=== PATIENT | female | born 1950 | race Caucasian/White ===

== ENCOUNTER 2016-04-22 09:48 | Emergency (ER) | payer BC ==
[~2016-04-22] VITALS: Ht 162.6 cm; Wt 137.8 kg
[~2016-04-22 09:48] MED LIST: ACET650T82 PO; ALBU0.08 INH; ALBU1AER9 INH; ARTIOIN2; ATOR-24 PO; CERTKIT SC; CHOL1TAB42 PO; CYAN100028 PO; DICL1GEL28 EXT; FENO145T26 PO; FERR325T51 PO; FLUT0.15 NAE; GABA1CAP5 PO; HYDR200T5 PO; INSDGI SC; LATA0.009 OPB; METHOTREXATE SC; POTA1TAB97 PO; TIMO0.5S2 OPB; TRAM-10 PO
[2016-04-22 09:55] VITALS: Ht 162.6 cm; Wt 137.8 kg
[2016-04-22] MEDS ORDERED: ONDANSETRON INJ 2 MG/ML 2 ML VIAL IV STA (10:02)
[2016-04-22] MEDS ORDERED: ALBUT/IPRATROP 3MG/0.5MG NEB 3 ML VIAL INH STA (10:02)
[2016-04-22 10:15] LABS: BASO % 0.5 %; BASO ABS # 0.03 K/uL (0-0.2); COMPLETE YES; EOS % 0.9 %; HEMATOCRIT 38.8 % (37-47); IG% 0.8 %; LYMPH % 7.4 %; LYMPH ABS # 0.47 K/uL (1.2-3.4); MEAN CELL VOLUME 92.2 fL (80-100); MEAN CORPUSCULAR HEMOGLOBIN 30.9 pg (25-34); MEAN CORPUSCULAR HGB CONC 33.5 g/dl (32-36); MEAN PLATELET VOLUME 10.1 fL (7.4-10.4); MONO % 15.3 %; NEUT % 75.1 %; PLATELET COUNT 148 K/uL (130-400); RED BLOOD COUNT 4.21 M/uL (4.2-5.4); WHITE BLOOD COUNT 6.35 K/uL (4.8-10.8)
[2016-04-22 10:30] LABS: PARTIAL THROMBOPLASTIN RATIO 1.2; PROTHROMBIN TIME (PATIENT) 10.8 SECONDS (9.0-12.0)
[2016-04-22 10:33] LABS: BLOOD UREA NITROGEN 14 mg/dl (7-18); GLUCOSE 176 mg/dl (70-99)
[2016-04-22 10:34] LABS: ALT/SGPT 28 U/L (12-78); AST/SGOT 18 U/L (15-37); BUN/CREATININE RATIO 14.6 (10-20); CALCIUM 9.1 mg/dl (8.5-10.1); CARBON DIOXIDE 26 mmol/L (21-32); CHLORIDE 101 mmol/L (98-107); CREATININE 0.97 mg/dl (0.60-1.20); POTASSIUM 3.7 mmol/L (3.5-5.1); SODIUM 137 mmol/L (136-145)
[2016-04-22 10:38] LABS: ALKALINE PHOSPHATASE 50 U/L (45-117)
--- NOTE | 2016-04-22 11:27 | DIAGNOSTIC IMAGING REPORT ---
CHEST AND ABDOMEN 2 VIEWS HISTORY: Vomiting. Short of breath. COMPARISON: Chest 03/20/2013. FINDINGS: The heart is mildly enlarged. There is progressive interstitial and vascular thickening consistent with mild congestive change. No pleural effusions. No pneumothorax. No new focal lung consolidations. No pneumoperitoneum. No pneumatosis. Surgical clips within the right upper quadrant. Multiple mildly dilated air-filled loops of large small bowel seen throughout the abdomen. There is a small amount of gas within the rectum. Therefore, these findings favor an ileus. No renal or ureteral calculi. Gas-filled mildly distended stomach. IMPRESSION: 1. Mild cardiomegaly with mild central pulmonary vascular congestion. 2. Multiple mildly dilated air-filled loops of large and small bowel seen throughout the abdomen. The stomach is also mildly distended and gas-filled. Findings favor an ileus. Electronically signed by: Nathan Bonilla M.D. 04/22/2016 11:25 AM Dictated Date/Time: 04/22/2016 11:23 AM
[2016-04-22 11:40] VITALS: O2SAT 95
[2016-04-22] MEDS ORDERED: OSELTAMIVIR PHOSPHATE 75 MG CAP PO STA (12:43)
[2016-04-22] MEDS ORDERED: OSEL75CA12 PO (12:47)
[2016-04-22] MEDS ORDERED: VNTHFA/IN INH (12:47)
[2016-04-22] MEDS ORDERED: ONDA4TAB10 SL (12:47)
[2016-04-22 12:48] VITALS: TEMP 37
[2016-04-22 13:24] VITALS: BP 144/68; PULSE 71; O2SAT 95
--- NOTE | 2016-04-22 13:27 | EMERGENCY ROOM VISIT NOTE ---
History Report prepared by Jeremy: Fannie Smalls Under the Supervision of: Dr. Srini Pedraza D.O. First contact with patient: 09:56 Chief Complaint: SHORTNESS OF BREATH Stated Complaint: SHORTNESS OF BREATH History of Present Illness The patient is a 66 year old female who presents to the Emergency Room with complaints of increased cough and shortness of breath since yesterday. Currently , while sitting up right, the patient is in mild discomfort, however, her symptoms become worse with exertion and when attempting to lay flat. Since the time of onset, the patient has also felt nauseous and vomited several times yesterday. She has not been able to eat anything secondary to her discomfort, however, she has continued to dry heave today. Patient also notes perceived fevers and states that she has had increased frequency of urination, but she denies dysuria or hematuria. She states that she was experiencing mild, nonradiating chest pain last evening, but it has since resolved. Patient notes that her has recently been ill with similar symptoms, but not as severe. She denies headache, sore throat, back pain, abdominal pain, diarrhea, melena, hematochezia, numbness or swelling to her extremities. Source of History: patient Onset: yesterday Position: chest Symptom Intensity: mild Quality: other (cough) Timing: other (increased) Modifying Factors (Worsening): exertion, other (laying flat) Associated Symptoms: + SOB, + chest pain (now resolved), + cough, + fevers, + nausea, + urinary symptoms, + vomiting, No abdominal pain, No back pain, No diarrhea, No headache, No hematochezia, No melena, No sorethroat Review of Systems See HPI for pertinent positives & negatives. A total of 10 systems reviewed and were otherwise negative. Past Medical & Surgical Medical Problems: (1) ACUTE PANCREATITIS (2) BODY MASS INDEX 39.0-39.9, ADULT (3) Chronic kidney disease stage 3 (4) DIAB RADHA WO COMPL, TYPE II OR UNSPEC TYPE, NOT UNCNTRLD (5) Diabetic neuropathy (6) Diabetic retinopathy (7) Goiter (8) HYPERLIPIDEMIA NEC/NOS (9) HYPERTENSION NOS (10) Iron deficiency anemia (11) LUMBAR DISC DISPLACEMENT (12) Lymphedema (13) Papillary thyroid carcinoma (14) PNEUMONIA, ORGANISM NOS (15) Posterior vitreous detachment (16) Rheumatoid arthritis (17) s/p appendectomy (18) s/p cataract surgery (19) s/p cholecystectomy (20) s/p MARLIN / BSO (21) URIN TRACT INFECTION NOS Social History Smoking Status: Never Smoker Drug Use: none Marital Status: Housing Status: lives with family Occupation Status: disabled Current/Historical Medications Scheduled Albuterol Hfa (Ventolin Hfa), 1 PUFF INH Q4 Amitriptyline Hcl (Elavil), 75 MG PO HS Artificial Tear Ointment (Refresh Lacri-Lube), UD Aspirin (Aspirin Ec), 81 MG PO HS Aspirin-Dipyridamole 25MG/200MG (Aggrenox 200MG/25MG), 1 CAPSULE PO BID Atorvastatin (Lipitor), 40 MG PO HS Brimonidine Tartrate (Alphagan P Oph), 1 DROPS OPB BID Certolizumab Pegol (Cimzia), 2 ML SC EVERY 30 DAYS Cholecalciferol (Vitamin D), 1 TAB PO WK Cyanocobalamin (Vitamin B12 Tr), 1,500 MCG PO QPM Estrogens, Conjugated (Premarin), 0.45 MG PO QAM Fenofibrate (Tricor ), 145 MG PO QAM Ferrous Sulfate (Iron Supplement), 1 TAB PO QAM Gabapentin (Neurontin), 400 MG PO TID Hydroxychloroquine Sulfate (Plaquenil), 2 TAB PO HS Insulin Glargine (Lantus), 80 UNITS SC BID Insulin Lispro (Human) (Humalog), 1 DOSE SC TID Latanoprost 0.005% Oph (Xalatan 0.005% Oph), 1 DROP OPB HS Levothyroxine Sodium (Levothyroxine Sodium), 1 TAB PO QAM Multivitamin (Multivitamin), 1 TAB PO DAILY AT LUNCH Nitroglycerin (Nitrostat), 0.4 MG UT PRN Omeprazole (Prilosec), 20 MG PO QAM Ondasetron Odt (Zofran Odt), 4 MG SL Q6H Oseltamivir (Tamiflu), 75 MG PO BID Pancrelipase (Lipase-Protease- (Creon), 1 CAP PO ACHS Potassium Chloride (K-Tab), 1 TAB PO BID Timolol Gfs 0.5% Oph (Timoptic-Xe 0.5% Oph), 1 DROP OPB BID Torsemide (Demadex), 2 TAB PO QAM [Methotrexate], 0.6 ML SC WK Scheduled PRN Acetaminophen (Tylenol Arthritis Pain), 650 MG PO UD PRN for PRN Albuterol (Proair Hfa), 2 PUFFS INH QID PRN for Shortness of Breath Albuterol Soln (Proventil 0.083% 2.5MG/3ML), 2.5 MG INH QID PRN for Shortness of Breath Artificial Saliva (Biotene Moisturizing Mout), 1 SPRAY PO QID PRN for PRN Fluticasone Propionate (Nasal) (Flonase Allergy Relief), 2 SPRAY HANSA DAILY PRN for PRN Ipratropium-Albuterol (Duoneb), 1 TREATMENT INH Q4H PRN for Shortness of Breath Lorazepam (Ativan), 0.5 MG PO TID PRN for Anxiety Meclizine Hcl (Meclizine Hcl), 1 TAB PO TID PRN for Dizziness or Vertigo Allergies Coded Allergies: Sulfa Drugs (Verified Allergy, Intermediate, RASH, 04/22/16) RASH Butorphanol (Unverified Allergy, Mild, RAPID HEART, 04/22/16) Sulfamethoxazole (Unverified Allergy, Mild, 04/22/16) Trimethoprim (Unverified Allergy, Mild, 04/22/16) Cephalexin (Unverified Allergy, Unknown, EDEMA, 04/22/16) Cephalosporins (Verified Allergy, Unknown, CECLOR, 04/22/16) Physical Exam Vital Signs Date Time Temp Pulse Resp B/P Pulse Ox O2 Delivery O2 Flow Rate FiO2 04/22/16 13:24 71 18 144/68 95 04/22/16 12:48 37.0 72 16 139/65 97 Room Air 04/22/16 11:40 95 2.0 04/22/16 11:26 77 19 165/72 92 Room Air 04/22/16 10:43 72 04/22/16 10:07 92 Room Air 04/22/16 10:07 92 Room Air 04/22/16 09:55 37.2 79 24 150/89 92 Room Air 04/22/16 09:55 92 Room Air Physical Exam GENERAL: Patient is awake, alert, and mildly anxious appearing. EARS, NOSE, MOUTH AND THROAT: The nose is without any evidence of any deformity. Mucous membranes are moist tongue is midline NECK: The neck is nontender and supple. RESPIRATORY: Lung sounds diminished throughout. Scattered rhonchi but no conversational dyspnea. CARDIOVASCULAR: Regular rate and rhythm noted there no murmurs rubs or gallops normal S1 normal S2 GASTROINTESTINAL: The abdomen is moderately distended but no specific guarding or rigidity. Bowel sounds are present in all quadrants. MUSCULOSKELETAL/EXTREMITIES: There is no evidence of gross deformity full range of motion is noted in the hips and shoulders SKIN: There is no obvious evidence of any rash. There are no petechiae, pallor or cyanosis noted. Trace pedal edema, bilaterally. NEUROLOGIC: Patient is awake alert and oriented x3. Medical Decision & Procedures ER Provider Diagnostic Interpretation: X-ray results as stated below per interpretation by me and the radiologist. CHEST AND ABDOMEN 2 VIEWS HISTORY: Vomiting. Short of breath. COMPARISON: Chest 03/20/2013. FINDINGS: The heart is mildly enlarged. There is progressive interstitial and vascular thickening consistent with mild congestive change. No pleural effusions. No pneumothorax. No new focal lung consolidations. No pneumoperitoneum. No pneumatosis. Surgical clips within the right upper quadrant. Multiple mildly dilated air-filled loops of large small bowel seen throughout the abdomen. There is a small amount of gas within the rectum. Therefore, these findings favor an ileus. No renal or ureteral calculi. Gas-filled mildly distended stomach. IMPRESSION: 1. Mild cardiomegaly with mild central pulmonary vascular congestion. 2. Multiple mildly dilated air-filled loops of large and small bowel seen throughout the abdomen. The stomach is also mildly distended and gas-filled. Findings favor an ileus. Electronically signed by: Nathan Bonilla M.D. 04/22/2016 11:25 AM Dictated Date/Time: 04/22/2016 11:23 AM Laboratory Results 04/22/16 10:00 Red Blood Count 4.21, Mean Corpuscular Volume 92.2, Mean Corpuscular Hemoglobin 30.9, Mean Corpuscular Hemoglobin Concent 33.5, Mean Platelet Volume 10.1, Neutrophils (%) (Auto) 75.1, Lymphocytes (%) (Auto) 7.4, Monocytes (%) (Auto) 15.3, Eosinophils (%) (Auto) 0.9, Basophils (%) (Auto) 0.5, Neutrophils # (Auto ) 4.77, Lymphocytes # (Auto) 0.47, Monocytes # (Auto) 0.97, Eosinophils # (Auto ) 0.06, Basophils # (Auto) 0.03 04/22/16 10:00 Test 04/22/16 10:00 04/22/16 10:05 White Blood Count 6.35 K/uL (4.8-10.8) Red Blood Count 4.21 M/uL (4.2-5.4) Hemoglobin 13.0 g/dL (12.0-16.0) Hematocrit 38.8 % (37-47) Mean Corpuscular Volume 92.2 fL (80-100) Mean Corpuscular Hemoglobin 30.9 pg (25-34) Mean Corpuscular Hemoglobin Concent 33.5 g/dl (32-36) Platelet Count 148 K/uL (130-400) Mean Platelet Volume 10.1 fL (7.4-10.4) Neutrophils (%) (Auto) 75.1 % Lymphocytes (%) (Auto) 7.4 % Monocytes (%) (Auto) 15.3 % Eosinophils (%) (Auto) 0.9 % Basophils (%) (Auto) 0.5 % Neutrophils # (Auto) 4.77 K/uL (1.4-6.5) Lymphocytes # (Auto) 0.47 K/uL (1.2-3.4) Monocytes # (Auto) 0.97 K/uL (0.11-0.59) Eosinophils # (Auto) 0.06 K/uL (0-0.5) Basophils # (Auto) 0.03 K/uL (0-0.2) RDW Standard Deviation 46.2 fL (36.4-46.3) RDW Coefficient of Variation 13.7 % (11.5-14.5) Immature Granulocyte % (Auto) 0.8 % Immature Granulocyte # (Auto) 0.05 K/uL (0.00-0.02) Prothrombin Time 10.8 SECONDS (9.0-12.0) Prothromb Time International Ratio 1.0 (0.9-1.1) Activated Partial Thromboplast Time 30.1 SECONDS (21.0-31.0) Partial Thromboplastin Ratio 1.2 Anion Gap 10.0 mmol/L (3-11) Est Creatinine Clear Calc Drug Dose 79.2 ml/min Estimated GFR () 70.5 Estimated GFR (Non- 60.9 BUN/Creatinine Ratio 14.6 (10-20) Calcium Level 9.1 mg/dl (8.5-10.1) Total Bilirubin 0.4 mg/dl (0.2-1) Aspartate Amino Transf (AST/SGOT) 18 U/L (15-37) Alanine Aminotransferase (ALT/SGPT) 28 U/L (12-78) Alkaline Phosphatase 50 U/L (45-117) Troponin I < 0.015 ng/ml (0-0.045) Pro-B-Type Natriuretic Peptide 619 pg/ml (0-900) Total Protein 6.9 gm/dl (6.4-8.2) Albumin 3.5 gm/dl (3.4-5.0) Globulin 3.4 gm/dl (2.5-4.0) Albumin/Globulin Ratio 1.0 (0.9-2) Influenza Type A Antigen POS for Influ A (NEG) Influenza Type B Antigen Neg for Influ B (NEG) Bedside Lactic Acid Venous 1.08 mmol/L (0.90-1.70) Laboratory results per my review. Medications Administered Medications (Trade) Dose Ordered Sig/Travis Route Start Time Stop Time Status Last Admin Dose Admin Ondansetron HCl (Zofran Inj) 4 mg NOW STAT IV 04/22/16 10:02 04/22/16 10:03 DC 04/22/16 10:18 4 MG Albuterol/ Ipratropium (Duoneb) 3 ml NOW STAT INH 04/22/16 10:02 04/22/16 10:03 DC 04/22/16 10:18 3 ML Oseltamivir Phosphate (Tamiflu Cap) 75 mg ONE STAT PO 04/22/16 12:43 04/22/16 12:44 DC 04/22/16 12:58 75 MG ECG Indication: SOB/dyspnea Rate (beats per minute): 76 Findings: ST depression (Lateral), no ectopy Change: no significant change (when compared to EKG from 03/23/10.) ED Course 0957: The patient was evaluated in room A4. A complete history and physical examination were performed. 1002: DuoNeb 3 ml INH and Zofran 4 mg IV were ordered. 1243: Upon reevaluation, the patient was doing well and appeared to be resting more comfortably. I updated her on the results of her radiology reports and lab tests. Tamiflu cap 75 mg PO was ordered. Discharge instructions were also discussed at this time. She verbalized her understanding and agreement with the treatment plan, and she is now ready for disposition. Medical Decision Differential diagnosis: Etiologies such as infections, reactive airway disease, pneumonia, pneumothorax , COPD, CHF, cardiac ischemia, pulmonary embolism, musculoskeletal, gastrointestinal, as well as others were entertained. Nursing notes reviewed. Additional history is obtained from the patient's significant other. The patient is a 66-year-old female who presented to the emergency department for an evaluation of cough nausea and vomiting. The patient was found have a positive flu swab. The patient was treated with IV fluids and IV antiemetics in emergency department. She was also started on Tamiflu. I discussed the patient' s laboratory and radiographic studies with her. She was encouraged to rest and avoid any strenuous activity. She was also encouraged to follow-up with her family doctor as soon as possible but return to the emergency department immediately if symptoms change worsen or the need arises. Impression Primary Impression: Influenza Additional Impression: N&V (nausea and vomiting) Scribe Attestation The scribe's documentation has been prepared under my direction and personally reviewed by me in its entirety. I confirm that the note above accurately reflects all work, treatment, procedures, and medical decision making performed by me. Departure Information Dispostion Home / Self-Care Prescriptions Ondasetron Odt (ZOFRAN ODT) 4 Mg Tab 4 MG SL Q6H for Nausea, #15 TAB Prov: Srini Pedraza, DO 04/22/16 Albuterol Hfa (VENTOLIN HFA) 200 Puffs/91229 Mcg Aers 1 PUFF INH Q4, #1 INHALER Prov: Srini Pedraza, DO 04/22/16 Oseltamivir (Tamiflu) 75 Mg Cap 75 MG PO BID, #10 CAP Prov: Srini Pedraza, DO 04/22/16 Referrals David Umanzor M.D. (PCP) Forms HOME CARE DOCUMENTATION FORM, IMPORTANT VISIT INFORMATION Patient Instructions A Signature Page, [facility] Additional Instructions Call your family Dr. to schedule a follow-up appointment. Rest and avoid any strenuous activity. Drink plenty clear liquids. Continue all medications as prescribed. Problem Qualifiers
[2016-12-24] MEDS ORDERED: ASPI81TA28 PO (00:12)
[2016-12-24] MEDS ORDERED: TORS10TA14 PO (15:44)
[2016-12-24] MEDS ORDERED: NTRGSL/4 UT (15:44)
[2016-12-24] MEDS ORDERED: LORA-741 PO (15:44)
[2016-12-24] MEDS ORDERED: ARTISPR PO (15:44)
[2016-12-24] MEDS ORDERED: PANC6000 PO (15:44)
[2016-12-24] MEDS ORDERED: BRIM0.1S OPB (15:44)
[2016-12-24] MEDS ORDERED: IPRASOL4 INH (15:44)
[2016-12-24] MEDS ORDERED: OMEP20CA9 PO (15:44)
[2016-12-24] MEDS ORDERED: MULT-506 PO (15:44)
[2016-12-24] MEDS ORDERED: INSU100I SC (15:44)
[2016-12-24] MEDS ORDERED: PRM/45 PO (15:44)
[2016-12-24] MEDS ORDERED: LEVO125T4 PO (15:44)
[2016-12-24] MEDS ORDERED: MECL1TAB42 PO (15:44)
[2016-12-24] MEDS ORDERED: AGG PO (16:37)
== END 2016-04-22 13:24 | disposition home or self-care (01) ==
LOC: EDBD 09:48 → C.EDA 09:49
DX: J09.X2 Influenza due to identified novel influenza A virus with other respiratory manifestations (principal); E11.319 Type 2 diabetes mellitus with unspecified diabetic retinopathy without macular edema; E11.40 Type 2 diabetes mellitus with diabetic neuropathy, unspecified; E11.29 Type 2 diabetes mellitus with other diabetic kidney complication; Z79.4 Long term (current) use of insulin; Z79.82 Long term (current) use of aspirin; M06.9 Rheumatoid arthritis, unspecified; E78.5 Hyperlipidemia, unspecified; I12.9 Hypertensive chronic kidney disease with stage 1 through stage 4 chronic kidney disease, or unspecified chronic kidney disease; N18.3 Chronic kidney disease, stage 3 (moderate)

== ENCOUNTER 2016-12-24 17:17 | Emergency (ER) | payer BC ==
[~2016-12-24] VITALS: Ht 163.8 cm; Wt 132.7 kg
[~2016-12-24 17:17] MED LIST changes: +AGG PO; +ARTISPR PO; +ASPI81TA28 PO; +BRIM0.1S OPB; -DICL1GEL28 EXT; +INSU100I SC; +IPRASOL4 INH; +LEVO125T4 PO; +LORA-741 PO; +MECL1TAB42 PO; +MULT-506 PO; +NTRGSL/4 UT; +OMEP20CA9 PO; +PANC6000 PO; +PRM/45 PO; +TORS10TA14 PO; -TRAM-10 PO
[2016-12-24 17:20] VITALS: TEMP 36.7; Ht 163.8 cm; Wt 132.7 kg
[2016-12-24] MEDS ORDERED: CERT200K SC (18:23)
[2016-12-24] MEDS ORDERED: OXYC-609 PO (18:23)
[2016-12-24] MEDS ORDERED: ATRO1SOL13 OPR (18:23)
[2016-12-24] MEDS ORDERED: PLQ200 PO (18:23)
--- NOTE | 2016-12-24 18:27 | DIAGNOSTIC IMAGING REPORT ---
Supine abdomen 6 views CLINICAL HISTORY: ? retained/broken 31g x5/16 lantus pen tip (RLQ region) FOREIGN BODY COMPARISON STUDY: 04/22/2016 FINDINGS: There is no pathologic bowel dilatation. There are surgical clips within the right upper quadrant. Degenerative changes are present within the lower lumbar spine. There is a 7 mm opaque density within the superficial soft tissues, lateral to the right iliac crest. IMPRESSION: 1. No acute fractures 2. 7 mm opaque foreign body versus calcification within the superficial soft tissues lateral to the right iliac crest. Electronically signed by: Jad Yu M.D. 12/24/2016 6:26 PM Dictated Date/Time: 12/24/2016 6:21 PM
[2016-12-24] MEDS ORDERED: FLV1 PO (18:36)
[2016-12-24] MEDS ORDERED: LPT40 PO (18:36)
[2016-12-24] MEDS ORDERED: INSDGIPEN SC (18:36)
[2016-12-24] MEDS ORDERED: FERR325T PO (18:36)
[2016-12-24] MEDS ORDERED: DXY50 PO (18:36)
[2016-12-24] MEDS ORDERED: TRC145 PO (18:36)
[2016-12-24] MEDS ORDERED: NRN400 PO (18:36)
[2016-12-24] MEDS ORDERED: VANCOMYCIN OPR (18:49)
[2016-12-24] MEDS ORDERED: ASCO100061 PO (18:49)
[2016-12-24] MEDS ORDERED: [UNRECOGNIZED DRUG - CODE] OPR (18:49)
--- NOTE | 2016-12-24 18:50 | EMERGENCY ROOM VISIT NOTE ---
History First contact with patient: 17:31 Chief Complaint: FOREIGNBODY ANY BODY PART Stated Complaint: NEEDLE TIP STUCK R SIDE OF ABDOMEN History of Present Illness The patient is a 66 year old female who presents to the Emergency Room via private vehicle accompanied by male with complaints of "needle tip stuck right side of abdomen". The patient states that she was administering her Lantus injection this morning around 5:45 AM, into the subcutaneous tissues of her right lower quadrant of her abdomen. She states that when she withdrew the pain , the needle was no longer attached. She notes that she had had to go to an appointment, to have surgery performed on her right eyelid in [facility]. She then states that upon return this evening she ran with that she did not see the needle, and was concerned that maybe still attached/ embedded. She denies any pain. Review of Systems A complete 6-point Review of Systems was discussed with the patient, with pertinent positives and negatives listed in the History of Present Illness. All remaining Review of Systems questions can be considered negative unless otherwise specified. Past Medical/Surgical History Medical Problems: (1) ACUTE PANCREATITIS (2) BODY MASS INDEX 39.0-39.9, ADULT (3) Chronic kidney disease stage 3 (4) DIAB RADHA WO COMPL, TYPE II OR UNSPEC TYPE, NOT UNCNTRLD (5) Diabetic neuropathy (6) Diabetic retinopathy (7) Goiter (8) HYPERLIPIDEMIA NEC/NOS (9) HYPERTENSION NOS (10) Iron deficiency anemia (11) LUMBAR DISC DISPLACEMENT (12) Lymphedema (13) Papillary thyroid carcinoma (14) PNEUMONIA, ORGANISM NOS (15) Posterior vitreous detachment (16) Rheumatoid arthritis (17) s/p appendectomy (18) s/p cataract surgery (19) s/p cholecystectomy (20) s/p MARLIN / BSO (21) URIN TRACT INFECTION NOS Family History No pertinent. Social History Smoking Status: Never Smoker Drug Use: none Marital Status: Housing Status: lives with family Occupation Status: disabled Current/Historical Medications Scheduled Amitriptyline Hcl (Elavil), 75 MG PO HS Ascorbic Acid (Ascorbic Acid), 1,000 MG PO TID Aspirin (Aspirin Ec), 81 MG PO HS Aspirin-Dipyridamole 25MG/200MG (Aggrenox 200MG/25MG), 1 CAPSULE PO BID Atorvastatin (Atorvastatin Calcium), 40 MG PO HS Atropine Sulfate (Atropine Sulfate), 1 DROP OPR BID Brimonidine Tartrate (Alphagan P Oph), 1 DROP OPB BID Certolizumab Pegol (Cimzia), 400 MG SC MONTHLY Cyanocobalamin (Vitamin B12), 1,500 MCG PO DAILY Doxycycline Hyclate (Doxycycline Hyclate), 50 MG PO QAM Ergocalciferol (Vitamin D 31037 Unit), 50,000 INTER.UNIT PO WK Estrogens, Conjugated (Premarin), 0.45 MG PO QAM Fenofibrate (Fenofibrate), 145 MG PO QAM Ferrous Sulfate (Ferrous Sulfate), 325 MG PO QAM Fluticasone Propionate (Fluticasone Propionate), 2 SPRAYS HANSA QAM Folic Acid (Folic Acid), 2 MG PO 6XWK Gabapentin (Gabapentin), 400 MG PO TID Hydroxychloroquine Sulfate (Hydroxychloroquine Sulfat), 400 MG PO HS Insulin Glargine (Lantus Solostar), 80 UNITS SC BID Insulin Lispro (Human) (Humalog), 1 DOSE SC TID Latanoprost 0.005% Oph (Xalatan 0.005% Oph), 1 DROP OPB HS Levothyroxine Sodium (Levothyroxine Sodium), 125 MCG PO QAM Multivitamin (Multivitamin), 1 TAB PO DAILY Omeprazole (Prilosec), 20 MG PO QAM Ophthalmic Irrigation Solution (Balanced Salt Solution), 1 DROP OPR QID Pancrelipase (Lipase-Protease- (Creon), 1 CAP PO ACHS Potassium Chloride (Potassium Chloride ER), 20 MEQ PO BID Torsemide (Demadex), 20 MG PO QAM [Methotrexate], 0.6 ML SC WK [Vancomycin Drops], 1 DROP OPR Q2H Scheduled PRN Acetaminophen (Arthritis Pain Relief), 650 MG PO UD PRN for Arthritis Pain Albuterol Hfa (Ventolin Hfa), 2 PUFFS INH QID PRN for Shortness of Breath Artificial Saliva (Biotene Moisturizing Mout), 1 SPRAY PO QID PRN for Dryness Ipratropium-Albuterol (Duoneb), 1 TREATMENT INH Q4H PRN for Shortness of Breath Lorazepam (Ativan), 0.5 MG PO TID PRN for Anxiety Meclizine Hcl (Meclizine Hcl), 1 TAB PO TID PRN for Dizziness or Vertigo Nitroglycerin (Nitrostat), 0.4 MG UT UD PRN for Chest Pain Oxycodone HCl (Oxycodone HCl), 5 MG PO Q4H PRN for Pain Miscellaneous Medications Timolol Maleate (Timolol 0.5% Oph Soln 15 Ml), 1 DROP OPB Physical Exam Vital Signs Date Time Temp Pulse Resp B/P (MAP) Pulse Ox O2 Delivery O2 Flow Rate FiO2 12/24/16 19:07 72 16 140/55 96 12/24/16 17:20 36.7 83 20 170/52 94 Room Air Physical Exam VITAL SIGNS - Vital signs and nursing notes were reviewed. Stable. Hypertensive. GENERAL -66-year-old female appearing her stated age who is in no acute distress. Communicates well with provider and answers questions appropriately. SKIN - Without rashes. No evidence of infection. No evidence of partially retained foreign body within the right lower quadrant. No tenderness. Medical Decision & Procedures ER Provider Diagnostic Interpretation: Supine abdomen 6 views CLINICAL HISTORY: ? retained/broken 31g x5/16 lantus pen tip (RLQ region) FOREIGN BODY COMPARISON STUDY: 04/22/2016 FINDINGS: There is no pathologic bowel dilatation. There are surgical clips within the right upper quadrant. Degenerative changes are present within the lower lumbar spine. There is a 7 mm opaque density within the superficial soft tissues, lateral to the right iliac crest. IMPRESSION: 1. No acute fractures 2. 7 mm opaque foreign body versus calcification within the superficial soft tissues lateral to the right iliac crest. Electronically signed by: Jad Yu M.D. 12/24/2016 6:26 PM Dictated Date/Time: 12/24/2016 6:21 PM Medical Decision Patient was seen and evaluated as above. She was also seen by the attending physician. She process to us today with potential for retained needle that is the size of 31-gauge, by 08/24. She actually furnishes an example. X-ray was obtained with results as above. Although there is a radiopaque object, this does not fit with the questionable retained foreign body. I suspect this is just a calcification. Case was discussed with the attending physician, who also personally evaluated the patient. She appears stable for discharge, and I suspect that either the needle broke off prior to injection, or what she removed it could've been stuck on her pants and flung across the room. Patient also expressed this potential scenario. She is to watch for signs of infection , and return with worsening. She is to follow-up with her family doctor regarding the orbital blood pressure. She is to return if worsening. She was educated upon worrisome symptoms in which to return, had questions prior to discharge, and was discharged home in good condition. In evaluation treatment this patient the following differential diagnoses radiographs: Radiographs foreign body, among others. Medication Reconcilliation Current Medication List: was personally reviewed by me Blood Pressure Screening Patient's blood pressure: Elevated blood pressure Blood pressure disposition: Elevated BP felt to be situational, Referred to PCP Impression Primary Impression: Foreign body entering through skin Departure Information Dispostion Home / Self-Care Condition GOOD Referrals David Umanzor M.D. (PCP) Patient Instructions My [facility] Additional Instructions You were seen in the emergency Department for a potential needle embedded in your abdomen. X-ray does not show any needle. Please watch for signs of infection to include redness, swelling, drainage. If these are to develop please return immediately. Please follow-up with your family doctor regarding your high blood pressure here today Please return with any new/concerning symptoms.
--- NOTE | 2016-12-24 18:51 | EMERGENCY ROOM VISIT NOTE ---
ED Visit Note First contact with patient: 17:31 The patient was seen and examined with Jt Heredia PA-C. I agree with the history, physical and findings. Please see the note for disposition and details.
[2016-12-24 19:07] VITALS: BP 140/55; PULSE 72; O2SAT 96
[2016-12-24] MEDS ORDERED: MCRK/20 PO (19:12)
[2016-12-24] MEDS ORDERED: TMPOPS15 OPB (19:12)
[2016-12-24] MEDS ORDERED: ERGO1CAP41 PO (19:12)
[2016-12-24] MEDS ORDERED: VNTHFA/IN INH (19:12)
[2016-12-24] MEDS ORDERED: ACET650T49 PO (19:12)
[2016-12-24] MEDS ORDERED: FLNIN/ NAE (19:12)
[2016-12-24] MEDS ORDERED: CYAN100020 PO (19:14)
[2016-12-24] MEDS ORDERED: XLTOPS OPB (19:21)
[2016-12-24] MEDS ORDERED: MTHI50 SC (19:25)
[2016-12-24] MEDS ORDERED: AMIT75TA2 PO (22:29)
== END 2016-12-24 19:08 | disposition home or self-care (01) ==
LOC: C.EDB 17:18 → C.EDD 19:08
DX: S30.851A Superficial foreign body of abdominal wall, initial encounter (principal); W45.8XXA Other foreign body or object entering through skin, initial encounter; Y93.89 Activity, other specified; N18.3 Chronic kidney disease, stage 3 (moderate); E11.22 Type 2 diabetes mellitus with diabetic chronic kidney disease; E11.43 Type 2 diabetes mellitus with diabetic autonomic (poly)neuropathy; E11.319 Type 2 diabetes mellitus with unspecified diabetic retinopathy without macular edema; E04.9 Nontoxic goiter, unspecified; I12.9 Hypertensive chronic kidney disease with stage 1 through stage 4 chronic kidney disease, or unspecified chronic kidney disease; Z85.850 Personal history of malignant neoplasm of thyroid; Z87.01 Personal history of pneumonia (recurrent); M06.9 Rheumatoid arthritis, unspecified; Z98.49 Cataract extraction status, unspecified eye; Z90.49 Acquired absence of other specified parts of digestive tract; Z90.710 Acquired absence of both cervix and uterus; Z87.440 Personal history of urinary (tract) infections; Z79.82 Long term (current) use of aspirin; Z79.4 Long term (current) use of insulin

== ENCOUNTER 2017-04-10 11:23 | Inpatient (IN) | payer BC, OTHER ==
[~2017-04-10] VITALS: Ht 167.6 cm; Wt 136.5 kg
[~2017-04-10 11:23] MED LIST changes: +ACET650T49 PO; -ACET650T82 PO; -ALBU0.08 INH; -ALBU1AER9 INH; +AMIT75TA2 PO; -ARTIOIN2; +ASCO100061 PO; -ATOR-24 PO; +ATRO1SOL13 OPR; +CERT200K SC; -CERTKIT SC; -CHOL1TAB42 PO; +CYAN100020 PO; -CYAN100028 PO; +DXY50 PO; +ERGO500011 PO; -FENO145T26 PO; +FERR1TAB62 PO; -FERR325T51 PO; +FLNIN/ NAE; -FLUT0.15 NAE; +FLV1 PO; -GABA1CAP5 PO; -HYDR200T5 PO; -INSDGI SC; +INSDGIPEN SC; -LATA0.009 OPB; -LEVO125T4 PO; +LEVO125T5 PO; +LPT40 PO; +MCRK/20 PO; -METHOTREXATE SC; +MTHI50 SC; +NRN400 PO; +OXYC-609 PO; +PLQ200 PO; -POTA1TAB97 PO; -TIMO0.5S2 OPB; +TMPOPS15 OPB; +TRC145 PO; +VANCOMYCIN OPR; +VNTHFA/IN INH; +XLTOPS OPB; +[UNRECOGNIZED DRUG - CODE] OPR
[2017-04-10 12:09] LABS: BASO % 0.2 %; BASO ABS # 0.02 K/uL (0-0.2); EOS % 1.1 %; EOS ABS # 0.11 K/uL (0-0.5); HEMATOCRIT 37.6 % (37-47); HEMOGLOBIN 11.5 g/dL (12.0-16.0); IG# 0.04 K/uL (0.00-0.02); LYMPH % 8.9 %; LYMPH ABS # 0.93 K/uL (1.2-3.4); MEAN CELL VOLUME 90.6 fL (80-100); MEAN CORPUSCULAR HEMOGLOBIN 27.7 pg (25-34); MEAN CORPUSCULAR HGB CONC 30.6 g/dl (32-36); MEAN PLATELET VOLUME 10.6 fL (7.4-10.4); MONO % 7.7 %; NEUT % 81.7 %; NEUT ABS # 8.51 K/uL (1.4-6.5); PLATELET COUNT 239 K/uL (130-400); RED CELL DISTRIBUTION WIDTH CV 14.6 % (11.5-14.5); RED CELL DISTRIBUTION WIDTH SD 48.6 fL (36.4-46.3); WHITE BLOOD COUNT 10.41 K/uL (4.8-10.8)
[2017-04-10] MEDS ORDERED: INSU100I SC ×2 (12:09)
[2017-04-10] MEDS ORDERED: INSU100I SQ (12:09)
[2017-04-10] MEDS ORDERED: [UNRECOGNIZED DRUG - CODE] PO (12:09)
[2017-04-10] MEDS ORDERED: ARTI1SPR3 PO (12:09)
[2017-04-10] MEDS ORDERED: PRED-301 PO (12:09)
[2017-04-10 12:15] LABS: PTT PATIENT 27.3 SECONDS (21.0-31.0)
[2017-04-10 12:26] LABS: ALBUMIN 3.4 gm/dl (3.4-5.0); ALT/SGPT 31 U/L (12-78); BLOOD UREA NITROGEN 24 mg/dl (7-18); CALCIUM 9.2 mg/dl (8.5-10.1); CARBON DIOXIDE 33 mmol/L (21-32); CREATININE 1.23 mg/dl (0.60-1.20); GLUCOSE 66 mg/dl (70-99); LIPASE 119 U/L (73-393); POTASSIUM 3.3 mmol/L (3.5-5.1); SODIUM 142 mmol/L (136-145)
[2017-04-10 12:35] LABS: ALKALINE PHOSPHATASE 71 U/L (45-117); AST/SGOT 30 U/L (15-37); CKMB 1.5 ng/ml (0.5-3.6); TOTAL PROTEIN 7.5 gm/dl (6.4-8.2)
--- NOTE | 2017-04-10 12:37 | DIAGNOSTIC IMAGING REPORT ---
CHEST ONE VIEW PORTABLE CLINICAL HISTORY: EVALUATE ALTERED MENTAL STATUS/WEAKNESS dyspnea COMPARISON STUDY: 04/22/2016 FINDINGS: Moderate cardiomegaly. Prominent pulmonary vasculature. Diaphragms are smooth. Mild chronic elevation right hemidiaphragm. IMPRESSION: Congestive heart failure The above report was generated using voice recognition software. It may contain grammatical, syntax or spelling errors. Electronically signed by: Wood Barclay M.D. 04/10/2017 12:35 PM Dictated Date/Time: 04/10/2017 12:35 PM
--- NOTE | 2017-04-10 12:48 | DIAGNOSTIC IMAGING REPORT ---
HEAD WITHOUT CONTRAST (CT) CT DOSE: 1274.60 mGy.cm HISTORY: Mental status change EVALUATE ALTERED MENTAL STATUS/WEAKNESS TECHNIQUE: Multiaxial CT images of the head were performed without the use of intravenous contrast. A dose lowering technique was utilized adhering to the principles of ALARA. Comparison: 10/03/2013 Findings: The paranasal sinuses and mastoid air cells are clear. The calvarium and skull base are intact. The ventricles and sulci are within normal limits. There is no mass, hematoma, midline shift, or acute infarct. Mild age-related atrophy and chronic small vessel change. Impression: No acute intracranial abnormality. Age-related change. The above report was generated using voice recognition software. It may contain grammatical, syntax or spelling errors. Electronically signed by: Wood Barclay M.D. 04/10/2017 12:47 PM Dictated Date/Time: 04/10/2017 12:46 PM
[2017-04-10] MEDS ORDERED: CEFTRIAXONE SOD INJ 1 GM ADDVIAL IV STA (13:24)
[2017-04-10] MEDS ORDERED: GLUCOSE 40% GEL 15 GM TUBE PO PRN (14:30)
[2017-04-10] MEDS ORDERED: ONDANSETRON INJ 2 MG/ML 2 ML VIAL IV PRN (14:30)
[2017-04-10] MEDS ORDERED: GLUCAGON FOR INJ 1 MG VIAL SQ PRN (14:30)
[2017-04-10] MEDS ORDERED: GLUCOSE 10 TABS/TUBE PO PRN (14:30)
[2017-04-10] MEDS ORDERED: DEXTROSE 50% 50 ML SYR IV PRN (14:30)
--- NOTE | 2017-04-10 14:40 | EMERGENCY ROOM VISIT NOTE ---
History Report prepared by Jeremy: Domitila Carter Under the Supervision of: Dr. Manuel Serna D.O. 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 Per EMS, the patient stated she was recently prescribed antibiotics and Ativan. The patient recently had an operation on her right eye. 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 Per EMS, the patient took the Ativan thinking it was her antibiotics. The Ativan was filled April 06, 2017 with 40 0.5mg tablets and is now empty. Per , the patient stated, I think I took too many Ativan. Per , the patient usually has her daily medication in a pill separator, though her Ativan was not placed in the separator because it is an as needed prescription. The stated that the patient has a history of depression and anxiety. The reported that he did not see any Ativan pills in the bottle. It is unknown how many pills she consumed. The patient is incoherent. The HPI is limited secondary to patient's condition. Source of History: patient, spouse/significant other, EMS History Limited By: other (The patient is incoherent) Onset: 67 Position: other (global ) Quality: other (Ativan overdose) Timing: other (episodic) Note: The patient has a history of depression and anxiety. Review of Systems The ROS is limited secondary to patient's condition. Past Medical & Surgical Medical Problems: (1) ACUTE PANCREATITIS (2) Altered mental state (3) BODY MASS INDEX 39.0-39.9, ADULT (4) Chronic kidney disease stage 3 (5) DIAB RADHA WO COMPL, TYPE II OR UNSPEC TYPE, NOT UNCNTRLD (6) Diabetic neuropathy (7) Diabetic retinopathy (8) Goiter (9) HYPERLIPIDEMIA NEC/NOS (10) HYPERTENSION NOS (11) Iron deficiency anemia (12) LUMBAR DISC DISPLACEMENT (13) Lymphedema (14) Papillary thyroid carcinoma (15) PNEUMONIA, ORGANISM NOS (16) Posterior vitreous detachment (17) Rheumatoid arthritis (18) s/p appendectomy (19) s/p cataract surgery (20) s/p cholecystectomy (21) s/p MARLIN / BSO (22) URIN TRACT INFECTION NOS Family History No pertinent family history obtained. Social History Smoking Status: Never Smoker Drug Use: none Marital Status: Housing Status: lives with family Occupation Status: disabled Current/Historical Medications Scheduled Amitriptyline Hcl (Elavil), 75 MG PO HS Artificial Saliva (Oral Relief [place] For Dry), 1 SPRAY PO QID Ascorbic Acid (Ascorbic Acid), 1,000 MG PO TID Aspirin (Aspirin Ec), 81 MG PO HS Aspirin-Dipyridamole 25MG/200MG (Aggrenox 200MG/25MG), 1 CAPSULE PO BID Atorvastatin (Atorvastatin Calcium), 40 MG PO HS Brimonidine Tartrate (Alphagan P Oph), 1 DROP OPB BID Certolizumab Pegol (Cimzia), 400 MG SC MONTHLY Cyanocobalamin (Vitamin B12), 1,500 MCG PO DAILY Ergocalciferol (Vitamin D 80197 Unit), 50,000 INTER.UNIT PO WK Estrogens, Conjugated (Premarin), 0.45 MG PO QAM Fenofibrate (Fenofibrate), 145 MG PO QAM Ferrous Sulfate (Ferrous Sulfate), 325 MG PO QAM Fluticasone Propionate (Fluticasone Propionate), 2 SPRAYS HANSA QAM Folic Acid (Folic Acid), 2 MG PO 6XWK Gabapentin (Gabapentin), 400 MG PO TID Hydroxychloroquine Sulfate (Hydroxychloroquine Sulfat), 400 MG PO HS Insulin Glargine (Lantus Solostar), 80 UNITS SC BID Insulin Lispro (Human) (Humalog), 60 UNITS SC DAILYBB Insulin Lispro (Human) (Humalog), 50 UNITS SQ DAILYBL Insulin Lispro (Human) (Humalog), 70 UNITS SC DAILYBD Levothyroxine Sodium (Levothyroxine Sodium), 125 MCG PO QAM Methotrexate (Methotrexate Sodium), 15 MG SC HOLD Multivitamin (Multivitamin), 1 TAB PO DAILY Omeprazole (Prilosec), 20 MG PO QAM Pancrelipase (Lipase-Protease- ([place] [address] Unit), 1 TAB PO ACHS Potassium Chloride (Potassium Chloride ER), 20 MEQ PO BID Prednisone (Prednisone), 5 MG PO DAILY Torsemide (Demadex), 20 MG PO QAM Scheduled PRN Acetaminophen (Arthritis Pain Relief), 650 MG PO UD PRN for Arthritis Pain Albuterol Hfa (Ventolin Hfa), 2 PUFFS INH QID PRN for Shortness of Breath Ipratropium-Albuterol (Duoneb), 1 TREATMENT INH Q4H PRN for Shortness of Breath Lorazepam (Ativan), 0.5 MG PO TID PRN for Anxiety Meclizine Hcl (Meclizine Hcl), 25 MG PO TID PRN for Dizziness or Vertigo Nitroglycerin (Nitrostat), 0.4 MG UT UD PRN for Chest Pain Miscellaneous Medications Insulin Lispro (Human) (Humalog), UNITS SC Allergies Coded Allergies: Sulfa Drugs (Verified Allergy, Intermediate, RASH, 04/10/17) RASH Butorphanol (Verified Allergy, Mild, RAPID HEART, 04/10/17) Sulfamethoxazole (Verified Allergy, Mild, 04/10/17) Trimethoprim (Verified Allergy, Mild, 04/10/17) Cephalexin (Verified Allergy, Unknown, EDEMA, 04/10/17) Cephalosporins (Verified Allergy, Unknown, CECLOR, 04/10/17) Physical Exam Vital Signs Date Time Temp Pulse Resp B/P (MAP) Pulse Ox O2 Delivery O2 Flow Rate FiO2 04/10/17 13:31 139/71 04/10/17 13:28 71 19 98 04/10/17 13:23 65 20 99 04/10/17 13:18 59 18 100 04/10/17 13:16 134/75 04/10/17 13:13 63 19 100 04/10/17 13:08 62 17 100 04/10/17 13:03 68 18 98 04/10/17 13:01 125/87 04/10/17 12:58 66 18 100 04/10/17 12:53 68 16 100 04/10/17 12:48 66 22 100 04/10/17 12:47 145/72 04/10/17 12:28 64 18 100 04/10/17 12:23 62 18 100 04/10/17 12:18 64 18 100 04/10/17 12:16 143/80 04/10/17 12:13 75 23 100 04/10/17 12:08 72 20 100 04/10/17 12:04 68 04/10/17 12:03 66 19 100 04/10/17 12:01 134/62 12/31/17 11:58 67 17 100 04/10/17 11:53 66 18 127/67 100 04/10/17 11:48 66 17 100 04/10/17 11:44 70 24 133/73 100 Nasal Cannula 2.0 04/10/17 11:43 65 20 100 04/10/17 11:38 66 18 100 04/10/17 11:33 67 18 100 04/10/17 11:28 133/73 Physical Exam CONSTITUTIONAL/VITAL SIGNS: Reviewed / noted above. GENERAL: Non-toxic in appearance. INTEGUMENTARY: Warm, dry, and [place]. HEAD: Normocephalic. EYES: without scleral icterus or trauma. ENT/OROPHARYNX: clear and moist. LYMPHADENOPATHY/NECK: Is supple without lymphadenopathy or meningismus. RESPIRATORY: Lungs clear and equal. CARDIOVASCULAR: Regular rate and rhythm. GI/ABDOMEN: Soft and nontender. No organomegaly or pulsatile mass. No rebound or guarding. Normal bowel sounds. EXTREMITIES: Warm and well perfused. BACK: No CVA tenderness. NEUROLOGICAL: Somnolent, but arousal to verbal stimuli. Slurred speech. Generalized weakness. MUSCULOSKELETAL: Normally developed with good muscle tone. Medical Decision & Procedures ER Provider Diagnostic Interpretation: Radiology results as stated below per my review and radiologist interpretation: CHEST ONE VIEW PORTABLE CLINICAL HISTORY: EVALUATE ALTERED MENTAL STATUS/WEAKNESS dyspnea COMPARISON STUDY: 04/22/2016 FINDINGS: Moderate cardiomegaly. Prominent pulmonary vasculature. Diaphragms are smooth. Mild chronic elevation right hemidiaphragm. IMPRESSION: Congestive heart failure The above report was generated using voice recognition software. It may contain grammatical, syntax or spelling errors. Electronically signed by: Wood Barclay M.D. 04/10/2017 12:35 PM Dictated Date/Time: 04/10/2017 12:35 PM HEAD WITHOUT CONTRAST (CT) CT DOSE: 1274.60 mGy.cm HISTORY: Mental status change EVALUATE ALTERED MENTAL STATUS/WEAKNESS TECHNIQUE: Multiaxial CT images of the head were performed without the use of intravenous contrast. A dose lowering technique was utilized adhering to the principles of ALARA. Comparison: 10/03/2013 Findings: The paranasal sinuses and mastoid air cells are clear. The calvarium and skull base are intact. The ventricles and sulci are within normal limits. There is no mass, hematoma, midline shift, or acute infarct. Mild age-related atrophy and chronic small vessel change. Impression: No acute intracranial abnormality. Age-related change. The above report was generated using voice recognition software. It may contain grammatical, syntax or spelling errors. Electronically signed by: Wood Barclay M.D. 04/10/2017 12:47 PM Dictated Date/Time: 04/10/2017 12:46 PM Laboratory Results 04/10/17 11:35 Red Blood Count 4.15, Mean Corpuscular Volume 90.6, Mean Corpuscular Hemoglobin 27.7, Mean Corpuscular Hemoglobin Concent 30.6, Mean Platelet Volume 10.6, Neutrophils (%) (Auto) 81.7, Lymphocytes (%) (Auto) 8.9, Monocytes (%) (Auto) 7.7, Eosinophils (%) (Auto) 1.1, Basophils (%) (Auto) 0.2, Neutrophils # (Auto) 8.51, Lymphocytes # (Auto) 0.93, Monocytes # (Auto) 0.80, Eosinophils # (Auto) 0.11, Basophils # (Auto) 0.02 04/10/17 11:35 Test 04/10/17 11:35 04/10/17 12:15 04/10/17 12:19 White Blood Count 10.41 K/uL (4.8-10.8) Red Blood Count 4.15 M/uL (4.2-5.4) Hemoglobin 11.5 g/dL (12.0-16.0) Hematocrit 37.6 % (37-47) Mean Corpuscular Volume 90.6 fL (80-100) Mean Corpuscular Hemoglobin 27.7 pg (25-34) Mean Corpuscular Hemoglobin Concent 30.6 g/dl (32-36) Platelet Count 239 K/uL (130-400) Mean Platelet Volume 10.6 fL (7.4-10.4) Neutrophils (%) (Auto) 81.7 % Lymphocytes (%) (Auto) 8.9 % Monocytes (%) (Auto) 7.7 % Eosinophils (%) (Auto) 1.1 % Basophils (%) (Auto) 0.2 % Neutrophils # (Auto) 8.51 K/uL (1.4-6.5) Lymphocytes # (Auto) 0.93 K/uL (1.2-3.4) Monocytes # (Auto) 0.80 K/uL (0.11-0.59) Eosinophils # (Auto) 0.11 K/uL (0-0.5) Basophils # (Auto) 0.02 K/uL (0-0.2) RDW Standard Deviation 48.6 fL (36.4-46.3) RDW Coefficient of Variation 14.6 % (11.5-14.5) Immature Granulocyte % (Auto) 0.4 % Immature Granulocyte # (Auto) 0.04 K/uL (0.00-0.02) Prothrombin Time 10.2 SECONDS (9.0-12.0) Prothromb Time International Ratio 1.0 (0.9-1.1) Activated Partial Thromboplast Time 27.3 SECONDS (21.0-31.0) Partial Thromboplastin Ratio 1.1 Anion Gap 6.0 mmol/L (3-11) Est Creatinine Clear Calc Drug Dose 64.7 ml/min Estimated GFR () 52.6 Estimated GFR (Non- 45.4 BUN/Creatinine Ratio 19.4 (10-20) Calcium Level 9.2 mg/dl (8.5-10.1) Magnesium Level 2.0 mg/dl (1.8-2.4) Total Bilirubin 0.4 mg/dl (0.2-1) Direct Bilirubin 0.2 mg/dl (0-0.2) Aspartate Amino Transf (AST/SGOT) 30 U/L (15-37) Alanine Aminotransferase (ALT/SGPT) 31 U/L (12-78) Alkaline Phosphatase 71 U/L (45-117) Total Creatine Kinase 75 U/L (26-192) Creatine Kinase MB 1.5 ng/ml (0.5-3.6) Creatine Kinase MB Ratio 2.0 (0-3.0) Troponin I < 0.015 ng/ml (0-0.045) Total Protein 7.5 gm/dl (6.4-8.2) Albumin 3.4 gm/dl (3.4-5.0) Lipase 119 U/L (73-393) Thyroid Stimulating Hormone (TSH) 0.822 uIu/ml (0.300-4.500) Urine Color YELLOW Urine Appearance CLOUDY (CLEAR) Urine pH 5.0 (4.5-7.5) Urine Specific [place] 1.016 (1.000-1.030) Urine Protein TRACE (NEG) Urine Glucose (UA) NEG (NEG) Urine Ketones NEG (NEG) Urine Occult Blood NEG (NEG) Urine Nitrite NEG (NEG) Urine Bilirubin NEG (NEG) Urine Urobilinogen NEG (NEG) Urine Leukocyte Esterase MODERATE (NEG) Urine WBC (Auto) >30 /hpf (0-5) Urine RBC (Auto) 0-4 /hpf (0-4) Urine Hyaline Casts (Auto) 1-5 /lpf (0-5) Urine Epithelial Cells (Auto) 5-10 /lpf (0-5) Urine Bacteria (Auto) 4+ (NEG) Urine Yeast (Auto) (NONE PRSENT) Urine Opiates Screen NEG (NEG) Urine Methadone, Qualitative NEG (NEG) Urine Barbiturates NEG (NEG) Urine Phencyclidine (PCP) Level NEG (NEG) Ur Amphetamine/Methamphetamine NEG (NEG) MDMA (Ecstasy) Screen NEG (NEG) Urine Benzodiazepines Screen NEG (NEG) Urine Cocaine Metabolite NEG (NEG) Urine Marijuana (THC) NEG (NEG) Arterial Blood pH 7.37 (7.35-7.45) Arterial Blood Partial Pressure CO2 53 mmHg (35-46) Arterial Blood Partial Pressure O2 138 mm/Hg (80-95) Arterial Blood HCO3 30 mmol/L (19-24) Arterial Blood Oxygen Saturation 98.4 % (90-95) Arterial Blood Base Excess 3.3 mEq/L (-9-1.8) Arterial Blood Gas Delivery 3 LITERS Roman Test POS (POS) Laboratory results as stated above per my review. Medications Administered Medications (Trade) Dose Ordered Sig/Travis Route Start Time Stop Time Status Last Admin Dose Admin Ceftriaxone Sodium (Rocephin Inj) 1 gm NOW STAT IV 04/10/17 13:24 04/10/17 13:26 DC 04/10/17 13:37 1 GM ECG Indication: other (Ativan overdose) Rate (beats per minute): 68 Rhythm: sinus rhythm Findings: PVC, no acute ischemic change ED Course 1133: Previous medical records were reviewed. The patient was evaluated in room C3. A complete history and physical examination was performed. 1315: I reassessed the patient at this time. She is resting comfortably. 1323: I spoke with Dr. Peraza, hospitalist. We discussed the patients case. The patient will be evaluated by the [facility] for further management. Medical Decision Differentials include: Acute coronary syndrome, myocardial infarction, CVA, TIA , anemia, infection, pneumonia, UTI, pyelonephritis, poor nutrition, dehydration , electrolyte disturbance, and hypoglycemia. This is a 67-year-old female who presents to the ED with a chief complaint of altered mental status. The patient had reportedly told the that she took too much Ativan. The patient is mostly blind and the good eye on the right has recently had surgery and is sutured together. The patient had 40, 0.5 mg tablets of Ativan prescribed 4 days ago. The bottle is empty. The family did not find any tablets laying around. It is unclear how many were ingested but this could be a constricting factor. The patient's family does report some depression in the patient although they did not sense that she overdosed on purpose. They do feel psychiatric evaluation might be prudent. The patient's exam reveals somnolence. She does arouse to verbal stimuli but easily falls asleep. When she is a scar her speech is slurred. A CT scan of brain did not show acute process. Chest x-ray revealed some cardiomegaly. CBC is unremarkable. Urine suggest infection. Complete metabolic panel was unremarkable. Troponin was negative. ABG reveals a normal acid base status. PCO2 was 53 and PO2 was 138. The patient's family was advised of the results. Urine tox did not show any of the normality. The patient apparently is chronically on benzos. She did not have any hypoxia during her ED stay. She was given IV Rocephin for the UTI. I anticipate increased alertness over the next 12-24 hours. She will be seen by the hospitalist service for further inpatient evaluation and care. Medication Reconcilliation Current Medication List: was personally reviewed by me Blood Pressure Screening Patient's blood pressure: Normal blood pressure Consults Time Called: 1320 Consulting Physician: Dr. Peraza hospitalist Returned Call: 1323 I spoke with hao Galvan. We discussed the patients case. The patient will be evaluated by the [facility] for further management. Impression Primary Impression: UTI (urinary tract infection) Additional Impressions: Altered mental status Overdose Scribe Attestation The scribe's documentation has been prepared under my direction and personally reviewed by me in its entirety. I confirm that the note above accurately reflects all work, treatment, procedures, and medical decision making performed by me. Departure Information Dispostion Being Evaluated By Hospitalist Referrals No Doctor, Assigned (PCP) Problem Qualifiers
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
[2017-04-10 16:20] VITALS: BP 127/75; PULSE 77; TEMP 36.5; O2SAT 90
[2017-04-10] MEDS ORDERED: NSS + 20MEQ KCL 1000ML 1,000 ML IV SCH (16:30)
[2017-04-10] MEDS: INSULIN ASPART 100 UNITS/ML 3 ML PEN SC SCH ×2 (16:30→21:00)
[2017-04-10 19:00] VITALS: BP 127/75; PULSE 77; TEMP 36.5; O2SAT 90; BMI 50.5
[2017-04-10 19:03] VITALS: BP 124/74; PULSE 72; TEMP 36.6; O2SAT 97
[2017-04-10 20:00] VITALS: O2SAT 94
[2017-04-10] MEDS ORDERED: INSULIN GLARGINE SOLOSTAR 100 UNITS/ML 3 ML PEN SC SCH (21:00)
[2017-04-10] MEDS ORDERED: NURSING DECISION MEDICATION ORDER PRN (21:15)
[2017-04-10 22:02] VITALS: PULSE 78; O2SAT 94
[2017-04-10] MEDS: D5NSS + 20MEQ KCL 1,000 ML IV SCH (22:09)
[2017-04-10] MEDS: ALPHAGAN P 0.1% SCH (22:59)
[2017-04-10] MEDS: MICONAZOLE NITRATE POWDER 43 GM EXT PRN (23:12)
[2017-04-10 23:37] VITALS: BP 127/71; PULSE 84; TEMP 36.5; O2SAT 94
[2017-04-11] VITALS (9 sets, daily range): BP systolic 125–153; BP diastolic 63–73; PULSE 78–86; TEMP 36.6–37.1; O2SAT 90–94
[2017-04-11] MEDS ORDERED: ACETAMINOPHEN 325 MG TAB ONE (04:29)
[2017-04-11] MEDS ORDERED: ACETAMINOPHEN 325 MG TAB PO PRN (04:30)
[2017-04-11 06:26] LABS: HEMATOCRIT 34.3 % (37-47); HEMOGLOBIN 10.7 g/dL (12.0-16.0); MEAN CELL VOLUME 90.3 fL (80-100); MEAN CORPUSCULAR HEMOGLOBIN 28.2 pg (25-34); MEAN CORPUSCULAR HGB CONC 31.2 g/dl (32-36); MEAN PLATELET VOLUME 10.6 fL (7.4-10.4); PLATELET COUNT 242 K/uL (130-400); RED CELL DISTRIBUTION WIDTH CV 14.6 % (11.5-14.5); RED CELL DISTRIBUTION WIDTH SD 48.2 fL (36.4-46.3); WHITE BLOOD COUNT 12.26 K/uL (4.8-10.8)
[2017-04-11] MEDS: INSULIN ASPART 100 UNITS/ML 3 ML PEN SC SCH ×3 (06:30→21:20)
[2017-04-11 06:56] LABS: CALCIUM 8.4 mg/dl (8.5-10.1); POTASSIUM 3.6 mmol/L (3.5-5.1)
[2017-04-11] MEDS ORDERED: NURSING VERBAL MED ORDER ONE ×3 (07:15→21:00)
[2017-04-11] MEDS: ALPHAGAN P 0.1% SCH ×3 (07:32→23:15)
[2017-04-11] MEDS: D5NSS + 20MEQ KCL 1,000 ML IV SCH (07:32)
[2017-04-11] MEDS: ENOXAPARIN 40 MG/0.4 ML SYR SC SCH (07:33)
--- NOTE | 2017-04-11 11:43 | Progress Note ---
Medicine Progress Note Date & Time of Visit: Apr 11, 2017 at 11:04. Subjective 67 yo F with AMS possibly 2/2 Ativan overdose. She is frequently falling asleep but awakens to voice and is alert and appropriate. She was able to sit up with minimal assistance and is asking for food. She denies any pain, nausea or other symptoms at this time. She is asking to go home. Objective Last 8 Hrs Date Time Temp Pulse Resp B/P (MAP) Pulse Ox O2 Delivery O2 Flow Rate FiO2 04/11/17 08:00 92 Room Air 04/11/17 07:39 36.7 82 20 141/68 (92) 90 Room Air 04/11/17 04:59 37.1 78 20 128/72 (90) 93 Room Air 04/11/17 04:00 Room Air Physical Exam: GEN: obesity, in no acute distress, alert and appropriate HEENT: NC, sutures in R eyelid normal sclerae CARDIO: reg rate, S1/2 heard without m/g/r LUNGS: CTA bilaterally, no crackles, rales or wheezes, good diaphragmatic excursion ABD: soft, non-tender, non-distended, no rebound or guarding EXTREMITY: RP and DP palpable 2+ bilat, no LE swelling or edema, extremities are warm and well-perfused NEURO: CN 2-12 grossly intact, still very sleepy but does not appear to have gross ffocal deficits. MUSC: 5/5 strength throughout, no gross focal deficits. SKIN: warm and dry Laboratory Results: 04/11/17 05:55 04/11/17 05:55 Test 04/10/17 11:35 04/10/17 12:15 04/10/17 12:19 04/11/17 05:55 Immature Granulocyte % (Auto) 0.4 % White Blood Count 10.41 K/uL (4.8-10.8) Red Blood Count 4.15 M/uL (4.2-5.4) 3.80 M/uL (4.2-5.4) Hemoglobin 11.5 g/dL (12.0-16.0) Hematocrit 37.6 % (37-47) Mean Corpuscular Volume 90.6 fL (80-100) 90.3 fL (80-100) Mean Corpuscular Hemoglobin 27.7 pg (25-34) 28.2 pg (25-34) Mean Corpuscular Hemoglobin Concent 30.6 g/dl (32-36) 31.2 g/dl (32-36) Platelet Count 239 K/uL (130-400) Mean Platelet Volume 10.6 fL (7.4-10.4) 10.6 fL (7.4-10.4) Neutrophils (%) (Auto) 81.7 % Lymphocytes (%) (Auto) 8.9 % Monocytes (%) (Auto) 7.7 % Eosinophils (%) (Auto) 1.1 % Basophils (%) (Auto) 0.2 % Neutrophils # (Auto) 8.51 K/uL (1.4-6.5) Lymphocytes # (Auto) 0.93 K/uL (1.2-3.4) Monocytes # (Auto) 0.80 K/uL (0.11-0.59) Eosinophils # (Auto) 0.11 K/uL (0-0.5) Basophils # (Auto) 0.02 K/uL (0-0.2) Immature Granulocyte # (Auto) 0.04 K/uL (0.00-0.02) Prothrombin Time 10.2 SECONDS (9.0-12.0) Prothromb Time International Ratio 1.0 (0.9-1.1) Activated Partial Thromboplast Time 27.3 SECONDS (21.0-31.0) Partial Thromboplastin Ratio 1.1 Magnesium Level 2.0 mg/dl (1.8-2.4) Total Bilirubin 0.4 mg/dl (0.2-1) Direct Bilirubin 0.2 mg/dl (0-0.2) Aspartate Amino Transf (AST/SGOT) 30 U/L (15-37) Alanine Aminotransferase (ALT/SGPT) 31 U/L (12-78) Alkaline Phosphatase 71 U/L (45-117) Total Creatine Kinase 75 U/L (26-192) Creatine Kinase MB 1.5 ng/ml (0.5-3.6) Creatine Kinase MB Ratio 2.0 (0-3.0) Troponin I < 0.015 ng/ml (0-0.045) Total Protein 7.5 gm/dl (6.4-8.2) Albumin 3.4 gm/dl (3.4-5.0) Lipase 119 U/L (73-393) Thyroid Stimulating Hormone (TSH) 0.822 uIu/ml (0.300-4.500) Urine Color YELLOW Urine Appearance CLOUDY (CLEAR) Urine pH 5.0 (4.5-7.5) Urine Specific [place] 1.016 (1.000-1.030) Urine Protein TRACE (NEG) Urine Glucose (UA) NEG (NEG) Urine Ketones NEG (NEG) Urine Occult Blood NEG (NEG) Urine Nitrite NEG (NEG) Urine Bilirubin NEG (NEG) Urine Urobilinogen NEG (NEG) Urine Leukocyte Esterase MODERATE (NEG) Urine WBC (Auto) >30 /hpf (0-5) Urine RBC (Auto) 0-4 /hpf (0-4) Urine Hyaline Casts (Auto) 1-5 /lpf (0-5) Urine Epithelial Cells (Auto) 5-10 /lpf (0-5) Urine Bacteria (Auto) 4+ (NEG) Urine Yeast (Auto) (NONE PRSENT) Urine Opiates Screen NEG (NEG) Urine Methadone, Qualitative NEG (NEG) Urine Barbiturates NEG (NEG) Urine Phencyclidine (PCP) Level NEG (NEG) Ur Amphetamine/Methamphetamine NEG (NEG) MDMA (Ecstasy) Screen NEG (NEG) Urine Benzodiazepines Screen NEG (NEG) Urine Cocaine Metabolite NEG (NEG) Urine Marijuana (THC) NEG (NEG) Arterial Blood pH 7.37 (7.35-7.45) Arterial Blood Partial Pressure CO2 53 mmHg (35-46) Arterial Blood Partial Pressure O2 138 mm/Hg (80-95) Arterial Blood HCO3 30 mmol/L (19-24) Arterial Blood Oxygen Saturation 98.4 % (90-95) Arterial Blood Base Excess 3.3 mEq/L (-9-1.8) Arterial Blood Gas Delivery 3 LITERS Roman Test POS (POS) RDW Standard Deviation 48.2 fL (36.4-46.3) RDW Coefficient of Variation 14.6 % (11.5-14.5) Anion Gap 5.0 mmol/L (3-11) Est Creatinine Clear Calc Drug Dose 79.3 ml/min Estimated GFR () 67.5 Estimated GFR (Non- 58.3 BUN/Creatinine Ratio 18.3 (10-20) Estimated Average Glucose 154 mg/dl Hemoglobin A1c 7.0 % (4.5-5.6) Calcium Level 8.4 mg/dl (8.5-10.1) Test 04/11/17 11:16 Bedside Glucose 158 mg/dl (70-90) Date/Time Source Procedure Growth Status 04/10/17 12:15 Urine,Catheterized Urine Culture - Preliminary Gram Negative Bacilli Resulted Last 24 Hours Test 04/10/17 11:35 04/10/17 12:15 04/10/17 12:19 04/10/17 17:21 White Blood Count 10.41 K/uL Red Blood Count 4.15 M/uL Hemoglobin 11.5 g/dL Hematocrit 37.6 % Mean Corpuscular Volume 90.6 fL Mean Corpuscular Hemoglobin 27.7 pg Mean Corpuscular Hemoglobin Concent 30.6 g/dl Platelet Count 239 K/uL Mean Platelet Volume 10.6 fL Neutrophils (%) (Auto) 81.7 % Lymphocytes (%) (Auto) 8.9 % Monocytes (%) (Auto) 7.7 % Eosinophils (%) (Auto) 1.1 % Basophils (%) (Auto) 0.2 % Neutrophils # (Auto) 8.51 K/uL Lymphocytes # (Auto) 0.93 K/uL Monocytes # (Auto) 0.80 K/uL Eosinophils # (Auto) 0.11 K/uL Basophils # (Auto) 0.02 K/uL RDW Standard Deviation 48.6 fL RDW Coefficient of Variation 14.6 % Immature Granulocyte % (Auto) 0.4 % Immature Granulocyte # (Auto) 0.04 K/uL Prothrombin Time 10.2 SECONDS Prothromb Time International Ratio 1.0 Activated Partial Thromboplast Time 27.3 SECONDS Partial Thromboplastin Ratio 1.1 Sodium Level 142 mmol/L Potassium Level 3.3 mmol/L Chloride Level 103 mmol/L Carbon Dioxide Level 33 mmol/L Anion Gap 6.0 mmol/L Blood Urea Nitrogen 24 mg/dl Creatinine 1.23 mg/dl Est Creatinine Clear Calc Drug Dose 64.7 ml/min Estimated GFR () 52.6 Estimated GFR (Non- 45.4 BUN/Creatinine Ratio 19.4 Random Glucose 66 mg/dl Calcium Level 9.2 mg/dl Magnesium Level 2.0 mg/dl Total Bilirubin 0.4 mg/dl Direct Bilirubin 0.2 mg/dl Aspartate Amino Transf (AST/SGOT) 30 U/L Alanine Aminotransferase (ALT/SGPT) 31 U/L Alkaline Phosphatase 71 U/L Total Creatine Kinase 75 U/L Creatine Kinase MB 1.5 ng/ml Creatine Kinase MB Ratio 2.0 Troponin I < 0.015 ng/ml Total Protein 7.5 gm/dl Albumin 3.4 gm/dl Lipase 119 U/L Thyroid Stimulating Hormone (TSH) 0.822 uIu/ml Urine Color YELLOW Urine Appearance CLOUDY Urine pH 5.0 Urine Specific [place] 1.016 Urine Protein TRACE Urine Glucose (UA) NEG Urine Ketones NEG Urine Occult Blood NEG Urine Nitrite NEG Urine Bilirubin NEG Urine Urobilinogen NEG Urine Leukocyte Esterase MODERATE Urine WBC (Auto) >30 /hpf Urine RBC (Auto) 0-4 /hpf Urine Hyaline Casts (Auto) 1-5 /lpf Urine Epithelial Cells (Auto) 5-10 /lpf Urine Bacteria (Auto) 4+ Urine Yeast (Auto) Urine Opiates Screen NEG Urine Methadone, Qualitative NEG Urine Barbiturates NEG Urine Phencyclidine (PCP) Level NEG Ur Amphetamine/Methamphetamine NEG MDMA (Ecstasy) Screen NEG Urine Benzodiazepines Screen NEG Urine Cocaine Metabolite NEG Urine Marijuana (THC) NEG Arterial Blood pH 7.37 Arterial Blood Partial Pressure CO2 53 mmHg Arterial Blood Partial Pressure O2 138 mm/Hg Arterial Blood HCO3 30 mmol/L Arterial Blood Oxygen Saturation 98.4 % Arterial Blood Base Excess 3.3 mEq/L Arterial Blood Gas Delivery 3 LITERS Roman Test POS Bedside Glucose 60 mg/dl Test 04/10/17 17:47 04/10/17 20:26 04/10/17 23:01 04/11/17 00:15 Bedside Glucose 110 mg/dl 73 mg/dl 95 mg/dl 112 mg/dl Test 04/11/17 05:52 04/11/17 05:55 Bedside Glucose 126 mg/dl White Blood Count 12.26 K/uL Red Blood Count 3.80 M/uL Hemoglobin 10.7 g/dL Hematocrit 34.3 % Mean Corpuscular Volume 90.3 fL Mean Corpuscular Hemoglobin 28.2 pg Mean Corpuscular Hemoglobin Concent 31.2 g/dl RDW Standard Deviation 48.2 fL RDW Coefficient of Variation 14.6 % Platelet Count 242 K/uL Mean Platelet Volume 10.6 fL Sodium Level 144 mmol/L Potassium Level 3.6 mmol/L Chloride Level 107 mmol/L Carbon Dioxide Level 32 mmol/L Anion Gap 5.0 mmol/L Blood Urea Nitrogen 18 mg/dl Creatinine 1.00 mg/dl Est Creatinine Clear Calc Drug Dose 79.3 ml/min Estimated GFR () 67.5 Estimated GFR (Non- 58.3 BUN/Creatinine Ratio 18.3 Random Glucose 141 mg/dl Estimated Average Glucose 154 mg/dl Hemoglobin A1c 7.0 % Calcium Level 8.4 mg/dl Date/Time Source Procedure Growth Status 04/10/17 12:15 Urine,Catheterized Urine Culture - Preliminary Gram Negative Bacilli Resulted Assessment & Plan 67 yo F with AMS possibly 2/2 Ativan overdose. 1. AMS-poss 2/2 overdose in the setting of a UTI. CT head and CXR show no acute findings. UTox is negative. Cont supportive care on monitored bed as she is protecting her airway and is more clear this morning. CPAP used at home up until recent cornea infection with eye surgery. [employer] feels that this will put too much pressure on the surgical site so this is being held at this time. Still suspected OD, patient's family was in the room so I couldn't question her specifically about this. She did admit to psych liaison nurse that she has been taking extra Elavil 75mg at night, too. Of note, she is A&O x 3 for me and appears to be making sense but she is frequently falling asleep and family reports that she has been saying things like "i'm in the [place] house " and that she thinks she is in the hallway. 2. UTI-cont ceftriaxone pending culture results. 3. CKD III-at baseline. 4. DMII-on insulin at home. Hypoglycemia overnight so D5 was started. Improvement in blood sugar. Pt would like to start eating. Would cont holding Lantus for now and just use carb coverage. Pharmacy has been consulted to adjust insulin. Appreciate recs. 5. Hypokalemia-resolved. 6. LAQUITA- hold CPAP as above. 7. Obesity DVT proph-Lovenox Full code Dispo-she will need to reliably tolerate food and be able to pass PT/OT exam prior to going home. Will reassess her later this afternoon. DO Krupa Burden Hospitalist Consultants: Psych Current Inpatient Medications: Current Inpatient Medications Medications (Trade) Dose Ordered Sig/Travis Route Start Time Stop Time Status Last Admin Dose Admin Enoxaparin Sodium (Lovenox Inj) 40 mg DAILY SC 04/11/17 09:00 05/11/17 08:59 04/11/17 07:33 40 MG Ondansetron HCl (Zofran Inj) 4 mg Q6H PRN IV 04/10/17 14:30 05/10/17 14:29 Insulin Glargine (Lantus Solostar Pen) 25 units Q12 SC 04/10/17 21:00 05/10/17 20:59 Future Hold Glucose (Glucose 40% Gel) 15-30 GRAMS 15 GRAMS... UD PRN PO 04/10/17 14:30 05/10/17 14:29 Glucose (Glucose Chew Tab) 4-8 Tablets 4 Tabl... UD PRN PO 04/10/17 14:30 05/10/17 14:29 Dextrose (Dextrose 50% 50ML Syringe) 25-50ML OF 50% DW IV FOR... UD PRN IV 04/10/17 14:30 05/10/17 14:29 04/10/17 17:28 25 ML Glucagon (Glucagon Inj) 1 mg UD PRN SQ 04/10/17 14:30 05/10/17 14:29 Ceftriaxone Sodium 1 gm/ Dextrose 50 ml @ 100 mls/hr Q24H IV 04/11/17 14:00 04/16/17 13:59 Miscellaneous Information (Order Awaiting Action) 1 ea QS N/A 04/11/17 00:00 05/11/17 00:00 Miconazole Nitrate (Desenex Powder) 1 appln TID PRN EXT 04/10/17 21:30 05/10/17 21:29 04/10/17 23:12 1 APPLN Acetaminophen (Tylenol Tab) 650 mg Q4H PRN PO 04/11/17 04:30 05/11/17 04:29 Insulin Aspart (novoLOG ASPART) SLIDING SCALE If C... Q6 SC 04/11/17 12:00 05/11/17 11:59
[2017-04-11] MEDS ORDERED: INSULIN ASPART 100 UNITS/ML 3 ML PEN SC SCH (12:00)
[2017-04-11] MEDS ORDERED: CEFTRIAXONE SOD INJ 1 GM in DEXTROSE 5% ADD-VANTAGE 50ML 50 ML IV SCH (14:00)
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
[2017-04-11] MEDS ORDERED: CIPR0.3S OPR (18:59)
[2017-04-11] MEDS ORDERED: CIPROFLOXACIN HCL 0.3% OP SOLN 2.5 ML BTL OPR SCH (19:00)
[2017-04-11] MEDS ORDERED: CIPROFLOXACIN HCL 3.5 GM TUBE OPR SCH (21:00)
[2017-04-11] MEDS: MICONAZOLE NITRATE POWDER 43 GM EXT PRN (21:16)
[2017-04-12] VITALS (8 sets, daily range): BP systolic 116–156; BP diastolic 60–82; PULSE 75–80; TEMP 36.7–36.8; O2SAT 91–95; BMI 49.1
[2017-04-12 05:04] LABS: CALCIUM 8.9 mg/dl (8.5-10.1); CREATININE 1.13 mg/dl (0.60-1.20); POTASSIUM 4.2 mmol/L (3.5-5.1)
[2017-04-12] MEDS ORDERED: NITROGLYCERIN 0.4 MG SL PER TAB CHARGE SL STA (06:39)
[2017-04-12] MEDS ORDERED: NITROGLYCERIN 0.4 MG SL PER TAB CHARGE ONE (06:41)
[2017-04-12] MEDS ORDERED: NITROGLYCERIN 0.4 MG SL PER TAB CHARGE SL PRN (06:45)
[2017-04-12] MEDS ORDERED: ASPIRIN 81 MG ECTAB PO STA (07:21)
--- NOTE | 2017-04-12 08:31 | Progress Note ---
Progress Note Date of Service Apr 12, 2017. Progress Note notified by RN that patient was noted to have 2 episodes of flutter 1st episode: 0256 ~12 sec 2nd episode: 0346 ~1 minute patient was asymptomatic, resting on my exam, patient reports chest pain left sided, pressure ~5/10, no other associated symptoms followed with [facility] for atypical chest pain in 2013 EKG: no signs of acute ischemia cardiac markers, echo ordered given Nitro SL 1 dose resumed Aspirin pain resolved will consult Cardiology Angelique Drummond MD
[2017-04-12] MEDS: INSULIN ASPART 100 UNITS/ML 3 ML PEN SC SCH ×4 (08:52→21:06)
[2017-04-12 10:53] LABS: CKMB 1.4 ng/ml (0.5-3.6)
--- NOTE | 2017-04-12 11:59 | Clinical Documentation Query ---
QUERY 1 OF [address] FOFANA, In your clinical opinion is this patient being managed for: ( X ) Multifactorial encephalopathy due to hypoglycemia, Ativan overuse, and/or UTI ( ) Not Agree ( ) Other explanation of clinical findings (Please Explain) ( ) Unable to determine (Please Define) ( ) Need to Discuss The medical record reflects the following clinical findings, treatment, and risk factors. Clinical Indicators: 67 yo female presenting with altered mental status. Reportedly took additional doses of ativan beyond amount prescribed as well as being hypoglycemic with random glucose of 66 in ER. UA cx with klebsiella pneumoniae and alpha strep. Treatment:IV D50, IV rocephin, IV fluids Risk Factors: hypoglycemia, ativan overdose, possible UTI Please clarify and document your clinical opinion in the progress notes and discharge summary. Terms such as "probable", "suspected", "likely", "questionable", "possible", or "still to be ruled out" are acceptable. IF IN AGREEMENT, YOU MUST DOCUMENT ABOVE DIAGNOSTIC STATEMENT IN DAILY PROGRESS NOTES AND DISCHARGE SUMMARY. This document is not part of the patient's record. Thank You, Sheridan Desai RN [phone]
[2017-04-12] MEDS ORDERED: CLXOPO OPL (12:07)
[2017-04-12] MEDS ORDERED: ALPPOPSD OPB (12:33)
[2017-04-12] MEDS: ENOXAPARIN 40 MG/0.4 ML SYR SC SCH (13:08)
--- NOTE | 2017-04-12 13:21 | Progress Note ---
Medicine Progress Note Date & Time of Visit: Apr 12, 2017 at 13:13. Subjective 67 yo F with AMS possibly 2/2 Ativan overdose. She is up and awake today and mentating at baseline. We had a long conversation about her independence and limitations at home and she told me she has some systems set up such as magnetic labels for her medications and various other household items that hep her to ID them more accurately. She is also fine with temporary rehab so she can get home and be independent as opposed to having to depend on family members which makes her more comfortable. She reports one episode of chest pain that was described as a dull ache that was resolved with nitro this morning. She denies any associated symptoms such as palpitations, diaphoresis, lightheadedness or nausea. She reports taking occasional nitro at home but less frequently than monthly. She is not very active at baseline and is even more deconditioned from recent events. Cards to see her today-initial cardiac enzymes are negative and she remains symptom free since the nitro this morning. Objective Last 8 Hrs Date Time Temp Pulse Resp B/P (MAP) Pulse Ox O2 Delivery O2 Flow Rate FiO2 04/12/17 08:00 93 Room Air 04/12/17 07:21 36.7 77 16 116/60 (78) 93 Physical Exam: GEN: obesity, in no acute distress, alert and appropriate HEENT: NC, sutures in R eyelid normal sclerae, MMM CARDIO: reg rate, S1/2 heard without m/g/r LUNGS: CTA bilaterally, no crackles, rales or wheezes, good diaphragmatic excursion ABD: soft, non-tender, non-distended, no rebound or guarding EXTREMITY: RP and DP palpable 2+ bilat, no LE swelling or edema, extremities are warm and well-perfused NEURO: CN 2-12 grossly intact, no gross focal deficits. MUSC: 5/5 strength throughout, no gross focal deficits. SKIN: warm and dry Laboratory Results: 04/11/17 05:55 04/12/17 04:35 Test 04/10/17 11:35 04/10/17 12:15 04/10/17 12:19 04/11/17 05:55 Immature Granulocyte % (Auto) 0.4 % White Blood Count 10.41 K/uL (4.8-10.8) Red Blood Count 4.15 M/uL (4.2-5.4) 3.80 M/uL (4.2-5.4) Hemoglobin 11.5 g/dL (12.0-16.0) Hematocrit 37.6 % (37-47) Mean Corpuscular Volume 90.6 fL (80-100) 90.3 fL (80-100) Mean Corpuscular Hemoglobin 27.7 pg (25-34) 28.2 pg (25-34) Mean Corpuscular Hemoglobin Concent 30.6 g/dl (32-36) 31.2 g/dl (32-36) Platelet Count 239 K/uL (130-400) Mean Platelet Volume 10.6 fL (7.4-10.4) 10.6 fL (7.4-10.4) Neutrophils (%) (Auto) 81.7 % Lymphocytes (%) (Auto) 8.9 % Monocytes (%) (Auto) 7.7 % Eosinophils (%) (Auto) 1.1 % Basophils (%) (Auto) 0.2 % Neutrophils # (Auto) 8.51 K/uL (1.4-6.5) Lymphocytes # (Auto) 0.93 K/uL (1.2-3.4) Monocytes # (Auto) 0.80 K/uL (0.11-0.59) Eosinophils # (Auto) 0.11 K/uL (0-0.5) Basophils # (Auto) 0.02 K/uL (0-0.2) Immature Granulocyte # (Auto) 0.04 K/uL (0.00-0.02) Prothrombin Time 10.2 SECONDS (9.0-12.0) Prothromb Time International Ratio 1.0 (0.9-1.1) Activated Partial Thromboplast Time 27.3 SECONDS (21.0-31.0) Partial Thromboplastin Ratio 1.1 Total Bilirubin 0.4 mg/dl (0.2-1) Direct Bilirubin 0.2 mg/dl (0-0.2) Aspartate Amino Transf (AST/SGOT) 30 U/L (15-37) Alanine Aminotransferase (ALT/SGPT) 31 U/L (12-78) Alkaline Phosphatase 71 U/L (45-117) Total Protein 7.5 gm/dl (6.4-8.2) Albumin 3.4 gm/dl (3.4-5.0) Lipase 119 U/L (73-393) Thyroid Stimulating Hormone (TSH) 0.822 uIu/ml (0.300-4.500) Urine Color YELLOW Urine Appearance CLOUDY (CLEAR) Urine pH 5.0 (4.5-7.5) Urine Specific [place] 1.016 (1.000-1.030) Urine Protein TRACE (NEG) Urine Glucose (UA) NEG (NEG) Urine Ketones NEG (NEG) Urine Occult Blood NEG (NEG) Urine Nitrite NEG (NEG) Urine Bilirubin NEG (NEG) Urine Urobilinogen NEG (NEG) Urine Leukocyte Esterase MODERATE (NEG) Urine WBC (Auto) >30 /hpf (0-5) Urine RBC (Auto) 0-4 /hpf (0-4) Urine Hyaline Casts (Auto) 1-5 /lpf (0-5) Urine Epithelial Cells (Auto) 5-10 /lpf (0-5) Urine Bacteria (Auto) 4+ (NEG) Urine Yeast (Auto) (NONE PRSENT) Urine Opiates Screen NEG (NEG) Urine Methadone, Qualitative NEG (NEG) Urine Barbiturates NEG (NEG) Urine Phencyclidine (PCP) Level NEG (NEG) Ur Amphetamine/Methamphetamine NEG (NEG) MDMA (Ecstasy) Screen NEG (NEG) Urine Benzodiazepines Screen NEG (NEG) Urine Cocaine Metabolite NEG (NEG) Urine Marijuana (THC) NEG (NEG) Arterial Blood pH 7.37 (7.35-7.45) Arterial Blood Partial Pressure CO2 53 mmHg (35-46) Arterial Blood Partial Pressure O2 138 mm/Hg (80-95) Arterial Blood HCO3 30 mmol/L (19-24) Arterial Blood Oxygen Saturation 98.4 % (90-95) Arterial Blood Base Excess 3.3 mEq/L (-9-1.8) Arterial Blood Gas Delivery 3 LITERS Roman Test POS (POS) RDW Standard Deviation 48.2 fL (36.4-46.3) RDW Coefficient of Variation 14.6 % (11.5-14.5) Estimated Average Glucose 154 mg/dl Hemoglobin A1c 7.0 % (4.5-5.6) Test 04/12/17 04:35 04/12/17 10:14 04/12/17 12:02 Anion Gap 4.0 mmol/L (3-11) Est Creatinine Clear Calc Drug Dose 70.2 ml/min Estimated GFR () 58.2 Estimated GFR (Non- 50.3 BUN/Creatinine Ratio 12.4 (10-20) Calcium Level 8.9 mg/dl (8.5-10.1) Magnesium Level 1.9 mg/dl (1.8-2.4) Total Creatine Kinase 77 U/L (26-192) Creatine Kinase MB 1.4 ng/ml (0.5-3.6) Creatine Kinase MB Ratio 1.8 (0-3.0) Troponin I < 0.015 ng/ml (0-0.045) Bedside Glucose 208 mg/dl (70-90) Date/Time Source Procedure Growth Status 04/10/17 12:15 Urine,Catheterized Urine Culture - Final Klebsiella Pneumoniae Alpha Strep. Not Enterococcus Complete Last 24 Hours Test 04/11/17 16:50 04/11/17 20:10 04/12/17 04:35 04/12/17 07:37 Bedside Glucose 146 mg/dl 185 mg/dl 181 mg/dl Sodium Level 139 mmol/L Potassium Level 4.2 mmol/L Chloride Level 105 mmol/L Carbon Dioxide Level 30 mmol/L Anion Gap 4.0 mmol/L Blood Urea Nitrogen 14 mg/dl Creatinine 1.13 mg/dl Est Creatinine Clear Calc Drug Dose 70.2 ml/min Estimated GFR () 58.2 Estimated GFR (Non- 50.3 BUN/Creatinine Ratio 12.4 Random Glucose 167 mg/dl Calcium Level 8.9 mg/dl Magnesium Level 1.9 mg/dl Test 04/12/17 10:14 04/12/17 12:02 Total Creatine Kinase 77 U/L Creatine Kinase MB 1.4 ng/ml Creatine Kinase MB Ratio 1.8 Troponin I < 0.015 ng/ml Bedside Glucose 208 mg/dl Assessment & Plan 67 yo F with AMS possibly 2/2 Ativan overdose. She is up and awake today and mentating at baseline. We had a long conversation about her independence and limitations at home and she told me she has some systems set up such as magnetic labels for her medications and various other household items that hep her to ID them more accurately. She is also fine with temporary rehab so she can get home and be independent as opposed to having to depend on family members which makes her more comfortable. She reports one episode of chest pain that was described as a dull ache that was resolved with nitro this morning. She denies any associated symptoms such as palpitations, diaphoresis, lightheadedness or nausea. She reports taking occasional nitro at home but less frequently than monthly. She is not very active at baseline and is even more deconditioned from recent events. Cards to see her today-initial cardiac enzymes are negative and she remains symptom free since the nitro this morning. 1. AMS-resolved 2. LAQUITA-CPAP used at home up until recent cornea infection with eye surgery. Talent Development Manager feels that this will put too much pressure on the surgical site so this is being held at this time. 3. UTI-Rocephin switched to Macrobid based on culture results. 4. CKD III-at baseline. 5. DMII-on insulin at home. Pharmacy has been consulted to adjust insulin. Controlled overnight. Cont ISS/carb coverage and Lantus 6. Hypokalemia-resolved. 7. Obesity 8. Recent corneal infection and visual loss-eye drops as ordered. Cont working with Case Management for options for low light services at home. DVT proph-Lovenox Full code Dispo-likely to rehab, awaiting cardiology evaluation. Yola Webb DO [facility] Hospitalist Consultants: Kim-Fernando Bland-Zion Current Inpatient Medications: Current Inpatient Medications Medications (Trade) Dose Ordered Sig/Travis Route Start Time Stop Time Status Last Admin Dose Admin Enoxaparin Sodium (Lovenox Inj) 40 mg DAILY SC 04/11/17 09:00 05/11/17 08:59 04/12/17 13:08 40 MG Ondansetron HCl (Zofran Inj) 4 mg Q6H PRN IV 04/10/17 14:30 05/10/17 14:29 04/11/17 22:29 4 MG Insulin Glargine (Lantus Solostar Pen) 25 units Q12 SC 04/10/17 21:00 05/10/17 20:59 Future Hold Glucose (Glucose 40% Gel) 15-30 GRAMS 15 GRAMS... UD PRN PO 04/10/17 14:30 05/10/17 14:29 Glucose (Glucose Chew Tab) 4-8 Tablets 4 Tabl... UD PRN PO 04/10/17 14:30 05/10/17 14:29 Dextrose (Dextrose 50% 50ML Syringe) 25-50ML OF 50% DW IV FOR... UD PRN IV 04/10/17 14:30 05/10/17 14:29 04/10/17 17:28 25 ML Glucagon (Glucagon Inj) 1 mg UD PRN SQ 04/10/17 14:30 05/10/17 14:29 Miconazole Nitrate (Desenex Powder) 1 appln TID PRN EXT 04/10/17 21:30 05/10/17 21:29 04/11/17 21:16 1 APPLN Acetaminophen (Tylenol Tab) 650 mg Q4H PRN PO 04/11/17 04:30 05/11/17 04:29 04/11/17 21:16 650 MG Insulin Aspart (novoLOG ASPART) SLIDING SCALE If C... ACHS SC 04/11/17 17:10 05/11/17 11:59 04/12/17 13:09 12 UNITS Ciprofloxacin HCl (Ciloxan 0.3% Op Oint) 1 appln HS OPR 04/12/17 21:00 04/22/17 20:59 Nitroglycerin (Nitrostat Tab) 0.4 mg PRN PRN SL 04/12/17 06:45 05/12/17 06:44 Aspirin (Ecotrin Tab) 81 mg QAM PO 04/13/17 09:00 05/13/17 08:59 Ciprofloxacin HCl (Ciloxan 0.3% Op Oint) 1 appln HS OPL 04/12/17 21:00 04/22/17 20:59 Brimonidine Tartrate (Alphagan-P 0.15% Oph Soln) 1 drops BID OP 04/12/17 21:00 05/12/17 20:59 Nitrofurantoin Macrocrystals (Macrobid Cap) 100 mg BID PO 04/12/17 21:00 04/17/17 20:59
[2017-04-12] MEDS ORDERED: PERFLUTREN LIPID MICROSPHERE (DEFINITY) IV ONE (15:19)
--- NOTE | 2017-04-12 15:59 | Cardiology Consultation ---
Cardiology Consultation Date of Consultation: Apr 12, 2017 History of Present Illness Orquidea Valencia is a 67 year old female seen in cardiology consultation per the request of Dr. Drummond for the evaluation of chest discomfort and tachycardia. The patient has proceeded followed with Dr. Hoyt of our practice and had been seen on multiple occasions as an outpatient in 20 03/13/2014 for chief complaint of chest discomfort that was felt to be atypical in character for angina. Her discomfort never really progressed. And she was prescribed as needed sublingual nitroglycerin. An echocardiogram performed in 2011 revealed mild left ventricular systolic dysfunction during admission for sepsis and her ejection fraction had improved on subsequent follow-up echocardiogram as an outpatient. The patient presented this hospital stay several days ago for chief complaint of change in mental status. In retrospect it appears that perhaps she had either taken and excessive Ativan or Elavil that prompted transient confusion which has since resolved. In the rental management trainee hours of 04/12/17, she had a brief run of a narrow complex irregular heart RR interval tachycardia lasting from 3:46 AM to 3:47 AM with telemetry findings consistent with paroxysmal atrial fibrillation per my interpretation. This was self terminated. Per interview with the patient and her chart, it appears that she was likely sleeping when this occurred. Shortly thereafter the patient had been seen by the hospitalist provider lean process deployment consultant who interviewed her regarding cardiac complaints. She described the discomfort underneath her left breast that had been transiently present at does not sound as though it was correlated with the fast heart rhythm. She has no past history of atrial fibrillation or atrial flutter per review of her chart were per her recollection. She states that she has been diagnosed with TIAs in the past. She has a history of obstructive sleep apnea and is currently not on her CPAP because she is healing from a surgery regarding a right cornea infection. Cornea infection has been difficult to treat and has required that her right eyelid is sewn shut. In addition, she was already legally blind from diabetic retinopathy. Her progressive visual problems have caused her significant recent depression and stress. During my interview with the patient she was in good humor and she was comfortable. Past Medical/Surgical History Problem List: Medical Problems: (1) ACUTE PANCREATITIS (2) Altered mental state (3) BODY MASS INDEX 39.0-39.9, ADULT (4) Chronic kidney disease stage 3 (5) DIAB RADHA WO COMPL, TYPE II OR UNSPEC TYPE, NOT UNCNTRLD (6) Diabetes (7) Diabetic neuropathy (8) Diabetic retinopathy (9) Goiter (10) HYPERLIPIDEMIA NEC/NOS (11) HYPERTENSION NOS (12) Iron deficiency anemia (13) LUMBAR DISC DISPLACEMENT (14) Lymphedema (15) Papillary thyroid carcinoma (16) PNEUMONIA, ORGANISM NOS (17) Posterior vitreous detachment (18) Rheumatoid arthritis (19) s/p appendectomy (20) s/p cataract surgery (21) s/p cholecystectomy (22) s/p MARLIN / BSO (23) URIN TRACT INFECTION NOS Review Of Systems See above for pertinent positives & negatives. A total of 10 systems reviewed and were otherwise negative. Allergies Coded Allergies: Sulfa Antibiotics (Verified Allergy, Intermediate, RASH, 04/12/17) Butorphanol (Verified Allergy, Mild, RAPID HEART, 04/10/17) Sulfamethoxazole (Verified Allergy, Mild, 04/10/17) Trimethoprim (Verified Allergy, Mild, 04/10/17) Cephalexin (Verified Allergy, Unknown, EDEMA, 04/10/17) Cephalosporins (Verified Allergy, Unknown, CECLOR, 04/10/17) Ciprofloxacin (Verified Adverse Reaction, Mild, nausea, 04/12/17) daughter reports n/v with PO version Medications Reported Home Medications Medications Dose Route/Sig Max Daily Dose Days Date Category Dose Instructions Alphagan P (Brimonidine Tartrate) 0.15 % Lurdes 1 Drop OPB BID 04/12/17 Reported Ciloxan 0.3% Oph (Ciprofloxacin Hcl (Ophth)) 0.3 % Oin 0.25 Inch OPL HS 04/12/17 Reported Prednisone 5 Mg Tab 5 Mg PO DAILY 04/10/17 Reported Humalog (Insulin Lispro (Human)) 100 Unit/Ml Inj Units SC 04/10/17 Reported SLIDING SCALE Humalog (Insulin Lispro (Human)) 100 Unit/Ml Inj 70 Units SC DAILYBD 04/10/17 Reported Humalog (Insulin Lispro (Human)) 100 Unit/Ml Inj 50 Units SQ DAILYBL 04/10/17 Reported Oral Relief Lovejoy For Dry (Artificial Saliva) 1 Spr Spr 1 Lovejoy PO QID 04/10/17 Reported Pertzye 90434-41496 Unit (Pancrelipase (Lipase-Protease-) 1 Cap Cap 1 Tab PO ACHS 04/10/17 Reported Methotrexate Sodium (Methotrexate) 50 Mg/2 Ml Inj 15 Mg SC HOLD 12/24/16 Reported HOLD THIS MEDICATION UNTIL OTHERWISE DIRECTED BY Vitamin B12 (Cyanocobalamin) 1,000 Mcg Tab 1,500 Mcg PO DAILY 12/24/16 Reported Potassium Chloride ER (Potassium Chloride) 20 Meq Tabcr 20 Meq PO BID 12/24/16 Reported Vitamin D 99329 Unit (Ergocalciferol) 50,000 Unit Cap 50,000 Inter.unit PO WK 12/24/16 Reported TAKE THIS MEDICATION EVERY TUESDAY Fluticasone Propionate 120 Sprays/6000 Mcg Inha 2 Sprays HANSA QAM 12/24/16 Reported Ventolin Hfa (Albuterol) 200 Puffs/08716 Mcg Aers 2 Puffs INH QID PRN 12/24/16 Reported Arthritis Pain Relief (Acetaminophen) 650 Mg Tab 650 Mg PO UD PRN 12/24/16 Reported TAKE PER PACKAGE DIRECTIONS Ascorbic Acid 1,000 Mg Tab 1,000 Mg PO TID 12/24/16 Reported Gabapentin 400 Mg Cap 400 Mg PO TID 12/24/16 Reported Ferrous Sulfate 325 Mg Tab 325 Mg PO QAM 12/24/16 Reported Lantus Solostar (Insulin Glargine) 100 Unit/Ml Inj 80 Units SC BID 12/24/16 Reported Folic Acid 1 Mg Tab 2 Mg PO 6XWK 12/24/16 Reported TAKE 2 MG EVERY DAY EXCEPT TUESDAY Atorvastatin Calcium (Atorvastatin) 40 Mg Tab 40 Mg PO HS 12/24/16 Reported Fenofibrate 145 Mg Tab 145 Mg PO QAM 12/24/16 Reported Hydroxychloroquine Sulfat (Hydroxychloroquine Sulfate) 200 Mg Tab 400 Mg PO HS 12/24/16 Reported Cimzia (Certolizumab Pegol) 200 Mg/Ml Kit 400 Mg SC MONTHLY 12/24/16 Reported Duoneb (Ipratropium-Albuterol) 3 Ml Nebu 1 Treatment INH Q4H PRN 08/21/15 Reported Multivitamin (Multivitamins) Tab 1 Tab PO DAILY 08/21/15 Reported Ativan (Lorazepam) 0.5 Mg Tab 0.5 Mg PO TID PRN 08/21/15 Reported Nitrostat (Nitroglycerin) 0.4 Mg Tab 0.4 Mg UT UD PRN 08/21/[address] ONE TABLET UNDER THE TONGUE EVERY 5 MINUTES FOR UP TO 3 DOSES OVER 15 MINUTES IF NEEDED FOR CHEST PAIN Premarin (Estrogens Conjugated) 0.45 Mg Tab 0.45 Mg PO QAM 08/21/15 Reported Prilosec (Omeprazole) 20 Mg Cap 20 Mg PO QAM 08/21/15 Reported Meclizine Hcl 25 Mg Tab 25 Mg PO TID PRN 08/21/15 Reported Humalog (Insulin Lispro (Human)) 100 Unit/Ml Inj 60 Units SC DAILYBB 08/21/15 Reported Levothyroxine Sodium 125 Mcg Tab 125 Mcg PO QAM 08/21/15 Reported Demadex (Torsemide) 10 Mg Tab 20 Mg PO QAM 08/21/15 Reported Aspirin Ec (Aspirin) 81 Mg Tab 81 Mg PO HS 10/04/13 Reported Aggrenox 200MG/25MG (Aspirin-Dipyridamole 25MG/200MG) 1 Cap Cap 1 Capsule PO BID 03/20/13 Reported Elavil (Amitriptyline Hcl) 75 Mg Tab 75 Mg PO HS 11/13/11 Reported Physical Exam Vital Signs (Last 8hrs): Last 8 Hrs Date Time Temp Pulse Resp B/P (MAP) Pulse Ox O2 Delivery O2 Flow Rate FiO2 04/12/17 12:00 93 Room Air 04/12/17 08:00 93 Room Air General Appearance: Alert and Oriented x3. NAD. Head: Normocephalic Atraumatic. Right eye lid sewn closed Eyes: PERRLA, EOMI, conjunctiva and sclera clear Neck: Supple. No carotid bruits noted. No JVD. No HJD. Respiratory: Breath sounds clear to auscultation bilaterally. No w/r/r. Cardiovascular: Reg rate and rhythm. S1 and S2 noted. No murmurs, rubs, gallops. PMI non displace. Abdomen: Normal bowel sounds, soft nontender. no abdominal bruits. Extremities: No edema, no clubbing or cyanosis. distal pulses 2/4 bilaterally. Neuro: No focal deficits. Psychiatric: Normal affect. Data Last Resulted 04/11/17 05:55 Last Resulted 04/12/17 04:35 Past 24 Hours Test 04/12/17 10:14 04/12/17 15:29 Range/Units Creatine Kinase MB 1.4 0.5-3.6 ng/ml Creatine Kinase MB Ratio 1.8 0-3.0 Total Creatine Kinase 77 26-192 U/L Troponin I < 0.015 0-0.045 ng/ml EKG performed earlier today 04/12/17 revealed normal sinus rhythm at [address] changes Telemetry reviewed: As noted above, for the most part sinus rhythm, one brief episode of atrial fibrillation at took place on 04/12/17 at 3:46 AM and had terminated spontaneously by 3:47 AM. Assessment & Plan Impression: 67-year-old female 1. Brief episode of paroxysmal atrial fibrillation, a symptomatically 2. Chest discomfort, atypical for angina, in the setting of long-standing history of atypical chest pains Discussion/recommendations: The patient certainly has multiple risk factors for both coronary heart disease and atrial arrhythmias including long-standing diabetes with retinopathy complications. Her predicted stroke risk is considerable given her female gender, age over 65, past history of TIA and diabetes. I'm very concerned however about the potential risks of anticoagulation. I reviewed her outpatient medication list and I counted 30 medications. She has a baseline visual impairment due to diabetic retinopathy and now has had progressive problems with a right corneal infection and her R eyelid is sewn closed. This is cause significant physical and psychological stress to her. Overall I think it is a poor time to consider anticoagulation for her and I recommend we continue her low-dose aspirin for now. Her outpatient lists also includes Aggrenox. I would typically try to avoid this medication in patients angina is a concern as this medication can provoke angina from the dypyridamole. Regarding her chest discomfort. Her EKG reveals no ischemic changes. Cardiac enzymes are negative thus far. The discomfort occurred at rest and was only fleeting. I debated the benefits and risks of pacing the patient on metoprolol for theoretical benefit suppression of angina and even atrial fibrillation. Or even going forward and adding an antiarrhythmic medication such as sotalol to prevent atrial fibrillation. It would appear however that her arrhythmia was brief. Once again I have significant concerns regarding the risk of polypharmacy in terms of adding additional medications to this patient who is already on 30 medications and appears to of been admitted due to a medication problem causing a change in mental status and I would be more concerned that additional medications could prompt further complication rather than help her in the long run. She has persistent or recurrent atrial fibrillation of course things will likely need to be reassessed.
[2017-04-12 16:25] LABS: CKMB 1.3 ng/ml (0.5-3.6)
--- NOTE | 2017-04-12 17:05 | ECHOCARDIOGRAM REPORT ---
*NOTICE TO RECEIVING CONSTITUTION PARTY AGENCY This information is strictly Confidential and protected under [place] law. [place] law prohibits you from making any further disclosure of this information unless further disclosure is expressly permitted by the written consent of the person to whom it pertains or is authorized by law. A general authorization for the release of medical or other information is not sufficient for this purpose. Hospital accepts no responsibility if the information is made available to any other person, INCLUDING THE PATIENT. Interpretation Summary * Name: LEON MCKEON Study Date: 04/12/2017 02:51 PM BP: 116/60 mmHg * Patient Location: [facility]\S\N285\S\1 HR: 83 * : 1950 (M/d/yyyy) Gender: Female Height: 66 in * Age: 67 yrs Ethnicity: [place] Weight: 311 lb * Ordering Physician: Feroz Drummond * Referring Physician: Self, Referred * Performed By: Jennifer Byrd RCS * * Reason For Study: A-FLUTTER / CHEST PAIN * BSA: 2.4 m2 * The study was technically difficult. * The study was technically limited. * -- Conclusions -- * There is mild global hypokinesis of the left ventricle. * Ejection Fraction = 45-50%. * The right ventricle is normal size. * The right ventricular systolic function is mildly reduced. * Diastolic dysfunction, Grade II (pseudonormalization pattern). Procedure Details * A complete two-dimensional transthoracic echocardiogram was performed (2D, M-mode, Doppler and color flow Doppler). * The study was technically difficult. * There were technical limitations due to patient'sbody habitus * A contrast injection of Definity was performed to improve assessment of LV function. * Contrast was injected into an intravenous site in the right arm. * One vial of Definity ultrasound contrast was diluted in normal saline to a total volume of 10 ml. A total of '2' ml of solution was administered during imaging. * Lot # [id number] of Definity utilized for procedure. * Expiration date 1 MAY 30. * The attending nurse who injected the contrast agent was LYN MORALES, RN. Left Ventricle * The left ventricle is normal in size. * There is normal left ventricular wall thickness. * Left ventricular systolic function is mildly reduced. * Ejection Fraction = 45-50%. * There is mild global hypokinesis of the left ventricle. Right Ventricle * The right ventricle is normal size. * The right ventricular systolic function is mildly reduced. Atria * The left atrial size is normal. * Right atrial size is normal. * There is no evidence of atrial septal defect, but resolution does not allow assessment for a patent foramen ovale. Mitral Valve * Calcified mitral apparatus. * There is no mitral valve stenosis. * Significant mitral regurgitation is absent. Tricuspid Valve * The tricuspid valve is normal. * There is no tricuspid stenosis. * Significant tricuspid regurgitation is absent. Aortic Valve * The aortic valve is not well visualized. * Aortic stenosis is absent. * There is no significant aortic regurgitation. Pulmonic Valve * The pulmonary valve is not well seen, but the Doppler examination is normal without significant regurgitation or stenosis. Great Vessels * The aortic root and proximal ascending aorta are normal sized. Pericardium/Pleural * There is no pericardial effusion. Great Vessels * Normal inferior vena cava diameter and respiratory variation suggests normal central venous pressure. Left Ventricular Diastolic Function * Diastolic dysfunction, Grade II (pseudonormalization pattern). MMode 2D Measurements and Calculations IVSd 0.88 cm IVSs 1.0 cm LVIDd 5.6 cm LVIDs 5.0 cm LVPWd 1.2 cm LVPWs 1.3 cm IVS/LVPW 0.74 FS 9.7 % EDV(Teich) 151.5 ml ESV(Teich) 119.7 ml EF(Teich) 21.0 % EDV(cubed) 172.5 ml ESV(cubed) 127.0 ml EF(cubed) 26.4 % % IVS thick 15.4 % % LVPW thick 7.3 % LV mass(C)d 228.1 grams LV mass(C)dI 94.5 grams/m\S\2 LV mass(C)s 221.7 grams LV mass(C)sI 91.9 grams/m\S\2 SV(Teich) 31.9 ml SI(Teich) 13.2 ml/m\S\2 SV(cubed) 45.5 ml SI(cubed) 18.9 ml/m\S\2 Ao root diam 2.5 cm Ao root area 5.0 cm\S\2 LA dimension 3.4 cm LA/Ao 1.4 LVAd ap4 46.7 cm\S\2 LVLd ap4 9.1 cm EDV(MOD-sp4) 198.4 ml EDV(sp4-el) 202.5 ml LVAs ap4 33.1 cm\S\2 LVLs ap4 7.8 cm ESV(MOD-sp4) 120.9 ml ESV(sp4-el) 120.0 ml EF(MOD-sp4) 39.1 % EF(sp4-el) 40.8 % LVAd ap2 43.3 cm\S\2 LVLd ap2 8.8 cm EDV(MOD-sp2) 182.9 ml EDV(sp2-el) 180.6 ml LVAs ap2 29.5 cm\S\2 LVLs ap2 7.4 cm ESV(MOD-sp2) 107.0 ml ESV(sp2-el) 99.8 ml EF(MOD-sp2) 41.5 % EF(sp2-el) 44.8 % LVLd %diff -3.66 % EDV(MOD-bp) 193.6 ml LVLs %diff -4.99 % ESV(MOD-bp) 116.4 ml EF(MOD-bp) 39.9 % SV(MOD-sp4) 77.5 ml SI(MOD-sp4) 32.1 ml/m\S\2 SV(MOD-sp2) 75.9 ml SI(MOD-sp2) 31.4 ml/m\S\2 SV(MOD-bp) 77.3 ml SI(MOD-bp) 32.0 ml/m\S\2 SV(sp4-el) 82.6 ml SI(sp4-el) 34.2 ml/m\S\2 SV(sp2-el) 80.8 ml SI(sp2-el) 33.5 ml/m\S\2 Doppler Measurements and Calculations MV E max юлия 160.9 cm/sec MV A max юлия 96.6 cm/sec MV E/A 1.7 MV P1/2t max юлия 156.2 cm/sec MV P1/2t 62.0 msec MVA(P1/2t) 3.5 cm\S\2 MV dec slope 737.2 cm/sec\S\2 MV dec time 0.22 sec Ao V2 max 196.6 cm/sec Ao max PG 15.5 mmHg Ao max PG (full) 11.6 mmHg LV V1 max PG 3.9 mmHg LV V1 max 98.3 cm/sec PA V2 max 91.5 cm/sec PA max PG 3.3 mmHg
[2017-04-12] MEDS: CIPROFLOXACIN HCL 3.5 GM TUBE OPL SCH (20:58)
[2017-04-12] MEDS: BRIMONIDINE TARTRATE-P 0.15% 5 ML BTL OP SCH (20:59)
[2017-04-12] MEDS: CIPROFLOXACIN HCL 3.5 GM TUBE OPR SCH (21:00)
[2017-04-12] MEDS: NITROFURANTOIN MONOHYDRATE 100 MG CAP PO SCH (21:00)
[2017-04-12] MEDS: MICONAZOLE NITRATE POWDER 43 GM EXT PRN (21:02)
[2017-04-12 22:31] LABS: CKMB 1.5 ng/ml (0.5-3.6)
[2017-04-13] VITALS (11 sets, daily range): BP systolic 126–154; BP diastolic 72–82; PULSE 60–83; TEMP 36.6–37.2; O2SAT 90–95; Ht 167.6 cm; Wt 136.5 kg
[2017-04-13] MEDS: MICONAZOLE NITRATE POWDER 43 GM EXT PRN (08:44)
[2017-04-13] MEDS: ENOXAPARIN 40 MG/0.4 ML SYR SC SCH (08:45)
[2017-04-13] MEDS: ASPIRIN 81 MG ECTAB PO SCH (08:45)
[2017-04-13] MEDS: NITROFURANTOIN MONOHYDRATE 100 MG CAP PO SCH ×2 (08:46→21:38)
[2017-04-13] MEDS: BRIMONIDINE TARTRATE-P 0.15% 5 ML BTL OP SCH ×2 (08:48→21:37)
[2017-04-13] MEDS: INSULIN ASPART 100 UNITS/ML 3 ML PEN SC SCH ×4 (08:51→21:47)
--- NOTE | 2017-04-13 12:26 | Cardiology Follow-Up ---
Subjective General Date of Service: Apr 13, 2017. Chief Complaint: follow up AF, chest pain Pt evaluation today including: physical exam History of Present Illness The patient is a 67 year old female seen in follow up. Her sister is at the bedside visiting her. Telemetry reveals stable SR, with occasional PVCs, No additional AF. Allergies Coded Allergies: Sulfa Antibiotics (Verified Allergy, Intermediate, RASH, 04/12/17) Butorphanol (Verified Allergy, Mild, RAPID HEART, 04/10/17) Sulfamethoxazole (Verified Allergy, Mild, 04/10/17) Trimethoprim (Verified Allergy, Mild, 04/10/17) Cephalexin (Verified Allergy, Unknown, EDEMA, 04/10/17) Cephalosporins (Verified Allergy, Unknown, CECLOR, 04/10/17) Ciprofloxacin (Verified Adverse Reaction, Mild, nausea, 04/12/17) daughter reports n/v with PO version Social History Smoking Status: Former Smoker (last smoked 45 years ago per pt ) Hx Tobacco Use In Past Year?: No Hx Alcohol Use - Type And Amou: No Hx Substance Use - Type And Am: No Problem List Medical Problems: (1) Altered mental status Status: Acute (2) Foreign body entering through skin Status: Acute (3) Influenza Status: Acute (4) N&V (nausea and vomiting) Status: Acute (5) Overdose Status: Acute (6) UTI (urinary tract infection) Status: Acute Physical Exam Vital Signs Last Vital Signs Documentation Date Time Temp Pulse Resp B/P (MAP) Pulse Ox O2 Delivery O2 Flow Rate FiO2 04/13/17 11:07 36.6 74 18 144/78 (100) 93 Room Air 04/10/17 19:03 1.0 Physical Exam Constitutional: Level of Distress: NAD Eyes: EOM: pertinent finding (eyes closed, R eyelid sewn closed ) Lungs: Auscultation: no wheezing, no rales/crackles, no rhonchi Cardiovascular: Heart Auscultation: RRR, no murmurs Extremities: no edema Assessment and Plan Assessment and Plan Summary of ttecho 04/12/17: * There is mild global hypokinesis of the left ventricle. * Ejection Fraction = 45-50%. * The right ventricle is normal size. * The right ventricular systolic function is mildly reduced. * Diastolic dysfunction, Grade II (pseudonormalization pattern). Impression: 1. One brief episode of AF, asymptomatic ward < 1 minute , during sleep 2. CP , atypical for angina 3. Mild LV, RV systolic dysfunction without clinical symptoms of CHF 4. Multiple medical problems, progressive visual impairment. Plan: Pt has history of diabetes with retinopathy. Based on her history , she is considered to have risk factors maker her high risk for cardioembolic stroke with age over 65, DM, female, past TIA. She however had a very brief run of AF. Her CP was atypical for angina, with negative Eliezer. Echo findings are similar to those noted during sepsis episode in 2011, and had improved on follow up echo. She came in to hospital with confusion , that in retrospect may have been to overdose of lorazepam or Elavil . As discussed in my note yesterday, she is already on 30 medications, and at this time I recommend ongoing observation w/out additional procedures or adding cardiac medications to her program given risk of polypharmacy. Laboratory Results Last 24 Hours Test 04/12/17 15:29 04/12/17 16:50 04/12/17 19:42 04/12/17 21:35 Total Creatine Kinase 78 U/L 80 U/L Creatine Kinase MB 1.3 ng/ml 1.5 ng/ml Creatine Kinase MB Ratio 1.7 1.9 Troponin I < 0.015 ng/ml < 0.015 ng/ml Bedside Glucose 215 mg/dl 251 mg/dl Test 04/13/17 07:32 04/13/17 11:28 Bedside Glucose 233 mg/dl 330 mg/dl
[2017-04-13] MEDS ORDERED: PHARMACY GLYCEMIC MGMT CONSULT PRN (14:33)
[2017-04-13] MEDS ORDERED: INSULIN GLARGINE SOLOSTAR 100 UNITS/ML 3 ML PEN SC ONE (15:00)
--- NOTE | 2017-04-13 15:21 | Pharmacy Progress Note ---
Glycemic Control Intl Consult Date of Service Apr 13, 2017. Scope Glycemic Pharmacist consulted by Dr Casey on 04/13/17 for glycemic control and to write orders per [facility] inpatient glycemic control protocol Objective Weight (Kilograms): 137.400 Accuchecks BSG (last 24hrs): Test 04/12/17 16:50 04/12/17 19:42 04/13/17 07:32 04/13/17 11:28 Bedside Glucose 215 mg/dl (70-90) 251 mg/dl (70-90) 233 mg/dl (70-90) 330 mg/dl (70-90) HbA1c Test 04/11/17 05:55 Hemoglobin A1c 7.0 % (4.5-5.6) H Recent Pertinent Medications Outpatient Anti-diabetic Regimen: * Lantus 80 units BID, Humalog 60/50/70 + sliding scale * A1c = 7 % (04/11/17) The patient is currently receiving: * Basal insulin: Lantus 25 units every 12 hours -> ordered, but ON HOLD. No Lantus received since admission 04/10/17 * Correctional Insulin: Novolog Correction per scale ACHS Goal Range: Low 140 mg/dL - High 180 mg/dL Correction Factor: 15 mg/dL/unit * Prandial insulin: Per carb ratio of 1 unit per 6 grams CHO consumed Risk Factors for Insulin Resistance: * Infection: UTI -> treated with Macrobid 100mg BID x 5 days * Diet: T2DM Assessment & Plan ASSESSMENT: * 67 y/o F admitted on 04/10/17 with AMS secondary to possible Ativan/ Amitriptyline overdose. She also has UTI (Kleb. pneumo, alpha strep not enterococcus) currently treated with Macrobid 100mg BID x 5 days. * Patient on very high doses of insulin as an outpatient. Estimate she receives at least 340 units/day. HbA1c 7% shows good outpatient glycemic control. Per in service educator, patient has good understanding of insulin/ diabetes with rare hypoglycemia. * Hypoglycemia upon admission at 66 mg/dL. Therefore Lantus was reordered at 25 units BID, but basal insulin subsequently placed on hold as BG trended down to 60 mg/dL. She has been without basal insulin since admission, which likely explains sustained and worsening hyperglycemia. She has only received bolus insulin with Novolog; total 35 units given yesterday. * Patient is basal deficient and needs Lantus restarted today. Home Lantus was 80 units BID, but do not feel comfortable restarting at home dose at this time. Will restart at 25-50% lower dose. * Current Novolog scale ordered by Hospitalist using weight-based dosing with stress of 2; current CF 15 with CR 6. Using her total outpatient regimen of 340 units and a stress of 1 gives CF of 5 and CR of 2. Will tighten bolus insulin utilizing CF and CR in-between these extremes and target a more stringent BG goal. Anticipate that she will need much higher insulin doses, but want to approach conservatively for now given recent hypoglycemic event. PLAN FOR INPATIENT GLYCEMIC CONTROL: * Give Lantus 50 units SC x 1 now on 04/13/17 ~1500 * Restart Basal insulin with LANTUS SQ BID * 40 units if BG 120 or lower * 50 units if BG 121-159 * 60 units if BG 160 or higher * Tighten Correctional Insulin with NOVOLOG per scale ACHS or Q6hrs while NPO * Goal Range: Low 120 mg/dL - High 160 mg/dL * Correction Factor: 10 mg/dL/unit * Nutritional / Prandial insulin per carb ratio of 1 unit per 4 grams CHO consumed * Check and give correctional Novolog with above parameters on 04/14/17 @ 0200 if needed * Please note that the plan above was derived based on current level of insulin resistance and hospital stress. These recommendations are appropriate for inpatient admission only. Plan of care upon discharge will need to be reassessed to avoid potential outpatient hypo/hyperglycemia. Thank you.
--- NOTE | 2017-04-13 17:48 | Progress Note ---
Subjective Date of Service: Apr 13, 2017. Subjective Pt evaluation today including: conversation w/ patient, physical exam, lab review, review of studies, review of inpatient medication list Saw/examined the patient in room 284 She is doing okay, states she feels fine, no chest pain/shortness of breath No confusion She states she ambulated well with PT/OT states she does not want to go to rehab, and prefers home with home health Problem List Medical Problems: (1) Altered mental status Status: Acute (2) Foreign body entering through skin Status: Acute (3) Influenza Status: Acute (4) N&V (nausea and vomiting) Status: Acute (5) Overdose Status: Acute (6) UTI (urinary tract infection) Status: Acute Review of Systems Constitutional: No fever, No chills, No weakness (improving) Respiratory: No shortness of breath Cardiac: No chest pain Abdomen: No pain, No nausea, No vomiting, No diarrhea Neurologic: No memory loss, No paralysis, No vertigo Medications Current Inpatient Medications Medications (Trade) Dose Ordered Sig/Travis Route Start Time Stop Time Status Last Admin Dose Admin Enoxaparin Sodium (Lovenox Inj) 40 mg DAILY SC 04/11/17 09:00 05/11/17 08:59 04/13/17 08:45 40 MG Ondansetron HCl (Zofran Inj) 4 mg Q6H PRN IV 04/10/17 14:30 05/10/17 14:29 04/11/17 22:29 4 MG Glucose (Glucose 40% Gel) 15-30 GRAMS 15 GRAMS... UD PRN PO 04/10/17 14:30 05/10/17 14:29 Glucose (Glucose Chew Tab) 4-8 Tablets 4 Tabl... UD PRN PO 04/10/17 14:30 05/10/17 14:29 Dextrose (Dextrose 50% 50ML Syringe) 25-50ML OF 50% DW IV FOR... UD PRN IV 04/10/17 14:30 05/10/17 14:29 04/10/17 17:28 25 ML Glucagon (Glucagon Inj) 1 mg UD PRN SQ 04/10/17 14:30 05/10/17 14:29 Miconazole Nitrate (Desenex Powder) 1 appln TID PRN EXT 04/10/17 21:30 05/10/17 21:29 04/13/17 08:44 1 APPLN Acetaminophen (Tylenol Tab) 650 mg Q4H PRN PO 04/11/17 04:30 05/11/17 04:29 04/11/17 21:16 650 MG Insulin Aspart (novoLOG ASPART) SLIDING SCALE If C... ACHS SC 04/11/17 17:10 05/11/17 11:59 04/13/17 12:24 17 UNITS Ciprofloxacin HCl (Ciloxan 0.3% Op Oint) 1 appln HS OPR 04/12/17 21:00 04/22/17 20:59 04/12/17 21:00 1 APPLN Nitroglycerin (Nitrostat Tab) 0.4 mg PRN PRN SL 04/12/17 06:45 05/12/17 06:44 Aspirin (Ecotrin Tab) 81 mg QAM PO 04/13/17 09:00 05/13/17 08:59 04/13/17 08:45 81 MG Ciprofloxacin HCl (Ciloxan 0.3% Op Oint) 1 appln HS OPL 04/12/17 21:00 04/22/17 20:59 Brimonidine Tartrate (Alphagan-P 0.15% Oph Soln) 1 drops BID OP 04/12/17 21:00 05/12/17 20:59 04/13/17 08:48 1 DROPS Nitrofurantoin Macrocrystals (Macrobid Cap) 100 mg BID PO 04/12/17 21:00 04/17/17 20:59 04/13/17 08:46 100 MG Miscellaneous Information (Consult Glycemic Management Pharmacy) 1 ea UD PRN N/A 04/13/17 14:33 05/13/17 14:32 Insulin Glargine (Lantus Solostar Pen) SEE PROTOCOL BID SC 04/13/17 21:00 05/13/17 20:59 Insulin Aspart (novoLOG ASPART) SLIDING SCALE If C... 0200 ONCE SC 04/14/17 02:00 04/14/17 02:01 Objective Vital Signs Date Time Temp Pulse Resp B/P (MAP) Pulse Ox O2 Delivery O2 Flow Rate FiO2 04/13/17 16:00 93 Room Air 04/13/17 15:36 36.9 60 20 131/77 (95) 94 Room Air 04/13/17 12:48 92 Room Air 04/13/17 11:07 36.6 74 18 144/78 (100) 93 Room Air 04/13/17 08:01 92 Room Air 04/13/17 07:19 36.7 77 18 145/78 (100) 92 Room Air 04/13/17 04:00 36.9 72 20 151/73 (99) 92 Room Air 04/13/17 04:00 Room Air 04/13/17 00:00 Room Air 04/13/17 00:00 36.7 71 18 126/74 (91) 95 Room Air 04/12/17 20:35 36.8 80 18 156/82 (106) 95 Room Air 04/12/17 20:00 93 Room Air Physical Exam General Appearance: no apparent distress, + obese Eyes: + pertinent finding (blind, R eyelid stitches) Respiratory/Chest: no respiratory distress, no accessory muscle use Cardiovascular: regular rate, rhythm, no edema, no murmur Neurologic/Psychiatric: no motor/sensory deficits, alert, normal mood/affect, oriented x 3 Laboratory Results Last 24 Hours Test 04/12/17 19:42 04/12/17 21:35 04/13/17 07:32 04/13/17 11:28 Bedside Glucose 251 mg/dl 233 mg/dl 330 mg/dl Total Creatine Kinase 80 U/L Creatine Kinase MB 1.5 ng/ml Creatine Kinase MB Ratio 1.9 Troponin I < 0.015 ng/ml Test 04/13/17 16:26 Bedside Glucose 254 mg/dl Assessment and Plan 67 yo F with AMS possibly 2/2 Ativan overdose. She is up and awake today and mentating at baseline. We had a long conversation about her independence and limitations at home and she told me she has some systems set up such as magnetic labels for her medications and various other household items that hep her to ID them more accurately. She is also fine with temporary rehab so she can get home and be independent as opposed to having to depend on family members which makes her more comfortable. She reports one episode of chest pain that was described as a dull ache that was resolved with nitro this morning. She denies any associated symptoms such as palpitations, diaphoresis, lightheadedness or nausea. She reports taking occasional nitro at home but less frequently than monthly. She is not very active at baseline and is even more deconditioned from recent events. Cards to see her today-initial cardiac enzymes are negative and she remains symptom free since the nitro this morning. 1. AMS-resolved likely multifactorial encephalopathy secondary to UTI, possible unintentional Ativan vs. Elavil overdose. working well with PT/OT - plan to discharge home with home health on 04/14 2. LAQUITA-CPAP used at home up until recent cornea infection with eye surgery. Candlemaking Laborer feels that this will put too much pressure on the surgical site so this is being held at this time. 3. UTI-Rocephin switched to Macrobid based on culture results. 4. CKD III-at baseline. 5. DMII-on insulin at home. Pharmacy has been consulted to adjust insulin. Controlled overnight. Cont ISS/carb coverage and Lantus 6. Hypokalemia-resolved. 7. Obesity 8. Recent corneal infection and visual loss-eye drops as ordered. Cont working with Case Management for options for low light services at home. DVT proph-Lovenox Full code Dispo-likely to rehab, awaiting cardiology evaluation
[2017-04-13] MEDS: CIPROFLOXACIN HCL 3.5 GM TUBE OPL SCH (21:37)
[2017-04-13] MEDS: CIPROFLOXACIN HCL 3.5 GM TUBE OPR SCH (21:39)
[2017-04-13] MEDS: INSULIN GLARGINE SOLOSTAR 100 UNITS/ML 3 ML PEN SC SCH (21:46)
[2017-04-14] VITALS (10 sets, daily range): BP systolic 129–155; BP diastolic 67–74; PULSE 67–75; TEMP 36.6–36.9; O2SAT 92–96
[2017-04-14] MEDS ORDERED: INSULIN ASPART 100 UNITS/ML 3 ML PEN SC ONE (02:00)
[2017-04-14 06:02] LABS: HEMATOCRIT 37.6 % (37-47); HEMOGLOBIN 11.8 g/dL (12.0-16.0); MEAN CELL VOLUME 89.3 fL (80-100); MEAN CORPUSCULAR HGB CONC 31.4 g/dl (32-36); MEAN PLATELET VOLUME 9.9 fL (7.4-10.4); PLATELET COUNT 283 K/uL (130-400); RED CELL DISTRIBUTION WIDTH CV 14.3 % (11.5-14.5); RED CELL DISTRIBUTION WIDTH SD 46.4 fL (36.4-46.3); WHITE BLOOD COUNT 11.18 K/uL (4.8-10.8)
[2017-04-14 06:39] LABS: CREATININE 1.07 mg/dl (0.60-1.20)
[2017-04-14 06:40] LABS: CALCIUM 9.3 mg/dl (8.5-10.1); POTASSIUM 3.5 mmol/L (3.5-5.1)
[2017-04-14] MEDS: ASPIRIN 81 MG ECTAB PO SCH (08:19)
[2017-04-14] MEDS: ENOXAPARIN 40 MG/0.4 ML SYR SC SCH (08:19)
[2017-04-14] MEDS: BRIMONIDINE TARTRATE-P 0.15% 5 ML BTL OP SCH ×2 (08:20→21:11)
[2017-04-14] MEDS: NITROFURANTOIN MONOHYDRATE 100 MG CAP PO SCH ×2 (08:21→21:12)
[2017-04-14] MEDS: INSULIN GLARGINE SOLOSTAR 100 UNITS/ML 3 ML PEN SC SCH ×2 (08:40→21:18)
[2017-04-14] MEDS: INSULIN ASPART 100 UNITS/ML 3 ML PEN SC SCH ×4 (08:42→21:17)
--- NOTE | 2017-04-14 10:10 | Pharmacy Progress Note ---
Pharmacy Glycemic Short Note 2 Date of Service Apr 14, 2017. OUTPATIENT ANTIDIABETIC REGIMEN: * Lantus 80 units BID * Humalog 60/50/70 + sliding scale * A1c = 7 % (04/11/17) ASSESSMENT: * Ms. Valencia's BSGs have improved significantly with the resumption of her basal insulin * BSGs in the last 24 hours have ranged from 152-254 mg/dL after receiving 185 units of insulin yesterday * Fasting BSG = 168 mg/dL; Since we are still determining basal needs, will continue the scale for her Lantus dose * Current CF/CR seems appropriate but will need to see BSGs today, now that Lantus on board, prior to making any changes PLAN FOR INPATIENT GLYCEMIC CONTROL: * Continue Basal insulin * LANTUS SQ BID * 40 units if BG 120 or lower * 50 units if BG 121-159 * 60 units if BG 160 or higher * Continue Bolus insulin * NovoLog per scale ACHS or Q6hrs while NPO * Goal Range: Low 120 mg/dL - High 160 mg/dL * Correction Factor: 10 mg/dL/unit * Nutritional / Prandial insulin per carb ratio of 1 unit per 4 grams CHO consumed PLAN FOR DISCHARGE: * A1c indicates excellent outpatient control * Resume outpatient regimen on discharge
--- NOTE | 2017-04-14 18:53 | Progress Note ---
Subjective Date of Service: Apr 14, 2017. Subjective Pt evaluation today including: conversation w/ patient, physical exam, lab review, review of studies, review of inpatient medication list Saw/examined the patient in room 284 She's doing well, tolerating her diet, doing well with ambulation states she is agreeable to go home with home PT and home nursing Problem List Medical Problems: (1) Altered mental status Status: Acute (2) Foreign body entering through skin Status: Acute (3) Influenza Status: Acute (4) N&V (nausea and vomiting) Status: Acute (5) Overdose Status: Acute (6) UTI (urinary tract infection) Status: Acute Review of Systems Constitutional: + weakness, No fever, No chills 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 UD PRN PO 04/10/17 14:30 05/10/17 14:29 Glucose (Glucose Chew Tab) 4-8 Tablets 4 Tabl... UD PRN PO 04/10/17 14:30 05/10/17 14:29 Dextrose (Dextrose 50% 50ML Syringe) 25-50ML OF 50% DW IV FOR... UD PRN IV 04/10/17 14:30 05/10/17 14:29 04/10/17 17:28 25 ML Glucagon (Glucagon Inj) 1 mg UD PRN SQ 04/10/17 14:30 05/10/17 14:29 Miconazole Nitrate (Desenex Powder) 1 appln TID PRN EXT 04/10/17 21:30 05/10/17 21:29 04/13/17 08:44 1 APPLN Acetaminophen (Tylenol Tab) 650 mg Q4H PRN PO 04/11/17 04:30 05/11/17 04:29 04/11/17 21:16 650 MG Insulin Aspart (novoLOG ASPART) SLIDING SCALE If C... ACHS SC 04/11/17 17:10 05/11/17 11:59 04/14/17 18:15 28 UNITS Ciprofloxacin HCl (Ciloxan 0.3% Op Oint) 1 appln HS OPR 04/12/17 21:00 04/22/17 20:59 04/12/17 21:00 1 APPLN Nitroglycerin (Nitrostat Tab) 0.4 mg PRN PRN SL 04/12/17 06:45 05/12/17 06:44 Aspirin (Ecotrin Tab) 81 mg QAM PO 04/13/17 09:00 05/13/17 08:59 04/14/17 08:19 81 MG Ciprofloxacin HCl (Ciloxan 0.3% Op Oint) 1 appln HS OPL 04/12/17 21:00 04/22/17 20:59 04/13/17 21:37 1 APPLN Brimonidine Tartrate (Alphagan-P 0.15% Oph Soln) 1 drops BID OP 04/12/17 21:00 05/12/17 20:59 04/14/17 08:20 1 DROPS Nitrofurantoin Macrocrystals (Macrobid Cap) 100 mg BID PO 04/12/17 21:00 04/17/17 20:59 04/14/17 08:21 100 MG Miscellaneous Information (Consult Glycemic Management Pharmacy) 1 ea UD PRN N/A 04/13/17 14:33 05/13/17 14:32 Insulin Glargine (Lantus Solostar Pen) SEE PROTOCOL BID SC 04/13/17 21:00 05/13/17 20:59 04/14/17 08:40 60 UNITS Objective Vital Signs Date Time Temp Pulse Resp B/P (MAP) Pulse Ox O2 Delivery O2 Flow Rate FiO2 04/14/17 16:22 36.7 75 18 148/74 (98) 96 Room Air 04/14/17 16:00 94 Room Air 04/14/17 13:21 92 Room Air 04/14/17 10:59 36.6 68 18 144/70 (94) 94 Room Air 04/14/17 09:13 92 Room Air 04/14/17 07:20 36.6 72 18 133/71 (91) 94 Room Air 04/14/17 05:31 36.7 67 17 155/71 (99) 95 04/14/17 04:00 Room Air 04/14/17 00:00 Room Air 04/13/17 23:52 36.7 80 19 151/82 (105) 90 Room Air 04/13/17 20:22 37.2 83 20 154/72 (99) 94 Room Air 04/13/17 20:00 93 Room Air Physical Exam General Appearance: no apparent distress, + obese Eyes: + pertinent finding (blind, sutures on R eyelid) ENT: hearing grossly normal Respiratory/Chest: no respiratory distress, no accessory muscle use Cardiovascular: regular rate, rhythm, no edema, no murmur Extremities: normal inspection, no pedal edema Neurologic/Psychiatric: no motor/sensory deficits, alert, normal mood/affect Laboratory Results Last 24 Hours Test 04/13/17 20:50 04/14/17 01:46 04/14/17 05:22 04/14/17 07:17 Bedside Glucose 236 mg/dl 166 mg/dl 168 mg/dl White Blood Count 11.18 K/uL Red Blood Count 4.21 M/uL Hemoglobin 11.8 g/dL Hematocrit 37.6 % Mean Corpuscular Volume 89.3 fL Mean Corpuscular Hemoglobin 28.0 pg Mean Corpuscular Hemoglobin Concent 31.4 g/dl RDW Standard Deviation 46.4 fL RDW Coefficient of Variation 14.3 % Platelet Count 283 K/uL Mean Platelet Volume 9.9 fL Sodium Level 136 mmol/L Potassium Level 3.5 mmol/L Chloride Level 102 mmol/L Carbon Dioxide Level 29 mmol/L Anion Gap 5.0 mmol/L Blood Urea Nitrogen 15 mg/dl Creatinine 1.07 mg/dl Est Creatinine Clear Calc Drug Dose 72.7 ml/min Estimated GFR () 62.2 Estimated GFR (Non- 53.7 BUN/Creatinine Ratio 14.0 Random Glucose 152 mg/dl Calcium Level 9.3 mg/dl Test 04/14/17 11:30 04/14/17 15:32 Bedside Glucose 200 mg/dl 174 mg/dl Assessment and Plan 67 yo F with AMS possibly 2/2 Ativan overdose. She is up and awake today and mentating at baseline. We had a long conversation about her independence and limitations at home and she told me she has some systems set up such as magnetic labels for her medications and various other household items that hep her to ID them more accurately. She is also fine with temporary rehab so she can get home and be independent as opposed to having to depend on family members which makes her more comfortable. She reports one episode of chest pain that was described as a dull ache that was resolved with nitro this morning. She denies any associated symptoms such as palpitations, diaphoresis, lightheadedness or nausea. She reports taking occasional nitro at home but less frequently than monthly. She is not very active at baseline and is even more deconditioned from recent events. Cards to see her today-initial cardiac enzymes are negative and she remains symptom free since the nitro this morning. Update on 04/14 her encephalopathy likely from Ativan overdose as per , who states there are about 18 pills missing from her bottle Patient states this was unintentional, and accidental; no SI, no depression Denies any further chest pain, appreciate cardiology - no further medications due to polypharmacy issues will d/c on antibiotics for UTI likely d/c on 04/15 to home with home health services 1. AMS-resolved likely multifactorial encephalopathy secondary to UTI, possible unintentional Ativan vs. Elavil overdose. working well with PT/OT - plan to discharge home with home health on 04/14 2. LAQUITA-CPAP used at home up until recent cornea infection with eye surgery. 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 3. UTI-Rocephin switched to Macrobid based on culture results. 4. CKD III-at baseline. 5. DMII-on insulin at home. Pharmacy has been consulted to adjust insulin. Controlled overnight. Cont ISS/carb coverage and Lantus 6. Hypokalemia-resolved. 7. Obesity 8. Recent corneal infection and visual loss-eye drops as ordered. Cont working with Case Management for options for low light services at home. DVT proph-Lovenox Full code Dispo-likely to rehab, awaiting cardiology evaluation
[2017-04-14] MEDS: CIPROFLOXACIN HCL 3.5 GM TUBE OPR SCH (21:00)
[2017-04-14] MEDS: CIPROFLOXACIN HCL 3.5 GM TUBE OPL SCH (21:11)
[2017-04-15 04:17] VITALS: BP 123/70; PULSE 73; TEMP 36.7; O2SAT 93
[2017-04-15 07:39] VITALS: O2SAT 94
[2017-04-15 07:41] LABS: HEMATOCRIT 40.3 % (37-47); HEMOGLOBIN 12.6 g/dL (12.0-16.0); MEAN CELL VOLUME 89.4 fL (80-100); MEAN CORPUSCULAR HEMOGLOBIN 27.9 pg (25-34); MEAN CORPUSCULAR HGB CONC 31.3 g/dl (32-36); MEAN PLATELET VOLUME 9.9 fL (7.4-10.4); PLATELET COUNT 295 K/uL (130-400); RED CELL DISTRIBUTION WIDTH CV 14.3 % (11.5-14.5); RED CELL DISTRIBUTION WIDTH SD 46.5 fL (36.4-46.3); WHITE BLOOD COUNT 11.19 K/uL (4.8-10.8)
[2017-04-15 07:44] VITALS: BP 126/77; PULSE 60; TEMP 36.6; O2SAT 95
[2017-04-15] MEDS: NITROFURANTOIN MONOHYDRATE 100 MG CAP PO SCH (08:48)
[2017-04-15] MEDS: BRIMONIDINE TARTRATE-P 0.15% 5 ML BTL OP SCH (08:48)
[2017-04-15] MEDS: ENOXAPARIN 40 MG/0.4 ML SYR SC SCH (08:49)
[2017-04-15] MEDS: ASPIRIN 81 MG ECTAB PO SCH (08:49)
[2017-04-15] MEDS: INSULIN GLARGINE SOLOSTAR 100 UNITS/ML 3 ML PEN SC SCH (08:56)
[2017-04-15] MEDS: INSULIN ASPART 100 UNITS/ML 3 ML PEN SC SCH ×2 (08:57→12:57)
[2017-04-15 09:00] LABS: CREATININE 1.08 mg/dl (0.60-1.20)
[2017-04-15 09:01] LABS: CALCIUM 9.4 mg/dl (8.5-10.1); POTASSIUM 3.9 mmol/L (3.5-5.1)
--- NOTE | 2017-04-15 11:57 | Pharmacy Progress Note ---
Pharmacy Glycemic Short Note 2 Date of Service Apr 15, 2017. OUTPATIENT ANTIDIABETIC REGIMEN: * Lantus 80 units BID * Humalog 60/50/70 + sliding scale * A1c = 7 % (04/11/17) ASSESSMENT: 04/15/17 * Ms Valencia received approximately 196 units of insulin yesterday (120 units of basal and 76 units of bolus insulin). Her blood sugars ranged from 152-219 mg/ dL which is greatly improved from the prior day. Her fasting today is 122 mg/dL. * For the fasting blood sugar, there is a significant trend downwards from 233- 168-122 mg/dL indicating that basal insulin is aggressive lowering her blood sugar. It appears that 120 units of basal insulin may be too aggressive - reduce scale to include only Lantus 40 units and 50 units as unsure of patient' s true basal needs. * For post-prandial blood sugars, it appears that the current parameters control blood sugars. Will monitor closely and adjust. Tighten goal range to 110 - 140 mg/dL. 04/14/17 * Ms. Valencia's BSGs have improved significantly with the resumption of her basal insulin * BSGs in the last 24 hours have ranged from 152-254 mg/dL after receiving 185 units of insulin yesterday * Fasting BSG = 168 mg/dL; Since we are still determining basal needs, will continue the scale for her Lantus dose * Current CF/CR seems appropriate but will need to see BSGs today, now that Lantus on board, prior to making any changes PLAN FOR INPATIENT GLYCEMIC CONTROL: * Continue Basal insulin * LANTUS SQ BID * 40 units if BSG less than 120 mg/dL * 50 units if BG 120 or greater * Continue Bolus insulin * NovoLog per scale ACHS or Q6hrs while NPO * Goal Range: Low 110 mg/dL - High 140 mg/dL * Correction Factor: 8 mg/dL/unit * Nutritional / Prandial insulin per carb ratio of 1 unit per 2 grams CHO consumed PLAN FOR DISCHARGE: * A1c indicates excellent outpatient control * Resume outpatient regimen on discharge
[2017-04-15 12:00] VITALS: O2SAT 94
[2017-04-15 12:02] VITALS: BP 124/76; PULSE 70; TEMP 36.7; O2SAT 95
--- NOTE | 2017-04-15 13:02 | Progress Note ---
Subjective Date of Service: Apr 15, 2017. Subjective Pt evaluation today including: conversation w/ patient, physical exam, lab review, review of studies, review of inpatient medication list Saw/examined the patient in room 284 She's doing well Denies chest pain, shortness of breath No other issues at this point Eager to get home Problem List Medical Problems: (1) Altered mental status Status: Acute (2) Foreign body entering through skin Status: Acute (3) Influenza Status: Acute (4) N&V (nausea and vomiting) Status: Acute (5) Overdose Status: Acute (6) UTI (urinary tract infection) Status: Acute Review of Systems Constitutional: No fever, No chills Respiratory: No cough, No sputum, No shortness of breath Cardiac: No chest pain Abdomen: No pain, No nausea, No vomiting, No diarrhea Medications Current Inpatient Medications Medications (Trade) Dose Ordered Sig/Travis Route Start Time Stop Time Status Last Admin Dose Admin Enoxaparin Sodium (Lovenox Inj) 40 mg DAILY SC 04/11/17 09:00 05/11/17 08:59 04/15/17 08:49 40 MG Ondansetron HCl (Zofran Inj) 4 mg Q6H PRN IV 04/10/17 14:30 05/10/17 14:29 04/11/17 22:29 4 MG Glucose (Glucose 40% Gel) 15-30 GRAMS 15 GRAMS... UD PRN PO 04/10/17 14:30 05/10/17 14:29 Glucose (Glucose Chew Tab) 4-8 Tablets 4 Tabl... UD PRN PO 04/10/17 14:30 05/10/17 14:29 Dextrose (Dextrose 50% 50ML Syringe) 25-50ML OF 50% DW IV FOR... UD PRN IV 04/10/17 14:30 05/10/17 14:29 04/10/17 17:28 25 ML Glucagon (Glucagon Inj) 1 mg UD PRN SQ 04/10/17 14:30 05/10/17 14:29 Miconazole Nitrate (Desenex Powder) 1 appln TID PRN EXT 04/10/17 21:30 05/10/17 21:29 04/13/17 08:44 1 APPLN Acetaminophen (Tylenol Tab) 650 mg Q4H PRN PO 04/11/17 04:30 05/11/17 04:29 04/11/17 21:16 650 MG Insulin Aspart (novoLOG ASPART) SLIDING SCALE If C... ACHS SC 04/11/17 17:10 05/11/17 11:59 04/15/17 08:57 16 UNITS Ciprofloxacin HCl (Ciloxan 0.3% Op Oint) 1 appln HS OPR 04/12/17 21:00 04/22/17 20:59 04/12/17 21:00 1 APPLN Nitroglycerin (Nitrostat Tab) 0.4 mg PRN PRN SL 04/12/17 06:45 05/12/17 06:44 Aspirin (Ecotrin Tab) 81 mg QAM PO 04/13/17 09:00 05/13/17 08:59 04/15/17 08:49 81 MG Ciprofloxacin HCl (Ciloxan 0.3% Op Oint) 1 appln HS OPL 04/12/17 21:00 04/22/17 20:59 04/14/17 21:11 1 APPLN Brimonidine Tartrate (Alphagan-P 0.15% Oph Soln) 1 drops BID OP 04/12/17 21:00 05/12/17 20:59 04/15/17 08:48 1 DROPS Nitrofurantoin Macrocrystals (Macrobid Cap) 100 mg BID PO 04/12/17 21:00 04/17/17 20:59 04/15/17 08:48 100 MG Miscellaneous Information (Consult Glycemic Management Pharmacy) 1 ea UD PRN N/A 04/13/17 14:33 05/13/17 14:32 Insulin Glargine (Lantus Solostar Pen) SEE PROTOCOL BID SC 04/13/17 21:00 05/13/17 20:59 04/15/17 08:56 50 UNITS Objective Vital Signs Date Time Temp Pulse Resp B/P (MAP) Pulse Ox O2 Delivery O2 Flow Rate FiO2 04/15/17 12:02 36.7 70 18 124/76 (92) 95 Room Air 04/15/17 10:40 36.6 60 18 95 Room Air 04/15/17 07:44 36.6 60 18 126/77 (93) 95 Room Air 04/15/17 07:39 94 Room Air 04/15/17 04:17 36.7 73 18 123/70 (87) 93 Room Air 04/15/17 04:00 Room Air 04/15/17 00:00 Room Air 04/14/17 23:22 36.9 74 18 129/74 (92) 93 Room Air 04/14/17 20:15 94 Room Air 04/14/17 19:38 36.9 74 18 138/67 (90) 95 Room Air 04/14/17 16:22 36.7 75 18 148/74 (98) 96 Room Air 04/14/17 16:00 94 Room Air 04/14/17 13:21 92 Room Air Physical Exam General Appearance: no apparent distress, + obese Eyes: + pertinent finding (blind) Respiratory/Chest: chest non-tender, lungs clear, normal breath sounds, no respiratory distress, no accessory muscle use Cardiovascular: regular rate, rhythm, no edema, no murmur Neurologic/Psychiatric: no motor/sensory deficits, alert, normal mood/affect Laboratory Results Last 24 Hours Test 04/14/17 15:32 04/14/17 19:24 04/15/17 07:14 04/15/17 07:34 Bedside Glucose 174 mg/dl 219 mg/dl 122 mg/dl White Blood Count 11.19 K/uL Red Blood Count 4.51 M/uL Hemoglobin 12.6 g/dL Hematocrit 40.3 % Mean Corpuscular Volume 89.4 fL Mean Corpuscular Hemoglobin 27.9 pg Mean Corpuscular Hemoglobin Concent 31.3 g/dl RDW Standard Deviation 46.5 fL RDW Coefficient of Variation 14.3 % Platelet Count 295 K/uL Mean Platelet Volume 9.9 fL Sodium Level 137 mmol/L Potassium Level 3.9 mmol/L Chloride Level 102 mmol/L Carbon Dioxide Level 29 mmol/L Anion Gap 6.0 mmol/L Blood Urea Nitrogen 16 mg/dl Creatinine 1.08 mg/dl Est Creatinine Clear Calc Drug Dose 71.9 ml/min Estimated GFR () 61.5 Estimated GFR (Non- 53.1 BUN/Creatinine Ratio 14.4 Random Glucose 133 mg/dl Calcium Level 9.4 mg/dl Test 04/15/17 11:18 Bedside Glucose 163 mg/dl Assessment and Plan 67 yo F with AMS possibly 2/2 Ativan overdose. She is up and awake today and mentating at baseline. We had a long conversation about her independence and limitations at home and she told me she has some systems set up such as magnetic labels for her medications and various other household items that hep her to ID them more accurately. She is also fine with temporary rehab so she can get home and be independent as opposed to having to depend on family members which makes her more comfortable. She reports one episode of chest pain that was described as a dull ache that was resolved with nitro this morning. She denies any associated symptoms such as palpitations, diaphoresis, lightheadedness or nausea. She reports taking occasional nitro at home but less frequently than monthly. She is not very active at baseline and is even more deconditioned from recent events. Cards to see her today-initial cardiac enzymes are negative and she remains symptom free since the nitro this morning. 04/15 Plan to d/c home with home health services today can stop antibiotics for UTI continue outpatient DM meds as outpatient will try to taper some of her medications to prevent polypharmacy Update on 04/14 her encephalopathy likely from Ativan overdose as per , who states there are about 18 pills missing from her bottle Patient states this was unintentional, and accidental; no SI, no depression Denies any further chest pain, appreciate cardiology - no further medications due to polypharmacy issues will d/c on antibiotics for UTI likely d/c on 04/15 to home with home health services 1. AMS-resolved likely multifactorial encephalopathy secondary to UTI, possible unintentional Ativan vs. Elavil overdose. working well with PT/OT - plan to discharge home with home health on 04/14 2. LAQUITA-CPAP used at home up until recent cornea infection with eye surgery. 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 3. UTI-Rocephin switched to Macrobid based on culture results. 4. CKD III-at baseline. 5. DMII-on insulin at home. Pharmacy has been consulted to adjust insulin. Controlled overnight. Cont ISS/carb coverage and Lantus 6. Hypokalemia-resolved. 7. Obesity 8. Recent corneal infection and visual loss-eye drops as ordered. Cont working with Case Management for options for low light services at home. DVT proph-Lovenox Full code Dispo-likely to rehab, awaiting cardiology evaluation
--- NOTE | 2017-04-15 13:20 | Discharge Instructions ---
Discharge Instructions Date of Service Apr 15, 2017. Admission Reason for Admission: Altered Mental Status Discharge Discharge Diagnosis / Problem: Altered Mental Status secondary to Accidental Overdose Discharge Goals Goal(s): Decrease discomfort, Improve function, Diagnostic testing, Therapeutic intervention Activity Recommendations Activity Limitations: resume your previous activity . Instructions / Follow-Up Instructions / Follow-Up Please follow-up with Dr. Lozano (covering for Dr. Umanzor) on April 22 at 3:25PM * You do not need antibiotics, you have finished your course of antibiotics for a urinary tract infection * You will be discharged with home health who will help with your medications at home Current Hospital Diet Patient's current hospital diet: AHA Diet (Heart Healthy), Diabetes Type 2 Diet Discharge Diet Recommended Diet: AHA Diet (Heart Healthy), Diabetes Type 2 Diet Pending Studies Studies pending at discharge: no Laboratory Results Hemoglobin A1c Test 04/11/17 05:55 Range/Units Estimated Average Glucose 154 mg/dl Hemoglobin A1c 7.0 H 4.5-5.6 % Medical Emergencies . Who to Call and When: Medical Emergencies: If at any time you feel your situation is an emergency, please call 911 immediately. . Non-Emergent Contact Non-Emergency issues call your: Primary Care Provider . . "Provider Documentation" section prepared by Hortencia Casey. . VTE Core Measure Inpt VTE Proph given/why not?: Enoxaparin (Lovenox)SQ
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
== END 2017-04-15 15:35 | disposition home health service (06) | DRG 917 ==
LOC: EDBD 11:23 → C.EDC 11:24 → C.MED 14:36 → ENRESERV 15:07 → C.MED 04-13 04:51
PROVIDERS: ADMIT Hospitalist; ATTEND Family Medicine
DX: T42.4X1A Poisoning by benzodiazepines, accidental (unintentional), initial encounter (principal); G92 Toxic encephalopathy; Z68.42 Body mass index [BMI] 45.0-49.9, adult; N39.0 Urinary tract infection, site not specified; N18.3 Chronic kidney disease, stage 3 (moderate); E11.22 Type 2 diabetes mellitus with diabetic chronic kidney disease; E11.40 Type 2 diabetes mellitus with diabetic neuropathy, unspecified; E87.6 Hypokalemia; E78.5 Hyperlipidemia, unspecified; I12.9 Hypertensive chronic kidney disease with stage 1 through stage 4 chronic kidney disease, or unspecified chronic kidney disease; I48.0 Paroxysmal atrial fibrillation; H54.7 Unspecified visual loss; E66.9 Obesity, unspecified; G47.33 Obstructive sleep apnea (adult) (pediatric); Z79.4 Long term (current) use of insulin; Z79.52 Long term (current) use of systemic steroids; Z79.82 Long term (current) use of aspirin; Z79.899 Other long term (current) drug therapy; Z88.1 Allergy status to other antibiotic agents; Z88.2 Allergy status to sulfonamides; Z87.891 Personal history of nicotine dependence

== ENCOUNTER 2019-10-19 21:05 | Inpatient (IN) ==
[2019-10-19] MEDS ORDERED: ACETAMINOPHEN 1,000 MG/100 ML VIAL IV STA (21:50)
[2019-10-19 22:09] LABS: Basophils # (auto) 0.01 K/uL (0-0.2); Basophils % (auto) 0.1 %; Eosinophils # (auto) 0.05 K/uL (0-0.5); Eosinophils % (auto) 0.4 %; Hematocrit (blood only) 43.4 % (37-47); Hemoglobin 13.9 g/dL (12.0-16.0); Immature Granulocytes # (auto) 0.08 K/uL (0.00-0.02); Immature Granulocytes % (auto) 0.6 %; Lymphocytes # (auto) 0.21 K/uL (1.2-3.4); Lymphocytes % (auto) 1.6 %; Mean Corpuscular Hemoglobin 30.8 pg (25-34); Mean Corpuscular Volume 96.2 fL (80-100); Mean Platelet Volume 10.7 fL (7.4-10.4); Monocytes # (auto) 0.13 K/uL (0.11-0.59); Neutrophils # (auto) 13.02 K/uL (1.4-6.5); Neutrophils % (auto) 96.3 %; Platelet Count 150 K/uL (130-400); RDW Coefficient of Variation 13.9 % (11.5-14.5); RDW Standard Deviation 48.4 fL (36.4-46.3); Red Blood Count 4.51 M/uL (4.2-5.4)
[2019-10-19] MEDS: HYDROmorphone INJ 0.5 MG/0.5 ML SYR IV PRN (22:11)
[2019-10-19 22:14] LABS: Appearance Urine Cloudy (Clear); Bacteria Urine Automated 4+ (Negative); Bilirubin Urine Negative (Negative); Blood Urine 1+ (Negative); Color Urine Yellow; Epithelial Cell Urine Auto >30 /lpf (0-5); Glucose Urine UA Negative (Negative); Ketones Urine Negative (Negative); Leukocyte Esterase Urine 3+ (Negative); Nitrite Urine Positive (Negative); Protein Urine 2+ (Negative); Specific Gravity Urine 1.014 (1.000-1.030); Urobilinogen Urine Negative (Negative); WBC Urine Automated >30 /hpf (0-5); pH Urine 6.5 (4.5-7.5)
[2019-10-19 22:21] LABS: Alanine Aminotransferase 18 U/L (12-78); Albumin Level 3.4 gm/dl (3.4-5.0); Aspartate Aminotransferase 16 U/L (15-37); Blood Urea Nitrogen 13 mg/dl (7-18); Calcium 9.6 mg/dl (8.5-10.1); Carbon Dioxide 27 mmol/L (21-32); Chloride 107 mmol/L (98-107); Est GFR (African American) 76.6; Est GFR (Non-African American) 66.1; Glucose 105 mg/dl (70-99); Magnesium 1.2 mg/dl (1.8-2.4); Potassium 3.3 mmol/L (3.5-5.1); Sodium 142 mmol/L (136-145)
[2019-10-19 22:24] LABS: Partial Thromboplastin Ratio 0.7; Prothrombin Time 10.9 Seconds (9.0-12.0)
[2019-10-19 22:26] LABS: Alkaline Phosphatase 109 U/L (45-117); Bilirubin,Total 0.8 mg/dl (0.2-1); Globulin 3.4 gm/dl (2.5-4.0); Total Protein 6.8 gm/dl (6.4-8.2); Troponin I < 0.015 ng/ml (0-0.045)
[2019-10-19] MEDS ORDERED: PIPERACILLIN/TAZOBACTAM 4.5 GM/120 ML BAG IV ONE (23:35)
[2019-10-19] MEDS ORDERED: POTASSIUM CHLORIDE 20 MEQ TABCR PO STA (23:35)
[2019-10-19] MEDS ORDERED: PIPERACILL/TAZOBAC CONSULT ACTIVE PRN (23:35)
[2019-10-19] MEDS ORDERED: IOVERSOL 100ml IV PRN (23:52)
[2019-10-20] MEDS: HYDROmorphone INJ 0.5 MG/0.5 ML SYR IV PRN ×5 (00:15→21:04)
[2019-10-20] MEDS ORDERED: DAPTOMYCIN CONSULT ACTIVE PRN (00:49)
[2019-10-20] MEDS ORDERED: DAPTOmycin 500 MG in SYRINGE 0 ML IV ONE (00:49)
--- NOTE | 2019-10-20 00:55 | Emergency Department Note ---
History of Present Illness General Chief complaint: Illness Stated complaint: abd pain/fever Time Seen by Provider: 10/19/19 21:41 Source: patient, family (), EMS, RN notes reviewed and old records reviewed Mode of arrival: EMS Limitations: no limitations History of Present Illness Provider complaint: severe pain, fever Onset (ago): hour(s) 6 Location: abdomen Radiation: back Severity: severe Pain Consistency: + colicky Maximum Pain Intensity: 10 Current Pain Intensity: 10 Quality: + sharp Relieved By: + immobilization Exacerbated By: + movement Associated symptoms: + fever/chills and + nausea/vomiting Treatments prior to arrival: none This is a 69-year-old female who presents emergency department complaining of diffuse abdominal pain that radiates into her back. The patient reports the pain is been ongoing for the past several hours. She recently went to [place] for a liver biopsy and was diagnosed with hepatocellular carcinoma. She reports the pain started several hours ago. She has been trying to move her bowels. Upon arrival to the emergency department she has a fever here. She reports immobilization makes the pain better however movement makes the pain worse. She describes the pain as a burning. Home Medications Home Medications Medication Instructions Recorded Confirmed Type Biotene Moisturizing Mouth 1 spray MUCOUS MEMBRANE QID 11/02/18 10/20/19 History Creon 1 cap PO AC 11/02/18 10/20/19 History Novolin 70/30 U-100 Insulin 85 unit SUBCUT BID 11/02/18 10/20/19 History Novolin R Regular U-100 Insuln 1 sliding scale dose SUBCUT QID 11/02/18 10/20/19 History acetaminophen [Tylenol Arthritis 1,300 mg PO HS 11/02/18 10/20/19 History Pain] albuterol sulfate 2.5 mg INHALATION Q4 PRN 11/02/18 10/20/19 History albuterol sulfate [ProAir HFA] 2 puff INHALATION QID 11/02/18 10/20/19 History amitriptyline 25 mg PO HS 11/02/18 10/20/19 History ascorbic acid (vitamin C) 1 g PO QAM 11/02/18 10/20/19 History aspirin [Aspirin Childrens] 162 mg PO HS 11/02/18 10/20/19 History atorvastatin 40 mg PO HS 11/02/18 10/20/19 History cyanocobalamin (vitamin B-12) 1,000 mcg PO QPM 11/02/18 10/20/19 History erythromycin 1 applic OPHTHALMIC (EYE) QID 11/02/18 10/20/19 History ferrous sulfate 325 mg PO 1200 11/02/18 10/20/19 History fluticasone propionate [Flonase 2 spray INTRANASAL QAM 11/02/18 10/20/19 History Allergy Relief] folic acid 1 mg PO QAM 11/02/18 10/20/19 History gabapentin 400 mg PO TID 11/02/18 10/20/19 History hydroxychloroquine [Plaquenil] 400 mg PO HS 11/02/18 10/20/19 History latanoprost (PF) 1 drp OPHTHALMIC (EYE) HS 11/02/18 10/20/19 History levothyroxine 125 mcg PO QAM 11/02/18 10/20/19 History lorazepam 0.5 mg PO TID PRN 11/02/18 10/20/19 History meclizine 25 mg PO TID PRN 11/02/18 10/20/19 History methotrexate sodium 15 mg PO WK 11/02/18 10/20/19 History multivitamin with iron 1 tab PO QDL 11/02/18 10/20/19 History nitroglycerin 0.4 mg SUBLINGUAL UD PRN 11/02/18 10/20/19 History omeprazole 20 mg PO QAM 11/02/18 10/20/19 History potassium chloride 20 meq PO BID 11/02/18 10/20/19 History prednisone 5 mg PO QAM 11/02/18 10/20/19 History timolol 1 drp OPL BID 11/02/18 10/20/19 History torsemide 20 mg PO QAM 11/02/18 10/20/19 History bacitracin-polymyxin B 3.5 g OPR QID 10/20/19 10/20/19 History brimonidine 1 drp OPL BID 10/20/19 10/20/19 History cyanocobalamin (vitamin B-12) 1,500 mcg PO DAILY 10/20/19 10/20/19 History [Vitamin B-12] ergocalciferol (vitamin D2) 1,250 mcg PO WK 10/20/19 10/20/19 History tizanidine 2 mg PO Q6 PRN 10/20/19 10/20/19 History Allergies Allergy/AdvReac Type Severity Reaction Status Date / Time cephalexin Allergy Severe Anaphylaxis Verified 10/20/19 01:50 Cephalosporins Allergy Severe Anaphylaxis Verified 10/20/19 01:50 Sulfa (Sulfonamide Allergy Intermediate Hives Verified 10/20/19 01:50 Antibiotics) butorphanol AdvReac Intermediate RAPID HEART Verified 10/20/19 05:38 Cipro AdvReac Mild nausea Verified 04/12/17 12:39 ciprofloxacin AdvReac Mild nausea Verified 10/20/19 01:50 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, sx only History of colon polyps History of gastric ulcer History of sinus problem reason for nebulizer and inhalers prn Hyperlipidemia Hypothyroidism Liver mass scheduled for biopsy @ [facility] [place] 11/08/18 Migraine Myocardial Infarction approx 10yrs ago was told "looked as though I had a heart attack at some point, but didnt know it" Nausea and vomiting after administration of anesthetic agent Pancreatitis per pt has had over 15 times Rheumatoid arthritis reason for steriod Sleep apnea CPAP Transient ischemic attack (TIA) x2 20+yrs ago--per MRIs had them--does not follow with neurologist, no deficits Surgical History History of appendectomy History of bilateral cataract extraction History of biopsy of bladder showed chronic cystitis History of carpal tunnel release of both wrists History of cholecystectomy History of colonoscopy History of detached retina repair x4 on right eye History of dilatation and curettage x3 History of esophagogastroduodenoscopy (EGD) History of liver biopsy BENIGN MASS History of lumbar discectomy History of partial thyroidectomy right side removed d/t papillary cancer History of tarsorrhaphy BILT--right eye closed shut, left eye partly closed History of tooth extraction all top teeth, most of bottom History of total hysterectomy with bilateral salpingo-oophorectomy (BSO) S/P foot surgery, left "stepped on a needle and had to have it removed" Family History Father Family history of reaction to anesthesia difficulty waking Family history of diabetes mellitus Mother Family history of diabetes mellitus Sister Family history of diabetes mellitus Brother Family history of diabetes mellitus Grandmother (Maternal) Family history of diabetes mellitus Grandmother (Paternal) Family history of diabetes mellitus Social History Preferred Language: Georgian Communication Ability: Effective Communication Tools: Other Telecommunications Network Planner Required: Yes Beliefs That Will Affect Care: None marital status: Current Living Situation: Spouse Other Information That Helps Us Care for You: No Feels Safe at Home: Yes Smoking Status: Never smoker Second Hand Exposure: Yes (parents smoked/ smoked) ; Hx Alcohol Use: No Hx Substance Use: No Review of Systems A total of 10 systems reviewed and were otherwise negative Physical Exam Vital Signs Vital Signs - 24 hr 10/19/19 21:22 10/19/19 21:58 10/19/19 22:52 Temperature 37.7 C H Temperature Source Oral Pulse Rate 89 Pulse Rate [Apical] 89 Pulse Rhythm Regular Pulse Strength Normal Respiratory Rate 20 18 Respiratory Effort / Characteristics Non-Labored Spontaneous Respiratory Depth Normal Blood Pressure 149/83 H Blood Pressure [Right Arm] 142/69 H Blood Pressure Mean 105 Blood Pressure Mean [Right Arm] 93 Blood Pressure Position Sitting Pulse Oximetry 99 93 95 Oxygen Delivery Method Nasal Cannula Room Air Nasal Cannula Oxygen Flow Rate 3 3 Sepsis Recent Fever Within 48 Hours Yes Sepsis New/Unexplained Change in Mental Status No Sepsis Action Taken by Nursing No Action Required VITAL SIGNS - Vital signs and nursing notes were reviewed. GENERAL - 69-year-old female appearing stated age who is in moderate distress. Communicates well with provider and answers questions appropriately. SKIN - Without rashes. HEAD - NC/AT. EYES - PERRL with EOMI bilaterally. Sclera anicteric. Palpebral conjunctiva pink and moist with no injection noted. EARS - No deformities of external structures noted on gross examination bila terally. No pain elicited with palpation of the tragus bilaterally. External auditory canals without discharge or otorrhea. Tympanic membranes pearly marcano without retraction or bulging. No fluid or purulent material visualized behind the TM. Handle of malleus, umbo, cone of light, pars tensa/flaccid all easily visualized. NOSE - Midline and without cyanosis. No epistaxis or purulent drainage noted. Septum midline without deviation or septal hematoma noted. MOUTH/OROPHARYNX - Without perioral cyanosis. Buccal mucosa pink and moist and without leukoplakia. Tongue midline with equal elevation of palate bilaterally. No tonsillar hypertrophy, erythema, or exudates noted. dentition noted. NECK - Neck with FROM. Supple to palpation. lymphadenopathy noted. No nuchal rigidity. LUNGS - Chest wall symmetric without accessory muscle use, intercostals retractions, or central cyanosis. Normal vesicular breath sounds CTA B/L. No wheezes, rales, or rhonchi appreciated. CARDIAC - RRR with S1/S2. No murmur, rubs, or gallops appreciated. ABDOMEN - Abdominal contour without pulsations or visible masses. BS normoactive all four quadrants. No tenderness, palpable masses, hepatosplenomegaly, or ascites noted. EXTREMITIES - No clubbing or peripheral cyanosis. No pretibial edema present. +3/5 radial, posterior tibial, and dorsalis pedis pulses palpated throughout. +5/5 strength noted in UE/LE bilaterally. NEUROLOGIC - Cranial nerves II through XII grossly intact. Sensory intact to light touch throughout. Patellar reflexes +2/4. PSYCH - A&Ox3 and cooperates fully with examiner. Pt is very pleasant and interacts well with examiner. Course Administered Medications Acetaminophen (Tylenol) 650 mg PO Q6H [facility] Stop: 11/20/19 17:59 Last Admin: 10/21/19 17:48 Dose: 650 mg Documented by: [id number] Amitriptyline HCl (Elavil) 25 mg PO HS [facility] Stop: 11/19/19 20:59 Last Admin: 10/20/19 21:06 Dose: 25 mg Documented by: [id number] Lipase/Protease/Amylase (Pancreaze (Lipase 10,500u)) 2 cap PO AC [facility] Stop: 11/19/19 07:29 Last Admin: 10/21/19 16:34 Dose: 2 cap Documented by: [id number] Admin: 10/21/19 11:49 Dose: 2 cap Documented by: [id number] Admin: 10/21/19 07:40 Dose: 2 cap Documented by: [id number] Admin: 10/20/19 16:23 Dose: 2 cap Documented by: [id number] Admin: 10/20/19 12:55 Dose: 2 cap Documented by: [id number] Admin: 10/20/19 07:57 Dose: 2 cap Documented by: [id number] Ascorbic Acid (Vitamin C) 1,000 mg PO QAM [facility] Stop: 11/19/19 08:59 Last Admin: 10/21/19 07:40 Dose: 1,000 mg Documented by: [id number] Admin: 10/20/19 07:57 Dose: 1,000 mg Documented by: [id number] Atorvastatin Calcium (Lipitor) 40 mg PO HS [facility] Stop: 11/19/19 20:59 Last Admin: 10/20/19 21:07 Dose: 40 mg Documented by: [id number] Bacitracin/Polymyxin B Sulfate (Polysporin) 1 appln OPR QID [facility] Stop: 11/19/19 08:59 Last Admin: 10/21/19 16:33 Dose: 1 appln Documented by: [id number] Admin: 10/21/19 11:49 Dose: 1 appln Documented by: [id number] Admin: 10/21/19 07:41 Dose: 1 appln Documented by: [id number] Admin: 10/20/19 21:08 Dose: 1 appln Documented by: [id number] Admin: 10/20/19 16:23 Dose: 1 appln Documented by: [id number] Admin: 10/20/19 12:57 Dose: 1 appln Documented by: [id number] Admin: 10/20/19 08:00 Dose: 1 appln Documented by: [id number] Brimonidine Tartrate (Alphagan 0.2%) 1 drops OPL BID [facility] Stop: 11/19/19 08:59 Last Admin: 10/21/19 07:40 Dose: 1 drops Documented by: [id number] Admin: 10/20/19 21:05 Dose: 75 drops Documented by: [id number] Admin: 10/20/19 07:59 Dose: 1 drops Documented by: [id number] Cyanocobalamin (Vitamin B-12) 1,000 mcg PO QPM [facility] Stop: 11/19/19 20:59 Last Admin: 10/20/19 21:11 Dose: 1,000 mcg Documented by: [id number] Erythromycin (Erythromycin) 1 appln OP QID [facility] Stop: 10/30/19 08:59 Last Admin: 10/21/19 16:34 Dose: 1 appln Documented by: [id number] Admin: 10/21/19 11:49 Dose: 1 appln Documented by: [id number] Admin: 10/21/19 07:41 Dose: 1 appln Documented by: [id number] Admin: 10/20/19 21:06 Dose: 1 appln Documented by: [id number] Admin: 10/20/19 16:23 Dose: 1 appln Documented by: [id number] Admin: 10/20/19 12:57 Dose: 1 appln Documented by: [id number] Admin: 10/20/19 08:00 Dose: 1 appln Documented by: [id number] Ferrous Sulfate (Feosol) 325 mg PO 1200 [facility] Stop: 11/19/19 11:59 Last Admin: 10/21/19 11:49 Dose: 325 mg Documented by: [id number] Admin: 10/20/19 11:38 Dose: 325 mg Documented by: [id number] Fluticasone Propionate (Fl[facility]ase) [facility]ays [facility] Stop: 11/19/19 08:59 Last Admin: 10/21/19 07:41 Dose: 2 sprays Documented by: [id number] Admin: 10/20/19 10:42 Dose: 2 sprays Documented by: [id number] Folic Acid (Folvite) [facility] Stop: 11/19/19 08:59 Last Admin: 10/21/19 07:39 Dose: 1 mg Documented by: [id number] Admin: 10/20/19 07:58 Dose: 1 mg Documented by: [id number] Aztreonam 2,000 mg/ Dextrose 120 mls @ 100 mls/hr IV Q8H [facility]; Protocol Stop: 10/30/19 05:12 Last Infusion: 10/21/19 15:19 Dose: 0 mls/hr Documented by: [id number] Admin: 10/21/19 14:17 Dose: 100 mls/hr Documented by: [id number] Infusion: 10/21/19 07:03 Dose: 0 mls/hr Documented by: [id number] Admin: 10/21/19 05:43 Dose: 100 mls/hr Documented by: [id number] Infusion: 10/21/19 01:56 Dose: 100 mls/hr Documented by: [id number] Admin: 10/21/19 00:44 Dose: 100 mls/hr Documented by: [id number] Infusion: 10/20/19 16:31 Dose: 0 mls/hr Documented by: [id number] Admin: 10/20/19 14:53 Dose: 100 mls/hr Documented by: [id number] Infusion: 10/20/19 07:49 Dose: 0 mls/hr Documented by: [id number] Admin: 10/20/19 06:25 Dose: 100 mls/hr Documented by: [id number] Parenteral Electrolytes (Normosol-R) 1,000 mls @ 125 mls/hr IV .Q8H [facility] Stop: 11/19/19 15:44 Last Admin: 10/21/19 16:33 Dose: 125 mls/hr Documented by: [id number] Infusion: 10/21/19 15:44 Dose: 125 mls/hr Documented by: [id number] Admin: 10/21/19 07:44 Dose: 125 mls/hr Documented by: [id number] Infusion: 10/21/19 07:44 Dose: 125 mls/hr Documented by: [id number] Admin: 10/21/19 00:44 Dose: 125 mls/hr Documented by: [id number] Infusion: 10/21/19 00:22 Dose: 125 mls/hr Documented by: [id number] Admin: 10/20/19 16:22 Dose: 125 mls/hr Documented by: [id number] Insulin Aspart (Novolog Flexpen) 0 units SC ACHS [facility] Stop: 11/19/19 07:29 Last Admin: 10/21/19 16:35 Dose: 33 units Documented by: [id number] Cosigned by: [id number] Admin: 10/21/19 11:46 Dose: 42 units Documented by: [id number] Cosigned by: [id number] Admin: 10/21/19 07:43 Dose: 34 units Documented by: [id number] Cosigned by: [id number] Admin: 10/20/19 21:07 Dose: 10 units Documented by: [id number] Cosigned by: [id number] Admin: 10/20/19 16:50 Dose: 38 units Documented by: [id number] Cosigned by: [id number] Admin: 10/20/19 12:56 Dose: 21 units Documented by: [id number] Cosigned by: [id number] Admin: 10/20/19 08:18 Dose: 12 units Documented by: [id number] Cosigned by: [id number] Insulin Human NPH (Novolin N Nph) 0 units SC BIDM [facility]; Protocol Stop: 11/19/19 20:59 Last Admin: 10/21/19 16:35 Dose: 50 units Documented by: [id number] Cosigned by: [id number] Admin: 10/21/19 07:43 Dose: 70 units Documented by: [id number] Cosigned by: [id number] Admin: 10/20/19 21:52 Dose: 60 units Documented by: [id number] Cosigned by: [id number] Latanoprost (Xalatan Oph) 1 drops OP HS [facility] Stop: 11/19/19 20:59 Last Admin: 10/20/19 21:05 Dose: 1 drops Documented by: [id number] Levothyroxine Sodium (Synthroid) 125 mcg PO DAILYBB [facility] Stop: 11/19/19 06:29 Last Admin: 10/21/19 05:43 Dose: 125 mcg Documented by: [id number] Admin: 10/20/19 06:34 Dose: 125 mcg Documented by: [id number] Multivitamins (Multivitamin Tab) 1 tab PO QDL [facility] Stop: 11/19/19 11:29 Last Admin: 10/21/19 11:49 Dose: 1 tab Documented by: [id number] Admin: 10/20/19 11:38 Dose: 1 tab Documented by: [id number] Pantoprazole Sodium (Protonix) 40 mg PO QAM [facility] Stop: 11/19/19 08:59 Last Admin: 10/21/19 07:39 Dose: 40 mg Documented by: [id number] Admin: 10/20/19 07:58 Dose: 40 mg Documented by: [id number] Phenazopyridine HCl (Pyridium) 100 mg PO TID [facility] Stop: 11/19/19 09:39 Last Admin: 10/21/19 14:17 Dose: 100 mg Documented by: [id number] Admin: 10/21/19 07:39 Dose: 100 mg Documented by: [id number] Admin: 10/20/19 21:08 Dose: 100 mg Documented by: [id number] Admin: 10/20/19 12:58 Dose: 100 mg Documented by: [id number] Admin: 10/20/19 10:42 Dose: 100 mg Documented by: [id number] Timolol Maleate (Timoptic 0.5% Oph) 1 drops OP BID [facility] Stop: 11/19/19 08:59 Last Admin: 10/21/19 07:41 Dose: 1 drops Documented by: [id number] Admin: 10/20/19 21:09 Dose: 1 drops Documented by: [id number] Admin: 10/20/19 08:00 Dose: 1 drops Documented by: [id number] Tizanidine HCl (Zanaflex) 2 mg PO Q6 PRN PRN Reason: Muscle Spasm Stop: 11/19/19 05:12 Last Admin: 10/20/19 08:15 Dose: 2 mg Documented by: [id number] Discontinued Medications Acetaminophen (Tylenol) 650 mg PO Q4H PRN PRN Reason: pain/fever Stop: 11/19/19 05:12 Last Admin: 10/20/19 07:55 Dose: 650 mg Documented by: [id number] Acetaminophen (Tylenol) 1,000 mg PO HS [facility] Stop: 11/19/19 20:59 Last Admin: 10/20/19 21:09 Dose: 1,000 mg Documented by: [id number] Albuterol (Ventolin Hfa) 2 puffs INH QIDR [facility] Stop: 11/19/19 06:59 Last Admin: 10/20/19 10:18 Dose: Not Given Documented by: [id number] Gabapentin (Neurontin) 400 mg PO TID [facility] Stop: 11/19/19 08:59 Last Admin: 10/20/19 07:58 Dose: 400 mg Documented by: [id number] Hydromorphone HCl (Dilaudid) 0.5 mg IV Q15M PRN PRN Reason: Pain Stop: 11/02/19 21:49 Last Admin: 10/20/19 01:54 Dose: 0.5 mg Documented by: [id number] Admin: 10/20/19 00:15 Dose: 0.5 mg Documented by: [id number] Admin: 10/19/19 22:11 Dose: 0.5 mg Documented by: [id number] Hydromorphone HCl (Dilaudid) 0.5 mg IV Q4H PRN PRN Reason: Pain Stop: 11/03/19 05:12 Last Admin: 10/21/19 04:20 Dose: 0.5 mg Documented by: [id number] Admin: 10/21/19 00:50 Dose: 0.5 mg Documented by: [id number] Admin: 10/20/19 21:04 Dose: 0.5 mg Documented by: [id number] Admin: 10/20/19 15:34 Dose: 0.5 mg Documented by: [id number] Admin: 10/20/19 10:41 Dose: 0.5 mg Documented by: [id number] Hydromorphone HCl (Dilaudid) Confirm Administered Dose 0.5 mg .ROUTE .STK-MED ONE Stop: 10/20/19 05:36 Last Admin: 10/20/19 05:38 Dose: 0.5 mg Documented by: [id number] Acetaminophen (Ofirmev) 1,000 mg in 100 mls @ 400 mls/hr IV NOW STA Stop: 10/19/19 22:04 Last Infusion: 10/19/19 23:55 Dose: 0 mls/hr Documented by: [id number] Admin: 10/19/19 22:11 Dose: 400 mls/hr Documented by: [id number] Piperacillin Sod/Tazobactam Sod (Zosyn) 4.5 gm in 120 mls @ 240 mls/hr IV NOW ONE Stop: 10/20/19 00:04 Last Infusion: 10/20/19 05:49 Dose: 0 mls/hr Documented by: [id number] Admin: 10/20/19 00:15 Dose: 240 mls/hr Documented by: [id number] Levofloxacin/Dextrose (Levaquin/D5w) 750 mg in 150 mls @ 100 mls/hr IV NOW STA Stop: 10/20/19 02:18 Last Infusion: 10/20/19 05:49 Dose: 0 mls/hr Documented by: [id number] Admin: 10/20/19 01:40 Dose: 100 mls/hr Documented by: [id number] Daptomycin 500 mg/ Syringe 10 mls @ 5 mls/min IV NOW ONE; Protocol Stop: 10/20/19 00:50 Last Admin: 10/20/19 01:38 Dose: 5 mls/min Documented by: [id number] Insulin Human Regular 4 units/ (Syringe) 0.04 mls @ 0 mls/hr IV ONE STA Stop: 10/20/19 03:51 Last Admin: 10/20/19 07:09 Dose: Not Given Documented by: [id number] Sodium Chloride (Nss 1000ml) 1,000 mls @ 125 mls/hr IV .Q8H [facility] Stop: 10/20/19 18:00 Last Infusion: 10/20/19 14:49 Dose: 0 mls/hr Documented by: [id number] Infusion: 10/20/19 14:21 Dose: 0 mls/hr Documented by: [id number] Infusion: 10/20/19 11:32 Dose: 125 mls/hr Documented by: [id number] Admin: 10/20/19 05:50 Dose: 80 mls/hr Documented by: [id number] Sodium Chloride (Nss 1000ml) 250 mls @ 999 mls/hr IV .Q16M ONE Stop: 10/20/19 11:44 Last Infusion: 10/20/19 12:25 Dose: 0 mls/hr Documented by: [id number] Admin: 10/20/19 11:37 Dose: 999 mls/hr Documented by: [id number] Hydrocortisone Sodium (Succinate 100 mg/ Syringe) 2 mls @ 4 mls/min IV Q8H [facility] Stop: 11/19/19 11:59 Last Admin: 10/21/19 11:48 Dose: 4 mls/min Documented by: [id number] Admin: 10/21/19 04:18 Dose: 4 mls/min Documented by: [id number] Admin: 10/20/19 21:04 Dose: 4 mls/min Documented by: [id number] Admin: 10/20/19 11:42 Dose: 4 mls/min Documented by: [id number] Magnesium Sulfate/Dextrose (Magnesium Sulfate / D5w) 1 gm in 100 mls @ 50 mls/hr IV Q2H [facility] Stop: 10/20/19 19:34 Last Infusion: 10/20/19 19:54 Dose: 50 mls/hr Documented by: [id number] Admin: 10/20/19 17:54 Dose: 50 mls/hr Documented by: [id number] Infusion: 10/20/19 17:54 Dose: 50 mls/hr Documented by: [id number] Admin: 10/20/19 16:21 Dose: 50 mls/hr Documented by: [id number] Infusion: 10/20/19 15:46 Dose: 50 mls/hr Documented by: [id number] Admin: 10/20/19 13:46 Dose: 50 mls/hr Documented by: [id number] Parenteral Electrolytes (Normosol-R) 1,000 mls @ 999 mls/hr IV .Q1H1M ONE Stop: 10/20/19 14:50 Last Infusion: 10/20/19 14:50 Dose: 0 mls/hr Documented by: [id number] Admin: 10/20/19 13:49 Dose: 999 mls/hr Documented by: [id number] Insulin Human Regular 10 units (/ Sodium Chloride) 25.1 mls @ 25 mls/hr SC ONE ONE Stop: 10/20/19 17:45 Last Infusion: 10/20/19 18:31 Dose: 0 mls/hr Documented by: [id number] Cosigned by: [id number] Admin: 10/20/19 17:23 Dose: 25 mls/hr Documented by: [id number] Cosigned by: [id number] Insulin Aspart (Novolog Per Unit) 4 units SC NOW STA Stop: 10/20/19 03:45 Last Admin: 10/20/19 07:09 Dose: Not Given Documented by: [id number] Insulin Aspart (Novolog Per Unit) 4 units SC NOW ONE Stop: 10/20/19 04:46 Last Admin: 10/20/19 04:33 Dose: 4 units Documented by: [id number] Cosigned by: [id number] Insulin Aspart (Novolog Flexpen) 0 units SC 0000 [facility] Stop: 10/21/19 00:01 Last Admin: 10/21/19 00:48 Dose: 6 units Documented by: [id number] Cosigned by: [id number] Insulin Human NPH (Novolin N Nph) [facility] [place] Protocol Stop: 11/19/19 07:59 Last Admin: 10/20/19 08:16 Dose: 25 units Documented by: [id number] Cosigned by: [id number] Insulin Human NPH (Novolin N Nph) 25 units SC ONE ONE; Protocol Stop: 10/20/19 13:01 Last Admin: 10/20/19 12:57 Dose: 25 units Documented by: [id number] Cosigned by: [id number] Iohexol (Omnipaque) Confirm Administered Dose 20 ml INSTIL .STK-MED ONE Stop: 10/20/19 02:54 Last Admin: 10/20/19 03:08 Dose: 25 ml Documented by: [id number] Iohexol (Omnipaque) Confirm Administered Dose 20 ml INSTIL .STK-MED ONE Stop: 10/20/19 03:15 Last Admin: 10/20/19 05:49 Dose: Not Given Documented by: [id number] Ioversol (Optiray 320 100ml) 94 ml IV ONCE PRN PRN Reason: Interaction Checking Stop: 10/23/19 23:51 Last Admin: 10/19/19 23:52 Dose: 94 ml Documented by: [id number] Lorazepam (Ativan) Confirm Administered Dose 0.5 mg .ROUTE .STK-MED ONE Stop: 10/20/19 21:03 Last Admin: 10/20/19 21:22 Dose: Not Given Documented by: [id number] Ondansetron HCl (Zofran) 4 mg IV ONCE PRN PRN Reason: PACU Use Only-Nausea/Vomiting Stop: 10/20/19 11:44 Last Admin: 10/20/19 05:44 Dose: 4 mg Documented by: [id number] Potassium Chloride (Klor-Con M20) 40 meq PO NOW STA Stop: 10/19/19 23:36 Last Admin: 10/20/19 00:15 Dose: 40 meq Documented by: [id number] Potassium Chloride (Klor-Con M20) 20 meq PO BID [facility] Stop: 11/19/19 08:59 Last Admin: 10/20/19 07:56 Dose: 20 meq Documented by: [id number] Potassium Chloride (Jocelyn Ciel Elix) 40 meq PO NOW STA Stop: 10/20/19 06:23 Last Admin: 10/20/19 07:25 Dose: Not Given Documented by: [id number] Potassium Chloride (Jocelyn Ciel Elix) 20 meq PO NOW ONE Stop: 10/20/19 07:01 Last Admin: 10/20/19 07:56 Dose: 20 meq Documented by: [id number] Potassium Chloride (Jocelyn Ciel Elix) 20 meq PO NOW ONE Stop: 10/21/19 07:01 Last Admin: 10/21/19 07:39 Dose: 20 meq Documented by: [id number] Prednisone (Prednisone) 5 mg PO QAM [facility] Stop: 11/19/19 08:59 Last Admin: 10/20/19 07:58 Dose: 5 mg Documented by: [id number] Torsemide (Demadex) 20 mg PO QAM [facility] Stop: 11/19/19 08:59 Last Admin: 10/20/19 07:57 Dose: 20 mg Documented by: [id number] Critical Care Time I have personally spent greater than 90 minutes of critical care time in the direct management of this patient. This includes bedside care, interpretation of diagnostic studies, and testing, discussion with consultants, patient, and family members, and other required patient management activities. This 90 minutes is in excess of all separately billable procedures. Medical Decision Making Differential Diagnosis Appendicitis, ovarian cyst, ovarian torsion, ectopic , TOA, PID, infections, diverticulitis, UTI, obstruction, mesenteric ischemia, aortic pathology, inflammatory bowel disease, renal colic, PUD, pancreatitis, biliary pathology, hernia, volvulus, constipation, as well as other pathologies. Medical Records Attestation: I reviewed the patient's medical records. Home Medications Current Medication List: was personally reviewed by me Laboratory Data Attestation: I reviewed the patient's lab results. Result diagrams: 10/21/19 04:09 10/21/19 04:09 Lab Results 10/19/19 10/19/19 10/19/19 Range/Units 21:45 21:45 21:45 WBC 13.50 H (4.8-10.8) K/uL RBC 4.51 (4.2-5.4) M/uL Hgb 13.9 (12.0-16.0) g/dL Hct 43.4 (37-47) % MCV 96.2 (80-100) fL MCH 30.8 (25-34) pg MCHC 32.0 (32-36) g/dL RDW Std Deviation 48.4 H (36.4-46.3) fL RDW Coeff of Ju[place] 13.9 (11.5-14.5) % Plt Count 150 (130-400) K/uL MPV 10.7 H (7.4-10.4) fL Immature Gran % (Auto) 0.6 % Neut % (Auto) 96.3 % Lymph % (Auto) 1.6 % [place] % (Auto) 1.0 % Eos % (Auto) 0.4 % Baso % (Auto) 0.1 % Neut # (Auto) 13.02 H (1.4-6.5) K/uL Lymph # (Auto) 0.21 L (1.2-3.4) K/uL [place] # (Auto) 0.13 (0.11-0.59) K/uL Eos # (Auto) 0.05 (0-0.5) K/uL Baso # (Auto) 0.01 (0-0.2) K/uL Immature Gran # (Auto) 0.08 H (0.00-0.02) K/uL PT 10.9 (9.0-12.0) Seconds INR 1.0 (0.9-1.1) APTT 20.0 L (21.0-31.0) Seconds PTT Ratio 0.7 Sodium 142 (136-145) mmol/L Potassium 3.3 L (3.5-5.1) mmol/L Chloride 107 (98-107) mmol/L Carbon Dioxide 27 (21-32) mmol/L Anion Gap 8.0 (3-11) BUN 13 (7-18) mg/dl Creatinine 0.89 (0.6-1.2) mg/dl Est Cr Clr Drug Dosing Not Reportable Est GFR ( Amer) 76.6 Est GFR (Non-Af Amer) 66.1 BUN/Creatinine Ratio 15.0 (10-20) Glucose 105 H (70-99) mg/dl Lactate (0.4-2.0) mmol/L Calcium 9.6 (8.5-10.1) mg/dl Magnesium 1.2 L (1.8-2.4) mg/dl Total Bilirubin 0.8 (0.2-1) mg/dl AST 16 (15-37) U/L ALT 18 (12-78) U/L Alkaline Phosphatase 109 (45-117) U/L Troponin I < 0.015 (0-0.045) ng/ml Total Protein 6.8 (6.4-8.2) gm/dl Albumin 3.4 (3.4-5.0) gm/dl Globulin 3.4 (2.5-4.0) gm/dl Albumin/Globulin Ratio 1.0 (0.9-2) Procalcitonin (0-0.5) ng/ml Urine Color Urine Appearance (Clear) Urine pH (4.5-7.5) Ur Specific [place] (1.000-1.030) Urine Protein (Negative) Urine Glucose (UA) (Negative) Urine Ketones (Negative) Urine Blood (Negative) Urine Nitrite (Negative) Urine Bilirubin (Negative) Urine Urobilinogen (Negative) Ur Leukocyte Esterase (Negative) Urine WBC (Auto) (0-5) /hpf Urine RBC (Auto) (0-4) /hpf U Hyaline Cast (Auto) (0-5) /lpf U Epithel Cells (Auto) (0-5) /lpf Urine Bacteria (Auto) (Negative) Urine Yeast 10/19/19 10/19/19 10/19/19 Range/Units 21:45 21:52 22:22 WBC (4.8-10.8) K/uL RBC (4.2-5.4) M/uL Hgb (12.0-16.0) g/dL Hct (37-47) % MCV (80-100) fL MCH (25-34) pg MCHC (32-36) g/dL RDW Std Deviation (36.4-46.3) fL RDW Coeff of Juani (11.5-14.5) % Plt Count (130-400) K/uL MPV (7.4-10.4) fL Immature Gran % (Auto) % Neut % (Auto) % Lymph % (Auto) % [place] % (Auto) % Eos % (Auto) % Baso % (Auto) % Neut # (Auto) (1.4-6.5) K/uL Lymph # (Auto) (1.2-3.4) K/uL [place] # (Auto) (0.11-0.59) K/uL Eos # (Auto) (0-0.5) K/uL Baso # (Auto) (0-0.2) K/uL Immature Gran # (Auto) (0.00-0.02) K/uL PT (9.0-12.0) Seconds INR (0.9-1.1) APTT (21.0-31.0) Seconds PTT Ratio Sodium (136-145) mmol/L Potassium (3.5-5.1) mmol/L Chloride (98-107) mmol/L Carbon Dioxide (21-32) mmol/L Anion Gap (3-11) BUN (7-18) mg/dl Creatinine (0.6-1.2) mg/dl Est Cr Clr Drug Dosing Est GFR ( Amer) Est GFR (Non-Af Amer) BUN/Creatinine Ratio (10-20) Glucose (70-99) mg/dl Lactate 2.9 H* (0.4-2.0) mmol/L Calcium (8.5-10.1) mg/dl Magnesium (1.8-2.4) mg/dl Total Bilirubin (0.2-1) mg/dl AST (15-37) U/L ALT (12-78) U/L Alkaline Phosphatase (45-117) U/L Troponin I (0-0.045) ng/ml Total Protein (6.4-8.2) gm/dl Albumin (3.4-5.0) gm/dl Globulin (2.5-4.0) gm/dl Albumin/Globulin Ratio (0.9-2) Procalcitonin 1.49 H (0-0.5) ng/ml Urine Color Yellow Urine Appearance Cloudy A (Clear) Urine pH 6.5 (4.5-7.5) Ur Specific [place] 1.014 (1.000-1.030) Urine Protein 2+ H (Negative) Urine Glucose (UA) Negative (Negative) Urine Ketones Negative (Negative) Urine Blood 1+ H (Negative) Urine Nitrite Positive A (Negative) Urine Bilirubin Negative (Negative) Urine Urobilinogen Negative (Negative) Ur Leukocyte Esterase 3+ H (Negative) Urine WBC (Auto) >30 H (0-5) /hpf Urine RBC (Auto) 5-10 H (0-4) /hpf U Hyaline Cast (Auto) 5-10 H (0-5) /lpf U Epithel Cells (Auto) >30 H (0-5) /lpf Urine Bacteria (Auto) 4+ H (Negative) Urine Yeast Not Reportable 10/20/19 Range/Units 00:10 WBC (4.8-10.8) K/uL RBC (4.2-5.4) M/uL Hgb (12.0-16.0) g/dL Hct (37-47) % MCV (80-100) fL MCH (25-34) pg MCHC (32-36) g/dL RDW Std Deviation (36.4-46.3) fL RDW Coeff of Juani (11.5-14.5) % Plt Count (130-400) K/uL MPV (7.4-10.4) fL Immature Gran % (Auto) % Neut % (Auto) % Lymph % (Auto) % [place] % (Auto) % Eos % (Auto) % Baso % (Auto) % Neut # (Auto) (1.4-6.5) K/uL Lymph # (Auto) (1.2-3.4) K/uL [place] # (Auto) (0.11-0.59) K/uL Eos # (Auto) (0-0.5) K/uL Baso # (Auto) (0-0.2) K/uL Immature Gran # (Auto) (0.00-0.02) K/uL PT (9.0-12.0) Seconds INR (0.9-1.1) APTT (21.0-31.0) Seconds PTT Ratio Sodium (136-145) mmol/L Potassium (3.5-5.1) mmol/L Chloride (98-107) mmol/L Carbon Dioxide (21-32) mmol/L Anion Gap (3-11) BUN (7-18) mg/dl Creatinine (0.6-1.2) mg/dl Est Cr Clr Drug Dosing Est GFR ( Amer) Est GFR (Non-Af Amer) BUN/Creatinine Ratio (10-20) Glucose (70-99) mg/dl Lactate 1.7 (0.4-2.0) mmol/L Calcium (8.5-10.1) mg/dl Magnesium (1.8-2.4) mg/dl Total Bilirubin (0.2-1) mg/dl AST (15-37) U/L ALT (12-78) U/L Alkaline Phosphatase (45-117) U/L Troponin I (0-0.045) ng/ml Total Protein (6.4-8.2) gm/dl Albumin (3.4-5.0) gm/dl Globulin (2.5-4.0) gm/dl Albumin/Globulin Ratio (0.9-2) Procalcitonin (0-0.5) ng/ml Urine Color Urine Appearance (Clear) Urine pH (4.5-7.5) Ur Specific [place] (1.000-1.030) Urine Protein (Negative) Urine Glucose (UA) (Negative) Urine Ketones (Negative) Urine Blood (Negative) Urine Nitrite (Negative) Urine Bilirubin (Negative) Urine Urobilinogen (Negative) Ur Leukocyte Esterase (Negative) Urine WBC (Auto) (0-5) /hpf Urine RBC (Auto) (0-4) /hpf U Hyaline Cast (Auto) (0-5) /lpf U Epithel Cells (Auto) (0-5) /lpf Urine Bacteria (Auto) (Negative) Urine Yeast Imaging Data Attestation: I personally reviewed and interpreted this imaging study as foll ows: My Impression: 1 view of the chest was interpreted by me shows no evidence of pneumonia congestion or pneumothorax Radiologist's Impression: CT abdomen and pelvis with contrast: 9 x 8 mm obstructing stone of the right UPJ causing mild to moderate hydronephrosis. Additional nonobstructing stones in the right kidney measuring up to 6 mm. 4 x 4 centimeter heterogeneous hypodense mass with scattered areas of fat density in the right hepatic dome is indeterminate. Differential diagnosis includes adenoma or HCC. Recommend MRI or CT liver mass protocol. Status post cholecystectomy. Mild intrahepatic biliary dilation. Dilation of the common bile duct measures up to 1.4 cm which gradually tapers to normal caliber at the distal aspect. Although findings could be within normal limits for the postcholecystectomy changes, recommend correlation with liver function test. Nonenhancing cyst in the inferior right kidney is probably benign. Status post hysterectomy. Appendix is not identified. No bowel wall thickening or obstruction. No free air or fluid. Moderate fat-containing umbilical hernia. Severe degenerative changes at L3 S1 status post probable discectomy and laminectomy. Scattered coronary artery calcifications. Mild aortic atherosclerosis. ECG Data Attestation: I personally reviewed and interpreted this ECG as follows: Indication: + abdominal pain Rate (beats per minute): 91 ECG Intervals/blocks: + Normal QT-c (506) ECG [place]: + Normal ECG ST segments: no ST depression and no ST elevation ECG Findings: + Q waves (Anterior) MDM Narrative Patient was seen and evaluated as above in room B4. Review was performed of nursing notes and vital signs. I did review pertinent previous visits and thomas ent history. After obtaining a thorough history and physical examination the above work up was performed. This 69-year-old female complaining of diffuse abdominal pain. The patient was sent for CAT scan of the abdomen pelvis. This is concerning for a stone. Based on the patient's fever along with her white blood cell count and her urinalysis I am concerned that the stone is infected. For this reason the patient was started on broad-spectrum antibiotics. I did discuss the case with the ur ologist on-call who did agree to take the patient to the operating room. In the meanwhile the patient was started on Dilaudid for pain. The case was also discussed with the hospitalist. An order was placed for continuous cardiac monitoring. The monitor shows a rate of 82 with Normal SInus rhythm. I attest that I have personally reviewed the patient medication list. The patient was evaluated during the global COVID-19 pandemic, and that diagnosis was suspected/considered upon their initial presentation. Their evaluation, treatment and testing was consistent with current guidelines for patients who present with complaints or symptoms that may be related to COVID- 19. Impression & Plan Right ureteral stone, Hyperglycemia due to diabetes mellitus, Fever Discharge Plan Visit Data *Final* Discharge Date/Time: 10/20/19 01:56 Chief Complaint: Illness Stated Complaint: abd pain/fever ED Provider: Manuel Tena Discharge Problem: Right ureteral stone, Hyperglycemia due to diabetes mellitus, Fever Patient Disposition: Admitted As Inpatient Discharge Instructions Interventions: ED Discharge Assessment Last Done: 10/20/19 01:56 Discharge Problem: Fever Qualifiers: Fever type: unspecified Qualified Code(s): R50.9 - Fever, unspecified
[2019-10-20] MEDS: LEVOFLOXACIN/D5W 750 MG/150 ML BAG IV STA ×2 (01:38→01:40)
--- NOTE | 2019-10-20 01:46 | Anesthesiology Consultation ---
Date of Service October 20, 2019 Assessment & Plan (1) Encounter for pre-operative examination: Chart Review Chart Review: Acceptable Risk for Surgery and Patient NOT seen in Pre Admission Testing Consults Requested none ASA [id number] Proposed Anesthesia Anesthesia Type: MAC Risk / Benefits Reviewed With: PT / POA / Parent / Guardian, Accepts Plan and Informed Consent Obtained History Surgery Operation Date: 10/20/19 02:00 Proposed Procedures p Cystoscopy(Right) - Ernie Johansen, DO Height/Weight Height: 5 ft 4 in Weight: 124.7 kg Allergies Allergy/AdvReac Type Severity Reaction Status Date / Time cephalexin Allergy Severe Anaphylaxis Verified 10/20/19 01:50 Cephalosporins Allergy Severe Anaphylaxis Verified 10/20/19 01:50 butorphanol Allergy Intermediate RAPID HEART Verified 10/20/19 01:50 Sulfa (Sulfonamide Allergy Intermediate Hives Verified 10/20/19 01:50 Antibiotics) Cipro AdvReac Mild nausea Verified 04/12/17 12:39 ciprofloxacin AdvReac Mild nausea Verified 10/20/19 01:50 Medications Home Medications Medication Instructions Recorded Confirmed Last Taken Biotene Moisturizing Mouth 1 spray MUCOUS MEMBRANE QID 11/02/18 01/11/19 01/10/19 Creon 1 cap PO AC 11/02/18 10/20/19 01/10/19 Novolin 70/30 U-100 Insulin 85 unit SUBCUT BID 11/02/18 10/20/19 01/10/19 Novolin R Regular U-100 Insuln 1 sliding scale dose SUBCUT QID 11/02/18 10/20/19 01/10/19 acetaminophen [Tylenol Arthritis 1,300 mg PO HS 11/02/18 10/20/19 01/10/19 Pain] albuterol sulfate 2.5 mg INHALATION Q4 PRN 11/02/18 10/20/19 Unknown albuterol sulfate [ProAir HFA] 2 puff INHALATION QID 11/02/18 10/20/19 Unknown amitriptyline 25 mg PO HS 11/02/18 10/20/19 01/10/19 ascorbic acid (vitamin C) 1 g PO QAM 11/02/18 01/11/19 01/10/19 aspirin [Aspirin Childrens] 162 mg PO HS 11/02/18 01/11/19 01/10/19 atorvastatin 40 mg PO HS 11/02/18 10/20/19 01/10/19 cyanocobalamin (vitamin B-12) 1,000 mcg PO QPM 11/02/18 10/20/19 01/10/19 erythromycin 1 applic OPHTHALMIC (EYE) QID 11/02/18 10/20/19 01/11/19 08:05 ferrous sulfate 325 mg PO 1200 11/02/18 10/20/19 01/10/19 fluticasone propionate [Flonase 2 spray INTRANASAL QAM 11/02/18 01/11/19 01/11/19 08:05 Allergy Relief] folic acid 1 mg PO QAM 11/02/18 01/11/19 01/10/19 gabapentin 400 mg PO TID 11/02/18 10/20/19 01/10/19 hydroxychloroquine [Plaquenil] 400 mg PO HS 11/02/18 10/20/19 01/10/19 latanoprost (PF) 1 drp OPHTHALMIC (EYE) HS 11/02/18 10/20/19 01/11/19 08:05 levothyroxine 125 mcg PO QAM 11/02/18 10/20/19 01/10/19 lorazepam 0.5 mg PO TID PRN 11/02/18 10/20/19 12/12/18 meclizine 25 mg PO TID PRN 11/02/18 01/11/19 01/04/19 methotrexate sodium 15 mg PO WK 11/02/18 10/20/19 01/09/19 multivitamin with iron 1 tab PO QDL 11/02/18 10/20/19 01/10/19 nitroglycerin 0.4 mg SUBLINGUAL UD PRN 11/02/18 10/20/19 Unknown omeprazole 20 mg PO QAM 11/02/18 10/20/19 01/10/19 potassium chloride 20 meq PO BID 11/02/18 10/20/19 01/10/19 prednisone 5 mg PO QAM 11/02/18 10/20/19 01/10/19 timolol 1 drp OPHTHALMIC (EYE) BID 11/02/18 10/20/19 01/11/19 08:05 torsemide 20 mg PO QAM 11/02/18 10/20/19 01/10/19 bacitracin-polymyxin B 3.5 g OPR QID 10/20/19 10/20/19 Unknown brimonidine 1 drp OPL BID 10/20/19 10/20/19 Unknown cyanocobalamin (vitamin B-12) 1,500 mcg PO DAILY 10/20/19 10/20/19 Unknown [Vitamin B-12] ergocalciferol (vitamin D2) 1,250 mcg PO WK 10/20/19 10/20/19 Unknown tizanidine 2 mg PO Q6 PRN 10/20/19 10/20/19 Unknown Active Medications Generic Name Dose Route Start Last Admin Trade Name Freq PRN Reason Stop Dose Admin Hydromorphone HCl 0.5 mg 10/19/19 21:50 10/20/19 01:54 Dilaudid IV 11/02/19 21:49 0.5 mg Q15M PRN Administration Pain Ioversol 94 ml 10/19/19 23:52 10/19/19 23:52 Optiray 320 100ml IV 10/23/19 23:51 94 ml ONCE PRN Administration Interaction Checking NPO Date Last Intake of Fluids: 10/20/19 Time Last Intake of Fluids: 00:15 Last Intake of Fluids Comment: Sips to take PO potassium in ED. 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, sx only History of colon polyps History of gastric ulcer History of sinus problem reason for nebulizer and inhalers prn Hyperlipidemia Hypothyroidism Liver [place] [facility] [place] Migraine Myocardial Infarction approx 10yrs ago was told "looked as though I had a heart attack at some point, but didnt know it" Nausea and vomiting after administration of anesthetic agent Pancreatitis per pt has had over 15 times Rheumatoid arthritis reason for steriod Sleep apnea CPAP Transient ischemic attack (TIA) x2 20+yrs ago--per MRIs had them--does not follow with neurologist, no deficits Exercise / Class Metabolic Activity IV < 2 Limit ADL/Bedbound Past Family History Family History Father Family history of reaction to anesthesia difficulty waking Family history of diabetes mellitus Mother Family history of diabetes mellitus Sister Family history of diabetes mellitus Brother Family history of diabetes mellitus Grandmother (Maternal) Family history of diabetes mellitus Grandmother (Paternal) Family history of diabetes mellitus Past Surgical History Surgical History History of appendectomy History of bilateral cataract extraction History of biopsy of bladder showed chronic cystitis History of carpal tunnel release of both wrists History of cholecystectomy History of colonoscopy History of detached retina repair x4 on right eye History of dilatation and curettage x3 History of esophagogastroduodenoscopy (EGD) History of liver biopsy BENIGN MASS History of lumbar discectomy History of partial thyroidectomy right side removed d/t papillary cancer History of tarsorrhaphy BILT--right eye closed shut, left eye partly closed History of tooth extraction all top teeth, most of bottom History of total hysterectomy with bilateral salpingo-oophorectomy (BSO) S/P foot surgery, left "stepped on a needle and had to have it removed" Past Anesthesia History No Hx of Anesthesia Complications History of PONV No Hx of PONV Social History Smoking Status: Never smoker Hx Alcohol Use: No Hx Substance Use: No substance use type: does not use Review of Systems Denies CP, SOB recently. Denies nausea or vomiting. Positive for severe abdominal pain. Physical Exam Vital Signs Last Vital Signs Temp 36.8 C 10/20/19 00:53 Pulse 75 10/20/19 01:56 Resp 18 10/20/19 01:56 BP 160/83 H 10/20/19 01:56 Pulse Ox 99 10/20/19 01:56 Constitutional + morbidly obese ENMT Mouth: + edentulous (Upper) and + small oral opening; no TMJ abnormality Thyromental Distance: < 3.5 Finger Breadths Mallampati Class: IV Neck normal visual inspection, + short neck and + thick neck; neck extension not limited Respiratory normal respiratory effort Auscultation: lungs clear to auscultation bilaterally Cardiovascular Rate/Rhythm: regular rate and regular rhythm Heart Sounds: + murmur Neurologic moves all extremities Psychiatric Orientation: alert and oriented x 3 Testing Laboratory Results 10/19/19 21:45 10/19/19 21:45 PT 10.9 Seconds (9.0-12.0) 10/19/19 21:45 INR 1.0 (0.9-1.1) 10/19/19 21:45 APTT 20.0 Seconds (21.0-31.0) L 10/19/19 21:45 Urine Color Yellow 10/19/19 21:52 Urine Appearance Cloudy (Clear) A 10/19/19 21:52 Urine pH 6.5 (4.5-7.5) 10/19/19 21:52 Ur Specific [place] 1.014 (1.000-1.030) 10/19/19 21:52 Urine Protein 2+ (Negative) H 10/19/19 21:52 Urine Glucose (UA) Negative (Negative) 10/19/19 21:52 Urine Ketones Negative (Negative) 10/19/19 21:52 Urine Nitrite Positive (Negative) A 10/19/19 21:52 Ur Leukocyte Esterase 3+ (Negative) H 10/19/19 21:52 Urine WBC (Auto) >30 /hpf (0-5) H 10/19/19 21:52 Urine RBC (Auto) 5-10 /hpf (0-4) H 10/19/19 21:52 U Hyaline Cast (Auto) 5-10 /lpf (0-5) H 10/19/19 21:52 U Epithel Cells (Auto) >30 /lpf (0-5) H 10/19/19 21:52 Urine Bacteria (Auto) 4+ (Negative) H 10/19/19 21:52 Other Testing Echocardiogram Date: 04/10/17 EF: 45-50 LV Function: Mild Global Hypokinesis of LV Other Findings: + diastolic dysfunction (Grade II) Mild Global Hypokinesis of LV EF- 45-50 RV systolic function mildly reduced Diastolic Dysfunction Grade II
[2019-10-20] MEDS ORDERED: PROPOFOL IV EMULSION 10 MG/ML 20 ML VIAL IV ONE (01:51)
--- NOTE | 2019-10-20 01:52 | Urology Consultation ---
Date of Consultation October 20, 2019 Assessment & Plan (1) Sepsis: Patient is being admitted for broad-spectrum antibiotics and supportive care for sepsis with a initial presenting fever per ER with significant ill feelings. Patient has considerable comorbidities with major medical issues inc luding respiratory, cardiac, and advanced age diabetic issues with end organ damage. Patient is blind. Is acutely ill from obstructing stone. Agree with plans for supportive care however due to acute illness and likely sepsis secondary to pyelonephritis due to obstructing stone patient is being prepared for emergent stent placement on the right. Risks and benefits discussed at length for procedure. These include bleeding, infection, injury to surrounding tissues or organs, and risks associated with anesthesia. Patient states understanding and agrees to proceed. Will sign consent and schedule. We will plan to proceed with urgent/emergent cystoscopy with right stent placement Patient will be monitored postoperatively with the medical team. Will likely need to await cultures and plan for at least 7 to 14 days of antibiotics to clear infection prior to considering stone treatment (2) Right ureteral stone: As above History of Present Illness History of Present Illness New consultation for patient with UTI/Pyelo, discomfort, and ill feelings. Patient presented with a temperature of 39 prior ER. Patient has been given broad-spectrum antibiotics and supportive care. Underwent imaging. Found to have an obstructing right-sided stone with a large degree of perinephric stranding and fluid. Patient has significant hydronephrosis. Stone appears to be in the region of the UPJ. Patient has recently been diagnosed with hepatocellular cancer. Patient developed sudden onset of pain into flank going down and radiating into groin and back in waves comes and goes. Can be severe at times. Discussed and reviewed patient's family history for any history of issues, infections, and disease. Also, discussed patient's medical/surgery history especially related to any history of urinary issues or stone disease. Patient was admitted and is undergoing observation with broad spectrum IV antibiotics. Patient is hypertensive with a elevated white count and multiple comorbidities including diabetes and end-stage organ disease with blindness. No major family history of malignancy. Allergies Allergy/AdvReac Type Severity Reaction Status Date / Time cephalexin Allergy Severe Anaphylaxis Verified 10/20/19 01:50 Cephalosporins Allergy Severe Anaphylaxis Verified 10/20/19 01:50 butorphanol Allergy Intermediate RAPID HEART Verified 10/20/19 01:50 Sulfa (Sulfonamide Allergy Intermediate Hives Verified 10/20/19 01:50 Antibiotics) Cipro AdvReac Mild nausea Verified 04/12/17 12:39 ciprofloxacin AdvReac Mild nausea Verified 10/20/19 01:50 Home Medications Home Medications Medication Instructions Recorded Confirmed Type Biotene Moisturizing Mouth 1 spray MUCOUS MEMBRANE QID 11/02/18 10/20/19 History Creon 1 cap PO AC 11/02/18 10/20/19 History Novolin 70/30 U-100 Insulin 85 unit SUBCUT BID 11/02/18 10/20/19 History Novolin R Regular U-100 Insuln 1 sliding scale dose SUBCUT QID 11/02/18 10/20/19 History acetaminophen [Tylenol Arthritis 1,300 mg PO HS 11/02/18 10/20/19 History Pain] albuterol sulfate 2.5 mg INHALATION Q4 PRN 11/02/18 10/20/19 History albuterol sulfate [ProAir HFA] 2 puff INHALATION QID 11/02/18 10/20/19 History amitriptyline 25 mg PO HS 11/02/18 10/20/19 History ascorbic acid (vitamin C) 1 g PO QAM 11/02/18 10/20/19 History aspirin [Aspirin Childrens] 162 mg PO HS 11/02/18 10/20/19 History atorvastatin 40 mg PO HS 11/02/18 10/20/19 History cyanocobalamin (vitamin B-12) 1,000 mcg PO QPM 11/02/18 10/20/19 History erythromycin 1 applic OPHTHALMIC (EYE) QID 11/02/18 10/20/19 History ferrous sulfate 325 mg PO 1200 11/02/18 10/20/19 History fluticasone propionate [Flonase 2 spray INTRANASAL QAM 11/02/18 10/20/19 History Allergy Relief] folic acid 1 mg PO QAM 11/02/18 10/20/19 History gabapentin 400 mg PO TID 11/02/18 10/20/19 History hydroxychloroquine [Plaquenil] 400 mg PO HS 11/02/18 10/20/19 History latanoprost (PF) 1 drp OPHTHALMIC (EYE) HS 11/02/18 10/20/19 History levothyroxine 125 mcg PO QAM 11/02/18 10/20/19 History lorazepam 0.5 mg PO TID PRN 11/02/18 10/20/19 History meclizine 25 mg PO TID PRN 11/02/18 10/20/19 History methotrexate sodium 15 mg PO WK 11/02/18 10/20/19 History multivitamin with iron 1 tab PO QDL 11/02/18 10/20/19 History nitroglycerin 0.4 mg SUBLINGUAL UD PRN 11/02/18 10/20/19 History omeprazole 20 mg PO QAM 11/02/18 10/20/19 History potassium chloride 20 meq PO BID 11/02/18 10/20/19 History prednisone 5 mg PO QAM 11/02/18 10/20/19 History timolol 1 drp OPL BID 11/02/18 10/20/19 History torsemide 20 mg PO QAM 11/02/18 10/20/19 History bacitracin-polymyxin B 3.5 g OPR QID 10/20/19 10/20/19 History brimonidine 1 drp OPL BID 10/20/19 10/20/19 History cyanocobalamin (vitamin B-12) 1,500 mcg PO DAILY 10/20/19 10/20/19 History [Vitamin B-12] ergocalciferol (vitamin D2) 1,250 mcg PO WK 10/20/19 10/20/19 History tizanidine 2 mg PO Q6 PRN 10/20/19 10/20/19 History Patient History Medical History Anemia Blindness of both eyes in left eye since Chronic back pain Chronic kidney disease, stage 3 Chronic steroid use Congestive heart failure hx of Diabetes mellitus, type 2 Diabetic neuropathy Glaucoma Hernia currently has 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, sx only History of colon polyps History of gastric ulcer History of sinus problem reason for nebulizer and inhalers prn Hyperlipidemia Hypothyroidism Liver mass scheduled for biopsy [place] [facility] [place] Migraine Myocardial Infarction approx 10yrs ago was told "looked as though I had a heart attack at some point, but didnt know it" Nausea and vomiting after administration of anesthetic agent Pancreatitis per pt has had over 15 times Rheumatoid arthritis reason for steriod Sleep apnea CPAP Transient ischemic attack (TIA) x2 20+yrs ago--per MRIs had them--does not follow with neurologist, no deficits Surgical History History of appendectomy History of bilateral cataract extraction History of biopsy of bladder showed chronic cystitis History of carpal tunnel release of both wrists History of cholecystectomy History of colonoscopy History of detached retina repair x4 on right eye History of dilatation and curettage x3 History of esophagogastroduodenoscopy (EGD) History of liver biopsy BENIGN MASS History of lumbar discectomy History of partial thyroidectomy right side removed d/t papillary cancer History of tarsorrhaphy BILT--right eye closed shut, left eye partly closed History of tooth extraction all top teeth, most of bottom History of total hysterectomy with bilateral salpingo-oophorectomy (BSO) S/P foot surgery, left "stepped on a needle and had to have it removed" Family History Father Family history of reaction to anesthesia difficulty waking Family history of diabetes mellitus Mother Family history of diabetes mellitus Sister Family history of diabetes mellitus Brother Family history of diabetes mellitus Grandmother (Maternal) Family history of diabetes mellitus Grandmother (Paternal) Family history of diabetes mellitus Social History Preferred Language: Estonian Communication Ability: Unable Physiological Chemist Required: No Beliefs That Will Affect Care: None Current Living Situation: Spouse Feels Safe at Home: Yes Smoking Status: Never smoker Second Hand Exposure: Yes (parents smoked/ smoked) ; Hx Alcohol Use: No Hx Substance Use: No Review of Systems Review of Systems: All systems reviewed & are unremarkable except as noted in HPI & below Physical Exam Physical Exam: General: Alert and acutely ill. Advanced age. Significant chronic Medical issues. HEENT: Normocephalic. Inspection normal. Patient is blind. Cranial Nerves 2- 12 Grossly intact with some hearing issues. Normal inspection of face. Normal inspection of neck. Psychologic: Normal affect. Baseline issues with memory. Patient helped. Respiratory: Baseline lung/respiratory issues with mild increase in effort. No use of accessory muscles. No tachypnea or dyspnea. Cardiovascular: Mild tachycardia Skin: Alpine and Dry. No rashes or visible lesions. Extremities/Lymphatics: Minor Mobility issues. Slow Gait. Abdomen: Obese and distended. Tender on right. No rebound or guarding. Results & Data Vital Signs (Past 12 Hours) Vital Signs Temp Pulse Pulse Pulse Resp BP BP 10/20/19 00:53 36.8 C 77 18 153/87 H 10/19/19 22:52 89 18 142/69 H 10/19/19 21:58 10/19/19 21:22 37.7 C H 89 20 149/83 H Pulse Ox 10/20/19 00:53 98 10/19/19 22:52 95 10/19/19 21:58 93 10/19/19 21:22 99 PG Care Time/CCT Total # of Minutes Spent Total Time Spent with Patient: Total time spent is greater than 50% in coordination of care (as documented) at patient's floor/unit and/or counseling patient: Coding Level of Care Code 78456 Inpt Consult Level 5 Diagnoses Sepsis A41.9 Right ureteral stone N20.1
[2019-10-20] MEDS ORDERED: MIDAZOLAM HCL 1 MG/ML 2ML VIAL ONE (01:58)
[2019-10-20] MEDS ORDERED: fentaNYL citrate 100 MCG/2 ML VIAL ONE (01:58)
[2019-10-20] MEDS ORDERED: ONDANSETRON INJ 2 MG/ML 2 ML VIAL ONE (01:59)
--- NOTE | 2019-10-20 03:26 | Operative Report ---
PG Post Operative Report Pre & Post Diagnosis Operation Date: 10/20/19 02:00 Pre-Op Diagnosis: sepsis, right ureteral stone Post-Op Diagnosis: sepsis, right ureteral stone I identified the patient and participated in the time-out.: Yes Procedure Operation Date: 10/20/19 02:00 Actual Procedures p Cystoscopy with urethral dilation and right aspiration, retrograde pyelogram, and stent insertion(Right) - Ernie Johansen DO Surgeon Ernie Johansen, II, DO Dispatcher Chief Oil None Estimated Blood Loss 1 Findings Consistent with Post-Op Diagnosis Severe urethral stricture at bladder neck with severely impacted stone and hydronephrosis with Stent placed in good position. Specimens None Drains 6 Fr Multilength Anesthesia Type MAC Complications none Disposition Disposition: Recovery Room Indications Patient with obstruction and sepsis for emergent stent placement. Patient is blind and consent was explained to her and was agreeable to sign consent after discussing all concerns and issues. Risks and benefits discussed at length. Description of Procedure Patient was consented for emergent procedure for sepsis with obstructing stone and brought back to the operating room. Patient was placed under anesthesia in the supine position and moved to the dorsal lithotomy position. Patient was prepped and draped in the regular sterile fashion. A time out was completed. A 30degree Cystoscope was placed into the bladder and the entire bladder was examined. The urethra had a severe stricture that was dilated to allow scope placement. A severe amount of debris was within the bladder and was evacuated. The UO's were identified. The UO on the right was cannulized with a catheter and a retrograde pyelogram was completed. A wire was then placed. With the wire in place, a 6 Fr Double J stent was placed. This required significant manipulation in order to pass the stent. The wire had to be moved and replaced in order to allow placement into the renal pelvis. It was confirmed with fluoroscopy. With the stent in place, the bladder was emptied. The scope was removed. The patient was cleaned, a roused from anesthesia, and transferred to the pacu in stable condition having tolerated the procedure well with no complications. I was present and participated in all aspects of the procedure. The patient will be monitored in the PACU until transferred. I attest to the content of the Intraoperative Record and any orders documented therein. Any exceptions are noted below.
[2019-10-20] MEDS ORDERED: ONDANSETRON INJ 2 MG/ML 2 ML VIAL IV PRN (03:43)
[2019-10-20] MEDS ORDERED: ePHEDrine sulfate 50 MG/ML AMP IV PRN (03:43)
[2019-10-20] MEDS ORDERED: fentaNYL citrate 100 MCG/2 ML VIAL IV PRN (03:43)
[2019-10-20] MEDS ORDERED: ATROPINE SULFATE 0.1 MG/ML 10ML SYR IV PRN (03:43)
[2019-10-20] MEDS ORDERED: INSULIN ASPART PER UNIT SC STA (03:44)
[2019-10-20] MEDS ORDERED: INSULIN HUMAN REGULAR PER UNIT 4 UNITS in SYRINGE 0 ML IV STA (03:50)
--- NOTE | 2019-10-20 04:29 | Anesthesiology Progress Note ---
Date of Service October 20, 2019 Anesthesia Post Procedure Vital Signs Vital Signs: Temp Pulse Pulse Pulse Resp BP BP 10/20/19 04:05 37.5 C 86 25 H 146/70 H 10/20/19 03:55 85 25 H 164/68 H 10/20/19 03:45 83 25 H 158/69 H 10/20/19 03:37 37.3 C 85 17 141/65 H 10/20/19 01:56 75 18 160/83 H 10/20/19 00:53 36.8 C 77 18 153/87 H 10/19/19 22:52 89 18 142/69 H 10/19/19 21:58 10/19/19 21:22 37.7 C H 89 20 149/83 H Pulse Ox 10/20/19 04:05 98 10/20/19 03:55 100 10/20/19 03:45 97 10/20/19 03:37 96 10/20/19 01:56 99 10/20/19 00:53 98 10/19/19 22:52 95 10/19/19 21:58 93 10/19/19 21:22 99 Pain Intensity Buttock: Pain Intensity: 6 Transfer of Care Handoff Completed per policy Notes Mental Status: alert / awake / arousable and participated in evaluation Nausea / Vomiting: adequately controlled Pain: adequately controlled Airway Patency, RR, SpO2: stable & adequate BP & HR: stable & adequate Hydration State: stable & adequate Anesthetic Complications: no major complications apparent and Pt Satisfied with anesthetic care
[2019-10-20] MEDS ORDERED: INSULIN ASPART PER UNIT SC ONE (04:45)
--- NOTE | 2019-10-20 04:48 | History and Physical Report ---
DATE OF ADMISSION: 10/20/2019 CHIEF COMPLAINT: Right flank pain. HISTORY OF PRESENT ILLNESS: This is a 69-year-old female with past medical history significant for type 2 diabetes, high triglycerides, postsurgical hypothyroidism, hyperlipidemia, obstructive sleep apnea, chronic kidney disease stage III, hypertension, paroxysmal atrial fibrillation, morbid obesity, generalized osteoarthritis, diabetic polyneuropathy, rheumatoid arthritis on multiple sites, amblyopia, legally blind, history of malignant neoplasm of thyroid, history of corneal ulcer, recent diagnosis of possible hepatic malignancy with a 4.3 cm right hepatic lobe on the recent MRI done in August 2019. She went to [facility] yesterday, saw interventional radiology. There is a plan for IR-guided Y-90 ablation in 4-6 weeks. The patient presents with right flank and back pain. The patient states this pain is going on for few weeks now, but it got worse last night, and also having some low-grade fever; in the ambulance temperature 102 degrees. Here hemodynamically stable, but her white count was 13.5. UA was positive and CAT scan is showing right UPJ junction obstructing stone about 0.9 cm. The patient is currently going to the OR. The patient received IV antibiotics in the ER and pain medications. Currently resting comfortably. Denies any headache. No runny nose, no sore throat, no cough, no shortness of breath, no chest pain, no nausea. Normal bowel and bladder movements. Ambulates at home with help of blind stick. Lives with her . ALLERGIES: CEPHALOSPORINS, BUTORPHANOL, SULFA ANTIBIOTICS, CIPRO. PAST MEDICAL HISTORY: As mentioned above. PAST SURGICAL HISTORY: Appendectomy, carpal tunnel surgery, cataract surgery, closed eyelids by suture, colonoscopy, cystoscopy, IR biopsy, bilateral notz tarsorrhaphy of eyelid, removal of thyroid lobe, appendectomy, cholecystectomy, total hysterectomy for endometriosis. MEDICATIONS: The patient is on omeprazole 20 mg p.o. daily, hydrocodone/acetaminophen, Zanaflex 2 mg p.o. q. 6 hours p.r.n., Novolin 70/30 85 units b.i.d., Demadex 20 mg p.o. daily, atorvastatin 40 mg p.o. daily, gabapentin 400 mg p.o. t.i.d., Creon 1 capsule p.o. with each meal and snack, erythromycin ophthalmic ointment to left eye 4 times a day, Plaquenil 400 mg p.o. at bedtime, prednisone 5 mg p.o. daily, methotrexate 2.5 mg 6 tablets once a week, latanoprost 0.05% instill 1 drop into left eye at bedtime, levothyroxine 125 mcg p.o. daily, Alphagan 0.2% ophthalmic solution 1 drop into left eye b.i.d., timolol 0.5% one drop into left eye 2 times a day, potassium chloride 20 mEq p.o. b.i.d., Elavil 25 mg p.o. at bedtime, insulin sliding scale, ferrous sulfate 325 mg p.o. daily, ascorbic acid 1000 mg p.o. daily, vitamin D 50,000 units once a week, folic acid 1 mg p.o. daily, aspirin 162 mg p.o. daily, Ativan 0.5 mg p.o. t.i.d. p.r.n., meclizine 25 mg p.o. t.i.d. p.r.n. Nitrostat 0.4 mg sublingual p.r.n., Flonase 2 sprays into each nostril daily, albuterol nebulization every 4 hours p.r.n., vitamin B12 1500 mcg p.o. daily, Tylenol Arthritis as needed. FAMILY HISTORY: Significant for brother has diabetes; father has heart disorder, peripheral vascular disease, elevated lipids, diabetes; mother has diabetes; son has arthritis; brother has diabetes. SOCIAL HISTORY: . No smoking. Currently no alcohol use. No drug use. REVIEW OF SYSTEMS: As per HPI. Rest of the review of systems negative. PHYSICAL EXAMINATION: GENERAL: The patient is morbidly obese, legally blind, not in acute distress. VITAL SIGNS: Temperature T-max 37.7, pulse 75, respiratory rate 18, blood pressure 160/83, oxygen 99% on 2 liters. HEENT: Legally blind. No pallor, no icterus. NECK: No JVD, no neck masses. CARDIOVASCULAR: S1, S2 heard. Regular rate and rhythm, no murmur, no gallop. RESPIRATORY SYSTEM: Normal AP diameter. No accessory muscle use. No wheezing, no crackles. ABDOMEN: Soft, bowel sounds present. Right CVA tenderness present. No guarding, no rigidity. CENTRAL NERVOUS SYSTEM: Cranial nerves II-XII grossly intact, nonfocal. EXTREMITIES: Mild pedal edema, no erythema seen. LABORATORY DATA: WBC 13.5, hemoglobin 13.9, hematocrit 43.4, platelets 150. PT 10.9, INR 1, APTT 20. Sodium 142, potassium 3.3, chloride 107, bicarbonate 27, BUN 13, creatinine 0.89, serum glucose 105, lactate 1.7, calcium 9.6, magnesium 1.2, total bilirubin 0.8, AST 16, ALT 18, alkaline phosphatase 109. Troponin I less than 0.015. Procalcitonin 1.4. Urinalysis positive for nitrite and leukocyte esterase and bacteria +4. IMAGING DATA: Chest x-ray, no acute findings seen. CT of abdomen and pelvis, 9 x 8 mm obstructing stone in the right UPJ junction, [id number] hydronephrosis. Additional nonobstructing stones in the right kidney measuring up to 6 mm. EKG: Normal sinus rhythm with rate of 91, poor quality data. ASSESSMENT AND PLAN: This is a 69-year-old female who presents with right flank pain and found to have obstructing right kidney stone. 1. Obstructing right kidney stone, 9 mm right ureteropelvic junction stone with complicated urinary tract infection. Allergic to multiple allergies. Received Levaquin will continue with Azactam. Will follow the cultures. Urology consulted by ER. The patient is going to OR. We will follow the culture and follow in the medical floor, gentle fluids. 2. Obstructive sleep apnea, on CPAP. 3. Diabetes. Continue home NovoLog 70/30. Continue insulin sliding scale. Follow hemoglobin A1c levels. Follow the blood sugars.Pharmacy consult. 4. History of high triglycerides, on Lipitor. 5. Hypothyroidism, on Synthroid. 6. Rheumatoid arthritis, on Plaquenil. Hold the methotrexate for now. 7. Chronic kidney disease stage III, creatinine 0.8. We will follow the labs. 8. Hypomagnesemia and hypokalemia, will replace. Follow the repeat labs. 9. Gastroesophageal reflux disease, on omeprazole. 10. Legally blind. 11. Morbid obesity, needs counseling. 12. Liver mass. She is supposed to get ablation done by IR in 4-6 weeks. Needs followup. 13. Deep venous thrombosis prophylaxis, sequential compression devices for now. 14. Disposition: Closely monitor in the medical floor. Level 1 full code. Expect to discharge home and follow with her family doctor. PT and OT prior to discharge. Social service to help with discharge planning. [place]
[2019-10-20] MEDS ORDERED: NITROGLYCERIN SL 0.4 MG/TAB TAB SL PRN (05:13)
[2019-10-20] MEDS ORDERED: TIZANIDINE HCL 4 MG TABLET PO PRN (05:13)
[2019-10-20] MEDS ORDERED: SODIUM CHLORIDE 0.9% 1000ML 1,000 ML IV SCH (05:13)
[2019-10-20] MEDS ORDERED: ACETAMINOPHEN 325 MG TAB PO PRN (05:13)
[2019-10-20] MEDS ORDERED: ALBUTEROL 0.083% NEBU SOLN 3 ML VIAL INH PRN (05:13)
[2019-10-20] MEDS ORDERED: HYDROmorphone INJ 0.5 MG/0.5 ML SYR ONE (05:35)
[2019-10-20] MEDS ORDERED: MECLIZINE HCL 25 MG TAB PO PRN (05:51)
[2019-10-20] MEDS ORDERED: AZTREONAM CONSULT ACTIVE PRN (05:55)
[2019-10-20] MEDS ORDERED: PHARMACY GLYCEMIC MGMT CONSULT PRN (06:05)
[2019-10-20] MEDS ORDERED: POTASSIUM CHLORIDE 20 MEQ/15 ML UDC PO STA (06:22)
[2019-10-20] MEDS: AZTREONAM 2,000 MG in DEXTROSE 5% 100 ML IV SCH ×2 (06:25→14:53)
[2019-10-20] MEDS: LEVOTHYROXINE SODIUM 125 MCG TABLET PO SCH (06:34)
[2019-10-20] MEDS ORDERED: POTASSIUM CHLORIDE 20 MEQ/15 ML UDC PO ONE (07:00)
[2019-10-20] MEDS ORDERED: ALBUTEROL HFA 8 GM INHALER INH SCH (07:00)
--- NOTE | 2019-10-20 07:38 | Electrocardiogram Report ---
Test Reason : Blood Pressure : / mmHG Vent. Rate : 091 BPM Atrial Rate : 091 BPM P-R Int : 154 ms QRS Dur : 108 ms QT Int : 412 ms P-R-T Axes : 033 -29 096 degrees QTc Int : 506 ms Poor data quality, interpretation may be adversely affected Normal sinus rhythm Possible Anterior infarct , age undetermined Prolonged QT Abnormal ECG When compared with ECG of 12-APR-2017 06:48, QRS axis Shifted left Confirmed by Juaquin Ascencio ([id number]) on 10/20/2019 7:38:31 AM Referred By: REFERRED SELF Confirmed By:Juaquin Ascencio
[2019-10-20] MEDS: PANCREAZE (LIPASE 10,500U) CAP PO SCH ×3 (07:57→16:23)
[2019-10-20] MEDS: ASCORBIC ACID 500 MG TAB PO SCH ×2 (07:57→21:10)
[2019-10-20] MEDS: FOLIC ACID 1 MG TAB PO SCH (07:58)
[2019-10-20] MEDS: PANTOprazole 40 MG TAB PO SCH (07:58)
[2019-10-20] MEDS: BRIMONIDINE TARTRATE 0.2% 5ML OPL SCH ×2 (07:59→21:05)
[2019-10-20] MEDS: TIMOLOL MALEATE 0.5% OP SOLN 5 ML BTL OP SCH ×2 (08:00→21:09)
[2019-10-20] MEDS: BACITRACIN/POLYMYX B OPH OINT 3.5 GM TUBE OPR SCH ×4 (08:00→21:08)
[2019-10-20] MEDS: ERYTHROMYCIN OP OINT 5 MG/GM 3.5 GM TUBE OP SCH ×4 (08:00→21:06)
[2019-10-20] MEDS ORDERED: INSULIN HUMAN NPH SC SCH (08:00)
[2019-10-20] MEDS: INSULIN ASPART 100 UNITS/ML 3 ML PEN SC SCH ×4 (08:18→21:07)
--- NOTE | 2019-10-20 08:20 | CT Scan Report ---
CT SCAN OF THE ABDOMEN AND PELVIS WITH IV CONTRAST CLINICAL HISTORY: Generalized abdominal pain. COMPARISON STUDY: Abdominal CT dated 11/13/2011. TECHNIQUE: Following the IV administration of 94 cc of Optiray 320, CT scan of the abdomen and pelvi s is performed from the lung bases to the proximal femora. Images are reviewed in the axial, sagittal , and coronal planes. IV contrast was administered without complication. A dose lowering technique wa s utilized adhering to the principles of ALARA. The examination is degraded by large body habitus, an d by streak artifact from the body wall abutting the CT gantry. CT DOSE: 1230.77 mGycm FINDINGS: Lung bases: The heart is normal in size and without pericardial effusion. The lung bases are clear no ting dependent atelectasis. Liver: The contrast-enhanced liver is enlarged, measuring 20.4 cm in length. The liver demonstrates d iffusely diminished attenuation consistent with hepatic steatosis. There is [id number] central intrahepatic biliary ductal dilatation. The hepatic veins and portal veins are patent. There is a 4.5 x 3.4 cm indeterminant heterogeneous low-attenuation lesion in the right lobe seen on image #77. Thi s is new from 11/13/2011. Gallbladder: Surgically absent noting clips in the gallbladder fossa. Spleen: Normal in size and attenuation. Pancreas: Moderately atrophic and grossly unremarkable. Adrenal glands: Unremarkable. Kidneys: The contrast enhanced kidneys demonstrate cortical atrophy. There are 8 mm and 9 mm obstruct ing calculi in the proximal right ureter at the level of L3-L4. These are seen on images #242 and #24 9. These cause moderate right-sided hydronephrosis. There is associated right-sided urothelial thicke john and perinephric stranding. There are least 5 additional nonobstructing right renal calculi measu ring up to 9 mm. No left renal calculi are clearly seen on this contrast-enhanced examination and the re is no left-sided hydronephrosis. There is heterogeneous enhancement of the right kidney. A 4.1 cm cyst is noted on the right. Abdominal vasculature: The abdominal aorta is normal in course and caliber noting moderate atheroscle rotic calcification. Bowel: There is no bowel obstruction. A duodenal diverticulum is noted. The appendix is not identifi ed and reported surgically absent. Peritoneum: There is no intraperitoneal free air or abdominal ascites. There is diastases of the rect us musculature, with a large complex fat-containing umbilical/periumbilical hernia. Lymphadenopathy: None. Pelvic viscera: Question a 2 cm focus of asymmetric bladder wall thickening posteriorly on the right. This is best seen on axial image #388. The uterus is surgically absent. No adnexal lesion is seen. Skeletal structures: The skeletal structures are osteopenic. Lumbosacral spondylosis is observed. Pos tlaminectomy change seen in the lower lumbar spine. No lytic or blastic lesions are seen. Soft tissues: Foci of induration within the ventral abdominal pannus may be related to subcutaneous i njections. IMPRESSION: 1. There are 2 obstructing calculi in the proximal right ureter measuring up to 9 mm. This causes mod erate right hydroureteronephrosis. 2. There is urothelial thickening within the right proximal ureter and renal pelvis as well as perine phric stranding and heterogeneous perfusion of the right kidney. This is likely related to obstructio n/hydronephrosis. Correlate clinically and urinalysis for evidence of superimposed urinary tract infe ction. 3. Numerous additional nonobstructing right renal calculi are observed. 4. Question a 2 cm focus of asymmetric bladder wall thickening as above. This is pathologically indet erminant. Follow-up with urology and cystoscopy is recommended for further assessment. 5. There is a 4.5 x 3.4 cm complex/heterogeneous lesion in the right lobe of the liver. This is patho logically indeterminant but new from 11/13/2011. This could represent a complex cyst or fluid collectio n such as abscess, or possibly a neoplastic process. Ultrasound of the liver is recommended for initi al follow-up assessment. 6. Hepatomegaly and hepatic steatosis. 7. Additional findings as above. ACT 112: Negative or not required by law. Electronically signed by: Familia Morales M.D. 10/20/2019 8:19 AM
--- NOTE | 2019-10-20 08:38 | XRay Report ---
XR chest 1V portable CLINICAL HISTORY: SEPSIS COMPARISON STUDY: 04/10/2017 FINDINGS: The heart is borderline enlarged. There is generalized interstitial prominence, likely seco ndary to patient's body habitus. There are equivocal left basilar airspace opacities. If symptoms per sist, a follow-up PA and lateral study would be recommended. There are no significant pleural effusio ns. IMPRESSION: 1. Technically difficult study to interpret due to the patient's large body habitus 2. Left basilar opacities, possibly related to technical factors. If the patient's symptoms persist, a follow-up PA and lateral chest x-ray could be obtained. ACT 112: Negative or not required by law. Electronically signed by: Jad Yu M.D. 10/20/2019 8:36 AM
[2019-10-20] MEDS ORDERED: GABAPENTIN 400 MG CAP PO SCH (09:00)
[2019-10-20] MEDS ORDERED: TORSEMIDE 10 MG TAB PO SCH (09:00)
[2019-10-20] MEDS ORDERED: POTASSIUM CHLORIDE 20 MEQ TABCR PO SCH (09:00)
[2019-10-20] MEDS ORDERED: predniSONE 5 MG TAB PO SCH (09:00)
[2019-10-20] MEDS ORDERED: INSULIN HUMAN 70% NPH/30% REGULAR SQ SCH (09:00)
[2019-10-20] MEDS ORDERED: [UNRECOGNIZED DRUG - REMARK] MUCOUS MEMBRANE SCH (09:00)
--- NOTE | 2019-10-20 09:03 | Fluoroscopy Report ---
INTRAOPERATIVE RADIOGRAPHS CLINICAL HISTORY: Right-sided ureteral stent placement. Fluoroscopy time: 166 seconds. FINDINGS: 4 spot fluoroscopic views of the right abdomen are correlated with abdominal CT performed . A catheter is placed into the right ureter. Hydronephrosis is shown following contrast demo nstration. The final image shows the distal end of a right ureteral stent in place. Cholecystectomy c lips are noted in the right upper quadrant. IMPRESSION: Intraoperative images from a right-sided ureteral stent placement procedure as above. Electronically signed by: Familia Morales M.D. 10/20/2019 9:02 AM
[2019-10-20 09:55] LABS: Hematocrit (blood only) 37.6 % (37-47); Hemoglobin 11.8 g/dL (12.0-16.0); Mean Corpuscular Hemoglobin 30.4 pg (25-34); Mean Corpuscular Hgb Conc 31.4 g/dL (32-36); Mean Corpuscular Volume 96.9 fL (80-100); Mean Platelet Volume 10.7 fL (7.4-10.4); Platelet Count 144 K/uL (130-400); RDW Coefficient of Variation 14.3 % (11.5-14.5); Red Blood Count 3.88 M/uL (4.2-5.4); White Blood Count 41.76 K/uL (4.8-10.8)
[2019-10-20 10:12] LABS: Basophils # (auto) 0.04 K/uL (0-0.2); Basophils % (auto) 0.1 %; Eosinophils # (auto) 0.01 K/uL (0-0.5); Immature Granulocytes # (auto) 0.64 K/uL (0.00-0.02); Immature Granulocytes % (auto) 1.5 %; Lymphocytes # (auto) 0.42 K/uL (1.2-3.4); Monocytes # (auto) 2.06 K/uL (0.11-0.59); Monocytes % (auto) 4.9 %; Neutrophils # (auto) 38.59 K/uL (1.4-6.5); Neutrophils % (auto) 92.5 %; Toxic Vacuolation 1+
[2019-10-20 10:33] LABS: BUN Creatinine Ratio 10.7 (10-20); Calcium 8.7 mg/dl (8.5-10.1); Creatinine Clr Calc Pharmacy 52.5 ml/min; Est GFR (African American) 47.6; Est GFR (Non-African American) 41.1; Magnesium 1.1 mg/dl (1.8-2.4); Potassium 4.3 mmol/L (3.5-5.1)
[2019-10-20] MEDS: PHENAZOPYRIDINE HCL 100 MG TAB PO SCH ×3 (10:42→21:08)
[2019-10-20] MEDS: FLUTICASONE PROPIONATE NA SPR 16 GM BTL SCH (10:42)
[2019-10-20 11:08] LABS: Estimated Average Glucose 183 mg/dl
[2019-10-20] MEDS ORDERED: SODIUM CHLORIDE 0.9% 1000ML 250 ML IV ONE (11:29)
[2019-10-20] MEDS: FERROUS SULFATE 325 MG TAB PO SCH (11:38)
[2019-10-20] MEDS: MULTIVITAMIN TAB PO SCH (11:38)
[2019-10-20] MEDS: HYDROCORTISONE SOD 100 MG in SYRINGE 0 ML IV SCH ×2 (11:42→21:04)
--- NOTE | 2019-10-20 11:51 | Hospitalist Progress Note ---
Date of Service October 20, 2019 Assessment & Plan (1) Severe sepsis: Patient meets criteria for severe sepsis: Leukocytosis white count 41,000, with left shift, elevated lactic acid more than 4, hypotension BP 90/53 Source of infection: Obstructed right-sided ureteric stone, complicated sepsis, gram-negative bacteremia Patient been on IV Azactam(multiple antibiotic allergy: Including Keflex, cephalosporin(anaphylactic reaction), Cipro) [facility] ID consult requested Complicated UTI with right-sided obstructed kidney stone: Appreciate input from urology, status post right ureteric stent placed yesterday Gram-negative bacteremia: Due to above-on Azactam Repeat blood cultures ordered Lactic acidosis: Due to severe sepsis, gram-negative bacteremia, complicated UTI with obstructed ureteric stone Patient given IV fluid bolus, continue NSS at 125 mL/h, repeat lactic acid in 4 hours Hypotension: Due to severe sepsis, Given IV fluid resuscitation Patient was on chronic p.o. prednisone for rheumatoid arthritis, discontinued Stress dose IV hydrocortisone in the setting of severe sepsis Acute renal failure on CKD stage III: Due to hypotension, severe sepsis Continue IV fluids Hold torsemide Follow BMP closely, May need nephrology consult if renal function does not improve after correction of hypotension/volume depletion Recently diagnosed hepatocellular carcinoma: Biopsy-proven hepatocellular carcinoma in [facility] Scheduled for outpatient IR guided radiotherapy CODE STATUS: Full code DVT prophylaxis: SCD and teds, avoid anticoagulation as patient continued to have hematuria Disposition: Critically ill, patient is being transferred to intensive care unit for further care Admission and Anticipated Discharge Date Admission Date: October 20, 2019 Subjective Patient seen at bedside, legally blind, Had severe bladder spasm earlier this morning, catheter irrigation revealed large amount of clot and residual urine, Red draining pemberton colored urine, Patient reports her bladder spasm has improved, still has right-sided flank pains, bilateral hip arthritis which is chronic Patient is very tearful, stating that last she got diagnosed with hepatocellular carcinoma, scheduled for radiation ablation treatment in [place], Does not have any fever or chills, noted to be hypotensive, Patient is updated that she has developed severe sepsis secondary to urine tract infection with obstructed kidney stone Patient is critically ill Being transferred to ICU for higher level of care Review of Systems Review of Systems: All systems reviewed & are unremarkable except as noted in HPI & below Genitourinary: + hematuria Physical Exam Constitutional: WD/WN, vitals as above + morbidly obese; no acute distress Morbidly obese Eyes: no scleral abnormality ENMT: external ear and nose normal, oropharynx normal Neck: normal visual inspection Respiratory: normal respiratory effort, lungs clear to auscultation Cardiovascular: RRR, no murmur, no edema Gastrointestinal (Abdomen): Percussion/Palpation: + abdomen tender (Right flank pain,) and abdomen soft Musculoskeletal: Generalized weakness Neurologic: no focal motor deficits Speech / Cognition: normal speech Motor/Sensory: no tremor Legally blind on bilateral eyes, Psychiatric: Orientation: alert and oriented x 3 Affect: + anxious affect (Very labile mood, tearful while stating her recent dx with HCC, ) Results & Data Results & Data ([facility]) Vital Signs (Past 12 Hours) Vital Signs Temp Pulse Pulse Pulse Resp BP BP 10/20/19 09:11 37.1 C 78 20 90/53 L 10/20/19 08:00 36.7 C 99 H 18 140/72 10/20/19 07:00 36.8 C 90 22 130/74 10/20/19 06:00 36.9 C 91 H 20 10/20/19 05:45 37 C 89 18 122/72 10/20/19 05:30 36.8 C 90 20 122/72 10/20/19 05:15 37.2 C 94 H 20 156/83 H 10/20/19 04:45 37.5 C 89 25 H 150/69 H 10/20/19 04:35 37.5 C 89 25 H 152/85 H 10/20/19 04:25 37.5 C 87 24 152/68 H 10/20/19 04:15 37.5 C 87 25 H 158/67 H 10/20/19 04:05 37.5 C 86 25 H 146/70 H 10/20/19 03:55 85 25 H 164/68 H 10/20/19 03:45 83 25 H 158/69 H 10/20/19 03:37 37.3 C 85 17 141/65 H 10/20/19 01:56 75 18 160/83 H 10/20/19 00:53 36.8 C 77 18 153/87 H Pulse Ox 10/20/19 09:11 97 10/20/19 08:00 97 10/20/19 07:00 97 10/20/19 06:00 94 07/11/20 05:45 94 10/20/19 05:30 94 10/20/19 05:15 94 10/20/19 04:45 99 10/20/19 04:35 99 10/20/19 04:25 100 10/20/19 04:15 98 10/20/19 04:05 98 10/20/19 03:55 100 10/20/19 03:45 97 10/20/19 03:37 96 10/20/19 01:56 99 10/20/19 00:53 98
[2019-10-20] MEDS ORDERED: INSULIN HUMAN NPH SC ONE (13:00)
[2019-10-20] MEDS: MAGNESIUM SULFATE / D5W 1 GM/100 ML BAG IV SCH ×3 (13:46→17:54)
[2019-10-20] MEDS ORDERED: NORMOSOL-R 1,000 ML IV ONE (13:50)
--- NOTE | 2019-10-20 14:06 | Critical Care Consultation ---
Date of Consultation October 20, 2019 Assessment & Plan (1) Severe sepsis: Reason Critically Ill: 69-year-old female with gram-negative bacteremia secondary to pyelonephritis secondary to obstructed right ureteral stone. PLAN: Neuro: Acute encephalopathy -Metabolic in origin should improve with resolution of bacteremia Amitriptyline nightly -Holding Zanaflex for muscle spasm -Holding for altered mental status Meclizine -Holding for altered mental status Ativan 3 times daily as needed -Holding for altered mental status Resp: Supplemental oxygen, goal saturation greater than 94% CV: Hypotension -Likely secondary to sepsis -Consider echocardiogram Prolonged QTC -Unclear etiology Fluids/Renal: Hypomagnesemia -3 g IV ordered Acute kidney injury on chronic renal insufficiency chronic kidney disease stage III -Generous volume resuscitation ID: Gram-negative bacteremia -Aztreonam GI/Nutrition: Statin therapy -Indication by possible cardiac disease and well as known diabetes Morbid obesity -BMI 47 Heme: Anemia -Currently receiving iron supplementation as an outpatient DVT prophylaxis: Heparin 7500 units 3 times daily Endocrine: ICU hyperglycemia protocol Poorly controlled type 2 diabetes -Pharmacy consult Hypothyroidism -125 mcg p.o. daily Rheumatoid arthritis -Chronic steroid therapy: Prednisone 5 mg daily -100 mg hydrocortisone 3 times daily as ordered by primary team for possible adrenal insufficiency -On hydroxychloroquine: Holding with prolonged QTC and hypomagnesemia Vascular access: Peripheral IVs Code Status: Full code Disposition: ICU Present on Admission?: Yes (2) Right ureteral stone: Present on Admission?: Yes (3) ALONA (acute kidney injury): (4) Leukemoid reaction: (5) Lactic acidosis: (6) Hyperglycemia due to diabetes mellitus: (7) Hypomagnesemia: (8) Elevated hemoglobin A1c measurement: (9) Bacteremia due to Gram-negative bacteria: History of Present Illness Reason for Consultation: Severe sepsis Requesting Physician: Janell Jimenez MD Attending Physician: Janell Jimenez MD History of Present Illness Patient is a 69-year-old female who was seen in the emergency department for flank pain and was found to have a 9 x 8 mm obstructing stone at the right UPJ causing hydronephrosis and likely pyelonephritis. It was reported to me that the patient was recently diagnosed with hepatocellular carcinoma. At the time of transfer for continued hypotension the patient was referred ported to be full code. Allergies Allergy/AdvReac Type Severity Reaction Status Date / Time cephalexin Allergy Severe Anaphylaxis Verified 10/20/19 01:50 Cephalosporins Allergy Severe Anaphylaxis Verified 10/20/19 01:50 Sulfa (Sulfonamide Allergy Intermediate Hives Verified 10/20/19 01:50 Antibiotics) butorphanol AdvReac Intermediate RAPID HEART Verified 10/20/19 05:38 Cipro AdvReac Mild nausea Verified 04/12/17 12:39 ciprofloxacin AdvReac Mild nausea Verified 10/20/19 01:50 Home Medications Home Medications Medication Instructions Recorded Confirmed Type Biotene Moisturizing Mouth 1 spray MUCOUS MEMBRANE QID 11/02/18 10/20/19 History Creon 1 cap PO AC 11/02/18 10/20/19 History Novolin 70/30 U-100 Insulin 85 unit SUBCUT BID 11/02/18 10/20/19 History Novolin R Regular U-100 Insuln 1 sliding scale dose SUBCUT QID 11/02/18 10/20/19 History acetaminophen [Tylenol Arthritis 1,300 mg PO HS 11/02/18 10/20/19 History Pain] albuterol sulfate 2.5 mg INHALATION Q4 PRN 11/02/18 10/20/19 History albuterol sulfate [ProAir HFA] 2 puff INHALATION QID 11/02/18 10/20/19 History amitriptyline 25 mg PO HS 11/02/18 10/20/19 History ascorbic acid (vitamin C) 1 g PO QAM 11/02/18 10/20/19 History aspirin [Aspirin Childrens] 162 mg PO HS 11/02/18 10/20/19 History atorvastatin 40 mg PO HS 11/02/18 10/20/19 History cyanocobalamin (vitamin B-12) 1,000 mcg PO QPM 11/02/18 10/20/19 History erythromycin 1 applic OPHTHALMIC (EYE) QID 11/02/18 10/20/19 History ferrous sulfate 325 mg PO 1200 11/02/18 10/20/19 History fluticasone propionate [Flonase 2 spray INTRANASAL QAM 11/02/18 10/20/19 History Allergy Relief] folic acid 1 mg PO QAM 11/02/18 10/20/19 History gabapentin 400 mg PO TID 11/02/18 10/20/19 History hydroxychloroquine [Plaquenil] 400 mg PO HS 11/02/18 10/20/19 History latanoprost (PF) 1 drp OPHTHALMIC (EYE) HS 11/02/18 10/20/19 History levothyroxine 125 mcg PO QAM 11/02/18 10/20/19 History lorazepam 0.5 mg PO TID PRN 11/02/18 10/20/19 History meclizine 25 mg PO TID PRN 11/02/18 10/20/19 History methotrexate sodium 15 mg PO WK 11/02/18 10/20/19 History multivitamin with iron 1 tab PO QDL 11/02/18 10/20/19 History nitroglycerin 0.4 mg SUBLINGUAL UD PRN 11/02/18 10/20/19 History omeprazole 20 mg PO QAM 11/02/18 10/20/19 History potassium chloride 20 meq PO BID 11/02/18 10/20/19 History prednisone 5 mg PO QAM 11/02/18 10/20/19 History timolol 1 drp OPL BID 11/02/18 10/20/19 History torsemide 20 mg PO QAM 11/02/18 10/20/19 History bacitracin-polymyxin B 3.5 g OPR QID 10/20/19 10/20/19 History brimonidine 1 drp OPL BID 10/20/19 10/20/19 History cyanocobalamin (vitamin B-12) 1,500 mcg PO DAILY 10/20/19 10/20/19 History [Vitamin B-12] ergocalciferol (vitamin D2) 1,250 mcg PO WK 10/20/19 10/20/19 History tizanidine 2 mg PO Q6 PRN 10/20/19 10/20/19 History Patient History Medical History Anemia Blindness of both eyes in left eye since Chronic back pain Chronic kidney disease, stage 3 Chronic steroid use Congestive heart failure hx of Diabetes mellitus, type 2 Diabetic neuropathy Glaucoma Hernia currently has 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, sx only History of colon polyps History of gastric ulcer History of sinus problem reason for nebulizer and inhalers prn Hyperlipidemia Hypothyroidism Liver mass scheduled for biopsy @ [facility] [place] 11/08/18 Migraine Myocardial Infarction approx 10yrs ago was told "looked as though I had a heart attack at some point, but didnt know it" Nausea and vomiting after administration of anesthetic agent Pancreatitis per pt has had over 15 times Rheumatoid arthritis reason for steriod Sleep apnea CPAP Transient ischemic attack (TIA) x2 20+yrs ago--per MRIs had them--does not follow with neurologist, no deficits Surgical History History of appendectomy History of bilateral cataract extraction History of biopsy of bladder showed chronic cystitis History of carpal tunnel release of both wrists History of cholecystectomy History of colonoscopy History of detached retina repair x4 on right eye History of dilatation and curettage x3 History of esophagogastroduodenoscopy (EGD) History of liver biopsy BENIGN MASS History of lumbar discectomy History of partial thyroidectomy right side removed d/t papillary cancer History of tarsorrhaphy BILT--right eye closed shut, left eye partly closed History of tooth extraction all top teeth, most of bottom History of total hysterectomy with bilateral salpingo-oophorectomy (BSO) S/P foot surgery, left "stepped on a needle and had to have it removed" Family History Father Family history of reaction to anesthesia difficulty waking Family history of diabetes mellitus Mother Family history of diabetes mellitus Sister Family history of diabetes mellitus Brother Family history of diabetes mellitus Grandmother (Maternal) Family history of diabetes mellitus Grandmother (Paternal) Family history of diabetes mellitus Social History Preferred Language: Guamanian Communication Ability: Effective Communication Tools: Other 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 nontoxic. Skin: Warm, dry, Head: Atraumatic Ears, nose, mouth and throat: airway patent Cardiovascular: Normal peripheral perfusion Respiratory: no respiratory distress Gastrointestinal: Non distended Musculoskeletal: No deformity Results & Data Results & Data ([facility]) Vital Signs (Past 12 Hours) Vital Signs Temp Pulse Pulse Pulse Resp BP BP 10/20/19 13:13 70 18 101/52 L 10/20/19 12:14 36.9 C 68 17 91/53 L 10/20/19 09:11 37.1 C 78 20 90/53 L 10/20/19 08:00 36.7 C 99 H 18 140/72 10/20/19 07:00 36.8 C 90 22 130/74 10/20/19 06:00 36.9 C 91 H 20 10/20/19 05:45 37 C 89 18 122/72 10/20/19 05:30 36.8 C 90 20 122/72 10/20/19 05:15 37.2 C 94 H 20 156/83 H 10/20/19 04:45 37.5 C 89 25 H 150/69 H 10/20/19 04:35 37.5 C 89 25 H 152/85 H 10/20/19 04:25 37.5 C 87 24 152/68 H 10/20/19 04:15 37.5 C 87 25 H 158/67 H 10/20/19 04:05 37.5 C 86 25 H 146/70 H 10/20/19 03:55 85 25 H 164/68 H 10/20/19 03:45 83 25 H 158/69 H 10/20/19 03:37 37.3 C 85 17 141/65 H 10/20/19 01:56 75 18 160/83 H Pulse Ox 10/20/19 13:13 97 10/20/19 12:14 97 10/20/19 09:11 97 10/20/19 08:00 97 10/20/19 07:00 97 10/20/19 06:00 94 10/20/19 05:45 94 10/20/19 05:30 94 10/20/19 05:15 94 10/20/19 04:45 99 10/20/19 04:35 99 10/20/19 04:25 100 10/20/19 04:15 98 10/20/19 04:05 98 10/20/19 03:55 100 10/20/19 03:45 97 10/20/19 03:37 96 10/20/19 01:56 99 Laboratory Results 10/20/19 10/20/19 10/20/19 Range/Units 13:05 12:45 10:38 WBC (4.8-10.8) K/uL RBC (4.2-5.4) M/uL Hgb (12.0-16.0) g/dL Hct (37-47) % MCV (80-100) fL MCH (25-34) pg MCHC (32-36) g/dL RDW Std Deviation (36.4-46.3) fL RDW Coeff of [place] (11.5-14.5) % Plt Count (130-400) K/uL MPV (7.4-10.4) fL Immature Gran % (Auto) % Neut % (Auto) % Lymph % (Auto) % [place] % (Auto) % Eos % (Auto) % Baso % (Auto) % Neut # (Auto) (1.4-6.5) K/uL Lymph # (Auto) (1.2-3.4) K/uL [place] # (Auto) (0.11-0.59) K/uL Eos # (Auto) (0-0.5) K/uL Baso # (Auto) (0-0.2) K/uL Immature Gran # (Auto) (0.00-0.02) K/uL Toxic Vacuolation PT (9.0-12.0) Seconds INR (0.9-1.1) APTT (21.0-31.0) Seconds PTT Ratio Sodium (136-145) mmol/L Potassium (3.5-5.1) mmol/L Chloride (98-107) mmol/L Carbon Dioxide (21-32) mmol/L Anion Gap (3-11) BUN (7-18) mg/dl Creatinine (0.6-1.2) mg/dl Est Cr Clr Drug Dosing Est GFR ( Amer) Est GFR (Non-Af Amer) BUN/Creatinine Ratio (10-20) Glucose (70-99) mg/dl POC Glucose 294 H (70-99) mg/dl Estimat Average Glucose mg/dl Hemoglobin A1c (4.5-5.6) % Lactate 3.2 H* (0.4-2.0) mmol/L Calcium (8.5-10.1) mg/dl Magnesium (1.8-2.4) mg/dl Total Bilirubin (0.2-1) mg/dl AST (15-37) U/L ALT (12-78) U/L Alkaline Phosphatase (45-117) U/L Troponin I (0-0.045) ng/ml Total Protein (6.4-8.2) gm/dl Albumin (3.4-5.0) gm/dl Globulin (2.5-4.0) gm/dl Albumin/Globulin Ratio (0.9-2) Procalcitonin 62.76 H (0-0.5) ng/ml Urine Color Urine Appearance (Clear) Urine pH (4.5-7.5) Ur Specific [place] (1.000-1.030) Urine Protein (Negative) Urine Glucose (UA) (Negative) Urine Ketones (Negative) Urine Blood (Negative) Urine Nitrite (Negative) Urine Bilirubin (Negative) Urine Urobilinogen (Negative) Ur Leukocyte Esterase (Negative) Urine WBC (Auto) (0-5) /hpf Urine RBC (Auto) (0-4) /hpf U Hyaline Cast (Auto) (0-5) /lpf U Epithel Cells (Auto) (0-5) /lpf Urine Bacteria (Auto) (Negative) Urine Yeast Hepatitis C Ab Screen (Neg) 10/20/19 10/20/19 10/20/19 Range/Units 10:38 09:17 09:17 WBC (4.8-10.8) K/uL RBC (4.2-5.4) M/uL Hgb (12.0-16.0) g/dL Hct (37-47) % MCV (80-100) fL MCH (25-34) pg MCHC (32-36) g/dL RDW Std Deviation (36.4-46.3) fL RDW Coeff of Juani (11.5-14.5) % Plt Count (130-400) K/uL MPV (7.4-10.4) fL Immature Gran % (Auto) % Neut % (Auto) % Lymph % (Auto) % [place] % (Auto) % Eos % (Auto) % Baso % (Auto) % Neut # (Auto) (1.4-6.5) K/uL Lymph # (Auto) (1.2-3.4) K/uL [place] # (Auto) (0.11-0.59) K/uL Eos # (Auto) (0-0.5) K/uL Baso # (Auto) (0-0.2) K/uL Immature Gran # (Auto) (0.00-0.02) K/uL Toxic Vacuolation PT (9.0-12.0) Seconds INR (0.9-1.1) APTT (21.0-31.0) Seconds PTT Ratio Sodium (136-145) mmol/L Potassium (3.5-5.1) mmol/L Chloride (98-107) mmol/L Carbon Dioxide (21-32) mmol/L Anion Gap (3-11) BUN (7-18) mg/dl Creatinine (0.6-1.2) mg/dl Est Cr Clr Drug Dosing Est GFR ( Amer) Est GFR (Non-Af Amer) BUN/Creatinine Ratio (10-20) Glucose (70-99) mg/dl POC Glucose (70-99) mg/dl Estimat Average Glucose 183 mg/dl Hemoglobin A1c 8.0 H (4.5-5.6) % Lactate 4.9 H* (0.4-2.0) mmol/L Calcium (8.5-10.1) mg/dl Magnesium (1.8-2.4) mg/dl Total Bilirubin (0.2-1) mg/dl AST (15-37) U/L ALT (12-78) U/L Alkaline Phosphatase (45-117) U/L Troponin I (0-0.045) ng/ml Total Protein (6.4-8.2) gm/dl Albumin (3.4-5.0) gm/dl Globulin (2.5-4.0) gm/dl Albumin/Globulin Ratio (0.9-2) Procalcitonin (0-0.5) ng/ml Urine Color Urine Appearance (Clear) Urine pH (4.5-7.5) Ur Specific [place] (1.000-1.030) Urine Protein (Negative) Urine Glucose (UA) (Negative) Urine Ketones (Negative) Urine Blood (Negative) Urine Nitrite (Negative) Urine Bilirubin (Negative) Urine Urobilinogen (Negative) Ur Leukocyte Esterase (Negative) Urine WBC (Auto) (0-5) /hpf Urine RBC (Auto) (0-4) /hpf U Hyaline Cast (Auto) (0-5) /lpf U Epithel Cells (Auto) (0-5) /lpf Urine Bacteria (Auto) (Negative) Urine Yeast Hepatitis C Ab Screen Neg (Neg) 10/20/19 10/20/19 10/20/19 Range/Units 09:17 09:17 07:54 WBC 41.76 H* D (4.8-10.8) K/uL RBC 3.88 L (4.2-5.4) M/uL Hgb 11.8 L (12.0-16.0) g/dL Hct 37.6 (37-47) % MCV 96.9 (80-100) fL MCH 30.4 (25-34) pg MCHC 31.4 L (32-36) g/dL RDW Std Deviation 50.0 H (36.4-46.3) fL RDW Coeff of Juani 14.3 (11.5-14.5) % Plt Count 144 (130-400) K/uL MPV 10.7 H (7.4-10.4) fL Immature Gran % (Auto) 1.5 % Neut % (Auto) 92.5 % Lymph % (Auto) 1.0 % [place] % (Auto) 4.9 % Eos % (Auto) 0.0 % Baso % (Auto) 0.1 % Neut # (Auto) 38.59 H (1.4-6.5) K/uL Lymph # (Auto) 0.42 L (1.2-3.4) K/uL [place] # (Auto) 2.06 H (0.11-0.59) K/uL Eos # (Auto) 0.01 (0-0.5) K/uL Baso # (Auto) 0.04 (0-0.2) K/uL Immature Gran # (Auto) 0.64 H (0.00-0.02) K/uL Toxic Vacuolation 1+ PT (9.0-12.0) Seconds INR (0.9-1.1) APTT (21.0-31.0) Seconds PTT Ratio Sodium 138 (136-145) mmol/L Potassium 4.3 D (3.5-5.1) mmol/L Chloride 104 (98-107) mmol/L Carbon Dioxide 23 (21-32) mmol/L Anion Gap 10.0 (3-11) BUN 14 (7-18) mg/dl Creatinine 1.32 H D (0.6-1.2) mg/dl Est Cr Clr Drug Dosing 52.5 Est GFR ( Amer) 47.6 Est GFR (Non-Af Amer) 41.1 BUN/Creatinine Ratio 10.7 (10-20) Glucose 299 H (70-99) mg/dl POC Glucose 290 H (70-99) mg/dl Estimat Average Glucose mg/dl Hemoglobin A1c (4.5-5.6) % Lactate (0.4-2.0) mmol/L Calcium 8.7 (8.5-10.1) mg/dl Magnesium 1.1 L (1.8-2.4) mg/dl Total Bilirubin (0.2-1) mg/dl AST (15-37) U/L ALT (12-78) U/L Alkaline Phosphatase (45-117) U/L Troponin I (0-0.045) ng/ml Total Protein (6.4-8.2) gm/dl Albumin (3.4-5.0) gm/dl Globulin (2.5-4.0) gm/dl Albumin/Globulin Ratio (0.9-2) Procalcitonin (0-0.5) ng/ml Urine Color Urine Appearance (Clear) Urine pH (4.5-7.5) Ur Specific [place] (1.000-1.030) Urine Protein (Negative) Urine Glucose (UA) (Negative) Urine Ketones (Negative) Urine Blood (Negative) Urine Nitrite (Negative) Urine Bilirubin (Negative) Urine Urobilinogen (Negative) Ur Leukocyte Esterase (Negative) Urine WBC (Auto) (0-5) /hpf Urine RBC (Auto) (0-4) /hpf U Hyaline Cast (Auto) (0-5) /lpf U Epithel Cells (Auto) (0-5) /lpf Urine Bacteria (Auto) (Negative) Urine Yeast Hepatitis C Ab Screen (Neg) 10/20/19 10/20/19 10/20/19 Range/Units 05:18 03:44 02:35 WBC (4.8-10.8) K/uL RBC (4.2-5.4) M/uL Hgb (12.0-16.0) g/dL Hct (37-47) % MCV (80-100) fL MCH (25-34) pg MCHC (32-36) g/dL RDW Std Deviation (36.4-46.3) fL RDW Coeff of [place]ani (11.5-14.5) % Plt Count (130-400) K/uL MPV (7.4-10.4) fL Immature Gran % (Auto) % Neut % (Auto) % Lymph % (Auto) % [place] % (Auto) % Eos % (Auto) % Baso % (Auto) % Neut # (Auto) (1.4-6.5) K/uL Lymph # (Auto) (1.2-3.4) K/uL [place] # (Auto) (0.11-0.59) K/uL Eos # (Auto) (0-0.5) K/uL Baso # (Auto) (0-0.2) K/uL Immature Gran # (Auto) (0.00-0.02) K/uL Toxic Vacuolation PT (9.0-12.0) Seconds INR (0.9-1.1) APTT (21.0-31.0) Seconds PTT Ratio Sodium (136-145) mmol/L Potassium (3.5-5.1) mmol/L Chloride (98-107) mmol/L Carbon Dioxide (21-32) mmol/L Anion Gap (3-11) BUN (7-18) mg/dl Creatinine (0.6-1.2) mg/dl Est Cr Clr Drug Dosing Est GFR ( Amer) Est GFR (Non-Af Amer) BUN/Creatinine Ratio (10-20) Glucose (70-99) mg/dl POC Glucose 229 H 200 H 154 H (70-99) mg/dl Estimat Average Glucose mg/dl Hemoglobin A1c (4.5-5.6) % Lactate (0.4-2.0) mmol/L Calcium (8.5-10.1) mg/dl Magnesium (1.8-2.4) mg/dl Total Bilirubin (0.2-1) mg/dl AST (15-37) U/L ALT (12-78) U/L Alkaline Phosphatase (45-117) U/L Troponin I (0-0.045) ng/ml Total Protein (6.4-8.2) gm/dl Albumin (3.4-5.0) gm/dl Globulin (2.5-4.0) gm/dl Albumin/Globulin Ratio (0.9-2) Procalcitonin (0-0.5) ng/ml Urine Color Urine Appearance (Clear) Urine pH (4.5-7.5) Ur Specific [place] (1.000-1.030) Urine Protein (Negative) Urine Glucose (UA) (Negative) Urine Ketones (Negative) Urine Blood (Negative) Urine Nitrite (Negative) Urine Bilirubin (Negative) Urine Urobilinogen (Negative) Ur Leukocyte Esterase (Negative) Urine WBC (Auto) (0-5) /hpf Urine RBC (Auto) (0-4) /hpf U Hyaline Cast (Auto) (0-5) /lpf U Epithel Cells (Auto) (0-5) /lpf Urine Bacteria (Auto) (Negative) Urine Yeast Hepatitis C Ab Screen (Neg) 10/20/19 10/19/19 10/19/19 Range/Units 00:10 22:22 21:52 WBC (4.8-10.8) K/uL RBC (4.2-5.4) M/uL Hgb (12.0-16.0) g/dL Hct (37-47) % MCV (80-100) fL MCH (25-34) pg MCHC (32-36) g/dL RDW Std Deviation (36.4-46.3) fL RDW Coeff of [place]ani (11.5-14.5) % Plt Count (130-400) K/uL MPV (7.4-10.4) fL Immature Gran % (Auto) % Neut % (Auto) % Lymph % (Auto) % [place] % (Auto) % Eos % (Auto) % Baso % (Auto) % Neut # (Auto) (1.4-6.5) K/uL Lymph # (Auto) (1.2-3.4) K/uL [place] # (Auto) (0.11-0.59) K/uL Eos # (Auto) (0-0.5) K/uL Baso # (Auto) (0-0.2) K/uL Immature Gran # (Auto) (0.00-0.02) K/uL Toxic Vacuolation PT (9.0-12.0) Seconds INR (0.9-1.1) APTT (21.0-31.0) Seconds PTT Ratio Sodium (136-145) mmol/L Potassium (3.5-5.1) mmol/L Chloride (98-107) mmol/L Carbon Dioxide (21-32) mmol/L Anion Gap (3-11) BUN (7-18) mg/dl Creatinine (0.6-1.2) mg/dl Est Cr Clr Drug Dosing Est GFR ( Amer) Est GFR (Non-Af Amer) BUN/Creatinine Ratio (10-20) Glucose (70-99) mg/dl POC Glucose (70-99) mg/dl Estimat Average Glucose mg/dl Hemoglobin A1c (4.5-5.6) % Lactate 1.7 2.9 H* (0.4-2.0) mmol/L Calcium (8.5-10.1) mg/dl Magnesium (1.8-2.4) mg/dl Total Bilirubin (0.2-1) mg/dl AST (15-37) U/L ALT (12-78) U/L Alkaline Phosphatase (45-117) U/L Troponin I (0-0.045) ng/ml Total Protein (6.4-8.2) gm/dl Albumin (3.4-5.0) gm/dl Globulin (2.5-4.0) gm/dl Albumin/Globulin Ratio (0.9-2) Procalcitonin (0-0.5) ng/ml Urine Color Yellow Urine Appearance Cloudy A (Clear) Urine pH 6.5 (4.5-7.5) Ur Specific [place] 1.014 (1.000-1.030) Urine Protein 2+ H (Negative) Urine Glucose (UA) Negative (Negative) Urine Ketones Negative (Negative) Urine Blood 1+ H (Negative) Urine Nitrite Positive A (Negative) Urine Bilirubin Negative (Negative) Urine Urobilinogen Negative (Negative) Ur Leukocyte Esterase 3+ H (Negative) Urine WBC (Auto) >30 H (0-5) /hpf Urine RBC (Auto) 5-10 H (0-4) /hpf U Hyaline Cast (Auto) 5-10 H (0-5) /lpf U Epithel Cells (Auto) >30 H (0-5) /lpf Urine Bacteria (Auto) 4+ H (Negative) Urine Yeast Not Reportable Hepatitis C Ab Screen (Neg) 10/19/19 10/19/19 10/19/19 Range/Units 21:45 21:45 21:45 WBC (4.8-10.8) K/uL RBC (4.2-5.4) M/uL Hgb (12.0-16.0) g/dL Hct (37-47) % MCV (80-100) fL MCH (25-34) pg MCHC (32-36) g/dL RDW Std Deviation (36.4-46.3) fL RDW Coeff of [place] (11.5-14.5) % Plt Count (130-400) K/uL MPV (7.4-10.4) fL Immature Gran % (Auto) % Neut % (Auto) % Lymph % (Auto) % [place] % (Auto) % Eos % (Auto) % Baso % (Auto) % Neut # (Auto) (1.4-6.5) K/uL Lymph # (Auto) (1.2-3.4) K/uL [place] # (Auto) (0.11-0.59) K/uL Eos # (Auto) (0-0.5) K/uL Baso # (Auto) (0-0.2) K/uL Immature Gran # (Auto) (0.00-0.02) K/uL Toxic Vacuolation PT 10.9 (9.0-12.0) Seconds INR 1.0 (0.9-1.1) APTT 20.0 L (21.0-31.0) Seconds PTT Ratio 0.7 Sodium 142 (136-145) mmol/L Potassium 3.3 L (3.5-5.1) mmol/L Chloride 107 (98-107) mmol/L Carbon Dioxide 27 (21-32) mmol/L Anion Gap 8.0 (3-11) BUN 13 (7-18) mg/dl Creatinine 0.89 (0.6-1.2) mg/dl Est Cr Clr Drug Dosing Not Reportable Est GFR ( Amer) 76.6 Est GFR (Non-Af Amer) 66.1 BUN/Creatinine Ratio 15.0 (10-20) Glucose 105 H (70-99) mg/dl POC Glucose (70-99) mg/dl Estimat Average Glucose mg/dl Hemoglobin A1c (4.5-5.6) % Lactate (0.4-2.0) mmol/L Calcium 9.6 (8.5-10.1) mg/dl Magnesium 1.2 L (1.8-2.4) mg/dl Total Bilirubin 0.8 (0.2-1) mg/dl AST 16 (15-37) U/L ALT 18 (12-78) U/L Alkaline Phosphatase 109 (45-117) U/L Troponin I < 0.015 (0-0.045) ng/ml Total Protein 6.8 (6.4-8.2) gm/dl Albumin 3.4 (3.4-5.0) gm/dl Globulin 3.4 (2.5-4.0) gm/dl Albumin/Globulin Ratio 1.0 (0.9-2) Procalcitonin 1.49 H (0-0.5) ng/ml Urine Color Urine Appearance (Clear) Urine pH (4.5-7.5) Ur Specific [place] (1.000-1.030) Urine Protein (Negative) Urine Glucose (UA) (Negative) Urine Ketones (Negative) Urine Blood (Negative) Urine Nitrite (Negative) Urine Bilirubin (Negative) Urine Urobilinogen (Negative) Ur Leukocyte Esterase (Negative) Urine WBC (Auto) (0-5) /hpf Urine RBC (Auto) (0-4) /hpf U Hyaline Cast (Auto) (0-5) /lpf U Epithel Cells (Auto) (0-5) /lpf Urine Bacteria (Auto) (Negative) Urine Yeast Hepatitis C Ab Screen (Neg) 10/19/19 Range/Units 21:45 WBC 13.50 H (4.8-10.8) K/uL RBC 4.51 (4.2-5.4) M/uL Hgb 13.9 (12.0-16.0) g/dL Hct 43.4 (37-47) % MCV 96.2 (80-100) fL MCH 30.8 (25-34) pg MCHC 32.0 (32-36) g/dL RDW Std Deviation 48.4 H (36.4-46.3) fL RDW Coeff of [place] 13.9 (11.5-14.5) % Plt Count 150 (130-400) K/uL MPV 10.7 H (7.4-10.4) fL Immature Gran % (Auto) 0.6 % Neut % (Auto) 96.3 % Lymph % (Auto) 1.6 % [place] % (Auto) 1.0 % Eos % (Auto) 0.4 % Baso % (Auto) 0.1 % Neut # (Auto) 13.02 H (1.4-6.5) K/uL Lymph # (Auto) 0.21 L (1.2-3.4) K/uL [place] # (Auto) 0.13 (0.11-0.59) K/uL Eos # (Auto) 0.05 (0-0.5) K/uL Baso # (Auto) 0.01 (0-0.2) K/uL Immature Gran # (Auto) 0.08 H (0.00-0.02) K/uL Toxic Vacuolation PT (9.0-12.0) Seconds INR (0.9-1.1) APTT (21.0-31.0) Seconds PTT Ratio Sodium (136-145) mmol/L Potassium (3.5-5.1) mmol/L Chloride (98-107) mmol/L Carbon Dioxide (21-32) mmol/L Anion Gap (3-11) BUN (7-18) mg/dl Creatinine (0.6-1.2) mg/dl Est Cr Clr Drug Dosing Est GFR ( Amer) Est GFR (Non-Af Amer) BUN/Creatinine Ratio (10-20) Glucose (70-99) mg/dl POC Glucose (70-99) mg/dl Estimat Average Glucose mg/dl Hemoglobin A1c (4.5-5.6) % Lactate (0.4-2.0) mmol/L Calcium (8.5-10.1) mg/dl Magnesium (1.8-2.4) mg/dl Total Bilirubin (0.2-1) mg/dl AST (15-37) U/L ALT (12-78) U/L Alkaline Phosphatase (45-117) U/L Troponin I (0-0.045) ng/ml Total Protein (6.4-8.2) gm/dl Albumin (3.4-5.0) gm/dl Globulin (2.5-4.0) gm/dl Albumin/Globulin Ratio (0.9-2) Procalcitonin (0-0.5) ng/ml Urine Color Urine Appearance (Clear) Urine pH (4.5-7.5) Ur Specific [place] (1.000-1.030) Urine Protein (Negative) Urine Glucose (UA) (Negative) Urine Ketones (Negative) Urine Blood (Negative) Urine Nitrite (Negative) Urine Bilirubin (Negative) Urine Urobilinogen (Negative) Ur Leukocyte Esterase (Negative) Urine WBC (Auto) (0-5) /hpf Urine RBC (Auto) (0-4) /hpf U Hyaline Cast (Auto) (0-5) /lpf U Epithel Cells (Auto) (0-5) /lpf Urine Bacteria (Auto) (Negative) Urine Yeast Hepatitis C Ab Screen (Neg) Coding Level of Care Code Critical Care 1st 30-74 mins Diagnoses Severe sepsis A41.9; R65.20 Right ureteral stone N20.1 [place] (acute kidney injury) N17.9 Leukemoid reaction D72.823 Lactic acidosis E87.2 Hyperglycemia due to diabetes mellitus E11.65 Hypomagnesemia E83.42 Elevated hemoglobin A1c measurement R73.09 Bacteremia due to Gram-negative bacteria R78.81 Time Spent (min) 45 Comment I have personally spent 45 minutes of critical care time in the direct management of this patient. This is a life/limb threatening event. This includes time spent evaluating patient, direct bedside care, chart review, placing orders, interpretation of diagnostic studies, discussion with consultants, patient, and/or family members regarding treatment decisions, as well as other required patient management activities. This time is exclusive of all separately billable procedures, and teaching time and separate from and in addition to any other critical care service time.
--- NOTE | 2019-10-20 15:22 | Pharmacy Report ---
Glycemic Control Consultation - Date of Service October 20, 2019 - Scope Scope: Glycemic Pharmacist consulted for glycemic control and to write orders per [facility] inpatient glycemic control protocol. - Objective Weight: 124.7 kg Accuchecks BSG (last 24hrs): 10/19/19 10/20/19 10/20/19 21:45 02:35 03:44 Glucose 105 H POC Glucose 154 H 200 H 10/20/19 10/20/19 10/20/19 05:18 07:54 09:17 Glucose 299 H POC Glucose 229 H 290 H 10/20/19 12:45 Glucose POC Glucose 294 H Laboratory Data (last 24hrs): 10/19/19 10/20/19 21:45 09:17 Potassium 3.3 L 4.3 D Carbon Dioxide 27 23 Anion Gap 8.0 10.0 Creatinine 0.89 1.32 H D Est Cr Clr Drug Dosing Not Reportable 52.5 HbA1c: Hemoglobin A1c 8.0 % (4.5-5.6) H 10/20/19 09:17 - Recent Pertinent Medications Outpatient Anti-diabetic Regimen: * Novolin 70/30 - 85 BID with meals + sliding scale up to 100 units/day * A1c = 8.0 % 10/20/19 Risk Factors for Insulin Resistance: * Steroids: Hydrocortisone 100mg IV Q8H started at 1200 today * Infection: gram negative bacteremia, IV Azactam * IVF: Normosol * Recent Surgery: POD 0 for obstructed right ureteral stone. * Diet: Type 2 DM - Assessment & Plan Assessment & Plan: ASSESSMENT: * 69-year-old female with gram-negative bacteremia secondary to pyelonephritis secondary to obstructed right ureteral stone, POD 0, transferred to ICU and started on high dose IV steroids. * Outpatient regimen is premixed basal/prandial insulin of Novolin 70/30 mix insulin. * Pre-mixed insulin is difficult to titrate since it is already in a fixed distribution of basal:prandial insulin. Continuing pre-mixed insulin for admission typically lead to hypoglycemia d/t changing PO status but rapid acting insulin is unable to be held. * Home regimen will be held for admission per pharmacy consult. Will utilize recommended regimen of SQ basal bolus insulin regimen with NPH (for easy transition back to Novolin) + NovoLog (CF+CR) * Give additional NPH dose now with first dose of IV hydrocortisone and then increase dose and tighten CF and CR for steroid induced hyperglycemia. * ADA & AACE recommend a goal blood sugar range 140-180 mg/dl for the majority of critically ill & non-critically ill patients. However, more stringent targets may be selected in individual cases. Will utilize more stringent goal of 110-140mg/dl based on patient age & comorbidities. Additionally, tighter glycemic control is warranted to facilitate wound/infection healing. PLAN FOR INPATIENT GLYCEMIC CONTROL: * Basal insulin - increase * NPH 25 units BID - AM dose given, then 25 units SQ x 1 dose now then * NPH SQ BID based on blood sugars * BSG <140mg/dl - 25 units * BSG 140-180mg/dl - 50 units * BSG > 180mg/dl - 60 units * Bolus insulin * NovoLog per scale ACHS or Q6hrs while NPO * Goal Range: Low 110 mg/dL - High 140 mg/dL * TIGHTEN: Correction Factor: 10 mg/dL/unit * TIGHTEN: Nutritional / Prandial insulin per carb ratio of 1 unit per 3 grams CHO consumed * Please note that the plan above was derived based on current level of insulin resistance and hospital stress. These recommendations are appropriate for inpatient admission only. Plan of care upon discharge will need to be reassessed to avoid potential outpatient hypo/hyperglycemia. Thank you.
[2019-10-20] MEDS: NORMOSOL-R 1,000 ML IV SCH (16:22)
[2019-10-20] MEDS ORDERED: INSULIN REGULAR SC ONE (16:45)
[2019-10-20] MEDS ORDERED: SODIUM CHLORIDE 0.9% SC ONE (16:45)
[2019-10-20 18:29] LABS: BUN Creatinine Ratio 13.1 (10-20); Calcium 8.2 mg/dl (8.5-10.1); Creatinine Clr Calc Pharmacy 49.2 ml/min; Est GFR (African American) 43.9; Est GFR (Non-African American) 37.9; Magnesium 1.9 mg/dl (1.8-2.4); Potassium 4.2 mmol/L (3.5-5.1)
[2019-10-20] MEDS ORDERED: AMITRIPTYLINE HCL 25 MG TAB PO SCH (21:00)
[2019-10-20] MEDS ORDERED: ACETAMINOPHEN 500 MG TAB PO SCH (21:00)
[2019-10-20] MEDS ORDERED: HYDROXYCHLOROQUINE SULFATE 200 MG TAB PO SCH (21:00)
[2019-10-20] MEDS ORDERED: ASPIRIN 81 MG ECTAB PO SCH (21:00)
[2019-10-20] MEDS ORDERED: LORazepam 0.5 MG TAB ONE (21:02)
[2019-10-20] MEDS: LATANOPROST 0.005% OP SOLN 2.5 ML BTL OP SCH (21:05)
[2019-10-20] MEDS: ATORVASTATIN 40 MG TAB PO SCH (21:07)
[2019-10-20] MEDS: CYANOCOBALAMIN 500 MCG TABLET (VITAMIN B-12) PO SCH (21:11)
[2019-10-20] MEDS: INSULIN HUMAN NPH SC SCH (21:52)
[2019-10-21] MEDS ORDERED: INSULIN ASPART 100 UNITS/ML 3 ML PEN SC SCH
[2019-10-21] MEDS: NORMOSOL-R 1,000 ML IV SCH ×3 (00:44→16:33)
[2019-10-21] MEDS: AZTREONAM 2,000 MG in DEXTROSE 5% 100 ML IV SCH ×4 (00:44→20:51)
[2019-10-21] MEDS: HYDROmorphone INJ 0.5 MG/0.5 ML SYR IV PRN ×2 (00:50→04:20)
[2019-10-21] MEDS: HYDROCORTISONE SOD 100 MG in SYRINGE 0 ML IV SCH ×2 (04:18→11:48)
[2019-10-21 04:24] LABS: Hematocrit (blood only) 30.9 % (37-47); Mean Corpuscular Hemoglobin 30.8 pg (25-34); Mean Corpuscular Hgb Conc 32.4 g/dL (32-36); Mean Corpuscular Volume 95.1 fL (80-100); Mean Platelet Volume 10.6 fL (7.4-10.4); Platelet Count 105 K/uL (130-400); RDW Coefficient of Variation 14.4 % (11.5-14.5); RDW Standard Deviation 49.4 fL (36.4-46.3); Red Blood Count 3.25 M/uL (4.2-5.4); White Blood Count 27.09 K/uL (4.8-10.8)
[2019-10-21 04:49] LABS: Albumin Level 2.3 gm/dl (3.4-5.0); BUN Creatinine Ratio 18.5 (10-20); Calcium 7.9 mg/dl (8.5-10.1); Creatinine Clr Calc Pharmacy 61.3 ml/min; Est GFR (African American) 57.4; Est GFR (Non-African American) 49.6; Potassium 4.2 mmol/L (3.5-5.1)
[2019-10-21 04:56] LABS: Albumin Globulin Ratio 0.7 (0.9-2); Bilirubin,Total 0.4 mg/dl (0.2-1); Globulin 3.2 gm/dl (2.5-4.0); Total Protein 5.5 gm/dl (6.4-8.2)
[2019-10-21] MEDS: LEVOTHYROXINE SODIUM 125 MCG TABLET PO SCH (05:43)
[2019-10-21] MEDS ORDERED: POTASSIUM CHLORIDE 20 MEQ/15 ML UDC PO ONE (07:00)
[2019-10-21] MEDS: PANTOprazole 40 MG TAB PO SCH (07:39)
[2019-10-21] MEDS: FOLIC ACID 1 MG TAB PO SCH (07:39)
[2019-10-21] MEDS: PHENAZOPYRIDINE HCL 100 MG TAB PO SCH ×3 (07:39→20:52)
[2019-10-21] MEDS: BRIMONIDINE TARTRATE 0.2% 5ML OPL SCH ×2 (07:40→20:53)
[2019-10-21] MEDS: PANCREAZE (LIPASE 10,500U) CAP PO SCH ×3 (07:40→16:34)
[2019-10-21] MEDS: ASCORBIC ACID 500 MG TAB PO SCH (07:40)
[2019-10-21] MEDS: ERYTHROMYCIN OP OINT 5 MG/GM 3.5 GM TUBE OP SCH ×4 (07:41→20:54)
[2019-10-21] MEDS: FLUTICASONE PROPIONATE NA SPR 16 GM BTL SCH (07:41)
[2019-10-21] MEDS: BACITRACIN/POLYMYX B OPH OINT 3.5 GM TUBE OPR SCH ×4 (07:41→20:52)
[2019-10-21] MEDS: TIMOLOL MALEATE 0.5% OP SOLN 5 ML BTL OP SCH ×2 (07:41→20:53)
[2019-10-21] MEDS: INSULIN ASPART 100 UNITS/ML 3 ML PEN SC SCH ×4 (07:43→20:52)
[2019-10-21] MEDS: INSULIN HUMAN NPH SC SCH ×2 (07:43→16:35)
--- NOTE | 2019-10-21 10:26 | Pharmacy Report ---
Pharmacy Glycemic Short Note 2 - Date of Service October 21, 2019 - Glycemic Short BSG Results (Last 24 hours): 10/20/19 10/20/19 10/20/19 09:17 12:45 16:25 Glucose 299 H POC Glucose 294 H 323 H* 10/20/19 10/20/19 10/20/19 16:29 18:02 20:55 Glucose 300 H POC Glucose 312 H* 215 H 10/21/19 10/21/19 10/21/19 00:46 04:09 07:24 Glucose 212 H POC Glucose 186 H 251 H OUTPATIENT ANTIDIABETIC REGIMEN: * Novolin 70/30 - 85 BID with meals + sliding scale up to 100 units/day * A1c = 8.0 % 10/20/19 Risk Factors for Insulin Resistance: * Steroids: Hydrocortisone 100mg IV Q8H * Infection: gram negative bacteremia, IV Azactam * IVF: Normosol * Recent Surgery: POD 1 for obstructed right ureteral stone. * Diet: Type 2 DM ASSESSMENT: 10/21/19 * Patient received 199 units of insulin yesterday. * Patient remains on high dose steroids with elevated blood sugar, increase NPH and tighten CF further. 10/20/19 * 69-year-old female with gram-negative bacteremia secondary to pyelonephritis secondary to obstructed right ureteral stone, POD 0, transferred to ICU and started on high dose IV steroids. * Outpatient regimen is premixed basal/prandial insulin of Novolin 70/30 mix insulin. * Pre-mixed insulin is difficult to titrate since it is already in a fixed distribution of basal:prandial insulin. Continuing pre-mixed insulin for admission typically lead to hypoglycemia d/t changing PO status but rapid acting insulin is unable to be held. * Home regimen will be held for admission per pharmacy consult. Will utilize recommended regimen of SQ basal bolus insulin regimen with NPH (for easy transition back to Novolin) + NovoLog (CF+CR) * Give additional NPH dose now with first dose of IV hydrocortisone and then increase dose and tighten CF and CR for steroid induced hyperglycemia. * ADA & AACE recommend a goal blood sugar range 140-180 mg/dl for the majority of critically ill & non-critically ill patients. However, more stringent targets may be selected in individual cases. Will utilize more stringent goal of 110-140mg/dl based on patient age & comorbidities. Additionally, tighter glycemic control is warranted to facilitate wound/infection healing. PLAN FOR INPATIENT GLYCEMIC CONTROL: * Basal insulin - INCREASE * BSG <140mg/dl - 25 units * BSG 140-180mg/dl - 60 units * BSG > 180mg/dl - 70 units * Bolus insulin * NovoLog per scale ACHS or Q6hrs while NPO * Goal Range: Low 110 mg/dL - High 140 mg/dL * TIGHTEN: Correction Factor: 6 mg/dL/unit * TIGHTEN: Nutritional / Prandial insulin per carb ratio of 1 unit per 2 grams CHO consumed PLAN FOR DISCHARGE: * A1c 8.0%, right at goal for patient's age and comorbidities. * Patient on mixed insulin, therefore difficult to make adjustments in insulin regimen. * Encourage better glycemic control through lifestyle modifications including consistent carbohydrate intake and physical activity.
[2019-10-21] MEDS: FERROUS SULFATE 325 MG TAB PO SCH (11:49)
[2019-10-21] MEDS: MULTIVITAMIN TAB PO SCH (11:49)
--- NOTE | 2019-10-21 12:43 | Critical Care Progress Note ---
Date of Service October 21, 2019 Assessment & Plan (1) Admitted to intensive care unit: (1) Severe sepsis: Reason Critically Ill: 69-year-old female with gram-negative bacteremia secondary to pyelonephritis secondary to obstructed right ureteral stone. 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 -Eyes surgically sewn shut Resp: Supplemental oxygen, goal saturation greater than 94% CV: Hypotension: Resolved -Improved with intravenous fluids Prolonged QTC -Likely secondary to medication -Holding hydroxychloroquine and Elavil Fluids/Renal: Hypomagnesemia: Improved/resolved Acute kidney injury on chronic renal insufficiency chronic kidney disease stage III -Improved ID: Gram-negative bacteremia -Aztreonam -October 19 cultures no growth to date awaiting speciation GI/Nutrition: Statin therapy -Indication by possible cardiac disease and well as known diabetes Morbid obesity -BMI 47 Heme: Anemia -Currently receiving iron supplementation as an outpatient DVT prophylaxis: Heparin 7500 units 3 times daily Endocrine: ICU hyperglycemia protocol Poorly controlled type 2 diabetes: Improved -Pharmacy consult Hypothyroidism -125 mcg p.o. daily Rheumatoid arthritis -Chronic steroid therapy: Prednisone 5 mg daily - restart 5 mg prednisone daily therapy discontinue stress dose steroids -On hydroxychloroquine: Holding with prolonged QTC Vascular access: Peripheral IVs Code Status: DO NOT RESUSCITATE in event of cardiac arrest Disposition: Stable for downgrade out of ICU Admission and Anticipated Discharge Date Admission Date: October 20, 2019 Subjective Patient alert mentating at baseline Physical Exam Physical Exam: General: Alert. nontoxic. Skin: Warm, dry, Head: Atraumatic Ears, nose, mouth and throat: airway patent: Right eye surgically closed left eye partially surgically closed Cardiovascular: Normal peripheral perfusion Respiratory: no respiratory distress Gastrointestinal: Non distended Musculoskeletal: No deformity Results & Data Results & Data ([facility]) Vital Signs (Past 12 Hours) Vital Signs Temp Pulse Resp BP Pulse Ox 10/21/19 11:13 80 20 156/70 H 96 10/21/19 10:13 80 19 144/75 H 95 10/21/19 09:13 84 25 H 140/63 94 10/21/19 08:13 36.8 C 85 19 149/73 H 93 10/21/19 07:13 71 12 133/65 94 10/21/19 06:00 71 13 95 10/21/19 05:21 81 16 95 10/21/19 05:13 71 13 124/63 93 07/12/20 05:00 72 13 93 10/21/19 04:13 80 14 150/69 H 96 10/21/19 04:00 79 13 96 10/21/19 03:13 81 16 145/72 H 97 10/21/19 03:00 78 15 96 10/21/19 02:13 77 13 134/59 L 96 10/21/19 02:00 74 15 95 10/21/19 01:53 76 24 98 10/21/19 01:13 73 17 136/68 98 10/21/19 01:00 70 13 93 Laboratory Results 10/21/19 10/21/19 10/21/19 Range/Units 11:12 08:33 08:33 WBC (4.8-10.8) K/uL RBC (4.2-5.4) M/uL Hgb (12.0-16.0) g/dL Hct (37-47) % MCV (80-100) fL MCH (25-34) pg MCHC (32-36) g/dL RDW Std Deviation (36.4-46.3) fL RDW Coeff of Juani (11.5-14.5) % Plt Count (130-400) K/uL MPV (7.4-10.4) fL Sodium (136-145) mmol/L Potassium (3.5-5.1) mmol/L Chloride (98-107) mmol/L Carbon Dioxide (21-32) mmol/L Anion Gap (3-11) BUN (7-18) mg/dl Creatinine (0.6-1.2) mg/dl Est Cr Clr Drug Dosing ml/min Est GFR ( Amer) Est GFR (Non-Af Amer) BUN/Creatinine Ratio (10-20) Glucose (70-99) mg/dl POC Glucose 250 H (70-99) mg/dl Lactate 2.0 (0.4-2.0) mmol/L Calcium (8.5-10.1) mg/dl Magnesium (1.8-2.4) mg/dl Total Bilirubin (0.2-1) mg/dl AST (15-37) U/L ALT (12-78) U/L Alkaline Phosphatase (45-117) U/L Total Protein (6.4-8.2) gm/dl Albumin (3.4-5.0) gm/dl Globulin (2.5-4.0) gm/dl Albumin/Globulin Ratio (0.9-2) Procalcitonin 36.48 H (0-0.5) ng/ml Nasal Screen MRSA (PCR) (Negative) 10/21/19 10/21/19 10/21/19 Range/Units 07:24 04:09 04:09 WBC 27.09 H D (4.8-10.8) K/uL RBC 3.25 L (4.2-5.4) M/uL Hgb 10.0 L (12.0-16.0) g/dL Hct 30.9 L (37-47) % MCV 95.1 (80-100) fL MCH 30.8 (25-34) pg MCHC 32.4 (32-36) g/dL RDW Std Deviation 49.4 H (36.4-46.3) fL RDW Coeff of Juani 14.4 (11.5-14.5) % Plt Count 105 L (130-400) K/uL MPV 10.6 H (7.4-10.4) fL Sodium 141 (136-145) mmol/L Potassium 4.2 (3.5-5.1) mmol/L Chloride 107 (98-107) mmol/L Carbon Dioxide 27 (21-32) mmol/L Anion Gap 7.0 (3-11) BUN 21 H (7-18) mg/dl Creatinine 1.13 (0.6-1.2) mg/dl Est Cr Clr Drug Dosing 61.3 ml/min Est GFR ( Amer) 57.4 Est GFR (Non-Af Amer) 49.6 BUN/Creatinine Ratio 18.5 (10-20) Glucose 212 H (70-99) mg/dl POC Glucose 251 H (70-99) mg/dl Lactate (0.4-2.0) mmol/L Calcium 7.9 L (8.5-10.1) mg/dl Magnesium (1.8-2.4) mg/dl Total Bilirubin 0.4 (0.2-1) mg/dl AST 20 (15-37) U/L ALT 17 (12-78) U/L Alkaline Phosphatase 66 (45-117) U/L Total Protein 5.5 L (6.4-8.2) gm/dl Albumin 2.3 L (3.4-5.0) gm/dl Globulin 3.2 (2.5-4.0) gm/dl Albumin/Globulin Ratio 0.7 L (0.9-2) Procalcitonin (0-0.5) ng/ml Nasal Screen MRSA (PCR) (Negative) 10/21/19 10/20/19 10/20/19 Range/Units 00:46 Unknown 20:55 WBC (4.8-10.8) K/uL RBC (4.2-5.4) M/uL Hgb (12.0-16.0) g/dL Hct (37-47) % MCV (80-100) fL MCH (25-34) pg MCHC (32-36) g/dL RDW Std Deviation (36.4-46.3) fL RDW Coeff of Juani (11.5-14.5) % Plt Count (130-400) K/uL MPV (7.4-10.4) fL Sodium (136-145) mmol/L Potassium (3.5-5.1) mmol/L Chloride (98-107) mmol/L Carbon Dioxide (21-32) mmol/L Anion Gap (3-11) BUN (7-18) mg/dl Creatinine (0.6-1.2) mg/dl Est Cr Clr Drug Dosing ml/min Est GFR ( Amer) Est GFR (Non-Af Amer) BUN/Creatinine Ratio (10-20) Glucose (70-99) mg/dl POC Glucose 186 H 215 H (70-99) mg/dl Lactate (0.4-2.0) mmol/L Calcium (8.5-10.1) mg/dl Magnesium (1.8-2.4) mg/dl Total Bilirubin (0.2-1) mg/dl AST (15-37) U/L ALT (12-78) U/L Alkaline Phosphatase (45-117) U/L Total Protein (6.4-8.2) gm/dl Albumin (3.4-5.0) gm/dl Globulin (2.5-4.0) gm/dl Albumin/Globulin Ratio (0.9-2) Procalcitonin (0-0.5) ng/ml Nasal Screen MRSA (PCR) Negative (Negative) 10/20/19 10/20/19 10/20/19 Range/Units 18:02 16:29 16:25 WBC (4.8-10.8) K/uL RBC (4.2-5.4) M/uL Hgb (12.0-16.0) g/dL Hct (37-47) % MCV (80-100) fL MCH (25-34) pg MCHC (32-36) g/dL RDW Std Deviation (36.4-46.3) fL RDW Coeff of Juani (11.5-14.5) % Plt Count (130-400) K/uL MPV (7.4-10.4) fL Sodium 136 (136-145) mmol/L Potassium 4.2 (3.5-5.1) mmol/L Chloride 104 (98-107) mmol/L Carbon Dioxide 23 (21-32) mmol/L Anion Gap 9.0 (3-11) BUN 19 H (7-18) mg/dl Creatinine 1.41 H (0.6-1.2) mg/dl Est Cr Clr Drug Dosing 49.2 ml/min Est GFR ( Amer) 43.9 Est GFR (Non-Af Amer) 37.9 BUN/Creatinine Ratio 13.1 (10-20) Glucose 300 H (70-99) mg/dl POC Glucose 312 H* 323 H* (70-99) mg/dl Lactate (0.4-2.0) mmol/L Calcium 8.2 L (8.5-10.1) mg/dl Magnesium 1.9 (1.8-2.4) mg/dl Total Bilirubin (0.2-1) mg/dl AST (15-37) U/L ALT (12-78) U/L Alkaline Phosphatase (45-117) U/L Total Protein (6.4-8.2) gm/dl Albumin (3.4-5.0) gm/dl Globulin (2.5-4.0) gm/dl Albumin/Globulin Ratio (0.9-2) Procalcitonin (0-0.5) ng/ml Nasal Screen MRSA (PCR) (Negative) 10/20/19 10/20/19 Range/Units 13:05 12:45 WBC (4.8-10.8) K/uL RBC (4.2-5.4) M/uL Hgb (12.0-16.0) g/dL Hct (37-47) % MCV (80-100) fL MCH (25-34) pg MCHC (32-36) g/dL RDW Std Deviation (36.4-46.3) fL RDW Coeff of Juani (11.5-14.5) % Plt Count (130-400) K/uL MPV (7.4-10.4) fL Sodium (136-145) mmol/L Potassium (3.5-5.1) mmol/L Chloride (98-107) mmol/L Carbon Dioxide (21-32) mmol/L Anion Gap (3-11) BUN (7-18) mg/dl Creatinine (0.6-1.2) mg/dl Est Cr Clr Drug Dosing ml/min Est GFR ( Amer) Est GFR (Non-Af Amer) BUN/Creatinine Ratio (10-20) Glucose (70-99) mg/dl POC Glucose 294 H (70-99) mg/dl Lactate 3.2 H* (0.4-2.0) mmol/L Calcium (8.5-10.1) mg/dl Magnesium (1.8-2.4) mg/dl Total Bilirubin (0.2-1) mg/dl AST (15-37) U/L ALT (12-78) U/L Alkaline Phosphatase (45-117) U/L Total Protein (6.4-8.2) gm/dl Albumin (3.4-5.0) gm/dl Globulin (2.5-4.0) gm/dl Albumin/Globulin Ratio (0.9-2) Procalcitonin (0-0.5) ng/ml Nasal Screen MRSA (PCR) (Negative) Coding Level of Care Code 85284 Subseq Hosp Care Lvl 3 Diagnoses Admitted to intensive care unit Z78.9
--- NOTE | 2019-10-21 17:16 | Hospitalist Progress Note ---
Date of Service October 21, 2019 Assessment & Plan (1) Severe sepsis: Severe sepsis secondary to obstructed right-sided ureteric stone, complicated sepsis, gram-negative bacteremia Still has leukocytosis but improving from yesterday Continue IV Azactam(multiple antibiotic allergy: Including Keflex, cephalosporin(anaphylactic reaction), Cipro) [facility] ID consult requested Complicated UTI with right-sided obstructed kidney stone: Status post cystoscopy, urethral dilation and aspiration, retrograde pyelogram and right ureteric stent placed yesterday 10/20/19 Repeat blood cultures from 10/20/19 still growing GNR Will repeat tomorrow Lactic acidosis: Due to severe sepsis, gram-negative bacteremia, complicated UTI with obstructed ureteric stone Patient given IV fluid bolus, continue NSS at 125 mL/h Resolved Hypotension: Due to severe sepsis, Given IV fluid resuscitation Patient was on chronic p.o. prednisone for rheumatoid arthritis Got stress dose iv hydrocortisone Has been switched back to po prednisone by Code Official Currently normotensive Acute renal failure on CKD stage III: Due to hypotension, severe sepsis Continue IV fluids Continue to hold torsemide ALONA resolving. Cr is 1.13 Continue to monitor Recently diagnosed hepatocellular carcinoma: Biopsy-proven hepatocellular carcinoma in [facility] Scheduled for outpatient IR guided radiotherapy CODE STATUS: Now DNR after Goals of care discussion with Dr Hill DVT prophylaxis: SCD and teds, avoid anticoagulation as patient continued to have hematuria Disposition: Patient currently stable to be moved off ICU Transfer to PCU Admission and Anticipated Discharge Date Admission Date: October 20, 2019 Subjective Patient seen and examined. Reports anorexia, some nausea, lower abd pain and left flank pain Reports she is feeling mildly better compared to yesterday but will like better pain control No fevers, chills, vomiting No diarrhea Physical Exam Constitutional: + well hydrated and + morbidly obese; no acute distress Blind Eyes: Blind ENMT: external ear and nose normal, oropharynx normal Respiratory: normal respiratory effort, lungs clear to auscultation Cardiovascular: Regular rate, regular rhythm, S1-2, no pedal edema Gastrointestinal (Abdomen): normal bowel sounds, soft, nontender, no hepatosplenomegaly Neurologic: AOX3, blind, no focal deficits Genitourinary: + CVA tenderness (Right) Bloody urine in matute Results & Data Results & Data ([facility]) Vital Signs (Past 12 Hours) Vital Signs Temp Pulse Resp BP Pulse Ox 10/21/19 15:14 82 14 105/74 95 10/21/19 14:16 72 25 H 124/82 98 10/21/19 13:14 74 20 127/63 94 10/21/19 12:15 148 H 27 H 99/66 L 98 10/21/19 11:13 80 20 156/70 H 96 10/21/19 10:13 80 19 144/75 H 95 10/21/19 09:13 84 25 H 140/63 94 10/21/19 08:13 36.8 C 85 19 149/73 H 93 10/21/19 07:13 71 12 133/65 94 10/21/19 06:00 71 13 95 10/21/19 05:21 81 16 95 Laboratory Results Laboratory Results - last 24 hr 10/20/19 10/20/19 10/20/19 16:25 18:02 20:55 WBC RBC Hgb Hct MCV MCH MCHC RDW Std Deviation RDW Coeff of Juani Plt Count MPV Sodium 136 Potassium 4.2 Chloride 104 Carbon Dioxide 23 Anion Gap 9.0 BUN 19 H Creatinine 1.41 H Est Cr Clr Drug Dosing 49.2 Est GFR ( Amer) 43.9 Est GFR (Non-Af Amer) 37.9 BUN/Creatinine Ratio 13.1 Glucose 300 H POC Glucose 323 H* 215 H Lactate Calcium 8.2 L Magnesium 1.9 Total Bilirubin AST ALT Alkaline Phosphatase Total Protein Albumin Globulin Albumin/Globulin Ratio Procalcitonin 10/21/19 10/21/19 10/21/19 00:46 04:09 04:09 WBC 27.09 H D RBC 3.25 L Hgb 10.0 L Hct 30.9 L MCV 95.1 MCH 30.8 MCHC 32.4 RDW Std Deviation 49.4 H RDW Coeff of Juani 14.4 Plt Count 105 L MPV 10.6 H Sodium 141 Potassium 4.2 Chloride 107 Carbon Dioxide 27 Anion Gap 7.0 BUN 21 H Creatinine 1.13 Est Cr Clr Drug Dosing 61.3 Est GFR ( Amer) 57.4 Est GFR (Non-Af Amer) 49.6 BUN/Creatinine Ratio 18.5 Glucose 212 H POC Glucose 186 H Lactate Calcium 7.9 L Magnesium Total Bilirubin 0.4 AST 20 ALT 17 Alkaline Phosphatase 66 Total Protein 5.5 L Albumin 2.3 L Globulin 3.2 Albumin/Globulin Ratio 0.7 L Procalcitonin 10/21/19 10/21/19 10/21/19 07:24 08:33 08:33 WBC RBC Hgb Hct MCV MCH MCHC RDW Std Deviation RDW Coeff of Juani Plt Count MPV Sodium Potassium Chloride Carbon Dioxide Anion Gap BUN Creatinine Est Cr Clr Drug Dosing Est GFR ( Amer) Est GFR (Non-Af Amer) BUN/Creatinine Ratio Glucose POC Glucose 251 H Lactate 2.0 Calcium Magnesium Total Bilirubin AST ALT Alkaline Phosphatase Total Protein Albumin Globulin Albumin/Globulin Ratio Procalcitonin 36.48 H 10/21/19 10/21/19 11:12 16:05 WBC RBC Hgb Hct MCV MCH MCHC RDW Std Deviation RDW Coeff of Juani Plt Count MPV Sodium Potassium Chloride Carbon Dioxide Anion Gap BUN Creatinine Est Cr Clr Drug Dosing Est GFR ( Amer) Est GFR (Non-Af Amer) BUN/Creatinine Ratio Glucose POC Glucose 250 H 284 H Lactate Calcium Magnesium Total Bilirubin AST ALT Alkaline Phosphatase Total Protein Albumin Globulin Albumin/Globulin Ratio Procalcitonin
[2019-10-21] MEDS: ACETAMINOPHEN 325 MG TAB PO SCH (17:48)
[2019-10-21] MEDS: HEPARIN SODIUM (PORCINE) 7,500 UNITS in SYRINGE 0 ML SQ SCH (20:51)
[2019-10-21] MEDS: ATORVASTATIN 40 MG TAB PO SCH (20:52)
[2019-10-21] MEDS: LATANOPROST 0.005% OP SOLN 2.5 ML BTL OP SCH (20:53)
[2019-10-21] MEDS: CYANOCOBALAMIN 500 MCG TABLET (VITAMIN B-12) PO SCH (20:54)
[2019-10-21] MEDS: OXYCODONE HCL IR 5 MG TAB (IMMEDIATE RELEASE) PO PRN (21:56)
[2019-10-22] MEDS: NORMOSOL-R 1,000 ML IV SCH ×2 (00:40→08:52)
[2019-10-22] MEDS: ACETAMINOPHEN 325 MG TAB PO SCH ×4 (00:41→17:25)
[2019-10-22] MEDS: INSULIN ASPART 100 UNITS/ML 3 ML PEN SC SCH ×6 (00:48→22:12)
[2019-10-22] MEDS: HYDROmorphone INJ 0.5 MG/0.5 ML SYR IV PRN ×2 (03:22→08:54)
[2019-10-22] MEDS: LEVOTHYROXINE SODIUM 125 MCG TABLET PO SCH (06:07)
[2019-10-22] MEDS: AZTREONAM 2,000 MG in DEXTROSE 5% 100 ML IV SCH ×2 (06:07→14:19)
[2019-10-22] MEDS: HEPARIN SODIUM (PORCINE) 7,500 UNITS in SYRINGE 0 ML SQ SCH ×3 (06:07→22:12)
[2019-10-22] MEDS: INSULIN HUMAN NPH SC SCH ×2 (08:50→17:29)
[2019-10-22] MEDS: FOLIC ACID 1 MG TAB PO SCH (08:51)
[2019-10-22] MEDS: PHENAZOPYRIDINE HCL 100 MG TAB PO SCH ×3 (08:51→21:07)
[2019-10-22] MEDS: predniSONE 5 MG TAB PO SCH (08:51)
[2019-10-22] MEDS: PANCREAZE (LIPASE 10,500U) CAP PO SCH ×3 (08:51→17:22)
[2019-10-22] MEDS: PANTOprazole 40 MG TAB PO SCH (08:51)
[2019-10-22] MEDS: ASCORBIC ACID 500 MG TAB PO SCH (08:52)
[2019-10-22] MEDS: OXYCODONE HCL IR 5 MG TAB (IMMEDIATE RELEASE) PO PRN (08:53)
[2019-10-22] MEDS: LORazepam 0.5 MG TAB PO PRN (08:54)
--- NOTE | 2019-10-22 09:20 | Hospitalist Progress Note ---
Date of Service October 22, 2019 Assessment & Plan (1) Severe sepsis: Severe sepsis secondary to obstructed right-sided ureteric stone, complicated sepsis, gram-negative bacteremia Leukocytosis has improved Fever chills vitals stable patient is transferred to telemetry floor On IV Azactam(multiple antibiotic allergy: Including Keflex, cephalosporin(anaphylactic reaction), Cipro) [facility] ID consult requested, appreciate input Complicated UTI with right-sided obstructed kidney stone: Status post cystoscopy, urethral dilation and aspiration, retrograde pyelogram and right ureteric stent placed yesterday 10/20/19 Repeat blood cultures from 10/20/19 : Negative bacilli Ordered for repeat blood culture Shingles: Developed vesicular painful rash on right lumbar and buttock region since yesterday Noted to have shingles rash, Started on Valtrex Lactic acidosis: Due to severe sepsis, gram-negative bacteremia, complicated UTI with obstructed ureteric stone Resolved, level normalized with IV fluids Hypotension: Resolved blood pressure stable now Due to severe sepsis, Given IV fluid resuscitation Patient was on chronic p.o. prednisone for rheumatoid arthritis Got stress dose iv hydrocortisone Has been switched back to po prednisone by Patient Services Coordinator Currently normotensive Acute renal failure on CKD stage III: Due to hypotension, severe sepsis Given IV fluids Continue to hold torsemide ALONA resolved, renal function back to baseline Continue to monitor Recently diagnosed hepatocellular carcinoma: [facility] Scheduled for outpatient IR guided radiotherapy CODE STATUS: DNR DNI DVT prophylaxis: SCD and teds, avoid anticoagulation as patient continued to have hematuria Disposition: Monitor in telemetry, order for PT OT evaluation Admission and Anticipated Discharge Date Admission Date: October 20, 2019 Subjective Patient sitting up on chair, legally blind Says that she feels better than yesterday however No fever or chills Developed painful rash on her buttock and right flank area, Having burning sensation Vesicular rash noted on patient's lumbar region, suggestive of shingles Ordered Lidoderm patch for pain, started on p.o. Valtrex Ordered for contact isolation Review of Systems Review of Systems: All systems reviewed & are unremarkable except as noted in HPI & below Physical Exam Constitutional: WD/WN, vitals as above + morbidly obese; no acute distress Eyes: no scleral abnormality ENMT: external ear and nose normal, oropharynx normal Neck: normal visual inspection Respiratory: normal respiratory effort, lungs clear to auscultation Cardiovascular: RRR, no murmur, no edema Gastrointestinal (Abdomen): Percussion/Palpation: abdomen soft; abdomen nontender (Right flank pain,) Skin: + rash (Saccular rash on right buttock right lumbar region following dermatome) Neurologic: no focal motor deficits Speech / Cognition: normal speech Motor/Sensory: no tremor Psychiatric: Orientation: alert and oriented x 3 Affect: + anxious affect (Very labile mood, tearful while stating her recent dx with HCC, ) Results & Data Results & Data ([facility]) Vital Signs (Past 12 Hours) Vital Signs Temp Pulse Pulse Resp BP Pulse Ox 10/22/19 07:59 36.8 C 83 20 132/55 L 94 10/22/19 03:31 36.3 C L 81 18 110/72 95 10/21/19 23:21 75 10/21/19 23:20 36.5 C 73 18 90/57 L 96 10/21/19 23:00 78 18 94
[2019-10-22 09:33] LABS: Basophils # (auto) 0.01 K/uL (0-0.2); Eosinophils % (auto) 0.5 %; Hematocrit (blood only) 31.4 % (37-47); Hemoglobin 10.1 g/dL (12.0-16.0); Immature Granulocytes # (auto) 0.14 K/uL (0.00-0.02); Immature Granulocytes % (auto) 0.6 %; Lymphocytes # (auto) 0.93 K/uL (1.2-3.4); Lymphocytes % (auto) 4.3 %; Mean Corpuscular Hgb Conc 32.2 g/dL (32-36); Mean Corpuscular Volume 96.3 fL (80-100); Mean Platelet Volume 10.8 fL (7.4-10.4); Monocytes # (auto) 0.97 K/uL (0.11-0.59); Monocytes % (auto) 4.5 %; Neutrophils # (auto) 19.63 K/uL (1.4-6.5); Neutrophils % (auto) 90.1 %; Platelet Count 112 K/uL (130-400); RDW Coefficient of Variation 14.5 % (11.5-14.5); RDW Standard Deviation 50.5 fL (36.4-46.3); Red Blood Count 3.26 M/uL (4.2-5.4); White Blood Count 21.78 K/uL (4.8-10.8)
[2019-10-22] MEDS: FLUTICASONE PROPIONATE NA SPR 16 GM BTL SCH (09:43)
[2019-10-22] MEDS: TIMOLOL MALEATE 0.5% OP SOLN 5 ML BTL OP SCH ×2 (09:44→21:06)
[2019-10-22] MEDS: BRIMONIDINE TARTRATE 0.2% 5ML OPL SCH ×2 (09:44→21:09)
[2019-10-22] MEDS: BACITRACIN/POLYMYX B OPH OINT 3.5 GM TUBE OPR SCH ×4 (09:45→21:08)
[2019-10-22] MEDS: ERYTHROMYCIN OP OINT 5 MG/GM 3.5 GM TUBE OP SCH ×4 (09:45→21:09)
[2019-10-22 10:01] LABS: BUN Creatinine Ratio 24.9 (10-20); Calcium 7.9 mg/dl (8.5-10.1); Creatinine Clr Calc Pharmacy 89.4 ml/min; Est GFR (African American) 89.9; Est GFR (Non-African American) 77.6; Magnesium 2.2 mg/dl (1.8-2.4); Phosphorus 1.5 mg/dl (2.5-4.9); Potassium 3.2 mmol/L (3.5-5.1)
[2019-10-22] MEDS ORDERED: POTASSIUM PHOS 3 MMOL/1 ML INFUSION IV STA (10:13)
[2019-10-22] MEDS ORDERED: POTASSIUM PHOSPHATE 9 MMOL in SODIUM CHLORIDE 0.9% 250 ML IV ONE (10:45)
[2019-10-22] MEDS ORDERED: POTASSIUM CHLORIDE 20 MEQ TABCR PO ONE (10:45)
[2019-10-22] MEDS: VALACYCLOVIR HCL 500 MG TABLET PO SCH ×2 (10:56→21:04)
[2019-10-22] MEDS: LIDOCAINE 5% 1 PATCH TD SCH (10:57)
[2019-10-22] MEDS: MULTIVITAMIN TAB PO SCH (10:59)
[2019-10-22] MEDS: FERROUS SULFATE 325 MG TAB PO SCH (11:01)
[2019-10-22] MEDS: POT PHOSPHATE MONOBASIC W/ SOD TAB PO SCH ×4 (11:44→21:08)
--- NOTE | 2019-10-22 14:15 | Electrocardiogram Report ---
Test Reason : Blood Pressure : / mmHG Vent. Rate : 075 BPM Atrial Rate : 075 BPM P-R Int : 190 ms QRS Dur : 110 ms QT Int : 398 ms P-R-T Axes : 071 050 076 degrees QTc Int : 444 ms Normal sinus rhythm Low voltage QRS Cannot rule out Anterior infarct (cited on or before 19-OCT-2019) Abnormal ECG When compared with ECG of 19-OCT-2019 21:39, QT has shortened Confirmed by Bhanu Morley ([id number]) on 10/22/2019 2:15:29 PM Referred By: REFERRED SELF Confirmed By:Alfonso Morley
--- NOTE | 2019-10-22 14:54 | Pharmacy Report ---
Pharmacy Glycemic Short Note 2 - Date of Service October 22, 2019 - Glycemic Short BSG Results (Last 24 hours): 10/21/19 10/21/19 10/22/19 16:05 20:09 00:45 Glucose POC Glucose 284 H 250 H 157 H 10/22/19 10/22/19 10/22/19 03:27 07:21 09:20 Glucose 140 H POC Glucose 118 H 107 H 10/22/19 11:31 Glucose POC Glucose 139 H OUTPATIENT ANTIDIABETIC REGIMEN: * Novolin 70/30 - 85 BID with meals + sliding scale up to 100 units/day * A1c = 8.0 % 10/20/19 Risk Factors for Insulin Resistance: * Steroids: Hydrocortisone 100mg IV Q8H * Infection: gram negative bacteremia, IV Azactam * IVF: Normosol * Recent Surgery: POD 1 for obstructed right ureteral stone. * Diet: Type 2 DM ASSESSMENT: 10/22/19 * Patient received total of 242 units of insulin yesterday, of which 120 were basal insulin * Steroids changed to prednisone 5 mg daily this AM - anticipate insulin requirements to reduce significantly * Scaled back on NPH dosing this AM and also loosened CF/CR 10/21/19 * Patient received 199 units of insulin yesterday. * Patient remains on high dose steroids with elevated blood sugar, increase NPH and tighten CF further. 10/20/19 * 69-year-old female with gram-negative bacteremia secondary to pyelonephritis secondary to obstructed right ureteral stone, POD 0, transferred to ICU and started on high dose IV steroids. * Outpatient regimen is premixed basal/prandial insulin of Novolin 70/30 mix insulin. * Pre-mixed insulin is difficult to titrate since it is already in a fixed distribution of basal:prandial insulin. Continuing pre-mixed insulin for admission typically lead to hypoglycemia d/t changing PO status but rapid acting insulin is unable to be held. * Home regimen will be held for admission per pharmacy consult. Will utilize recommended regimen of SQ basal bolus insulin regimen with NPH (for easy transition back to Novolin) + NovoLog (CF+CR) * Give additional NPH dose now with first dose of IV hydrocortisone and then increase dose and tighten CF and CR for steroid induced hyperglycemia. * ADA & AACE recommend a goal blood sugar range 140-180 mg/dl for the majority of critically ill & non-critically ill patients. However, more stringent ta rgets may be selected in individual cases. Will utilize more stringent goal of 110-140mg/dl based on patient age & comorbidities. Additionally, tighter glycemic control is warranted to facilitate wound/infection healing. PLAN FOR INPATIENT GLYCEMIC CONTROL: * Basal insulin - decrease * NPH 25-40 units BIDM see emar for more details * Bolus insulin - loosen * NovoLog per scale ACHS or Q6hrs while NPO * Goal Range: Low 110 mg/dL - High 140 mg/dL * TIGHTEN: Correction Factor: 15 mg/dL/unit * TIGHTEN: Nutritional / Prandial insulin per carb ratio of 1 unit per 4 grams CHO consumed PLAN FOR DISCHARGE: * A1c 8.0%, right at goal for patient's age and comorbidities. * Patient on mixed insulin, therefore difficult to make adjustments in insulin regimen. * Encourage better glycemic control through lifestyle modifications including consistent carbohydrate intake and physical activity.
[2019-10-22] MEDS ORDERED: OXYCODONE/ACETAMINOPHEN 5mg/325mg TAB PO PRN (15:49)
[2019-10-22] MEDS: OXYCODONE/ACETAMINOPHEN 5mg/325mg TAB PO PRN (16:05)
[2019-10-22 16:55] LABS: Phosphorus 2.1 mg/dl (2.5-4.9); Potassium 3.9 mmol/L (3.5-5.1)
[2019-10-22] MEDS: CIPROFLOXACIN / D5W 400 MG/200 ML BAG IV SCH (19:13)
[2019-10-22] MEDS: CYANOCOBALAMIN 500 MCG TABLET (VITAMIN B-12) PO SCH (21:05)
[2019-10-22] MEDS: LATANOPROST 0.005% OP SOLN 2.5 ML BTL OP SCH (21:07)
[2019-10-22] MEDS: ATORVASTATIN 40 MG TAB PO SCH (21:09)
[2019-10-23] MEDS ORDERED: INSULIN ASPART 100 UNITS/ML 3 ML PEN SC SCH
[2019-10-23] MEDS: OXYCODONE/ACETAMINOPHEN 5mg/325mg TAB PO PRN ×2 (00:34→11:49)
[2019-10-23] MEDS: ACETAMINOPHEN 325 MG TAB PO SCH ×5 (00:35→23:48)
[2019-10-23] MEDS: HEPARIN SODIUM (PORCINE) 7,500 UNITS in SYRINGE 0 ML SQ SCH ×3 (05:50→21:46)
[2019-10-23] MEDS: LEVOTHYROXINE SODIUM 125 MCG TABLET PO SCH (05:52)
[2019-10-23] MEDS: CIPROFLOXACIN / D5W 400 MG/200 ML BAG IV SCH ×2 (05:57→17:54)
[2019-10-23 06:58] LABS: Basophils # (auto) 0.03 K/uL (0-0.2); Basophils % (auto) 0.2 %; Eosinophils # (auto) 0.24 K/uL (0-0.5); Eosinophils % (auto) 1.7 %; Hematocrit (blood only) 29.9 % (37-47); Hemoglobin 9.6 g/dL (12.0-16.0); Immature Granulocytes # (auto) 0.18 K/uL (0.00-0.02); Immature Granulocytes % (auto) 1.3 %; Lymphocytes # (auto) 1.53 K/uL (1.2-3.4); Lymphocytes % (auto) 10.6 %; Mean Corpuscular Hemoglobin 30.4 pg (25-34); Mean Corpuscular Hgb Conc 32.1 g/dL (32-36); Mean Corpuscular Volume 94.6 fL (80-100); Mean Platelet Volume 10.3 fL (7.4-10.4); Monocytes # (auto) 1.06 K/uL (0.11-0.59); Monocytes % (auto) 7.4 %; Neutrophils # (auto) 11.34 K/uL (1.4-6.5); Neutrophils % (auto) 78.8 %; Nucleated RBC # (auto) 0.03 K/uL (0-0); Nucleated RBC % (auto) 0.2 %; Platelet Count 110 K/uL (130-400); RDW Coefficient of Variation 14.4 % (11.5-14.5); RDW Standard Deviation 49.6 fL (36.4-46.3); Red Blood Count 3.16 M/uL (4.2-5.4); White Blood Count 14.38 K/uL (4.8-10.8)
[2019-10-23 07:32] LABS: Magnesium 2.1 mg/dl (1.8-2.4); Phosphorus 2.1 mg/dl (2.5-4.9)
[2019-10-23] MEDS: FLUTICASONE PROPIONATE NA SPR 16 GM BTL SCH (08:13)
[2019-10-23] MEDS: LIDOCAINE 5% 1 PATCH TD SCH (08:13)
[2019-10-23] MEDS: INSULIN ASPART 100 UNITS/ML 3 ML PEN SC SCH ×4 (08:13→21:45)
[2019-10-23] MEDS: INSULIN HUMAN NPH SC SCH ×2 (08:14→17:55)
[2019-10-23] MEDS: VALACYCLOVIR HCL 500 MG TABLET PO SCH ×2 (08:16→21:07)
[2019-10-23] MEDS: PANCREAZE (LIPASE 10,500U) CAP PO SCH ×3 (08:16→17:52)
[2019-10-23] MEDS: PHENAZOPYRIDINE HCL 100 MG TAB PO SCH ×3 (08:16→21:07)
[2019-10-23] MEDS: FOLIC ACID 1 MG TAB PO SCH (08:17)
[2019-10-23] MEDS: POT PHOSPHATE MONOBASIC W/ SOD TAB PO SCH ×4 (08:17→21:07)
[2019-10-23] MEDS: predniSONE 5 MG TAB PO SCH (08:17)
[2019-10-23] MEDS: ASCORBIC ACID 500 MG TAB PO SCH (08:17)
[2019-10-23] MEDS: PANTOprazole 40 MG TAB PO SCH (08:17)
[2019-10-23] MEDS: ERYTHROMYCIN OP OINT 5 MG/GM 3.5 GM TUBE OP SCH ×4 (08:18→21:05)
[2019-10-23] MEDS: BACITRACIN/POLYMYX B OPH OINT 3.5 GM TUBE OPR SCH ×4 (08:18→21:10)
[2019-10-23] MEDS: TIMOLOL MALEATE 0.5% OP SOLN 5 ML BTL OP SCH ×2 (08:18→21:09)
[2019-10-23] MEDS: BRIMONIDINE TARTRATE 0.2% 5ML OPL SCH ×2 (08:18→21:05)
[2019-10-23] MEDS: FERROUS SULFATE 325 MG TAB PO SCH (11:49)
[2019-10-23] MEDS: MULTIVITAMIN TAB PO SCH (11:49)
[2019-10-23] MEDS ORDERED: DiphenhydrAMINE 2%/ZINC 0.1% CREAM 28GM TUBE EXT PRN (18:13)
--- NOTE | 2019-10-23 18:21 | Hospitalist Progress Note ---
Date of Service October 23, 2019 Assessment & Plan (1) Severe sepsis: Severe sepsis secondary to obstructed right-sided ureteric stone, complicated sepsis, gram-negative bacteremia/E. coli Leukocytosis has improved 41k-27k-14k today Has not had any fever or chills [facility] ID consult requested, appreciate input Blood culture growing E. coli pansensitive Started on IV Cipro as per recommendation will need total 14 days of treatment started from the day of ureteric stent placement Cipro is listed at allergy causing nausea Added on IV Cipro has been tolerating well change to p.o. ciprofloxacin we will continue to monitor Complicated UTI with right-sided obstructed kidney stone: Urine culture: E. coli treatment as outlined above Status post cystoscopy, urethral dilation and aspiration, retrograde pyelogram and right ureteric stent placed yesterday 10/20/19 Repeat blood cultures from 10/20/19 : E. coli pansensitive Ordered for repeat blood culture Patient has Red catheter, will need outpatient follow-up with urology for right ureteric stone management /ureteric stent removal/catheter management Shingles: Developed vesicular painful rash on right lumbar and buttock region during this admission Noted to have shingles rash, Started on Valtrex will need 7-10 days of treatment She developed allergic distress with Lidoderm patch, discontinued added to allergy list Percocet PRN ordered, patient reports improvement of symptoms Lactic acidosis: Resolved with IV fluids Due to severe sepsis, gram-negative bacteremia, complicated UTI with obstructed ureteric stone Resolved, level normalized with IV fluids Hypotension: Resolved blood pressure stable now Due to severe sepsis, Given IV fluid resuscitation Patient was on chronic p.o. prednisone for rheumatoid arthritis Got stress dose iv hydrocortisone Has been switched back to po prednisone by Manager Private Currently normotensive Acute renal failure on CKD stage III: Due to hypotension, severe sepsis Given IV fluids Continue to hold torsemide [place] resolved, renal function back to baseline Continue to monitor Recently diagnosed hepatocellular carcinoma: Biopsy-proven hepatocellular carcinoma in [facility] Scheduled for outpatient IR guided radiotherapy CODE STATUS: DNR DNI DVT prophylaxis: SCD and teds, avoid anticoagulation as patient continued to have hematuria Disposition: Monitor in telemetry, order for PT OT evaluation Expected to be discharged home when medically stable And will need urology follow-up prior to discharge from hospital Admission and Anticipated Discharge Date Admission Date: October 20, 2019 Subjective Patient legally blind, Sitting up in chair, in good spirits today, states that she is finally starting to feel better No abdominal pain, no flank pain, no fever or chills Red continues to drain orange team(patient is on Pyridium) urine with debris's noted on the tube Continues to have burning pain and discomfort on the buttock and left flank area from the shingles-symptoms improved Had allergic rash/blisters secondary to Lidoderm patch on lumbar area Lidoderm patch discontinued added to the allergy list Physical Exam Constitutional: WD/WN, vitals as above + morbidly obese; no acute distress Eyes: no scleral abnormality ENMT: external ear and nose normal, oropharynx normal Neck: normal visual inspection Respiratory: normal respiratory effort, lungs clear to auscultation Cardiovascular: RRR, no murmur, no edema Gastrointestinal (Abdomen): Percussion/Palpation: abdomen soft; abdomen nontender (Right flank pain,) Skin: + rash (Vesicular rash on right buttock right lumbar region following dermatome) Neurologic: no focal motor deficits Speech / Cognition: normal speech Motor/Sensory: no tremor Psychiatric: Orientation: alert and oriented x 3 Affect: + anxious affect (Very labile mood, tearful while stating her recent dx with HCC, ) Results & Data Results & Data ([facility]) Vital Signs (Past 12 Hours) Vital Signs Temp Pulse Pulse Resp BP Pulse Ox 10/23/19 16:00 63 10/23/19 15:41 36.8 C 89 18 144/63 H 96 10/23/19 12:24 36.8 C 84 16 135/57 L 97 10/23/19 08:05 36.9 C 74 18 130/63 96 10/23/19 07:18 63
[2019-10-23] MEDS: CIPROFLOXACIN 500 MG TAB PO SCH (21:04)
[2019-10-23] MEDS: ATORVASTATIN 40 MG TAB PO SCH (21:05)
[2019-10-23] MEDS: LATANOPROST 0.005% OP SOLN 2.5 ML BTL OP SCH (21:08)
[2019-10-23] MEDS: CYANOCOBALAMIN 500 MCG TABLET (VITAMIN B-12) PO SCH (21:08)
[2019-10-24] MEDS: OXYCODONE/ACETAMINOPHEN 5mg/325mg TAB PO PRN ×2 (01:21→09:34)
[2019-10-24] MEDS: ACETAMINOPHEN 325 MG TAB PO SCH ×4 (05:28→23:33)
[2019-10-24] MEDS: LEVOTHYROXINE SODIUM 125 MCG TABLET PO SCH (05:29)
[2019-10-24] MEDS: HEPARIN SODIUM (PORCINE) 7,500 UNITS in SYRINGE 0 ML SQ SCH ×3 (05:35→21:30)
[2019-10-24 07:20] LABS: Basophils # (auto) 0.03 K/uL (0-0.2); Basophils % (auto) 0.2 %; Eosinophils # (auto) 0.18 K/uL (0-0.5); Eosinophils % (auto) 1.3 %; Hematocrit (blood only) 30.5 % (37-47); Immature Granulocytes # (auto) 0.51 K/uL (0.00-0.02); Immature Granulocytes % (auto) 3.8 %; Lymphocytes # (auto) 1.89 K/uL (1.2-3.4); Lymphocytes % (auto) 14.1 %; Mean Corpuscular Hemoglobin 30.9 pg (25-34); Mean Corpuscular Hgb Conc 32.8 g/dL (32-36); Mean Corpuscular Volume 94.1 fL (80-100); Mean Platelet Volume 10.2 fL (7.4-10.4); Monocytes # (auto) 1.16 K/uL (0.11-0.59); Monocytes % (auto) 8.6 %; Neutrophils # (auto) 9.67 K/uL (1.4-6.5); Nucleated RBC # (auto) 0.08 K/uL (0-0); Nucleated RBC % (auto) 0.6 %; Platelet Count 147 K/uL (130-400); RDW Coefficient of Variation 14.3 % (11.5-14.5); RDW Standard Deviation 48.8 fL (36.4-46.3); Red Blood Count 3.24 M/uL (4.2-5.4); White Blood Count 13.44 K/uL (4.8-10.8)
[2019-10-24] MEDS: MULTIVITAMIN TAB PO SCH (07:56)
[2019-10-24] MEDS: predniSONE 5 MG TAB PO SCH (07:56)
[2019-10-24] MEDS: POT PHOSPHATE MONOBASIC W/ SOD TAB PO SCH ×4 (07:56→19:56)
[2019-10-24] MEDS: FOLIC ACID 1 MG TAB PO SCH (07:56)
[2019-10-24] MEDS: CIPROFLOXACIN 500 MG TAB PO SCH ×2 (07:57→19:55)
[2019-10-24] MEDS: FLUTICASONE PROPIONATE NA SPR 16 GM BTL SCH (07:57)
[2019-10-24] MEDS: VALACYCLOVIR HCL 500 MG TABLET PO SCH ×2 (07:57→19:54)
[2019-10-24] MEDS: PANTOprazole 40 MG TAB PO SCH (07:57)
[2019-10-24] MEDS: ASCORBIC ACID 500 MG TAB PO SCH (07:58)
[2019-10-24] MEDS: PANCREAZE (LIPASE 10,500U) CAP PO SCH ×3 (07:58→17:37)
[2019-10-24] MEDS: ERYTHROMYCIN OP OINT 5 MG/GM 3.5 GM TUBE OP SCH ×4 (07:59→19:59)
[2019-10-24] MEDS: BRIMONIDINE TARTRATE 0.2% 5ML OPL SCH ×2 (07:59→19:59)
[2019-10-24 08:00] LABS: BUN Creatinine Ratio 17.8 (10-20); Est GFR (African American) 92.8; Magnesium 1.9 mg/dl (1.8-2.4); Phosphorus 2.7 mg/dl (2.5-4.9); Potassium 3.3 mmol/L (3.5-5.1)
[2019-10-24] MEDS: TIMOLOL MALEATE 0.5% OP SOLN 5 ML BTL OP SCH ×2 (08:00→19:59)
[2019-10-24] MEDS: PHENAZOPYRIDINE HCL 100 MG TAB PO SCH ×3 (08:00→19:57)
[2019-10-24] MEDS: BACITRACIN/POLYMYX B OPH OINT 3.5 GM TUBE OPR SCH ×4 (08:00→20:00)
[2019-10-24] MEDS: INSULIN ASPART 100 UNITS/ML 3 ML PEN SC SCH ×4 (08:01→21:30)
[2019-10-24] MEDS: INSULIN HUMAN NPH SC SCH ×2 (08:01→17:07)
[2019-10-24] MEDS ORDERED: POTASSIUM CHLORIDE 20 MEQ TABCR PO STA (08:33)
[2019-10-24] MEDS: OXYCODONE HCL IR 5 MG TAB (IMMEDIATE RELEASE) PO PRN ×2 (12:13→20:12)
[2019-10-24] MEDS: FERROUS SULFATE 325 MG TAB PO SCH (12:13)
--- NOTE | 2019-10-24 15:17 | Pharmacy Report ---
Pharmacy Glycemic Short Note 2 - Date of Service October 24, 2019 - Glycemic Short BSG Results (Last 24 hours): 10/23/19 10/23/19 10/24/19 16:10 20:19 07:03 Glucose 108 H POC Glucose 138 H 187 H 10/24/19 07:51 Glucose POC Glucose 139 H OUTPATIENT ANTIDIABETIC REGIMEN: * Novolin 70/30 - 85 BID with meals + sliding scale up to 100 units/day * A1c = 8.0 % 10/20/19 ASSESSMENT: 10/24/19 * Patient received total of 95 units of insulin yesterday, of which 50 were basal insulin. * Since steroids were changed to Prednisone, patient has required significantly less insulin. * Today fasting BSG was slightly elevated and post-prandial BSG was higher than yesterday. * Adjusted the NPH scale so that patient receives more basal insulin BID. PLAN FOR INPATIENT GLYCEMIC CONTROL: * Basal insulin - adjusted scale so patient can get more * NPH 25-40 units BIDM see emar for more details * Bolus insulin - continued * NovoLog per scale ACHS or Q6hrs while NPO * Goal Range: Low 110 mg/dL - High 140 mg/dL * TIGHTEN: Correction Factor: 15 mg/dL/unit * TIGHTEN: Nutritional / Prandial insulin per carb ratio of 1 unit per 4 grams CHO consumed PLAN FOR DISCHARGE: * A1c 8.0%, right at goal for patient's age and comorbidities. * Patient on mixed insulin, therefore difficult to make adjustments in insulin regimen. * Encourage better glycemic control through lifestyle modifications including consistent carbohydrate intake and physical activity.
--- NOTE | 2019-10-24 19:11 | Hospitalist Progress Note ---
Date of Service October 24, 2019 Assessment & Plan (1) Severe sepsis: Gram Negative bacteremia Complicated UTI with right-sided obstructed kidney stone Severe sepsis secondary to obstructed right-sided ureteric stone, gram-negative bacteremia/E. coli Present on admission with Leukocytosis, elevated lactic acid and UA positive for UTI CT abd/pelvis showed 2 obstructing calculi in the proximal right ureter measuring up to 9 mm. Leukocytosis has improved 41k-27k-13k today Status post cystoscopy, urethral dilation and aspiration, retrograde pyelogram and right ureteric stent placed yesterday 10/20/19 [facility] ID consulted Blood culture growing E. coli pansensitive Repeat blood cultures from 10/20/19 : E. coli pansensitive Repeat blood cx on 10/22/19 showed no growth Started on IV Cipro as per recommendation will need total 14 days of treatment started from the day of ureteric stent placement Cipro is listed at allergy causing nausea IV Cipro was changed to PO and patient tolerated well Moderate Hydroureteronephrosis Right obstructing kidney stone CT abd/pelvis showed 2 obstructing calculi in the proximal right ureter measuring up to 9 mm. This causes moderate right hydroureteronephrosis. Status post cystoscopy, urethral dilation and aspiration, retrograde pyelogram and right ureteric stent placed yesterday 10/20/19 urology on board Will discuss with urology about matute cath on discharge Follow-up with [place] urology for right ureteric stone management /ureteric stent re moval Stable Shingles: Developed vesicular painful rash on right lumbar and buttock region during this admission Noted to have shingles rash, Continue Valtrex, will need 7-10 days of treatment Percocet PRN for pain control Lactic acidosis: Due to severe sepsis, gram-negative bacteremia, complicated UTI with obstructed ureteric stone Received IV fluid Resolved Hypotension: Due to severe sepsis, Given IV fluid resuscitation Patient was on chronic p.o. prednisone for rheumatoid arthritis Got stress dose iv hydrocortisone Has been switched back to po prednisone by Plate Washer Currently normotensive Resolved Acute renal failure on CKD stage III: Due to hypotension related to severe sepsis received IV hydration Continue to hold torsemide Creatinine back to normal resolved Recently diagnosed hepatocellular carcinoma: Biopsy-proven hepatocellular carcinoma in [facility] Scheduled for outpatient IR guided radiotherapy CODE STATUS: DNR DNI DVT prophylaxis: SCD and teds, avoid anticoagulation as patient continued to have hematuria Disposition: PT/OT Discharge once medically stable Follow up with urology outpatient Admission and Anticipated Discharge Date Admission Date: October 20, 2019 Subjective Pt was seen and examined Sitting in chair with no distress Pt said that she feels much better She said that her pain is mostly from the shingles Denies any chest pain, palpitation, dizziness and SOB Physical Exam Physical Exam: General- No acute distress Head- atraumatic Eyes- PERRL, EOMI, ENT- oropharynx clear Neck- supple, no JVD Lungs- clear to auscultation Heart- regular rhythm; no murmur Abdomen- normal bowel sounds, soft, nontender Extremities- no calf tenderness, Neuro- alert, oriented x 3; PERRL, EOMI; no facial palsy; no dysarthria Skin- warm & dry, + rash (Vesicular rash on right buttock right lumbar region following dermatome) Results & Data Results & Data ([facility]) Vital Signs (Past 12 Hours) Vital Signs Temp Pulse Resp BP Pulse Ox 10/24/19 16:34 36.7 C 68 18 142/81 H 93 10/24/19 11:42 36.5 C 66 20 123/72 96 10/24/19 08:04 36.5 C 67 19 138/67 96
[2019-10-24] MEDS: ATORVASTATIN 40 MG TAB PO SCH (19:55)
[2019-10-24] MEDS: CYANOCOBALAMIN 500 MCG TABLET (VITAMIN B-12) PO SCH (19:57)
[2019-10-24] MEDS: LATANOPROST 0.005% OP SOLN 2.5 ML BTL OP SCH (20:00)
[2019-10-25] MEDS: LORazepam 0.5 MG TAB PO PRN ×2 (01:00→21:00)
[2019-10-25] MEDS: OXYCODONE/ACETAMINOPHEN 5mg/325mg TAB PO PRN ×2 (01:00→21:01)
[2019-10-25] MEDS: LEVOTHYROXINE SODIUM 125 MCG TABLET PO SCH (06:15)
[2019-10-25] MEDS: ACETAMINOPHEN 325 MG TAB PO SCH ×3 (06:18→18:20)
[2019-10-25] MEDS: HEPARIN SODIUM (PORCINE) 7,500 UNITS in SYRINGE 0 ML SQ SCH ×3 (06:18→21:15)
[2019-10-25 06:58] LABS: Hematocrit (blood only) 34.3 % (37-47); Hemoglobin 10.8 g/dL (12.0-16.0); Mean Corpuscular Hemoglobin 29.8 pg (25-34); Mean Corpuscular Hgb Conc 31.5 g/dL (32-36); Mean Corpuscular Volume 94.8 fL (80-100); Mean Platelet Volume 10.4 fL (7.4-10.4); Platelet Count 179 K/uL (130-400); RDW Coefficient of Variation 14.5 % (11.5-14.5); RDW Standard Deviation 49.3 fL (36.4-46.3); Red Blood Count 3.62 M/uL (4.2-5.4); White Blood Count 16.09 K/uL (4.8-10.8)
[2019-10-25 07:24] LABS: BUN Creatinine Ratio 15.5 (10-20); Calcium 8.6 mg/dl (8.5-10.1); Creatinine Clr Calc Pharmacy 99.8 ml/min; Est GFR (African American) 102.5; Est GFR (Non-African American) 88.4; Potassium 3.4 mmol/L (3.5-5.1)
[2019-10-25] MEDS ORDERED: POTASSIUM CHLORIDE 20 MEQ TABCR PO STA (08:43)
[2019-10-25] MEDS: TIMOLOL MALEATE 0.5% OP SOLN 5 ML BTL OP SCH ×2 (09:45→21:05)
[2019-10-25] MEDS: BRIMONIDINE TARTRATE 0.2% 5ML OPL SCH ×2 (09:45→21:06)
[2019-10-25] MEDS: ASCORBIC ACID 500 MG TAB PO SCH (09:46)
[2019-10-25] MEDS: BACITRACIN/POLYMYX B OPH OINT 3.5 GM TUBE OPR SCH ×4 (09:46→21:14)
[2019-10-25] MEDS: VALACYCLOVIR HCL 500 MG TABLET PO SCH ×2 (09:46→21:02)
[2019-10-25] MEDS: FLUTICASONE PROPIONATE NA SPR 16 GM BTL SCH (09:46)
[2019-10-25] MEDS: ERYTHROMYCIN OP OINT 5 MG/GM 3.5 GM TUBE OP SCH ×4 (09:46→21:10)
[2019-10-25] MEDS: PHENAZOPYRIDINE HCL 100 MG TAB PO SCH ×3 (09:46→21:03)
[2019-10-25] MEDS: PANTOprazole 40 MG TAB PO SCH (09:47)
[2019-10-25] MEDS: FOLIC ACID 1 MG TAB PO SCH (09:47)
[2019-10-25] MEDS: predniSONE 5 MG TAB PO SCH (09:47)
[2019-10-25] MEDS: CIPROFLOXACIN 500 MG TAB PO SCH ×2 (09:47→21:04)
[2019-10-25] MEDS: POT PHOSPHATE MONOBASIC W/ SOD TAB PO SCH ×4 (09:47→21:03)
[2019-10-25] MEDS: OXYCODONE HCL IR 5 MG TAB (IMMEDIATE RELEASE) PO PRN (09:48)
[2019-10-25] MEDS: PANCREAZE (LIPASE 10,500U) CAP PO SCH ×3 (09:48→17:34)
[2019-10-25] MEDS: INSULIN HUMAN NPH SC SCH ×2 (09:50→18:21)
[2019-10-25] MEDS: INSULIN ASPART 100 UNITS/ML 3 ML PEN SC SCH ×4 (09:51→20:51)
[2019-10-25] MEDS: MULTIVITAMIN TAB PO SCH (10:17)
[2019-10-25] MEDS: FERROUS SULFATE 325 MG TAB PO SCH (13:13)
[2019-10-25] MEDS: TORSEMIDE 10 MG TAB PO SCH (14:35)
[2019-10-25] MEDS ORDERED: HYDROmorphone INJ 0.5 MG/0.5 ML SYR IV ONE (16:00)
--- NOTE | 2019-10-25 19:49 | Hospitalist Progress Note ---
Date of Service October 25, 2019 Assessment & Plan (1) Severe sepsis: Gram Negative bacteremia Complicated UTI with right-sided obstructed kidney stone Severe sepsis secondary to obstructed right-sided ureteric stone, gram-negative bacteremia/E. coli Present on admission with Leukocytosis, elevated lactic acid and UA positive for UTI CT abd/pelvis showed 2 obstructing calculi in the proximal right ureter measuring up to 9 mm. Leukocytosis has improved 41k-27k-13k today Status post cystoscopy, urethral dilation and aspiration, retrograde pyelogram and right ureteric stent placed yesterday 10/20/19 [facility] ID consulted Blood culture growing E. coli pansensitive Repeat blood cultures from 10/20/19 : E. coli pansensitive Repeat blood cx on 10/22/19 showed no growth Started on IV Cipro as per recommendation will need total 14 days of treatment started from the day of ureteric stent placement Cipro is listed at allergy causing nausea IV Cipro was changed to PO and patient tolerated well Moderate Hydroureteronephrosis Right obstructing kidney stone CT abd/pelvis showed 2 obstructing calculi in the proximal right ureter measuring up to 9 mm. This causes moderate right hydroureteronephrosis. Status post cystoscopy, urethral dilation and aspiration, retrograde pyelogram and right ureteric stent placed yesterday 10/20/19 urology on board Will discuss with urology about matute cath on discharge Follow-up with [place] urology for right ureteric stone management /ureteric stent re moval Stable Shingles: Developed vesicular painful rash on right lumbar and buttock region during this admission Noted to have shingles rash, Continue Valtrex, will need 7-10 days of treatment Percocet PRN for pain control Lactic acidosis: Due to severe sepsis, gram-negative bacteremia, complicated UTI with obstructed ureteric stone Received IV fluid Resolved Hypotension: Due to severe sepsis, Given IV fluid resuscitation Patient was on chronic p.o. prednisone for rheumatoid arthritis Got stress dose iv hydrocortisone Has been switched back to po prednisone by Procurement Engineer Currently normotensive Resolved Acute renal failure on CKD stage III: Due to hypotension related to severe sepsis received IV hydration Continue to hold torsemide Creatinine back to normal resolved Recently diagnosed hepatocellular carcinoma: Biopsy-proven hepatocellular carcinoma in [facility] Scheduled for outpatient IR guided radiotherapy CODE STATUS: DNR DNI DVT prophylaxis: SCD and teds, avoid anticoagulation as patient continued to have hematuria Disposition: PT/OT Discharge once medically stable Follow up with urology outpatient Admission and Anticipated Discharge Date Admission Date: October 20, 2019 Subjective Pt was seen and examined Sitting in chair with no distress Pt said that her legs are getting swelling She said that she is not feeling back to her baseline yet denies any chest pain, palpitation, dizziness and SOB Physical Exam Physical Exam: General- No acute distress Head- atraumatic Eyes- PERRL, EOMI, ENT- oropharynx clear Neck- supple, no JVD Lungs- clear to auscultation Heart- regular rhythm; no murmur Abdomen- normal bowel sounds, soft, nontender Extremities- no calf tenderness, +edema Neuro- alert, oriented x 3; PERRL, EOMI; no facial palsy; no dysarthria Skin- warm & dry, + rash (Vesicular rash on right buttock right lumbar region following dermatome) Results & Data Results & Data ([facility]) Vital Signs (Past 12 Hours) Vital Signs Temp Pulse Resp BP Pulse Ox 10/25/19 16:11 36.7 C 67 19 128/84 94 10/25/19 15:24 94
[2019-10-25] MEDS: ATORVASTATIN 40 MG TAB PO SCH (21:02)
[2019-10-25] MEDS: CYANOCOBALAMIN 500 MCG TABLET (VITAMIN B-12) PO SCH (21:04)
[2019-10-25] MEDS: LATANOPROST 0.005% OP SOLN 2.5 ML BTL OP SCH (21:06)
[2019-10-26] MEDS: ACETAMINOPHEN 325 MG TAB PO SCH ×3 (00:17→12:13)
[2019-10-26] MEDS: OXYCODONE/ACETAMINOPHEN 5mg/325mg TAB PO PRN (01:29)
[2019-10-26] MEDS: LEVOTHYROXINE SODIUM 125 MCG TABLET PO SCH (06:44)
[2019-10-26] MEDS: HEPARIN SODIUM (PORCINE) 7,500 UNITS in SYRINGE 0 ML SQ SCH ×2 (06:54→13:45)
[2019-10-26] MEDS: ASCORBIC ACID 500 MG TAB PO SCH (08:12)
[2019-10-26] MEDS: VALACYCLOVIR HCL 500 MG TABLET PO SCH (08:12)
[2019-10-26] MEDS: POT PHOSPHATE MONOBASIC W/ SOD TAB PO SCH ×2 (08:13→11:57)
[2019-10-26] MEDS: PANCREAZE (LIPASE 10,500U) CAP PO SCH ×2 (08:13→11:58)
[2019-10-26] MEDS: FOLIC ACID 1 MG TAB PO SCH (08:14)
[2019-10-26] MEDS: TORSEMIDE 10 MG TAB PO SCH (08:14)
[2019-10-26] MEDS: predniSONE 5 MG TAB PO SCH (08:14)
[2019-10-26] MEDS: CIPROFLOXACIN 500 MG TAB PO SCH (08:14)
[2019-10-26] MEDS: PANTOprazole 40 MG TAB PO SCH (08:15)
[2019-10-26] MEDS: PHENAZOPYRIDINE HCL 100 MG TAB PO SCH ×2 (08:15→13:45)
[2019-10-26] MEDS: TIMOLOL MALEATE 0.5% OP SOLN 5 ML BTL OP SCH (08:16)
[2019-10-26] MEDS: FLUTICASONE PROPIONATE NA SPR 16 GM BTL SCH (08:17)
[2019-10-26] MEDS: BRIMONIDINE TARTRATE 0.2% 5ML OPL SCH (08:17)
[2019-10-26] MEDS: ERYTHROMYCIN OP OINT 5 MG/GM 3.5 GM TUBE OP SCH ×2 (08:17→11:59)
[2019-10-26] MEDS: BACITRACIN/POLYMYX B OPH OINT 3.5 GM TUBE OPR SCH ×2 (08:18→12:13)
[2019-10-26] MEDS: INSULIN ASPART 100 UNITS/ML 3 ML PEN SC SCH ×2 (09:23→13:44)
[2019-10-26] MEDS: INSULIN HUMAN NPH SC SCH (09:24)
[2019-10-26 10:26] LABS: Hematocrit (blood only) 34.6 % (37-47); Hemoglobin 11.1 g/dL (12.0-16.0); Mean Corpuscular Hemoglobin 30.2 pg (25-34); Mean Corpuscular Hgb Conc 32.1 g/dL (32-36); Mean Corpuscular Volume 94.3 fL (80-100); Mean Platelet Volume 10.2 fL (7.4-10.4); Nucleated RBC # (auto) 0.02 K/uL (0-0); Nucleated RBC % (auto) 0.1 %; Platelet Count 195 K/uL (130-400); RDW Coefficient of Variation 14.8 % (11.5-14.5); RDW Standard Deviation 49.8 fL (36.4-46.3); Red Blood Count 3.67 M/uL (4.2-5.4); White Blood Count 16.45 K/uL (4.8-10.8)
[2019-10-26 10:52] LABS: BUN Creatinine Ratio 14.8 (10-20); Calcium 8.7 mg/dl (8.5-10.1); Creatinine Clr Calc Pharmacy 94.4 ml/min; Est GFR (African American) 95.8; Est GFR (Non-African American) 82.7; Potassium 3.2 mmol/L (3.5-5.1)
[2019-10-26] MEDS: MULTIVITAMIN TAB PO SCH (11:58)
[2019-10-26] MEDS: FERROUS SULFATE 325 MG TAB PO SCH (11:58)
[2019-10-26 12:24] LABS: VZ DNA Source Whole Blood; Varicella Zoster Virus DNA PCR Not Detected (Not Detected)
[2019-10-26] MEDS ORDERED: POTASSIUM CHLORIDE 20 MEQ TABCR PO STA (12:47)
--- NOTE | 2019-10-26 15:11 | Hospitalist Progress Note ---
Date of Service October 26, 2019 Assessment & Plan (1) Severe sepsis: Gram Negative bacteremia Complicated UTI with right-sided obstructed kidney stone Severe sepsis secondary to obstructed right-sided ureteric stone, gram-negative bacteremia/E. coli Present on admission with Leukocytosis, elevated lactic acid and UA positive for UTI CT abd/pelvis showed 2 obstructing calculi in the proximal right ureter measuring up to 9 mm. Leukocytosis has improved 41k-27k-13k today Status post cystoscopy, urethral dilation and aspiration, retrograde pyelogram and right ureteric stent placed yesterday 10/20/19 [facility] ID consulted Blood culture growing E. coli pansensitive Repeat blood cultures from 10/20/19 : E. coli pansensitive Repeat blood cx on 10/22/19 showed no growth Started on IV Cipro as per recommendation will need total 14 days of treatment started from the day of ureteric stent placement Cipro is listed at allergy causing nausea IV Cipro was changed to PO and patient tolerated well Moderate Hydroureteronephrosis Right obstructing kidney stone CT abd/pelvis showed 2 obstructing calculi in the proximal right ureter measuring up to 9 mm. This causes moderate right hydroureteronephrosis. Status post cystoscopy, urethral dilation and aspiration, retrograde pyelogram and right ureteric stent placed on 10/20/19 urology on board case discussed with urology Dr. Johansen recommended to discharge home with the matute cath Follow-up with [place] urology for right ureteric stone management /ureteric stent removal Stable Shingles: Developed vesicular painful rash on right lumbar and buttock region during this admission Noted to have shingles rash, Continue Valtrex, will need 7-10 days of treatment Percocet PRN for pain control Lactic acidosis: Due to severe sepsis, gram-negative bacteremia, complicated UTI with obstructed ureteric stone Received IV fluid Resolved Hypotension: Due to severe sepsis, Given IV fluid resuscitation Patient was on chronic p.o. prednisone for rheumatoid arthritis Got stress dose iv hydrocortisone Has been switched back to po prednisone by Plugger Man Currently normotensive Resolved Acute renal failure on CKD stage III: Due to hypotension related to severe sepsis received IV hydration Torsemide resumed on 10/24 Creatinine back to normal resolved Recently diagnosed hepatocellular carcinoma: Biopsy-proven hepatocellular carcinoma in [facility] Scheduled for outpatient IR guided radiotherapy CODE STATUS: DNR DNI DVT prophylaxis: SCD and teds, avoid anticoagulation as patient continued to have hematuria Disposition: PT/OT Discharge home with home health services Follow up with PCP in 1 week Follow up with urology outpatient Admission and Anticipated Discharge Date Admission Date: October 20, 2019 Subjective Pt was seen and examined Sitting in chair with no distress Pt said that she feels much better She said that the swelling improves Denies any chest pain, palpitation and SOB Physical Exam Physical Exam: General- No acute distress Head- atraumatic Eyes- PERRL, EOMI, ENT- oropharynx clear Neck- supple, no JVD Lungs- clear to auscultation Heart- regular rhythm; no murmur Abdomen- normal bowel sounds, soft, nontender Extremities- no calf tenderness, +edema Neuro- alert, oriented x 3; PERRL, EOMI; no facial palsy; no dysarthria Skin- warm & dry, + rash (Vesicular rash on right buttock right lumbar region following dermatome) Results & Data Results & Data ([facility]) Vital Signs (Past 12 Hours) Vital Signs Temp Pulse Pulse Resp BP Pulse Ox 10/26/19 15:02 36.9 C 70 18 169/69 H 94 10/26/19 07:20 36.8 C 74 16 145/73 H 92 10/26/19 05:41 72 19 92
--- NOTE | 2019-10-28 09:11 | Discharge Summary ---
Date of Service October 26, 2019 Admission HPI Per Admitting Provider CHIEF COMPLAINT: Right flank pain. HISTORY OF PRESENT ILLNESS: This is a 69-year-old female with past medical history significant for type 2 diabetes, high triglycerides, postsurgical hypothyroidism, hyperlipidemia, obstructive sleep apnea, chronic kidney disease stage III, hypertension, paroxysmal atrial fibrillation, morbid obesity, generalized osteoarthritis, diabetic polyneuropathy, rheumatoid arthritis on multiple sites, amblyopia, legally blind, history of malignant neoplasm of thyroid, history of corneal ulcer, recent diagnosis of possible hepatic malignancy with a 4.3 cm right hepatic lobe on the recent MRI done in August 2019. She went to [place] yesterday, saw interventional radiology. There is a plan for IR-guided Y-90 ablation in 4-6 weeks. The patient presents with right flank and back pain. The patient states this pain is going on for few weeks now, but it got worse last night, and also having some low-grade fever; in the ambulance temperature 102 degrees. Here hemodynamically stable, but her white count was 13.5. UA was positive and CAT scan is showing right UPJ junction obstructing stone about 0.9 cm. The patient is currently going to the OR. The patient received IV antibiotics in the ER and pain medications. Currently resting comfortably. Denies any headache. No runny nose, no sore throat, no cough, no shortness of breath, no chest pain, no nausea. Normal bowel and bladder movements. Ambulates at home with help of blind stick. Lives with her . Admission Exam Per Admitting Provider GENERAL: The patient is morbidly obese, legally blind, not in acute distress. VITAL SIGNS: Temperature T-max 37.7, pulse 75, respiratory rate 18, blood pressure 160/83, oxygen 99% on 2 liters. HEENT: Legally blind. No pallor, no icterus. NECK: No JVD, no neck masses. CARDIOVASCULAR: S1, S2 heard. Regular rate and rhythm, no murmur, no gallop. RESPIRATORY SYSTEM: Normal AP diameter. No accessory muscle use. No wheezing, no crackles. ABDOMEN: Soft, bowel sounds present. Right CVA tenderness present. No guarding, no rigidity. CENTRAL NERVOUS SYSTEM: Cranial nerves II-XII grossly intact, nonfocal. EXTREMITIES: Mild pedal edema, no erythema seen. Principal Diagnosis Severe sepsis: Gram Negative bacteremia Complicated Urinary tract infection with right-sided obstructed kidney stone Moderate Hydroureteronephrosis Right obstructing kidney stone Shingles: Lactic acidosis: Hypotension: Acute renal failure on CKD stage III: Recently diagnosed hepatocellular carcinoma: Discharge Exam General- No acute distress Head- atraumatic Eyes- PERRL, EOMI, ENT- oropharynx clear Neck- supple, no JVD Lungs- clear to auscultation Heart- regular rhythm; no murmur Abdomen- normal bowel sounds, soft, nontender Extremities- no calf tenderness, +edema Neuro- alert, oriented x 3; PERRL, EOMI; no facial palsy; no dysarthria Skin- warm & dry, + rash (Vesicular rash on right buttock right lumbar region following dermatome) Discharge Data Allergies Allergy/AdvReac Type Severity Reaction Status Date / Time cephalexin Allergy Severe Anaphylaxis Verified 10/20/19 01:50 Cephalosporins Allergy Severe Anaphylaxis Verified 10/20/19 01:50 lidocaine [From Lidoderm] Allergy Intermediate Rash Verified 10/23/19 18:16 Sulfa (Sulfonamide Allergy Intermediate Hives Verified 10/20/19 01:50 Antibiotics) butorphanol AdvReac Intermediate RAPID HEART Verified 10/20/19 05:38 Cipro AdvReac Mild nausea Verified 04/12/17 12:39 ciprofloxacin AdvReac Mild nausea Verified 10/20/19 01:50 Consultations 10/20/19 00:55 Consult Urology Stat ED Decision to Admit Stat 10/20/19 05:13 Consult Case Management - Discharge Planning Routine 10/20/19 08:42 Consult Infectious Diseases Routine 10/20/19 12:23 Consult [facility] Routine Procedures Performed Operation Date: 10/20/19 02:00 Actual Procedures p Cystoscopy, right stent insertion(Right) - Ernie Johansen DO Ordered Studies 10/19/19 21:51 CT abd pelvis IV con only Urgent 10/20/19 01:30 FL retrograde includes kub Routine XR chest 1V portable CLINICAL HISTORY: SEPSIS COMPARISON STUDY: 04/10/2017 FINDINGS: The heart is borderline enlarged. There is generalized interstitial prominence, likely secondary to patient's body habitus. There are equivocal left basilar airspace opacities. If symptoms persist, a follow-up PA and lateral study would be recommended. There are no significant pleural effusions. IMPRESSION: 1. Technically difficult study to interpret due to the patient's large body habitus 2. Left basilar opacities, possibly related to technical factors. If the patient's symptoms persist, a follow-up PA and lateral chest x-ray could be obtained. ACT 112: Negative or not required by law. Electronically signed by: Jad Yu M.D. 10/20/2019 8:36 AM Dictated: 10/20/19833 Transcribed: 10/20/19833 CT SCAN OF THE ABDOMEN AND PELVIS WITH IV CONTRAST CLINICAL HISTORY: Generalized abdominal pain. COMPARISON STUDY: Abdominal CT dated 11/13/2011. TECHNIQUE: Following the IV administration of 94 cc of Optiray 320, CT scan of the abdomen and pelvis is performed from the lung bases to the proximal femora. Images are reviewed in the axial, sagittal, and coronal planes. IV contrast was administered without complication. A dose lowering technique was utilized adhering to the principles of ALARA. The examination is degraded by large body habitus, and by streak artifact from the body wall abutting the CT gantry. CT DOSE: 1230.77 mGycm FINDINGS: Lung bases: The heart is normal in size and without pericardial effusion. The lung bases are clear noting dependent atelectasis. Liver: The contrast-enhanced liver is enlarged, measuring 20.4 cm in length. The liver demonstrates diffusely diminished attenuation consistent with hepatic steatosis. There is [id number] central intrahepatic biliary ductal dilatation. The hepatic veins and portal veins are patent. There is a 4.5 x 3.4 cm indeterminant heterogeneous low-attenuation lesion in the right lobe seen on image #77. This is new from 11/13/2011. Gallbladder: Surgically absent noting clips in the gallbladder fossa. Spleen: Normal in size and attenuation. Pancreas: Moderately atrophic and grossly unremarkable. Adrenal glands: Unremarkable. Kidneys: The contrast enhanced kidneys demonstrate cortical atrophy. There are 8 mm and 9 mm obstructing calculi in the proximal right ureter at the level of L3- L4. These are seen on images #242 and #249. These cause moderate right-sided hydronephrosis. There is associated right-sided urothelial thickening and perinephric stranding. There are least 5 additional nonobstructing right renal calculi measuring up to 9 mm. No left renal calculi are clearly seen on this contrast-enhanced examination and there is no left-sided hydronephrosis. There is heterogeneous enhancement of the right kidney. A 4.1 cm cyst is noted on the right. Abdominal vasculature: The abdominal aorta is normal in course and caliber noting moderate atherosclerotic calcification. Bowel: There is no bowel obstruction. A duodenal diverticulum is noted. The appendix is not identified and reported surgically absent. Peritoneum: There is no intraperitoneal free air or abdominal ascites. There is diastases of the rectus musculature, with a large complex fat-containing umbilical/periumbilical hernia. Lymphadenopathy: None. Pelvic viscera: Question a 2 cm focus of asymmetric bladder wall thickening posteriorly on the right. This is best seen on axial image #388. The uterus is surgically absent. No adnexal lesion is seen. Skeletal structures: The skeletal structures are osteopenic. Lumbosacral spondylosis is observed. Postlaminectomy change seen in the lower lumbar spine. No lytic or blastic lesions are seen. Soft tissues: Foci of induration within the ventral abdominal pannus may be related to subcutaneous injections. IMPRESSION: 1. There are 2 obstructing calculi in the proximal right ureter measuring up to 9 mm. This causes moderate right hydroureteronephrosis. 2. There is urothelial thickening within the right proximal ureter and renal pelvis as well as perinephric stranding and heterogeneous perfusion of the right kidney. This is likely related to obstruction/hydronephrosis. Correlate clinically and urinalysis for evidence of superimposed urinary tract infection. 3. Numerous additional nonobstructing right renal calculi are observed. 4. Question a 2 cm focus of asymmetric bladder wall thickening as above. This is pathologically indeterminant. Follow-up with urology and cystoscopy is recommended for further assessment. 5. There is a 4.5 x 3.4 cm complex/heterogeneous lesion in the right lobe of the liver. This is pathologically indeterminant but new from 11/13/2011. This could represent a complex cyst or fluid collection such as abscess, or possibly a neoplastic process. Ultrasound of the liver is recommended for initial follow-up assessment. 6. Hepatomegaly and hepatic steatosis. 7. Additional findings as above. ACT 112: Negative or not required by law. Electronically signed by: Familia Morales M.D. 10/20/2019 8:19 AM Dictated: 10/20/19 08 Transcribed: 10/20/19 08 INTRAOPERATIVE RADIOGRAPHS CLINICAL HISTORY: Right-sided ureteral stent placement. Fluoroscopy time: 166 seconds. FINDINGS: 4 spot fluoroscopic views of the right abdomen are correlated with abdominal CT performed 10/19/2019. A catheter is placed into the right ureter. Hydronephrosis is shown following contrast demonstration. The final image shows the distal end of a right ureteral stent in place. Cholecystectomy clips are noted in the right upper quadrant. IMPRESSION: Intraoperative images from a right-sided ureteral stent placement procedure as above. Electronically signed by: Familia Morales M.D. 10/20/2019 9:02 AM Dictated: 10/20/19 09 Transcribed: 10/20/19 0900 Hospital Course (1) Severe sepsis: Gram Negative bacteremia Complicated UTI with right-sided obstructed kidney stone Severe sepsis secondary to obstructed right-sided ureteric stone, gram-negative bacteremia/E. coli Present on admission with Leukocytosis, elevated lactic acid and UA positive for UTI CT abd/pelvis showed 2 obstructing calculi in the proximal right ureter measuring up to 9 mm. Leukocytosis has improved [id number] today Status post cystoscopy, urethral dilation and aspiration, retrograde pyelogram and right ureteric stent placed yesterday 10/20/19 Krupa VACA consulted Blood culture growing E. coli pansensitive Repeat blood cultures from 10/20/19 : E. coli pansensitive Repeat blood cx on 10/22/19 showed no growth Started on IV Cipro as per recommendation will need total 14 days of treatment started from the day of ureteric stent placement Cipro is listed at allergy causing nausea IV Cipro was changed to PO and patient tolerated well Moderate Hydroureteronephrosis Right obstructing kidney stone CT abd/pelvis showed 2 obstructing calculi in the proximal right ureter measuring up to 9 mm. This causes moderate right hydroureteronephrosis. Status post cystoscopy, urethral dilation and aspiration, retrograde pyelogram and right ureteric stent placed on 10/20/19 urology on board case discussed with urology Dr. Johansen recommended to discharge home with the matute cath Follow-up with [place] [facility] for right ureteric stone management /ureteric stent removal Stable Shingles: Developed vesicular painful rash on right lumbar and buttock region during this admission Noted to have shingles rash, Continue Valtrex, will need 7-10 days of treatment Percocet PRN for pain control Lactic acidosis: Due to severe sepsis, gram-negative bacteremia, complicated UTI with obstructed ureteric stone Received IV fluid Resolved Hypotension: Due to severe sepsis, Given IV fluid resuscitation Patient was on chronic p.o. prednisone for rheumatoid arthritis Got stress dose iv hydrocortisone Has been switched back to po prednisone by [facility] Currently normotensive Resolved Acute renal failure on CKD stage III: Due to hypotension related to severe sepsis received IV hydration Torsemide resumed on 10/24 Creatinine back to normal resolved Recently diagnosed hepatocellular carcinoma: Biopsy-proven hepatocellular carcinoma in [facility] Scheduled for outpatient IR guided radiotherapy CODE STATUS: DNR DNI DVT prophylaxis: SCD and teds, avoid anticoagulation as patient continued to have hematuria Disposition: PT/OT Discharge home with home health services Follow up with PCP in 1 week Follow up with urology outpatient Total Time Total Time Spent Total Time Spent (In Minutes): 35 minutes Total Time Includes: Examination of the Patient, Discharge Planning, Medication Reconciliation, Communication With Other Providers and Other Discharge Plan Discharge Items Patient Disposition: Home - Home Health Services Reason For Visit: ILLNESS Discharge Diagnosis: Severe sepsis: Gram Negative bacteremia Complicated Urinary tract infection with right-sided obstructed kidney stone Moderate Hydroureteronephrosis Right obstructing kidney stone Shingles: Lactic acidosis: Hypotension: Acute renal failure on CKD stage III: Recently diagnosed hepatocellular carcinoma: Activity: Resume your previous activity Non-emergency contact: Primary Care Provider and Urologist Call non-emergency contact if: you have any medication questions and your temperature is above 101 Follow-up/Referrals: Iliana Sharp CRNP [Nurse Practitioner] - 11/02/19 9:00 am David Umanzor MD [Primary Care Provider] - 10/29/19 11:00 am (10/29/2019 11:00 AM Provider Lucila Heller [facility] ) Diet: Carb Consistent or DM2 Addtl Attending Provider Instructions: Follow up with your primary care provider Dr. Umanzor on 10/28 @ 11:00AM Follow up with urology Aron MARAVILLA on 11/02/19 @ 9AM to discuss for stent removal and kidney stone management Complete the course of the antibiotic with cipro Complete the course of the Valacyclovir for the shingle Check CBC in 1 week to monitor white count Check BMP in 1 week to monitor your electrolytes and renal function Keep matute catheter until next appointment with Urology Continue monitor your blood sugar and bring your blood sugar log at your next appointment with your physician Fall precaution Please hold next dose of narcotic if you become drowsy and lethargy Please do not operate any machine after taking the narcotic Pending Studies at Discharge: No Stand-Alone Forms: [facility], Opioid Pain Management, Smoking Cessation Medications and DC Order Prescriptions: New ciprofloxacin HCl 500 mg Tablet 500 mg PO BID 7 Days Qty: 14 RF: 0 phenazopyridine [Pyridium] 100 mg Tablet 100 mg PO TID PRN (Reason: bladder spasm) 5 Days Qty: 15 RF: 0 oxycodone 5 mg tablet 5 mg PO Q12H PRN (Reason: pain) Qty: 10 RF: 0 Continued atorvastatin 40 mg Tablet 40 mg PO HS RF: 0 ascorbic acid (vitamin C) 1,000 mg Tablet 1 g PO QAM RF: 0 albuterol sulfate 2.5 mg /3 mL (0.083 %) Solution For Nebulization 2.5 mg INHALATION Q4 PRN (Reason: Wheezing) RF: 0 gabapentin 400 mg Capsule 400 mg PO TID RF: 0 prednisone 5 mg Tablet 5 mg PO QAM RF: 0 Novolin 70/30 U-100 Insulin 100 unit/mL (70-30) Suspension 85 unit SUBCUT BID RF: 0 cyanocobalamin (vitamin B-12) 1,000 mcg Tablet 1,000 mcg PO QPM RF: 0 torsemide 10 mg Tablet 20 mg PO QAM RF: 0 acetaminophen [Tylenol Arthritis Pain] 650 mg Tablet Extended Release 1,300 mg PO HS RF: 0 amitriptyline 25 mg Tablet 25 mg PO HS RF: 0 lorazepam 0.5 mg Tablet 0.5 mg PO TID PRN (Reason: Anxiety) RF: 0 methotrexate sodium 2.5 mg Tablet 15 mg PO WK RF: 0 meclizine 25 mg Tablet 25 mg PO TID PRN (Reason: Dizziness) RF: 0 timolol 0.5 % Drops 1 drp OPL BID RF: 0 erythromycin 5 mg/gram (0.5 %) Ointment 1 applic OPHTHALMIC (EYE) QID RF: 0 ferrous sulfate 325 mg (65 mg iron) Tablet 325 mg PO 1200 RF: 0 levothyroxine 125 mcg Tablet 125 mcg PO QAM RF: 0 Novolin R Regular U-100 Insuln 100 unit/mL Solution 1 sliding scale dose SUBCUT QID RF: 0 nitroglycerin 0.4 mg Tablet, Sublingual 0.4 mg sublingual UD PRN (Reason: Angina) RF: 0 aspirin [Aspirin Childrens] 81 mg Tablet,Chewable 162 mg PO HS RF: 0 folic acid 1 mg Tablet 1 mg PO QAM RF: 0 hydroxychloroquine [Plaquenil] 200 mg Tablet 400 mg PO HS RF: 0 albuterol sulfate [ProAir HFA] 90 mcg/actuation Hfa Aerosol Inhaler 2 puff INHALATION QID RF: 0 fluticasone propionate [Flonase Allergy Relief] 50 mcg/actuation [place],Suspension 2 spray INTRANASAL QAM RF: 0 multivitamin with iron Tablet 1 tab PO QDL RF: 0 omeprazole 20 mg Tablet,Delayed Release (Dr/Ec) 20 mg PO QAM RF: 0 Biotene Moisturizing Mouth [place],Non-Aerosol 1 spray MUCOUS MEMBRANE QID RF: 0 Creon 24,000-76,000 -120,000 unit Capsule,Delayed Release(Dr/Ec) 1 cap PO AC RF: 0 potassium chloride 20 mEq Tablet Extended Release 20 meq PO BID RF: 0 latanoprost (PF) 0.005 % Drops 1 drp OPHTHALMIC (EYE) HS RF: 0 brimonidine 0.2 % drops 1 drp OPL BID RF: 0 tizanidine 2 mg tablet 2 mg PO Q6 PRN (Reason: Muscle Spasm) RF: 0 ergocalciferol (vitamin D2) 1,250 mcg (50,000 unit) Capsule 1,250 mcg PO WK RF: 0 cyanocobalamin (vitamin B-12) [Vitamin B-12] 1,000 mcg Tablet 1,500 mcg PO DAILY RF: 0 bacitracin-polymyxin B 500-10,000 unit/gram Ointment 3.5 g OPR QID RF: 0 Discharge Orders: Discharge Order (Routine); Ordered 10/26/19 Ordered By: Tia Flores/Other Patient Handouts: Managing Diabetes: The A1C Test, Shingles (Herpes Zoster) Admission Data Admit Date/Time: 10/20/19 02:30 Attending Provider: Tia Franco Admit Provider: Jordi Gannon Primary Care Provider: David Umanzor Other Providers: Janell Jimenez ; Ernie Johansen ; Jordi Gannon ; Trey Slater ; Man Astudillo ; Marcos Sandoval I. ; Wilver Salmon II ; Ana Phillips ; Wood Chacko ; Stevan Hill ; [facility] Other Interventions: Discharge Summary Assessment (RN) Last Done: 10/26/19 17:16 DC Date/Time DO NOT enter until pt leaves facility: 10/26/19 17:57
== END 2019-10-26 17:57 | disposition home health service (06) | DRG 871 ==
LOC: ED 21:05 → 2N 10-20 01:56 → SUATTDRO 10-20 02:30 → 2N 10-20 02:30 → 1E 10-20 11:30 → 2S 10-21 19:26 → 3N 10-25 01:13

== ENCOUNTER 2019-10-30 09:29 | Observation (INO) ==
[2019-10-30] MEDS ORDERED: OPTIRAY 320 125ml IV PRN (09:35)
--- NOTE | 2019-10-30 09:48 | CT Scan Report ---
CT OF THE HEAD WITHOUT CONTRAST CLINICAL HISTORY: Stroke evaluation. COMPARISON STUDY: Head CT April 10, 2017. TECHNIQUE: Helical axial images of the head were obtained without IV contrast. Automated exposure con trol was utilized for the study. A dose lowering technique was utilized adhering to the principles o f ALARA. FINDINGS: No acute intracranial hemorrhage, midline shift or mass effect is present. The ventricular system is unremarkable. The basilar cisterns are patent. Mild white matter hypodensity suggests small vessel disease. No extra-axial collections are present. There are no findings to suggest acute dural sinus thrombosis or acute territorial infarct. No significant calvarial abnormalities are present. V isualized portions of the sinuses and mastoid air cells are clear. 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 IMPRESSION: No acute intracranial findings. ACT 112: Negative or not required by law. Electronically signed by: Aj Reza M.D. 10/30/2019 9:47 AM
--- NOTE | 2019-10-30 09:52 | Emergency Department Note ---
Impression & Plan Hypoglycemia, Acute alteration in mental status, Urinary tract infection ED Provider Note NAME: LEON MCKEON AGE: 69 SEX: F : 1950 ARRIVES VIA: Ambulance INFORMANT: Patient, the patient's as well as the prehospital personnel. ED PROVIDER(S): Srini Pedraza DO CHIEF COMPLAINT: Weakness HPI: The patient is a 69-year-old female who has a history of diabetes and takes insulin who presented to the emergency department with weakness and slurred speech. The patient was last known well last evening approximate 1130. When the prehospital personnel arrived at the house her stated that she awoke this morning and was not herself. She was slurring her speech and appeared to be unable to follow commands. She was weak and initially this was reported as unilateral weakness but according to the it was generalized weakness. They were unable to obtain IV access so glucagon was given. Upon arrival to the emergency department the patient's symptoms have significantly improved. She is awake and alert. She is able to follow commands. She states that she was not able to take her usual meal last evening and felt that her blood sugar was dropping overnight. She tried to tell her significant other that she was having symptoms but she was unable to communicate this with him. She awoke this morn ing and felt that her blood sugar was low but still could not eat. At this time she states that she has no headache or chest pain. She denies having any nausea or vomiting. She does state that she has left hip pain which is chronic sciatica and has been evaluated in the past. She denies having any abdominal pain or diarrhea. She was recently admitted for sepsis and urinary tract infection. At this time she offers no acute complaints. The patient was made a stroke alert prior to arrival via medic command. ROS: See above HPI for pertinent positives & negatives. A total of 10 systems reviewed and were otherwise negative. PAST MEDICAL HISTORY: See Below PAST SURGICAL HISTORY: See Below FAMILY HISTORY: See Below SOCIAL HISTORY: See Below HOME MEDICATIONS: See Below ALLERGIES: See Below VITALS: See Below PHYSICAL EXAMINATION: GENERAL: The patient is awake and alert. She is mildly anxious. EYES: The patient does have underlying blindness at baseline. Her pupils are mid sized and do not react to light. She does have extraocular muscles that appear to be intact as she is looking around the room but has difficulty following commands. EARS, NOSE, MOUTH AND THROAT: The nose is without any evidence of any deformity. Mucous membranes are moist. Tongue is midline. NECK: The neck is nontender and supple. RESPIRATORY: Normal respiratory effort is noted there is no evidence of wheezing rhonchi or rales CARDIOVASCULAR: Regular rate and rhythm noted there no murmurs rubs or gallops normal S1 normal S2. GASTROINTESTINAL: The abdomen is soft. Abdomen is nontender. MUSCULOSKELETAL/EXTREMITIES: There is no evidence of gross deformity full range of motion is noted in the hips and shoulders. SKIN: There is no obvious evidence of any rash. Pedal edema was noted bilaterally. NEUROLOGIC: Patient is awake alert and oriented x3. Strength was symmetric in both lower extremities. She is able to hold her legs off the bed for greater than 5 seconds. 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 No facial droop was noted. Speech is clear. MEDICAL DECISION MAKING: The patient is a 69-year-old female who presented to the emergency department for stroke alert. The patient was recently in our facility for gram-negative bacteremia from a urinary source. Apparently she is not been feeling well over the last 24 hours and noticed that her blood sugar was dropping. She was unable to call for help. She suffers from blindness and has difficulty navigating her settings sometimes. The patient was treated with glucagon prior to arrival and her symptoms appear to be rapidly improving. Her work-up does not appear to be consistent with a neurologic source but she does appear to have more of a metabolic source for her findings today. She was treated with a meal and was reevaluated multiple times. She appears to be significantly improved. I do feel the patient may not be safe at home. She was found to have an elevation in her white blood cell count despite being on outpatient oral antibiotics for her gram-negative bacteremia which was treated with an ICU stay as well as an admission. For this reason I discussed her case with the on-call [facility] hospitalist. They have agreed to evaluate the patient in the emergency department for further management and disposition. I discussed the patient's laboratory and radiographic studies with her and her . Triage Nursing notes reviewed. Prior medical records reviewed Vital Signs: reviewed and remarkable for no significant abnormalities Differential diagnosis: Infection, dehydration, metabolic abnormality, hypo/hyperglycemia, electrolyte disturbance, anemia, hypoxia, cardiac sources, intracerebral event, toxicologic, neurologic, as well as other pathologies. ER treatment provided: See below Diagnostics interpreted by me: ECG: EKG was obtained in the emergency department. My interpretation is sinus bradycardia at 58 bpm. There is no ectopy. Diffuse ST segment depression was noted. This was compared to a tracing from October 202019. The ST segment depression appears more evident than on the previous tracing. Cardiac Monitoring: An order was placed for continuous cardiac monitoring. The monitor shows a rate of 85 with sinus rhythm. Laboratory studies: As stated above and show below. Imaging studies: See below Consultation(s): 1250: I discussed this case with Melany who is on-call for the [facility] hospitalist group. They will evaluate the patient in the emergency department for further management and disposition. ED COURSE: 944: The stroke cart was loaded and in B1 however with the patient's rapidly improving symptoms the stroke alert was called off. 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, sx only History of colon polyps History of gastric ulcer History of sinus problem reason for nebulizer and inhalers prn Hyperlipidemia Hypothyroidism [place] [facility] [place] Migraine Myocardial Infarction approx 10yrs ago was told "looked as though I had a heart attack at some point, but didnt know it" Nausea and vomiting after administration of anesthetic agent Pancreatitis per pt has had over 15 times Rheumatoid arthritis reason for steriod Sleep apnea CPAP Transient ischemic attack (TIA) x2 20+yrs ago--per MRIs had them--does not follow with neurologist, no deficits Surgical History History of appendectomy History of bilateral cataract extraction History of biopsy of bladder showed chronic cystitis History of carpal tunnel release of both wrists History of cholecystectomy History of colonoscopy History of detached retina repair x4 on right eye History of dilatation and curettage x3 History of esophagogastroduodenoscopy (EGD) History of liver biopsy BENIGN MASS History of lumbar discectomy History of partial thyroidectomy right side removed d/t papillary cancer History of tarsorrhaphy BILT--right eye closed shut, left eye partly closed History of tooth extraction all top teeth, most of bottom History of total hysterectomy with bilateral salpingo-oophorectomy (BSO) S/P foot surgery, left "stepped on a needle and had to have it removed" Family History Father Family history of reaction to anesthesia difficulty waking Family history of diabetes mellitus Mother Family history of diabetes mellitus Sister Family history of diabetes mellitus Brother Family history of diabetes mellitus Grandmother (Maternal) Family history of diabetes mellitus Grandmother (Paternal) Family history of diabetes mellitus Social History Smoking Status: Never smoker Second Hand Exposure: Yes (parents smoked/ smoked); Hx Alcohol Use: No Hx Substance Use: No Preferred Language: Greek Communication Ability: Effective Communication Tools: Other [employer] Operator Required: Yes Beliefs That Will Affect Care: None marital status: Current Living Situation: Spouse Feels Safe at Home: Yes Allergies Allergies Allergy/AdvReac Type Severity Reaction Status Date / Time cephalexin Allergy Severe Anaphylaxis Verified 10/30/19 11:58 Cephalosporins Allergy Severe Anaphylaxis Verified 10/30/19 11:58 lidocaine [From Lidoderm] Allergy Intermediate Rash Verified 10/30/19 11:58 Sulfa (Sulfonamide Allergy Intermediate Hives Verified 10/30/19 11:58 Antibiotics) butorphanol AdvReac Intermediate RAPID HEART Verified 10/30/19 11:58 Cipro AdvReac Mild nausea Verified 04/12/17 12:39 ciprofloxacin AdvReac Mild nausea Verified 10/30/19 11:58 Home Meds Home Medications Medication Instructions Recorded Confirmed Biotene Moisturizing Mouth 1 spray MUCOUS MEMBRANE QID 11/02/18 10/30/19 Creon 1 cap PO AC 11/02/18 10/30/19 Novolin 70/30 U-100 Insulin 85 unit SUBCUT BID 11/02/18 10/30/19 Novolin R Regular U-100 Insuln 1 sliding scale dose SUBCUT QID 11/02/18 10/30/19 acetaminophen [Tylenol Arthritis 1,300 mg PO HS 11/02/18 10/30/19 Pain] albuterol sulfate 2.5 mg INHALATION Q4 PRN 11/02/18 10/30/19 albuterol sulfate [ProAir HFA] 2 puff INHALATION QID 11/02/18 10/30/19 amitriptyline 25 mg PO HS 11/02/18 10/30/19 ascorbic acid (vitamin C) 1 g PO QAM 11/02/18 10/30/19 aspirin [Aspirin Childrens] 162 mg PO HS 11/02/18 10/30/19 atorvastatin 40 mg PO HS 11/02/18 10/30/19 cyanocobalamin (vitamin B-12) 1,000 mcg PO QPM 11/02/18 10/30/19 erythromycin 1 applic OPHTHALMIC (EYE) QID 11/02/18 10/30/19 ferrous sulfate 325 mg PO 1200 11/02/18 10/30/19 fluticasone propionate [Flonase 2 spray INTRANASAL QAM 11/02/18 10/30/19 Allergy Relief] folic acid 1 mg PO QAM 11/02/18 10/30/19 gabapentin 400 mg PO TID 11/02/18 10/30/19 hydroxychloroquine [Plaquenil] 400 mg PO HS 11/02/18 10/30/19 latanoprost (PF) 1 drp OPHTHALMIC (EYE) HS 11/02/18 10/30/19 levothyroxine 125 mcg PO QAM 11/02/18 10/30/19 lorazepam 0.5 mg PO TID PRN 11/02/18 10/30/19 meclizine 25 mg PO TID PRN 11/02/18 10/30/19 methotrexate sodium 15 mg PO WK 11/02/18 10/30/19 multivitamin with iron 1 tab PO QDL 11/02/18 10/30/19 nitroglycerin 0.4 mg SUBLINGUAL UD PRN 11/02/18 10/30/19 omeprazole 20 mg PO QAM 11/02/18 10/30/19 potassium chloride 20 meq PO BID 11/02/18 10/30/19 prednisone 5 mg PO QAM 11/02/18 10/30/19 timolol 1 drp OPL BID 11/02/18 10/30/19 torsemide 20 mg PO QAM 11/02/18 10/30/19 bacitracin-polymyxin B 3.5 g OPR QID 10/20/19 10/30/19 brimonidine 1 drp OPL BID 10/20/19 10/30/19 cyanocobalamin (vitamin B-12) 1,500 mcg PO DAILY 10/20/19 10/30/19 [Vitamin B-12] ergocalciferol (vitamin D2) 1,250 mcg PO WK 10/20/19 10/30/19 tizanidine 2 mg PO Q6 PRN 10/20/19 10/30/19 hydrocodone-acetaminophen 1 tab PO Q6 PRN 10/30/19 10/30/19 Previous Rx's Medication Instructions Recorded phenazopyridine [Pyridium] 100 mg PO TID PRN 5 Days #15 tab 10/26/19 Results & Data (ED) Vital Signs Vital Signs - 24 hr 10/30/19 09:55 10/30/19 09:58 10/30/19 10:01 Temperature 36.4 C L Temperature Source Oral Pulse Rate 57 L 66 Pulse Rate [Left Finger] Pulse Rate from SpO2 Sensor 55 L 57 L Respiratory Rate 18 20 14 Blood Pressure 157/67 H 157/67 H Blood Pressure [Left Arm] Blood Pressure Mean 115 97 Blood Pressure Mean [Left Arm] Pulse Oximetry 100 98 Oxygen Delivery Method Room Air Sepsis Recent Fever Within 48 Hours No Sepsis New/Unexplained Change in Mental Status No Sepsis Action Taken by Nursing No Action Required 10/30/19 10:09 10/30/19 10:13 10/30/19 10:28 Temperature Temperature Source Pulse Rate 55 L 55 L Pulse Rate [Left Finger] 120 H Pulse Rate from SpO2 Sensor 55 L 55 L Respiratory Rate 20 21 18 Blood Pressure 164/56 H 123/68 Blood Pressure [Left Arm] 164/56 H Blood Pressure Mean 80 83 Blood Pressure Mean [Left Arm] 92 Pulse Oximetry 100 Oxygen Delivery Method Room Air Sepsis Recent Fever Within 48 Hours Sepsis New/Unexplained Change in Mental Status Sepsis Action Taken by Nursing 10/30/19 10:30 10/30/19 10:31 10/30/19 11:00 Temperature Temperature Source Pulse Rate 56 L 56 L 55 L Pulse Rate [Left Finger] Pulse Rate from SpO2 Sensor 56 L 56 L 56 L Respiratory Rate 17 20 12 Blood Pressure 115/88 Blood Pressure [Left Arm] Blood Pressure Mean 102 Blood Pressure Mean [Left Arm] Pulse Oximetry 99 Oxygen Delivery Method Sepsis Recent Fever Within 48 Hours Sepsis New/Unexplained Change in Mental Status Sepsis Action Taken by Nursing 10/30/19 11:01 10/30/19 11:30 10/30/19 12:00 Temperature Temperature Source Pulse Rate 68 61 61 Pulse Rate [Left Finger] Pulse Rate from SpO2 Sensor 58 L 61 60 Respiratory Rate 20 23 Blood Pressure 136/59 L Blood Pressure [Left Arm] Blood Pressure Mean 117 Blood Pressure Mean [Left Arm] Pulse Oximetry 97 100 100 Oxygen Delivery Method Sepsis Recent Fever Within 48 Hours Sepsis New/Unexplained Change in Mental Status Sepsis Action Taken by Nursing 10/30/19 12:30 Temperature Temperature Source Pulse Rate 60 Pulse Rate [Left Finger] Pulse Rate from SpO2 Sensor 59 L Respiratory Rate 17 Blood Pressure Blood Pressure [Left Arm] Blood Pressure Mean Blood Pressure Mean [Left Arm] Pulse Oximetry Oxygen Delivery Method Sepsis Recent Fever Within 48 Hours Sepsis New/Unexplained Change in Mental Status Sepsis Action Taken by Usp Medications Current Medication List: was personally reviewed by me Laboratory Data Attestation: I reviewed the patient's lab results. Result diagrams: 10/30/19 11:35 10/30/19 11:35 Lab Results 10/30/19 10/30/19 10/30/19 Range/Units 09:50 09:50 09:50 WBC Cancelled RBC Cancelled Hgb Cancelled Hct Cancelled MCV Cancelled MCH Cancelled MCHC Cancelled RDW Std Deviation Cancelled RDW Coeff of Juani Cancelled Plt Count Cancelled MPV Cancelled Immature Gran % (Auto) Cancelled Neut % (Auto) Cancelled Lymph % (Auto) Cancelled [place] % (Auto) Cancelled Eos % (Auto) Cancelled Baso % (Auto) Cancelled Neut # (Auto) Cancelled Lymph # (Auto) Cancelled [place] # (Auto) Cancelled Eos # (Auto) Cancelled Baso # (Auto) Cancelled Immature Gran # (Auto) Cancelled Absolute Nucleated RBC Cancelled Nucleated RBC % (auto) Cancelled Neutrophils % (Manual) Cancelled Band Neutrophils % Cancelled Lymphocytes % (Manual) Cancelled Prolymphocyte % Cancelled Reactive Lymphs % (Man) Cancelled Monocytes % (Manual) Cancelled Eosinophils % (Manual) Cancelled Basophils % (Manual) Cancelled Metamyelocytes % (Man) Cancelled Myelocytes % (Man) Cancelled Promyelocytes % (Man) Cancelled Blast Cells % (Manual) Cancelled Plasma Cell % (Manual) Cancelled Other Cells % Cancelled Nucleated RBC % Cancelled Neutrophils # (Manual) Cancelled Band Neutrophils # Cancelled Total Absolute Neuts Cancelled Lymphocytes # (Manual) Cancelled Prolymphocyte # Cancelled Reactive Lymphs # Cancelled Total Abs Lymphocytes Cancelled Monocytes # (Manual) Cancelled Eosinophils # (Manual) Cancelled Basophils # (Manual) Cancelled Metamyelocytes # (Man) Cancelled Myelocytes # (Manual) Cancelled Promyelocytes # (Man) Cancelled Blast Cells # (Man) Cancelled Plasma Cell # (Manual) Cancelled Other Cells # Cancelled Nucleated RBCs # (Man) Cancelled Hypersegmented Neuts Cancelled Hyposegmented Neuts Cancelled Hypogranular Neuts Cancelled Large Granular Lymphs Cancelled # Lrg Granular Lymphs Cancelled Hairy Cells Cancelled Smudge Cells Cancelled Toxic Granulation Cancelled Toxic Vacuolation Cancelled Dohle Bodies Cancelled Shanta Rods Cancelled Platelet Estimate Cancelled Hypogranular Platelets Cancelled Clumped Platelets Cancelled Giant Platelets Cancelled Platelet Satelliting Cancelled RBC Morphology Cancelled Polychromasia Cancelled Hypochromasia Cancelled Poikilocytosis Cancelled Basophilic Stippling Cancelled Anisocytosis Cancelled Microcytosis Cancelled Macrocytosis Cancelled Spherocytes Cancelled Pappenheimer Bodies Cancelled Sickle Cells Cancelled Target Cells Cancelled Tear Drop Cells Cancelled Ovalocytes Cancelled Stomatocytes Cancelled Peterson-Orin Bodies Cancelled Echinocytes Cancelled Acanthocytes (Spur) Cancelled Rouleaux Cancelled RBC Agglutinates Cancelled Schistocytes Cancelled RBC Morph Comment Cancelled Sezary Cell Cancelled PT Cancelled INR Cancelled APTT Cancelled PTT Ratio Cancelled Sodium 141 (136-145) mmol/L Potassium (3.5-5.1) mmol/L Chloride 107 (98-107) mmol/L Carbon Dioxide 31 (21-32) mmol/L Anion Gap 3.0 (3-11) BUN 19 H (7-18) mg/dl Creatinine 0.80 (0.6-1.2) mg/dl Est Cr Clr Drug Dosing 88.7 ml/min Est GFR ( Amer) 87.2 Est GFR (Non-Af Amer) 75.2 BUN/Creatinine Ratio 23.3 H (10-20) Glucose 122 H (70-99) mg/dl Calcium 8.9 (8.5-10.1) mg/dl Magnesium (1.8-2.4) mg/dl Total Bilirubin 0.7 (0.2-1) mg/dl AST (15-37) U/L ALT 23 (12-78) U/L Alkaline Phosphatase 74 (45-117) U/L Troponin I 0.015 (0-0.045) ng/ml Total Protein 6.6 (6.4-8.2) gm/dl Albumin 2.8 L (3.4-5.0) gm/dl Globulin 3.8 (2.5-4.0) gm/dl Albumin/Globulin Ratio 0.7 L (0.9-2) Urine Color Urine Appearance (Clear) Urine pH (4.5-7.5) Ur Specific [place] (1.000-1.030) Urine Protein (Negative) Urine Glucose (UA) (Negative) Urine Ketones (Negative) Urine Blood (Negative) Urine Nitrite (Negative) Urine Bilirubin (Negative) Urine Urobilinogen (Negative) Ur Leukocyte Esterase (Negative) Urine WBC (Auto) (0-5) /hpf Urine RBC (Auto) (0-4) /hpf U Hyaline Cast (Auto) (0-5) /lpf U Epithel Cells (Auto) (0-5) /lpf Urine Bacteria (Auto) (Negative) 10/30/19 10/30/19 10/30/19 Range/Units 11:35 11:35 11:35 WBC 23.21 H RBC 4.15 L Hgb 12.8 Hct 40.4 MCV 97.3 MCH 30.8 MCHC 31.7 L RDW Std Deviation 52.7 H RDW Coeff of Juani 14.9 H Plt Count 287 MPV 10.1 Immature Gran % (Auto) 0.8 Neut % (Auto) 87.3 Lymph % (Auto) 6.8 [place] % (Auto) 4.5 Eos % (Auto) 0.5 Baso % (Auto) 0.1 Neut # (Auto) 20.28 H Lymph # (Auto) 1.57 [place] # (Auto) 1.04 H Eos # (Auto) 0.11 Baso # (Auto) 0.03 Immature Gran # (Auto) 0.18 H Absolute Nucleated RBC Nucleated RBC % (auto) Neutrophils % (Manual) Band Neutrophils % Lymphocytes % (Manual) Prolymphocyte % Reactive Lymphs % (Man) Monocytes % (Manual) Eosinophils % (Manual) Basophils % (Manual) Metamyelocytes % (Man) Myelocytes % (Man) Promyelocytes % (Man) Blast Cells % (Manual) Plasma Cell % (Manual) Other Cells % Nucleated RBC % Neutrophils # (Manual) Band Neutrophils # Total Absolute Neuts Lymphocytes # (Manual) Prolymphocyte # Reactive Lymphs # Total Abs Lymphocytes Monocytes # (Manual) Eosinophils # (Manual) Basophils # (Manual) Metamyelocytes # (Man) Myelocytes # (Manual) Promyelocytes # (Man) Blast Cells # (Man) Plasma Cell # (Manual) Other Cells # Nucleated RBCs # (Man) Hypersegmented Neuts Hyposegmented Neuts Hypogranular Neuts Large Granular Lymphs # Lrg Granular Lymphs Hairy Cells Smudge Cells Toxic Granulation Toxic Vacuolation Dohle Bodies Shanta Rods Platelet Estimate Hypogranular Platelets Clumped Platelets Giant Platelets Platelet Satelliting RBC Morphology Polychromasia Hypochromasia Poikilocytosis Basophilic Stippling Anisocytosis Microcytosis Macrocytosis Spherocytes Pappenheimer Bodies Sickle Cells Target Cells Tear Drop Cells Ovalocytes Stomatocytes Peterson-Orin Bodies Echinocytes Acanthocytes (Spur) Rouleaux RBC Agglutinates Schistocytes RBC Morph Comment Sezary Cell PT 10.3 INR 1.0 APTT 22.8 PTT Ratio 0.8 Sodium (136-145) mmol/L Potassium 4.1 (3.5-5.1) mmol/L Chloride (98-107) mmol/L Carbon Dioxide (21-32) mmol/L Anion Gap (3-11) BUN (7-18) mg/dl Creatinine (0.6-1.2) mg/dl Est Cr Clr Drug Dosing ml/min Est GFR ( Amer) Est GFR (Non-Af Amer) BUN/Creatinine Ratio (10-20) Glucose (70-99) mg/dl Calcium (8.5-10.1) mg/dl Magnesium 1.7 L (1.8-2.4) mg/dl Total Bilirubin (0.2-1) mg/dl AST 21 (15-37) U/L ALT (12-78) U/L Alkaline Phosphatase (45-117) U/L Troponin I (0-0.045) ng/ml Total Protein (6.4-8.2) gm/dl Albumin (3.4-5.0) gm/dl Globulin (2.5-4.0) gm/dl Albumin/Globulin Ratio (0.9-2) Urine Color Urine Appearance (Clear) Urine pH (4.5-7.5) Ur Specific [place] (1.000-1.030) Urine Protein (Negative) Urine Glucose (UA) (Negative) Urine Ketones (Negative) Urine Blood (Negative) Urine Nitrite (Negative) Urine Bilirubin (Negative) Urine Urobilinogen (Negative) Ur Leukocyte Esterase (Negative) Urine WBC (Auto) (0-5) /hpf Urine RBC (Auto) (0-4) /hpf U Hyaline Cast (Auto) (0-5) /lpf U Epithel Cells (Auto) (0-5) /lpf Urine Bacteria (Auto) (Negative) 10/30/19 Range/Units 12:41 WBC RBC Hgb Hct MCV MCH MCHC RDW Std Deviation RDW Coeff of Juani Plt Count MPV Immature Gran % (Auto) Neut % (Auto) Lymph % (Auto) [place] % (Auto) Eos % (Auto) Baso % (Auto) Neut # (Auto) Lymph # (Auto) [place] # (Auto) Eos # (Auto) Baso # (Auto) Immature Gran # (Auto) Absolute Nucleated RBC Nucleated RBC % (auto) Neutrophils % (Manual) Band Neutrophils % Lymphocytes % (Manual) Prolymphocyte % Reactive Lymphs % (Man) Monocytes % (Manual) Eosinophils % (Manual) Basophils % (Manual) Metamyelocytes % (Man) Myelocytes % (Man) Promyelocytes % (Man) Blast Cells % (Manual) Plasma Cell % (Manual) Other Cells % Nucleated RBC % Neutrophils # (Manual) Band Neutrophils # Total Absolute Neuts Lymphocytes # (Manual) Prolymphocyte # Reactive Lymphs # Total Abs Lymphocytes Monocytes # (Manual) Eosinophils # (Manual) Basophils # (Manual) Metamyelocytes # (Man) Myelocytes # (Manual) Promyelocytes # (Man) Blast Cells # (Man) Plasma Cell # (Manual) Other Cells # Nucleated RBCs # (Man) Hypersegmented Neuts Hyposegmented Neuts Hypogranular Neuts Large Granular Lymphs # Lrg Granular Lymphs Hairy Cells Smudge Cells Toxic Granulation Toxic Vacuolation Dohle Bodies Shanta Rods Platelet Estimate Hypogranular Platelets Clumped Platelets Giant Platelets Platelet Satelliting RBC Morphology Polychromasia Hypochromasia Poikilocytosis Basophilic Stippling Anisocytosis Microcytosis Macrocytosis Spherocytes Pappenheimer Bodies Sickle Cells Target Cells Tear Drop Cells Ovalocytes Stomatocytes Peterson-Orin Bodies Echinocytes Acanthocytes (Spur) Rouleaux RBC Agglutinates Schistocytes RBC Morph Comment Sezary Cell PT INR APTT PTT Ratio Sodium (136-145) mmol/L Potassium (3.5-5.1) mmol/L Chloride (98-107) mmol/L Carbon Dioxide (21-32) mmol/L Anion Gap (3-11) BUN (7-18) mg/dl Creatinine (0.6-1.2) mg/dl Est Cr Clr Drug Dosing ml/min Est GFR ( Amer) Est GFR (Non-Af Amer) BUN/Creatinine Ratio (10-20) Glucose (70-99) mg/dl Calcium (8.5-10.1) mg/dl Magnesium (1.8-2.4) mg/dl Total Bilirubin (0.2-1) mg/dl AST (15-37) U/L ALT (12-78) U/L Alkaline Phosphatase (45-117) U/L Troponin I (0-0.045) ng/ml Total Protein (6.4-8.2) gm/dl Albumin (3.4-5.0) gm/dl Globulin (2.5-4.0) gm/dl Albumin/Globulin Ratio (0.9-2) Urine Color Yellow Urine Appearance Clear (Clear) Urine pH 6.0 (4.5-7.5) Ur Specific [place] 1.036 H (1.000-1.030) Urine Protein Negative (Negative) Urine Glucose (UA) 2+ H (Negative) Urine Ketones Negative (Negative) Urine Blood Trace H (Negative) Urine Nitrite Negative (Negative) Urine Bilirubin Negative (Negative) Urine Urobilinogen Negative (Negative) Ur Leukocyte Esterase Negative (Negative) Urine WBC (Auto) 1-5 (0-5) /hpf Urine RBC (Auto) 5-10 H (0-4) /hpf U Hyaline Cast (Auto) 1-5 (0-5) /lpf U Epithel Cells (Auto) >30 H (0-5) /lpf Urine Bacteria (Auto) Negative (Negative) Administered Medications Levofloxacin/Dextrose (Levaquin/D5w) 750 mg in 150 mls @ 100 mls/hr IV NOW STA Stop: 10/30/19 14:19 Last Admin: 10/30/19 13:02 Dose: 100 mls/hr Documented by: [id number] Ioversol (Optiray 320 125ml) 119 ml IV ONCE PRN PRN Reason: Interaction Checking Stop: 11/03/19 09:34 Last Admin: 10/30/19 09:35 Dose: 119 ml Documented by: [id number] Imaging Data Radiologist's Impression: XR chest 1V portable CLINICAL HISTORY: weak COMPARISON STUDY: Chest radiograph October 19, 2019. FINDINGS: Lung volumes are normal. Lungs are clear. There is no pneumothorax or pleural effusion. Cardiac size is normal. Mediastinal contours are normal. There is no evidence for pulmonary edema. Patient is mildly rotated. IMPRESSION: No acute cardiopulmonary findings. ACT 112: Negative or not required by law. Electronically signed by: jA Reza M.D. 10/30/2019 9:56 AM Dictated: 10/30/19954 Transcribed: 10/30/19954 CT angio head w con, CT angio neck with con CLINICAL HISTORY: 69 years-old Female with Stroke evaluation . Acute strokelike symptoms COMPARISON STUDY: Head CT of same day TECHNIQUE: Unenhanced axial CT scan of the brain is performed. Subsequently, following the IV administration of 119 cc of Optiray 320, CT angiogram of the head and neck was performed from the aortic arch to the skull apex. Images are reviewed in the axial, sagittal, and coronal planes. 3-D MIPS images are created and assessed. IV contrast was administered without complication. All measurements were obtained according to NASCET criteria. A dose lowering techni que was utilized adhering to the principles of ALARA. CT DOSE: 1259.42 mGy.cm FINDINGS: Mild calcified plaque of the thoracic aortic arch. Patency of the imaged bilateral subclavian arteries. The innominate and common carotid arteries are patent. Extensive calcified plaque of the right carotid bulb and proximal right ICA results in 50% luminal narrowing of the proximal right ICA. Mild mixed gallo que of the left carotid bulb without stenosis. Mild calcified plaque of the cavernous and supraclinoid segments. The middle and anterior cerebral arteries are widely patent. Normal anterior communicating artery. Codominant and patent vertebral arteries. There is mild calcified plaque of the V4 segment. The basilar and posterior cerebral arteries are patent. Mild multifocal luminal narrowing of the left posterior cerebral artery. No aneurysm, dissection, high- grade stenosis or proximal branch occlusion. Cerebral venous sinuses are also patent. No abnormal intracranial enhancement. Lung apices appear clear. No pneumothorax. Diminutive versus surgically absent right thyroid lobe. Soft tissues are unremarkable. Degenerative changes of the spine. Right globe prosthesis. Elongation of the left globe with left lens replacement. IMPRESSION: 1. Severe calcified plaque of the right carotid bulb and proximal right ICA results in approximately 50% luminal narrowing of the proximal carotid segment. 2. Mild mixed plaque of the left carotid bulb without significant stenosis. 3. Unremarkable CTA of the head. ACT 112: Negative or not required by law. The above report was generated using voice recognition software. It may contain grammatical, syntax or spelling errors. Electronically signed by: Ambrose Yarbrough M.D. 10/30/2019 10:01 AM Dictated: 10/30/19945 Transcribed: 10/30/19945 CT OF THE HEAD WITHOUT CONTRAST CLINICAL HISTORY: Stroke evaluation. COMPARISON STUDY: Head CT April 10, 2017. TECHNIQUE: Helical axial images of the head were obtained without IV contrast. Automated exposure control was utilized for the study. A dose lowering technique was utilized adhering to the principles of ALARA. FINDINGS: No acute intracranial hemorrhage, midline shift or mass effect is present. The ventricular system is unremarkable. The basilar cisterns are patent. Mild white matter hypodensity suggests small vessel disease. No extra- axial collections are present. There are no findings to suggest acute dural sinus thrombosis or acute territorial infarct. No significant calvarial abnormalities are present. Visualized portions of the sinuses and mastoid air cells are clear. 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 IMPRESSION: No acute intracranial findings. ACT 112: Negative or not required by law. Electronically signed by: Aj Reza M.D. 10/30/2019 9:47 AM Dictated: 10/30/19943 Transcribed: 10/30/19943 Blood Pressure Blood Pressure Findings: Normal blood pressure Discharge Plan Visit Data Chief Complaint: Hypoglycemia ED Provider: Srini Pedraza Discharge Problem: Hypoglycemia, Acute alteration in mental status, Urinary tract infection Patient Disposition: Being Evaluated by Hospitalist Condition: Good Forms Stand Alone Forms: My [employer] Prescriptions Prescriptions: No Action atorvastatin 40 mg Tablet 40 mg PO HS RF: 0 ascorbic acid (vitamin C) 1,000 mg Tablet 1 g PO QAM RF: 0 albuterol sulfate 2.5 mg /3 mL (0.083 %) Solution For Nebulization 2.5 mg INHALATION Q4 PRN (Reason: Wheezing) RF: 0 gabapentin 400 mg Capsule 400 mg PO TID RF: 0 prednisone 5 mg Tablet 5 mg PO QAM RF: 0 Novolin 70/30 U-100 Insulin 100 unit/mL (70-30) Suspension 85 unit SUBCUT BID RF: 0 cyanocobalamin (vitamin B-12) 1,000 mcg Tablet 1,000 mcg PO QPM RF: 0 torsemide 10 mg Tablet 20 mg PO QAM RF: 0 acetaminophen [Tylenol Arthritis Pain] 650 mg Tablet Extended Release 1,300 mg PO HS RF: 0 amitriptyline 25 mg Tablet 25 mg PO HS RF: 0 lorazepam 0.5 mg Tablet 0.5 mg PO TID PRN (Reason: Anxiety) RF: 0 methotrexate sodium 2.5 mg Tablet 15 mg PO WK RF: 0 meclizine 25 mg Tablet 25 mg PO TID PRN (Reason: Dizziness) RF: 0 timolol 0.5 % Drops 1 drp OPL BID RF: 0 erythromycin 5 mg/gram (0.5 %) Ointment 1 applic OPHTHALMIC (EYE) QID RF: 0 ferrous sulfate 325 mg (65 mg iron) Tablet 325 mg PO 1200 RF: 0 levothyroxine 125 mcg Tablet 125 mcg PO QAM RF: 0 Novolin R Regular U-100 Insuln 100 unit/mL Solution 1 sliding scale dose SUBCUT QID RF: 0 nitroglycerin 0.4 mg Tablet, Sublingual 0.4 mg sublingual UD PRN (Reason: Angina) RF: 0 aspirin [Aspirin Childrens] 81 mg Tablet,Chewable 162 mg PO HS RF: 0 folic acid 1 mg Tablet 1 mg PO QAM RF: 0 hydroxychloroquine [Plaquenil] 200 mg Tablet 400 mg PO HS RF: 0 albuterol sulfate [ProAir HFA] 90 mcg/actuation Hfa Aerosol Inhaler 2 puff INHALATION QID RF: 0 fluticasone propionate [Flonase Allergy Relief] 50 mcg/actuation [place],Suspension 2 spray INTRANASAL QAM RF: 0 multivitamin with iron Tablet 1 tab PO QDL RF: 0 omeprazole 20 mg Tablet,Delayed Release (Dr/Ec) 20 mg PO QAM RF: 0 Biotene Moisturizing Mouth [place],Non-Aerosol 1 spray MUCOUS MEMBRANE QID RF: 0 Creon 24,000-76,000 -120,000 unit Capsule,Delayed Release(Dr/Ec) 1 cap PO AC RF: 0 potassium chloride 20 mEq Tablet Extended Release 20 meq PO BID RF: 0 latanoprost (PF) 0.005 % Drops 1 drp OPHTHALMIC (EYE) HS RF: 0 brimonidine 0.2 % drops 1 drp OPL BID RF: 0 tizanidine 2 mg tablet 2 mg PO Q6 PRN (Reason: Muscle Spasm) RF: 0 ergocalciferol (vitamin D2) 1,250 mcg (50,000 unit) Capsule 1,250 mcg PO WK RF: 0 cyanocobalamin (vitamin B-12) [Vitamin B-12] 1,000 mcg Tablet 1,500 mcg PO DAILY RF: 0 bacitracin-polymyxin B 500-10,000 unit/gram Ointment 3.5 g OPR QID RF: 0 phenazopyridine [Pyridium] 100 mg Tablet 100 mg PO TID PRN (Reason: bladder spasm) 5 Days Qty: 15 RF: 0 hydrocodone-acetaminophen 10-325 mg Tablet 1 tab PO Q6 PRN (Reason: Pain) RF: 0 Referrals Referrals: David Umanzor MD [Primary Care Provider] - Discharge Problem: Urinary tract infection Qualifiers: Urinary tract infection type: site unspecified Hematuria presence: without hematuria Qualified Code(s): N39.0 - Urinary tract infection, site not specified
--- NOTE | 2019-10-30 09:57 | XRay Report ---
XR chest 1V portable CLINICAL HISTORY: weak COMPARISON STUDY: Chest radiograph October 19, 2019. FINDINGS: Lung volumes are normal. Lungs are clear. There is no pneumothorax or pleural effusion. Car diac size is normal. Mediastinal contours are normal. There is no evidence for pulmonary edema. Patie nt is mildly rotated. IMPRESSION: No acute cardiopulmonary findings. ACT 112: Negative or not required by law. Electronically signed by: Aj Reza M.D. 10/30/2019 9:56 AM
--- NOTE | 2019-10-30 10:03 | CT Scan Report ---
CT angio head w con, CT angio neck with con CLINICAL HISTORY: 69 years-old Female with Stroke evaluation . Acute strokelike symptoms COMPARISON STUDY: Head CT of same day TECHNIQUE: Unenhanced axial CT scan of the brain is performed. Subsequently, following the IV adminis tration of 119 cc of Optiray 320, CT angiogram of the head and neck was performed from the aortic arc h to the skull apex. Images are reviewed in the axial, sagittal, and coronal planes. 3-D MIPS images are created and assessed. IV contrast was administered without complication. All measurements were ob tained according to NASCET criteria. A dose lowering technique was utilized adhering to the principle s of ALARA. CT DOSE: 1259.42 mGy.cm FINDINGS: Mild calcified plaque of the thoracic aortic arch. Patency of the imaged bilateral subclavian arterie s. The innominate and common carotid arteries are patent. Extensive calcified plaque of the right car otid bulb and proximal right ICA results in 50% luminal narrowing of the proximal right ICA. Mild mix ed plaque of the left carotid bulb without stenosis. Mild calcified plaque of the cavernous and supra clinoid segments. The middle and anterior cerebral arteries are widely patent. Normal anterior commun icating artery. Codominant and patent vertebral arteries. There is mild calcified plaque of the V4 se gment. The basilar and posterior cerebral arteries are patent. Mild multifocal luminal narrowing of t he left posterior cerebral artery. No aneurysm, dissection, high-grade stenosis or proximal branch oc clusion. Cerebral venous sinuses are also patent. No abnormal intracranial enhancement. Lung apices appear clear. No pneumothorax. Diminutive versus schroeder rgically absent right thyroid lobe. Soft tissues are unremarkable. Degenerative changes of the spine. Right globe prosthesis. Elongation of the left globe with left lens replacement. IMPRESSION: 1. Severe calcified plaque of the right carotid bulb and proximal right ICA results in approximately 50% luminal narrowing of the proximal carotid segment. 2. Mild mixed plaque of the left carotid bulb without significant stenosis. 3. Unremarkable CTA of the head. ACT 112: Negative or not required by law. The above report was generated using voice recognition software. It may contain grammatical, syntax o r spelling errors. Electronically signed by: Ambrose Yarbrough M.D. 10/30/2019 10:01 AM
[2019-10-30 10:44] LABS: Albumin Globulin Ratio 0.7 (0.9-2); Albumin Level 2.8 gm/dl (3.4-5.0); BUN Creatinine Ratio 23.3 (10-20); Bilirubin,Total 0.7 mg/dl (0.2-1); Calcium 8.9 mg/dl (8.5-10.1); Creatinine Clr Calc Pharmacy 88.7 ml/min; Est GFR (African American) 87.2; Est GFR (Non-African American) 75.2; Globulin 3.8 gm/dl (2.5-4.0); Total Protein 6.6 gm/dl (6.4-8.2); Troponin I 0.015 ng/ml (0-0.045)
[2019-10-30 12:03] LABS: Hematocrit (blood only) 40.4 % (37-47); Hemoglobin 12.8 g/dL (12.0-16.0); Mean Corpuscular Hemoglobin 30.8 pg (25-34); Mean Corpuscular Hgb Conc 31.7 g/dL (32-36); Mean Corpuscular Volume 97.3 fL (80-100); Mean Platelet Volume 10.1 fL (7.4-10.4); Platelet Count 287 K/uL (130-400); RDW Coefficient of Variation 14.9 % (11.5-14.5); RDW Standard Deviation 52.7 fL (36.4-46.3); Red Blood Count 4.15 M/uL (4.2-5.4); White Blood Count 23.21 K/uL (4.8-10.8)
[2019-10-30 12:15] LABS: Potassium 4.1 mmol/L (3.5-5.1)
[2019-10-30 12:16] LABS: Partial Thromboplastin Ratio 0.8; Partial Thromboplastin Time 22.8 Seconds (21.0-31.0); Prothrombin Time 10.3 Seconds (9.0-12.0)
[2019-10-30 12:21] LABS: Magnesium 1.7 mg/dl (1.8-2.4)
[2019-10-30 12:29] LABS: Basophils # (auto) 0.03 K/uL (0-0.2); Basophils % (auto) 0.1 %; Eosinophils # (auto) 0.11 K/uL (0-0.5); Eosinophils % (auto) 0.5 %; Immature Granulocytes # (auto) 0.18 K/uL (0.00-0.02); Immature Granulocytes % (auto) 0.8 %; Lymphocytes # (auto) 1.57 K/uL (1.2-3.4); Lymphocytes % (auto) 6.8 %; Monocytes # (auto) 1.04 K/uL (0.11-0.59); Monocytes % (auto) 4.5 %; Neutrophils # (auto) 20.28 K/uL (1.4-6.5); Neutrophils % (auto) 87.3 %
[2019-10-30] MEDS ORDERED: LEVOFLOXACIN/D5W 750 MG/150 ML BAG IV STA (12:50)
[2019-10-30 12:51] LABS: Appearance Urine Clear (Clear); Bacteria Urine Automated Negative (Negative); Bilirubin Urine Negative (Negative); Blood Urine Trace (Negative); Color Urine Yellow; Epithelial Cell Urine Auto >30 /lpf (0-5); Glucose Urine UA 2+ (Negative); Ketones Urine Negative (Negative); Leukocyte Esterase Urine Negative (Negative); Nitrite Urine Negative (Negative); Protein Urine Negative (Negative); Specific Gravity Urine 1.036 (1.000-1.030); Urobilinogen Urine Negative (Negative)
--- NOTE | 2019-10-30 13:41 | Electrocardiogram Report ---
Test Reason : Blood Pressure : / mmHG Vent. Rate : 058 BPM Atrial Rate : 058 BPM P-R Int : 196 ms QRS Dur : 088 ms QT Int : 460 ms P-R-T Axes : 078 021 089 degrees QTc Int : 451 ms Poor data quality, interpretation may be adversely affected Sinus bradycardia Nonspecific ST and T wave abnormality Abnormal ECG When compared with ECG of 21-OCT-2019 17:42, ST now depressed in Inferior leads ST now depressed in Anterolateral leads Nonspecific T wave abnormality now evident in Inferior leads Confirmed by Srini Solorio ([id number]) on 10/30/2019 1:41:11 PM Referred By: REFERRED SELF Confirmed By:Srini Solorio
[2019-10-30] MEDS ORDERED: HYDROCODONE/ACETAMOPHEN 5/325MG TAB PO STA (14:37)
--- NOTE | 2019-10-30 15:01 | History & Physical Report ---
Date of Service October 30, 2019 Assessment & Plan (1) Hypoglycemia: (2) Bacteremia due to Gram-negative bacteria: (3) Right ureteral stone: (4) Urinary tract infection: This is a 69-year-old female who has significant past medical history of insulin-dependent T2DM, HTN, HLD, CKD stage III, PAF, LAQUITA on CPAP, rheumatoid arthritis, diabetic neuropathy, history of recurrent pancreatitis, history of thyroid CA status post thyroidectomy, amblyopia, history of corneal ulcer with right eye blindness, legally blind and newly dx of hepatocellualar ca who presents to ED secondary to hypoglycemia. Patient hospitalized 10/19 to 10/25 secondary to severe sepsis, gram-negative bacteremia secondary to Klebsiella, hydroureteronephrosis secondary to right obstructive kidney stone status post cystoscopy, urethral dilation and aspiration, retrograde pyelogram and right aortic stent placement on 10/[address] Johansen. Treated with IV Cipro and transition to oral Cipro for 14 days to be completed on 11/02. Hospitalization complicated by herpes zoster treated with full course of Valtrex and has since resolved. Was discharged home on 10/25 and has been having hypoglycemic episodes since discharge. She continues to take her normal insulin regimen despite decreased oral intake. Took 150 units of Novolin R prior to going to bed last evening and woke up this morning with altered mental status and slurred speech found to be hypoglycemic. Upon arrival to ED she was stroke alert secondary to slurred speech and concern for stroke but underlying diagnosis was hypoglycemia. She is now back to baseline but will be admitted under observation for further monitoring of hypoglycemia and titration of insulin. Admit to telemetry Consult glycemic pharmacy for assistance in insulin management due to hypoglycemic episodes, she states her carb ratio at home is 1-2 Place her on every 2 hour BSG's Continue oral ciprofloxacin 500 mg twice daily and complete until 11/02 White blood cell count has increased to 23k, likely reactive in setting of hypoglycemia Blood culture and urine culture resent, she is afebrile She is to follow-up with urology on 11/01 for Red removal and discussion of stent removal -this will need to be rescheduled as she has IR appointment in [place] due to newly diagnosed hepatocellular CA Repeat labs in a.m. (5) Hypomagnesemia: Replace with 1 g magnesium sulfate Repeat in a.m. (6) Congestive heart failure: Chronic diastolic CHF- last echocardiogram 07/2016 revealed EF 50 to 54%, mild concentric LVH, grade 2 diastolic dysfunction Daily weights, strict I's and O's, heart healthy, low-sodium diet Weight 129.6 kg today Continue torsemide, potassium She is not on beta-gio or MARIXA inhibitor (7) Diabetes mellitus, type 2: A1c on 10/20/2019 8.0 On high dose Novolin with strict carb ratio Insulin-dependent Consult ICM and pharmacy as above secondary to multiple episodes of hypoglycemia and admission diagnosis of hypoglycemia (8) Rheumatoid arthritis: Continue methotrexate every Tuesday, Plaquenil, prednisone, folic acid Follows with [facility] rheumatology (9) Glaucoma: Continue eyedrops Legally blind History of corneal ulcer with complete right eye blindness (10) Hypothyroidism: Continue levothyroxine (11) Pancreatitis: History of recurrent pancreatitis Continue Creon (12) Sleep apnea: Compliant with CPAP at home Refusing to use CPAP while in house (13) Hepatocellular carcinoma: Newly diagnosed, following hepatology at [place] To undergo mapping and IR ablation Appointment at [place] Wednesday 11/01 (14) DVT prophylaxis: lovenox, no further hematuria, microscopic noted on UA monitor Disposition: Admit to telemetry under observation Follow-up: PCP Dr. Tanner at discharge Pt was seen and examined in collaboration with Dr. Franco, please see addendum History of Present Illness Chief Complaint: Hypogylcemia Primary Care Provider: David Umanzor MD This is a 69-year-old female who has significant past medical history of insulin-dependent T2DM, HTN, HLD, CKD stage III, PAF, LAQUITA on CPAP, rheumatoid arthritis, diabetic neuropathy, history of recurrent pancreatitis, history of thyroid CA status post thyroidectomy, amblyopia, history of corneal ulcer with right eye blindness, legally blind and newly dx of hepatocellualar ca who pr esents to ED secondary to hypoglycemia. Of significance patient was recently hospitalized 10/19 to 10/25 secondary to severe sepsis, gram-negative bacteremia, complicated UTI secondary to right obstructive stone with hydroureteronephrosis status post cystoscopy with stent placement, Red catheter placement, diagnosis of shingles and ALONA on CKD. She was initially placed on IV Cipro which was transitioned to oral Cipro that she has been tolerating as outpatient twice a day. She was started on Valtrex for shingles which has since resolved and she completed course. She is overall been feeling well although appetite has been decreased. She has not been eating and drinking as much but still taking her normal amount of insulin. Patient actually was a stroke alert secondary to altered mental status and slurred speech. She states last night around 10 AM prior to going to bed her blood sugar was 400. She took her usual 85 units of Novolin at dinner although did not eat very much. She then ate a bowl of ice cream around 8 or 9 PM. At 10 PM prior to bed due to hyperglycemia she took 150 unit of Novolin R. She woke up this morning and what she thinks was approximately 3 AM when she felt very diaphoretic, ill and lightheaded. She was trying to get her 's attention but was unable to do so. He eventually this morning found her altered with slurred speech and called 911. When EMS arrived she heard her blood sugar was in the 60s. She did receive glucagon which improved symptoms. Currently during my evaluation she feels well. Denies any fever since discharge and of the decreased appetite has been doing well. She denies any lightheadedness, dizziness, syncope, chest pain, shortness breath, cough, nausea, vomiting, abdominal pain, diarrhea. Last BM was this morning. Continues to have Red catheter in place. She is to follow-up with urology outpatient on Tuesday. She is very conflicted as she also has IR at [place] follow-up on Tuesday and does not know what to do. In regards to her diabetes she has been taking Novolin 85 units twice daily, and Novolin R sliding scale with meals with a 1-2 carb ratio. She has been dealing with low blood sugars on 4 different occasions since discharge and feels maybe her carb ratio is too tight. She is concerned with going home given her recent episode of hypoglycemia. In ED she remained hemodynamically stable and glucose upon admission is 122. Lab work notable for leukocytosis 23,210, H&H 12.8 and 40.4, platelet 287, BUN 19, creatinine 0.80, glucose 122, mag 1.7, urinalysis trace blood and numerous epithelial cells, negative bacteria. Given worsening leukocytosis since discharge she did receive IV Levaquin while in ED. Allergies Allergy/AdvReac Type Severity Reaction Status Date / Time cephalexin Allergy Severe Anaphylaxis Verified 10/30/19 11:58 Cephalosporins Allergy Severe Anaphylaxis Verified 10/30/19 11:58 lidocaine [From Lidoderm] Allergy Intermediate Rash Verified 10/30/19 11:58 Sulfa (Sulfonamide Allergy Intermediate Hives Verified 10/30/19 11:58 Antibiotics) butorphanol AdvReac Intermediate RAPID HEART Verified 10/30/19 11:58 Cipro AdvReac Mild nausea Verified 04/12/17 12:39 ciprofloxacin AdvReac Mild nausea Verified 10/30/19 11:58 Home Medications Home Medications Medication Instructions Recorded Confirmed Type Biotene Moisturizing Mouth 1 spray MUCOUS MEMBRANE QID 11/02/18 10/30/19 History Creon 1 cap PO AC 11/02/18 10/30/19 History Novolin 70/30 U-100 Insulin 85 unit SUBCUT BID 11/02/18 10/30/19 History Novolin R Regular U-100 Insuln 1 sliding scale dose SUBCUT QID 11/02/18 10/30/19 History acetaminophen [Tylenol Arthritis 1,300 mg PO HS 11/02/18 10/30/19 History Pain] albuterol sulfate 2.5 mg INHALATION Q4 PRN 11/02/18 10/30/19 History albuterol sulfate [ProAir HFA] 2 puff INHALATION QID 11/02/18 10/30/19 History amitriptyline 25 mg PO HS 11/02/18 10/30/19 History ascorbic acid (vitamin C) 1 g PO QAM 11/02/18 10/30/19 History aspirin [Aspirin Childrens] 162 mg PO HS 11/02/18 10/30/19 History atorvastatin 40 mg PO HS 11/02/18 10/30/19 History cyanocobalamin (vitamin B-12) 1,000 mcg PO QPM 11/02/18 10/30/19 History erythromycin 1 applic OPHTHALMIC (EYE) QID 11/02/18 10/30/19 History ferrous sulfate 325 mg PO 1200 11/02/18 10/30/19 History fluticasone propionate [Flonase 2 spray INTRANASAL QAM 11/02/18 10/30/19 History Allergy Relief] folic acid 1 mg PO QAM 11/02/18 10/30/19 History gabapentin 400 mg PO TID 11/02/18 10/30/19 History hydroxychloroquine [Plaquenil] 400 mg PO HS 11/02/18 10/30/19 History latanoprost (PF) 1 drp OPHTHALMIC (EYE) HS 11/02/18 10/30/19 History levothyroxine 125 mcg PO QAM 11/02/18 10/30/19 History lorazepam 0.5 mg PO TID PRN 11/02/18 10/30/19 History meclizine 25 mg PO TID PRN 11/02/18 10/30/19 History methotrexate sodium 15 mg PO WK 11/02/18 10/30/19 History multivitamin with iron 1 tab PO QDL 11/02/18 10/30/19 History nitroglycerin 0.4 mg SUBLINGUAL UD PRN 11/02/18 10/30/19 History omeprazole 20 mg PO QAM 11/02/18 10/30/19 History potassium chloride 20 meq PO BID 11/02/18 10/30/19 History prednisone 5 mg PO QAM 11/02/18 10/30/19 History timolol 1 drp OPL BID 11/02/18 10/30/19 History torsemide 20 mg PO QAM 11/02/18 10/30/19 History bacitracin-polymyxin B 3.5 g OPR QID 10/20/19 10/30/19 History brimonidine 1 drp OPL BID 10/20/19 10/30/19 History cyanocobalamin (vitamin B-12) 1,500 mcg PO DAILY 10/20/19 10/30/19 History [Vitamin B-12] ergocalciferol (vitamin D2) 1,250 mcg PO WK 10/20/19 10/30/19 History tizanidine 2 mg PO Q6 PRN 10/20/19 10/30/19 History phenazopyridine [Pyridium] 100 mg PO TID PRN 5 Days #15 tab 10/26/19 10/30/19 Rx ciprofloxacin HCl [Cipro] 500 mg PO Q12H 10/30/19 10/30/19 History hydrocodone-acetaminophen 1 tab PO Q6 PRN 10/30/19 10/30/19 History 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, sx only History of colon polyps History of gastric ulcer History of sinus problem reason for nebulizer and inhalers prn Hyperlipidemia Hypothyroidism Liver mass scheduled for biopsy @ [facility] [place] 11/08/18 Migraine Myocardial Infarction approx 10yrs ago was told "looked as though I had a heart attack at some point, but didnt know it" Nausea and vomiting after administration of anesthetic agent Pancreatitis per pt has had over 15 times Rheumatoid arthritis reason for steriod Sleep apnea CPAP Transient ischemic attack (TIA) x2 20+yrs ago--per MRIs had them--does not follow with neurologist, no deficits Surgical History History of appendectomy History of bilateral cataract extraction History of biopsy of bladder showed chronic cystitis History of carpal tunnel release of both wrists History of cholecystectomy History of colonoscopy History of detached retina repair x4 on right eye History of dilatation and curettage x3 History of esophagogastroduodenoscopy (EGD) History of liver biopsy BENIGN MASS History of lumbar discectomy History of partial thyroidectomy right side removed d/t papillary cancer History of tarsorrhaphy BILT--right eye closed shut, left eye partly closed History of tooth extraction all top teeth, most of bottom History of total hysterectomy with bilateral salpingo-oophorectomy (BSO) S/P foot surgery, left "stepped on a needle and had to have it removed" Family History Father Family history of reaction to anesthesia difficulty waking Family history of diabetes mellitus Mother Family history of diabetes mellitus Sister Family history of diabetes mellitus Brother Family history of diabetes mellitus Grandmother (Maternal) Family history of diabetes mellitus Grandmother (Paternal) Family history of diabetes mellitus Social History Smoking Status: Never smoker Second Hand Exposure: No; Hx Alcohol Use: No Hx Substance Use: No Preferred Language: Qatari Communication Ability: Effective Communication Tools: Other Executive Vp Required: No Beliefs That Will Affect Care: None marital status: Current Living Situation: Spouse Feels Safe at Home: Yes Review of Systems Review of Systems: All systems reviewed & are unremarkable except as noted in HPI & below Physical Exam Physical Exam: Constitutional: WD/WN, obese, female, tearful vitals as above, NAD, sitting up in bed, pleasant, conversing easily Head: Normocephalic, Atraumatic Eyes: Exophthalmos, PERRL, conjunctivae normal, anicteric sclerae ENMT: external ear and nose normal, oropharynx normal Neck: trachea midline, no thyromegaly normal visual inspection Respiratory: normal respiratory effort, lungs clear to auscultation, no wheeze, rales, rhonchi. Normal insp/exp effort, no accessory muscle use Cardiovascular: RRR, 1/6 MILES at RUSB, bilateral trace lower extremity edema, obese lower extremities, Vessels: no JVD or carotid bruit Chest: normal inspection of chest Abdomen: Obese abdomen, normal bowel sounds, soft, nontender, no hepatosplenomegaly Musculoskeletal: no cyanosis or clubbing, extremities motor strength 5/5 Skin: Right buttock with healed zoster lesions, no rashes, warm and dry normal turgor Neurologic: PERRL, EOMI, accommodation nl, no face palsy, no dysarthria CN's II-XI intact bilaterally and moves all extremities Psychiatric: A+Ox3, euthymic affect Lymphatic: no cervical or axillary lymphadenopathy : deferred Results & Data Results & Data ([facility]) Vital Signs (Past 12 Hours) Vital Signs Temp Pulse Pulse Resp BP BP Pulse Ox 10/30/19 14:01 62 21 143/34 H 98 10/30/19 14:00 59 L 17 100 10/30/19 13:31 62 21 99 10/30/19 13:30 63 25 H 149/90 H 97 10/30/19 13:01 62 25 H 10/30/19 13:00 63 21 138/76 10/30/19 12:30 60 17 10/30/19 12:00 61 23 100 10/30/19 11:30 61 20 100 10/30/19 11:01 68 136/59 L 97 10/30/19 11:00 55 L 12 99 10/30/19 10:31 56 L 20 115/88 10/30/19 10:30 56 L 17 10/30/19 10:28 55 L 18 123/68 10/30/19 10:13 55 L 21 164/56 H 10/30/19 10:09 120 H 20 164/56 H 100 10/30/19 10:01 66 14 98 10/30/19 09:58 36.4 C L 57 L 20 157/67 H 100 10/30/19 09:55 18 157/67 H Laboratory Results Short CBC 10/30/19 10/30/19 Range/Units 09:50 11:35 WBC Cancelled 23.21 H Hgb Cancelled 12.8 Hct Cancelled 40.4 Plt Count Cancelled 287 BMP 10/30/19 10/30/19 09:50 11:35 Sodium 141 Potassium 4.1 Chloride 107 Carbon Dioxide 31 BUN 19 H Creatinine 0.80 Glucose 122 H Calcium 8.9 Cardiac Enzymes 10/30/19 Range/Units 09:50 Troponin I 0.015 (0-0.045) ng/ml Liver Function 10/30/19 10/30/19 Range/Units 09:50 11:35 Total Bilirubin 0.7 (0.2-1) mg/dl AST 21 (15-37) U/L ALT 23 (12-78) U/L Alkaline Phosphatase 74 (45-117) U/L Albumin 2.8 L (3.4-5.0) gm/dl Urine 10/30/19 Range/Units 12:41 Urine Color Yellow Urine Appearance Clear (Clear) Urine pH 6.0 (4.5-7.5) Ur Specific [place] 1.036 H (1.000-1.030) Urine Protein Negative (Negative) Urine Glucose (UA) 2+ H (Negative) Diagnostic Findings Head CT: IMPRESSION: No acute intracranial findings. Head CTA: IMPRESSION: 1. Severe calcified plaque of the right carotid bulb and proximal right ICA results in approximately 50% luminal narrowing of the proximal carotid segment. 2. Mild mixed plaque of the left carotid bulb without significant stenosis. 3. Unremarkable CTA of the head. Neck CTA: IMPRESSION: 1. Severe calcified plaque of the right carotid bulb and proximal right ICA results in approximately 50% luminal narrowing of the proximal carotid segment. 2. Mild mixed plaque of the left carotid bulb without significant stenosis. 3. Unremarkable CTA of the head. CXR: IMPRESSION: No acute cardiopulmonary findings. Medications Administered Discontinued Medications Hydrocodone Bitart/Acetaminophen (Hope 5/325) 1 tab PO NOW STA Stop: 07/21/20 14:38 Last Admin: 10/30/19 14:44 Dose: 1 tab Documented by: [id number] Levofloxacin/Dextrose (Levaquin/D5w) 750 mg in 150 mls @ 100 mls/hr IV NOW STA Stop: 10/30/19 14:19 Last Infusion: 10/30/19 14:33 Dose: 0 mls/hr Documented by: [id number] Admin: 10/30/19 13:02 Dose: 100 mls/hr Documented by: [id number] Ioversol (Optiray 320 125ml) 119 ml IV ONCE PRN PRN Reason: Interaction Checking Stop: 11/03/19 09:34 Last Admin: 10/30/19 09:35 Dose: 119 ml Documented by: [id number] ECG Rate (beats per minute): 58 Rhythm: sinus bradycardia Code Status & VTE Plan Code Status DNR/DNI VTE Prophylaxis Plan VTE Prophylaxis will be ordered: Yes Supervising Physician Co-Signing Physician Notes Pt was seen and examined. Agreed with Melany GONZALES exam, assessment and plan. 69-year-old female who has significant past medical history of insulin-dependent T2DM, HTN, HLD, CKD stage III, PAF, LAQUITA on CPAP, rheumatoid arthritis, diabetic neuropathy, history of recurrent pancreatitis, history of thyroid CA status post thyroidectomy, amblyopia, history of corneal ulcer with right eye blindness, legally blind and newly dx of hepatocellular ca, recent hospitalization for urosepsis and renal calculi with stent placement presents to ED secondary to hypoglycemia. Pt said that she had 4 episodes of hypoglycemia since discharged. She said that she checked her sugar round 8pm and the sugar was 86. She said that she ate one scoop of ice cream, her BS increased in the 400's. She took 150 of Novolin before going to bed. She said that in the middle of the night she felt sweating and attempted to wake up her . She said that in the morning her found her with altered mental status and slurred speech. EMS was called and checked her BS found to be in the 60's. She was brought to the ER and stroke alert was called. CT head was negative for any acute intracranial abnormality. WBC was elevated to 23K. Currently pt back to her baseline. She said that she felt better. Very tearful because she was scared when her BS dropped in the 60 and she wants to be discharged before Tuesday to go to her appointment in [place] for the hepatocellular carcinoma to undergo mapping and IR ablation. Will consult pharmacy for hypoglycemic management and certified breastfeeding educator. Elevated WBC might be related to reactive or underlying dx of hepatocellular carcinoma. Will repeat WBC in am. Will complete the course of the Cipro. Will continue monitor closely. MD Salvador (1) Urinary tract infection Hematuria presence: without hematuria Urinary tract infection type: site unspecified Qualified Code(s): N39.0 - Urinary tract infection, site not specified
[2019-10-30] MEDS ORDERED: ALUMINUM/MAGNESIUM SUSP 30 ML UDC PO PRN (15:26)
[2019-10-30] MEDS ORDERED: DEXTROSE 50% 50 ML SYRINGE IV PRN ×2 (15:26→16:15)
[2019-10-30] MEDS ORDERED: ONDANSETRON INJ 2 MG/ML 2 ML VIAL IV PRN (15:26)
[2019-10-30] MEDS ORDERED: PHENAZOPYRIDINE HCL 100 MG TAB PO PRN (15:26)
[2019-10-30] MEDS ORDERED: ACETAMINOPHEN 325 MG TAB PO PRN (15:26)
[2019-10-30] MEDS ORDERED: LORazepam 0.5 MG TAB PO PRN (15:26)
[2019-10-30] MEDS ORDERED: GLUCOSE 40% GEL 15 GM TUBE PO PRN ×2 (15:26→16:15)
[2019-10-30] MEDS ORDERED: CARBOHYDRATES FOR HYPOGLYCEMIA PO PRN ×2 (15:26→16:15)
[2019-10-30] MEDS ORDERED: GLUCAGON FOR INJ 1 MG VIAL SQ PRN (15:26)
[2019-10-30] MEDS ORDERED: MAGNESIUM HYDROXIDE SUSP 30 ML UDC PO PRN (15:26)
[2019-10-30] MEDS ORDERED: POLYETHYLENE (MIRALAX) 17 GM PACK PO PRN (15:26)
[2019-10-30] MEDS ORDERED: GLUCOSE 10 TABS/TUBE PO PRN ×2 (15:26→16:15)
[2019-10-30] MEDS ORDERED: ALBUTEROL HFA 8 GM INHALER INH PRN (15:36)
[2019-10-30] MEDS ORDERED: PHARMACY GLYCEMIC MGMT CONSULT PRN (15:53)
[2019-10-30] MEDS ORDERED: MAGNESIUM SULFATE / D5W 1 GM/100 ML BAG IV ONE (16:00)
[2019-10-30] MEDS ORDERED: GLUCAGON FOR INJ 1 MG VIAL IM PRN (16:15)
[2019-10-30] MEDS: PANCREAZE (LIPASE 10,500U) CAP PO SCH (16:45)
[2019-10-30] MEDS: BACITRACIN/POLYMYX B OPH OINT 3.5 GM TUBE OPR SCH ×2 (16:46→20:24)
[2019-10-30] MEDS: GABAPENTIN 400 MG CAP PO SCH ×2 (16:46→21:46)
[2019-10-30] MEDS: ERYTHROMYCIN OP OINT 5 MG/GM 3.5 GM TUBE OP SCH ×2 (16:46→20:24)
[2019-10-30] MEDS: INSULIN ASPART 100 UNITS/ML 3 ML PEN SC SCH ×2 (17:43→20:26)
[2019-10-30] MEDS: INSULIN HUMAN NPH SC SCH (17:45)
[2019-10-30] MEDS: CYANOCOBALAMIN 500 MCG TABLET (VITAMIN B-12) PO SCH (20:22)
[2019-10-30] MEDS: ASPIRIN 81 MG ECTAB PO SCH (20:22)
[2019-10-30] MEDS: AMITRIPTYLINE HCL 25 MG TAB PO SCH (20:23)
[2019-10-30] MEDS: ATORVASTATIN 40 MG TAB PO SCH (20:23)
[2019-10-30] MEDS: POTASSIUM CHLORIDE 20 MEQ TABCR PO SCH (20:23)
[2019-10-30] MEDS: BRIMONIDINE TARTRATE 0.2% 5ML OPL SCH (20:24)
[2019-10-30] MEDS: TIMOLOL MALEATE 0.5% OP SOLN 5 ML BTL OP SCH (20:25)
[2019-10-30] MEDS: LATANOPROST 0.005% OP SOLN 2.5 ML BTL OP SCH (20:27)
[2019-10-30] MEDS: HYDROXYCHLOROQUINE SULFATE 200 MG TAB PO SCH (20:27)
[2019-10-30] MEDS: HYDROCODONE/ACETAMINOPHEN 10/325 TAB PO PRN (20:44)
[2019-10-30] MEDS: ENOXAPARIN INJ 40 MG/0.4 ML SYR SQ SCH (21:46)
[2019-10-31] MEDS: INSULIN ASPART 100 UNITS/ML 3 ML PEN SC SCH ×6 (00:38→20:28)
[2019-10-31] MEDS: TIZANIDINE HCL 4 MG TABLET PO PRN (03:32)
[2019-10-31 06:35] LABS: Basophils # (auto) 0.04 K/uL (0-0.2); Basophils % (auto) 0.2 %; Eosinophils # (auto) 0.23 K/uL (0-0.5); Eosinophils % (auto) 1.4 %; Hematocrit (blood only) 37.4 % (37-47); Hemoglobin 11.6 g/dL (12.0-16.0); Immature Granulocytes # (auto) 0.11 K/uL (0.00-0.02); Immature Granulocytes % (auto) 0.7 %; Lymphocytes # (auto) 2.28 K/uL (1.2-3.4); Lymphocytes % (auto) 14.2 %; Mean Corpuscular Hemoglobin 30.1 pg (25-34); Mean Corpuscular Volume 97.1 fL (80-100); Mean Platelet Volume 10.1 fL (7.4-10.4); Monocytes # (auto) 0.99 K/uL (0.11-0.59); Monocytes % (auto) 6.2 %; Neutrophils # (auto) 12.41 K/uL (1.4-6.5); Neutrophils % (auto) 77.3 %; Platelet Count 312 K/uL (130-400); RDW Coefficient of Variation 15.2 % (11.5-14.5); RDW Standard Deviation 53.5 fL (36.4-46.3); Red Blood Count 3.85 M/uL (4.2-5.4); White Blood Count 16.06 K/uL (4.8-10.8)
[2019-10-31] MEDS: LEVOTHYROXINE SODIUM 125 MCG TABLET PO SCH (06:37)
[2019-10-31 07:10] LABS: BUN Creatinine Ratio 20.6 (10-20); Calcium 9.7 mg/dl (8.5-10.1); Creatinine Clr Calc Pharmacy 74.7 ml/min; Est GFR (African American) 70.8; Est GFR (Non-African American) 61.1; Potassium 3.8 mmol/L (3.5-5.1)
[2019-10-31] MEDS: INSULIN HUMAN NPH SC SCH ×2 (08:07→17:19)
[2019-10-31] MEDS: GABAPENTIN 400 MG CAP PO SCH ×3 (08:09→20:10)
[2019-10-31] MEDS: PANTOprazole 40 MG TAB PO SCH (08:09)
[2019-10-31] MEDS: CIPROFLOXACIN 500 MG TAB PO SCH ×2 (08:09→20:11)
[2019-10-31] MEDS: FOLIC ACID 1 MG TAB PO SCH (08:10)
[2019-10-31] MEDS: FLUTICASONE PROPIONATE NA SPR 16 GM BTL NAE SCH (08:10)
[2019-10-31] MEDS: TORSEMIDE 10 MG TAB PO SCH (08:10)
[2019-10-31] MEDS: PANCREAZE (LIPASE 10,500U) CAP PO SCH ×3 (08:10→16:38)
[2019-10-31] MEDS: BRIMONIDINE TARTRATE 0.2% 5ML OPL SCH ×2 (08:11→20:13)
[2019-10-31] MEDS: POTASSIUM CHLORIDE 20 MEQ TABCR PO SCH ×2 (08:11→20:14)
[2019-10-31] MEDS: TIMOLOL MALEATE 0.5% OP SOLN 5 ML BTL OP SCH ×2 (08:11→20:12)
[2019-10-31] MEDS: predniSONE 5 MG TAB PO SCH (08:11)
[2019-10-31] MEDS: BACITRACIN/POLYMYX B OPH OINT 3.5 GM TUBE OPR SCH ×4 (08:12→20:14)
[2019-10-31] MEDS: ERYTHROMYCIN OP OINT 5 MG/GM 3.5 GM TUBE OP SCH ×4 (08:12→20:14)
[2019-10-31] MEDS ORDERED: ASCORBIC ACID 500 MG TAB PO SCH (09:00)
--- NOTE | 2019-10-31 09:42 | Pharmacy Report ---
Glycemic Control Consultation - Date of Service October 31, 2019 - Scope Scope: Glycemic Pharmacist consulted for glycemic control and to write orders per [facility] inpatient glycemic control protocol. - Objective Weight: 129.6 kg Accuchecks BSG (last 24hrs): 10/30/19 10/30/19 10/30/19 09:50 16:30 20:10 Glucose 122 H POC Glucose 179 H 193 H 10/30/19 10/31/19 10/31/19 22:04 00:05 02:13 Glucose POC Glucose 124 H 107 H 104 H 10/31/19 10/31/19 10/31/19 05:08 06:13 06:36 Glucose 117 H POC Glucose 112 H 121 H 10/31/19 07:29 Glucose POC Glucose 111 H Laboratory Data (last 24hrs): 10/30/19 10/30/19 10/31/19 09:50 11:35 06:13 Potassium 4.1 3.8 Carbon Dioxide 31 27 Anion Gap 3.0 7.0 Creatinine 0.80 0.95 Est Cr Clr Drug Dosing 88.7 74.7 - Recent Pertinent Medications Outpatient Anti-diabetic Regimen: * Novolin 70/30 - 85 units QDB/QDD, Novolin R - SS TIDM for BSG >140 - CF: 4 QDB, CF: 2 QDL/QDD. * A1c = 8.0 % 10/20/19 Risk Factors for Insulin Resistance: * Steroids: pred 5 (home dose) * Infection: cipro * Diet: yes - Assessment & Plan Assessment & Plan: ASSESSMENT: * 69 year old with PMHx significant for T2DM, htn, hld, CKD III, PAF, RA, pancreatitis, thyroid CA, legally blind, and newly dx of hepatocelllar CA. Presents to the ED with hypoglycemia. Recent hospitalization 10/19-10/25 for gm neg bacteremia/UTI * Per provider notes, patient has not been eating/drinking as much but still taking normal amount of insulin. Prior to admission BSGs in the 60s and did receive glucagon. Multiple occasions of hypoglycemia per notes prior to admission. Home regimen will need adjusted on discharge * Patient known to glycemic service from other admissions. Will switch to NPH and novolog and use similar parameters from previous admissions which resulted in good BSG control PLAN FOR INPATIENT GLYCEMIC CONTROL: * Basal insulin * NPH 25-35 units BIDM based upon BSG scale / see emar for more details * Bolus insulin * NovoLog per scale ACHS or Q6hrs while NPO * Goal Range: Low 110 mg/dL - High 140 mg/dL * Correction Factor: 15 mg/dL/unit * Nutritional / Prandial insulin per carb ratio of 1 unit per 4 grams CHO consumed PLAN FOR DISCHARGE: * A1C 8% on admission - patient with multiple episodes of hypoglycemia prior to admission - Would recommend decreased insulin on discharge * Previous admission 10/19 patient averaging about 80 units total of insulin per day. Could consider decreasing home insulin 70/30 regimen by at least ~50% on discharge and provider looser CF of 20. Patient may benefit changing to NPH and novolog, especially in setting of low BSGs with 70/30 mix insulin. * DM educator met with patient and she follows MTM clinic - patient to follow clinic post discharge for further DM monitoring/adjustment * Please note that the plan above was derived based on current level of insulin resistance and hospital stress. These recommendations are appropriate for inpatient admission only. Plan of care upon discharge will need to be reassessed to avoid potential outpatient hypo/hyperglycemia. Thank you.
[2019-10-31] MEDS: ASCORBIC ACID 500 MG TAB PO SCH (10:45)
[2019-10-31] MEDS: CEROVITE ADV FORMULA TAB PO SCH (10:45)
[2019-10-31] MEDS: FERROUS SULFATE 325 MG TAB PO SCH (12:15)
[2019-10-31] MEDS: HYDROCODONE/ACETAMINOPHEN 10/325 TAB PO PRN ×2 (15:29→23:24)
--- NOTE | 2019-10-31 17:17 | Hospitalist Progress Note ---
Date of Service October 31, 2019 Assessment & Plan (1) Hypoglycemia: -This is a 69-year-old female who has significant past medical history of insulin-dependent T2DM, HTN, HLD, CKD stage III, PAF, LAQUITA on CPAP, rheumatoid arthritis, diabetic neuropathy, history of recurrent pancreatitis, history of thyroid CA status post thyroidectomy, amblyopia, history of corneal ulcer with right eye blindness, legally blind and newly dx of hepatocellualar ca who presents to ED secondary to hypoglycemia on 10/30/2019 secondary to excess insulin use. 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 with hypoglycemia on admission -A1c on 10/20/2019 8.0 -On high dose Novolin with strict carb ratio -pharmacy glycemic consult management of blood sugars so far without repeat hypoglycemia Blisters of the feet -blisters of the feet are on the dorsal aspects of the feet bilaterally -has dressing on top of the blisters -these blisters do not appear to impede her ambulation (3) Hepatocellular carcinoma: -Newly diagnosed, following hepatology at [place] To undergo mapping and IR ablation Appointment at [place] Wednesday 11/01 (4) Bacteremia due to Gram-negative bacteria: -Patient hospitalized 10/20/19 to 10/26/19 secondary to severe sepsis, gram- negative bacteremia secondary to Klebsiella, hydroureteronephrosis secondary to right obstructive kidney stone status post cystoscopy, urethral dilation and aspiration, retrograde pyelogram and right aortic stent placement on 10/[address] Johansen. Treated with IV Cipro and transition to oral Cipro for 14 days to be completed on 11/02. Hospitalization complicated by herpes zoster treated with full course of Valtrex and has since resolved. Was discharged home on 10/26/19 (5) Right ureteral stone: Matute use -patient reports recent matute use because of kidney stones. she reports she was to follow up with [facility]rology clinic for matute re-assessment and discussion of urethral stent removal but because of [place] appointment for cancer workup, she could not make that appointment -have requested inpatient urology service to see her while at [facility] hospitalization (6) Urinary tract infection: Continue oral ciprofloxacin 500 mg twice daily and complete until 11/03/19 (7) Hypomagnesemia: -admission serum magnesium 1.7. -after supplementation, serum magnesium is 2 on 10/31/2019 (8) Congestive heart failure: -Chronic diastolic CHF- last echocardiogram 07/2016 revealed EF 50 to 54%, mild concentric LVH, grade 2 diastolic dysfunction -Continue torsemide, potassium -She is not on beta-gio as she has baseline bradycardia (9) Rheumatoid arthritis: -Continue methotrexate every Tuesday, Plaquenil, prednisone, folic acid Follows with [facility] rheumatology (10) Glaucoma: -Continue eyedrops -Legally blind; History of corneal ulcer with complete right eye blindness (11) Hypothyroidism: -Continue levothyroxine (12) Pancreatitis: History of recurrent pancreatitis -Continue Creon -currently no abdominal symptoms (13) Sleep apnea: -Compliant with CPAP at home -Refusing to use CPAP while inpatient (14) DVT prophylaxis: -Lovenox Admission and Anticipated Discharge Date Admission Date: October 30, 2019 Subjective ambulates with supervision with the walker. continues to have matute. no dizziness. no lightheadedness. no abdomen pain. no vomiting. eats the meals. no further hypoglycemia episodes so far. no chest pain. no shortness of breath. on room air. baseline poor vision Review of Systems Review of Systems: All systems reviewed & are unremarkable except as noted in Subjective Physical Exam Constitutional: + obese and comfortable Eyes: PERRL, conjunctivae normal, anicteric sclerae EOM intact bilaterally ENMT: external ear and nose normal, oropharynx normal Neck: trachea midline, no thyromegaly normal visual inspection Respiratory: normal respiratory effort, lungs clear to auscultation Cardiovascular: Rate/Rhythm: + bradycardic Gastrointestinal (Abdomen): Inspection/Auscultation: normal bowel sounds and + significant pannus Percussion/Palpation: abdomen soft Musculoskeletal: Head/Neck/Chest: normocephalic and head atraumatic Skin: blisters on dorsal area of feet are in dressing Neurologic: PERRL, EOMI, accommodation nl, no face palsy, no dysarthria Psychiatric: A+Ox3, euthymic affect Results & Data Results & Data ([facility]) Vital Signs (Past 12 Hours) Vital Signs Temp Pulse Pulse Resp BP Pulse Ox 10/31/19 15:52 37.2 C 65 19 104/55 L 93 10/31/19 15:15 69 10/31/19 11:25 36.8 C 61 20 123/79 96 10/31/19 08:50 65 10/31/19 07:40 36.9 C 65 20 123/73 96 10/31/19 05:50 68 (1) Urinary tract infection Hematuria presence: without hematuria Urinary tract infection type: site unspecified Qualified Code(s): N39.0 - Urinary tract infection, site not specified
[2019-10-31] MEDS: CYANOCOBALAMIN 500 MCG TABLET (VITAMIN B-12) PO SCH (20:10)
[2019-10-31] MEDS: ATORVASTATIN 40 MG TAB PO SCH (20:10)
[2019-10-31] MEDS: ASPIRIN 81 MG ECTAB PO SCH (20:11)
[2019-10-31] MEDS: LATANOPROST 0.005% OP SOLN 2.5 ML BTL OP SCH (20:13)
[2019-10-31] MEDS: AMITRIPTYLINE HCL 25 MG TAB PO SCH (20:14)
[2019-10-31] MEDS: HYDROXYCHLOROQUINE SULFATE 200 MG TAB PO SCH (20:14)
[2019-10-31] MEDS: ENOXAPARIN INJ 40 MG/0.4 ML SYR SQ SCH (23:25)
--- NOTE | 2019-11-01 00:40 | Consultation Report ---
DATE OF CONSULTATION: 10/31/2019 REASON FOR THE CONSULT: History of right stent placement and Red catheter placement secondary to urosepsis on 10/20/2019 and recent possible recurrence of sepsis. HISTORY OF PRESENTATION: The patient is a 69-year-old female who has a history of insulin-dependent type 2 diabetes mellitus, hypertension, HLD, chronic kidney disease stage III, PAF, LAQUITA on CPAP, rheumatoid arthritis, diabetic neuropathy, history of recurrent pancreatitis, history of thyroid cancer status post thyroidectomy, amblyopia, history of corneal ulcer with right eye blindness, legally blind, and new diagnosis of hepatocellular cancer who presents to the Emergency Room secondary to severe hypoglycemia. The patient was hospitalized from to 10/26/2019 secondary to severe sepsis, had Gram-negative bacteremia secondary to Klebsiella and obstructing right ureteral calculus that was treated with a right stent placement by Dr. Johansen. She was treated initially on Cipro and was discharged on this, her hospitalization was complicated by herpes zoster, treated with Valtrex and since resolved. She was discharged home on 10/26/2019 and had been having hypoglycemic episodes ever since. Initially it was felt that she might have a stroke, but after evaluation, she came back to baseline and apparently the CAT scan did not show anything abnormal. She was later admitted to telemetry initially for followup and has been transferred to the floor. Because of her newly diagnosed hepatocellular cancer, she is going to be treated, and cannot be followed up in the short term with Dr. Johansen as she anticipated, will discuss with Dr. Johansen in the morning whether she needs to have an indwelling Red catheter and will have to delay her treatment with probable ureteroscopy after her initial treatment with hepatocellular cancer. Her white count has increased to 23,000, which may have been a reaction to the hypoglycemia. She does have a history of CHF, glaucoma, was legally blind from this sleep apnea and DVT. Assessment, possible recurrent urosepsis versus hypoglycemia. The patient appears to be recovered in almost back to her baseline when I saw her. ALLERGIES: SHE HAS ALLERGIES TO CEPHALEXIN, CEPHALOSPORINS, LIDOCAINE, SULFA, BUTORPHANOL , CIPRO. MEDICATIONS: Please refer to the H and P for a list of her medications. PREVIOUS MEDICAL HISTORY AND SURGICAL HISTORY: Please refer to the H and P for a list of her medications. REVIEW OF SYSTEMS: All systems were reviewed and were unremarkable except for the ones noted in the history and physical. PHYSICAL EXAMINATION: GENERAL: The patient is a well-developed, obese female. HEAD: Unremarkable. EYES: Show anicteric sclerae. She appears to be legally blind. EARS, NOSE AND THROAT: Within normal limits. NECK: Shows a midline trachea. LUNGS: Normal respiratory effort. CARDIOVASCULAR: Shows bilateral trace edema. ABDOMEN: Shows obese abdomen with normal bowel sounds and nontender. MUSCULOSKELETAL: Shows minimal edema as previously stated and motor strength appears to be normal with normal range of motion. SKIN: Dry, without obvious rashes. NEUROLOGIC: She is alert and oriented without any obvious focal or sensory deficits except for blindness and is able to move all extremities. PSYCHIATRIC: She is euthymic and alert and oriented. LYMPH: No obvious cervical lymphadenopathy noted. Urine does appear to show significant glucose. Head CT was within normal limits. ASSESSMENT: Will order renal sonogram to make sure there was no fluid around her kidney. Other than this would leave the stent intact and have her follow up as soon as she can given that she has to cancel this Tuesday's visit. At that time, she will be scheduled for ureteroscopy. In the interim, we will ask Dr. Johansen that the catheter can be removed. The patient was continent prior to the procedure. Would discharge her on antibiotics pending culture results.
[2019-11-01] MEDS: TIZANIDINE HCL 4 MG TABLET PO PRN (04:21)
[2019-11-01] MEDS: LEVOTHYROXINE SODIUM 125 MCG TABLET PO SCH (05:52)
[2019-11-01] MEDS: TORSEMIDE 10 MG TAB PO SCH (07:31)
[2019-11-01] MEDS: ASCORBIC ACID 500 MG TAB PO SCH (07:31)
[2019-11-01] MEDS: FOLIC ACID 1 MG TAB PO SCH (07:31)
[2019-11-01] MEDS: predniSONE 5 MG TAB PO SCH (07:31)
[2019-11-01] MEDS: PANCREAZE (LIPASE 10,500U) CAP PO SCH ×2 (07:32→11:45)
[2019-11-01] MEDS: PANTOprazole 40 MG TAB PO SCH (07:32)
[2019-11-01] MEDS: POTASSIUM CHLORIDE 20 MEQ TABCR PO SCH (07:32)
[2019-11-01] MEDS: CIPROFLOXACIN 500 MG TAB PO SCH (07:32)
[2019-11-01] MEDS: FLUTICASONE PROPIONATE NA SPR 16 GM BTL NAE SCH (07:33)
[2019-11-01] MEDS: BRIMONIDINE TARTRATE 0.2% 5ML OPL SCH (07:33)
[2019-11-01] MEDS: GABAPENTIN 400 MG CAP PO SCH ×2 (07:33→14:04)
[2019-11-01] MEDS: TIMOLOL MALEATE 0.5% OP SOLN 5 ML BTL OP SCH (07:33)
[2019-11-01] MEDS: BACITRACIN/POLYMYX B OPH OINT 3.5 GM TUBE OPR SCH ×2 (07:34→14:04)
[2019-11-01] MEDS: ERYTHROMYCIN OP OINT 5 MG/GM 3.5 GM TUBE OP SCH ×2 (07:34→14:03)
--- NOTE | 2019-11-01 08:07 | Ultrasound Report ---
RENAL ULTRASOUND CLINICAL HISTORY: Evaluate for renal abscess. COMPARISON STUDY: CT of the abdomen and pelvis October 19, 2019. TECHNIQUE: Sonography of the kidneys and the urinary bladder was performed. FINDINGS: This exam is compromised by suboptimal penetration. The right kidney measures 11.9 x 6.3 x 7.4 cm and the left kidney measures 12.8 x 6.5 x 7.6 cm. Note is made of a 3.5 cm right renal cyst. T here is no hydronephrosis. Note is made of an apparent right perinephric fluid collection. This is re latively simple appearing. Moderate right renal cortical thinning is noted. The bladder is collapsed, containing a Red balloon. IMPRESSION: 1. Right perinephric fluid versus perinephric fluid collection. This could simply represent perinephr ic fluid. However, other etiologies such as a urinoma could appear similar. An abscess is considered less likely given the sonographic appearance however a CT of the abdomen with contrast could be obtai khoa for further evaluation. 2. No hydronephrosis. 3. Moderate right renal cortical thinning. ACT 112: Negative or not required by law. Electronically signed by: Aj Reza M.D. 11/01/2019 8:05 AM
[2019-11-01] MEDS: INSULIN ASPART 100 UNITS/ML 3 ML PEN SC SCH ×2 (08:19→12:08)
[2019-11-01] MEDS: INSULIN HUMAN NPH SC SCH (08:19)
[2019-11-01 11:18] VITALS: PULSE 63; TEMP 98.1; O2SAT 94
--- NOTE | 2019-11-01 11:38 | Hospitalist Progress Note ---
Date of Service November 01, 2019 Assessment & Plan (1) Hypoglycemia: -This is a 69-year-old female who has significant past medical history of insulin-dependent T2DM, HTN, HLD, CKD stage III, PAF, LAQUITA on CPAP, rheumatoid arthritis, diabetic neuropathy, history of recurrent pancreatitis, history of thyroid CA status post thyroidectomy, amblyopia, history of corneal ulcer with right eye blindness, legally blind and newly dx of hepatocellualar ca who presents to ED secondary to hypoglycemia on 10/30/2019 secondary to excess insulin use. Upon arrival to ED she was stroke alert secondary to slurred speech and concern for stroke but underlying diagnosis was hypoglycemia 10/30/2019 -diabetes control was managed in the hospital without further hypoglycemic episodes. -patient was evaluated by site project manager in the hospital and understands management of diabetes for the future (2) Bacteremia due to Gram-negative bacteria: -Patient hospitalized 10/20/19 to 10/26/19 secondary to severe sepsis, gram- negative bacteremia secondary to Klebsiella, hydroureteronephrosis secondary to right obstructive kidney stone status post cystoscopy, urethral dilation and aspiration, retrograde pyelogram and right aortic stent placement on 10/[address] Johansen. Treated with IV Cipro and transition to oral Cipro for 14 days to be completed on 11/02. Hospitalization complicated by herpes zoster treated with full course of Valtrex and has since resolved. Was discharged home on 10/26/19 (3) Right ureteral stone: Matute use -patient reports recent matute use because of kidney stones. she reports she was to follow up with [facility] Urology clinic for matute re-assessment and discussion of urethral stent removal but because of [place] appointment for cancer workup there was schedule conflict -have requested inpatient urology service to see her while at [facility] hospitalization and they ordered renal ultrasound 11/01/2019" "Right perinephric fluid versus perinephric fluid collection. This could simply represent perinephric fluid. However, other etiologies such as a urinoma could appear similar. An abscess is considered less likely given the sonographic appearance however a CT of the abdomen with contrast could be obtained for further evaluation. No hydronephrosis. Moderate right renal cortical thinning." -because patient has been afebrile with usual kidney function, there is no acute need for further hospital imaging as patient needs to be evaluated by [facility] in [place] in regards for workup of possible liver cancer. nurse notified [facility] urology Dr. Betancourt of hospitalist plans for discharge and he agrees for outpatient follow up without additional imaging at this time -Tuesday11/06/19 AT 3PM clinic appointment for [facility] [address], [place] [address] -patient wishes to be discharged with matute (4) Urinary tract infection: Continue oral ciprofloxacin 500 mg twice daily and complete until 11/03/19 (5) Hypomagnesemia: -admission serum magnesium 1.7. -after supplementation, serum magnesium is 2 on 10/31/2019 (6) Congestive heart failure: -Chronic diastolic CHF- last echocardiogram 07/2016 revealed EF 50 to 54%, mild concentric LVH, grade 2 diastolic dysfunction -Continue torsemide, potassium -She is not on beta-gio as she has baseline bradycardia (7) Diabetes mellitus, type 2: Type 2 diabetes mellitus with correction current use of insulin with hypoglycemia on admission -A1c on 10/20/2019 8.0, On high dose Novolin with strict carb ratio at home -pharmacy glycemic consult management of blood sugars so far without repeat hypoglycemia, patient was evaluated by site project manager in the hospital and understands management of diabetes for the future Blisters of the feet -blisters of the feet are on the dorsal aspects of the feet bilaterally -has dressing on top of the blisters -these blisters do not appear to impede her ambulation -wound care nurse evaluated the blisters on the dorsal aspects of the feet bilaterally on 11/01/2019 and reports suboptimal ankle brachial index of left ankle as 0.65 and right ankle as 0.81 but that patient has appointment on 11/05/19 AT 1PM [facility] [address], [place] [address] and can follow up for these issues (8) Rheumatoid arthritis: -Continue methotrexate every Tuesday, Plaquenil, prednisone, folic acid Follows with [facility] rheumatology (9) Glaucoma: -Continue eyedrops -Legally blind; History of corneal ulcer with complete right eye blindness (10) Hypothyroidism: -Continue levothyroxine (11) Pancreatitis: History of recurrent pancreatitis -Continue Creon -currently no abdominal symptoms (12) Sleep apnea: -Compliant with CPAP at home -Refusing to use CPAP while inpatient (13) Hepatocellular carcinoma: -Newly diagnosed, following hepatology at [place] To undergo mapping and IR ablation Appointment at [place] Wednesday 11/01 (14) DVT prophylaxis: -Lovenox Admission and Anticipated Discharge Date Admission Date: October 30, 2019 Subjective no acute distress. no hypoglycemia. no chest pain. no shortness of breath. no dizziness. no vomiting. no abdominal pain. no headache. discharge plans discussed at length. patient wishes to be discharged with matute Review of Systems Review of Systems: All systems reviewed & are unremarkable except as noted in Subjective Physical Exam Constitutional: + obese and comfortable Eyes: PERRL, conjunctivae normal, anicteric sclerae EOM intact bilaterally ENMT: external ear and nose normal, oropharynx normal Neck: trachea midline, no thyromegaly normal visual inspection Respiratory: normal respiratory effort, lungs clear to auscultation Cardiovascular: Rate/Rhythm: + bradycardic Gastrointestinal (Abdomen): Inspection/Auscultation: normal bowel sounds and + significant pannus Percussion/Palpation: abdomen soft Musculoskeletal: Head/Neck/Chest: normocephalic and head atraumatic Neurologic: PERRL, EOMI, accommodation nl, no face palsy, no dysarthria Psychiatric: A+Ox3, euthymic affect Results & Data Results & Data ([facility]) Vital Signs (Past 12 Hours) Vital Signs Temp Pulse Pulse Resp BP BP Pulse Ox 11/01/19 11:17 36.7 C 63 18 137/69 94 11/01/19 08:15 49 L 11/01/19 03:45 36.6 C 74 20 127/67 99 11/01/19 02:09 75 (1) Urinary tract infection Hematuria presence: without hematuria Urinary tract infection type: site unspecified Qualified Code(s): N39.0 - Urinary tract infection, site not speci fied
[2019-11-01] MEDS: FERROUS SULFATE 325 MG TAB PO SCH (11:45)
[2019-11-01] MEDS: CEROVITE ADV FORMULA TAB PO SCH (11:45)
--- NOTE | 2019-11-01 12:13 | Discharge Summary ---
Date of Service November 01, 2019 Admission HPI Per Admitting Provider This is a 69-year-old female who has significant past medical history of insulin-dependent T2DM, HTN, HLD, CKD stage III, PAF, LAQUITA on CPAP, rheumatoid arthritis, diabetic neuropathy, history of recurrent pancreatitis, history of thyroid CA status post thyroidectomy, amblyopia, history of corneal ulcer with right eye blindness, legally blind and newly dx of hepatocellualar ca who presents to ED secondary to hypoglycemia. Of significance patient was recently hospitalized 10/19 to 10/25 secondary to severe sepsis, gram-negative bacteremia, complicated UTI secondary to right obstructive stone with hydroureteronephrosis status post cystoscopy with stent placement, Matute catheter placement, diagnosis of shingles and ALONA on CKD. She was initially placed on IV Cipro which was transitioned to oral Cipro that she has been tolerating as outpatient twice a day. She was started on Valtrex for shingles which has since resolved and she completed course. She is overall been feeling well although appetite has been decreased. She has not been eating and drinking as much but still taking her normal amount of insulin. Patient actually was a stroke alert secondary to altered mental status and slurred speech. She states last night around 10 AM prior to going to bed her blood sugar was 400. She took her usual 85 units of Novolin at dinner although did not eat very much. She then ate a bowl of ice cream around 8 or 9 PM. At 10 PM prior to bed due to hyperglycemia she took 150 unit of Novolin R. She woke up this morning and what she thinks was approximately 3 AM when she felt very diaphoretic, ill and lightheaded. She was trying to get her 's attention but was unable to do so. He eventually this morning found her altered with slurred speech and called 911. When EMS arrived she heard her blood sugar was in the 60s. She did receive glucagon which improved symptoms. Currently during my evaluation she feels well. Denies any fever since discharge and of the decreased appetite has been doing well. She denies any lightheadedness, dizziness, syncope, chest pain, shortness breath, cough, nausea, vomiting, abdominal pain, diarrhea. Last BM was this morning. Continues to have Matute catheter in place. She is to follow-up with urology outpatient on Tuesday. She is very conflicted as she also has IR at [place] follow-up on Tuesday and does not know what to do. In regards to her diabetes she has been taking Novolin 85 units twice daily, and Novolin R sliding scale with meals with a 1-2 carb ratio. She has been dealing with low blood sugars on 4 different occasions since discharge and feels maybe her carb ratio is too tight. She is concerned with going home given her recent episode of hypoglycemia. In ED she remained hemodynamically stable and glucose upon admission is 122. Lab work notable for leukocytosis 23,210, H&H 12.8 and 40.4, platelet 287, BUN 19, creatinine 0.80, glucose 122, mag 1.7, urinalysis trace blood and numerous epithelial cells, negative bacteria. Given worsening leukocytosis since discharge she did receive IV Levaquin while in ED. Principal Diagnosis -Type 2 diabetes mellitus with emt intermediate current use of insulin with hypoglycemia on admission -Blisters of the feet -prior hospitalization and treatment for sepsis, gram-negative bacteremia secondary to Klebsiella, hydroureteronephrosis secondary to right obstructive kidney stone status post cystoscopy, urethral dilation and aspiration, retrograde pyelogram and right aortic stent placement on 10/20/19; currently still on antibiotics for urinary tract infection of Klebsiella Discharge Exam Constitutional + obese and comfortable Eyes PERRL, conjunctivae normal, anicteric sclerae EOM intact bilaterally ENMT external ear and nose normal, oropharynx normal Neck trachea midline, no thyromegaly normal visual inspection Respiratory normal respiratory effort, lungs clear to auscultation Cardiovascular Rate/Rhythm: + bradycardic Gastrointestinal (Abdomen) Inspection/Auscultation: normal bowel sounds and + significant pannus Percussion/Palpation: abdomen soft Musculoskeletal Head/Neck/Chest: normocephalic and head atraumatic Neurologic PERRL, EOMI, accommodation nl, no face palsy, no dysarthria Psychiatric A+Ox3, euthymic affect Discharge Data Allergies Allergy/AdvReac Type Severity Reaction Status Date / Time cephalexin Allergy Severe Anaphylaxis Verified 10/30/19 11:58 Cephalosporins Allergy Severe Anaphylaxis Verified 10/30/19 11:58 lidocaine [From Lidoderm] Allergy Intermediate Rash Verified 10/30/19 11:58 Sulfa (Sulfonamide Allergy Intermediate Hives Verified 10/30/19 11:58 Antibiotics) butorphanol AdvReac Intermediate RAPID HEART Verified 10/30/19 11:58 Cipro AdvReac Mild nausea Verified 04/12/17 12:39 ciprofloxacin AdvReac Mild nausea Verified 10/30/19 11:58 Consultations 10/30/19 12:50 ED Decision to Admit Stat 10/31/19 07:34 Consult Case Management - Discharge Planning Routine 10/31/19 09:44 Consult Urology Routine Ordered Studies 10/30/19 09:28 CT angio head w con Stat CT angio neck with con Stat CT head/brain wo con Stat 10/31/19 22:03 US renal/blad retro comp Routine Hospital Course (1) Hypoglycemia: -This is a 69-year-old female who has significant past medical history of insulin-dependent T2DM, HTN, HLD, CKD stage III, PAF, LAQUITA on CPAP, rheumatoid arthritis, diabetic neuropathy, history of recurrent pancreatitis, history of thyroid CA status post thyroidectomy, amblyopia, history of corneal ulcer with right eye blindness, legally blind and newly dx of hepatocellualar ca who presents to ED secondary to hypoglycemia on 10/30/2019 secondary to excess insulin use. Upon arrival to ED she was stroke alert secondary to slurred speech and concern for stroke but underlying diagnosis was hypoglycemia 10/30/2019 -diabetes control was managed in the hospital without further hypoglycemic episodes. -patient was evaluated by public health educator in the hospital and understands management of diabetes for the future (2) Bacteremia due to Gram-negative bacteria: -Patient hospitalized 10/20/19 to 10/26/19 secondary to severe sepsis, gram- negative bacteremia secondary to Klebsiella, hydroureteronephrosis secondary to right obstructive kidney stone status post cystoscopy, urethral dilation and aspiration, retrograde pyelogram and right aortic stent placement on 10/[address] Johansen. Treated with IV Cipro and transition to oral Cipro for 14 days to be completed on 11/02. Hospitalization complicated by herpes zoster treated with full course of Valtrex and has since resolved. Was discharged home on 10/26/19 (3) Right ureteral stone: Matute use -patient reports recent matute use because of kidney stones. she reports she was to follow up with [facility] clinic for matute re-assessment and discussion of urethral stent removal but because of [place] appointment for cancer workup there was schedule conflict -have requested inpatient urology service to see her while at [facility] hospitalization and they ordered renal ultrasound 11/01/2019" "Right perinephric fluid versus perinephric fluid collection. This could simply represent perinephric fluid. However, other etiologies such as a urinoma could appear similar. An abscess is considered less likely given the sonographic appearance however a CT of the abdomen with contrast could be obtained for further evaluation. No hydronephrosis. Moderate right renal cortical thinning." -because patient has been afebrile with usual kidney function, there is no acute need for further hospital imaging as patient needs to be evaluated by [facility] in [place] in regards for workup of possible liver cancer. nurse notified [facility] urology Dr. Betancourt of hospitalist plans for discharge and he agrees for outpatient follow up without additional imaging at this time -Tuesday11/06/19 AT 3PM clinic appointment for [facility] [address] [place] [address], [place] [address] -patient wishes to be discharged with matute (4) Urinary tract infection: Continue oral ciprofloxacin 500 mg twice daily and complete until 11/03/19 (5) Hypomagnesemia: -admission serum magnesium 1.7. -after supplementation, serum magnesium is 2 on 10/31/2019 (6) Congestive heart failure: -Chronic diastolic CHF- last echocardiogram 07/2016 revealed EF 50 to 54%, mild concentric LVH, grade 2 diastolic dysfunction -Continue torsemide, potassium -She is not on beta-gio as she has baseline bradycardia (7) Diabetes mellitus, type 2: Type 2 diabetes mellitus with emt intermediate current use of insulin with hypoglycemia on admission -A1c on 10/20/2019 8.0, On high dose Novolin with strict carb ratio at home -pharmacy glycemic consult management of blood sugars so far without repeat hypoglycemia, patient was evaluated by public health educator in the hospital and understands management of diabetes for the future Blisters of the feet -blisters of the feet are on the dorsal aspects of the feet bilaterally -has dressing on top of the blisters -these blisters do not appear to impede her ambulation -wound care nurse evaluated the blisters on the dorsal aspects of the feet bilaterally on 11/01/2019 and reports suboptimal ankle brachial index of left ankle as 0.65 and right ankle as 0.81 but that patient has appointment on Tuesday11/05/19 AT 1PM [facility] [address], [place] [address] and can follow up for these issues (8) Rheumatoid arthritis: -Continue methotrexate every Tuesday, Plaquenil, prednisone, folic acid Follows with [facility] rheumatology (9) Glaucoma: -Continue eyedrops -Legally blind; History of corneal ulcer with complete right eye blindness (10) Hypothyroidism: -Continue levothyroxine (11) Pancreatitis: History of recurrent pancreatitis -Continue Creon -currently no abdominal symptoms (12) Sleep apnea: -Compliant with CPAP at home -Refusing to use CPAP while inpatient (13) Hepatocellular carcinoma: -Newly diagnosed, following hepatology at [place] To undergo mapping and IR ablation Appointment at [place] Wednesday 11/01 (14) DVT prophylaxis: -Lovenox Total Time Total Time Spent Total Time Spent (In Minutes): 40 minutes Total Time Includes: Examination of the Patient, Discharge Planning, Medication Reconciliation and Communication With Other Providers Discharge Plan Discharge Items Patient Disposition: Home - Home Health Services Reason For Visit: HYPOGLYCEMIA 2\\2 TO INSULIN EXCESS Discharge Diagnosis: -Type 2 diabetes mellitus with jail current use of insulin with hypoglycemia on admission -Blisters of the feet -prior hospitalization and treatment for sepsis, gram-negative bacteremia secondary to Klebsiella, hydroureteronephrosis secondary to right obstructive kidney stone status post cystoscopy, urethral dilation and aspiration, retrograde pyelogram and right aortic stent placement on 10/20/19; currently still on antibiotics for urinary tract infection of Klebsiella Condition on Discharge: Good Activity: Per Instructions section Non-emergency contact: Primary Care Provider, Specialist and Urologist Call non-emergency contact if: you have any medication questions Follow-up/Referrals: David Umanzor MD [Primary Care Provider] - Diet: Carb Consistent or DM2 Addtl Attending Provider Instructions: discharge to home with home health services re-established by hospital case management -patient was evaluated by public health educator in the hospital and understands management of diabetes for the future -Continue oral ciprofloxacin 500 mg twice daily and complete until 11/03/19 SCHEDULED APPOINTMENTS Interventional Radiology Exam [facility] Tuesday11/02/2019 -wound care nurse evaluated the blisters on the dorsal aspects of the feet bilaterally on 11/01/2019 and reports suboptimal ankle brachial index of left ankle as 0.65 and right ankle as 0.81 but that patient has appointment on Tuesday11/05/19 AT 1PM [facility] [address], [place], [place] [id number] and can follow up for these issues -Tuesday11/06/19 AT 3PM clinic appointment for [facility] [address] , [place] [address] 11/08/2019 11:20 AM Provider David Umanzor MD Department [facility] 11/22/2019 8:30 AM Provider [facility] [place] Interventional Radiology [facility] 1[facility] 11/23/2019 1:00 PM Provider [facility] Pharm[facility], [facility] Cleaning Attendant Provider Instructions: -have requested inpatient urology service to see her while at [facility] hospitalization and they ordered renal ultrasound 11/01/2019" "Right perinephric fluid versus perinephric fluid collection. This could simply represent perinephric fluid. However, other etiologies such as a urinoma could appear similar. An abscess is considered less likely given the sonographic appearance however a CT of the abdomen with contrast could be obtained for further evaluation. No hydronephrosis. Moderate right renal cortical thinning." -because patient has been afebrile with usual kidney function, there is no acute need for further hospital imaging as patient needs to be evaluated by [facility] in [place] in regards for workup of possible liver cancer. nurse notified [facility] urology Dr. Beatncourt of hospitalist plans for discharge and he agrees for outpatient follow up without additional imaging at this time Pending Studies at Discharge: No Stand-Alone Forms: [facility], Smoking Cessation Medications and DC Order Prescriptions: Continued atorvastatin 40 mg Tablet 40 mg PO HS RF: 0 ascorbic acid (vitamin C) 1,000 mg Tablet 1 g PO QAM RF: 0 albuterol sulfate 2.5 mg /3 mL (0.083 %) Solution For Nebulization 2.5 mg INHALATION Q4 PRN (Reason: Wheezing) RF: 0 gabapentin 400 mg Capsule 400 mg PO TID RF: 0 prednisone 5 mg Tablet 5 mg PO QAM RF: 0 Novolin 70/30 U-100 Insulin 100 unit/mL (70-30) Suspension 85 unit SUBCUT BID RF: 0 cyanocobalamin (vitamin B-12) 1,000 mcg Tablet 1,000 mcg PO QPM RF: 0 torsemide 10 mg Tablet 20 mg PO QAM RF: 0 amitriptyline 25 mg Tablet 25 mg PO HS RF: 0 lorazepam 0.5 mg Tablet 0.5 mg PO TID PRN (Reason: Anxiety) RF: 0 methotrexate sodium 2.5 mg Tablet 15 mg PO WK RF: 0 meclizine 25 mg Tablet 25 mg PO TID PRN (Reason: Dizziness) RF: 0 timolol 0.5 % Drops 1 drp OPL BID RF: 0 erythromycin 5 mg/gram (0.5 %) Ointment 1 applic OPHTHALMIC (EYE) QID RF: 0 ferrous sulfate 325 mg (65 mg iron) Tablet 325 mg PO 1200 RF: 0 levothyroxine 125 mcg Tablet 125 mcg PO QAM RF: 0 Novolin R Regular U-100 Insuln 100 unit/mL Solution 1 sliding scale dose SUBCUT QID RF: 0 nitroglycerin 0.4 mg Tablet, Sublingual 0.4 mg sublingual UD PRN (Reason: Angina) RF: 0 aspirin [Aspirin Childrens] 81 mg Tablet,Chewable 162 mg PO HS RF: 0 folic acid 1 mg Tablet 1 mg PO QAM RF: 0 hydroxychloroquine [Plaquenil] 200 mg Tablet 400 mg PO HS RF: 0 albuterol sulfate [ProAir HFA] 90 mcg/actuation Hfa Aerosol Inhaler 2 puff INHALATION QID RF: 0 fluticasone propionate [Flonase Allergy Relief] 50 mcg/actuation Electra,Suspension 2 spray INTRANASAL QAM RF: 0 multivitamin with iron Tablet 1 tab PO QDL RF: 0 omeprazole 20 mg Tablet,Delayed Release (Dr/Ec) 20 mg PO QAM RF: 0 Biotene Moisturizing Mouth Electra,Non-Aerosol 1 spray MUCOUS MEMBRANE QID RF: 0 Creon 24,000-76,000 -120,000 unit Capsule,Delayed Release(Dr/Ec) 1 cap PO AC RF: 0 potassium chloride 20 mEq Tablet Extended Release 20 meq PO BID RF: 0 latanoprost (PF) 0.005 % Drops 1 drp OPHTHALMIC (EYE) HS RF: 0 brimonidine 0.2 % drops 1 drp OPL BID RF: 0 tizanidine 2 mg tablet 2 mg PO Q6 PRN (Reason: Muscle Spasm) RF: 0 ergocalciferol (vitamin D2) 1,250 mcg (50,000 unit) Capsule 1,250 mcg PO WK RF: 0 cyanocobalamin (vitamin B-12) [Vitamin B-12] 1,000 mcg Tablet 1,500 mcg PO DAILY RF: 0 bacitracin-polymyxin B 500-10,000 unit/gram Ointment 3.5 g OPR QID RF: 0 phenazopyridine [Pyridium] 100 mg Tablet 100 mg PO TID PRN (Reason: bladder spasm) 5 Days Qty: 15 RF: 0 hydrocodone-acetaminophen 10-325 mg Tablet 1 tab PO Q6 PRN (Reason: Pain) RF: 0 ciprofloxacin HCl [Cipro] 500 mg Tablet 500 mg PO Q12H RF: 0 Discontinued acetaminophen [Tylenol Arthritis Pain] 650 mg Tablet Extended Release 1,300 mg PO HS RF: 0 Discharge Orders: Discharge Order (Routine); Ordered 11/01/19 Ordered By: Satnam Roa Admission Data Admit Date/Time: 10/30/19 13:49 Attending Provider: Satnam Roa Admit Provider: Tia Franco Primary Care Provider: David Umanzor Other Providers: Gideon Steiner ; Sarath Retana ; [facility],[employer]
[2019-11-01 13:47] VITALS: BP 127/67
[2019-11-06] MEDS ORDERED: metHOTREXate sodium 2.5 MG TAB PO SCH (09:00)
== END 2019-11-01 14:14 | disposition home health service (06) ==
LOC: ED 09:29 → 2W 09:29 → SUATTDRO 13:49 → 2W 14:59

== ENCOUNTER 2021-08-30 15:06 | Inpatient (IN) ==
[2021-08-30] MEDS ORDERED: ONDANSETRON INJ 2 MG/ML 2 ML VIAL IV STA (15:38)
[2021-08-30] MEDS ORDERED: SODIUM CHLORIDE 0.9% 500 ML IV STA (15:38)
[2021-08-30 16:16] LABS: Basophils # (auto) 0.01 K/uL (0-0.2); Basophils % (auto) 0.1 %; Eosinophils # (auto) 0.03 K/uL (0-0.5); Eosinophils % (auto) 0.2 %; Hematocrit (blood only) 33.2 % (37-47); Hemoglobin 11.3 g/dL (12.0-16.0); Immature Granulocytes # (auto) 0.09 K/uL (0.00-0.02); Immature Granulocytes % (auto) 0.5 %; Lymphocytes # (auto) 0.69 K/uL (1.2-3.4); Lymphocytes % (auto) 3.6 %; Mean Corpuscular Hemoglobin 31.3 pg (25-34); Mean Platelet Volume 10.6 fL (7.4-10.4); Monocytes # (auto) 1.93 K/uL (0.11-0.59); Neutrophils # (auto) 16.46 K/uL (1.4-6.5); Neutrophils % (auto) 85.6 %; Platelet Count 188 K/uL (130-400); RDW Coefficient of Variation 14.6 % (11.5-14.5); RDW Standard Deviation 49.1 fL (36.4-46.3); Red Blood Count 3.61 M/uL (4.2-5.4); White Blood Count 19.21 K/uL (4.8-10.8)
--- NOTE | 2021-08-30 16:19 | Emergency Department Note ---
Impression & Plan ALONA (acute kidney injury), Kidney stone on right side, Acute hyponatremia, Acute pyelonephritis, Vomiting ED Provider Note NAME: LEON MCKEON AGE: 71 SEX: F : 1950 ARRIVES VIA: Walk-In INFORMANT: Patient, ED PROVIDER(S): Srini Pedraza DO CHIEF COMPLAINT: Nausea and vomiting HPI: The patient is a 71-year-old female who presented to the emergency department for an evaluation of nausea vomiting. The patient states that she had a contrasted CT done on Tuesday at [facility]. She has a history of liver cancer which is followed with serial CAT scans. She had a most recent one this week. She does not know the report as of yet. The patient denies having any fever but she started noticing nausea and vomiting symptoms directly after the CAT scan. She is called her on-call doctor. She does not appear to have any signs of allergic reaction but she states her skin is very tight and she has had decreased p.o. intake as well as decreased urine output. She notices lower extremity swelling. She denies having any chest pain but has had some difficulty breathing. ROS: See above HPI for pertinent positives & negatives. A total of 10 systems reviewed and were otherwise negative. PAST MEDICAL HISTORY: See Below PAST SURGICAL HISTORY: See Below FAMILY HISTORY: See Below SOCIAL HISTORY: See Below HOME MEDICATIONS: See Below ALLERGIES: See Below VITALS: See Below PHYSICAL EXAMINATION: GENERAL: Patient is awake alert in no acute distress patient is resting comfortably and showing no signs of anxiety EYES: Patient has history of blindness. She does have her eyes shot bi laterally. There is no swelling or erythema noted over the eyelids. EARS, NOSE, MOUTH AND THROAT: The nose is without any evidence of any deformity. Mucous membranes are moist. Tongue is midline. NECK: The neck is nontender and supple. RESPIRATORY: Normal respiratory effort is noted there is no evidence of wheezing rhonchi or rales CARDIOVASCULAR: Regular rate and rhythm noted there no murmurs rubs or gallops normal S1 normal S2. GASTROINTESTINAL: The abdomen was soft and mildly distended. There is diffuse tenderness to palpation but no guarding rigidity. MUSCULOSKELETAL/EXTREMITIES: There is no evidence of gross deformity full range of motion is noted in the hips and shoulders. SKIN: The skin is warm and dry. Pedal edema was noted bilaterally. NEUROLOGIC: Patient is awake alert and oriented x3. Strength is symmetric. MEDICAL DECISION MAKING: The patient is a 71-year-old female who presented to emergency department for an evaluation of nausea and vomiting. The patient had a CAT scan of the abdomen and pelvis using IV contrast recently. She thought this was causing some of her symptoms. She has had nausea and vomiting. She did not have a surgical abdomen on physical exam. I discussed the patient's laboratory and radiographic studies with her. She was treated with IV fluids and IV antibiotics for presumed urinary tract infection. She was found to have an acute elevation in her creatinine compared to baseline. She was also hyponatremic. I do feel this could explain the patient's symptoms. The [facility] Hospitalist group was notified about the patient. Triage Nursing notes reviewed. Prior medical records reviewed Vital Signs: reviewed and remarkable for no significant abnormalities Differential diagnosis: Gastroenteritis, food borne illness, infections, appendicitis, diverticulitis, inflammatory bowel disease, obstruction, GI bleed, biliary pathology, volvulus, as well as other pathologies. ER treatment provided: See below Diagnostics interpreted by me: ECG: EKG was obtained in the emergency department. My interpretation is sinus rhythm at 65 bpm. PVCs were noted. Nonspecific ST segment abnormalities were noted. Poor R wave progression was noted. This was compared to a tracing from November 22, 2019. No changes were noted. Cardiac Monitoring: An order was placed for continuous cardiac monitoring. The monitor shows a rate of 60 bpm with sinus rhythm. Laboratory studies: As stated above and show below. Imaging studies: See below Consultation(s): The [facility] hospitalist was notified about the patient they will evaluate the patient in the emergency department. Past Med/Surg History Medical History Anemia Blindness Left eye (since ) Chronic back pain Chronic kidney disease, stage 3 Chronic steroid use Congestive heart failure Hx Diabetes mellitus, type 2 IDDM Diabetic neuropathy Diabetic retinopathy Glaucoma Hernia Current History of atrial fibrillation Single, brief episode (2018) Per 04/13/17 cardio note- ECHO reviewed, due to polypharmacy and confusion- recommended observation without additional procedures or cardiac medications at this time History of cancer 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), s/p surgical intervention History of gastric ulcer History of sinus problem Reason for nebulizer and inhalers prn Hyperlipidemia Hypertension Hypothyroidism Indwelling Red catheter present Ischemic cardiomyopathy Kidney stones Liver cancer Stage 1, under surveillance Migraine Myocardial Infarction Remote silent MS (10+ years ago) Pancreatic lesion Under surveillance, "no current cancer characteristics" Pancreatitis Mutliple, 15+ episodes (no current issues) Rheumatoid arthritis on Plaquenil, MTX, prednisone 5mg daily Sleep apnea CPAP SOB (shortness of breath) on exertion Transient ischemic attack (TIA) ? TIA vs CVA x2 (20+ years ago), no deficits Surgical History History of appendectomy History of bilateral cataract extraction History of biopsy of bladder showed chronic cystitis History of carpal tunnel release of both wrists History of cholecystectomy History of colonoscopy History of cystoscopy WITH STENT INSERTION X MULTIPLE History of cystoscopy Cystoscopy, right stent, right laser lithotripsy (08/11/2020): LMA 4.0 unique, atraumatic, LMA attempt x1 at [facility]. No issues per postop anesthesia progress note. History of detached retina repair x4 on right eye History of dilatation and curettage x3 History of ERCP History of esophagogastroduodenoscopy (EGD) History of liver biopsy X 2 History of lumbar discectomy History of partial thyroidectomy right side and ismis removed d/t papillary cancer History of tarsorrhaphy BILT--right eye closed shut, left eye partly closed History of tooth extraction all top teeth, most of bottom History of total hysterectomy with bilateral salpingo-oophorectomy (BSO) Nausea and vomiting after administration of anesthetic agent S/P appendectomy S/P foot surgery, left "stepped on a needle and had to have it removed" Status post laser lithotripsy of ureteral calculus x3 -> November 2019, December 2019, August 2020 Family History Father Family history of diabetes mellitus Family history of reaction to anesthesia difficulty waking Mother Family history of diabetes mellitus Sister Family history of diabetes mellitus Brother Family history of diabetes mellitus Grandmother (Maternal) Family history of diabetes mellitus Grandmother (Paternal) Family history of diabetes mellitus Son Family history of diabetes mellitus Social History Smoking Status: Never smoker Second Hand Exposure: Yes; Hx Alcohol Use: No Hx Substance Use: No Preferred Language: Sami Communication Ability: Effective Communication Tools: Other Visual Impairment: Blindness Pastry Mixer Required: No Beliefs That Will Affect Care: None marital status: Current Living Situation: Spouse Feels Safe at Home: Yes Assistive Devices: Cane, Denture - Upper, Denture - Lower and Walker Allergies Allergies Allergy/AdvReac Type Severity Reaction Status Date / Time cephalexin Allergy Severe Anaphylaxis Verified 08/30/21 18:06 Cephalosporins Allergy Severe Anaphylaxis Verified 08/30/21 18:06 lidocaine [From Lidoderm] Allergy Intermediate Rash Verified 08/30/21 18:06 Sulfa (Sulfonamide Allergy Intermediate Hives Verified 08/30/21 18:06 Antibiotics) butorphanol AdvReac Intermediate Rapid heart Verified 08/30/21 18:06 ciprofloxacin AdvReac Mild Nausea Verified 08/30/21 18:06 Home Meds Home Medications Medication Instructions Recorded Confirmed albuterol sulfate 2.5 mg INHALATION Q4 PRN 11/02/18 08/30/21 albuterol sulfate 90 mcg/actuation 2 puff INHALATION QID 11/02/18 08/30/21 aerosol inhaler (ProAir HFA) ascorbic acid (vitamin C) 1,000 mg 1,000 g PO QAM 11/02/18 08/30/21 tablet aspirin 81 mg chewable tablet 162 mg PO 11/02/18 08/30/21 (Aspirin Childrens) atorvastatin 40 mg tablet 40 mg PO QAM 11/02/18 08/30/21 erythromycin 5 mg/gram (0.5 %) eye 1 applic OPL QID 11/02/18 08/30/21 ointment fluticasone propionate 50 2 spray INTRANASAL QA 11/02/18 08/30/21 mcg/actuation nasal spray,suspension (Flonase Allergy Relief) folic acid 1 mg tablet 1 mg PO QAM 11/02/18 08/30/21 gabapentin 400 mg capsule 400 mg PO TID 11/02/18 08/30/21 hydroxychloroquine 200 mg tablet 400 mg PO 11/02/18 08/30/21 (Plaquenil) insulin human U-100 NPH-regulr 68 unit SUBCUT BID 11/02/18 08/30/21 70-30 mix 100 unit/mL subcutaneous susp (Novolin 70/30 U-100 Insulin) insulin regular human 100 unit/mL 1 sliding scale dose SUBCUT UD 11/02/18 08/30/21 injection solution (Novolin R Regular U-100 Insulin) latanoprost (PF) 0.005 % eye drops 1 drp OPB HS 11/02/18 08/30/21 levothyroxine 125 mcg tablet 125 mcg PO DAILYBB 11/02/18 08/30/21 cketre-hzziswae-dsqpubt 1 cap PO .WITH MEALS & SNACKS 11/02/18 08/30/21 24,000-76,000-120,000 unit capsule,delayed rel (Creon) lorazepam 0.5 mg tablet 0.5 mg PO TID PRN 11/02/18 08/30/21 meclizine 25 mg tablet 25 mg PO TID PRN 11/02/18 08/30/21 methotrexate sodium 2.5 mg tablet 15 mg PO WK 11/02/18 08/30/21 multivitamin with iron 1 tab PO QAM 11/02/18 08/30/21 nitroglycerin 0.4 mg sublingual 0.4 mg SUBLINGUAL UD PRN 11/02/18 08/30/21 tablet omeprazole 20 mg tablet,delayed 20 mg PO QAM 11/02/18 08/30/21 release prednisone 5 mg tablet 5 mg PO QAM 11/02/18 08/30/21 saliva stimulant comb. no.3 1 spray MUCOUS MEMBRANE QID 11/02/18 08/30/21 (Biotene Moisturizing Mouth) torsemide 10 mg tablet 10 mg PO QAM 11/02/18 08/30/21 bacitracin-polymyxin B 500 3.5 g OPR TID 10/20/19 08/30/21 unit-10,000 unit/gram eye ointment (Polycin) brimonidine 0.2 % eye drops 1 drp OPL BID 10/20/19 08/30/21 cyanocobalamin (vitamin B-12) 1,500 mcg PO QPM 10/20/19 08/30/21 1,000 mcg tablet (Vitamin B-12) tizanidine 2 mg tablet 2 mg PO Q6 PRN 10/20/19 08/30/21 insulin syringe-needle U-100 1 mL #10 ea 11/09/19 08/30/21 31 gauge x 5/16" cholecalciferol (vitamin D3) 125 50,000 unit PO WK 01/07/20 08/30/21 mcg (5,000 unit) tablet (Vitamin D3) lisinopril 5 mg tablet 5 mg PO QAM 07/22/20 08/30/21 hydrocodone 5 mg-acetaminophen 325 1 tab PO Q6 PRN 03/26/21 08/30/21 mg tablet melatonin 5 mg tablet 5 mg PO HS 03/30/21 08/30/21 Probiotic Daily 1 cap PO DAILY 08/30/21 08/30/21 betaxolol 0.5 % eye drops 1 drp OPL BID 08/30/21 08/30/21 magnesium oxide 400 mg (241.3 mg 400 mg PO 3XWK 08/30/21 08/30/21 magnesium) tablet netarsudil 0.02 % eye drops 1 drp OPL HS 08/30/21 08/30/21 (Rhopressa) potassium chloride 20 mEq 20 meq PO QAM 08/30/21 08/30/21 tablet,extended release(part/cryst) Results & Data (ED) Vital Signs Vital Signs - 24 hr 08/30/21 15:09 08/30/21 15:39 08/30/21 15:58 Temperature 36.6 C Temperature Source Temporal Artery Scan Pulse Rate 64 72 60 Pulse Rate [Finger] Pulse Rate from SpO2 Sensor 60 Pulse Rhythm Regular Respiratory Rate 18 20 19 Respiratory Effort / Characteristics Respiratory Depth Blood Pressure 130/58 L Blood Pressure [Right Arm] Blood Pressure Mean 82 Blood Pressure Mean [Right Arm] Blood Pressure Position [Right Arm] Pulse Oximetry 96 97 99 Oxygen Delivery Method Room Air Room Air Sepsis Recent Fever Within 48 Hours No Sepsis New/Unexplained Change in Mental Status No Sepsis Action Taken by Nursing No Action Required 08/30/21 16:00 08/30/21 16:44 08/30/21 16:50 Temperature Temperature Source Pulse Rate 61 65 66 Pulse Rate [Finger] Pulse Rate from SpO2 Sensor 59 L 66 Pulse Rhythm Respiratory Rate 20 18 24 Respiratory Effort / Characteristics Respiratory Depth Blood Pressure 109/73 117/56 L Blood Pressure [Right Arm] Blood Pressure Mean 85 76 Blood Pressure Mean [Right Arm] Blood Pressure Position [Right Arm] Pulse Oximetry 98 100 Oxygen Delivery Method Sepsis Recent Fever Within 48 Hours Sepsis New/Unexplained Change in Mental Status Sepsis Action Taken by Nursing 08/30/21 17:00 08/30/21 17:15 08/30/21 17:17 Temperature Temperature Source Pulse Rate 64 88 78 Pulse Rate [Finger] Pulse Rate from SpO2 Sensor 64 Pulse Rhythm Respiratory Rate 23 32 H 32 H Respiratory Effort / Characteristics Respiratory Depth Blood Pressure 127/69 162/104 H Blood Pressure [Right Arm] Blood Pressure Mean 88 123 Blood Pressure Mean [Right Arm] Blood Pressure Position [Right Arm] Pulse Oximetry 96 Oxygen Delivery Method Sepsis Recent Fever Within 48 Hours Sepsis New/Unexplained Change in Mental Status Sepsis Action Taken by Nursing 08/30/21 17:20 08/30/21 17:30 08/30/21 17:31 Temperature Temperature Source Pulse Rate 71 63 67 Pulse Rate [Finger] Pulse Rate from SpO2 Sensor 63 65 Pulse Rhythm Respiratory Rate 22 26 H 23 Respiratory Effort / Characteristics Respiratory Depth Blood Pressure 131/52 L Blood Pressure [Right Arm] Blood Pressure Mean 78 Blood Pressure Mean [Right Arm] Blood Pressure Position [Right Arm] Pulse Oximetry 99 98 Oxygen Delivery Method Sepsis Recent Fever Within 48 Hours Sepsis New/Unexplained Change in Mental Status Sepsis Action Taken by Nursing 08/30/21 17:40 08/30/21 17:50 08/30/21 18:00 Temperature Temperature Source Pulse Rate 66 67 66 Pulse Rate [Finger] Pulse Rate from SpO2 Sensor 67 67 66 Pulse Rhythm Respiratory Rate 22 23 20 Respiratory Effort / Characteristics Respiratory Depth Blood Pressure 145/68 H Blood Pressure [Right Arm] Blood Pressure Mean 93 Blood Pressure Mean [Right Arm] Blood Pressure Position [Right Arm] Pulse Oximetry 93 97 96 Oxygen Delivery Method Sepsis Recent Fever Within 48 Hours Sepsis New/Unexplained Change in Mental Status Sepsis Action Taken by Nursing 08/30/21 18:10 08/30/21 18:20 08/30/21 18:30 Temperature Temperature Source Pulse Rate 64 65 74 Pulse Rate [Finger] Pulse Rate from SpO2 Sensor 65 65 72 Pulse Rhythm Respiratory Rate 20 22 19 Respiratory Effort / Characteristics Respiratory Depth Blood Pressure Blood Pressure [Right Arm] Blood Pressure Mean Blood Pressure Mean [Right Arm] Blood Pressure Position [Right Arm] Pulse Oximetry 87 L 98 99 Oxygen Delivery Method Sepsis Recent Fever Within 48 Hours Sepsis New/Unexplained Change in Mental Status Sepsis Action Taken by Nursing 08/30/21 18:42 08/30/21 18:46 08/30/21 18:50 Temperature Temperature Source Pulse Rate 92 H 76 69 Pulse Rate [Finger] Pulse Rate from SpO2 Sensor 77 76 Pulse Rhythm Respiratory Rate 45 H 27 H 22 Respiratory Effort / Characteristics Respiratory Depth Blood Pressure 157/74 H Blood Pressure [Right Arm] Blood Pressure Mean 101 Blood Pressure Mean [Right Arm] Blood Pressure Position [Right Arm] Pulse Oximetry 89 L 61 L Oxygen Delivery Method Sepsis Recent Fever Within 48 Hours Sepsis New/Unexplained Change in Mental Status Sepsis Action Taken by Nursing 08/30/21 19:00 08/30/21 19:01 08/30/21 19:14 Temperature Temperature Source Pulse Rate 67 72 Pulse Rate [Finger] 68 Pulse Rate from SpO2 Sensor 75 76 Pulse Rhythm Respiratory Rate 18 19 18 Respiratory Effort / Characteristics Non-Labored Respiratory Depth Normal Blood Pressure 121/59 L Blood Pressure [Right Arm] 121/59 L Blood Pressure Mean 79 Blood Pressure Mean [Right Arm] 79 Blood Pressure Position [Right Arm] Sitting Pulse Oximetry 65 L 74 L 98 Oxygen Delivery Method Room Air Sepsis Recent Fever Within 48 Hours Sepsis New/Unexplained Change in Mental Status Sepsis Action Taken by [facility] Medications Current Medication List: was personally reviewed by me Laboratory Data Attestation: I reviewed the patient's lab results. Result diagrams: 08/30/21 15:27 08/30/21 15:27 Lab Results 08/30/21 08/30/21 08/30/21 Range/Units 15:27 15:27 15:27 WBC 19.21 H (4.8-10.8) K/uL RBC 3.61 L (4.2-5.4) M/uL Hgb 11.3 L (12.0-16.0) g/dL Hct 33.2 L (37-47) % MCV 92.0 (80-100) fL MCH 31.3 (25-34) pg MCHC 34.0 (32-36) g/dL RDW Std Deviation 49.1 H (36.4-46.3) fL RDW Coeff of Juani 14.6 H (11.5-14.5) % Plt Count 188 (130-400) K/uL MPV 10.6 H (7.4-10.4) fL Immature Gran % (Auto) 0.5 % Neut % (Auto) 85.6 % Lymph % (Auto) 3.6 % Jewell % (Auto) 10.0 % Eos % (Auto) 0.2 % Baso % (Auto) 0.1 % Neut # (Auto) 16.46 H (1.4-6.5) K/uL Lymph # (Auto) 0.69 L (1.2-3.4) K/uL Jewell # (Auto) 1.93 H (0.11-0.59) K/uL Eos # (Auto) 0.03 (0-0.5) K/uL Baso # (Auto) 0.01 (0-0.2) K/uL Immature Gran # (Auto) 0.09 H (0.00-0.02) K/uL PT 10.8 (9.0-12.0) Seconds INR 1.0 (0.9-1.1) APTT 31.4 H (21.0-31.0) Seconds PTT Ratio 1.1 Sodium 122 L (136-145) mmol/L Potassium 4.0 (3.5-5.1) mmol/L Chloride 90 L (98-107) mmol/L Carbon Dioxide 22 (21-32) mmol/L Anion Gap 10 (3-11) BUN 50 H (6-23) mg/dl Creatinine 1.95 H (0.6-1.2) mg/dl Est Cr Clr Drug Dosing Not Reportable Est GFR ( Amer) 29.3 ml/min Est GFR (Non-Af Amer) 25.3 ml/min BUN/Creatinine Ratio 25.6 H (10-20) Glucose 134 H (70-99(Fasting)) mg/dl Calcium 8.8 (8.5-10.1) mg/dl Total Bilirubin 0.8 (0.2-1.0) mg/dl AST 12 L (13-39) U/L ALT 14 (7-52) U/L Alkaline Phosphatase 58 (34-104) U/L Troponin I High Sens 21.8 H (0-14) pg/ml Total Protein 6.3 (6.0-8.3) gm/dl Albumin 3.5 (3.4-5.0) gm/dl Globulin 2.8 (2.5-4.0) gm/dl Albumin/Globulin Ratio 1.3 (0.9-2) Lipase 28 (11-82) U/L Urine Color Urine Appearance (Clear) Urine pH (4.5-7.5) Ur Specific [place] (1.000-1.030) Urine Protein (Negative) Urine Glucose (UA) (Negative) Urine Ketones (Negative) Urine Blood (Negative) Urine Nitrite (Negative) Urine Bilirubin (Negative) Urine Urobilinogen (Negative) Ur Leukocyte Esterase (Negative) Urine WBC (Auto) (0-5) /hpf Urine RBC (Auto) (0-4) /hpf U Hyaline Cast (Auto) (0-5) /lpf U Epithel Cells (Auto) (0-5) /lpf Urine Bacteria (Auto) (Negative) 08/30/21 Range/Units 18:43 WBC (4.8-10.8) K/uL RBC (4.2-5.4) M/uL Hgb (12.0-16.0) g/dL Hct (37-47) % MCV (80-100) fL MCH (25-34) pg MCHC (32-36) g/dL RDW Std Deviation (36.4-46.3) fL RDW Coeff of Juani (11.5-14.5) % Plt Count (130-400) K/uL MPV (7.4-10.4) fL Immature Gran % (Auto) % Neut % (Auto) % Lymph % (Auto) % Jewell % (Auto) % Eos % (Auto) % Baso % (Auto) % Neut # (Auto) (1.4-6.5) K/uL Lymph # (Auto) (1.2-3.4) K/uL Jewell # (Auto) (0.11-0.59) K/uL Eos # (Auto) (0-0.5) K/uL Baso # (Auto) (0-0.2) K/uL Immature Gran # (Auto) (0.00-0.02) K/uL PT (9.0-12.0) Seconds INR (0.9-1.1) APTT (21.0-31.0) Seconds PTT Ratio Sodium (136-145) mmol/L Potassium (3.5-5.1) mmol/L Chloride (98-107) mmol/L Carbon Dioxide (21-32) mmol/L Anion Gap (3-11) BUN (6-23) mg/dl Creatinine (0.6-1.2) mg/dl Est Cr Clr Drug Dosing Est GFR ( Amer) ml/min Est GFR (Non-Af Amer) ml/min BUN/Creatinine Ratio (10-20) Glucose (70-99(Fasting)) mg/dl Calcium (8.5-10.1) mg/dl Total Bilirubin (0.2-1.0) mg/dl AST (13-39) U/L ALT (7-52) U/L Alkaline Phosphatase (34-104) U/L Troponin I High Sens (0-14) pg/ml Total Protein (6.0-8.3) gm/dl Albumin (3.4-5.0) gm/dl Globulin (2.5-4.0) gm/dl Albumin/Globulin Ratio (0.9-2) Lipase (11-82) U/L Urine Color Yellow Urine Appearance Clear (Clear) Urine pH 5.5 (4.5-7.5) Ur Specific [place] 1.005 (1.000-1.030) Urine Protein Negative (Negative) Urine Glucose (UA) Negative (Negative) Urine Ketones Negative (Negative) Urine Blood 2+ H (Negative) Urine Nitrite Negative (Negative) Urine Bilirubin Negative (Negative) Urine Urobilinogen Negative (Negative) Ur Leukocyte Esterase 2+ H (Negative) Urine WBC (Auto) 10-30 H (0-5) /hpf Urine RBC (Auto) 5-10 H (0-4) /hpf U Hyaline Cast (Auto) 1-5 (0-5) /lpf U Epithel Cells (Auto) >30 H (0-5) /lpf Urine Bacteria (Auto) Negative (Negative) Administered Medications Discontinued Medications Sodium Chloride (Nss) 500 mls @ 999 mls/hr IV .Q31M STA Stop: 08/30/21 16:08 Last Infusion: 08/30/21 19:09 Dose: 0 mls/hr Documented by: [id number] Admin: 08/30/21 15:59 Dose: 999 mls/hr Documented by: [id number] Piperacillin Sod/Tazobactam Sod (Zosyn) 4.5 gm in 120 mls @ 240 mls/hr IV NOW ONE Stop: 08/30/21 17:06 Last Infusion: 08/30/21 19:09 Dose: 0 mls/hr Documented by: [id number] Admin: 08/30/21 16:49 Dose: 240 mls/hr Documented by: [id number] Sodium Chloride (Nss 1000ml) 500 mls @ 999 mls/hr IV .Q31M ONE Stop: 08/30/21 17:07 Last Infusion: 08/30/21 19:09 Dose: 0 mls/hr Documented by: [id number] Admin: 08/30/21 16:48 Dose: 999 mls/hr Documented by: [id number] Ondansetron HCl (Ondansetron Inj 2 Mg/Ml 2 Ml Vial) 4 mg IV NOW STA Stop: 08/30/21 15:39 Last Admin: 08/30/21 15:59 Dose: 4 mg Documented by: [id number] Imaging Data Radiologist's Impression: Abdomen/Pelvis CT 08/30/21 15:38 CT abd pelvis wo con CLINICAL HISTORY: vomiting COMPARISON STUDY: 12/13/2019 CT DOSE: 1931.01 mGy.cm TECHNIQUE: Standard CT of the Abdomen and Pelvis was performed without IV contrast. The patient did not receive oral contrast. A dose lowering technique was utilized adhering to the principles of ALARA. FINDINGS: Lung base: The lung bases are clear. Abdominal cavity: There is no evidence for abdominal mass, adenopathy or asci j carlos. There is a large ventral abdominal wall hernia of the lower abdominal/pelvic wall. Mesenteric fat extends into it. No bowel loop herniation. Liver: The liver is homogeneous in attenuation on these limited noncontrast images..There is calcification within the right lobe of the liver with resolution of previously identified hepatic cyst. Spleen: The spleen is homogeneous in attenuation on these limited noncontrast images. Pancreas: The pancreas is homogeneous in attenuation on these limited noncontrast images. Gall Bladder: Surgical clips are present. Adrenal glands: The adrenal glands are normal in size and attenuation on these limited noncontrast images. Kidneys: There is a large staghorn calculus present involving the mid to upper pole of the right kidney. There is again a cyst involving the lower pole of the right kidney. There has been resolution of previously identified right subcapsular hematoma. The left kidney is within normal limits. There is no left renal calculus or evidence for hydronephrosis bilaterally. Bowel: The bowel loops are normally placed within the abdomen and pelvis without evidence for dilatation or obstruction. There is no evidence for mass lesion. There are no inflammatory changes present. There is no evidence for free air. Bladder: There is no evidence for focal bladder wall thickening, calculus or diverticulum. : There is no evidence for pelvic mass or adenopathy. Vasculature: There is no evidence for focal aneurysmal dilatation of the abdominal aorta. Atherosclerotic calcification is present. Osseous structures: There is no acute osseous pathology. Extensive degenerative changes are seen within the spine. IMPRESSION: 1. Large staghorn calculus of the mid to upper pole of the right kidney. 2. Otherwise, no acute intra-abdominal or pelvic abnormality on these limited noncontrast images. 3. Additional nonacute findings are delineated above. ACT 112: Negative or not required by law. Electronically signed by: Kiel Maher M.D. 08/30/2021 5:05 PM Chest X-Ray 08/30/21 15:39 XR chest 1V portable CLINICAL HISTORY: vomiting. 10/30/2019 COMPARISON STUDY: No previous studies for comparison. TECHNIQUE: 1 view of the chest FINDINGS: Single frontal view of the chest demonstrates the cardiomediastinal silhouette to be within normal limits. The lungs are clear of alveolar opacities. There is no evidence for pleural effusion. There is no evidence for vascular congestion. There is no acute osseous pathology. IMPRESSION: 1. No acute cardiopulmonary disease. ACT 112: Negative or not required by law. Electronically signed by: Kiel Maher M.D. 08/30/2021 5:20 PM Discharge Plan Visit Data Chief Complaint: Abdominal Pain Stated Complaint: ABD PAIN, TIGHTNESS IN LE ED Provider: Srini Pedraza Discharge Problem: ALONA (acute kidney injury), Kidney stone on right side, Acute hyponatremia, Acute pyelonephritis, Vomiting Patient Disposition: Being Evaluated by Hospitalist Forms Stand Alone Forms: [facility] Prescriptions Prescriptions: No Action (DME) insulin syringe-needle U-100 1 mL 31 gauge x 5/16 syringe See Rx Instructions ml .ROUTE .MEDSUPPLY Qty: 10 RF: 0 lisinopril 5 mg tablet 5 mg PO QAM RF: 0 atorvastatin 40 mg Tablet 40 mg PO QAM RF: 0 ascorbic acid (vitamin C) 1,000 mg Tablet 1,000 g PO QAM RF: 0 albuterol sulfate 2.5 mg /3 mL (0.083 %) Solution For Nebulization 2.5 mg INHALATION Q4 PRN (Reason: Wheezing) RF: 0 gabapentin 400 mg Capsule 400 mg PO TID RF: 0 prednisone 5 mg Tablet 5 mg PO QAM RF: 0 Novolin 70/30 U-100 Insulin 100 unit/mL (70-30) Suspension 68 unit SUBCUT BID RF: 0 torsemide 10 mg Tablet 10 mg PO QAM RF: 0 lorazepam 0.5 mg Tablet 0.5 mg PO TID PRN (Reason: Anxiety) RF: 0 methotrexate sodium 2.5 mg Tablet 15 mg PO WK RF: 0 meclizine 25 mg Tablet 25 mg PO TID PRN (Reason: Dizziness) RF: 0 erythromycin 5 mg/gram (0.5 %) Ointment 1 applic OPL QID RF: 0 levothyroxine 125 mcg Tablet 125 mcg PO DAILYBB RF: 0 Novolin R Regular U-100 Insuln 100 unit/mL Solution 1 sliding scale dose SUBCUT UD RF: 0 nitroglycerin 0.4 mg Tablet, Sublingual 0.4 mg sublingual UD PRN (Reason: Chest Pain) RF: 0 aspirin [Aspirin Childrens] 81 mg Tablet,Chewable 162 mg PO HS RF: 0 folic acid 1 mg Tablet 1 mg PO QAM RF: 0 hydroxychloroquine [Plaquenil] 200 mg Tablet 400 mg PO HS RF: 0 albuterol sulfate [ProAir HFA] 90 mcg/actuation Hfa Aerosol Inhaler 2 puff INHALATION QID RF: 0 fluticasone propionate [Flonase Allergy Relief] 50 mcg/actuation [place],Suspension 2 spray INTRANASAL QAM RF: 0 multivitamin with iron Tablet 1 tab PO QAM RF: 0 omeprazole 20 mg Tablet,Delayed Release (Dr/Ec) 20 mg PO QAM RF: 0 Biotene Moisturizing Mouth [place],Non-Aerosol 1 spray MUCOUS MEMBRANE QID RF: 0 Creon 24,000-76,000 -120,000 unit Capsule,Delayed Release(Dr/Ec) 1 cap PO .WITH MEALS & SNACKS RF: 0 latanoprost (PF) 0.005 % Drops 1 drp OPB HS RF: 0 brimonidine 0.2 % drops 1 drp OPL BID RF: 0 tizanidine 2 mg tablet 2 mg PO Q6 PRN (Reason: Muscle Spasm) RF: 0 cyanocobalamin (vitamin B-12) [Vitamin B-12] 1,000 mcg Tablet 1,500 mcg PO QPM RF: 0 bacitracin-polymyxin B [Polycin] 500-10,000 unit/gram Ointment 3.5 g OPR TID RF: 0 cholecalciferol (vitamin D3) [Vitamin D3] 125 mcg (5,000 unit) Tablet 50,000 unit PO WK RF: 0 hydrocodone-acetaminophen 5-325 mg Tablet 1 tab PO Q6 PRN (Reason: Pain,mild) RF: 0 melatonin 5 mg Tablet 5 mg PO HS RF: 0 Rhopressa 0.02 % drops 1 drp OPL HS RF: 0 betaxolol 0.5 % drops 1 drp OPL BID RF: 0 potassium chloride 20 mEq tablet,ER particles/crystals 20 meq PO QAM RF: 0 magnesium oxide 400 mg (241.3 mg magnesium) tablet 400 mg PO 3XWK RF: 0 Probiotic Daily 1 cap PO DAILY RF: 0 Referrals Referrals: David Umanzor MD [Primary Care Provider] -
[2021-08-30 16:25] LABS: Partial Thromboplastin Ratio 1.1; Partial Thromboplastin Time 31.4 Seconds (21.0-31.0); Prothrombin Time 10.8 Seconds (9.0-12.0)
[2021-08-30 16:28] LABS: Alanine Aminotransferase 14 U/L (7-52); Albumin Globulin Ratio 1.3 (0.9-2); Albumin Level 3.5 gm/dl (3.4-5.0); Alkaline Phosphatase 58 U/L (34-104); Anion Gap 10 (3-11); Aspartate Aminotransferase 12 U/L (13-39); BUN Creatinine Ratio 25.6 (10-20); Bilirubin,Total 0.8 mg/dl (0.2-1.0); Blood Urea Nitrogen 50 mg/dl (6-23); Calcium 8.8 mg/dl (8.5-10.1); Carbon Dioxide 22 mmol/L (21-32); Chloride 90 mmol/L (98-107); Est GFR (African American) 29.3 ml/min; Est GFR (Non-African American) 25.3 ml/min; Globulin 2.8 gm/dl (2.5-4.0); Glucose 134 mg/dl (70-99(Fasting)); Lipase 28 U/L (11-82); Sodium 122 mmol/L (136-145); Total Protein 6.3 gm/dl (6.0-8.3)
[2021-08-30 16:31] LABS: Troponin I High Sensitivity 21.8 pg/ml (0-14)
[2021-08-30] MEDS ORDERED: PIPERACILLIN/TAZOBACTAM 4.5 GM/120 ML BAG IV ONE (16:37)
[2021-08-30] MEDS ORDERED: SODIUM CHLORIDE 0.9% 1000ML 500 ML IV ONE ×2 (16:37→19:22)
[2021-08-30] MEDS ORDERED: PIPERACILL/TAZOBAC CONSULT ACTIVE PRN (16:37)
--- NOTE | 2021-08-30 17:07 | CT Scan Report ---
CT abd pelvis wo con CLINICAL HISTORY: vomiting COMPARISON STUDY: 12/13/2019 CT DOSE: 1931.01 mGy.cm TECHNIQUE: Standard CT of the Abdomen and Pelvis was performed without IV contrast. The patient did not receive oral contrast. A dose lowering technique was utilized adhering to the principles of NAOMI Alves. FINDINGS: Lung base: The lung bases are clear. Abdominal cavity: There is no evidence for abdominal mass, adenopathy or ascites. There is a large ve ntral abdominal wall hernia of the lower abdominal/pelvic wall. Mesenteric fat extends into it. No claribel wel loop herniation. Liver: The liver is homogeneous in attenuation on these limited noncontrast images..There is calcific ation within the right lobe of the liver with resolution of previously identified hepatic cyst. Spleen: The spleen is homogeneous in attenuation on these limited noncontrast images. Pancreas: The pancreas is homogeneous in attenuation on these limited noncontrast images. Gall Bladder: Surgical clips are present. Adrenal glands: The adrenal glands are normal in size and attenuation on these limited noncontrast im ages. Kidneys: There is a large staghorn calculus present involving the mid to upper pole of the right kidn ey. There is again a cyst involving the lower pole of the right kidney. There has been resolution of previously identified right subcapsular hematoma. The left kidney is within normal limits. There is n o left renal calculus or evidence for hydronephrosis bilaterally. Bowel: The bowel loops are normally placed within the abdomen and pelvis without evidence for dilatat ion or obstruction. There is no evidence for mass lesion. There are no inflammatory changes present. There is no evidence for free air. Bladder: There is no evidence for focal bladder wall thickening, calculus or diverticulum. : There is no evidence for pelvic mass or adenopathy. Vasculature: There is no evidence for focal aneurysmal dilatation of the abdominal aorta. Atheroscler otic calcification is present. Osseous structures: There is no acute osseous pathology. Extensive degenerative changes are seen with in the spine. IMPRESSION: 1. Large staghorn calculus of the mid to upper pole of the right kidney. 2. Otherwise, no acute intra-abdominal or pelvic abnormality on these limited noncontrast images. 3. Additional nonacute findings are delineated above. ACT 112: Negative or not required by law. Electronically signed by: Kiel Maher M.D. 08/30/2021 5:05 PM
--- NOTE | 2021-08-30 17:21 | XRay Report ---
XR chest 1V portable CLINICAL HISTORY: vomiting. 10/30/2019 COMPARISON STUDY: No previous studies for comparison. TECHNIQUE: 1 view of the chest FINDINGS: Single frontal view of the chest demonstrates the cardiomediastinal silhouette to be within normal li mits. The lungs are clear of alveolar opacities. There is no evidence for pleural effusion. There is no evidence for vascular congestion. There is no acute osseous pathology. IMPRESSION: 1. No acute cardiopulmonary disease. ACT 112: Negative or not required by law. Electronically signed by: Kiel Maher M.D. 08/30/2021 5:20 PM
[2021-08-30 19:06] LABS: Appearance Urine Clear (Clear); Bacteria Urine Automated Negative (Negative); Bilirubin Urine Negative (Negative); Blood Urine 2+ (Negative); Color Urine Yellow; Epithelial Cell Urine Auto >30 /lpf (0-5); Glucose Urine UA Negative (Negative); Ketones Urine Negative (Negative); Leukocyte Esterase Urine 2+ (Negative); Nitrite Urine Negative (Negative); Protein Urine Negative (Negative); Specific Gravity Urine 1.005 (1.000-1.030); Urobilinogen Urine Negative (Negative); pH Urine 5.5 (4.5-7.5)
[2021-08-30] MEDS ORDERED: HYDROmorphone INJ 0.5 MG/0.5 ML SYR IV PRN (20:45)
[2021-08-30] MEDS ORDERED: oxyCODONE HCL IR 5 MG TAB (IMMEDIATE RELEASE) PO PRN (20:45)
--- NOTE | 2021-08-30 21:14 | History & Physical Report ---
Date of Service August 30, 2021 Assessment & Plan (1) Acute hyponatremia: Plan: Hyponatremia, ARF secondary to complicated UTI (staghorn calculi on CT read, history recurrent urolithiasis) Home medications and contrast nephropathy possibly contributory to kidney dysfunction Possible sepsis Immunocompromised patient, hx RA on chronic immunosuppressive regimen Anemia possibly secondary to hematuria Troponin elevation in the setting of abnormal kidney function and mild BP elevation, patient without chest pain, SOB history of cardiomyopathy, patient on the dry side presumptive CAD/PVD as per records PAF, patient NSR moderate (TTE 2020) hypertension, slight elevated hyperlipidemia on statin Rx hepatocellular carcinoma status post embolization, shrinking tumor as of last outpatient report May 2021 DM2 insulin requiring, well-controlled as of recent hemoglobin A1c of 6.2 June 02 Hypothyroidism, euthyroid as of today's TSH legal blindness Medical telemetry Careful correction of sodium Hyponatremia work-up Monitor creatinine response gentle IV hydration Appropriate to hold home lisinopril, diuretic for now until creatinine back to baseline Nephrology consult if without improvement Urine CS, Analilian Urology consult in a.m. Re: Staghorn calculi Appropriate to hold home aspirin for now given hematuria resulting in anemia Trend H&H, transfuse PRBC if hemoglobin less than 8 and or for symptomatic anemia Amlodipine for BP control while lisinopril and home diuretics on hold Follow troponin, TTE if with progression Basal bolus insulin, ISS BG goal 1 10-1 40 DVT prophylaxis. SCDs Re: Hematuria Full code Text document was generated using [employer] voice recognition software. It may contain grammatical or spelling errors. Kindly contact undersigned for clarification of any documentation item in question. History of Present Illness Chief Complaint: Nausea, vomiting, right back pain Primary Care Provider: David Umanzor MD History obtained from patient and records. Medical history significant for history of cardiomyopathy (EF 50 to 54%, TTE 2020), presumptive CAD/PVD as per records, PAF, moderate (TTE 2020), hypertension, hyperlipidemia, hepatocellular carcinoma status post embolization, DM2 insulin requiring, hypothyroidism, RA on chronic steroid/methotrexate Rx, history urolithiasis/hydronephrosis/recurrent UTIs as per records, LAQUITA on CPAP, legal blindness. Last confinement October 2019 for hypoglycemia. Patient started not feeling well about 2 weeks ago. Nausea symptoms, poor appetite. Patient felt sicker after outpatient serial contrast CT done for her liver cancer 2 days ago. Achy right flank pain with worsening nausea, vomiting. Some chills. No fever. Patient denies chest pain, SOB. Patient dry cough symptoms. Has completed COVID-19 vaccination. Patient unsure about gross hematuria given legal blindness. Urine noted to have strong odor. At the ER, patient given Zosyn for sepsis. Medical History as above Surgical History : Appendectomy, carpal tunnel surgery, eyelid surgery, cataract surgery liver biopsy, partial thyroidectomy, cholecystectomy, MARLIN for endometriosis Family History : DM, heart disease Personal/Social history : Non-smoker, no EtOH intake, disabled Allergies Allergy/AdvReac Type Severity Reaction Status Date / Time cephalexin Allergy Severe Anaphylaxis Verified 08/30/21 18:06 Cephalosporins Allergy Severe Anaphylaxis Verified 08/30/21 18:06 lidocaine [From Lidoderm] Allergy Intermediate Rash Verified 08/30/21 18:06 Sulfa (Sulfonamide Allergy Intermediate Hives Verified 08/30/21 18:06 Antibiotics) butorphanol AdvReac Intermediate Rapid heart Verified 08/30/21 18:06 ciprofloxacin AdvReac Mild Nausea Verified 08/30/21 18:06 Home Medications Medication Instructions Recorded Confirmed Type albuterol sulfate 2.5 mg INHALATION Q4 PRN 11/02/18 08/30/21 History albuterol sulfate 90 mcg/actuation 2 puff INHALATION QID 11/02/18 08/30/21 History aerosol inhaler (ProAir HFA) ascorbic acid (vitamin C) 1,000 mg 1,000 g PO QAM 11/02/18 08/30/21 History tablet aspirin 81 mg chewable tablet 162 mg PO HS 11/02/18 08/30/21 History (Aspirin Childrens) atorvastatin 40 mg tablet 40 mg PO QAM 11/02/18 08/30/21 History erythromycin 5 mg/gram (0.5 %) eye 1 applic OPL QID 11/02/18 08/30/21 History ointment fluticasone propionate 50 2 spray INTRANASAL QAM 11/02/18 08/30/21 History mcg/actuation nasal spray,suspension (Flonase Allergy Relief) folic acid 1 mg tablet 1 mg PO QAM 11/02/18 08/30/21 History gabapentin 400 mg capsule 400 mg PO TID 11/02/18 08/30/21 History hydroxychloroquine 200 mg tablet 400 mg PO HS 11/02/18 08/30/21 History (Plaquenil) insulin human U-100 NPH-regulr 68 unit SUBCUT BID 11/02/18 08/30/21 History 70-30 mix 100 unit/mL subcutaneous susp (Novolin 70/30 U-100 Insulin) insulin regular human 100 unit/mL 1 sliding scale dose SUBCUT UD 11/02/18 08/30/21 History injection solution (Novolin R Regular U-100 Insulin) latanoprost (PF) 0.005 % eye drops 1 drp OPB HS 11/02/18 08/30/21 History levothyroxine 125 mcg tablet 125 mcg PO DAILYBB 11/02/18 08/30/21 History boxjaw-rkypwiaj-oehfmwn 1 cap PO .WITH MEALS & SNACKS 11/02/18 08/30/21 History 24,000-76,000-120,000 unit capsule,delayed rel (Creon) lorazepam 0.5 mg tablet 0.5 mg PO TID PRN 11/02/18 08/30/21 History meclizine 25 mg tablet 25 mg PO TID PRN 11/02/18 08/30/21 History methotrexate sodium 2.5 mg tablet 15 mg PO WK 11/02/18 08/30/21 History multivitamin with iron 1 tab PO QAM 11/02/18 08/30/21 History nitroglycerin 0.4 mg sublingual 0.4 mg SUBLINGUAL UD PRN 11/02/18 08/30/21 History tablet omeprazole 20 mg tablet,delayed 20 mg PO QAM 11/02/18 08/30/21 History release prednisone 5 mg tablet 5 mg PO QAM 11/02/18 08/30/21 History saliva stimulant comb. no.3 1 spray MUCOUS MEMBRANE QID 11/02/18 08/30/21 History (Biotene Moisturizing Mouth) torsemide 10 mg tablet 10 mg PO QAM 11/02/18 08/30/21 History bacitracin-polymyxin B 500 3.5 g OPR TID 10/20/19 08/30/21 History unit-10,000 unit/gram eye ointment (Polycin) brimonidine 0.2 % eye drops 1 drp OPL BID 10/20/19 08/30/21 History cyanocobalamin (vitamin B-12) 1,500 mcg PO QPM 10/20/19 08/30/21 History 1,000 mcg tablet (Vitamin B-12) tizanidine 2 mg tablet 2 mg PO Q6 PRN 10/20/19 08/30/21 History insulin syringe-needle U-100 1 mL #10 ea 11/09/19 08/30/21 History 31 gauge x 16" cholecalciferol (vitamin D3) 125 50,000 unit PO WK 01/07/20 08/30/21 History mcg (5,000 unit) tablet (Vitamin D3) lisinopril 5 mg tablet 5 mg PO QAM 07/22/20 08/30/21 History hydrocodone 5 mg-acetaminophen 325 1 tab PO Q6 PRN 03/26/21 08/30/21 History mg tablet melatonin 5 mg tablet 5 mg PO HS 03/30/21 08/30/21 History Probiotic Daily 1 cap PO DAILY 08/30/21 08/30/21 History betaxolol 0.5 % eye drops 1 drp OPL BID 08/30/21 08/30/21 History magnesium oxide 400 mg (241.3 mg 400 mg PO 3XWK 08/30/21 08/30/21 History magnesium) tablet netarsudil 0.02 % eye drops 1 drp OPL HS 08/30/21 08/30/21 History (Rhopressa) potassium chloride 20 mEq 20 meq PO QAM 08/30/21 08/30/21 History tablet,extended release(part/cryst) Past Med/Surg History Medical History Anemia Blindness Left eye (since ) Chronic back pain Chronic kidney disease, stage 3 Chronic steroid use Congestive heart failure Hx Diabetes mellitus, type 2 IDDM Diabetic neuropathy Diabetic retinopathy Glaucoma Hernia Current History of atrial fibrillation Single, brief episode (2018) Per 04/13/17 cardio note- ECHO reviewed, due to polypharmacy and confusion- recommended observation without additional procedures or cardiac medications at this time History of cancer 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), s/p surgical intervention History of gastric ulcer History of sinus problem Reason for nebulizer and inhalers prn Hyperlipidemia Hypertension Hypothyroidism Indwelling Red catheter present Ischemic cardiomyopathy Kidney stones Liver cancer Stage 1, under surveillance Migraine Myocardial Infarction Remote silent [place] (10+ years ago) Pancreatic lesion Under surveillance, "no current cancer characteristics" Pancreatitis Mutliple, 15+ episodes (no current issues) Rheumatoid arthritis on Plaquenil, MTX, prednisone 5mg daily Sleep apnea CPAP SOB (shortness of breath) on exertion Transient ischemic attack (TIA) ? TIA vs CVA x2 (20+ years ago), no deficits Surgical History History of appendectomy History of bilateral cataract extraction History of biopsy of bladder showed chronic cystitis History of carpal tunnel release of both wrists History of cholecystectomy History of colonoscopy History of cystoscopy WITH STENT INSERTION X MULTIPLE History of cystoscopy Cystoscopy, right stent, right laser lithotripsy (08/11/2020): LMA 4.0 unique, atraumatic, LMA attempt x1 at [facility]. No issues per postop anesthesia progress note. History of detached retina repair x4 on right eye History of dilatation and curettage x3 History of ERCP History of esophagogastroduodenoscopy (EGD) History of liver biopsy X 2 History of lumbar discectomy History of partial thyroidectomy right side and ismis removed d/t papillary cancer History of tarsorrhaphy BILT--right eye closed shut, left eye partly closed History of tooth extraction all top teeth, most of bottom History of total hysterectomy with bilateral salpingo-oophorectomy (BSO) Nausea and vomiting after administration of anesthetic agent S/P appendectomy S/P foot surgery, left "stepped on a needle and had to have it removed" Status post laser lithotripsy of ureteral calculus x3 -> November 2019, December 2019, August 2020 Family History Father Family history of diabetes mellitus Family history of reaction to anesthesia difficulty waking Mother Family history of diabetes mellitus Sister Family history of diabetes mellitus Brother Family history of diabetes mellitus Grandmother (Maternal) Family history of diabetes mellitus Grandmother (Paternal) Family history of diabetes mellitus Son Family history of diabetes mellitus Social History Smoking Status: Never smoker Second Hand Exposure: Yes; Hx Alcohol Use: No Hx Substance Use: No Preferred Language: Syrian Communication Ability: Impaired Communication Ability Comment: pt is blind Communication Tools: Other Visual Impairment: Blindness [employer] Required: No Beliefs That Will Affect Care: None marital status: Current Living Situation: Family Feels Safe at Home: Yes Safety Concerns: Feels Safe At This Time Assistive Devices: Cane, CPAP, Denture - Upper, Denture - Lower and Walker Review of Systems Review of Systems: As per HPI, all other systems reviewed and negative Physical Exam Physical Exam: GENERAL: Slightly uncomfortable, slightly anxious, morbidly obese, no respiratory distress SKIN: Pallor, warm HEENT: Sunglasses over patient's eyes, pale palpebral conjunctivae, no ptosis, dry buccal mucosa NECK : Supple, short neck, no tenderness CHEST : CTA, no tenderness HEART : RRR, systolic murmur ABDOMEN: distention, nontender EXTREMITIES : Minimal LE swelling, no LE tenderness, no other conspicuous deformities noted NEUROLOGIC : Coherent, no facial asymmetry, no other gross focality Results & Data Results & Data ([facility]) Vital Signs (Past 12 Hours) Vital Signs Temp Pulse Pulse Resp BP BP Pulse Ox 08/30/21 19:14 68 18 121/59 L 98 08/30/21 19:01 72 19 121/59 L 74 L 08/30/21 19:00 67 18 65 L 08/30/21 18:50 69 22 61 L 08/30/21 18:46 76 27 H 157/74 H 89 L 08/30/21 18:42 92 H 45 H 08/30/21 18:30 74 19 99 08/30/21 18:20 65 22 98 08/30/21 18:10 64 20 87 L 08/30/21 18:00 66 20 145/68 H 96 08/30/21 17:50 67 23 97 08/30/21 17:40 66 22 93 08/30/21 17:31 67 23 131/52 L 98 08/30/21 17:30 63 26 H 99 08/30/21 17:20 71 22 08/30/21 17:17 78 32 H 162/104 H 08/30/21 17:15 88 32 H 08/30/21 17:00 64 23 127/69 96 08/30/21 16:50 66 24 117/56 L 100 08/30/21 16:44 65 18 08/30/21 16:00 61 20 109/73 98 08/30/21 15:58 60 19 99 08/30/21 15:39 72 20 97 08/30/21 15:09 36.6 C 64 18 130/58 L 96 Laboratory Results Laboratory Results WBC 19.21 K/uL (4.8-10.8) H 08/30/21 15: RBC 3.61 M/uL (4.2-5.4) L 08/30/21 15:27 Hgb 11.3 g/dL (12.0-16.0) L 08/30/21 15: Hct 33.2 % (37-47) L 08/30/21 15: MCV 92.0 fL (80-100) 08/30/21 15: MCH 31.3 pg (25-34) 08/30/21 15: MCHC 34.0 g/dL (32-36) 08/30/21 15: RDW Std Deviation 49.1 fL (36.4-46.3) H 08/30/21 15: RDW Coeff of Juani 14.6 % (11.5-14.5) H 08/30/21 15: Plt Count 188 K/uL (130-400) 08/30/21 15: MPV 10.6 fL (7.4-10.4) H 08/30/21 15: Immature Gran % (Auto) 0.5 % 08/30/21: Neut % (Auto) 85.6 % 08/30/21 15: Lymph % (Auto) 3.6 % 08/30/21 15: [place] % (Auto) 10.0 % 08/30/21 15: Eos % (Auto) 0.2 % 08/30/21 15:27 Baso % (Auto) 0.1 % 08/30/21 15:27 Neut # (Auto) 16.46 K/uL (1.4-6.5) H 08/30/21 15: Lymph # (Auto) 0.69 K/uL (1.2-3.4) L 08/30/21 15:27 [place] # (Auto) 1.93 K/uL (0.11-0.59) H 08/30/21 15: Eos # (Auto) 0.03 K/uL (0-0.5) 08/30/21 15: Baso # (Auto) 0.01 K/uL (0-0.2) 08/30/21 15: Immature Gran # (Auto) 0.09 K/uL (0.00-0.02) H 08/30/21 15: PT 10.8 Seconds (9.0-12.0) 08/30/21 15: INR 1.0 (0.9-1.1) 08/30/21: APTT 31.4 Seconds (21.0-31.0) H 08/30/21 15: PTT Ratio 1.1 08/30/21 15: Sodium 122 mmol/L (136-145) L 08/30/21: Potassium 4.0 mmol/L (3.5-5.1) 08/30/21: Chloride 90 mmol/L (98-107) L 08/30/21: Carbon Dioxide 22 mmol/L (21-32) 08/30/21: Anion Gap 10 (3-11) 08/30/21: BUN 50 mg/dl (6-23) H 08/30/21 15: Creatinine 1.95 mg/dl (0.6-1.2) H 08/30/21: Est Cr Clr Drug Dosing Not Reportable 08/30/21: Est GFR ( Amer) 29.3 ml/min 08/30/21: Est GFR (Non-Af Amer) 25.3 ml/min 08/30/21: BUN/Creatinine Ratio 25.6 (10-20) H 08/30/21 15: Glucose 134 mg/dl (70-99(Fasting)) H 08/30/21 15: Osmolality 271 mOsm/kg (280-300) L 08/30/21: Calcium 8.8 mg/dl (8.5-10.1) 08/30/21: Magnesium 1.4 mg/dl (1.7-2.4) L 08/30/21 15: Total Bilirubin 0.8 mg/dl (0.2-1.0) 08/30/21 15: AST 12 U/L (13-39) L 08/30/21: ALT 14 U/L (7-52) 08/30/21 15: Alkaline Phosphatase 58 U/L (34-104) 08/30/21 15: Troponin I High Sens 21.8 pg/ml (0-14) H 08/30/21 15: Total Protein 6.3 gm/dl (6.0-8.3) 08/30/21 15: Albumin 3.5 gm/dl (3.4-5.0) 08/30/21 15: Globulin 2.8 gm/dl (2.5-4.0) 08/30/21 15: Albumin/Globulin Ratio 1.3 (0.9-2) 08/30/21 15: Lipase 28 U/L (11-82) 08/30/21 15: TSH 0.852 uIu/ml (0.300-4.500) 08/30/21 15: Urine Color Yellow 08/30/21 18:43 Urine Appearance Clear (Clear) 08/30/21 18:43 Urine pH 5.5 (4.5-7.5) 08/30/21 18:43 Ur Specific [place] 1.005 (1.000-1.030) 08/30/21 18:43 Urine Protein Negative (Negative) 08/30/21 18:43 Urine Glucose (UA) Negative (Negative) 08/30/21 18:43 Urine Ketones Negative (Negative) 08/30/21 18:43 Urine Blood 2+ (Negative) H 08/30/21 18:43 Urine Nitrite Negative (Negative) 08/30/21 18:43 Urine Bilirubin Negative (Negative) 08/30/21 18:43 Urine Urobilinogen Negative (Negative) 08/30/21 18:43 Ur Leukocyte Esterase 2+ (Negative) H 08/30/21 18:43 Urine WBC (Auto) 10-30 /hpf (0-5) H 08/30/21 18:43 Urine RBC (Auto) 5-10 /hpf (0-4) H 08/30/21 18:43 U Hyaline Cast (Auto) 1-5 /lpf (0-5) 08/30/21 18:43 U Epithel Cells (Auto) >30 /lpf (0-5) H 08/30/21 18:43 Urine Bacteria (Auto) Negative (Negative) 08/30/21 18:43 Urine Osmolality 130 mOsm/kg (500-800) L 08/30/21 18:43 Ur Random Sodium 12 mmol/L 08/30/21 18:43 SARS-CoV-2, RNA, NAAT NEGATIVE (NEGATIVE) 08/30/21 19:35 Impressions Abdomen/Pelvis CT 08/30/21 15:38 CT abd pelvis wo con CLINICAL HISTORY: vomiting COMPARISON STUDY: 12/13/2019 CT DOSE: 1931.01 mGy.cm TECHNIQUE: Standard CT of the Abdomen and Pelvis was performed without IV contrast. The patient did not receive oral contrast. A dose lowering technique was utilized adhering to the principles of ALARA. FINDINGS: Lung base: The lung bases are clear. Abdominal cavity: There is no evidence for abdominal mass, adenopathy or ascites. There is a large ventral abdominal wall hernia of the lower abdominal/pelvic wall. Mesenteric fat extends into it. No bowel loop herniation. Liver: The liver is homogeneous in attenuation on these limited noncontrast images..There is calcification within the right lobe of the liver with resolution of previously identified hepatic cyst. Spleen: The spleen is homogeneous in attenuation on these limited noncontrast images. Pancreas: The pancreas is homogeneous in attenuation on these limited noncontrast images. Gall Bladder: Surgical clips are present. Adrenal glands: The adrenal glands are normal in size and attenuation on these limited noncontrast images. Kidneys: There is a large staghorn calculus present involving the mid to upper pole of the right kidney. There is again a cyst involving the lower pole of the right kidney. There has been resolution of previously identified right subcapsular hematoma. The left kidney is within normal limits. There is no left renal calculus or evidence for hydronephrosis bilaterally. Bowel: The bowel loops are normally placed within the abdomen and pelvis without evidence for dilatation or obstruction. There is no evidence for mass lesion. There are no inflammatory changes present. There is no evidence for free air. Bladder: There is no evidence for focal bladder wall thickening, calculus or diverticulum. : There is no evidence for pelvic mass or adenopathy. Vasculature: There is no evidence for focal aneurysmal dilatation of the abdominal aorta. Atherosclerotic calcification is present. Osseous structures: There is no acute osseous pathology. Extensive degenerative changes are seen within the spine. IMPRESSION: 1. Large staghorn calculus of the mid to upper pole of the right kidney. 2. Otherwise, no acute intra-abdominal or pelvic abnormality on these limited noncontrast images. 3. Additional nonacute findings are delineated above. ACT 112: Negative or not required by law. Electronically signed by: Kiel Maher M.D. 08/30/2021 5:05 PM Chest X-Ray 08/30/21 15:39 XR chest 1V portable CLINICAL HISTORY: vomiting. 10/30/2019 COMPARISON STUDY: No previous studies for comparison. TECHNIQUE: 1 view of the chest FINDINGS: Single frontal view of the chest demonstrates the cardiomediastinal silhouette to be within normal limits. The lungs are clear of alveolar opacities. There is no evidence for pleural effusion. There is no evidence for vascular congestion. There is no acute osseous pathology. IMPRESSION: 1. No acute cardiopulmonary disease. ACT 112: Negative or not required by law. Electronically signed by: Kiel Maher M.D. 08/30/2021 5:20 PM Diagnostic Findings EKG, as per my interpretation rate 65, NSR, LAD, LAFB, no ischemia, multiple artifacts Code Status & VTE Plan VTE Prophylaxis Plan VTE Prophylaxis will be ordered: Yes
[2021-08-30] MEDS ORDERED: DEXTROSE 50% 50 ML SYRINGE IV PRN (22:22)
[2021-08-30] MEDS ORDERED: PROMETHAZINE HCL 12.5 MG in SODIUM CHLORIDE 0.9% 50 ML IV PRN (22:22)
[2021-08-30] MEDS ORDERED: MELATONIN 3 MG TAB PO SCH (22:22)
[2021-08-30] MEDS ORDERED: LORazepam 2 MG/1 ML VIAL IV PRN (22:22)
[2021-08-30] MEDS ORDERED: GLUCOSE 40% GEL 15 GM TUBE PO PRN (22:22)
[2021-08-30] MEDS ORDERED: GLUCOSE 10 TABS/TUBE PO PRN (22:22)
[2021-08-30] MEDS ORDERED: LORazepam 0.5 MG TAB PO PRN (22:22)
[2021-08-30] MEDS ORDERED: GLUCAGON FOR INJ 1 MG VIAL SQ PRN (22:22)
[2021-08-30] MEDS ORDERED: CARBOHYDRATES FOR HYPOGLYCEMIA PO PRN (22:22)
[2021-08-30] MEDS: MAGNESIUM SULFATE / D5W 1 GM/100 ML BAG IV SCH (22:29)
[2021-08-30] MEDS ORDERED: amLODIPine BESYLATE 5 MG TAB PO SCH (22:55)
[2021-08-30 23:14] LABS: Hematocrit (blood only) 34.6 % (37-47); Hemoglobin 11.8 g/dL (12.0-16.0)
[2021-08-30 23:16] LABS: BUN Creatinine Ratio 26.1 (10-20); Creatinine Clr Calc Pharmacy 37.7 ml/min; Est GFR (African American) 33.1 ml/min; Est GFR (Non-African American) 28.6 ml/min; Potassium 3.9 mmol/L (3.5-5.1)
[2021-08-30] MEDS ORDERED: PANCREAZE (LIPASE 10,500U) CAP PO PRN (23:20)
[2021-08-30 23:21] LABS: Troponin I High Sensitivity 26.7 pg/ml (0-14)
[2021-08-30] MEDS: BRIMONIDINE TARTRATE 0.2% 5ML OPL SCH (23:59)
[2021-08-31] MEDS: BETAXOLOL HCL 0.5% OPL SCH ×3 (00:01→23:29)
[2021-08-31] MEDS: CYANOCOBALAMIN (B-12) 500 MCG TABLET PO SCH ×2 (00:01→20:47)
[2021-08-31] MEDS: GABAPENTIN 100 MG CAP PO SCH ×4 (00:02→20:41)
[2021-08-31] MEDS: HYDROXYCHLOROQUINE SULFATE 200 MG TAB PO SCH ×2 (00:03→20:40)
[2021-08-31] MEDS: ERYTHROMYCIN OP OINT 5 MG/GM 3.5 GM TUBE OPL SCH ×5 (00:07→20:42)
[2021-08-31] MEDS: BACITRACIN/POLYMYX B OPH OINT 3.5 GM TUBE OPR SCH ×4 (00:08→20:42)
[2021-08-31] MEDS: INSULIN ASPART PER UNIT SC SCH ×5 (00:34→20:58)
[2021-08-31] MEDS: PIPERACILLIN/TAZOBACTAM 4.5 GM in DEXTROSE 5% 100 ML IV SCH ×4 (00:43→23:17)
[2021-08-31] MEDS: MAGNESIUM SULFATE / D5W 1 GM/100 ML BAG IV SCH (00:45)
[2021-08-31] MEDS: LATANOPROST 0.005% OP SOLN 2.5 ML BTL OP SCH ×2 (01:00→20:43)
[2021-08-31] MEDS: ACETAMINOPHEN 325 MG TAB PO PRN ×2 (04:07→20:37)
[2021-08-31] MEDS: tiZANidine HCL 4 MG TABLET PO PRN (04:14)
[2021-08-31 04:18] LABS: Hematocrit (blood only) 32.2 % (37-47); Mean Corpuscular Hemoglobin 31.1 pg (25-34); Mean Corpuscular Hgb Conc 34.2 g/dL (32-36); Platelet Count 178 K/uL (130-400); RDW Coefficient of Variation 14.6 % (11.5-14.5); RDW Standard Deviation 48.1 fL (36.4-46.3); Red Blood Count 3.54 M/uL (4.2-5.4)
[2021-08-31 04:41] LABS: Basophils # (auto) 0.01 K/uL (0-0.2); Basophils % (auto) 0.1 %; Eosinophils # (auto) 0.04 K/uL (0-0.5); Eosinophils % (auto) 0.3 %; Immature Granulocytes # (auto) 0.07 K/uL (0.00-0.02); Immature Granulocytes % (auto) 0.4 %; Lymphocytes # (auto) 0.67 K/uL (1.2-3.4); Lymphocytes % (auto) 4.2 %; Monocytes # (auto) 1.46 K/uL (0.11-0.59); Monocytes % (auto) 9.2 %; Neutrophils # (auto) 13.55 K/uL (1.4-6.5); Neutrophils % (auto) 85.8 %; RBC Morphology Unremarkable
[2021-08-31 04:47] LABS: Troponin I High Sensitivity 34.6 pg/ml (0-14)
[2021-08-31 04:55] LABS: BUN Creatinine Ratio 26.8 (10-20); Calcium 8.6 mg/dl (8.5-10.1); Creatinine Clr Calc Pharmacy 39.5 ml/min; Est GFR (African American) 35.1 ml/min; Est GFR (Non-African American) 30.2 ml/min; Magnesium 2.1 mg/dl (1.7-2.4); Potassium 3.7 mmol/L (3.5-5.1)
--- NOTE | 2021-08-31 05:05 | Communication Note ---
Date of Service: August 31, 2021 Made aware by RN of fever spike despite ongoing Rx. Keep n.p.o. until patient seen by Urology in anticipation of procedural intervention.
[2021-08-31] MEDS: SODIUM CHLORIDE 0.9% 1000ML 1,000 ML IV SCH (05:21)
[2021-08-31] MEDS: LEVOTHYROXINE SODIUM 125 MCG TABLET PO SCH (05:35)
[2021-08-31] MEDS: ADVANCED PROBIOTIC 1250 MG CAPSULE PO SCH (08:15)
[2021-08-31] MEDS: ATORVASTATIN 40 MG TAB PO SCH (08:15)
[2021-08-31] MEDS: PANTOprazole 40 MG TAB PO SCH (08:15)
[2021-08-31] MEDS: FOLIC ACID 1 MG TAB PO SCH (08:15)
[2021-08-31] MEDS: PANCREAZE (LIPASE 10,500U) CAP PO SCH ×3 (08:15→17:09)
[2021-08-31] MEDS: predniSONE 5 MG TAB PO SCH (08:15)
[2021-08-31] MEDS: BRIMONIDINE TARTRATE 0.2% 5ML OPL SCH ×2 (08:16→20:42)
[2021-08-31] MEDS: FLUTICASONE PROPIONATE NA SPR 16 GM BTL SCH (08:16)
--- NOTE | 2021-08-31 08:33 | Urology Consultation ---
Date of Consultation August 31, 2021 Assessment & Plan (1) Kidney stone on right side: (2) ALONA (acute kidney injury): (3) Urinary tract infection: 71yo F with admitted with hyponatremia, ARF, suspected UTI in the setting of a large staghorn calculus in the mid to upper pole of the right kidney. - Subjectively feeling better today than yesterday, still with intermittent right back/flank pain. - Febrile this morning- TMAX 38.3 at 0407. - Labs reviewed - Wbc down from 19.21-15.80 today, Creatinine 1.68 (1.95 on admit). Continue to trend. - Urine culture pending, on IV Zosyn. - Voiding spontaneously. Continue to monitor, bladder scan prn. Plan- - Plan of care and imaging reviewed with Dr. Johansen, on-call urologist. - Given her fever, ALONA, suspected UTI and right flank pain in the context of a large right-sided staghorn calculus, will proceed with OR for cystoscopy, right retrograde pyelogram, right ureteral stent placement. - Risks and benefits discussed at length. Patient states understanding and agrees to sign and proceed. - Risks and benefits also to be reviewed with patient by Dr. Johansen. - OR notified. Covid test negative. Covered with scheduled IV Zosyn. - Keep NPO. - Continue supportive care and antibiotic therapy. - Will continue to follow. - Of note, pt had a 4.2-second pause on tele overnight. Cardiology consulted for clearance prior to procedure. ATTENDING NOTE: Independently evaluated, examined, and interviewed. Agree with above. Septic w ith fever, bradycardia, and ill feeling swith obstruction of upper pole duplicated right system. Risks and benefits discussed at length for procedure. These include bleeding, infection, injury to surrounding tissues or organs, and risks associated with anesthesia. Patient states understanding and agrees to proceed. Will sign consent and proceed. Plan for emergent procedure due to sepsis and cardiac concerns. Plan for cystoscopy with right stent placement. History of Present Illness Reason for Consultation: Staghorn calculi, UTI Attending Physician: Cm Chaudhary MD History of Present Illness 71yo F with multiple comorbidities who presented with nausea, vomiting, and ill- feelings. Pt reported nausea and poor appetite for approx 2 weeks and began feeling worse after her outpatient serial contrasted CT done for her liver cancer 3 days ago. Also noted decreased urine output. On arrival she was afebrile and hemodynamically stable. Labs revealed a white count of 19.2 and elevated creatinine at 1.95. She was also hyponatremic. A CT abdomen pelvis was obtained and notable for a large staghorn calculus in the mid to upper pole of the right kidney. Urinalysis with 2+blood, 2+LE, 10-30WBC, 5-10RBC, negative bacteria, negative nitrite. She was treated with IVF and IV antibiotics for presumed UTI. She was admitted by medicine service for hyponatremia, acute renal failure, and presumed UTI in the setting of a large staghorn calculus. Past medical history significant for history of cardiomyopathy (EF 50 to 54%, TTE 2020), presumptive CAD/PVD as per records, PAF, moderate (TTE 2020), hypertension, hyperlipidemia, hepatocellular carcinoma status post embolization, DM2 insulin requiring, hypothyroidism, RA on chronic steroid/methotrexate Rx, history urolithiasis/hydronephrosis/recurrent UTIs as per records, LAQUITA on CPAP, legal blindness. CT abdomen pelvis - 1. Large staghorn calculus of the mid to upper pole of the right kidney. 2. Otherwise, no acute intra-abdominal or pelvic abnormality on these limited noncontrast images. 3. Additional nonacute findings are delineated above. Urology consulted for staghorn calculus, UTI. Pt is well known to the urology service, follows with Dr. Johansen. 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 Underwent Cystoscopy Bilateral Retrograde Pyelogram, Ureteral Stent Bilateral, Ureteroscopy, Left Ureteral dilation, Right Stone basket extraction in 03/[address] Johansen. Pt examined at bedside this AM. Awake, sitting in bedside chair on arrival. No acute distress. States she is feeling much better today than yesterday. Reports intermittent right back/flank pain. Denies fever or chills at present. Had low grade temp this AM. Denies nausea/vomiting. Reports decreased urine output prior to her arrival. Feels she is voiding without issue now. Some urinary frequency. No dysuria. Feels she is emptying her bladder well. Unsure about gross hematuria given legal blindness. Noted urine to have a strong odor. Has been NPO other than sips of water. Offered no additional complaints at time of exam. Allergies Allergy/AdvReac Type Severity Reaction Status Date / Time cephalexin Allergy Severe Anaphylaxis Verified 08/30/21 18:06 Cephalosporins Allergy Severe Anaphylaxis Verified 08/30/21 18:06 lidocaine [From Lidoderm] Allergy Intermediate Rash Verified 08/30/21 18:06 Sulfa (Sulfonamide Allergy Intermediate Hives Verified 08/30/21 18:06 Antibiotics) butorphanol AdvReac Intermediate Rapid heart Verified 08/30/21 18:06 ciprofloxacin AdvReac Mild Nausea Verified 08/30/21 18:06 Home Medications Medication Instructions Recorded Confirmed Type albuterol sulfate 2.5 mg INHALATION Q4 PRN 11/02/18 08/30/21 History albuterol sulfate 90 mcg/actuation 2 puff INHALATION QID 11/02/18 08/30/21 History aerosol inhaler (ProAir HFA) ascorbic acid (vitamin C) 1,000 mg 1,000 g PO QAM 11/02/18 08/30/21 History tablet aspirin 81 mg chewable tablet 162 mg PO 11/02/18 08/30/21 History (Aspirin Childrens) atorvastatin 40 mg tablet 40 mg PO QA 11/02/18 08/30/21 History erythromycin 5 mg/gram (0.5 %) eye 1 applic OPL QID 11/02/18 08/30/21 History ointment fluticasone propionate 50 2 spray INTRANASAL QA 11/02/18 08/30/21 History mcg/actuation nasal spray,suspension (Flonase Allergy Relief) folic acid 1 mg tablet 1 mg PO QAM 11/02/18 08/30/21 History gabapentin 400 mg capsule 400 mg PO TID 11/02/18 08/30/21 History hydroxychloroquine 200 mg tablet 400 mg PO 11/02/18 08/30/21 History (Plaquenil) insulin human U-100 NPH-regulr 68 unit SUBCUT BID 11/02/18 08/30/21 History 70-30 mix 100 unit/mL subcutaneous susp (Novolin 70/30 U-100 Insulin) insulin regular human 100 unit/mL 1 sliding scale dose SUBCUT UD 11/02/18 08/30/21 History injection solution (Novolin R Regular U-100 Insulin) latanoprost (PF) 0.005 % eye drops 1 drp OPB 11/02/18 08/30/21 History levothyroxine 125 mcg tablet 125 mcg PO DAILYBB 11/02/18 08/30/21 History vfxdcs-thwcuanq-swdcrds 1 cap PO .WITH MEALS & SNACKS 11/02/18 08/30/21 History 24,000-76,000-120,000 unit capsule,delayed rel (Creon) lorazepam 0.5 mg tablet 0.5 mg PO TID PRN 11/02/18 08/30/21 History meclizine 25 mg tablet 25 mg PO TID PRN 11/02/18 08/30/21 History methotrexate sodium 2.5 mg tablet 15 mg PO WK 11/02/18 08/30/21 History multivitamin with iron 1 tab PO QAM 11/02/18 08/30/21 History nitroglycerin 0.4 mg sublingual 0.4 mg SUBLINGUAL UD PRN 11/02/18 08/30/21 History tablet omeprazole 20 mg tablet,delayed 20 mg PO QAM 11/02/18 08/30/21 History release prednisone 5 mg tablet 5 mg PO QAM 11/02/18 08/30/21 History saliva stimulant comb. no.3 1 spray MUCOUS MEMBRANE QID 11/02/18 08/30/21 History (Biotene Moisturizing Mouth) torsemide 10 mg tablet 10 mg PO QAM 11/02/18 08/30/21 History bacitracin-polymyxin B 500 3.5 g OPR TID 10/20/19 08/30/21 History unit-10,000 unit/gram eye ointment (Polycin) brimonidine 0.2 % eye drops 1 drp OPL BID 10/20/19 08/30/21 History cyanocobalamin (vitamin B-12) 1,500 mcg PO QPM 10/20/19 08/30/21 History 1,000 mcg tablet (Vitamin B-12) tizanidine 2 mg tablet 2 mg PO Q6 PRN 10/20/19 08/30/21 History insulin syringe-needle U-100 1 mL #10 ea 11/09/19 08/30/21 History 31 gauge x /16" cholecalciferol (vitamin D3) 125 50,000 unit PO WK 01/07/20 08/30/21 History mcg (5,000 unit) tablet (Vitamin D3) lisinopril 5 mg tablet 5 mg PO QAM 07/22/20 08/30/21 History hydrocodone 5 mg-acetaminophen 325 1 tab PO Q6 PRN 03/26/21 08/30/21 History mg tablet melatonin 5 mg tablet 5 mg PO HS 03/30/21 08/30/21 History Probiotic Daily 1 cap PO DAILY 08/30/21 08/30/21 History betaxolol 0.5 % eye drops 1 drp OPL BID 08/30/21 08/30/21 History magnesium oxide 400 mg (241.3 mg 400 mg PO 3XWK 08/30/21 08/30/21 History magnesium) tablet netarsudil 0.02 % eye drops 1 drp OPL HS 08/30/21 08/30/21 History (Rhopressa) potassium chloride 20 mEq 20 meq PO QAM 08/30/21 08/30/21 History tablet,extended release(part/cryst) Patient History Medical History Acute hyponatremia ALONA (acute kidney injury) Anemia Aortic stenosis Blindness Left eye (since ) Chronic back pain Chronic kidney disease, stage 3 Chronic steroid use Congestive heart failure Hx Diabetes mellitus, type 2 IDDM Diabetic neuropathy Diabetic retinopathy Glaucoma Hernia Current History of atrial fibrillation Single, brief episode (2017) Per 04/13/17 cardio note- ECHO reviewed, due to polypharmacy and confusion- recommended observation without additional procedures or cardiac medications at this time History of cancer 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), s/p surgical intervention History of gastric ulcer History of sinus problem Reason for nebulizer and inhalers prn Hyperlipidemia Hypertension Hypothyroidism Indwelling Red catheter present Ischemic cardiomyopathy Kidney stones Liver cancer Stage 1, under surveillance Migraine Myocardial Infarction Remote silent MN (10+ years ago) Pancreatic lesion Under surveillance, "no current cancer characteristics" Pancreatitis Mutliple, 15+ episodes (no current issues) Rheumatoid arthritis on Plaquenil, MTX, prednisone 5mg daily Sleep apnea CPAP SOB (shortness of breath) on exertion Transient ischemic attack (TIA) ? TIA vs CVA x2 (20+ years ago), no deficits Surgical History History of appendectomy History of bilateral cataract extraction History of biopsy of bladder showed chronic cystitis History of carpal tunnel release of both wrists History of cholecystectomy History of colonoscopy History of cystoscopy WITH STENT INSERTION X MULTIPLE History of cystoscopy Cystoscopy, right stent, right laser lithotripsy (08/11/2020): LMA 4.0 unique, atraumatic, LMA attempt x1 at [facility]. No issues per postop anesthesia progress note. History of detached retina repair x4 on right eye History of dilatation and curettage x3 History of ERCP History of esophagogastroduodenoscopy (EGD) History of liver biopsy X 2 History of lumbar discectomy History of partial thyroidectomy right side and ismis removed d/t papillary cancer History of tarsorrhaphy BILT--right eye closed shut, left eye partly closed History of tooth extraction all top teeth, most of bottom History of total hysterectomy with bilateral salpingo-oophorectomy (BSO) Nausea and vomiting after administration of anesthetic agent S/P appendectomy S/P foot surgery, left "stepped on a needle and had to have it removed" Status post laser lithotripsy of ureteral calculus x3 -> November 2019, December 2019, August 2020 Family History Father Family history of diabetes mellitus Family history of reaction to anesthesia difficulty waking Mother Family history of diabetes mellitus Sister Family history of diabetes mellitus Brother Family history of diabetes mellitus Grandmother (Maternal) Family history of diabetes mellitus Grandmother (Paternal) Family history of diabetes mellitus Son Family history of diabetes mellitus Social History Smoking Status: Never smoker Second Hand Exposure: Yes; Hx Alcohol Use: No Hx Substance Use: No Preferred Language: [place]serrat[place] Communication Ability: Impaired Communication Ability Comment: pt is blind Communication Tools: Other Visual Impairment: Blindness Mechatronics Technician Required: No Beliefs That Will Affect Care: None marital status: Current Living Situation: Family Feels Safe at Home: Yes Safety Concerns: Feels Safe At This Time Assistive Devices: Cane, CPAP, Denture - Upper, Denture - Lower and Walker Review of Systems Review of Systems: All systems reviewed & are unremarkable except as noted in HPI & below Physical Exam Constitutional: well developed, well nourished and + obese; no acute distress Eyes: Legally blind. Eyelids sewn shut bilaterally Neck: normal visual inspection Respiratory: normal respiratory effort; no respiratory distress and no labored breathing Cardiovascular: Extremities: no calf tenderness Gastrointestinal (Abdomen): Inspection/Auscultation: abdomen normal to inspection Percussion/Palpation: abdomen soft; abdomen nontender and no g uarding Musculoskeletal: Head/Neck/Chest: normocephalic Skin: Warm and dry Neurologic: awake Psychiatric: Orientation: alert, oriented x 3 and cooperative Genitourinary: Mild right flank tenderness with palpation Results & Data ([facility]) Vital Signs (Past 12 Hours) Vital Signs Temp Pulse Pulse Resp BP Pulse Ox 08/31/21 07:59 37.5 C 60 16 124/69 96 08/31/21 07:44 57 L 08/31/21 05:27 37.6 C H 08/31/21 04:07 38.3 C H 08/31/21 02:55 37.3 C 74 18 114/48 L 94 08/30/21 22:17 79 08/30/21 22:14 81 08/30/21 22:11 37.2 C 72 18 155/72 H 96 08/30/21 21:14 73 18 137/36 L 96 PG Care Time/CCT Total # of Minutes Spent Total Time Spent with Patient: Total time spent is greater than 50% in coordination of care (as documented) at patient's floor/unit and/or counseling patient: Coding Level of Care Code 83987 Initial Inpt Care Lvl 2 Diagnoses Kidney stone on right side N20.0 ALONA (acute kidney injury) N17.9 Urinary tract infection N39.0 Hematuria presence: without hematuria Urinary tract infection type: site unspecified (1) Urinary tract infection Hematuria presence: without hematuria Urinary tract infection type: site unspecified Qualified Code(s): N39.0 - Urinary tract infection, site not specified
--- NOTE | 2021-08-31 09:43 | Anesthesiology Consultation ---
Date of Service August 31, 2021 Assessment & Plan (1) Encounter for pre-operative examination: History Surgery Operation Date: 08/31/21 10:50 Proposed Procedures p Cystoscopy Right Retrograde Pyelogram with Stent Placement - Ernie Johansen, Height/Weight Height: 5 ft 4 in Weight: 124.6 kg Allergies Allergy/AdvReac Type Severity Reaction Status Date / Time cephalexin Allergy Severe Anaphylaxis Verified 08/30/21 18:06 Cephalosporins Allergy Severe Anaphylaxis Verified 08/30/21 18:06 lidocaine [From Lidoderm] Allergy Intermediate Rash Verified 08/30/21 18:06 Sulfa (Sulfonamide Allergy Intermediate Hives Verified 08/30/21 18:06 Antibiotics) butorphanol AdvReac Intermediate Rapid heart Verified 08/30/21 18:06 ciprofloxacin AdvReac Mild Nausea Verified 08/30/21 18:06 Medications Home Medications Medication Instructions Recorded Confirmed Last Taken albuterol sulfate 2.5 mg INHALATION Q4 PRN 11/02/18 08/30/21 08/28/19 albuterol sulfate 90 mcg/actuation 2 puff INHALATION QID 11/02/18 08/30/21 08/30/21 aerosol inhaler (ProAir HFA) ascorbic acid (vitamin C) 1,000 mg 1,000 g PO QAM 11/02/18 08/30/21 08/30/21 tablet aspirin 81 mg chewable tablet 162 mg PO 11/02/18 08/30/21 08/29/21 (Aspirin Childrens) atorvastatin 40 mg tablet 40 mg PO QAM 11/02/18 08/30/21 08/30/21 erythromycin 5 mg/gram (0.5 %) eye 1 applic OPL QID 11/02/18 08/30/21 08/30/21 ointment fluticasone propionate 50 2 spray INTRANASAL QAM 11/02/18 08/30/21 08/30/21 mcg/actuation nasal spray,suspension (Flonase Allergy Relief) folic acid 1 mg tablet 1 mg PO QAM 11/02/18 08/30/21 08/30/21 gabapentin 400 mg capsule 400 mg PO TID 11/02/18 08/30/21 08/30/21 hydroxychloroquine 200 mg tablet 400 mg PO 11/02/18 08/30/21 08/29/21 (Plaquenil) insulin human U-100 NPH-regulr 68 unit SUBCUT BID 11/02/18 08/30/21 08/30/21 70-30 mix 100 unit/mL subcutaneous susp (Novolin 70/30 U-100 Insulin) insulin regular human 100 unit/mL 1 sliding scale dose SUBCUT UD 11/02/18 08/30/21 08/30/21 injection solution (Novolin R Regular U-100 Insulin) latanoprost (PF) 0.005 % eye drops 1 drp OPB HS 11/02/18 08/30/21 08/29/21 levothyroxine 125 mcg tablet 125 mcg PO DAILYBB 11/02/18 08/30/21 08/30/21 xsfull-tufihfmo-rpdgmpw 1 cap PO .WITH MEALS & SNACKS 11/02/18 08/30/21 08/30/21 24,000-76,000-120,000 unit capsule,delayed rel (Creon) lorazepam 0.5 mg tablet 0.5 mg PO TID PRN 11/02/18 08/30/21 08/30/21 meclizine 25 mg tablet 25 mg PO TID PRN 11/02/18 08/30/21 01/04/19 methotrexate sodium 2.5 mg tablet 15 mg PO WK 11/02/18 08/30/21 08/25/21 multivitamin with iron 1 tab PO QAM 11/02/18 08/30/21 08/30/21 nitroglycerin 0.4 mg sublingual 0.4 mg SUBLINGUAL UD PRN 11/02/18 08/30/21 Unknown tablet omeprazole 20 mg tablet,delayed 20 mg PO QAM 11/02/18 08/30/21 08/30/21 release prednisone 5 mg tablet 5 mg PO QAM 11/02/18 08/30/21 08/30/21 saliva stimulant comb. no.3 1 spray MUCOUS MEMBRANE QID 11/02/18 08/30/21 08/30/21 (Biotene Moisturizing Mouth) torsemide 10 mg tablet 10 mg PO QAM 11/02/18 08/30/21 08/30/21 bacitracin-polymyxin B 500 3.5 g OPR TID 10/20/19 08/30/21 08/30/21 unit-10,000 unit/gram eye ointment (Polycin) brimonidine 0.2 % eye drops 1 drp OPL BID 10/20/19 08/30/21 08/30/21 cyanocobalamin (vitamin B-12) 1,500 mcg PO QPM 10/20/19 08/30/21 08/29/21 1,000 mcg tablet (Vitamin B-12) tizanidine 2 mg tablet 2 mg PO Q6 PRN 10/20/19 08/30/21 08/30/21 insulin syringe-needle U-100 1 mL #10 ea 11/09/19 08/30/21 Unknown 31 gauge x 08/24" cholecalciferol (vitamin D3) 125 50,000 unit PO WK 01/07/20 08/30/21 08/30/21 mcg (5,000 unit) tablet (Vitamin D3) lisinopril 5 mg tablet 5 mg PO QAM 07/22/20 08/30/21 08/30/21 hydrocodone 5 mg-acetaminophen 325 1 tab PO Q6 PRN 03/26/21 08/30/21 03/30/21 05:45 mg tablet melatonin 5 mg tablet 5 mg PO HS 03/30/21 08/30/21 08/29/21 Probiotic Daily 1 cap PO DAILY 08/30/21 08/30/21 08/30/21 betaxolol 0.5 % eye drops 1 drp OPL BID 08/30/21 08/30/21 08/30/21 magnesium oxide 400 mg (241.3 mg 400 mg PO 3XWK 08/30/21 08/30/21 08/28/21 magnesium) tablet netarsudil 0.02 % eye drops 1 drp OPL 08/30/21 08/30/21 08/29/21 (Rhopressa) potassium chloride 20 mEq 20 meq PO QAM 08/30/21 08/30/21 08/30/21 tablet,extended release(part/cryst) Active Medications Generic Name Dose Route Start Last Admin Trade Name Freq PRN Reason Stop Dose Admin Acetaminophen 650 mg 08/30/21 20:45 08/31/21 04:07 Acetaminophen 325 Mg Tab PO 09/29/21 20:44 650 mg Q4H PRN Administration Pain or Fever Amlodipine Besylate 2.5 mg 08/30/21 22:55 08/31/21 00:14 Amlodipine Besylate 5 Mg Tab PO 09/29/21 22:54 2.5 mg HS LIBBY Administration Lipase/Protease/Amylase 2 cap 08/31/21 08:00 08/31/21 08:15 Pancreaze (Lipase 10,500u) Cap PO 09/30/21 07:59 2 cap TIDM LIBBY Administration Atorvastatin Calcium 40 mg 08/31/21 09:00 08/31/21 08:15 Atorvastatin 40 Mg Tab PO 09/30/21 08:59 40 mg QAM LIBBY Administration Bacitracin/Polymyxin B Sulfate 1 appln 08/30/21 22:22 08/31/21 08:17 Bacitracin/Polymyx B Oph Oint 3.5 Gm Tube OPR 09/06/21 22:21 1 appln TID LIBBY Administration Betaxolol HCl 1 drops 08/30/21 22:22 08/31/21 00:01 Betaxolol Hcl 0.5% Op 5 Ml Btl OPL 09/29/21 22:21 Not Given BID LIBBY Brimonidine Tartrate 1 drops 08/30/21 22:22 08/31/21 08:16 Brimonidine Tartrate 0.2% 5ml OPL 09/29/21 22:21 1 drops BID LIBBY Administration Cyanocobalamin 1,500 mcg 08/30/21 22:22 08/31/21 00:01 Cyanocobalamin (B-12) 500 Mcg Tablet PO 09/29/21 22:21 1,500 mcg QPM LIBBY Administration Erythromycin 1 appln 08/30/21 22:22 08/31/21 08:16 Erythromycin Op Oint 5 Mg/Gm 3.5 Gm Tube OPL 09/07/21 22:21 1 appln QID LIBBY Administration Fluticasone Propionate 2 sprays 08/31/21 09:00 08/31/21 08:16 Fluticasone Propionate Na Spr 16 Gm Btl NA 09/30/21 08:59 2 sprays QAM LIBBY Administration Folic Acid 1 mg 08/31/21 09:00 08/31/21 08:15 Folic Acid 1 Mg Tab PO 09/30/21 08:59 1 mg QAM LIBBY Administration Gabapentin 200 mg 08/30/21 22:22 08/31/21 08:15 Gabapentin 100 Mg Cap PO 09/29/21 22:21 200 mg TID LIBBY Administration Hydroxychloroquine Sulfate 400 mg 08/30/21 22:22 08/31/21 00:03 Hydroxychloroquine Sulfate 200 Mg Tab PO 09/29/21 22:21 400 mg HS LIBBY Administration Piperacillin Sod/Tazobactam 120 mls @ 30 mls/hr 08/31/21 00:00 08/31/21 08:17 Sod 4.5 gm/ Dextrose IV 09/02/21 00:00 30 mls/hr Q8H LIBBY Administration Protocol Sodium Chloride 1,000 mls @ 40 mls/hr 08/31/21 05:15 08/31/21 05:21 Nss 1000ml IV 09/30/21 05:14 40 mls/hr .Q24H LIBBY Administration Insulin Aspart 0 units 08/30/21 22:22 08/31/21 07:38 Insulin Aspart Per Unit SC 09/29/21 22:21 Not Given ACHS LIBBY Lactobacillus Acidophilus 2 cap 08/31/21 09:00 08/31/21 08:15 Advanced Probiotic 1250 Mg Capsule PO 09/30/21 08:59 2 cap DAILY LIBBY Administration Latanoprost 1 drops 08/31/21 00:45 08/31/21 01:00 Latanoprost 0.005% Op Soln 2.5 Ml Btl OP 09/30/21 00:44 1 drops HS LIBBY Administration Levothyroxine Sodium 125 mcg 08/31/21 06:30 08/31/21 05:35 Levothyroxine Sodium 125 Mcg Tablet PO 09/30/21 06:29 125 mcg DAILYBB LIBBY Administration Lorazepam 0.5 mg 08/30/21 22:22 08/31/21 01:01 Lorazepam 0.5 Mg Tab PO 09/29/21 22:21 0.5 mg TID PRN Administration Anxiety Melatonin 4.5 mg 08/30/21 22:22 08/31/21 00:03 Melatonin 3 Mg Tab PO 09/29/21 22:21 4.5 mg HS LIBBY Administration Miscellaneous 1 ea 08/31/21 00:00 08/31/21 00:43 Order Awaiting Action: Netarsudil [Rhopressa] 0.02 % Drops N/A 09/30/21 00:00 Not Given QS LIBBY Pantoprazole Sodium 40 mg 08/31/21 09:00 08/31/21 08:15 Pantoprazole 40 Mg Tab PO 09/30/21 08:59 40 mg QAM LIBBY Administration Prednisone 5 mg 08/31/21 09:00 08/31/21 08:15 Prednisone 5 Mg Tab PO 09/30/21 08:59 5 mg QAM LIBBY Administration Tizanidine HCl 2 mg 08/30/21 22:22 08/31/21 04:14 Tizanidine Hcl 4 Mg Tablet PO 09/29/21 22:21 2 mg Q6 PRN Administration Muscle Spasm Past Medical History Medical History Acute hyponatremia [place] (acute kidney injury) Anemia Aortic stenosis Blindness Left eye (since ) Chronic back pain Chronic kidney disease, stage 3 Chronic steroid use Congestive heart failure Hx Diabetes mellitus, type 2 IDDM Diabetic neuropathy Diabetic retinopathy Glaucoma Hernia Current History of atrial fibrillation Single, brief episode (2017) Per 04/13/17 cardio note- ECHO reviewed, due to polypharmacy and confusion- recommended observation without additional procedures or cardiac medications at this time History of cancer 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), s/p surgical intervention History of gastric ulcer History of sinus problem Reason for nebulizer and inhalers prn Hyperlipidemia Hypertension Hypothyroidism Indwelling Red catheter present Ischemic cardiomyopathy Kidney stones Liver cancer Stage 1, under surveillance Migraine Myocardial Infarction Remote silent ND (10+ years ago) Pancreatic lesion Under surveillance, "no current cancer characteristics" Pancreatitis Mutliple, 15+ episodes (no current issues) Rheumatoid arthritis on Plaquenil, MTX, prednisone 5mg daily Sleep apnea CPAP SOB (shortness of breath) on exertion Transient ischemic attack (TIA) ? TIA vs CVA x2 (20+ years ago), no deficits Past Family History Family History Father Family history of diabetes mellitus Family history of reaction to anesthesia difficulty waking Mother Family history of diabetes mellitus Sister Family history of diabetes mellitus Brother Family history of diabetes mellitus Grandmother (Maternal) Family history of diabetes mellitus Grandmother (Paternal) Family history of diabetes mellitus Son Family history of diabetes mellitus Past Surgical History Surgical History History of appendectomy History of bilateral cataract extraction History of biopsy of bladder showed chronic cystitis History of carpal tunnel release of both wrists History of cholecystectomy History of colonoscopy History of cystoscopy WITH STENT INSERTION X MULTIPLE History of cystoscopy Cystoscopy, right stent, right laser lithotripsy (08/11/2020): LMA 4.0 unique, atraumatic, LMA attempt x1 at [facility]. No issues per postop anesthesia progress note. History of detached retina repair x4 on right eye History of dilatation and curettage x3 History of ERCP History of esophagogastroduodenoscopy (EGD) History of liver biopsy X 2 History of lumbar discectomy History of partial thyroidectomy right side and ismis removed d/t papillary cancer History of tarsorrhaphy BILT--right eye closed shut, left eye partly closed History of tooth extraction all top teeth, most of bottom History of total hysterectomy with bilateral salpingo-oophorectomy (BSO) Nausea and vomiting after administration of anesthetic agent S/P appendectomy S/P foot surgery, left "stepped on a needle and had to have it removed" Status post laser lithotripsy of ureteral calculus x3 -> November 2019, December 2019, August 2020 Social History Smoking Status: Never smoker Hx Alcohol Use: No Hx Substance Use: No substance use type: does not use Physical Exam Vital Signs Last Vital Signs Temp 37.5 C 08/31/21 07:59 Pulse 60 08/31/21 07:59 Resp 16 08/31/21 07:59 BP 124/69 08/31/21 07:59 Pulse Ox 96 08/31/21 07:59 Testing Laboratory Results 08/31/21 04:05 PT 10.8 Seconds (9.0-12.0) 08/30/21 15:27 INR 1.0 (0.9-1.1) 08/30/21 15:27 APTT 31.4 Seconds (21.0-31.0) H 08/30/21 15:27 Urine Color Yellow 08/30/21 18:43 Urine Appearance Clear (Clear) 08/30/21 18:43 Urine pH 5.5 (4.5-7.5) 08/30/21 18:43 Ur Specific [place] 1.005 (1.000-1.030) 08/30/21 18:43 Urine Protein Negative (Negative) 08/30/21 18:43 Urine Glucose (UA) Negative (Negative) 08/30/21 18:43 Urine Ketones Negative (Negative) 08/30/21 18:43 Urine Nitrite Negative (Negative) 08/30/21 18:43 Ur Leukocyte Esterase 2+ (Negative) H 08/30/21 18:43 Urine WBC (Auto) 10-30 /hpf (0-5) H 08/30/21 18:43 Urine RBC (Auto) 5-10 /hpf (0-4) H 08/30/21 18:43 U Hyaline Cast (Auto) 1-5 /lpf (0-5) 08/30/21 18:43 U Epithel Cells (Auto) >30 /lpf (0-5) H 08/30/21 18:43 Urine Bacteria (Auto) Negative (Negative) 08/30/21 18:43 Blood Type O Positive 08/30/21 22:40 Antibody Screen NEGATIVE 08/30/21 22:40 08/31/21 08/31/21 07:25 00:20 POC Glucose 94 127 H Electrocardiogram Date: 08/30/21 Findings: + AFIB @ (85)
--- NOTE | 2021-08-31 10:19 | Cardiology Consultation ---
Date of Consultation August 31, 2021 Assessment & Plan (1) Kidney stone on right side: (2) Acute pyelonephritis: (3) Diabetes: (4) Aortic stenosis: Utilizing the geriatric risk assessment tool, for this surgery its estimated to be 1.6%. She has had known asymptomatic bradycardia for a long time and and actually went through a urologic procedure earlier this year without sequela. A permanent pacemaker is currently contraindicated due to the sepsis and potential for infection of the device. A temporary wire I believe is just going to add to the overall risk of the surgery. She does not really have a choice and requires this surgery due to potential of complicated urinary tract infection and progressive renal failure. Therefore I believe she should proceed to surgery. No additional cardiac testing will change this risk assessment. Should the patient have significant bradycardia during the procedure then I would consider utilizing atropine on a as needed basis or a dopamine as an infusion. History of Present Illness Attending Physician: Cm Chaudhary MD History of Present Illness This is a 71-year-old female with a previous cardiac history as outlined below. She has a history of carcinoma of the liver. She is also had multiple recurrences of renal calculi as well as complicated urinary tract infections. She was admitted with acute renal failure secondary to renal calculi. Urology has evaluated her and would like to take her to the OR to have stent placement. She has a history of bradycardia as outlined below. On the telemetry overnight she had a 4.2-second pause. She has a known history of bradycardia with heart rates typically in the 40s and 50s where she is asymptomatic. She has been followed at our clinic and was seen in March prior to a urologic procedure for renal calculi at which time she was noted to be bradycardic but because of her recurrent episodes of sepsis was felt she required the surgery and she was allowed to proceed. She had no cardiac sequela during or following that surgery. Consideration has been given for an elective pacemaker however, given her multiple medical problems including carcinoma of the liver and recurrent septic episodes with possible infection of any devices that were implanted, continued observation and conservative management was felt indicated. She has no ongoing cardiac complaints today and would like to have the surgery completed today if possible. Past medical history: 1.Moderate aortic valve stenosis. Repeat resting echocardiography in March 2022. 2.History of cardiomyopathy. Ejection fraction normal, 50 to 54%, via March 2021 resting echocardiogram. Volume status: Compensated. Continue the current diuretic regimen. Bradycardia notably precludes use of evidence based beta- gio 3.Presumed underlying coronary artery disease. Options discussed. Continue medical management. Continue aspirin. Target LDL goal of less than 70 mg/dL. LDL cholesterol 52 mg/dL on April 28, 2020. Continue atorvastatin 40 mg/day. 4.Bilateral carotid bruits. Mild disease observed in 2013. Refer for a bilateral carotid duplex. 5.Bradycardia. Chart history of paroxysmal atrial fibrillation. Reconsider referral for Zio monitor at next evaluation. 6.Hypomagnesemia. Allergies Allergy/AdvReac Type Severity Reaction Status Date / Time cephalexin Allergy Severe Anaphylaxis Verified 08/30/21 18:06 Cephalosporins Allergy Severe Anaphylaxis Verified 08/30/21 18:06 lidocaine [From Lidoderm] Allergy Intermediate Rash Verified 08/30/21 18:06 Sulfa (Sulfonamide Allergy Intermediate Hives Verified 08/30/21 18:06 Antibiotics) butorphanol AdvReac Intermediate Rapid heart Verified 08/30/21 18:06 ciprofloxacin AdvReac Mild Nausea Verified 08/30/21 18:06 Home Medications Medication Instructions Recorded Confirmed Type albuterol sulfate 2.5 mg INHALATION Q4 PRN 11/02/18 08/30/21 History albuterol sulfate 90 mcg/actuation 2 puff INHALATION QID 11/02/18 08/30/21 History aerosol inhaler (ProAir HFA) ascorbic acid (vitamin C) 1,000 mg 1,000 g PO QAM 11/02/18 08/30/21 History tablet aspirin 81 mg chewable tablet 162 mg PO HS 11/02/18 08/30/21 History (Aspirin Childrens) atorvastatin 40 mg tablet 40 mg PO QAM 11/02/18 08/30/21 History erythromycin 5 mg/gram (0.5 %) eye 1 applic OPL QID 11/02/18 08/30/21 History ointment fluticasone propionate 50 2 spray INTRANASAL QAM 11/02/18 08/30/21 History mcg/actuation nasal spray,suspension (Flonase Allergy Relief) folic acid 1 mg tablet 1 mg PO QAM 11/02/18 08/30/21 History gabapentin 400 mg capsule 400 mg PO TID 11/02/18 08/30/21 History hydroxychloroquine 200 mg tablet 400 mg PO 11/02/18 08/30/21 History (Plaquenil) insulin human U-100 NPH-regulr 68 unit SUBCUT BID 11/02/18 08/30/21 History 70-30 mix 100 unit/mL subcutaneous susp (Novolin 70/30 U-100 Insulin) insulin regular human 100 unit/mL 1 sliding scale dose SUBCUT UD 11/02/18 08/30/21 History injection solution (Novolin R Regular U-100 Insulin) latanoprost (PF) 0.005 % eye drops 1 drp OPB HS 11/02/18 08/30/21 History levothyroxine 125 mcg tablet 125 mcg PO DAILYBB 11/02/18 08/30/21 History dcibdx-zpsbzstz-vyedenb 1 cap PO .WITH MEALS & SNACKS 11/02/18 08/30/21 History 24,000-76,000-120,000 unit capsule,delayed rel (Creon) lorazepam 0.5 mg tablet 0.5 mg PO TID PRN 11/02/18 08/30/21 History meclizine 25 mg tablet 25 mg PO TID PRN 11/02/18 08/30/21 History methotrexate sodium 2.5 mg tablet 15 mg PO WK 11/02/18 08/30/21 History multivitamin with iron 1 tab PO QAM 11/02/18 08/30/21 History nitroglycerin 0.4 mg sublingual 0.4 mg SUBLINGUAL UD PRN 11/02/18 08/30/21 History tablet omeprazole 20 mg tablet,delayed 20 mg PO QAM 11/02/18 08/30/21 History release prednisone 5 mg tablet 5 mg PO QAM 11/02/18 08/30/21 History saliva stimulant comb. no.3 1 spray MUCOUS MEMBRANE QID 11/02/18 08/30/21 History (Biotene Moisturizing Mouth) torsemide 10 mg tablet 10 mg PO QAM 11/02/18 08/30/21 History bacitracin-polymyxin B 500 3.5 g OPR TID 10/20/19 08/30/21 History unit-10,000 unit/gram eye ointment (Polycin) brimonidine 0.2 % eye drops 1 drp OPL BID 10/20/19 08/30/21 History cyanocobalamin (vitamin B-12) 1,500 mcg PO QPM 10/20/19 08/30/21 History 1,000 mcg tablet (Vitamin B-12) tizanidine 2 mg tablet 2 mg PO Q6 PRN 10/20/19 08/30/21 History insulin syringe-needle U-100 1 mL #10 ea 11/09/19 08/30/21 History 31 gauge x /" cholecalciferol (vitamin D3) 125 50,000 unit PO WK 01/07/20 08/30/21 History mcg (5,000 unit) tablet (Vitamin D3) lisinopril 5 mg tablet 5 mg PO QAM 07/22/20 08/30/21 History hydrocodone 5 mg-acetaminophen 325 1 tab PO Q6 PRN 03/26/21 08/30/21 History mg tablet melatonin 5 mg tablet 5 mg PO HS 03/30/21 08/30/21 History Probiotic Daily 1 cap PO DAILY 08/30/21 08/30/21 History betaxolol 0.5 % eye drops 1 drp OPL BID 08/30/21 08/30/21 History magnesium oxide 400 mg (241.3 mg 400 mg PO 3XWK 08/30/21 08/30/21 History magnesium) tablet netarsudil 0.02 % eye drops 1 drp OPL HS 08/30/21 08/30/21 History (Rhopressa) potassium chloride 20 mEq 20 meq PO QAM 08/30/21 08/30/21 History tablet,extended release(part/cryst) Patient History Medical History Acute hyponatremia ALONA (acute kidney injury) Anemia Aortic stenosis Blindness Left eye (since ) Chronic back pain Chronic kidney disease, stage 3 Chronic steroid use Congestive heart failure Hx Diabetes mellitus, type 2 IDDM Diabetic neuropathy Diabetic retinopathy Glaucoma Hernia Current History of atrial fibrillation Single, brief episode (2018) Per 04/13/17 cardio note- ECHO reviewed, due to polypharmacy and confusion- recommended observation without additional procedures or cardiac medications at this time History of cancer 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), s/p surgical intervention History of gastric ulcer History of sinus problem Reason for nebulizer and inhalers prn Hyperlipidemia Hypertension Hypothyroidism Indwelling Red catheter present Ischemic cardiomyopathy Kidney stones Liver cancer Stage 1, under surveillance Migraine Myocardial Infarction Remote silent MN (10+ years ago) Pancreatic lesion Under surveillance, "no current cancer characteristics" Pancreatitis Mutliple, 15+ episodes (no current issues) Rheumatoid arthritis on Plaquenil, MTX, prednisone 5mg daily Sleep apnea CPAP SOB (shortness of breath) on exertion Transient ischemic attack (TIA) ? TIA vs CVA x2 (20+ years ago), no deficits Surgical History History of appendectomy History of bilateral cataract extraction History of biopsy of bladder showed chronic cystitis History of carpal tunnel release of both wrists History of cholecystectomy History of colonoscopy History of cystoscopy WITH STENT INSERTION X MULTIPLE History of cystoscopy Cystoscopy, right stent, right laser lithotripsy (08/11/2020): LMA 4.0 unique, atraumatic, LMA attempt x1 at [facility]. No issues per postop anesthesia progress note. History of detached retina repair x4 on right eye History of dilatation and curettage x3 History of ERCP History of esophagogastroduodenoscopy (EGD) History of liver biopsy X 2 History of lumbar discectomy History of partial thyroidectomy right side and ismis removed d/t papillary cancer History of tarsorrhaphy BILT--right eye closed shut, left eye partly closed History of tooth extraction all top teeth, most of bottom History of total hysterectomy with bilateral salpingo-oophorectomy (BSO) Nausea and vomiting after administration of anesthetic agent S/P appendectomy S/P foot surgery, left "stepped on a needle and had to have it removed" Status post laser lithotripsy of ureteral calculus x3 -> November 2019, December 2019, August 2020 Family History Father Family history of diabetes mellitus Family history of reaction to anesthesia difficulty waking Mother Family history of diabetes mellitus Sister Family history of diabetes mellitus Brother Family history of diabetes mellitus Grandmother (Maternal) Family history of diabetes mellitus Grandmother (Paternal) Family history of diabetes mellitus Son Family history of diabetes mellitus Social History Smoking Status: Never smoker Second Hand Exposure: Yes; Hx Alcohol Use: No Hx Substance Use: No Preferred Language: Salvadorean Communication Ability: Impaired Communication Ability Comment: pt is blind Communication Tools: Other Visual Impairment: Blindness Plant Associate 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 All other 10 point review of systems are negative. Physical Exam Physical Exam: General: no acute distress and stated age Head: normocephalic, no masses, lesions, tenderness or abnormalities Eyes: conjunctiva are pink and non-injected, sclera clear Neck: supple, no adenopathy, no bruits, normal jugular venous pulse, no hepatojugular reflux Chest: normal shape and normal respiratory effort Lungs: clear to auscultation and percussion Cardiac Exam: - regular rate & rhythm, systolic murmur- normal S1, normal S2 Pulses: 2(+) throughout Abdomen: abdomen soft, non-tender, no abnormal masses and no hepatosplenomegaly Musculoskeletal: no gait disturbance, no joint inflammation, no deforming arthritis Extremities: no edema and no cyanosis Neuro: grossly normal exam Results & Data ([facility]) Vital Signs (Past 12 Hours) Vital Signs Temp Pulse Pulse Resp BP Pulse Ox 08/31/21 07:59 37.5 C 60 16 124/69 96 08/31/21 07:44 57 L 08/31/21 05:27 37.6 C H 08/31/21 04:07 38.3 C H 08/31/21 02:55 37.3 C 74 18 114/48 L 94 Laboratory Results Laboratory Results - last 24 hr 08/30/21 08/30/21 08/30/21 15:27 15:27 15:27 WBC 19.21 H RBC 3.61 L Hgb 11.3 L Hct 33.2 L MCV 92.0 MCH 31.3 MCHC 34.0 RDW Std Deviation 49.1 H RDW Coeff of Juani 14.6 H Plt Count 188 MPV 10.6 H Immature Gran % (Auto) 0.5 Neut % (Auto) 85.6 Lymph % (Auto) 3.6 Parmer % (Auto) 10.0 Eos % (Auto) 0.2 Baso % (Auto) 0.1 Neut # (Auto) 16.46 H Lymph # (Auto) 0.69 L Parmer # (Auto) 1.93 H Eos # (Auto) 0.03 Baso # (Auto) 0.01 Immature Gran # (Auto) 0.09 H RBC Morphology PT 10.8 INR 1.0 APTT 31.4 H PTT Ratio 1.1 Sodium 122 L Potassium 4.0 Chloride 90 L Carbon Dioxide 22 Anion Gap 10 BUN 50 H Creatinine 1.95 H Est Cr Clr Drug Dosing Not Reportable Est GFR ( Amer) 29.3 Est GFR (Non-Af Amer) 25.3 BUN/Creatinine Ratio 25.6 H Glucose 134 H POC Glucose Osmolality Calcium 8.8 Magnesium Total Bilirubin 0.8 AST 12 L ALT 14 Alkaline Phosphatase 58 Troponin I High Sens 21.8 H Total Protein 6.3 Albumin 3.5 Globulin 2.8 Albumin/Globulin Ratio 1.3 Lipase 28 TSH Urine Color Urine Appearance Urine pH Ur Specific Wil[place] Urine Protein Urine Glucose (UA) Urine Ketones Urine Blood Urine Nitrite Urine Bilirubin Urine Urobilinogen Ur Leukocyte Esterase Urine WBC (Auto) Urine RBC (Auto) U Hyaline Cast (Auto) U Epithel Cells (Auto) Urine Bacteria (Auto) Urine Osmolality Ur Random Sodium SARS-CoV-2, RNA, NAAT Blood Type Antibody Screen 08/30/21 08/30/21 08/30/21 15:27 15:27 15:27 WBC RBC Hgb Hct MCV MCH MCHC RDW Std Deviation RDW Coeff of Juani Plt Count MPV Immature Gran % (Auto) Neut % (Auto) Lymph % (Auto) Parmer % (Auto) Eos % (Auto) Baso % (Auto) Neut # (Auto) Lymph # (Auto) Parmer # (Auto) Eos # (Auto) Baso # (Auto) Immature Gran # (Auto) RBC Morphology PT INR APTT PTT Ratio Sodium Potassium Chloride Carbon Dioxide Anion Gap BUN Creatinine Est Cr Clr Drug Dosing Est GFR ( Amer) Est GFR (Non-Af Amer) BUN/Creatinine Ratio Glucose POC Glucose Osmolality 271 L Calcium Magnesium 1.4 L Total Bilirubin AST ALT Alkaline Phosphatase Troponin I High Sens Total Protein Albumin Globulin Albumin/Globulin Ratio Lipase TSH 0.852 Urine Color Urine Appearance Urine pH Ur Specific Wil[place] Urine Protein Urine Glucose (UA) Urine Ketones Urine Blood Urine Nitrite Urine Bilirubin Urine Urobilinogen Ur Leukocyte Esterase Urine WBC (Auto) Urine RBC (Auto) U Hyaline Cast (Auto) U Epithel Cells (Auto) Urine Bacteria (Auto) Urine Osmolality Ur Random Sodium SARS-CoV-2, RNA, NAAT Blood Type Antibody Screen 08/30/21 08/30/21 08/30/21 18:43 18:43 18:43 WBC RBC Hgb Hct MCV MCH MCHC RDW Std Deviation RDW Coeff of Juani Plt Count MPV Immature Gran % (Auto) Neut % (Auto) Lymph % (Auto) Parmer % (Auto) Eos % (Auto) Baso % (Auto) Neut # (Auto) Lymph # (Auto) Parmer # (Auto) Eos # (Auto) Baso # (Auto) Immature Gran # (Auto) RBC Morphology PT INR APTT PTT Ratio Sodium Potassium Chloride Carbon Dioxide Anion Gap BUN Creatinine Est Cr Clr Drug Dosing Est GFR ( Amer) Est GFR (Non-Af Amer) BUN/Creatinine Ratio Glucose POC Glucose Osmolality Calcium Magnesium Total Bilirubin AST ALT Alkaline Phosphatase Troponin I High Sens Total Protein Albumin Globulin Albumin/Globulin Ratio Lipase TSH Urine Color Yellow Urine Appearance Clear Urine pH 5.5 Ur Specific Wilton 1.005 Urine Protein Negative Urine Glucose (UA) Negative Urine Ketones Negative Urine Blood 2+ H Urine Nitrite Negative Urine Bilirubin Negative Urine Urobilinogen Negative Ur Leukocyte Esterase 2+ H Urine WBC (Auto) 10-30 H Urine RBC (Auto) 5-10 H U Hyaline Cast (Auto) 1-5 U Epithel Cells (Auto) >30 H Urine Bacteria (Auto) Negative Urine Osmolality 130 L Ur Random Sodium 12 SARS-CoV-2, RNA, NAAT Blood Type Antibody Screen 08/30/21 08/30/21 08/30/21 19:35 22:06 22:40 WBC RBC Hgb Hct MCV MCH MCHC RDW Std Deviation RDW Coeff of Juani Plt Count MPV Immature Gran % (Auto) Neut % (Auto) Lymph % (Auto) Parmer % (Auto) Eos % (Auto) Baso % (Auto) Neut # (Auto) Lymph # (Auto) Parmer # (Auto) Eos # (Auto) Baso # (Auto) Immature Gran # (Auto) RBC Morphology PT INR APTT PTT Ratio Sodium 128 L Potassium 3.9 Chloride 94 L Carbon Dioxide 23 Anion Gap 11 BUN 46 H Creatinine 1.76 H Est Cr Clr Drug Dosing 37.7 Est GFR ( Amer) 33.1 Est GFR (Non-Af Amer) 28.6 BUN/Creatinine Ratio 26.1 H Glucose 135 H POC Glucose 124 H Osmolality Calcium 9.0 Magnesium Total Bilirubin AST ALT Alkaline Phosphatase Troponin I High Sens 26.7 H Total Protein Albumin Globulin Albumin/Globulin Ratio Lipase TSH Urine Color Urine Appearance Urine pH Ur Specific Wil[place] Urine Protein Urine Glucose (UA) Urine Ketones Urine Blood Urine Nitrite Urine Bilirubin Urine Urobilinogen Ur Leukocyte Esterase Urine WBC (Auto) Urine RBC (Auto) U Hyaline Cast (Auto) U Epithel Cells (Auto) Urine Bacteria (Auto) Urine Osmolality Ur Random Sodium SARS-CoV-2, RNA, NAAT NEGATIVE Blood Type Antibody Screen 08/30/21 08/30/21 08/31/21 22:40 22:40 00:20 WBC RBC Hgb 11.8 L Hct 34.6 L MCV MCH MCHC RDW Std Deviation RDW Coeff of Juani Plt Count MPV Immature Gran % (Auto) Neut % (Auto) Lymph % (Auto) Parmer % (Auto) Eos % (Auto) Baso % (Auto) Neut # (Auto) Lymph # (Auto) Parmer # (Auto) Eos # (Auto) Baso # (Auto) Immature Gran # (Auto) RBC Morphology PT INR APTT PTT Ratio Sodium Potassium Chloride Carbon Dioxide Anion Gap BUN Creatinine Est Cr Clr Drug Dosing Est GFR ( Amer) Est GFR (Non-Af Amer) BUN/Creatinine Ratio Glucose POC Glucose 127 H Osmolality Calcium Magnesium Total Bilirubin AST ALT Alkaline Phosphatase Troponin I High Sens Total Protein Albumin Globulin Albumin/Globulin Ratio Lipase TSH Urine Color Urine Appearance Urine pH Ur Specific [place] Urine Protein Urine Glucose (UA) Urine Ketones Urine Blood Urine Nitrite Urine Bilirubin Urine Urobilinogen Ur Leukocyte Esterase Urine WBC (Auto) Urine RBC (Auto) U Hyaline Cast (Auto) U Epithel Cells (Auto) Urine Bacteria (Auto) Urine Osmolality Ur Random Sodium SARS-CoV-2, RNA, NAAT Blood Type O Positive Antibody Screen NEGATIVE 08/31/21 08/31/21 08/31/21 04:05 04:05 07:25 WBC 15.80 H RBC 3.54 L Hgb 11.0 L Hct 32.2 L MCV 91.0 MCH 31.1 MCHC 34.2 RDW Std Deviation 48.1 H RDW Coeff of Juani 14.6 H Plt Count 178 MPV 10.0 Immature Gran % (Auto) 0.4 Neut % (Auto) 85.8 Lymph % (Auto) 4.2 Parmer % (Auto) 9.2 Eos % (Auto) 0.3 Baso % (Auto) 0.1 Neut # (Auto) 13.55 H Lymph # (Auto) 0.67 L Parmer # (Auto) 1.46 H Eos # (Auto) 0.04 Baso # (Auto) 0.01 Immature Gran # (Auto) 0.07 H RBC Morphology Unremarkable PT INR APTT PTT Ratio Sodium 128 L Potassium 3.7 Chloride 96 L Carbon Dioxide 22 Anion Gap 10 BUN 45 H Creatinine 1.68 H Est Cr Clr Drug Dosing 39.5 Est GFR ( Amer) 35.1 Est GFR (Non-Af Amer) 30.2 BUN/Creatinine Ratio 26.8 H Glucose 154 H POC Glucose 94 Osmolality Calcium 8.6 Magnesium 2.1 Total Bilirubin AST ALT Alkaline Phosphatase Troponin I High Sens 34.6 H Total Protein Albumin Globulin Albumin/Globulin Ratio Lipase TSH Urine Color Urine Appearance Urine pH Ur Specific [place] Urine Protein Urine Glucose (UA) Urine Ketones Urine Blood Urine Nitrite Urine Bilirubin Urine Urobilinogen Ur Leukocyte Esterase Urine WBC (Auto) Urine RBC (Auto) U Hyaline Cast (Auto) U Epithel Cells (Auto) Urine Bacteria (Auto) Urine Osmolality Ur Random Sodium SARS-CoV-2, RNA, NAAT Blood Type Antibody Screen 08/31/21 10:33 WBC RBC Hgb Hct MCV MCH MCHC RDW Std Deviation RDW Coeff of Juani Plt Count MPV Immature Gran % (Auto) Neut % (Auto) Lymph % (Auto) Parmer % (Auto) Eos % (Auto) Baso % (Auto) Neut # (Auto) Lymph # (Auto) Parmer # (Auto) Eos # (Auto) Baso # (Auto) Immature Gran # (Auto) RBC Morphology PT INR APTT PTT Ratio Sodium Pending Potassium Chloride Carbon Dioxide Anion Gap BUN Creatinine Est Cr Clr Drug Dosing Est GFR ( Amer) Est GFR (Non-Af Amer) BUN/Creatinine Ratio Glucose POC Glucose Osmolality Calcium Magnesium Total Bilirubin AST ALT Alkaline Phosphatase Troponin I High Sens Total Protein Albumin Globulin Albumin/Globulin Ratio Lipase TSH Urine Color Urine Appearance Urine pH Ur Specific [place] Urine Protein Urine Glucose (UA) Urine Ketones Urine Blood Urine Nitrite Urine Bilirubin Urine Urobilinogen Ur Leukocyte Esterase Urine WBC (Auto) Urine RBC (Auto) U Hyaline Cast (Auto) U Epithel Cells (Auto) Urine Bacteria (Auto) Urine Osmolality Ur Random Sodium SARS-CoV-2, RNA, NAAT Blood Type Antibody Screen Medications Administered Current Inpatient Medications Acetaminophen (Acetaminophen 325 Mg Tab) 650 mg PO Q4H PRN PRN Reason: Pain or Fever Stop: 09/29/21 20:44 Last Admin: 08/31/21 04:07 Dose: 650 mg Documented by: Amlodipine Besylate (Amlodipine Besylate 5 Mg Tab) 2.5 mg PO HS [facility] Stop: 09/29/21 22:54 Last Admin: 08/31/21 00:14 Dose: 2.5 mg Documented by: Lipase/Protease/Amylase (Pancreaze (Lipase 10,500u) Cap) 2 cap PO TIDM LIBBY Stop: 09/30/21 07:59 Last Admin: 08/31/21 08:15 Dose: 2 cap Documented by: Lipase/Protease/Amylase (Pancreaze (Lipase 10,500u) Cap) 2 cap PO .WITH SNACKS PRN PRN Reason: with each snack Stop: 09/29/21 23:19 Atorvastatin Calcium (Atorvastatin 40 Mg Tab) 40 mg PO QAM LIBBY Stop: 09/30/21 08:59 Last Admin: 08/31/21 08:15 Dose: 40 mg Documented by: Bacitracin/Polymyxin B Sulfate (Bacitracin/Polymyx B Oph Oint 3.5 Gm Tube) 1 appln OPR TID LIBBY Stop: 09/06/21 22:21 Last Admin: 08/31/21 08:17 Dose: 1 appln Documented by: Betaxolol HCl (Betaxolol Hcl 0.5% Op 5 Ml Btl) 1 drops OPL BID LIBBY Stop: 09/29/21 22:21 Last Admin: 08/31/21 00:01 Dose: Not Given Documented by: Brimonidine Tartrate (Brimonidine Tartrate 0.2% 5ml) 1 drops OPL BID LIBBY Stop: 09/29/21 22:21 Last Admin: 08/31/21 08:16 Dose: 1 drops Documented by: Cyanocobalamin (Cyanocobalamin (B-12) 500 Mcg Tablet) 1,500 mcg PO QPM LIBBY Stop: 09/29/21 22:21 Last Admin: 08/31/21 00:01 Dose: 1,500 mcg Documented by: Dextrose (Dextrose 50% 50 Ml Syringe) 25 - 50 ml IV UD PRN; Protocol PRN Reason: Hypoglycemia Protocol Stop: 09/29/21 22:21 Erythromycin (Erythromycin Op Oint 5 Mg/Gm 3.5 Gm Tube) 1 appln OPL QID [facility] Stop: 09/07/21 22:21 Last Admin: 08/31/21 08:16 Dose: 1 appln Documented by: Fluticasone Propionate (Fluticasone Propionate Na Spr 16 Gm Btl) 2 sprays NA QAM [facility] Stop: 09/30/21 08:59 Last Admin: 08/31/21 08:16 Dose: 2 sprays Documented by: Folic Acid (Folic Acid 1 Mg Tab) 1 mg PO QAM [facility] Stop: 09/30/21 08:59 Last Admin: 08/31/21 08:15 Dose: 1 mg Documented by: Gabapentin (Gabapentin 100 Mg Cap) 200 mg PO TID [facility] Stop: 09/29/21 22:21 Last Admin: 08/31/21 08:15 Dose: 200 mg Documented by: Glucagon (Glucagon For Inj 1 Mg Vial) 1 mg SQ UD PRN; Protocol PRN Reason: Hypoglycemia Protocol Stop: 09/29/21 22:21 Glucose (Glucose 10 Tabs/Tube) 4 - 8 tabs PO UD PRN; Protocol PRN Reason: Hypoglycemia Protocol Stop: 09/29/21 22:21 Glucose (Glucose 40% Gel 15 Gm Tube) 15 - 30 gm PO UD PRN; Protocol PRN Reason: Hypoglycemia Protocol Stop: 09/29/21 22:21 Hydromorphone HCl (Hydromorphone Inj 0.5 Mg/0.5 Ml Syr) 0.5 mg IV Q3H PRN PRN Reason: Pain Stop: 09/13/21 20:44 Hydroxychloroquine Sulfate (Hydroxychloroquine Sulfate 200 Mg Tab) 400 mg PO HS [facility] Stop: 09/29/21 22:21 Last Admin: 08/31/21 00:03 Dose: 400 mg Documented by: Promethazine HCl 12.5 mg/ (Sodium Chloride) 50.5 mls @ 202 mls/hr IV Q6H PRN PRN Reason: Nausea And Vomiting Stop: 09/29/21 22:21 Piperacillin Sod/Tazobactam (Sod 4.5 gm/ Dextrose) 120 mls @ 30 mls/hr IV Q8H LIBBY; Protocol Stop: 09/02/21 00:00 Last Admin: 08/31/21 08:17 Dose: 30 mls/hr Documented by: Sodium Chloride (Nss 1000ml) 1,000 mls @ 40 mls/hr IV .Q24H [facility] Stop: 09/30/21 05:14 Last Admin: 08/31/21 05:21 Dose: 40 mls/hr Documented by: Insulin Aspart (Insulin Aspart Per Unit) 0 units SC ACHS LIBBY Stop: 09/29/21 22:21 Last Admin: 08/31/21 07:38 Dose: Not Given Documented by: Lactobacillus Acidophilus (Advanced Probiotic 1250 Mg Capsule) 2 cap PO DAILY [facility] Stop: 09/30/21 08:59 Last Admin: 08/31/21 08:15 Dose: 2 cap Documented by: Latanoprost (Latanoprost 0.005% Op Soln 2.5 Ml Btl) 1 drops OP [facility] Stop: 09/30/21 00:44 Last Admin: 08/31/21 01:00 Dose: 1 drops Documented by: Levothyroxine Sodium (Levothyroxine Sodium 125 Mcg Tablet) 125 mcg PO DAILYBB [facility] Stop: 09/30/21 06:29 Last Admin: 08/31/21 05:35 Dose: 125 mcg Documented by: Lorazepam (Lorazepam 0.5 Mg Tab) 0.5 mg PO TID PRN PRN Reason: Anxiety Stop: 09/29/21 22:21 Last Admin: 08/31/21 01:01 Dose: 0.5 mg Documented by: Lorazepam (Lorazepam 2 Mg/1 Ml Vial) 0.5 mg IV Q4H PRN PRN Reason: Anxiety Stop: 09/29/21 22:21 Melatonin (Melatonin 3 Mg Tab) 4.5 mg PO HS [facility] Stop: 09/29/21 22:21 Last Admin: 08/31/21 00:03 Dose: 4.5 mg Documented by: Miscellaneous (Order Awaiting Action: Netarsudil [Rhopressa] 0.02 % Drops) 1 ea N/A QS [facility] Stop: 09/30/21 00:00 Last Admin: 08/31/21 00:43 Dose: Not Given Documented by: Miscellaneous (Carbohydrates For Hypoglycemia ) 15 - 30 gm PO UD PRN PRN Reason: Hypoglycemia Protocol Stop: 09/29/21 22:21 Miscellaneous Information (Piperacill/Tazobac Consult Active) 1 ea N/A UD PRN PRN Reason: Consult Stop: 09/29/21 16:36 Oxycodone HCl (Oxycodone Hcl Ir 5 Mg Tab (Immediate Release)) 5 - 10 mg PO QID PRN PRN Reason: Pain Stop: 09/13/21 20:44 Pantoprazole Sodium (Pantoprazole 40 Mg Tab) 40 mg PO [facility] Stop: 09/30/21 08:59 Last Admin: 08/31/21 08:15 Dose: 40 mg Documented by: Prednisone (Prednisone 5 Mg Tab) 5 mg PO [facility] Stop: 09/30/21 08:59 Last Admin: 08/31/21 08:15 Dose: 5 mg Documented by: Tizanidine HCl (Tizanidine Hcl 4 Mg Tablet) 2 mg PO Q6 PRN PRN Reason: Muscle Spasm Stop: 09/29/21 22:21 Last Admin: 08/31/21 04:14 Dose: 2 mg Documented by:
[2021-08-31] MEDS ORDERED: ATROPINE SULFATE 0.1 MG/ML 10ML SYR IV PRN (11:18)
[2021-08-31] MEDS ORDERED: fentaNYL citrate 100 MCG/2 ML VIAL IV PRN (11:18)
[2021-08-31] MEDS ORDERED: ePHEDrine sulfate 50 MG/ML AMP IV PRN (11:18)
[2021-08-31] MEDS ORDERED: ONDANSETRON INJ 2 MG/ML 2 ML VIAL IV PRN (11:18)
[2021-08-31] MEDS ORDERED: GLYCOPYRROLATE 0.2 MG/ML VIAL ONE (11:19)
[2021-08-31] MEDS ORDERED: ONDANSETRON INJ 2 MG/ML 2 ML VIAL ONE (11:19)
[2021-08-31] MEDS ORDERED: MIDAZOLAM HCL 1 MG/ML 2ML VIAL ONE ×2 (11:19→13:10)
[2021-08-31] MEDS ORDERED: PROPOFOL IV EMULSION 10 MG/ML 20 ML VIAL IV ONE ×3 (11:19→13:12)
[2021-08-31] MEDS ORDERED: KETAMINE 50 MG/5 ML SYRINGE ONE (11:19)
[2021-08-31] MEDS ORDERED: DIATRIZOATE MEGLUMINE 30% 100ML VIAL INSTIL ONE (13:28)
--- NOTE | 2021-08-31 13:33 | Operative Report ---
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 Specimens Urine Right Renal Pelvis Drains 4.8 Fr x 25 on right x 2 Anesthesia Type General Complications none Disposition Disposition: Recovery Room Indications Patient with sepsis and bradycardia. Known partial duplicated system. Risks and benefits discussed at length. Description of Procedure Patient was consented and brought back to the operating room. Patient was placed under anesthesia in the supine position and moved to the dorsal lithotomy position. Patient was prepped and draped in the regular sterile fashion. A time out was completed. A 30degree Cystoscope was placed into the bladder and the entire bladder was examined. The UO's were identified. The right UO was cannulized with a catheter and a retrograde pyelogram was completed. Contrast did not appear to fill the renal pelvis well. A wire was placed. Followed by second wire. Both appeared to go into the lower pole segment. With manipulation, neither wire would enter the renal pelvis. The retrograde pyelogram could not confirm placement in either segment. The flexible scope was then taken over the second wire and advanced to the proximal ureter and renal pelvis. The upper pole segment was able to be entered and a wire was confirmed in this position. The lower pole segment was able to be accessed with manipulation and dilation of the narrowed area just distal to the split of the ureter. Urine was aspirated and sent for culture. A wire was placed in the lower pole segment. The scope was slowly removed with the wires left in place. Contrast was placed through the scope for a pyelogram to assist in stent placement. The entire ureter was examined as the scope was slowly removed. No obstructions or other areas of concern were noted. With the wires in place, a 4.8 Fr Double J stent was placed in the upper and lower pole segments. It was confirmed with fluoroscopy. With the stents in place, the bladder was emptied. The scope was removed. A 20 Fr matute was placed. The patient was cleaned, aroused from anesthesia, and transferred to the pacu in stable condition having tolerated the procedure well with no complications. I was present and participated in all aspects of the procedure. The patient will be monitored in the PACU until transferred. Plan to repeat imaging with likely CT in approx 2-3 weeks to reassess and decide on intervention. Will plan to discuss with patient and reassess and order imaging at that time. Will continue to monitor and plan for supportive care while recovering from septic episode. I attest to the content of the Intraoperative Record and any orders documented therein. Any exceptions are noted below.
--- NOTE | 2021-08-31 13:37 | Fluoroscopy Report ---
FL retrograde includes kub CLINICAL HISTORY: Right ureteral stent placement. COMPARISON STUDY: None. FLUOROSCOPY TIME: 2 minutes and 20 seconds.. FINDINGS: 5 fluoroscopic spot images demonstrate retrograde opacification of the right renal collecti ng system followed by placement of a right ureteral stent. IMPRESSION: Fluoroscopic assistance provided for right ureteral stent placement which appears in good position. ACT 112: Negative or not required by law. Electronically signed by: Nathan Bonilla M.D. 08/31/2021 1:35 PM
--- NOTE | 2021-08-31 14:05 | Electrocardiogram Report ---
Test Reason : Blood Pressure : / mmHG Vent. Rate : 065 BPM Atrial Rate : 066 BPM P-R Int : 000 ms QRS Dur : 110 ms QT Int : 408 ms P-R-T Axes : 000 -40 083 degrees QTc Int : 424 ms Poor data quality, interpretation may be adversely affected Sinus rhythm with occasional Premature ventricular complexes Left axis deviation Low voltage QRS Cannot rule out Anterior infarct , age undetermined Abnormal ECG When compared with ECG of 22-NOV-2019 12:00, No significant change Confirmed by Srini Solorio ([id number]) on 08/31/2021 2:04:29 PM Referred By: REFERRED SELF Confirmed By:Srini Solorio
--- NOTE | 2021-08-31 14:14 | Anesthesiology Progress Note ---
Date of Service August 31, 2021 Anesthesia Post Procedure Vital Signs Vital Signs: Temp Pulse Pulse Pulse Resp BP BP 08/31/21 14:00 36.2 C L 99 H 21 120/84 08/31/21 13:50 96 H 23 107/60 08/31/21 13:40 83 23 120/59 L 08/31/21 13:31 36.2 C L 98 H 14 95/61 L 08/31/21 11:34 36.7 C 87 20 109/49 L 08/31/21 07:59 37.5 C 60 16 124/69 08/31/21 07:44 57 L 08/31/21 05:27 37.6 C H 08/31/21 04:07 38.3 C H 08/31/21 02:55 37.3 C 74 18 114/48 L 08/30/21 22:17 79 08/30/21 22:14 81 08/30/21 22:11 37.2 C 72 18 155/72 H 08/30/21 21:14 73 18 137/36 L 08/30/21 19:14 68 18 121/59 L 08/30/21 19:01 72 19 121/59 L 08/30/21 19:00 67 18 08/30/21 18:50 69 22 08/30/21 18:46 76 27 H 157/74 H 08/30/21 18:42 92 H 45 H 08/30/21 18:30 74 19 08/30/21 18:20 65 22 08/30/21 18:10 64 20 08/30/21 18:00 66 20 145/68 H 08/30/21 17:50 67 23 08/30/21 17:40 66 22 08/30/21 17:31 67 23 131/52 L 08/30/21 17:30 63 26 H 08/30/21 17:20 71 22 08/30/21 17:17 78 32 H 162/104 H 08/30/21 17:15 88 32 H 08/30/21 17:00 64 23 127/69 08/30/21 16:50 66 24 117/56 L 08/30/21 16:44 65 18 08/30/21 16:00 61 20 109/73 08/30/21 15:58 60 19 08/30/21 15:39 72 20 08/30/21 15:09 36.6 C 64 18 130/58 L Pulse Ox 08/31/21 14:00 94 08/31/21 13:50 99 08/31/21 13:40 99 08/31/21 13:31 99 08/31/21 11:34 97 08/31/21 07:59 96 08/31/21 07:44 08/31/21 05:27 08/31/21 04:07 08/31/21 02:55 94 08/30/21 22:17 08/30/21 22:14 08/30/21 22:11 96 08/30/21 21:14 96 08/30/21 19:14 98 08/30/21 19:01 74 L 08/30/21 19:00 65 L 08/30/21 18:50 61 L 08/30/21 18:46 89 L 08/30/21 18:42 08/30/21 18:30 99 08/30/21 18:20 98 08/30/21 18:10 87 L 08/30/21 18:00 96 08/30/21 17:50 97 08/30/21 17:40 93 08/30/21 17:31 98 08/30/21 17:30 99 08/30/21 17:20 08/30/21 17:17 08/30/21 17:15 08/30/21 17:00 96 08/30/21 16:50 100 08/30/21 16:44 08/30/21 16:00 98 08/30/21 15:58 99 08/30/21 15:39 97 08/30/21 15:09 96 Pain Intensity Right Upper Abdomen: Pain Intensity: 2 Right Flank: Pain Intensity: 5 Transfer of Care Handoff Completed per policy Notes Mental Status: alert / awake / arousable and participated in evaluation Patient Amnestic to Procedure: Yes Nausea / Vomiting: adequately controlled Pain: adequately controlled Airway Patency, RR, SpO2: stable & adequate BP & HR: stable & adequate Hydration State: stable & adequate Anesthetic Complications: no major complications apparent and Pt Satisfied with anesthetic care
--- NOTE | 2021-08-31 18:25 | Hospitalist Progress Note ---
Date of Service August 31, 2021 Assessment & Plan (1) Sepsis secondary to UTI: (2) Staghorn calculus: (3) ALONA (acute kidney injury): (4) Hyponatremia: Plan: Sepsis with complicated UTI in setting of staghorn calculi- Met sepsis criteria with fever, leucocytosis and tachycardia. Improving. Continue empiric zosyn pending urine clx results. Blood and stone clx pending. Right staghorn calculi, right duplicated ureter - s/p Cystoscopy with Right Retrograde Pyelogram, ureteroscopy, dilation, and Right Ureteral Stent Placement x [address] Johansen 08/31- further management per uro ALONA- baseline of 1, improving with IVF, from 1.9->1.7. Recheck in am. Avoid nephrotoxics Hyponatremia- currently 129 from 122 on admission, prior was normal. Correcting as expected, at goal correction. Recheck in am. Avoid overcorrection. Sinus pause- 4.2 s pause on tele this morning. Asymptomatic, Not on AV sam blockers. Seen by cardio- no intervention currently, underwent urological procedure without issues. Monitor on tele. HTN- continue norvasc, hold lisinopril and home diuretic with ALONA DM2- well-controlled, a1c 6.2 June 02 Elevated trop- mild, flat trend. No chest pain, no EKG changes of ischemia. Demand ischemia and in setting of ALONA. Hypothyroid- on synthroid H/o RA on plaquenil, prednisone, folic acid H/o PAF- currently NSR. Not on anticoagulation per records Legal blindness Moderate (TTE 2020) Hepatocellular carcinoma status post embolization, shrinking tumor as of last outpatient report May 2021 DVT ppx- sc heparin Dispo- Pending culture results, improvement in ALONA and hyponatremia Admission and Anticipated Discharge Date Admission Date: August 30, 2021 Subjective Seen this morning. She had some right flank pain. Had fever this morning. [place] fine during my encounter and was waiting for uro procedure. Denies any nausea, vomiting, chest pain, palpitations. Physical Exam Physical Exam: General: Sitting comfortably in chair, not in distress, on room air HEENT: Legally blind. MMM Chest: Clear breath sounds bilaterally, no wheezes or crackles CVS: Regular, normal heart sounds, no murmur Abdomen: Soft, non tender, not distended, normal bowel sounds Mild right flank tenderness Neuro: Awake, alert, oriented, conversing well, non focal Extremities: No cyanosis, clubbing or edema Results & Data Results & Data ([facility]) Vital Signs (Past 12 Hours) Vital Signs Temp Pulse Pulse Pulse Resp BP Pulse Ox 08/31/21 16:00 68 08/31/21 15:53 36.7 C 70 20 155/60 H 99 08/31/21 14:59 64 16 100/60 98 08/31/21 14:48 62 18 120/68 99 08/31/21 14:32 80 20 147/72 H 96 08/31/21 14:22 36.7 C 71 22 113/60 94 08/31/21 14:00 36.2 C L 99 H 21 120/84 94 08/31/21 13:50 96 H 23 107/60 99 08/31/21 13:40 83 23 120/59 L 99 08/31/21 13:31 36.2 C L 98 H 14 95/61 L 99 08/31/21 11:34 36.7 C 87 20 109/49 L 97 08/31/21 07:59 37.5 C 60 16 124/69 96 08/31/21 07:44 57 L Laboratory Results Short CBC 08/30/21 08/31/21 Range/Units 22:40 04:05 WBC 15.80 H (4.8-10.8) K/uL Hgb 11.8 L 11.0 L (12.0-16.0) g/dL Hct 34.6 L 32.2 L (37-47) % Plt Count 178 (130-400) K/uL BMP 08/30/21 08/31/21 08/31/21 22:40 04:05 10:33 Sodium 128 L 128 L 127 L Potassium 3.9 3.7 Chloride 94 L 96 L Carbon Dioxide 23 22 BUN 46 H 45 H Creatinine 1.76 H 1.68 H Glucose 135 H 154 H Calcium 9.0 8.6 08/31/21 15:53 Sodium 129 L Potassium Chloride Carbon Dioxide BUN Creatinine Glucose Calcium Urine 08/30/21 Range/Units 18:43 Urine Color Yellow Urine Appearance Clear (Clear) Urine pH 5.5 (4.5-7.5) Ur Specific [place] 1.005 (1.000-1.030) Urine Protein Negative (Negative) Urine Glucose (UA) Negative (Negative) Diagnostic Findings Retrograde Pyelogram 08/31/21 00:00 FL retrograde includes kub CLINICAL HISTORY: Right ureteral stent placement. COMPARISON STUDY: None. FLUOROSCOPY TIME: 2 minutes and 20 seconds.. FINDINGS: 5 fluoroscopic spot images demonstrate retrograde opacification of the right renal collecting system followed by placement of a right ureteral stent. IMPRESSION: Fluoroscopic assistance provided for right ureteral stent placement which appears in good position. ACT 112: Negative or not required by law. Electronically signed by: Nathan Bonilla M.D. 08/31/2021 1:35 PM Medications Administered Current Inpatient Medications Acetaminophen (Acetaminophen 325 Mg Tab) 650 mg PO Q4H PRN PRN Reason: Pain or Fever Stop: 09/29/21 20:44 Last Admin: 08/31/21 04:07 Dose: 650 mg Documented by: Amlodipine Besylate (Amlodipine Besylate 5 Mg Tab) 2.5 mg PO HS [facility] Stop: 09/29/21 22:54 Last Admin: 08/31/21 00:14 Dose: 2.5 mg Documented by: Lipase/Protease/Amylase (Pancreaze (Lipase 10,500u) Cap) 2 cap PO TIDM [facility] Stop: 09/30/21 07:59 Last Admin: 08/31/21 17:09 Dose: 2 cap Documented by: Lipase/Protease/Amylase (Pancreaze (Lipase 10,500u) Cap) 2 cap PO .WITH SNACKS PRN PRN Reason: with each snack Stop: 09/29/21 23:19 Atorvastatin Calcium (Atorvastatin 40 Mg Tab) 40 mg PO QAM [facility] Stop: 09/30/21 08:59 Last Admin: 08/31/21 08:15 Dose: 40 mg Documented by: Bacitracin/Polymyxin B Sulfate (Bacitracin/Polymyx B Oph Oint 3.5 Gm Tube) 1 appln OPR TID [facility] Stop: 09/06/21 22:21 Last Admin: 08/31/21 14:47 Dose: 1 appln Documented by: Betaxolol HCl (Betaxolol Hcl 0.5% Op 5 Ml Btl) 1 drops OPL BID [facility] Stop: 09/29/21 22:21 Last Admin: 08/31/21 11:49 Dose: Not Given Documented by: Brimonidine Tartrate (Brimonidine Tartrate 0.2% 5ml) 1 drops OPL BID [facility] Stop: 09/29/21 22:21 Last Admin: 08/31/21 08:16 Dose: 1 drops Documented by: Cyanocobalamin (Cyanocobalamin (B-12) 500 Mcg Tablet) 1,500 mcg PO QPM [facility] Stop: 09/29/21 22:21 Last Admin: 08/31/21 00:01 Dose: 1,500 mcg Documented by: Dextrose (Dextrose 50% 50 Ml Syringe) 25 - 50 ml IV UD PRN; Protocol PRN Reason: Hypoglycemia Protocol Stop: 09/29/21 22:21 Erythromycin (Erythromycin Op Oint 5 Mg/Gm 3.5 Gm Tube) 1 appln OPL QID [facility] Stop: 09/07/21 22:21 Last Admin: 08/31/21 17:09 Dose: 1 appln Documented by: Fluticasone Propionate (Fluticasone Propionate Na Spr 16 Gm Btl) 2 sprays NA QAM [facility] Stop: 09/30/21 08:59 Last Admin: 08/31/21 08:16 Dose: 2 sprays Documented by: Folic Acid (Folic Acid 1 Mg Tab) 1 mg PO QAM [facility] Stop: 09/30/21 08:59 Last Admin: 08/31/21 08:15 Dose: 1 mg Documented by: Gabapentin (Gabapentin 100 Mg Cap) 200 mg PO TID [facility] Stop: 09/29/21 22:21 Last Admin: 08/31/21 17:08 Dose: 200 mg Documented by: Glucagon (Glucagon For Inj 1 Mg Vial) 1 mg SQ UD PRN; Protocol PRN Reason: Hypoglycemia Protocol Stop: 09/29/21 22:21 Glucose (Glucose 10 Tabs/Tube) 4 - 8 tabs PO UD PRN; Protocol PRN Reason: Hypoglycemia Protocol Stop: 09/29/21 22:21 Glucose (Glucose 40% Gel 15 Gm Tube) 15 - 30 gm PO UD PRN; Protocol PRN Reason: Hypoglycemia Protocol Stop: 09/29/21 22:21 Hydromorphone HCl (Hydromorphone Inj 0.5 Mg/0.5 Ml Syr) 0.5 mg IV Q3H PRN PRN Reason: Pain Stop: 09/13/21 20:44 Hydroxychloroquine Sulfate (Hydroxychloroquine Sulfate 200 Mg Tab) 400 mg PO HS [facility] Stop: 09/29/21 22:21 Last Admin: 08/31/21 00:03 Dose: 400 mg Documented by: Promethazine HCl 12.5 mg/ (Sodium Chloride) 50.5 mls @ 202 mls/hr IV Q6H PRN PRN Reason: Nausea And Vomiting Stop: 09/29/21 22:21 Last Infusion: 08/31/21 15:12 Dose: Infused Documented by: Piperacillin Sod/Tazobactam (Sod 4.5 gm/ Dextrose) 120 mls @ 30 mls/hr IV Q8H [facility]; Protocol Stop: 09/02/21 00:00 Last Admin: 08/31/21 17:08 Dose: 30 mls/hr Documented by: Sodium Chloride (Nss 1000ml) 1,000 mls @ 40 mls/hr IV .Q24H [facility] Stop: 09/30/21 05:14 Last Admin: 08/31/21 05:21 Dose: 40 mls/hr Documented by: Insulin Aspart (Insulin Aspart Per Unit) 0 units SC ACHS [facility] Stop: 09/29/21 22:21 Last Admin: 08/31/21 17:17 Dose: 7 units Documented by: Lactobacillus Acidophilus (Advanced Probiotic 1250 Mg Capsule) 2 cap PO DAILY [facility] Stop: 09/30/21 08:59 Last Admin: 08/31/21 08:15 Dose: 2 cap Documented by: Latanoprost (Latanoprost 0.005% Op Soln 2.5 Ml Btl) 1 drops OP [facility] Stop: 09/30/21 00:44 Last Admin: 08/31/21 01:00 Dose: 1 drops Documented by: Levothyroxine Sodium (Levothyroxine Sodium 125 Mcg Tablet) 125 mcg PO DAILYBB [facility] Stop: 09/30/21 06:29 Last Admin: 08/31/21 05:35 Dose: 125 mcg Documented by: Lorazepam (Lorazepam 0.5 Mg Tab) 0.5 mg PO TID PRN PRN Reason: Anxiety Stop: 09/29/21 22:21 Last Admin: 08/31/21 01:01 Dose: 0.5 mg Documented by: Lorazepam (Lorazepam 2 Mg/1 Ml Vial) 0.5 mg IV Q4H PRN PRN Reason: Anxiety Stop: 09/29/21 22:21 Melatonin (Melatonin 3 Mg Tab) 4.5 mg PO [facility] Stop: 09/29/21 22:21 Last Admin: 08/31/21 00:03 Dose: 4.5 mg Documented by: Miscellaneous (Carbohydrates For Hypoglycemia ) 15 - 30 gm PO UD PRN PRN Reason: Hypoglycemia Protocol Stop: 09/29/21 22:21 Miscellaneous Information (Piperacill/Tazobac Consult Active) 1 ea N/A UD PRN PRN Reason: Consult Stop: 09/29/21 16:36 Rhopressa-Non- Formulary Patient's Own Med 1 ea OPL Q24H [facility] Stop: 09/30/21 20:59 Oxycodone HCl (Oxycodone Hcl Ir 5 Mg Tab (Immediate Release)) 5 - 10 mg PO QID PRN PRN Reason: Pain Stop: 09/13/21 20:44 Pantoprazole Sodium (Pantoprazole 40 Mg Tab) 40 mg PO QAM [facility] Stop: 09/30/21 08:59 Last Admin: 08/31/21 08:15 Dose: 40 mg Documented by: Prednisone (Prednisone 5 Mg Tab) 5 mg PO QAM [facility] Stop: 09/30/21 08:59 Last Admin: 08/31/21 08:15 Dose: 5 mg Documented by: Tizanidine HCl (Tizanidine Hcl 4 Mg Tablet) 2 mg PO Q6 PRN PRN Reason: Muscle Spasm Stop: 09/29/21 22:21 Last Admin: 08/31/21 04:14 Dose: 2 mg Documented by:
[2021-08-31] MEDS: MELATONIN 3 MG TAB PO SCH (20:39)
[2021-08-31] MEDS: RHOPRESSA OPL SCH (20:43)
[2021-08-31] MEDS: amLODIPine BESYLATE 5 MG TAB PO SCH (20:47)
[2021-08-31] MEDS ORDERED: INSULIN GLARGINE SOLOSTAR 100 UNITS/ML 3 ML PEN SC SCH (21:00)
[2021-08-31] MEDS: HEPARIN SOD 5,000 UNIT/0.5 ML VIAL SQ SCH (22:27)
[2021-08-31] MEDS ORDERED: COUGH DROP (SUGAR FREE) LOZ 24 LOZ/1 BOX BUCCAL ONE (22:29)
[2021-09-01] MEDS: SODIUM CHLORIDE 0.9% 1000ML 1,000 ML IV SCH ×2 (00:44→11:13)
[2021-09-01] MEDS: LEVOTHYROXINE SODIUM 125 MCG TABLET PO SCH (05:03)
[2021-09-01] MEDS: ACETAMINOPHEN 325 MG TAB PO PRN (05:03)
[2021-09-01 06:07] LABS: Basophils # (auto) 0.02 K/uL (0-0.2); Basophils % (auto) 0.1 %; Eosinophils # (auto) 0.06 K/uL (0-0.5); Eosinophils % (auto) 0.3 %; Hemoglobin 11.2 g/dL (12.0-16.0); Immature Granulocytes # (auto) 0.09 K/uL (0.00-0.02); Immature Granulocytes % (auto) 0.5 %; Lymphocytes # (auto) 0.75 K/uL (1.2-3.4); Mean Corpuscular Hemoglobin 30.4 pg (25-34); Mean Corpuscular Hgb Conc 32.9 g/dL (32-36); Mean Corpuscular Volume 92.4 fL (80-100); Mean Platelet Volume 10.2 fL (7.4-10.4); Monocytes # (auto) 1.64 K/uL (0.11-0.59); Monocytes % (auto) 8.6 %; Neutrophils % (auto) 86.5 %; Platelet Count 217 K/uL (130-400); RDW Standard Deviation 50.4 fL (36.4-46.3); Red Blood Count 3.68 M/uL (4.2-5.4); White Blood Count 18.96 K/uL (4.8-10.8)
[2021-09-01 06:38] LABS: Calcium 8.5 mg/dl (8.5-10.1); Creatinine Clr Calc Pharmacy 37.1 ml/min; Est GFR (African American) 31.8 ml/min; Est GFR (Non-African American) 27.5 ml/min; Potassium 3.6 mmol/L (3.5-5.1)
[2021-09-01] MEDS: PANTOprazole 40 MG TAB PO SCH (07:53)
[2021-09-01] MEDS: ATORVASTATIN 40 MG TAB PO SCH (07:53)
[2021-09-01] MEDS: PANCREAZE (LIPASE 10,500U) CAP PO SCH ×3 (07:54→17:17)
[2021-09-01] MEDS: FOLIC ACID 1 MG TAB PO SCH (07:54)
[2021-09-01] MEDS: predniSONE 5 MG TAB PO SCH (07:54)
[2021-09-01] MEDS: ADVANCED PROBIOTIC 1250 MG CAPSULE PO SCH (07:54)
[2021-09-01] MEDS: GABAPENTIN 100 MG CAP PO SCH ×3 (07:54→20:55)
[2021-09-01] MEDS: FLUTICASONE PROPIONATE NA SPR 16 GM BTL SCH (07:55)
[2021-09-01] MEDS: PIPERACILLIN/TAZOBACTAM 4.5 GM in DEXTROSE 5% 100 ML IV SCH ×3 (07:56→23:31)
[2021-09-01] MEDS: BACITRACIN/POLYMYX B OPH OINT 3.5 GM TUBE OPR SCH ×3 (07:57→20:43)
[2021-09-01] MEDS: BRIMONIDINE TARTRATE 0.2% 5ML OPL SCH ×2 (07:57→20:45)
[2021-09-01] MEDS: ERYTHROMYCIN OP OINT 5 MG/GM 3.5 GM TUBE OPL SCH ×4 (07:57→20:43)
[2021-09-01] MEDS: HEPARIN SOD 5,000 UNIT/0.5 ML VIAL SQ SCH ×2 (09:00→20:52)
[2021-09-01] MEDS: INSULIN ASPART PER UNIT SC SCH ×4 (09:00→20:37)
[2021-09-01] MEDS: tiZANidine HCL 4 MG TABLET PO PRN ×2 (09:00→21:09)
--- NOTE | 2021-09-01 11:15 | Urology Progress Note ---
Date of Service September 01, 2021 Assessment & Plan (1) Staghorn calculus: (2) ALONA (acute kidney injury): (3) Urinary tract infection: Plan: 71yo F with admitted with hyponatremia, ARF, suspected UTI in the setting of a large staghorn calculus in the mid to upper pole of the right kidney. - POD #1 s/p Cystoscopy with Right Retrograde Pyelogram, ureteroscopy, dilation, and Right Ureteral Stent Placement x 2. - Tolerating the ureteral stents with minimal bother. - Afebrile this morning - TMAX 39.4 yesterday evening - Labs reviewed - Wbc 18.96, Creatinine 1.82 - Continue to trend. - Urine culture final with low counts probable skin stacy; Intraop urine culture from right renal pelvis pending. - Blood cultures pending. - Continues on IV Zosyn, follow cultures. - Red catheter intact, draining clear yellow urine with sediment in tubing. - Maintain Red catheter for now, can offer voiding trial prior to discharge. - Continue supportive care and antibiotic therapy. - Will arrange outpatient follow-up with our service for stone and stent management. - Thank you for allowing us to participate in the acute care of Mrs. Valencia. Please reconsult us with additional questions, concerns or changes in patient status. Admission and Anticipated Discharge Date Admission Date: August 30, 2021 Subjective Pt examined at bedside this AM. Awake, sitting in bedside chair on arrival. No acute distress. Febrile yesterday evening, no fever this morning. Reports an improvement in her right back/flank pain. Red catheter intact, draining clear yellow urine with sediment in tubing. Denies nausea or vomiting. Tolerating the ureteral stents with minimal bother. Review of Systems Constitutional: as per Subjective / HPI Gastrointestinal: as per Subjective / HPI Genitourinary: as per Subjective / HPI Physical Exam Constitutional: + obese; no acute distress Eyes: Legally blind. Respiratory: normal respiratory effort; no respiratory distress and no labored breathing Gastrointestinal (Abdomen): Inspection/Auscultation: abdomen normal to inspection Musculoskeletal: Head/Neck/Chest: normocephalic Skin: Warm and dry Neurologic: awake Psychiatric: Orientation: alert, oriented x 3 and cooperative Genitourinary: Red catheter intact Results & Data ([facility]) Vital Signs (Past 12 Hours) Vital Signs Temp Pulse Pulse Resp BP Pulse Ox 09/01/21 08:09 36.5 C 95 H 20 111/56 L 97 09/01/21 07:21 57 L 09/01/21 03:30 37.1 C 60 18 115/60 98 09/01/21 00:13 71 08/31/21 23:57 37.7 C H 63 18 97/44 L 94 PG Care Time/CCT Total # of Minutes Spent Total Time Spent with Patient: Total time spent is greater than 50% in coordination of care (as documented) at patient's floor/unit and/or counseling patient: Coding Level of Care Code 47001 Subseq Hosp Care Lvl 2 Diagnoses Staghorn calculus N20.0 ALONA (acute kidney injury) N17.9 Urinary tract infection N39.0 Hematuria presence: without hematuria Urinary tract infection type: site unspecified (1) Urinary tract infection Hematuria presence: without hematuria Urinary tract infection type: site unspecified Qualified Code(s): N39.0 - Urinary tract infection, site not specified
[2021-09-01] MEDS: BETAXOLOL HCL 0.5% OPL SCH ×2 (11:50→20:45)
--- NOTE | 2021-09-01 11:51 | Cardiology Progress Note ---
Date of Service September 01, 2021 Assessment & Plan (1) Kidney stone on right side: (2) Acute pyelonephritis: (3) Diabetes: (4) Aortic stenosis: Plan: The patient remains bradycardic on telemetry but is clinically stable. Fluid balance is getting positive and with all the antibiotics along with her maintenance IV she is probably getting a little bit too much fluids. Would recommend cutting back on the maintenance IV. Continue the patient on telemetry. Admission and Anticipated Discharge Date Admission Date: August 30, 2021 Subjective The patient received 2 ureteral stents yesterday without sequela. She is sitting in a chair without complaints. Review of Systems Review of Systems: Review of Systems: See HPI for pertinent positives. All other 10 point review of systems are negative. Physical Exam Physical Exam: General: no acute distress and stated age Head: normocephalic, no masses, lesions, tenderness or abnormalities Eyes: conjunctiva are pink and non-injected, sclera clear Neck: supple, no adenopathy, no bruits, normal jugular venous pulse, no hepatojugular reflux Chest: normal shape and normal respiratory effort Lungs: clear to auscultation and percussion Cardiac Exam: - regular rate & rhythm, systolic murmur- normal S1, normal S2 Pulses: 2(+) throughout Abdomen: abdomen soft, non-tender, no abnormal masses and no hepatosplenomegaly Musculoskeletal: no gait disturbance, no joint inflammation, no deforming arthritis Extremities: no edema and no cyanosis Neuro: grossly normal exam Results & Data ([facility]) Vital Signs (Past 12 Hours) Vital Signs Temp Pulse Pulse Resp BP Pulse Ox 09/01/21 08:09 36.5 C 95 H 20 111/56 L 97 09/01/21 07:21 57 L 09/01/21 03:30 37.1 C 60 18 115/60 98 09/01/21 00:13 71 08/31/21 23:57 37.7 C H 63 18 97/44 L 94 Laboratory Results Laboratory Results - last 24 hr 08/31/21 08/31/21 08/31/21 15:53 16:38 20:35 WBC RBC Hgb Hct MCV MCH MCHC RDW Std Deviation RDW Coeff of Juani Plt Count MPV Immature Gran % (Auto) Neut % (Auto) Lymph % (Auto) [place] % (Auto) Eos % (Auto) Baso % (Auto) Neut # (Auto) Lymph # (Auto) [place] # (Auto) Eos # (Auto) Baso # (Auto) Immature Gran # (Auto) Sodium 129 L Potassium Chloride Carbon Dioxide Anion Gap BUN Creatinine Est Cr Clr Drug Dosing Est GFR ( Amer) Est GFR (Non-Af Amer) BUN/Creatinine Ratio Glucose POC Glucose 254 H 252 H Calcium Magnesium 09/01/21 09/01/21 09/01/21 05:32 05:32 07:34 WBC 18.96 H RBC 3.68 L Hgb 11.2 L Hct 34.0 L MCV 92.4 MCH 30.4 MCHC 32.9 RDW Std Deviation 50.4 H RDW Coeff of Juani 15.0 H Plt Count 217 MPV 10.2 Immature Gran % (Auto) 0.5 Neut % (Auto) 86.5 Lymph % (Auto) 4.0 [place] % (Auto) 8.6 Eos % (Auto) 0.3 Baso % (Auto) 0.1 Neut # (Auto) 16.40 H Lymph # (Auto) 0.75 L [place] # (Auto) 1.64 H Eos # (Auto) 0.06 Baso # (Auto) 0.02 Immature Gran # (Auto) 0.09 H Sodium 130 L Potassium 3.6 Chloride 97 L Carbon Dioxide 23 Anion Gap 10 BUN 40 H Creatinine 1.82 H Est Cr Clr Drug Dosing 37.1 Est GFR ( Amer) 31.8 Est GFR (Non-Af Amer) 27.5 BUN/Creatinine Ratio 22.0 H Glucose 204 H POC Glucose 223 H Calcium 8.5 Magnesium 2.0 Medications Administered Current Inpatient Medications Acetaminophen (Acetaminophen 325 Mg Tab) 650 mg PO Q4H PRN PRN Reason: Pain or Fever Stop: 09/29/21 20:44 Last Admin: 09/01/21 05:03 Dose: 650 mg Documented by: Amlodipine Besylate (Amlodipine Besylate 5 Mg Tab) 5 mg PO HS [facility] Stop: 09/30/21 20:59 Last Admin: 08/31/21 20:47 Dose: 5 mg Documented by: Lipase/Protease/Amylase (Pancreaze (Lipase 10,500u) Cap) 2 cap PO TIDM [facility] Stop: 09/30/21 07:59 Last Admin: 09/01/21 07:54 Dose: 2 cap Documented by: Lipase/Protease/Amylase (Pancreaze (Lipase 10,500u) Cap) 2 cap PO .WITH SNACKS PRN PRN Reason: with each snack Stop: 09/29/21 23:19 Atorvastatin Calcium (Atorvastatin 40 Mg Tab) 40 mg PO QAM [facility] Stop: 09/30/21 08:59 Last Admin: 09/01/21 07:53 Dose: 40 mg Documented by: Bacitracin/Polymyxin B Sulfate (Bacitracin/Polymyx B Oph Oint 3.5 Gm Tube) 1 appln OPR TID [facility] Stop: 09/06/21 22:21 Last Admin: 09/01/21 07:57 Dose: 1 appln Documented by: Betaxolol HCl (Betaxolol Hcl 0.5% Op 5 Ml Btl) 1 drops OPL BID [facility] Stop: 09/29/21 22:21 Last Admin: 08/31/21 23:29 Dose: Not Given Documented by: Brimonidine Tartrate (Brimonidine Tartrate 0.2% 5ml) 1 drops OPL BID [facility] Stop: 09/29/21 22:21 Last Admin: 09/01/21 07:57 Dose: 1 drops Documented by: Cyanocobalamin (Cyanocobalamin (B-12) 500 Mcg Tablet) 1,500 mcg PO QPM [facility] Stop: 09/29/21 22:21 Last Admin: 08/31/21 20:47 Dose: 1,500 mcg Documented by: Dextrose (Dextrose 50% 50 Ml Syringe) 25 - 50 ml IV UD PRN; Protocol PRN Reason: Hypoglycemia Protocol Stop: 09/29/21 22:21 Erythromycin (Erythromycin Op Oint 5 Mg/Gm 3.5 Gm Tube) 1 appln OPL QID [facility] Stop: 09/07/21 22:21 Last Admin: 09/01/21 07:57 Dose: 1 appln Documented by: Fluticasone Propionate (Fluticasone Propionate Na Spr 16 Gm Btl) 2 sprays NA QAM [facility] Stop: 09/30/21 08:59 Last Admin: 09/01/21 07:55 Dose: 2 sprays Documented by: Folic Acid (Folic Acid 1 Mg Tab) 1 mg PO QAM [facility] Stop: 09/30/21 08:59 Last Admin: 09/01/21 07:54 Dose: 1 mg Documented by: Gabapentin (Gabapentin 100 Mg Cap) 200 mg PO TID [facility] Stop: 09/29/21 22:21 Last Admin: 09/01/21 07:54 Dose: 200 mg Documented by: Glucagon (Glucagon For Inj 1 Mg Vial) 1 mg SQ UD PRN; Protocol PRN Reason: Hypoglycemia Protocol Stop: 09/29/21 22:21 Glucose (Glucose 10 Tabs/Tube) 4 - 8 tabs PO UD PRN; Protocol PRN Reason: Hypoglycemia Protocol Stop: 09/29/21 22:21 Glucose (Glucose 40% Gel 15 Gm Tube) 15 - 30 gm PO UD PRN; Protocol PRN Reason: Hypoglycemia Protocol Stop: 09/29/21 22:21 Heparin Sodium (Porcine) (Heparin Sod 5,000 Unit/0.5 Ml Vial) 5,000 units SQ Q12 [facility] Stop: 09/30/21 20:59 Last Admin: 09/01/21 09:00 Dose: 5,000 units Documented by: Hydromorphone HCl (Hydromorphone Inj 0.5 Mg/0.5 Ml Syr) 0.5 mg IV Q3H PRN PRN Reason: Pain Stop: 09/13/21 20:44 Hydroxychloroquine Sulfate (Hydroxychloroquine Sulfate 200 Mg Tab) 400 mg PO HS [facility] Stop: 09/29/21 22:21 Last Admin: 08/31/21 20:40 Dose: 400 mg Documented by: Promethazine HCl 12.5 mg/ (Sodium Chloride) 50.5 mls @ 202 mls/hr IV Q6H PRN PRN Reason: Nausea And Vomiting Stop: 09/29/21 22:21 Last Infusion: 08/31/21 15:12 Dose: Infused Documented by: Piperacillin Sod/Tazobactam (Sod 4.5 gm/ Dextrose) 120 mls @ 30 mls/hr IV Q8H [facility]; Protocol Stop: 09/02/21 00:00 Last Admin: 09/01/21 07:56 Dose: 30 mls/hr Documented by: Sodium Chloride (Nss 1000ml) 1,000 mls @ 125 mls/hr IV .Q8H [facility] Stop: 09/30/21 05:14 Last Admin: 09/01/21 11:13 Dose: 125 mls/hr Documented by: Insulin Aspart (Insulin Aspart Per Unit) 0 units SC ACHS [facility] Stop: 09/29/21 22:21 Last Admin: 09/01/21 09:00 Dose: 8 units Documented by: Insulin Glargine (Insulin Glargine Solostar 100 Units/Ml 3 Ml Pen) 5 units [address] [facility] Stop: 09/30/21 20:59 Last Admin: 08/31/21 20:58 Dose: 5 units Documented by: Lactobacillus Acidophilus (Advanced Probiotic 1250 Mg Capsule) 2 cap PO DAILY [facility] Stop: 09/30/21 08:59 Last Admin: 09/01/21 07:54 Dose: 2 cap Documented by: Latanoprost (Latanoprost 0.005% Op Soln 2.5 Ml Btl) 1 drops OP [facility] Stop: 09/30/21 00:44 Last Admin: 08/31/21 20:43 Dose: 1 drops Documented by: Levothyroxine Sodium (Levothyroxine Sodium 125 Mcg Tablet) [facility] Stop: 09/30/21 06:29 Last Admin: 09/01/21 05:03 Dose: 125 mcg Documented by: Lorazepam (Lorazepam 0.5 Mg Tab) 0.5 mg PO TID PRN PRN Reason: Anxiety Stop: 09/29/21 22:21 Last Admin: 08/31/21 01:01 Dose: 0.5 mg Documented by: Lorazepam (Lorazepam 2 Mg/1 Ml Vial) 0.5 mg IV Q4H PRN PRN Reason: Anxiety Stop: 09/29/21 22:21 Melatonin (Melatonin 3 Mg Tab) 6 mg PO [facility] Stop: 09/29/21 20:59 Last Admin: 08/31/21 20:39 Dose: 6 mg Documented by: Miscellaneous (Carbohydrates For Hypoglycemia ) 15 - 30 gm PO UD PRN PRN Reason: Hypoglycemia Protocol Stop: 09/29/21 22:21 Miscellaneous Information (Piperacill/Tazobac Consult Active) 1 ea N/A UD PRN PRN Reason: Consult Stop: 09/29/21 16:36 Rhopressa-Non- Formulary Patient's Own Med 1 ea OPL Q24H [facility] Stop: 09/30/21 20:59 Last Admin: 08/31/21 20:43 Dose: 1 drops Documented by: Oxycodone HCl (Oxycodone Hcl Ir 5 Mg Tab (Immediate Release)) 5 - 10 mg PO QID PRN PRN Reason: Pain Stop: 09/13/21 20:44 Pantoprazole Sodium (Pantoprazole 40 Mg Tab) 40 mg PO [facility] Stop: 09/30/21 08:59 Last Admin: 09/01/21 07:53 Dose: 40 mg Documented by: Prednisone (Prednisone 5 Mg Tab) 5 mg PO [facility] Stop: 09/30/21 08:59 Last Admin: 09/01/21 07:54 Dose: 5 mg Documented by: Tizanidine HCl (Tizanidine Hcl 4 Mg Tablet) 2 mg PO Q6 PRN PRN Reason: Muscle Spasm Stop: 09/29/21 22:21 Last Admin: 09/01/21 09:00 Dose: 2 mg Documented by:
[2021-09-01] MEDS ORDERED: INSULIN GLARGINE SOLOSTAR 100 UNITS/ML 3 ML PEN SC SCH (12:00)
--- NOTE | 2021-09-01 13:05 | Hospitalist Progress Note ---
Date of Service September 01, 2021 Assessment & Plan (1) Sepsis secondary to UTI: (2) Staghorn calculus: (3) ALONA (acute kidney injury): (4) Hyponatremia: Plan: Sepsis with complicated UTI in setting of staghorn calculi- Met sepsis criteria with fever, leucocytosis and tachycardia. Improving. Continue empiric zosyn pending urine clx results. Blood and stone clx pending. Right staghorn calculi, right duplicated ureter - s/p Cystoscopy with Right Retrograde Pyelogram, ureteroscopy, dilation, and Right Ureteral Stent Placement x [address] Johansen 08/31- further management per uro ALONA- baseline of 1. On presentation 1.95->1.76->1.68->1.82. Not improving despite ivf. possibly from sepsis. Voiding. Will consult nephro. Hyponatremia- on admission 128->129->130. Correcting appropriately. Getting some ivf. Sinus bradycadia- asymptomatic, chronic issues, cardio following. Not on AV sam blockers. Had sinus pause- 4.2 s on 08/31- management per cardio. HTN- BP low. Will hold norvasc, hold lisinopril and home diuretic. Resume as indicated DM2- well-controlled, a1c 6.2 June 02. BG elevated- will uptitrate insulin Elevated trop- mild, flat trend. No chest pain, no EKG changes of ischemia. Demand ischemia and in setting of ALONA. Hypothyroid- on synthroid H/o RA on plaquenil, prednisone, folic acid H/o PAF- currently NSR. Not on anticoagulation per records Legal blindness Moderate (TTE 2020) Hepatocellular carcinoma status post embolization, shrinking tumor as of last outpatient report May 2021 DVT ppx- sc heparin Dispo- Pending culture results, improvement in ALONA and hyponatremia Admission and Anticipated Discharge Date Admission Date: August 30, 2021 Subjective She feels somewhat better. She still has some flank discomfort. No fever, nausea, vomiting. Tolerating po well. Had BM. States she did not get much sleep last night and hence dozing off. Physical Exam Physical Exam: General: Sitting comfortably in chair, not in distress, on room air HEENT: Legally blind. MMM Chest: Clear breath sounds bilaterally, no wheezes or crackles CVS: Regular, normal heart sounds, no murmur Abdomen: Soft, non tender, not distended, normal bowel sounds Mild right flank tenderness Neuro: Awake, alert, oriented, conversing well, non focal Extremities: No cyanosis, clubbing or edema Results & Data Results & Data ([facility]) Vital Signs (Past 12 Hours) Vital Signs Temp Pulse Pulse Resp BP Pulse Ox 09/01/21 12:29 36.4 C L 55 L 19 85/52 L 99 09/01/21 08:09 36.5 C 95 H 20 111/56 L 97 09/01/21 07:21 57 L 09/01/21 03:30 37.1 C 60 18 115/60 98 Laboratory Results Short CBC 09/01/21 Range/Units 05:32 WBC 18.96 H (4.8-10.8) K/uL Hgb 11.2 L (12.0-16.0) g/dL Hct 34.0 L (37-47) % Plt Count 217 (130-400) K/uL BMP 08/31/21 09/01/21 15:53 05:32 Sodium 129 L 130 L Potassium 3.6 Chloride 97 L Carbon Dioxide 23 BUN 40 H Creatinine 1.82 H Glucose 204 H Calcium 8.5 Medications Administered Current Inpatient Medications Acetaminophen (Acetaminophen 325 Mg Tab) 650 mg PO Q4H PRN PRN Reason: Pain or Fever Stop: 09/29/21 20:44 Last Admin: 09/01/21 05:03 Dose: 650 mg Documented by: Amlodipine Besylate (Amlodipine Besylate 5 Mg Tab) 5 mg PO HS [facility] Stop: 09/30/21 20:59 Last Admin: 08/31/21 20:47 Dose: 5 mg Documented by: Lipase/Protease/Amylase (Pancreaze (Lipase 10,500u) Cap) 2 cap PO TIDM [facility] Stop: 09/30/21 07:59 Last Admin: 09/01/21 07:54 Dose: 2 cap Documented by: Lipase/Protease/Amylase (Pancreaze (Lipase 10,500u) Cap) 2 cap PO .WITH SNACKS PRN PRN Reason: with each snack Stop: 09/29/21 23:19 Atorvastatin Calcium (Atorvastatin 40 Mg Tab) 40 mg PO QAM [facility] Stop: 09/30/21 08:59 Last Admin: 09/01/21 07:53 Dose: 40 mg Documented by: Bacitracin/Polymyxin B Sulfate (Bacitracin/Polymyx B Oph Oint 3.5 Gm Tube) 1 appln OPR TID [facility] Stop: 09/06/21 22:21 Last Admin: 09/01/21 07:57 Dose: 1 appln Documented by: Betaxolol HCl (Betaxolol Hcl 0.5% Op 5 Ml Btl) 1 drops OPL BID [facility] Stop: 09/29/21 22:21 Last Admin: 09/01/21 11:50 Dose: 1 drops Documented by: Brimonidine Tartrate (Brimonidine Tartrate 0.2% 5ml) 1 drops OPL BID [facility] Stop: 09/29/21 22:21 Last Admin: 09/01/21 07:57 Dose: 1 drops Documented by: Cyanocobalamin (Cyanocobalamin (B-12) 500 Mcg Tablet) 1,500 mcg PO QPM [facility] Stop: 09/29/21 22:21 Last Admin: 08/31/21 20:47 Dose: 1,500 mcg Documented by: Dextrose (Dextrose 50% 50 Ml Syringe) 25 - 50 ml IV UD PRN; Protocol PRN Reason: Hypoglycemia Protocol Stop: 09/29/21 22:21 Erythromycin (Erythromycin Op Oint 5 Mg/Gm 3.5 Gm Tube) 1 appln OPL QID [facility] Stop: 09/07/21 22:21 Last Admin: 09/01/21 07:57 Dose: 1 appln Documented by: Fluticasone Propionate (Fluticasone Propionate Na Spr 16 Gm Btl) 2 sprays NA QAM [facility] Stop: 09/30/21 08:59 Last Admin: 09/01/21 07:55 Dose: 2 sprays Documented by: Folic Acid (Folic Acid 1 Mg Tab) 1 mg PO QAM [facility] Stop: 09/30/21 08:59 Last Admin: 09/01/21 07:54 Dose: 1 mg Documented by: Gabapentin (Gabapentin 100 Mg Cap) 200 mg PO TID [facility] Stop: 09/29/21 22:21 Last Admin: 09/01/21 07:54 Dose: 200 mg Documented by: Glucagon (Glucagon For Inj 1 Mg Vial) 1 mg SQ UD PRN; Protocol PRN Reason: Hypoglycemia Protocol Stop: 09/29/21 22:21 Glucose (Glucose 10 Tabs/Tube) 4 - 8 tabs PO UD PRN; Protocol PRN Reason: Hypoglycemia Protocol Stop: 09/29/21 22:21 Glucose (Glucose 40% Gel 15 Gm Tube) 15 - 30 gm PO UD PRN; Protocol PRN Reason: Hypoglycemia Protocol Stop: 09/29/21 22:21 Heparin Sodium (Porcine) (Heparin Sod 5,000 Unit/0.5 Ml Vial) 5,000 units SQ Q12 [facility] Stop: 09/30/21 20:59 Last Admin: 09/01/21 09:00 Dose: 5,000 units Documented by: Hydromorphone HCl (Hydromorphone Inj 0.5 Mg/0.5 Ml Syr) 0.5 mg IV Q3H PRN PRN Reason: Pain Stop: 09/13/21 20:44 Hydroxychloroquine Sulfate (Hydroxychloroquine Sulfate 200 Mg Tab) 400 mg PO HS [facility] Stop: 09/29/21 22:21 Last Admin: 08/31/21 20:40 Dose: 400 mg Documented by: Promethazine HCl 12.5 mg/ (Sodium Chloride) 50.5 mls @ 202 mls/hr IV Q6H PRN PRN Reason: Nausea And Vomiting Stop: 09/29/21 22:21 Last Infusion: 08/31/21 15:12 Dose: Infused Documented by: Piperacillin Sod/Tazobactam (Sod 4.5 gm/ Dextrose) 120 mls @ 30 mls/hr IV Q8H [facility]; Protocol Stop: 09/02/21 00:00 Last Infusion: 09/01/21 11:58 Dose: Infused Documented by: Sodium Chloride (Nss 1000ml) 1,000 mls @ 50 mls/hr IV .Q20H [facility] Stop: 09/30/21 05:14 Last Infusion: 09/01/21 11:54 Dose: 50 mls/hr Documented by: Insulin Aspart (Insulin Aspart Per Unit) 0 units SC ACHS [facility] Stop: 09/29/21 22:21 Last Admin: 09/01/21 09:00 Dose: 8 units Documented by: Insulin Glargine (Insulin Glargine Solostar 100 Units/Ml 3 Ml Pen) 5 units SC BID [facility] Stop: 10/01/21 11:59 Lactobacillus Acidophilus (Advanced Probiotic 1250 Mg Capsule) 2 cap PO DAILY [facility] Stop: 09/30/21 08:59 Last Admin: 09/01/21 07:54 Dose: 2 cap Documented by: Latanoprost (Latanoprost 0.005% Op Soln 2.5 Ml Btl) 1 drops OP HS [facility] Stop: 09/30/21 00:44 Last Admin: 08/31/21 20:43 Dose: 1 drops Documented by: Levothyroxine Sodium (Levothyroxine Sodium 125 Mcg Tablet) 125 mcg PO DAILYBB [facility] Stop: 09/30/21 06:29 Last Admin: 09/01/21 05:03 Dose: 125 mcg Documented by: Lorazepam (Lorazepam 0.5 Mg Tab) 0.5 mg PO TID PRN PRN Reason: Anxiety Stop: 09/29/21 22:21 Last Admin: 08/31/21 01:01 Dose: 0.5 mg Documented by: Lorazepam (Lorazepam 2 Mg/1 Ml Vial) 0.5 mg IV Q4H PRN PRN Reason: Anxiety Stop: 09/29/21 22:21 Melatonin (Melatonin 3 Mg Tab) 6 mg PO [facility] Stop: 09/29/21 20:59 Last Admin: 08/31/21 20:39 Dose: 6 mg Documented by: Miscellaneous (Carbohydrates For Hypoglycemia ) 15 - 30 gm PO UD PRN PRN Reason: Hypoglycemia Protocol Stop: 09/29/21 22:21 Miscellaneous Information (Piperacill/Tazobac Consult Active) 1 ea N/A UD PRN PRN Reason: Consult Stop: 09/29/21 16:36 Rhopressa-Non- Formulary Patient's Own Med 1 ea OPL Q24H [facility] Stop: 09/30/21 20:59 Last Admin: 08/31/21 20:43 Dose: 1 drops Documented by: Oxycodone HCl (Oxycodone Hcl Ir 5 Mg Tab (Immediate Release)) 5 - 10 mg PO QID PRN PRN Reason: Pain Stop: 09/13/21 20:44 Pantoprazole Sodium (Pantoprazole 40 Mg Tab) [facility] Stop: 09/30/21 08:59 Last Admin: 09/01/21 07:53 Dose: 40 mg Documented by: Prednisone (Prednisone 5 Mg Tab) 5 mg PO QAM [facility] Stop: 09/30/21 08:59 Last Admin: 09/01/21 07:54 Dose: 5 mg Documented by: Tizanidine HCl (Tizanidine Hcl 4 Mg Tablet) 2 mg PO Q6 PRN PRN Reason: Muscle Spasm Stop: 09/29/21 22:21 Last Admin: 09/01/21 09:00 Dose: 2 mg Documented by:
[2021-09-01] MEDS: INSULIN GLARGINE SOLOSTAR 100 UNITS/ML 3 ML PEN SC SCH (20:37)
[2021-09-01] MEDS: LATANOPROST 0.005% OP SOLN 2.5 ML BTL OP SCH (20:39)
[2021-09-01] MEDS: RHOPRESSA OPL SCH (20:49)
[2021-09-01] MEDS: MELATONIN 3 MG TAB PO SCH (20:50)
[2021-09-01] MEDS: amLODIPine BESYLATE 5 MG TAB PO SCH (20:52)
[2021-09-01] MEDS: CYANOCOBALAMIN (B-12) 500 MCG TABLET PO SCH (20:54)
[2021-09-01] MEDS: HYDROXYCHLOROQUINE SULFATE 200 MG TAB PO SCH (20:55)
[2021-09-02] MEDS: SODIUM CHLORIDE 0.9% 1000ML 1,000 ML IV SCH (03:06)
[2021-09-02] MEDS: LEVOTHYROXINE SODIUM 125 MCG TABLET PO SCH (05:33)
[2021-09-02 06:24] LABS: Basophils # (auto) 0.02 K/uL (0-0.2); Basophils % (auto) 0.2 %; Eosinophils # (auto) 0.19 K/uL (0-0.5); Eosinophils % (auto) 1.7 %; Hematocrit (blood only) 31.1 % (37-47); Hemoglobin 10.1 g/dL (12.0-16.0); Immature Granulocytes # (auto) 0.07 K/uL (0.00-0.02); Immature Granulocytes % (auto) 0.6 %; Lymphocytes # (auto) 1.21 K/uL (1.2-3.4); Lymphocytes % (auto) 10.5 %; Mean Corpuscular Hgb Conc 32.5 g/dL (32-36); Mean Corpuscular Volume 92.3 fL (80-100); Mean Platelet Volume 10.4 fL (7.4-10.4); Monocytes # (auto) 1.29 K/uL (0.11-0.59); Monocytes % (auto) 11.2 %; Neutrophils # (auto) 8.73 K/uL (1.4-6.5); Neutrophils % (auto) 75.8 %; Platelet Count 209 K/uL (130-400); RDW Coefficient of Variation 14.7 % (11.5-14.5); RDW Standard Deviation 49.8 fL (36.4-46.3); Red Blood Count 3.37 M/uL (4.2-5.4); White Blood Count 11.51 K/uL (4.8-10.8)
[2021-09-02 06:37] LABS: BUN Creatinine Ratio 23.4 (10-20); Calcium 8.4 mg/dl (8.5-10.1); Creatinine Clr Calc Pharmacy 54.1 ml/min; Est GFR (African American) 50.6 ml/min; Est GFR (Non-African American) 43.7 ml/min; Potassium 3.5 mmol/L (3.5-5.1)
--- NOTE | 2021-09-02 07:41 | Nephrology Consultation ---
Date of Consultation September 02, 2021 Assessment & Plan (1) ALONA (acute kidney injury): improving Stage 2 ALONA on CKD3 nonoliguric likely multifactorial from contrast induced nephropathy/sepsis of urinary origin -daily bmp -will stop NS at this point -diuretics at this point PRN only -no indication for discussion of dialysis -continue to hold torsemide and ACEI -cont to hold K supplements -agree w/ lowered gabapentin dosing -methotrexate dosed weekly > would hold off on dose unless d/w nephro (2) Staghorn calculus: per urology; had been undergoing metabolic w/u as OP in CKD clinic (3) Sepsis secondary to UTI: on unasyn now; f/u pending cxs (4) Hyponatremia: corrected appropriately; hypovolemic History of Present Illness Reason for Consultation: ALONA Requesting Physician: Dr Chaudhary Attending Physician: Cm Chaudhary MD History of Present Illness 71 y/o F whom I'm asked to see for ALONA was admitted for ALONA, hyponatremia, and recurrent complicated UTI from recurrent urolithiasis including large R mid- upper pole staghorn calculus on 08/30 after presenting w/ 2 wks of malaise, N, poor po intake; then more recently w/ N/V, R flank pain. PMH includes RA on chronic immunosuppression with prednisone/MTX, hx of cardiomyopathy (2020 EF 50%) and moderate aortic stenosis, presumptive CAD/PVD, paroxysmal a fib, hepatocellular carcinoma s/p embolization, SIM, DM2 on insulin, LAQUITA on CPAP, HL, blind, hypoithyroid, class 3 obesity, chronic hyomagnesemia. Also w/ CKD 3A w/ baseline creatinine 1.1 and followed in my clinic. She has fairly aggressive stones which emerged in summer 2019, about the same time her HCC did. She was admitted October 2019 for urosepsis in setting of stone to ICU. Stone pathology is unknown. She follows closely wtih Dr Betancourt. Despite zosyn therapy started at admission, she was febrile to 38.3 and On 08/31 she underwent cystoscopy and R ureteral stent placement. Prior to procedure she had cardiology evaluation for 4.2 second pause on telemetry; cardiology continues to follow. Her urine culture grew P mirabilis; her blood cultures remain NGTD. She received IV contrast on 08/28 for f/u of her hepatocellular carcinoma > imaging showed stable hepatic lesion and new R sided kidney stone. Her presenting creatinine was 2; dropped to 1.7 then peaked at 1.8 on 09/01; today she has improved to 1.2 creatinine. Her presenting sodium was 122 on 08/30 at 1530, improved at acceptable rate to 135 today. Currently feels better than admission; no dyspnea at rest but some w/ mild exertion such as up to bathroom. no edema; resolving/improved R flank pain. Allergies Allergy/AdvReac Type Severity Reaction Status Date / Time cephalexin Allergy Severe Anaphylaxis Verified 08/30/21 18:06 Cephalosporins Allergy Severe Anaphylaxis Verified 08/30/21 18:06 lidocaine [From Lidoderm] Allergy Intermediate Rash Verified 08/30/21 18:06 Sulfa (Sulfonamide Allergy Intermediate Hives Verified 08/30/21 18:06 Antibiotics) butorphanol AdvReac Intermediate Rapid heart Verified 08/30/21 18:06 ciprofloxacin AdvReac Mild Nausea Verified 08/30/21 18:06 Home Medications Medication Instructions Recorded Confirmed Type albuterol sulfate 2.5 mg INHALATION Q4 PRN 11/02/18 08/30/21 History albuterol sulfate 90 mcg/actuation 2 puff INHALATION QID 11/02/18 08/30/21 History aerosol inhaler (ProAir HFA) ascorbic acid (vitamin C) 1,000 mg 1,000 g PO QAM 11/02/18 08/30/21 History tablet aspirin 81 mg chewable tablet 162 mg PO 11/02/18 08/30/21 History (Aspirin Childrens) atorvastatin 40 mg tablet 40 mg PO QA 11/02/18 08/30/21 History erythromycin 5 mg/gram (0.5 %) eye 1 applic OPL QID 11/02/18 08/30/21 History ointment fluticasone propionate 50 2 spray INTRANASAL QAM 11/02/18 08/30/21 History mcg/actuation nasal spray,suspension (Flonase Allergy Relief) folic acid 1 mg tablet 1 mg PO QAM 11/02/18 08/30/21 History gabapentin 400 mg capsule 400 mg PO TID 11/02/18 08/30/21 History hydroxychloroquine 200 mg tablet 400 mg PO 11/02/18 08/30/21 History (Plaquenil) insulin human U-100 NPH-regulr 68 unit SUBCUT BID 11/02/18 08/30/21 History 70-30 mix 100 unit/mL subcutaneous susp (Novolin 70/30 U-100 Insulin) insulin regular human 100 unit/mL 1 sliding scale dose SUBCUT UD 11/02/18 08/30/21 History injection solution (Novolin R Regular U-100 Insulin) latanoprost (PF) 0.005 % eye drops 1 drp OPB HS 11/02/18 08/30/21 History levothyroxine 125 mcg tablet 125 mcg PO DAILYBB 11/02/18 08/30/21 History hbmaad-xloiafrh-jpquvfx 1 cap PO .WITH MEALS & SNACKS 11/02/18 08/30/21 History 24,000-76,000-120,000 unit capsule,delayed rel (Creon) lorazepam 0.5 mg tablet 0.5 mg PO TID PRN 11/02/18 08/30/21 History meclizine 25 mg tablet 25 mg PO TID PRN 11/02/18 08/30/21 History methotrexate sodium 2.5 mg tablet 15 mg PO WK 11/02/18 08/30/21 History multivitamin with iron 1 tab PO QAM 11/02/18 08/30/21 History nitroglycerin 0.4 mg sublingual 0.4 mg SUBLINGUAL UD PRN 11/02/18 08/30/21 History tablet omeprazole 20 mg tablet,delayed 20 mg PO QAM 11/02/18 08/30/21 History release prednisone 5 mg tablet 5 mg PO QAM 11/02/18 08/30/21 History saliva stimulant comb. no.3 1 spray MUCOUS MEMBRANE QID 11/02/18 08/30/21 History (Biotene Moisturizing Mouth) torsemide 10 mg tablet 10 mg PO QAM 11/02/18 08/30/21 History bacitracin-polymyxin B 500 3.5 g OPR TID 10/20/19 08/30/21 History unit-10,000 unit/gram eye ointment (Polycin) brimonidine 0.2 % eye drops 1 drp OPL BID 10/20/19 08/30/21 History cyanocobalamin (vitamin B-12) 1,500 mcg PO QPM 10/20/19 08/30/21 History 1,000 mcg tablet (Vitamin B-12) tizanidine 2 mg tablet 2 mg PO Q6 PRN 10/20/19 08/30/21 History insulin syringe-needle U-100 1 mL #10 ea 11/09/19 08/30/21 History 31 gauge x 08/24" cholecalciferol (vitamin D3) 125 50,000 unit PO WK 01/07/20 08/30/21 History mcg (5,000 unit) tablet (Vitamin D3) lisinopril 5 mg tablet 5 mg PO QAM 07/22/20 08/30/21 History hydrocodone 5 mg-acetaminophen 325 1 tab PO Q6 PRN 03/26/21 08/30/21 History mg tablet melatonin 5 mg tablet 5 mg PO HS 03/30/21 08/30/21 History Probiotic Daily 1 cap PO DAILY 08/30/21 08/30/21 History betaxolol 0.5 % eye drops 1 drp OPL BID 08/30/21 08/30/21 History magnesium oxide 400 mg (241.3 mg 400 mg PO 3XWK 08/30/21 08/30/21 History magnesium) tablet netarsudil 0.02 % eye drops 1 drp OPL HS 08/30/21 08/30/21 History (Rhopressa) potassium chloride 20 mEq 20 meq PO QAM 08/30/21 08/30/21 History tablet,extended release(part/cryst) Patient History Medical History (Updated 09/02/21 @ 12:33 by Luz Tobias MD, PhD) ALONA (acute kidney injury) Anemia Aortic stenosis Blindness Left eye (since ) Chronic back pain Chronic kidney disease, stage 3 Chronic steroid use Congestive heart failure Hx Diabetes mellitus, type 2 IDDM Diabetic neuropathy Diabetic retinopathy Glaucoma Hernia Current History of atrial fibrillation Single, brief episode (2018) Per 04/13/17 cardio note- ECHO reviewed, due to polypharmacy and confusion- recommended observation without additional procedures or cardiac medications at this time History of cancer 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), s/p surgical intervention History of gastric ulcer History of sinus problem Reason for nebulizer and inhalers prn Hyperlipidemia Hypertension Hypothyroidism Indwelling Matute catheter present Ischemic cardiomyopathy Kidney stones Liver cancer Stage 1, under surveillance Migraine Myocardial Infarction Remote silent UT (10+ years ago) Pancreatic lesion Under surveillance, "no current cancer characteristics" Pancreatitis Mutliple, 15+ episodes (no current issues) Rheumatoid arthritis on Plaquenil, MTX, prednisone 5mg daily Sleep apnea CPAP SOB (shortness of breath) on exertion Transient ischemic attack (TIA) ? TIA vs CVA x2 (20+ years ago), no deficits Surgical History History of appendectomy History of bilateral cataract extraction History of biopsy of bladder showed chronic cystitis History of carpal tunnel release of both wrists History of cholecystectomy History of colonoscopy History of cystoscopy WITH STENT INSERTION X MULTIPLE History of cystoscopy Cystoscopy, right stent, right laser lithotripsy (08/11/2020): LMA 4.0 unique, atraumatic, LMA attempt x1 at [facility]. No issues per postop anesthesia progress note. History of detached retina repair x4 on right eye History of dilatation and curettage x3 History of ERCP History of esophagogastroduodenoscopy (EGD) History of liver biopsy X 2 History of lumbar discectomy History of partial thyroidectomy right side and ismis removed d/t papillary cancer History of tarsorrhaphy BILT--right eye closed shut, left eye partly closed History of tooth extraction all top teeth, most of bottom History of total hysterectomy with bilateral salpingo-oophorectomy (BSO) Nausea and vomiting after administration of anesthetic agent S/P appendectomy S/P foot surgery, left "stepped on a needle and had to have it removed" Status post laser lithotripsy of ureteral calculus x3 -> November 2019, December 2019, August 2020 Family History Father Family history of diabetes mellitus Family history of reaction to anesthesia difficulty waking Mother Family history of diabetes mellitus Sister Family history of diabetes mellitus Brother Family history of diabetes mellitus Grandmother (Maternal) Family history of diabetes mellitus Grandmother (Paternal) Family history of diabetes mellitus Son Family history of diabetes mellitus Social History Smoking Status: Never smoker Second Hand Exposure: Yes; Hx Alcohol Use: No Hx Substance Use: No Preferred Language: Lao Communication Ability: Effective Communication Ability Comment: pt is blind Communication Tools: Other Visual Impairment: Blindness Loan Manager Required: No Beliefs That Will Affect Care: None marital status: Current Living Situation: Family Feels Safe at Home: Yes Safety Concerns: Feels Safe At This Time Assistive Devices: Cane and Wheelchair Assistive Devices Comment: blind stick Review of Systems Review of Systems: All systems reviewed & are unremarkable except as noted in HPI & below Physical Exam Constitutional: well developed, well nourished, + obese and cooperative; no acute distress sitting up in chair Eyes: visually impaired/eyes closed ENMT: Ears: no external ear abnormality Nose: no external nose abnormality Mouth: + dry oral mucous membranes Neck: no nuchal rigidity Respiratory: normal respiratory effort Auscultation: + diminished lung sounds Cardiovascular: Rate/Rhythm: regular rate and regular rhythm Heart Sounds: + murmur Extremities: no edema Gastrointestinal (Abdomen): Inspection/Auscultation: normal bowel sounds Percussion/Palpation: abdomen soft; abdomen nontender Musculoskeletal: Extremities: strength 5/5 throughout Skin: no rashes, warm and dry Neurologic: lopez, fluent speech, no tremor Psychiatric: Orientation: oriented x 3 Genitourinary: matute w/ ample light yellow urine Results & Data ([facility]) Vital Signs (Past 12 Hours) Vital Signs Temp Pulse Pulse Resp BP Pulse Ox 09/02/21 07:05 54 L 09/02/21 02:54 36.6 C 57 L 20 129/79 97 09/02/21 00:05 52 L 09/01/21 23:33 36.4 C L 52 L 15 108/69 99 09/01/21 20:06 36.8 C 57 L 20 118/67 99 Laboratory Results 09/02/21 05:41 09/02/21 05:41 urine studies reviewed Diagnostic Findings non con abd/pelvis CT 08/30 Lung base: The lung bases are clear. Abdominal cavity: There is no evidence for abdominal mass, adenopathy or ascites. There is a large ventral abdominal wall hernia of the lower abdominal/pelvic wall. Mesenteric fat extends into it. No bowel loop herniation. Liver: The liver is homogeneous in attenuation on these limited noncontrast images..There is calcification within the right lobe of the liver with resolution of previously identified hepatic cyst. Spleen: The spleen is homogeneous in attenuation on these limited noncontrast images. Pancreas: The pancreas is homogeneous in attenuation on these limited nonco ntrast images. Gall Bladder: Surgical clips are present. Adrenal glands: The adrenal glands are normal in size and attenuation on these limited noncontrast images. Kidneys: There is a large staghorn calculus present involving the mid to upper pole of the right kidney. There is again a cyst involving the lower pole of the right kidney. There has been resolution of previously identified right subcap sular hematoma. The left kidney is within normal limits. There is no left renal calculus or evidence for hydronephrosis bilaterally. Bowel: The bowel loops are normally placed within the abdomen and pelvis without evidence for dilatation or obstruction. There is no evidence for mass lesion. There are no inflammatory changes present. There is no evidence for free air. Bladder: There is no evidence for focal bladder wall thickening, calculus or diverticulum. : There is no evidence for pelvic mass or adenopathy. Vasculaure: There is no evidence for focal aneurysmal dilatation of the abdominal aorta. Atherosclerotic calcification is present. Osseous structures: There is no acute osseous pathology. Extensive degenerative changes are seen within the spine. IMPRESSION: 1. Large staghorn calculus of the mid to upper pole of the right kidney. 2. Otherwise, no acute intra-abdominal or pelvic abnormality on these limited noncontrast images. 3. Additional nonacute findings are delineated above. cxr no acute cp dz
[2021-09-02] MEDS: INSULIN ASPART PER UNIT SC SCH ×4 (08:28→21:12)
[2021-09-02] MEDS: PANCREAZE (LIPASE 10,500U) CAP PO SCH ×3 (08:29→17:27)
[2021-09-02] MEDS: INSULIN GLARGINE SOLOSTAR 100 UNITS/ML 3 ML PEN SC SCH ×2 (08:29→21:13)
[2021-09-02] MEDS: ATORVASTATIN 40 MG TAB PO SCH (08:30)
[2021-09-02] MEDS: ADVANCED PROBIOTIC 1250 MG CAPSULE PO SCH (08:30)
[2021-09-02] MEDS: PANTOprazole 40 MG TAB PO SCH (08:30)
[2021-09-02] MEDS: GABAPENTIN 100 MG CAP PO SCH ×3 (08:30→21:09)
[2021-09-02] MEDS: FOLIC ACID 1 MG TAB PO SCH (08:30)
[2021-09-02] MEDS: FLUTICASONE PROPIONATE NA SPR 16 GM BTL SCH (08:31)
[2021-09-02] MEDS: predniSONE 5 MG TAB PO SCH (08:31)
[2021-09-02] MEDS: BRIMONIDINE TARTRATE 0.2% 5ML OPL SCH ×2 (08:31→19:45)
[2021-09-02] MEDS: BETAXOLOL HCL 0.5% OPL SCH ×2 (08:31→19:47)
[2021-09-02] MEDS: HEPARIN SOD 5,000 UNIT/0.5 ML VIAL SQ SCH ×2 (08:32→21:11)
[2021-09-02] MEDS: ERYTHROMYCIN OP OINT 5 MG/GM 3.5 GM TUBE OPL SCH ×4 (08:32→19:46)
[2021-09-02] MEDS: BACITRACIN/POLYMYX B OPH OINT 3.5 GM TUBE OPR SCH ×4 (08:32→19:46)
[2021-09-02] MEDS: AMPICILLIN/SULBACTAM SOD 3,000 MG in 0.9 % SODIUM CHLORIDE 100 ML IV SCH ×3 (09:05→19:44)
--- NOTE | 2021-09-02 11:06 | Cardiology Progress Note ---
Date of Service September 02, 2021 Assessment & Plan (1) Kidney stone on right side: (2) Acute pyelonephritis: (3) Diabetes: (4) Aortic stenosis: Plan: The patient's bradycardia has improved and she has been in a sinus mechanism. No further recommendations from cardiology at this time. Admission and Anticipated Discharge Date Admission Date: August 30, 2021 Subjective The patient is sitting in a chair. No complaints today. Review of Systems Review of Systems: Review of Systems: See HPI for pertinent positives. All other 10 point review of systems are negative. Physical Exam Physical Exam: General: no acute distress and stated age Head: normocephalic, no masses, lesions, tenderness or abnormalities Eyes: conjunctiva are pink and non-injected, sclera clear Neck: supple, no adenopathy, no bruits, normal jugular venous pulse, no hepatojugular reflux Chest: normal shape and normal respiratory effort Lungs: clear to auscultation and percussion Cardiac Exam: - regular rate & rhythm, systolic murmur- normal S1, normal S2 Pulses: 2(+) throughout Abdomen: abdomen soft, non-tender, no abnormal masses and no hepatosplenomegaly Musculoskeletal: no gait disturbance, no joint inflammation, no deforming arthritis Extremities: no edema and no cyanosis Neuro: grossly normal exam Results & Data ([facility]) Vital Signs (Past 12 Hours) Vital Signs Temp Pulse Pulse Resp BP Pulse Ox 09/02/21 10:55 36.7 C 57 L 17 130/62 91 09/02/21 08:17 36.8 C 63 19 127/55 L 96 09/02/21 07:05 54 L 09/02/21 02:54 36.6 C 57 L 20 129/79 97 09/02/21 00:05 52 L 09/01/21 23:33 36.4 C L 52 L 15 108/69 99 Laboratory Results Laboratory Results - last 24 hr 09/01/21 09/01/21 09/01/21 11:50 16:33 16:34 WBC RBC Hgb Hct MCV MCH MCHC RDW Std Deviation RDW Coeff of Juani Plt Count MPV Immature Gran % (Auto) Neut % (Auto) Lymph % (Auto) [place] % (Auto) Eos % (Auto) Baso % (Auto) Neut # (Auto) Lymph # (Auto) [place] # (Auto) Eos # (Auto) Baso # (Auto) Immature Gran # (Auto) Sodium Potassium Chloride Carbon Dioxide Anion Gap BUN Creatinine Est Cr Clr Drug Dosing Est GFR ( Amer) Est GFR (Non-Af Amer) BUN/Creatinine Ratio Glucose POC Glucose 298 H 347 H* 362 H* Calcium 09/01/21 09/02/21 09/02/21 20:17 05:41 05:41 WBC 11.51 H RBC 3.37 L Hgb 10.1 L Hct 31.1 L MCV 92.3 MCH 30.0 MCHC 32.5 RDW Std Deviation 49.8 H RDW Coeff of Juani 14.7 H Plt Count 209 MPV 10.4 Immature Gran % (Auto) 0.6 Neut % (Auto) 75.8 Lymph % (Auto) 10.5 [place] % (Auto) 11.2 Eos % (Auto) 1.7 Baso % (Auto) 0.2 Neut # (Auto) 8.73 H Lymph # (Auto) 1.21 [place] # (Auto) 1.29 H Eos # (Auto) 0.19 Baso # (Auto) 0.02 Immature Gran # (Auto) 0.07 H Sodium 135 L Potassium 3.5 Chloride 103 Carbon Dioxide 25 Anion Gap 7 BUN 29 H Creatinine 1.24 H D Est Cr Clr Drug Dosing 54.1 Est GFR ( Amer) 50.6 Est GFR (Non-Af Amer) 43.7 BUN/Creatinine Ratio 23.4 H Glucose 131 H POC Glucose 279 H Calcium 8.4 L 09/02/21 07:10 WBC RBC Hgb Hct MCV MCH MCHC RDW Std Deviation RDW Coeff of Juani Plt Count MPV Immature Gran % (Auto) Neut % (Auto) Lymph % (Auto) [place] % (Auto) Eos % (Auto) Baso % (Auto) Neut # (Auto) Lymph # (Auto) [place] # (Auto) Eos # (Auto) Baso # (Auto) Immature Gran # (Auto) Sodium Potassium Chloride Carbon Dioxide Anion Gap BUN Creatinine Est Cr Clr Drug Dosing Est GFR ( Amer) Est GFR (Non-Af Amer) BUN/Creatinine Ratio Glucose POC Glucose 141 H Calcium Medications Administered Current Inpatient Medications Acetaminophen (Acetaminophen 325 Mg Tab) 650 mg PO Q4H PRN PRN Reason: Pain or Fever Stop: 09/29/21 20:44 Last Admin: 09/01/21 05:03 Dose: 650 mg Documented by: Amlodipine Besylate (Amlodipine Besylate 5 Mg Tab) 5 mg PO HS [facility] Stop: 09/30/21 20:59 Last Admin: 09/01/21 20:52 Dose: 5 mg Documented by: Lipase/Protease/Amylase (Pancreaze (Lipase 10,500u) Cap) 2 cap PO TIDM LIBBY Stop: 09/30/21 07:59 Last Admin: 09/02/21 08:29 Dose: 2 cap Documented by: Lipase/Protease/Amylase (Pancreaze (Lipase 10,500u) Cap) 2 cap PO .WITH SNACKS PRN PRN Reason: with each snack Stop: 09/29/21 23:19 Atorvastatin Calcium (Atorvastatin 40 Mg Tab) 40 mg PO QAM LIBBY Stop: 09/30/21 08:59 Last Admin: 09/02/21 08:30 Dose: 40 mg Documented by: Bacitracin/Polymyxin B Sulfate (Bacitracin/Polymyx B Oph Oint 3.5 Gm Tube) 1 appln OPR TID LIBBY Stop: 09/06/21 22:21 Last Admin: 09/02/21 08:32 Dose: 1 appln Documented by: Betaxolol HCl (Betaxolol Hcl 0.5% Op 5 Ml Btl) 1 drops OPL BID [facility] Stop: 09/29/21 22:21 Last Admin: 09/02/21 08:31 Dose: 1 drops Documented by: Brimonidine Tartrate (Brimonidine Tartrate 0.2% 5ml) 1 drops OPL BID [facility] Stop: 09/29/21 22:21 Last Admin: 09/02/21 08:31 Dose: 1 drops Documented by: Cyanocobalamin (Cyanocobalamin (B-12) 500 Mcg Tablet) 1,500 mcg PO QPM LIBBY Stop: 09/29/21 22:21 Last Admin: 09/01/21 20:54 Dose: 1,500 mcg Documented by: Dextrose (Dextrose 50% 50 Ml Syringe) 25 - 50 ml IV UD PRN; Protocol PRN Reason: Hypoglycemia Protocol Stop: 09/29/21 22:21 Erythromycin (Erythromycin Op Oint 5 Mg/Gm 3.5 Gm Tube) 1 appln OPL QID LIBBY Stop: 09/07/21 22:21 Last Admin: 09/02/21 08:32 Dose: 1 appln Documented by: Fluticasone Propionate (Fluticasone Propionate Na Spr 16 Gm Btl) 2 sprays NA QAM LIBBY Stop: 09/30/21 08:59 Last Admin: 09/02/21 08:31 Dose: 2 sprays Documented by: Folic Acid (Folic Acid 1 Mg Tab) 1 mg PO QAM LIBBY Stop: 09/30/21 08:59 Last Admin: 09/02/21 08:30 Dose: 1 mg Documented by: Gabapentin (Gabapentin 100 Mg Cap) 200 mg PO TID LIBBY Stop: 09/29/21 22:21 Last Admin: 09/02/21 08:30 Dose: 200 mg Documented by: Glucagon (Glucagon For Inj 1 Mg Vial) 1 mg SQ UD PRN; Protocol PRN Reason: Hypoglycemia Protocol Stop: 09/29/21 22:21 Glucose (Glucose 10 Tabs/Tube) 4 - 8 tabs PO UD PRN; Protocol PRN Reason: Hypoglycemia Protocol Stop: 09/29/21 22:21 Glucose (Glucose 40% Gel 15 Gm Tube) 15 - 30 gm PO UD PRN; Protocol PRN Reason: Hypoglycemia Protocol Stop: 09/29/21 22:21 Heparin Sodium (Porcine) (Heparin Sod 5,000 Unit/0.5 Ml Vial) 5,000 units SQ Q12 LIBBY Stop: 09/30/21 20:59 Last Admin: 09/02/21 08:32 Dose: 5,000 units Documented by: Hydromorphone HCl (Hydromorphone Inj 0.5 Mg/0.5 Ml Syr) 0.5 mg IV Q3H PRN PRN Reason: Pain Stop: 09/13/21 20:44 Hydroxychloroquine Sulfate (Hydroxychloroquine Sulfate 200 Mg Tab) 400 mg PO HS [facility] Stop: 09/29/21 22:21 Last Admin: 09/01/21 20:55 Dose: 400 mg Documented by: Promethazine HCl 12.5 mg/ (Sodium Chloride) 50.5 mls @ 202 mls/hr IV Q6H PRN PRN Reason: Nausea And Vomiting Stop: 09/29/21 22:21 Last Infusion: 08/31/21 15:12 Dose: Infused Documented by: Sodium Chloride (Nss 1000ml) 1,000 mls @ 50 mls/hr IV .Q20H LIBBY Stop: 09/30/21 05:14 Last Admin: 09/02/21 03:06 Dose: 50 mls/hr Documented by: Ampicillin Sodium/Sulbactam Sodium 3,000 mg/ Sodium Chloride 108 mls @ 200 mls/hr IV Q6H [facility]; Protocol Stop: 09/12/21 08:14 Last Infusion: 09/02/21 09:39 Dose: Infused Documented by: Insulin Aspart (Insulin Aspart Per Unit) 0 units SC ACHS [facility] Stop: 09/29/21 22:21 Last Admin: 09/02/21 08:28 Dose: 6 units Documented by: Insulin Glargine (Insulin Glargine Solostar 100 Units/Ml 3 Ml Pen) 10 units SC BID [facility] Stop: 10/01/21 20:59 Last Admin: 09/02/21 08:29 Dose: 10 units Documented by: Lactobacillus Acidophilus (Advanced Probiotic 1250 Mg Capsule) 2 cap PO DAILY [facility] Stop: 09/30/21 08:59 Last Admin: 09/02/21 08:30 Dose: 2 cap Documented by: Latanoprost (Latanoprost 0.005% Op Soln 2.5 Ml Btl) 1 drops OP [facility] Stop: 09/30/21 00:44 Last Admin: 09/01/21 20:39 Dose: 1 drops Documented by: Levothyroxine Sodium (Levothyroxine Sodium 125 Mcg Tablet) 125 mcg PO DAILYBB [facility] Stop: 09/30/21 06:29 Last Admin: 09/02/21 05:33 Dose: 125 mcg Documented by: Lorazepam (Lorazepam 0.5 Mg Tab) 0.5 mg PO TID PRN PRN Reason: Anxiety Stop: 09/29/21 22:21 Last Admin: 08/31/21 01:01 Dose: 0.5 mg Documented by: Lorazepam (Lorazepam 2 Mg/1 Ml Vial) 0.5 mg IV Q4H PRN PRN Reason: Anxiety Stop: 09/29/21 22:21 Melatonin (Melatonin 3 Mg Tab) 6 mg PO [facility] Stop: 09/29/21 20:59 Last Admin: 09/01/21 20:50 Dose: 6 mg Documented by: Miscellaneous (Carbohydrates For Hypoglycemia ) 15 - 30 gm PO UD PRN PRN Reason: Hypoglycemia Protocol Stop: 09/29/21 22:21 Rhopressa-Non- Formulary Patient's Own Med 1 ea OPL Q24H [facility] Stop: 09/30/21 20:59 Last Admin: 09/01/21 20:49 Dose: 1 drops Documented by: Oxycodone HCl (Oxycodone Hcl Ir 5 Mg Tab (Immediate Release)) 5 - 10 mg PO QID PRN PRN Reason: Pain Stop: 09/13/21 20:44 Pantoprazole Sodium (Pantoprazole 40 Mg Tab) 40 mg PO [facility] Stop: 09/30/21 08:59 Last Admin: 09/02/21 08:30 Dose: 40 mg Documented by: Prednisone (Prednisone 5 Mg Tab) 5 mg PO [facility] Stop: 09/30/21 08:59 Last Admin: 09/02/21 08:31 Dose: 5 mg Documented by: Tizanidine HCl (Tizanidine Hcl 4 Mg Tablet) 2 mg PO Q6 PRN PRN Reason: Muscle Spasm Stop: 09/29/21 22:21 Last Admin: 09/01/21 21:09 Dose: 2 mg Documented by:
--- NOTE | 2021-09-02 15:02 | Hospitalist Progress Note ---
Date of Service September 02, 2021 Assessment & Plan (1) Sepsis secondary to UTI: (2) Staghorn calculus: (3) ALONA (acute kidney injury): (4) Hyponatremia: Plan: Sepsis with complicated UTI due to Proteus mirabilis in setting of infected staghorn calculi- - Met sepsis criteria with fever, leucocytosis and tachycardia. - Sepsis resolving - Right renal pelvis urine 08/31 growing proteus mirabilis- pansensitive but patient has multiple ABx allergies- tolerating Pcn so far - S/p zosyn -> iv unasyn per urine clx results. Her stone is likely infected as urine from kidney from OR is growing proteus, so might need prolonged ABx until the stone is taken out. Will consult ID for recommendations - Blood clx negative. leucytosis improving, no more febrile Right staghorn calculi, right duplicated ureter - s/p Cystoscopy with Right Retrograde Pyelogram, ureteroscopy, dilation, and Right Ureteral Stent Placement x [address] Johansen 08/31- further management per uro - Uro will follow up as OP for definitive management of stone ALONA- baseline of 1. On presentation 1.95->1.76->1.68->1.82->1.24. likely from sepsis. Nephro following. Recheck in am Hyponatremia- on admission 128->129->130->135. Corrected appropriately. IVF discontinued Sinus bradycadia- asymptomatic, chronic issues, cardio following. Not on AV sam blockers. Had sinus pause- 4.2 s on 08/31- management per cardio. HTN- BP improved today. On norvasc. holding lisinopril and home diuretic- resume as indicated DM2 with hyperglycemia- well-controlled, a1c 6.2 June 02. BG elevated due to inadequate insulin dose- will adjust insulin for optimal control Elevated trop- mild, flat trend. No chest pain, no EKG changes of ischemia. Demand ischemia and in setting of ALONA. Hypothyroid- on synthroid H/o RA on plaquenil, prednisone, folic acid. MTX on hold per Nephro H/o PAF- currently NSR. Not on anticoagulation per records Legal blindness Moderate (TTE 2020) Hepatocellular carcinoma status post embolization, shrinking tumor as of last outpatient report May 2021 DVT ppx- sc heparin Dispo- ID eval pending. Admission and Anticipated Discharge Date Admission Date: August 30, 2021 Subjective She feels significantly better. Still has some right flank pain but no fever, chills, nausea, vomiting. Asking when she would be discharged home. Had good night sleep yesterday. Physical Exam Physical Exam: General: Sitting comfortably in chair, not in distress, on room air HEENT: Legally blind. MMM Chest: Clear breath sounds bilaterally, no wheezes or crackles CVS: Regular, normal heart sounds, no murmur Abdomen: Soft, non tender, not distended, normal bowel sounds Mild right flank tenderness Neuro: Awake, alert, oriented, conversing well, non focal Extremities: No cyanosis, clubbing or edema Results & Data Results & Data ([facility]) Vital Signs (Past 12 Hours) Vital Signs Temp Pulse Pulse Resp BP Pulse Ox 09/02/21 10:55 36.7 C 57 L 17 130/62 91 09/02/21 08:17 36.8 C 63 19 127/55 L 96 09/02/21 07:05 54 L 09/02/21 02:54 36.6 C 57 L 20 129/79 97 Laboratory Results Short CBC 09/02/21 Range/Units 05:41 WBC 11.51 H (4.8-10.8) K/uL Hgb 10.1 L (12.0-16.0) g/dL Hct 31.1 L (37-47) % Plt Count 209 (130-400) K/uL BMP 09/02/21 05:41 Sodium 135 L Potassium 3.5 Chloride 103 Carbon Dioxide 25 BUN 29 H Creatinine 1.24 H D Glucose 131 H Calcium 8.4 L Medications Administered Current Inpatient Medications Acetaminophen (Acetaminophen 325 Mg Tab) 650 mg PO Q4H PRN PRN Reason: Pain or Fever Stop: 09/29/21 20:44 Last Admin: 09/01/21 05:03 Dose: 650 mg Documented by: Amlodipine Besylate (Amlodipine Besylate 5 Mg Tab) 5 mg PO HS [facility] Stop: 09/30/21 20:59 Last Admin: 09/01/21 20:52 Dose: 5 mg Documented by: Lipase/Protease/Amylase (Pancreaze (Lipase 10,500u) Cap) 2 cap PO TIDM [facility] Stop: 09/30/21 07:59 Last Admin: 09/02/21 12:49 Dose: 2 cap Documented by: Lipase/Protease/Amylase (Pancreaze (Lipase 10,500u) Cap) 2 cap PO .WITH SNACKS PRN PRN Reason: with each snack Stop: 09/29/21 23:19 Atorvastatin Calcium (Atorvastatin 40 Mg Tab) 40 mg PO QAM [facility] Stop: 09/30/21 08:59 Last Admin: 09/02/21 08:30 Dose: 40 mg Documented by: Bacitracin/Polymyxin B Sulfate (Bacitracin/Polymyx B Oph Oint 3.5 Gm Tube) 1 appln OPR QID [facility] Stop: 10/02/21 12:59 Last Admin: 09/02/21 12:49 Dose: 1 appln Documented by: Betaxolol HCl (Betaxolol Hcl 0.5% Op 5 Ml Btl) 1 drops OPL BID [facility] Stop: 09/29/21 22:21 Last Admin: 09/02/21 08:31 Dose: 1 drops Documented by: Brimonidine Tartrate (Brimonidine Tartrate 0.2% 5ml) 1 drops OPL BID [facility] Stop: 09/29/21 22:21 Last Admin: 09/02/21 08:31 Dose: 1 drops Documented by: Cyanocobalamin (Cyanocobalamin (B-12) 500 Mcg Tablet) 1,500 mcg PO QPM [facility] Stop: 09/29/21 22:21 Last Admin: 09/01/21 20:54 Dose: 1,500 mcg Documented by: Dextrose (Dextrose 50% 50 Ml Syringe) 25 - 50 ml IV UD PRN; Protocol PRN Reason: Hypoglycemia Protocol Stop: 09/29/21 22:21 Erythromycin (Erythromycin Op Oint 5 Mg/Gm 3.5 Gm Tube) 1 appln OPL QID [facility] Stop: 09/07/21 22:21 Last Admin: 09/02/21 12:49 Dose: 1 appln Documented by: Fluticasone Propionate (Fluticasone Propionate Na Spr 16 Gm Btl) 2 sprays NA QAM [facility] Stop: 09/30/21 08:59 Last Admin: 09/02/21 08:31 Dose: 2 sprays Documented by: Folic Acid (Folic Acid 1 Mg Tab) 1 mg PO QAM [facility] Stop: 09/30/21 08:59 Last Admin: 09/02/21 08:30 Dose: 1 mg Documented by: Gabapentin (Gabapentin 100 Mg Cap) 200 mg PO TID [facility] Stop: 09/29/21 22:21 Last Admin: 09/02/21 12:50 Dose: 200 mg Documented by: Glucagon (Glucagon For Inj 1 Mg Vial) 1 mg SQ UD PRN; Protocol PRN Reason: Hypoglycemia Protocol Stop: 09/29/21 22:21 Glucose (Glucose 10 Tabs/Tube) 4 - 8 tabs PO UD PRN; Protocol PRN Reason: Hypoglycemia Protocol Stop: 09/29/21 22:21 Glucose (Glucose 40% Gel 15 Gm Tube) 15 - 30 gm PO UD PRN; Protocol PRN Reason: Hypoglycemia Protocol Stop: 09/29/21 22:21 Heparin Sodium (Porcine) (Heparin Sod 5,000 Unit/0.5 Ml Vial) 5,000 units SQ Q12 [facility] Stop: 09/30/21 20:59 Last Admin: 09/02/21 08:32 Dose: 5,000 units Documented by: Hydromorphone HCl (Hydromorphone Inj 0.5 Mg/0.5 Ml Syr) 0.5 mg IV Q3H PRN PRN Reason: Pain Stop: 09/13/21 20:44 Hydroxychloroquine Sulfate (Hydroxychloroquine Sulfate 200 Mg Tab) 400 mg PO HS [facility] Stop: 09/29/21 22:21 Last Admin: 09/01/21 20:55 Dose: 400 mg Documented by: Promethazine HCl 12.5 mg/ (Sodium Chloride) 50.5 mls @ 202 mls/hr IV Q6H PRN PRN Reason: Nausea And Vomiting Stop: 09/29/21 22:21 Last Infusion: 08/31/21 15:12 Dose: Infused Documented by: Ampicillin Sodium/Sulbactam Sodium 3,000 mg/ Sodium Chloride 108 mls @ 200 mls/hr IV Q6H [facility]; Protocol Stop: 09/12/21 08:14 Last Admin: 09/02/21 14:02 Dose: 200 mls/hr Documented by: Insulin Aspart (Insulin Aspart Per Unit) 0 units SC ACHS [facility] Stop: 09/29/21 22:21 Last Admin: 09/02/21 12:48 Dose: 14 units Documented by: Insulin Glargine (Insulin Glargine Solostar 100 Units/Ml 3 Ml Pen) 10 units SC BID [facility] Stop: 10/01/21 20:59 Last Admin: 09/02/21 08:29 Dose: 10 units Documented by: Lactobacillus Acidophilus (Advanced Probiotic 1250 Mg Capsule) 2 cap PO DAILY [facility] Stop: 09/30/21 08:59 Last Admin: 09/02/21 08:30 Dose: 2 cap Documented by: Latanoprost (Latanoprost 0.005% Op Soln 2.5 Ml Btl) 1 drops OP HS [facility] Stop: 09/30/21 00:44 Last Admin: 09/01/21 20:39 Dose: 1 drops Documented by: Levothyroxine Sodium (Levothyroxine Sodium 125 Mcg Tablet) 125 mcg PO DAILYBB [facility] Stop: 09/30/21 06:29 Last Admin: 09/02/21 05:33 Dose: 125 mcg Documented by: Lorazepam (Lorazepam 0.5 Mg Tab) 0.5 mg PO TID PRN PRN Reason: Anxiety Stop: 09/29/21 22:21 Last Admin: 08/31/21 01:01 Dose: 0.5 mg Documented by: Lorazepam (Lorazepam 2 Mg/1 Ml Vial) 0.5 mg IV Q4H PRN PRN Reason: Anxiety Stop: 09/29/21 22:21 Melatonin (Melatonin 3 Mg Tab) 6 mg PO HS [facility] Stop: 09/29/21 20:59 Last Admin: 09/01/21 20:50 Dose: 6 mg Documented by: Miscellaneous (Carbohydrates For Hypoglycemia ) 15 - 30 gm PO UD PRN PRN Reason: Hypoglycemia Protocol Stop: 09/29/21 22:21 Rhopressa-Non- Formulary Patient's Own Med 1 ea OPL Q24H [facility] Stop: 09/30/21 20:59 Last Admin: 09/01/21 20:49 Dose: 1 drops Documented by: Oxycodone HCl (Oxycodone Hcl Ir 5 Mg Tab (Immediate Release)) 5 - 10 mg PO QID PRN PRN Reason: Pain Stop: 09/13/21 20:44 Pantoprazole Sodium (Pantoprazole 40 Mg Tab) 40 mg PO QAM [facility] Stop: 09/30/21 08:59 Last Admin: 09/02/21 08:30 Dose: 40 mg Documented by: Prednisone (Prednisone 5 Mg Tab) 5 mg PO QAM [facility] Stop: 09/30/21 08:59 Last Admin: 09/02/21 08:31 Dose: 5 mg Documented by: Tizanidine HCl (Tizanidine Hcl 4 Mg Tablet) 2 mg PO Q6 PRN PRN Reason: Muscle Spasm Stop: 09/29/21 22:21 Last Admin: 09/01/21 21:09 Dose: 2 mg Documented by:
[2021-09-02] MEDS: LATANOPROST 0.005% OP SOLN 2.5 ML BTL OP SCH (21:08)
[2021-09-02] MEDS: RHOPRESSA OPL SCH (21:08)
[2021-09-02] MEDS: HYDROXYCHLOROQUINE SULFATE 200 MG TAB PO SCH (21:10)
[2021-09-02] MEDS: amLODIPine BESYLATE 5 MG TAB PO SCH (21:11)
[2021-09-02] MEDS: MELATONIN 3 MG TAB PO SCH (21:11)
[2021-09-02] MEDS: tiZANidine HCL 4 MG TABLET PO PRN (21:11)
[2021-09-02] MEDS: CYANOCOBALAMIN (B-12) 500 MCG TABLET PO SCH (21:42)
[2021-09-03] MEDS: AMPICILLIN/SULBACTAM SOD 3,000 MG in 0.9 % SODIUM CHLORIDE 100 ML IV SCH ×3 (02:00→14:20)
[2021-09-03] MEDS: LEVOTHYROXINE SODIUM 125 MCG TABLET PO SCH (06:16)
[2021-09-03 07:44] LABS: Hematocrit (blood only) 32.7 % (37-47); Hemoglobin 10.6 g/dL (12.0-16.0); Mean Corpuscular Hemoglobin 30.5 pg (25-34); Mean Corpuscular Hgb Conc 32.4 g/dL (32-36); Mean Corpuscular Volume 94.2 fL (80-100); Mean Platelet Volume 10.3 fL (7.4-10.4); Platelet Count 242 K/uL (130-400); RDW Coefficient of Variation 14.6 % (11.5-14.5); RDW Standard Deviation 49.9 fL (36.4-46.3); Red Blood Count 3.47 M/uL (4.2-5.4); White Blood Count 10.54 K/uL (4.8-10.8)
[2021-09-03 07:54] LABS: BUN Creatinine Ratio 23.1 (10-20); Calcium 8.8 mg/dl (8.5-10.1); Creatinine Clr Calc Pharmacy 73.2 ml/min; Est GFR (African American) 73.6 ml/min; Est GFR (Non-African American) 63.5 ml/min; Potassium 3.5 mmol/L (3.5-5.1)
[2021-09-03] MEDS: INSULIN ASPART PER UNIT SC SCH ×4 (09:22→20:38)
[2021-09-03] MEDS: HEPARIN SOD 5,000 UNIT/0.5 ML VIAL SQ SCH ×2 (09:23→20:46)
[2021-09-03] MEDS: predniSONE 5 MG TAB PO SCH (09:25)
[2021-09-03] MEDS: GABAPENTIN 100 MG CAP PO SCH ×3 (09:26→20:44)
[2021-09-03] MEDS: PANCREAZE (LIPASE 10,500U) CAP PO SCH ×3 (09:26→18:05)
[2021-09-03] MEDS: PANTOprazole 40 MG TAB PO SCH (09:26)
[2021-09-03] MEDS: ADVANCED PROBIOTIC 1250 MG CAPSULE PO SCH (09:26)
[2021-09-03] MEDS: ATORVASTATIN 40 MG TAB PO SCH (09:27)
[2021-09-03] MEDS: FOLIC ACID 1 MG TAB PO SCH (09:27)
[2021-09-03] MEDS: BETAXOLOL HCL 0.5% OPL SCH ×2 (09:53→20:49)
[2021-09-03] MEDS: ERYTHROMYCIN OP OINT 5 MG/GM 3.5 GM TUBE OPL SCH ×4 (09:53→20:49)
[2021-09-03] MEDS: BACITRACIN/POLYMYX B OPH OINT 3.5 GM TUBE OPR SCH ×4 (09:54→20:49)
[2021-09-03] MEDS: BRIMONIDINE TARTRATE 0.2% 5ML OPL SCH ×2 (09:54→20:50)
[2021-09-03] MEDS: FLUTICASONE PROPIONATE NA SPR 16 GM BTL SCH (09:55)
[2021-09-03] MEDS: INSULIN GLARGINE SOLOSTAR 100 UNITS/ML 3 ML PEN SC SCH ×2 (09:56→20:39)
--- NOTE | 2021-09-03 14:00 | Nephrology Progress Note ---
Date of Service September 03, 2021 Assessment & Plan (1) ALONA (acute kidney injury): Plan: further improving Stage 2 ALONA on CKD3 nonoliguric likely multifactorial from contrast induced nephropathy/sepsis of urinary origin > having post obstructive diuresis. -daily bmp -diuretics at this point PRN only -hx of chronic hypomagnesemia > will check mag level in am and resume mag -resume lower dose of torsemide > 5 mg daily torsemide -continue to hold ACEI -will resume K supplements 20 mE daily w/ extra 20 mEq dose today -currently on lowered gabapentin dosing > defer to primary service if/when to increase -methotrexate dosed weekly > would hold off on dose unless d/w nephro -from neph standpoint could remove matute (2) Staghorn calculus: Plan: per urology; had been undergoing metabolic w/u as OP in CKD clinic (3) Sepsis secondary to UTI: Plan: on unasyn now; f/u pending cxs (4) Hyponatremia: Plan: corrected appropriately; hypovolemic Admission and Anticipated Discharge Date Admission Date: August 30, 2021 Subjective ing better yet; exertional dyspnea improved; tolerating catheter; no edema, no further flank pain Physical Exam Constitutional: well developed, well nourished, + obese and cooperative; no acute distress ENMT: Ears: no external ear abnormality Nose: no external nose abnormality Mouth: + dry oral mucous membranes Neck: no nuchal rigidity Respiratory: normal respiratory effort Auscultation: + diminished lung sounds Cardiovascular: Rate/Rhythm: regular rhythm and + bradycardic (w/ occasional skipped beat) Heart Sounds: + murmur Extremities: no edema Gastrointestinal (Abdomen): Inspection/Auscultation: normal bowel sounds Percussion/Palpation: abdomen soft; abdomen nontender Musculoskeletal: Extremities: strength 5/5 throughout Skin: no rashes, warm and dry Psychiatric: Orientation: oriented x 3 Results & Data ([facility]) Vital Signs (Past 12 Hours) Vital Signs Temp Pulse Pulse Pulse Resp BP Pulse Ox 09/03/21 13:00 36.6 C 61 18 156/74 H 95 09/03/21 08:46 36.6 C 62 18 136/62 96 09/03/21 07:41 52 L 09/03/21 03:28 36.4 C L 55 L 18 118/70 100
[2021-09-03] MEDS ORDERED: POTASSIUM CHLORIDE CRTAB 20 MEQ TABCR PO ONE (14:30)
[2021-09-03] MEDS: MAGNESIUM OXIDE 400 MG TAB PO SCH (14:39)
[2021-09-03] MEDS: TORSEMIDE 10 MG TAB PO SCH (14:39)
--- NOTE | 2021-09-03 16:50 | Hospitalist Progress Note ---
Date of Service September 03, 2021 Assessment & Plan (1) Sepsis secondary to UTI: (2) Staghorn calculus: (3) ALONA (acute kidney injury): (4) Hyponatremia: Plan: Sepsis with complicated UTI due to Proteus mirabilis in setting of infected staghorn calculi- - Met sepsis criteria with fever, leucocytosis and tachycardia. - Sepsis resolved. Blood clx negative. WBC normal now. Afebrile now. - Right renal pelvis urine 08/31 growing proteus mirabilis- pansensitive but thomas ent has multiple ABx allergies- tolerating Pcn so far - S/p zosyn -> iv unasyn- >iv ampicillin per urine clx results. - Seen by ID- recommended ampicillin 2g q6hr inhouse and change to amoxcillin 500 mg q8hr at discharge to complete 14-28 day course (usually 14 day given the stones but this can be extended to as long as a month if lithotripsy is planned in that time per ID). Right staghorn calculi, right duplicated ureter - s/p Cystoscopy with Right Retrograde Pyelogram, ureteroscopy, dilation, and Right Ureteral Stent Placement x [address] Johansen 08/31- further management per uro - Uro will follow up as OP for definitive management of stone - Remove matute and voiding trial ALONA- baseline of 1. On presentation 1.95->1.76->1.68->1.82->1.24->0.9. likely from sepsis. Nephro following. started back on torsemide. Recheck in am Hyponatremia- on admission 128->129->130->135. Corrected appropriately. IVF discontinued Sinus bradycardia- intermittent, asymptomatic, chronic issues, cardio following. Not on AV sam blockers. Had sinus pause- 4.2 s on 08/31- management per cardio. HTN- BP currently labile, Continue norvasc, diuretic. consider resuming lisinopril if BP remains high DM2 with hyperglycemia- well-controlled, a1c 6.2 June 02. continue insulin- adjust as indicated Elevated trop- mild, flat trend. No chest pain, no EKG changes of ischemia. Demand ischemia and in setting of ALONA. Hypothyroid- on synthroid H/o RA on plaquenil, prednisone, folic acid. MTX on hold per Nephro H/o PAF- currently NSR. Not on anticoagulation per records Legal blindness Moderate (TTE 2020) Hepatocellular carcinoma status post embolization, shrinking tumor as of last outpatient report May 2021 DVT ppx- sc heparin Dispo- PT/OT eval pending. Anticipate discharge tomorrow to home. Admission and Anticipated Discharge Date Admission Date: August 30, 2021 Subjective She feels good. No new issues. Pain is well controlled. No N/V. Hoping to go home tomorrow. Physical Exam Physical Exam: General: Sitting comfortably in chair, not in distress, on room air HEENT: Legally blind. MMM Chest: Clear breath sounds bilaterally, no wheezes or crackles CVS: Regular, normal heart sounds, no murmur Abdomen: Soft, non tender, not distended, normal bowel sounds Mild right flank tenderness Neuro: Awake, alert, oriented, conversing well, non focal Extremities: No cyanosis, clubbing or edema Results & Data Results & Data ([facility]) Vital Signs (Past 12 Hours) Vital Signs Temp Pulse Pulse Resp BP Pulse Ox 09/03/21 15:21 66 09/03/21 13:00 36.6 C 61 18 156/74 H 95 09/03/21 08:46 36.6 C 62 18 136/62 96 09/03/21 07:41 52 L Laboratory Results Short CBC 09/03/21 Range/Units 07:05 WBC 10.54 (4.8-10.8) K/uL Hgb 10.6 L (12.0-16.0) g/dL Hct 32.7 L (37-47) % Plt Count 242 (130-400) K/uL BMP 09/03/21 07:05 Sodium 139 Potassium 3.5 Chloride 106 Carbon Dioxide 26 BUN 21 Creatinine 0.91 D Glucose 129 H Calcium 8.8 Medications Administered Current Inpatient Medications Acetaminophen (Acetaminophen 325 Mg Tab) 650 mg PO Q4H PRN PRN Reason: Pain or Fever Stop: 09/29/21 20:44 Last Admin: 09/01/21 05:03 Dose: 650 mg Documented by: Amlodipine Besylate (Amlodipine Besylate 5 Mg Tab) 5 mg PO HS [facility] Stop: 09/30/21 20:59 Last Admin: 09/02/21 21:11 Dose: 5 mg Documented by: Lipase/Protease/Amylase (Pancreaze (Lipase 10,500u) Cap) 2 cap PO TIDM [facility] Stop: 09/30/21 07:59 Last Admin: 09/03/21 13:18 Dose: 2 cap Documented by: Lipase/Protease/Amylase (Pancreaze (Lipase 10,500u) Cap) 2 cap PO .WITH SNACKS PRN PRN Reason: with each snack Stop: 09/29/21 23:19 Atorvastatin Calcium (Atorvastatin 40 Mg Tab) 40 mg PO QAM [facility] Stop: 09/30/21 08:59 Last Admin: 09/03/21 09:27 Dose: 40 mg Documented by: Bacitracin/Polymyxin B Sulfate (Bacitracin/Polymyx B Oph Oint 3.5 Gm Tube) 1 appln OPR QID [facility] Stop: 10/02/21 12:59 Last Admin: 09/03/21 13:19 Dose: 1 appln Documented by: Betaxolol HCl (Betaxolol Hcl 0.5% Op 5 Ml Btl) 1 drops OPL BID [facility] Stop: 09/29/21 22:21 Last Admin: 09/03/21 09:53 Dose: 1 drops Documented by: Brimonidine Tartrate (Brimonidine Tartrate 0.2% 5ml) 1 drops OPL BID [facility] Stop: 09/29/21 22:21 Last Admin: 09/03/21 09:54 Dose: 1 drops Documented by: Cyanocobalamin (Cyanocobalamin (B-12) 500 Mcg Tablet) 1,500 mcg PO QPM [facility] Stop: 09/29/21 22:21 Last Admin: 09/02/21 21:42 Dose: 1,500 mcg Documented by: Dextrose (Dextrose 50% 50 Ml Syringe) 25 - 50 ml IV UD PRN; Protocol PRN Reason: Hypoglycemia Protocol Stop: 09/29/21 22:21 Erythromycin (Erythromycin Op Oint 5 Mg/Gm 3.5 Gm Tube) 1 appln OPL QID [facility] Stop: 09/07/21 22:21 Last Admin: 09/03/21 13:18 Dose: 1 appln Documented by: Fluticasone Propionate (Fluticasone Propionate Na Spr 16 Gm Btl) 2 sprays NA QAM [facility] Stop: 09/30/21 08:59 Last Admin: 09/03/21 09:55 Dose: 2 sprays Documented by: Folic Acid (Folic Acid 1 Mg Tab) 1 mg PO QAM [facility] Stop: 09/30/21 08:59 Last Admin: 09/03/21 09:27 Dose: 1 mg Documented by: Gabapentin (Gabapentin 100 Mg Cap) 200 mg PO TID [facility] Stop: 09/29/21 22:21 Last Admin: 09/03/21 13:25 Dose: 200 mg Documented by: Glucagon (Glucagon For Inj 1 Mg Vial) 1 mg SQ UD PRN; Protocol PRN Reason: Hypoglycemia Protocol Stop: 09/29/21 22:21 Glucose (Glucose 10 Tabs/Tube) 4 - 8 tabs PO UD PRN; Protocol PRN Reason: Hypoglycemia Protocol Stop: 09/29/21 22:21 Glucose (Glucose 40% Gel 15 Gm Tube) 15 - 30 gm PO UD PRN; Protocol PRN Reason: Hypoglycemia Protocol Stop: 09/29/21 22:21 Heparin Sodium (Porcine) (Heparin Sod 5,000 Unit/0.5 Ml Vial) 5,000 units SQ Q12 [facility] Stop: 09/30/21 20:59 Last Admin: 09/03/21 09:23 Dose: 5,000 units Documented by: Hydromorphone HCl (Hydromorphone Inj 0.5 Mg/0.5 Ml Syr) 0.5 mg IV Q3H PRN PRN Reason: Pain Stop: 09/13/21 20:44 Hydroxychloroquine Sulfate (Hydroxychloroquine Sulfate 200 Mg Tab) 400 mg PO HS [facility] Stop: 09/29/21 22:21 Last Admin: 09/02/21 21:10 Dose: 400 mg Documented by: Promethazine HCl 12.5 mg/ (Sodium Chloride) 50.5 mls @ 202 mls/hr IV Q6H PRN PRN Reason: Nausea And Vomiting Stop: 09/29/21 22:21 Last Infusion: 08/31/21 15:12 Dose: Infused Documented by: Ampicillin Sodium 2,000 mg/ (Sodium Chloride) 100 mls @ 200 mls/hr IV Q6H [facility] Stop: 09/13/21 16:59 Insulin Aspart (Insulin Aspart Per Unit) 0 units SC ACHS [facility] Stop: 09/29/21 22:21 Last Admin: 09/03/21 13:16 Dose: 13 units Documented by: Insulin Glargine (Insulin Glargine Solostar 100 Units/Ml 3 Ml Pen) 15 units SC BID [facility] Stop: 10/02/21 20:59 Last Admin: 09/03/21 09:56 Dose: 15 units Documented by: Lactobacillus Acidophilus (Advanced Probiotic 1250 Mg Capsule) 2 cap PO DAILY [facility] Stop: 09/30/21 08:59 Last Admin: 09/03/21 09:26 Dose: 2 cap Documented by: Latanoprost (Latanoprost 0.005% Op Soln 2.5 Ml Btl) 1 drops OP HS [facility] Stop: 09/30/21 00:44 Last Admin: 09/02/21 21:08 Dose: 1 drops Documented by: Levothyroxine Sodium (Levothyroxine Sodium 125 Mcg Tablet) 125 mcg PO DAILYBB [facility] Stop: 09/30/21 06:29 Last Admin: 09/03/21 06:16 Dose: 125 mcg Documented by: Lorazepam (Lorazepam 0.5 Mg Tab) 0.5 mg PO TID PRN PRN Reason: Anxiety Stop: 09/29/21 22:21 Last Admin: 08/31/21 01:01 Dose: 0.5 mg Documented by: Lorazepam (Lorazepam 2 Mg/1 Ml Vial) 0.5 mg IV Q4H PRN PRN Reason: Anxiety Stop: 09/29/21 22:21 Magnesium Oxide (Magnesium Oxide 400 Mg Tab) 400 mg PO QAM [facility] Stop: 10/03/21 14:44 Last Admin: 09/03/21 14:39 Dose: 400 mg Documented by: Melatonin (Melatonin 3 Mg Tab) 6 mg PO HS [facility] Stop: 09/29/21 20:59 Last Admin: 09/02/21 21:11 Dose: 6 mg Documented by: Miscellaneous (Carbohydrates For Hypoglycemia ) 15 - 30 gm PO UD PRN PRN Reason: Hypoglycemia Protocol Stop: 09/29/21 22:21 Rhopressa-Non- Formulary Patient's Own Med 1 ea OPL Q24H [facility] Stop: 09/30/21 20:59 Last Admin: 09/02/21 21:08 Dose: 1 drops Documented by: Oxycodone HCl (Oxycodone Hcl Ir 5 Mg Tab (Immediate Release)) 5 - 10 mg PO QID PRN PRN Reason: Pain Stop: 09/13/21 20:44 Pantoprazole Sodium (Pantoprazole 40 Mg Tab) 40 mg PO QAM [facility] Stop: 09/30/21 08:59 Last Admin: 09/03/21 09:26 Dose: 40 mg Documented by: Potassium Chloride (Potassium Chloride 10 Meq Tabcr) 10 meq PO DAILY [facility] Stop: 10/04/21 08:59 Prednisone (Pred[facility] 5 Mg Tab) [facility] [place] Stop: 09/30/21 08:59 Last Admin: 09/03/21 09:25 Dose: 5 mg Documented by: Tizanidine HCl (Tizanidine Hcl 4 Mg Tablet) 2 mg PO Q6 PRN PRN Reason: Muscle Spasm Stop: 09/29/21 22:21 Last Admin: 09/02/21 21:11 Dose: 2 mg Documented by: Torsemide (Torsemide 10 Mg Tab) [facility] [place] Stop: 10/03/21 14:44 Last Admin: 09/03/21 14:39 Dose: 5 mg Documented by:
[2021-09-03] MEDS: AMPICILLIN 2,000 MG in SODIUM CHLOR 0.9% AD-VAN 100 ML IV SCH ×2 (18:02→22:58)
[2021-09-03] MEDS: CYANOCOBALAMIN (B-12) 500 MCG TABLET PO SCH (20:43)
[2021-09-03] MEDS: HYDROXYCHLOROQUINE SULFATE 200 MG TAB PO SCH (20:45)
[2021-09-03] MEDS: MELATONIN 3 MG TAB PO SCH (20:45)
[2021-09-03] MEDS: amLODIPine BESYLATE 5 MG TAB PO SCH (20:45)
[2021-09-03] MEDS: RHOPRESSA OPL SCH (22:56)
[2021-09-03] MEDS: LATANOPROST 0.005% OP SOLN 2.5 ML BTL OP SCH (22:57)
[2021-09-04] MEDS: AMPICILLIN 2,000 MG in SODIUM CHLOR 0.9% AD-VAN 100 ML IV SCH ×2 (05:46→11:33)
[2021-09-04] MEDS: LEVOTHYROXINE SODIUM 125 MCG TABLET PO SCH (06:17)
[2021-09-04] MEDS: TORSEMIDE 10 MG TAB PO SCH (08:27)
[2021-09-04] MEDS: predniSONE 5 MG TAB PO SCH (08:27)
[2021-09-04] MEDS: PANCREAZE (LIPASE 10,500U) CAP PO SCH ×2 (08:27→12:16)
[2021-09-04] MEDS: PANTOprazole 40 MG TAB PO SCH (08:27)
[2021-09-04] MEDS: ADVANCED PROBIOTIC 1250 MG CAPSULE PO SCH (08:27)
[2021-09-04] MEDS: BACITRACIN/POLYMYX B OPH OINT 3.5 GM TUBE OPR SCH ×2 (08:28→12:17)
[2021-09-04] MEDS: ERYTHROMYCIN OP OINT 5 MG/GM 3.5 GM TUBE OPL SCH ×2 (08:28→12:17)
[2021-09-04] MEDS: HEPARIN SOD 5,000 UNIT/0.5 ML VIAL SQ SCH (08:28)
[2021-09-04] MEDS: BRIMONIDINE TARTRATE 0.2% 5ML OPL SCH (08:28)
[2021-09-04] MEDS: BETAXOLOL HCL 0.5% OPL SCH (08:29)
[2021-09-04] MEDS: ATORVASTATIN 40 MG TAB PO SCH (08:29)
[2021-09-04] MEDS: FOLIC ACID 1 MG TAB PO SCH (08:29)
[2021-09-04] MEDS: FLUTICASONE PROPIONATE NA SPR 16 GM BTL SCH (08:30)
[2021-09-04] MEDS: GABAPENTIN 100 MG CAP PO SCH ×2 (08:30→14:06)
[2021-09-04 08:31] LABS: BUN Creatinine Ratio 18.9 (10-20); Calcium 8.6 mg/dl (8.5-10.1); Creatinine Clr Calc Pharmacy 69.6 ml/min; Est GFR (African American) 69.8 ml/min; Est GFR (Non-African American) 60.3 ml/min; Magnesium 1.6 mg/dl (1.7-2.4); Potassium 3.3 mmol/L (3.5-5.1)
[2021-09-04] MEDS: INSULIN GLARGINE SOLOSTAR 100 UNITS/ML 3 ML PEN SC SCH (08:43)
[2021-09-04] MEDS: INSULIN ASPART PER UNIT SC SCH ×2 (08:43→12:25)
[2021-09-04] MEDS ORDERED: POTASSIUM CHLORIDE 10 MEQ TABCR PO SCH (09:00)
[2021-09-04] MEDS: MAGNESIUM OXIDE 400 MG TAB PO SCH (11:32)
[2021-09-04] MEDS ORDERED: POTASSIUM CHLORIDE CRTAB 20 MEQ TABCR PO STA (11:52)
--- NOTE | 2021-09-04 12:56 | Discharge Summary ---
Date of Service September 04, 2021 Admission HPI Per Admitting Provider History obtained from patient and records. Medical history significant for history of cardiomyopathy (EF 50 to 54%, TTE 2020), presumptive CAD/PVD as per records, PAF, moderate (TTE 2020), hypertension, hyperlipidemia, hepatocellular carcinoma status post embolization, DM2 insulin requiring, hypothyroidism, RA on chronic steroid/methotrexate Rx, history urolithiasis/hydronephrosis/recurrent UTIs as per records, LAQUITA on CPAP, legal blindness. Last confinement October 2019 for hypoglycemia. Patient started not feeling well about 2 weeks ago. Nausea symptoms, poor appetite. Patient felt sicker after outpatient serial contrast CT done for her liver cancer 2 days ago. Achy right flank pain with worsening nausea, vomiting. Some chills. No fever. Patient denies chest pain, SOB. Patient dry cough symptoms. Has completed COVID-19 vaccination. Patient unsure about gross hematuria given legal blindness. Urine noted to have strong odor. At the ER, patient given Zosyn for sepsis. Medical History as above Surgical History : Appendectomy, carpal tunnel surgery, eyelid surgery, cataract surgery liver biopsy, partial thyroidectomy, cholecystectomy, MARLIN for endometriosis Family History : DM, heart disease Personal/Social history : Non-smoker, no EtOH intake, disabled Admission Exam Per Admitting Provider GENERAL: Slightly uncomfortable, slightly anxious, morbidly obese, no respiratory distress SKIN: Pallor, warm HEENT: Sunglasses over patient's eyes, pale palpebral conjunctivae, no ptosis, dry buccal mucosa NECK : Supple, short neck, no tenderness CHEST : CTA, no tenderness HEART : RRR, systolic murmur ABDOMEN: distention, nontender EXTREMITIES : Minimal LE swelling, no LE tenderness, no other conspicuous deformities noted NEUROLOGIC : Coherent, no facial asymmetry, no other gross focality Principal Diagnosis Sepsis due to complicated UTI in setting of staghorn calculi, ALONA, Hyponatremia Discharge Exam General: Sitting comfortably in chair, not in distress, on room air HEENT: Legally blind. MMM Chest: Clear breath sounds bilaterally, no wheezes or crackles CVS: Regular, normal heart sounds, no murmur Abdomen: Soft, non tender, not distended, normal bowel sounds Mild right flank tenderness Neuro: Awake, alert, oriented, conversing well, non focal Extremities: No cyanosis, clubbing or edema Discharge Data Allergies Allergy/AdvReac Type Severity Reaction Status Date / Time cephalexin Allergy Severe Anaphylaxis Verified 08/30/21 18:06 Cephalosporins Allergy Severe Anaphylaxis Verified 08/30/21 18:06 lidocaine [From Lidoderm] Allergy Intermediate Rash Verified 08/30/21 18:06 Sulfa (Sulfonamide Allergy Intermediate Hives Verified 08/30/21 18:06 Antibiotics) butorphanol AdvReac Intermediate Rapid heart Verified 08/30/21 18:06 ciprofloxacin AdvReac Mild Nausea Verified 08/30/21 18:06 Consultations 08/30/21 19:27 ED Decision to Admit Stat 08/30/21 22:22 Consult Urology Routine 08/31/21 09:49 Consult Cardiology Routine 09/01/21 11:51 Consult Nephrology Routine 09/02/21 07:59 Consult Infectious Diseases Routine Procedures Performed Operation Date: 08/31/21 10:50 Actual Procedures p Cystoscopy Right Retrograde Pyelogram with Right Ureteral Stent Placement x 2 - Ernie Johansen, Ordered Studies 08/30/21 15:38 CT abd pelvis wo con Stat 08/31/21 FL retrograde includes kub Routine Laboratory Results WBC 10.54 K/uL (4.8-10.8) 09/03/21 07:05 RBC 3.47 M/uL (4.2-5.4) L 09/03/21 07:05 Hgb 10.6 g/dL (12.0-16.0) L 09/03/21 07:05 Hct 32.7 % (37-47) L 09/03/21 07:05 MCV 94.2 fL (80-100) 09/03/21 07:05 MCH 30.5 pg (25-34) 09/03/21 07:05 MCHC 32.4 g/dL (32-36) 09/03/21 07:05 RDW Std Deviation 49.9 fL (36.4-46.3) H 09/03/21 07:05 RDW Coeff of Juani 14.6 % (11.5-14.5) H 09/03/21 07:05 Plt Count 242 K/uL (130-400) 09/03/21 07:05 MPV 10.3 fL (7.4-10.4) 09/03/21 07:05 Immature Gran % (Auto) 0.6 % 09/02/21 05:41 Neut % (Auto) 75.8 % 09/02/21 05:41 Lymph % (Auto) 10.5 % 09/02/21 05:41 Parmer % (Auto) 11.2 % 09/02/21 05:41 Eos % (Auto) 1.7 % 09/02/21 05:41 Baso % (Auto) 0.2 % 09/02/21 05:41 Neut # (Auto) 8.73 K/uL (1.4-6.5) H 09/02/21 05:41 Lymph # (Auto) 1.21 K/uL (1.2-3.4) 09/02/21 05:41 Parmer # (Auto) 1.29 K/uL (0.11-0.59) H 09/02/21 05:41 Eos # (Auto) 0.19 K/uL (0-0.5) 09/02/21 05:41 Baso # (Auto) 0.02 K/uL (0-0.2) 09/02/21 05:41 Immature Gran # (Auto) 0.07 K/uL (0.00-0.02) H 09/02/21 05:41 RBC Morphology Unremarkable 08/31/21 04:05 PT 10.8 Seconds (9.0-12.0) 08/30/21 15:27 INR 1.0 (0.9-1.1) 08/30/21 15:27 APTT 31.4 Seconds (21.0-31.0) H 08/30/21 15:27 PTT Ratio 1.1 08/30/21 15:27 Sodium 141 mmol/L (136-145) 09/04/21 07:09 Potassium 3.3 mmol/L (3.5-5.1) L 09/04/21 07:09 Chloride 107 mmol/L (98-107) 09/04/21 07:09 Carbon Dioxide 27 mmol/L (21-32) 09/04/21 07:09 Anion Gap 7 (3-11) 09/04/21 07:09 BUN 18 mg/dl (6-23) 09/04/21 07:09 Creatinine 0.95 mg/dl (0.6-1.2) 09/04/21 07:09 Est Cr Clr Drug Dosing 69.6 ml/min 09/04/21 07:09 Est GFR ( Amer) 69.8 ml/min 09/04/21 07:09 Est GFR (Non-Af Amer) 60.3 ml/min 09/04/21 07:09 BUN/Creatinine Ratio 18.9 (10-20) 09/04/21 07:09 Glucose 145 mg/dl (70-99(Fasting)) H 09/04/21 07:09 POC Glucose 187 mg/dl (70-99) H 09/04/21 11:42 Osmolality 271 mOsm/kg (280-300) L 08/30/21 15:27 Calcium 8.6 mg/dl (8.5-10.1) 09/04/21 07:09 Magnesium 1.6 mg/dl (1.7-2.4) L 09/04/21 07:09 Total Bilirubin 0.8 mg/dl (0.2-1.0) 08/30/21 15:27 AST 12 U/L (13-39) L 08/30/21 15: ALT 14 U/L (7-52) 08/30/21 15:27 Alkaline Phosphatase 58 U/L (34-104) 08/30/21 15:27 Troponin I High Sens 34.6 pg/ml (0-14) H 08/31/21 04:05 Total Protein 6.3 gm/dl (6.0-8.3) 08/30/21 15:27 Albumin 3.5 gm/dl (3.4-5.0) 08/30/21 15: Globulin 2.8 gm/dl (2.5-4.0) 08/30/21 15: Albumin/Globulin Ratio 1.3 (0.9-2) 08/30/21 15: Lipase 28 U/L (11-82) 08/30/21 15: TSH 0.852 uIu/ml (0.300-4.500) 08/30/21 15:27 Urine Color Yellow 08/30/21 18:43 Urine Appearance Clear (Clear) 08/30/21 18:43 Urine pH 5.5 (4.5-7.5) 08/30/21 18:43 Ur Specific Rose[place] 1.005 (1.000-1.030) 08/30/21 18:43 Urine Protein Negative (Negative) 08/30/21 18:43 Urine Glucose (UA) Negative (Negative) 08/30/21 18:43 Urine Ketones Negative (Negative) 08/30/21 18:43 Urine Blood 2+ (Negative) H 08/30/21 18:43 Urine Nitrite Negative (Negative) 08/30/21 18:43 Urine Bilirubin Negative (Negative) 08/30/21 18:43 Urine Urobilinogen Negative (Negative) 08/30/21 18:43 Ur Leukocyte Esterase 2+ (Negative) H 08/30/21 18:43 Urine WBC (Auto) 10-30 /hpf (0-5) H 08/30/21 18:43 Urine RBC (Auto) 5-10 /hpf (0-4) H 08/30/21 18:43 U Hyaline Cast (Auto) 1-5 /lpf (0-5) 08/30/21 18:43 U Epithel Cells (Auto) >30 /lpf (0-5) H 08/30/21 18:43 Urine Bacteria (Auto) Negative (Negative) 08/30/21 18:43 Urine Osmolality 130 mOsm/kg (500-800) L 08/30/21 18:43 Ur Random Sodium 12 mmol/L 08/30/21 18:43 SARS-CoV-2, RNA, NAAT NEGATIVE (NEGATIVE) 08/30/21 19:35 Blood Type O Positive 08/30/21 22:40 Antibody Screen NEGATIVE 08/30/21 22:40 Impressions Abdomen/Pelvis CT 08/30/21 15:38 CT abd pelvis wo con CLINICAL HISTORY: vomiting COMPARISON STUDY: 12/13/2019 CT DOSE: 1931.01 mGy.cm TECHNIQUE: Standard CT of the Abdomen and Pelvis was performed without IV contrast. The patient did not receive oral contrast. A dose lowering technique was utilized adhering to the principles of ALARA. FINDINGS: Lung base: The lung bases are clear. Abdominal cavity: There is no evidence for abdominal mass, adenopathy or ascites. There is a large ventral abdominal wall hernia of the lower abdominal/pelvic wall. Mesenteric fat extends into it. No bowel loop herniation. Liver: The liver is homogeneous in attenuation on these limited noncontrast images..There is calcification within the right lobe of the liver with resolution of previously identified hepatic cyst. Spleen: The spleen is homogeneous in attenuation on these limited noncontrast images. Pancreas: The pancreas is homogeneous in attenuation on these limited noncontrast images. Gall Bladder: Surgical clips are present. Adrenal glands: The adrenal glands are normal in size and attenuation on these limited noncontrast images. Kidneys: There is a large staghorn calculus present involving the mid to upper pole of the right kidney. There is again a cyst involving the lower pole of the right kidney. There has been resolution of previously identified right subcapsular hematoma. The left kidney is within normal limits. There is no left renal calculus or evidence for hydronephrosis bilaterally. Bowel: The bowel loops are normally placed within the abdomen and pelvis without evidence for dilatation or obstruction. There is no evidence for mass lesion. There are no inflammatory changes present. There is no evidence for free air. Bladder: There is no evidence for focal bladder wall thickening, calculus or diverticulum. : There is no evidence for pelvic mass or adenopathy. Vasculature: There is no evidence for focal aneurysmal dilatation of the abdominal aorta. Atherosclerotic calcification is present. Osseous structures: There is no acute osseous pathology. Extensive degenerative changes are seen within the spine. IMPRESSION: 1. Large staghorn calculus of the mid to upper pole of the right kidney. 2. Otherwise, no acute intra-abdominal or pelvic abnormality on these limited noncontrast images. 3. Additional nonacute findings are delineated above. ACT 112: Negative or not required by law. Electronically signed by: Kiel Maher M.D. 08/30/2021 5:05 PM Chest X-Ray 08/30/21 15:39 XR chest 1V portable CLINICAL HISTORY: vomiting. 10/30/2019 COMPARISON STUDY: No previous studies for comparison. TECHNIQUE: 1 view of the chest FINDINGS: Single frontal view of the chest demonstrates the cardiomediastinal silhouette to be within normal limits. The lungs are clear of alveolar opacities. There is no evidence for pleural effusion. There is no evidence for vascular congestion. There is no acute osseous pathology. IMPRESSION: 1. No acute cardiopulmonary disease. ACT 112: Negative or not required by law. Electronically signed by: Kiel Maher M.D. 08/30/2021 5:20 PM Retrograde Pyelogram 08/31/21 00:00 FL retrograde includes kub CLINICAL HISTORY: Right ureteral stent placement. COMPARISON STUDY: None. FLUOROSCOPY TIME: 2 minutes and 20 seconds.. FINDINGS: 5 fluoroscopic spot images demonstrate retrograde opacification of the right renal collecting system followed by placement of a right ureteral stent. IMPRESSION: Fluoroscopic assistance provided for right ureteral stent placement which appears in good position. ACT 112: Negative or not required by law. Electronically signed by: Nathan Bonilla M.D. 08/31/2021 1:35 PM Hospital Course (1) Sepsis secondary to UTI: (2) Staghorn calculus: (3) ALONA (acute kidney injury): (4) Hyponatremia: Sepsis with complicated UTI due to Proteus mirabilis in setting of staghorn calculi- - Met sepsis criteria with fever, leucocytosis and tachycardia. - Sepsis resolved. Blood clx negative. WBC normal now. Afebrile now. - Right renal pelvis urine 08/31 growing proteus mirabilis- pansensitive but patient has multiple ABx allergies- tolerating Pcn so far - S/p zosyn -> iv unasyn- >iv ampicillin per urine clx results. - Seen by ID- recommended amoxicillin 500 mg q8hr at discharge to complete 14-28 day course (usually 14 day given the stones but this can be extended to as long as a month if lithotripsy is planned in that time per ID). This was explained to the patient in detail at bedside as well as in discharge instruction- given the uncertainty of the stone intervention. 4 week supply of amoxicillin was given - Given the interaction between amoxicillin and MTX with potentiality of toxic MTX level, recommended holding MTX while on amoxicillin unless cleared by his PCP or rheumatology. Right staghorn calculi, right duplicated ureter - s/p Cystoscopy with Right Retrograde Pyelogram, ureteroscopy, dilation, and Right Ureteral Stent Placement x [address] Johanesn 08/31- further management per uro - Uro will follow up as OP for definitive management of stone - Red removed 09/03- No voiding issues ALONA- Resolved. baseline of 1. On presentation 1.95->1.76->1.68->1.82->1.24->0.9->0.9. likely from sepsis. Seen by nephro. F/u with Dr Tobias in 1 week with repeat BMP and and urorisk to be ordered by nephro RN Hyponatremia- Resolved. on admission 128->129->130->135->139->141. Corrected appropriately and stable. Hypokalemia- repleted prior to discharge. On po supplementation. Hypomagnesemia- on oral supplementation Sinus bradycardia- intermittent, asymptomatic, chronic issue and stable. cardio following. Not on AV sam blockers. Had sinus pause x1 of 4.2 s on 08/31 and seen by cardio- no intervention required- no recurrence. HTN- BP now stable. Continue norvasc, lisinopril, torsemide at discharge DM2 with hyperglycemia- well-controlled, a1c 6.2 June 02. continue home insulin- she is thorough with her insulin and states has hypoglycemia rarely. Elevated trop- mild, flat trend. No chest pain, no EKG changes of ischemia. Demand ischemia and in setting of ALONA. Hypothyroid- on synthroid H/o RA on plaquenil, prednisone, folic acid. Recommended holding MTX while on antibiotic given interaction with amoxicillin- F/u with rheum/PCP H/o PAF- currently NSR. Not on anticoagulation per records Legal blindness Moderate (TTE 2020) Hepatocellular carcinoma status post embolization, shrinking tumor as of last outpatient report May 2021 She is comfortable and stable for discharge. Seen by PT and CM. No discharge needs identified. She did not want me to call her to give an update. Total Time Total Time Spent Total Time Spent (In Minutes): 45 Discharge Plan Discharge Items Patient Disposition: Home - Self-Care Reason For Visit: HYPONATREMIA,COMP UTI Discharge Diagnosis: Sepsis due to complicated UTI in setting of staghorn calculus, Hyponatremia, ALONA, sinus bradycardia Activity: Resume your previous activity Non-emergency contact: Primary Care Provider Call non-emergency contact if: you have any medication questions, your symptoms worsen, your pain is not controlled and you have a fever Follow-up/Referrals: [facility] [Other] ([facility] will call you with an appointment. Please call [phone] if you have any questions.) David Umanzor MD [Primary Care Provider] - (Date & Time 09/10/2021 3:00 PM Provider David Umanzor MD [facility] ) Diet: Carb Consistent or DM2 Addtl Attending Provider Instructions: Continue the antibiotic amoxicillin 1 tab every 8 hours at least for next 2 weeks ( upto 4 weeks if there is plan for definitive stone treatment per urology in that time frame) Recommend holding your methotrexate while on the antibiotic as the antibiotic can increase methotrexate levels in blood leading to toxicity. Talk to your family doctor or rheumatology regarding when to resume methotrexate. Follow up with urology for definitive stone management Follow up with kidney doctor with repeat blood work (BMP) in 1weeks and urorisk Pending Studies at Discharge: No Stand-Alone Forms: My [facility] [employer], Smoking Cessation Medications and DC Order Prescriptions: New amoxicillin 500 mg tablet 500 mg PO Q8H Qty: 84 RF: 0 Continued (DME) insulin syringe-needle U-100 1 mL 31 gauge x 5/16 syringe See Rx Instructions ml .ROUTE .MEDSUPPLY Qty: 10 RF: 0 lisinopril 5 mg tablet 5 mg PO QAM RF: 0 atorvastatin 40 mg Tablet 40 mg PO QAM RF: 0 ascorbic acid (vitamin C) 1,000 mg Tablet 1,000 g PO QAM RF: 0 albuterol sulfate 2.5 mg /3 mL (0.083 %) Solution For Nebulization 2.5 mg INHALATION Q4 PRN (Reason: Wheezing) RF: 0 gabapentin 400 mg Capsule 400 mg PO TID RF: 0 prednisone 5 mg Tablet 5 mg PO QAM RF: 0 Novolin 70/30 U-100 Insulin 100 unit/mL (70-30) Suspension 68 unit SUBCUT BID RF: 0 torsemide 10 mg Tablet 10 mg PO QAM RF: 0 lorazepam 0.5 mg Tablet 0.5 mg PO TID PRN (Reason: Anxiety) RF: 0 meclizine 25 mg Tablet 25 mg PO TID PRN (Reason: Dizziness) RF: 0 erythromycin 5 mg/gram (0.5 %) Ointment 1 applic OPL QID RF: 0 levothyroxine 125 mcg Tablet 125 mcg PO DAILYBB RF: 0 Novolin R Regular U-100 Insuln 100 unit/mL Solution 1 sliding scale dose SUBCUT UD RF: 0 nitroglycerin 0.4 mg Tablet, Sublingual 0.4 mg sublingual UD PRN (Reason: Chest Pain) RF: 0 aspirin [Aspirin Childrens] 81 mg Tablet,Chewable 162 mg PO HS RF: 0 folic acid 1 mg Tablet 1 mg PO QAM RF: 0 hydroxychloroquine [Plaquenil] 200 mg Tablet 400 mg PO HS RF: 0 albuterol sulfate [ProAir HFA] 90 mcg/actuation Hfa Aerosol Inhaler 2 puff INHALATION QID RF: 0 fluticasone propionate [Flonase Allergy Relief] 50 mcg/actuation [place],Suspension 2 spray INTRANASAL QAM RF: 0 multivitamin with iron Tablet 1 tab PO QAM RF: 0 omeprazole 20 mg Tablet,Delayed Release (Dr/Ec) 20 mg PO QAM RF: 0 Biotene Moisturizing Mouth [place],Non-Aerosol 1 spray MUCOUS MEMBRANE QID RF: 0 Creon 24,000-76,000 -120,000 unit Capsule,Delayed Release(Dr/Ec) 1 cap PO .WITH MEALS & SNACKS RF: 0 latanoprost (PF) 0.005 % Drops 1 drp OPB HS RF: 0 brimonidine 0.2 % drops 1 drp OPL BID RF: 0 tizanidine 2 mg tablet 2 mg PO Q6 PRN (Reason: Muscle Spasm) RF: 0 cyanocobalamin (vitamin B-12) [Vitamin B-12] 1,000 mcg Tablet 1,500 mcg PO QPM RF: 0 bacitracin-polymyxin B [Polycin] 500-10,000 unit/gram Ointment 3.5 g OPR TID RF: 0 cholecalciferol (vitamin D3) [Vitamin D3] 125 mcg (5,000 unit) Tablet 50,000 unit PO WK RF: 0 hydrocodone-acetaminophen 5-325 mg Tablet 1 tab PO Q6 PRN (Reason: Pain,mild) RF: 0 melatonin 5 mg Tablet 5 mg PO HS RF: 0 Rhopressa 0.02 % drops 1 drp OPL HS RF: 0 betaxolol 0.5 % drops 1 drp OPL BID RF: 0 potassium chloride 20 mEq tablet,ER particles/crystals 20 meq PO QAM RF: 0 magnesium oxide 400 mg (241.3 mg magnesium) tablet 400 mg PO 3XWK RF: 0 Probiotic Daily 1 cap PO DAILY RF: 0 methotrexate sodium 2.5 mg Tablet 15 mg PO WK Qty: 0 RF: 0 Discharge Orders: Discharge Order (Routine); Ordered 09/04/21 Ordered By: Cm Chaudhary Admission Data Admit Date/Time: 08/30/21 20:41 Attending Provider: Cm Chaudhary Admit Provider: Tomer Lorenz Primary Care Provider: David Umanzor Other Providers: Tomer Lorenz ; Sarath Retana ; Manny Bennett ; Bhanu Tyler ; Fozia Rider ; Ernie Johansen ; Iliana Sharp ; Melinda Mantilla ; Marija Segal ; Alcon Riggs ; Eduardo Marquez ; Bernadine Padilla ; Adele Segal ; Dago Nelson ; Thony Hoyt ; Luz Tobias ; Irvin Hadley ; Karla Ho ; Tim Klein ; Betty Marin ; Trey Slater ; Man Astudillo ; Marcos Sandoval I. ; Wilver Salmon II ; Ana Phillips ; Wood Chacko ; Piyush Salgado
== END 2021-09-04 14:50 | disposition home or self-care (01) | DRG 854 ==
LOC: ED 15:06 → 2S 20:41 → 2N 09-03 21:09

== ENCOUNTER 2022-11-05 13:23 | Inpatient (IN) ==
--- NOTE | 2022-11-05 13:32 | Emergency Department Note ---
Impression & Plan Hypervolemia, Congestive heart failure, CKD (chronic kidney disease) ED Provider Note NAME: LEON MCKEON AGE: 72 SEX: F ARRIVES VIA: Ambulance INFORMANT: Patient ED PROVIDER(S): Andrew Maciel MD CHIEF COMPLAINT: Shortness of breath, referred. PLAN: Disposition: Admit MEDICAL DECISION MAKING: The patient is a 72-year-old woman with a past medical history of CKD, hypertension, type 2 diabetes, hypothyroidism, CHF/CM, CAD, morbid obesity polyneuropathy, hepatocellular carcinoma, open-angle glaucoma/blind who presents to the emergency department via EMS for evaluation of worsening shortness of breath and fluid retention over the past several weeks where home health evaluate the patient today and were concerned for patient's edema and weeping bilateral lower extremities. Patient was noted to be in mild respiratory distress and was placed on CPAP by EMS with O2 saturation 93% improving to 98%. The patient also received 2 doses of sublingual nitro prior to arrival. Patient denies any cough, fevers, GI or symptoms. The patient reports she does follow with the wound clinic for her bilateral lower extremity swelling and chronic lower extremity wounds. She reports she contacted her cardiology office and was referred to the emergency department. On arrival the patient is mildly dyspneic but no acute distress, afebrile respiratory rate in the mid 20s and vital signs otherwise stable. O2 saturation 95% on room air. The patient has diminished breath sounds with underlying rales of bilateral lower lung tineo. Mildly dyspneic without significant increased work of breathing at this time. Anasarca is present. She has 2+ bilateral lowe r extremity pitting edema with serous weeping and venous stasis dermatitis/erythema bilaterally. EKG demonstrates atrial fibrillation with frequent ventricular paced complexes without overt acute ischemia. Chest x-ray with venous congestion consistent with the patient's hypervolemia. WBC within normal limits. Lymphopenia of 0.3, decreased from prior. Platelets 125K newly decreased and nonspecific. Creatinine 1.4 Increased from recent though within prior range of values.4 electrolytes without significant abnormality. LFTs with total bili 1.6 however AST and ALT are normal. High-sensitivity troponin 17.5, nonspecific. BNP 900 without prior values for comparison. Lipase not elevated. TSH within normal limits. For completeness given the patient's thrombocytopenia and lymphopenia tickborne illness testing was performed and the patient denies any known tick bites. She does report she has a dog but has not found ticks on the dog. Anaplasma Babesia smear were negative with DNA testing pending. Lyme screen was negative. Treatment initiated with IV Lasix. Patient agrees with plan for admission for further management. Case was discussed with Krupa Germain, with [facility] Webb who will evaluate the patient for admission. Triage Nursing notes reviewed and agree them. Prior/outside medical records reviewed Vital Signs: reviewed Differential diagnosis: Reactive airway disease, pneumonia, pneumothorax, COPD, CHF, infections, cardiac ischemia, pulmonary embolism, musculoskeletal, gastrointestinal, as well as other pathologies. ER treatment provided: See below. Diagnostics interpreted by me: ECG: Atrial fibrillation with frequent ventricular paced complexes, 78 bpm, left anterior fascicular block, right bundle branch block, no overt ST elevation or depression Cardiac Monitoring: An order for continuous cardiac monitoring was placed and demonstrated Atrial fibrillation with frequent ventricular paced complexes, 78 bpm Laboratory studies: See below Imaging studies: See below Consultation(s): Krupa Germain, with Krupa Webb HPI: The patient is a 72-year-old woman with a past medical history of CKD, hypertension, type 2 diabetes, hypothyroidism, CHF/CM, CAD, morbid obesity polyneuropathy, hepatocellular carcinoma, open-angle glaucoma/blind who presents to the emergency department via EMS for evaluation of worsening shortness of breath and fluid retention over the past several weeks where home health evaluate the patient today and were concerned for patient's edema and weeping bilateral lower extremities. Patient was noted to be in mild respiratory distress and was placed on CPAP by EMS with O2 saturation 93% improving to 98%. The patient also received 2 doses of sublingual nitro prior to arrival. Patient denies any cough, fevers, GI or symptoms. The patient reports she does follow with the wound clinic for her bilateral lower extremity swelling and chronic lower extremity wounds. She reports she contacted her cardiology office and was referred to the emergency department. ROS: See above HPI for pertinent positives & negatives. A total of 10 systems reviewed and were otherwise negative. VITALS:See Below PHYSICAL EXAMINATION: GENERAL: Awake, alert, chronically ill-appearing, in no distress, BMI 50.4. HENT: Normocephalic, atraumatic. Oropharynx unremarkable. NECK: Supple. No nuchal rigidity. FROM. No JVD. RESPIRATORY: Diminished breath sounds with underlying rales of bilateral lower lung tineo. Mildly dyspneic without significant increased work of breathing at this time. CARDIAC: Regular rate, irregular rhythm. Extremities warm and well perfused. Pulses equal. ABDOMEN: Soft, non-distended. No tenderness to palpation. No rebound or guarding. No masses. RECTAL: Deferred. MUSCULOSKELETAL: Chest examination reveals no tenderness. The back is symmetrical on inspection without obvious abnormality. There is no CVA tenderness to palpation. No joint edema. LOWER EXTREMITIES: Anasarca is present. 2+ bilateral lower extremity pitting edema with serous weeping and venous stasis dermatitis/erythema bilaterally. No significant warmth. No crepitus. NEURO: Normal sensorium. No sensory or motor deficits noted. SKIN: No rash or jaundice noted. Andrew Maciel MD Past Med/Surg History Medical History Anemia Aortic stenosis now suspected to be severe per 08/2022 echo report: CHAPO (I,D) 0.78 cm2 (V,D) 0.84 cm2, mean PG 16 mmHg Blindness Left eye (since ), right eye sown shut "from the inside"; legally blind Carotid stenosis 03/03/22 carotid duplex- REGINE 50-69% stenosis. LICA less than 50% stenosis. Chronic back pain Chronic kidney disease, stage 3 follows with [facility] nephrology Chronic steroid use Congestive heart failure EF 25-29% on 08/2022 echo Diabetes mellitus, type 2 IDDM Diabetic neuropathy Diabetic retinopathy Edema of both legs current issue--has perez wraps around both legs Glaucoma open angle per [facility] records Hernia Current History of atrial fibrillation Single, brief episode (2018) History of blood transfusion 1980s History of cancer 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), s/p surgical intervention History of COVID-19 diagnosed end of 05/2022 via home test--cough, body aches, sore throat, nausea, runny nose--no symptoms now History of gastric ulcer History of sinus problem Reason for nebulizer and inhalers prn Hyperlipidemia Hypertension Hypothyroidism Ischemic cardiomyopathy EF 25-29% 08/2022 echo Kidney stones hx Liver cancer Stage 1, s/p embolization (injection black poppyseed oil twice) under surveillance by [facility] heme/onc Migraine Hx years ago Morbid obesity with BMI of 40.0-44.9, adult Myocardial Infarction Remote silent MN (10+ years ago) On anticoagulant therapy plavix daily Pacemaker Implanted 12/29/21 (ventricular tachycardia) [employer] Pancreatic lesion "10 mm nodule consistent with intraductal papillary mucinous neoplasm" Pancreatitis Mutliple, 15+ episodes (no current issues) Rheumatoid arthritis on Plaquenil, MTX, prednisone 5mg daily Sleep apnea CPAP Transient ischemic attack (TIA) ? TIA vs CVA x2 (20+ years ago), no deficits Surgical History History of appendectomy History of bilateral cataract extraction History of biopsy of bladder showed chronic cystitis History of cardiac cath 03/22/22 > 1 stent drug eluting> [place] > see report in records History of carpal tunnel release of both wrists History of cholecystectomy History of colonoscopy History of cystoscopy --multiple--last 04/15/[address] [facility] Cystoscopy, right stent, right laser lithotripsy (08/11/2020): LMA 4.0 unique, atraumatic, LMA attempt x1 at [facility]. No issues per postop anesthesia progress note. History of detached retina repair x4 on right eye; sx to sew right eye shut in 2017 History of dilatation and curettage x3 History of ERCP History of esophagogastroduodenoscopy (EGD) History of liver biopsy X 2 History of lumbar discectomy History of partial thyroidectomy right side and ismis removed d/t papillary cancer History of tarsorrhaphy BILT--right eye closed shut, left eye partly closed History of tooth extraction all top teeth, most of bottom History of total hysterectomy with bilateral salpingo-oophorectomy (BSO) Nausea and vomiting after administration of anesthetic agent S/P cardiac cath [facility] 03/2022 S/P foot surgery, left "stepped on a needle and had to have it removed" Status post laser lithotripsy of ureteral calculus x3 -> November 2019, December 2019, August 2020 Family History Father Family history of diabetes mellitus Family history of reaction to anesthesia difficulty waking Mother Family history of diabetes mellitus Sister Family history of diabetes mellitus Brother Family history of diabetes mellitus Grandmother (Maternal) Family history of diabetes mellitus Grandmother (Paternal) Family history of diabetes mellitus Son Family history of diabetes mellitus Social History Smoking Status: Never smoker Second Hand Exposure: No; Do You Dip or Chew Tobacco: No; Hx Alcohol Use: No Hx Substance Use: No Preferred Language: Ukrainian Communication Ability: Effective Communication Ability Comment: pt is legally blind Communication Tools: Other Visual Impairment: Severely Limited Hearing Ability: Normal [employer]ention Sergeant Required: No Beliefs That Will Affect Care: None marital status: Current Living Situation: Spouse current occupational status: disabled Feels Safe at Home: Yes Diet: diabetic, low carbohydrate and low salt Diet Comment: low fat caffeine: Yes during the past year weight has: remained stable Do you think of yourself as: straight/heterosexual Gender Identity: Female Assistive Devices: CPAP, Walker and Wheelchair Allergies Allergies Allergy/AdvReac Type Severity Reaction Status Date / Time cephalexin Allergy Severe Anaphylaxis Verified 11/05/22 16:43 Cephalosporins Allergy Severe Anaphylaxis Verified 11/05/22 16:43 Sulfa (Sulfonamide Allergy Intermediate Hives Verified 11/05/22 16:43 Antibiotics) sulfamethoxazole Allergy Intermediate Hives Verified 11/05/22 16:43 [From Bactrim] trimethoprim [From Bactrim] Allergy Intermediate Hives Verified 11/05/22 16:43 butorphanol AdvReac Intermediate Rapid heart Verified 11/05/22 16:43 ciprofloxacin AdvReac Mild Nausea Verified 11/05/22 16:43 Home Meds Home Medications Medication Instructions Recorded Confirmed aspirin 81 mg chewable tablet 81 mg PO [facility] 11/02/18 11/05/22 (Aspirin Childrens) atorvastatin 40 mg tablet 40 mg PO 11/02/18 11/05/22 erythromycin 5 mg/gram (0.5 %) eye 1 applic OPB QID 11/02/18 11/05/22 ointment fluticasone propionate 50 2 spray intranasal [facility] 11/02/18 11/05/22 mcg/actuation nasal spray,suspension (Flonase Allergy Relief) folic acid 1 mg tablet 1 mg PO QAM 11/02/18 11/05/22 gabapentin 400 mg capsule 400 mg PO TID 11/02/18 11/05/22 hydroxychloroquine 200 mg tablet 400 mg PO 11/02/18 11/05/22 (Plaquenil) latanoprost (PF) 0.005 % eye drops 1 drp OPB HS 11/02/18 11/05/22 levothyroxine 125 mcg tablet 125 mcg PO QAM 11/02/18 11/05/22 lorazepam 0.5 mg tablet 0.5 mg PO TID PRN Anxiety 11/02/18 11/05/22 meclizine 25 mg tablet 25 mg PO TID PRN Dizziness 11/02/18 11/05/22 multivitamin with iron 1 tab PO QAM 11/02/18 11/05/22 nitroglycerin 0.4 mg sublingual 0.4 mg sublingual UD PRN Chest Pain 11/02/18 11/05/22 tablet omeprazole 20 mg tablet,delayed 20 mg PO QAM 11/02/18 11/05/22 release prednisone 5 mg tablet 5 mg PO QAM 11/02/18 11/05/22 saliva stimulant comb. no.3 1 spray mucous membrane QID 11/02/18 11/05/22 (Biotene Moisturizing Mouth mucosal spray) torsemide 10 mg tablet 20 mg PO QAM 11/02/18 11/05/22 brimonidine 0.2 % eye drops 1 drp OPL BID 10/20/19 11/05/22 cyanocobalamin (vitamin B-12) 1,500 mcg PO QPM 10/20/19 11/05/22 1,000 mcg tablet (Vitamin B-12) hydrocodone 5 mg-acetaminophen 325 1 tab PO Q6H PRN Pain,mild 03/26/21 11/05/22 mg tablet melatonin 5 mg tablet 5 mg PO HS 03/30/21 11/05/22 Probiotic Daily 1 cap PO QAM 08/30/21 11/05/22 betaxolol 0.5 % eye drops 1 drp OPL AMHS 08/30/21 11/05/22 magnesium oxide 400 mg (241.3 mg 400 mg PO MOWEFR 08/30/21 11/05/22 magnesium) tablet netarsudil 0.02 % eye drops 1 drp OPL HS 08/30/21 11/05/22 (Rhopressa) methotrexate sodium 2.5 mg tablet 10 mg PO .HOLD 02/11/22 11/05/22 clopidogrel 75 mg tablet (Plavix) 75 mg PO QAM 04/08/22 11/05/22 insulin aspart U-100 100 unit/mL See Rx Instructions .Route .COMPLEX 08/19/22 11/05/22 (3 mL) subcutaneous pen (Novolog FlexPen U-100 Insulin aspart) insulin glargine 100 unit/mL 40 unit subcut DAILY 08/19/22 11/05/22 subcutaneous solution (Lantus U-100 Insulin) przhbo-[id number] 1 cap PO QID 09/02/22 11/05/22 24,000-76,000-120,000 unit capsule,delayed rel (Creon) acetaminophen 500 mg tablet 500 mg PO HS 11/05/22 11/05/22 (Tylenol Extra Strength) ammonium lactate 12 % topical cream 1 applic topical HS PRN Afected 11/05/22 11/05/22 area ascorbic acid (vitamin C) 500 mg 500 mg PO QAM 11/05/22 11/05/22 tablet (Vitamin C) iron,carbonyl 65 mg-vitamin C 125 1 tab PO DAILY 11/05/22 11/05/22 mg tablet,delayed release (Vitron-C) metoprolol succinate 50 mg 25 mg PO BID 11/05/22 11/05/22 tablet,extended release 24 hr nystatin 100,000 unit/gram topical 1 applic topical TID PRN 11/05/22 11/05/22 powder .irritation potassium chloride 10 mEq 10 meq PO DAILY 11/05/22 11/05/22 tablet,extended release potassium citrate 10 mEq (1,080 15 meq PO BID 11/05/22 11/05/22 mg) tablet,extended release spironolactone 25 mg tablet 12.5 mg PO QAM 11/05/22 11/05/22 tizanidine 2 mg tablet 2 mg PO Q6 PRN Muscle Spasm 11/05/22 11/05/22 torsemide 10 mg tablet 10 mg PO .Q AFTERNOON 11/05/22 11/05/22 Previous Rx's Medication Instructions Recorded tamsulosin 0.4 mg capsule 0.4 mg PO HS #30 caps 08/02/22 Results & Data (ED) Vital Signs Vital Signs - 24 hr 11/05/22 13:32 11/05/22 13:32 11/05/22 13:32 Temperature 36.8 C Temperature Source Oral Pulse Rate 80 Pulse Rate from SpO2 Sensor Pulse Rhythm Irregular Pulse Strength Normal Respiratory Rate 24 Respiratory Effort / Characteristics Spontaneous Labored Spontaneous Labored Respiratory Depth Normal Respiratory Pattern Regular Tachypnea Blood Pressure 107/75 Blood Pressure Mean 85 Blood Pressure Position Lying Pulse Oximetry 95 96 Oxygen Delivery Method Room Air Room Air Room Air Sepsis Recent Fever Within 48 Hours No Sepsis New/Unexplained Change in Mental Status N/A Sepsis Action Taken by Nursing No Action Required 11/05/22 13:37 11/05/22 14:35 11/05/22 14:00 Temperature Temperature Source Pulse Rate 83 88 76 Pulse Rate from SpO2 Sensor 78 Pulse Rhythm Irregular Pulse Strength Respiratory Rate 16 20 Respiratory Effort / Characteristics Respiratory Depth Respiratory Pattern Blood Pressure Blood Pressure Mean Blood Pressure Position Pulse Oximetry 99 93 Oxygen Delivery Method Room Air Room Air Sepsis Recent Fever Within 48 Hours Sepsis New/Unexplained Change in Mental Status Sepsis Action Taken by Nursing 11/05/22 15:00 11/05/22 15:31 11/05/22 16:10 Temperature Temperature Source Pulse Rate 78 78 77 Pulse Rate from SpO2 Sensor 86 77 73 Pulse Rhythm Pulse Strength Respiratory Rate 19 21 19 Respiratory Effort / Characteristics Respiratory Depth Respiratory Pattern Blood Pressure 138/73 111/65 104/54 L Blood Pressure Mean 94 80 70 Blood Pressure Position Pulse Oximetry 93 94 99 Oxygen Delivery Method Room Air Room Air Room Air Sepsis Recent Fever Within 48 Hours Sepsis New/Unexplained Change in Mental Status Sepsis Action Taken by Nursing 11/05/22 16:30 11/05/22 17:00 Temperature Temperature Source Pulse Rate 71 74 Pulse Rate from SpO2 Sensor 71 75 Pulse Rhythm Pulse Strength Respiratory Rate 14 17 Respiratory Effort / Characteristics Respiratory Depth Respiratory Pattern Blood Pressure 101/60 110/64 Blood Pressure Mean 73 79 Blood Pressure Position Pulse Oximetry 92 97 Oxygen Delivery Method Room Air Room Air Sepsis Recent Fever Within 48 Hours Sepsis New/Unexplained Change in Mental Status Sepsis Action Taken by Nursing Laboratory Data Attestation: I reviewed the patient's lab results. 11/05/22 13:45 11/05/22 13:45 Lab Results 11/05/22 11/05/22 11/05/22 Range/Units 13:45 13:45 13:45 WBC 8.71 (4.8-10.8) K/ul RBC 4.13 L (4.20-5.40) M/uL Hgb 11.6 L (12.0-16.0) g/dl Hct 36.3 L (37.0-47.0) % MCV 87.9 (80.0-100.0) fL MCH 28.1 (25.0-34.0) pg MCHC 32.0 (32.0-36.0) g/dL RDW Std Deviation 54.1 H (36.4-46.3) fL RDW Coeff of Juani 17.2 H (11.5-14.5) % Plt Count 125 L (130-400) K/uL MPV 11.0 (9.4-12.4) fL Immature Gran % (Auto) 0.3 % Neut % (Auto) 87.0 % Lymph % (Auto) 3.4 % Dewitt % (Auto) 8.5 % Eos % (Auto) 0.5 % Baso % (Auto) 0.3 % Neut # (Auto) 7.57 H (1.40-6.50) K/uL Lymph # (Auto) 0.30 L (1.2-3.4) K/uL Dewitt # (Auto) 0.74 H (0.11-0.59) K/uL Eos # (Auto) 0.04 (0-0.50) K/uL Baso # (Auto) 0.03 (0-0.2) K/uL Immature Gran # (Auto) 0.03 (0.01-0.20) K/uL PT (9.0-12.0) Seconds INR (0.9-1.1) Sodium 136 (136-145) mmol/L Potassium 4.3 (3.5-5.1) mmol/L Chloride 99 (98-107) mmol/L Carbon Dioxide 30 (21-32) mmol/L Anion Gap 7 (3-11) BUN 32 H (6-23) mg/dl Creatinine 1.43 H (0.6-1.2) mg/dl Est Cr Clr Drug Dosing 47.5 ml/min Est GFR ( Amer) 42.3 ml/min Est GFR (Non-Af Amer) 36.5 ml/min BUN/Creatinine Ratio 22.4 H (10-20) Glucose 139 H (70-99(Fasting)) mg/dl Calcium 8.9 (8.6-10.3) mg/dl Phosphorus 3.7 (2.5-4.9) mg/dl Magnesium 1.9 (1.7-2.4) mg/dl Total Bilirubin 1.6 H (0.2-1.0) mg/dl AST 24 (13-39) U/L ALT 16 (7-52) U/L Alkaline Phosphatase 140 H (34-104) U/L Troponin I High Sens 17.5 H (0-14) pg/ml B-Natriuretic Peptide 918 H (0-100) pg/ml Total Protein 5.6 L (6.0-8.3) gm/dl Albumin 3.3 L (3.4-5.0) gm/dl Globulin 2.3 L (2.5-4.0) gm/dl Albumin/Globulin Ratio 1.4 (0.9-2) Lipase 13 (11-82) U/L TSH (0.300-4.500) uIu/ml Anaplasma Smear Babesia Smear Lyme Disease IgG Ab (Negative) Lyme Disease IgM Ab (Negative) 11/05/22 11/05/22 11/05/22 Range/Units 13:45 13:45 16:01 WBC (4.8-10.8) K/ul RBC (4.20-5.40) M/uL Hgb (12.0-16.0) g/dl Hct (37.0-47.0) % MCV (80.0-100.0) fL MCH (25.0-34.0) pg MCHC (32.0-36.0) g/dL RDW Std Deviation (36.4-46.3) fL RDW Coeff of Juani (11.5-14.5) % Plt Count (130-400) K/uL MPV (9.4-12.4) fL Immature Gran % (Auto) % Neut % (Auto) % Lymph % (Auto) % Dewitt % (Auto) % Eos % (Auto) % Baso % (Auto) % Neut # (Auto) (1.40-6.50) K/uL Lymph # (Auto) (1.2-3.4) K/uL Dewitt # (Auto) (0.11-0.59) K/uL Eos # (Auto) (0-0.50) K/uL Baso # (Auto) (0-0.2) K/uL Immature Gran # (Auto) (0.01-0.20) K/uL PT 13.2 H (9.0-12.0) Seconds INR 1.2 H (0.9-1.1) Sodium (136-145) mmol/L Potassium (3.5-5.1) mmol/L Chloride (98-107) mmol/L Carbon Dioxide (21-32) mmol/L Anion Gap (3-11) BUN (6-23) mg/dl Creatinine (0.6-1.2) mg/dl Est Cr Clr Drug Dosing ml/min Est GFR ( Amer) ml/min Est GFR (Non-Af Amer) ml/min BUN/Creatinine Ratio (10-20) Glucose (70-99(Fasting)) mg/dl Calcium (8.6-10.3) mg/dl Phosphorus (2.5-4.9) mg/dl Magnesium (1.7-2.4) mg/dl Total Bilirubin (0.2-1.0) mg/dl AST (13-39) U/L ALT (7-52) U/L Alkaline Phosphatase (34-104) U/L Troponin I High Sens (0-14) pg/ml B-Natriuretic Peptide (0-100) pg/ml Total Protein (6.0-8.3) gm/dl Albumin (3.4-5.0) gm/dl Globulin (2.5-4.0) gm/dl Albumin/Globulin Ratio (0.9-2) Lipase (11-82) U/L TSH 3.156 (0.300-4.500) uIu/ml Anaplasma Smear See Comment Babesia Smear See Comment Lyme Disease IgG Ab (Negative) Lyme Disease IgM Ab (Negative) 11/05/22 Range/Units 16:01 WBC (4.8-10.8) K/ul RBC (4.20-5.40) M/uL Hgb (12.0-16.0) g/dl Hct (37.0-47.0) % MCV (80.0-100.0) fL MCH (25.0-34.0) pg MCHC (32.0-36.0) g/dL RDW Std Deviation (36.4-46.3) fL RDW Coeff of Juani (11.5-14.5) % Plt Count (130-400) K/uL MPV (9.4-12.4) fL Immature Gran % (Auto) % Neut % (Auto) % Lymph % (Auto) % Dewitt % (Auto) % Eos % (Auto) % Baso % (Auto) % Neut # (Auto) (1.40-6.50) K/uL Lymph # (Auto) (1.2-3.4) K/uL Dewitt # (Auto) (0.11-0.59) K/uL Eos # (Auto) (0-0.50) K/uL Baso # (Auto) (0-0.2) K/uL Immature Gran # (Auto) (0.01-0.20) K/uL PT (9.0-12.0) Seconds INR (0.9-1.1) Sodium (136-145) mmol/L Potassium (3.5-5.1) mmol/L Chloride (98-107) mmol/L Carbon Dioxide (21-32) mmol/L Anion Gap (3-11) BUN (6-23) mg/dl Creatinine (0.6-1.2) mg/dl Est Cr Clr Drug Dosing ml/min Est GFR ( Amer) ml/min Est GFR (Non-Af Amer) ml/min BUN/Creatinine Ratio (10-20) Glucose (70-99(Fasting)) mg/dl Calcium (8.6-10.3) mg/dl Phosphorus (2.5-4.9) mg/dl Magnesium (1.7-2.4) mg/dl Total Bilirubin (0.2-1.0) mg/dl AST (13-39) U/L ALT (7-52) U/L Alkaline Phosphatase (34-104) U/L Troponin I High Sens (0-14) pg/ml B-Natriuretic Peptide (0-100) pg/ml Total Protein (6.0-8.3) gm/dl Albumin (3.4-5.0) gm/dl Globulin (2.5-4.0) gm/dl Albumin/Globulin Ratio (0.9-2) Lipase (11-82) U/L TSH (0.300-4.500) uIu/ml Anaplasma Smear Babesia Smear Lyme Disease IgG Ab Negative (Negative) Lyme Disease IgM Ab Negative (Negative) Administered Medications Discontinued Medications Furosemide (Furosemide 40 Mg/4 Ml Vial) 40 mg IV NOW STA Stop: 11/05/22 15:31 Last Admin: 11/05/22 15:42 Dose: 40 mg Documented By: KMO Imaging Data Radiologist's Impression: Chest X-Ray 11/05/22 13:49 XR chest 1V portable HISTORY: 72 years-old Female Chest pain, nonspecific COMPARISON: 08/28/2021 TECHNIQUE: AP view of the chest FINDINGS: Cardiac silhouette is enlarged. Left subclavian pacer. Pulmonary vascular congestion. No pneumothorax, large pleural effusion or lumbar space consolidation. Bones appear grossly intact. Unchanged blunting of the costophrenic angles. IMPRESSION: Cardiomegaly with pulmonary vascular congestion. ACT 112: Negative or not required by law. The above report was generated using voice recognition software. It may contain grammatical, syntax or spelling errors. Electronically signed by: Luis Enrique Yarbrough M.D. 11/05/2022 2:18 PM Discharge Plan Visit Data Chief Complaint: Shortness of Breath/Dyspnea ED Provider: Andrew Maciel Discharge Problem: Hypervolemia, Congestive heart failure, CKD (chronic kidney disease) Patient Disposition: Admitted As Inpatient Discharge Instructions Interventions: ED Discharge Assessment Last Done: 11/05/22 18:27
[2022-11-05 14:14] LABS: Basophils # (auto) 0.03 K/uL (0-0.2); Basophils % (auto) 0.3 %; Eosinophils # (auto) 0.04 K/uL (0-0.50); Eosinophils % (auto) 0.5 %; Hematocrit (blood only) 36.3 % (37.0-47.0); Hemoglobin 11.6 g/dl (12.0-16.0); Immature Granulocytes # (auto) 0.03 K/uL (0.01-0.20); Immature Granulocytes % (auto) 0.3 %; Lymphocytes % (auto) 3.4 %; Mean Corpuscular Hemoglobin 28.1 pg (25.0-34.0); Mean Corpuscular Volume 87.9 fL (80.0-100.0); Monocytes # (auto) 0.74 K/uL (0.11-0.59); Monocytes % (auto) 8.5 %; Neutrophils # (auto) 7.57 K/uL (1.40-6.50); Platelet Count 125 K/uL (130-400); RDW Coefficient of Variation 17.2 % (11.5-14.5); RDW Standard Deviation 54.1 fL (36.4-46.3); Red Blood Count 4.13 M/uL (4.20-5.40); White Blood Count 8.71 K/ul (4.8-10.8)
--- NOTE | 2022-11-05 14:19 | XRay Report ---
XR chest 1V portable HISTORY: 72 years-old Female Chest pain, nonspecific COMPARISON: 08/28/2021 TECHNIQUE: AP view of the chest FINDINGS: Cardiac silhouette is enlarged. Left subclavian pacer. Pulmonary vascular congestion. No pneumothorax , large pleural effusion or lumbar space consolidation. Bones appear grossly intact. Unchanged blunti ng of the costophrenic angles. IMPRESSION: Cardiomegaly with pulmonary vascular congestion. ACT 112: Negative or not required by law. The above report was generated using voice recognition software. It may contain grammatical, syntax o r spelling errors. Electronically signed by: Luis Enrique Yarbrough M.D. 11/05/2022 2:18 PM
[2022-11-05 14:28] LABS: Albumin Globulin Ratio 1.4 (0.9-2); Albumin Level 3.3 gm/dl (3.4-5.0); BUN Creatinine Ratio 22.4 (10-20); Bilirubin,Total 1.6 mg/dl (0.2-1.0); Calcium 8.9 mg/dl (8.6-10.3); Creatinine Clr Calc Pharmacy 47.5 ml/min; Est GFR (African American) 42.3 ml/min; Est GFR (Non-African American) 36.5 ml/min; Globulin 2.3 gm/dl (2.5-4.0); Magnesium 1.9 mg/dl (1.7-2.4); Phosphorus 3.7 mg/dl (2.5-4.9); Potassium 4.3 mmol/L (3.5-5.1); Total Protein 5.6 gm/dl (6.0-8.3)
[2022-11-05 14:33] LABS: Troponin I High Sensitivity 17.5 pg/ml (0-14)
[2022-11-05 14:45] LABS: INR 1.2 (0.9-1.1); Prothrombin Time 13.2 Seconds (9.0-12.0)
[2022-11-05] MEDS ORDERED: FUROSEMIDE 40 MG/4 ML VIAL IV STA (15:30)
--- NOTE | 2022-11-05 15:56 | Electrocardiogram Report ---
Test Reason : Blood Pressure : / mmHG Vent. Rate : 078 BPM Atrial Rate : 000 BPM P-R Int : 000 ms QRS Dur : 142 ms QT Int : 416 ms P-R-T Axes : 000 -53 127 degrees QTc Int : 474 ms Atrial fibrillation with frequent ventricular-paced complexes Left anterior fascicular block Right bundle branch block Possible Old Anteroseptal infarct Diffuse Minor Nonspecific T wave abnormality Abnormal ECG When compared with ECG of 30-AUG-2021 15:32, Electronic ventricular pacemaker has replaced Sinus rhythm Confirmed by Rao Peña ([id number]) on 11/05/2022 3:56:37 PM Referred By: Confirmed By:Rao Peña
[2022-11-05 17:14] LABS: Lyme Ab IgG w/WB Rflx Negative (Negative); Lyme Ab IgM w/WB Rflx Negative (Negative)
[2022-11-05] MEDS ORDERED: CARBOHYDRATES FOR HYPOGLYCEMIA PO PRN (17:39)
[2022-11-05] MEDS ORDERED: GLUCOSE 40% GEL 15 GM TUBE PO PRN (17:39)
[2022-11-05] MEDS ORDERED: GLUCOSE 10 TAB/TUBE PO PRN (17:39)
[2022-11-05] MEDS ORDERED: DEXTROSE 50% 50 ML SYRINGE IV PRN (17:39)
[2022-11-05] MEDS ORDERED: GLUCAGON FOR INJ 1 MG VIAL SQ PRN (17:39)
--- NOTE | 2022-11-05 17:49 | History & Physical Report ---
Date of Service November 05, 2022 Assessment & Plan (1) Acute on chronic combined systolic (congestive) and diastolic (congestive) heart failure: Plan: This is a 72 y/o with a complicated medical history including combined systolic and diastolic heart failure, CAD s/p PCI with WALTER, aortic stenosis (suspected severe), tachy-wilfrido syndrome s/p PPM in 2021, persistent afib since 07/01, bilateral carotid bruits, insulin-requiring DM, blindness, rheumatoid arthritis, chronic prednisone use, LAQUITA on CPAP, CKD3a, hypothyroidism, HTN, open-angle glaucoma, and recurrent liver cancer s/p recent placement of radiation beads. She presents to the ED today with progressive fluid overload even with increased outpatient diuresis. She has chronic LE wounds for which she is following with wound care but she has been told that until the fluid overload is improved, her wounds will be unlikely to heal. - Admit to PCU for IV diuresis - Start with furosemide 40 mg IV daily - responded well to 40 mg received in the ED so will continue this dose for now - Is and Os, daily weights - Follow electrolytes with diuresis - will continue same potassium and mag doses for now - Repeat troponin - mildly elevated at baseline, no evidence of ischemic changes on initial EKG - Consult cardiology for assistance with diuresis - Red catheter - Currently not requiring O2 - continue to monitor (2) Tinea corporis: Plan: Rash on left knee seems most consistent with tinea corporis - Start clotrimazole 1% cream BID for a 14 days course (3) Chronic kidney disease, stage 3: (4) Diabetes mellitus, type 2: Plan: Basal and sliding scale insulin Diabetic diet (5) Hypothyroidism: (6) Sleep apnea: Plan: CPAP ordered - settings from pt's outpatient records (7) Glaucoma: (8) Rheumatoid arthritis: Plan: Methotrexate currently on hold due to leg wounds - will continue prednisone and plaquenil (9) Iron deficiency anemia: (10) Venous stasis ulcers: Plan: Wound care consult (11) Hepatocellular carcinoma: Plan Continue other home medications as appropriate Pt seen and reviewed with collaborating physician, Dr. Webb. Plan of care discussed and as outlined above. Code status: Full code but no prolonged heroic measures. Son is her POA DVT Prophylaxis: Sandy Fong PA-C History of Present Illness Chief Complaint: fluid overload Primary Care Provider: David Umanzor MD This is a 72 y/o with a complicated medical history including combined systolic and diastolic heart failure, CAD s/p PCI with WALTER, aortic stenosis (suspected severe), tachy-wilfrido syndrome s/p PPM in 2021, persistent afib since 07/01, bilateral carotid bruits, insulin-requiring DM, blindness, rheumatoid arthritis, chronic prednisone use, LAQUITA on CPAP, CKD3a, hypothyroidism, HTN, open-angle glaucoma, recurrent liver cancer s/p recent placement of radiation beads, and other history as listed below who presents to the ED today with respiratory failure from fluid overload. Pt has a history of combined HFrEF but reports fluid status has been difficult to manage because of her blood pressure dropping with diuresis. She reports being up 40 lbs from baseline weight over the last several months. Specifically, she has noted worsening off the LE edema and subsequent wounds over the last two months. She notes that the wounds on her legs are continually seeping, and when she was seen at wound care they told her that the wounds will not heal until the edema improves. She has also noted progressive PATRICK and SOB at rest at times. She is sleeping in the recliner, but this is not new for her. Her diuretics were last adjust on 10/15/22 when cardiology added spironolactone 12.5 mg daily to the torsemide 20 mg in AM, 10 mg in PM that she was already taking. She has not noticed any significant improvement with this addition. She has occasional palpitations but denies chest pain. She checks her BP regularly at home and has been 90s/50s since the spironolactone was added. Today, when evaluated by EMS, she was noted to have respiratory failure with rales on exam - she was given nitro spray and placed on CPAP with improvement in her respiratory status. Since being in the ED, she has been stable on room air. Allergies Allergy/AdvReac Type Severity Reaction Status Date / Time cephalexin Allergy Severe Anaphylaxis Verified 11/05/22 16:43 Cephalosporins Allergy Severe Anaphylaxis Verified 11/05/22 16:43 Sulfa (Sulfonamide Allergy Intermediate Hives Verified 11/05/22 16:43 Antibiotics) sulfamethoxazole Allergy Intermediate Hives Verified 11/05/22 16:43 [From Bactrim] trimethoprim [From Bactrim] Allergy Intermediate Hives Verified 11/05/22 16:43 butorphanol AdvReac Intermediate Rapid heart Verified 11/05/22 16:43 ciprofloxacin AdvReac Mild Nausea Verified 11/05/22 16:43 Home Medications Medication Instructions Recorded Confirmed Type aspirin 81 mg chewable tablet 81 mg PO QAM 11/02/18 11/05/22 History (Aspirin Childrens) atorvastatin 40 mg tablet 40 mg PO HS 11/02/18 11/05/22 History erythromycin 5 mg/gram (0.5 %) eye 1 applic OPB QID 11/02/18 11/05/22 History ointment fluticasone propionate 50 2 spray intranasal QA 11/02/18 11/05/22 History mcg/actuation nasal spray,suspension (Flonase Allergy Relief) folic acid 1 mg tablet 1 mg PO QAM 11/02/18 11/05/22 History gabapentin 400 mg capsule 400 mg PO TID 11/02/18 11/05/22 History hydroxychloroquine 200 mg tablet 400 mg PO HS 11/02/18 11/05/22 History (Plaquenil) latanoprost (PF) 0.005 % eye drops 1 drp OPB 11/02/18 11/05/22 History levothyroxine 125 mcg tablet 125 mcg PO QAM 11/02/18 11/05/22 History lorazepam 0.5 mg tablet 0.5 mg PO TID PRN Anxiety 11/02/18 11/05/22 History meclizine 25 mg tablet 25 mg PO TID PRN Dizziness 11/02/18 11/05/22 History multivitamin with iron 1 tab PO QAM 11/02/18 11/05/22 History nitroglycerin 0.4 mg sublingual 0.4 mg sublingual UD PRN Chest Pain 11/02/18 11/05/22 History tablet omeprazole 20 mg tablet,delayed 20 mg PO QAM 11/02/18 11/05/22 History release prednisone 5 mg tablet 5 mg PO QAM 11/02/18 11/05/22 History saliva stimulant comb. no.3 1 spray mucous membrane QID 11/02/18 11/05/22 History (Biotene Moisturizing Mouth mucosal spray) torsemide 10 mg tablet 20 mg PO QAM 11/02/18 11/05/22 History brimonidine 0.2 % eye drops 1 drp OPL BID 10/20/19 11/05/22 History cyanocobalamin (vitamin B-12) 1,500 mcg PO QPM 10/20/19 11/05/22 History 1,000 mcg tablet (Vitamin B-12) hydrocodone 5 mg-acetaminophen 325 1 tab PO Q6H PRN Pain,mild 03/26/21 11/05/22 History mg tablet melatonin 5 mg tablet 5 mg PO HS 03/30/21 11/05/22 History Probiotic Daily 1 cap PO QAM 08/30/21 11/05/22 History betaxolol 0.5 % eye drops 1 drp OPL AMHS 08/30/21 11/05/22 History magnesium oxide 400 mg (241.3 mg 400 mg PO MOWEFR 08/30/21 11/05/22 History magnesium) tablet netarsudil 0.02 % eye drops 1 drp OPL HS 08/30/21 11/05/22 History (Rhopressa) methotrexate sodium 2.5 mg tablet 10 mg PO .HOLD 02/11/22 11/05/22 History clopidogrel 75 mg tablet (Plavix) 75 mg PO QAM 04/08/22 11/05/22 History tamsulosin 0.4 mg capsule 0.4 mg PO HS #30 caps 08/02/22 11/05/22 Rx insulin aspart U-100 100 unit/mL See Rx Instructions .Route .COMPLEX 08/19/22 11/05/22 History (3 mL) subcutaneous pen (Novolog FlexPen U-100 Insulin aspart) insulin glargine 100 unit/mL 40 unit subcut DAILY 08/19/22 11/05/22 History subcutaneous solution (Lantus U-100 Insulin) [id number] 1 cap PO QID 09/02/22 11/05/22 History 24,000-76,000-120,000 unit capsule,delayed rel (Creon) acetaminophen 500 mg tablet 500 mg PO HS 11/05/22 11/05/22 History (Tylenol Extra Strength) ammonium lactate 12 % topical cream 1 applic topical HS PRN Afected 11/05/22 11/05/22 History area ascorbic acid (vitamin C) 500 mg 500 mg PO QAM 11/05/22 11/05/22 History tablet (Vitamin C) iron,carbonyl 65 mg-vitamin C 125 1 tab PO DAILY 11/05/22 11/05/22 History mg tablet,delayed release (Vitron-C) metoprolol succinate 50 mg 25 mg PO BID 11/05/22 11/05/22 History tablet,extended release 24 hr nystatin 100,000 unit/gram topical 1 applic topical TID PRN 11/05/22 11/05/22 History powder .irritation potassium chloride 10 mEq 10 meq PO DAILY 11/05/22 11/05/22 History tablet,extended release potassium citrate 10 mEq (1,080 15 meq PO BID 11/05/22 11/05/22 History mg) tablet,extended release spironolactone 25 mg tablet 12.5 mg PO QAM 11/05/22 11/05/22 History tizanidine 2 mg tablet 2 mg PO Q6 PRN Muscle Spasm 11/05/22 11/05/22 History torsemide 10 mg tablet 10 mg PO .Q AFTERNOON 11/05/22 11/05/22 History Past Med/Surg History Medical History Anemia Aortic stenosis now suspected to be severe per 08/2022 echo report: CHAPO (I,D) 0.78 cm2 (V,D) 0.84 cm2, mean PG 16 mmHg Blindness Left eye (since ), right eye sown shut "from the inside"; legally blind Carotid stenosis 03/03/22 carotid duplex- REGINE 50-69% stenosis. LICA less than 50% stenosis. Chronic back pain Chronic kidney disease, stage 3 follows with [facility] nephrology Chronic steroid use Congestive heart failure EF 25-29% on 08/2022 echo Diabetes mellitus, type 2 IDDM Diabetic neuropathy Diabetic retinopathy Edema of both legs current issue--has perez wraps around both legs Glaucoma open angle per [facility] records Hernia Current History of atrial fibrillation Single, brief episode (2018) History of blood transfusion 1980s History of cancer 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), s/p surgical intervention History of COVID-19 diagnosed end of 05/2022 via home test--cough, body aches, sore throat, nausea, runny nose--no symptoms now History of gastric ulcer History of sinus problem Reason for nebulizer and inhalers prn Hyperlipidemia Hypertension Hypothyroidism Ischemic cardiomyopathy EF 25-29% 08/2022 echo Kidney stones hx Liver cancer Stage 1, s/p embolization (injection black poppyseed oil twice) under surveillance by [facility] heme/onc Migraine Hx years ago Morbid obesity with BMI of 40.0-44.9, adult Myocardial Infarction Remote silent CO (10+ years ago) On anticoagulant therapy plavix daily Pacemaker Implanted 12/29/21 (ventricular tachycardia) Med[employer] Pancreatic lesion "10 mm nodule consistent with intraductal papillary mucinous neoplasm" Pancreatitis Mutliple, 15+ episodes (no current issues) Rheumatoid arthritis on Plaquenil, MTX, prednisone 5mg daily Sleep apnea CPAP Transient ischemic attack (TIA) ? TIA vs CVA x2 (20+ years ago), no deficits Surgical History History of appendectomy History of bilateral cataract extraction History of biopsy of bladder showed chronic cystitis History of cardiac cath 03/22/22 > 1 stent drug eluting> Luning > see report in records History of carpal tunnel release of both wrists History of cholecystectomy History of colonoscopy History of cystoscopy --multiple--last 04/15/22 @ [facility], [place] Cystoscopy, right stent, right laser lithotripsy (08/11/2020): LMA 4.0 unique, atraumatic, LMA attempt x1 at [facility], [place]. No issues per postop anesthesia progress note. History of detached retina repair x4 on right eye; sx to sew right eye shut in 2017 History of dilatation and curettage x3 History of ERCP History of esophagogastroduodenoscopy (EGD) History of liver biopsy X 2 History of lumbar discectomy History of partial thyroidectomy right side and ismis removed d/t papillary cancer History of tarsorrhaphy BILT--right eye closed shut, left eye partly closed History of tooth extraction all top teeth, most of bottom History of total hysterectomy with bilateral salpingo-oophorectomy (BSO) Nausea and vomiting after administration of anesthetic agent S/P cardiac cath [facility] 03/2022 S/P foot surgery, left "stepped on a needle and had to have it removed" Status post laser lithotripsy of ureteral calculus x3 -> November 2019, December 2019, August 2020 Family History Father Family history of diabetes mellitus Family history of reaction to anesthesia difficulty waking Mother Family history of diabetes mellitus Sister Family history of diabetes mellitus Brother Family history of diabetes mellitus Grandmother (Maternal) Family history of diabetes mellitus Grandmother (Paternal) Family history of diabetes mellitus Son Family history of diabetes mellitus Social History Smoking Status: Never smoker Second Hand Exposure: No; Do You Dip or Chew Tobacco: No; Hx Alcohol Use: No Hx Substance Use: No Preferred Language: Burundian Communication Ability: Effective Communication Ability Comment: pt is legally blind Communication Tools: Other Visual Impairment: Severely Limited Hearing Ability: Normal Sap Data Architect Required: No Beliefs That Will Affect Care: None marital status: Current Living Situation: Spouse current occupational status: disabled Feels Safe at Home: Yes Diet: diabetic, low carbohydrate and low salt Diet Comment: low fat caffeine: Yes during the past year weight has: remained stable Do you think of yourself as: straight/heterosexual Gender Identity: Female Assistive Devices: CPAP, Denture - Upper, Denture - Lower, Walker and Wheelchair Review of Systems Review of Systems: All systems reviewed & are unremarkable except as noted in HPI & below Constitutional: + fatigue and + weight gain; no fever and no chills Ear, Nose, Mouth, Throat: no nasal congestion and no sore throat Respiratory: + cough (since procedure 10/18 for liver) and + dyspnea on ex ertion Cardiovascular: + dyspnea at rest, + dyspnea on exertion, + orthopnea, + palpitations, + lightheadedness and + edema; no chest pain Gastrointestinal: + bloating and + nausea; no vomiting and no change in bowel habits Genitourinary: + difficulty urinating (some hesitancy since Red in August); no dysuria and no hematuria Musculoskeletal: + back pain Integumentary: + rash and + wounds Neurologic: + generalized weakness; no syncope and no headache(s) Psychiatric: + anxiety (at times) Physical Exam Constitutional: + obese; no acute distress Eyes: no scleral icterus, bilateral eyes with scant discharge secondary to e-mycin ointment Neck: trachea midline Respiratory: no respiratory distress and no labored breathing Auscultation: + diminished lung sounds and + rales (at bases) Cardiovascular: Rate/Rhythm: + irregularly irregular Heart Sounds: + murmur Vessels: radial pulses present 3-4+ bilateral LE edema to upper thighs, +pitting edema in flanks and lower abdomen Gastrointestinal (Abdomen): Inspection/Auscultation: + abdomen distended and normal bowel sounds Percussion/Palpation: + abdomen tender (RUQ) Musculoskeletal: Head/Neck/Chest: normocephalic, head atraumatic and neck supple Skin: stasis dermatitis bilateral LE with several open areas, serous weeping from open areas, left knee with annular erythematous rash with areas of confluence Neurologic: moves all extremities; no focal motor deficits and not confused Psychiatric: A+Ox3, euthymic affect Results & Data Results & Data Vital Signs (Past 12 Hours) Vital Signs Temp Pulse Resp BP Pulse Ox O2 Del Method 11/05/22 17:30 78 17 98/61 L 96 Room Air 11/05/22 17:00 74 17 110/64 97 Room Air 11/05/22 16:30 71 14 101/60 92 Room Air 11/05/22 16:10 77 19 104/54 L 99 Room Air 11/05/22 15:31 78 21 111/65 94 Room Air 11/05/22 15:00 78 19 138/73 93 Room Air 11/05/22 14:00 76 20 93 Room Air 11/05/22 14:35 88 16 99 Room Air 11/05/22 13:37 83 11/05/22 13:32 96 Room Air 11/05/22 13:32 36.8 C 80 24 107/75 95 Room Air 11/05/22 13:32 Room Air Laboratory Results Laboratory Results - last 24 hr 11/05/22 11/05/22 11/05/22 13:45 13:45 13:45 WBC 8.71 RBC 4.13 L Hgb 11.6 L Hct 36.3 L MCV 87.9 MCH 28.1 MCHC 32.0 RDW Std Deviation 54.1 H RDW Coeff of Juani 17.2 H Plt Count 125 L MPV 11.0 Immature Gran % (Auto) 0.3 Neut % (Auto) 87.0 Lymph % (Auto) 3.4 Mesa % (Auto) 8.5 Eos % (Auto) 0.5 Baso % (Auto) 0.3 Neut # (Auto) 7.57 H Lymph # (Auto) 0.30 L Mesa # (Auto) 0.74 H Eos # (Auto) 0.04 Baso # (Auto) 0.03 Immature Gran # (Auto) 0.03 PT INR Sodium 136 Potassium 4.3 Chloride 99 Carbon Dioxide 30 Anion Gap 7 BUN 32 H Creatinine 1.43 H Est Cr Clr Drug Dosing 47.5 Est GFR ( Amer) 42.3 Est GFR (Non-Af Amer) 36.5 BUN/Creatinine Ratio 22.4 H Glucose 139 H POC Glucose Calcium 8.9 Phosphorus 3.7 Magnesium 1.9 Total Bilirubin 1.6 H AST 24 ALT 16 Alkaline Phosphatase 140 H Troponin I High Sens 17.5 H B-Natriuretic Peptide 918 H Total Protein 5.6 L Albumin 3.3 L Globulin 2.3 L Albumin/Globulin Ratio 1.4 Lipase 13 TSH Anaplasma Smear A. phagocytophilum DNA Babesia Smear Babesia microti DNA PCR Lyme Disease IgG Ab Lyme Disease IgM Ab E.chaffeensis DNA (PCR) 11/05/22 11/05/22 11/05/22 13:45 13:45 16:01 WBC RBC Hgb Hct MCV MCH MCHC RDW Std Deviation RDW Coeff of Juani Plt Count MPV Immature Gran % (Auto) Neut % (Auto) Lymph % (Auto) Mesa % (Auto) Eos % (Auto) Baso % (Auto) Neut # (Auto) Lymph # (Auto) Mesa # (Auto) Eos # (Auto) Baso # (Auto) Immature Gran # (Auto) PT 13.2 H INR 1.2 H Sodium Potassium Chloride Carbon Dioxide Anion Gap BUN Creatinine Est Cr Clr Drug Dosing Est GFR ( Amer) Est GFR (Non-Af Amer) BUN/Creatinine Ratio Glucose POC Glucose Calcium Phosphorus Magnesium Total Bilirubin AST ALT Alkaline Phosphatase Troponin I High Sens B-Natriuretic Peptide Total Protein Albumin Globulin Albumin/Globulin Ratio Lipase TSH 3.156 Anaplasma Smear See Comment A. phagocytophilum DNA Babesia Smear See Comment Babesia microti DNA PCR Lyme Disease IgG Ab Lyme Disease IgM Ab E.chaffeensis DNA (PCR) 11/05/22 11/05/22 11/05/22 16:01 16:01 16:01 WBC RBC Hgb Hct MCV MCH MCHC RDW Std Deviation RDW Coeff of Juani Plt Count MPV Immature Gran % (Auto) Neut % (Auto) Lymph % (Auto) Mesa % (Auto) Eos % (Auto) Baso % (Auto) Neut # (Auto) Lymph # (Auto) Mesa # (Auto) Eos # (Auto) Baso # (Auto) Immature Gran # (Auto) PT INR Sodium Potassium Chloride Carbon Dioxide Anion Gap BUN Creatinine Est Cr Clr Drug Dosing Est GFR ( Amer) Est GFR (Non-Af Amer) BUN/Creatinine Ratio Glucose POC Glucose Calcium Phosphorus Magnesium Total Bilirubin AST ALT Alkaline Phosphatase Troponin I High Sens B-Natriuretic Peptide Total Protein Albumin Globulin Albumin/Globulin Ratio Lipase TSH Anaplasma Smear A. phagocytophilum DNA Pending Babesia Smear Babesia microti DNA PCR Lyme Disease IgG Ab Negative Lyme Disease IgM Ab Negative E.chaffeensis DNA (PCR) Pending 11/05/22 11/05/22 16:01 18:41 WBC RBC Hgb Hct MCV MCH MCHC RDW Std Deviation RDW Coeff of Juani Plt Count MPV Immature Gran % (Auto) Neut % (Auto) Lymph % (Auto) Mesa % (Auto) Eos % (Auto) Baso % (Auto) Neut # (Auto) Lymph # (Auto) Mesa # (Auto) Eos # (Auto) Baso # (Auto) Immature Gran # (Auto) PT INR Sodium Potassium Chloride Carbon Dioxide Anion Gap BUN Creatinine Est Cr Clr Drug Dosing Est GFR ( Amer) Est GFR (Non-Af Amer) BUN/Creatinine Ratio Glucose POC Glucose 108 H Calcium Phosphorus Magnesium Total Bilirubin AST ALT Alkaline Phosphatase Troponin I High Sens B-Natriuretic Peptide Total Protein Albumin Globulin Albumin/Globulin Ratio Lipase TSH Anaplasma Smear A. phagocytophilum DNA Babesia Smear Babesia microti DNA PCR Pending Lyme Disease IgG Ab Lyme Disease IgM Ab E.chaffeensis DNA (PCR) Diagnostic Findings Chest X-Ray 11/05/22 13:49 XR chest 1V portable HISTORY: 72 years-old Female Chest pain, nonspecific COMPARISON: 08/28/2021 TECHNIQUE: AP view of the chest FINDINGS: Cardiac silhouette is enlarged. Left subclavian pacer. Pulmonary vascular congestion. No pneumothorax, large pleural effusion or lumbar space consolidation. Bones appear grossly intact. Unchanged blunting of the costophrenic angles. IMPRESSION: Cardiomegaly with pulmonary vascular congestion. Medications Administered Discontinued Medications Furosemide (Furosemide 40 Mg/4 Ml Vial) 40 mg IV NOW STA Stop: 11/05/22 15:31 Last Admin: 11/05/22 15:42 Dose: 40 mg Documented By: SAUL Code Status & VTE Plan VTE Prophylaxis Plan VTE Prophylaxis will be ordered: Yes Supervising Physician Co-Signing Physician Notes I have seen and examined the patient and have discussed the case with the provider above. I agree with the assessment and plan as stated with the following exception. 72 yo F with h/o heart failure and new liver cancer presents with worsening difficulty breathing. She reports SOB since . Ongoing issues with increasing diuretics and lightheadedness/di zziness. Chronic leg wounds are present and she is asking if these will be wrapped tonight. She is now oxygenating well on room air rafter requiring BIPAP earlier today. Lasix 40mg IV was given with at least 1L off. She is preload dependent given her and creatinine is also up. She is morbidly obese and with low vision. She keeps her eyes closed. She is mentating clearly. Diminished breath sounds throughout with some wheezing at the bases bilaterally. Small elliptical skin rash with a central clearing on her left knee. Cardiac exam. With distant heart sounds 3/6 MILES heard. Protuberant soft abdomen without pain to palpation. Lower erythema. Labs/imaging/meds reviewed. Agree with plan to diurese and cautiously and consult cardiology.DO Jon
[2022-11-05] MEDS ORDERED: NITROGLYCERIN SL 0.4 MG/TAB TAB SL PRN (18:40)
[2022-11-05] MEDS ORDERED: ACETAMINOPHEN 325 MG TAB PO PRN (18:40)
[2022-11-05] MEDS: INSULIN ASPART PER UNIT CHARGE SC SCH (20:37)
[2022-11-05] MEDS ORDERED: MELATONIN 3 MG TAB PO SCH (21:00)
[2022-11-05] MEDS ORDERED: [UNRECOGNIZED DRUG - REMARK] MUCOUS MEMBRANE SCH (21:00)
[2022-11-05] MEDS ORDERED: POTASSIUM CITRATE 10 MEQ TAB PO SCH (21:00)
[2022-11-05] MEDS: MELATONIN 3 MG TAB PO SCH (21:35)
[2022-11-05] MEDS: TAMSULOSIN HCL 0.4 MG CAP PO SCH (21:36)
[2022-11-05] MEDS: METOPROLOL SUCC 25MG EXT REL TAB PO SCH (21:36)
[2022-11-05] MEDS: PANCREAZE (LIPASE 4,200U) CAP PO SCH (21:37)
[2022-11-05] MEDS: PANCREAZE (LIPASE 10,500U) CAP PO SCH (21:37)
[2022-11-05] MEDS: ACETAMINOPHEN 500 MG TAB PO SCH (21:38)
[2022-11-05] MEDS: ATORVASTATIN 40 MG TAB PO SCH (21:38)
[2022-11-05] MEDS: HYDROXYCHLOROQUINE SULFATE 200 MG TAB PO SCH (21:38)
[2022-11-05] MEDS: MAGNESIUM OXIDE 400 MG TAB PO SCH ×2 (21:38→22:11)
[2022-11-05] MEDS: CYANOCOBALAMIN (B-12) 500 MCG TABLET PO SCH (21:39)
--- NOTE | 2022-11-05 21:49 | Ultrasound Report ---
ULTRASOUND ASCITES CHECK CLINICAL HISTORY: Fluid overload. Liver cancer. COMPARISON STUDY: Abdominal CT dated 08/27/2022. FINDINGS: Real-time grayscale sonography of all 4 quadrants of the abdomen is performed to assess for abdominal ascites. There is trace pelvic ascites. The liver is cirrhotic in morphology. IMPRESSION: There is trace pelvic ascites. This is insufficient for paracentesis. Electronically signed by: Familia Morales M.D. 11/05/2022 9:47 PM
[2022-11-05] MEDS: GABAPENTIN 400 MG CAP PO SCH (21:55)
[2022-11-05] MEDS: CLOTRIMAZOLE 1% CR 15 GM TUBE EXT SCH (21:56)
[2022-11-05] MEDS: ERYTHROMYCIN OP OINT 5 MG/GM 3.5 GM TUBE OPB SCH (21:56)
[2022-11-05] MEDS: BETAXOLOL HCL 0.5% OPL SCH (21:59)
[2022-11-05] MEDS: BRIMONIDINE TARTRATE 0.2% 5ML OPL SCH (22:00)
[2022-11-05] MEDS: LATANOPROST 0.005% OP SOLN 2.5 ML BTL OPB SCH (22:00)
[2022-11-05] MEDS: LANTUS PER UNIT CHARGE SQ SCH (22:04)
[2022-11-06] MEDS ORDERED: ZOLPIDEM TARTRATE 5 MG TAB PO STA (00:53)
[2022-11-06 06:24] LABS: Basophils # (auto) 0.03 K/uL (0-0.2); Basophils % (auto) 0.4 %; Eosinophils # (auto) 0.06 K/uL (0-0.50); Eosinophils % (auto) 0.8 %; Hematocrit (blood only) 36.1 % (37.0-47.0); Hemoglobin 11.3 g/dl (12.0-16.0); Immature Granulocytes # (auto) 0.02 K/uL (0.01-0.20); Immature Granulocytes % (auto) 0.3 %; Lymphocytes # (auto) 0.54 K/uL (1.2-3.4); Lymphocytes % (auto) 6.9 %; Mean Corpuscular Hemoglobin 27.4 pg (25.0-34.0); Mean Corpuscular Hgb Conc 31.3 g/dL (32.0-36.0); Mean Corpuscular Volume 87.4 fL (80.0-100.0); Mean Platelet Volume 11.2 fL (9.4-12.4); Monocytes # (auto) 0.72 K/uL (0.11-0.59); Monocytes % (auto) 9.2 %; Neutrophils # (auto) 6.46 K/uL (1.40-6.50); Neutrophils % (auto) 82.4 %; Platelet Count 119 K/uL (130-400); RDW Coefficient of Variation 17.1 % (11.5-14.5); RDW Standard Deviation 53.9 fL (36.4-46.3); Red Blood Count 4.13 M/uL (4.20-5.40); White Blood Count 7.83 K/ul (4.8-10.8)
[2022-11-06] MEDS: LEVOTHYROXINE SODIUM 125 MCG TABLET PO SCH (06:29)
[2022-11-06 06:33] LABS: BUN Creatinine Ratio 21.6 (10-20); Calcium 8.9 mg/dl (8.6-10.3); Creatinine Clr Calc Pharmacy 46.5 ml/min; Est GFR (African American) 43.8 ml/min; Est GFR (Non-African American) 37.8 ml/min; Magnesium 1.9 mg/dl (1.7-2.4)
--- NOTE | 2022-11-06 07:01 | Cardiology Consultation ---
Date of Consultation November 06, 2022 Assessment & Plan (1) Acute on chronic combined systolic (congestive) and diastolic (congestive) heart failure: (2) Aortic stenosis: (3) CKD (chronic kidney disease): Plan 72-year-old female presents with acute on chronic heart failure with primarily right-sided signs/symptoms. Spironolactone recently added in the outpatient setting without clinical benefit. Recommend titration of furosemide to 40 mg twice daily. Hold spironolactone at this time. Consider restarting prior to discharge pending ongoing evaluation of renal function and electrolytes. Supplement potassium as indicated. Follow daily weight, fluid balance, GFR, and electrolytes. Patient is not chronically anticoagulated due to bleeding risk. Continue dual antiplatelet therapy with history of drug-eluting stent implantation to the mid LAD March 2022. Further evaluation of severe versus pseudo-aortic stenosis as scheduled with transesophageal echocardiogram and dobutamine stress echocardiography in the outpatient setting once discharged. History of Present Illness Reason for Consultation: Acute on chronic heart failure Requesting Physician: Dr. Webb Attending Physician: Yola Webb, History of Present Illness 72-year-old female presented to the emergency department due to progressive shortness of breath, lower extremity edema, and weight gain. Complex cardiovascular history noted below. Evaluated the cardiology clinic 10/15/2022. During that visit spironolactone 12.5 mg daily added due to ongoing issues with volume overload. Patient's symptoms did not improve despite addition of Aldactone. Treated with 40 mg of IV furosemide in the ER with 1700 cc urine output. Chest x-ray reveals pulmonary edema. Patient reports progressive lower extremity edema, abdominal bloating, and weeping of her lower extremities as well as her abdomen over the past week. States she came to the ER "because things were getting worse". Currently resting comfortably. No dyspnea at rest. Telemetry reveals atrial fibrillation with demand ventricular pacing. Cardiac history: 1. Severely reduced left ventricular systolic function, EF 25-29%. 2. Acute decompensated right greater than left systolic and diastolic congestive heart failure signs and symptoms 3. Abnormal nuclear stress testing leading to March 22, 2022 cardiac catheterization revealing a 70% mid LAD stenosis status post PCI with a 3 x 20 mm Synergy drug eluting stent with excellent angiographic results, mild luminal irregularities elsewhere. 4. Suspected severe aortic stenosis 5. Severe mitral annular calcification, mild mitral regurgitation 6. Tachy-Brown Syndrome status post December 29, 2021 dual chamber Medtronic pacemaker implantation 7. Persistent atrial fibrillation since June 2022 8. [id number] Score is 8 points. 9. Bilateral carotid bruits. Stable moderate (50 to 69%) right internal carotid artery stenosis and mild (less than 50%) left internal carotid artery stenosis via February 2022 carotid duplex. Allergies Allergy/AdvReac Type Severity Reaction Status Date / Time cephalexin Allergy Severe Anaphylaxis Verified 11/05/22 16:43 Cephalosporins Allergy Severe Anaphylaxis Verified 11/05/22 16:43 Sulfa (Sulfonamide Allergy Intermediate Hives Verified 11/05/22 16:43 Antibiotics) sulfamethoxazole Allergy Intermediate Hives Verified 11/05/22 16:43 [From Bactrim] trimethoprim [From Bactrim] Allergy Intermediate Hives Verified 11/05/22 16:43 butorphanol AdvReac Intermediate Rapid heart Verified 11/05/22 16:43 ciprofloxacin AdvReac Mild Nausea Verified 11/05/22 16:43 Home Medications Medication Instructions Recorded Confirmed Type aspirin 81 mg chewable tablet 81 mg PO [facility] 11/02/18 11/05/22 History (Aspirin Childrens) atorvastatin 40 mg tablet 40 mg PO 11/02/18 11/05/22 History erythromycin 5 mg/gram (0.5 %) eye 1 applic OPB QID 11/02/18 11/05/22 History ointment fluticasone propionate 50 2 spray intranasal QA 11/02/18 11/05/22 History mcg/actuation nasal spray,suspension (Flonase Allergy Relief) folic acid 1 mg tablet 1 mg PO QAM 11/02/18 11/05/22 History gabapentin 400 mg capsule 400 mg PO TID 11/02/18 11/05/22 History hydroxychloroquine 200 mg tablet 400 mg PO 11/02/18 11/05/22 History (Plaquenil) latanoprost (PF) 0.005 % eye drops 1 drp OPB 11/02/18 11/05/22 History levothyroxine 125 mcg tablet 125 mcg PO QAM 11/02/18 11/05/22 History lorazepam 0.5 mg tablet 0.5 mg PO TID PRN Anxiety 11/02/18 11/05/22 History meclizine 25 mg tablet 25 mg PO TID PRN Dizziness 11/02/18 11/05/22 History multivitamin with iron 1 tab PO QAM 11/02/18 11/05/22 History nitroglycerin 0.4 mg sublingual 0.4 mg sublingual UD PRN Chest Pain 11/02/18 11/05/22 History tablet omeprazole 20 mg tablet,delayed 20 mg PO QAM 11/02/18 11/05/22 History release prednisone 5 mg tablet 5 mg PO QAM 11/02/18 11/05/22 History saliva stimulant comb. no.3 1 spray mucous membrane QID 11/02/18 11/05/22 History (Biotene Moisturizing Mouth mucosal spray) torsemide 10 mg tablet 20 mg PO QAM 11/02/18 11/05/22 History brimonidine 0.2 % eye drops 1 drp OPL BID 10/20/19 11/05/22 History cyanocobalamin (vitamin B-12) 1,500 mcg PO QPM 10/20/19 11/05/22 History 1,000 mcg tablet (Vitamin B-12) hydrocodone 5 mg-acetaminophen 325 1 tab PO Q6H PRN Pain,mild 03/26/21 11/05/22 History mg tablet melatonin 5 mg tablet 5 mg PO HS 03/30/21 11/05/22 History Probiotic Daily 1 cap PO QAM 08/30/21 11/05/22 History betaxolol 0.5 % eye drops 1 drp OPL [facility] 08/30/21 11/05/22 History magnesium oxide 400 mg (241.3 mg 400 mg PO MOWEFR 08/30/21 11/05/22 History magnesium) tablet netarsudil 0.02 % eye drops 1 drp OPL HS 08/30/21 11/05/22 History (Rhopressa) methotrexate sodium 2.5 mg tablet 10 mg PO .HOLD 02/11/22 11/05/22 History clopidogrel 75 mg tablet (Plavix) 75 mg PO QAM 04/08/22 11/05/22 History tamsulosin 0.4 mg capsule 0.4 mg PO HS #30 caps 08/02/22 11/05/22 Rx insulin aspart U-100 100 unit/mL See Rx Instructions .Route .COMPLEX 08/19/22 11/05/22 History (3 mL) subcutaneous pen (Novolog FlexPen U-100 Insulin aspart) insulin glargine 100 unit/mL 40 unit subcut DAILY 08/19/22 11/05/22 History subcutaneous solution (Lantus U-100 Insulin) [id number] 1 cap PO QID 09/02/22 11/05/22 History 24,000-76,000-120,000 unit capsule,delayed rel (Creon) acetaminophen 500 mg tablet 500 mg PO HS 11/05/22 11/05/22 History (Tylenol Extra Strength) ammonium lactate 12 % topical cream 1 applic topical HS PRN Afected 11/05/22 11/05/22 History area ascorbic acid (vitamin C) 500 mg 500 mg PO QAM 11/05/22 11/05/22 History tablet (Vitamin C) iron,carbonyl 65 mg-vitamin C 125 1 tab PO DAILY 11/05/22 11/05/22 History mg tablet,delayed release (Vitron-C) metoprolol succinate 50 mg 25 mg PO BID 11/05/22 11/05/22 History tablet,extended release 24 hr nystatin 100,000 unit/gram topical 1 applic topical TID PRN 11/05/22 11/05/22 History powder .irritation potassium chloride 10 mEq 10 meq PO DAILY 11/05/22 11/05/22 History tablet,extended release potassium citrate 10 mEq (1,080 15 meq PO BID 11/05/22 11/05/22 History mg) tablet,extended release spironolactone 25 mg tablet 12.5 mg PO QAM 11/05/22 11/05/22 History tizanidine 2 mg tablet 2 mg PO Q6 PRN Muscle Spasm 11/05/22 11/05/22 History torsemide 10 mg tablet 10 mg PO .Q AFTERNOON 11/05/22 11/05/22 History Patient History Medical History Anemia Aortic stenosis now suspected to be severe per 08/2022 echo report: CHAPO (I,D) 0.78 cm2 (V,D) 0.84 cm2, mean PG 16 mmHg Blindness Left eye (since ), right eye sown shut "from the inside"; legally blind Carotid stenosis 03/03/22 carotid duplex- REGINE 50-69% stenosis. LICA less than 50% stenosis. Chronic back pain Chronic kidney disease, stage [address] [facility] nephrology Chronic steroid use Congestive heart failure EF 25-29% on 08/2022 echo Diabetes mellitus, type 2 IDDM Diabetic neuropathy Diabetic retinopathy Edema of both legs current issue--has perez wraps around both legs Glaucoma open angle per [facility] records Hernia Current History of atrial fibrillation Single, brief episode (2018) History of blood transfusion 1980s History of cancer 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), s/p surgical intervention History of COVID-19 diagnosed end of 05/2022 via home test--cough, body aches, sore throat, nausea, runny nose--no symptoms now History of gastric ulcer History of sinus problem Reason for nebulizer and inhalers prn Hyperlipidemia Hypertension Hypothyroidism Ischemic cardiomyopathy EF 25-29% 08/2022 echo Kidney stones hx Liver cancer Stage 1, s/p embolization (injection black poppyseed oil twice) under surveillance by [facility] heme/onc Migraine Hx years ago Morbid obesity with BMI of 40.0-44.9, adult Myocardial Infarction Remote silent MO (10+ years ago) On anticoagulant therapy plavix daily Pacemaker Implanted 12/29/21 (ventricular tachycardia) Medtronic Pancreatic lesion "10 mm nodule consistent with intraductal papillary mucinous neoplasm" Pancreatitis Mutliple, 15+ episodes (no current issues) Rheumatoid arthritis on Plaquenil, MTX, prednisone 5mg daily Sleep apnea CPAP Transient ischemic attack (TIA) ? TIA vs CVA x2 (20+ years ago), no deficits Surgical History History of appendectomy History of bilateral cataract extraction History of biopsy of bladder showed chronic cystitis History of cardiac cath 03/22/22 > 1 stent drug eluting> [place] > see report in records History of carpal tunnel release of both wrists History of cholecystectomy History of colonoscopy History of cystoscopy --multiple--last 04/15/22 @ [facility] Cystoscopy, right stent, right laser lithotripsy (08/11/2020): LMA 4.0 unique, atraumatic, LMA attempt x1 at [facility]. No issues per postop anesthesia progress note. History of detached retina repair x4 on right eye; sx to sew right eye shut in 2017 History of dilatation and curettage x3 History of ERCP History of esophagogastroduodenoscopy (EGD) History of liver biopsy X 2 History of lumbar discectomy History of partial thyroidectomy right side and ismis removed d/t papillary cancer History of tarsorrhaphy BILT--right eye closed shut, left eye partly closed History of tooth extraction all top teeth, most of bottom History of total hysterectomy with bilateral salpingo-oophorectomy (BSO) Nausea and vomiting after administration of anesthetic agent S/P cardiac cath [facility] 03/2022 S/P foot surgery, left "stepped on a needle and had to have it removed" Status post laser lithotripsy of ureteral calculus x3 -> November 2019, December 2019, August 2020 Family History Father Family history of diabetes mellitus Family history of reaction to anesthesia difficulty waking Mother Family history of diabetes mellitus Sister Family history of diabetes mellitus Brother Family history of diabetes mellitus Grandmother (Maternal) Family history of diabetes mellitus Grandmother (Paternal) Family history of diabetes mellitus Son Family history of diabetes mellitus Social History Smoking Status: Never smoker Second Hand Exposure: No; Do You Dip or Chew Tobacco: No; Hx Alcohol Use: No Hx Substance Use: No Preferred Language: [place] Communication Ability: Effective Communication Ability Comment: pt is legally blind Communication Tools: Other Visual Impairment: Severely Limited Hearing Ability: Normal Rehabilitation Program Manager Required: No Beliefs That Will Affect Care: None marital status: Current Living Situation: Spouse current occupational status: disabled Feels Safe at Home: Yes Diet: diabetic, low carbohydrate and low salt Diet Comment: low fat caffeine: Yes during the past year weight has: remained stable Do you think of yourself as: straight/heterosexual Gender Identity: Female Assistive Devices: CPAP, Walker and Wheelchair Review of Systems Review of Systems: All systems reviewed & are unremarkable except as noted in Subjective Physical Exam Constitutional: well nourished; no acute distress Respiratory: no respiratory distress, no labored breathing and no retractions Auscultation: + diminished lung sounds (Bases bilateral) and + rales; no rhonchi and no wheezes Cardiovascular: Rate/Rhythm: + irregularly irregular Heart Sounds: normal S1, normal S2 and + murmur (Distant heart sounds, 1/6 MILES) Vessels: + JVD Extremities: + edema (2+ pitting edema in the lower extremities and abdomen) Gastrointestinal (Abdomen): Inspection/Auscultation: + abdominal edema; abdomen not distended Percussion/Palpation: abdomen soft; abdomen nontender, no guarding and abdomen not rigid Neurologic: CN's II-XI intact bilaterally and moves all extremities Psychiatric: A+Ox3, euthymic affect Results & Data Vital Signs (Past 12 Hours) Vital Signs Temp Pulse Pulse Resp BP Pulse Ox O2 Del Method 11/05/22 23:00 72 11/06/22 04:00 36.5 C 69 16 97 Room Air 11/06/22 03:06 64 21 98 11/05/22 22:53 36.7 C 78 18 104/70 95 Room Air 11/05/22 22:34 68 15 100 FiO2 11/05/22 23:00 11/06/22 04:00 11/06/22 03:06 21 11/05/22 22:53 11/05/22 22:34 21 Laboratory Results Cardiac Enzymes 11/05/22 11/05/22 11/05/22 Range/Units 13:45 13:45 21:30 AST 24 (13-39) U/L Troponin I High Sens 17.5 H 17.4 H (0-14) pg/ml B-Natriuretic Peptide 918 H (0-100) pg/ml Coagulation 11/05/22 11/05/22 Range/Units 13:45 13:45 PT 13.2 H (9.0-12.0) Seconds B-Natriuretic Peptide 918 H (0-100) pg/ml CBC 11/05/22 11/06/22 Range/Units 13:45 05:55 WBC 8.71 7.83 (4.8-10.8) K/ul RBC 4.13 L 4.13 L (4.20-5.40) M/uL Hgb 11.6 L 11.3 L (12.0-16.0) g/dl Hct 36.3 L 36.1 L (37.0-47.0) % Plt Count 125 L 119 L (130-400) K/uL Neut # (Auto) 7.57 H 6.46 (1.40-6.50) K/uL Lymph # (Auto) 0.30 L 0.54 L (1.2-3.4) K/uL [place] # (Auto) 0.74 H 0.72 H (0.11-0.59) K/uL Eos # (Auto) 0.04 0.06 (0-0.50) K/uL Baso # (Auto) 0.03 0.03 (0-0.2) K/uL Comprehensive Metabolic Panel 11/05/22 11/06/22 Range/Units 13:45 05:55 Sodium 136 139 (136-145) mmol/L Potassium 4.3 4.0 (3.5-5.1) mmol/L Chloride 99 99 (98-107) mmol/L Carbon Dioxide 30 34 H (21-32) mmol/L BUN 32 H 30 H (6-23) mg/dl Creatinine 1.43 H 1.39 H (0.6-1.2) mg/dl Glucose 139 H 125 H (70-99(Fasting)) mg/dl Calcium 8.9 8.9 (8.6-10.3) mg/dl AST 24 (13-39) U/L ALT 16 (7-52) U/L Alkaline Phosphatase 140 H (34-104) U/L Total Protein 5.6 L (6.0-8.3) gm/dl Albumin 3.3 L (3.4-5.0) gm/dl Intake and Output 11/05/22 11/05/22 11/06/22 14:59 22:59 06:59 Intake Total 420 / 420 Output Total 1700 / 2150 450 / 2150 Balance -1280 / -1730 -450 / -1730 Intake: Oral 420 / 420 Output: Urine 1300 / 1300 Urine Amount (Catheter) 400 / 850 450 / 850 Red/Indwelling 400 / 850 450 / 850 Other: Weight 131.2 kg 120.882 kg Weight Measurement Method Built in [facility] Built in [facility] Patient Weight 11/06/22 06:59 Weight 120.882 kg
[2022-11-06] MEDS: PANTOprazole 40 MG TAB PO SCH (08:31)
[2022-11-06] MEDS: predniSONE 5 MG TAB PO SCH (08:31)
[2022-11-06] MEDS: CEROVITE ADV FORMULA TAB PO SCH (08:31)
[2022-11-06] MEDS: PANCREAZE (LIPASE 4,200U) CAP PO SCH ×4 (08:31→21:32)
[2022-11-06] MEDS: GABAPENTIN 400 MG CAP PO SCH ×3 (08:31→21:33)
[2022-11-06] MEDS: PANCREAZE (LIPASE 10,500U) CAP PO SCH ×4 (08:31→21:32)
[2022-11-06] MEDS: ADVANCED PROBIOTIC 1250 MG CAPSULE PO SCH (08:32)
[2022-11-06] MEDS: FOLIC ACID 1 MG TAB PO SCH (08:32)
[2022-11-06] MEDS: METOPROLOL SUCC 25MG EXT REL TAB PO SCH ×2 (08:32→21:34)
[2022-11-06] MEDS: ASCORBIC ACID 500 MG TAB PO SCH (08:32)
[2022-11-06] MEDS: CLOPIDOGREL BISULFATE 75 MG TAB PO SCH (08:32)
[2022-11-06] MEDS: ENOXAPARIN INJ 40 MG/0.4 ML SYR SQ SCH (08:33)
[2022-11-06] MEDS: ASPIRIN 81 MG ECTAB PO SCH (08:33)
[2022-11-06] MEDS: FERROUS SULFATE 325 MG TAB PO SCH (08:33)
[2022-11-06] MEDS: FLUTICASONE PROPIONATE NA SPR 16 GM BTL SCH (08:33)
[2022-11-06] MEDS: CLOTRIMAZOLE 1% CR 15 GM TUBE EXT SCH ×2 (08:34→21:36)
[2022-11-06] MEDS: BETAXOLOL HCL 0.5% OPL SCH ×2 (08:34→21:39)
[2022-11-06] MEDS: ERYTHROMYCIN OP OINT 5 MG/GM 3.5 GM TUBE OPB SCH ×4 (08:34→21:38)
[2022-11-06] MEDS: BRIMONIDINE TARTRATE 0.2% 5ML OPL SCH ×2 (08:35→21:38)
[2022-11-06] MEDS: INSULIN ASPART PER UNIT CHARGE SC SCH ×4 (08:38→21:29)
[2022-11-06] MEDS: LANTUS PER UNIT CHARGE SQ SCH ×2 (08:39→21:31)
[2022-11-06] MEDS ORDERED: POTASSIUM CITRATE 10 MEQ TAB PO SCH (09:00)
[2022-11-06] MEDS ORDERED: FERROUS SULFATE 325 MG TAB PO SCH (09:00)
[2022-11-06] MEDS ORDERED: FUROSEMIDE 40 MG/4 ML VIAL IV SCH ×2 (09:00)
[2022-11-06] MEDS ORDERED: POTASSIUM CHLORIDE 10 MEQ TABCR PO SCH (09:00)
--- NOTE | 2022-11-06 12:39 | Hospitalist Progress Note ---
Date of Service November 06, 2022 Assessment & Plan (1) Acute on chronic combined systolic (congestive) and diastolic (congestive) heart failure: Plan: This is a 72 y/o with a complicated medical history including combined systolic and diastolic heart failure, CAD s/p PCI with WALTER, aortic stenosis (suspected severe), tachy-wilfrido syndrome s/p PPM in 2021, persistent afib since 07/01, bilateral carotid bruits, insulin-requiring DM, blindness, rheumatoid arthritis, chronic prednisone use, LAQUITA on CPAP, CKD3a, hypothyroidism, HTN, open-angle glaucoma, and recurrent liver cancer s/p recent placement of radiation beads. She presents to the ED today with progressive fluid overload even with increased outpatient diuresis. She has chronic LE wounds for which she is following with wound care but she has been told that until the fluid overload is improved, her wounds will be unlikely to heal. Lasix 40mg IV BID 40lb over ideal weight Anticipate improved blood pressures with diuresis (2) Tinea corporis: Plan: Rash on left knee seems most consistent with tinea corporis - Start clotrimazole 1% cream BID for a 14 days course (3) Chronic kidney disease, stage 3: Plan: monitor Cr with diuresis (4) Diabetes mellitus, type 2: Plan: Basal and sliding scale insulin Diabetic diet (5) Hypothyroidism: (6) Sleep apnea: Plan: CPAP ordered - settings from pt's outpatient records (7) Glaucoma: (8) Rheumatoid arthritis: Plan: Methotrexate currently on hold due to leg wounds - will continue prednisone and plaquenil (9) Iron deficiency anemia: (10) Venous stasis ulcers: Plan: Wound care consult Right leg in particular appears to have cellulitis (bright red, skin tears with drainage) looks to be strep Extensive antibiotic allergy noted. Will place on linezolid 600mg BID, anticipate 7 day course (11) Hepatocellular carcinoma: Plan: OP follow up Plan Code status: Full code but no prolonged heroic measures. Son is her POA DVT Prophylaxis: Lovenox Admission and Anticipated Discharge Date Admission Date: November 05, 2022 Subjective Still very volume overloaded (40lb weight gain in past 1 month), drainage/oozy from skin breaks No fever/chills Review of Systems Review of Systems: as above Physical Exam Physical Exam: obese, pleasant, comfortable ENMT: neck thick, eyes closed, mucous membrane moist Respiratory: breathing comfortably, diminished at bases, no wheezing Cardiovascular: regular rate and rhythm, no murmurs/rubs Gastrointestinal (Abdomen): soft Musculoskeletal: extensive swelling bilateral legs, abdominal wall, flank Skin: bilateral lower extremity erythema--right worse than left, some area of skin breaks/tears with drainage Neurologic: awake, alert, spontaneously moving extremities Results & Data Results & Data Vital Signs (Past 12 Hours) Vital Signs Temp Pulse Pulse Resp BP BP Pulse Ox 11/06/22 11:45 36.5 C 67 19 103/70 95 11/06/22 08:00 11/06/22 08:32 71 102/72 11/06/22 07:15 63 11/06/22 07:09 36.4 C L 70 18 90/55 L 98 11/06/22 04:00 36.5 C 69 16 97 11/06/22 03:06 64 21 98 O2 Del Method FiO2 11/06/22 11:45 Room Air 11/06/22 08:00 Room Air 11/06/22 08:32 11/06/22 07:15 11/06/22 07:09 Room Air 11/06/22 04:00 Room Air 11/06/22 03:06 21
[2022-11-06] MEDS ORDERED: SIMETHICONE 80 MG CHEW PO STA (20:06)
[2022-11-06] MEDS ORDERED: ALBUT/IPRATROP 3MG/0.5MG NEB 3 ML VIAL NEB STA (20:06)
[2022-11-06] MEDS ORDERED: CALCIUM CARBONATE 500 MG CHEWABLE TAB PO STA (20:07)
[2022-11-06 21:21] LABS: Partial Thromboplastin Time 28.2 Seconds (21.0-31.0)
[2022-11-06] MEDS: FUROSEMIDE 40 MG/4 ML VIAL IV SCH (21:32)
[2022-11-06] MEDS: LINEZOLID 600 MG TAB PO SCH (21:33)
[2022-11-06] MEDS: POTASSIUM CHLORIDE CRTAB 20 MEQ TABCR PO SCH (21:33)
[2022-11-06] MEDS: TAMSULOSIN HCL 0.4 MG CAP PO SCH (21:34)
[2022-11-06] MEDS: CYANOCOBALAMIN (B-12) 500 MCG TABLET PO SCH (21:34)
[2022-11-06] MEDS: HYDROXYCHLOROQUINE SULFATE 200 MG TAB PO SCH (21:35)
[2022-11-06] MEDS: MELATONIN 3 MG TAB PO SCH (21:35)
[2022-11-06] MEDS: ACETAMINOPHEN 500 MG TAB PO SCH (21:35)
[2022-11-06] MEDS: MAGNESIUM OXIDE 400 MG TAB PO SCH (21:36)
[2022-11-06] MEDS: ATORVASTATIN 40 MG TAB PO SCH (21:37)
[2022-11-06] MEDS: NYSTATIN POWDER 15GM BTL EXT PRN (21:38)
[2022-11-06] MEDS: LATANOPROST 0.005% OP SOLN 2.5 ML BTL OPB SCH (21:38)
[2022-11-06] MEDS: NETARSUDIL MESYLATE 37 DROPS/2.5 ML BTL OPL SCH (21:44)
[2022-11-07] MEDS: LEVOTHYROXINE SODIUM 125 MCG TABLET PO SCH (05:46)
[2022-11-07] MEDS: LORazepam 0.5 MG TAB PO PRN ×2 (06:07→21:48)
[2022-11-07 06:32] LABS: Basophils # (auto) 0.03 K/uL (0-0.2); Basophils % (auto) 0.3 %; Eosinophils # (auto) 0.05 K/uL (0-0.50); Eosinophils % (auto) 0.6 %; Hematocrit (blood only) 35.7 % (37.0-47.0); Hemoglobin 11.5 g/dl (12.0-16.0); Immature Granulocytes # (auto) 0.04 K/uL (0.01-0.20); Immature Granulocytes % (auto) 0.4 %; Lymphocytes # (auto) 0.49 K/uL (1.2-3.4); Lymphocytes % (auto) 5.4 %; Mean Corpuscular Hemoglobin 27.5 pg (25.0-34.0); Mean Corpuscular Hgb Conc 32.2 g/dL (32.0-36.0); Mean Corpuscular Volume 85.4 fL (80.0-100.0); Mean Platelet Volume 11.2 fL (9.4-12.4); Monocytes # (auto) 0.75 K/uL (0.11-0.59); Monocytes % (auto) 8.3 %; Neutrophils # (auto) 7.68 K/uL (1.40-6.50); Platelet Count 122 K/uL (130-400); RDW Coefficient of Variation 17.2 % (11.5-14.5); RDW Standard Deviation 53.1 fL (36.4-46.3); Red Blood Count 4.18 M/uL (4.20-5.40); White Blood Count 9.04 K/ul (4.8-10.8)
[2022-11-07 07:02] LABS: BUN Creatinine Ratio 25.6 (10-20); Calcium 9.1 mg/dl (8.6-10.3); Creatinine Clr Calc Pharmacy 48.6 ml/min; Est GFR (African American) 46.2 ml/min; Est GFR (Non-African American) 39.8 ml/min; Potassium 4.2 mmol/L (3.5-5.1)
[2022-11-07] MEDS: PANTOprazole 40 MG TAB PO SCH (08:14)
[2022-11-07] MEDS: CLOPIDOGREL BISULFATE 75 MG TAB PO SCH (08:14)
[2022-11-07] MEDS: ASPIRIN 81 MG ECTAB PO SCH (08:14)
[2022-11-07] MEDS: ASCORBIC ACID 500 MG TAB PO SCH (08:14)
[2022-11-07] MEDS: predniSONE 5 MG TAB PO SCH (08:15)
[2022-11-07] MEDS: PANCREAZE (LIPASE 10,500U) CAP PO SCH ×4 (08:15→21:48)
[2022-11-07] MEDS: FOLIC ACID 1 MG TAB PO SCH (08:15)
[2022-11-07] MEDS: MAGNESIUM OXIDE 400 MG TAB PO SCH ×2 (08:15→21:49)
[2022-11-07] MEDS: ADVANCED PROBIOTIC 1250 MG CAPSULE PO SCH (08:15)
[2022-11-07] MEDS: METOPROLOL SUCC 25MG EXT REL TAB PO SCH ×2 (08:15→21:49)
[2022-11-07] MEDS: POTASSIUM CHLORIDE CRTAB 20 MEQ TABCR PO SCH ×2 (08:15→21:49)
[2022-11-07] MEDS: PANCREAZE (LIPASE 4,200U) CAP PO SCH ×4 (08:15→21:48)
[2022-11-07] MEDS: GABAPENTIN 400 MG CAP PO SCH ×3 (08:15→21:49)
[2022-11-07] MEDS: FUROSEMIDE 40 MG/4 ML VIAL IV SCH ×2 (08:16→21:53)
[2022-11-07] MEDS: BETAXOLOL HCL 0.5% OPL SCH ×2 (08:16→21:52)
[2022-11-07] MEDS: LINEZOLID 600 MG TAB PO SCH ×2 (08:16→21:48)
[2022-11-07] MEDS: ENOXAPARIN INJ 40 MG/0.4 ML SYR SQ SCH (08:16)
[2022-11-07] MEDS: BRIMONIDINE TARTRATE 0.2% 5ML OPL SCH ×2 (08:17→21:50)
[2022-11-07] MEDS: FERROUS SULFATE 325 MG TAB PO SCH (08:18)
[2022-11-07] MEDS: CEROVITE ADV FORMULA TAB PO SCH (08:18)
[2022-11-07] MEDS: FLUTICASONE PROPIONATE NA SPR 16 GM BTL SCH (08:18)
[2022-11-07] MEDS: CLOTRIMAZOLE 1% CR 15 GM TUBE EXT SCH ×2 (08:20→21:52)
[2022-11-07] MEDS: ERYTHROMYCIN OP OINT 5 MG/GM 3.5 GM TUBE OPB SCH ×4 (08:20→21:51)
[2022-11-07] MEDS: LANTUS PER UNIT CHARGE SQ SCH ×2 (08:26→21:48)
[2022-11-07] MEDS: INSULIN ASPART PER UNIT CHARGE SC SCH ×4 (08:26→21:14)
--- NOTE | 2022-11-07 09:45 | Cardiology Progress Note ---
Date of Service November 07, 2022 Assessment & Plan (1) Acute on chronic combined systolic (congestive) and diastolic (congestive) heart failure: (2) Aortic stenosis: (3) CKD (chronic kidney disease): Plan 72-year-old female presents with acute on chronic heart failure with primarily right-sided signs/symptoms. Spironolactone recently added in the outpatient setting without clinical benefit. Continue furosemide 40 mg IV twice daily. Hold spironolactone at this time. Consider restarting prior to discharge pending ongoing evaluation of renal function and electrolytes. Supplement potassium as indicated. Follow daily weight, fluid balance, GFR, and electrolytes. Patient is not chronically anticoagulated due to bleeding risk. Continue dual antiplatelet therapy with history of drug-eluting stent implantation to the mid LAD March 2022. Further evaluation of severe versus pseudo-aortic stenosis as scheduled with transesophageal echocardiogram and dobutamine stress echocardiography in the outpatient setting once discharged. Admission and Anticipated Discharge Date Admission Date: November 05, 2022 Subjective Patient seen examined the bedside. Moderate diuresis noted. Admits to feeling somewhat depressed this morning due to her overall health status. No chest pain or shortness of breath. Telemetry reveals atrial fibrillation with heart rate ranging 60-70s. Review of Systems Review of Systems: All systems reviewed & are unremarkable except as noted in Subjective Physical Exam Constitutional: well nourished; no acute distress Respiratory: no respiratory distress, no labored breathing and no retractions Auscultation: + diminished lung sounds (Bases bilateral) and + rales; no rhonchi and no wheezes Cardiovascular: Rate/Rhythm: + irregularly irregular Heart Sounds: normal S1, normal S2 and + murmur (Distant heart sounds, 1/6 MILES) Vessels: + JVD Extremities: + edema (2+ pitting edema in the lower extremities and abdomen) Gastrointestinal (Abdomen): Inspection/Auscultation: + abdominal edema; abdomen not distended Percussion/Palpation: abdomen soft; abdomen nontender, no guarding and abdomen not rigid Neurologic: CN's II-XI intact bilaterally and moves all extremities Psychiatric: A+Ox3, euthymic affect Results & Data Vital Signs (Past 12 Hours) Vital Signs Temp Pulse Pulse Resp BP BP Pulse Ox 11/07/22 07:35 36.4 C L 71 20 114/72 98 11/07/22 07:10 67 11/07/22 03:13 36.9 C 75 16 142/93 H 100 11/06/22 23:00 83 11/07/22 00:20 76 21 96 11/06/22 23:30 36.6 C 79 18 110/74 98 O2 Del Method O2 Flow Rate 11/07/22 07:35 Nasal Cannula 3 11/07/22 07:10 11/07/22 03:13 Nasal Cannula 2 11/06/22 23:00 11/07/22 00:20 2 11/06/22 23:30 Nasal Cannula 2 Laboratory Results Cardiac Enzymes 11/06/22 Range/Units 20:23 Troponin I High Sens 19.9 H (0-14) pg/ml Coagulation 11/06/22 Range/Units 20:23 APTT 28.2 (21.0-31.0) Seconds CBC 11/07/22 Range/Units 05:52 WBC 9.04 (4.8-10.8) K/ul RBC 4.18 L (4.20-5.40) M/uL Hgb 11.5 L (12.0-16.0) g/dl Hct 35.7 L (37.0-47.0) % Plt Count 122 L (130-400) K/uL Neut # (Auto) 7.68 H (1.40-6.50) K/uL Lymph # (Auto) 0.49 L (1.2-3.4) K/uL [place] # (Auto) 0.75 H (0.11-0.59) K/uL Eos # (Auto) 0.05 (0-0.50) K/uL Baso # (Auto) 0.03 (0-0.2) K/uL Comprehensive Metabolic Panel 11/07/22 Range/Units 05:52 Sodium 138 (136-145) mmol/L Potassium 4.2 (3.5-5.1) mmol/L Chloride 100 (98-107) mmol/L Carbon Dioxide 32 (21-32) mmol/L BUN 34 H (6-23) mg/dl Creatinine 1.33 H (0.6-1.2) mg/dl Glucose 167 H (70-99(Fasting)) mg/dl Calcium 9.1 (8.6-10.3) mg/dl Intake and Output 11/06/22 11/07/22 11/07/22 22:59 06:59 14:59 Intake Total 540 / 540 Output Total 950 / 1225 275 / 1225 Balance -950 / -685 265 / -685 Intake: Oral 540 / 540 Output: Urine Amount (Catheter) 950 / 1225 275 / 1225 Red/Indwelling 950 / 1225 275 / 1225 Other: Other Intake Source sips
--- NOTE | 2022-11-07 13:11 | Hospitalist Progress Note ---
Date of Service November 07, 2022 Assessment & Plan (1) Acute on chronic combined systolic (congestive) and diastolic (congestive) heart failure: Plan: This is a 72 y/o with a complicated medical history including combined systolic and diastolic heart failure, CAD s/p PCI with WALTER, aortic stenosis (suspected severe), tachy-wilfrido syndrome s/p PPM in 2021, persistent afib since 07/01, bilateral carotid bruits, insulin-requiring DM, blindness, rheumatoid arthritis, chronic prednisone use, LAQUITA on CPAP, CKD3a, hypothyroidism, HTN, open-angle glaucoma, and recurrent liver cancer s/p recent placement of radiation beads. She presents to the ED today with progressive fluid overload even with increased outpatient diuresis. She has chronic LE wounds for which she is following with wound care but she has been told that until the fluid overload is improved, her wounds will be unlikely to heal. Continue Lasix 40mg IV BID 40lb over ideal weight Anticipate improved blood pressures with diuresis (2) Tinea corporis: Plan: Rash on left knee seems most consistent with tinea corporis - Started clotrimazole 1% cream BID for a 14 days course (3) Chronic kidney disease, stage 3: Plan: monitor Cr with diuresis (4) Diabetes mellitus, type 2: Plan: Basal and sliding scale insulin Diabetic diet (5) Hypothyroidism: (6) Sleep apnea: Plan: CPAP ordered - settings from pt's outpatient records (7) Glaucoma: (8) Rheumatoid arthritis: Plan: Methotrexate currently on hold due to leg wounds - will continue prednisone and plaquenil (9) Iron deficiency anemia: (10) Venous stasis ulcers: Plan: Wound care consult Right leg cellulitis Extensive antibiotic allergy noted. started linezolid 600mg BID, anticipate 7 day course. (11) Hepatocellular carcinoma: Plan: OP follow up Plan Code status: Full code but no prolonged heroic measures. Son is her POA DVT Prophylaxis: Lovenox Admission and Anticipated Discharge Date Admission Date: November 05, 2022 Subjective This morning felt very discouraged but now is feeling more upbeat Diuresing well BP is improved Review of Systems Review of Systems: as above Physical Exam Physical Exam: sitting in chair, no acute distress, pleasant Respiratory: breathing comfortably on room air, no wheezing/rhonchi Cardiovascular: regular rate and rhythm, no murmurs/rubs Gastrointestinal (Abdomen): soft, non tender, non distended Musculoskeletal: 3+ edema bilaterally Skin: skin of legs are less tight and shiny, more wrinkled today. Seepage from skin breaks. Erythema improved Neurologic: awake, alert, spontaneously moving extremities, blind Results & Data Results & Data Vital Signs (Past 12 Hours) Vital Signs Temp Pulse Pulse Resp BP Pulse Ox O2 Del Method 11/07/22 11:27 36.5 C 72 19 111/70 94 Room Air 11/07/22 07:35 36.4 C L 71 20 114/72 98 Nasal Cannula 11/07/22 07:10 67 11/07/22 03:13 36.9 C 75 16 142/93 H 100 Nasal Cannula O2 Flow Rate 11/07/22 11:27 11/07/22 07:35 3 11/07/22 07:10 11/07/22 03:13 2
[2022-11-07] MEDS: MELATONIN 3 MG TAB PO SCH (21:48)
[2022-11-07] MEDS: ACETAMINOPHEN 500 MG TAB PO SCH (21:48)
[2022-11-07] MEDS: CYANOCOBALAMIN (B-12) 500 MCG TABLET PO SCH (21:49)
[2022-11-07] MEDS: HYDROXYCHLOROQUINE SULFATE 200 MG TAB PO SCH (21:49)
[2022-11-07] MEDS: TAMSULOSIN HCL 0.4 MG CAP PO SCH (21:49)
[2022-11-07] MEDS: LATANOPROST 0.005% OP SOLN 2.5 ML BTL OPB SCH (21:50)
[2022-11-07] MEDS: NETARSUDIL MESYLATE 37 DROPS/2.5 ML BTL OPL SCH (21:50)
[2022-11-07] MEDS: ATORVASTATIN 40 MG TAB PO SCH (21:50)
[2022-11-07] MEDS: NYSTATIN POWDER 15GM BTL EXT PRN (21:52)
[2022-11-08] MEDS: LORazepam 0.5 MG TAB PO PRN ×2 (05:42→23:54)
[2022-11-08] MEDS: LEVOTHYROXINE SODIUM 125 MCG TABLET PO SCH (05:42)
[2022-11-08 07:18] LABS: Basophils # (auto) 0.04 K/uL (0-0.2); Basophils % (auto) 0.4 %; Eosinophils # (auto) 0.13 K/uL (0-0.50); Eosinophils % (auto) 1.4 %; Hematocrit (blood only) 36.9 % (37.0-47.0); Hemoglobin 11.6 g/dl (12.0-16.0); Immature Granulocytes # (auto) 0.04 K/uL (0.01-0.20); Immature Granulocytes % (auto) 0.4 %; Lymphocytes # (auto) 0.57 K/uL (1.2-3.4); Lymphocytes % (auto) 6.3 %; Mean Corpuscular Hemoglobin 27.6 pg (25.0-34.0); Mean Corpuscular Hgb Conc 31.4 g/dL (32.0-36.0); Mean Corpuscular Volume 87.9 fL (80.0-100.0); Mean Platelet Volume 11.7 fL (9.4-12.4); Monocytes # (auto) 0.72 K/uL (0.11-0.59); Neutrophils % (auto) 83.5 %; Platelet Count 113 K/uL (130-400); RDW Coefficient of Variation 17.2 % (11.5-14.5); RDW Standard Deviation 54.1 fL (36.4-46.3)
[2022-11-08 07:30] LABS: BUN Creatinine Ratio 26.8 (10-20); Calcium 9.1 mg/dl (8.6-10.3); Creatinine Clr Calc Pharmacy 51.2 ml/min; Est GFR (African American) 48.8 ml/min; Est GFR (Non-African American) 42.1 ml/min; Magnesium 1.9 mg/dl (1.7-2.4)
[2022-11-08] MEDS: LANTUS PER UNIT CHARGE SQ SCH ×2 (08:25→21:22)
[2022-11-08] MEDS: INSULIN ASPART PER UNIT CHARGE SC SCH ×4 (08:25→21:07)
[2022-11-08] MEDS: ERYTHROMYCIN OP OINT 5 MG/GM 3.5 GM TUBE OPB SCH ×4 (08:26→21:21)
[2022-11-08] MEDS: BETAXOLOL HCL 0.5% OPL SCH ×2 (08:26→21:21)
[2022-11-08] MEDS: FERROUS SULFATE 325 MG TAB PO SCH (08:27)
[2022-11-08] MEDS: LINEZOLID 600 MG TAB PO SCH ×2 (08:27→21:19)
[2022-11-08] MEDS: FUROSEMIDE 40 MG/4 ML VIAL IV SCH ×2 (08:27→21:20)
[2022-11-08] MEDS: ADVANCED PROBIOTIC 1250 MG CAPSULE PO SCH (08:27)
[2022-11-08] MEDS: PANCREAZE (LIPASE 10,500U) CAP PO SCH ×4 (08:27→21:18)
[2022-11-08] MEDS: GABAPENTIN 400 MG CAP PO SCH ×3 (08:28→21:19)
[2022-11-08] MEDS: POTASSIUM CHLORIDE CRTAB 20 MEQ TABCR PO SCH ×2 (08:28→21:19)
[2022-11-08] MEDS: FOLIC ACID 1 MG TAB PO SCH (08:29)
[2022-11-08] MEDS: predniSONE 5 MG TAB PO SCH (08:29)
[2022-11-08] MEDS: CLOPIDOGREL BISULFATE 75 MG TAB PO SCH (08:29)
[2022-11-08] MEDS: METOPROLOL SUCC 25MG EXT REL TAB PO SCH ×2 (08:29→21:19)
[2022-11-08] MEDS: PANTOprazole 40 MG TAB PO SCH (08:29)
[2022-11-08] MEDS: ASCORBIC ACID 500 MG TAB PO SCH (08:29)
[2022-11-08] MEDS: CEROVITE ADV FORMULA TAB PO SCH (08:29)
[2022-11-08] MEDS: MAGNESIUM OXIDE 400 MG TAB PO SCH ×2 (08:29→21:20)
[2022-11-08] MEDS: ASPIRIN 81 MG ECTAB PO SCH (08:29)
[2022-11-08] MEDS: FLUTICASONE PROPIONATE NA SPR 16 GM BTL SCH (08:30)
[2022-11-08] MEDS: CLOTRIMAZOLE 1% CR 15 GM TUBE EXT SCH ×2 (08:30→21:21)
[2022-11-08] MEDS: BRIMONIDINE TARTRATE 0.2% 5ML OPL SCH ×2 (08:30→21:21)
[2022-11-08] MEDS: PANCREAZE (LIPASE 4,200U) CAP PO SCH ×4 (08:31→21:20)
[2022-11-08] MEDS: ENOXAPARIN INJ 40 MG/0.4 ML SYR SQ SCH (08:33)
--- NOTE | 2022-11-08 11:09 | Cardiology Progress Note ---
Date of Service November 08, 2022 Assessment & Plan (1) Acute on chronic combined systolic (congestive) and diastolic (congestive) heart failure: (2) Aortic stenosis: (3) CKD (chronic kidney disease): Plan 72-year-old female admitted with acute on chronic heart failure with primarily right-sided signs/symptoms. Spironolactone recently added in the outpatient setting (held this admission) RECOMMENDATIONS: Increase furosemide to 60 mg IV twice daily. Continue to hold spironolactone for now. Supplement potassium as indicated. Follow daily weights, fluid balance, GFR, and electrolytes. Patient is not chronically anticoagulated due to bleeding risk. Continue dual antiplatelet therapy with history of drug-eluting stent implantation to the mid LAD March 2022. Further evaluation of severe versus pseudo-aortic stenosis as scheduled with transesophageal echocardiogram and dobutamine stress echocardiography in the outpatient setting once discharged. Admission and Anticipated Discharge Date Admission Date: November 05, 2022 Supervising Physician Co-Signing Physician Notes Patient seen and examined at the bedside. Edema improving, however, edematous abdominal pannus continues to weep. Negative fluid balance. Renal function mildly improved. Patient in better spirits today. Offers no new concerns/complaints. PE: Gen: NAD, awake, alert, oriented x3. Heart: Irregular rhythm, normal S1-S2. 2/6 systolic ejection murmur heard at the base. Lungs: Diminished breath sounds at the bases bilateral. No rales, rhonchi, wheeze. Extremities: 2+ bilateral pretibial edema with 2+ edema of her abdomen. A/P: Agree with above PA-C history, physical exam, assessment and plan. Titrate furosemide to 60 mg twice daily to improve urine output/diuresis. Follow daily weight, fluid balance, and electrolytes. Further evaluation of aortic stenosis in the outpatient setting as noted above. Subjective Patient seen and examined. Chart, medications, and telemetry reviewed. Participated in physical therapy at the bedside this morning. [place] a little dizzy and spongy in the legs with ambulation and afterwards. + Orthopnea without PND. Continues to ooze fluid. No chest pain. No palpitations. I/O's -2825 mL overall. Red catheter in place. Telemetry: Paced in the 60s and 70s Review of Systems Review of Systems: Complete review of systems is otherwise as stated above, negative, noncontributory Physical Exam Physical Exam: Examined in the bedside chair General: Alert, no distress, well nourished, well developed, comfortable and cooperative HENT: Normocephalic. Atraumatic. Neck: Bilateral carotid bruits. No overt JVD. Heart: Distant heart sounds. Regular at 60 bpm. Grade I-II/ systolic murmur. Apical systolic murmur. No diastolic murmur. No rub. Lungs: Faint bibasilar rales. No wheeze. Abdomen: +BS. Distended. Nontender. No masses. Extremities: 2+ pitting edema. No clubbing. No cyanosis Skin: + Rash on the lower extremities. Pulses: radial=2/4, posterior tibial=0/4. Limited neurological examination: No focal deficit. Results & Data Vital Signs (Past 12 Hours) Vital Signs Temp Pulse Pulse Resp BP Pulse Ox O2 Del Method 11/08/22 08:00 66 11/08/22 08:00 Room Air 11/08/22 10:47 36.1 C L 79 22 117/78 95 Nasal Cannula 11/08/22 10:46 99 11/08/22 08:03 36.5 C 68 20 104/65 100 Room Air 11/08/22 04:31 36.5 C 68 16 108/70 100 Nasal Cannula 11/08/22 00:10 36.5 C 66 24 101/66 94 Nasal Cannula O2 Flow Rate 11/08/22 08:00 11/08/22 08:00 11/08/22 10:47 1.5 11/08/22 10:46 11/08/22 08:03 11/08/22 04:31 1.5 11/08/22 00:10 1.5 Laboratory Results CBC 11/08/22 Range/Units 05:54 WBC 9.00 (4.8-10.8) K/ul RBC 4.20 (4.20-5.40) M/uL Hgb 11.6 L (12.0-16.0) g/dl Hct 36.9 L (37.0-47.0) % Plt Count 113 L (130-400) K/uL Neut # (Auto) 7.50 H (1.40-6.50) K/uL Lymph # (Auto) 0.57 L (1.2-3.4) K/uL [place] # (Auto) 0.72 H (0.11-0.59) K/uL Eos # (Auto) 0.13 (0-0.50) K/uL Baso # (Auto) 0.04 (0-0.2) K/uL Comprehensive Metabolic Panel 11/08/22 Range/Units 05:54 Sodium 139 (136-145) mmol/L Potassium 4.0 (3.5-5.1) mmol/L Chloride 101 (98-107) mmol/L Carbon Dioxide 33 H (21-32) mmol/L BUN 34 H (6-23) mg/dl Creatinine 1.27 H (0.6-1.2) mg/dl Glucose 92 (70-99(Fasting)) mg/dl Calcium 9.1 (8.6-10.3) mg/dl Intake and Output 11/07/22 11/08/22 11/08/22 22:59 06:59 14:59 Intake Total 500 / 1540 360 / 1540 Output Total 1949 Balance 250 / -410 -540 / -410 Intake: Oral 500 / 1540 360 / 1540 Output: Urine Amount (Catheter) 1949 Red/Indwelling 1949 Other: Weight 122.2 kg Weight Measurement Method Built in [facility]
[2022-11-08] MEDS ORDERED: POTASSIUM CHLORIDE 10 MEQ TABCR PO ONE (11:17)
--- NOTE | 2022-11-08 13:52 | Hospitalist Progress Note ---
Date of Service November 08, 2022 Assessment & Plan (1) Acute on chronic combined systolic (congestive) and diastolic (congestive) heart failure: Plan: This is a 72 y/o with a complicated medical history including combined systolic and diastolic heart failure, CAD s/p PCI with WALTER, aortic stenosis (suspected severe), tachy-wilfrido syndrome s/p PPM in 2021, persistent afib since 07/01, bilateral carotid bruits, insulin-requiring DM, blindness, rheumatoid arthritis, chronic prednisone use, LAQUITA on CPAP, CKD3a, hypothyroidism, HTN, open-angle glaucoma, and recurrent liver cancer s/p recent placement of radiation beads. She presents to the ED today with progressive fluid overload even with increased outpatient diuresis. She has chronic LE wounds for which she is following with wound care but she has been told that until the fluid overload is improved, her wounds will be unlikely to heal. Lasix 40mg IV BID--> increased to lasix 60mg BID 40lb over ideal weight (2) Tinea corporis: Plan: Rash on left knee seems most consistent with tinea corporis - Started clotrimazole 1% cream BID for a 14 days course (3) Chronic kidney disease, stage 3: Plan: monitor Cr with diuresis (4) Diabetes mellitus, type 2: Plan: Basal and sliding scale insulin Diabetic diet (5) Hypothyroidism: (6) Sleep apnea: Plan: CPAP ordered - settings from pt's outpatient records (7) Glaucoma: (8) Rheumatoid arthritis: Plan: Methotrexate currently on hold due to leg wounds - will continue prednisone and plaquenil (9) Iron deficiency anemia: (10) Venous stasis ulcers: Plan: Wound care consult Right leg cellulitis Extensive antibiotic allergy noted. started linezolid 600mg BID, anticipate 7 day course. (11) Hepatocellular carcinoma: Plan: OP follow up Plan Code status: Full code but no prolonged heroic measures. Son is her POA DVT Prophylaxis: Lovenox Admission and Anticipated Discharge Date Admission Date: November 05, 2022 Subjective Still with seepage through skin breaks Worked with PT today Review of Systems Review of Systems: as above Physical Exam Physical Exam: Sitting in bed, pleasant and comfortable Respiratory: diminished at bases, no wheezing/rhonchi Cardiovascular: regular rate and rhythm, no murmurs/rubs Gastrointestinal (Abdomen): soft, non tender Musculoskeletal: 2-3+ edema bilaterally Skin: skin tears with serous discharge Neurologic: blind, awake, alert, spontaneously moving extremities, able to feed herself Results & Data Results & Data Vital Signs (Past 12 Hours) Vital Signs Temp Pulse Pulse Resp BP Pulse Ox O2 Del Method 11/08/22 08:00 66 11/08/22 08:00 Room Air 11/08/22 10:47 36.1 C L 79 22 117/78 95 Nasal Cannula 11/08/22 10:46 99 11/08/22 08:03 36.5 C 68 20 104/65 100 Room Air 11/08/22 04:31 36.5 C 68 16 108/70 100 Nasal Cannula O2 Flow Rate 11/08/22 08:00 11/08/22 08:00 11/08/22 10:47 1.5 11/08/22 10:46 11/08/22 08:03 11/08/22 04:31 1.5
[2022-11-08] MEDS: ATORVASTATIN 40 MG TAB PO SCH (21:18)
[2022-11-08] MEDS: HYDROXYCHLOROQUINE SULFATE 200 MG TAB PO SCH (21:18)
[2022-11-08] MEDS: CYANOCOBALAMIN (B-12) 500 MCG TABLET PO SCH (21:19)
[2022-11-08] MEDS: ACETAMINOPHEN 500 MG TAB PO SCH (21:19)
[2022-11-08] MEDS: TAMSULOSIN HCL 0.4 MG CAP PO SCH (21:21)
[2022-11-08] MEDS: NETARSUDIL MESYLATE 37 DROPS/2.5 ML BTL OPL SCH (21:22)
[2022-11-08] MEDS: MELATONIN 3 MG TAB PO SCH ×2 (21:22→23:54)
[2022-11-08] MEDS: LATANOPROST 0.005% OP SOLN 2.5 ML BTL OPB SCH (21:22)
[2022-11-09] MEDS: LEVOTHYROXINE SODIUM 125 MCG TABLET PO SCH (05:51)
[2022-11-09 07:25] LABS: BUN Creatinine Ratio 28.3 (10-20); Calcium 8.9 mg/dl (8.6-10.3); Creatinine Clr Calc Pharmacy 58.1 ml/min; Est GFR (African American) 56.2 ml/min; Est GFR (Non-African American) 48.5 ml/min; Magnesium 1.9 mg/dl (1.7-2.4); Potassium 4.1 mmol/L (3.5-5.1)
[2022-11-09] MEDS: LANTUS PER UNIT CHARGE SQ SCH ×2 (08:53→21:27)
[2022-11-09] MEDS: INSULIN ASPART PER UNIT CHARGE SC SCH ×4 (08:53→21:27)
[2022-11-09] MEDS: ASCORBIC ACID 500 MG TAB PO SCH (08:56)
[2022-11-09] MEDS: FUROSEMIDE 40 MG/4 ML VIAL IV SCH ×2 (08:56→20:46)
[2022-11-09] MEDS: PANCREAZE (LIPASE 4,200U) CAP PO SCH ×4 (08:56→20:43)
[2022-11-09] MEDS: ASPIRIN 81 MG ECTAB PO SCH (08:56)
[2022-11-09] MEDS: POTASSIUM CHLORIDE CRTAB 20 MEQ TABCR PO SCH ×2 (08:56→20:41)
[2022-11-09] MEDS: LINEZOLID 600 MG TAB PO SCH ×2 (08:57→20:41)
[2022-11-09] MEDS: ENOXAPARIN INJ 40 MG/0.4 ML SYR SQ SCH (08:57)
[2022-11-09] MEDS: MAGNESIUM OXIDE 400 MG TAB PO SCH ×2 (08:57→20:43)
[2022-11-09] MEDS: GABAPENTIN 400 MG CAP PO SCH ×3 (08:57→20:42)
[2022-11-09] MEDS: METOPROLOL SUCC 25MG EXT REL TAB PO SCH ×2 (08:57→20:42)
[2022-11-09] MEDS: FERROUS SULFATE 325 MG TAB PO SCH (08:58)
[2022-11-09] MEDS: FOLIC ACID 1 MG TAB PO SCH (08:58)
[2022-11-09] MEDS: CEROVITE ADV FORMULA TAB PO SCH (08:58)
[2022-11-09] MEDS: ADVANCED PROBIOTIC 1250 MG CAPSULE PO SCH (08:58)
[2022-11-09] MEDS: PANTOprazole 40 MG TAB PO SCH (08:58)
[2022-11-09] MEDS: CLOPIDOGREL BISULFATE 75 MG TAB PO SCH (08:58)
[2022-11-09] MEDS: PANCREAZE (LIPASE 10,500U) CAP PO SCH ×4 (08:58→20:44)
[2022-11-09] MEDS: predniSONE 5 MG TAB PO SCH (08:58)
[2022-11-09] MEDS: BETAXOLOL HCL 0.5% OPL SCH ×2 (08:59→20:45)
[2022-11-09] MEDS: ERYTHROMYCIN OP OINT 5 MG/GM 3.5 GM TUBE OPB SCH ×4 (08:59→20:47)
[2022-11-09] MEDS: BRIMONIDINE TARTRATE 0.2% 5ML OPL SCH ×2 (08:59→20:45)
[2022-11-09] MEDS: FLUTICASONE PROPIONATE NA SPR 16 GM BTL SCH (09:00)
[2022-11-09] MEDS: CLOTRIMAZOLE 1% CR 15 GM TUBE EXT SCH ×2 (09:00→20:46)
--- NOTE | 2022-11-09 09:44 | Cardiology Progress Note ---
Date of Service November 09, 2022 Assessment & Plan (1) Acute on chronic combined systolic (congestive) and diastolic (congestive) heart failure: (2) Aortic stenosis: (3) CKD (chronic kidney disease): Plan 72-year-old female admitted with acute on chronic heart failure with primarily right-sided signs/symptoms. Patient receiving IV furosemide with gradual improvement in symptoms, gradual diuresis, improvement in renal dysfunction. RECOMMENDATIONS: Furosemide 60 mg IV twice daily. Continue to hold spironolactone for now. Supplement potassium as indicated. Follow daily weights, fluid balance, GFR, and electrolytes. Patient is not chronically anticoagulated due to bleeding risk. Continue dual antiplatelet therapy with history of drug-eluting stent implantation to the mid LAD March 2022. Further evaluation of severe versus pseudo-aortic stenosis as scheduled with transesophageal echocardiogram and dobutamine stress echocardiography in the outpatient setting once discharged. Admission and Anticipated Discharge Date Admission Date: November 05, 2022 Supervising Physician Co-Signing Physician Notes Supervising Physician Attestation: I have personally performed a history and physical examination on the patient. I agree with the physician bindery assistant's findings and plan as documented with the following additions. Subjective: Patient feeling subjectively improved Exam: Cardiovascular: Regular rhythm, 1/6 systolic murmur, 1-2+ lower extreme edema Data: EKG 11/05/2022: Atrial fibrillation at 70 bpm with occasional ventricular paced beats Assessment and Plan: Acute on chronic heart failure with reduced ejection fraction Continue furosemide 60 mg IV twice daily DVT prophylaxis: Subcutaneous Lovenox Luigi Donovan, Subjective Patient seen and examined. Chart, medications, and telemetry reviewed. Feeling better. Less dyspnea. Less "oozing fluid." "My legs feel better and they say they look better." + Orthopnea without PND. No chest pain. No palpitations. I/O's: -1,730 mL's, -685 mL's, -410 mL's, and -530 mL's (Overall - 3,355 mL's) Telemetry: Paced predominately in the 70s Review of Systems Review of Systems: Complete review of systems is otherwise as stated above, negative, noncontributory Physical Exam Physical Exam: Examined while laying in bed at 40 degrees General: Alert, no distress, well nourished, well developed, comfortable and cooperative HENT: Normocephalic. Atraumatic. Neck: Bilateral carotid bruits. No overt JVD. Heart: Distant heart sounds. Regular at 70 bpm. Grade I-II/ systolic murmur. Apical systolic murmur. No diastolic murmur. No rub. Lungs: Clear to auscultation. No wheeze. Abdomen: +BS. Distended. Nontender. No masses. Extremities: 1-2+ pitting edema. No clubbing. No cyanosis Skin: Improving rash on the lower extremities. Pulses: radial=2/4, posterior tibial=0/4. Limited neurological examination: No focal deficit. Results & Data Vital Signs (Past 12 Hours) Vital Signs Temp Pulse Pulse Resp BP BP Pulse Ox 11/09/22 07:44 36.3 C L 68 18 116/74 100 11/09/22 02:54 36.6 C 74 20 110/77 100 11/09/22 00:00 11/08/22 23:00 80 11/08/22 22:45 36.4 C L 75 18 111/69 98 O2 Del Method O2 Flow Rate 11/09/22 07:44 Nasal Cannula 1.5 11/09/22 02:54 Nasal Cannula 1.5 11/09/22 00:00 Nasal Cannula 2 11/08/22 23:00 11/08/22 22:45 Nasal Cannula 1.5 Laboratory Results Comprehensive Metabolic Panel 11/09/22 Range/Units 06:13 Sodium 139 (136-145) mmol/L Potassium 4.1 (3.5-5.1) mmol/L Chloride 102 (98-107) mmol/L Carbon Dioxide 32 (21-32) mmol/L BUN 32 H (6-23) mg/dl Creatinine 1.13 (0.6-1.2) mg/dl Glucose 85 (70-99(Fasting)) mg/dl Calcium 8.9 (8.6-10.3) mg/dl Intake and Output 11/08/22 11/09/22 11/09/22 22:59 06:59 14:59 Intake Total 680 / 1270 300 / 1270 Output Total 550 / 1800 500 / 1800 Balance 130 / -530 -200 / -530 Intake: Oral 200 / 790 300 / 790 Other 480 / 480 Output: Urine Amount (Catheter) 550 / 1800 500 / 1800 Red/Indwelling 550 / 1800 500 / 1800 Other: Weight 124.2 kg Weight Measurement Method Built in [facility]
--- NOTE | 2022-11-09 17:44 | Hospitalist Progress Note ---
Date of Service November 09, 2022 Assessment & Plan (1) Acute on chronic combined systolic (congestive) and diastolic (congestive) heart failure: Plan: This is a 72 y/o with a complicated medical history including combined systolic and diastolic heart failure, CAD s/p PCI with WALTER, aortic stenosis (suspected severe), tachy-wilfrido syndrome s/p PPM in 2021, persistent afib since 07/01, bilateral carotid bruits, insulin-requiring DM, blindness, rheumatoid arthritis, chronic prednisone use, LAQUITA on CPAP, CKD3a, hypothyroidism, HTN, open-angle glaucoma, and recurrent liver cancer s/p recent placement of radiation beads. She presents to the ED today with progressive fluid overload even with increased outpatient diuresis. She has chronic LE wounds for which she is following with wound care but she has been told that until the fluid overload is improved, her wounds will be unlikely to heal. Lasix 40mg IV BID--> increased to lasix 60mg BID 11/08 40lb over ideal weight Defer diuresis to Cardiology (2) Tinea corporis: Plan: Rash on left knee seems most consistent with tinea corporis - Started clotrimazole 1% cream BID for a 14 days course (3) Chronic kidney disease, stage 3: Plan: monitor Cr with diuresis (4) Diabetes mellitus, type 2: Plan: Basal and sliding scale insulin Diabetic diet (5) Hypothyroidism: (6) Sleep apnea: Plan: CPAP ordered - settings from pt's outpatient records (7) Glaucoma: (8) Rheumatoid arthritis: Plan: Methotrexate currently on hold due to leg wounds - will continue prednisone and plaquenil (9) Iron deficiency anemia: (10) Venous stasis ulcers: Plan: Wound care consult Right leg cellulitis Extensive antibiotic allergy noted. started linezolid 600mg BID, anticipate 7 day course. (11) Hepatocellular carcinoma: Plan: OP follow up Plan Code status: Full code but no prolonged heroic measures. Son is her POA DVT Prophylaxis: Lovenox Disposition-- Evaluated by PT/OT, rehab recommended Admission and Anticipated Discharge Date Admission Date: November 05, 2022 Subjective Still very volume overloaded Feels unsteady on his feet Review of Systems Review of Systems: as above Physical Exam Physical Exam: obese, no acute distress Respiratory: breathing comfortably, no wheezing/rhonchi Cardiovascular: regular rate and rhythm, no murmurs/rubs/gallopos Gastrointestinal (Abdomen): soft, non tender Musculoskeletal: 2+ edema Skin: bilateral lower extremity with skin tears, drainage, redness improved Neurologic: awake, alert, spontaneously moving extremities Results & Data Results & Data Vital Signs (Past 12 Hours) Vital Signs Temp Pulse Resp BP Pulse Ox O2 Del Method O2 Flow Rate 11/09/22 14:58 36.4 C L 78 18 111/72 98 Nasal Cannula 1.5 11/09/22 08:00 Nasal Cannula 2 11/09/22 11:10 36.5 C 87 20 115/73 97 Nasal Cannula 1.5 11/09/22 07:44 36.3 C L 68 18 116/74 100 Nasal Cannula 1.5
[2022-11-09] MEDS ORDERED: CALCIUM CARBONATE 500 MG CHEWABLE TAB PO PRN (18:42)
[2022-11-09] MEDS: ACETAMINOPHEN 500 MG TAB PO SCH (20:38)
[2022-11-09] MEDS: CYANOCOBALAMIN (B-12) 500 MCG TABLET PO SCH (20:40)
[2022-11-09] MEDS: ATORVASTATIN 40 MG TAB PO SCH (20:41)
[2022-11-09] MEDS: HYDROXYCHLOROQUINE SULFATE 200 MG TAB PO SCH (20:42)
[2022-11-09] MEDS: TAMSULOSIN HCL 0.4 MG CAP PO SCH (20:43)
[2022-11-09] MEDS: LATANOPROST 0.005% OP SOLN 2.5 ML BTL OPB SCH (20:48)
[2022-11-09] MEDS: NETARSUDIL MESYLATE 37 DROPS/2.5 ML BTL OPL SCH (20:48)
[2022-11-09] MEDS: LORazepam 0.5 MG TAB PO PRN (23:33)
[2022-11-09] MEDS: MELATONIN 3 MG TAB PO SCH (23:33)
[2022-11-10 00:02] LABS: Babesia microti DNA Not Detected (Not Detected)
[2022-11-10] MEDS: LEVOTHYROXINE SODIUM 125 MCG TABLET PO SCH (06:04)
[2022-11-10] MEDS: LORazepam 0.5 MG TAB PO PRN ×2 (06:04→23:17)
[2022-11-10 06:28] LABS: BUN Creatinine Ratio 28.2 (10-20); Creatinine Clr Calc Pharmacy 56.3 ml/min; Est GFR (African American) 53.9 ml/min; Est GFR (Non-African American) 46.5 ml/min; Potassium 3.9 mmol/L (3.5-5.1)
[2022-11-10] MEDS: predniSONE 5 MG TAB PO SCH (09:08)
[2022-11-10] MEDS: PANCREAZE (LIPASE 4,200U) CAP PO SCH ×4 (09:09→21:00)
[2022-11-10] MEDS: ADVANCED PROBIOTIC 1250 MG CAPSULE PO SCH (09:09)
[2022-11-10] MEDS: METOPROLOL SUCC 25MG EXT REL TAB PO SCH ×2 (09:09→21:02)
[2022-11-10] MEDS: PANCREAZE (LIPASE 10,500U) CAP PO SCH ×4 (09:09→21:05)
[2022-11-10] MEDS: BRIMONIDINE TARTRATE 0.2% 5ML OPL SCH ×2 (09:09→20:59)
[2022-11-10] MEDS: MAGNESIUM OXIDE 400 MG TAB PO SCH ×2 (09:09→21:04)
[2022-11-10] MEDS: CLOPIDOGREL BISULFATE 75 MG TAB PO SCH (09:09)
[2022-11-10] MEDS: CEROVITE ADV FORMULA TAB PO SCH (09:09)
--- NOTE | 2022-11-10 09:09 | Cardiology Progress Note ---
Date of Service November 10, 2022 Assessment & Plan (1) Acute on chronic combined systolic (congestive) and diastolic (congestive) heart failure: (2) Aortic stenosis: (3) CKD (chronic kidney disease): Plan 72-year-old female admitted with acute on chronic heart failure with primarily right-sided signs/symptoms. Patient receiving IV furosemide, remains volume overloaded. RECOMMENDATIONS: Increase furosemide to 80 mg IV twice daily. Resume spironolactone 12.5 mg/day. Supplement potassium as indicated. Follow daily weights, fluid balance, GFR, and electrolytes. Patient is not chronically anticoagulated due to bleeding risk. Continue dual antiplatelet therapy with history of drug-eluting stent implantation to the mid LAD March 2022. Further evaluation of severe versus pseudo-aortic stenosis as scheduled with transesophageal echocardiogram and dobutamine stress echocardiography in the outpatient setting once discharged. Admission and Anticipated Discharge Date Admission Date: November 05, 2022 Supervising Physician Co-Signing Physician Notes Supervising Physician Attestation: I have personally performed a history and physical examination on the patient. I agree with the physician bilingual sales assistant's findings and plan as documented with the following additions. Subjective: Patient feeling subjectively improved Exam: Cardiovascular: Regular rhythm, 1/6 systolic murmur, 1-2+ lower extreme edema Data: EKG 11/05/2022: Atrial fibrillation at 70 bpm with occasional ventricular paced beats Assessment and Plan: Acute on chronic heart failure with reduced ejection fraction Agree with increasing furosemide to 80 mg IV twice a day. DVT prophylaxis: Subcutaneous Lovenox Luigi Donovan, Subjective Patient seen and examined. Chart, medications, and telemetry reviewed. Breathing is a little tight this morning. 6 bouts of diarrhea yesterday. No chest pain. No palpitations. No orthopnea or PND. No dizziness. No subjective fevers or chills. I/O's: -3,245 mL's overall. Telemetry: Paced, rates 60's to 90's over the last 24 hours Review of Systems Review of Systems: Complete review of systems is otherwise as stated above, negative, noncontributory Physical Exam Physical Exam: Examined while laying in bed at 20 degrees General: Alert, no distress, well nourished, well developed, comfortable and cooperative HENT: Normocephalic. Atraumatic. Neck: Bilateral carotid bruits. No overt JVD. Heart: Distant heart sounds. Regular at 70 bpm. Grade II/ systolic murmur. Apical systolic murmur. No diastolic murmur. No rub. Lungs: Clear to auscultation. No wheeze. Abdomen: +BS. Distended. Nontender. No masses. Extremities: Dressing not removed. 1-2+ pitting edema above dressings. No clubbing. No cyanosis Pulses: radial=2/4, posterior tibial=0/4. Limited neurological examination: No focal deficit. Results & Data Vital Signs (Past 12 Hours) Vital Signs Temp Pulse Pulse Resp BP Pulse Ox O2 Del Method 11/10/22 08:10 36.3 C L 75 19 103/64 98 Nasal Cannula 11/10/22 02:49 36.6 C 69 20 105/69 99 Nasal Cannula 11/09/22 23:06 36.5 C 70 18 117/83 99 Nasal Cannula 11/09/22 23:00 73 O2 Flow Rate 11/10/22 08:10 2.0 11/10/22 02:49 1.5 11/09/22 23:06 1.5 11/09/22 23:00 Laboratory Results Comprehensive Metabolic Panel 11/10/22 Range/Units 05:38 Sodium 139 (136-145) mmol/L Potassium 3.9 (3.5-5.1) mmol/L Chloride 101 (98-107) mmol/L Carbon Dioxide 32 (21-32) mmol/L BUN 33 H (6-23) mg/dl Creatinine 1.17 (0.6-1.2) mg/dl Glucose 95 (70-99(Fasting)) mg/dl Calcium 9.0 (8.6-10.3) mg/dl Intake and Output 11/09/22 11/10/22 11/10/22 22:59 06:59 14:59 Intake Total 1560 / 1660 100 / 1660 Output Total 1050 / 1550 500 / 1550 Balance 510 / 110 -400 / 110 Intake: Oral 1560 / 1660 100 / 1660 Output: Urine Amount (Catheter) 1050 / 1550 500 / 1550 Red/Indwelling 1050 / 1550 500 / 1550 Other: Weight 124.8 kg Weight Measurement Method Built in [facility]
[2022-11-10] MEDS: GABAPENTIN 400 MG CAP PO SCH ×3 (09:10→21:01)
[2022-11-10] MEDS: ASPIRIN 81 MG ECTAB PO SCH (09:10)
[2022-11-10] MEDS: POTASSIUM CHLORIDE CRTAB 20 MEQ TABCR PO SCH ×2 (09:10→21:03)
[2022-11-10] MEDS: FOLIC ACID 1 MG TAB PO SCH (09:10)
[2022-11-10] MEDS: ASCORBIC ACID 500 MG TAB PO SCH (09:11)
[2022-11-10] MEDS: FLUTICASONE PROPIONATE NA SPR 16 GM BTL SCH (09:11)
[2022-11-10] MEDS: PANTOprazole 40 MG TAB PO SCH (09:11)
[2022-11-10] MEDS: FERROUS SULFATE 325 MG TAB PO SCH (09:11)
[2022-11-10] MEDS: LINEZOLID 600 MG TAB PO SCH ×2 (09:11→21:05)
[2022-11-10] MEDS: BETAXOLOL HCL 0.5% OPL SCH ×2 (09:12→20:59)
[2022-11-10] MEDS: CLOTRIMAZOLE 1% CR 15 GM TUBE EXT SCH ×2 (09:13→20:59)
[2022-11-10] MEDS: ENOXAPARIN INJ 40 MG/0.4 ML SYR SQ SCH (09:13)
[2022-11-10] MEDS: ERYTHROMYCIN OP OINT 5 MG/GM 3.5 GM TUBE OPB SCH ×4 (09:14→21:04)
[2022-11-10] MEDS: INSULIN ASPART PER UNIT CHARGE SC SCH ×4 (09:20→21:00)
[2022-11-10] MEDS: LANTUS PER UNIT CHARGE SQ SCH ×2 (09:23→20:59)
[2022-11-10] MEDS: FUROSEMIDE 40 MG/4 ML VIAL IV SCH ×3 (09:23→21:02)
[2022-11-10] MEDS: SPIRONOLACTONE 12.5 MG TAB PO SCH (10:08)
--- NOTE | 2022-11-10 14:38 | Hospitalist Progress Note ---
Date of Service November 10, 2022 Assessment & Plan (1) Acute on chronic combined systolic (congestive) and diastolic (congestive) heart failure: Plan: This is a 72 y/o with a complicated medical history including combined systolic and diastolic heart failure, CAD s/p PCI with WALTER, aortic stenosis (suspected severe), tachy-wilfrido syndrome s/p PPM in 2021, persistent afib since 07/01, bilateral carotid bruits, insulin-requiring DM, blindness, rheumatoid arthritis, chronic prednisone use, LAQUITA on CPAP, CKD3a, hypothyroidism, HTN, open-angle glaucoma, and recurrent liver cancer s/p recent placement of radiation beads. Presented with progressive shortness of breath over 5 weeks which did not improve even with increasing diuretics Her leg edema has been seeping liquid constantly Started with Lasix 40mg IV BID--> increased to lasix 60mg BID 11/08 40lb over ideal weight Appreciate cardiology input and recommendation Lasix has been increased to 80 mg IV twice daily and added spironolactone 12.5 mg daily with supplemental potassium as needed Negative balance of more than 3 L so far and will continue monitor intake and output Clinically a little better today 12-01 (2) Tinea corporis: Plan: Rash on left knee seems most consistent with tinea corporis - Started clotrimazole 1% cream BID for a 14 days course (3) Chronic kidney disease, stage 3: Plan: monitor Cr with diuresis Creatinine remains stable with normal electrolytes (4) Diabetes mellitus, type 2: Plan: Basal and sliding scale insulin Diabetic diet (5) Hypothyroidism: Plan: Continue replacement (6) Sleep apnea: Plan: CPAP ordered - settings from pt's outpatient records (7) Glaucoma: (8) Rheumatoid arthritis: Plan: Methotrexate currently on hold due to leg wounds - will continue prednisone and plaquenil (9) Iron deficiency anemia: (10) Venous stasis ulcers: Plan: Wound care consult She has chronic LE wounds for which she is following with wound care but she has been told that until the fluid overload is improved, her wounds will be unlikely to heal. Right leg cellulitis Extensive antibiotic allergy noted. Started linezolid 600mg BID, anticipate 7 day course. (11) Hepatocellular carcinoma: Plan: OP follow up Plan Code status: Full code but no prolonged heroic measures. Son is her POA DVT Prophylaxis: Lovenox Disposition-- Evaluated by PT/OT, rehab recommended Admission and Anticipated Discharge Date Admission Date: November 05, 2022 Subjective 11/10/2022 The patient was seen and examined in telemetry unit She has been feeling much better and denies any shortness of breath at rest She still gets shortness of breath with minimal exertion Denies any chest pain and/or palpitation and the leg swelling has been improving Review of Systems Review of Systems: All systems reviewed and are unremarkable except as noted below Physical Exam Physical Exam: Lying in bed comfortably Constitutional: well developed, well nourished, + ill appearing and + morbidly obese Eyes: PERRL, conjunctivae normal, anicteric sclerae ENMT: external ear and nose normal, oropharynx normal Neck: trachea midline, no thyromegaly Respiratory: no respiratory distress Auscultation: + diminished lung sounds and + crackles (Bibasal crackles) Cardiovascular: Rate/Rhythm: regular rate and regular rhythm; not tachycardic Heart Sounds: normal S1 and normal S2; no murmur Extremities: + edema (2+ edema bilaterally with seeping of fluid) Gastrointestinal (Abdomen): Inspection/Auscultation: + abdomen distended and normal bowel sounds Percussion/Palpation: abdomen soft; abdomen nontender Musculoskeletal: No acute arthritis involving any joint Neurologic: normal touch/pain/proprioception and moves all extremities; no focal motor deficits Psychiatric: A+Ox3, euthymic affect Lymphatic: no cervical or axillary lymphadenopathy Results & Data Results & Data Vital Signs (Past 12 Hours) Vital Signs Temp Pulse Resp BP Pulse Ox O2 Del Method O2 Flow Rate 11/10/22 11:59 36.9 C 77 18 118/67 97 Nasal Cannula 2.0 11/10/22 10:22 74 11/10/22 08:00 Nasal Cannula 2 11/10/22 08:10 36.3 C L 75 19 103/64 98 Nasal Cannula 2.0 11/10/22 02:49 36.6 C 69 20 105/69 99 Nasal Cannula 1.5 Laboratory Results [facility] 11/10/22 05:38 Sodium 139 Potassium 3.9 Chloride 101 Carbon Dioxide 32 BUN 33 H Creatinine 1.17 Glucose 95 Calcium 9.0 Medications Administered Current Inpatient Medications Acetaminophen (Acetaminophen 325 Mg Tab) 650 mg PO Q4H PRN PRN Reason: Pain or Fever Stop: 12/05/22 18:39 Last Admin: 11/06/22 08:40 Dose: 650 mg Acetaminophen (Acetaminophen 500 Mg Tab) 1,000 mg PO HS [facility] Stop: 12/05/22 20:59 Last Admin: 11/09/22 20:38 Dose: 1,000 mg Lipase/Protease/Amylase (Pancreaze (Lipase 10,500u) Cap) 2 cap PO QIDM [facility] Stop: 12/05/22 20:59 Last Admin: 11/10/22 12:49 Dose: 2 cap Lipase/Protease/Amylase (Pancreaze (Lipase 4,200u) Cap) 1 cap PO QIDM [facility] Stop: 12/05/22 20:59 Last Admin: 11/10/22 12:49 Dose: 1 cap Ascorbic Acid ([facility]orbic [facility] 500 Mg Tab) [facility] Stop: 12/06/22 08:59 Last Admin: 11/10/22 09:11 Dose: 500 mg Aspirin (Aspirin 81 Mg Ectab) 81 mg PO [facility] Stop: 12/06/22 08:59 Last Admin: 11/10/22 09:10 Dose: 81 mg Atorvastatin Calcium (Atorvastatin 40 Mg Tab) 40 mg PO [facility] Stop: 12/05/22 20:59 Last Admin: 11/09/22 20:41 Dose: 40 mg Betaxolol HCl (Betaxolol Hcl 0.5% Op 5 Ml Btl) 1 drops OPL [facility] Stop: 12/05/22 20:59 Last Admin: 11/10/22 09:12 Dose: 1 drops Brimonidine Tartrate (Brimonidine Tartrate 0.2% 5ml) 1 drops OPL BID [facility] Stop: 12/05/22 20:59 Last Admin: 11/10/22 09:09 Dose: 1 drops Calcium Carbonate (Calcium Carbonate 500 Mg Chewable Tab) 500 mg PO QID PRN PRN Reason: Indigestion Stop: 12/09/22 18:41 Clopidogrel Bisulfate (Clopidogrel Bisulfate 75 Mg Tab) [facility] Stop: 12/06/22 08:59 Last Admin: 11/10/22 09:09 Dose: 75 mg Clotrimazole (Clotrimazole 1% Cr 15 Gm Tube) 1 appln EXT BID [facility] Stop: 11/19/22 20:59 Last Admin: 11/10/22 09:13 Dose: 1 appln Cyanocobalamin (Cyanocobalamin (B-12) 500 Mcg Tablet) 1,500 mcg PO QPM [facility] Stop: 12/05/22 20:59 Last Admin: 11/09/22 20:40 Dose: 1,500 mcg Dextrose (Dextrose 50% 50 Ml Syringe) 25 - 50 ml IV UD PRN; Protocol PRN Reason: Hypoglycemia Protocol Stop: 12/05/22 17:38 Enoxaparin Sodium (Enoxaparin Inj 40 Mg/0.4 Ml Syr) 40 mg SQ QAM [facility] Stop: 12/06/22 08:59 Last Admin: 11/10/22 09:13 Dose: 40 mg Erythromycin (Erythromycin Op Oint 5 Mg/Gm 3.5 Gm Tube) 1 appln OPB QID [facility] Stop: 11/15/22 20:59 Last Admin: 11/10/22 12:50 Dose: 1 appln Ferrous Sulfate (Ferrous Sulfate 325 Mg Tab) 325 mg PO DAILY [facility] Stop: 12/06/22 08:59 Last Admin: 11/10/22 09:11 Dose: 325 mg Fluticasone Propionate (Fluticasone Propionate Na Spr 16 Gm Btl) 2 sprays NA QAM [facility] Stop: 12/06/22 08:59 Last Admin: 11/10/22 09:11 Dose: 2 sprays Folic Acid (Folic Acid 1 Mg Tab) 1 mg PO QAM [facility] Stop: 12/06/22 08:59 Last Admin: 11/10/22 09:10 Dose: 1 mg Furosemide (Furosemide 40 Mg/4 Ml Vial) 80 mg IV BID [facility] Stop: 12/10/22 09:29 Last Admin: 11/10/22 09:23 Dose: 80 mg Gabapentin (Gabapentin 400 Mg Cap) 400 mg PO TID [facility] Stop: 12/05/22 20:59 Last Admin: 11/10/22 12:50 Dose: 400 mg Glucagon (Glucagon For Inj 1 Mg Vial) 1 mg SQ UD PRN; Protocol PRN Reason: Hypoglycemia Protocol Stop: 12/05/22 17:38 Glucose (Glucose 10 Tab/Tube) 4 - 8 tab PO UD PRN; Protocol PRN Reason: Hypoglycemia Treatment Stop: 12/05/22 17:38 Glucose (Glucose 40% Gel 15 Gm Tube) 15 - 30 gm PO UD PRN; Protocol PRN Reason: Hypoglycemia Protocol Stop: 12/05/22 17:38 Hydroxychloroquine Sulfate (Hydroxychloroquine Sulfate 200 Mg Tab) 400 mg PO HS [facility] Stop: 12/05/22 20:59 Last Admin: 11/09/22 20:42 Dose: 400 mg Insulin Aspart (Insulin Aspart Per Unit Charge) 0 units SC ACHS [facility] Stop: 12/05/22 20:59 Last Admin: 11/10/22 12:48 Dose: 11 units Insulin Glargine (Lantus Per Unit Charge) 15 units SQ BID [facility] Stop: 12/05/22 20:59 Last Admin: 11/10/22 09:23 Dose: 15 units Lactobacillus Acidophilus (Advanced Probiotic 1250 Mg Capsule) 1 cap PO QAM [facility] Stop: 12/06/22 08:59 Last Admin: 11/10/22 09:09 Dose: 1 cap Latanoprost (Latanoprost 0.005% Op Soln 2.5 Ml Btl) 1 drops OPB HS [facility] Stop: 12/05/22 20:59 Last Admin: 11/09/22 20:48 Dose: 1 drops Levothyroxine Sodium (Levothyroxine Sodium 125 Mcg Tablet) 125 mcg PO DAILYBB [facility] Stop: 12/06/22 06:29 Last Admin: 11/10/22 06:04 Dose: 125 mcg Linezolid (Linezolid 600 Mg Tab) 600 mg PO BID [facility] Stop: 11/13/22 20:59 Last Admin: 11/10/22 09:11 Dose: 600 mg Lorazepam (Lorazepam 0.5 Mg Tab) 0.5 mg PO TID PRN PRN Reason: Anxiety Stop: 12/05/22 19:50 Last Admin: 11/10/22 06:04 Dose: 0.5 mg Magnesium Oxide (Magnesium Oxide 400 Mg Tab) 400 mg PO BID [facility] Stop: 12/06/22 20:59 Last Admin: 11/10/22 09:09 Dose: 400 mg Melatonin (Melatonin 3 Mg Tab) 6 mg PO HS [facility] Stop: 12/05/22 20:59 Last Admin: 11/09/22 23:33 Dose: 6 mg Metoprolol Succinate (Metoprolol Succ 25mg Ext Rel Tab) 25 mg PO BID [facility] Stop: 12/05/22 20:59 Last Admin: 11/10/22 09:09 Dose: 25 mg Miscellaneous (Carbohydrates For Hypoglycemia ) 15 - 30 gm PO UD PRN PRN Reason: Hypoglycemia Protocol Stop: 12/05/22 17:38 Multivitamins/Minerals (Cerovite Adv Formula Tab) 1 tab PO QAM [facility] Stop: 12/06/22 08:59 Last Admin: 11/10/22 09:09 Dose: 1 tab Netarsudil (Netarsudil Mesylate 37 Drops/2.5 Ml Btl) 1 drops OPL HS [facility] Stop: 12/06/22 20:59 Last Admin: 11/09/22 20:48 Dose: 1 drops Nitroglycerin (Nitroglycerin Sl 0.4 Mg/Tab Tab) 0.4 mg SL Q5M PRN PRN Reason: Chest Pain Stop: 12/05/22 18:39 Nystatin (Nystatin Powder 15gm Btl) 1 appln EXT TID PRN PRN Reason: irritation Stop: 12/05/22 19:50 Last Admin: 11/07/22 21:52 Dose: 1 appln Pantoprazole Sodium (Pantoprazole 40 Mg Tab) 40 mg PO QAM [facility] Stop: 12/06/22 08:59 Last Admin: 11/10/22 09:11 Dose: 40 mg Potassium Chloride (Potassium Chloride Crtab 20 Meq Tabcr) 20 meq PO BID [facility] Stop: 12/06/22 20:59 Last Admin: 11/10/22 09:10 Dose: 20 meq Prednisone (Prednisone 5 Mg Tab) 5 mg PO QAM [facility] Stop: 12/06/22 08:59 Last Admin: 11/10/22 09:08 Dose: 5 mg Spironolactone (Spironolactone 12.5 Mg Tab) 12.5 mg PO DAILY [facility] Stop: 12/10/22 09:29 Last Admin: 11/10/22 10:08 Dose: 12.5 mg Tamsulosin HCl (Tamsulosin Hcl 0.4 Mg Cap) 0.4 mg PO HS [facility] Stop: 12/05/22 20:59 Last Admin: 11/09/22 20:43 Dose: 0.4 mg
[2022-11-10] MEDS: NETARSUDIL MESYLATE 37 DROPS/2.5 ML BTL OPL SCH (20:58)
[2022-11-10] MEDS: LATANOPROST 0.005% OP SOLN 2.5 ML BTL OPB SCH (20:58)
[2022-11-10] MEDS: ACETAMINOPHEN 500 MG TAB PO SCH (21:00)
[2022-11-10] MEDS: CYANOCOBALAMIN (B-12) 500 MCG TABLET PO SCH (21:01)
[2022-11-10] MEDS: ATORVASTATIN 40 MG TAB PO SCH (21:02)
[2022-11-10] MEDS: TAMSULOSIN HCL 0.4 MG CAP PO SCH (21:03)
[2022-11-10] MEDS: HYDROXYCHLOROQUINE SULFATE 200 MG TAB PO SCH (21:03)
[2022-11-10 22:07] LABS: Ehrlichia chaff DNA Bld Negative (Negative)
[2022-11-10] MEDS: MELATONIN 3 MG TAB PO SCH (23:17)
[2022-11-11] MEDS: LEVOTHYROXINE SODIUM 125 MCG TABLET PO SCH (05:57)
[2022-11-11 06:50] LABS: Basophils # (auto) 0.03 K/uL (0-0.2); Basophils % (auto) 0.4 %; Eosinophils # (auto) 0.08 K/uL (0-0.50); Eosinophils % (auto) 1.1 %; Hematocrit (blood only) 39.6 % (37.0-47.0); Hemoglobin 12.3 g/dl (12.0-16.0); Immature Granulocytes # (auto) 0.02 K/uL (0.01-0.20); Immature Granulocytes % (auto) 0.3 %; Lymphocytes # (auto) 0.57 K/uL (1.2-3.4); Lymphocytes % (auto) 7.5 %; Mean Corpuscular Hemoglobin 27.8 pg (25.0-34.0); Mean Corpuscular Hgb Conc 31.1 g/dL (32.0-36.0); Mean Corpuscular Volume 89.6 fL (80.0-100.0); Mean Platelet Volume 11.2 fL (9.4-12.4); Monocytes # (auto) 0.64 K/uL (0.11-0.59); Monocytes % (auto) 8.4 %; Neutrophils # (auto) 6.24 K/uL (1.40-6.50); Neutrophils % (auto) 82.3 %; Platelet Count 105 K/uL (130-400); RDW Coefficient of Variation 17.2 % (11.5-14.5); Red Blood Count 4.42 M/uL (4.20-5.40); White Blood Count 7.58 K/ul (4.8-10.8)
[2022-11-11 07:07] LABS: BUN Creatinine Ratio 30.5 (10-20); Calcium 9.3 mg/dl (8.6-10.3); Creatinine Clr Calc Pharmacy 56.1 ml/min; Est GFR (African American) 53.4 ml/min
[2022-11-11] MEDS: LINEZOLID 600 MG TAB PO SCH ×2 (07:47→21:18)
[2022-11-11] MEDS: POTASSIUM CHLORIDE CRTAB 20 MEQ TABCR PO SCH ×2 (07:48→21:17)
[2022-11-11] MEDS: ASPIRIN 81 MG ECTAB PO SCH (07:48)
[2022-11-11] MEDS: FERROUS SULFATE 325 MG TAB PO SCH (07:48)
[2022-11-11] MEDS: CLOPIDOGREL BISULFATE 75 MG TAB PO SCH (07:48)
[2022-11-11] MEDS: METOPROLOL SUCC 25MG EXT REL TAB PO SCH ×2 (07:48→21:13)
[2022-11-11] MEDS: CEROVITE ADV FORMULA TAB PO SCH (07:48)
[2022-11-11] MEDS: MAGNESIUM OXIDE 400 MG TAB PO SCH ×2 (07:48→21:15)
[2022-11-11] MEDS: ADVANCED PROBIOTIC 1250 MG CAPSULE PO SCH (07:48)
[2022-11-11] MEDS: predniSONE 5 MG TAB PO SCH (07:48)
[2022-11-11] MEDS: ASCORBIC ACID 500 MG TAB PO SCH (07:48)
[2022-11-11] MEDS: SPIRONOLACTONE 12.5 MG TAB PO SCH (07:49)
[2022-11-11] MEDS: FOLIC ACID 1 MG TAB PO SCH (07:49)
[2022-11-11] MEDS: GABAPENTIN 400 MG CAP PO SCH ×3 (07:49→21:11)
[2022-11-11] MEDS: PANCREAZE (LIPASE 10,500U) CAP PO SCH ×4 (07:49→21:10)
[2022-11-11] MEDS: PANCREAZE (LIPASE 4,200U) CAP PO SCH ×4 (07:49→21:10)
[2022-11-11] MEDS: CLOTRIMAZOLE 1% CR 15 GM TUBE EXT SCH ×2 (07:50→21:24)
[2022-11-11] MEDS: FLUTICASONE PROPIONATE NA SPR 16 GM BTL SCH (07:50)
[2022-11-11] MEDS: ENOXAPARIN INJ 40 MG/0.4 ML SYR SQ SCH (07:50)
[2022-11-11] MEDS: BETAXOLOL HCL 0.5% OPL SCH ×2 (07:51→21:24)
[2022-11-11] MEDS: ERYTHROMYCIN OP OINT 5 MG/GM 3.5 GM TUBE OPB SCH ×4 (07:51→21:24)
[2022-11-11] MEDS: BRIMONIDINE TARTRATE 0.2% 5ML OPL SCH ×2 (07:51→21:23)
[2022-11-11] MEDS: FUROSEMIDE 40 MG/4 ML VIAL IV SCH ×2 (07:52→21:18)
[2022-11-11] MEDS: INSULIN ASPART PER UNIT CHARGE SC SCH ×4 (08:12→21:06)
[2022-11-11] MEDS: PANTOprazole 40 MG TAB PO SCH (08:13)
[2022-11-11] MEDS: LANTUS PER UNIT CHARGE SQ SCH ×2 (08:13→21:28)
--- NOTE | 2022-11-11 11:34 | Cardiology Progress Note ---
Date of Service November 11, 2022 Assessment & Plan (1) Acute on chronic combined systolic (congestive) and diastolic (congestive) heart failure: (2) Aortic stenosis: (3) CKD (chronic kidney disease): Plan 72-year-old female admitted with acute on chronic heart failure with primarily right-sided signs/symptoms. Patient receiving IV furosemide, with gradually improving volume overload. RECOMMENDATIONS: Continue furosemide 80 mg IV twice daily and spironolactone at 12.5 mg/day. Supplement potassium as indicated. Follow daily weights, fluid balance, GFR, and electrolytes. Patient is not chronically anticoagulated due to bleeding risk. Continue dual antiplatelet therapy with history of drug-eluting stent implantation to the mid LAD March 2022. Evaluation of severe versus pseudo-aortic stenosis as scheduled with transesophageal echocardiogram and dobutamine stress echocardiography as an outpatient. Admission and Anticipated Discharge Date Admission Date: November 05, 2022 Supervising Physician Co-Signing Physician Notes Patient seen and examined at the bedside. Edema improving. Negative fluid balance. Renal function stable.Offers no new concerns/complaints. PE: Gen: NAD, awake, alert, oriented x3. Heart: Irregular rhythm, normal S1-S2. 2/6 systolic ejection murmur heard at the base. Lungs: Diminished breath sounds at the bases bilateral. No rales, rhonchi, wheeze. Extremities: 1+ bilateral pretibial edema with 2+ edema of her abdomen. A/P: Agree with above PA-C history, physical exam, assessment and plan. Continue furosemide 80 mg twice daily and Aldactone. Follow daily weight, fluid balance, and electrolytes. Further evaluation of aortic stenosis in the outpatient setting as noted above. Subjective Patient seen and examined. Chart, medications, and telemetry reviewed. Feeling better today. Improved dyspnea. Less oozing of fluid. Only one loose BM this AM. No chest pain. No palpitations. No orthopnea or PND. No dizziness. No subjective fevers or chills. I/O's: -910 mL's the last 24 hours, -4,155 mL's overall. Telemetry: Paced, rates 60's-70's predominately. Review of Systems Review of Systems: Complete review of systems is otherwise as stated above, negative, noncontributory Physical Exam Physical Exam: Examined in the bedside chair. General: Alert, no distress, well nourished, well developed, comfortable and cooperative HENT: Normocephalic. Atraumatic. Neck: Bilateral carotid bruits. No overt JVD. Heart: Distant heart sounds. Regular at 70 bpm. Grade II/ systolic murmur. Apical systolic murmur. No diastolic murmur. No rub. Lungs: Clear to auscultation. No wheeze. Abdomen: +BS. Distended. Nontender. No masses. Extremities: Dressings not removed. 1+ pitting edema. No clubbing. No cyanosis Pulses: radial=2/4, posterior tibial=0/4. Skin: + Fungal appearing rrash on lower extremities. Limited neurological examination: No focal deficit. Results & Data Vital Signs (Past 12 Hours) Vital Signs Temp Pulse Resp BP Pulse Ox O2 Del Method O2 Flow Rate 11/11/22 09:18 36.3 C L 70 20 127/81 100 Room Air 11/11/22 08:00 Nasal Cannula 11/11/22 08:00 78 11/11/22 03:25 36.6 C 82 16 102/68 99 Nasal Cannula 2 11/10/22 23:43 36.4 C L 65 20 119/74 99 Nasal Cannula 2 Laboratory Results CBC 11/11/22 Range/Units 06:06 WBC 7.58 (4.8-10.8) K/ul RBC 4.42 (4.20-5.40) M/uL Hgb 12.3 (12.0-16.0) g/dl Hct 39.6 (37.0-47.0) % Plt Count 105 L (130-400) K/uL Neut # (Auto) 6.24 (1.40-6.50) K/uL Lymph # (Auto) 0.57 L (1.2-3.4) K/uL Blount # (Auto) 0.64 H (0.11-0.59) K/uL Eos # (Auto) 0.08 (0-0.50) K/uL Baso # (Auto) 0.03 (0-0.2) K/uL Comprehensive Metabolic Panel 11/11/22 Range/Units 06:06 Sodium 140 (136-145) mmol/L Potassium 4.0 (3.5-5.1) mmol/L Chloride 101 (98-107) mmol/L Carbon Dioxide 34 H (21-32) mmol/L BUN 36 H (6-23) mg/dl Creatinine 1.18 (0.6-1.2) mg/dl Glucose 66 L (70-99(Fasting)) mg/dl Calcium 9.3 (8.6-10.3) mg/dl Intake and Output 11/10/22 11/11/22 11/11/22 22:59 06:59 14:59 Intake Total 0 / 590 50 / 590 Output Total 500 / 1500 350 / 1500 Balance -500 / -910 -300 / -910 Intake: Oral 50 / 590 Other 0 / 0 Output: Urine Amount (Catheter) 500 / 1500 350 / 1500 Red/Indwelling 500 / 1500 350 / 1500 Other: Other Intake Source Sips Weight 125.8 kg 125.8 kg [facility] Weight 11/12/22 06:59 Weight 125.8 kg
--- NOTE | 2022-11-11 15:27 | Hospitalist Progress Note ---
Date of Service November 11, 2022 Assessment & Plan (1) Acute on chronic combined systolic (congestive) and diastolic (congestive) heart failure: Plan: This is a 72 y/o with a complicated medical history including combined systolic and diastolic heart failure, CAD s/p PCI with WALTER, aortic stenosis (suspected severe), tachy-wilfrido syndrome s/p PPM in 2021, persistent afib since 07/01, bilateral carotid bruits, insulin-requiring DM, blindness, rheumatoid arthritis, chronic prednisone use, LAQUITA on CPAP, CKD3a, hypothyroidism, HTN, open-angle glaucoma, and recurrent liver cancer s/p recent placement of radiation beads. Presented with progressive shortness of breath over 5 weeks which did not improve even with increasing diuretics Her leg edema has been seeping liquid constantly Started with Lasix 40mg IV BID--> increased to lasix 60mg BID 11/08 40lb over ideal weight Appreciate cardiology input and recommendation Lasix has been increased to 80 mg IV twice daily and added spironolactone 12.5 mg daily with supplemental potassium as needed Negative balance of more than 3 L so far and will continue monitor intake and output We will continue current doses of diuretics as per the all round logger and the case discussed with the all round logger Has been feeling better and is out of bed on a chair Denies any significant symptoms except weakness We will continue with PT and OT evaluation (2) Tinea corporis: Plan: Rash on left knee seems most consistent with tinea corporis - Started clotrimazole 1% cream BID for a 14 days course (3) Chronic kidney disease, stage 3: Plan: monitor Cr with diuresis Creatinine remains stable with normal electrolytes Creatinine remains stable and electrolytes are normal (4) Diabetes mellitus, type 2: Plan: Basal and sliding scale insulin Diabetic diet Has been having low blood sugar around upper 60s We will decrease Lantus from 15 units twice daily to 10 units twice daily (5) Hypothyroidism: Plan: Continue replacement (6) Sleep apnea: Plan: CPAP ordered - settings from pt's outpatient records (7) Glaucoma: (8) Rheumatoid arthritis: Plan: Methotrexate currently on hold due to leg wounds - will continue prednisone and plaquenil (9) Iron deficiency anemia: (10) Venous stasis ulcers: Plan: Wound care consult She has chronic LE wounds for which she is following with wound care but she has been told that until the fluid overload is improved, her wounds will be unlikely to heal. Right leg cellulitis Extensive antibiotic allergy noted. Started linezolid 600mg BID, anticipate 7 day course. Dressing as per wound care (11) Hepatocellular carcinoma: Plan: OP follow up Plan Code status: Full code but no prolonged heroic measures. Son is her POA DVT Prophylaxis: Lovenox Disposition-- Evaluated by PT/OT, rehab recommended Admission and Anticipated Discharge Date Admission Date: November 05, 2022 Subjective 11/10/2022 The patient was seen and examined in telemetry unit She has been feeling much better and denies any shortness of breath at rest She still gets shortness of breath with minimal exertion Denies any chest pain and/or palpitation and the leg swelling has been improving 11/11/2022 The patient was seen and examined in telemetry unit She has been feeling a lot better but not yet ready to be discharged Denies any significant symptoms She will get PT and OT evaluation Review of Systems Review of Systems: All systems reviewed and are unremarkable except as noted below Physical Exam Physical Exam: Sitting on a chair without any acute distress Constitutional: well developed, well nourished, + ill appearing and + morbidly obese Eyes: PERRL, conjunctivae normal, anicteric sclerae ENMT: external ear and nose normal, oropharynx normal Neck: trachea midline, no thyromegaly Respiratory: no respiratory distress Auscultation: + diminished lung sounds and + crackles (Bibasal crackles) Cardiovascular: Rate/Rhythm: regular rate and regular rhythm; not tachycardic Heart Sounds: normal S1 and normal S2; no murmur Extremities: + edema (2+ edema bilaterally with seeping of fluid) Gastrointestinal (Abdomen): Inspection/Auscultation: + abdomen distended and normal bowel sounds Percussion/Palpation: abdomen soft; abdomen nontender Musculoskeletal: No acute arthritis involving any joint Neurologic: normal touch/pain/proprioception and moves all extremities; no focal motor deficits Psychiatric: A+Ox3, euthymic affect Lymphatic: no cervical or axillary lymphadenopathy Results & Data Results & Data Vital Signs (Past 12 Hours) Vital Signs Temp Pulse Resp BP Pulse Ox O2 Del Method O2 Flow Rate 11/11/22 12:25 36.5 C 93 H 21 103/74 100 Nasal Cannula 2.0 11/11/22 09:18 36.3 C L 70 20 127/81 100 Room Air 11/11/22 08:00 Nasal Cannula 11/11/22 08:00 78 11/11/22 03:25 36.6 C 82 16 102/68 99 Nasal Cannula 2 Laboratory Results Short CBC 11/11/22 Range/Units 06:06 WBC 7.58 (4.8-10.8) K/ul Hgb 12.3 (12.0-16.0) g/dl Hct 39.6 (37.0-47.0) % Plt Count 105 L (130-400) K/uL BMP 11/11/22 06:06 Sodium 140 Potassium 4.0 Chloride 101 Carbon Dioxide 34 H BUN 36 H Creatinine 1.18 Glucose 66 L Calcium 9.3 Medications Administered Current Inpatient Medications Acetaminophen (Acetaminophen 325 Mg Tab) 650 mg PO Q4H PRN PRN Reason: Pain or Fever Stop: 12/05/22 18:39 Last Admin: 11/06/22 08:40 Dose: 650 mg Acetaminophen (Acetaminophen 500 Mg Tab) 1,000 mg PO HS [facility] Stop: 12/05/22 20:59 Last Admin: 11/10/22 21:00 Dose: 1,000 mg Lipase/Protease/Amylase (Pancreaze (Lipase 10,500u) Cap) 2 cap PO QIDM [facility] Stop: 12/05/22 20:59 Last Admin: 11/11/22 11:59 Dose: 2 cap Lipase/Protease/Amylase (Pancreaze (Lipase 4,200u) Cap) 1 cap PO QIDM [facility] Stop: 12/05/22 20:59 Last Admin: 11/11/22 12:00 Dose: 1 cap Ascorbic Acid (Ascorbic Acid 500 Mg Tab) 500 mg PO QAM [facility] Stop: 12/06/22 08:59 Last Admin: 11/11/22 07:48 Dose: 500 mg Aspirin (Aspirin 81 Mg Ectab) 81 mg PO QAM [facility] Stop: 12/06/22 08:59 Last Admin: 11/11/22 07:48 Dose: 81 mg Atorvastatin Calcium (Atorvastatin 40 Mg Tab) 40 mg PO HS [facility] Stop: 12/05/22 20:59 Last Admin: 11/10/22 21:02 Dose: 40 mg Betaxolol HCl (Betaxolol Hcl 0.5% Op 5 Ml Btl) 1 drops OPL [facility] Stop: 12/05/22 20:59 Last Admin: 11/11/22 07:51 Dose: 1 drops Brimonidine Tartrate (Brimonidine Tartrate 0.2% 5ml) 1 drops OPL BID [facility] Stop: 12/05/22 20:59 Last Admin: 11/11/22 07:51 Dose: 1 drops Calcium Carbonate (Calcium Carbonate 500 Mg Chewable Tab) 500 mg PO QID PRN PRN Reason: Indigestion Stop: 12/09/22 18:41 Clopidogrel Bisulfate (Clopidogrel Bisulfate 75 Mg Tab) 75 mg PO QAM [facility] Stop: 12/06/22 08:59 Last Admin: 11/11/22 07:48 Dose: 75 mg Clotrimazole (Clotrimazole 1% Cr 15 Gm Tube) 1 appln EXT BID [facility] Stop: 11/19/22 20:59 Last Admin: 11/11/22 07:50 Dose: 1 appln Cyanocobalamin (Cyanocobalamin (B-12) 500 Mcg Tablet) 1,500 mcg PO QPM [facility] Stop: 12/05/22 20:59 Last Admin: 11/10/22 21:01 Dose: 1,500 mcg Dextrose (Dextrose 50% 50 Ml Syringe) 25 - 50 ml IV UD PRN; Protocol PRN Reason: Hypoglycemia Protocol Stop: 12/05/22 17:38 Enoxaparin Sodium (Enoxaparin Inj 40 Mg/0.4 Ml Syr) 40 mg SQ QAM [facility] Stop: 12/06/22 08:59 Last Admin: 11/11/22 07:50 Dose: 40 mg Erythromycin (Erythromycin Op Oint 5 Mg/Gm 3.5 Gm Tube) 1 appln OPB QID [facility] Stop: 11/15/22 20:59 Last Admin: 11/11/22 12:01 Dose: 1 appln Ferrous Sulfate (Ferrous Sulfate 325 Mg Tab) 325 mg PO DAILY [facility] Stop: 12/06/22 08:59 Last Admin: 11/11/22 07:48 Dose: 325 mg Fluticasone Propionate (Fluticasone Propionate Na Spr 16 Gm Btl) 2 sprays NA QAM [facility] Stop: 12/06/22 08:59 Last Admin: 11/11/22 07:50 Dose: 2 sprays Folic Acid (Folic Acid 1 Mg Tab) 1 mg PO QAM [facility] Stop: 12/06/22 08:59 Last Admin: 11/11/22 07:49 Dose: 1 mg Furosemide (Furosemide 40 Mg/4 Ml Vial) 80 mg IV BID [facility] Stop: 12/10/22 09:29 Last Admin: 11/11/22 07:52 Dose: 80 mg Gabapentin (Gabapentin 400 Mg Cap) 400 mg PO TID [facility] Stop: 12/05/22 20:59 Last Admin: 11/11/22 14:07 Dose: 400 mg Glucagon (Glucagon For Inj 1 Mg Vial) 1 mg SQ UD PRN; Protocol PRN Reason: Hypoglycemia Protocol Stop: 12/05/22 17:38 Glucose (Glucose 10 Tab/Tube) 4 - 8 tab PO UD PRN; Protocol PRN Reason: Hypoglycemia Treatment Stop: 12/05/22 17:38 Glucose (Glucose 40% Gel 15 Gm Tube) 15 - 30 gm PO UD PRN; Protocol PRN Reason: Hypoglycemia Protocol Stop: 12/05/22 17:38 Hydroxychloroquine Sulfate (Hydroxychloroquine Sulfate 200 Mg Tab) 400 mg PO HS [facility] Stop: 12/05/22 20:59 Last Admin: 11/10/22 21:03 Dose: 400 mg Insulin Aspart (Insulin Aspart Per Unit Charge) 0 units SC ACHS [facility] Stop: 12/05/22 20:59 Last Admin: 11/11/22 11:59 Dose: 11 units Insulin Glargine (Lantus Per Unit Charge) 10 units SQ BID [facility] Stop: 12/11/22 20:59 Lactobacillus Acidophilus (Advanced Probiotic 1250 Mg Capsule) 1 cap PO QAM [facility] Stop: 12/06/22 08:59 Last Admin: 11/11/22 07:48 Dose: 1 cap Latanoprost (Latanoprost 0.005% Op Soln 2.5 Ml Btl) 1 drops OPB HS [facility] Stop: 12/05/22 20:59 Last Admin: 11/10/22 20:58 Dose: 1 drops Levothyroxine Sodium (Levothyroxine Sodium 125 Mcg Tablet) 125 mcg PO DAILYBB [facility] Stop: 12/06/22 06:29 Last Admin: 11/11/22 05:57 Dose: 125 mcg Linezolid (Linezolid 600 Mg Tab) 600 mg PO BID [facility] Stop: 11/13/22 20:59 Last Admin: 11/11/22 07:47 Dose: 600 mg Lorazepam (Lorazepam 0.5 Mg Tab) 0.5 mg PO TID PRN PRN Reason: Anxiety Stop: 12/05/22 19:50 Last Admin: 11/10/22 23:17 Dose: 0.5 mg Magnesium Oxide (Magnesium Oxide 400 Mg Tab) 400 mg PO BID [facility] Stop: 12/06/22 20:59 Last Admin: 11/11/22 07:48 Dose: 400 mg Melatonin (Melatonin 3 Mg Tab) 6 mg PO HS [facility] Stop: 12/05/22 20:59 Last Admin: 11/10/22 23:17 Dose: 6 mg Metoprolol Succinate (Metoprolol Succ 25mg Ext Rel Tab) 25 mg PO BID [facility] Stop: 12/05/22 20:59 Last Admin: 11/11/22 07:48 Dose: 25 mg Miscellaneous (Carbohydrates For Hypoglycemia ) 15 - 30 gm PO UD PRN PRN Reason: Hypoglycemia Protocol Stop: 12/05/22 17:38 Multivitamins/Minerals (Cerovite Adv Formula Tab) 1 tab PO QAM [facility] Stop: 12/06/22 08:59 Last Admin: 11/11/22 07:48 Dose: 1 tab Netarsudil (Netarsudil Mesylate 37 Drops/2.5 Ml Btl) 1 drops OPL [facility] Stop: 12/06/22 20:59 Last Admin: 11/10/22 20:58 Dose: 1 drops Nitroglycerin (Nitroglycerin Sl 0.4 Mg/Tab Tab) 0.4 mg SL Q5M PRN PRN Reason: Chest Pain Stop: 12/05/22 18:39 Nystatin (Nystatin Powder 15gm Btl) 1 appln EXT TID PRN PRN Reason: irritation Stop: 12/05/22 19:50 Last Admin: 11/07/22 21:52 Dose: 1 appln Pantoprazole Sodium (Pantoprazole 40 Mg Tab) 40 mg PO QAM [facility] Stop: 12/06/22 08:59 Last Admin: 11/11/22 08:13 Dose: 40 mg Potassium Chloride (Potassium Chloride Crtab 20 Meq Tabcr) 20 meq PO BID [facility] Stop: 12/06/22 20:59 Last Admin: 11/11/22 07:48 Dose: 20 meq Prednisone (Prednisone 5 Mg Tab) 5 mg PO QAM [facility] Stop: 12/06/22 08:59 Last Admin: 11/11/22 07:48 Dose: 5 mg Spironolactone (Spironolactone 12.5 Mg Tab) 12.5 mg PO DAILY [facility] Stop: 12/10/22 09:29 Last Admin: 11/11/22 07:49 Dose: 12.5 mg Tamsulosin HCl (Tamsulosin Hcl 0.4 Mg Cap) 0.4 mg PO HS [facility] Stop: 12/05/22 20:59 Last Admin: 11/10/22 21:03 Dose: 0.4 mg
[2022-11-11] MEDS: ACETAMINOPHEN 500 MG TAB PO SCH (21:10)
[2022-11-11] MEDS: CYANOCOBALAMIN (B-12) 500 MCG TABLET PO SCH (21:12)
[2022-11-11] MEDS: ATORVASTATIN 40 MG TAB PO SCH (21:12)
[2022-11-11] MEDS: LATANOPROST 0.005% OP SOLN 2.5 ML BTL OPB SCH (21:13)
[2022-11-11] MEDS: MELATONIN 3 MG TAB PO SCH (21:14)
[2022-11-11] MEDS: TAMSULOSIN HCL 0.4 MG CAP PO SCH (21:15)
[2022-11-11] MEDS: HYDROXYCHLOROQUINE SULFATE 200 MG TAB PO SCH (21:17)
[2022-11-11] MEDS: NETARSUDIL MESYLATE 37 DROPS/2.5 ML BTL OPL SCH (21:23)
[2022-11-11] MEDS ORDERED: COUGH DROP (SUGAR FREE) LOZ 24 LOZ/1 BOX BUCCAL PRN (22:50)
[2022-11-11] MEDS: LORazepam 0.5 MG TAB PO PRN (23:25)
[2022-11-12] MEDS: LEVOTHYROXINE SODIUM 125 MCG TABLET PO SCH (05:23)
[2022-11-12 06:08] LABS: Basophils # (auto) 0.02 K/uL (0-0.2); Basophils % (auto) 0.3 %; Hematocrit (blood only) 36.8 % (37.0-47.0); Hemoglobin 11.5 g/dl (12.0-16.0); Immature Granulocytes # (auto) 0.01 K/uL (0.01-0.20); Immature Granulocytes % (auto) 0.1 %; Lymphocytes # (auto) 0.53 K/uL (1.2-3.4); Lymphocytes % (auto) 7.7 %; Mean Corpuscular Hemoglobin 27.9 pg (25.0-34.0); Mean Corpuscular Hgb Conc 31.3 g/dL (32.0-36.0); Mean Corpuscular Volume 89.3 fL (80.0-100.0); Mean Platelet Volume 11.1 fL (9.4-12.4); Monocytes # (auto) 0.56 K/uL (0.11-0.59); Monocytes % (auto) 8.2 %; Neutrophils # (auto) 5.73 K/uL (1.40-6.50); Neutrophils % (auto) 83.7 %; Platelet Count 102 K/uL (130-400); RDW Coefficient of Variation 17.1 % (11.5-14.5); RDW Standard Deviation 54.9 fL (36.4-46.3); Red Blood Count 4.12 M/uL (4.20-5.40); White Blood Count 6.85 K/ul (4.8-10.8)
[2022-11-12 06:21] LABS: BUN Creatinine Ratio 29.8 (10-20); Calcium 9.2 mg/dl (8.6-10.3); Creatinine Clr Calc Pharmacy 53.4 ml/min; Est GFR (African American) 50.3 ml/min; Est GFR (Non-African American) 43.4 ml/min; Potassium 3.9 mmol/L (3.5-5.1)
[2022-11-12] MEDS: LANTUS PER UNIT CHARGE SQ SCH ×2 (08:27→20:13)
[2022-11-12] MEDS: PANCREAZE (LIPASE 10,500U) CAP PO SCH ×4 (08:27→20:18)
[2022-11-12] MEDS: INSULIN ASPART PER UNIT CHARGE SC SCH ×4 (08:27→20:21)
[2022-11-12] MEDS: PANCREAZE (LIPASE 4,200U) CAP PO SCH ×4 (08:28→20:19)
[2022-11-12] MEDS: FERROUS SULFATE 325 MG TAB PO SCH (08:31)
[2022-11-12] MEDS: SPIRONOLACTONE 12.5 MG TAB PO SCH (08:31)
[2022-11-12] MEDS: MAGNESIUM OXIDE 400 MG TAB PO SCH ×2 (08:31→20:16)
[2022-11-12] MEDS: ASCORBIC ACID 500 MG TAB PO SCH (08:32)
[2022-11-12] MEDS: ASPIRIN 81 MG ECTAB PO SCH (08:32)
[2022-11-12] MEDS: PANTOprazole 40 MG TAB PO SCH (08:32)
[2022-11-12] MEDS: LINEZOLID 600 MG TAB PO SCH ×2 (08:32→20:15)
[2022-11-12] MEDS: CLOPIDOGREL BISULFATE 75 MG TAB PO SCH (08:32)
[2022-11-12] MEDS: CEROVITE ADV FORMULA TAB PO SCH (08:32)
[2022-11-12] MEDS: FOLIC ACID 1 MG TAB PO SCH (08:32)
[2022-11-12] MEDS: FLUTICASONE PROPIONATE NA SPR 16 GM BTL SCH (08:33)
[2022-11-12] MEDS: FUROSEMIDE 40 MG/4 ML VIAL IV SCH ×2 (08:33→20:19)
[2022-11-12] MEDS: POTASSIUM CHLORIDE CRTAB 20 MEQ TABCR PO SCH ×2 (08:33→20:16)
[2022-11-12] MEDS: GABAPENTIN 400 MG CAP PO SCH ×3 (08:33→20:17)
[2022-11-12] MEDS: ADVANCED PROBIOTIC 1250 MG CAPSULE PO SCH (08:34)
[2022-11-12] MEDS: METOPROLOL SUCC 25MG EXT REL TAB PO SCH ×2 (08:34→20:18)
[2022-11-12] MEDS: predniSONE 5 MG TAB PO SCH (08:34)
[2022-11-12] MEDS: ERYTHROMYCIN OP OINT 5 MG/GM 3.5 GM TUBE OPB SCH ×4 (08:35→20:19)
[2022-11-12] MEDS: BRIMONIDINE TARTRATE 0.2% 5ML OPL SCH ×2 (08:35→20:20)
[2022-11-12] MEDS: CLOTRIMAZOLE 1% CR 15 GM TUBE EXT SCH ×2 (08:35→20:20)
[2022-11-12] MEDS: ENOXAPARIN INJ 40 MG/0.4 ML SYR SQ SCH (08:36)
[2022-11-12] MEDS: BETAXOLOL HCL 0.5% OPL SCH ×2 (08:36→20:21)
[2022-11-12] MEDS ORDERED: POTASSIUM CHLORIDE 10 MEQ TABCR PO ONE (10:07)
--- NOTE | 2022-11-12 10:07 | Cardiology Progress Note ---
Date of Service November 12, 2022 Assessment & Plan (1) Acute on chronic combined systolic (congestive) and diastolic (congestive) heart failure: (2) Aortic stenosis: (3) CKD (chronic kidney disease): Plan 72-year-old female admitted with acute on chronic heart failure with primarily right-sided signs/symptoms. Patient receiving IV furosemide and oral spironolactone, with gradually improving anasarca. RECOMMENDATIONS: Continue furosemide 80 mg IV twice daily and spironolactone at 12.5 mg/day. Supplement potassium orally, additional 10 mEq/day. Follow daily weights, fluid balance, GFR, and electrolytes. Patient is not chronically anticoagulated due to bleeding risk. Continue dual antiplatelet therapy with history of drug-eluting stent implantation to the mid LAD March 2022. Evaluation of severe versus pseudo-aortic stenosis as scheduled with transesophageal echocardiogram and dobutamine stress echocardiography as an outpatient. Admission and Anticipated Discharge Date Admission Date: November 05, 2022 Supervising Physician Co-Signing Physician Notes Patient seen and examined at the bedside. Edema improving. Negative fluid balance. Renal function stable.Offers no new concerns/complaints. PE: Gen: NAD, awake, alert, oriented x3. Heart: Irregular rhythm, normal S1-S2. 2/6 systolic ejection murmur heard at the base. Lungs: Diminished breath sounds at the bases bilateral. No rales, rhonchi, wheeze. Extremities: 1+ bilateral pretibial edema with 2+ edema of her abdomen/ pannus. A/P: Agree with above PA-C history, physical exam, assessment and plan. Continue furosemide 80 mg twice daily and Aldactone. Follow daily weight, fluid balance, and electrolytes. Further evaluation of aortic stenosis in the outpatient setting as noted above. Subjective Patient seen and examined. Chart, medications, and telemetry reviewed. Ongoing cough, shortness of breath, anasarca. No chest pain. No palpitations. No PND. No dizziness. No subjective fevers or chills. I/O's: -918 mL's the last 24 hours, -5,073 mL's overall. Telemetry: Paced, rates 60's-80's, occasional PVC overnight. Review of Systems Review of Systems: Complete review of systems is otherwise as stated above, negative, noncontributory Physical Exam Physical Exam: Examined while in bed, 40 degrees incline General: Alert, no distress, well nourished, well developed, comfortable and cooperative HENT: Normocephalic. Atraumatic. Neck: Bilateral carotid bruits. JVD. Heart: Distant heart sounds. Regular at 70 bpm. Grade II/ systolic murmur. Apical systolic murmur. No diastolic murmur. No rub. Lungs: Clear to auscultation. Abdomen: +BS. Distended. Nontender. No masses. Extremities: Dressings not removed. 1-2+ pitting edema. No clubbing. No cyanosis Pulses: radial=2/4, posterior tibial=0/4. Skin: + Fungal appearing rash on lower extremities. Limited neurological examination: No focal deficit. Results & Data Vital Signs (Past 12 Hours) Vital Signs Temp Pulse Pulse Resp BP Pulse Ox O2 Del Method 11/12/22 08:17 36.5 C 67 18 106/65 100 Nasal Cannula 11/12/22 06:48 69 11/12/22 02:47 36.7 C 79 18 116/80 99 Nasal Cannula 11/11/22 22:41 36.6 C 63 18 112/70 100 Nasal Cannula O2 Flow Rate 11/12/22 08:17 2.0 11/12/22 06:48 11/12/22 02:47 11/11/22 22:41 Laboratory Results CBC 11/12/22 Range/Units 05:38 WBC 6.85 (4.8-10.8) K/ul RBC 4.12 L (4.20-5.40) M/uL Hgb 11.5 L (12.0-16.0) g/dl Hct 36.8 L (37.0-47.0) % Plt Count 102 L (130-400) K/uL Neut # (Auto) 5.73 (1.40-6.50) K/uL Lymph # (Auto) 0.53 L (1.2-3.4) K/uL [place] # (Auto) 0.56 (0.11-0.59) K/uL Eos # (Auto) 0.00 (0-0.50) K/uL Baso # (Auto) 0.02 (0-0.2) K/uL Comprehensive Metabolic Panel 11/12/22 Range/Units 05:38 Sodium 141 (136-145) mmol/L Potassium 3.9 (3.5-5.1) mmol/L Chloride 102 (98-107) mmol/L Carbon Dioxide 32 (21-32) mmol/L BUN 37 H (6-23) mg/dl Creatinine 1.24 H (0.6-1.2) mg/dl Glucose 77 (70-99(Fasting)) mg/dl Calcium 9.2 (8.6-10.3) mg/dl Intake and Output 11/11/22 11/12/22 11/12/22 22:59 06:59 14:59 Intake Total 510 / 660 150 / 660 Output Total 928 / 1578 650 / 1578 Balance -418 / -918 -500 / -918 Intake: Oral 510 / 660 150 / 660 Output: Urine Amount (Catheter) 925 / 1575 650 / 1575 Red/Indwelling 925 / 1575 650 / 1575 # Bowel Movements Other: Weight 125.8 kg
--- NOTE | 2022-11-12 14:39 | Hospitalist Progress Note ---
Date of Service November 12, 2022 Assessment & Plan (1) Acute on chronic combined systolic (congestive) and diastolic (congestive) heart failure: Plan: This is a 72 y/o with a complicated medical history including combined systolic and diastolic heart failure, CAD s/p PCI with WALTER, aortic stenosis (suspected severe), tachy-wilfrido syndrome s/p PPM in 2021, persistent afib since 07/01, bilateral carotid bruits, insulin-requiring DM, blindness, rheumatoid arthritis, chronic prednisone use, LAQUITA on CPAP, CKD3a, hypothyroidism, HTN, open-angle glaucoma, and recurrent liver cancer s/p recent placement of radiation beads. Presented with progressive shortness of breath over 5 weeks which did not improve even with increasing diuretics Her leg edema has been seeping liquid constantly Started with Lasix 40mg IV BID--> increased to lasix 60mg BID 11/08 40lb over ideal weight Appreciate cardiology input and recommendation Lasix has been increased to 80 mg IV twice daily and added spironolactone 12.5 mg daily with supplemental potassium as needed Negative balance of more than 3 L so far and will continue monitor intake and output We will continue current doses of diuretics as per the bundle packer and the case discussed with the bundle packer Has been feeling better and is out of bed on a chair Denies any significant symptoms except weakness We will continue with PT and OT evaluation Remains stable and has been diuresing enough Continue current dose of furosemide and monitor kidney function (2) Tinea corporis: Plan: Rash on left knee seems most consistent with tinea corporis - Started clotrimazole 1% cream BID for a 14 days course (3) Chronic kidney disease, stage 3: Plan: monitor Cr with diuresis Creatinine remains stable with normal electrolytes Creatinine remains stable and electrolytes are normal Kidney function has gotten a little worse but that will be monitored (4) Diabetes mellitus, type 2: Plan: Basal and sliding scale insulin Diabetic diet Has been having low blood sugar around upper 60s We will decrease Lantus from 15 units twice daily to 10 units twice daily Sugar remains stable following adjustment of insulin (5) Hypothyroidism: Plan: Continue replacement (6) Sleep apnea: Plan: CPAP ordered - settings from pt's outpatient records (7) Glaucoma: (8) Rheumatoid arthritis: Plan: Methotrexate currently on hold due to leg wounds - will continue prednisone and plaquenil (9) Iron deficiency anemia: (10) Venous stasis ulcers: Plan: Wound care consult She has chronic LE wounds for which she is following with wound care but she has been told that until the fluid overload is improved, her wounds will be unlikely to heal. Right leg cellulitis Extensive antibiotic allergy noted. Started linezolid 600mg BID, anticipate 7 day course. Dressing as per wound care (11) Hepatocellular carcinoma: Plan: OP follow up Plan Code status: Full code but no prolonged heroic measures. Son is her POA DVT Prophylaxis: Lovenox Disposition-- Evaluated by PT/OT, rehab recommended Admission and Anticipated Discharge Date Admission Date: November 05, 2022 Subjective 11/10/2022 The patient was seen and examined in telemetry unit She has been feeling much better and denies any shortness of breath at rest She still gets shortness of breath with minimal exertion Denies any chest pain and/or palpitation and the leg swelling has been improving 11/11/2022 The patient was seen and examined in telemetry unit She has been feeling a lot better but not yet ready to be discharged Denies any significant symptoms She will get PT and OT evaluation 11/12/2022 The patient was seen and examined in telemetry unit She has been feeling much better She continues to diurese and IV Lasix will be continued Denies any chest pain and/or palpitation or any shortness of breath at rest Review of Systems Review of Systems: All systems reviewed and are unremarkable except as noted below Physical Exam Physical Exam: Sitting on a chair without any acute distress Constitutional: well developed, well nourished, + ill appearing and + morbidly obese Eyes: PERRL, conjunctivae normal, anicteric sclerae ENMT: external ear and nose normal, oropharynx normal Neck: trachea midline, no thyromegaly Respiratory: no respiratory distress Auscultation: + diminished lung sounds and + crackles (Bibasal crackles) Cardiovascular: Rate/Rhythm: regular rate and regular rhythm; not tachycardic Heart Sounds: normal S1 and normal S2; no murmur Extremities: + edema (2+ edema bilaterally with seeping of fluid) Gastrointestinal (Abdomen): Inspection/Auscultation: + abdomen distended and normal bowel sounds Percussion/Palpation: abdomen soft; abdomen nontender Neurologic: normal touch/pain/proprioception and moves all extremities; no focal motor deficits Psychiatric: A+Ox3, euthymic affect Lymphatic: no cervical or axillary lymphadenopathy Results & Data Results & Data Vital Signs (Past 12 Hours) Vital Signs Temp Pulse Pulse Resp BP Pulse Ox Pulse Ox 11/12/22 12:14 97 11/12/22 12:10 36.5 C 74 18 109/56 L 99 11/12/22 08:00 100 11/12/22 08:00 11/12/22 08:17 36.5 C 67 18 106/65 100 11/12/22 06:48 69 11/12/22 02:47 36.7 C 79 18 116/80 99 O2 Del Method O2 Del Method O2 Flow Rate O2 Flow Rate 11/12/22 12:14 3 11/12/22 12:10 Nasal Cannula 2.0 11/12/22 08:00 Nasal Cannula 2 11/12/22 08:00 Nasal Cannula 2 11/12/22 08:17 Nasal Cannula 2.0 11/12/22 06:48 11/12/22 02:47 Nasal Cannula Laboratory Results Short CBC 11/12/22 Range/Units 05:38 WBC 6.85 (4.8-10.8) K/ul Hgb 11.5 L (12.0-16.0) g/dl Hct 36.8 L (37.0-47.0) % Plt Count 102 L (130-400) K/uL BMP 11/12/22 05:38 Sodium 141 Potassium 3.9 Chloride 102 Carbon Dioxide 32 BUN 37 H Creatinine 1.24 H Glucose 77 Calcium 9.2 Medications Administered Current Inpatient Medications Acetaminophen (Acetaminophen 325 Mg Tab) 650 mg PO Q4H PRN PRN Reason: Pain or Fever Stop: 12/05/22 18:39 Last Admin: 11/06/22 08:40 Dose: 650 mg Acetaminophen (Acetaminophen 500 Mg Tab) 1,000 mg PO HS LIBBY Stop: 12/05/22 20:59 Last Admin: 11/11/22 21:10 Dose: 1,000 mg Lipase/Protease/Amylase (Pancreaze (Lipase 10,500u) Cap) 2 cap PO QIDM LIBBY Stop: 12/05/22 20:59 Last Admin: 11/12/22 12:06 Dose: 2 cap Lipase/Protease/Amylase (Pancreaze (Lipase 4,200u) Cap) 1 cap PO QIDM LIBBY Stop: 12/05/22 20:59 Last Admin: 11/12/22 12:06 Dose: 1 cap Ascorbic Acid (Ascorbic Acid 500 Mg Tab) 500 mg PO QAM [facility] Stop: 12/06/22 08:59 Last Admin: 11/12/22 08:32 Dose: 500 mg Aspirin (Aspirin 81 Mg Ectab) 81 mg PO QAM [facility] Stop: 12/06/22 08:59 Last Admin: 11/12/22 08:32 Dose: 81 mg Atorvastatin Calcium (Atorvastatin 40 Mg Tab) 40 mg PO HS [facility] Stop: 12/05/22 20:59 Last Admin: 11/11/22 21:12 Dose: 40 mg Betaxolol HCl (Betaxolol Hcl 0.5% Op 5 Ml Btl) 1 drops OPL [facility] Stop: 12/05/22 20:59 Last Admin: 11/12/22 08:36 Dose: 1 drops Brimonidine Tartrate (Brimonidine Tartrate 0.2% 5ml) 1 drops OPL BID [facility] Stop: 12/05/22 20:59 Last Admin: 11/12/22 08:35 Dose: 1 drops Calcium Carbonate (Calcium Carbonate 500 Mg Chewable Tab) 500 mg PO QID PRN PRN Reason: Indigestion Stop: 12/09/22 18:41 Clopidogrel Bisulfate (Clopidogrel Bisulfate 75 Mg Tab) [facility] [place]: 12/06/22 08:59 Last Admin: 11/12/22 08:32 Dose: 75 mg Clotrimazole (Clotrimazole 1% Cr 15 Gm Tube) 1 appln EXT BID [facility] Stop: 11/19/22 20:59 Last Admin: 11/12/22 08:35 Dose: 1 appln Cyanocobalamin (Cyanocobalamin (B-12) 500 Mcg Tablet) 1,500 mcg PO QPM [facility] Stop: 12/05/22 20:59 Last Admin: 11/11/22 21:12 Dose: 1,500 mcg Dextrose (Dextrose 50% 50 Ml Syringe) 25 - 50 ml IV UD PRN; Protocol PRN Reason: Hypoglycemia Protocol Stop: 12/05/22 17:38 Enoxaparin Sodium (Enoxaparin Inj 40 Mg/0.4 Ml Syr) 40 mg SQ QAM [facility] Stop: 12/06/22 08:59 Last Admin: 11/12/22 08:36 Dose: 40 mg Erythromycin (Erythromycin Op Oint 5 Mg/Gm 3.5 Gm Tube) 1 appln OPB QID [facility]BY Stop: 11/15/22 20:59 Last Admin: 11/12/22 13:37 Dose: 1 appln Ferrous Sulfate (Ferrous Sulfate 325 Mg Tab) 325 mg PO DAILY LIBBY Stop: 12/06/22 08:59 Last Admin: 11/12/22 08:31 Dose: 325 mg Fluticasone Propionate (Fluticasone Propionate Na Spr 16 Gm Btl) 2 sprays NA QAM [facility] Stop: 12/06/22 08:59 Last Admin: 11/12/22 08:33 Dose: 2 sprays Folic Acid (Folic Acid 1 Mg Tab) 1 mg PO QAM [facility] Stop: 12/06/22 08:59 Last Admin: 11/12/22 08:32 Dose: 1 mg Furosemide (Furosemide 40 Mg/4 Ml Vial) 80 mg IV BID [facility] Stop: 12/10/22 09:29 Last Admin: 11/12/22 08:33 Dose: 80 mg Gabapentin (Gabapentin 400 Mg Cap) 400 mg PO TID LIBBY Stop: 12/05/22 20:59 Last Admin: 11/12/22 13:37 Dose: 400 mg Glucagon (Glucagon For Inj 1 Mg Vial) 1 mg SQ UD PRN; Protocol PRN Reason: Hypoglycemia Protocol Stop: 12/05/22 17:38 Glucose (Glucose 10 Tab/Tube) 4 - 8 tab PO UD PRN; Protocol PRN Reason: Hypoglycemia Treatment Stop: 12/05/22 17:38 Glucose (Glucose 40% Gel 15 Gm Tube) 15 - 30 gm PO UD PRN; Protocol PRN Reason: Hypoglycemia Protocol Stop: 12/05/22 17:38 Hydroxychloroquine Sulfate (Hydroxychloroquine Sulfate 200 Mg Tab) 400 mg PO HS LIBBY Stop: 12/05/22 20:59 Last Admin: 11/11/22 21:17 Dose: 400 mg Insulin Aspart (Insulin Aspart Per Unit Charge) 0 units SC ACHS LIBBY Stop: 12/05/22 20:59 Last Admin: 11/12/22 12:07 Dose: 6 units Insulin Glargine (Lantus Per Unit Charge) 10 units SQ BID [facility]BY Stop: 12/11/22 20:59 Last Admin: 11/12/22 08:27 Dose: 10 units Lactobacillus Acidophilus (Advanced Probiotic 1250 Mg Capsule) 1 cap PO QAM [facility] Stop: 12/06/22 08:59 Last Admin: 11/12/22 08:34 Dose: 1 cap Latanoprost (Latanoprost 0.005% Op Soln 2.5 Ml Btl) 1 drops OPB HS [facility] Stop: 12/05/22 20:59 Last Admin: 11/11/22 21:13 Dose: 1 drops Levothyroxine Sodium (Levothyroxine Sodium 125 Mcg Tablet) 125 mcg PO DAILYBB [facility]BY Stop: 12/06/22 06:29 Last Admin: 11/12/22 05:23 Dose: 125 mcg Linezolid (Linezolid 600 Mg Tab) 600 mg PO BID [facility]BY Stop: 11/13/22 20:59 Last Admin: 11/12/22 08:32 Dose: 600 mg Lorazepam (Lorazepam 0.5 Mg Tab) 0.5 mg PO TID PRN PRN Reason: Anxiety Stop: 12/05/22 19:50 Last Admin: 11/11/22 23:25 Dose: 0.5 mg Magnesium Oxide (Magnesium Oxide 400 Mg Tab) 400 mg PO BID LIBBY Stop: 12/06/22 20:59 Last Admin: 11/12/22 08:31 Dose: 400 mg Melatonin (Melatonin 3 Mg Tab) 6 mg PO HS [facility] Stop: 12/05/22 20:59 Last Admin: 11/11/22 21:14 Dose: 6 mg Menthol (Cough Drop (Sugar Free) Rob 24 Rob/1 Box) 1 rob BUCCAL TID PRN PRN Reason: Sore Throat Stop: 12/11/22 22:49 Last Admin: 11/11/22 23:23 Dose: 1 rob Metoprolol Succinate (Metoprolol Succ 25mg Ext Rel Tab) 25 mg PO BID LIBBY Stop: 12/05/22 20:59 Last Admin: 11/12/22 08:34 Dose: 25 mg Miscellaneous (Carbohydrates For Hypoglycemia ) 15 - 30 gm PO UD PRN PRN Reason: Hypoglycemia Protocol Stop: 12/05/22 17:38 Multivitamins/Minerals (Cerovite Adv Formula Tab) 1 tab PO QAM LIBBY Stop: 12/06/22 08:59 Last Admin: 11/12/22 08:32 Dose: 1 tab Netarsudil (Netarsudil Mesylate 37 Drops/2.5 Ml Btl) 1 drops OPL HS [facility] Stop: 12/06/22 20:59 Last Admin: 11/11/22 21:23 Dose: 1 drops Nitroglycerin (Nitroglycerin Sl 0.4 Mg/Tab Tab) 0.4 mg SL Q5M PRN PRN Reason: Chest Pain Stop: 12/05/22 18:39 Nystatin (Nystatin Powder 15gm Btl) 1 appln EXT TID PRN PRN Reason: irritation Stop: 12/05/22 19:50 Last Admin: 11/07/22 21:52 Dose: 1 appln Pantoprazole Sodium (Pantoprazole 40 Mg Tab) 40 mg PO QAM LIBBY Stop: 12/06/22 08:59 Last Admin: 11/12/22 08:32 Dose: 40 mg Potassium Chloride (Potassium Chloride Crtab 20 Meq Tabcr) 20 meq PO BID LIBBY Stop: 12/06/22 20:59 Last Admin: 11/12/22 08:33 Dose: 20 meq Prednisone (Prednisone 5 Mg Tab) 5 mg PO QAM LIBBY Stop: 12/06/22 08:59 Last Admin: 11/12/22 08:34 Dose: 5 mg Spironolactone (Spironolactone 12.5 Mg Tab) 12.5 mg PO DAILY LIBBY Stop: 12/10/22 09:29 Last Admin: 11/12/22 08:31 Dose: 12.5 mg Tamsulosin HCl (Tamsulosin Hcl 0.4 Mg Cap) 0.4 mg PO HS LIBBY Stop: 12/05/22 20:59 Last Admin: 11/11/22 21:15 Dose: 0.4 mg
[2022-11-12] MEDS: MELATONIN 3 MG TAB PO SCH (20:14)
[2022-11-12] MEDS: HYDROXYCHLOROQUINE SULFATE 200 MG TAB PO SCH (20:14)
[2022-11-12] MEDS: ACETAMINOPHEN 500 MG TAB PO SCH (20:14)
[2022-11-12] MEDS: ATORVASTATIN 40 MG TAB PO SCH (20:15)
[2022-11-12] MEDS: CYANOCOBALAMIN (B-12) 500 MCG TABLET PO SCH (20:16)
[2022-11-12] MEDS: TAMSULOSIN HCL 0.4 MG CAP PO SCH (20:16)
[2022-11-12] MEDS: NETARSUDIL MESYLATE 37 DROPS/2.5 ML BTL OPL SCH (20:20)
[2022-11-12] MEDS: LATANOPROST 0.005% OP SOLN 2.5 ML BTL OPB SCH (20:20)
[2022-11-12] MEDS: LORazepam 0.5 MG TAB PO PRN (23:54)
[2022-11-13] MEDS: LEVOTHYROXINE SODIUM 125 MCG TABLET PO SCH (05:31)
[2022-11-13 07:20] LABS: BUN Creatinine Ratio 30.6 (10-20); Calcium 9.2 mg/dl (8.6-10.3); Creatinine Clr Calc Pharmacy 54.7 ml/min; Est GFR (African American) 51.8 ml/min; Est GFR (Non-African American) 44.7 ml/min; Potassium 3.8 mmol/L (3.5-5.1)
[2022-11-13] MEDS ORDERED: POTASSIUM CHLORIDE 10 MEQ TABCR PO ONE (07:41)
[2022-11-13] MEDS: INSULIN ASPART PER UNIT CHARGE SC SCH ×4 (08:05→20:45)
[2022-11-13] MEDS: LANTUS PER UNIT CHARGE SQ SCH ×2 (08:06→20:39)
[2022-11-13] MEDS: PANCREAZE (LIPASE 10,500U) CAP PO SCH ×4 (08:10→20:40)
[2022-11-13] MEDS: SPIRONOLACTONE 25 MG TAB PO SCH (08:11)
[2022-11-13] MEDS: PANCREAZE (LIPASE 4,200U) CAP PO SCH ×4 (08:11→20:40)
[2022-11-13] MEDS: ASCORBIC ACID 500 MG TAB PO SCH (08:12)
[2022-11-13] MEDS: CEROVITE ADV FORMULA TAB PO SCH (08:13)
[2022-11-13] MEDS: ASPIRIN 81 MG ECTAB PO SCH (08:13)
[2022-11-13] MEDS: CLOPIDOGREL BISULFATE 75 MG TAB PO SCH (08:14)
[2022-11-13] MEDS: FOLIC ACID 1 MG TAB PO SCH (08:14)
[2022-11-13] MEDS: BETAXOLOL HCL 0.5% OPL SCH ×2 (08:15→20:45)
[2022-11-13] MEDS: FUROSEMIDE 40 MG/4 ML VIAL IV SCH (08:17)
[2022-11-13] MEDS: ENOXAPARIN INJ 40 MG/0.4 ML SYR SQ SCH (08:20)
[2022-11-13] MEDS: CLOTRIMAZOLE 1% CR 15 GM TUBE EXT SCH ×2 (08:20→20:45)
[2022-11-13] MEDS: BRIMONIDINE TARTRATE 0.2% 5ML OPL SCH ×2 (08:20→20:44)
[2022-11-13] MEDS: ERYTHROMYCIN OP OINT 5 MG/GM 3.5 GM TUBE OPB SCH ×4 (08:21→20:39)
[2022-11-13] MEDS: FERROUS SULFATE 325 MG TAB PO SCH (08:21)
[2022-11-13] MEDS: FLUTICASONE PROPIONATE NA SPR 16 GM BTL SCH (08:23)
[2022-11-13] MEDS: GABAPENTIN 400 MG CAP PO SCH ×3 (08:23→20:41)
[2022-11-13] MEDS: POTASSIUM CHLORIDE CRTAB 20 MEQ TABCR PO SCH ×2 (08:23→20:43)
[2022-11-13] MEDS: METOPROLOL SUCC 25MG EXT REL TAB PO SCH ×2 (08:24→20:42)
[2022-11-13] MEDS: MAGNESIUM OXIDE 400 MG TAB PO SCH ×2 (08:24→20:44)
[2022-11-13] MEDS: PANTOprazole 40 MG TAB PO SCH (08:24)
[2022-11-13] MEDS: ADVANCED PROBIOTIC 1250 MG CAPSULE PO SCH (08:25)
[2022-11-13] MEDS: LINEZOLID 600 MG TAB PO SCH (08:26)
[2022-11-13] MEDS: predniSONE 5 MG TAB PO SCH (08:26)
--- NOTE | 2022-11-13 08:26 | Cardiology Progress Note ---
Date of Service November 13, 2022 Assessment & Plan (1) Acute on chronic combined systolic (congestive) and diastolic (congestive) heart failure: (2) Aortic stenosis: (3) CKD (chronic kidney disease): Plan Ongoing acute decompensated right greater than left biventricular congestive heart failure signs/symptoms, HFrEF, ansarca. RECOMMENDATIONS: Change pulse dose IV furosemide to a furosemide drip. Continue spironolactone, increased to 25 mg/day. Supplement potassium orally Follow daily weights, fluid balance, GFR, and electrolytes. Patient is not chronically anticoagulated due to bleeding risk. Continue dual antiplatelet therapy with history of drug-eluting stent implan tation to the mid LAD March 2022. Evaluation of severe versus pseudo-aortic stenosis with transesophageal echocardiogram and dobutamine stress echocardiography planned as an outpatient. Admission and Anticipated Discharge Date Admission Date: November 05, 2022 Supervising Physician Co-Signing Physician Notes Attending Staff: Pt was seen and evaluated with [facility] staff. 50 min spent addressing challenges, educating and advancing daily plan of care 72 yo woman presenting with worsening LE edema Dx: Acute on chronic combined heart failure Cardiomyopathy LVEF 25% Combination of ischemic heart disease + Severe Case reviewed Markedly volume overloaded + JVP to under jaw S1 - murmur - Muted S2 Decreased BS at Right base + Abdominal Wall Edema +3 Bilateral LE edema extending to the inguinal folds Plan: Aggressive diuresis Lasix 80 IV x1 Start Lasix infusion @ 10 mg IV/hr Consider Purewik for urine collection MARIXA - OFF Reduce beta gio dosing Decrease Lopressor to 12.5 mg po BID K+ goal 4.5-5 Continue Aldactone 25 mg po per day Mag goal >2 + Stent Continue ASA 81 mg po per day Continue Plavix 75 mg po per day Continue Statin Plans for TAVR evaluation Dylan Saravia Subjective Patient seen and examined. Chart, medications, and telemetry reviewed. Feeling better - less shortness of breath. Ongoing fluid, oozing. + Ongoing diarrhea. No chest pain. No palpitations. I/O's - 607 mL's the last 24 hours, - 5,680 mL's overall. Telemetry: Sinus/paced in the 70's. Review of Systems Review of Systems: Complete review of systems is otherwise as stated above, negative, noncontributory Physical Exam Physical Exam: Examined in the bedside chair General: Alert, no distress, well nourished, well developed, comfortable and cooperative HENT: Normocephalic. Atraumatic. Neck: + JVD. Heart: Somewhat distant heart sounds. Regular at 70 bpm. Grade II/ systolic murmur. Lungs: Decreased at the bases. Faint bibasilar rales. No wheeze. Abdomen: +BS. Distended. Nontender. No masses. Extremities: + Wheeping fluid. Dressings not removed. 1-2+ pitting edema, diffuse. No clubbing. No cyanosis Pulses: radial=2/4, posterior tibial=0/4. Skin: + Fungal appearing rash on lower extremities. Limited neurological examination: No focal deficit. Results & Data Vital Signs (Past 12 Hours) Vital Signs Temp Pulse Pulse Resp BP Pulse Ox O2 Del Method 11/13/22 07:24 36.6 C 71 18 109/71 100 Nasal Cannula 11/13/22 02:41 37 C 74 18 102/66 100 Nasal Cannula 11/12/22 22:55 36.6 C 82 18 107/64 100 Nasal Cannula 11/12/22 22:50 117 H O2 Flow Rate 11/13/22 07:24 2.0 11/13/22 02:41 11/12/22 22:55 11/12/22 22:50 Laboratory Results Comprehensive Metabolic Panel 11/13/22 Range/Units 06:20 Sodium 139 (136-145) mmol/L Potassium 3.8 (3.5-5.1) mmol/L Chloride 100 (98-107) mmol/L Carbon Dioxide 33 H (21-32) mmol/L BUN 37 H (6-23) mg/dl Creatinine 1.21 H (0.6-1.2) mg/dl Glucose 132 H (70-99(Fasting)) mg/dl Calcium 9.2 (8.6-10.3) mg/dl Intake and Output 11/12/22 11/13/22 11/13/22 22:59 06:59 14:59 Intake Total 340 / 1070 100 / 1070 150 / 150 Output Total 427 / 1677 500 / 1677 Balance -87 / -607 -400 / -607 149 / 149 Intake: Oral 340 / 1070 100 / 1070 150 / 150 Output: Urine Amount (Catheter) 425 / 1675 500 / 1675 Red/Indwelling 425 / 1675 500 / 1675 # Bowel Movements 2 / 2 Other: Weight 125.8 kg
[2022-11-13] MEDS: LOPERAMIDE HCL 2 MG CAP PO PRN ×2 (10:53→20:39)
[2022-11-13] MEDS: FUROSEMIDE 100 MG in DEXTROSE 5% 90 ML IV SCH ×2 (11:23→20:57)
--- NOTE | 2022-11-13 14:07 | Hospitalist Progress Note ---
Date of Service November 13, 2022 Assessment & Plan (1) Acute on chronic combined systolic (congestive) and diastolic (congestive) heart failure: Plan: is is a 72 y/o with a complicated medical history including combined systolic and diastolic heart failure, CAD s/p PCI with WALTER, aortic stenosis (suspected severe), tachy-wilfrido syndrome s/p PPM in 2021, persistent afib since 07/01, bilateral carotid bruits, insulin-requiring DM, blindness, rheumatoid arthritis, chronic prednisone use, LAQUITA on CPAP, CKD3a, hypothyroidism, HTN, open-angle glaucoma, and recurrent liver cancer s/p recent placement of radiation beads. Presented with progressive shortness of breath over 5 weeks which did not improve even with increasing diuretics Her leg edema has been seeping liquid constantly Started with Lasix 40mg IV BID--> increased to lasix 60mg BID 11/08 40lb over ideal weight Appreciate cardiology input and recommendation Lasix has been increased to 80 mg IV twice daily and added spironolactone 12.5 mg daily with supplemental potassium as needed Negative balance of more than 3 L so far and will continue monitor intake and output We will continue current doses of diuretics as per the braiding operator and the case discussed with the braiding operator Has been feeling better and is out of bed on a chair Denies any significant symptoms except weakness We will continue with PT and OT evaluation Remains stable and has been diuresing enough Continue current dose of furosemide and monitor kidney function Creatinine remains stable and the Lasix doses have been changed to intravenous drip We will monitor JANINA and renal function (2) Tinea corporis: Plan: Rash on left knee seems most consistent with tinea corporis - Started clotrimazole 1% cream BID for a 14 days course (3) Chronic kidney disease, stage 3: Plan: monitor Cr with diuresis Creatinine remains stable with normal electrolytes Creatinine remains stable and electrolytes are normal Kidney function has gotten a little worse but that will be monitored We will get PRP checked (4) Diabetes mellitus, type 2: Plan: Basal and sliding scale insulin Diabetic diet Has been having low blood sugar around upper 60s We will decrease Lantus from 15 units twice daily to 10 units twice daily Sugar remains stable following adjustment of insulin (5) Hypothyroidism: Plan: Continue replacement (6) Sleep apnea: Plan: CPAP ordered - settings from pt's outpatient records (7) Glaucoma: (8) Rheumatoid arthritis: Plan: Methotrexate currently on hold due to leg wounds - will continue prednisone and plaquenil Remains free from any significant arthritic pain We will hold methotrexate for now (9) Iron deficiency anemia: (10) Venous stasis ulcers: Plan: Wound care consult She has chronic LE wounds for which she is following with wound care but she has been told that until the fluid overload is improved, her wounds will be unlikely to heal. Right leg cellulitis Extensive antibiotic allergy noted. Started linezolid 600mg BID, anticipate 7 day course. Dressing as per wound care Advised to keep the legs elevated while in bed (11) Hepatocellular carcinoma: Plan: OP follow up Plan Code status: Full code but no prolonged heroic measures. Son is her POA DVT Prophylaxis: Lovenox Disposition-- Evaluated by PT/OT, rehab recommended Admission and Anticipated Discharge Date Admission Date: November 05, 2022 Subjective 11/10/2022 The patient was seen and examined in telemetry unit She has been feeling much better and denies any shortness of breath at rest She still gets shortness of breath with minimal exertion Denies any chest pain and/or palpitation and the leg swelling has been improving 11/11/2022 The patient was seen and examined in telemetry unit She has been feeling a lot better but not yet ready to be discharged Denies any significant symptoms She will get PT and OT evaluation 11/12/2022 The patient was seen and examined in telemetry unit She has been feeling much better She continues to diurese and IV Lasix will be continued Denies any chest pain and/or palpitation or any shortness of breath at rest 11/13/2022 The patient was seen and examined in telemetry unit She has been feeling much better and denies any symptoms at rest Her Lasix will be changed to IV pulse therapy She is out of bed on a chair and remains asymptomatic Review of Systems Review of Systems: All systems reviewed and are unremarkable except as noted below Physical Exam Physical Exam: Sitting on a chair without any acute distress Constitutional: well developed, well nourished, + ill appearing and + morbidly obese Eyes: PERRL, conjunctivae normal, anicteric sclerae ENMT: external ear and nose normal, oropharynx normal Neck: trachea midline, no thyromegaly Respiratory: no respiratory distress Auscultation: + diminished lung sounds and + crackles (Bibasal crackles) Cardiovascular: Rate/Rhythm: regular rate and regular rhythm; not tachycardic Heart Sounds: normal S1 and normal S2; no murmur Extremities: + edema (2+ edema bilaterally with seeping of fluid) Gastrointestinal (Abdomen): Inspection/Auscultation: + abdomen distended and normal bowel sounds Percussion/Palpation: abdomen soft; abdomen nontender Musculoskeletal: No acute arthritis involving any joint Neurologic: normal touch/pain/proprioception and moves all extremities; no focal motor deficits Psychiatric: A+Ox3, euthymic affect Lymphatic: no cervical or axillary lymphadenopathy Results & Data Results & Data Vital Signs (Past 12 Hours) Vital Signs Temp Pulse Resp BP Pulse Ox Pulse Ox O2 Del Method 11/13/22 11:05 36.8 C 83 18 108/73 100 Nasal Cannula 11/13/22 08:00 Nasal Cannula 11/13/22 08:00 100 11/13/22 07:24 36.6 C 71 18 109/71 100 Nasal Cannula 11/13/22 02:41 37 C 74 18 102/66 100 Nasal Cannula O2 Del Method O2 Flow Rate O2 Flow Rate 11/13/22 11:05 2.0 11/13/22 08:00 2 11/13/22 08:00 Nasal Cannula 2 11/13/22 07:24 2.0 11/13/22 02:41 Laboratory Results [facility] 11/13/22 06:20 Sodium 139 Potassium 3.8 Chloride 100 Carbon Dioxide 33 H BUN 37 H Creatinine 1.21 H Glucose 132 H Calcium 9.2 Medications Administered Current Inpatient Medications Acetaminophen (Acetaminophen 325 Mg Tab) 650 mg PO Q4H PRN PRN Reason: Pain or Fever Stop: 12/05/22 18:39 Last Admin: 11/06/22 08:40 Dose: 650 mg Acetaminophen (Acetaminophen 500 Mg Tab) 1,000 mg PO HS LIBBY Stop: 12/05/22 20:59 Last Admin: 11/12/22 20:14 Dose: 1,000 mg Lipase/Protease/Amylase (Pancreaze (Lipase 10,500u) Cap) 2 cap PO QIDM LIBBY Stop: 12/05/22 20:59 Last Admin: 11/13/22 12:17 Dose: 2 cap Lipase/Protease/Amylase (Pancreaze (Lipase 4,200u) Cap) 1 cap PO QIDM LIBBY Stop: 12/05/22 20:59 Last Admin: 11/13/22 12:18 Dose: 1 cap Ascorbic Acid (Ascorbic Acid 500 Mg Tab) 500 mg PO QAM [facility] Stop: 12/06/22 08:59 Last Admin: 11/13/22 08:12 Dose: 500 mg Aspirin (Aspirin 81 Mg Ectab) 81 mg PO QAM [facility] Stop: 12/06/22 08:59 Last Admin: 11/13/22 08:13 Dose: 81 mg Atorvastatin Calcium (Atorvastatin 40 Mg Tab) 40 mg PO HS [facility] Stop: 12/05/22 20:59 Last Admin: 11/12/22 20:15 Dose: 40 mg Betaxolol HCl (Betaxolol Hcl 0.5% Op 5 Ml Btl) 1 drops OPL AMHS [facility] Stop: 12/05/22 20:59 Last Admin: 11/13/22 08:15 Dose: 1 drops Brimonidine Tartrate (Brimonidine Tartrate 0.2% 5ml) 1 drops OPL BID [facility] Stop: 12/05/22 20:59 Last Admin: 11/13/22 08:20 Dose: 1 drops Calcium Carbonate (Calcium Carbonate 500 Mg Chewable Tab) 500 mg PO QID PRN PRN Reason: Indigestion Stop: 12/09/22 18:41 Clopidogrel Bisulfate (Clopidogrel Bisulfate 75 Mg Tab) [facility] Stop: 12/06/22 08:59 Last Admin: 11/13/22 08:14 Dose: 75 mg Clotrimazole (Clotrimazole 1% Cr 15 Gm Tube) 1 appln EXT BID [facility] Stop: 11/19/22 20:59 Last Admin: 11/13/22 08:20 Dose: 1 appln Cyanocobalamin (Cyanocobalamin (B-12) 500 Mcg Tablet) 1,500 mcg PO QPM [facility] Stop: 12/05/22 20:59 Last Admin: 11/12/22 20:16 Dose: 1,500 mcg Dextrose (Dextrose 50% 50 Ml Syringe) 25 - 50 ml IV UD PRN; Protocol PRN Reason: Hypoglycemia Protocol Stop: 12/05/22 17:38 Enoxaparin Sodium (Enoxaparin Inj 40 Mg/0.4 Ml Syr) 40 mg SQ QAM [facility] Stop: 12/06/22 08:59 Last Admin: 11/13/22 08:20 Dose: 40 mg Erythromycin (Erythromycin Op Oint 5 Mg/Gm 3.5 Gm Tube) 1 appln OPB QID LIBBY Stop: 11/15/22 20:59 Last Admin: 11/13/22 12:38 Dose: 1 appln Ferrous Sulfate (Ferrous Sulfate 325 Mg Tab) 325 mg PO DAILY LIBBY Stop: 12/06/22 08:59 Last Admin: 11/13/22 08:21 Dose: 325 mg Fluticasone Propionate (Fluticasone Propionate Na Spr 16 Gm Btl) 2 sprays NA QAM [facility] Stop: 12/06/22 08:59 Last Admin: 11/13/22 08:23 Dose: 2 sprays Folic Acid (Folic Acid 1 Mg Tab) 1 mg PO QAM [facility]BY Stop: 12/06/22 08:59 Last Admin: 11/13/22 08:14 Dose: 1 mg Gabapentin (Gabapentin 400 Mg Cap) 400 mg PO TID LIBBY Stop: 12/05/22 20:59 Last Admin: 11/13/22 13:59 Dose: 400 mg Glucagon (Glucagon For Inj 1 Mg Vial) 1 mg SQ UD PRN; Protocol PRN Reason: Hypoglycemia Protocol Stop: 12/05/22 17:38 Glucose (Glucose 10 Tab/Tube) 4 - 8 tab PO UD PRN; Protocol PRN Reason: Hypoglycemia Treatment Stop: 12/05/22 17:38 Glucose (Glucose 40% Gel 15 Gm Tube) 15 - 30 gm PO UD PRN; Protocol PRN Reason: Hypoglycemia Protocol Stop: 12/05/22 17:38 Hydroxychloroquine Sulfate (Hydroxychloroquine Sulfate 200 Mg Tab) 400 mg PO HS LIBBY Stop: 12/05/22 20:59 Last Admin: 11/12/22 20:14 Dose: 400 mg Furosemide 100 mg/ Dextrose 100 mls @ 10 mls/hr IV .Q10H LIBBY Stop: 12/13/22 10:29 Last Admin: 11/13/22 11:23 Dose: 10 mg/hr, 10 mls/hr Insulin Aspart (Insulin Aspart Per Unit Charge) 0 units SC ACHS LIBBY Stop: 12/05/22 20:59 Last Admin: 11/13/22 12:14 Dose: 6 units Insulin Glargine (Lantus Per Unit Charge) 10 units SQ BID LIBBY Stop: 12/11/22 20:59 Last Admin: 11/13/22 08:06 Dose: 10 units Lactobacillus Acidophilus (Advanced Probiotic 1250 Mg Capsule) 1 cap PO QAM [facility] Stop: 12/06/22 08:59 Last Admin: 11/13/22 08:25 Dose: 1 cap Latanoprost (Latanoprost 0.005% Op Soln 2.5 Ml Btl) 1 drops OPB HS [facility] Stop: 12/05/22 20:59 Last Admin: 11/12/22 20:20 Dose: 1 drops Levothyroxine Sodium (Levothyroxine Sodium 125 Mcg Tablet) 125 mcg PO DAILYBB LIBBY Stop: 12/06/22 06:29 Last Admin: 11/13/22 05:31 Dose: 125 mcg Linezolid (Linezolid 600 Mg Tab) 600 mg PO BID [facility] Stop: 11/13/22 20:59 Last Admin: 11/13/22 08:26 Dose: 600 mg Loperamide HCl (Loperamide Hcl 2 Mg Cap) 2 mg PO Q3H PRN PRN Reason: Diarrhea Stop: 12/13/22 09:45 Last Admin: 11/13/22 10:53 Dose: 2 mg Lorazepam (Lorazepam 0.5 Mg Tab) 0.5 mg PO TID PRN PRN Reason: Anxiety Stop: 12/05/22 19:50 Last Admin: 11/12/22 23:54 Dose: 0.5 mg Magnesium Oxide (Magnesium Oxide 400 Mg Tab) 400 mg PO BID [facility] Stop: 12/06/22 20:59 Last Admin: 11/13/22 08:24 Dose: 400 mg Melatonin (Melatonin 3 Mg Tab) 6 mg PO HS [facility] Stop: 12/05/22 20:59 Last Admin: 11/12/22 20:14 Dose: 6 mg Menthol (Cough Drop (Sugar Free) Rob 24 Rob/1 Box) 1 rob BUCCAL TID PRN PRN Reason: Sore Throat Stop: 12/11/22 22:49 Last Admin: 11/11/22 23:23 Dose: 1 rob Metoprolol Succinate (Metoprolol Succ 25mg Ext Rel Tab) 25 mg PO BID [facility] Stop: 12/05/22 20:59 Last Admin: 11/13/22 08:24 Dose: 25 mg Miscellaneous (Carbohydrates For Hypoglycemia ) 15 - 30 gm PO UD PRN PRN Reason: Hypoglycemia Protocol Stop: 12/05/22 17:38 Multivitamins/Minerals (Cerovite Adv Formula Tab) 1 tab PO QAM [facility] Stop: 12/06/22 08:59 Last Admin: 11/13/22 08:13 Dose: 1 tab Netarsudil (Netarsudil Mesylate 37 Drops/2.5 Ml Btl) 1 drops OPL HS [facility] Stop: 12/06/22 20:59 Last Admin: 11/12/22 20:20 Dose: 1 drops Nitroglycerin (Nitroglycerin Sl 0.4 Mg/Tab Tab) 0.4 mg SL Q5M PRN PRN Reason: Chest Pain Stop: 12/05/22 18:39 Nystatin (Nystatin Powder 15gm Btl) 1 appln EXT TID PRN PRN Reason: irritation Stop: 12/05/22 19:50 Last Admin: 11/07/22 21:52 Dose: 1 appln Pantoprazole Sodium (Pantoprazole 40 Mg Tab) 40 mg PO QAM [facility] Stop: 12/06/22 08:59 Last Admin: 11/13/22 08:24 Dose: 40 mg Potassium Chloride (Potassium Chloride Crtab 20 Meq Tabcr) 20 meq PO BID LIBBY Stop: 12/06/22 20:59 Last Admin: 11/13/22 08:23 Dose: 20 meq Prednisone (Pred[facility]one 5 Mg Tab) [facility] Stop: 12/06/22 08:59 Last Admin: 11/13/22 08:26 Dose: 5 mg Spironolactone (Spironolactone 25 Mg Tab) 25 mg PO DAILY LIBBY Stop: 12/13/22 07:59 Last Admin: 11/13/22 08:11 Dose: 25 mg Tamsulosin HCl (Tamsulosin Hcl 0.4 Mg Cap) 0.4 mg PO HS [facility] Stop: 12/05/22 20:59 Last Admin: 11/12/22 20:16 Dose: 0.4 mg
[2022-11-13] MEDS: ALUMINUM/MAGNESIUM/SIMETH (MAALOX MAX) 30 ML UDC PO PRN (20:39)
[2022-11-13] MEDS: ATORVASTATIN 40 MG TAB PO SCH (20:40)
[2022-11-13] MEDS: ACETAMINOPHEN 500 MG TAB PO SCH (20:41)
[2022-11-13] MEDS: NETARSUDIL MESYLATE 37 DROPS/2.5 ML BTL OPL SCH (20:41)
[2022-11-13] MEDS: TAMSULOSIN HCL 0.4 MG CAP PO SCH (20:41)
[2022-11-13] MEDS: LATANOPROST 0.005% OP SOLN 2.5 ML BTL OPB SCH (20:41)
[2022-11-13] MEDS: MELATONIN 3 MG TAB PO SCH (20:42)
[2022-11-13] MEDS: CYANOCOBALAMIN (B-12) 500 MCG TABLET PO SCH (20:43)
[2022-11-13] MEDS: HYDROXYCHLOROQUINE SULFATE 200 MG TAB PO SCH (20:43)
[2022-11-13] MEDS: LORazepam 0.5 MG TAB PO PRN (23:37)
[2022-11-14] MEDS: FUROSEMIDE 100 MG in DEXTROSE 5% 90 ML IV SCH ×4 (06:06→22:30)
[2022-11-14] MEDS: LEVOTHYROXINE SODIUM 125 MCG TABLET PO SCH (06:06)
[2022-11-14 07:13] LABS: BUN Creatinine Ratio 32.1 (10-20); Calcium 9.1 mg/dl (8.6-10.3); Creatinine Clr Calc Pharmacy 60.6 ml/min; Est GFR (African American) 58.7 ml/min; Est GFR (Non-African American) 50.7 ml/min; Magnesium 1.9 mg/dl (1.7-2.4); Potassium 3.7 mmol/L (3.5-5.1)
[2022-11-14] MEDS: GABAPENTIN 400 MG CAP PO SCH ×3 (07:36→20:53)
[2022-11-14] MEDS ORDERED: POTASSIUM CHLORIDE CRTAB 20 MEQ TABCR PO STA (07:36)
[2022-11-14] MEDS: CEROVITE ADV FORMULA TAB PO SCH (07:36)
[2022-11-14] MEDS: FERROUS SULFATE 325 MG TAB PO SCH (07:36)
[2022-11-14] MEDS: PANTOprazole 40 MG TAB PO SCH (07:37)
[2022-11-14] MEDS: SPIRONOLACTONE 25 MG TAB PO SCH (07:37)
[2022-11-14] MEDS: POTASSIUM CHLORIDE CRTAB 20 MEQ TABCR PO SCH ×2 (07:37→20:51)
[2022-11-14] MEDS: INSULIN ASPART PER UNIT CHARGE SC SCH ×4 (07:38→21:05)
[2022-11-14] MEDS: CLOPIDOGREL BISULFATE 75 MG TAB PO SCH (07:38)
[2022-11-14] MEDS: PANCREAZE (LIPASE 10,500U) CAP PO SCH ×4 (07:38→20:54)
[2022-11-14] MEDS: PANCREAZE (LIPASE 4,200U) CAP PO SCH ×4 (07:39→20:51)
[2022-11-14] MEDS: ADVANCED PROBIOTIC 1250 MG CAPSULE PO SCH (07:39)
[2022-11-14] MEDS: predniSONE 5 MG TAB PO SCH (07:39)
[2022-11-14] MEDS: ASPIRIN 81 MG ECTAB PO SCH (07:39)
[2022-11-14] MEDS: MAGNESIUM OXIDE 400 MG TAB PO SCH ×2 (07:40→20:54)
[2022-11-14] MEDS: ASCORBIC ACID 500 MG TAB PO SCH (07:40)
[2022-11-14] MEDS: FOLIC ACID 1 MG TAB PO SCH (07:40)
[2022-11-14] MEDS: CLOTRIMAZOLE 1% CR 15 GM TUBE EXT SCH ×2 (07:41→20:50)
[2022-11-14] MEDS: BETAXOLOL HCL 0.5% OPL SCH ×2 (07:42→20:48)
[2022-11-14] MEDS: LATANOPROST 0.005% OP SOLN 2.5 ML BTL OPB SCH ×2 (07:42→20:49)
[2022-11-14] MEDS: ENOXAPARIN INJ 40 MG/0.4 ML SYR SQ SCH (07:43)
[2022-11-14] MEDS: FLUTICASONE PROPIONATE NA SPR 16 GM BTL SCH (07:43)
[2022-11-14] MEDS: ERYTHROMYCIN OP OINT 5 MG/GM 3.5 GM TUBE OPB SCH ×4 (07:43→20:50)
[2022-11-14] MEDS: BRIMONIDINE TARTRATE 0.2% 5ML OPL SCH ×2 (07:44→20:49)
[2022-11-14 07:50] LABS: Acanthocytes 1+; Basophils # (auto) 0.04 K/uL (0-0.2); Basophils % (auto) 0.6 %; Hematocrit (blood only) 35.5 % (37.0-47.0); Hemoglobin 11.2 g/dl (12.0-16.0); Immature Granulocytes # (auto) 0.02 K/uL (0.01-0.20); Immature Granulocytes % (auto) 0.3 %; Lymphocytes # (auto) 0.65 K/uL (1.2-3.4); Lymphocytes % (auto) 10.2 %; Mean Corpuscular Hemoglobin 27.9 pg (25.0-34.0); Mean Corpuscular Hgb Conc 31.5 g/dL (32.0-36.0); Mean Corpuscular Volume 88.3 fL (80.0-100.0); Mean Platelet Volume 11.2 fL (9.4-12.4); Monocytes # (auto) 0.48 K/uL (0.11-0.59); Monocytes % (auto) 7.5 %; Neutrophils # (auto) 5.21 K/uL (1.40-6.50); Neutrophils % (auto) 81.4 %; Platelet Count 80 K/uL (130-400); Platelet Estimate Decreased (Normal); Polychromasia 1+; RDW Coefficient of Variation 17.1 % (11.5-14.5); RDW Standard Deviation 54.5 fL (36.4-46.3); Red Blood Count 4.02 M/uL (4.20-5.40)
--- NOTE | 2022-11-14 08:29 | Cardiology Progress Note ---
Date of Service November 14, 2022 Assessment & Plan (1) Acute on chronic combined systolic (congestive) and diastolic (congestive) heart failure: (2) Aortic stenosis: (3) CKD (chronic kidney disease): Plan 72 year old female with ischemic heart disease and severe aortic stenosis adm itted with acute decompensated right greater than left biventricular congestive heart failure signs/symptoms, HFrEF, anasarca. Patient remains volume overload. RECOMMENDATIONS: Continue IV furosemide infusion at 10 mg/hr, reduced dose of beta-gio therapy. Continue spironolactone 25 mg/day. Supplement potassium orally, additional 40 mEq this AM Note: Off ACEI/ARB secondary to hypotension Follow daily weights, fluid balance, GFR, and electrolytes. Patient is not chronically anticoagulated due to bleeding risk. Continue dual antiplatelet therapy with history of drug-eluting stent implan tation to the mid LAD March 2022. Evaluation of severe versus pseudo-aortic stenosis with transesophageal echocardiogram and dobutamine stress echocardiography planned as an outpatient. Admission and Anticipated Discharge Date Admission Date: November 05, 2022 Supervising Physician Co-Signing Physician Notes Attending Staff: Pt was seen and evaluated with [facility] staff. 50 min spent addressing challenges, educating and advancing daily plan of care 72 yo woman presenting with worsening LE edema Dx: Acute on chronic combined heart failure Cardiomyopathy LVEF 25% Combination of ischemic heart disease + Severe Case reviewed Markedly volume overloaded + JVP to under jaw S1 - murmur - Muted S2 Decreased BS at Right base + Abdominal Wall Edema +3 Bilateral LE edema extending to the inguinal folds Plan: Aggressive diuresis Lasix 80 IV x1 Increase Lasix infusion to 20 mg IV/hr Consider Purewik for urine collection MARIXA - OFF Continue Lopressor to 12.5 mg po BID K+ goal 4.5-5 Increase standing KCL to 40 meq po BID Supplemental K+ as needed to achieve goal Continue Aldactone 25 mg po per day Mag goal >2 + Stent Continue ASA 81 mg po per day Continue Plavix 75 mg po per day Continue Statin Plans for TAVR evaluation @ [facility] Dylan Saravia Subjective Patient seen and examined. Chart, medications, and telemetry reviewed. Feels better. Less dyspneic. Abdomen is less hard. Less weeping of fluid. Ongoing diarrhea. No chest pain. palpitations. No dizziness or near syncope. No subjective fevers or chills I/O's - 1,374 mL's the last 24 hours, - 7,054 mL's overall. Telemetry: Paced in the 70's-80's Events Overnight: * Aggressive IV Diuretics started Review of Systems Review of Systems: Complete review of systems is otherwise as stated above, negative, noncontributory Physical Exam Physical Exam: General: Alert, no distress, well nourished, well developed, comfortable and cooperative HENT: Normocephalic. Atraumatic. Neck: + JVD. to Jaw Heart: Distant heart sounds. Regular at 76 bpm. Grade II/ systolic murmur. Lungs: Decreased at the bases. Bibasilar rales. No wheeze. Abdomen: +BS. Distended. Nontender. No masses. Extremities: 2+ pitting edema, diffuse. No clubbing. No cyanosis Pulses: radial=2/4, posterior tibial=0/4. Skin: + Fungal appearing rash on lower extremities. Limited neurological examination: No focal deficit. Results & Data Vital Signs (Past 12 Hours) Vital Signs Temp Pulse Pulse Resp BP Pulse Ox O2 Del Method 11/14/22 03:00 36.3 C L 72 18 99/71 L 100 Nasal Cannula 11/14/22 00:09 71 11/13/22 23:00 36.5 C 68 18 104/74 100 Nasal Cannula 11/13/22 22:33 Nasal Cannula O2 Flow Rate 11/14/22 03:00 11/14/22 00:09 11/13/22 23:00 11/13/22 22:33 2 Laboratory Results CBC 11/14/22 Range/Units 06:39 WBC 6.40 (4.8-10.8) K/ul RBC 4.02 L (4.20-5.40) M/uL Hgb 11.2 L (12.0-16.0) g/dl Hct 35.5 L (37.0-47.0) % Plt Count 80 L (130-400) K/uL Neut # (Auto) 5.21 (1.40-6.50) K/uL Lymph # (Auto) 0.65 L (1.2-3.4) K/uL Elbert # (Auto) 0.48 (0.11-0.59) K/uL Eos # (Auto) 0.00 (0-0.50) K/uL Baso # (Auto) 0.04 (0-0.2) K/uL Comprehensive Metabolic Panel 11/14/22 Range/Units 06:39 Sodium 141 (136-145) mmol/L Potassium 3.7 (3.5-5.1) mmol/L Chloride 101 (98-107) mmol/L Carbon Dioxide 35 H (21-32) mmol/L BUN 35 H (6-23) mg/dl Creatinine 1.09 (0.6-1.2) mg/dl Glucose 79 (70-99(Fasting)) mg/dl Calcium 9.1 (8.6-10.3) mg/dl Intake and Output 11/13/22 11/14/22 11/14/22 22:59 06:59 14:59 Intake Total 95.667 / 677.167 91.5 / 677.167 Output Total 2051 Balance -655.333 / -1374.833 -658.5 / -1374.833 Intake: IV 95.667 / 187.167 91.5 / 187.167 Furosemide 100 mg In Dextrose 5 95.667 / 187.167 91.5 / 187.167 % 90 ml @ 10 MG/HR 10 mls/hr IV .Q10H LIBBY Rx#:[id number] Output: Urine Amount (Catheter) 2049 Red/Indwelling 2049 # Bowel Movements 1 / 2 Other: Weight 125.3 kg Weight Measurement Method Built in [facility]
[2022-11-14] MEDS: LANTUS PER UNIT CHARGE SQ SCH ×2 (08:56→21:04)
[2022-11-14] MEDS: METOPROLOL SUCC 25MG EXT REL TAB PO SCH ×2 (08:57→20:53)
[2022-11-14] MEDS ORDERED: FUROSEMIDE 40 MG/4 ML VIAL IV ONE ×2 (09:25→09:35)
[2022-11-14] MEDS: LOPERAMIDE HCL 2 MG CAP PO PRN ×2 (09:36→21:04)
[2022-11-14] MEDS: ALUMINUM/MAGNESIUM/SIMETH (MAALOX MAX) 30 ML UDC PO PRN ×2 (09:36→21:04)
--- NOTE | 2022-11-14 12:17 | Hospitalist Progress Note ---
Date of Service November 14, 2022 Assessment & Plan (1) Acute on chronic combined systolic (congestive) and diastolic (congestive) heart failure: Plan: is is a 72 y/o with a complicated medical history including combined systolic and diastolic heart failure, CAD s/p PCI with WALTER, aortic stenosis (suspected severe), tachy-wilfrido syndrome s/p PPM in 2021, persistent afib since 07/01, bilateral carotid bruits, insulin-requiring DM, blindness, rheumatoid arthritis, chronic prednisone use, LAQUITA on CPAP, CKD3a, hypothyroidism, HTN, open-angle glaucoma, and recurrent liver cancer s/p recent placement of radiation beads. Presented with progressive shortness of breath over 5 weeks which did not improve even with increasing diuretics Her leg edema has been seeping liquid constantly Started with Lasix 40mg IV BID--> increased to lasix 60mg BID 11/08 40lb over ideal weight Appreciate cardiology input and recommendation Lasix has been increased to 80 mg IV twice daily and added spironolactone 12.5 mg daily with supplemental potassium as needed Negative balance of more than 3 L so far and will continue monitor intake and output We will continue current doses of diuretics as per the superintendent oil field drilling and the case discussed with the superintendent oil field drilling Has been feeling better and is out of bed on a chair Denies any significant symptoms except weakness We will continue with PT and OT evaluation Remains stable and has been diuresing enough Continue current dose of furosemide and monitor kidney function Creatinine remains stable and the Lasix doses have been changed to intravenous drip We will monitor I&O and renal function Has been having enough diuresis and so for about 7 L negative fluid balance Continue with aggressive diuresis with intravenous Lasix drip today and monitor BMP (2) Tinea corporis: Plan: Rash on left knee seems most consistent with tinea corporis - Started clotrimazole 1% cream BID for a 14 days course (3) Chronic kidney disease, stage 3: Plan: monitor Cr with diuresis Creatinine remains stable with normal electrolytes Creatinine remains stable and electrolytes are normal Kidney function has gotten a little worse but that will be monitored We will get PRP checked-creatinine remains stable We will check BNP and electrolytes tomorrow (4) Diabetes mellitus, type 2: Plan: Basal and sliding scale insulin Diabetic diet Has been having low blood sugar around upper 60s We will decrease Lantus from 15 units twice daily to 10 units twice daily Sugar remains stable following adjustment of insulin (5) Hypothyroidism: Plan: Continue replacement (6) Sleep apnea: Plan: CPAP ordered - settings from pt's outpatient records (7) Glaucoma: (8) Rheumatoid arthritis: Plan: Methotrexate currently on hold due to leg wounds - will continue prednisone and plaquenil Remains free from any significant arthritic pain We will hold methotrexate for now No acute arthritis involving any of the joint (9) Iron deficiency anemia: (10) Venous stasis ulcers: Plan: Wound care consult She has chronic LE wounds for which she is following with wound care but she has been told that until the fluid overload is improved, her wounds will be unlikely to heal. Right leg cellulitis Extensive antibiotic allergy noted. Started linezolid 600mg BID, anticipate 7 day course. Dressing as per wound care Advised to keep the legs elevated while in bed We will continue with the dressing as per wound care (11) Hepatocellular carcinoma: Plan: OP follow up Plan Code status: Full code but no prolonged heroic measures. Son is her POA DVT Prophylaxis: Lovenox Disposition-- Evaluated by PT/OT, rehab recommended Likely to be discharged tomorrow to [facility] Admission and Anticipated Discharge Date Admission Date: November 05, 2022 Subjective 11/10/2022 The patient was seen and examined in telemetry unit She has been feeling much better and denies any shortness of breath at rest She still gets shortness of breath with minimal exertion Denies any chest pain and/or palpitation and the leg swelling has been improving 11/11/2022 The patient was seen and examined in telemetry unit She has been feeling a lot better but not yet ready to be discharged Denies any significant symptoms She will get PT and OT evaluation 11/12/2022 The patient was seen and examined in telemetry unit She has been feeling much better She continues to diurese and IV Lasix will be continued Denies any chest pain and/or palpitation or any shortness of breath at rest 11/13/2022 The patient was seen and examined in telemetry unit She has been feeling much better and denies any symptoms at rest Her Lasix will be changed to IV pulse therapy She is out of bed on a chair and remains asymptomatic 11/14/2022 The patient was seen and examined in telemetry unit She has been feeling much better and has been having enough diuresis Denies any symptoms Feels that her abdomen is getting smaller and breathing is getting better Review of Systems Review of Systems: All systems reviewed and are unremarkable except as noted below Physical Exam Physical Exam: Sitting on a chair without any acute distress Constitutional: well developed, well nourished, + ill appearing and + morbidly obese Eyes: PERRL, conjunctivae normal, anicteric sclerae ENMT: external ear and nose normal, oropharynx normal Neck: trachea midline, no thyromegaly Respiratory: no respiratory distress Auscultation: + diminished lung sounds and + crackles (Bibasal crackles) Cardiovascular: Rate/Rhythm: regular rate and regular rhythm; not tachycardic Heart Sounds: normal S1 and normal S2; no murmur Extremities: + edema (1+ edema bilaterally with seeping of fluid) Gastrointestinal (Abdomen): Inspection/Auscultation: + abdomen distended and normal bowel sounds Percussion/Palpation: abdomen soft; abdomen nontender Neurologic: normal touch/pain/proprioception and moves all extremities; no focal motor deficits Psychiatric: A+Ox3, euthymic affect Lymphatic: no cervical or axillary lymphadenopathy Results & Data Results & Data Vital Signs (Past 12 Hours) Vital Signs Temp Pulse Pulse Resp BP Pulse Ox O2 Del Method 11/14/22 11:14 36.9 C 103 H 19 115/74 100 Nasal Cannula 11/14/22 08:00 Nasal Cannula 11/14/22 07:00 74 11/14/22 08:30 36.7 C 72 19 98/57 L 99 Nasal Cannula 11/14/22 03:00 36.3 C L 72 18 99/71 L 100 Nasal Cannula O2 Flow Rate 11/14/22 11:14 2.0 11/14/22 08:00 2 11/14/22 07:00 11/14/22 08:30 2.0 11/14/22 03:00 Laboratory Results Short CBC 11/14/22 Range/Units 06:39 WBC 6.40 (4.8-10.8) K/ul Hgb 11.2 L (12.0-16.0) g/dl Hct 35.5 L (37.0-47.0) % Plt Count 80 L (130-400) K/uL BMP 11/14/22 06:39 Sodium 141 Potassium 3.7 Chloride 101 Carbon Dioxide 35 H BUN 35 H Creatinine 1.09 Glucose 79 Calcium 9.1 Medications Administered Current Inpatient Medications Acetaminophen (Acetaminophen 325 Mg Tab) 650 mg PO Q4H PRN PRN Reason: Pain or Fever Stop: 12/05/22 18:39 Last Admin: 11/06/22 08:40 Dose: 650 mg Acetaminophen (Acetaminophen 500 Mg Tab) 1,000 mg PO HS [facility] Stop: 12/05/22 20:59 Last Admin: 11/13/22 20:41 Dose: 1,000 mg Al Hydrox/Mg Hydrox/Simethicone (Aluminum/Magnesium/Simeth (Maalox Max) 30 Ml Udc) 30 ml PO Q6H PRN PRN Reason: Heartburn Stop: 12/13/22 19:30 Last Admin: 11/14/22 09:36 Dose: 30 ml Lipase/Protease/Amylase (Pancreaze (Lipase 10,500u) Cap) 2 cap PO QIDM [facility]BY Stop: 12/05/22 20:59 Last Admin: 11/14/22 11:41 Dose: 2 cap Lipase/Protease/Amylase (Pancreaze (Lipase 4,200u) Cap) 1 cap PO QIDM [facility] Stop: 12/05/22 20:59 Last Admin: 11/14/22 11:41 Dose: 1 cap Ascorbic Acid (Ascorbic Acid 500 Mg Tab) 500 mg PO QAM [facility] Stop: 12/06/22 08:59 Last Admin: 11/14/22 07:40 Dose: 500 mg Aspirin (Aspirin 81 Mg Ectab) 81 mg PO QAM [facility] Stop: 12/06/22 08:59 Last Admin: 11/14/22 07:39 Dose: 81 mg Atorvastatin Calcium (Atorvastatin 40 Mg Tab) 40 mg PO HS [facility] Stop: 12/05/22 20:59 Last Admin: 11/13/22 20:40 Dose: 40 mg Betaxolol HCl (Betaxolol Hcl 0.5% Op 5 Ml Btl) 1 drops OPL AMHS [facility] Stop: 12/05/22 20:59 Last Admin: 11/14/22 07:42 Dose: 1 drops Brimonidine Tartrate (Brimonidine Tartrate 0.2% 5ml) 1 drops OPL BID [facility] Stop: 12/05/22 20:59 Last Admin: 11/14/22 07:44 Dose: 1 drops Calcium Carbonate (Calcium Carbonate 500 Mg Chewable Tab) 500 mg PO QID PRN PRN Reason: Indigestion Stop: 12/09/22 18:41 Clopidogrel Bisulfate (Clopidogrel Bisulfate 75 Mg Tab) 75 mg PO QAM [facility] Stop: 12/06/22 08:59 Last Admin: 11/14/22 07:38 Dose: 75 mg Clotrimazole (Clotrimazole 1% Cr 15 Gm Tube) 1 appln EXT BID [facility] Stop: 11/19/22 20:59 Last Admin: 11/14/22 07:41 Dose: 1 appln Cyanocobalamin (Cyanocobalamin (B-12) 500 Mcg Tablet) 1,500 mcg PO QPM LIBBY Stop: 12/05/22 20:59 Last Admin: 11/13/22 20:43 Dose: 1,500 mcg Dextrose (Dextrose 50% 50 Ml Syringe) 25 - 50 ml IV UD PRN; Protocol PRN Reason: Hypoglycemia Protocol Stop: 12/05/22 17:38 Enoxaparin Sodium (Enoxaparin Inj 40 Mg/0.4 Ml Syr) 40 mg SQ QAM [facility] Stop: 12/06/22 08:59 Last Admin: 11/14/22 07:43 Dose: 40 mg Erythromycin (Erythromycin Op Oint 5 Mg/Gm 3.5 Gm Tube) 1 appln OPB QID [facility] Stop: 11/15/22 20:59 Last Admin: 11/14/22 07:43 Dose: 1 appln Ferrous Sulfate (Ferrous Sulfate 325 Mg Tab) 325 mg PO DAILY [facility] Stop: 12/06/22 08:59 Last Admin: 11/14/22 07:36 Dose: 325 mg Fluticasone Propionate (Fluticasone Propionate Na Spr 16 Gm Btl) 2 sprays NA QAM [facility] Stop: 12/06/22 08:59 Last Admin: 11/14/22 07:43 Dose: 2 sprays Folic Acid (Folic Acid 1 Mg Tab) 1 mg PO QAM [facility] Stop: 12/06/22 08:59 Last Admin: 11/14/22 07:40 Dose: 1 mg Gabapentin (Gabapentin 400 Mg Cap) 400 mg PO TID [facility] Stop: 12/05/22 20:59 Last Admin: 11/14/22 07:36 Dose: 400 mg Glucagon (Glucagon For Inj 1 Mg Vial) 1 mg SQ UD PRN; Protocol PRN Reason: Hypoglycemia Protocol Stop: 12/05/22 17:38 Glucose (Glucose 10 Tab/Tube) 4 - 8 tab PO UD PRN; Protocol PRN Reason: Hypoglycemia Treatment Stop: 12/05/22 17:38 Glucose (Glucose 40% Gel 15 Gm Tube) 15 - 30 gm PO UD PRN; Protocol PRN Reason: Hypoglycemia Protocol Stop: 12/05/22 17:38 Hydroxychloroquine Sulfate (Hydroxychloroquine Sulfate 200 Mg Tab) 400 mg PO HS [facility] Stop: 12/05/22 20:59 Last Admin: 11/13/22 20:43 Dose: 400 mg Furosemide 100 mg/ Dextrose 100 mls @ 20 mls/hr IV .Q5H [facility] Stop: 12/13/22 10:29 Last Admin: 11/14/22 06:06 Dose: 10 mg/hr, 10 mls/hr Insulin Aspart (Insulin Aspart Per Unit Charge) 0 units SC ACHS [facility] Stop: 12/05/22 20:59 Last Admin: 11/14/22 11:53 Dose: 3 units Insulin Glargine (Lantus Per Unit Charge) 10 units SQ BID [facility] Stop: 12/11/22 20:59 Last Admin: 11/14/22 08:56 Dose: 10 units Lactobacillus Acidophilus (Advanced Probiotic 1250 Mg Capsule) 1 cap PO QAM [facility] Stop: 12/06/22 08:59 Last Admin: 11/14/22 07:39 Dose: 1 cap Latanoprost (Latanoprost 0.005% Op Soln 2.5 Ml Btl) 1 drops OPB HS [facility] Stop: 12/05/22 20:59 Last Admin: 11/14/22 07:42 Dose: 1 drops Levothyroxine Sodium (Levothyroxine Sodium 125 Mcg Tablet) 125 mcg PO DAILYBB [facility] Stop: 12/06/22 06:29 Last Admin: 11/14/22 06:06 Dose: 125 mcg Loperamide HCl (Loperamide Hcl 2 Mg Cap) 2 mg PO Q3H PRN PRN Reason: Diarrhea Stop: 12/13/22 09:45 Last Admin: 11/14/22 09:36 Dose: 2 mg Lorazepam (Lorazepam 0.5 Mg Tab) 0.5 mg PO TID PRN PRN Reason: Anxiety Stop: 12/05/22 19:50 Last Admin: 11/13/22 23:37 Dose: 0.5 mg Magnesium Oxide (Magnesium Oxide 400 Mg Tab) 400 mg PO BID [facility] Stop: 12/06/22 20:59 Last Admin: 11/14/22 07:40 Dose: 400 mg Melatonin (Melatonin 3 Mg Tab) 6 mg PO HS [facility] Stop: 12/05/22 20:59 Last Admin: 11/13/22 20:42 Dose: 6 mg Menthol (Cough Drop (Sugar Free) Rob 24 Rob/1 Box) 1 rob BUCCAL TID PRN PRN Reason: Sore Throat Stop: 12/11/22 22:49 Last Admin: 11/11/22 23:23 Dose: 1 rob Metoprolol Succinate (Metoprolol Succ 25mg Ext Rel Tab) 12.5 mg PO BID [facility]BY Stop: 12/13/22 20:59 Last Admin: 11/14/22 08:57 Dose: 12.5 mg Miscellaneous (Carbohydrates For Hypoglycemia ) 15 - 30 gm PO UD PRN PRN Reason: Hypoglycemia Protocol Stop: 12/05/22 17:38 Multivitamins/Minerals (Cerovite Adv Formula Tab) 1 tab PO QAM [facility] Stop: 12/06/22 08:59 Last Admin: 11/14/22 07:36 Dose: 1 tab Netarsudil (Netarsudil Mesylate 37 Drops/2.5 Ml Btl) 1 drops OPL HS [facility] Stop: 12/06/22 20:59 Last Admin: 11/13/22 20:41 Dose: 1 drops Nitroglycerin (Nitroglycerin Sl 0.4 Mg/Tab Tab) 0.4 mg SL Q5M PRN PRN Reason: Chest Pain Stop: 12/05/22 18:39 Nystatin (Nystatin Powder 15gm Btl) 1 appln EXT TID PRN PRN Reason: irritation Stop: 12/05/22 19:50 Last Admin: 11/07/22 21:52 Dose: 1 appln Pantoprazole Sodium (Pantoprazole 40 Mg Tab) 40 mg PO QAM [facility] Stop: 12/06/22 08:59 Last Admin: 11/14/22 07:37 Dose: 40 mg Potassium Chloride (Potassium Chloride Crtab 20 Meq Tabcr) 20 meq PO BID [facility] Stop: 12/06/22 20:59 Last Admin: 11/14/22 07:37 Dose: 20 meq Prednisone (Prednisone 5 Mg Tab) 5 mg PO QAM [facility] Stop: 12/06/22 08:59 Last Admin: 11/14/22 07:39 Dose: 5 mg Spironolactone (Spironolactone 25 Mg Tab) 25 mg PO DAILY [facility] Stop: 12/13/22 07:59 Last Admin: 11/14/22 07:37 Dose: 25 mg Tamsulosin HCl (Tamsulosin Hcl 0.4 Mg Cap) 0.4 mg PO HS [facility] Stop: 12/05/22 20:59 Last Admin: 11/13/22 20:41 Dose: 0.4 mg
[2022-11-14] MEDS: NETARSUDIL MESYLATE 37 DROPS/2.5 ML BTL OPL SCH (20:50)
[2022-11-14] MEDS: ACETAMINOPHEN 500 MG TAB PO SCH (20:52)
[2022-11-14] MEDS: HYDROXYCHLOROQUINE SULFATE 200 MG TAB PO SCH (20:52)
[2022-11-14] MEDS: MELATONIN 3 MG TAB PO SCH (20:52)
[2022-11-14] MEDS: CYANOCOBALAMIN (B-12) 500 MCG TABLET PO SCH (20:53)
[2022-11-14] MEDS: TAMSULOSIN HCL 0.4 MG CAP PO SCH (20:54)
[2022-11-14] MEDS: ATORVASTATIN 40 MG TAB PO SCH (20:55)
[2022-11-14] MEDS: LORazepam 0.5 MG TAB PO PRN (23:29)
[2022-11-15] MEDS ORDERED: PROMETHAZINE HCL 12.5 MG in SODIUM CHLORIDE 0.9% 50 ML IV PRN (00:07)
[2022-11-15] MEDS: FUROSEMIDE 100 MG in DEXTROSE 5% 90 ML IV SCH ×4 (03:30→19:45)
[2022-11-15] MEDS: LEVOTHYROXINE SODIUM 125 MCG TABLET PO SCH (05:18)
[2022-11-15 06:50] LABS: Basophils # (auto) 0.02 K/uL (0-0.2); Basophils % (auto) 0.3 %; Hematocrit (blood only) 35.1 % (37.0-47.0); Immature Granulocytes # (auto) 0.01 K/uL (0.01-0.20); Immature Granulocytes % (auto) 0.2 %; Lymphocytes # (auto) 0.49 K/uL (1.2-3.4); Lymphocytes % (auto) 7.6 %; Mean Corpuscular Hemoglobin 27.7 pg (25.0-34.0); Mean Corpuscular Hgb Conc 31.3 g/dL (32.0-36.0); Mean Corpuscular Volume 88.4 fL (80.0-100.0); Mean Platelet Volume 11.7 fL (9.4-12.4); Monocytes # (auto) 0.55 K/uL (0.11-0.59); Monocytes % (auto) 8.5 %; Neutrophils % (auto) 83.4 %; Platelet Count 71 K/uL (130-400); RDW Coefficient of Variation 17.2 % (11.5-14.5); RDW Standard Deviation 54.1 fL (36.4-46.3); Red Blood Count 3.97 M/uL (4.20-5.40); White Blood Count 6.47 K/ul (4.8-10.8)
--- NOTE | 2022-11-15 07:08 | Cardiology Progress Note ---
Date of Service November 15, 2022 Assessment & Plan (1) Acute on chronic combined systolic (congestive) and diastolic (congestive) heart failure: (2) Aortic stenosis: (3) CKD (chronic kidney disease): Plan 72 year old female with ischemic heart disease and severe aortic stenosis adm itted with acute decompensated right greater than left biventricular congestive heart failure signs/symptoms, HFrEF, anasarca. Patient remains volume overload. RECOMMENDATIONS: Continue IV furosemide infusion at 10 mg/hr, reduced dose of beta-gio therapy. Continue spironolactone 25 mg/day. Supplement potassium orally, additional 40 mEq this AM Note: Off ACEI/ARB secondary to hypotension Follow daily weights, fluid balance, GFR, and electrolytes. Patient is not chronically anticoagulated due to bleeding risk. Continue dual antiplatelet therapy with history of drug-eluting stent implan tation to the mid LAD March 2022. Evaluation of severe versus pseudo-aortic stenosis with transesophageal echocardiogram and dobutamine stress echocardiography planned as an outpatient. Admission and Anticipated Discharge Date Admission Date: November 05, 2022 Supervising Physician Co-Signing Physician Notes Attending Staff: Pt was seen and evaluated with [facility] staff. 50 min spent addressing challenges, educating and advancing daily plan of care 72 yo woman presenting with worsening LE edema Dx: Acute on chronic combined heart failure Cardiomyopathy LVEF 25% Combination of ischemic heart disease + Severe Case reviewed Markedly volume overloaded + JVP to under jaw S1 - murmur - Muted S2 Decreased BS at Right base + Abdominal Wall Edema +3 Bilateral LE edema extending to the inguinal folds Plan: Aggressive diuresis Lasix 100 IV x1 Continue Lasix infusion to 20 mg IV/hr Consider Purewik for urine collection MARIXA - OFF Continue Lopressor to 12.5 mg po BID; may need to be held BID electrolyte check K+ goal 4.5-5 Continue KCL 40 meq po BID Supplemental K+ as needed to achieve goal Continue Aldactone 25 mg po per day Mag goal >2 STANDING WEIGHT DAILY + Stent Continue ASA 81 mg po per day Continue Plavix 75 mg po per day Continue Lipitor 40 mg po per day Check LDL Plans for TAVR evaluation @ [facility] Dylan Saravia Subjective 11/10/2022 The patient was seen and examined in telemetry unit She has been feeling much better and denies any shortness of breath at rest She still gets shortness of breath with minimal exertion Denies any chest pain and/or palpitation and the leg swelling has been improving 11/11/2022 The patient was seen and examined in telemetry unit She has been feeling a lot better but not yet ready to be discharged Denies any significant symptoms She will get PT and OT evaluation 11/12/2022 The patient was seen and examined in telemetry unit She has been feeling much better She continues to diurese and IV Lasix will be continued Denies any chest pain and/or palpitation or any shortness of breath at rest 11/13/2022 The patient was seen and examined in telemetry unit She has been feeling much better and denies any symptoms at rest Her Lasix will be changed to IV pulse therapy She is out of bed on a chair and remains asymptomatic 11/14/2022 The patient was seen and examined in telemetry unit She has been feeling much better and has been having enough diuresis Denies any symptoms Feels that her abdomen is getting smaller and breathing is getting better 11/15/2022 Pt diuresing Marginal SBP - Lopressor held Review of Systems Review of Systems: All systems reviewed & are unremarkable except as noted in HPI & below Complete review of systems is otherwise as stated above, negative, noncontributory Physical Exam Physical Exam: General: Alert, no distress, well nourished, well developed, comfortable and cooperative HENT: Normocephalic. Atraumatic. Neck: + JVD. to Jaw Heart: Distant heart sounds. Regular at 76 bpm. Grade II/ systolic murmur. Lungs: Decreased at the bases. Bibasilar rales. No wheeze. Abdomen: +BS. Distended. Nontender. No masses. Abdominal wall edema Extremities: 2+ pitting edema, diffuse. No clubbing. No cyanosis Pulses: radial=2/4, posterior tibial=0/4. Skin: + Fungal appearing rash on lower extremities. Limited neurological examination: No focal deficit. Results & Data Vital Signs (Past 12 Hours) Vital Signs Temp Pulse Pulse Resp BP Pulse Ox O2 Del Method 11/15/22 00:00 80 11/15/22 04:24 36.3 C L 85 19 105/64 99 Room Air 11/14/22 23:25 36.6 C 74 20 103/63 97 Nasal Cannula 11/14/22 22:00 Nasal Cannula 11/14/22 19:21 36.9 C 93 H 18 126/75 99 Nasal Cannula O2 Flow Rate 11/15/22 00:00 11/15/22 04:24 11/14/22 23:25 2 11/14/22 22:00 2 11/14/22 19:21 2 Laboratory Results CBC 11/14/22 11/15/22 Range/Units 06:39 06:07 WBC 6.40 6.47 (4.8-10.8) K/ul RBC 4.02 L 3.97 L (4.20-5.40) M/uL Hgb 11.2 L 11.0 L (12.0-16.0) g/dl Hct 35.5 L 35.1 L (37.0-47.0) % Plt Count 80 L 71 L (130-400) K/uL Neut # (Auto) 5.21 5.40 (1.40-6.50) K/uL Lymph # (Auto) 0.65 L 0.49 L (1.2-3.4) K/uL [place] # (Auto) 0.48 0.55 (0.11-0.59) K/uL Eos # (Auto) 0.00 0.00 (0-0.50) K/uL Baso # (Auto) 0.04 0.02 (0-0.2) K/uL Comprehensive Metabolic Panel 11/15/22 Range/Units 06:07 Sodium 139 (136-145) mmol/L Potassium 4.0 (3.5-5.1) mmol/L Chloride 101 (98-107) mmol/L Carbon Dioxide 32 (21-32) mmol/L BUN 37 H (6-23) mg/dl Creatinine 1.06 (0.6-1.2) mg/dl Glucose 106 H (70-99(Fasting)) mg/dl Calcium 9.1 (8.6-10.3) mg/dl Intake and Output 11/14/22 11/15/22 11/15/22 22:59 06:59 14:59 Intake Total 626.666 / 1337.166 150.5 / 1337.166 Output Total 650 / 2202 602 / 2202 Balance -23.334 / -864.834 -451.5 / -864.834 Intake: IV 186.666 / 437.166 150.5 / 437.166 Furosemide 100 mg In Dextrose 5 186.666 / 386.666 100 / 386.666 % 90 ml @ 20 MG/HR 20 mls/hr IV .Q5H LIBBY Rx#:[id number] Promethazine HCl 12.5 mg In 50.5 / 50.5 Sodium Chloride 0.9% 50 ml @ 202 mls/hr IV Q6H PRN Rx#: [id number] Oral 440 / 900 Output: Urine Amount (Catheter) 650 / 2200 600 / 2200 Red/Indwelling 650 / 2200 600 / 2200 # Bowel Movements 2 / 2 Other: Other Intake Source Sips Weight 124.7 kg Weight Measurement Method Built in [facility]
[2022-11-15 07:10] LABS: BUN Creatinine Ratio 34.9 (10-20); Calcium 9.1 mg/dl (8.6-10.3); Creatinine Clr Calc Pharmacy 62.1 ml/min; Est GFR (African American) 60.8 ml/min; Est GFR (Non-African American) 52.4 ml/min; Phosphorus 3.2 mg/dl (2.5-4.9)
[2022-11-15] MEDS: LANTUS PER UNIT CHARGE SQ SCH ×2 (08:07→21:27)
[2022-11-15] MEDS: INSULIN ASPART PER UNIT CHARGE SC SCH ×4 (08:07→20:59)
[2022-11-15] MEDS: PANCREAZE (LIPASE 10,500U) CAP PO SCH ×4 (08:10→20:54)
[2022-11-15] MEDS: PANCREAZE (LIPASE 4,200U) CAP PO SCH ×4 (08:10→20:53)
[2022-11-15] MEDS: ASPIRIN 81 MG ECTAB PO SCH (08:24)
[2022-11-15] MEDS: CLOPIDOGREL BISULFATE 75 MG TAB PO SCH (08:25)
[2022-11-15] MEDS: CLOTRIMAZOLE 1% CR 15 GM TUBE EXT SCH ×2 (08:25→20:59)
[2022-11-15] MEDS: SPIRONOLACTONE 25 MG TAB PO SCH (08:25)
[2022-11-15] MEDS: ENOXAPARIN INJ 40 MG/0.4 ML SYR SQ SCH (08:26)
[2022-11-15] MEDS: POTASSIUM CHLORIDE CRTAB 20 MEQ TABCR PO SCH ×2 (08:26→20:54)
[2022-11-15] MEDS: ERYTHROMYCIN OP OINT 5 MG/GM 3.5 GM TUBE OPB SCH ×3 (08:26→17:19)
[2022-11-15] MEDS: BRIMONIDINE TARTRATE 0.2% 5ML OPL SCH ×2 (08:27→20:58)
[2022-11-15] MEDS: PANTOprazole 40 MG TAB PO SCH (08:27)
[2022-11-15] MEDS: FOLIC ACID 1 MG TAB PO SCH (08:27)
[2022-11-15] MEDS: BETAXOLOL HCL 0.5% OPL SCH ×2 (08:27→20:58)
[2022-11-15] MEDS: ASCORBIC ACID 500 MG TAB PO SCH (08:27)
[2022-11-15] MEDS: MAGNESIUM OXIDE 400 MG TAB PO SCH ×2 (08:27→20:55)
[2022-11-15] MEDS: predniSONE 5 MG TAB PO SCH (08:28)
[2022-11-15] MEDS: FERROUS SULFATE 325 MG TAB PO SCH (08:28)
[2022-11-15] MEDS: GABAPENTIN 400 MG CAP PO SCH ×3 (08:28→20:53)
[2022-11-15] MEDS: FLUTICASONE PROPIONATE NA SPR 16 GM BTL SCH (08:28)
[2022-11-15] MEDS: ADVANCED PROBIOTIC 1250 MG CAPSULE PO SCH (08:28)
[2022-11-15] MEDS: CEROVITE ADV FORMULA TAB PO SCH (08:28)
[2022-11-15] MEDS: METOPROLOL SUCC 25MG EXT REL TAB PO SCH ×2 (08:42→20:55)
[2022-11-15] MEDS ORDERED: FUROSEMIDE 10 MG/ML 10 ML VIAL IV ONE (10:00)
--- NOTE | 2022-11-15 11:40 | Hospitalist Progress Note ---
Date of Service November 15, 2022 Assessment & Plan (1) Acute on chronic combined systolic (congestive) and diastolic (congestive) heart failure: Plan: Wyatt is a 72 y/o with a complicated medical history including combined systolic and diastolic heart failure, CAD s/p PCI with WALTER, aortic stenosis (suspected severe), tachy-wilfrido syndrome s/p PPM in 2021, persistent afib since 07/01, bilateral carotid bruits, insulin-requiring DM, blindness, rheumatoid arthritis, chronic prednisone use, LAQUITA on CPAP, CKD3a, hypothyroidism, HTN, open-angle glaucoma, and recurrent liver cancer s/p recent placement of radiation beads. Presented with progressive shortness of breath over 5 weeks which did not improve even with increasing diuretics Her leg edema has been seeping liquid constantly Started with Lasix 40mg IV BID--> increased to lasix 60mg BID 11/08 40lb over ideal weight Appreciate cardiology input and recommendation Lasix has been increased to 80 mg IV twice daily and added spironolactone 12.5 mg daily with supplemental potassium as needed Negative balance of more than 3 L so far and will continue monitor intake and output We will continue current doses of diuretics as per the resident assistant and the case discussed with the resident assistant Has been feeling better and is out of bed on a chair Denies any significant symptoms except weakness We will continue with PT and OT evaluation Remains stable and has been diuresing enough Continue current dose of furosemide and monitor kidney function Creatinine remains stable and the Lasix doses have been changed to intravenous drip We will monitor I&O and renal function Has been having enough diuresis and so for about 7 L negative fluid balance Continue with aggressive diuresis with intravenous Lasix drip today and monitor BMp Has been diuresing enough and will continue Lasix infusion for a day or 2 more as advised by the resident assistant Blood pressure is on the lower side and Lopressor is on hold We will check electrolytes and kidney function (2) Tinea corporis: Plan: Rash on left knee seems most consistent with tinea corporis - Started clotrimazole 1% cream BID for a 14 days course (3) Chronic kidney disease, stage 3: Plan: monitor Cr with diuresis Creatinine remains stable with normal electrolytes Creatinine remains stable and electrolytes are normal Kidney function has gotten a little worse but that will be monitored We will get PRP checked-creatinine remains stable We will check BNP and electrolytes tomorrow-remains stable as of 11/15/2022 (4) Diabetes mellitus, type 2: Plan: Basal and sliding scale insulin Diabetic diet Has been having low blood sugar around upper 60s We will decrease Lantus from 15 units twice daily to 10 units twice daily Sugar remains stable following adjustment of insulin (5) Hypothyroidism: Plan: Continue replacement (6) Sleep apnea: Plan: CPAP ordered - settings from pt's outpatient records (7) Glaucoma: (8) Rheumatoid arthritis: Plan: Methotrexate currently on hold due to leg wounds - will continue prednisone and plaquenil Remains free from any significant arthritic pain We will hold methotrexate for now No acute arthritis involving any of the joint (9) Iron deficiency anemia: (10) Venous stasis ulcers: Plan: Wound care consult She has chronic LE wounds for which she is following with wound care but she has been told that until the fluid overload is improved, her wounds will be unlikely to heal. Right leg cellulitis Extensive antibiotic allergy noted. Started linezolid 600mg BID, anticipate 7 day course. Dressing as per wound care Advised to keep the legs elevated while in bed We will continue with the dressing as per wound care Advised to keep the legs elevated while in bed (11) Hepatocellular carcinoma: Plan: OP follow up Plan Code status: Full code but no prolonged heroic measures. Son is her POA DVT Prophylaxis: Lovenox Disposition-- Evaluated by PT/OT, rehab recommended Likely to be discharged tomorrow to [facility] Admission and Anticipated Discharge Date Admission Date: November 05, 2022 Subjective 11/10/2022 The patient was seen and examined in telemetry unit She has been feeling much better and denies any shortness of breath at rest She still gets shortness of breath with minimal exertion Denies any chest pain and/or palpitation and the leg swelling has been improving 11/11/2022 The patient was seen and examined in telemetry unit She has been feeling a lot better but not yet ready to be discharged Denies any significant symptoms She will get PT and OT evaluation 11/12/2022 The patient was seen and examined in telemetry unit She has been feeling much better She continues to diurese and IV Lasix will be continued Denies any chest pain and/or palpitation or any shortness of breath at rest 11/13/2022 The patient was seen and examined in telemetry unit She has been feeling much better and denies any symptoms at rest Her Lasix will be changed to IV pulse therapy She is out of bed on a chair and remains asymptomatic 11/14/2022 The patient was seen and examined in telemetry unit She has been feeling much better and has been having enough diuresis Denies any symptoms Feels that her abdomen is getting smaller and breathing is getting better 11/15/2022 The patient was seen and examined in telemetry unit She has been feeling better Her blood pressure is on the lower side and is still getting intravenous Lasix infusion Denies any significant symptoms Review of Systems Review of Systems: All systems reviewed and are unremarkable except as noted below Physical Exam Physical Exam: Sitting on a chair without any acute distress Constitutional: well developed, well nourished, + ill appearing and + morbidly obese Eyes: PERRL, conjunctivae normal, anicteric sclerae ENMT: external ear and nose normal, oropharynx normal Neck: trachea midline, no thyromegaly Respiratory: no respiratory distress Auscultation: + diminished lung sounds and + crackles (Bibasal crackles) Cardiovascular: Rate/Rhythm: regular rate and regular rhythm; not tachycardic Heart Sounds: normal S1 and normal S2; no murmur Extremities: + edema (1+ edema bilaterally with seeping of fluid) Gastrointestinal (Abdomen): Inspection/Auscultation: + abdomen distended and normal bowel sounds Percussion/Palpation: abdomen soft; abdomen nontender Musculoskeletal: No acute arthritis involving any of the joint Neurologic: normal touch/pain/proprioception and moves all extremities; no focal motor deficits Psychiatric: A+Ox3, euthymic affect Lymphatic: no cervical or axillary lymphadenopathy Results & Data Results & Data Vital Signs (Past 12 Hours) Vital Signs Temp Pulse Pulse Resp BP Pulse Ox O2 Del Method 11/15/22 08:00 Nasal Cannula 11/15/22 08:37 36.4 C L 87 18 94/56 L 100 Nasal Cannula 11/15/22 00:00 80 11/15/22 04:24 36.3 C L 85 19 105/64 99 Room Air O2 Flow Rate 11/15/22 08:00 2 11/15/22 08:37 2 11/15/22 00:00 11/15/22 04:24 Laboratory Results Short CBC 11/15/22 Range/Units 06:07 WBC 6.47 (4.8-10.8) K/ul Hgb 11.0 L (12.0-16.0) g/dl Hct 35.1 L (37.0-47.0) % Plt Count 71 L (130-400) K/uL BMP 11/15/22 06:07 Sodium 139 Potassium 4.0 Chloride 101 Carbon Dioxide 32 BUN 37 H Creatinine 1.06 Glucose 106 H Calcium 9.1 Medications Administered Current Inpatient Medications Acetaminophen (Acetaminophen 325 Mg Tab) 650 mg PO Q4H PRN PRN Reason: Pain or Fever Stop: 12/05/22 18:39 Last Admin: 11/06/22 08:40 Dose: 650 mg Acetaminophen (Acetaminophen 500 Mg Tab) 1,000 mg PO HS LIBBY Stop: 12/05/22 20:59 Last Admin: 11/14/22 20:52 Dose: 1,000 mg Al Hydrox/Mg Hydrox/Simethicone (Aluminum/Magnesium/Simeth (Maalox Max) 30 Ml Udc) 30 ml PO Q6H PRN PRN Reason: Heartburn Stop: 12/13/22 19:30 Last Admin: 11/14/22 21:04 Dose: 30 ml Lipase/Protease/Amylase (Pancreaze (Lipase 10,500u) Cap) 2 cap PO QIDM LIBBY Stop: 12/05/22 20:59 Last Admin: 11/15/22 08:10 Dose: 2 cap Lipase/Protease/Amylase (Pancreaze (Lipase 4,200u) Cap) 1 cap PO QIDM LIBBY Stop: 12/05/22 20:59 Last Admin: 11/15/22 08:10 Dose: 1 cap Ascorbic Acid (Ascorbic Acid 500 Mg Tab) 500 mg PO QAM LIBBY Stop: 12/06/22 08:59 Last Admin: 11/15/22 08:27 Dose: 500 mg Aspirin (Aspirin 81 Mg Ectab) 81 mg PO QAM [facility] Stop: 12/06/22 08:59 Last Admin: 11/15/22 08:24 Dose: 81 mg Atorvastatin Calcium (Atorvastatin 40 Mg Tab) 40 mg PO HS LIBBY Stop: 12/05/22 20:59 Last Admin: 11/14/22 20:55 Dose: 40 mg Betaxolol HCl (Betaxolol Hcl 0.5% Op 5 Ml Btl) 1 drops OPL [facility] Stop: 12/05/22 20:59 Last Admin: 11/15/22 08:27 Dose: 1 drops Brimonidine Tartrate (Brimonidine Tartrate 0.2% 5ml) 1 drops OPL BID [facility] Stop: 12/05/22 20:59 Last Admin: 11/15/22 08:27 Dose: 1 drops Calcium Carbonate (Calcium Carbonate 500 Mg Chewable Tab) 500 mg PO QID PRN PRN Reason: Indigestion Stop: 12/09/22 18:41 Clopidogrel Bisulfate (Clopidogrel Bisulfate 75 Mg Tab) 75 mg PO QAM [facility] Stop: 12/06/22 08:59 Last Admin: 11/15/22 08:25 Dose: 75 mg Clotrimazole (Clotrimazole 1% Cr 15 Gm Tube) 1 appln EXT BID [facility] Stop: 11/19/22 20:59 Last Admin: 11/15/22 08:25 Dose: 1 appln Cyanocobalamin (Cyanocobalamin (B-12) 500 Mcg Tablet) 1,500 mcg PO QPM [facility] Stop: 12/05/22 20:59 Last Admin: 11/14/22 20:53 Dose: 1,500 mcg Dextrose (Dextrose 50% 50 Ml Syringe) 25 - 50 ml IV UD PRN; Protocol PRN Reason: Hypoglycemia Protocol Stop: 12/05/22 17:38 Enoxaparin Sodium (Enoxaparin Inj 40 Mg/0.4 Ml Syr) 40 mg SQ QAM [facility] Stop: 12/06/22 08:59 Last Admin: 11/15/22 08:26 Dose: 40 mg Erythromycin (Erythromycin Op Oint 5 Mg/Gm 3.5 Gm Tube) 1 appln OPB QID [facility] Stop: 11/15/22 20:59 Last Admin: 11/15/22 08:26 Dose: 1 appln Ferrous Sulfate (Ferrous Sulfate 325 Mg Tab) 325 mg PO DAILY [facility] Stop: 12/06/22 08:59 Last Admin: 11/15/22 08:28 Dose: 325 mg Fluticasone Propionate (Fluticasone Propionate Na Spr 16 Gm Btl) 2 sprays NA QAM [facility] [place] Stop: 12/06/22 08:59 Last Admin: 11/15/22 08:28 Dose: 2 sprays Folic Acid (Folic Acid 1 Mg Tab) 1 mg PO QAM [facility] [place] Stop: 12/06/22 08:59 Last Admin: 11/15/22 08:27 Dose: 1 mg Gabapentin (Gabapentin 400 Mg Cap) 400 mg PO TID [facility]BY Stop: 12/05/22 20:59 Last Admin: 11/15/22 08:28 Dose: 400 mg Glucagon (Glucagon For Inj 1 Mg Vial) 1 mg SQ UD PRN; Protocol PRN Reason: Hypoglycemia Protocol Stop: 12/05/22 17:38 Glucose (Glucose 10 Tab/Tube) 4 - 8 tab PO UD PRN; Protocol PRN Reason: Hypoglycemia Treatment Stop: 12/05/22 17:38 Glucose (Glucose 40% Gel 15 Gm Tube) 15 - 30 gm PO UD PRN; Protocol PRN Reason: Hypoglycemia Protocol Stop: 12/05/22 17:38 Hydroxychloroquine Sulfate (Hydroxychloroquine Sulfate 200 Mg Tab) 400 mg PO HS [facility] [place] Stop: 12/05/22 20:59 Last Admin: 11/14/22 20:52 Dose: 400 mg Furosemide 100 mg/ Dextrose 100 mls @ 20 mls/hr IV .Q5H LIBBY Stop: 12/13/22 10:29 Last Admin: 11/15/22 09:22 Dose: 20 mg/hr, 20 mls/hr Promethazine HCl 12.5 mg/ (Sodium Chloride) 50.5 mls @ 202 mls/hr IV Q6H PRN PRN Reason: Nausea And Vomiting Stop: 12/15/22 00:06 Last Infusion: 11/15/22 02:00 Dose: Infused Insulin Aspart (Insulin Aspart Per Unit Charge) 0 units SC ACHS [facility] Stop: 12/05/22 20:59 Last Admin: 11/15/22 08:07 Dose: 4 units Insulin Glargine (Lantus Per Unit Charge) 10 units SQ BID [facility] Stop: 12/11/22 20:59 Last Admin: 11/15/22 08:07 Dose: 10 units Lactobacillus Acidophilus (Advanced Probiotic 1250 Mg Capsule) 1 cap PO QAM [facility] Stop: 12/06/22 08:59 Last Admin: 11/15/22 08:28 Dose: 1 cap Latanoprost (Latanoprost 0.005% Op Soln 2.5 Ml Btl) 1 drops OPB HS [facility] Stop: 12/05/22 20:59 Last Admin: 11/14/22 20:49 Dose: 1 drops Levothyroxine Sodium (Levothyroxine Sodium 125 Mcg Tablet) 125 mcg PO DAILYBB [facility] Stop: 12/06/22 06:29 Last Admin: 11/15/22 05:18 Dose: 125 mcg Loperamide HCl (Loperamide Hcl 2 Mg Cap) 2 mg PO Q3H PRN PRN Reason: Diarrhea Stop: 12/13/22 09:45 Last Admin: 11/14/22 21:04 Dose: 2 mg Lorazepam (Lorazepam 0.5 Mg Tab) 0.5 mg PO TID PRN PRN Reason: Anxiety Stop: 12/05/22 19:50 Last Admin: 11/14/22 23:29 Dose: 0.5 mg Magnesium Oxide (Magnesium Oxide 400 Mg Tab) 400 mg PO BID [facility] Stop: 12/06/22 20:59 Last Admin: 11/15/22 08:27 Dose: 400 mg Melatonin (Melatonin 3 Mg Tab) 6 mg PO HS [facility] Stop: 12/05/22 20:59 Last Admin: 11/14/22 20:52 Dose: 6 mg Menthol (Cough Drop (Sugar Free) Rob 24 Rob/1 Box) 1 rob BUCCAL TID PRN PRN Reason: Sore Throat Stop: 12/11/22 22:49 Last Admin: 11/11/22 23:23 Dose: 1 rob Metoprolol Succinate (Metoprolol Succ 25mg Ext Rel Tab) 12.5 mg PO BID [facility] Stop: 12/13/22 20:59 Last Admin: 11/15/22 08:42 Dose: Not Given Miscellaneous (Carbohydrates For Hypoglycemia ) 15 - 30 gm PO UD PRN PRN Reason: Hypoglycemia Protocol Stop: 12/05/22 17:38 Multivitamins/Minerals (Cerovite Adv Formula Tab) 1 tab PO QAM [facility] Stop: 12/06/22 08:59 Last Admin: 11/15/22 08:28 Dose: 1 tab Netarsudil (Netarsudil Mesylate 37 Drops/2.5 Ml Btl) 1 drops OPL HS [facility] Stop: 12/06/22 20:59 Last Admin: 11/14/22 20:50 Dose: 1 drops Nitroglycerin (Nitroglycerin Sl 0.4 Mg/Tab Tab) 0.4 mg SL Q5M PRN PRN Reason: Chest Pain Stop: 12/05/22 18:39 Nystatin (Nystatin Powder 15gm Btl) 1 appln EXT TID PRN PRN Reason: irritation Stop: 12/05/22 19:50 Last Admin: 11/07/22 21:52 Dose: 1 appln Pantoprazole Sodium (Pantoprazole 40 Mg Tab) 40 mg PO QAM [facility] Stop: 12/06/22 08:59 Last Admin: 11/15/22 08:27 Dose: 40 mg Potassium Chloride (Potassium Chloride Crtab 20 Meq Tabcr) 20 meq PO BID [facility] Stop: 12/06/22 20:59 Last Admin: 11/15/22 08:26 Dose: 20 meq Prednisone (Prednisone 5 Mg Tab) [facility] [place] [facility] [place]: 12/06/22 08:59 Last Admin: 11/15/22 08:28 Dose: 5 mg Spironolactone (Spironolactone 25 Mg Tab) 25 mg PO DAILY [facility] [place] Stop: 12/13/22 07:59 Last Admin: 11/15/22 08:25 Dose: 25 mg Tamsulosin HCl (Tamsulosin Hcl 0.4 Mg Cap) 0.4 mg PO [facility] Stop: 12/05/22 20:59 Last Admin: 11/14/22 20:54 Dose: 0.4 mg
[2022-11-15 12:40] LABS: Appearance Urine Turbid (Clear); Bacteria Urine Automated 4+ (Negative); Bilirubin Urine Negative (Negative); Blood Urine 1+ (Negative); Color Urine Yellow; Epithelial Cell Urine Auto >30 /lpf (0-5); Glucose Urine UA Negative (Negative); Ketones Urine Negative (Negative); Leukocyte Esterase Urine 3+ (Negative); Nitrite Urine Positive (Negative); Protein Urine Negative (Negative); RBC Urine Automated 0-4 /hpf (0-4); Urobilinogen Urine Negative (Negative); WBC Urine Automated >30 /hpf (0-5); pH Urine 5.5 (4.5-7.5)
[2022-11-15 12:59] LABS: Cast Urine Automated >30 /lpf (0-5)
[2022-11-15 15:08] LABS: Calcium 9.1 mg/dl (8.6-10.3); Potassium 4.3 mmol/L (3.5-5.1)
[2022-11-15 15:14] LABS: BUN Creatinine Ratio 30.6 (10-20); Creatinine Clr Calc Pharmacy 53.1 ml/min; Est GFR (African American) 50.3 ml/min; Est GFR (Non-African American) 43.4 ml/min
[2022-11-15] MEDS: LOPERAMIDE HCL 2 MG CAP PO PRN (17:19)
[2022-11-15] MEDS: ACETAMINOPHEN 500 MG TAB PO SCH (20:52)
[2022-11-15] MEDS: MELATONIN 3 MG TAB PO SCH (20:54)
[2022-11-15] MEDS: ATORVASTATIN 40 MG TAB PO SCH (20:56)
[2022-11-15] MEDS: TAMSULOSIN HCL 0.4 MG CAP PO SCH (20:57)
[2022-11-15] MEDS: CYANOCOBALAMIN (B-12) 500 MCG TABLET PO SCH (20:57)
[2022-11-15] MEDS: NETARSUDIL MESYLATE 37 DROPS/2.5 ML BTL OPL SCH (21:00)
[2022-11-15] MEDS: HYDROXYCHLOROQUINE SULFATE 200 MG TAB PO SCH (21:27)
[2022-11-15] MEDS: LORazepam 0.5 MG TAB PO PRN (23:04)
[2022-11-15] MEDS: ERYTHROMYCIN OP OINT 5 MG/GM 3.5 GM TUBE OP SCH (23:19)
[2022-11-16] MEDS: FUROSEMIDE 100 MG in DEXTROSE 5% 90 ML IV SCH ×5 (00:09→20:10)
[2022-11-16] MEDS: LEVOTHYROXINE SODIUM 125 MCG TABLET PO SCH (05:25)
--- NOTE | 2022-11-16 06:38 | Cardiology Progress Note ---
Date of Service November 16, 2022 Assessment & Plan (1) Acute on chronic combined systolic (congestive) and diastolic (congestive) heart failure: (2) Aortic stenosis: (3) CKD (chronic kidney disease): Plan 72 year old female with ischemic heart disease and severe aortic stenosis adm itted with acute decompensated right greater than left biventricular congestive heart failure signs/symptoms, HFrEF, anasarca. Patient remains volume overload. RECOMMENDATIONS: Continue IV furosemide infusion at 10 mg/hr, reduced dose of beta-gio therapy. Continue spironolactone 25 mg/day. Supplement potassium orally, additional 40 mEq this AM Note: Off ACEI/ARB secondary to hypotension Follow daily weights, fluid balance, GFR, and electrolytes. Patient is not chronically anticoagulated due to bleeding risk. Continue dual antiplatelet therapy with history of drug-eluting stent implan tation to the mid LAD March 2022. Evaluation of severe versus pseudo-aortic stenosis with transesophageal echocardiogram and dobutamine stress echocardiography planned as an outpatient. Admission and Anticipated Discharge Date Admission Date: November 05, 2022 Supervising Physician Co-Signing Physician Notes Attending Staff: Pt was seen and evaluated with [facility] staff. 50 min spent addressing challenges, educating and advancing daily plan of care 72 yo woman presenting with worsening LE edema Dx: Acute on chronic combined heart failure Cardiomyopathy LVEF 25% Combination of ischemic heart disease + Severe Case reviewed Markedly volume overloaded + JVP 18 cmH20 S1 - murmur - Muted S2 Decreased BS at Right base + Abdominal Wall Edema +3 Bilateral LE edema extending to the inguinal folds Plan: Aggressive diuresis Lasix 200 IV x1 Continue Lasix infusion to 20 mg IV/hr Consider Purewik for urine collection MARIXA - OFF Continue Lopressor to 12.5 mg po BID; may need to be held BID electrolyte check K+ goal 4.5-5 Increase KCL 40 meq po TID Supplemental K+ as needed to achieve goal Continue Aldactone 25 mg po per day Mag goal >2 STANDING WEIGHT DAILY + Stent Continue ASA 81 mg po per day Continue Plavix 75 mg po per day Continue Lipitor 40 mg po per day Check LDL Plans for TAVR evaluation @ [facility] Mobilize patient Dylan Saravia Subjective 11/10/2022 The patient was seen and examined in telemetry unit She has been feeling much better and denies any shortness of breath at rest She still gets shortness of breath with minimal exertion Denies any chest pain and/or palpitation and the leg swelling has been improving 11/11/2022 The patient was seen and examined in telemetry unit She has been feeling a lot better but not yet ready to be discharged Denies any significant symptoms She will get PT and OT evaluation 11/12/2022 The patient was seen and examined in telemetry unit She has been feeling much better She continues to diurese and IV Lasix will be continued Denies any chest pain and/or palpitation or any shortness of breath at rest 11/13/2022 The patient was seen and examined in telemetry unit She has been feeling much better and denies any symptoms at rest Her Lasix will be changed to IV pulse therapy She is out of bed on a chair and remains asymptomatic 11/14/2022 The patient was seen and examined in telemetry unit She has been feeling much better and has been having enough diuresis Denies any symptoms Feels that her abdomen is getting smaller and breathing is getting better 11/15/2022 The patient was seen and examined in telemetry unit She has been feeling better Her blood pressure is on the lower side and is still getting intravenous Lasix infusion Denies any significant symptoms 11/16/2022 Review of Systems Review of Systems: All systems reviewed & are unremarkable except as noted in HPI & below Physical Exam Physical Exam: General: Alert, no distress, well nourished, well developed, comfortable and cooperative HENT: Normocephalic. Atraumatic. Neck: + JVD. - 18 cmH20 Heart: Distant heart sounds. Regular at 76 bpm. Grade II/ systolic murmur. Lungs: Decreased at the bases. Bibasilar rales. No wheeze. Abdomen: +BS. Distended. Nontender. No masses. Abdominal wall edema Extremities: 2+ pitting edema, diffuse. No clubbing. No cyanosis Pulses: radial=2/4, posterior tibial=0/4. Skin: + Fungal appearing rash on lower extremities. Limited neurological examination: No focal deficit. Results & Data Vital Signs (Past 12 Hours) Vital Signs Temp Pulse Pulse Resp BP Pulse Ox O2 Del Method 11/16/22 02:55 36.6 C 76 18 106/73 100 Nasal Cannula 11/15/22 21:48 Nasal Cannula 11/15/22 21:41 81 11/15/22 23:03 36.8 C 82 18 109/74 99 Nasal Cannula 11/15/22 19:23 36.9 C 82 20 126/73 94 Nasal Cannula O2 Flow Rate 11/16/22 02:55 11/15/22 21:48 2 11/15/22 21:41 11/15/22 23:03 2 11/15/22 19:23 2 Laboratory Results Comprehensive Metabolic Panel 11/15/22 11/16/22 Range/Units 14:29 06:11 Sodium 139 142 (136-145) mmol/L Potassium 4.3 3.7 (3.5-5.1) mmol/L Chloride 101 101 (98-107) mmol/L Carbon Dioxide 30 35 H (21-32) mmol/L BUN 38 H 37 H (6-23) mg/dl Creatinine 1.24 H 1.10 (0.6-1.2) mg/dl Glucose 164 H 81 (70-99(Fasting)) mg/dl Calcium 9.1 9.0 (8.6-10.3) mg/dl Intake and Output 11/15/22 11/16/22 11/16/22 22:59 06:59 14:59 Intake Total 350 / 1282.667 288 / 1282.667 Output Total 761 / 2312 650 / 2312 Balance -411 / -1029.333 -362 / -1029.333 Intake: IV 100 / 482.667 188 / 482.667 Furosemide 100 mg In Dextrose 5 100 / 482.667 188 / 482.667 % 90 ml @ 20 MG/HR 20 mls/hr IV .Q5H [facility] Rx#:[id number] Oral 250 / 800 100 / 800 Output: Urine Amount (Catheter) 760 / 2310 650 / 2310 Red/Indwelling 760 / 2310 650 / 2310 # Bowel Movements 1 / 2 Other: Weight 124.7 kg Medications Administered Current Inpatient Medications Acetaminophen (Acetaminophen 325 Mg Tab) 650 mg PO Q4H PRN PRN Reason: Pain or Fever Stop: 12/05/22 18:39 Last Admin: 11/06/22 08:40 Dose: 650 mg Acetaminophen (Acetaminophen 500 Mg Tab) 1,[address] [facility] Stop: 12/05/22 20:59 Last Admin: 11/15/22 20:52 Dose: 1,000 mg Al Hydrox/Mg Hydrox/Simethicone (Aluminum/Magnesium/Simeth (Maalox Max) 30 Ml Udc) 30 ml PO Q6H PRN PRN Reason: Heartburn Stop: 12/13/22 19:30 Last Admin: 11/14/22 21:04 Dose: 30 ml Lipase/Protease/Amylase (Pancreaze (Lipase 10,500u) Cap) 2 cap PO QIDM [facility] Stop: 12/05/22 20:59 Last Admin: 11/16/22 08:24 Dose: 2 cap Lipase/Protease/Amylase (Pancreaze (Lipase 4,200u) Cap) 1 cap PO QIDM [facility] Stop: 12/05/22 20:59 Last Admin: 11/16/22 08:25 Dose: 1 cap Ascorbic Acid (Ascorbic Acid 500 Mg Tab) 500 mg PO QAM [facility] Stop: 12/06/22 08:59 Last Admin: 11/16/22 08:23 Dose: 500 mg Aspirin (Aspirin 81 Mg Ectab) [facility] [place] Stop: 12/06/22 08:59 Last Admin: 11/16/22 08:23 Dose: 81 mg Atorvastatin Calcium (Atorvastatin 40 Mg Tab) 40 mg PO HS [facility] Stop: 12/05/22 20:59 Last Admin: 11/15/22 20:56 Dose: 40 mg Betaxolol HCl (Betaxolol Hcl 0.5% Op 5 Ml Btl) 1 drops OPL [facility] Stop: 12/05/22 20:59 Last Admin: 11/16/22 08:26 Dose: 1 drops Brimonidine Tartrate (Brimonidine Tartrate 0.2% 5ml) 1 drops OPL BID [facility] Stop: 12/05/22 20:59 Last Admin: 11/16/22 08:26 Dose: 1 drops Calcium Carbonate (Calcium Carbonate 500 Mg Chewable Tab) 500 mg PO QID PRN PRN Reason: Indigestion Stop: 12/09/22 18:41 Clopidogrel Bisulfate (Clopidogrel Bisulfate 75 Mg Tab) 75 mg PO QAM [facility] Stop: 12/06/22 08:59 Last Admin: 11/16/22 08:26 Dose: 75 mg Clotrimazole (Clotrimazole 1% Cr 15 Gm Tube) 1 appln EXT BID [facility] Stop: 11/19/22 20:59 Last Admin: 11/16/22 08:26 Dose: 1 appln Cyanocobalamin (Cyanocobalamin (B-12) 500 Mcg Tablet) 1,500 mcg PO QPM [facility] Stop: 12/05/22 20:59 Last Admin: 11/15/22 20:57 Dose: 1,500 mcg Dextrose (Dextrose 50% 50 Ml Syringe) 25 - 50 ml IV UD PRN; Protocol PRN Reason: Hypoglycemia Protocol Stop: 12/05/22 17:38 Enoxaparin Sodium (Enoxaparin Inj 40 Mg/0.4 Ml Syr) 40 mg SQ QAM [facility] Stop: 12/06/22 08:59 Last Admin: 11/16/22 08:25 Dose: 40 mg Erythromycin (Erythromycin Op Oint 5 Mg/Gm 3.5 Gm Tube) 1 appln OP QID [facility] Stop: 11/25/22 21:44 Last Admin: 11/16/22 08:22 Dose: 1 appln Ferrous Sulfate (Ferrous Sulfate 325 Mg Tab) 325 mg PO DAILY [facility] Stop: 12/06/22 08:59 Last Admin: 11/16/22 08:24 Dose: 325 mg Fluticasone Propionate (Fluticasone Propionate Na Spr 16 Gm Btl) 2 sprays NA QAM [facility] Stop: 12/06/22 08:59 Last Admin: 11/16/22 08:27 Dose: 2 sprays Folic Acid (Folic Acid 1 Mg Tab) 1 mg PO QAM [facility] Stop: 12/06/22 08:59 Last Admin: 11/16/22 08:24 Dose: 1 mg Gabapentin (Gabapentin 400 Mg Cap) 400 mg PO TID [facility] Stop: 12/05/22 20:59 Last Admin: 11/16/22 08:25 Dose: 400 mg Glucagon (Glucagon For Inj 1 Mg Vial) 1 mg SQ UD PRN; Protocol PRN Reason: Hypoglycemia Protocol Stop: 12/05/22 17:38 Glucose (Glucose 10 Tab/Tube) 4 - 8 tab PO UD PRN; Protocol PRN Reason: Hypoglycemia Treatment Stop: 12/05/22 17:38 Glucose (Glucose 40% Gel 15 Gm Tube) 15 - 30 gm PO UD PRN; Protocol PRN Reason: Hypoglycemia Protocol Stop: 12/05/22 17:38 Hydroxychloroquine Sulfate (Hydroxychloroquine Sulfate 200 Mg Tab) 400 mg PO HS [facility] Stop: 12/05/22 20:59 Last Admin: 11/15/22 21:27 Dose: 400 mg Furosemide 100 mg/ Dextrose 100 mls @ 20 mls/hr IV .Q5H [facility] Stop: 12/13/22 10:29 Last Admin: 11/16/22 05:25 Dose: 20 mg/hr, 20 mls/hr Promethazine HCl 12.5 mg/ (Sodium Chloride) 50.5 mls @ 202 mls/hr IV Q6H PRN PRN Reason: Nausea And Vomiting Stop: 12/15/22 00:06 Last Infusion: 11/15/22 02:00 Dose: Infused Insulin Aspart (Insulin Aspart Per Unit Charge) 0 units SC ACHS [facility] Stop: 12/05/22 20:59 Last Admin: 11/16/22 08:21 Dose: 2 units Insulin Glargine (Lantus Per Unit Charge) 10 units SQ BID [facility] Stop: 12/11/22 20:59 Last Admin: 11/16/22 08:21 Dose: 10 units Lactobacillus Acidophilus (Advanced Probiotic 1250 Mg Capsule) 1 cap PO QAM [facility] Stop: 12/06/22 08:59 Last Admin: 11/16/22 08:23 Dose: 1 cap Latanoprost (Latanoprost 0.005% Op Soln 2.5 Ml Btl) 1 drops OPB HS [facility] Stop: 12/05/22 20:59 Last Admin: 11/14/22 20:49 Dose: 1 drops Levothyroxine Sodium (Levothyroxine Sodium 125 Mcg Tablet) 125 mcg PO DAILYBB [facility] Stop: 12/06/22 06:29 Last Admin: 11/16/22 05:25 Dose: 125 mcg Loperamide HCl (Loperamide Hcl 2 Mg Cap) 2 mg PO Q3H PRN PRN Reason: Diarrhea Stop: 12/13/22 09:45 Last Admin: 11/15/22 17:19 Dose: 2 mg Lorazepam (Lorazepam 0.5 Mg Tab) 0.5 mg PO TID PRN PRN Reason: Anxiety Stop: 12/05/22 19:50 Last Admin: 11/15/22 23:04 Dose: 0.5 mg Magnesium Oxide (Magnesium Oxide 400 Mg Tab) 400 mg PO BID [facility] Stop: 12/06/22 20:59 Last Admin: 11/16/22 08:24 Dose: 400 mg Melatonin (Melatonin 3 Mg Tab) 6 mg PO HS [facility] Stop: 12/05/22 20:59 Last Admin: 11/15/22 20:54 Dose: 6 mg Menthol (Cough Drop (Sugar Free) Rob 24 Rob/1 Box) 1 rob BUCCAL TID PRN PRN Reason: Sore Throat Stop: 12/11/22 22:49 Last Admin: 11/11/22 23:23 Dose: 1 rob Metoprolol Succinate (Metoprolol Succ 25mg Ext Rel Tab) 12.5 mg PO BID [facility] Stop: 12/13/22 20:59 Last Admin: 11/16/22 08:23 Dose: 12.5 mg Miscellaneous (Carbohydrates For Hypoglycemia ) 15 - 30 gm PO UD PRN PRN Reason: Hypoglycemia Protocol Stop: 12/05/22 17:38 Multivitamins/Minerals (Cerovite Adv Formula Tab) 1 tab PO QAM [facility] Stop: 12/06/22 08:59 Last Admin: 11/16/22 08:24 Dose: 1 tab Netarsudil (Netarsudil Mesylate 37 Drops/2.5 Ml Btl) [address] [facility] Stop: 12/06/22 20:59 Last Admin: 11/15/22 21:00 Dose: 1 drops Nitroglycerin (Nitroglycerin Sl 0.4 Mg/Tab Tab) 0.4 mg SL Q5M PRN PRN Reason: Chest Pain Stop: 12/05/22 18:39 Nystatin (Nystatin Powder 15gm Btl) 1 appln EXT TID PRN PRN Reason: irritation Stop: 12/05/22 19:50 Last Admin: 11/07/22 21:52 Dose: 1 appln Pantoprazole Sodium (Pantoprazole 40 Mg Tab) 40 mg PO QAM [facility] Stop: 12/06/22 08:59 Last Admin: 11/16/22 08:23 Dose: 40 mg Potassium Chloride (Potassium Chloride Crtab 20 Meq Tabcr) 40 meq PO BID [facility] Stop: 12/16/22 08:59 Last Admin: 11/16/22 08:36 Dose: 40 meq Prednisone (Prednisone 5 Mg Tab) 5 mg PO QAM [facility] Stop: 12/06/22 08:59 Last Admin: 11/16/22 08:23 Dose: 5 mg Spironolactone (Spironolactone 25 Mg Tab) 25 mg PO DAILY [facility] Stop: 12/13/22 07:59 Last Admin: 11/16/22 08:24 Dose: 25 mg Tamsulosin HCl (Tamsulosin Hcl 0.4 Mg Cap) 0.[address] [facility] Stop: 12/05/22 20:59 Last Admin: 11/15/22 20:57 Dose: 0.4 mg
[2022-11-16 06:59] LABS: BUN Creatinine Ratio 33.6 (10-20); Creatinine Clr Calc Pharmacy 59.9 ml/min; Est GFR (African American) 58.1 ml/min; Est GFR (Non-African American) 50.1 ml/min; Magnesium 2.1 mg/dl (1.7-2.4); Potassium 3.7 mmol/L (3.5-5.1)
[2022-11-16] MEDS: INSULIN ASPART PER UNIT CHARGE SC SCH ×4 (08:21→20:36)
[2022-11-16] MEDS: LANTUS PER UNIT CHARGE SQ SCH ×2 (08:21→20:36)
[2022-11-16] MEDS: ERYTHROMYCIN OP OINT 5 MG/GM 3.5 GM TUBE OP SCH ×4 (08:22→20:20)
[2022-11-16] MEDS: ASCORBIC ACID 500 MG TAB PO SCH (08:23)
[2022-11-16] MEDS: ASPIRIN 81 MG ECTAB PO SCH (08:23)
[2022-11-16] MEDS: METOPROLOL SUCC 25MG EXT REL TAB PO SCH ×2 (08:23→20:22)
[2022-11-16] MEDS: PANTOprazole 40 MG TAB PO SCH (08:23)
[2022-11-16] MEDS: predniSONE 5 MG TAB PO SCH (08:23)
[2022-11-16] MEDS: ADVANCED PROBIOTIC 1250 MG CAPSULE PO SCH (08:23)
[2022-11-16] MEDS: FERROUS SULFATE 325 MG TAB PO SCH (08:24)
[2022-11-16] MEDS: SPIRONOLACTONE 25 MG TAB PO SCH (08:24)
[2022-11-16] MEDS: PANCREAZE (LIPASE 10,500U) CAP PO SCH ×4 (08:24→20:22)
[2022-11-16] MEDS: MAGNESIUM OXIDE 400 MG TAB PO SCH ×2 (08:24→20:23)
[2022-11-16] MEDS: CEROVITE ADV FORMULA TAB PO SCH (08:24)
[2022-11-16] MEDS: FOLIC ACID 1 MG TAB PO SCH (08:24)
[2022-11-16] MEDS: GABAPENTIN 400 MG CAP PO SCH ×3 (08:25→20:24)
[2022-11-16] MEDS: ENOXAPARIN INJ 40 MG/0.4 ML SYR SQ SCH (08:25)
[2022-11-16] MEDS: PANCREAZE (LIPASE 4,200U) CAP PO SCH ×4 (08:25→20:22)
[2022-11-16] MEDS: BETAXOLOL HCL 0.5% OPL SCH ×2 (08:26→20:25)
[2022-11-16] MEDS: BRIMONIDINE TARTRATE 0.2% 5ML OPL SCH ×2 (08:26→20:25)
[2022-11-16] MEDS: CLOPIDOGREL BISULFATE 75 MG TAB PO SCH (08:26)
[2022-11-16] MEDS: CLOTRIMAZOLE 1% CR 15 GM TUBE EXT SCH ×2 (08:26→20:26)
[2022-11-16] MEDS: FLUTICASONE PROPIONATE NA SPR 16 GM BTL SCH (08:27)
[2022-11-16] MEDS ORDERED: POTASSIUM CHLORIDE CRTAB 20 MEQ TABCR PO SCH (09:00)
[2022-11-16] MEDS ORDERED: FUROSEMIDE 10 MG/ML 10 ML VIAL IV ONE (09:30)
[2022-11-16 13:12] LABS: BUN Creatinine Ratio 33.6 (10-20); Creatinine Clr Calc Pharmacy 60.9 ml/min; Est GFR (African American) 58.1 ml/min; Est GFR (Non-African American) 50.1 ml/min; Potassium 4.1 mmol/L (3.5-5.1)
[2022-11-16] MEDS: POTASSIUM CHLORIDE CRTAB 20 MEQ TABCR PO SCH ×2 (13:39→17:14)
--- NOTE | 2022-11-16 14:44 | Hospitalist Progress Note ---
Date of Service November 16, 2022 Assessment & Plan (1) Acute on chronic combined systolic (congestive) and diastolic (congestive) heart failure: Plan: Wyatt is a 72 y/o with a complicated medical history including combined systolic and diastolic heart failure, CAD s/p PCI with WALTER, aortic stenosis (suspected severe), tachy-wilfrido syndrome s/p PPM in 2021, persistent afib since 07/01, bilateral carotid bruits, insulin-requiring DM, blindness, rheumatoid arthritis, chronic prednisone use, LAQUITA on CPAP, CKD3a, hypothyroidism, HTN, open-angle glaucoma, and recurrent liver cancer s/p recent placement of radiation beads. Presented with progressive shortness of breath over 5 weeks which did not improve even with increasing diuretics Her leg edema has been seeping liquid constantly Started with Lasix 40mg IV BID--> increased to lasix 60mg BID 11/08 40lb over ideal weight Appreciate cardiology input and recommendation Lasix has been increased to 80 mg IV twice daily and added spironolactone 12.5 mg daily with supplemental potassium as needed Negative balance of more than 3 L so far and will continue monitor intake and output We will continue current doses of diuretics as per the billing clinician and the case discussed with the billing clinician Has been feeling better and is out of bed on a chair Denies any significant symptoms except weakness We will continue with PT and OT evaluation Remains stable and has been diuresing enough Continue current dose of furosemide and monitor kidney function Creatinine remains stable and the Lasix doses have been changed to intravenous drip We will monitor I&O and renal function Has been having enough diuresis and so for about 7 L negative fluid balance Continue with aggressive diuresis with intravenous Lasix drip today and monitor BMp Has been diuresing enough and will continue Lasix infusion for a day or 2 more as advised by the billing clinician Blood pressure is on the lower side and Lopressor is on hold We will check electrolytes and kidney function Lasix infusion will be decreased to 10 mg/h-she has been tolerating the infusion and so far she has about 9 L negative fluid balance We will check electrolytes tomorrow (2) Tinea corporis: Plan: Rash on left knee seems most consistent with tinea corporis - Started clotrimazole 1% cream BID for a 14 days course (3) Chronic kidney disease, stage 3: Plan: monitor Cr with diuresis Creatinine remains stable with normal electrolytes Creatinine remains stable and electrolytes are normal Kidney function has gotten a little worse but that will be monitored We will get PRP checked-creatinine remains stable We will check BNP and electrolytes tomorrow-remains stable as of 11/15/2022 (4) Diabetes mellitus, type 2: Plan: Basal and sliding scale insulin Diabetic diet Has been having low blood sugar around upper 60s We will decrease Lantus from 15 units twice daily to 10 units twice daily Sugar remains stable following adjustment of insulin (5) Hypothyroidism: Plan: Continue replacement (6) Sleep apnea: Plan: CPAP ordered - settings from pt's outpatient records (7) Glaucoma: (8) Rheumatoid arthritis: Plan: Methotrexate currently on hold due to leg wounds - will continue prednisone and plaquenil Remains free from any significant arthritic pain We will hold methotrexate for now No acute arthritis involving any of the joint (9) Iron deficiency anemia: (10) Venous stasis ulcers: Plan: Wound care consult She has chronic LE wounds for which she is following with wound care but she has been told that until the fluid overload is improved, her wounds will be unlikely to heal. Right leg cellulitis Extensive antibiotic allergy noted. Started linezolid 600mg BID, anticipate 7 day course. Dressing as per wound care Advised to keep the legs elevated while in bed We will continue with the dressing as per wound care Advised to keep the legs elevated while in bed Continue to continue to leg dressings as advised (11) Hepatocellular carcinoma: Plan: OP follow up Plan Code status: Full code but no prolonged heroic measures. Son is her POA DVT Prophylaxis: Lovenox Disposition-- Evaluated by PT/OT, rehab recommended We will be ready to go to [facility] when cleared by the cardiology Admission and Anticipated Discharge Date Admission Date: November 05, 2022 Subjective 11/10/2022 The patient was seen and examined in telemetry unit She has been feeling much better and denies any shortness of breath at rest She still gets shortness of breath with minimal exertion Denies any chest pain and/or palpitation and the leg swelling has been improving 11/11/2022 The patient was seen and examined in telemetry unit She has been feeling a lot better but not yet ready to be discharged Denies any significant symptoms She will get PT and OT evaluation 11/12/2022 The patient was seen and examined in telemetry unit She has been feeling much better She continues to diurese and IV Lasix will be continued Denies any chest pain and/or palpitation or any shortness of breath at rest 11/13/2022 The patient was seen and examined in telemetry unit She has been feeling much better and denies any symptoms at rest Her Lasix will be changed to IV pulse therapy She is out of bed on a chair and remains asymptomatic 11/14/2022 The patient was seen and examined in telemetry unit She has been feeling much better and has been having enough diuresis Denies any symptoms Feels that her abdomen is getting smaller and breathing is getting better 11/15/2022 The patient was seen and examined in telemetry unit She has been feeling better Her blood pressure is on the lower side and is still getting intravenous Lasix infusion Denies any significant symptoms 11/16/2022 The patient was seen and telemetry unit She has been stable feeling a lot better Her legs are getting less swelling and denies any shortness of breath at rest Has had so for about 9 L negative balance Review of Systems Review of Systems: All systems reviewed and are unremarkable except as noted below Physical Exam Physical Exam: Lying in bed without any acute distress Constitutional: well developed, well nourished, + ill appearing and + morbidly obese Eyes: PERRL, conjunctivae normal, anicteric sclerae ENMT: external ear and nose normal, oropharynx normal Neck: trachea midline, no thyromegaly Respiratory: no respiratory distress Auscultation: + diminished lung sounds and + crackles (Bibasal crackles) Cardiovascular: Rate/Rhythm: regular rate and regular rhythm; not tachycardic Heart Sounds: normal S1 and normal S2; no murmur Extremities: + edema (1+ edema bilaterally with seeping of fluid) Gastrointestinal (Abdomen): Inspection/Auscultation: + abdomen distended and normal bowel sounds Percussion/Palpation: abdomen soft; abdomen nontender Musculoskeletal: No acute arthritis involving any of the joint Neurologic: normal touch/pain/proprioception and moves all extremities; no focal motor deficits Psychiatric: A+Ox3, euthymic affect Lymphatic: no cervical or axillary lymphadenopathy Results & Data Results & Data Vital Signs (Past 12 Hours) Vital Signs Temp Pulse Pulse Resp BP BP Pulse Ox 11/16/22 11:21 36.4 C L 88 19 95/55 L 93 11/16/22 07:30 36.3 C L 72 19 116/72 96 11/16/22 07:00 77 11/16/22 02:55 36.6 C 76 18 106/73 100 O2 Del Method O2 Flow Rate 11/16/22 11:21 Room Air 11/16/22 07:30 Nasal Cannula 2 11/16/22 07:00 11/16/22 02:55 Nasal Cannula Laboratory Results BMP 11/15/22 11/16/22 11/16/22 14:29 06:11 12:29 Sodium 139 142 139 Potassium 4.3 3.7 4.1 Chloride 101 101 99 Carbon Dioxide 30 35 H 33 H BUN 38 H 37 H 37 H Creatinine 1.24 H 1.10 1.10 Glucose 164 H 81 198 H Calcium 9.1 9.0 9.0 Medications Administered Current Inpatient Medications Acetaminophen (Acetaminophen 325 Mg Tab) 650 mg PO Q4H PRN PRN Reason: Pain or Fever Stop: 12/05/22 18:39 Last Admin: 11/06/22 08:40 Dose: 650 mg Acetaminophen (Acetaminophen 500 Mg Tab) 1,000 mg PO HS [facility] Stop: 12/05/22 20:59 Last Admin: 11/15/22 20:52 Dose: 1,000 mg Al Hydrox/Mg Hydrox/Simethicone (Aluminum/Magnesium/Simeth (Maalox Max) 30 Ml Udc) 30 ml PO Q6H PRN PRN Reason: Heartburn Stop: 12/13/22 19:30 Last Admin: 11/14/22 21:04 Dose: 30 ml Lipase/Protease/Amylase (Pancreaze (Lipase 10,500u) Cap) 2 cap PO QIDM [facility] Stop: 12/05/22 20:59 Last Admin: 11/16/22 12:57 Dose: Not Given Lipase/Protease/Amylase (Pancreaze (Lipase 4,200u) Cap) 1 cap PO QIDM [facility] Stop: 12/05/22 20:59 Last Admin: 11/16/22 12:57 Dose: Not Given Ascorbic Acid (Ascorbic Acid 500 Mg Tab) 500 mg PO QAM [facility] Stop: 12/06/22 08:59 Last Admin: 11/16/22 08:23 Dose: 500 mg Aspirin (Aspirin 81 Mg Ectab) 81 mg PO QAM [facility] Stop: 12/06/22 08:59 Last Admin: 11/16/22 08:23 Dose: 81 mg Atorvastatin Calcium (Atorvastatin 40 Mg Tab) 40 mg PO HS [facility] Stop: 12/05/22 20:59 Last Admin: 11/15/22 20:56 Dose: 40 mg Betaxolol HCl (Betaxolol Hcl 0.5% Op 5 Ml Btl) 1 drops OPL [facility] Stop: 12/05/22 20:59 Last Admin: 11/16/22 08:26 Dose: 1 drops Brimonidine Tartrate (Brimonidine Tartrate 0.2% 5ml) 1 drops OPL BID [facility] Stop: 12/05/22 20:59 Last Admin: 11/16/22 08:26 Dose: 1 drops Calcium Carbonate (Calcium Carbonate 500 Mg Chewable Tab) 500 mg PO QID PRN PRN Reason: Indigestion Stop: 12/09/22 18:41 Clopidogrel Bisulfate (Clopidogrel Bisulfate 75 Mg Tab) 75 mg PO QAM [facility] Stop: 12/06/22 08:59 Last Admin: 11/16/22 08:26 Dose: 75 mg Clotrimazole (Clotrimazole 1% Cr 15 Gm Tube) 1 appln EXT BID [facility] Stop: 11/19/22 20:59 Last Admin: 11/16/22 08:26 Dose: 1 appln Cyanocobalamin (Cyanocobalamin (B-12) 500 Mcg Tablet) 1,500 mcg PO QPM [facility] Stop: 12/05/22 20:59 Last Admin: 11/15/22 20:57 Dose: 1,500 mcg Dextrose (Dextrose 50% 50 Ml Syringe) 25 - 50 ml IV UD PRN; Protocol PRN Reason: Hypoglycemia Protocol Stop: 12/05/22 17:38 Enoxaparin Sodium (Enoxaparin Inj 40 Mg/0.4 Ml Syr) 40 mg SQ QAM [facility] Stop: 12/06/22 08:59 Last Admin: 11/16/22 08:25 Dose: 40 mg Erythromycin (Erythromycin Op Oint 5 Mg/Gm 3.5 Gm Tube) 1 appln OP QID [facility] Stop: 11/25/22 21:44 Last Admin: 11/16/22 13:39 Dose: 1 appln Ferrous Sulfate (Ferrous Sulfate 325 Mg Tab) 325 mg PO DAILY [facility] Stop: 12/06/22 08:59 Last Admin: 11/16/22 08:24 Dose: 325 mg Fluticasone Propionate (Fluticasone Propionate Na Spr 16 Gm Btl) 2 sprays NA QAM [facility] Stop: 12/06/22 08:59 Last Admin: 11/16/22 08:27 Dose: 2 sprays Folic Acid (Folic Acid 1 Mg Tab) 1 mg PO QAM [facility] Stop: 12/06/22 08:59 Last Admin: 11/16/22 08:24 Dose: 1 mg Gabapentin (Gabapentin 400 Mg Cap) 400 mg PO TID [facility] Stop: 12/05/22 20:59 Last Admin: 11/16/22 08:25 Dose: 400 mg Glucagon (Glucagon For Inj 1 Mg Vial) 1 mg SQ UD PRN; Protocol PRN Reason: Hypoglycemia Protocol Stop: 12/05/22 17:38 Glucose (Glucose 10 Tab/Tube) 4 - 8 tab PO UD PRN; Protocol PRN Reason: Hypoglycemia Treatment Stop: 12/05/22 17:38 Glucose (Glucose 40% Gel 15 Gm Tube) 15 - 30 gm PO UD PRN; Protocol PRN Reason: Hypoglycemia Protocol Stop: 12/05/22 17:38 Hydroxychloroquine Sulfate (Hydroxychloroquine Sulfate 200 Mg Tab) 400 mg PO HS [facility] Stop: 12/05/22 20:59 Last Admin: 11/15/22 21:27 Dose: 400 mg Furosemide 100 mg/ Dextrose 100 mls @ 20 mls/hr IV .Q5H [facility] Stop: 12/13/22 10:29 Last Admin: 11/16/22 10:25 Dose: 20 mg/hr, 20 mls/hr Promethazine HCl 12.5 mg/ (Sodium Chloride) 50.5 mls @ 202 mls/hr IV Q6H PRN PRN Reason: Nausea And Vomiting Stop: 12/15/22 00:06 Last Infusion: 11/15/22 02:00 Dose: Infused Insulin Aspart (Insulin Aspart Per Unit Charge) 0 units SC ACHS [facility] Stop: 12/05/22 20:59 Last Admin: 11/16/22 12:56 Dose: Not Given Insulin Glargine (Lantus Per Unit Charge) 10 units SQ BID [facility] Stop: 12/11/22 20:59 Last Admin: 11/16/22 08:21 Dose: 10 units Lactobacillus Acidophilus (Advanced Probiotic 1250 Mg Capsule) 1 cap PO QAM [facility] Stop: 12/06/22 08:59 Last Admin: 11/16/22 08:23 Dose: 1 cap Latanoprost (Latanoprost 0.005% Op Soln 2.5 Ml Btl) 1 drops OPB HS [facility] Stop: 12/05/22 20:59 Last Admin: 11/14/22 20:49 Dose: 1 drops Levothyroxine Sodium (Levothyroxine Sodium 125 Mcg Tablet) 125 mcg PO DAILYBB [facility] Stop: 12/06/22 06:29 Last Admin: 11/16/22 05:25 Dose: 125 mcg Loperamide HCl (Loperamide Hcl 2 Mg Cap) 2 mg PO Q3H PRN PRN Reason: Diarrhea Stop: 12/13/22 09:45 Last Admin: 11/15/22 17:19 Dose: 2 mg Lorazepam (Lorazepam 0.5 Mg Tab) 0.5 mg PO TID PRN PRN Reason: Anxiety Stop: 12/05/22 19:50 Last Admin: 11/15/22 23:04 Dose: 0.5 mg Magnesium Oxide (Magnesium Oxide 400 Mg Tab) 400 mg PO BID [facility] Stop: 12/06/22 20:59 Last Admin: 11/16/22 08:24 Dose: 400 mg Melatonin (Melatonin 3 Mg Tab) 6 mg PO HS [facility] Stop: 12/05/22 20:59 Last Admin: 11/15/22 20:54 Dose: 6 mg Menthol (Cough Drop (Sugar Free) Rob 24 Rob/1 Box) 1 rob BUCCAL TID PRN PRN Reason: Sore Throat Stop: 12/11/22 22:49 Last Admin: 11/11/22 23:23 Dose: 1 rob Metoprolol Succinate (Metoprolol Succ 25mg Ext Rel Tab) 12.5 mg PO BID [facility] Stop: 12/13/22 20:59 Last Admin: 11/16/22 08:23 Dose: 12.5 mg Miscellaneous (Carbohydrates For Hypoglycemia ) 15 - 30 gm PO UD PRN PRN Reason: Hypoglycemia Protocol Stop: 12/05/22 17:38 Multivitamins/Minerals (Cerovite Adv Formula Tab) 1 tab PO QAM [facility] Stop: 12/06/22 08:59 Last Admin: 11/16/22 08:24 Dose: 1 tab Netarsudil (Netarsudil Mesylate 37 Drops/2.5 Ml Btl) 1 drops OPL HS [facility] Stop: 12/06/22 20:59 Last Admin: 11/15/22 21:00 Dose: 1 drops Nitroglycerin (Nitroglycerin Sl 0.4 Mg/Tab Tab) 0.4 mg SL Q5M PRN PRN Reason: Chest Pain Stop: 12/05/22 18:39 Nystatin (Nystatin Powder 15gm Btl) 1 appln EXT TID PRN PRN Reason: irritation Stop: 12/05/22 19:50 Last Admin: 11/07/22 21:52 Dose: 1 appln Pantoprazole Sodium (Pantoprazole 40 Mg Tab) 40 mg PO QAM [facility] Stop: 12/06/22 08:59 Last Admin: 11/16/22 08:23 Dose: 40 mg Potassium Chloride (Potassium Chloride Crtab 20 Meq Tabcr) 40 meq PO TIDM [facility] Stop: 12/16/22 11:59 Last Admin: 11/16/22 13:39 Dose: 40 meq Prednisone (Prednisone 5 Mg Tab) 5 mg PO QAM [facility] Stop: 12/06/22 08:59 Last Admin: 11/16/22 08:23 Dose: 5 mg Spironolactone (Spironolactone 25 Mg Tab) 25 mg PO DAILY [facility] Stop: 12/13/22 07:59 Last Admin: 11/16/22 08:24 Dose: 25 mg Tamsulosin HCl (Tamsulosin Hcl 0.4 Mg Cap) 0.4 mg PO HS [facility] Stop: 12/05/22 20:59 Last Admin: 11/15/22 20:57 Dose: 0.4 mg
[2022-11-16 17:05] LABS: BUN Creatinine Ratio 34.9 (10-20); Calcium 8.9 mg/dl (8.6-10.3); Creatinine Clr Calc Pharmacy 61.4 ml/min; Est GFR (African American) 58.7 ml/min; Est GFR (Non-African American) 50.7 ml/min; Potassium 4.3 mmol/L (3.5-5.1)
[2022-11-16] MEDS: ACETAMINOPHEN 500 MG TAB PO SCH (20:20)
[2022-11-16] MEDS: HYDROXYCHLOROQUINE SULFATE 200 MG TAB PO SCH (20:22)
[2022-11-16] MEDS: MELATONIN 3 MG TAB PO SCH (20:23)
[2022-11-16] MEDS: ATORVASTATIN 40 MG TAB PO SCH (20:23)
[2022-11-16] MEDS: TAMSULOSIN HCL 0.4 MG CAP PO SCH (20:24)
[2022-11-16] MEDS: CYANOCOBALAMIN (B-12) 500 MCG TABLET PO SCH (20:24)
[2022-11-16] MEDS: LATANOPROST 0.005% OP SOLN 2.5 ML BTL OPB SCH (20:25)
[2022-11-16] MEDS: NETARSUDIL MESYLATE 37 DROPS/2.5 ML BTL OPL SCH (20:26)
[2022-11-16] MEDS: ALUMINUM/MAGNESIUM/SIMETH (MAALOX MAX) 30 ML UDC PO PRN (21:22)
[2022-11-16] MEDS: LORazepam 0.5 MG TAB PO PRN (23:25)
[2022-11-17] MEDS: FUROSEMIDE 100 MG in DEXTROSE 5% 90 ML IV SCH ×8 (00:29→21:31)
[2022-11-17] MEDS: LEVOTHYROXINE SODIUM 125 MCG TABLET PO SCH (05:52)
[2022-11-17 07:23] LABS: Creatinine Clr Calc Pharmacy 66.1 ml/min; Est GFR (African American) 64.4 ml/min; Est GFR (Non-African American) 55.6 ml/min
--- NOTE | 2022-11-17 07:53 | Cardiology Progress Note ---
Date of Service November 17, 2022 Assessment & Plan (1) Acute on chronic combined systolic (congestive) and diastolic (congestive) heart failure: (2) Aortic stenosis: (3) CKD (chronic kidney disease): Admission and Anticipated Discharge Date Admission Date: November 05, 2022 Supervising Physician Co-Signing Physician Notes Attending Staff: Pt was seen and evaluated with [facility] staff. 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 Case reviewed Markedly volume overloaded + JVP 18 cmH20 S1 - murmur - Muted S2 Decreased BS at Right base + Abdominal Wall Edema +3 Bilateral LE edema extending to the inguinal folds Pt is making progress with volume Degree of volume overload is severe Plan: Aggressive diuresis Lasix 200 IV x1 Increase Lasix infusion to 30 mg IV/hr Consider Purewik for urine collection MARIXA - OFF Stop Lopressor 12.5 mg po BID Start Toprol XL 12.5 mg po per day BID electrolyte check K+ goal 4.5-5 Increase KCL 60 meq po TID Supplemental K+ as needed to achieve goal Continue Aldactone 25 mg po per day Mag goal >2 STANDING WEIGHT DAILY + Stent Continue ASA 81 mg po per day Continue Plavix 75 mg po per day Continue Lipitor 40 mg po per day LDL (PENDING) [place] [facility] [place] [facility] [place] and managment of acute on chronic combined heart failure Mobilize patient Dylan Saravia Subjective 11/10/2022 The patient was seen and examined in telemetry unit She has been feeling much better and denies any shortness of breath at rest She still gets shortness of breath with minimal exertion Denies any chest pain and/or palpitation and the leg swelling has been improving 11/11/2022 The patient was seen and examined in telemetry unit She has been feeling a lot better but not yet ready to be discharged Denies any significant symptoms She will get PT and OT evaluation 11/12/2022 The patient was seen and examined in telemetry unit She has been feeling much better She continues to diurese and IV Lasix will be continued Denies any chest pain and/or palpitation or any shortness of breath at rest 11/13/2022 The patient was seen and examined in telemetry unit She has been feeling much better and denies any symptoms at rest Her Lasix will be changed to IV pulse therapy She is out of bed on a chair and remains asymptomatic 11/14/2022 The patient was seen and examined in telemetry unit She has been feeling much better and has been having enough diuresis Denies any symptoms Feels that her abdomen is getting smaller and breathing is getting better 11/15/2022 The patient was seen and examined in telemetry unit She has been feeling better Her blood pressure is on the lower side and is still getting intravenous Lasix infusion Denies any significant symptoms 11/16/2022 The patient was seen and telemetry unit She has been stable feeling a lot better Her legs are getting less swelling and denies any shortness of breath at rest Has had so for about 9 L negative balance 11/17/2022 Events overnight - none Ongoing diuresis Review of Systems Review of Systems: All systems reviewed & are unremarkable except as noted in HPI & below Complete review of systems is otherwise as stated above, negative, noncontributory Physical Exam Physical Exam: General: Alert, no distress, well nourished, well developed, comfortable and cooperative HENT: Normocephalic. Atraumatic. Neck: + JVD. - 14 cmH20 Heart: Distant heart sounds. Regular at 76 bpm. Grade II/ systolic murmur. Lungs: Decreased at the bases. Bibasilar rales. No wheeze. Abdomen: +BS. Distended. Nontender. No masses. Abdominal wall edema Extremities: 2+ pitting edema, diffuse. No clubbing. No cyanosis Pulses: radial=2/4, posterior tibial=0/4. Skin: + Fungal appearing rash on lower extremities. Limited neurological examination: No focal deficit. Results & Data Vital Signs (Past 12 Hours) Vital Signs Temp Pulse Pulse Resp BP Pulse Ox O2 Del Method 11/17/22 03:51 Nasal Cannula 11/17/22 03:35 36.4 C L 76 20 102/68 99 Nasal Cannula 11/17/22 03:20 80 11/16/22 23:09 36.6 C 89 20 99/70 L 95 Nasal Cannula O2 Flow Rate 11/17/22 03:51 2 11/17/22 03:35 2 11/17/22 03:20 11/16/22 23:09 2 Laboratory Results Comprehensive Metabolic Panel 11/16/22 11/16/22 11/17/22 Range/Units 12:29 15:55 06:02 Sodium 139 137 142 (136-145) mmol/L Potassium 4.1 4.3 3.7 (3.5-5.1) mmol/L Chloride 99 99 100 (98-107) mmol/L Carbon Dioxide 33 H 31 32 (21-32) mmol/L BUN 37 H 38 H 38 H (6-23) mg/dl Creatinine 1.10 1.09 1.01 (0.6-1.2) mg/dl Glucose 198 H 194 H 86 (70-99(Fasting)) mg/dl Calcium 9.0 8.9 9.1 (8.6-10.3) mg/dl Intake and Output 11/16/22 11/17/22 11/17/22 22:59 06:59 14:59 Intake Total 1075.000 / 1506.000 331.000 / 1506.000 94 / 94 Output Total 2000 800 / 2801 Balance -926.000 / -1295.000 -469.000 / -1295.000 93 / 93 Intake: IV 195.000 / 476.000 181.000 / 476.000 94 / 94 Furosemide 100 mg In Dextrose 5 195.000 / 476.000 181.000 / 476.000 94 / 94 % 90 ml @ 20 MG/HR 20 mls/hr IV .Q5H [facility] Rx#:[id number] Oral 880 / 1030 150 / 1030 Output: Urine Amount (Catheter) 1999 800 / 2800 Red/Indwelling 1999 280 800 / 2800 # Bowel Movements Other: Other Intake Source 100% breakfast 100% lunch Weight 127.7 kg Weight Measurement Method Standing Scale Diagnostic Findings ECHOcardiogram: 08/2022 LVEF 25-30% Severe Mild MR Medications Administered Current Inpatient Medications Acetaminophen (Acetaminophen 325 Mg Tab) 650 mg PO Q4H PRN PRN Reason: Pain or Fever Stop: 12/05/22 18:39 Last Admin: 11/06/22 08:40 Dose: 650 mg Acetaminophen (Acetaminophen 500 Mg Tab) 1,000 mg PO LIBBY Stop: 12/05/22 20:59 Last Admin: 11/16/22 20:20 Dose: 1,000 mg Al Hydrox/Mg Hydrox/Simethicone (Aluminum/Magnesium/Simeth (Maalox Max) 30 Ml Udc) 30 ml PO Q6H PRN PRN Reason: Heartburn Stop: 12/13/22 19:30 Last Admin: 11/16/22 21:22 Dose: 30 ml Lipase/Protease/Amylase (Pancreaze (Lipase 10,500u) Cap) 2 cap PO QIDM [facility]BY Stop: 12/05/22 20:59 Last Admin: 11/16/22 20:22 Dose: 2 cap Lipase/Protease/Amylase (Pancreaze (Lipase 4,200u) Cap) 1 cap PO QIDM [facility] Stop: 12/05/22 20:59 Last Admin: 11/16/22 20:22 Dose: 1 cap Ascorbic Acid (Ascorbic Acid 500 Mg Tab) 500 mg PO QAM [facility] Stop: 12/06/22 08:59 Last Admin: 11/16/22 08:23 Dose: 500 mg Aspirin (Aspirin 81 Mg Ectab) 81 mg PO QAM [facility] Stop: 12/06/22 08:59 Last Admin: 11/16/22 08:23 Dose: 81 mg Atorvastatin Calcium (Atorvastatin 40 Mg Tab) 40 mg PO HS [facility] Stop: 12/05/22 20:59 Last Admin: 11/16/22 20:23 Dose: 40 mg Betaxolol HCl (Betaxolol Hcl 0.5% Op 5 Ml Btl) 1 drops OPL [facility]HS [facility] Stop: 12/05/22 20:59 Last Admin: 11/16/22 20:25 Dose: 1 drops Brimonidine Tartrate (Brimonidine Tartrate 0.2% 5ml) 1 drops OPL BID [facility] Stop: 12/05/22 20:59 Last Admin: 11/16/22 20:25 Dose: 1 drops Calcium Carbonate (Calcium Carbonate 500 Mg Chewable Tab) 500 mg PO QID PRN PRN Reason: Indigestion Stop: 12/09/22 18:41 Clopidogrel Bisulfate (Clopidogrel Bisulfate 75 Mg Tab) 75 mg PO QAM [facility] Stop: 12/06/22 08:59 Last Admin: 11/16/22 08:26 Dose: 75 mg Clotrimazole (Clotrimazole 1% Cr 15 Gm Tube) 1 appln EXT BID [facility] Stop: 11/19/22 20:59 Last Admin: 11/16/22 20:26 Dose: 1 appln Cyanocobalamin (Cyanocobalamin (B-12) 500 Mcg Tablet) 1,500 mcg PO QPM [facility] Stop: 12/05/22 20:59 Last Admin: 11/16/22 20:24 Dose: 1,500 mcg Dextrose (Dextrose 50% 50 Ml Syringe) 25 - 50 ml IV UD PRN; Protocol PRN Reason: Hypoglycemia Protocol Stop: 12/05/22 17:38 Enoxaparin Sodium (Enoxaparin Inj 40 Mg/0.4 Ml Syr) 40 mg SQ QAM [facility] Stop: 12/06/22 08:59 Last Admin: 11/16/22 08:25 Dose: 40 mg Erythromycin (Erythromycin Op Oint 5 Mg/Gm 3.5 Gm Tube) 1 appln OP QID [facility] Stop: 11/25/22 21:44 Last Admin: 11/16/22 20:20 Dose: 1 appln Ferrous Sulfate (Ferrous Sulfate 325 Mg Tab) 325 mg PO DAILY [facility] Stop: 12/06/22 08:59 Last Admin: 11/16/22 08:24 Dose: 325 mg Fluticasone Propionate (Fluticasone Propionate Na Spr 16 Gm Btl) 2 sprays NA QAM [facility] Stop: 12/06/22 08:59 Last Admin: 11/16/22 08:27 Dose: 2 sprays Folic Acid (Folic Acid 1 Mg Tab) 1 mg PO QAM [facility] Stop: 12/06/22 08:59 Last Admin: 11/16/22 08:24 Dose: 1 mg Gabapentin (Gabapentin 400 Mg Cap) 400 mg PO TID [facility] Stop: 12/05/22 20:59 Last Admin: 11/16/22 20:24 Dose: 400 mg Glucagon (Glucagon For Inj 1 Mg Vial) 1 mg SQ UD PRN; Protocol PRN Reason: Hypoglycemia Protocol Stop: 12/05/22 17:38 Glucose (Glucose 10 Tab/Tube) 4 - 8 tab PO UD PRN; Protocol PRN Reason: Hypoglycemia Treatment Stop: 12/05/22 17:38 Glucose (Glucose 40% Gel 15 Gm Tube) 15 - 30 gm PO UD PRN; Protocol PRN Reason: Hypoglycemia Protocol Stop: 12/05/22 17:38 Hydroxychloroquine Sulfate (Hydroxychloroquine Sulfate 200 Mg Tab) 400 mg PO HS [facility] Stop: 12/05/22 20:59 Last Admin: 11/16/22 20:22 Dose: 400 mg Furosemide 100 mg/ Dextrose 100 mls @ 20 mls/hr IV .Q5H [facility] Stop: 12/13/22 10:29 Last Admin: 11/17/22 05:13 Dose: 20 mg/hr, 20 mls/hr Promethazine HCl 12.5 mg/ (Sodium Chloride) 50.5 mls @ 202 mls/hr IV Q6H PRN PRN Reason: Nausea And Vomiting Stop: 12/15/22 00:06 Last Infusion: 11/15/22 02:00 Dose: Infused Insulin Aspart (Insulin Aspart Per Unit Charge) 0 units SC ACHS [facility] Stop: 12/05/22 20:59 Last Admin: 11/16/22 20:36 Dose: 2 units Insulin Glargine (Lantus Per Unit Charge) 10 units SQ BID [facility] Stop: 12/11/22 20:59 Last Admin: 11/16/22 20:36 Dose: 10 units Lactobacillus Acidophilus (Advanced Probiotic 1250 Mg Capsule) 1 cap PO QAM [facility] Stop: 12/06/22 08:59 Last Admin: 11/16/22 08:23 Dose: 1 cap Latanoprost (Latanoprost 0.005% Op Soln 2.5 Ml Btl) 1 drops OPB [facility] Stop: 12/05/22 20:59 Last Admin: 11/16/22 20:25 Dose: 1 drops Levothyroxine Sodium (Levothyroxine Sodium 125 Mcg Tablet) 125 mcg PO DAILYBB [facility] Stop: 12/06/22 06:29 Last Admin: 11/17/22 05:52 Dose: 125 mcg Loperamide HCl (Loperamide Hcl 2 Mg Cap) 2 mg PO Q3H PRN PRN Reason: Diarrhea Stop: 12/13/22 09:45 Last Admin: 11/15/22 17:19 Dose: 2 mg Lorazepam (Lorazepam 0.5 Mg Tab) 0.5 mg PO TID PRN PRN Reason: Anxiety Stop: 12/05/22 19:50 Last Admin: 11/16/22 23:25 Dose: 0.5 mg Magnesium Oxide (Magnesium Oxide 400 Mg Tab) 400 mg PO BID [facility] Stop: 12/06/22 20:59 Last Admin: 11/16/22 20:23 Dose: 400 mg Melatonin (Melatonin 3 Mg Tab) 6 mg PO HS [facility] Stop: 12/05/22 20:59 Last Admin: 11/16/22 20:23 Dose: 6 mg Menthol (Cough Drop (Sugar Free) Rob 24 Rob/1 Box) 1 rob BUCCAL TID PRN PRN Reason: Sore Throat Stop: 12/11/22 22:49 Last Admin: 11/11/22 23:23 Dose: 1 rob Metoprolol Succinate (Metoprolol Succ 25mg Ext Rel Tab) 12.5 mg PO BID [facility] Stop: 12/13/22 20:59 Last Admin: 11/16/22 20:22 Dose: 12.5 mg Miscellaneous (Carbohydrates For Hypoglycemia ) 15 - 30 gm PO UD PRN PRN Reason: Hypoglycemia Protocol Stop: 12/05/22 17:38 Multivitamins/Minerals (Cerovite Adv Formula Tab) 1 tab PO QAM [facility] Stop: 12/06/22 08:59 Last Admin: 11/16/22 08:24 Dose: 1 tab Netarsudil (Netarsudil Mesylate 37 Drops/2.5 Ml Btl) 1 drops OPL HS [facility] Stop: 12/06/22 20:59 Last Admin: 11/16/22 20:26 Dose: 1 drops Nitroglycerin (Nitroglycerin Sl 0.4 Mg/Tab Tab) 0.4 mg SL Q5M PRN PRN Reason: Chest Pain Stop: 12/05/22 18:39 Nystatin (Nystatin Powder 15gm Btl) 1 appln EXT TID PRN PRN Reason: irritation Stop: 12/05/22 19:50 Last Admin: 11/07/22 21:52 Dose: 1 appln Pantoprazole Sodium (Pantoprazole 40 Mg Tab) 40 mg PO QAM [facility] Stop: 12/06/22 08:59 Last Admin: 11/16/22 08:23 Dose: 40 mg Potassium Chloride (Potassium Chloride Crtab 20 Meq Tabcr) 40 meq PO TIDM [facility] Stop: 12/16/22 11:59 Last Admin: 11/16/22 17:14 Dose: 40 meq Prednisone (Prednisone 5 Mg Tab) 5 mg PO QAM [facility] Stop: 12/06/22 08:59 Last Admin: 11/16/22 08:23 Dose: 5 mg Spironolactone (Spironolactone 25 Mg Tab) 25 mg PO DAILY [facility] Stop: 12/13/22 07:59 Last Admin: 11/16/22 08:24 Dose: 25 mg Tamsulosin HCl (Tamsulosin Hcl 0.4 Mg Cap) 0.4 mg PO [facility] [place] Stop: 12/05/22 20:59 Last Admin: 11/16/22 20:24 Dose: 0.4 mg
[2022-11-17] MEDS: INSULIN ASPART PER UNIT CHARGE SC SCH ×4 (08:46→21:32)
[2022-11-17] MEDS: LANTUS PER UNIT CHARGE SQ SCH ×2 (08:46→21:32)
[2022-11-17] MEDS: CLOTRIMAZOLE 1% CR 15 GM TUBE EXT SCH ×2 (08:46→21:26)
[2022-11-17] MEDS: ERYTHROMYCIN OP OINT 5 MG/GM 3.5 GM TUBE OP SCH ×4 (08:47→21:26)
[2022-11-17] MEDS: BRIMONIDINE TARTRATE 0.2% 5ML OPL SCH ×2 (08:47→21:20)
[2022-11-17] MEDS: BETAXOLOL HCL 0.5% OPL SCH ×2 (08:48→21:18)
[2022-11-17] MEDS: FLUTICASONE PROPIONATE NA SPR 16 GM BTL SCH (08:48)
[2022-11-17] MEDS: ENOXAPARIN INJ 40 MG/0.4 ML SYR SQ SCH (08:48)
[2022-11-17] MEDS: PANCREAZE (LIPASE 10,500U) CAP PO SCH ×4 (08:49→21:19)
[2022-11-17] MEDS: CEROVITE ADV FORMULA TAB PO SCH (08:49)
[2022-11-17] MEDS: SPIRONOLACTONE 25 MG TAB PO SCH (08:49)
[2022-11-17] MEDS: predniSONE 5 MG TAB PO SCH (08:50)
[2022-11-17] MEDS: METOPROLOL SUCC 25MG EXT REL TAB PO SCH (08:51)
[2022-11-17] MEDS: GABAPENTIN 400 MG CAP PO SCH ×3 (08:51→21:20)
[2022-11-17] MEDS: POTASSIUM CHLORIDE CRTAB 20 MEQ TABCR PO SCH ×3 (08:52→17:42)
[2022-11-17] MEDS: ASCORBIC ACID 500 MG TAB PO SCH (08:52)
[2022-11-17] MEDS: FERROUS SULFATE 325 MG TAB PO SCH (08:52)
[2022-11-17] MEDS: PANTOprazole 40 MG TAB PO SCH (08:53)
[2022-11-17] MEDS: ASPIRIN 81 MG ECTAB PO SCH (08:53)
[2022-11-17] MEDS: MAGNESIUM OXIDE 400 MG TAB PO SCH ×2 (08:53→21:21)
[2022-11-17] MEDS: ADVANCED PROBIOTIC 1250 MG CAPSULE PO SCH (08:53)
[2022-11-17] MEDS: CLOPIDOGREL BISULFATE 75 MG TAB PO SCH (08:53)
[2022-11-17] MEDS: FOLIC ACID 1 MG TAB PO SCH (08:53)
[2022-11-17] MEDS: PANCREAZE (LIPASE 4,200U) CAP PO SCH ×4 (08:54→21:25)
[2022-11-17] MEDS: ALUMINUM/MAGNESIUM/SIMETH (MAALOX MAX) 30 ML UDC PO PRN (09:14)
[2022-11-17 09:17] LABS: BUN Creatinine Ratio 37.6 (10-20); Calcium 9.1 mg/dl (8.6-10.3); Magnesium 2.1 mg/dl (1.7-2.4); Potassium 3.7 mmol/L (3.5-5.1)
[2022-11-17] MEDS ORDERED: FUROSEMIDE 10 MG/ML 10 ML VIAL IV ONE (10:24)
[2022-11-17] MEDS ORDERED: FUROSEMIDE IV SCH (11:15)
--- NOTE | 2022-11-17 14:51 | Hospitalist Progress Note ---
Date of Service November 17, 2022 Assessment & Plan (1) Acute on chronic combined systolic (congestive) and diastolic (congestive) heart failure: Plan: Wyatt is a 72 y/o with a complicated medical history including combined systolic and diastolic heart failure, CAD s/p PCI with WALTER, aortic stenosis (suspected severe), tachy-wilfrido syndrome s/p PPM in 2021, persistent afib since 07/01, bilateral carotid bruits, insulin-requiring DM, blindness, rheumatoid arthritis, chronic prednisone use, LAQUITA on CPAP, CKD3a, hypothyroidism, HTN, open-angle glaucoma, and recurrent liver cancer s/p recent placement of radiation beads. Presented with progressive shortness of breath over 5 weeks which did not improve even with increasing diuretics Her leg edema has been seeping liquid constantly Started with Lasix 40mg IV BID--> increased to lasix 60mg BID 11/08 40lb over ideal weight Appreciate cardiology input and recommendation Lasix has been increased to 80 mg IV twice daily and added spironolactone 12.5 mg daily with supplemental potassium as needed Negative balance of more than 3 L so far and will continue monitor intake and output We will continue current doses of diuretics as per the typewriter assembly and parts inspector and the case discussed with the typewriter assembly and parts inspector Has been feeling better and is out of bed on a chair Denies any significant symptoms except weakness We will continue with PT and OT evaluation Remains stable and has been diuresing enough Continue current dose of furosemide and monitor kidney function Creatinine remains stable and the Lasix doses have been changed to intravenous drip We will monitor I&O and renal function Has been having enough diuresis and so for about 7 L negative fluid balance Continue with aggressive diuresis with intravenous Lasix drip today and monitor BMp Has been diuresing enough and will continue Lasix infusion for a day or 2 more as advised by the typewriter assembly and parts inspector Blood pressure is on the lower side and Lopressor is on hold We will check electrolytes and kidney function Has been diuresis enough but needs to be taken out more-will increase Lasix drip to 30 mg/h More than 10 L negative balance so far and the electrolytes are maintained (2) Tinea corporis: Plan: Rash on left knee seems most consistent with tinea corporis - Started clotrimazole 1% cream BID for a 14 days course (3) Chronic kidney disease, stage 3: Plan: monitor Cr with diuresis Creatinine remains stable with normal electrolytes Creatinine remains stable and electrolytes are normal Kidney function has gotten a little worse but that will be monitored We will get PRP checked-creatinine remains stable Urea level is slightly up at 38 but creatinine has been normal (4) Diabetes mellitus, type 2: Plan: Basal and sliding scale insulin Diabetic diet Has been having low blood sugar around upper 60s We will decrease Lantus from 15 units twice daily to 10 units twice daily Sugar remains stable following adjustment of insulin (5) Hypothyroidism: Plan: Continue replacement (6) Sleep apnea: Plan: CPAP ordered - settings from pt's outpatient records (7) Glaucoma: (8) Rheumatoid arthritis: Plan: Methotrexate currently on hold due to leg wounds - will continue prednisone and plaquenil Remains free from any significant arthritic pain We will hold methotrexate for now No acute arthritis involving any of the joint (9) Iron deficiency anemia: (10) Venous stasis ulcers: Plan: Wound care consult She has chronic LE wounds for which she is following with wound care but she has been told that until the fluid overload is improved, her wounds will be unlikely to heal. Right leg cellulitis Extensive antibiotic allergy noted. Started linezolid 600mg BID, anticipate 7 day course. Dressing as per wound care Advised to keep the legs elevated while in bed We will continue with the dressing as per wound care Advised to keep the legs elevated while in bed Continue to continue to leg dressings as advised Leg wounds are getting better with decreasing leg edema (11) Hepatocellular carcinoma: Plan: OP follow up Plan Code status: Full code but no prolonged heroic measures. Son is her POA DVT Prophylaxis: Lovenox Disposition-- Evaluated by PT/OT, rehab recommended We will be ready to go to [facility] when cleared by the cardiology Admission and Anticipated Discharge Date Admission Date: November 05, 2022 Subjective 11/10/2022 The patient was seen and examined in telemetry unit She has been feeling much better and denies any shortness of breath at rest She still gets shortness of breath with minimal exertion Denies any chest pain and/or palpitation and the leg swelling has been improving 11/11/2022 The patient was seen and examined in telemetry unit She has been feeling a lot better but not yet ready to be discharged Denies any significant symptoms She will get PT and OT evaluation 11/12/2022 The patient was seen and examined in telemetry unit She has been feeling much better She continues to diurese and IV Lasix will be continued Denies any chest pain and/or palpitation or any shortness of breath at rest 11/13/2022 The patient was seen and examined in telemetry unit She has been feeling much better and denies any symptoms at rest Her Lasix will be changed to IV pulse therapy She is out of bed on a chair and remains asymptomatic 11/14/2022 The patient was seen and examined in telemetry unit She has been feeling much better and has been having enough diuresis Denies any symptoms Feels that her abdomen is getting smaller and breathing is getting better 11/15/2022 The patient was seen and examined in telemetry unit She has been feeling better Her blood pressure is on the lower side and is still getting intravenous Lasix infusion Denies any significant symptoms 11/16/2022 The patient was seen and telemetry unit She has been stable feeling a lot better Her legs are getting less swelling and denies any shortness of breath at rest Has had so for about 9 L negative balance 11/17/2022 The patient was seen and examined in telemetry unit She has been feeling a lot better but he still needs to be diuresed Denies any symptoms at rest Review of Systems Review of Systems: All systems reviewed and unremarkable except as noted below Physical Exam Physical Exam: Sitting on a chair without any acute distress Constitutional: well developed, well nourished, + ill appearing and + morbidly obese Eyes: PERRL, conjunctivae normal, anicteric sclerae ENMT: external ear and nose normal, oropharynx normal Neck: trachea midline, no thyromegaly Respiratory: no respiratory distress Auscultation: + diminished lung sounds and + crackles (Bibasal crackles) Cardiovascular: Rate/Rhythm: regular rate and regular rhythm; not tachycardic Heart Sounds: normal S1 and normal S2; no murmur Extremities: + edema (1+ edema bilaterally with seeping of fluid) Gastrointestinal (Abdomen): Inspection/Auscultation: + abdomen distended and normal bowel sounds Percussion/Palpation: abdomen soft; abdomen nontender Skin: Leg wounds are looking much better Neurologic: normal touch/pain/proprioception and moves all extremities; no focal motor deficits Psychiatric: A+Ox3, euthymic affect Lymphatic: no cervical or axillary lymphadenopathy Results & Data Results & Data Vital Signs (Past 12 Hours) Vital Signs Temp Pulse Pulse Pulse Resp BP Pulse Ox 11/17/22 12:15 36.6 C 78 18 106/71 100 11/17/22 08:00 11/17/22 08:27 36.4 C L 72 20 107/80 95 11/17/22 03:51 11/17/22 03:35 36.4 C L 76 20 102/68 99 11/17/22 03:20 80 O2 Del Method O2 Flow Rate 11/17/22 12:15 Nasal Cannula 2 11/17/22 08:00 Nasal Cannula 2 11/17/22 08:27 Nasal Cannula 2 11/17/22 03:51 Nasal Cannula 2 11/17/22 03:35 Nasal Cannula 2 11/17/22 03:20 Laboratory Results BMP 11/16/22 11/17/22 15:55 06:02 Sodium 137 142 Potassium 4.3 3.7 Chloride 99 100 Carbon Dioxide 31 32 BUN 38 H 38 H Creatinine 1.09 1.01 Glucose 194 H 86 Calcium 8.9 9.1 Medications Administered Current Inpatient Medications Acetaminophen (Acetaminophen 325 Mg Tab) 650 mg PO Q4H PRN PRN Reason: Pain or Fever Stop: 12/05/22 18:39 Last Admin: 11/06/22 08:40 Dose: 650 mg Acetaminophen (Acetaminophen 500 Mg Tab) 1,000 mg PO HS [facility] Stop: 12/05/22 20:59 Last Admin: 11/16/22 20:20 Dose: 1,000 mg Al Hydrox/Mg Hydrox/Simethicone (Aluminum/Magnesium/Simeth (Maalox Max) 30 Ml Udc) 30 ml PO Q6H PRN PRN Reason: Heartburn Stop: 12/13/22 19:30 Last Admin: 11/17/22 09:14 Dose: 30 ml Lipase/Protease/Amylase (Pancreaze (Lipase 10,500u) Cap) 2 cap PO QIDM [facility] Stop: 12/05/22 20:59 Last Admin: 11/17/22 11:51 Dose: 2 cap Lipase/Protease/Amylase (Pancreaze (Lipase 4,200u) Cap) 1 cap PO QIDM [facility] Stop: 12/05/22 20:59 Last Admin: 11/17/22 11:51 Dose: 1 cap Ascorbic Acid (Ascorbic Acid 500 Mg Tab) 500 mg PO QAM [facility] Stop: 12/06/22 08:59 Last Admin: 11/17/22 08:52 Dose: 500 mg Aspirin (Aspirin 81 Mg Ectab) 81 mg PO QAM [facility] Stop: 12/06/22 08:59 Last Admin: 11/17/22 08:53 Dose: 81 mg Atorvastatin Calcium (Atorvastatin 40 Mg Tab) 40 mg PO HS [facility] Stop: 12/05/22 20:59 Last Admin: 11/16/22 20:23 Dose: 40 mg Betaxolol HCl (Betaxolol Hcl 0.5% Op 5 Ml Btl) 1 drops OPL AMHS [facility] Stop: 12/05/22 20:59 Last Admin: 11/17/22 08:48 Dose: 1 drops Brimonidine Tartrate (Brimonidine Tartrate 0.2% 5ml) 1 drops OPL BID [facility] Stop: 12/05/22 20:59 Last Admin: 11/17/22 08:47 Dose: 1 drops Calcium Carbonate (Calcium Carbonate 500 Mg Chewable Tab) 500 mg PO QID PRN PRN Reason: Indigestion Stop: 12/09/22 18:41 Clopidogrel Bisulfate (Clopidogrel Bisulfate 75 Mg Tab) 75 mg PO QAM [facility] Stop: 12/06/22 08:59 Last Admin: 11/17/22 08:53 Dose: 75 mg Clotrimazole (Clotrimazole 1% Cr 15 Gm Tube) 1 appln EXT BID [facility] Stop: 11/19/22 20:59 Last Admin: 11/17/22 08:46 Dose: 1 appln Cyanocobalamin (Cyanocobalamin (B-12) 500 Mcg Tablet) 1,500 mcg PO QPM [facility] Stop: 12/05/22 20:59 Last Admin: 11/16/22 20:24 Dose: 1,500 mcg Dextrose (Dextrose 50% 50 Ml Syringe) 25 - 50 ml IV UD PRN; Protocol PRN Reason: Hypoglycemia Protocol Stop: 12/05/22 17:38 Enoxaparin Sodium (Enoxaparin Inj 40 Mg/0.4 Ml Syr) 40 mg SQ QAM [facility] Stop: 12/06/22 08:59 Last Admin: 11/17/22 08:48 Dose: 40 mg Erythromycin (Erythromycin Op Oint 5 Mg/Gm 3.5 Gm Tube) 1 appln OP QID [facility] Stop: 11/25/22 21:44 Last Admin: 11/17/22 13:20 Dose: 1 appln Ferrous Sulfate (Ferrous Sulfate 325 Mg Tab) 325 mg PO DAILY [facility] Stop: 12/06/22 08:59 Last Admin: 11/17/22 08:52 Dose: 325 mg Fluticasone Propionate (Fluticasone Propionate Na Spr 16 Gm Btl) 2 sprays NA QAM [facility] Stop: 12/06/22 08:59 Last Admin: 11/17/22 08:48 Dose: 2 sprays Folic Acid (Folic Acid 1 Mg Tab) 1 mg PO QAM [facility] Stop: 12/06/22 08:59 Last Admin: 11/17/22 08:53 Dose: 1 mg Gabapentin (Gabapentin 400 Mg Cap) 400 mg PO TID [facility] Stop: 12/05/22 20:59 Last Admin: 11/17/22 14:31 Dose: 400 mg Glucagon (Glucagon For Inj 1 Mg Vial) 1 mg SQ UD PRN; Protocol PRN Reason: Hypoglycemia Protocol Stop: 12/05/22 17:38 Glucose (Glucose 10 Tab/Tube) 4 - 8 tab PO UD PRN; Protocol PRN Reason: Hypoglycemia Treatment Stop: 12/05/22 17:38 Glucose (Glucose 40% Gel 15 Gm Tube) 15 - 30 gm PO UD PRN; Protocol PRN Reason: Hypoglycemia Protocol Stop: 12/05/22 17:38 Hydroxychloroquine Sulfate (Hydroxychloroquine Sulfate 200 Mg Tab) 400 mg PO HS [facility] Stop: 12/05/22 20:59 Last Admin: 11/16/22 20:22 Dose: 400 mg Furosemide 100 mg/ Dextrose 100 mls @ 30 mls/hr IV .Q3H20M [facility] Stop: 12/13/22 10:29 Last Admin: 11/17/22 13:19 Dose: 30 mg/hr, 30 mls/hr Promethazine HCl 12.5 mg/ (Sodium Chloride) 50.5 mls @ 202 mls/hr IV Q6H PRN PRN Reason: Nausea And Vomiting Stop: 12/15/22 00:06 Last Infusion: 11/15/22 02:00 Dose: Infused Insulin Aspart (Insulin Aspart Per Unit Charge) 0 units SC ACHS [facility] Stop: 12/05/22 20:59 Last Admin: 11/17/22 11:56 Dose: 10 units Insulin Glargine (Lantus Per Unit Charge) 10 units SQ BID [facility] Stop: 12/11/22 20:59 Last Admin: 11/17/22 08:46 Dose: 10 units Lactobacillus Acidophilus (Advanced Probiotic 1250 Mg Capsule) 1 cap PO QAM [facility] Stop: 12/06/22 08:59 Last Admin: 11/17/22 08:53 Dose: 1 cap Latanoprost (Latanoprost 0.005% Op Soln 2.5 Ml Btl) 1 drops OPB [facility] Stop: 12/05/22 20:59 Last Admin: 11/16/22 20:25 Dose: 1 drops Levothyroxine Sodium (Levothyroxine Sodium 125 Mcg Tablet) 125 mcg PO DAILYBB [facility] Stop: 12/06/22 06:29 Last Admin: 11/17/22 05:52 Dose: 125 mcg Loperamide HCl (Loperamide Hcl 2 Mg Cap) 2 mg PO Q3H PRN PRN Reason: Diarrhea Stop: 12/13/22 09:45 Last Admin: 11/15/22 17:19 Dose: 2 mg Lorazepam (Lorazepam 0.5 Mg Tab) 0.5 mg PO TID PRN PRN Reason: Anxiety Stop: 12/05/22 19:50 Last Admin: 11/16/22 23:25 Dose: 0.5 mg Magnesium Oxide (Magnesium Oxide 400 Mg Tab) 400 mg PO BID [facility] Stop: 12/06/22 20:59 Last Admin: 11/17/22 08:53 Dose: 400 mg Melatonin (Melatonin 3 Mg Tab) 6 mg PO [facility] Stop: 12/05/22 20:59 Last Admin: 11/16/22 20:23 Dose: 6 mg Menthol (Cough Drop (Sugar Free) Rob 24 Rob/1 Box) 1 rob BUCCAL TID PRN PRN Reason: Sore Throat Stop: 12/11/22 22:49 Last Admin: 11/11/22 23:23 Dose: 1 rob Metoprolol Succinate (Metoprolol Succ 25mg Ext Rel Tab) 12.5 mg PO QAM [facility] Stop: 12/18/22 08:59 Miscellaneous (Carbohydrates For Hypoglycemia ) 15 - 30 gm PO UD PRN PRN Reason: Hypoglycemia Protocol Stop: 12/05/22 17:38 Multivitamins/Minerals (Cerovite Adv Formula Tab) 1 tab PO QAM [facility] Stop: 12/06/22 08:59 Last Admin: 11/17/22 08:49 Dose: 1 tab Netarsudil (Netarsudil Mesylate 37 Drops/2.5 Ml Btl) 1 drops OPL HS [facility] Stop: 12/06/22 20:59 Last Admin: 11/16/22 20:26 Dose: 1 drops Nitroglycerin (Nitroglycerin Sl 0.4 Mg/Tab Tab) 0.4 mg SL Q5M PRN PRN Reason: Chest Pain Stop: 12/05/22 18:39 Nystatin (Nystatin Powder 15gm Btl) 1 appln EXT TID PRN PRN Reason: irritation Stop: 12/05/22 19:50 Last Admin: 11/07/22 21:52 Dose: 1 appln Pantoprazole Sodium (Pantoprazole 40 Mg Tab) 40 mg PO QAM [facility] Stop: 12/06/22 08:59 Last Admin: 11/17/22 08:53 Dose: 40 mg Potassium Chloride (Potassium Chloride Crtab 20 Meq Tabcr) 60 meq PO TIDM [facility] Stop: 12/17/22 11:59 Last Admin: 11/17/22 11:52 Dose: 60 meq Prednisone (Prednisone 5 Mg Tab) 5 mg PO QAM [facility] Stop: 12/06/22 08:59 Last Admin: 11/17/22 08:50 Dose: 5 mg Spironolactone (Spironolactone 25 Mg Tab) 25 mg PO DAILY [facility] Stop: 12/13/22 07:59 Last Admin: 11/17/22 08:49 Dose: 25 mg Tamsulosin HCl (Tamsulosin Hcl 0.4 Mg Cap) 0.4 mg PO HS [facility] Stop: 12/05/22 20:59 Last Admin: 11/16/22 20:24 Dose: 0.4 mg
[2022-11-17 16:28] LABS: Basophils # (auto) 0.03 K/uL (0-0.2); Basophils % (auto) 0.4 %; Eosinophils # (auto) 0.06 K/uL (0-0.50); Eosinophils % (auto) 0.9 %; Hematocrit (blood only) 35.4 % (37.0-47.0); Hemoglobin 11.1 g/dl (12.0-16.0); Immature Granulocytes # (auto) 0.03 K/uL (0.01-0.20); Immature Granulocytes % (auto) 0.4 %; Lymphocytes # (auto) 0.24 K/uL (1.2-3.4); Lymphocytes % (auto) 3.4 %; Mean Corpuscular Hemoglobin 27.8 pg (25.0-34.0); Mean Corpuscular Hgb Conc 31.4 g/dL (32.0-36.0); Mean Corpuscular Volume 88.7 fL (80.0-100.0); Mean Platelet Volume 12.5 fL (9.4-12.4); Monocytes # (auto) 0.59 K/uL (0.11-0.59); Monocytes % (auto) 8.4 %; Neutrophils # (auto) 6.06 K/uL (1.40-6.50); Neutrophils % (auto) 86.5 %; Platelet Count 51 K/uL (130-400); RDW Coefficient of Variation 17.3 % (11.5-14.5); RDW Standard Deviation 54.9 fL (36.4-46.3); Red Blood Count 3.99 M/uL (4.20-5.40); White Blood Count 7.01 K/ul (4.8-10.8)
[2022-11-17 16:39] LABS: Potassium 4.3 mmol/L (3.5-5.1)
[2022-11-17 16:45] LABS: BUN Creatinine Ratio 39.2 (10-20); Creatinine Clr Calc Pharmacy 68.9 ml/min; Est GFR (African American) 67.6 ml/min; Est GFR (Non-African American) 58.3 ml/min
[2022-11-17] MEDS: CYANOCOBALAMIN (B-12) 500 MCG TABLET PO SCH (21:19)
[2022-11-17] MEDS: TAMSULOSIN HCL 0.4 MG CAP PO SCH (21:20)
[2022-11-17] MEDS: MELATONIN 3 MG TAB PO SCH (21:21)
[2022-11-17] MEDS: HYDROXYCHLOROQUINE SULFATE 200 MG TAB PO SCH (21:21)
[2022-11-17] MEDS: ATORVASTATIN 40 MG TAB PO SCH (21:21)
[2022-11-17] MEDS: LATANOPROST 0.005% OP SOLN 2.5 ML BTL OPB SCH (21:22)
[2022-11-17] MEDS: ACETAMINOPHEN 500 MG TAB PO SCH (21:23)
[2022-11-17] MEDS: NETARSUDIL MESYLATE 37 DROPS/2.5 ML BTL OPL SCH (21:24)
[2022-11-18] MEDS: FUROSEMIDE 100 MG in DEXTROSE 5% 90 ML IV SCH ×10 (00:55→22:39)
[2022-11-18] MEDS: LEVOTHYROXINE SODIUM 125 MCG TABLET PO SCH (05:38)
--- NOTE | 2022-11-18 07:33 | Cardiology Progress Note ---
Date of Service November 18, 2022 Assessment & Plan (1) Acute on chronic combined systolic (congestive) and diastolic (congestive) heart failure: (2) Aortic stenosis: Admission and Anticipated Discharge Date Admission Date: November 05, 2022 Supervising Physician Co-Signing Physician Notes Attending Staff: Pt was seen and evaluated with [facility] staff. 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 Case reviewed Markedly volume overloaded + JVP 18 cmH20 S1 - murmur - Muted S2 Decreased BS at Right base + Abdominal Wall Edema +3 Bilateral LE edema extending to the inguinal folds Pt is making progress with volume Degree of volume overload is severe Plan: Aggressive diuresis Lasix 200 IV x1 Increase Lasix infusion to 40 mg IV/hr (max) Consider Purewik for urine collection MARIXA - OFF Stop Lopressor 12.5 mg po BID Start Toprol XL 12.5 mg po per day; HR 78 BID electrolyte check K+ goal 4.5-5 Continue KCL 60 meq po TID Supplemental K+ as needed to achieve goal Continue Aldactone 25 mg po per day Mag goal >2 STANDING WEIGHT DAILY + Stent Continue ASA 81 mg po per day Continue Plavix 75 mg po per day Continue Lipitor 40 mg po per day LDL (PENDING) Plans [place] [facility] [place] need [place] be Transferred [place] [facility] [place] evaluation and managment of acute on chronic combined heart failure Pt is agreeable to transfer if needed Mobilize patient Dylan Saravia Subjective 11/10/2022 The patient was seen and examined in telemetry unit She has been feeling much better and denies any shortness of breath at rest She still gets shortness of breath with minimal exertion Denies any chest pain and/or palpitation and the leg swelling has been improving 11/11/2022 The patient was seen and examined in telemetry unit She has been feeling a lot better but not yet ready to be discharged Denies any significant symptoms She will get PT and OT evaluation 11/12/2022 The patient was seen and examined in telemetry unit She has been feeling much better She continues to diurese and IV Lasix will be continued Denies any chest pain and/or palpitation or any shortness of breath at rest 11/13/2022 The patient was seen and examined in telemetry unit She has been feeling much better and denies any symptoms at rest Her Lasix will be changed to IV pulse therapy She is out of bed on a chair and remains asymptomatic 11/14/2022 The patient was seen and examined in telemetry unit She has been feeling much better and has been having enough diuresis Denies any symptoms Feels that her abdomen is getting smaller and breathing is getting better 11/15/2022 The patient was seen and examined in telemetry unit She has been feeling better Her blood pressure is on the lower side and is still getting intravenous Lasix infusion Denies any significant symptoms 11/16/2022 The patient was seen and telemetry unit She has been stable feeling a lot better Her legs are getting less swelling and denies any shortness of breath at rest Has had so for about 9 L negative balance 11/17/2022 The patient was seen and examined in telemetry unit She has been feeling a lot better but he still needs to be diuresed Denies any symptoms at rest 11/18/2022 The patient was seen and examined in telemetry unit She has been feeling a lot better but he still needs to be diuresed- down about 12 L and remains markedly volume overloaded. Sitting up in chair. Denies any symptoms at rest. Renal function stable. 3.5 Liters out; weights are suspect Review of Systems Review of Systems: All systems reviewed & are unremarkable except as noted in HPI & below Physical Exam Physical Exam: General: Alert, no distress, well nourished, well developed, comfortable and cooperative HENT: Normocephalic. Atraumatic. Neck: + JVD. - 14 cmH20 Heart: Distant heart sounds. Regular at 76 bpm. Grade II/ systolic murmur. Lungs: Decreased at the bases. Bibasilar rales. No wheeze. Abdomen: +BS. Distended. Nontender. No masses. Abdominal wall edema Extremities: 2+ pitting edema, diffuse. No clubbing. No cyanosis Skin: chronic venous changes Limited neurological examination: No focal deficit. Results & Data Vital Signs (Past 12 Hours) Vital Signs Temp Pulse Pulse Resp BP BP Pulse Ox 11/18/22 07:13 36.4 C L 78 16 119/75 100 11/18/22 00:00 65 11/18/22 03:18 36.4 C L 77 18 104/61 100 11/17/22 21:30 11/18/22 00:14 36.5 C 81 18 105/67 100 O2 Del Method O2 Flow Rate 11/18/22 07:13 Nasal Cannula 2.0 11/18/22 00:00 11/18/22 03:18 Nasal Cannula 2.0 11/17/22 21:30 Nasal Cannula 2 11/18/22 00:14 Nasal Cannula 2.0 Laboratory Results CBC 11/17/22 Range/Units 15:38 WBC 7.01 (4.8-10.8) K/ul RBC 3.99 L (4.20-5.40) M/uL Hgb 11.1 L (12.0-16.0) g/dl Hct 35.4 L (37.0-47.0) % Plt Count 51 L (130-400) K/uL Neut # (Auto) 6.06 (1.40-6.50) K/uL Lymph # (Auto) 0.24 L (1.2-3.4) K/uL [place] # (Auto) 0.59 (0.11-0.59) K/uL Eos # (Auto) 0.06 (0-0.50) K/uL Baso # (Auto) 0.03 (0-0.2) K/uL Comprehensive Metabolic Panel 11/17/22 11/17/22 Range/Units 06:02 15:38 Sodium 142 138 (136-145) mmol/L Potassium 3.7 4.3 (3.5-5.1) mmol/L Chloride 100 99 (98-107) mmol/L Carbon Dioxide 32 32 (21-32) mmol/L BUN 38 H 38 H (6-23) mg/dl Creatinine 1.01 0.97 (0.6-1.2) mg/dl Glucose 86 203 H (70-99(Fasting)) mg/dl Calcium 9.1 9.0 (8.6-10.3) mg/dl Intake and Output 11/17/22 11/18/22 11/18/22 22:59 06:59 14:59 Intake Total 230 / 884 200 / 884 Output Total 1326 / 3477 1050 / 3477 Balance -1096 / -2593 -850 / -2593 Intake: IV 230 / 644 200 / 644 Furosemide 100 mg In Dextrose 5 230 / 624 200 / 624 % 90 ml @ 30 MG/HR 30 mls/hr IV .Q3H20M [facility] Rx#:[id number] Output: Urine Amount (Catheter) 1325 / 3475 1050 / 3475 Red/Indwelling 1325 / 3475 1050 / 3475 # Bowel Movements 1 / 2 Other: Other Intake Source SIPS Weight 127.7 kg 127.3 kg Weight Measurement Method Standing Scale Medications Administered Current Inpatient Medications Acetaminophen (Acetaminophen 325 Mg Tab) 650 mg PO Q4H PRN PRN Reason: Pain or Fever Stop: 12/05/22 18:39 Last Admin: 11/06/22 08:40 Dose: 650 mg Acetaminophen (Acetaminophen 500 Mg Tab) 1,000 mg PO HS [facility] Stop: 12/05/22 20:59 Last Admin: 11/17/22 21:23 Dose: 1,000 mg Al Hydrox/Mg Hydrox/Simethicone (Aluminum/Magnesium/Simeth (Maalox Max) 30 Ml Udc) 30 ml PO Q6H PRN PRN Reason: Heartburn Stop: 12/13/22 19:30 Last Admin: 11/17/22 09:14 Dose: 30 ml Lipase/Protease/Amylase (Pancreaze (Lipase 10,500u) Cap) 2 cap PO QIDM [facility] Stop: 12/05/22 20:59 Last Admin: 11/17/22 21:19 Dose: 2 cap Lipase/Protease/Amylase (Pancreaze (Lipase 4,200u) Cap) 1 cap PO QIDM [facility] Stop: 12/05/22 20:59 Last Admin: 11/17/22 21:25 Dose: 1 cap Ascorbic Acid (Ascorbic Acid 500 Mg Tab) 500 mg PO QAM [facility] Stop: 12/06/22 08:59 Last Admin: 11/17/22 08:52 Dose: 500 mg Aspirin (Aspirin 81 Mg Ectab) 81 mg PO QAM [facility] Stop: 12/06/22 08:59 Last Admin: 11/17/22 08:53 Dose: 81 mg Atorvastatin Calcium (Atorvastatin 40 Mg Tab) 40 mg PO HS [facility] Stop: 12/05/22 20:59 Last Admin: 11/17/22 21:21 Dose: 40 mg Betaxolol HCl (Betaxolol Hcl 0.5% Op 5 Ml Btl) 1 drops OPL AMHS [facility] Stop: 12/05/22 20:59 Last Admin: 11/17/22 21:18 Dose: 1 drops Brimonidine Tartrate (Brimonidine Tartrate 0.2% 5ml) 1 drops OPL BID [facility] Stop: 12/05/22 20:59 Last Admin: 11/17/22 21:20 Dose: 1 drops Calcium Carbonate (Calcium Carbonate 500 Mg Chewable Tab) 500 mg PO QID PRN PRN Reason: Indigestion Stop: 12/09/22 18:41 Clopidogrel Bisulfate (Clopidogrel Bisulfate 75 Mg Tab) 75 mg PO QAM [facility] Stop: 12/06/22 08:59 Last Admin: 11/17/22 08:53 Dose: 75 mg Clotrimazole (Clotrimazole 1% Cr 15 Gm Tube) 1 appln EXT BID [facility] Stop: 11/19/22 20:59 Last Admin: 11/17/22 21:26 Dose: 1 appln Cyanocobalamin (Cyanocobalamin (B-12) 500 Mcg Tablet) 1,500 mcg PO QPM [facility] Stop: 12/05/22 20:59 Last Admin: 11/17/22 21:19 Dose: 1,500 mcg Dextrose (Dextrose 50% 50 Ml Syringe) 25 - 50 ml IV UD PRN; Protocol PRN Reason: Hypoglycemia Protocol Stop: 12/05/22 17:38 Enoxaparin Sodium (Enoxaparin Inj 40 Mg/0.4 Ml Syr) 40 mg SQ QAM [facility] Stop: 12/06/22 08:59 Last Admin: 11/17/22 08:48 Dose: 40 mg Erythromycin (Erythromycin Op Oint 5 Mg/Gm 3.5 Gm Tube) 1 appln OP QID [facility] Stop: 11/25/22 21:44 Last Admin: 11/17/22 21:26 Dose: 1 appln Ferrous Sulfate (Ferrous Sulfate 325 Mg Tab) 325 mg PO DAILY [facility] Stop: 12/06/22 08:59 Last Admin: 11/17/22 08:52 Dose: 325 mg Fluticasone Propionate (Fluticasone Propionate Na Spr 16 Gm Btl) 2 sprays NA QAM [facility] Stop: 12/06/22 08:59 Last Admin: 11/17/22 08:48 Dose: 2 sprays Folic Acid (Folic Acid 1 Mg Tab) 1 mg PO QAM [facility] Stop: 12/06/22 08:59 Last Admin: 11/17/22 08:53 Dose: 1 mg Gabapentin (Gabapentin 400 Mg Cap) 400 mg PO TID [facility] Stop: 12/05/22 20:59 Last Admin: 11/17/22 21:20 Dose: 400 mg Glucagon (Glucagon For Inj 1 Mg Vial) 1 mg SQ UD PRN; Protocol PRN Reason: Hypoglycemia Protocol Stop: 12/05/22 17:38 Glucose (Glucose 10 Tab/Tube) 4 - 8 tab PO UD PRN; Protocol PRN Reason: Hypoglycemia Treatment Stop: 12/05/22 17:38 Glucose (Glucose 40% Gel 15 Gm Tube) 15 - 30 gm PO UD PRN; Protocol PRN Reason: Hypoglycemia Protocol Stop: 12/05/22 17:38 Hydroxychloroquine Sulfate (Hydroxychloroquine Sulfate 200 Mg Tab) 400 mg PO HS [facility] Stop: 12/05/22 20:59 Last Admin: 11/17/22 21:21 Dose: 400 mg Furosemide 100 mg/ Dextrose 100 mls @ 30 mls/hr IV .Q3H20M [facility] Stop: 12/13/22 10:29 Last Admin: 11/18/22 04:23 Dose: 30 mg/hr, 30 mls/hr Promethazine HCl 12.5 mg/ (Sodium Chloride) 50.5 mls @ 202 mls/hr IV Q6H PRN PRN Reason: Nausea And Vomiting Stop: 12/15/22 00:06 Last Infusion: 11/15/22 02:00 Dose: Infused Insulin Aspart (Insulin Aspart Per Unit Charge) 0 units SC ACHS [facility] Stop: 12/05/22 20:59 Last Admin: 11/17/22 21:32 Dose: 3 units Insulin Glargine (Lantus Per Unit Charge) 10 units SQ BID [facility] Stop: 12/11/22 20:59 Last Admin: 11/17/22 21:32 Dose: 10 units Lactobacillus Acidophilus (Advanced Probiotic 1250 Mg Capsule) 1 cap PO QAM [facility] Stop: 12/06/22 08:59 Last Admin: 11/17/22 08:53 Dose: 1 cap Latanoprost (Latanoprost 0.005% Op Soln 2.5 Ml Btl) 1 drops OPB HS [facility] Stop: 12/05/22 20:59 Last Admin: 11/17/22 21:22 Dose: 1 drops Levothyroxine Sodium (Levothyroxine Sodium 125 Mcg Tablet) 125 mcg PO DAILYBB [facility] Stop: 12/06/22 06:29 Last Admin: 11/18/22 05:38 Dose: 125 mcg Loperamide HCl (Loperamide Hcl 2 Mg Cap) 2 mg PO Q3H PRN PRN Reason: Diarrhea Stop: 12/13/22 09:45 Last Admin: 11/15/22 17:19 Dose: 2 mg Lorazepam (Lorazepam 0.5 Mg Tab) 0.5 mg PO TID PRN PRN Reason: Anxiety Stop: 12/05/22 19:50 Last Admin: 11/16/22 23:25 Dose: 0.5 mg Magnesium Oxide (Magnesium Oxide 400 Mg Tab) 400 mg PO BID [facility] Stop: 12/06/22 20:59 Last Admin: 11/17/22 21:21 Dose: 400 mg Melatonin (Melatonin 3 Mg Tab) 6 mg PO HS [facility] Stop: 12/05/22 20:59 Last Admin: 11/17/22 21:21 Dose: 6 mg Menthol (Cough Drop (Sugar Free) Rob 24 Rob/1 Box) 1 rob BUCCAL TID PRN PRN Reason: Sore Throat Stop: 12/11/22 22:49 Last Admin: 11/11/22 23:23 Dose: 1 rob Metoprolol Succinate (Metoprolol Succ 25mg Ext Rel Tab) 12.5 mg PO QAM [facility] Stop: 12/18/22 08:59 Miscellaneous (Carbohydrates For Hypoglycemia ) 15 - 30 gm PO UD PRN PRN Reason: Hypoglycemia Protocol Stop: 12/05/22 17:38 Multivitamins/Minerals (Cerovite Adv Formula Tab) 1 tab PO QAM [facility] Stop: 12/06/22 08:59 Last Admin: 11/17/22 08:49 Dose: 1 tab Netarsudil (Netarsudil Mesylate 37 Drops/2.5 Ml Btl) 1 drops OPL HS [facility] Stop: 12/06/22 20:59 Last Admin: 11/17/22 21:24 Dose: 1 drops Nitroglycerin (Nitroglycerin Sl 0.4 Mg/Tab Tab) 0.4 mg SL Q5M PRN PRN Reason: Chest Pain Stop: 12/05/22 18:39 Nystatin (Nystatin Powder 15gm Btl) 1 appln EXT TID PRN PRN Reason: irritation Stop: 12/05/22 19:50 Last Admin: 11/07/22 21:52 Dose: 1 appln Pantoprazole Sodium (Pantoprazole 40 Mg Tab) 40 mg PO QAM [facility] Stop: 12/06/22 08:59 Last Admin: 11/17/22 08:53 Dose: 40 mg Potassium Chloride (Potassium Chloride Crtab 20 Meq Tabcr) 60 meq PO TIDM [facility] Stop: 12/17/22 11:59 Last Admin: 11/17/22 17:42 Dose: 60 meq Prednisone (Pred[facility]one 5 Mg Tab) [facility] [place]: 12/06/22 08:59 Last Admin: 11/17/22 08:50 Dose: 5 mg Spironolactone (Spironolactone 25 Mg Tab) 25 mg PO DAILY [facility] Stop: 12/13/22 07:59 Last Admin: 11/17/22 08:49 Dose: 25 mg Tamsulosin HCl (Tamsulosin Hcl 0.4 Mg Cap) 0.4 mg PO [facility] Stop: 12/05/22 20:59 Last Admin: 11/17/22 21:20 Dose: 0.4 mg
[2022-11-18] MEDS: LANTUS PER UNIT CHARGE SQ SCH ×2 (07:53→21:35)
[2022-11-18] MEDS: INSULIN ASPART PER UNIT CHARGE SC SCH ×4 (07:53→21:36)
[2022-11-18 08:53] LABS: BUN Creatinine Ratio 35.4 (10-20); Calcium 9.3 mg/dl (8.6-10.3); Creatinine Clr Calc Pharmacy 69.4 ml/min; Est GFR (African American) 68.5 ml/min; Est GFR (Non-African American) 59.1 ml/min; Potassium 4.2 mmol/L (3.5-5.1)
[2022-11-18] MEDS: CEROVITE ADV FORMULA TAB PO SCH (09:04)
[2022-11-18] MEDS: ASPIRIN 81 MG ECTAB PO SCH (09:04)
[2022-11-18] MEDS: ADVANCED PROBIOTIC 1250 MG CAPSULE PO SCH (09:04)
[2022-11-18] MEDS: POTASSIUM CHLORIDE CRTAB 20 MEQ TABCR PO SCH ×3 (09:04→17:32)
[2022-11-18] MEDS: SPIRONOLACTONE 25 MG TAB PO SCH (09:04)
[2022-11-18] MEDS: FOLIC ACID 1 MG TAB PO SCH (09:04)
[2022-11-18] MEDS: CLOPIDOGREL BISULFATE 75 MG TAB PO SCH (09:04)
[2022-11-18] MEDS: PANCREAZE (LIPASE 4,200U) CAP PO SCH ×4 (09:05→21:19)
[2022-11-18] MEDS: GABAPENTIN 400 MG CAP PO SCH ×3 (09:05→21:18)
[2022-11-18] MEDS: MAGNESIUM OXIDE 400 MG TAB PO SCH ×2 (09:05→21:19)
[2022-11-18] MEDS: PANTOprazole 40 MG TAB PO SCH (09:05)
[2022-11-18] MEDS: predniSONE 5 MG TAB PO SCH (09:05)
[2022-11-18] MEDS: PANCREAZE (LIPASE 10,500U) CAP PO SCH ×4 (09:05→21:17)
[2022-11-18] MEDS: ASCORBIC ACID 500 MG TAB PO SCH (09:05)
[2022-11-18] MEDS: ERYTHROMYCIN OP OINT 5 MG/GM 3.5 GM TUBE OP SCH ×4 (09:06→21:16)
[2022-11-18] MEDS: FLUTICASONE PROPIONATE NA SPR 16 GM BTL SCH (09:06)
[2022-11-18] MEDS: ENOXAPARIN INJ 40 MG/0.4 ML SYR SQ SCH (09:06)
[2022-11-18] MEDS: CLOTRIMAZOLE 1% CR 15 GM TUBE EXT SCH ×2 (09:07→21:22)
[2022-11-18] MEDS: BRIMONIDINE TARTRATE 0.2% 5ML OPL SCH ×2 (09:07→21:21)
[2022-11-18] MEDS: METOPROLOL SUCC 25MG EXT REL TAB PO SCH (09:08)
[2022-11-18] MEDS: BETAXOLOL HCL 0.5% OPL SCH ×2 (09:08→21:21)
[2022-11-18] MEDS: FERROUS SULFATE 325 MG TAB PO SCH (09:09)
--- NOTE | 2022-11-18 09:26 | Hospitalist Progress Note ---
Date of Service November 18, 2022 Assessment & Plan (1) Acute on chronic combined systolic (congestive) and diastolic (congestive) heart failure: Plan: 72 y/o with a complicated medical history including combined systolic and diastolic heart failure, CAD s/p PCI with WALTER, aortic stenosis (suspected severe), tachy-wilfrido syndrome s/p PPM in 2021, persistent afib since 07/01, bilateral carotid bruits, insulin-requiring DM, blindness, rheumatoid arthritis, chronic prednisone use, LAQUITA on CPAP, CKD3a, hypothyroidism, HTN, open-angle glaucoma, and recurrent liver cancer s/p recent placement of radiation beads. Presented with progressive shortness of breath over 5 weeks which did not improve even with increasing diuretics Her leg edema has been seeping liquid constantly Started with Lasix 40mg IV BID--> increased to lasix 60mg BID 11/08 40lb over ideal weight Lasix was then increased to 80 mg IV twice daily and added spironolactone 12.5 mg daily with supplemental potassium as needed Intravenous Lasix pushes were changed to a Lasix drip and this is ongoing with increase to drip and additional Lasix IV boluses intermittently cont to monitor strict I/Os, monitordaily standing weight, low salt diet, daily BMP. (2) Aortic stenosis: Plan: TAVR indicated, cardiology considering inpatient transfer to [facility] [place]. (3) Acquired thrombocytopenia: Plan: Worsening platelets to 51 K today. No evidence of bleeding. Lovenox and checking for any platelet antibodies. (4) Cellulitis of right leg: Plan: Completed linezolid course as above. (5) Venous stasis ulcers: Plan: She has chronic LE wounds for which she is following with wound care but she has been told that until the fluid overload is improved, her wounds will be unlikely to heal. some superficial Right leg cellulitis with extensive antibiotic allergy noted. Treated with a 7 day course of linezolid Dressing as per wound care which are currently in place. Advised to keep the legs elevated while in bed (6) Tinea corporis: Plan: Rash on left knee seems most consistent with tinea corporis - Started clotrimazole 1% cream BID for a 14 days course -this is almost resolved. (7) Chronic kidney disease, stage 3: Plan: Chronic, stable despite aggressive diuresis. Trend BMP daily. (8) Diabetes mellitus, type 2: Plan: Chronic, stable. Continue basal bolus insulin. Currently euglycemic. Will update A1c. (9) Hypothyroidism: Plan: Chronic, stable. Continue thyroid replacement as ordered (10) Sleep apnea: Plan: Reports insomnia is somewhat associated with not having her home mask. Attempting to get home CPAP mask as she was frustrated with the poor fit of the hospital mask. Son should be bringing this after work today. (11) Rheumatoid arthritis: Plan: chronic, stable. Methotrexate currently on hold due to leg wounds - will continue prednisone and plaquenil Remains free from any significant arthritic pain (12) Iron deficiency anemia: Plan: chronic, stable. Cont current therapy. (13) Hepatocellular carcinoma: Plan: chronic, OP follow up (14) Morbid obesity: Plan: Lifestyle changes recommended, BMI 48. (15) Blindness: Plan: Assist with ADLs and IADLs as needed. Code status: Full code but no prolonged heroic measures. Son is her POA DVT Prophylaxis: held in setting of worsening thrombocytopenia. Disposition-- Evaluated by PT/OT, rehab recommended with plans for [facility], however, Cardiology considering inpatient transfer for TAVR. Yola Webb DO [facility] Hospitalist Admission and Anticipated Discharge Date Admission Date: November 05, 2022 Subjective 72-year-old female admitted for acute on chronic combined systolic diastolic heart failure secondary to severe aortic stenosis. She continues to be hypervolemic with abdominal wall edema and bilateral lower extremity pitting edema to the thighs. Per cardiology she is making progress with diuresis efforts. She overall feels fatigued and reports a lack of sleep in recent days given she does not have her correct CPAP mask. We discussed the logistics on getting that mask from home which she would be more comfortable with. Outside of that we discussed the possible transfer to [facility] for TAVR. I reassured her that we will support the transfer depending on the decision from she and cardiology. Denies chest pain or additional shortness of breath today. Review of Systems Review of Systems: All systems reviewed negative except as indicated above. Physical Exam Physical Exam: CONSTITUTIONAL: morbidly obese, vitals as above, generally well-appearing, NAD EYES: eyes closed, low vision patient. ENT: external ear and nose normal, MMM NECK: trachea midline RESPIRATORY: clear to auscultation bilaterally, no crackles, rales or wheezes, normal respiratory effort CARDIOVASCULAR: regular rate and rhythm, 3/6 MILES throughout precordium, no gallops or rubs, no JVD, 3+ pitting edema to thighs bilaterally. CHEST: inspection of chest was normal GASTROINTESTINAL: soft, nontender, ND, protuberant, no guarding MUSCULOSKELETAL: moves extremities equally, generalized weakness, head is normocephalic and atraumatic SKIN: warm and dry NEUROLOGIC: CN 2-12 grossly intact, no sensory deficit, normal cognition, normal speech, no tremor PSYCHIATRIC: alert cooperative and oriented to person, place and time. Euthymic mood, makes good eye contact, language grossly intact, recent and remote memory grossly intact. Results & Data Results & Data Vital Signs (Past 12 Hours) Vital Signs Temp Pulse Pulse Resp BP BP Pulse Ox 11/18/22 07:13 36.4 C L 78 16 119/75 100 11/18/22 00:00 65 11/18/22 03:18 36.4 C L 77 18 104/61 100 11/17/22 21:30 11/18/22 00:14 36.5 C 81 18 105/67 100 O2 Del Method O2 Flow Rate 11/18/22 07:13 Nasal Cannula 2.0 11/18/22 00:00 11/18/22 03:18 Nasal Cannula 2.0 11/17/22 21:30 Nasal Cannula 2 11/18/22 00:14 Nasal Cannula 2.0 Laboratory Results Short CBC 11/17/22 Range/Units 15:38 WBC 7.01 (4.8-10.8) K/ul Hgb 11.1 L (12.0-16.0) g/dl Hct 35.4 L (37.0-47.0) % Plt Count 51 L (130-400) K/uL BMP 11/17/22 11/18/22 15:38 08:12 Sodium 138 141 Potassium 4.3 4.2 Chloride 99 100 Carbon Dioxide 32 37 H BUN 38 H 34 H Creatinine 0.97 0.96 Glucose 203 H 148 H Calcium 9.0 9.3 Medications Administered Current Inpatient Medications Acetaminophen (Acetaminophen 325 Mg Tab) 650 mg PO Q4H PRN PRN Reason: Pain or Fever Stop: 12/05/22 18:39 Last Admin: 11/06/22 08:40 Dose: 650 mg Acetaminophen (Acetaminophen 500 Mg Tab) 1,000 mg PO HS [facility] Stop: 12/05/22 20:59 Last Admin: 11/17/22 21:23 Dose: 1,000 mg Al Hydrox/Mg Hydrox/Simethicone (Aluminum/Magnesium/Simeth (Maalox Max) 30 Ml Udc) 30 ml PO Q6H PRN PRN Reason: Heartburn Stop: 12/13/22 19:30 Last Admin: 11/17/22 09:14 Dose: 30 ml Lipase/Protease/Amylase (Pancreaze (Lipase 10,500u) Cap) 2 cap PO QIDM [facility] Stop: 12/05/22 20:59 Last Admin: 11/18/22 09:05 Dose: 2 cap Lipase/Protease/Amylase (Pancreaze (Lipase 4,200u) Cap) 1 cap PO QIDM [facility] Stop: 12/05/22 20:59 Last Admin: 11/18/22 09:05 Dose: 1 cap Ascorbic Acid (Ascorbic Acid 500 Mg Tab) 500 mg PO QAM [facility] Stop: 12/06/22 08:59 Last Admin: 11/18/22 09:05 Dose: 500 mg Aspirin (Aspirin 81 Mg Ectab) [facility] [place]: 12/06/22 08:59 Last Admin: 11/18/22 09:04 Dose: 81 mg Atorvastatin Calcium (Atorvastatin 40 Mg Tab) 40 mg PO HS [facility] Stop: 12/05/22 20:59 Last Admin: 11/17/22 21:21 Dose: 40 mg Betaxolol HCl (Betaxolol Hcl 0.5% Op 5 Ml Btl) 1 drops OPL AMHS [facility] Stop: 12/05/22 20:59 Last Admin: 11/18/22 09:08 Dose: 1 drops Brimonidine Tartrate (Brimonidine Tartrate 0.2% 5ml) 1 drops OPL BID [facility] Stop: 12/05/22 20:59 Last Admin: 11/18/22 09:07 Dose: 1 drops Calcium Carbonate (Calcium Carbonate 500 Mg Chewable Tab) 500 mg PO QID PRN PRN Reason: Indigestion Stop: 12/09/22 18:41 Clopidogrel Bisulfate (Clopidogrel Bisulfate 75 Mg Tab) 75 mg PO QAM [facility] Stop: 12/06/22 08:59 Last Admin: 11/18/22 09:04 Dose: 75 mg Clotrimazole (Clotrimazole 1% Cr 15 Gm Tube) 1 appln EXT BID [facility] Stop: 11/19/22 20:59 Last Admin: 11/18/22 09:07 Dose: 1 appln Cyanocobalamin (Cyanocobalamin (B-12) 500 Mcg Tablet) 1,500 mcg PO QPM [facility] Stop: 12/05/22 20:59 Last Admin: 11/17/22 21:19 Dose: 1,500 mcg Dextrose (Dextrose 50% 50 Ml Syringe) 25 - 50 ml IV UD PRN; Protocol PRN Reason: Hypoglycemia Protocol Stop: 12/05/22 17:38 Enoxaparin Sodium (Enoxaparin Inj 40 Mg/0.4 Ml Syr) 40 mg SQ QAM [facility] Stop: 12/06/22 08:59 Last Admin: 11/18/22 09:06 Dose: 40 mg Erythromycin (Erythromycin Op Oint 5 Mg/Gm 3.5 Gm Tube) 1 appln OP QID [facility] Stop: 11/25/22 21:44 Last Admin: 11/18/22 09:06 Dose: 1 appln Ferrous Sulfate (Ferrous Sulfate 325 Mg Tab) 325 mg PO DAILY [facility] Stop: 12/06/22 08:59 Last Admin: 11/18/22 09:09 Dose: 325 mg Fluticasone Propionate (Fluticasone Propionate Na Spr 16 Gm Btl) 2 sprays NA QAM [facility] Stop: 12/06/22 08:59 Last Admin: 11/18/22 09:06 Dose: 2 sprays Folic Acid (Folic Acid 1 Mg Tab) 1 mg PO QAM [facility] Stop: 12/06/22 08:59 Last Admin: 11/18/22 09:04 Dose: 1 mg Gabapentin (Gabapentin 400 Mg Cap) 400 mg PO TID [facility] Stop: 12/05/22 20:59 Last Admin: 11/18/22 09:05 Dose: 400 mg Glucagon (Glucagon For Inj 1 Mg Vial) 1 mg SQ UD PRN; Protocol PRN Reason: Hypoglycemia Protocol Stop: 12/05/22 17:38 Glucose (Glucose 10 Tab/Tube) 4 - 8 tab PO UD PRN; Protocol PRN Reason: Hypoglycemia Treatment Stop: 12/05/22 17:38 Glucose (Glucose 40% Gel 15 Gm Tube) 15 - 30 gm PO UD PRN; Protocol PRN Reason: Hypoglycemia Protocol Stop: 12/05/22 17:38 Hydroxychloroquine Sulfate (Hydroxychloroquine Sulfate 200 Mg Tab) 400 mg PO HS [facility] Stop: 12/05/22 20:59 Last Admin: 11/17/22 21:21 Dose: 400 mg Furosemide 100 mg/ Dextrose 100 mls @ 30 mls/hr IV .Q3H20M [facility] Stop: 12/13/22 10:29 Last Admin: 11/18/22 07:53 Dose: 30 mg/hr, 30 mls/hr Promethazine HCl 12.5 mg/ (Sodium Chloride) 50.5 mls @ 202 mls/hr IV Q6H PRN PRN Reason: Nausea And Vomiting Stop: 12/15/22 00:06 Last Infusion: 11/15/22 02:00 Dose: Infused Insulin Aspart (Insulin Aspart Per Unit Charge) 0 units SC ACHS [facility] Stop: 12/05/22 20:59 Last Admin: 11/18/22 07:53 Dose: 9 units Insulin Glargine (Lantus Per Unit Charge) 10 units SQ BID [facility] Stop: 12/11/22 20:59 Last Admin: 11/18/22 07:53 Dose: 10 units Lactobacillus Acidophilus (Advanced Probiotic 1250 Mg Capsule) 1 cap PO QAM [facility] Stop: 12/06/22 08:59 Last Admin: 11/18/22 09:04 Dose: 1 cap Latanoprost (Latanoprost 0.005% Op Soln 2.5 Ml Btl) 1 drops OPB [facility] Stop: 12/05/22 20:59 Last Admin: 11/17/22 21:22 Dose: 1 drops Levothyroxine Sodium (Levothyroxine Sodium 125 Mcg Tablet) 125 mcg PO DAILYBB [facility] Stop: 12/06/22 06:29 Last Admin: 11/18/22 05:38 Dose: 125 mcg Loperamide HCl (Loperamide Hcl 2 Mg Cap) 2 mg PO Q3H PRN PRN Reason: Diarrhea Stop: 12/13/22 09:45 Last Admin: 11/15/22 17:19 Dose: 2 mg Lorazepam (Lorazepam 0.5 Mg Tab) 0.5 mg PO TID PRN PRN Reason: Anxiety Stop: 12/05/22 19:50 Last Admin: 11/16/22 23:25 Dose: 0.5 mg Magnesium Oxide (Magnesium Oxide 400 Mg Tab) 400 mg PO BID [facility] Stop: 12/06/22 20:59 Last Admin: 11/18/22 09:05 Dose: 400 mg Melatonin (Melatonin 3 Mg Tab) 6 mg PO HS [facility] Stop: 12/05/22 20:59 Last Admin: 11/17/22 21:21 Dose: 6 mg Menthol (Cough Drop (Sugar Free) Rob 24 Rob/1 Box) 1 rob BUCCAL TID PRN PRN Reason: Sore Throat Stop: 12/11/22 22:49 Last Admin: 11/11/22 23:23 Dose: 1 rob Metoprolol Succinate (Metoprolol Succ 25mg Ext Rel Tab) 12.5 mg PO QAM [facility] Stop: 12/18/22 08:59 Last Admin: 11/18/22 09:08 Dose: 12.5 mg Miscellaneous (Carbohydrates For Hypoglycemia ) 15 - 30 gm PO UD PRN PRN Reason: Hypoglycemia Protocol Stop: 12/05/22 17:38 Multivitamins/Minerals (Cerovite Adv Formula Tab) 1 tab PO QAM [facility] Stop: 12/06/22 08:59 Last Admin: 11/18/22 09:04 Dose: 1 tab Netarsudil (Netarsudil Mesylate 37 Drops/2.5 Ml Btl) 1 drops OPL [facility] Stop: 12/06/22 20:59 Last Admin: 11/17/22 21:24 Dose: 1 drops Nitroglycerin (Nitroglycerin Sl 0.4 Mg/Tab Tab) 0.4 mg SL Q5M PRN PRN Reason: Chest Pain Stop: 12/05/22 18:39 Nystatin (Nystatin Powder 15gm Btl) 1 appln EXT TID PRN PRN Reason: irritation Stop: 12/05/22 19:50 Last Admin: 11/07/22 21:52 Dose: 1 appln Pantoprazole Sodium (Pantoprazole 40 Mg Tab) 40 mg PO QAM [facility] Stop: 12/06/22 08:59 Last Admin: 11/18/22 09:05 Dose: 40 mg Potassium Chloride (Potassium Chloride Crtab 20 Meq Tabcr) 60 meq PO TIDM [facility] Stop: 12/17/22 11:59 Last Admin: 11/18/22 09:04 Dose: 60 meq Prednisone (Prednisone 5 Mg Tab) 5 mg PO QAM [facility] Stop: 12/06/22 08:59 Last Admin: 11/18/22 09:05 Dose: 5 mg Spironolactone (Spironolactone 25 Mg Tab) 25 mg PO DAILY [facility] Stop: 12/13/22 07:59 Last Admin: 11/18/22 09:04 Dose: 25 mg Tamsulosin HCl (Tamsulosin Hcl 0.4 Mg Cap) 0.4 mg PO HS [facility] Stop: 12/05/22 20:59 Last Admin: 11/17/22 21:20 Dose: 0.4 mg
[2022-11-18] MEDS ORDERED: FUROSEMIDE 10 MG/ML 10 ML VIAL IV ONE (11:45)
[2022-11-18] MEDS ORDERED: FUROSEMIDE IV SCH (11:45)
[2022-11-18 17:11] LABS: BUN Creatinine Ratio 35.7 (10-20); Calcium 9.3 mg/dl (8.6-10.3); Est GFR (African American) 66.8 ml/min; Est GFR (Non-African American) 57.6 ml/min; Potassium 4.8 mmol/L (3.5-5.1)
[2022-11-18] MEDS: ACETAMINOPHEN 500 MG TAB PO SCH (21:15)
[2022-11-18] MEDS: TAMSULOSIN HCL 0.4 MG CAP PO SCH (21:19)
[2022-11-18] MEDS: ATORVASTATIN 40 MG TAB PO SCH (21:19)
[2022-11-18] MEDS: CYANOCOBALAMIN (B-12) 500 MCG TABLET PO SCH (21:19)
[2022-11-18] MEDS: LATANOPROST 0.005% OP SOLN 2.5 ML BTL OPB SCH (21:20)
[2022-11-18] MEDS: HYDROXYCHLOROQUINE SULFATE 200 MG TAB PO SCH (21:20)
[2022-11-18] MEDS: NETARSUDIL MESYLATE 37 DROPS/2.5 ML BTL OPL SCH (21:20)
[2022-11-18] MEDS: ALUMINUM/MAGNESIUM/SIMETH (MAALOX MAX) 30 ML UDC PO PRN (21:47)
[2022-11-18] MEDS: LORazepam 0.5 MG TAB PO PRN (23:24)
[2022-11-18] MEDS: MELATONIN 3 MG TAB PO SCH (23:24)
[2022-11-19] MEDS: FUROSEMIDE 100 MG in DEXTROSE 5% 90 ML IV SCH ×8 (02:09→21:27)
[2022-11-19] MEDS: LEVOTHYROXINE SODIUM 125 MCG TABLET PO SCH (06:22)
[2022-11-19 06:28] LABS: BUN Creatinine Ratio 32.4 (10-20); Calcium 9.2 mg/dl (8.6-10.3); Creatinine Clr Calc Pharmacy 65.4 ml/min; Est GFR (African American) 63.6 ml/min; Est GFR (Non-African American) 54.9 ml/min; Magnesium 2.1 mg/dl (1.7-2.4)
[2022-11-19 07:18] LABS: Estimated Average Glucose 169 mg/dl; Hemoglobin A1C 7.5 % (4.5-5.6)
--- NOTE | 2022-11-19 07:43 | Cardiology Progress Note ---
Date of Service November 19, 2022 Assessment & Plan (1) Acute on chronic combined systolic (congestive) and diastolic (congestive) heart failure: (2) Aortic stenosis: Admission and Anticipated Discharge Date Admission Date: November 05, 2022 Supervising Physician Co-Signing Physician Notes Attending Staff: Pt was seen and evaluated with [facility] staff. 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 Case reviewed Markedly volume overloaded + JVP 18 cmH20 S1 - murmur - Muted S2 Decreased BS at Right base + Abdominal Wall Edema +3 Bilateral LE edema extending to the inguinal folds Pt is making progress with volume Degree of volume overload is severe Plan: Aggressive diuresis Zaroxolyn 5 mg po X 1 Lasix 200 IV x1 Continue Lasix infusion to 40 mg IV/hr (max) Consider Purewik for urine collection MARIXA - OFF Continue Toprol XL 12.5 mg po per day; HR 78 BID electrolyte check K+ goal 4.5-5 KCL 60 meq po TID Check PM electrolytes Supplemental K+ as needed to achieve goal Continue Aldactone 25 mg po per day Mag goal >2 STANDING WEIGHT DAILY + Stent Continue ASA 81 mg po per day Continue Plavix 75 mg po per day Continue Lipitor 40 mg po per day LDL (PENDING) Plans for [place]R evaluation [place] [facility] [place] Pt may need to be Transferred [place] [facility] [place] further evaluation and management of acute on chronic combined heart failure Pt is agreeable to transfer if needed Mobilize patient Dylan Saravia Subjective Events overnight: Review of Systems Review of Systems: All systems reviewed & are unremarkable except as noted in HPI & below Physical Exam Physical Exam: General: Alert, no distress, well nourished, well developed, comfortable and cooperative HENT: Normocephalic. Atraumatic. Neck: + JVD. - 16 cmH20 Heart: Distant heart sounds. Regular at 76 bpm. Grade II/ systolic murmur. Lungs: Decreased at the bases. Bibasilar rales. No wheeze. Abdomen: +BS. Distended. Nontender. No masses. Abdominal wall edema Extremities: 2+ pitting edema, diffuse. No clubbing. No cyanosis Skin: chronic venous changes Limited neurological examination: No focal deficit. Results & Data Vital Signs (Past 12 Hours) Vital Signs Temp Pulse Pulse Resp BP Pulse Ox O2 Del Method 11/19/22 07:13 36.8 C 85 16 109/60 100 Nasal Cannula 11/19/22 03:08 36.3 C L 72 20 115/71 97 Room Air 11/18/22 23:36 36.7 C 81 20 111/80 98 Nasal Cannula 11/18/22 23:13 88 11/18/22 19:57 36.7 C 96 H 18 118/64 96 Room Air O2 Flow Rate 11/19/22 07:13 2.0 11/19/22 03:08 11/18/22 23:36 2 11/18/22 23:13 11/18/22 19:57 Laboratory Results Comprehensive Metabolic Panel 11/18/22 11/19/22 Range/Units 16:07 05:36 Sodium 140 140 (136-145) mmol/L Potassium 4.8 4.0 (3.5-5.1) mmol/L Chloride 100 99 (98-107) mmol/L Carbon Dioxide 34 H 37 H (21-32) mmol/L BUN 35 H 33 H (6-23) mg/dl Creatinine 0.98 1.02 (0.6-1.2) mg/dl Glucose 152 H 116 H (70-99(Fasting)) mg/dl Calcium 9.3 9.2 (8.6-10.3) mg/dl Intake and Output 11/18/22 11/19/22 11/19/22 22:59 06:59 14:59 Intake Total 391 / 1061 350 / 1061 100 / 100 Output Total 1500 / 3900 1050 / 3900 Balance -1109 / -2839 -700 / -2839 100 / 100 Intake: IV 191 / 711 200 / 711 100 / 100 Furosemide 100 mg In Dextrose 5 191 / 691 200 / 691 100 / 100 % 90 ml @ 40 MG/HR 40 mls/hr IV .Q2H30M [facility] Rx#:[id number] Oral 200 / 350 150 / 350 Output: Urine Amount (Catheter) 1500 / 3900 1050 / 3900 Red/Indwelling 1500 / 3900 1050 / 3900 Other: Weight 127.3 kg Weight Measurement Method Built in [facility] Medications Administered Current Inpatient Medications Acetaminophen (Acetaminophen 325 Mg Tab) 650 mg PO Q4H PRN PRN Reason: Pain or Fever Stop: 12/05/22 18:39 Last Admin: 11/06/22 08:40 Dose: 650 mg Acetaminophen (Acetaminophen 500 Mg Tab) 1,000 mg PO HS [facility] Stop: 12/05/22 20:59 Last Admin: 11/18/22 21:15 Dose: 1,000 mg Al Hydrox/Mg Hydrox/Simethicone (Aluminum/Magnesium/Simeth (Maalox Max) 30 Ml Udc) 30 ml PO Q6H PRN PRN Reason: Heartburn Stop: 12/13/22 19:30 Last Admin: 11/18/22 21:47 Dose: 30 ml Lipase/Protease/Amylase (Pancreaze (Lipase 10,500u) Cap) 2 cap PO QIDM [facility] Stop: 12/05/22 20:59 Last Admin: 11/19/22 08:29 Dose: 2 cap Lipase/Protease/Amylase (Pancreaze (Lipase 4,200u) Cap) 1 cap PO QIDM [facility] Stop: 12/05/22 20:59 Last Admin: 11/19/22 08:30 Dose: 1 cap Ascorbic Acid (Ascorbic Acid 500 Mg Tab) [facility] [place] Stop: 12/06/22 08:59 Last Admin: 11/19/22 08:30 Dose: 500 mg Aspirin (Aspirin 81 Mg Ectab) [facility] [place] Stop: 12/06/22 08:59 Last Admin: 11/19/22 08:37 Dose: 81 mg Atorvastatin Calcium (Atorvastatin 40 Mg Tab) 40 mg PO [facility] Stop: 12/05/22 20:59 Last Admin: 11/18/22 21:19 Dose: 40 mg Betaxolol HCl (Betaxolol Hcl 0.5% Op 5 Ml Btl) 1 drops OPL AMHS [facility] Stop: 12/05/22 20:59 Last Admin: 11/19/22 08:31 Dose: 1 drops Brimonidine Tartrate (Brimonidine Tartrate 0.2% 5ml) 1 drops OPL BID [facility] Stop: 12/05/22 20:59 Last Admin: 11/19/22 08:31 Dose: 1 drops Calcium Carbonate (Calcium Carbonate 500 Mg Chewable Tab) 500 mg PO QID PRN PRN Reason: Indigestion Stop: 12/09/22 18:41 Clopidogrel Bisulfate (Clopidogrel Bisulfate 75 Mg Tab) 75 mg PO QAM [facility] Stop: 12/06/22 08:59 Last Admin: 11/19/22 08:30 Dose: 75 mg Clotrimazole (Clotrimazole 1% Cr 15 Gm Tube) 1 appln EXT BID [facility] Stop: 11/19/22 20:59 Last Admin: 11/19/22 08:32 Dose: 1 appln Cyanocobalamin (Cyanocobalamin (B-12) 500 Mcg Tablet) 1,500 mcg PO QPM [facility] Stop: 12/05/22 20:59 Last Admin: 11/18/22 21:19 Dose: 1,500 mcg Dextrose (Dextrose 50% 50 Ml Syringe) 25 - 50 ml IV UD PRN; Protocol PRN Reason: Hypoglycemia Protocol Stop: 12/05/22 17:38 Enoxaparin Sodium (Enoxaparin Inj 40 Mg/0.4 Ml Syr) 40 mg SQ QAM [facility] Stop: 12/06/22 08:59 Last Admin: 11/18/22 09:06 Dose: 40 mg Erythromycin (Erythromycin Op Oint 5 Mg/Gm 3.5 Gm Tube) 1 appln OP QID [facility] Stop: 11/25/22 21:44 Last Admin: 11/19/22 08:31 Dose: 1 appln Ferrous Sulfate (Ferrous Sulfate 325 Mg Tab) 325 mg PO DAILY [facility] Stop: 12/06/22 08:59 Last Admin: 11/19/22 08:30 Dose: 325 mg Fluticasone Propionate (Fluticasone Propionate Na Spr 16 Gm Btl) 2 sprays NA QAM [facility] Stop: 12/06/22 08:59 Last Admin: 11/19/22 08:32 Dose: 2 sprays Folic Acid (Folic Acid 1 Mg Tab) 1 mg PO QAM [facility] Stop: 12/06/22 08:59 Last Admin: 11/19/22 08:30 Dose: 1 mg Gabapentin (Gabapentin 400 Mg Cap) 400 mg PO TID [facility] Stop: 12/05/22 20:59 Last Admin: 11/19/22 08:29 Dose: 400 mg Glucagon (Glucagon For Inj 1 Mg Vial) 1 mg SQ UD PRN; Protocol PRN Reason: Hypoglycemia Protocol Stop: 12/05/22 17:38 Glucose (Glucose 10 Tab/Tube) 4 - 8 tab PO UD PRN; Protocol PRN Reason: Hypoglycemia Treatment Stop: 12/05/22 17:38 Glucose (Glucose 40% Gel 15 Gm Tube) 15 - 30 gm PO UD PRN; Protocol PRN Reason: Hypoglycemia Protocol Stop: 12/05/22 17:38 Hydroxychloroquine Sulfate (Hydroxychloroquine Sulfate 200 Mg Tab) 400 mg PO HS [facility] Stop: 12/05/22 20:59 Last Admin: 11/18/22 21:20 Dose: 400 mg Furosemide 100 mg/ Dextrose 100 mls @ 40 mls/hr IV .Q2H30M [facility] Stop: 12/13/22 10:29 Last Admin: 11/19/22 09:34 Dose: 30 mg/hr, 30 mls/hr Promethazine HCl 12.5 mg/ (Sodium Chloride) 50.5 mls @ 202 mls/hr IV Q6H PRN PRN Reason: Nausea And Vomiting Stop: 12/15/22 00:06 Last Infusion: 11/15/22 02:00 Dose: Infused Insulin Aspart (Insulin Aspart Per Unit Charge) 0 units SC ACHS [facility] Stop: 12/05/22 20:59 Last Admin: 11/19/22 08:36 Dose: 10 units Insulin Glargine (Lantus Per Unit Charge) 10 units SQ BID [facility] Stop: 12/11/22 20:59 Last Admin: 11/19/22 08:40 Dose: 10 units Lactobacillus Acidophilus (Advanced Probiotic 1250 Mg Capsule) 1 cap PO QAM [facility] Stop: 12/06/22 08:59 Last Admin: 11/19/22 08:31 Dose: 1 cap Latanoprost (Latanoprost 0.005% Op Soln 2.5 Ml Btl) 1 drops OPB HS [facility] Stop: 12/05/22 20:59 Last Admin: 11/18/22 21:20 Dose: 1 drops Levothyroxine Sodium (Levothyroxine Sodium 125 Mcg Tablet) 125 mcg PO DAILYBB [facility] Stop: 12/06/22 06:29 Last Admin: 11/19/22 06:22 Dose: 125 mcg Loperamide HCl (Loperamide Hcl 2 Mg Cap) 2 mg PO Q3H PRN PRN Reason: Diarrhea Stop: 12/13/22 09:45 Last Admin: 11/15/22 17:19 Dose: 2 mg Lorazepam (Lorazepam 0.5 Mg Tab) 0.5 mg PO TID PRN PRN Reason: Anxiety Stop: 12/05/22 19:50 Last Admin: 11/18/22 23:24 Dose: 0.5 mg Magnesium Oxide (Magnesium Oxide 400 Mg Tab) 400 mg PO BID [facility] Stop: 12/06/22 20:59 Last Admin: 11/19/22 08:30 Dose: 400 mg Melatonin (Melatonin 3 Mg Tab) 6 mg PO HS [facility] Stop: 12/05/22 20:59 Last Admin: 11/18/22 23:24 Dose: 6 mg Menthol (Cough Drop (Sugar Free) Rob 24 Rob/1 Box) 1 rob BUCCAL TID PRN PRN Reason: Sore Throat Stop: 12/11/22 22:49 Last Admin: 11/11/22 23:23 Dose: 1 rob Metoprolol Succinate (Metoprolol Succ 25mg Ext Rel Tab) 12.5 mg PO QAM [facility] Stop: 12/18/22 08:59 Last Admin: 11/19/22 08:30 Dose: 12.5 mg Miscellaneous (Carbohydrates For Hypoglycemia ) 15 - 30 gm PO UD PRN PRN Reason: Hypoglycemia Protocol Stop: 12/05/22 17:38 Multivitamins/Minerals (Cerovite Adv Formula Tab) 1 tab PO QAM [facility] Stop: 12/06/22 08:59 Last Admin: 11/19/22 08:30 Dose: 1 tab Netarsudil (Netarsudil Mesylate 37 Drops/2.5 Ml Btl) 1 drops OPL HS [facility] Stop: 12/06/22 20:59 Last Admin: 11/18/22 21:20 Dose: 1 drops Nitroglycerin (Nitroglycerin Sl 0.4 Mg/Tab Tab) 0.4 mg SL Q5M PRN PRN Reason: Chest Pain Stop: 12/05/22 18:39 Nystatin (Nystatin Powder 15gm Btl) 1 appln EXT TID PRN PRN Reason: irritation Stop: 12/05/22 19:50 Last Admin: 11/07/22 21:52 Dose: 1 appln Pantoprazole Sodium (Pantoprazole 40 Mg Tab) 40 mg PO QAM [facility] Stop: 12/06/22 08:59 Last Admin: 11/19/22 08:30 Dose: 40 mg Potassium Chloride (Potassium Chloride Crtab 20 Meq Tabcr) 60 meq PO TIDM [facility] Stop: 12/17/22 11:59 Last Admin: 11/19/22 08:37 Dose: 60 meq Prednisone (Prednisone 5 Mg Tab) 5 mg PO QAM [facility] Stop: 12/06/22 08:59 Last Admin: 11/19/22 08:30 Dose: 5 mg Spironolactone (Spironolactone 25 Mg Tab) 25 mg PO DAILY [facility] Stop: 12/13/22 07:59 Last Admin: 11/19/22 08:30 Dose: 25 mg Tamsulosin HCl (Tamsulosin Hcl 0.4 Mg Cap) 0.4 mg PO [facility] Stop: 12/05/22 20:59 Last Admin: 11/18/22 21:19 Dose: 0.4 mg
[2022-11-19] MEDS: GABAPENTIN 400 MG CAP PO SCH ×3 (08:29→21:14)
[2022-11-19] MEDS: PANCREAZE (LIPASE 10,500U) CAP PO SCH ×4 (08:29→21:11)
[2022-11-19] MEDS: FERROUS SULFATE 325 MG TAB PO SCH (08:30)
[2022-11-19] MEDS: FOLIC ACID 1 MG TAB PO SCH (08:30)
[2022-11-19] MEDS: SPIRONOLACTONE 25 MG TAB PO SCH (08:30)
[2022-11-19] MEDS: predniSONE 5 MG TAB PO SCH (08:30)
[2022-11-19] MEDS: MAGNESIUM OXIDE 400 MG TAB PO SCH ×2 (08:30→21:13)
[2022-11-19] MEDS: ASCORBIC ACID 500 MG TAB PO SCH (08:30)
[2022-11-19] MEDS: PANCREAZE (LIPASE 4,200U) CAP PO SCH ×4 (08:30→21:15)
[2022-11-19] MEDS: METOPROLOL SUCC 25MG EXT REL TAB PO SCH (08:30)
[2022-11-19] MEDS: CLOPIDOGREL BISULFATE 75 MG TAB PO SCH (08:30)
[2022-11-19] MEDS: CEROVITE ADV FORMULA TAB PO SCH (08:30)
[2022-11-19] MEDS: PANTOprazole 40 MG TAB PO SCH (08:30)
[2022-11-19] MEDS: BETAXOLOL HCL 0.5% OPL SCH ×2 (08:31→21:16)
[2022-11-19] MEDS: BRIMONIDINE TARTRATE 0.2% 5ML OPL SCH ×2 (08:31→21:16)
[2022-11-19] MEDS: ADVANCED PROBIOTIC 1250 MG CAPSULE PO SCH (08:31)
[2022-11-19] MEDS: ERYTHROMYCIN OP OINT 5 MG/GM 3.5 GM TUBE OP SCH ×4 (08:31→21:17)
[2022-11-19] MEDS: CLOTRIMAZOLE 1% CR 15 GM TUBE EXT SCH (08:32)
[2022-11-19] MEDS: FLUTICASONE PROPIONATE NA SPR 16 GM BTL SCH (08:32)
[2022-11-19] MEDS: INSULIN ASPART PER UNIT CHARGE SC SCH ×4 (08:36→21:26)
[2022-11-19] MEDS: ASPIRIN 81 MG ECTAB PO SCH (08:37)
[2022-11-19] MEDS: POTASSIUM CHLORIDE CRTAB 20 MEQ TABCR PO SCH ×3 (08:37→17:21)
[2022-11-19] MEDS: LANTUS PER UNIT CHARGE SQ SCH ×2 (08:40→21:27)
[2022-11-19] MEDS ORDERED: metOLazone 5 MG TABLET PO ONE (10:04)
[2022-11-19] MEDS ORDERED: FUROSEMIDE 10 MG/ML 10 ML VIAL IV ONE (10:05)
--- NOTE | 2022-11-19 10:38 | Hospitalist Progress Note ---
Date of Service November 19, 2022 Assessment & Plan (1) Acute on chronic combined systolic (congestive) and diastolic (congestive) heart failure: Plan: 72 y/o with a complicated medical history including combined systolic and diastolic heart failure, CAD s/p PCI with WALTER, aortic stenosis (suspected severe), tachy-wilfrido syndrome s/p PPM in 2021, persistent afib since 07/01, bilateral carotid bruits, insulin-requiring DM, blindness, rheumatoid arthritis, chronic prednisone use, LAQUITA on CPAP, CKD3a, hypothyroidism, HTN, open-angle glaucoma, and recurrent liver cancer s/p recent placement of radiation beads. Presented with progressive shortness of breath over 5 weeks which did not improve even with increasing diuretics Her leg edema has been seeping liquid constantly Started with Lasix 40mg IV BID--> increased to lasix 60mg BID 11/08 40lb over ideal weight Lasix was then increased to 80 mg IV twice daily and added spironolactone 12.5 mg daily with supplemental potassium as needed Intravenous Lasix pushes were changed to a Lasix drip and this is ongoing with increase to drip and additional Lasix IV boluses intermittently cont to monitor strict I/Os, monitordaily standing weight, low salt diet, daily BMP. (2) Aortic stenosis: Plan: TAVR indicated, cardiology [place] [facility] [place] (3) Acquired thrombocytopenia: Plan: Worsening platelets to 51 K today. No evidence of bleeding. Lovenox and checking for any platelet antibodies. (4) Cellulitis of right leg: Plan: Completed linezolid course as above. (5) Venous stasis ulcers: Plan: She has chronic LE wounds for which she is following with wound care but she has been told that until the fluid overload is improved, her wounds will be unlikely to heal. some superficial Right leg cellulitis with extensive antibiotic allergy noted. Treated with a 7 day course of linezolid Dressing as per wound care which are currently in place. Advised to keep the legs elevated while in bed (6) Tinea corporis: Plan: Rash on left knee seems most consistent with tinea corporis - Started clotrimazole 1% cream BID for a 14 days course -resolving (7) Chronic kidney disease, stage 3: Plan: Chronic, stable despite aggressive diuresis. (8) Diabetes mellitus, type 2: Plan: Chronic, stable. Continue basal bolus insulin. Currently euglycemic. Will update A1c. (9) Hypothyroidism: Plan: Chronic, stable. Continue thyroid replacement as ordered (10) Sleep apnea: Plan: Reports insomnia is somewhat associated with not having her home mask. CPAP home device now in room (11) Rheumatoid arthritis: Plan: chronic, stable. Methotrexate currently on hold due to leg wounds - will continue prednisone and plaquenil Remains free from any significant arthritic pain (12) Iron deficiency anemia: Plan: chronic, stable. Cont current therapy. (13) Hepatocellular carcinoma: Plan: chronic, OP follow up (14) Morbid obesity: Plan: Lifestyle changes recommended, BMI 48. (15) Blindness: Plan: Assist with ADLs and IADLs as needed. Code status: Full code but no prolonged heroic measures. Son is her POA DVT Prophylaxis: held in setting of worsening thrombocytopenia. Disposition-- Evaluated by PT/OT, rehab recommended with plans for [facility], however, Cardiology considering inpatient transfer for TAVR. Yola Webb DO [facility] Hospitalist Admission and Anticipated Discharge Date Admission Date: November 05, 2022 Subjective 72-year-old female admitted for acute on chronic combined systolic diastolic heart failure secondary to severe aortic stenosis. Feels imprved today Family brought in her home CPAP mask Didn't get much sleep overnight Denies pain or excessive SOB Planning for [place] [facility] for [place]AVR Review of Systems Review of Systems: All systems reviewed negative except as indicated above. Physical Exam Physical Exam: CONSTITUTIONAL: morbidly obese, vitals as above, generally well-appearing, NAD EYES: eyes closed, low vision patient. ENT: external ear and nose normal, MMM NECK: trachea midline RESPIRATORY: clear to auscultation bilaterally, no crackles, rales or wheezes, normal respiratory effort CARDIOVASCULAR: regular rate and rhythm, 3/6 MILES throughout precordium, no gal lops or rubs, no JVD, 3+ pitting edema to thighs bilaterally. CHEST: inspection of chest was normal GASTROINTESTINAL: soft, nontender, ND, protuberant, no guarding MUSCULOSKELETAL: moves extremities equally, generalized weakness, head is normocephalic and atraumatic SKIN: warm and dry NEUROLOGIC: CN 2-12 grossly intact, no sensory deficit, normal cognition, normal speech, no tremor PSYCHIATRIC: alert cooperative and oriented to person, place and time. Euthymic mood, makes good eye contact, language grossly intact, recent and remote memory grossly intact. Results & Data Results & Data Vital Signs (Past 12 Hours) Vital Signs Temp Pulse Pulse Resp BP Pulse Ox O2 Del Method 11/19/22 07:54 79 11/19/22 07:13 36.8 C 85 16 109/60 100 Nasal Cannula 11/19/22 03:08 36.3 C L 72 20 115/71 97 Room Air 11/18/22 23:36 36.7 C 81 20 111/80 98 Nasal Cannula 11/18/22 23:13 88 O2 Flow Rate 11/19/22 07:54 11/19/22 07:13 2.0 11/19/22 03:08 11/18/22 23:36 2 11/18/22 23:13 Laboratory Results BMP 11/18/22 11/19/22 16:07 05:36 Sodium 140 140 Potassium 4.8 4.0 Chloride 100 99 Carbon Dioxide 34 H 37 H BUN 35 H 33 H Creatinine 0.98 1.02 Glucose 152 H 116 H Calcium 9.3 9.2 Medications Administered Current Inpatient Medications Acetaminophen (Acetaminophen 325 Mg Tab) 650 mg PO Q4H PRN PRN Reason: Pain or Fever Stop: 12/05/22 18:39 Last Admin: 11/06/22 08:40 Dose: 650 mg Acetaminophen (Acetaminophen 500 Mg Tab) 1,000 mg PO HS [facility] Stop: 12/05/22 20:59 Last Admin: 11/18/22 21:15 Dose: 1,000 mg Al Hydrox/Mg Hydrox/Simethicone (Aluminum/Magnesium/Simeth (Maalox Max) 30 Ml Udc) 30 ml PO Q6H PRN PRN Reason: Heartburn Stop: 12/13/22 19:30 Last Admin: 11/18/22 21:47 Dose: 30 ml Lipase/Protease/Amylase (Pancreaze (Lipase 10,500u) Cap) 2 cap PO QIDM [facility] Stop: 12/05/22 20:59 Last Admin: 11/19/22 08:29 Dose: 2 cap Lipase/Protease/Amylase (Pancreaze (Lipase 4,200u) Cap) 1 cap PO QIDM [facility] Stop: 12/05/22 20:59 Last Admin: 11/19/22 08:30 Dose: 1 cap Ascorbic Acid (Ascorbic Acid 500 Mg Tab) 500 mg PO QAM [facility] Stop: 12/06/22 08:59 Last Admin: 11/19/22 08:30 Dose: 500 mg Aspirin (Aspirin 81 Mg Ectab) 81 mg PO QAM [facility] Stop: 12/06/22 08:59 Last Admin: 11/19/22 08:37 Dose: 81 mg Atorvastatin Calcium (Atorvastatin 40 Mg Tab) 40 mg PO HS [facility] Stop: 12/05/22 20:59 Last Admin: 11/18/22 21:19 Dose: 40 mg Betaxolol HCl (Betaxolol Hcl 0.5% Op 5 Ml Btl) 1 drops OPL AMHS [facility] Stop: 12/05/22 20:59 Last Admin: 11/19/22 08:31 Dose: 1 drops Brimonidine Tartrate (Brimonidine Tartrate 0.2% 5ml) 1 drops OPL BID [facility] Stop: 12/05/22 20:59 Last Admin: 11/19/22 08:31 Dose: 1 drops Calcium Carbonate (Calcium Carbonate 500 Mg Chewable Tab) 500 mg PO QID PRN PRN Reason: Indigestion Stop: 12/09/22 18:41 Clopidogrel Bisulfate (Clopidogrel Bisulfate 75 Mg Tab) 75 mg PO QAM [facility] Stop: 12/06/22 08:59 Last Admin: 11/19/22 08:30 Dose: 75 mg Clotrimazole (Clotrimazole 1% Cr 15 Gm Tube) 1 appln EXT BID [facility] Stop: 11/19/22 20:59 Last Admin: 11/19/22 08:32 Dose: 1 appln Cyanocobalamin (Cyanocobalamin (B-12) 500 Mcg Tablet) 1,500 mcg PO QPM [facility] Stop: 12/05/22 20:59 Last Admin: 11/18/22 21:19 Dose: 1,500 mcg Dextrose (Dextrose 50% 50 Ml Syringe) 25 - 50 ml IV UD PRN; Protocol PRN Reason: Hypoglycemia Protocol Stop: 12/05/22 17:38 Enoxaparin Sodium (Enoxaparin Inj 40 Mg/0.4 Ml Syr) 40 mg SQ QAM [facility] Stop: 12/06/22 08:59 Last Admin: 11/18/22 09:06 Dose: 40 mg Erythromycin (Erythromycin Op Oint 5 Mg/Gm 3.5 Gm Tube) 1 appln OP QID [facility] Stop: 11/25/22 21:44 Last Admin: 11/19/22 08:31 Dose: 1 appln Ferrous Sulfate (Ferrous Sulfate 325 Mg Tab) 325 mg PO DAILY [facility] Stop: 12/06/22 08:59 Last Admin: 11/19/22 08:30 Dose: 325 mg Fluticasone Propionate (Fluticasone Propionate Na Spr 16 Gm Btl) 2 sprays NA QAM [facility] Stop: 12/06/22 08:59 Last Admin: 11/19/22 08:32 Dose: 2 sprays Folic Acid (Folic Acid 1 Mg Tab) 1 mg PO QAM [facility] Stop: 12/06/22 08:59 Last Admin: 11/19/22 08:30 Dose: 1 mg Gabapentin (Gabapentin 400 Mg Cap) 400 mg PO TID [facility] Stop: 12/05/22 20:59 Last Admin: 11/19/22 08:29 Dose: 400 mg Glucagon (Glucagon For Inj 1 Mg Vial) 1 mg SQ UD PRN; Protocol PRN Reason: Hypoglycemia Protocol Stop: 12/05/22 17:38 Glucose (Glucose 10 Tab/Tube) 4 - 8 tab PO UD PRN; Protocol PRN Reason: Hypoglycemia Treatment Stop: 12/05/22 17:38 Glucose (Glucose 40% Gel 15 Gm Tube) 15 - 30 gm PO UD PRN; Protocol PRN Reason: Hypoglycemia Protocol Stop: 12/05/22 17:38 Hydroxychloroquine Sulfate (Hydroxychloroquine Sulfate 200 Mg Tab) 400 mg PO HS [facility] Stop: 12/05/22 20:59 Last Admin: 11/18/22 21:20 Dose: 400 mg Furosemide 100 mg/ Dextrose 100 mls @ 40 mls/hr IV .Q2H30M [facility] Stop: 12/13/22 10:29 Last Admin: 11/19/22 09:34 Dose: 30 mg/hr, 30 mls/hr Promethazine HCl 12.5 mg/ (Sodium Chloride) 50.5 mls @ 202 mls/hr IV Q6H PRN PRN Reason: Nausea And Vomiting Stop: 12/15/22 00:06 Last Infusion: 11/15/22 02:00 Dose: Infused Insulin Aspart (Insulin Aspart Per Unit Charge) 0 units SC ACHS [facility] Stop: 12/05/22 20:59 Last Admin: 11/19/22 08:36 Dose: 10 units Insulin Glargine (Lantus Per Unit Charge) 10 units SQ BID [facility] Stop: 12/11/22 20:59 Last Admin: 11/19/22 08:40 Dose: 10 units Lactobacillus Acidophilus (Advanced Probiotic 1250 Mg Capsule) 1 cap PO QAM [facility] Stop: 12/06/22 08:59 Last Admin: 11/19/22 08:31 Dose: 1 cap Latanoprost (Latanoprost 0.005% Op Soln 2.5 Ml Btl) 1 drops OPB [facility] Stop: 12/05/22 20:59 Last Admin: 11/18/22 21:20 Dose: 1 drops Levothyroxine Sodium (Levothyroxine Sodium 125 Mcg Tablet) 125 mcg PO DAILYBB [facility] Stop: 12/06/22 06:29 Last Admin: 11/19/22 06:22 Dose: 125 mcg Loperamide HCl (Loperamide Hcl 2 Mg Cap) 2 mg PO Q3H PRN PRN Reason: Diarrhea Stop: 12/13/22 09:45 Last Admin: 11/15/22 17:19 Dose: 2 mg Lorazepam (Lorazepam 0.5 Mg Tab) 0.5 mg PO TID PRN PRN Reason: Anxiety Stop: 12/05/22 19:50 Last Admin: 11/18/22 23:24 Dose: 0.5 mg Magnesium Oxide (Magnesium Oxide 400 Mg Tab) 400 mg PO BID [facility] Stop: 12/06/22 20:59 Last Admin: 11/19/22 08:30 Dose: 400 mg Melatonin (Melatonin 3 Mg Tab) 6 mg PO [facility] Stop: 12/05/22 20:59 Last Admin: 11/18/22 23:24 Dose: 6 mg Menthol (Cough Drop (Sugar Free) Rob 24 Rob/1 Box) 1 rob BUCCAL TID PRN PRN Reason: Sore Throat Stop: 12/11/22 22:49 Last Admin: 11/11/22 23:23 Dose: 1 rob Metoprolol Succinate (Metoprolol Succ 25mg Ext Rel Tab) 12.5 mg PO QAM [facility] Stop: 12/18/22 08:59 Last Admin: 11/19/22 08:30 Dose: 12.5 mg Miscellaneous (Carbohydrates For Hypoglycemia ) 15 - 30 gm PO UD PRN PRN Reason: Hypoglycemia Protocol Stop: 12/05/22 17:38 Multivitamins/Minerals (Cerovite Adv Formula Tab) 1 tab PO QAM [facility] Stop: 12/06/22 08:59 Last Admin: 11/19/22 08:30 Dose: 1 tab Netarsudil (Netarsudil Mesylate 37 Drops/2.5 Ml Btl) 1 drops OPL HS [facility] Stop: 12/06/22 20:59 Last Admin: 11/18/22 21:20 Dose: 1 drops Nitroglycerin (Nitroglycerin Sl 0.4 Mg/Tab Tab) 0.4 mg SL Q5M PRN PRN Reason: Chest Pain Stop: 12/05/22 18:39 Nystatin (Nystatin Powder 15gm Btl) 1 appln EXT TID PRN PRN Reason: irritation Stop: 12/05/22 19:50 Last Admin: 11/07/22 21:52 Dose: 1 appln Pantoprazole Sodium (Pantoprazole 40 Mg Tab) 40 mg PO QAM [facility] Stop: 12/06/22 08:59 Last Admin: 11/19/22 08:30 Dose: 40 mg Potassium Chloride (Potassium Chloride Crtab 20 Meq Tabcr) 60 meq PO TIDM [facility] Stop: 12/17/22 11:59 Last Admin: 11/19/22 08:37 Dose: 60 meq Prednisone (Prednisone 5 Mg Tab) 5 mg PO QAM [facility] Stop: 12/06/22 08:59 Last Admin: 11/19/22 08:30 Dose: 5 mg Spironolactone (Spironolactone 25 Mg Tab) 25 mg PO DAILY [facility] Stop: 12/13/22 07:59 Last Admin: 11/19/22 08:30 Dose: 25 mg Tamsulosin HCl (Tamsulosin Hcl 0.4 Mg Cap) 0.4 mg PO HS [facility] Stop: 12/05/22 20:59 Last Admin: 11/18/22 21:19 Dose: 0.4 mg
[2022-11-19 11:06] LABS: Basophils # (auto) 0.04 K/uL (0-0.2); Basophils % (auto) 0.5 %; Eosinophils # (auto) 0.07 K/uL (0-0.50); Eosinophils % (auto) 0.8 %; Hematocrit (blood only) 32.6 % (37.0-47.0); Hemoglobin 10.3 g/dl (12.0-16.0); Immature Granulocytes # (auto) 0.02 K/uL (0.01-0.20); Immature Granulocytes % (auto) 0.2 %; Lymphocytes # (auto) 0.34 K/uL (1.2-3.4); Lymphocytes % (auto) 3.9 %; Mean Corpuscular Hemoglobin 27.5 pg (25.0-34.0); Mean Corpuscular Hgb Conc 31.6 g/dL (32.0-36.0); Mean Corpuscular Volume 86.9 fL (80.0-100.0); Mean Platelet Volume 12.4 fL (9.4-12.4); Monocytes # (auto) 0.97 K/uL (0.11-0.59); Neutrophils # (auto) 7.36 K/uL (1.40-6.50); Neutrophils % (auto) 83.6 %; Platelet Count 59 K/uL (130-400); RDW Coefficient of Variation 17.2 % (11.5-14.5); RDW Standard Deviation 53.3 fL (36.4-46.3); Red Blood Count 3.75 M/uL (4.20-5.40)
[2022-11-19 11:37] LABS: Fibrinogen 311 mg/dl (184-400); INR 1.1 (0.9-1.1); Prothrombin Time 12.1 Seconds (9.0-12.0)
[2022-11-19 16:30] LABS: Calcium 9.5 mg/dl (8.6-10.3); Creatinine Clr Calc Pharmacy 60.6 ml/min; Est GFR (African American) 58.1 ml/min; Est GFR (Non-African American) 50.1 ml/min; Potassium 4.7 mmol/L (3.5-5.1)
[2022-11-19] MEDS: ACETAMINOPHEN 500 MG TAB PO SCH (21:12)
[2022-11-19] MEDS: CYANOCOBALAMIN (B-12) 500 MCG TABLET PO SCH (21:15)
[2022-11-19] MEDS: TAMSULOSIN HCL 0.4 MG CAP PO SCH (21:15)
[2022-11-19] MEDS: HYDROXYCHLOROQUINE SULFATE 200 MG TAB PO SCH (21:15)
[2022-11-19] MEDS: ATORVASTATIN 40 MG TAB PO SCH (21:16)
[2022-11-19] MEDS: LATANOPROST 0.005% OP SOLN 2.5 ML BTL OPB SCH (21:17)
[2022-11-19] MEDS: NETARSUDIL MESYLATE 37 DROPS/2.5 ML BTL OPL SCH (21:17)
[2022-11-19] MEDS: ALUMINUM/MAGNESIUM/SIMETH (MAALOX MAX) 30 ML UDC PO PRN (21:29)
[2022-11-19] MEDS: MELATONIN 3 MG TAB PO SCH (23:27)
[2022-11-19] MEDS: LORazepam 0.5 MG TAB PO PRN (23:28)
[2022-11-20] MEDS: FUROSEMIDE 100 MG in DEXTROSE 5% 90 ML IV SCH ×8 (01:08→21:28)
[2022-11-20] MEDS: LEVOTHYROXINE SODIUM 125 MCG TABLET PO SCH (06:23)
[2022-11-20 07:04] LABS: Creatinine Clr Calc Pharmacy 56.8 ml/min; Est GFR (African American) 55.6 ml/min
--- NOTE | 2022-11-20 07:38 | Cardiology Progress Note ---
Date of Service November 20, 2022 Assessment & Plan Admission and Anticipated Discharge Date Admission Date: November 05, 2022 Supervising Physician Co-Signing Physician Notes Attending Staff: Pt was seen and evaluated with [facility] staff. 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 Case reviewed Markedly volume overloaded + JVP 18 cmH20 S1 - murmur - Muted S2 Decreased BS at Right base + Abdominal Wall Edema +3 Bilateral LE edema extending to the inguinal folds Pt is making progress with volume Degree of volume overload is severe Plan: Aggressive diuresis Lasix 200 IV x1 Continue Lasix infusion to 40 mg IV/hr (max) Potential Zaroxolyn on 11/21/2022 Weight 121 KG (Standing) Consider Purewik for urine collection MARIXA - OFF Continue Toprol XL 12.5 mg po per day; HR 78 BID electrolyte check K+ goal 4.5-5 KCL 60 meq po TID + Additional K repletion Supplemental K+ as needed to achieve goal Continue Aldactone 25 mg po per day Mag goal >2 STANDING WEIGHT DAILY + Stent Continue ASA 81 mg po per day Continue Plavix 75 mg po per day Continue Lipitor 40 mg po per day LDL (PENDING) [place] [facility] [place] need to be [place] [facility] [place] evaluation and management of acute on chronic combined heart failure Need to investigate issues re: Liver prior to transfer. May need a prognosis re: Liver pathology Pt is agreeable to transfer if needed Mobilize patient Dylan Saravia Subjective Events Overnight: * Ongoing diuresis * Diuresis improved with Zaroxolyn Subjective: * No complaints Review of Systems Review of Systems: All systems reviewed & are unremarkable except as noted in HPI & below Physical Exam Physical Exam: General: Alert, no distress, well nourished, well developed, comfortable and cooperative HENT: Normocephalic. Atraumatic. Neck: + JVD. - 16 cmH20 Heart: Distant heart sounds. Regular at 76 bpm. Grade II/ systolic murmur. Lungs: Decreased at the bases. Bibasilar rales. No wheeze. Abdomen: +BS. Distended. Nontender. No masses. Abdominal wall edema Extremities: 2+ pitting edema, diffuse. No clubbing. No cyanosis Skin: chronic venous changes Limited neurological examination: No focal deficit. Results & Data Vital Signs (Past 12 Hours) Vital Signs Temp Pulse Pulse Resp BP Pulse Ox O2 Del Method 11/20/22 03:53 36.4 C L 80 18 97/49 L 94 Room Air 11/19/22 22:58 36.8 C 81 18 100/64 94 Room Air 11/19/22 22:49 86 Laboratory Results Coagulation 11/19/22 Range/Units 10:47 PT 12.1 H (9.0-12.0) Seconds CBC 11/19/22 Range/Units 10:47 WBC 8.80 (4.8-10.8) K/ul RBC 3.75 L (4.20-5.40) M/uL Hgb 10.3 L (12.0-16.0) g/dl Hct 32.6 L (37.0-47.0) % Plt Count 59 L (130-400) K/uL Neut # (Auto) 7.36 H (1.40-6.50) K/uL Lymph # (Auto) 0.34 L (1.2-3.4) K/uL [place] # (Auto) 0.97 H (0.11-0.59) K/uL Eos # (Auto) 0.07 (0-0.50) K/uL Baso # (Auto) 0.04 (0-0.2) K/uL Comprehensive Metabolic Panel 11/19/22 11/20/22 Range/Units 15:47 06:09 Sodium 139 143 (136-145) mmol/L Potassium 4.7 3.6 D (3.5-5.1) mmol/L Chloride 97 L 95 L (98-107) mmol/L Carbon Dioxide 37 H 40 H (21-32) mmol/L BUN 33 H 34 H (6-23) mg/dl Creatinine 1.10 1.14 (0.6-1.2) mg/dl Glucose 175 H 106 H (70-99(Fasting)) mg/dl Calcium 9.5 9.8 (8.6-10.3) mg/dl Intake and Output 11/19/22 11/20/22 11/20/22 22:59 06:59 14:59 Intake Total 1300 / 2670 1170 / 2670 Output Total 2150 / 5750 2250 / 5750 Balance -850 / -3080 -1080 / -3080 Intake: IV 200 / 600 200 / 600 Furosemide 100 mg In Dextrose 5 200 / 600 200 / 600 % 90 ml @ 40 MG/HR 40 mls/hr IV .Q2H30M [facility] Rx#:[id number] Oral 1100 / 0 97 / 2069 Output: Urine 2150 / 2150 Urine Amount (Catheter) 2250 / 3600 Red/Indwelling 2250 / 3600 Other: Weight 121.2 kg Weight Measurement Method Standing Scale Medications Administered Current Inpatient Medications Acetaminophen (Acetaminophen 325 Mg Tab) 650 mg PO Q4H PRN PRN Reason: Pain or Fever Stop: 12/05/22 18:39 Last Admin: 11/06/22 08:40 Dose: 650 mg Acetaminophen (Acetaminophen 500 Mg Tab) 1,000 mg PO [facility] Stop: 12/05/22 20:59 Last Admin: 11/19/22 21:12 Dose: 1,000 mg Al Hydrox/Mg Hydrox/Simethicone (Aluminum/Magnesium/Simeth (Maalox Max) 30 Ml Udc) 30 ml PO Q6H PRN PRN Reason: Heartburn Stop: 12/13/22 19:30 Last Admin: 11/19/22 21:29 Dose: 30 ml Lipase/Protease/Amylase (Pancreaze (Lipase 10,500u) Cap) 2 cap PO QIDM [facility] Stop: 12/05/22 20:59 Last Admin: 11/19/22 21:11 Dose: 2 cap Lipase/Protease/Amylase (Pancreaze (Lipase 4,200u) Cap) 1 cap PO QIDM [facility] Stop: 12/05/22 20:59 Last Admin: 11/19/22 21:15 Dose: 1 cap Ascorbic Acid (Ascorbic Acid 500 Mg Tab) [facility] [place] Stop: 12/06/22 08:59 Last Admin: 11/19/22 08:30 Dose: 500 mg Aspirin (Aspirin 81 Mg Ectab) [facility] [place] Stop: 12/06/22 08:59 Last Admin: 11/19/22 08:37 Dose: 81 mg Atorvastatin Calcium (Atorvastatin 40 Mg Tab) 40 mg PO [facility] Stop: 12/05/22 20:59 Last Admin: 11/19/22 21:16 Dose: 40 mg Betaxolol HCl (Betaxolol Hcl 0.5% Op 5 Ml Btl) 1 drops OPL [facility] Stop: 12/05/22 20:59 Last Admin: 11/19/22 21:16 Dose: 1 drops Brimonidine Tartrate (Brimonidine Tartrate 0.2% 5ml) 1 drops OPL BID [facility] Stop: 12/05/22 20:59 Last Admin: 11/19/22 21:16 Dose: 1 drops Calcium Carbonate (Calcium Carbonate 500 Mg Chewable Tab) 500 mg PO QID PRN PRN Reason: Indigestion Stop: 12/09/22 18:41 Clopidogrel Bisulfate (Clopidogrel Bisulfate 75 Mg Tab) 75 mg PO QAM [facility] Stop: 12/06/22 08:59 Last Admin: 11/19/22 08:30 Dose: 75 mg Cyanocobalamin (Cyanocobalamin (B-12) 500 Mcg Tablet) 1,500 mcg PO QPM [facility] Stop: 12/05/22 20:59 Last Admin: 11/19/22 21:15 Dose: 1,500 mcg Dextrose (Dextrose 50% 50 Ml Syringe) 25 - 50 ml IV UD PRN; Protocol PRN Reason: Hypoglycemia Protocol Stop: 12/05/22 17:38 Enoxaparin Sodium (Enoxaparin Inj 40 Mg/0.4 Ml Syr) 40 mg SQ QAM [facility] Stop: 12/06/22 08:59 Last Admin: 11/18/22 09:06 Dose: 40 mg Erythromycin (Erythromycin Op Oint 5 Mg/Gm 3.5 Gm Tube) 1 appln OP QID [facility] Stop: 11/25/22 21:44 Last Admin: 11/19/22 21:17 Dose: 1 appln Ferrous Sulfate (Ferrous Sulfate 325 Mg Tab) 325 mg PO DAILY [facility] Stop: 12/06/22 08:59 Last Admin: 11/19/22 08:30 Dose: 325 mg Fluticasone Propionate (Fluticasone Propionate Na Spr 16 Gm Btl) 2 sprays NA QAM [facility] Stop: 12/06/22 08:59 Last Admin: 11/19/22 08:32 Dose: 2 sprays Folic Acid (Folic Acid 1 Mg Tab) 1 mg PO QAM [facility] Stop: 12/06/22 08:59 Last Admin: 11/19/22 08:30 Dose: 1 mg Gabapentin (Gabapentin 400 Mg Cap) 400 mg PO TID [facility] Stop: 12/05/22 20:59 Last Admin: 11/19/22 21:14 Dose: 400 mg Glucagon (Glucagon For Inj 1 Mg Vial) 1 mg SQ UD PRN; Protocol PRN Reason: Hypoglycemia Protocol Stop: 12/05/22 17:38 Glucose (Glucose 10 Tab/Tube) 4 - 8 tab PO UD PRN; Protocol PRN Reason: Hypoglycemia Treatment Stop: 12/05/22 17:38 Glucose (Glucose 40% Gel 15 Gm Tube) 15 - 30 gm PO UD PRN; Protocol PRN Reason: Hypoglycemia Protocol Stop: 12/05/22 17:38 Hydroxychloroquine Sulfate (Hydroxychloroquine Sulfate 200 Mg Tab) 400 mg PO HS [facility] Stop: 12/05/22 20:59 Last Admin: 11/19/22 21:15 Dose: 400 mg Furosemide 100 mg/ Dextrose 100 mls @ 40 mls/hr IV .Q2H30M [facility] Stop: 12/13/22 10:29 Last Admin: 11/20/22 04:43 Dose: 30 mg/hr, 30 mls/hr Promethazine HCl 12.5 mg/ (Sodium Chloride) 50.5 mls @ 202 mls/hr IV Q6H PRN PRN Reason: Nausea And Vomiting Stop: 12/15/22 00:06 Last Infusion: 11/15/22 02:00 Dose: Infused Insulin Aspart (Insulin Aspart Per Unit Charge) 0 units SC ACHS [facility] Stop: 12/05/22 20:59 Last Admin: 11/19/22 21:26 Dose: 2 units Insulin Glargine (Lantus Per Unit Charge) 10 units SQ BID [facility] Stop: 12/11/22 20:59 Last Admin: 11/19/22 21:27 Dose: 10 units Lactobacillus Acidophilus (Advanced Probiotic 1250 Mg Capsule) 1 cap PO QAM [facility] Stop: 12/06/22 08:59 Last Admin: 11/19/22 08:31 Dose: 1 cap Latanoprost (Latanoprost 0.005% Op Soln 2.5 Ml Btl) 1 drops OPB HS [facility] Stop: 12/05/22 20:59 Last Admin: 11/19/22 21:17 Dose: 1 drops Levothyroxine Sodium (Levothyroxine Sodium 125 Mcg Tablet) 125 mcg PO DAILYBB [facility] Stop: 12/06/22 06:29 Last Admin: 11/20/22 06:23 Dose: 125 mcg Loperamide HCl (Loperamide Hcl 2 Mg Cap) 2 mg PO Q3H PRN PRN Reason: Diarrhea Stop: 12/13/22 09:45 Last Admin: 11/15/22 17:19 Dose: 2 mg Lorazepam (Lorazepam 0.5 Mg Tab) 0.5 mg PO TID PRN PRN Reason: Anxiety Stop: 12/05/22 19:50 Last Admin: 11/19/22 23:28 Dose: 0.5 mg Magnesium Oxide (Magnesium Oxide 400 Mg Tab) 400 mg PO BID [facility] Stop: 12/06/22 20:59 Last Admin: 11/19/22 21:13 Dose: 400 mg Melatonin (Melatonin 3 Mg Tab) 6 mg PO HS [facility] Stop: 12/05/22 20:59 Last Admin: 11/19/22 23:27 Dose: 6 mg Menthol (Cough Drop (Sugar Free) Rob 24 Rob/1 Box) 1 rob BUCCAL TID PRN PRN Reason: Sore Throat Stop: 12/11/22 22:49 Last Admin: 11/11/22 23:23 Dose: 1 rob Metoprolol Succinate (Metoprolol Succ 25mg Ext Rel Tab) 12.5 mg PO QAM [facility] Stop: 12/18/22 08:59 Last Admin: 11/19/22 08:30 Dose: 12.5 mg Miscellaneous (Carbohydrates For Hypoglycemia ) 15 - 30 gm PO UD PRN PRN Reason: Hypoglycemia Protocol Stop: 12/05/22 17:38 Multivitamins/Minerals (Cerovite Adv Formula Tab) 1 tab PO QAM [facility] Stop: 12/06/22 08:59 Last Admin: 11/19/22 08:30 Dose: 1 tab Netarsudil (Netarsudil Mesylate 37 Drops/2.5 Ml Btl) 1 drops OPL HS [facility] Stop: 12/06/22 20:59 Last Admin: 11/19/22 21:17 Dose: 1 drops Nitroglycerin (Nitroglycerin Sl 0.4 Mg/Tab Tab) 0.4 mg SL Q5M PRN PRN Reason: Chest Pain Stop: 12/05/22 18:39 Nystatin (Nystatin Powder 15gm Btl) 1 appln EXT TID PRN PRN Reason: irritation Stop: 12/05/22 19:50 Last Admin: 11/07/22 21:52 Dose: 1 appln Pantoprazole Sodium (Pantoprazole 40 Mg Tab) 40 mg PO QAM [facility] Stop: 12/06/22 08:59 Last Admin: 11/19/22 08:30 Dose: 40 mg Potassium Chloride (Potassium Chloride Crtab 20 Meq Tabcr) 60 meq PO TIDM [facility] Stop: 12/17/22 11:59 Last Admin: 11/19/22 17:21 Dose: 60 meq Prednisone (Prednisone 5 Mg Tab) 5 mg PO QAM LIBBY Stop: 12/06/22 08:59 Last Admin: 11/19/22 08:30 Dose: 5 mg Spironolactone (Spironolactone 25 Mg Tab) 25 mg PO DAILY LIBBY Stop: 12/13/22 07:59 Last Admin: 11/19/22 08:30 Dose: 25 mg Tamsulosin HCl (Tamsulosin Hcl 0.4 Mg Cap) 0.4 mg PO HS LIBBY Stop: 12/05/22 20:59 Last Admin: 11/19/22 21:15 Dose: 0.4 mg
[2022-11-20 07:51] LABS: BUN Creatinine Ratio 29.8 (10-20); Calcium 9.8 mg/dl (8.6-10.3); Magnesium 2.1 mg/dl (1.7-2.4); Potassium 3.6 mmol/L (3.5-5.1)
[2022-11-20 08:15] LABS: Hematocrit (blood only) 32.8 % (37.0-47.0); Hemoglobin 10.3 g/dl (12.0-16.0); Mean Corpuscular Hemoglobin 27.6 pg (25.0-34.0); Mean Corpuscular Hgb Conc 31.4 g/dL (32.0-36.0); Mean Corpuscular Volume 87.9 fL (80.0-100.0); Mean Platelet Volume 12.6 fL (9.4-12.4); Platelet Count 63 K/uL (130-400); RDW Coefficient of Variation 17.2 % (11.5-14.5); RDW Standard Deviation 53.6 fL (36.4-46.3); Red Blood Count 3.73 M/uL (4.20-5.40); White Blood Count 7.77 K/ul (4.8-10.8)
[2022-11-20] MEDS ORDERED: POTASSIUM CHLORIDE CRTAB 20 MEQ TABCR PO ONE ×2 (08:17→12:00)
[2022-11-20] MEDS: PANTOprazole 40 MG TAB PO SCH (08:26)
[2022-11-20] MEDS: METOPROLOL SUCC 25MG EXT REL TAB PO SCH (08:26)
[2022-11-20] MEDS: ADVANCED PROBIOTIC 1250 MG CAPSULE PO SCH (08:26)
[2022-11-20] MEDS: FOLIC ACID 1 MG TAB PO SCH (08:26)
[2022-11-20] MEDS: predniSONE 5 MG TAB PO SCH (08:26)
[2022-11-20] MEDS: GABAPENTIN 400 MG CAP PO SCH ×3 (08:27→20:30)
[2022-11-20] MEDS: MAGNESIUM OXIDE 400 MG TAB PO SCH ×2 (08:27→20:31)
[2022-11-20] MEDS: SPIRONOLACTONE 25 MG TAB PO SCH (08:27)
[2022-11-20] MEDS: PANCREAZE (LIPASE 4,200U) CAP PO SCH ×4 (08:27→20:29)
[2022-11-20] MEDS: CEROVITE ADV FORMULA TAB PO SCH (08:27)
[2022-11-20] MEDS: ERYTHROMYCIN OP OINT 5 MG/GM 3.5 GM TUBE OP SCH ×4 (08:28→20:31)
[2022-11-20] MEDS: FLUTICASONE PROPIONATE NA SPR 16 GM BTL SCH (08:28)
[2022-11-20] MEDS: FERROUS SULFATE 325 MG TAB PO SCH (08:28)
[2022-11-20] MEDS: ASCORBIC ACID 500 MG TAB PO SCH (08:29)
[2022-11-20] MEDS: CLOPIDOGREL BISULFATE 75 MG TAB PO SCH (08:29)
[2022-11-20] MEDS: PANCREAZE (LIPASE 10,500U) CAP PO SCH ×4 (08:30→20:29)
[2022-11-20] MEDS: POTASSIUM CHLORIDE CRTAB 20 MEQ TABCR PO SCH ×6 (08:30→18:06)
[2022-11-20] MEDS: BRIMONIDINE TARTRATE 0.2% 5ML OPL SCH ×2 (08:31→20:32)
[2022-11-20] MEDS: BETAXOLOL HCL 0.5% OPL SCH ×2 (08:32→20:32)
[2022-11-20] MEDS: LANTUS PER UNIT CHARGE SQ SCH ×2 (08:48→20:25)
[2022-11-20] MEDS: ASPIRIN 81 MG ECTAB PO SCH (08:49)
[2022-11-20] MEDS: INSULIN ASPART PER UNIT CHARGE SC SCH ×4 (08:49→20:26)
[2022-11-20] MEDS ORDERED: FUROSEMIDE IV SCH (09:00)
[2022-11-20] MEDS ORDERED: FUROSEMIDE INJ 20 MG/2 ML VIAL IV ONE (10:00)
--- NOTE | 2022-11-20 18:01 | Hospitalist Progress Note ---
Date of Service November 20, 2022 Assessment & Plan (1) Acute on chronic combined systolic (congestive) and diastolic (congestive) heart failure: Plan: 72 y/o with a complicated medical history including combined systolic and diastolic heart failure, CAD s/p PCI with WALTER, aortic stenosis (suspected severe), tachy-wilfrido syndrome s/p PPM in 2021, persistent afib since 07/01, bilateral carotid bruits, insulin-requiring DM, blindness, rheumatoid arthritis, chronic prednisone use, LAQUITA on CPAP, CKD3a, hypothyroidism, HTN, open-angle glaucoma, and recurrent liver cancer s/p recent placement of radiation beads. Presented with progressive shortness of breath over 5 weeks which did not improve even with increasing diuretics Her leg edema has been seeping liquid constantly Started with Lasix 40mg IV BID--> increased to lasix 60mg BID 11/08 40lb over ideal weight Lasix was then increased to 80 mg IV twice daily and added spironolactone 12.5 mg daily with supplemental potassium as needed Intravenous Lasix pushes were changed to a Lasix drip and this is ongoing with increase to drip and additional Lasix IV boluses intermittently cont to monitor strict I/Os, monitordaily standing weight, low salt diet, daily BMP. (2) Aortic stenosis: Plan: TAVR indicated, cardiology considering inpatient transfer to [facility]. (3) Acquired thrombocytopenia: Plan: Worsening platelets to 51 K today. No evidence of bleeding. Lovenox and checking for any platelet antibodies. (4) Cellulitis of right leg: Plan: Completed linezolid course as above. (5) Venous stasis ulcers: Plan: She has chronic LE wounds for which she is following with wound care but she has been told that until the fluid overload is improved, her wounds will be unlikely to heal. some superficial Right leg cellulitis with extensive antibiotic allergy noted. Treated with a 7 day course of linezolid Dressing as per wound care which are currently in place. Advised to keep the legs elevated while in bed (6) Tinea corporis: Plan: Rash on left knee seems most consistent with tinea corporis - Started clotrimazole 1% cream BID for a 14 days course -completed 14 day course with clotrimazole cream -still some evidence of rash present -will check LFTs while considering additional cream. (7) Chronic kidney disease, stage 3: Plan: Chronic, stable despite aggressive diuresis. (8) Diabetes mellitus, type 2: Plan: Chronic, stable. Continue basal bolus insulin. Currently euglycemic. Will update A1c. (9) Hypothyroidism: Plan: Chronic, stable. Continue thyroid replacement as ordered (10) Sleep apnea: Plan: Reports insomnia is somewhat associated with not having her home mask. CPAP home device now in room (11) Rheumatoid arthritis: Plan: chronic, stable. Methotrexate currently on hold due to leg wounds - will continue prednisone and plaquenil Remains free from any significant arthritic pain (12) Iron deficiency anemia: Plan: chronic, stable. Cont current therapy. (13) Hepatocellular carcinoma: Plan: chronic. Dx with HCC in 2019 after MRI which noted a liver lesion 3.7cm x 3.5 cm. A biopsy in 2018 was negative for malignancy. A followup MRI in August 2019 showed the mass had increased in size. FNA liver performed and consistent with HCC. Underwent bland embolization on 11/02/2019 Followup MRI September 2020 showed progression Repeat bland embolization on 11/14/20 Per oncology she continues to be at risk for recurrent/metastatic disease There was a recent CT scan showing two new lesions and she underwent another embolization on 10/28/22 Current plan is to do a followup CT scan in 4 months. (14) Morbid obesity: Plan: Lifestyle changes recommended, BMI 48. (15) Blindness: Plan: Assist with ADLs and IADLs as needed. Code status: Full code but no prolonged heroic measures. Son is her POA DVT Prophylaxis: held in setting of worsening thrombocytopenia. Disposition-- Evaluated by PT/OT, rehab recommended with plans for [facility], however, Cardiology considering inpatient transfer for TAVR. I spent a total [id number] coordinating, documenting, and providing care for this patient excluding time spent in the performance of separately billed services Yola Webb DO [facility] and [facility]ticipated Discharge Date Admission Date: November 05, 2022 Subjective 72-year-old female admitted for acute on chronic combined systolic diastolic heart failure secondary to severe aortic stenosis. Feels imprved today she was able to get more sleep last night spent today visiting with friends cheerful Review of Systems Review of Systems: All systems were reviewed and negative except as indicated on subjective above. Physical Exam Physical Exam: CONSTITUTIONAL: morbidly obese, vitals as above, generally well-appearing, NAD EYES: eyes closed, low vision patient. ENT: external ear and nose normal, MMM NECK: trachea midline RESPIRATORY: clear to auscultation bilaterally, no crackles, rales or wheezes, normal respiratory effort CARDIOVASCULAR: regular rate and rhythm, 3/6 MILES throughout precordium, no gallops or rubs, no JVD, 3+ pitting edema to thighs bilaterally. : matute in place. CHEST: inspection of chest was normal GASTROINTESTINAL: soft, nontender, ND, protuberant, no guarding MUSCULOSKELETAL: moves extremities equally, generalized weakness, head is normocephalic and atraumatic SKIN: warm and dry NEUROLOGIC: CN 2-12 grossly intact, no sensory deficit, normal cognition, normal speech, no tremor PSYCHIATRIC: alert cooperative and oriented to person, place and time. Euthymic mood, makes good eye contact, language grossly intact, recent and remote memory grossly intact. Results & Data Results & Data Vital Signs (Past 12 Hours) Vital Signs Temp Pulse Pulse Resp BP Pulse Ox O2 Del Method 11/20/22 15:53 36.4 C L 84 18 108/72 98 Room Air 11/20/22 08:00 78 11/20/22 11:26 36.8 C 73 18 94/65 L 92 Room Air 11/20/22 07:32 36.4 C 78 18 102/67 95 Room Air Laboratory Results Short CBC 11/20/22 Range/Units 06:14 WBC 7.77 (4.8-10.8) K/ul Hgb 10.3 L (12.0-16.0) g/dl Hct 32.8 L (37.0-47.0) % Plt Count 63 L (130-400) K/uL BMP 11/20/22 06:09 Sodium 143 Potassium 3.6 D Chloride 95 L Carbon Dioxide 40 H BUN 34 H Creatinine 1.14 Glucose 106 H Calcium 9.8 Medications Administered Current Inpatient Medications Acetaminophen (Acetaminophen 325 Mg Tab) 650 mg PO Q4H PRN PRN Reason: Pain or Fever Stop: 12/05/22 18:39 Last Admin: 11/06/22 08:40 Dose: 650 mg Acetaminophen (Acetaminophen 500 Mg Tab) 1,000 mg PO HS [facility]BY Stop: 12/05/22 20:59 Last Admin: 11/19/22 21:12 Dose: 1,000 mg Al Hydrox/Mg Hydrox/Simethicone (Aluminum/Magnesium/Simeth (Maalox Max) 30 Ml Udc) 30 ml PO Q6H PRN PRN Reason: Heartburn Stop: 12/13/22 19:30 Last Admin: 11/19/22 21:29 Dose: 30 ml Lipase/Protease/Amylase (Pancreaze (Lipase 10,500u) Cap) 2 cap PO QIDM [facility] Stop: 12/05/22 20:59 Last Admin: 11/20/22 12:59 Dose: 2 cap Lipase/Protease/Amylase (Pancreaze (Lipase 4,200u) Cap) 1 cap PO QIDM [facility] Stop: 12/05/22 20:59 Last Admin: 11/20/22 12:59 Dose: 1 cap Ascorbic Acid (Ascorbic Acid 500 Mg Tab) 500 mg PO QAM [facility] Stop: 12/06/22 08:59 Last Admin: 11/20/22 08:29 Dose: 500 mg Aspirin (Aspirin 81 Mg Ectab) [facility] Stop: 12/06/22 08:59 Last Admin: 11/20/22 08:49 Dose: 81 mg Atorvastatin Calcium (Atorvastatin 40 Mg Tab) 40 mg PO HS [facility] Stop: 12/05/22 20:59 Last Admin: 11/19/22 21:16 Dose: 40 mg Betaxolol HCl (Betaxolol Hcl 0.5% Op 5 Ml Btl) 1 drops OPL AMHS [facility] Stop: 12/05/22 20:59 Last Admin: 11/20/22 08:32 Dose: 1 drops Brimonidine Tartrate (Brimonidine Tartrate 0.2% 5ml) 1 drops OPL BID [facility] Stop: 12/05/22 20:59 Last Admin: 11/20/22 08:31 Dose: 1 drops Calcium Carbonate (Calcium Carbonate 500 Mg Chewable Tab) 500 mg PO QID PRN PRN Reason: Indigestion Stop: 12/09/22 18:41 Clopidogrel Bisulfate (Clopidogrel Bisulfate 75 Mg Tab) 75 mg [facility] [place] Stop: 12/06/22 08:59 Last Admin: 11/20/22 08:29 Dose: 75 mg Cyanocobalamin (Cyanocobalamin (B-12) 500 Mcg Tablet) 1,500 mcg PO QPM [facility] Stop: 12/05/22 20:59 Last Admin: 11/19/22 21:15 Dose: 1,500 mcg Dextrose (Dextrose 50% 50 Ml Syringe) 25 - 50 ml IV UD PRN; Protocol PRN Reason: Hypoglycemia Protocol Stop: 12/05/22 17:38 Enoxaparin Sodium (Enoxaparin Inj 40 Mg/0.4 Ml Syr) 40 mg SQ QAM [facility] Stop: 12/06/22 08:59 Last Admin: 11/18/22 09:06 Dose: 40 mg Erythromycin (Erythromycin Op Oint 5 Mg/Gm 3.5 Gm Tube) 1 appln OP QID [facility] Stop: 11/25/22 21:44 Last Admin: 11/20/22 13:00 Dose: 1 appln Ferrous Sulfate (Ferrous Sulfate 325 Mg Tab) 325 mg PO DAILY [facility] Stop: 12/06/22 08:59 Last Admin: 11/20/22 08:28 Dose: 325 mg Fluticasone Propionate (Fluticasone Propionate Na Spr 16 Gm Btl) 2 sprays NA QAM [facility] Stop: 12/06/22 08:59 Last Admin: 11/20/22 08:28 Dose: 2 sprays Folic Acid (Folic Acid 1 Mg Tab) 1 mg PO QAM [facility] Stop: 12/06/22 08:59 Last Admin: 11/20/22 08:26 Dose: 1 mg Gabapentin (Gabapentin 400 Mg Cap) 400 mg PO TID [facility] Stop: 12/05/22 20:59 Last Admin: 11/20/22 14:46 Dose: 400 mg Glucagon (Glucagon For Inj 1 Mg Vial) 1 mg SQ UD PRN; Protocol PRN Reason: Hypoglycemia Protocol Stop: 12/05/22 17:38 Glucose (Glucose 10 Tab/Tube) 4 - 8 tab PO UD PRN; Protocol PRN Reason: Hypoglycemia Treatment Stop: 12/05/22 17:38 Glucose (Glucose 40% Gel 15 Gm Tube) 15 - 30 gm PO UD PRN; Protocol PRN Reason: Hypoglycemia Protocol Stop: 12/05/22 17:38 Hydroxychloroquine Sulfate (Hydroxychloroquine Sulfate 200 Mg Tab) 400 mg PO HS [facility] Stop: 12/05/22 20:59 Last Admin: 11/19/22 21:15 Dose: 400 mg Furosemide 100 mg/ Dextrose 100 mls @ 40 mls/hr IV .Q2H30M [facility] Stop: 12/13/22 10:29 Last Admin: 11/20/22 14:27 Dose: 30 mg/hr, 30 mls/hr Promethazine HCl 12.5 mg/ (Sodium Chloride) 50.5 mls @ 202 mls/hr IV Q6H PRN PRN Reason: Nausea And Vomiting Stop: 12/15/22 00:06 Last Infusion: 11/15/22 02:00 Dose: Infused Insulin Aspart (Insulin Aspart Per Unit Charge) 0 units SC ACHS [facility] Stop: 12/05/22 20:59 Last Admin: 11/20/22 12:35 Dose: 14 units Insulin Glargine (Lantus Per Unit Charge) 10 units SQ BID [facility] Stop: 12/11/22 20:59 Last Admin: 11/20/22 08:48 Dose: 10 units Lactobacillus Acidophilus (Advanced Probiotic 1250 Mg Capsule) 1 cap PO QAM [facility] Stop: 12/06/22 08:59 Last Admin: 11/20/22 08:26 Dose: 1 cap Latanoprost (Latanoprost 0.005% Op Soln 2.5 Ml Btl) 1 drops OPB [facility] Stop: 12/05/22 20:59 Last Admin: 11/19/22 21:17 Dose: 1 drops Levothyroxine Sodium (Levothyroxine Sodium 125 Mcg Tablet) 125 mcg PO DAILYBB [facility] Stop: 12/06/22 06:29 Last Admin: 11/20/22 06:23 Dose: 125 mcg Loperamide HCl (Loperamide Hcl 2 Mg Cap) 2 mg PO Q3H PRN PRN Reason: Diarrhea Stop: 12/13/22 09:45 Last Admin: 11/15/22 17:19 Dose: 2 mg Lorazepam (Lorazepam 0.5 Mg Tab) 0.5 mg PO TID PRN PRN Reason: Anxiety Stop: 12/05/22 19:50 Last Admin: 11/19/22 23:28 Dose: 0.5 mg Magnesium Oxide (Magnesium Oxide 400 Mg Tab) 400 mg PO BID [facility] Stop: 12/06/22 20:59 Last Admin: 11/20/22 08:27 Dose: 400 mg Melatonin (Melatonin 3 Mg Tab) 6 mg PO HS [facility] Stop: 12/05/22 20:59 Last Admin: 11/19/22 23:27 Dose: 6 mg Menthol (Cough Drop (Sugar Free) Rob 24 Rob/1 Box) 1 rob BUCCAL TID PRN PRN Reason: Sore Throat Stop: 12/11/22 22:49 Last Admin: 11/11/22 23:23 Dose: 1 rob Metoprolol Succinate (Metoprolol Succ 25mg Ext Rel Tab) 12.5 mg [facility] Stop: 12/18/22 08:59 Last Admin: 11/20/22 08:26 Dose: 12.5 mg Miscellaneous (Carbohydrates For Hypoglycemia ) 15 - 30 gm PO UD PRN PRN Reason: Hypoglycemia Protocol Stop: 12/05/22 17:38 Multivitamins/Minerals (Cerovite Adv Formula Tab) 1 tab PO [facility]AGREAT [facility] Stop: 12/06/22 08:59 Last Admin: 11/20/22 08:27 Dose: 1 tab Netarsudil (Netarsudil Mesylate 37 Drops/2.5 Ml Btl) 1 drops OPL [facility] Stop: 12/06/22 20:59 Last Admin: 11/19/22 21:17 Dose: 1 drops Nitroglycerin (Nitroglycerin Sl 0.4 Mg/Tab Tab) 0.4 mg SL Q5M PRN PRN Reason: Chest Pain Stop: 12/05/22 18:39 Nystatin (Nystatin Powder 15gm Btl) 1 appln EXT TID PRN PRN Reason: irritation Stop: 12/05/22 19:50 Last Admin: 11/07/22 21:52 Dose: 1 appln Pantoprazole Sodium (Pantoprazole 40 Mg Tab) 40 mg [facility] [place] Stop: 12/06/22 08:59 Last Admin: 11/20/22 08:26 Dose: 40 mg Potassium Chloride (Potassium Chloride Crtab 20 Meq Tabcr) 60 meq PO TIDM [facility] Stop: 12/17/22 11:59 Last Admin: 11/20/22 12:58 Dose: 60 meq Prednisone (Prednisone 5 Mg Tab) 5 mg [facility] [place] Stop: 12/06/22 08:59 Last Admin: 11/20/22 08:26 Dose: 5 mg Spironolactone (Spironolactone 25 Mg Tab) 25 mg PO DAILY [facility] Stop: 12/13/22 07:59 Last Admin: 11/20/22 08:27 Dose: 25 mg Tamsulosin HCl (Tamsulosin Hcl 0.4 Mg Cap) 0.4 mg PO [facility] Stop: 12/05/22 20:59 Last Admin: 11/19/22 21:15 Dose: 0.4 mg
[2022-11-20] MEDS: HYDROXYCHLOROQUINE SULFATE 200 MG TAB PO SCH (20:30)
[2022-11-20] MEDS: ATORVASTATIN 40 MG TAB PO SCH (20:30)
[2022-11-20] MEDS: CYANOCOBALAMIN (B-12) 500 MCG TABLET PO SCH (20:31)
[2022-11-20] MEDS: ACETAMINOPHEN 500 MG TAB PO SCH (20:31)
[2022-11-20] MEDS: TAMSULOSIN HCL 0.4 MG CAP PO SCH (20:31)
[2022-11-20] MEDS: LATANOPROST 0.005% OP SOLN 2.5 ML BTL OPB SCH (20:32)
[2022-11-20] MEDS: NETARSUDIL MESYLATE 37 DROPS/2.5 ML BTL OPL SCH (20:32)
[2022-11-20] MEDS: ALUMINUM/MAGNESIUM/SIMETH (MAALOX MAX) 30 ML UDC PO PRN (20:34)
[2022-11-20] MEDS: LORazepam 0.5 MG TAB PO PRN (23:36)
[2022-11-20] MEDS: MELATONIN 3 MG TAB PO SCH (23:36)
[2022-11-21] MEDS: FUROSEMIDE 100 MG in DEXTROSE 5% 90 ML IV SCH ×9 (00:57→22:47)
[2022-11-21] MEDS: LEVOTHYROXINE SODIUM 125 MCG TABLET PO SCH (05:45)
[2022-11-21 08:22] LABS: Hematocrit (blood only) 34.8 % (37.0-47.0); Mean Corpuscular Hemoglobin 27.5 pg (25.0-34.0); Mean Corpuscular Hgb Conc 31.6 g/dL (32.0-36.0); Platelet Count 82 K/uL (130-400); RDW Coefficient of Variation 17.5 % (11.5-14.5); RDW Standard Deviation 53.8 fL (36.4-46.3); White Blood Count 9.35 K/ul (4.8-10.8)
[2022-11-21] MEDS: ASPIRIN 81 MG ECTAB PO SCH (08:31)
[2022-11-21] MEDS: METOPROLOL SUCC 25MG EXT REL TAB PO SCH (08:32)
[2022-11-21] MEDS: SPIRONOLACTONE 25 MG TAB PO SCH (08:32)
[2022-11-21] MEDS: POTASSIUM CHLORIDE CRTAB 20 MEQ TABCR PO SCH ×3 (08:32→18:00)
[2022-11-21] MEDS: MAGNESIUM OXIDE 400 MG TAB PO SCH ×2 (08:32→20:58)
[2022-11-21] MEDS: CLOPIDOGREL BISULFATE 75 MG TAB PO SCH (08:33)
[2022-11-21] MEDS: FOLIC ACID 1 MG TAB PO SCH (08:33)
[2022-11-21] MEDS: CEROVITE ADV FORMULA TAB PO SCH (08:33)
[2022-11-21] MEDS: GABAPENTIN 400 MG CAP PO SCH ×3 (08:33→21:00)
[2022-11-21] MEDS: FERROUS SULFATE 325 MG TAB PO SCH (08:33)
[2022-11-21] MEDS: predniSONE 5 MG TAB PO SCH (08:34)
[2022-11-21] MEDS: PANTOprazole 40 MG TAB PO SCH (08:34)
[2022-11-21] MEDS: PANCREAZE (LIPASE 4,200U) CAP PO SCH ×4 (08:34→20:59)
[2022-11-21] MEDS: ADVANCED PROBIOTIC 1250 MG CAPSULE PO SCH (08:34)
[2022-11-21] MEDS: ASCORBIC ACID 500 MG TAB PO SCH (08:34)
[2022-11-21] MEDS: ERYTHROMYCIN OP OINT 5 MG/GM 3.5 GM TUBE OP SCH ×4 (08:35→20:57)
[2022-11-21] MEDS: BRIMONIDINE TARTRATE 0.2% 5ML OPL SCH ×2 (08:35→21:01)
[2022-11-21] MEDS: BETAXOLOL HCL 0.5% OPL SCH ×2 (08:35→21:01)
[2022-11-21] MEDS: FLUTICASONE PROPIONATE NA SPR 16 GM BTL SCH (08:35)
[2022-11-21] MEDS: PANCREAZE (LIPASE 10,500U) CAP PO SCH ×4 (08:35→21:00)
[2022-11-21] MEDS: LANTUS PER UNIT CHARGE SQ SCH ×2 (08:49→20:56)
[2022-11-21] MEDS: INSULIN ASPART PER UNIT CHARGE SC SCH ×4 (08:49→20:55)
--- NOTE | 2022-11-21 08:53 | Cardiology Progress Note ---
Date of Service November 21, 2022 Assessment & Plan (1) Acute on chronic combined systolic (congestive) and diastolic (congestive) heart failure: (2) Aortic stenosis: Plan 72 year old female with ischemic heart disease and severe aortic stenosis admitted with acute decompensated right greater than left biventricular congestive heart failure signs/symptoms, HFrEF, anasarca. Patient remains volume overload. RECOMMENDATIONS: Continue IV furosemide infusion at 10 mg/hr, reduced dose of beta-gio therapy. Continue spironolactone 25 mg/day. Supplement potassium orally, additional 40 mEq this AM Note: Off ACEI/ARB secondary to hypotension Follow daily weights, fluid balance, GFR, and electrolytes. Patient is not chronically anticoagulated due to bleeding risk. Continue dual antiplatelet therapy with history of drug-eluting stent implantation to the mid LAD March 2022. Evaluation of severe versus pseudo-aortic stenosis with transesophageal echocardiogram and dobutamine stress echocardiography planned as an outpatient. Admission and Anticipated Discharge Date Admission Date: November 05, 2022 Supervising Physician Co-Signing Physician Notes Attending Staff: Pt was seen and evaluated with [facility] staff. 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 Case reviewed Markedly volume overloaded + JVP 18 cmH20 S1 - murmur - Muted S2 Decreased BS at Right base + Abdominal Wall Edema +3 Bilateral LE edema extending to the inguinal folds Pt is making progress with volume Degree of volume overload is severe but improving Plan: Aggressive diuresis Continue Lasix infusion to 40 mg IV/hr (max) Potential Zaroxolyn on 11/22/2022 - Creatinine trending up Weight 118 kg - was 121 KG (Standing) MARIXA - OFF Continue Toprol XL 12.5 mg po per day; HR 78 BID electrolyte check K+ goal 4.5-5 KCL 60 meq po TID Supplemental K+ as needed to achieve goal Continue Aldactone 25 mg po per day Mag goal >2 STANDING WEIGHT DAILY + Stent Continue ASA 81 mg po per day Continue Plavix 75 mg po per day Continue Lipitor 40 mg po per day LDL (PENDING) Plans for TAVR evaluation @ [facility] [place] Pt may need to be Transferred to [facility] for further evaluation and management of acute on chronic combined heart failure Need to investigate issues re: Liver prior to transfer. May need a prognosis re: Liver pathology Pt is agreeable to transfer if needed Mobilize patient Dylan Saravia Subjective Events Overnight: * Diuresis continued Subjective: * No complaints * Feels that breathing has improved Review of Systems Review of Systems: All systems reviewed & are unremarkable except as noted in HPI & below Complete review of systems is otherwise as stated above, negative, noncontributory Physical Exam Physical Exam: General: Alert, no distress, well nourished, well developed, comfortable and cooperative HENT: Normocephalic. Atraumatic. Neck: + JVD. - 14 cmH20 Heart: Distant heart sounds. Regular at 76 bpm. Grade II/ systolic murmur. Lungs: Decreased at the bases. Bibasilar rales. No wheeze. Abdomen: +BS. Distended. Nontender. No masses. Abdominal wall edema - improving but still present Extremities: 1+ pitting edema, diffuse. No clubbing. No cyanosis Skin: chronic venous changes Limited neurological examination: No focal deficit. Results & Data Vital Signs (Past 12 Hours) Vital Signs Temp Pulse Pulse Resp BP Pulse Ox O2 Del Method 11/21/22 07:33 36.4 C L 79 18 114/72 94 Room Air 11/21/22 03:17 36.6 C 84 20 107/68 93 CPAP 11/20/22 23:26 36.6 C 18 89/51 L 94 Room Air 11/20/22 22:59 84 11/20/22 22:51 Room Air Laboratory Results Cardiac Enzymes 11/21/22 Range/Units 07:53 AST 31 (13-39) U/L CBC 11/21/22 Range/Units 07:53 WBC 9.35 (4.8-10.8) K/ul RBC 4.00 L (4.20-5.40) M/uL Hgb 11.0 L (12.0-16.0) g/dl Hct 34.8 L (37.0-47.0) % Plt Count 82 L (130-400) K/uL Comprehensive Metabolic Panel 11/21/22 Range/Units 07:53 Sodium 140 (136-145) mmol/L Potassium 4.5 D (3.5-5.1) mmol/L Chloride 90 L (98-107) mmol/L BUN 36 H (6-23) mg/dl Creatinine 1.21 H (0.6-1.2) mg/dl Glucose 175 H (70-99(Fasting)) mg/dl Calcium 10.1 (8.6-10.3) mg/dl AST 31 (13-39) U/L ALT 34 (7-52) U/L Alkaline Phosphatase 182 H (34-104) U/L Total Protein 6.1 (6.0-8.3) gm/dl Albumin 3.5 (3.4-5.0) gm/dl Intake and Output 11/20/22 11/21/22 11/21/22 22:59 06:59 14:59 Intake Total 908.5 / 1997.5 800 / 1997.5 100 / 100 Output Total 3150 / 6800 2250 / 6800 Balance -2241.5 / -4802.5 -1450 / -4802.5 100 / 100 Intake: IV 198.5 / 687.5 200 / 687.5 100 / 100 Furosemide 100 mg In Dextrose 5 198.5 / 667.5 200 / 667.5 100 / 100 % 90 ml @ 40 MG/HR 40 mls/hr IV .Q2H30M [facility] Rx#:[id number] Oral 710 / 1310 600 / 1310 Output: Urine Amount (Catheter) 3150 / 6800 2250 / 6800 Red/Indwelling 3150 / 6800 2250 / 6800 Other: Weight 118.8 kg Weight Measurement Method Standing Scale Medications Administered Current Inpatient Medications Acetaminophen (Acetaminophen 325 Mg Tab) 650 mg PO Q4H PRN PRN Reason: Pain or Fever Stop: 12/05/22 18:39 Last Admin: 11/06/22 08:40 Dose: 650 mg Acetaminophen (Acetaminophen 500 Mg Tab) 1,000 mg PO HS [facility]BY Stop: 12/05/22 20:59 Last Admin: 11/20/22 20:31 Dose: 1,000 mg Al Hydrox/Mg Hydrox/Simethicone (Aluminum/Magnesium/Simeth (Maalox Max) 30 Ml Udc) 30 ml PO Q6H PRN PRN Reason: Heartburn Stop: 12/13/22 19:30 Last Admin: 11/20/22 20:34 Dose: 30 ml Lipase/Protease/Amylase (Pancreaze (Lipase 10,500u) Cap) 2 cap PO QIDM [facility]BY Stop: 12/05/22 20:59 Last Admin: 11/21/22 08:35 Dose: 2 cap Lipase/Protease/Amylase (Pancreaze (Lipase 4,200u) Cap) 1 cap PO QIDM [facility] Stop: 12/05/22 20:59 Last Admin: 11/21/22 08:34 Dose: 1 cap Ascorbic Acid (Ascorbic Acid 500 Mg Tab) 500 mg PO QAM [facility] Stop: 12/06/22 08:59 Last Admin: 11/21/22 08:34 Dose: 500 mg Aspirin (Aspirin 81 Mg Ectab) 81 mg PO QAM [facility] Stop: 12/06/22 08:59 Last Admin: 11/21/22 08:31 Dose: 81 mg Atorvastatin Calcium (Atorvastatin 40 Mg Tab) 40 mg PO HS [facility] Stop: 12/05/22 20:59 Last Admin: 11/20/22 20:30 Dose: 40 mg Betaxolol HCl (Betaxolol Hcl 0.5% Op 5 Ml Btl) 1 drops OPL [facility] Stop: 12/05/22 20:59 Last Admin: 11/21/22 08:35 Dose: 1 drops Brimonidine Tartrate (Brimonidine Tartrate 0.2% 5ml) 1 drops OPL BID [facility] Stop: 12/05/22 20:59 Last Admin: 11/21/22 08:35 Dose: 1 drops Calcium Carbonate (Calcium Carbonate 500 Mg Chewable Tab) 500 mg PO QID PRN PRN Reason: Indigestion Stop: 12/09/22 18:41 Clopidogrel Bisulfate (Clopidogrel [facility]ulfate 75 Mg Tab) [facility] Stop: 12/06/22 08:59 Last Admin: 11/21/22 08:33 Dose: 75 mg Cyanocobalamin (Cyanocobalamin (B-12) 500 Mcg Tablet) 1,500 mcg PO QPM [facility] Stop: 12/05/22 20:59 Last Admin: 11/20/22 20:31 Dose: 1,500 mcg Dextrose (Dextrose 50% 50 Ml Syringe) 25 - 50 ml IV UD PRN; Protocol PRN Reason: Hypoglycemia Protocol Stop: 12/05/22 17:38 Enoxaparin Sodium (Enoxaparin Inj 40 Mg/0.4 Ml Syr) 40 mg SQ QAM [facility] Stop: 12/06/22 08:59 Last Admin: 11/18/22 09:06 Dose: 40 mg Erythromycin (Erythromycin Op Oint 5 Mg/Gm 3.5 Gm Tube) 1 appln OP QID [facility] Stop: 11/25/22 21:44 Last Admin: 11/21/22 08:35 Dose: 1 appln Ferrous Sulfate (Ferrous Sulfate 325 Mg Tab) 325 mg PO DAILY [facility] Stop: 12/06/22 08:59 Last Admin: 11/21/22 08:33 Dose: 325 mg Fluticasone Propionate (Fluticasone Propionate Na Spr 16 Gm Btl) 2 sprays NA QAM [facility] Stop: 12/06/22 08:59 Last Admin: 11/21/22 08:35 Dose: 2 sprays Folic Acid (Folic Acid 1 Mg Tab) 1 mg PO QAM [facility] Stop: 12/06/22 08:59 Last Admin: 11/21/22 08:33 Dose: 1 mg Gabapentin (Gabapentin 400 Mg Cap) 400 mg PO TID [facility] Stop: 12/05/22 20:59 Last Admin: 11/21/22 08:33 Dose: 400 mg Glucagon (Glucagon For Inj 1 Mg Vial) 1 mg SQ UD PRN; Protocol PRN Reason: Hypoglycemia Protocol Stop: 12/05/22 17:38 Glucose (Glucose 10 Tab/Tube) 4 - 8 tab PO UD PRN; Protocol PRN Reason: Hypoglycemia Treatment Stop: 12/05/22 17:38 Glucose (Glucose 40% Gel 15 Gm Tube) 15 - 30 gm PO UD PRN; Protocol PRN Reason: Hypoglycemia Protocol Stop: 12/05/22 17:38 Hydroxychloroquine Sulfate (Hydroxychloroquine Sulfate 200 Mg Tab) 400 mg PO HS [facility] Stop: 12/05/22 20:59 Last Admin: 11/20/22 20:30 Dose: 400 mg Furosemide 100 mg/ Dextrose 100 mls @ 40 mls/hr IV .Q2H30M [facility] Stop: 12/13/22 10:29 Last Admin: 11/21/22 08:49 Dose: 30 mg/hr, 30 mls/hr Promethazine HCl 12.5 mg/ (Sodium Chloride) 50.5 mls @ 202 mls/hr IV Q6H PRN PRN Reason: Nausea And Vomiting Stop: 12/15/22 00:06 Last Infusion: 11/15/22 02:00 Dose: Infused Insulin Aspart (Insulin Aspart Per Unit Charge) 0 units SC ACHS [facility] Stop: 12/05/22 20:59 Last Admin: 11/21/22 08:49 Dose: 11 units Insulin Glargine (Lantus Per Unit Charge) 10 units SQ BID [facility] Stop: 12/11/22 20:59 Last Admin: 11/21/22 08:49 Dose: 10 units Lactobacillus Acidophilus (Advanced Probiotic 1250 Mg Capsule) 1 cap PO QAM [facility] Stop: 12/06/22 08:59 Last Admin: 11/21/22 08:34 Dose: 1 cap Latanoprost (Latanoprost 0.005% Op Soln 2.5 Ml Btl) 1 drops OPB HS [facility] Stop: 12/05/22 20:59 Last Admin: 11/20/22 20:32 Dose: 1 drops Levothyroxine Sodium (Levothyroxine Sodium 125 Mcg Tablet) 125 mcg PO DAILYBB [facility] Stop: 12/06/22 06:29 Last Admin: 11/21/22 05:45 Dose: 125 mcg Loperamide HCl (Loperamide Hcl 2 Mg Cap) 2 mg PO Q3H PRN PRN Reason: Diarrhea Stop: 12/13/22 09:45 Last Admin: 11/15/22 17:19 Dose: 2 mg Lorazepam (Lorazepam 0.5 Mg Tab) 0.5 mg PO TID PRN PRN Reason: Anxiety Stop: 12/05/22 19:50 Last Admin: 11/20/22 23:36 Dose: 0.5 mg Magnesium Oxide (Magnesium Oxide 400 Mg Tab) 400 mg PO BID [facility] Stop: 12/06/22 20:59 Last Admin: 11/21/22 08:32 Dose: 400 mg Melatonin (Melatonin 3 Mg Tab) 6 mg PO [facility] Stop: 12/05/22 20:59 Last Admin: 11/20/22 23:36 Dose: 6 mg Menthol (Cough Drop (Sugar Free) Rob 24 Rob/1 Box) 1 rob BUCCAL TID PRN PRN Reason: Sore Throat Stop: 12/11/22 22:49 Last Admin: 11/11/22 23:23 Dose: 1 rob Metoprolol Succinate (Metoprolol Succ 25mg Ext Rel Tab) 12.5 mg PO QAM [facility] Stop: 12/18/22 08:59 Last Admin: 11/21/22 08:32 Dose: 12.5 mg Miscellaneous (Carbohydrates For Hypoglycemia ) 15 - 30 gm PO UD PRN PRN Reason: Hypoglycemia Protocol Stop: 12/05/22 17:38 Multivitamins/Minerals (Cerovite Adv Formula Tab) 1 tab PO QAM [facility] Stop: 12/06/22 08:59 Last Admin: 11/21/22 08:33 Dose: 1 tab Netarsudil (Netarsudil Mesylate 37 Drops/2.5 Ml Btl) 1 drops OPL HS [facility] Stop: 12/06/22 20:59 Last Admin: 11/20/22 20:32 Dose: 1 drops Nitroglycerin (Nitroglycerin Sl 0.4 Mg/Tab Tab) 0.4 mg SL Q5M PRN PRN Reason: Chest Pain Stop: 12/05/22 18:39 Nystatin (Nystatin Powder 15gm Btl) 1 appln EXT TID PRN PRN Reason: irritation Stop: 12/05/22 19:50 Last Admin: 11/07/22 21:52 Dose: 1 appln Pantoprazole Sodium (Pantoprazole 40 Mg Tab) 40 mg PO QAM [facility] Stop: 12/06/22 08:59 Last Admin: 11/21/22 08:34 Dose: 40 mg Potassium Chloride (Potassium Chloride Crtab 20 Meq Tabcr) 60 meq PO TIDM [facility] Stop: 12/17/22 11:59 Last Admin: 11/21/22 08:32 Dose: 60 meq Prednisone (Prednisone 5 Mg Tab) 5 mg PO QAM [facility] Stop: 12/06/22 08:59 Last Admin: 11/21/22 08:34 Dose: 5 mg Spironolactone (Spironolactone 25 Mg Tab) 25 mg PO DAILY [facility] Stop: 12/13/22 07:59 Last Admin: 11/21/22 08:32 Dose: 25 mg Tamsulosin HCl (Tamsulosin Hcl 0.4 Mg Cap) 0.4 mg PO HS [facility] Stop: 12/05/22 20:59 Last Admin: 11/20/22 20:31 Dose: 0.4 mg
[2022-11-21 09:31] LABS: Albumin Globulin Ratio 1.3 (0.9-2); Albumin Level 3.5 gm/dl (3.4-5.0); BUN Creatinine Ratio 29.8 (10-20); Bilirubin,Total 1.3 mg/dl (0.2-1.0); Calcium 10.1 mg/dl (8.6-10.3); Creatinine Clr Calc Pharmacy 52.8 ml/min; Est GFR (African American) 51.8 ml/min; Est GFR (Non-African American) 44.7 ml/min; Globulin 2.6 gm/dl (2.5-4.0); Magnesium 2.1 mg/dl (1.7-2.4); Potassium 4.5 mmol/L (3.5-5.1); Total Protein 6.1 gm/dl (6.0-8.3)
[2022-11-21] MEDS ORDERED: CLOTRIMAZOLE 1% CR 15 GM TUBE EXT ONE (10:31)
--- NOTE | 2022-11-21 10:31 | Hospitalist Progress Note ---
Date of Service November 21, 2022 Assessment & Plan (1) Acute on chronic combined systolic (congestive) and diastolic (congestive) heart failure: Plan: 72 y/o with a complicated medical history including combined systolic and diastolic heart failure, CAD s/p PCI with WALTER, aortic stenosis (suspected severe), tachy-wilfrido syndrome s/p PPM in 2021, persistent afib since 07/01, bilateral carotid bruits, insulin-requiring DM, blindness, rheumatoid arthritis, chronic prednisone use, LAQUITA on CPAP, CKD3a, hypothyroidism, HTN, open-angle glaucoma, and recurrent liver cancer s/p recent placement of radiation beads. Presented with progressive shortness of breath over 5 weeks which did not improve even with increasing diuretics Her leg edema has been seeping liquid constantly Started with Lasix 40mg IV BID--> increased to lasix 60mg BID 11/08 40lb over ideal weight Lasix was then increased to 80 mg IV twice daily and added spironolactone 12.5 mg daily with supplemental potassium as needed Intravenous Lasix pushes were changed to a Lasix drip and this is ongoing with increase to drip and additional Lasix IV boluses intermittently cont to monitor strict I/Os, monitordaily standing weight, low salt diet, daily BMP. (2) Aortic stenosis: Plan: TAVR indicated, cardiology [place] [facility] [place] (3) Acquired thrombocytopenia: Plan: No PF4 antibodies found and PLT count is improving. This may have been a secondary thrombocytopenia from recent linezolid use. Consider DVT chemoprophylaxis once this resolves. (4) Cellulitis of right leg: Plan: Completed linezolid course as above. (5) Metabolic alkalosis: Plan: 2/2 diuresis. Cardiology considering zaroxyln. Cont CPAP at night. (6) Venous stasis ulcers: Plan: She has chronic LE wounds for which she is following with wound care but she has been told that until the fluid overload is improved, her wounds will be unlikely to heal. some superficial Right leg cellulitis with extensive antibiotic allergy noted. Treated with a 7 day course of linezolid Dressing as per wound care which are currently in place. Advised to keep the legs elevated while in bed (7) Tinea corporis: Plan: Rash on left knee seems most consistent with tinea corporis - Started clotrimazole 1% cream BID for a 14 days course -completed 14 day course with clotrimazole cream -still some evidence of rash present -LFTs are WNL, bililrubin is improved -clotrimazole cream was restarted and will cont for another two weeks (need to cont 1 week past resolution) (8) Chronic kidney disease, stage 3: Plan: Chronic, stable despite aggressive diuresis. (9) Diabetes mellitus, type 2: Plan: Chronic, stable. Continue basal bolus insulin. Currently euglycemic. Will update A1c. (10) Hypothyroidism: Plan: Chronic, stable. Continue thyroid replacement as ordered (11) Sleep apnea: Plan: Reports insomnia is somewhat associated with not having her home mask. CPAP home device now in room (12) Rheumatoid arthritis: Plan: chronic, stable. Methotrexate currently on hold due to leg wounds - will continue prednisone and plaquenil Remains free from any significant arthritic pain (13) Iron deficiency anemia: Plan: chronic, stable. Cont current therapy. (14) Hepatocellular carcinoma: Plan: chronic. Dx with HCC in 2019 after MRI which noted a liver lesion 3.7cm x 3.5 cm. A biopsy in 2018 was negative for malignancy. A followup MRI in August 2019 showed the mass had increased in size. FNA liver performed and consistent with HCC. Underwent bland embolization on 11/02/2019 Followup MRI September 2020 showed progression Repeat bland embolization on 11/14/20 Per oncology she continues to be at risk for recurrent/metastatic disease There was a recent CT scan showing two new lesions and she underwent another embolization on 10/28/22 Current plan is to do a followup CT scan in 4 months. (15) Morbid obesity: Plan: Lifestyle changes recommended, BMI 48. (16) Blindness: Plan: Assist with ADLs and IADLs as needed. Code status: Full code but no prolonged heroic measures. Son is her POA DVT Prophylaxis: held in setting of worsening thrombocytopenia. Disposition-- Evaluated by PT/OT, rehab recommended with plans for [facility], however, Cardiology considering inpatient transfer for TAVR. I spent a total [id number] coordinating, documenting, and providing care for this patient excluding time spent in the performance of separately billed services Yola Webb DO [facility] Hospitalist Admission and Anticipated Discharge Date Admission Date: November 05, 2022 Subjective 72-year-old female admitted for acute on chronic combined systolic diastolic heart failure secondary to severe aortic stenosis. Feels improved today we chatted about her liver prognosis she shared that after some radiation beads were placed in October she will do another CT scan in a few months. She states she was told she is not a candidate for chemotherapy but may qualify for an alternative unidentified treatment if her cancer metastasizes. spent today visiting with friends cheerful Review of Systems Review of Systems: All systems were reviewed and negative except as indicated on subjective above. Physical Exam Physical Exam: CONSTITUTIONAL: morbidly obese, vitals as above, generally well-appearing, NAD, sitting up in bedside chair. EYES: eyes closed, low vision patient. ENT: external ear and nose normal, MMM NECK: trachea midline RESPIRATORY: normal respiratory effort. CARDIOVASCULAR: 3+ pitting edema to thighs bilaterally. : matute in place. CHEST: inspection of chest was normal GASTROINTESTINAL: soft, nontender, ND, protuberant, no guarding MUSCULOSKELETAL: moves extremities equally, generalized weakness, head is normocephalic and atraumatic SKIN: warm and dry NEUROLOGIC: CN 2-12 grossly intact, no sensory deficit, normal cognition, normal speech, no tremor PSYCHIATRIC: alert cooperative and oriented to person, place and time. Euthymic mood, makes good eye contact, language grossly intact, recent and remote memory grossly intact. Results & Data Results & Data Vital Signs (Past 12 Hours) Vital Signs Temp Pulse Pulse Resp BP Pulse Ox O2 Del Method 11/21/22 07:33 36.4 C L 79 18 114/72 94 Room Air 11/21/22 03:17 36.6 C 84 20 107/68 93 CPAP 11/20/22 23:26 36.6 C 18 89/51 L 94 Room Air 11/20/22 22:59 84 11/20/22 22:51 Room Air Laboratory Results Short CBC 11/21/22 Range/Units 07:53 WBC 9.35 (4.8-10.8) K/ul Hgb 11.0 L (12.0-16.0) g/dl Hct 34.8 L (37.0-47.0) % Plt Count 82 L (130-400) K/uL BMP 11/21/22 07:53 Sodium 140 Potassium 4.5 D Chloride 90 L Carbon Dioxide 45 H* BUN 36 H Creatinine 1.21 H Glucose 175 H Calcium 10.1 Liver Function 11/21/22 Range/Units 07:53 Total Bilirubin 1.3 H (0.2-1.0) mg/dl AST 31 (13-39) U/L ALT 34 (7-52) U/L Alkaline Phosphatase 182 H (34-104) U/L Albumin 3.5 (3.4-5.0) gm/dl Medications Administered Current Inpatient Medications Acetaminophen (Acetaminophen 325 Mg Tab) 650 mg PO Q4H PRN PRN Reason: Pain or Fever Stop: 12/05/22 18:39 Last Admin: 11/06/22 08:40 Dose: 650 mg Acetaminophen (Acetaminophen 500 Mg Tab) 1,000 mg PO HS [facility] Stop: 12/05/22 20:59 Last Admin: 11/20/22 20:31 Dose: 1,000 mg Al Hydrox/Mg Hydrox/Simethicone (Aluminum/Magnesium/Simeth (Maalox Max) 30 Ml Udc) 30 ml PO Q6H PRN PRN Reason: Heartburn Stop: 12/13/22 19:30 Last Admin: 11/20/22 20:34 Dose: 30 ml Lipase/Protease/Amylase (Pancreaze (Lipase 10,500u) Cap) 2 cap PO QIDM [facility] Stop: 12/05/22 20:59 Last Admin: 11/21/22 08:35 Dose: 2 cap Lipase/Protease/Amylase (Pancreaze (Lipase 4,200u) Cap) 1 cap PO QIDM [facility] Stop: 12/05/22 20:59 Last Admin: 11/21/22 08:34 Dose: 1 cap Ascorbic Acid (Ascorbic Acid 500 Mg Tab) 500 mg PO QAM [facility] Stop: 12/06/22 08:59 Last Admin: 11/21/22 08:34 Dose: 500 mg Aspirin (Aspirin 81 Mg Ectab) 81 mg PO QAM [facility] Stop: 12/06/22 08:59 Last Admin: 11/21/22 08:31 Dose: 81 mg Atorvastatin Calcium (Atorvastatin 40 Mg Tab) 40 mg PO HS [facility] Stop: 12/05/22 20:59 Last Admin: 11/20/22 20:30 Dose: 40 mg Betaxolol HCl (Betaxolol Hcl 0.5% Op 5 Ml Btl) 1 drops OPL [facility] Stop: 12/05/22 20:59 Last Admin: 11/21/22 08:35 Dose: 1 drops Brimonidine Tartrate (Brimonidine Tartrate 0.2% 5ml) 1 drops OPL BID [facility] Stop: 12/05/22 20:59 Last Admin: 11/21/22 08:35 Dose: 1 drops Calcium Carbonate (Calcium Carbonate 500 Mg Chewable Tab) 500 mg PO QID PRN PRN Reason: Indigestion Stop: 12/09/22 18:41 Clopidogrel Bisulfate (Clopidogrel Bisulfate 75 Mg Tab) 75 mg PO QAM [facility] Stop: 12/06/22 08:59 Last Admin: 11/21/22 08:33 Dose: 75 mg Cyanocobalamin (Cyanocobalamin (B-12) 500 Mcg Tablet) 1,500 mcg PO QPM [facility] Stop: 12/05/22 20:59 Last Admin: 11/20/22 20:31 Dose: 1,500 mcg Dextrose (Dextrose 50% 50 Ml Syringe) 25 - 50 ml IV UD PRN; Protocol PRN Reason: Hypoglycemia Protocol Stop: 12/05/22 17:38 Enoxaparin Sodium (Enoxaparin Inj 40 Mg/0.4 Ml Syr) 40 mg SQ QAM [facility] Stop: 12/06/22 08:59 Last Admin: 11/18/22 09:06 Dose: 40 mg Erythromycin (Erythromycin Op Oint 5 Mg/Gm 3.5 Gm Tube) 1 appln OP QID [facility] Stop: 11/25/22 21:44 Last Admin: 11/21/22 08:35 Dose: 1 appln Ferrous Sulfate (Ferrous Sulfate 325 Mg Tab) 325 mg PO DAILY [facility] Stop: 12/06/22 08:59 Last Admin: 11/21/22 08:33 Dose: 325 mg Fluticasone Propionate (Fluticasone Propionate Na Spr 16 Gm Btl) 2 sprays NA QAM [facility] Stop: 12/06/22 08:59 Last Admin: 11/21/22 08:35 Dose: 2 sprays Folic Acid (Folic Acid 1 Mg Tab) 1 mg PO QAM [facility] Stop: 12/06/22 08:59 Last Admin: 11/21/22 08:33 Dose: 1 mg Gabapentin (Gabapentin 400 Mg Cap) 400 mg PO TID [facility] Stop: 12/05/22 20:59 Last Admin: 11/21/22 08:33 Dose: 400 mg Glucagon (Glucagon For Inj 1 Mg Vial) 1 mg SQ UD PRN; Protocol PRN Reason: Hypoglycemia Protocol Stop: 12/05/22 17:38 Glucose (Glucose 10 Tab/Tube) 4 - 8 tab PO UD PRN; Protocol PRN Reason: Hypoglycemia Treatment Stop: 12/05/22 17:38 Glucose (Glucose 40% Gel 15 Gm Tube) 15 - 30 gm PO UD PRN; Protocol PRN Reason: Hypoglycemia Protocol Stop: 12/05/22 17:38 Hydroxychloroquine Sulfate (Hydroxychloroquine Sulfate 200 Mg Tab) 400 mg PO HS [facility] Stop: 12/05/22 20:59 Last Admin: 11/20/22 20:30 Dose: 400 mg Furosemide 100 mg/ Dextrose 100 mls @ 40 mls/hr IV .Q2H30M [facility] Stop: 12/13/22 10:29 Last Admin: 11/21/22 08:49 Dose: 30 mg/hr, 30 mls/hr Promethazine HCl 12.5 mg/ (Sodium Chloride) 50.5 mls @ 202 mls/hr IV Q6H PRN PRN Reason: Nausea And Vomiting Stop: 12/15/22 00:06 Last Infusion: 11/15/22 02:00 Dose: Infused Insulin Aspart (Insulin Aspart Per Unit Charge) 0 units SC ACHS [facility] Stop: 12/05/22 20:59 Last Admin: 11/21/22 08:49 Dose: 11 units Insulin Glargine (Lantus Per Unit Charge) 10 units SQ BID [facility] Stop: 12/11/22 20:59 Last Admin: 11/21/22 08:49 Dose: 10 units Lactobacillus Acidophilus (Advanced Probiotic 1250 Mg Capsule) 1 cap PO QAM [facility] Stop: 12/06/22 08:59 Last Admin: 11/21/22 08:34 Dose: 1 cap Latanoprost (Latanoprost 0.005% Op Soln 2.5 Ml Btl) 1 drops OPB HS [facility] Stop: 12/05/22 20:59 Last Admin: 11/20/22 20:32 Dose: 1 drops Levothyroxine Sodium (Levothyroxine Sodium 125 Mcg Tablet) 125 mcg PO DAILYBB [facility] Stop: 12/06/22 06:29 Last Admin: 11/21/22 05:45 Dose: 125 mcg Loperamide HCl (Loperamide Hcl 2 Mg Cap) 2 mg PO Q3H PRN PRN Reason: Diarrhea Stop: 12/13/22 09:45 Last Admin: 11/15/22 17:19 Dose: 2 mg Lorazepam (Lorazepam 0.5 Mg Tab) 0.5 mg PO TID PRN PRN Reason: Anxiety Stop: 12/05/22 19:50 Last Admin: 11/20/22 23:36 Dose: 0.5 mg Magnesium Oxide (Magnesium Oxide 400 Mg Tab) 400 mg PO BID [facility] Stop: 12/06/22 20:59 Last Admin: 11/21/22 08:32 Dose: 400 mg Melatonin (Melatonin 3 Mg Tab) 6 mg PO HS [facility] Stop: 12/05/22 20:59 Last Admin: 11/20/22 23:36 Dose: 6 mg Menthol (Cough Drop (Sugar Free) Rob 24 Rob/1 Box) 1 rob BUCCAL TID PRN PRN Reason: Sore Throat Stop: 12/11/22 22:49 Last Admin: 11/11/22 23:23 Dose: 1 rob Metoprolol Succinate (Metoprolol Succ 25mg Ext Rel Tab) [facility] Stop: 12/18/22 08:59 Last Admin: 11/21/22 08:32 Dose: 12.5 mg Miscellaneous (Carbohydrates For Hypoglycemia ) 15 - 30 gm PO UD PRN PRN Reason: Hypoglycemia Protocol Stop: 12/05/22 17:38 Multivitamins/Minerals (Cerovite Adv Formula Tab) [facility] [place] Stop: 12/06/22 08:59 Last Admin: 11/21/22 08:33 Dose: 1 tab Netarsudil (Netarsudil Mesylate 37 Drops/2.5 Ml Btl) 1 drops OPL [facility] Stop: 12/06/22 20:59 Last Admin: 11/20/22 20:32 Dose: 1 drops Nitroglycerin (Nitroglycerin Sl 0.4 Mg/Tab Tab) 0.4 mg SL Q5M PRN PRN Reason: Chest Pain Stop: 12/05/22 18:39 Nystatin (Nystatin Powder 15gm Btl) 1 appln EXT TID PRN PRN Reason: irritation Stop: 12/05/22 19:50 Last Admin: 11/07/22 21:52 Dose: 1 appln Pantoprazole Sodium (Pantoprazole 40 Mg Tab) [facility] [place] Stop: 12/06/22 08:59 Last Admin: 11/21/22 08:34 Dose: 40 mg Potassium Chloride (Potassium Chloride Crtab 20 Meq Tabcr) 60 meq PO TIDM [facility] Stop: 12/17/22 11:59 Last Admin: 11/21/22 08:32 Dose: 60 meq Prednisone (Prednisone 5 Mg Tab) 5 mg PO QAM [facility] Stop: 12/06/22 08:59 Last Admin: 11/21/22 08:34 Dose: 5 mg Spironolactone (Spironolactone 25 Mg Tab) 25 mg PO DAILY [facility] Stop: 12/13/22 07:59 Last Admin: 11/21/22 08:32 Dose: 25 mg Tamsulosin HCl (Tamsulosin Hcl 0.4 Mg Cap) 0.4 mg PO HS [facility] Stop: 12/05/22 20:59 Last Admin: 11/20/22 20:31 Dose: 0.4 mg
[2022-11-21] MEDS: LOPERAMIDE HCL 2 MG CAP PO PRN ×2 (11:04→23:14)
[2022-11-21] MEDS: CLOTRIMAZOLE 1% CR 15 GM TUBE EXT SCH ×2 (11:57→21:01)
[2022-11-21] MEDS: ALUMINUM/MAGNESIUM/SIMETH (MAALOX MAX) 30 ML UDC PO PRN (20:56)
[2022-11-21] MEDS: MELATONIN 3 MG TAB PO SCH (20:57)
[2022-11-21] MEDS: HYDROXYCHLOROQUINE SULFATE 200 MG TAB PO SCH (20:57)
[2022-11-21] MEDS: ATORVASTATIN 40 MG TAB PO SCH (20:58)
[2022-11-21] MEDS: TAMSULOSIN HCL 0.4 MG CAP PO SCH (20:59)
[2022-11-21] MEDS: ACETAMINOPHEN 500 MG TAB PO SCH (21:00)
[2022-11-21] MEDS: NETARSUDIL MESYLATE 37 DROPS/2.5 ML BTL OPL SCH (21:01)
[2022-11-21] MEDS: LATANOPROST 0.005% OP SOLN 2.5 ML BTL OPB SCH (21:01)
[2022-11-21] MEDS: CYANOCOBALAMIN (B-12) 500 MCG TABLET PO SCH (21:03)
[2022-11-21] MEDS: LORazepam 0.5 MG TAB PO PRN (23:14)
[2022-11-22] MEDS: FUROSEMIDE 100 MG in DEXTROSE 5% 90 ML IV SCH ×9 (01:20→22:52)
[2022-11-22] MEDS: LEVOTHYROXINE SODIUM 125 MCG TABLET PO SCH (06:05)
[2022-11-22 07:26] LABS: BUN Creatinine Ratio 31.2 (10-20); Calcium 9.9 mg/dl (8.6-10.3); Creatinine Clr Calc Pharmacy 50.5 ml/min; Est GFR (African American) 49.8 ml/min; Est GFR (Non-African American) 42.9 ml/min
--- NOTE | 2022-11-22 07:35 | Cardiology Progress Note ---
Date of Service November 22, 2022 Assessment & Plan Admission and Anticipated Discharge Date Admission Date: November 05, 2022 Supervising Physician Co-Signing Physician Notes Attending Staff: Pt was seen and evaluated with [facility] staff. 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 Case reviewed Markedly volume overloaded + JVP 18 cmH20 S1 - murmur - Muted S2 Decreased BS at Right base + Abdominal Wall Edema +3 Bilateral LE edema extending to the inguinal folds Pt is making progress with volume Degree of volume overload is severe but improving Plan: Aggressive diuresis Continue Lasix infusion to 40 mg IV/hr (max) Weight - 116 kg was 118 kg (Standing) MARIXA - OFF Continue Toprol XL 12.5 mg po per day; HR 78 BPM BID electrolyte check K+ goal 4.5-5 KCL 60 meq po TID Additional KDUR 40 meq po x 1 on 11/22/2022 Supplemental K+ as needed to achieve goal Continue Aldactone 25 mg po per day Mag goal >2 STANDING WEIGHT DAILY + Stent Continue ASA 81 mg po per day Continue Plavix 75 mg po per day Continue Lipitor 40 mg po per day LDL (PENDING) Pt may need to be Transferred to [place] for further evaluation and management of acute on chronic combined heart failure Need to investigate issues re: Liver prior to transfer. May need a prognosis re: Liver pathology - appreciate primary care team's work to elucidate prognosis for Liver CA Pt is agreeable to transfer if needed Mobilize patient Frank [facility] Subjective Events Overnight: * None reported * No events on telemetry Subjective: * No complaints * No chest pain * No lightheadedness * No palpitations * Feels that edema is improving Review of Systems Review of Systems: All systems reviewed & are unremarkable except as noted in HPI & below Complete review of systems is otherwise as stated above, negative, noncontributory Physical Exam Physical Exam: General: Alert, no distress, well nourished, well developed, comfortable and c ooperative HENT: Normocephalic. Atraumatic. Neck: + JVD. - 12 cmH20 Heart: Distant heart sounds. Regular at 76 bpm. Grade II/ systolic murmur. Lungs: Decreased at the bases. Bibasilar rales. No wheeze. Abdomen: +BS. Distended. Nontender. No masses. Abdominal wall edema - improving but still present Extremities: 1+ pitting edema, diffuse. No clubbing. No cyanosis Skin: chronic venous changes Limited neurological examination: No focal deficit. Results & Data Vital Signs (Past 12 Hours) Vital Signs Temp Pulse Pulse Resp BP Pulse Ox O2 Del Method 11/22/22 03:39 36.3 C L 75 18 117/70 96 Room Air 11/21/22 23:38 79 11/21/22 22:36 36.9 C 86 18 104/60 95 Room Air Laboratory Results Cardiac Enzymes 11/21/22 Range/Units 07:53 AST 31 (13-39) U/L CBC 11/21/22 Range/Units 07:53 WBC 9.35 (4.8-10.8) K/ul RBC 4.00 L (4.20-5.40) M/uL Hgb 11.0 L (12.0-16.0) g/dl Hct 34.8 L (37.0-47.0) % Plt Count 82 L (130-400) K/uL Comprehensive Metabolic Panel 11/21/22 11/22/22 Range/Units 07:53 06:22 Sodium 140 142 (136-145) mmol/L Potassium 4.5 D 4.0 (3.5-5.1) mmol/L Chloride 90 L 93 L (98-107) mmol/L Carbon Dioxide 45 H* 43 H* (21-32) mmol/L BUN 36 H 39 H (6-23) mg/dl Creatinine 1.21 H 1.25 H (0.6-1.2) mg/dl Glucose 175 H 79 (70-99(Fasting)) mg/dl Calcium 10.1 9.9 (8.6-10.3) mg/dl AST 31 (13-39) U/L ALT 34 (7-52) U/L Alkaline Phosphatase 182 H (34-104) U/L Total Protein 6.1 (6.0-8.3) gm/dl Albumin 3.5 (3.4-5.0) gm/dl Intake and Output 11/21/22 11/22/22 11/22/22 22:59 06:59 14:59 Intake Total 619.5 / 1038.5 219.0 / 1038.5 Output Total 2950 / 4750 1800 / 4750 Balance -2330.5 / -3711.5 -1581.0 / -3711.5 Intake: IV 279.5 / 698.5 219.0 / 698.5 Furosemide 100 mg In Dextrose 5 279.5 / 698.5 219.0 / 698.5 % 90 ml @ 40 MG/HR 40 mls/hr IV .Q2H30M [facility] Rx#:[id number] Oral 340 / 340 Output: Urine Amount (Catheter) 2950 / 4750 1800 / 4750 Red/Indwelling 2950 / 4750 1800 / 4750 Other: Weight 118.8 kg 116.1 kg Weight Measurement Method Standing Scale Medications Administered Current Inpatient Medications Acetaminophen (Acetaminophen 325 Mg Tab) 650 mg PO Q4H PRN PRN Reason: Pain or Fever Stop: 12/05/22 18:39 Last Admin: 11/06/22 08:40 Dose: 650 mg Acetaminophen (Acetaminophen 500 Mg Tab) 1,[address] [facility] Stop: 12/05/22 20:59 Last Admin: 11/21/22 21:00 Dose: 1,000 mg Al Hydrox/Mg Hydrox/Simethicone (Aluminum/Magnesium/Simeth (Maalox Max) 30 Ml Udc) 30 ml PO Q6H PRN PRN Reason: Heartburn Stop: 12/13/22 19:30 Last Admin: 11/21/22 20:56 Dose: 30 ml Lipase/Protease/Amylase (Pancreaze (Lipase 10,500u) Cap) 2 cap PO QIDM [facility] Stop: 12/05/22 20:59 Last Admin: 11/21/22 21:00 Dose: 2 cap Lipase/Protease/Amylase (Pancreaze (Lipase 4,200u) Cap) 1 cap PO QIDM [facility] Stop: 12/05/22 20:59 Last Admin: 11/21/22 20:59 Dose: 1 cap Ascorbic Acid (Ascorbic Acid 500 Mg Tab) [facility] Stop: 12/06/22 08:59 Last Admin: 11/21/22 08:34 Dose: 500 mg Aspirin (Aspirin 81 Mg Ectab) [facility] Stop: 12/06/22 08:59 Last Admin: 11/21/22 08:31 Dose: 81 mg Atorvastatin Calcium (Atorvastatin 40 Mg Tab) [address] [facility] Stop: 12/05/22 20:59 Last Admin: 11/21/22 20:58 Dose: 40 mg Betaxolol HCl (Betaxolol Hcl 0.5% Op 5 Ml Btl) 1 drops OPL [facility] Stop: 12/05/22 20:59 Last Admin: 11/21/22 21:01 Dose: 1 drops Brimonidine Tartrate (Brimonidine Tartrate 0.2% 5ml) 1 drops OPL BID [facility] Stop: 12/05/22 20:59 Last Admin: 11/21/22 21:01 Dose: 1 drops Calcium Carbonate (Calcium Carbonate 500 Mg Chewable Tab) 500 mg PO QID PRN PRN Reason: Indigestion Stop: 12/09/22 18:41 Clopidogrel Bisulfate (Clopidogrel Bisulfate 75 Mg Tab) 75 mg PO QAM [facility] Stop: 12/06/22 08:59 Last Admin: 11/21/22 08:33 Dose: 75 mg Clotrimazole (Clotrimazole 1% Cr 15 Gm Tube) 1 appln EXT BID [facility] Stop: 12/21/22 10:44 Last Admin: 11/21/22 21:01 Dose: 1 appln Cyanocobalamin (Cyanocobalamin (B-12) 500 Mcg Tablet) 1,500 mcg PO QPM [facility] Stop: 12/05/22 20:59 Last Admin: 11/21/22 21:03 Dose: 1,500 mcg Dextrose (Dextrose 50% 50 Ml Syringe) 25 - 50 ml IV UD PRN; Protocol PRN Reason: Hypoglycemia Protocol Stop: 12/05/22 17:38 Enoxaparin Sodium (Enoxaparin Inj 40 Mg/0.4 Ml Syr) 40 mg SQ QAM [facility] Stop: 12/06/22 08:59 Last Admin: 11/18/22 09:06 Dose: 40 mg Erythromycin (Erythromycin Op Oint 5 Mg/Gm 3.5 Gm Tube) 1 appln OP QID [facility] Stop: 11/25/22 21:44 Last Admin: 11/21/22 20:57 Dose: 1 appln Ferrous Sulfate (Ferrous Sulfate 325 Mg Tab) 325 mg PO DAILY [facility] Stop: 12/06/22 08:59 Last Admin: 11/21/22 08:33 Dose: 325 mg Fluticasone Propionate (Fluticasone Propionate Na Spr 16 Gm Btl) 2 sprays NA QAM [facility] Stop: 12/06/22 08:59 Last Admin: 11/21/22 08:35 Dose: 2 sprays Folic Acid (Folic Acid 1 Mg Tab) 1 mg PO QAM [facility] Stop: 12/06/22 08:59 Last Admin: 11/21/22 08:33 Dose: 1 mg Gabapentin (Gabapentin 400 Mg Cap) 400 mg PO TID [facility] Stop: 12/05/22 20:59 Last Admin: 11/21/22 21:00 Dose: 400 mg Glucagon (Glucagon For Inj 1 Mg Vial) 1 mg SQ UD PRN; Protocol PRN Reason: Hypoglycemia Protocol Stop: 12/05/22 17:38 Glucose (Glucose 10 Tab/Tube) 4 - 8 tab PO UD PRN; Protocol PRN Reason: Hypoglycemia Treatment Stop: 12/05/22 17:38 Glucose (Glucose 40% Gel 15 Gm Tube) 15 - 30 gm PO UD PRN; Protocol PRN Reason: Hypoglycemia Protocol Stop: 12/05/22 17:38 Hydroxychloroquine Sulfate (Hydroxychloroquine Sulfate 200 Mg Tab) 400 mg PO HS [facility] Stop: 12/05/22 20:59 Last Admin: 11/21/22 20:57 Dose: 400 mg Furosemide 100 mg/ Dextrose 100 mls @ 40 mls/hr IV .Q2H30M [facility] Stop: 12/13/22 10:29 Last Admin: 11/22/22 06:05 Dose: 30 mg/hr, 30 mls/hr Promethazine HCl 12.5 mg/ (Sodium Chloride) 50.5 mls @ 202 mls/hr IV Q6H PRN PRN Reason: Nausea And Vomiting Stop: 12/15/22 00:06 Last Infusion: 11/15/22 02:00 Dose: Infused Insulin Aspart (Insulin Aspart Per Unit Charge) 0 units SC ACHS [facility] Stop: 12/05/22 20:59 Last Admin: 11/21/22 20:55 Dose: 3 units Insulin Glargine (Lantus Per Unit Charge) 10 units SQ BID [facility] Stop: 12/11/22 20:59 Last Admin: 11/21/22 20:56 Dose: 10 units Lactobacillus Acidophilus (Advanced Probiotic 1250 Mg Capsule) 1 cap PO QAM [facility] Stop: 12/06/22 08:59 Last Admin: 11/21/22 08:34 Dose: 1 cap Latanoprost (Latanoprost 0.005% Op Soln 2.5 Ml Btl) 1 drops OPB HS [facility] Stop: 12/05/22 20:59 Last Admin: 11/21/22 21:01 Dose: 1 drops Levothyroxine Sodium (Levothyroxine Sodium 125 Mcg Tablet) 125 mcg PO DAILYBB [facility] Stop: 12/06/22 06:29 Last Admin: 11/22/22 06:05 Dose: 125 mcg Loperamide HCl (Loperamide Hcl 2 Mg Cap) 2 mg PO Q3H PRN PRN Reason: Diarrhea Stop: 12/13/22 09:45 Last Admin: 11/21/22 23:14 Dose: 2 mg Lorazepam (Lorazepam 0.5 Mg Tab) 0.5 mg PO TID PRN PRN Reason: Anxiety Stop: 12/05/22 19:50 Last Admin: 11/21/22 23:14 Dose: 0.5 mg Magnesium Oxide (Magnesium Oxide 400 Mg Tab) 400 mg PO BID [facility] Stop: 12/06/22 20:59 Last Admin: 11/21/22 20:58 Dose: 400 mg Melatonin (Melatonin 3 Mg Tab) 6 mg PO HS [facility] Stop: 12/05/22 20:59 Last Admin: 11/21/22 20:57 Dose: 6 mg Menthol (Cough Drop (Sugar Free) Rob 24 Rob/1 Box) 1 rob BUCCAL TID PRN PRN Reason: Sore Throat Stop: 12/11/22 22:49 Last Admin: 11/11/22 23:23 Dose: 1 rob Metoprolol Succinate (Metoprolol Succ 25mg Ext Rel Tab) 12.5 mg PO QAM [facility] Stop: 12/18/22 08:59 Last Admin: 11/21/22 08:32 Dose: 12.5 mg Miscellaneous (Carbohydrates For Hypoglycemia ) 15 - 30 gm PO UD PRN PRN Reason: Hypoglycemia Protocol Stop: 12/05/22 17:38 Multivitamins/Minerals (Cerovite Adv Formula Tab) 1 tab PO QAM [facility] Stop: 12/06/22 08:59 Last Admin: 11/21/22 08:33 Dose: 1 tab Netarsudil (Netarsudil Mesylate 37 Drops/2.5 Ml Btl) 1 drops OPL HS [facility] Stop: 12/06/22 20:59 Last Admin: 11/21/22 21:01 Dose: 1 drops Nitroglycerin (Nitroglycerin Sl 0.4 Mg/Tab Tab) 0.4 mg SL Q5M PRN PRN Reason: Chest Pain Stop: 12/05/22 18:39 Nystatin (Nystatin Powder 15gm Btl) 1 appln EXT TID PRN PRN Reason: irritation Stop: 12/05/22 19:50 Last Admin: 11/07/22 21:52 Dose: 1 appln Pantoprazole Sodium (Pantoprazole 40 Mg Tab) 40 mg PO QAM [facility] Stop: 12/06/22 08:59 Last Admin: 11/21/22 08:34 Dose: 40 mg Potassium Chloride (Potassium Chloride Crtab 20 Meq Tabcr) 60 meq PO TIDM [facility] Stop: 12/17/22 11:59 Last Admin: 11/21/22 18:00 Dose: 60 meq Prednisone (Prednisone 5 Mg Tab) 5 mg PO QAM [facility] Stop: 12/06/22 08:59 Last Admin: 11/21/22 08:34 Dose: 5 mg Spironolactone (Spironolactone 25 Mg Tab) 25 mg PO DAILY [facility] Stop: 12/13/22 07:59 Last Admin: 11/21/22 08:32 Dose: 25 mg Tamsulosin HCl (Tamsulosin Hcl 0.4 Mg Cap) 0.4 mg PO HS [facility] Stop: 12/05/22 20:59 Last Admin: 11/21/22 20:59 Dose: 0.4 mg
[2022-11-22 08:16] LABS: Hematocrit (blood only) 34.1 % (37.0-47.0); Hemoglobin 11.2 g/dl (12.0-16.0); Mean Corpuscular Hemoglobin 28.1 pg (25.0-34.0); Mean Corpuscular Hgb Conc 32.8 g/dL (32.0-36.0); Mean Corpuscular Volume 85.5 fL (80.0-100.0); Mean Platelet Volume 12.1 fL (9.4-12.4); Nucleated RBC # (auto) 0.02 K/uL (0-0.12); Nucleated RBC % (auto) 0.2 %; Platelet Count 103 K/uL (130-400); RDW Coefficient of Variation 17.8 % (11.5-14.5); RDW Standard Deviation 53.9 fL (36.4-46.3); Red Blood Count 3.99 M/uL (4.20-5.40); White Blood Count 8.93 K/ul (4.8-10.8)
[2022-11-22] MEDS: LANTUS PER UNIT CHARGE SQ SCH ×2 (08:50→21:33)
[2022-11-22] MEDS: INSULIN ASPART PER UNIT CHARGE SC SCH ×4 (08:51→21:33)
[2022-11-22] MEDS: GABAPENTIN 400 MG CAP PO SCH ×3 (08:53→20:32)
[2022-11-22] MEDS: METOPROLOL SUCC 25MG EXT REL TAB PO SCH (08:53)
[2022-11-22] MEDS: CLOPIDOGREL BISULFATE 75 MG TAB PO SCH (08:54)
[2022-11-22] MEDS: CEROVITE ADV FORMULA TAB PO SCH (08:54)
[2022-11-22] MEDS: PANCREAZE (LIPASE 10,500U) CAP PO SCH ×4 (08:54→20:31)
[2022-11-22] MEDS: SPIRONOLACTONE 25 MG TAB PO SCH (08:54)
[2022-11-22] MEDS: PANCREAZE (LIPASE 4,200U) CAP PO SCH ×4 (08:54→20:29)
[2022-11-22] MEDS: POTASSIUM CHLORIDE CRTAB 20 MEQ TABCR PO SCH ×3 (08:55→16:58)
[2022-11-22] MEDS: FOLIC ACID 1 MG TAB PO SCH (08:55)
[2022-11-22] MEDS: ASCORBIC ACID 500 MG TAB PO SCH (08:55)
[2022-11-22] MEDS: PANTOprazole 40 MG TAB PO SCH (08:55)
[2022-11-22] MEDS: ADVANCED PROBIOTIC 1250 MG CAPSULE PO SCH (08:55)
[2022-11-22] MEDS: ASPIRIN 81 MG ECTAB PO SCH (08:55)
[2022-11-22] MEDS: predniSONE 5 MG TAB PO SCH (08:55)
[2022-11-22] MEDS: MAGNESIUM OXIDE 400 MG TAB PO SCH ×2 (08:56→20:29)
[2022-11-22] MEDS: CLOTRIMAZOLE 1% CR 15 GM TUBE EXT SCH ×2 (08:56→20:33)
[2022-11-22] MEDS: FERROUS SULFATE 325 MG TAB PO SCH (08:56)
[2022-11-22] MEDS: FLUTICASONE PROPIONATE NA SPR 16 GM BTL SCH (08:56)
[2022-11-22] MEDS: ERYTHROMYCIN OP OINT 5 MG/GM 3.5 GM TUBE OP SCH ×4 (08:57→20:33)
[2022-11-22] MEDS: BRIMONIDINE TARTRATE 0.2% 5ML OPL SCH ×2 (08:58→20:20)
[2022-11-22] MEDS: BETAXOLOL HCL 0.5% OPL SCH ×2 (08:58→20:21)
--- NOTE | 2022-11-22 08:59 | Hospitalist Progress Note ---
Date of Service November 22, 2022 Assessment & Plan (1) Acute on chronic combined systolic (congestive) and diastolic (congestive) heart failure: Plan: 72 y/o with a complicated medical history including combined systolic and diastolic heart failure, CAD s/p PCI with WALTER, aortic stenosis (suspected severe), tachy-wilfrido syndrome s/p PPM in 2021, persistent afib since 07/01, bilateral carotid bruits, insulin-requiring DM, blindness, rheumatoid arthritis, chronic prednisone use, LAQUITA on CPAP, CKD3a, hypothyroidism, HTN, open-angle glaucoma, and recurrent liver cancer s/p recent placement of radiation beads. Presented with progressive shortness of breath over 5 weeks which did not improve even with increasing diuretics Her leg edema has been seeping liquid constantly Started with Lasix 40mg IV BID--> increased to lasix 60mg BID 11/08 40lb over ideal weight Lasix was then increased to 80 mg IV twice daily and added spironolactone 12.5 mg daily with supplemental potassium as needed Intravenous Lasix pushes were changed to a Lasix drip and this is ongoing with increase to drip and additional Lasix IV boluses intermittently cont to monitor strict I/Os, monitordaily standing weight, low salt diet, daily BMP. Plans to consider inpatient transfer for TAVR later this week possibly. (2) Aortic stenosis: Plan: TAVR indicated, cardiology considering inpatient transfer to [facility]. (3) Acquired thrombocytopenia: Plan: No PF4 antibodies found and PLT count is improving. This may have been a secondary thrombocytopenia from recent linezolid use. Consider DVT chemoprophylaxis once this resolves. (4) Cellulitis of right leg: Plan: Completed linezolid course as above. (5) Metabolic alkalosis: Plan: 2/2 diuresis. Cardiology considering zaroxyln. Cont CPAP at night. (6) Catheter-associated urinary tract infection: Plan: asymptomatic bacteriuria present after matute catheter placement during this hospital stay. Starting ertapenem given multiple allergies and cont for 7 days. (7) Venous stasis ulcers: Plan: She has chronic LE wounds for which she is following with wound care but she has been told that until the fluid overload is improved, her wounds will be unlikely to heal. some superficial Right leg cellulitis with extensive antibiotic allergy noted. Treated with a 7 day course of linezolid Dressing as per wound care which are currently in place. Advised to keep the legs elevated while in bed (8) Tinea corporis: Plan: Rash on left knee seems most consistent with tinea corporis - Started clotrimazole 1% cream BID for a 14 days course -completed 14 day course with clotrimazole cream -still some evidence of rash present -LFTs are WNL, bililrubin is improved -clotrimazole cream was restarted and will cont for another two weeks (need to cont 1 week past resolution) (9) Chronic kidney disease, stage 3: Plan: Chronic, stable despite aggressive diuresis. (10) Diabetes mellitus, type 2: Plan: Chronic, stable. Continue basal bolus insulin. Currently euglycemic. Will update A1c. (11) Hypothyroidism: Plan: Chronic, stable. Continue thyroid replacement as ordered (12) Sleep apnea: Plan: Reports insomnia is somewhat associated with not having her home mask. CPAP home device now in room (13) Rheumatoid arthritis: Plan: chronic, stable. Methotrexate currently on hold due to leg wounds - will continue prednisone and plaquenil Remains free from any significant arthritic pain (14) Iron deficiency anemia: Plan: chronic, stable. Cont current therapy. (15) Hepatocellular carcinoma: Plan: chronic. Dx with HCC in 2019 after MRI which noted a liver lesion 3.7cm x 3.5 cm. A biopsy in 2018 was negative for malignancy. A followup MRI in August 2019 showed the mass had increased in size. FNA liver performed and consistent with HCC. Underwent bland embolization on 11/02/2019 Followup MRI September 2020 showed progression Repeat bland embolization on 11/14/20 Per oncology she continues to be at risk for recurrent/metastatic disease There was a recent CT scan showing two new lesions and she underwent another embolization on 10/28/22 Current plan is to do a followup CT scan in 4 months. (16) Morbid obesity: Plan: Lifestyle changes recommended, BMI 48. (17) Blindness: Plan: Assist with ADLs and IADLs as needed. Code status: Full code but no prolonged heroic measures. Son is her POA DVT Prophylaxis: held in setting of worsening thrombocytopenia. Disposition-- Evaluated by PT/OT, rehab recommended with plans for [facility], however, Cardiology considering inpatient transfer for TAVR. I spent a total [id number] coordinating, documenting, and providing care for this patient excluding time spent in the performance of separately billed services DO [facility] Hospitalist Admission and Anticipated Discharge Date Admission Date: November 05, 2022 Subjective 72-year-old female admitted for acute on chronic combined systolic diastolic heart failure secondary to severe aortic stenosis. feels well today denies SOB or pain denies any dysuria or issues with her matute outside of the physical presence of the matute afebrile Review of Systems Review of Systems: All systems were reviewed and negative except as indicated on subjective above. Physical Exam Physical Exam: CONSTITUTIONAL: morbidly obese, vitals as above, generally well-appearing, NAD, sitting up in bedside chair. EYES: eyes closed, low vision patient. ENT: external ear and nose normal, MMM NECK: trachea midline RESPIRATORY: normal respiratory effort. CARDIOVASCULAR: 3/6 MILES across precordium, 3+ pitting edema to thighs bilaterally. TEDs in place. : matute in place. CHEST: inspection of chest was normal GASTROINTESTINAL: soft, nontender, ND, protuberant, no guarding MUSCULOSKELETAL: moves extremities equally, generalized weakness, head is normocephalic and atraumatic SKIN: warm and dry, knee fungal infection continues to resolve and is almost gone on the left knee. NEUROLOGIC: CN 2-12 grossly intact, no sensory deficit, normal cognition, normal speech, no tremor PSYCHIATRIC: alert cooperative and oriented to person, place and time. Euthymic mood, makes good eye contact, language grossly intact, recent and remote memory grossly intact. Results & Data Results & Data Vital Signs (Past 12 Hours) Vital Signs Temp Pulse Pulse Resp BP Pulse Ox O2 Del Method 11/22/22 03:39 36.3 C L 75 18 117/70 96 Room Air 11/21/22 23:38 79 11/21/22 22:36 36.9 C 86 18 104/60 95 Room Air Laboratory Results Short CBC 11/22/22 Range/Units 06:22 WBC 8.93 (4.8-10.8) K/ul Hgb 11.2 L (12.0-16.0) g/dl Hct 34.1 L (37.0-47.0) % Plt Count 103 L (130-400) K/uL BMP 11/21/22 11/22/22 07:53 06:22 Sodium 140 142 Potassium 4.5 D 4.0 Chloride 90 L 93 L Carbon Dioxide 45 H* 43 H* BUN 36 H 39 H Creatinine 1.21 H 1.25 H Glucose 175 H 79 Calcium 10.1 9.9 Liver Function 11/21/22 Range/Units 07:53 Total Bilirubin 1.3 H (0.2-1.0) mg/dl AST 31 (13-39) U/L ALT 34 (7-52) U/L Alkaline Phosphatase 182 H (34-104) U/L Albumin 3.5 (3.4-5.0) gm/dl Medications Administered Current Inpatient Medications Acetaminophen (Acetaminophen 325 Mg Tab) 650 mg PO Q4H PRN PRN Reason: Pain or Fever Stop: 12/05/22 18:39 Last Admin: 11/06/22 08:40 Dose: 650 mg Acetaminophen (Acetaminophen 500 Mg Tab) 1,000 mg PO HS [facility] Stop: 12/05/22 20:59 Last Admin: 11/21/22 21:00 Dose: 1,000 mg Al Hydrox/Mg Hydrox/Simethicone (Aluminum/Magnesium/Simeth (Maalox Max) 30 Ml Udc) 30 ml PO Q6H PRN PRN Reason: Heartburn Stop: 12/13/22 19:30 Last Admin: 11/21/22 20:56 Dose: 30 ml Lipase/Protease/Amylase (Pancreaze (Lipase 10,500u) Cap) 2 cap PO QIDM [facility] Stop: 12/05/22 20:59 Last Admin: 11/21/22 21:00 Dose: 2 cap Lipase/Protease/Amylase (Pancreaze (Lipase 4,200u) Cap) 1 cap PO QIDM [facility] Stop: 12/05/22 20:59 Last Admin: 11/21/22 20:59 Dose: 1 cap Ascorbic Acid (Ascorbic Acid 500 Mg Tab) [facility] Stop: 12/06/22 08:59 Last Admin: 11/21/22 08:34 Dose: 500 mg Aspirin (Aspirin 81 Mg Ectab) [facility] Stop: 12/06/22 08:59 Last Admin: 11/21/22 08:31 Dose: 81 mg Atorvastatin Calcium (Atorvastatin 40 Mg Tab) 40 mg PO [facility] Stop: 12/05/22 20:59 Last Admin: 11/21/22 20:58 Dose: 40 mg Betaxolol HCl (Betaxolol Hcl 0.5% Op 5 Ml Btl) 1 drops OPL AMHS [facility] Stop: 12/05/22 20:59 Last Admin: 11/21/22 21:01 Dose: 1 drops Brimonidine Tartrate (Brimonidine Tartrate 0.2% 5ml) 1 drops OPL BID [facility] Stop: 12/05/22 20:59 Last Admin: 11/21/22 21:01 Dose: 1 drops Calcium Carbonate (Calcium Carbonate 500 Mg Chewable Tab) 500 mg PO QID PRN PRN Reason: Indigestion Stop: 12/09/22 18:41 Clopidogrel Bisulfate (Clopidogrel Bisulfate 75 Mg Tab) 75 mg PO QAM [facility] Stop: 12/06/22 08:59 Last Admin: 11/21/22 08:33 Dose: 75 mg Clotrimazole (Clotrimazole 1% Cr 15 Gm Tube) 1 appln EXT BID [facility] Stop: 12/21/22 10:44 Last Admin: 11/21/22 21:01 Dose: 1 appln Cyanocobalamin (Cyanocobalamin (B-12) 500 Mcg Tablet) 1,500 mcg PO QPM [facility] Stop: 12/05/22 20:59 Last Admin: 11/21/22 21:03 Dose: 1,500 mcg Dextrose (Dextrose 50% 50 Ml Syringe) 25 - 50 ml IV UD PRN; Protocol PRN Reason: Hypoglycemia Protocol Stop: 12/05/22 17:38 Enoxaparin Sodium (Enoxaparin Inj 40 Mg/0.4 Ml Syr) 40 mg SQ QAM [facility] Stop: 12/06/22 08:59 Last Admin: 11/18/22 09:06 Dose: 40 mg Erythromycin (Erythromycin Op Oint 5 Mg/Gm 3.5 Gm Tube) 1 appln OP QID [facility] Stop: 11/25/22 21:44 Last Admin: 11/21/22 20:57 Dose: 1 appln Ferrous Sulfate (Ferrous Sulfate 325 Mg Tab) 325 mg PO DAILY [facility] Stop: 12/06/22 08:59 Last Admin: 11/21/22 08:33 Dose: 325 mg Fluticasone Propionate (Fluticasone Propionate Na Spr 16 Gm Btl) 2 sprays NA QAM [facility] Stop: 12/06/22 08:59 Last Admin: 11/21/22 08:35 Dose: 2 sprays Folic Acid (Folic Acid 1 Mg Tab) 1 mg PO QAM [facility] Stop: 12/06/22 08:59 Last Admin: 11/21/22 08:33 Dose: 1 mg Gabapentin (Gabapentin 400 Mg Cap) 400 mg PO TID [facility] Stop: 12/05/22 20:59 Last Admin: 11/21/22 21:00 Dose: 400 mg Glucagon (Glucagon For Inj 1 Mg Vial) 1 mg SQ UD PRN; Protocol PRN Reason: Hypoglycemia Protocol Stop: 12/05/22 17:38 Glucose (Glucose 10 Tab/Tube) 4 - 8 tab PO UD PRN; Protocol PRN Reason: Hypoglycemia Treatment Stop: 12/05/22 17:38 Glucose (Glucose 40% Gel 15 Gm Tube) 15 - 30 gm PO UD PRN; Protocol PRN Reason: Hypoglycemia Protocol Stop: 12/05/22 17:38 Hydroxychloroquine Sulfate (Hydroxychloroquine Sulfate 200 Mg Tab) 400 mg PO HS [facility] Stop: 12/05/22 20:59 Last Admin: 11/21/22 20:57 Dose: 400 mg Furosemide 100 mg/ Dextrose 100 mls @ 40 mls/hr IV .Q2H30M [facility] Stop: 12/13/22 10:29 Last Admin: 11/22/22 06:05 Dose: 30 mg/hr, 30 mls/hr Promethazine HCl 12.5 mg/ (Sodium Chloride) 50.5 mls @ 202 mls/hr IV Q6H PRN PRN Reason: Nausea And Vomiting Stop: 12/15/22 00:06 Last Infusion: 11/15/22 02:00 Dose: Infused Insulin Aspart (Insulin Aspart Per Unit Charge) 0 units SC ACHS [facility] Stop: 12/05/22 20:59 Last Admin: 11/21/22 20:55 Dose: 3 units Insulin Glargine (Lantus Per Unit Charge) 10 units SQ BID [facility] Stop: 12/11/22 20:59 Last Admin: 11/21/22 20:56 Dose: 10 units Lactobacillus Acidophilus (Advanced Probiotic 1250 Mg Capsule) 1 cap PO QAM [facility] Stop: 12/06/22 08:59 Last Admin: 11/21/22 08:34 Dose: 1 cap Latanoprost (Latanoprost 0.005% Op Soln 2.5 Ml Btl) 1 drops OPB [facility] Stop: 12/05/22 20:59 Last Admin: 11/21/22 21:01 Dose: 1 drops Levothyroxine Sodium (Levothyroxine Sodium 125 Mcg Tablet) 125 mcg PO DAILYBB [facility] Stop: 12/06/22 06:29 Last Admin: 11/22/22 06:05 Dose: 125 mcg Loperamide HCl (Loperamide Hcl 2 Mg Cap) 2 mg PO Q3H PRN PRN Reason: Diarrhea Stop: 12/13/22 09:45 Last Admin: 11/21/22 23:14 Dose: 2 mg Lorazepam (Lorazepam 0.5 Mg Tab) 0.5 mg PO TID PRN PRN Reason: Anxiety Stop: 12/05/22 19:50 Last Admin: 11/21/22 23:14 Dose: 0.5 mg Magnesium Oxide (Magnesium Oxide 400 Mg Tab) 400 mg PO BID [facility] Stop: 12/06/22 20:59 Last Admin: 11/21/22 20:58 Dose: 400 mg Melatonin (Melatonin 3 Mg Tab) 6 mg PO HS [facility] Stop: 12/05/22 20:59 Last Admin: 11/21/22 20:57 Dose: 6 mg Menthol (Cough Drop (Sugar Free) Rob 24 Rob/1 Box) 1 rob BUCCAL TID PRN PRN Reason: Sore Throat Stop: 12/11/22 22:49 Last Admin: 11/11/22 23:23 Dose: 1 rob Metoprolol Succinate (Metoprolol Succ 25mg Ext Rel Tab) 12.5 mg PO QAM [facility] Stop: 12/18/22 08:59 Last Admin: 11/21/22 08:32 Dose: 12.5 mg Miscellaneous (Carbohydrates For Hypoglycemia ) 15 - 30 gm PO UD PRN PRN Reason: Hypoglycemia Protocol Stop: 12/05/22 17:38 Multivitamins/Minerals (Cerovite Adv Formula Tab) [facility] Stop: 12/06/22 08:59 Last Admin: 11/21/22 08:33 Dose: 1 tab Netarsudil (Netarsudil Mesylate 37 Drops/2.5 Ml Btl) 1 drops OPL HS [facility] Stop: 12/06/22 20:59 Last Admin: 11/21/22 21:01 Dose: 1 drops Nitroglycerin (Nitroglycerin Sl 0.4 Mg/Tab Tab) 0.4 mg SL Q5M PRN PRN Reason: Chest Pain Stop: 12/05/22 18:39 Nystatin (Nystatin Powder 15gm Btl) 1 appln EXT TID PRN PRN Reason: irritation Stop: 12/05/22 19:50 Last Admin: 11/07/22 21:52 Dose: 1 appln Pantoprazole Sodium (Pantoprazole 40 Mg Tab) 40 mg PO QAM [facility] Stop: 12/06/22 08:59 Last Admin: 11/21/22 08:34 Dose: 40 mg Potassium Chloride (Potassium Chloride Crtab 20 Meq Tabcr) 60 meq PO TIDM [facility] Stop: 12/17/22 11:59 Last Admin: 11/21/22 18:00 Dose: 60 meq Prednisone (Prednisone 5 Mg Tab) 5 mg PO QAM [facility] Stop: 12/06/22 08:59 Last Admin: 11/21/22 08:34 Dose: 5 mg Spironolactone (Spironolactone 25 Mg Tab) 25 mg PO DAILY [facility] Stop: 12/13/22 07:59 Last Admin: 11/21/22 08:32 Dose: 25 mg Tamsulosin HCl (Tamsulosin Hcl 0.4 Mg Cap) 0.4 mg PO HS [facility] Stop: 12/05/22 20:59 Last Admin: 11/21/22 20:59 Dose: 0.4 mg
[2022-11-22] MEDS: LOPERAMIDE HCL 2 MG CAP PO PRN ×2 (13:37→22:51)
[2022-11-22 18:36] LABS: BUN Creatinine Ratio 31.6 (10-20); Calcium 9.7 mg/dl (8.6-10.3); Creatinine Clr Calc Pharmacy 47.4 ml/min; Est GFR (African American) 46.2 ml/min; Est GFR (Non-African American) 39.8 ml/min; Magnesium 2.2 mg/dl (1.7-2.4); Potassium 5.1 mmol/L (3.5-5.1)
[2022-11-22] MEDS: LATANOPROST 0.005% OP SOLN 2.5 ML BTL OPB SCH (20:20)
[2022-11-22] MEDS: NETARSUDIL MESYLATE 37 DROPS/2.5 ML BTL OPL SCH (20:21)
[2022-11-22] MEDS: ATORVASTATIN 40 MG TAB PO SCH (20:29)
[2022-11-22] MEDS: CYANOCOBALAMIN (B-12) 500 MCG TABLET PO SCH (20:30)
[2022-11-22] MEDS: TAMSULOSIN HCL 0.4 MG CAP PO SCH (20:31)
[2022-11-22] MEDS: HYDROXYCHLOROQUINE SULFATE 200 MG TAB PO SCH (20:32)
[2022-11-22] MEDS: ACETAMINOPHEN 500 MG TAB PO SCH (20:32)
[2022-11-22] MEDS: LORazepam 0.5 MG TAB PO PRN (22:49)
[2022-11-22] MEDS: MELATONIN 3 MG TAB PO SCH (22:49)
[2022-11-23] MEDS: FUROSEMIDE 100 MG in DEXTROSE 5% 90 ML IV SCH ×10 (01:26→22:40)
[2022-11-23] MEDS: LEVOTHYROXINE SODIUM 125 MCG TABLET PO SCH (06:10)
[2022-11-23 06:45] LABS: BUN Creatinine Ratio 31.8 (10-20); Calcium 9.6 mg/dl (8.6-10.3); Creatinine Clr Calc Pharmacy 48.9 ml/min; Est GFR (African American) 47.9 ml/min; Est GFR (Non-African American) 41.3 ml/min; Magnesium 2.3 mg/dl (1.7-2.4)
--- NOTE | 2022-11-23 07:53 | Cardiology Progress Note ---
Date of Service November 23, 2022 Assessment & Plan Admission and Anticipated Discharge Date Admission Date: November 05, 2022 Supervising Physician Co-Signing Physician Notes Attending Staff: Pt was seen and evaluated with [facility] staff. 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 Case reviewed Markedly volume overloaded + JVP 18 cmH20 S1 - murmur - Muted S2 Decreased BS at Right base + Abdominal Wall Edema +3 Bilateral LE edema extending to the inguinal folds Pt is making progress with volume Degree of volume overload is severe but improving Plan: Aggressive diuresis Lasix 200 mg IV x 1 Continue Lasix infusion to 40 mg IV/hr (max) STANDING WEIGHT DAILY Weight - 115 kg - was 116 kg (Standing) MARIXA - OFF Continue Toprol XL 12.5 mg po per day; HR 78 BPM BID electrolyte check K+ goal 4.5-5 KCL 60 meq po TID Supplemental K+ as needed to achieve goal Continue Aldactone 25 mg po per day Mag goal >2 + Stent Continue ASA 81 mg po per day Continue Plavix 75 mg po per day Continue Lipitor 40 mg po per day LDL (PENDING) Pt may need to be Transferred to [facility] for further evaluation and management of acute on chronic combined heart failure Investigated issues re: Liver prior to transfer. Primary oncologist felt that her malignancy would not preclude consideration for aortic valve replacement I will call transfer center @ [facility] re: possible transfer Pt is agreeable to transfer if needed Mobilize patient Frank Richardson Saravia Subjective Events Overnight: * None reported * No telemetry events Subjective: * No complaints * Edema is improving Review of Systems Review of Systems: All systems reviewed & are unremarkable except as noted in HPI & below Complete review of systems is otherwise as stated above, negative, noncontributory Physical Exam Physical Exam: General: Alert, no distress, well nourished, well developed, comfortable and cooperative HENT: Normocephalic. Atraumatic. Neck: + JVD. - 12 cmH20 Heart: Distant heart sounds. Regular at 76 bpm. Grade II/ systolic murmur. Lungs: Decreased at the bases. Bibasilar rales. No wheeze. Abdomen: +BS. Distended. Nontender. No masses. Abdominal wall edema - improving but still present Extremities: 1-2+ pitting edema, diffuse. No clubbing. No cyanosis Skin: chronic venous changes Limited neurological examination: No focal deficit. Results & Data Vital Signs (Past 12 Hours) Vital Signs Temp Pulse Pulse Resp BP Pulse Ox O2 Del Method 11/23/22 07:36 36.8 C 78 18 107/68 98 Room Air 11/23/22 07:33 72 11/23/22 04:17 79 11/23/22 03:28 36.6 C 89 20 120/83 97 BiPAP 11/22/22 22:30 36.6 C 85 20 93/63 L 96 Room Air Laboratory Results CBC 11/22/22 Range/Units 06:22 WBC 8.93 (4.8-10.8) K/ul RBC 3.99 L (4.20-5.40) M/uL Hgb 11.2 L (12.0-16.0) g/dl Hct 34.1 L (37.0-47.0) % Plt Count 103 L (130-400) K/uL Comprehensive Metabolic Panel 11/22/22 11/23/22 Range/Units 18:05 05:47 Sodium 137 140 (136-145) mmol/L Potassium 5.1 D 4.0 D (3.5-5.1) mmol/L Chloride 92 L 93 L (98-107) mmol/L Carbon Dioxide 39 H 40 H (21-32) mmol/L BUN 42 H 41 H (6-23) mg/dl Creatinine 1.33 H 1.29 H (0.6-1.2) mg/dl Glucose 300 H 125 H (70-99(Fasting)) mg/dl Calcium 9.7 9.6 (8.6-10.3) mg/dl Intake and Output 11/22/22 11/23/22 11/23/22 22:59 06:59 14:59 Intake Total 500 / 1301.5 278 / 1301.5 Output Total 1200 / 4050 1400 / 4050 Balance -700 / -2748.5 -1122 / -2748.5 Intake: IV 300 / 861.5 278 / 861.5 Furosemide 100 mg In Dextrose 5 300 / 861.5 278 / 861.5 % 90 ml @ 40 MG/HR 40 mls/hr IV .Q2H30M [facility] Rx#:[id number] Oral 200 / 200 Output: Urine Amount (Catheter) 1200 / 4050 1400 / 4050 Red/Indwelling 1200 / 4050 1400 / 4050 Other: Other Intake Source Sips Weight 115.1 kg Weight Measurement Method Built in [facility] Medications Administered Current Inpatient Medications Acetaminophen (Acetaminophen 325 Mg Tab) 650 mg PO Q4H PRN PRN Reason: Pain or Fever Stop: 12/05/22 18:39 Last Admin: 11/06/22 08:40 Dose: 650 mg Acetaminophen (Acetaminophen 500 Mg Tab) 1,000 mg PO HS [facility] Stop: 12/05/22 20:59 Last Admin: 11/22/22 20:32 Dose: 1,000 mg Al Hydrox/Mg Hydrox/Simethicone (Aluminum/Magnesium/Simeth (Maalox Max) 30 Ml Udc) 30 ml PO Q6H PRN PRN Reason: Heartburn Stop: 12/13/22 19:30 Last Admin: 11/21/22 20:56 Dose: 30 ml Lipase/Protease/Amylase (Pancreaze (Lipase 10,500u) Cap) 2 cap PO QIDM [facility] Stop: 12/05/22 20:59 Last Admin: 11/22/22 20:31 Dose: 2 cap Lipase/Protease/Amylase (Pancreaze (Lipase 4,200u) Cap) 1 cap PO QIDM [facility] Stop: 12/05/22 20:59 Last Admin: 11/22/22 20:29 Dose: 1 cap Ascorbic Acid (Ascorbic Acid 500 Mg Tab) [facility] [place]: 12/06/22 08:59 Last Admin: 11/22/22 08:55 Dose: 500 mg Aspirin (Aspirin 81 Mg Ectab) [facility] Stop: 12/06/22 08:59 Last Admin: 11/22/22 08:55 Dose: 81 mg Atorvastatin Calcium (Atorvastatin 40 Mg Tab) 40 mg PO [facility] Stop: 12/05/22 20:59 Last Admin: 11/22/22 20:29 Dose: 40 mg Betaxolol HCl (Betaxolol Hcl 0.5% Op 5 Ml Btl) 1 drops OPL AMHS [facility] Stop: 12/05/22 20:59 Last Admin: 11/22/22 20:21 Dose: 1 drops Brimonidine Tartrate (Brimonidine Tartrate 0.2% 5ml) 1 drops OPL BID [facility] Stop: 12/05/22 20:59 Last Admin: 11/22/22 20:20 Dose: 1 drops Calcium Carbonate (Calcium Carbonate 500 Mg Chewable Tab) 500 mg PO QID PRN PRN Reason: Indigestion Stop: 12/09/22 18:41 Last Admin: 11/22/22 21:33 Dose: 500 mg Clopidogrel Bisulfate (Clopidogrel Bisulfate 75 Mg Tab) 75 mg PO QAM [facility] Stop: 12/06/22 08:59 Last Admin: 11/22/22 08:54 Dose: 75 mg Clotrimazole (Clotrimazole 1% Cr 15 Gm Tube) 1 appln EXT BID [facility] Stop: 12/21/22 10:44 Last Admin: 11/22/22 20:33 Dose: 1 appln Cyanocobalamin (Cyanocobalamin (B-12) 500 Mcg Tablet) 1,500 mcg PO QPM [facility] Stop: 12/05/22 20:59 Last Admin: 11/22/22 20:30 Dose: 1,500 mcg Dextrose (Dextrose 50% 50 Ml Syringe) 25 - 50 ml IV UD PRN; Protocol PRN Reason: Hypoglycemia Protocol Stop: 12/05/22 17:38 Enoxaparin Sodium (Enoxaparin Inj 40 Mg/0.4 Ml Syr) 40 mg SQ QAM [facility] Stop: 12/06/22 08:59 Last Admin: 11/18/22 09:06 Dose: 40 mg Erythromycin (Erythromycin Op Oint 5 Mg/Gm 3.5 Gm Tube) 1 appln OP QID [facility] Stop: 11/25/22 21:44 Last Admin: 11/22/22 20:33 Dose: 1 appln Ferrous Sulfate (Ferrous Sulfate 325 Mg Tab) 325 mg PO DAILY [facility] Stop: 12/06/22 08:59 Last Admin: 11/22/22 08:56 Dose: 325 mg Fluticasone Propionate (Fluticasone Propionate Na Spr 16 Gm Btl) 2 sprays NA QAM [facility] Stop: 12/06/22 08:59 Last Admin: 11/22/22 08:56 Dose: 2 sprays Folic Acid (Folic Acid 1 Mg Tab) 1 mg PO QAM [facility] Stop: 12/06/22 08:59 Last Admin: 11/22/22 08:55 Dose: 1 mg Gabapentin (Gabapentin 400 Mg Cap) 400 mg PO TID [facility] Stop: 12/05/22 20:59 Last Admin: 11/22/22 20:32 Dose: 400 mg Glucagon (Glucagon For Inj 1 Mg Vial) 1 mg SQ UD PRN; Protocol PRN Reason: Hypoglycemia Protocol Stop: 12/05/22 17:38 Glucose (Glucose 10 Tab/Tube) 4 - 8 tab PO UD PRN; Protocol PRN Reason: Hypoglycemia Treatment Stop: 12/05/22 17:38 Glucose (Glucose 40% Gel 15 Gm Tube) 15 - 30 gm PO UD PRN; Protocol PRN Reason: Hypoglycemia Protocol Stop: 12/05/22 17:38 Hydroxychloroquine Sulfate (Hydroxychloroquine Sulfate 200 Mg Tab) 400 mg PO HS [facility] Stop: 12/05/22 20:59 Last Admin: 11/22/22 20:32 Dose: 400 mg Furosemide 100 mg/ Dextrose 100 mls @ 40 mls/hr IV .Q2H30M [facility] Stop: 12/13/22 10:29 Last Admin: 11/23/22 06:09 Dose: 40 mg/hr, 40 mls/hr Promethazine HCl 12.5 mg/ (Sodium Chloride) 50.5 mls @ 202 mls/hr IV Q6H PRN PRN Reason: Nausea And Vomiting Stop: 12/15/22 00:06 Last Infusion: 11/15/22 02:00 Dose: Infused Insulin Aspart (Insulin Aspart Per Unit Charge) 0 units SC ACHS [facility] Stop: 12/05/22 20:59 Last Admin: 11/22/22 21:33 Dose: 6 units Insulin Glargine (Lantus Per Unit Charge) 10 units SQ BID [facility] Stop: 12/11/22 20:59 Last Admin: 11/22/22 21:33 Dose: 10 units Lactobacillus Acidophilus (Advanced Probiotic 1250 Mg Capsule) 1 cap PO QAM [facility] Stop: 12/06/22 08:59 Last Admin: 11/22/22 08:55 Dose: 1 cap Latanoprost (Latanoprost 0.005% Op Soln 2.5 Ml Btl) 1 drops OPB HS [facility] Stop: 12/05/22 20:59 Last Admin: 11/22/22 20:20 Dose: 1 drops Levothyroxine Sodium (Levothyroxine Sodium 125 Mcg Tablet) 125 mcg PO DAILYBB [facility] Stop: 12/06/22 06:29 Last Admin: 11/23/22 06:10 Dose: 125 mcg Loperamide HCl (Loperamide Hcl 2 Mg Cap) 2 mg PO Q3H PRN PRN Reason: Diarrhea Stop: 12/13/22 09:45 Last Admin: 11/22/22 22:51 Dose: 2 mg Lorazepam (Lorazepam 0.5 Mg Tab) 0.5 mg PO TID PRN PRN Reason: Anxiety Stop: 12/05/22 19:50 Last Admin: 11/22/22 22:49 Dose: 0.5 mg Magnesium Oxide (Magnesium Oxide 400 Mg Tab) 400 mg PO BID [facility] Stop: 12/06/22 20:59 Last Admin: 11/22/22 20:29 Dose: 400 mg Melatonin (Melatonin 3 Mg Tab) 6 mg PO HS [facility] Stop: 12/05/22 20:59 Last Admin: 11/22/22 22:49 Dose: 6 mg Menthol (Cough Drop (Sugar Free) Rob 24 Rob/1 Box) 1 rob BUCCAL TID PRN PRN Reason: Sore Throat Stop: 12/11/22 22:49 Last Admin: 11/11/22 23:23 Dose: 1 rob Metoprolol Succinate (Metoprolol Succ 25mg Ext Rel Tab) 12.5 mg PO QAM [facility] Stop: 12/18/22 08:59 Last Admin: 11/22/22 08:53 Dose: 12.5 mg Miscellaneous (Carbohydrates For Hypoglycemia ) 15 - 30 gm PO UD PRN PRN Reason: Hypoglycemia Protocol Stop: 12/05/22 17:38 Multivitamins/Minerals (Cerovite Adv Formula Tab) 1 tab PO QAM [facility] Stop: 12/06/22 08:59 Last Admin: 11/22/22 08:54 Dose: 1 tab Netarsudil (Netarsudil Mesylate 37 Drops/2.5 Ml Btl) 1 drops OPL HS [facility] Stop: 12/06/22 20:59 Last Admin: 11/22/22 20:21 Dose: 1 drops Nitroglycerin (Nitroglycerin Sl 0.4 Mg/Tab Tab) 0.4 mg SL Q5M PRN PRN Reason: Chest Pain Stop: 12/05/22 18:39 Nystatin (Nystatin Powder 15gm Btl) 1 appln EXT TID PRN PRN Reason: irritation Stop: 12/05/22 19:50 Last Admin: 11/07/22 21:52 Dose: 1 appln Pantoprazole Sodium (Pantoprazole 40 Mg Tab) 40 mg PO QAM [facility] Stop: 12/06/22 08:59 Last Admin: 11/22/22 08:55 Dose: 40 mg Potassium Chloride (Potassium Chloride Crtab 20 Meq Tabcr) 60 meq PO TIDM [facility] Stop: 12/17/22 11:59 Last Admin: 11/22/22 16:58 Dose: 60 meq Prednisone (Prednisone 5 Mg Tab) [facility] [place] Stop: 12/06/22 08:59 Last Admin: 11/22/22 08:55 Dose: 5 mg Spironolactone (Spironolactone 25 Mg Tab) 25 mg PO DAILY [facility] Stop: 12/13/22 07:59 Last Admin: 11/22/22 08:54 Dose: 25 mg Tamsulosin HCl (Tamsulosin Hcl 0.4 Mg Cap) 0.4 mg PO HS [facility] Stop: 12/05/22 20:59 Last Admin: 11/22/22 20:31 Dose: 0.4 mg
[2022-11-23] MEDS: BRIMONIDINE TARTRATE 0.2% 5ML OPL SCH ×2 (09:31→20:58)
[2022-11-23] MEDS: ERYTHROMYCIN OP OINT 5 MG/GM 3.5 GM TUBE OP SCH ×4 (09:31→21:01)
[2022-11-23] MEDS: BETAXOLOL HCL 0.5% OPL SCH ×2 (09:31→20:58)
[2022-11-23] MEDS: FLUTICASONE PROPIONATE NA SPR 16 GM BTL SCH (09:32)
[2022-11-23] MEDS: INSULIN ASPART PER UNIT CHARGE SC SCH ×4 (09:33→21:12)
[2022-11-23] MEDS: PANCREAZE (LIPASE 4,200U) CAP PO SCH ×4 (09:33→20:52)
[2022-11-23] MEDS: PANCREAZE (LIPASE 10,500U) CAP PO SCH ×4 (09:34→20:53)
[2022-11-23] MEDS: POTASSIUM CHLORIDE CRTAB 20 MEQ TABCR PO SCH ×3 (09:34→17:07)
[2022-11-23] MEDS: ASCORBIC ACID 500 MG TAB PO SCH (09:35)
[2022-11-23] MEDS: ASPIRIN 81 MG ECTAB PO SCH (09:35)
[2022-11-23] MEDS: CLOPIDOGREL BISULFATE 75 MG TAB PO SCH (09:35)
[2022-11-23] MEDS: CLOTRIMAZOLE 1% CR 15 GM TUBE EXT SCH ×2 (09:36→20:59)
[2022-11-23] MEDS: FERROUS SULFATE 325 MG TAB PO SCH (09:37)
[2022-11-23] MEDS: GABAPENTIN 400 MG CAP PO SCH ×3 (09:37→20:50)
[2022-11-23] MEDS: FOLIC ACID 1 MG TAB PO SCH (09:37)
[2022-11-23] MEDS: ADVANCED PROBIOTIC 1250 MG CAPSULE PO SCH (09:38)
[2022-11-23] MEDS: MAGNESIUM OXIDE 400 MG TAB PO SCH ×2 (09:38→20:53)
[2022-11-23] MEDS: LANTUS PER UNIT CHARGE SQ SCH ×2 (09:38→21:13)
[2022-11-23] MEDS: PANTOprazole 40 MG TAB PO SCH (09:39)
[2022-11-23] MEDS: predniSONE 5 MG TAB PO SCH (09:39)
[2022-11-23] MEDS: CEROVITE ADV FORMULA TAB PO SCH (09:39)
[2022-11-23] MEDS: METOPROLOL SUCC 25MG EXT REL TAB PO SCH (09:39)
[2022-11-23] MEDS: SPIRONOLACTONE 25 MG TAB PO SCH (09:40)
[2022-11-23 12:39] LABS: Appearance Urine Cloudy (Clear); Bacteria Urine Automated 2+ (Negative); Bilirubin Urine Negative (Negative); Blood Urine Negative (Negative); Color Urine Yellow; Glucose Urine UA Negative (Negative); Ketones Urine Negative (Negative); Leukocyte Esterase Urine 3+ (Negative); Nitrite Urine Positive (Negative); Protein Urine Negative (Negative); RBC Urine Automated 0-4 /hpf (0-4); Specific Gravity Urine 1.009 (1.000-1.030); Urobilinogen Urine Negative (Negative); pH Urine >= 9.0 (4.5-7.5)
[2022-11-23] MEDS: ERTAPENEM SODIUM 1,000 MG in SYRINGE 0 ML IV SCH (13:29)
[2022-11-23 18:19] LABS: Calcium 9.4 mg/dl (8.6-10.3); Magnesium 2.3 mg/dl (1.7-2.4); Potassium 4.9 mmol/L (3.5-5.1)
[2022-11-23 18:24] LABS: BUN Creatinine Ratio 29.5 (10-20); Creatinine Clr Calc Pharmacy 45.1 ml/min; Est GFR (African American) 43.8 ml/min; Est GFR (Non-African American) 37.8 ml/min
[2022-11-23] MEDS: ACETAMINOPHEN 500 MG TAB PO SCH (20:47)
[2022-11-23] MEDS: ATORVASTATIN 40 MG TAB PO SCH (20:49)
[2022-11-23] MEDS: CYANOCOBALAMIN (B-12) 500 MCG TABLET PO SCH (20:49)
[2022-11-23] MEDS: HYDROXYCHLOROQUINE SULFATE 200 MG TAB PO SCH (20:51)
[2022-11-23] MEDS: TAMSULOSIN HCL 0.4 MG CAP PO SCH (20:54)
[2022-11-23] MEDS: LATANOPROST 0.005% OP SOLN 2.5 ML BTL OPB SCH (21:00)
[2022-11-23] MEDS: NETARSUDIL MESYLATE 37 DROPS/2.5 ML BTL OPL SCH (21:01)
[2022-11-23] MEDS: ALUMINUM/MAGNESIUM/SIMETH (MAALOX MAX) 30 ML UDC PO PRN (21:33)
[2022-11-23] MEDS: MELATONIN 3 MG TAB PO SCH (22:55)
[2022-11-23] MEDS: LORazepam 0.5 MG TAB PO PRN (22:55)
[2022-11-24] MEDS: FUROSEMIDE 100 MG in DEXTROSE 5% 90 ML IV SCH ×9 (01:04→22:08)
[2022-11-24] MEDS: LEVOTHYROXINE SODIUM 125 MCG TABLET PO SCH (06:02)
[2022-11-24 06:43] LABS: Hematocrit (blood only) 34.2 % (37.0-47.0); Hemoglobin 10.9 g/dl (12.0-16.0); Mean Corpuscular Hemoglobin 27.5 pg (25.0-34.0); Mean Corpuscular Hgb Conc 31.9 g/dL (32.0-36.0); Mean Corpuscular Volume 86.4 fL (80.0-100.0); Mean Platelet Volume 11.1 fL (9.4-12.4); Platelet Count 108 K/uL (130-400); RDW Coefficient of Variation 17.7 % (11.5-14.5); RDW Standard Deviation 54.3 fL (36.4-46.3); Red Blood Count 3.96 M/uL (4.20-5.40); White Blood Count 6.48 K/ul (4.8-10.8)
[2022-11-24 07:13] LABS: BUN Creatinine Ratio 28.1 (10-20); Calcium 9.2 mg/dl (8.6-10.3); Est GFR (African American) 43.8 ml/min; Est GFR (Non-African American) 37.8 ml/min; Magnesium 2.3 mg/dl (1.7-2.4); Potassium 3.8 mmol/L (3.5-5.1)
--- NOTE | 2022-11-24 07:50 | Cardiology Progress Note ---
Date of Service November 24, 2022 Assessment & Plan (1) Acute on chronic combined systolic (congestive) and diastolic (congestive) heart failure: (2) Aortic stenosis: Admission and Anticipated Discharge Date Admission Date: November 05, 2022 Supervising Physician Co-Signing Physician Notes Attending Staff: Pt was seen and evaluated with [facility] staff. 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 Case reviewed Markedly volume overloaded + JVP 18 cmH20 S1 - murmur - Muted S2 Decreased BS at Right base + Abdominal Wall Edema +3 Bilateral LE edema extending to the inguinal folds Pt is making progress with volume Degree of volume overload is severe but improving ECHOcardiogram: 08/2022 LVEF 25% AoV Peak gradient 32 Aov Mean grdient 16 CHAPO .7-.8 cm2 Plan: Aggressive diuresis Zaroxolyn 5 mg po x 1 Lasix 200 mg IV x 1 Continue Lasix infusion to 40 mg IV/hr (max) STANDING WEIGHT DAILY Weight - 114 - was 115 kg (Standing) MARIXA - OFF Continue Toprol XL 12.5 mg po per day; HR 78 BPM BID electrolyte check K+ goal 4.5-5 KCL 60 meq po TID Supplemental K+ as needed to achieve goal Continue Aldactone 25 mg po per day Mag goal >2 + Stent Continue ASA 81 mg po per day Continue Plavix 75 mg po per day Continue Lipitor 40 mg po per day LDL (PENDING) Pt may need to be Transferred to [facility] [place] for further evaluation and management of acute on chronic combined heart failure Investigated issues re: Liver prior to transfer. Primary oncologist felt that her malignancy would not preclude consideration for aortic valve replacement I will call transfer center @ [facility] re: possible transfer I texted with Structural Heart Team at [facility] for transfer - await reply Pt is agreeable to transfer if needed Mobilize patient Frank Pito Saravia Subjective Events Overnight: * No events reported Subjective: * No complaints Review of Systems Review of Systems: All systems reviewed & are unremarkable except as noted in HPI & below Physical Exam Physical Exam: General: Alert, no distress, well nourished, well developed, comfortable and cooperative HENT: Normocephalic. Atraumatic. Neck: + JVD. - 12 cmH20 Heart: Distant heart sounds. Regular at 76 bpm. Grade II/ systolic murmur. Lungs: Decreased at the bases. Bibasilar rales. No wheeze. Abdomen: +BS. Distended. Nontender. No masses. Abdominal wall edema - improving but still present Extremities: 1-2+ pitting edema, diffuse. No clubbing. No cyanosis Skin: chronic venous changes Limited neurological examination: No focal deficit. Results & Data Vital Signs (Past 12 Hours) Vital Signs Temp Pulse Pulse Resp BP BP Pulse Ox 11/24/22 03:28 36.6 C 72 16 114/75 95 11/23/22 23:30 11/23/22 22:15 83 11/23/22 22:51 36.8 C 88 20 94/65 L 97 11/23/22 19:50 37.0 C 82 20 111/78 95 O2 Del Method 11/24/22 03:28 BiPAP 11/23/22 23:30 Room Air 11/23/22 22:15 11/23/22 22:51 Room Air 11/23/22 19:50 Room Air Laboratory Results CBC 11/24/22 Range/Units 05:55 WBC 6.48 (4.8-10.8) K/ul RBC 3.96 L (4.20-5.40) M/uL Hgb 10.9 L (12.0-16.0) g/dl Hct 34.2 L (37.0-47.0) % Plt Count 108 L (130-400) K/uL Comprehensive Metabolic Panel 11/23/22 11/24/22 Range/Units 17:48 05:55 Sodium 136 140 (136-145) mmol/L Potassium 4.9 D 3.8 D (3.5-5.1) mmol/L Chloride 93 L 95 L (98-107) mmol/L Carbon Dioxide 35 H 38 H (21-32) mmol/L BUN 41 H 39 H (6-23) mg/dl Creatinine 1.39 H 1.39 H (0.6-1.2) mg/dl Glucose 208 H 125 H (70-99(Fasting)) mg/dl Calcium 9.4 9.2 (8.6-10.3) mg/dl Intake and Output 11/23/22 11/24/22 11/24/22 22:59 06:59 14:59 Intake Total 700 / 2076 400 / 2076 100 / 100 Output Total 1300 / 2701 1401 / 2701 Balance -600 / -625 -1001 / -625 100 / 100 Intake: IV 300 / 896 300 / 896 100 / 100 Furosemide 100 mg In Dextrose 5 300 / 896 300 / 896 100 / 100 % 90 ml @ 40 MG/HR 40 mls/hr IV .Q2H30M [facility] Rx#:[id number] Oral 400 / 1180 100 / 1180 Output: Urine Amount (Catheter) 1300 / 2700 1400 / 2700 Red/Indwelling 1300 / 2700 1400 / 2700 # Bowel Movements Other: Weight 114.6 kg Weight Measurement Method Standing Scale Medications Administered Current Inpatient Medications Acetaminophen (Acetaminophen 325 Mg Tab) 650 mg PO Q4H PRN PRN Reason: Pain or Fever Stop: 12/05/22 18:39 Last Admin: 11/06/22 08:40 Dose: 650 mg Acetaminophen (Acetaminophen 500 Mg Tab) 1,000 mg PO [facility] Stop: 12/05/22 20:59 Last Admin: 11/23/22 20:47 Dose: 1,000 mg Al Hydrox/Mg Hydrox/Simethicone (Aluminum/Magnesium/Simeth (Maalox Max) 30 Ml Udc) 30 ml PO Q6H PRN PRN Reason: Heartburn Stop: 12/13/22 19:30 Last Admin: 11/23/22 21:33 Dose: 30 ml Lipase/Protease/Amylase (Pancreaze (Lipase 10,500u) Cap) 2 cap PO QIDM [facility] Stop: 12/05/22 20:59 Last Admin: 11/24/22 08:44 Dose: 2 cap Lipase/Protease/Amylase (Pancreaze (Lipase 4,200u) Cap) 1 cap PO QIDM [facility] Stop: 12/05/22 20:59 Last Admin: 11/24/22 08:44 Dose: 1 cap Ascorbic Acid (Ascorbic Acid 500 Mg Tab) [facility] [facility] [place] Stop: 12/06/22 08:59 Last Admin: 11/24/22 08:45 Dose: 500 mg Aspirin (Aspirin 81 Mg Ectab) 81 mg [facility] [place] Stop: 12/06/22 08:59 Last Admin: 11/24/22 08:46 Dose: 81 mg Atorvastatin Calcium (Atorvastatin 40 Mg Tab) 40 mg PO [facility] Stop: 12/05/22 20:59 Last Admin: 11/23/22 20:49 Dose: 40 mg Betaxolol HCl (Betaxolol Hcl 0.5% Op 5 Ml Btl) 1 drops OPL [facility] Stop: 12/05/22 20:59 Last Admin: 11/24/22 08:46 Dose: 1 drops Brimonidine Tartrate (Brimonidine Tartrate 0.2% 5ml) 1 drops OPL BID [facility] Stop: 12/05/22 20:59 Last Admin: 11/24/22 08:46 Dose: 1 drops Calcium Carbonate (Calcium Carbonate 500 Mg Chewable Tab) 500 mg PO QID PRN PRN Reason: Indigestion Stop: 12/09/22 18:41 Last Admin: 11/22/22 21:33 Dose: 500 mg Clopidogrel Bisulfate (Clopidogrel Bisulfate 75 Mg Tab) 75 mg PO QAM [facility] Stop: 12/06/22 08:59 Last Admin: 11/23/22 09:35 Dose: 75 mg Clotrimazole (Clotrimazole 1% Cr 15 Gm Tube) 1 appln EXT BID [facility] Stop: 12/21/22 10:44 Last Admin: 11/23/22 20:59 Dose: 1 appln Cyanocobalamin (Cyanocobalamin (B-12) 500 Mcg Tablet) 1,500 mcg PO QPM [facility] Stop: 12/05/22 20:59 Last Admin: 11/23/22 20:49 Dose: 1,500 mcg Dextrose (Dextrose 50% 50 Ml Syringe) 25 - 50 ml IV UD PRN; Protocol PRN Reason: Hypoglycemia Protocol Stop: 12/05/22 17:38 Enoxaparin Sodium (Enoxaparin Inj 40 Mg/0.4 Ml Syr) 40 mg SQ QAM [facility] Stop: 12/06/22 08:59 Last Admin: 11/18/22 09:06 Dose: 40 mg Erythromycin (Erythromycin Op Oint 5 Mg/Gm 3.5 Gm Tube) 1 appln OP QID [facility] Stop: 11/25/22 21:44 Last Admin: 11/23/22 21:01 Dose: 1 appln Ferrous Sulfate (Ferrous Sulfate 325 Mg Tab) 325 mg PO DAILY [facility] Stop: 12/06/22 08:59 Last Admin: 11/23/22 09:37 Dose: 325 mg Fluticasone Propionate (Fluticasone Propionate Na Spr 16 Gm Btl) 2 sprays NA QAM [facility] Stop: 12/06/22 08:59 Last Admin: 11/23/22 09:32 Dose: 2 sprays Folic Acid (Folic Acid 1 Mg Tab) 1 mg PO QAM [facility] Stop: 12/06/22 08:59 Last Admin: 11/23/22 09:37 Dose: 1 mg Gabapentin (Gabapentin 400 Mg Cap) 400 mg PO TID [facility] Stop: 12/05/22 20:59 Last Admin: 11/23/22 20:50 Dose: 400 mg Glucagon (Glucagon For Inj 1 Mg Vial) 1 mg SQ UD PRN; Protocol PRN Reason: Hypoglycemia Protocol Stop: 12/05/22 17:38 Glucose (Glucose 10 Tab/Tube) 4 - 8 tab PO UD PRN; Protocol PRN Reason: Hypoglycemia Treatment Stop: 12/05/22 17:38 Glucose (Glucose 40% Gel 15 Gm Tube) 15 - 30 gm PO UD PRN; Protocol PRN Reason: Hypoglycemia Protocol Stop: 12/05/22 17:38 Hydroxychloroquine Sulfate (Hydroxychloroquine Sulfate 200 Mg Tab) 400 mg PO HS [facility] Stop: 12/05/22 20:59 Last Admin: 11/23/22 20:51 Dose: 400 mg Furosemide 100 mg/ Dextrose 100 mls @ 40 mls/hr IV .Q2H30M [facility] Stop: 12/13/22 10:29 Last Admin: 11/24/22 08:38 Dose: 40 mg/hr, 40 mls/hr Promethazine HCl 12.5 mg/ (Sodium Chloride) 50.5 mls @ 202 mls/hr IV Q6H PRN PRN Reason: Nausea And Vomiting Stop: 12/15/22 00:06 Last Infusion: 11/15/22 02:00 Dose: Infused Ertapenem 1,000 mg/ Syringe 10 mls @ 2 mls/min IV Q24H [facility] Stop: 12/03/22 10:59 Last Admin: 11/23/22 13:29 Dose: 2 mls/min Insulin Aspart (Insulin Aspart Per Unit Charge) 0 units SC ACHS [facility] Stop: 12/05/22 20:59 Last Admin: 11/24/22 08:40 Dose: 12 units Insulin Glargine (Lantus Per Unit Charge) 10 units SQ BID [facility] Stop: 12/11/22 20:59 Last Admin: 11/24/22 08:39 Dose: 10 units Lactobacillus Acidophilus (Advanced Probiotic 1250 Mg Capsule) 1 cap PO QAM [facility] Stop: 12/06/22 08:59 Last Admin: 11/23/22 09:38 Dose: 1 cap Latanoprost (Latanoprost 0.005% Op Soln 2.5 Ml Btl) 1 drops OPB HS [facility] Stop: 12/05/22 20:59 Last Admin: 11/23/22 21:00 Dose: 1 drops Levothyroxine Sodium (Levothyroxine Sodium 125 Mcg Tablet) 125 mcg PO DAILYBB [facility] Stop: 12/06/22 06:29 Last Admin: 11/24/22 06:02 Dose: 125 mcg Loperamide HCl (Loperamide Hcl 2 Mg Cap) 2 mg PO Q3H PRN PRN Reason: Diarrhea Stop: 12/13/22 09:45 Last Admin: 11/22/22 22:51 Dose: 2 mg Lorazepam (Lorazepam 0.5 Mg Tab) 0.5 mg PO TID PRN PRN Reason: Anxiety Stop: 12/05/22 19:50 Last Admin: 11/23/22 22:55 Dose: 0.5 mg Magnesium Oxide (Magnesium Oxide 400 Mg Tab) 400 mg PO BID [facility] Stop: 12/06/22 20:59 Last Admin: 11/23/22 20:53 Dose: 400 mg Melatonin (Melatonin 3 Mg Tab) 6 mg PO [facility] Stop: 12/05/22 20:59 Last Admin: 11/23/22 22:55 Dose: 6 mg Menthol (Cough Drop (Sugar Free) Lulú 24 Lulú/1 Box) 1 lulú BUCCAL TID PRN PRN Reason: Sore Throat Stop: 12/11/22 22:49 Last Admin: 11/11/22 23:23 Dose: 1 lulú Metoprolol Succinate (Metoprolol Succ 25mg Ext Rel Tab) 12.5 mg [facility] [place] [facility] [place] Stop: 12/18/22 08:59 Last Admin: 11/23/22 09:39 Dose: 12.5 mg Miscellaneous (Carbohydrates For Hypoglycemia ) 15 - 30 gm PO UD PRN PRN Reason: Hypoglycemia Protocol Stop: 12/05/22 17:38 Multivitamins/Minerals (Cerovite Adv Formula Tab) 1 tab [facility] [place] [facility] [place] Stop: 12/06/22 08:59 Last Admin: 11/23/22 09:39 Dose: 1 tab Netarsudil (Netarsudil Mesylate 37 Drops/2.5 Ml Btl) 1 drops OPL HS [facility] Stop: 12/06/22 20:59 Last Admin: 11/23/22 21:01 Dose: 1 drops Nitroglycerin (Nitroglycerin Sl 0.4 Mg/Tab Tab) 0.4 mg SL Q5M PRN PRN Reason: Chest Pain Stop: 12/05/22 18:39 Nystatin (Nystatin Powder 15gm Btl) 1 appln EXT TID PRN PRN Reason: irritation Stop: 12/05/22 19:50 Last Admin: 11/07/22 21:52 Dose: 1 appln Pantoprazole Sodium (Pantoprazole 40 Mg Tab) 40 mg PO QAM [facility] Stop: 12/06/22 08:59 Last Admin: 11/23/22 09:39 Dose: 40 mg Potassium Chloride (Potassium Chloride Crtab 20 Meq Tabcr) 60 meq PO TIDM [facility] Stop: 12/17/22 11:59 Last Admin: 11/24/22 08:45 Dose: 60 meq Prednisone (Prednisone 5 Mg Tab) 5 mg PO QAM [facility] Stop: 12/06/22 08:59 Last Admin: 11/23/22 09:39 Dose: 5 mg Spironolactone (Spironolactone 25 Mg Tab) 25 mg PO DAILY [facility] Stop: 12/13/22 07:59 Last Admin: 11/23/22 09:40 Dose: 25 mg Tamsulosin HCl (Tamsulosin Hcl 0.4 Mg Cap) 0.4 mg PO HS [facility] Stop: 12/05/22 20:59 Last Admin: 11/23/22 20:54 Dose: 0.4 mg
[2022-11-24] MEDS: LANTUS PER UNIT CHARGE SQ SCH ×2 (08:39→20:32)
[2022-11-24] MEDS: INSULIN ASPART PER UNIT CHARGE SC SCH ×4 (08:40→20:32)
[2022-11-24] MEDS: PANCREAZE (LIPASE 10,500U) CAP PO SCH ×4 (08:44→20:26)
[2022-11-24] MEDS: PANCREAZE (LIPASE 4,200U) CAP PO SCH ×4 (08:44→20:26)
[2022-11-24] MEDS: ASCORBIC ACID 500 MG TAB PO SCH (08:45)
[2022-11-24] MEDS: POTASSIUM CHLORIDE CRTAB 20 MEQ TABCR PO SCH ×3 (08:45→17:21)
[2022-11-24] MEDS: BRIMONIDINE TARTRATE 0.2% 5ML OPL SCH ×2 (08:46→20:31)
[2022-11-24] MEDS: ASPIRIN 81 MG ECTAB PO SCH (08:46)
[2022-11-24] MEDS: BETAXOLOL HCL 0.5% OPL SCH ×2 (08:46→20:32)
[2022-11-24] MEDS: CLOPIDOGREL BISULFATE 75 MG TAB PO SCH (08:47)
[2022-11-24] MEDS: ERYTHROMYCIN OP OINT 5 MG/GM 3.5 GM TUBE OP SCH ×4 (08:47→20:25)
[2022-11-24] MEDS: CLOTRIMAZOLE 1% CR 15 GM TUBE EXT SCH ×2 (08:47→20:30)
[2022-11-24] MEDS: FOLIC ACID 1 MG TAB PO SCH (08:48)
[2022-11-24] MEDS: FLUTICASONE PROPIONATE NA SPR 16 GM BTL SCH (08:48)
[2022-11-24] MEDS: FERROUS SULFATE 325 MG TAB PO SCH (08:48)
[2022-11-24] MEDS: GABAPENTIN 400 MG CAP PO SCH ×3 (08:49→20:21)
[2022-11-24] MEDS: ADVANCED PROBIOTIC 1250 MG CAPSULE PO SCH (08:49)
[2022-11-24] MEDS: MAGNESIUM OXIDE 400 MG TAB PO SCH ×2 (08:50→20:27)
[2022-11-24] MEDS: METOPROLOL SUCC 25MG EXT REL TAB PO SCH (08:50)
[2022-11-24] MEDS: CEROVITE ADV FORMULA TAB PO SCH (08:50)
[2022-11-24] MEDS: PANTOprazole 40 MG TAB PO SCH (08:51)
[2022-11-24] MEDS: predniSONE 5 MG TAB PO SCH (08:51)
[2022-11-24] MEDS: SPIRONOLACTONE 25 MG TAB PO SCH (08:51)
[2022-11-24] MEDS: ENOXAPARIN INJ 40 MG/0.4 ML SYR SQ SCH (10:32)
[2022-11-24] MEDS: ERTAPENEM SODIUM 1,000 MG in SYRINGE 0 ML IV SCH (10:33)
[2022-11-24] MEDS ORDERED: FUROSEMIDE IV SCH ×2 (11:00→13:00)
[2022-11-24] MEDS ORDERED: metOLazone 5 MG TABLET PO ONE (13:00)
[2022-11-24] MEDS ORDERED: FUROSEMIDE 10 MG/ML 10 ML VIAL IV ONE (13:00)
--- NOTE | 2022-11-24 14:40 | Hospitalist Progress Note ---
Date of Service November 24, 2022 Assessment & Plan (1) Acute on chronic combined systolic (congestive) and diastolic (congestive) heart failure: Plan: 72 y/o with a complicated medical history including combined systolic and diastolic heart failure, CAD s/p PCI with WALTER, aortic stenosis (suspected severe), tachy-wilfrido syndrome s/p PPM in 2021, persistent afib since 07/01, bilateral carotid bruits, insulin-requiring DM, blindness, rheumatoid arthritis, chronic prednisone use, LAQUITA on CPAP, CKD3a, hypothyroidism, HTN, open-angle glaucoma, and recurrent liver cancer s/p recent placement of radiation beads. Presented with progressive shortness of breath over 5 weeks which did not improve even with increasing diuretics Her leg edema has been seeping liquid constantly Started with Lasix 40mg IV BID--> increased to lasix 60mg BID 11/08 40lb over ideal weight Lasix was then increased to 80 mg IV twice daily and added spironolactone 12.5 mg daily with supplemental potassium as needed Intravenous Lasix pushes were changed to a Lasix drip and this is ongoing with increase to drip and additional Lasix IV boluses intermittently cont to monitor strict I/Os, monitordaily standing weight, low salt diet, daily BMP. Still continue with intravenous Lasix drip-negative balance of more than 30 L as of today Will monitor electrolytes and kidney function (2) Aortic stenosis: Plan: TAVR indicated, cardiology considering inpatient transfer to [facility]. Awaiting transfer to [place] (3) Acquired thrombocytopenia: Plan: No PF4 antibodies found and PLT count is improving. This may have been a secondary thrombocytopenia from recent linezolid use. Consider DVT chemoprophylaxis once this resolves. (4) Cellulitis of right leg: Plan: Completed linezolid course. (5) Metabolic alkalosis: Plan: 2/2 diuresis. Cardiology considering zaroxyln. Cont CPAP at night. (6) Catheter-associated urinary tract infection: Plan: Asymptomatic bacteriuria present after matute catheter placement during this hospital stay. Starting ertapenem given multiple allergies and cont for 7 days. Ertapenem was started on 11/23/2022 at 11 AM and will be continued until 11/30/2022 (7) Venous stasis ulcers: Plan: She has chronic LE wounds for which she is following with wound care but she has been told that until the fluid overload is improved, her wounds will be unlikely to heal. some superficial Right leg cellulitis with extensive antibiotic allergy noted. Treated with a 7 day course of linezolid Dressing as per wound care which are currently in place. Advised to keep the legs elevated while in bed (8) Tinea corporis: Plan: Rash on left knee seems most consistent with tinea corporis - Started clotrimazole 1% cream BID for a 14 days course -completed 14 day course with clotrimazole cream -still some evidence of rash present -LFTs are WNL, bililrubin is improved -clotrimazole cream was restarted and will cont for another two weeks (need to cont 1 week past resolution) (9) Chronic kidney disease, stage 3: Plan: Chronic, stable despite aggressive diuresis. Creatinine remains stable and will monitor electrolytes (10) Diabetes mellitus, type 2: Plan: Chronic, stable. Continue basal bolus insulin. Currently euglycemic. Will update A1c. (11) Hypothyroidism: Plan: Chronic, stable. Continue thyroid replacement as ordered (12) Sleep apnea: Plan: Reports insomnia is somewhat associated with not having her home mask. CPAP home device now in room (13) Rheumatoid arthritis: Plan: chronic, stable. Methotrexate currently on hold due to leg wounds - will continue prednisone and plaquenil Remains free from any significant arthritic pain (14) Iron deficiency anemia: Plan: chronic, stable. Cont current therapy. (15) Hepatocellular carcinoma: Plan: chronic. Dx with HCC in 2019 after MRI which noted a liver lesion 3.7cm x 3.5 cm. A biopsy in 2018 was negative for malignancy. A followup MRI in August 2019 showed the mass had increased in size. FNA liver performed and consistent with HCC. Underwent bland embolization on 11/02/2019 Followup MRI September 2020 showed progression Repeat bland embolization on 11/14/20 Per oncology she continues to be at risk for recurrent/metastatic disease There was a recent CT scan showing two new lesions and she underwent another embolization on 10/28/22 Current plan is to do a followup CT scan in 4 months. (16) Morbid obesity: Plan: Lifestyle changes recommended, BMI 48. (17) Blindness: Plan: Assist with ADLs and IADLs as needed. Code status: Full code but no prolonged heroic measures. Son is her POA DVT Prophylaxis: held in setting of worsening thrombocytopenia. Disposition-- Evaluated by PT/OT, rehab recommended with plans for [facility], however, Cardiology considering inpatient transfer for TAVR. Admission and Anticipated Discharge Date Admission Date: November 05, 2022 Subjective 11/24/2022 The patient was seen and examined in telemetry unit She has been feeling much better and denies any shortness of breath, palpitation, chest pain and her legs are much improved She has been waiting to go to [facility] for TAVR procedure Review of Systems Review of Systems: All systems reviewed and are unremarkable except as noted below Physical Exam Physical Exam: Sitting on a chair without any acute distress Constitutional: well developed, well nourished and + morbidly obese; not ill appearing Eyes: PERRL, conjunctivae normal, anicteric sclerae ENMT: external ear and nose normal, oropharynx normal Neck: trachea midline, no thyromegaly Respiratory: no respiratory distress Auscultation: + diminished lung sounds; no crackles (Bibasal crackles) Cardiovascular: Rate/Rhythm: regular rate and regular rhythm; not tachycardic Heart Sounds: normal S1, normal S2 and + murmur Extremities: + edema (1+ edema bilaterally with seeping of fluid) Gastrointestinal (Abdomen): Inspection/Auscultation: + abdomen distended and normal bowel sounds Percussion/Palpation: abdomen soft; abdomen nontender Neurologic: normal touch/pain/proprioception and moves all extremities; no focal motor deficits Psychiatric: A+Ox3, euthymic affect Lymphatic: no cervical or axillary lymphadenopathy Results & Data Results & Data Vital Signs (Past 12 Hours) Vital Signs Temp Pulse Pulse Resp BP Pulse Ox O2 Del Method 11/24/22 11:30 36.6 C 72 18 134/61 96 Room Air 11/24/22 07:09 72 11/24/22 07:30 36.7 C 66 20 124/59 L 97 Room Air 11/24/22 03:28 36.6 C 72 16 114/75 95 BiPAP Laboratory Results Short CBC 11/24/22 Range/Units 05:55 WBC 6.48 (4.8-10.8) K/ul Hgb 10.9 L (12.0-16.0) g/dl Hct 34.2 L (37.0-47.0) % Plt Count 108 L (130-400) K/uL BMP 11/23/22 11/24/22 17:48 05:55 Sodium 136 140 Potassium 4.9 D 3.8 D Chloride 93 L 95 L Carbon Dioxide 35 H 38 H BUN 41 H 39 H Creatinine 1.39 H 1.39 H Glucose 208 H 125 H Calcium 9.4 9.2 Medications Administered Current Inpatient Medications Acetaminophen (Acetaminophen 325 Mg Tab) 650 mg PO Q4H PRN PRN Reason: Pain or Fever Stop: 12/05/22 18:39 Last Admin: 11/06/22 08:40 Dose: 650 mg Acetaminophen (Acetaminophen 500 Mg Tab) 1,000 mg PO HS [facility] Stop: 12/05/22 20:59 Last Admin: 11/23/22 20:47 Dose: 1,000 mg Al Hydrox/Mg Hydrox/Simethicone (Aluminum/Magnesium/Simeth (Maalox Max) 30 Ml Udc) 30 ml PO Q6H PRN PRN Reason: Heartburn Stop: 12/13/22 19:30 Last Admin: 11/23/22 21:33 Dose: 30 ml Lipase/Protease/Amylase (Pancreaze (Lipase 10,500u) Cap) 2 cap PO QIDM [facility] Stop: 12/05/22 20:59 Last Admin: 11/24/22 11:26 Dose: 2 cap Lipase/Protease/Amylase (Pancreaze (Lipase 4,200u) Cap) 1 cap PO QIDM [facility] Stop: 12/05/22 20:59 Last Admin: 11/24/22 11:26 Dose: 1 cap Ascorbic Acid (Ascorbic Acid 500 Mg Tab) [facility] [place] Stop: 12/06/22 08:59 Last Admin: 11/24/22 08:45 Dose: 500 mg Aspirin (Aspirin 81 Mg Ectab) 81 [facility] [place] [facility] Stop: 12/06/22 08:59 Last Admin: 11/24/22 08:46 Dose: 81 mg Atorvastatin Calcium (Atorvastatin 40 Mg Tab) 40 mg PO [facility] Stop: 12/05/22 20:59 Last Admin: 11/23/22 20:49 Dose: 40 mg Betaxolol HCl (Betaxolol Hcl 0.5% Op 5 Ml Btl) 1 drops OPL [facility] Stop: 12/05/22 20:59 Last Admin: 11/24/22 08:46 Dose: 1 drops Brimonidine Tartrate (Brimonidine Tartrate 0.2% 5ml) 1 drops OPL BID [facility] Stop: 12/05/22 20:59 Last Admin: 11/24/22 08:46 Dose: 1 drops Calcium Carbonate (Calcium Carbonate 500 Mg Chewable Tab) 500 mg PO QID PRN PRN Reason: Indigestion Stop: 12/09/22 18:41 Last Admin: 11/22/22 21:33 Dose: 500 mg Clopidogrel Bisulfate (Clopidogrel Bisulfate 75 Mg Tab) 75 mg PO QAM [facility] Stop: 12/06/22 08:59 Last Admin: 11/24/22 08:47 Dose: 75 mg Clotrimazole (Clotrimazole 1% Cr 15 Gm Tube) 1 appln EXT BID [facility] Stop: 12/21/22 10:44 Last Admin: 11/24/22 08:47 Dose: 1 appln Cyanocobalamin (Cyanocobalamin (B-12) 500 Mcg Tablet) 1,500 mcg PO QPM [facility] Stop: 12/05/22 20:59 Last Admin: 11/23/22 20:49 Dose: 1,500 mcg Dextrose (Dextrose 50% 50 Ml Syringe) 25 - 50 ml IV UD PRN; Protocol PRN Reason: Hypoglycemia Protocol Stop: 12/05/22 17:38 Enoxaparin Sodium (Enoxaparin Inj 40 Mg/0.4 Ml Syr) 40 [facility] [place] Stop: 12/06/22 08:59 Last Admin: 11/24/22 10:32 Dose: 40 mg Erythromycin (Erythromycin Op Oint 5 Mg/Gm 3.5 Gm Tube) 1 appln OP QID [facility] Stop: 11/25/22 21:44 Last Admin: 11/24/22 14:12 Dose: 1 appln Ferrous Sulfate (Ferrous Sulfate 325 Mg Tab) 325 mg PO DAILY [facility] Stop: 12/06/22 08:59 Last Admin: 11/24/22 08:48 Dose: 325 mg Fluticasone Propionate (Fluticasone Propionate Na Spr 16 Gm Btl) 2 sprays NA QAM [facility] Stop: 12/06/22 08:59 Last Admin: 11/24/22 08:48 Dose: 2 sprays Folic Acid (Folic Acid 1 Mg Tab) 1 mg PO QAM [facility] Stop: 12/06/22 08:59 Last Admin: 11/24/22 08:48 Dose: 1 mg Gabapentin (Gabapentin 400 Mg Cap) 400 mg PO TID [facility] Stop: 12/05/22 20:59 Last Admin: 11/24/22 13:04 Dose: 400 mg Glucagon (Glucagon For Inj 1 Mg Vial) 1 mg SQ UD PRN; Protocol PRN Reason: Hypoglycemia Protocol Stop: 12/05/22 17:38 Glucose (Glucose 10 Tab/Tube) 4 - 8 tab PO UD PRN; Protocol PRN Reason: Hypoglycemia Treatment Stop: 12/05/22 17:38 Glucose (Glucose 40% Gel 15 Gm Tube) 15 - 30 gm PO UD PRN; Protocol PRN Reason: Hypoglycemia Protocol Stop: 12/05/22 17:38 Hydroxychloroquine Sulfate (Hydroxychloroquine Sulfate 200 Mg Tab) 400 mg PO HS [facility] Stop: 12/05/22 20:59 Last Admin: 11/23/22 20:51 Dose: 400 mg Furosemide 100 mg/ Dextrose 100 mls @ 40 mls/hr IV .Q2H30M [facility] Stop: 12/13/22 10:29 Last Admin: 11/24/22 14:11 Dose: 40 mg/hr, 40 mls/hr Promethazine HCl 12.5 mg/ (Sodium Chloride) 50.5 mls @ 202 mls/hr IV Q6H PRN PRN Reason: Nausea And Vomiting Stop: 12/15/22 00:06 Last Infusion: 11/15/22 02:00 Dose: Infused Ertapenem 1,000 mg/ Syringe 10 mls @ 2 mls/min IV Q24H [facility] Stop: 12/03/22 10:59 Last Admin: 11/24/22 10:33 Dose: 2 mls/min Insulin Aspart (Insulin Aspart Per Unit Charge) 0 units SC ACHS [facility] Stop: 12/05/22 20:59 Last Admin: 11/24/22 13:03 Dose: 10 units Insulin Glargine (Lantus Per Unit Charge) 10 units SQ BID [facility] Stop: 12/11/22 20:59 Last Admin: 11/24/22 08:39 Dose: 10 units Lactobacillus Acidophilus (Advanced Probiotic 1250 Mg Capsule) 1 cap PO QAM [facility] Stop: 12/06/22 08:59 Last Admin: 11/24/22 08:49 Dose: 1 cap Latanoprost (Latanoprost 0.005% Op Soln 2.5 Ml Btl) 1 drops OPB HS [facility] Stop: 12/05/22 20:59 Last Admin: 11/23/22 21:00 Dose: 1 drops Levothyroxine Sodium (Levothyroxine Sodium 125 Mcg Tablet) [facility] Stop: 12/06/22 06:29 Last Admin: 11/24/22 06:02 Dose: 125 mcg Loperamide HCl (Loperamide Hcl 2 Mg Cap) 2 mg PO Q3H PRN PRN Reason: Diarrhea Stop: 12/13/22 09:45 Last Admin: 11/22/22 22:51 Dose: 2 mg Lorazepam (Lorazepam 0.5 Mg Tab) 0.5 mg PO TID PRN PRN Reason: Anxiety Stop: 12/05/22 19:50 Last Admin: 11/23/22 22:55 Dose: 0.5 mg Magnesium Oxide (Magnesium Oxide 400 Mg Tab) 400 mg PO BID [facility] Stop: 12/06/22 20:59 Last Admin: 11/24/22 08:50 Dose: 400 mg Melatonin (Melatonin 3 Mg Tab) 6 mg PO [facility] Stop: 12/05/22 20:59 Last Admin: 11/23/22 22:55 Dose: 6 mg Menthol (Cough Drop (Sugar Free) Rob 24 Rob/1 Box) 1 rob BUCCAL TID PRN PRN Reason: Sore Throat Stop: 12/11/22 22:49 Last Admin: 11/11/22 23:23 Dose: 1 rob Metoprolol Succinate (Metoprolol Succ 25mg Ext Rel Tab) 12.5 mg PO QAM [facility] Stop: 12/18/22 08:59 Last Admin: 11/24/22 08:50 Dose: 12.5 mg Miscellaneous (Carbohydrates For Hypoglycemia ) 15 - 30 gm PO UD PRN PRN Reason: Hypoglycemia Protocol Stop: 12/05/22 17:38 Multivitamins/Minerals (Cerovite Adv Formula Tab) 1 [facility] [place] Stop: 12/06/22 08:59 Last Admin: 11/24/22 08:50 Dose: 1 tab Netarsudil (Netarsudil Mesylate 37 Drops/2.5 Ml Btl) 1 drops OPL [facility] Stop: 12/06/22 20:59 Last Admin: 11/23/22 21:01 Dose: 1 drops Nitroglycerin (Nitroglycerin Sl 0.4 Mg/Tab Tab) 0.4 mg SL Q5M PRN PRN Reason: Chest Pain Stop: 12/05/22 18:39 Nystatin (Nystatin Powder 15gm Btl) 1 appln EXT TID PRN PRN Reason: irritation Stop: 12/05/22 19:50 Last Admin: 11/07/22 21:52 Dose: 1 appln Pantoprazole Sodium (Pantoprazole 40 Mg Tab) 40 mg PO QAM [facility] Stop: 12/06/22 08:59 Last Admin: 11/24/22 08:51 Dose: 40 mg Potassium Chloride (Potassium Chloride Crtab 20 Meq Tabcr) 60 meq PO TIDM [facility] Stop: 12/17/22 11:59 Last Admin: 11/24/22 11:26 Dose: 60 meq Prednisone (Prednisone 5 Mg Tab) 5 mg PO QAM [facility] Stop: 12/06/22 08:59 Last Admin: 11/24/22 08:51 Dose: 5 mg Spironolactone (Spironolactone 25 Mg Tab) 25 mg PO DAILY [facility] Stop: 12/13/22 07:59 Last Admin: 11/24/22 08:51 Dose: 25 mg Tamsulosin HCl (Tamsulosin Hcl 0.4 Mg Cap) 0.4 mg PO HS [facility] Stop: 12/05/22 20:59 Last Admin: 11/23/22 20:54 Dose: 0.4 mg
--- NOTE | 2022-11-24 15:31 | Discharge Summary ---
Date of Service November 24, 2022 Admission HPI Per Admitting Provider This is a 72 y/o with a complicated medical history including combined systolic and diastolic heart failure, CAD s/p PCI with WALTER, aortic stenosis (suspected severe), tachy-wilfrido syndrome s/p PPM in 2021, persistent afib since 07/01, bilateral carotid bruits, insulin-requiring DM, blindness, rheumatoid arthritis, chronic prednisone use, LAQUITA on CPAP, CKD3a, hypothyroidism, HTN, open-angle glaucoma, recurrent liver cancer s/p recent placement of radiation beads, and other history as listed below who presents to the ED today with respiratory failure from fluid overload. Pt has a history of combined HFrEF but reports fluid status has been difficult to manage because of her blood pressure dropping with diuresis. She reports being up 40 lbs from baseline weight over the last several months. Specifically, she has noted worsening off the LE edema and subsequent wounds over the last two months. She notes that the wounds on her legs are continually seeping, and when she was seen at wound care they told her that the wounds will not heal until the edema improves. She has also noted progressive PATRICK and SOB at rest at times. She is sleeping in the recliner, but this is not new for her. Her diuretics were last adjust on 10/15/22 when cardiology added spironolactone 12.5 mg daily to the torsemide 20 mg in AM, 10 mg in PM that she was already taking. She has not noticed any significant improvement with this addition. She has occasional palpitations but denies chest pain. She checks her BP regularly at home and has been 90s/50s since the spironolactone was added. Today, when evaluated by EMS, she was noted to have respiratory failure with rales on exam - she was given nitro spray and placed on CPAP with improvement in her respiratory status. Since being in the ED, she has been stable on room air. Admission Exam Per Admitting Provider Constitutional: + obese; no acute distress Eyes: no scleral icterus, bilateral eyes with scant discharge secondary to e-mycin ointment Neck: trachea midline Respiratory: no respiratory distress and no labored breathing Auscultation: + diminished lung sounds and + rales (at bases) Cardiovascular: Rate/Rhythm: + irregularly irregular Heart Sounds: + murmur Vessels: radial pulses present 3-4+ bilateral LE edema to upper thighs, +pitting edema in flanks and lower abdomen Gastrointestinal (Abdomen): Inspection/Auscultation: + abdomen distended and normal bowel sounds Percussion/Palpation: + abdomen tender (RUQ) Musculoskeletal: Head/Neck/Chest: normocephalic, head atraumatic and neck supple Skin: stasis dermatitis bilateral LE with several open areas, serous weeping from open areas, left knee with annular erythematous rash with areas of confluence Neurologic: moves all extremities; no focal motor deficits and not confused Psychiatric: A+Ox3, euthymic affect Principal Diagnosis Aortic stenosis, acute on chronic combined systolic and diastolic heart failure, bilateral venous stasis leg ulcer Discharge Exam Sitting on a chair without any acute distress Constitutional well developed, well nourished and + morbidly obese; not ill appearing Eyes PERRL, conjunctivae normal, anicteric sclerae ENMT external ear and nose normal, oropharynx normal Neck trachea midline, no thyromegaly Respiratory no respiratory distress Auscultation: + diminished lung sounds; no crackles (Bibasal crackles) Cardiovascular Rate/Rhythm: regular rate and regular rhythm; not tachycardic Heart Sounds: normal S1, normal S2 and + murmur Extremities: + edema (1+ edema bilaterally with seeping of fluid) Gastrointestinal (Abdomen) Inspection/Auscultation: + abdomen distended and normal bowel sounds Percussion/Palpation: abdomen soft; abdomen nontender Neurologic normal touch/pain/proprioception and moves all extremities; no focal motor deficits Psychiatric A+Ox3, euthymic affect Lymphatic no cervical or axillary lymphadenopathy Discharge Data Allergies Allergy/AdvReac Type Severity Reaction Status Date / Time cephalexin Allergy Severe Anaphylaxis Verified 11/05/22 16:43 Cephalosporins Allergy Severe Anaphylaxis Verified 11/05/22 16:43 Sulfa (Sulfonamide Allergy Intermediate Hives Verified 11/05/22 16:43 Antibiotics) sulfamethoxazole Allergy Intermediate Hives Verified 11/05/22 16:43 [From Bactrim] trimethoprim [From Bactrim] Allergy Intermediate Hives Verified 11/05/22 16:43 butorphanol AdvReac Intermediate Rapid heart Verified 11/05/22 16:43 ciprofloxacin AdvReac Mild Nausea Verified 11/05/22 16:43 Consultations 11/05/22 15:44 ED Decision to Admit Stat 11/05/22 18:40 Consult Cardiology Routine Ordered Studies 11/05/22 17:35 US abdomen ltd ascites Urgent Hospital Course (1) Acute on chronic combined systolic (congestive) and diastolic (congestive) heart failure: 72 y/o with a complicated medical history including combined systolic and diastolic heart failure, CAD s/p PCI with WALTER, aortic stenosis (suspected severe), tachy-wilfrido syndrome s/p PPM in 2021, persistent afib since 07/01, bilateral carotid bruits, insulin-requiring DM, blindness, rheumatoid arthritis, chronic prednisone use, LAQUITA on CPAP, CKD3a, hypothyroidism, HTN, open-angle glaucoma, and recurrent liver cancer s/p recent placement of radiation beads. Presented with progressive shortness of breath over 5 weeks which did not improve even with increasing diuretics Her leg edema has been seeping liquid constantly Started with Lasix 40mg IV BID--> increased to lasix 60mg BID 11/08 40lb over ideal weight Lasix was then increased to 80 mg IV twice daily and added spironolactone 12.5 mg daily with supplemental potassium as needed Intravenous Lasix pushes were changed to a Lasix drip and this is ongoing with increase to drip and additional Lasix IV boluses intermittently cont to monitor strict I/Os, monitordaily standing weight, low salt diet, daily BMP. Still continue with intravenous Lasix drip-negative balance of more than 30 L as of today Will monitor electrolytes and kidney function (2) Aortic stenosis: TAVR indicated, cardiology considering inpatient transfer to [facility]. Awaiting transfer to [place] (3) Acquired thrombocytopenia: No PF4 antibodies found and PLT count is improving. This may have been a secondary thrombocytopenia from recent linezolid use. Consider DVT chemoprophylaxis once this resolves. (4) Cellulitis of right leg: Completed linezolid course. (5) Metabolic alkalosis: 2/2 diuresis. Cardiology considering zaroxyln. Cont CPAP at night. (6) Catheter-associated urinary tract infection: Asymptomatic bacteriuria present after matute catheter placement during this hospital stay. Starting ertapenem given multiple allergies and cont for 7 days. Ertapenem was started on 11/23/2022 at 11 AM and will be continued until (7) Venous stasis ulcers: She has chronic LE wounds for which she is following with wound care but she has been told that until the fluid overload is improved, her wounds will be unlikely to heal. some superficial Right leg cellulitis with extensive antibiotic allergy noted. Treated with a 7 day course of linezolid Dressing as per wound care which are currently in place. Advised to keep the legs elevated while in bed (8) Tinea corporis: Rash on left knee seems most consistent with tinea corporis - Started clotrimazole 1% cream BID for a 14 days course -completed 14 day course with clotrimazole cream -still some evidence of rash present -LFTs are WNL, bililrubin is improved -clotrimazole cream was restarted and will cont for another two weeks (need to cont 1 week past resolution) (9) Chronic kidney disease, stage 3: Chronic, stable despite aggressive diuresis. Creatinine remains stable and will monitor electrolytes (10) Diabetes mellitus, type 2: Chronic, stable. Continue basal bolus insulin. Currently euglycemic. Will update A1c. (11) Hypothyroidism: Chronic, stable. Continue thyroid replacement as ordered (12) Sleep apnea: Reports insomnia is somewhat associated with not having her home mask. CPAP home device now in room (13) Rheumatoid arthritis: chronic, stable. Methotrexate currently on hold due to leg wounds - will continue prednisone and plaquenil Remains free from any significant arthritic pain (14) Iron deficiency anemia: chronic, stable. Cont current therapy. (15) Hepatocellular carcinoma: chronic. Dx with HCC in 2019 after MRI which noted a liver lesion 3.7cm x 3.5 cm. A biopsy in 2018 was negative for malignancy. A followup MRI in August 2019 showed the mass had increased in size. FNA liver performed and consistent with HCC. Underwent bland embolization on 11/02/2019 Followup MRI September 2020 showed progression Repeat bland embolization on 11/14/20 Per oncology she continues to be at risk for recurrent/metastatic disease There was a recent CT scan showing two new lesions and she underwent another embolization on 10/28/22 Current plan is to do a followup CT scan in 4 months. (16) Morbid obesity: Lifestyle changes recommended, BMI 48. (17) Blindness: Assist with ADLs and IADLs as needed. Code status: Full code but no prolonged heroic measures. Son is her POA DVT Prophylaxis: held in setting of worsening thrombocytopenia. Disposition-- Evaluated by PT/OT, rehab recommended with plans for [facility], however, Cardiology considering inpatient transfer for TAVR. Total Time Total Time Spent Total Time Spent (In Minutes): 35 minutes Discharge Plan Discharge Items Patient Disposition: Transfer Acute Care Hospital Reason For Visit: ACUTE ON CHRONNIC CHF Discharge Diagnosis: Aortic stenosis, acute on chronic combined systolic and diastolic heart failure, bilateral venous stasis leg ulcer Condition on Discharge: Fair Activity: Resume your previous activity Non-emergency contact: Primary Care Provider Call non-emergency contact if: you have any medication questions and your sy mptoms worsen Follow-up/Referrals: David Umanzor MD [Primary Care Provider] - (Please make an appointment with good PCP within 1 week following discharge from the facility) Diet: Carb Consistent or DM2 and Heart Healthy Fluids: 1800ml (7 cups) Addtl Attending Provider Instructions: She was transferred to [place] for possible TAVR procedure All of her inpatient medications were continued on transfer as below: Current Inpatient Medications Acetaminophen (Acetaminophen 325 Mg Tab) 650 mg PO Q4H PRN PRN Reason: Pain or Fever Stop: 12/05/22 18:39 Last Admin: 11/06/22 08:40 Dose: 650 mg Acetaminophen (Acetaminophen 500 Mg Tab) 1,000 mg PO HS LIBBY Stop: 12/05/22 20:59 Last Admin: 11/23/22 20:47 Dose: 1,000 mg Al Hydrox/Mg Hydrox/Simethicone (Aluminum/Magnesium/Simeth (Maalox Max) 30 Ml Udc) 30 ml PO Q6H PRN PRN Reason: Heartburn Stop: 12/13/22 19:30 Last Admin: 11/23/22 21:33 Dose: 30 ml Lipase/Protease/Amylase (Pancreaze (Lipase 10,500u) Cap) 2 cap PO QIDM LIBBY Stop: 12/05/22 20:59 Last Admin: 11/24/22 11:26 Dose: 2 cap Lipase/Protease/Amylase (Pancreaze (Lipase 4,200u) Cap) 1 cap PO QIDM LIBBY Stop: 12/05/22 20:59 Last Admin: 11/24/22 11:26 Dose: 1 cap Ascorbic Acid (Ascorbic Acid 500 Mg Tab) 500 mg PO QAM LIBBY Stop: 12/06/22 08:59 Last Admin: 11/24/22 08:45 Dose: 500 mg Aspirin (Aspirin 81 Mg Ectab) 81 mg PO QAM LIBBY Stop: 12/06/22 08:59 Last Admin: 11/24/22 08:46 Dose: 81 mg Atorvastatin Calcium (Atorvastatin 40 Mg Tab) 40 mg PO HS LIBBY Stop: 12/05/22 20:59 Last Admin: 11/23/22 20:49 Dose: 40 mg Betaxolol HCl (Betaxolol Hcl 0.5% Op 5 Ml Btl) 1 drops OPL AMHS LIBBY Stop: 12/05/22 20:59 Last Admin: 11/24/22 08:46 Dose: 1 drops Brimonidine Tartrate (Brimonidine Tartrate 0.2% 5ml) 1 drops OPL BID LIBBY Stop: 12/05/22 20:59 Last Admin: 11/24/22 08:46 Dose: 1 drops Calcium Carbonate (Calcium Carbonate 500 Mg Chewable Tab) 500 mg PO QID PRN PRN Reason: Indigestion Stop: 12/09/22 18:41 Last Admin: 11/22/22 21:33 Dose: 500 mg Clopidogrel Bisulfate (Clopidogrel Bisulfate 75 Mg Tab) 75 mg PO QAM LIBBY Stop: 12/06/22 08:59 Last Admin: 11/24/22 08:47 Dose: 75 mg Clotrimazole (Clotrimazole 1% Cr 15 Gm Tube) 1 appln EXT BID LIBBY Stop: 12/21/22 10:44 Last Admin: 11/24/22 08:47 Dose: 1 appln Cyanocobalamin (Cyanocobalamin (B-12) 500 Mcg Tablet) 1,500 mcg PO QPM LIBBY Stop: 12/05/22 20:59 Last Admin: 11/23/22 20:49 Dose: 1,500 mcg Dextrose (Dextrose 50% 50 Ml Syringe) 25 - 50 ml IV UD PRN; Protocol PRN Reason: Hypoglycemia Protocol Stop: 12/05/22 17:38 Enoxaparin Sodium (Enoxaparin Inj 40 Mg/0.4 Ml Syr) 40 mg SQ QAM LIBBY Stop: 12/06/22 08:59 Last Admin: 11/24/22 10:32 Dose: 40 mg Erythromycin (Erythromycin Op Oint 5 Mg/Gm 3.5 Gm Tube) 1 appln OP QID LIBBY Stop: 11/25/22 21:44 Last Admin: 11/24/22 14:12 Dose: 1 appln Ferrous Sulfate (Ferrous Sulfate 325 Mg Tab) 325 mg PO DAILY LIBBY Stop: 12/06/22 08:59 Last Admin: 11/24/22 08:48 Dose: 325 mg Fluticasone Propionate (Fluticasone Propionate Na Spr 16 Gm Btl) 2 sprays NA QAM LIBBY Stop: 12/06/22 08:59 Last Admin: 11/24/22 08:48 Dose: 2 sprays Folic Acid (Folic Acid 1 Mg Tab) 1 mg PO QAM LIBBY Stop: 12/06/22 08:59 Last Admin: 11/24/22 08:48 Dose: 1 mg Gabapentin (Gabapentin 400 Mg Cap) 400 mg PO TID LIBBY Stop: 12/05/22 20:59 Last Admin: 11/24/22 13:04 Dose: 400 mg Glucagon (Glucagon For Inj 1 Mg Vial) 1 mg SQ UD PRN; Protocol PRN Reason: Hypoglycemia Protocol Stop: 12/05/22 17:38 Glucose (Glucose 10 Tab/Tube) 4 - 8 tab PO UD PRN; Protocol PRN Reason: Hypoglycemia Treatment Stop: 12/05/22 17:38 Glucose (Glucose 40% Gel 15 Gm Tube) 15 - 30 gm PO UD PRN; Protocol PRN Reason: Hypoglycemia Protocol Stop: 12/05/22 17:38 Hydroxychloroquine Sulfate (Hydroxychloroquine Sulfate 200 Mg Tab) 400 mg PO HS LIBBY Stop: 12/05/22 20:59 Last Admin: 11/23/22 20:51 Dose: 400 mg Furosemide 100 mg/ Dextrose 100 mls @ 40 mls/hr IV .Q2H30M LIBBY Stop: 12/13/22 10:29 Last Admin: 11/24/22 14:11 Dose: 40 mg/hr, 40 mls/hr Promethazine HCl 12.5 mg/ (Sodium Chloride) 50.5 mls @ 202 mls/hr IV Q6H PRN PRN Reason: Nausea And Vomiting Stop: 12/15/22 00:06 Last Infusion: 11/15/22 02:00 Dose: Infused Ertapenem 1,000 mg/ Syringe 10 mls @ 2 mls/min IV Q24H LIBBY Stop: 12/03/22 10:59 Last Admin: 11/24/22 10:33 Dose: 2 mls/min Insulin Aspart (Insulin Aspart Per Unit Charge) 0 units SC ACHS LIBBY Stop: 12/05/22 20:59 Last Admin: 11/24/22 13:03 Dose: 10 units Insulin Glargine (Lantus Per Unit Charge) 10 units SQ BID [facility] Stop: 12/11/22 20:59 Last Admin: 11/24/22 08:39 Dose: 10 units Lactobacillus Acidophilus (Advanced Probiotic 1250 Mg Capsule) 1 cap PO QAM [facility] Stop: 12/06/22 08:59 Last Admin: 11/24/22 08:49 Dose: 1 cap Latanoprost (Latanoprost 0.005% Op Soln 2.5 Ml Btl) 1 drops OPB [facility] Stop: 12/05/22 20:59 Last Admin: 11/23/22 21:00 Dose: 1 drops Levothyroxine Sodium (Levothyroxine Sodium 125 Mcg Tablet) 125 mcg PO DAILYBB [facility] Stop: 12/06/22 06:29 Last Admin: 11/24/22 06:02 Dose: 125 mcg Loperamide HCl (Loperamide Hcl 2 Mg Cap) 2 mg PO Q3H PRN PRN Reason: Diarrhea Stop: 12/13/22 09:45 Last Admin: 11/22/22 22:51 Dose: 2 mg Lorazepam (Lorazepam 0.5 Mg Tab) 0.5 mg PO TID PRN PRN Reason: Anxiety Stop: 12/05/22 19:50 Last Admin: 11/23/22 22:55 Dose: 0.5 mg Magnesium Oxide (Magnesium Oxide 400 Mg Tab) 400 mg PO BID [facility] Stop: 12/06/22 20:59 Last Admin: 11/24/22 08:50 Dose: 400 mg Melatonin (Melatonin 3 Mg Tab) 6 mg PO [facility] Stop: 12/05/22 20:59 Last Admin: 11/23/22 22:55 Dose: 6 mg Menthol (Cough Drop (Sugar Free) Rob 24 Rob/1 Box) 1 rob BUCCAL TID PRN PRN Reason: Sore Throat Stop: 12/11/22 22:49 Last Admin: 11/11/22 23:23 Dose: 1 rob Metoprolol Succinate (Metoprolol Succ 25mg Ext Rel Tab) 12.5 mg PO QAM [facility] Stop: 12/18/22 08:59 Last Admin: 11/24/22 08:50 Dose: 12.5 mg Miscellaneous (Carbohydrates For Hypoglycemia ) 15 - 30 gm PO UD PRN PRN Reason: Hypoglycemia Protocol Stop: 12/05/22 17:38 Multivitamins/Minerals (Cerovite Adv Formula Tab) 1 tab PO QAM [facility] Stop: 12/06/22 08:59 Last Admin: 11/24/22 08:50 Dose: 1 tab Netarsudil (Netarsudil Mesylate 37 Drops/2.5 Ml Btl) 1 drops OPL HS LIBBY Stop: 12/06/22 20:59 Last Admin: 11/23/22 21:01 Dose: 1 drops Nitroglycerin (Nitroglycerin Sl 0.4 Mg/Tab Tab) 0.4 mg SL Q5M PRN PRN Reason: Chest Pain Stop: 12/05/22 18:39 Nystatin (Nystatin Powder 15gm Btl) 1 appln EXT TID PRN PRN Reason: irritation Stop: 12/05/22 19:50 Last Admin: 11/07/22 21:52 Dose: 1 appln Pantoprazole Sodium (Pantoprazole 40 Mg Tab) 40 mg PO QAM [facility] Stop: 12/06/22 08:59 Last Admin: 11/24/22 08:51 Dose: 40 mg Potassium Chloride (Potassium Chloride Crtab 20 Meq Tabcr) 60 meq PO TIDM LIBBY Stop: 12/17/22 11:59 Last Admin: 11/24/22 11:26 Dose: 60 meq Prednisone (Prednisone 5 Mg Tab) 5 mg PO QAM [facility] Stop: 12/06/22 08:59 Last Admin: 11/24/22 08:51 Dose: 5 mg Spironolactone (Spironolactone 25 Mg Tab) 25 mg PO DAILY [facility] Stop: 12/13/22 07:59 Last Admin: 11/24/22 08:51 Dose: 25 mg Tamsulosin HCl (Tamsulosin Hcl 0.4 Mg Cap) 0.4 mg PO HS LIBBY Stop: 12/05/22 20:59 Last Admin: 11/23/22 20:54 Dose: 0.4 mg Pending Studies at Discharge: No Stand-Alone Forms: My [facility] Skilled Items Patient informed of condition?: Yes DNR: No Discharge Level of Care: Other Communicable Disease: No Discharge Prognosis: Stable Lines: Peripheral IV Urinary Catheter: Yes Medications and DC Order Prescriptions: Continued tamsulosin 0.4 mg capsule 0.4 mg PO HS Qty: 30 5RF atorvastatin 40 mg Tablet 40 mg PO HS gabapentin 400 mg Capsule 400 mg PO TID prednisone 5 mg Tablet 5 mg PO QAM torsemide 10 mg Tablet 20 mg PO QAM lorazepam 0.5 mg Tablet 0.5 mg PO TID PRN (Reason: Anxiety) meclizine 25 mg Tablet 25 mg PO TID PRN (Reason: Dizziness) erythromycin 5 mg/gram (0.5 %) Ointment 1 applic OPB QID Patient Comments: left eye levothyroxine 125 mcg Tablet 125 mcg PO QAM nitroglycerin 0.4 mg Tablet, Sublingual 0.4 mg sublingual UD PRN (Reason: Chest Pain) Rx Instructions: i tab every 5 min as needed up to 3 doses in 15 min aspirin [Aspirin Childrens] 81 mg Tablet,Chewable 81 mg PO QAM folic acid 1 mg Tablet 1 mg PO QAM hydroxychloroquine [Plaquenil] 200 mg Tablet 400 mg PO HS fluticasone propionate [Flonase Allergy Relief] 50 mcg/actuation Hawkins,Suspension 2 spray INTRANASAL QAM multivitamin with iron Tablet 1 tab PO QAM omeprazole 20 mg Tablet,Delayed Release (Dr/Ec) 20 mg PO QAM Biotene Moisturizing Mouth Hawkins,Non-Aerosol 1 spray MUCOUS MEMBRANE QID latanoprost (PF) 0.005 % Drops 1 drp OPB HS Creon 24,000-76,000 -120,000 unit capsule,delayed release(DR/EC) 1 cap PO QID Rx Instructions: takes with meals and snacks brimonidine 0.2 % drops 1 drp OPL BID Patient Comments: in left eye cyanocobalamin (vitamin B-12) [Vitamin B-12] 1,000 mcg Tablet 1,500 mcg PO QPM methotrexate sodium 2.5 mg tablet 10 mg PO .HOLD insulin glargine [Lantus U-100 Insulin] 100 unit/mL Solution 40 unit SUBCUT DAILY Rx Instructions: daily am insulin aspart U-100 [Novolog FlexPen U-100 Insulin] 100 unit/mL (3 mL) Insulin Pen See Rx Instructions .ROUTE .COMPLEX Rx Instructions: 10 units am, 4 units at noon,10 units with dinner. ammonium lactate 12 % Cream 1 applic TOPICAL HS PRN (Reason: Afected area) metoprolol succinate 50 mg tablet extended release 24 hr 25 mg PO BID potassium chloride 10 mEq tablet extended release 10 meq PO DAILY nystatin 100,000 unit/gram powder 1 applic TOPICAL TID PRN (Reason: .irritation) tizanidine 2 mg tablet 2 mg PO Q6 PRN (Reason: Muscle Spasm) torsemide 10 mg Tablet 10 mg PO .Q AFTERNOON acetaminophen [Tylenol Extra Strength] 500 mg Tablet 500 mg PO HS spironolactone 25 mg Tablet 12.5 mg PO QAM ascorbic acid (vitamin C) [Vitamin C] 500 mg Tablet 500 mg PO QAM potassium citrate 10 mEq (1,080 mg) tablet extended release 15 meq PO BID Vitron-C 65 mg iron- 125 mg Tablet,Delayed Release (Dr/Ec) 1 tab PO DAILY hydrocodone-acetaminophen 5-325 mg Tablet 1 tab PO Q6H PRN (Reason: Pain,mild) melatonin 5 mg Tablet 5 mg PO HS Rhopressa 0.02 % drops 1 drp OPL HS betaxolol 0.5 % drops 1 drp OPL [facility] Patient Comments: to left eye Rx Instructions: apply to affected eye magnesium oxide 400 mg (241.3 mg magnesium) tablet 400 mg PO MOWE Rx Instructions: take 400mg once a day on tuesday,tuesday,tuesday only Probiotic Daily 1 cap PO QAM clopidogrel [Plavix] 75 mg Tablet 75 mg PO QAM Discharge Orders: Discharge Order (Routine); Ordered 11/24/22 Ordered By: Kenneth Flores/Other Patient Handouts: Managing Type 2 Diabetes Admission Data Admit Date/Time: 11/05/22 17:21 Attending Provider: Kenneth Peraza Admit Provider: Yola Webb Primary Care Provider: David Umanzor Other Providers: Yola Webb ; Eduardo Roberts ; [place] ; [facility] ; [facility]
[2022-11-24 16:52] LABS: BUN Creatinine Ratio 29.9 (10-20); Calcium 9.3 mg/dl (8.6-10.3); Creatinine Clr Calc Pharmacy 46.7 ml/min; Est GFR (African American) 45.8 ml/min; Est GFR (Non-African American) 39.5 ml/min; Potassium 4.9 mmol/L (3.5-5.1)
[2022-11-24] MEDS: ACETAMINOPHEN 500 MG TAB PO SCH (20:22)
[2022-11-24] MEDS: ATORVASTATIN 40 MG TAB PO SCH (20:23)
[2022-11-24] MEDS: CYANOCOBALAMIN (B-12) 500 MCG TABLET PO SCH (20:24)
[2022-11-24] MEDS: HYDROXYCHLOROQUINE SULFATE 200 MG TAB PO SCH (20:25)
[2022-11-24] MEDS: TAMSULOSIN HCL 0.4 MG CAP PO SCH (20:28)
[2022-11-24] MEDS: NETARSUDIL MESYLATE 37 DROPS/2.5 ML BTL OPL SCH (20:29)
[2022-11-24] MEDS: LATANOPROST 0.005% OP SOLN 2.5 ML BTL OPB SCH (20:29)
[2022-11-24] MEDS: ALUMINUM/MAGNESIUM/SIMETH (MAALOX MAX) 30 ML UDC PO PRN (21:04)
[2022-11-24] MEDS: MELATONIN 3 MG TAB PO SCH (23:28)
[2022-11-24] MEDS: LORazepam 0.5 MG TAB PO PRN (23:34)
[2022-11-25] MEDS: FUROSEMIDE 100 MG in DEXTROSE 5% 90 ML IV SCH ×8 (00:35→16:24)
[2022-11-25] MEDS: LEVOTHYROXINE SODIUM 125 MCG TABLET PO SCH (06:01)
[2022-11-25 08:04] LABS: Potassium 3.6 mmol/L (3.5-5.1)
[2022-11-25 08:05] LABS: BUN Creatinine Ratio 28.9 (10-20); Calcium 9.5 mg/dl (8.6-10.3); Creatinine Clr Calc Pharmacy 41.8 ml/min; Est GFR (African American) 40.2 ml/min; Est GFR (Non-African American) 34.7 ml/min
--- NOTE | 2022-11-25 08:09 | Cardiology Progress Note ---
Date of Service November 25, 2022 Assessment & Plan (1) Acute on chronic combined systolic (congestive) and diastolic (congestive) heart failure: (2) Aortic stenosis: Admission and Anticipated Discharge Date Admission Date: November 05, 2022 Supervising Physician Co-Signing Physician Notes Attending Staff: Pt was seen and evaluated with [facility] staff. 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 Case reviewed Markedly volume overloaded + JVP 18 cmH20 S1 - murmur - Muted S2 Decreased BS at Right base + Abdominal Wall Edema +3 Bilateral LE edema extending to the inguinal folds Pt is making progress with volume Degree of volume overload is severe but improving ECHOcardiogram: 08/2022 LVEF 25% AoV Peak gradient 32 Aov Mean grdient 16 CHAPO .7-.8 cm2 Plan: Aggressive diuresis Continue Lasix infusion to 40 mg IV/hr (max) STANDING WEIGHT DAILY Weight - 113 kg - was 114 kg (Standing) MARIXA - OFF Continue Toprol XL 12.5 mg po per day; HR 78 BPM BID electrolyte check K+ goal 4.5-5 KCL 60 meq po TID Supplemental K+ as needed to achieve goal Continue Aldactone 25 mg po per day Mag goal >2 + Stent Continue ASA 81 mg po per day Continue Plavix 75 mg po per day Continue Lipitor 40 mg po per day LDL (PENDING) Investigated issues re: Liver prior to transfer. Primary oncologist felt that her malignancy would not preclude consideration for aortic valve replacement I will call [place] [facility] possible [place] Plannned transfer [place] [facility] [place] further evaluation and management of acute on chronic combined heart failure + TAVR consideration. Dr Dennis Núñez is the accepting physician. Dr Manolo Millan is the accepting Interventionalist Await[place] at [facility] Mobilize patient Frank Sheldon Dylan Saravia Subjective Events overnight: * Converted to NSR * Ongoing diuresis Subjective: * No complaints * No chest pain Review of Systems Review of Systems: All systems reviewed & are unremarkable except as noted in HPI & below Physical Exam Physical Exam: General: Alert, no distress, well nourished, well developed, comfortable and cooperative HENT: Normocephalic. Atraumatic. Neck: + JVD. - 10 cmH20 Heart: Distant heart sounds. Regular at 76 bpm. Grade II/ systolic murmur. Lungs: Decreased at the bases. Bibasilar rales. No wheeze. Abdomen: +BS. Distended. Nontender. No masses. Abdominal wall edema - improving but still present Extremities: 1-2+ pitting edema, diffuse. No clubbing. No cyanosis Skin: chronic venous changes Limited neurological examination: No focal deficit. Results & Data Vital Signs (Past 12 Hours) Vital Signs Temp Pulse Pulse Resp BP Pulse Ox O2 Del Method 11/25/22 02:41 36.5 C 67 16 116/81 97 BiPAP 11/25/22 01:00 Room Air 11/24/22 22:30 60 11/24/22 22:44 36.7 C 67 18 121/81 93 Room Air Laboratory Results Comprehensive Metabolic Panel 11/24/22 11/25/22 Range/Units 15:51 06:18 Sodium 137 138 (136-145) mmol/L Potassium 4.9 D 3.6 D (3.5-5.1) mmol/L Chloride 94 L 92 L (98-107) mmol/L Carbon Dioxide 35 H 39 H (21-32) mmol/L BUN 40 H 43 H (6-23) mg/dl Creatinine 1.34 H 1.49 H (0.6-1.2) mg/dl Glucose 193 H 117 H (70-99(Fasting)) mg/dl Calcium 9.3 9.5 (8.6-10.3) mg/dl Intake and Output 11/24/22 11/25/22 11/25/22 22:59 06:59 14:59 Intake Total 492 / 1904.666 650 / 1904.666 Output Total 2900 / 4850 1300 / 4850 Balance -2408 / -2945.334 -650 / -2945.334 Intake: IV 292 / 894.666 300 / 894.666 Furosemide 100 mg In Dextrose 5 292 / 874.666 300 / 874.666 % 90 ml @ 40 MG/HR 40 mls/hr IV .Q2H30M [facility] Rx#:[id number] Oral 200 / 1010 350 / 1010 Output: Urine Amount (Catheter) 2900 / 4200 1300 / 4200 Red/Indwelling 2900 / 4200 1300 / 4200 Other: Weight 113.8 kg Weight Measurement Method Standing Scale Medications Administered Current Inpatient Medications Acetaminophen (Acetaminophen 325 Mg Tab) 650 mg PO Q4H PRN PRN Reason: Pain or Fever Stop: 12/05/22 18:39 Last Admin: 11/06/22 08:40 Dose: 650 mg Acetaminophen (Acetaminophen 500 Mg Tab) 1,000 mg PO HS LIBBY Stop: 12/05/22 20:59 Last Admin: 11/24/22 20:22 Dose: 1,000 mg Al Hydrox/Mg Hydrox/Simethicone (Aluminum/Magnesium/Simeth (Maalox Max) 30 Ml Udc) 30 ml PO Q6H PRN PRN Reason: Heartburn Stop: 12/13/22 19:30 Last Admin: 11/24/22 21:04 Dose: 30 ml Lipase/Protease/Amylase (Pancreaze (Lipase 10,500u) Cap) 2 cap PO QIDM LIBBY Stop: 12/05/22 20:59 Last Admin: 11/24/22 20:26 Dose: 2 cap Lipase/Protease/Amylase (Pancreaze (Lipase 4,200u) Cap) 1 cap PO QIDM LIBBY Stop: 12/05/22 20:59 Last Admin: 11/24/22 20:26 Dose: 1 cap Ascorbic Acid (Ascorbic Acid 500 Mg Tab) 500 mg PO QAM [facility] Stop: 12/06/22 08:59 Last Admin: 11/24/22 08:45 Dose: 500 mg Aspirin (Aspirin 81 Mg Ectab) 81 mg PO QAM LIBBY Stop: 12/06/22 08:59 Last Admin: 11/24/22 08:46 Dose: 81 mg Atorvastatin Calcium (Atorvastatin 40 Mg Tab) 40 mg PO HS LIBBY Stop: 12/05/22 20:59 Last Admin: 11/24/22 20:23 Dose: 40 mg Betaxolol HCl (Betaxolol Hcl 0.5% Op 5 Ml Btl) 1 drops OPL [facility] LIBBY Stop: 12/05/22 20:59 Last Admin: 11/24/22 20:32 Dose: 1 drops Brimonidine Tartrate (Brimonidine Tartrate 0.2% 5ml) 1 drops OPL BID LIBBY Stop: 12/05/22 20:59 Last Admin: 11/24/22 20:31 Dose: 1 drops Calcium Carbonate (Calcium Carbonate 500 Mg Chewable Tab) 500 mg PO QID PRN PRN Reason: Indigestion Stop: 12/09/22 18:41 Last Admin: 11/22/22 21:33 Dose: 500 mg Clopidogrel Bisulfate (Clopidogrel Bisulfate 75 Mg Tab) 75 mg PO QAM [facility] Stop: 12/06/22 08:59 Last Admin: 11/24/22 08:47 Dose: 75 mg Clotrimazole (Clotrimazole 1% Cr 15 Gm Tube) 1 appln EXT BID [facility] Stop: 12/21/22 10:44 Last Admin: 11/24/22 20:30 Dose: 1 appln Cyanocobalamin (Cyanocobalamin (B-12) 500 Mcg Tablet) 1,500 mcg PO QPM [facility] Stop: 12/05/22 20:59 Last Admin: 11/24/22 20:24 Dose: 1,500 mcg Dextrose (Dextrose 50% 50 Ml Syringe) 25 - 50 ml IV UD PRN; Protocol PRN Reason: Hypoglycemia Protocol Stop: 12/05/22 17:38 Enoxaparin Sodium (Enoxaparin Inj 40 Mg/0.4 Ml Syr) [facility] Stop: 12/06/22 08:59 Last Admin: 11/24/22 10:32 Dose: 40 mg Erythromycin (Erythromycin Op Oint 5 Mg/Gm 3.5 Gm Tube) 1 appln OP QID [facility] Stop: 11/25/22 21:44 Last Admin: 11/24/22 20:25 Dose: 1 appln Ferrous Sulfate (Ferrous Sulfate 325 Mg Tab) 325 mg PO DAILY [facility] Stop: 12/06/22 08:59 Last Admin: 11/24/22 08:48 Dose: 325 mg Fluticasone Propionate (Fluticasone Propionate Na Spr 16 Gm Btl) 2 sprays NA QAM [facility] Stop: 12/06/22 08:59 Last Admin: 11/24/22 08:48 Dose: 2 sprays Folic Acid (Folic Acid 1 Mg Tab) 1 mg PO QAM [facility] Stop: 12/06/22 08:59 Last Admin: 11/24/22 08:48 Dose: 1 mg Gabapentin (Gabapentin 400 Mg Cap) 400 mg PO TID [facility] Stop: 12/05/22 20:59 Last Admin: 11/24/22 20:21 Dose: 400 mg Glucagon (Glucagon For Inj 1 Mg Vial) 1 mg SQ UD PRN; Protocol PRN Reason: Hypoglycemia Protocol Stop: 12/05/22 17:38 Glucose (Glucose 10 Tab/Tube) 4 - 8 tab PO UD PRN; Protocol PRN Reason: Hypoglycemia Treatment Stop: 12/05/22 17:38 Glucose (Glucose 40% Gel 15 Gm Tube) 15 - 30 gm PO UD PRN; Protocol PRN Reason: Hypoglycemia Protocol Stop: 12/05/22 17:38 Hydroxychloroquine Sulfate (Hydroxychloroquine Sulfate 200 Mg Tab) 400 mg PO HS [facility] Stop: 12/05/22 20:59 Last Admin: 11/24/22 20:25 Dose: 400 mg Furosemide 100 mg/ Dextrose 100 mls @ 40 mls/hr IV .Q2H30M [facility] Stop: 12/13/22 10:29 Last Admin: 11/25/22 05:57 Dose: 40 mg/hr, 40 mls/hr Promethazine HCl 12.5 mg/ (Sodium Chloride) 50.5 mls @ 202 mls/hr IV Q6H PRN PRN Reason: Nausea And Vomiting Stop: 12/15/22 00:06 Last Infusion: 11/15/22 02:00 Dose: Infused Ertapenem 1,000 mg/ Syringe 10 mls @ 2 mls/min IV Q24H [facility] Stop: 12/03/22 10:59 Last Admin: 11/24/22 10:33 Dose: 2 mls/min Insulin Aspart (Insulin Aspart Per Unit Charge) 0 units SC ACHS [facility] Stop: 12/05/22 20:59 Last Admin: 11/24/22 20:32 Dose: 6 units Insulin Glargine (Lantus Per Unit Charge) 10 units SQ BID [facility] Stop: 12/11/22 20:59 Last Admin: 11/24/22 20:32 Dose: 10 units Lactobacillus Acidophilus (Advanced Probiotic 1250 Mg Capsule) 1 cap PO QAM [facility] Stop: 12/06/22 08:59 Last Admin: 11/24/22 08:49 Dose: 1 cap Latanoprost (Latanoprost 0.005% Op Soln 2.5 Ml Btl) 1 drops OPB HS [facility] Stop: 12/05/22 20:59 Last Admin: 11/24/22 20:29 Dose: 1 drops Levothyroxine Sodium (Levothyroxine Sodium 125 Mcg Tablet) 125 mcg PO DAILYBB [facility] Stop: 12/06/22 06:29 Last Admin: 11/25/22 06:01 Dose: 125 mcg Loperamide HCl (Loperamide Hcl 2 Mg Cap) 2 mg PO Q3H PRN PRN Reason: Diarrhea Stop: 12/13/22 09:45 Last Admin: 11/22/22 22:51 Dose: 2 mg Lorazepam (Lorazepam 0.5 Mg Tab) 0.5 mg PO TID PRN PRN Reason: Anxiety Stop: 12/05/22 19:50 Last Admin: 11/24/22 23:34 Dose: 0.5 mg Magnesium Oxide (Magnesium Oxide 400 Mg Tab) 400 mg PO BID LIBBY Stop: 12/06/22 20:59 Last Admin: 11/24/22 20:27 Dose: 400 mg Melatonin (Melatonin 3 Mg Tab) 6 mg PO HS LIBBY Stop: 12/05/22 20:59 Last Admin: 11/24/22 23:28 Dose: 6 mg Menthol (Cough Drop (Sugar Free) Rob 24 Rob/1 Box) 1 rob BUCCAL TID PRN PRN Reason: Sore Throat Stop: 12/11/22 22:49 Last Admin: 11/11/22 23:23 Dose: 1 rob Metoprolol Succinate (Metoprolol Succ 25mg Ext Rel Tab) 12.5 mg PO QAM LIBBY Stop: 12/18/22 08:59 Last Admin: 11/24/22 08:50 Dose: 12.5 mg Miscellaneous (Carbohydrates For Hypoglycemia ) 15 - 30 gm PO UD PRN PRN Reason: Hypoglycemia Protocol Stop: 12/05/22 17:38 Multivitamins/Minerals (Cerovite Adv Formula Tab) 1 tab PO QAM LIBBY Stop: 12/06/22 08:59 Last Admin: 11/24/22 08:50 Dose: 1 tab Netarsudil (Netarsudil Mesylate 37 Drops/2.5 Ml Btl) 1 drops OPL HS LIBBY Stop: 12/06/22 20:59 Last Admin: 11/24/22 20:29 Dose: 1 drops Nitroglycerin (Nitroglycerin Sl 0.4 Mg/Tab Tab) 0.4 mg SL Q5M PRN PRN Reason: Chest Pain Stop: 12/05/22 18:39 Nystatin (Nystatin Powder 15gm Btl) 1 appln EXT TID PRN PRN Reason: irritation Stop: 12/05/22 19:50 Last Admin: 11/07/22 21:52 Dose: 1 appln Pantoprazole Sodium (Pantoprazole 40 Mg Tab) 40 mg PO QAM [facility] Stop: 12/06/22 08:59 Last Admin: 11/24/22 08:51 Dose: 40 mg Potassium Chloride (Potassium Chloride Crtab 20 Meq Tabcr) 60 meq PO TIDM [facility] Stop: 12/17/22 11:59 Last Admin: 11/24/22 17:21 Dose: 60 meq Prednisone (Pred[facility]one 5 Mg Tab) [facility] Stop: 12/06/22 08:59 Last Admin: 11/24/22 08:51 Dose: 5 mg Spironolactone (Spironolactone 25 Mg Tab) 25 mg PO DAILY [facility] Stop: 12/13/22 07:59 Last Admin: 11/24/22 08:51 Dose: 25 mg Tamsulosin HCl (Tamsulosin Hcl 0.4 Mg Cap) 0.4 mg PO HS [facility] Stop: 12/05/22 20:59 Last Admin: 11/24/22 20:28 Dose: 0.4 mg
[2022-11-25] MEDS: FLUTICASONE PROPIONATE NA SPR 16 GM BTL SCH (08:49)
[2022-11-25] MEDS: SPIRONOLACTONE 25 MG TAB PO SCH (08:49)
[2022-11-25] MEDS: FOLIC ACID 1 MG TAB PO SCH (08:50)
[2022-11-25] MEDS: CEROVITE ADV FORMULA TAB PO SCH (08:50)
[2022-11-25] MEDS: PANCREAZE (LIPASE 4,200U) CAP PO SCH ×3 (08:50→17:33)
[2022-11-25] MEDS: PANCREAZE (LIPASE 10,500U) CAP PO SCH ×3 (08:50→17:33)
[2022-11-25] MEDS: ASPIRIN 81 MG ECTAB PO SCH (08:50)
[2022-11-25] MEDS: MAGNESIUM OXIDE 400 MG TAB PO SCH (08:50)
[2022-11-25] MEDS: GABAPENTIN 400 MG CAP PO SCH ×2 (08:50→13:42)
[2022-11-25] MEDS: CLOPIDOGREL BISULFATE 75 MG TAB PO SCH (08:51)
[2022-11-25] MEDS: METOPROLOL SUCC 25MG EXT REL TAB PO SCH (08:51)
[2022-11-25] MEDS: ADVANCED PROBIOTIC 1250 MG CAPSULE PO SCH (08:51)
[2022-11-25] MEDS: POTASSIUM CHLORIDE CRTAB 20 MEQ TABCR PO SCH ×3 (08:51→17:33)
[2022-11-25] MEDS: predniSONE 5 MG TAB PO SCH (08:52)
[2022-11-25] MEDS: ASCORBIC ACID 500 MG TAB PO SCH (08:52)
[2022-11-25] MEDS: FERROUS SULFATE 325 MG TAB PO SCH (08:52)
[2022-11-25] MEDS: PANTOprazole 40 MG TAB PO SCH (08:52)
[2022-11-25] MEDS: ENOXAPARIN INJ 40 MG/0.4 ML SYR SQ SCH (08:53)
[2022-11-25] MEDS: ERYTHROMYCIN OP OINT 5 MG/GM 3.5 GM TUBE OP SCH ×3 (08:53→17:33)
[2022-11-25] MEDS: CLOTRIMAZOLE 1% CR 15 GM TUBE EXT SCH (08:54)
[2022-11-25] MEDS: BETAXOLOL HCL 0.5% OPL SCH (08:54)
[2022-11-25] MEDS: BRIMONIDINE TARTRATE 0.2% 5ML OPL SCH (08:54)
[2022-11-25] MEDS: INSULIN ASPART PER UNIT CHARGE SC SCH ×3 (09:06→17:33)
[2022-11-25] MEDS: LANTUS PER UNIT CHARGE SQ SCH (09:08)
[2022-11-25] MEDS: ERTAPENEM SODIUM 1,000 MG in SYRINGE 0 ML IV SCH (11:24)
--- NOTE | 2022-11-25 14:35 | Hospitalist Progress Note ---
Date of Service November 25, 2022 Assessment & Plan (1) Acute on chronic combined systolic (congestive) and diastolic (congestive) heart failure: Plan: 72 y/o with a complicated medical history including combined systolic and diastolic heart failure, CAD s/p PCI with WALTER, aortic stenosis (suspected severe), tachy-wilfrido syndrome s/p PPM in 2021, persistent afib since 07/01, bilateral carotid bruits, insulin-requiring DM, blindness, rheumatoid arthritis, chronic prednisone use, LAQUITA on CPAP, CKD3a, hypothyroidism, HTN, open-angle glaucoma, and recurrent liver cancer s/p recent placement of radiation beads. Presented with progressive shortness of breath over 5 weeks which did not improve even with increasing diuretics Her leg edema has been seeping liquid constantly Started with Lasix 40mg IV BID--> increased to lasix 60mg BID 11/08 40lb over ideal weight Lasix was then increased to 80 mg IV twice daily and added spironolactone 12.5 mg daily with supplemental potassium as needed Intravenous Lasix pushes were changed to a Lasix drip and this is ongoing with increase to drip and additional Lasix IV boluses intermittently cont to monitor strict I/Os, monitordaily standing weight, low salt diet, daily BMP. Still continue with intravenous Lasix drip-negative balance of more than 30 L as of today Will monitor electrolytes and kidney function -remains stable so far We will continue with the diuresis (2) Aortic stenosis: Plan: TAVR indicated, cardiology [place] [facility] [place] [facility] in [place] Accepted and awaiting for bed (3) Acquired thrombocytopenia: Plan: No PF4 antibodies found and PLT count is improving. This may have been a secondary thrombocytopenia from recent linezolid use. (4) Cellulitis of right leg: Plan: Completed linezolid course Has improved a lot. (5) Metabolic alkalosis: Plan: 2/2 diuresis. Cardiology considering zaroxyln. Cont CPAP at night. (6) Catheter-associated urinary tract infection: Plan: Asymptomatic bacteriuria present after matute catheter placement during this hospital stay. Starting ertapenem given multiple allergies and cont for 7 days. Ertapenem was started on 11/23/2022 at 11 AM and will be continued until 11/30/2022 (7) Venous stasis ulcers: Plan: She has chronic LE wounds for which she is following with wound care but she has been told that until the fluid overload is improved, her wounds will be unlikely to heal. some superficial Right leg cellulitis with extensive antibiotic allergy noted. Treated with a 7 day course of linezolid Dressing as per wound care which are currently in place. Advised to keep the legs elevated while in bed (8) Tinea corporis: Plan: Rash on left knee seems most consistent with tinea corporis - Started clotrimazole 1% cream BID for a 14 days course -completed 14 day course with clotrimazole cream -still some evidence of rash present -LFTs are WNL, bililrubin is improved -clotrimazole cream was restarted and will cont for another two weeks (need to cont 1 week past resolution) (9) Chronic kidney disease, stage 3: Plan: Chronic, stable despite aggressive diuresis. Creatinine remains stable and will monitor electrolytes (10) Diabetes mellitus, type 2: Plan: Chronic, stable. Continue basal bolus insulin. Currently euglycemic. Hemoglobin A1c 7.5 as on 11/19/2022 (11) Hypothyroidism: Plan: Chronic, stable. Continue thyroid replacement as ordered (12) Sleep apnea: Plan: Reports insomnia is somewhat associated with not having her home mask. CPAP home device now in room (13) Rheumatoid arthritis: Plan: chronic, stable. Methotrexate currently on hold due to leg wounds - will continue prednisone and plaquenil Remains free from any significant arthritic pain (14) Iron deficiency anemia: Plan: chronic, stable. Cont current therapy. (15) Hepatocellular carcinoma: Plan: chronic. Dx with HCC in 2019 after MRI which noted a liver lesion 3.7cm x 3.5 cm. A biopsy in 2018 was negative for malignancy. A followup MRI in August 2019 showed the mass had increased in size. FNA liver performed and consistent with HCC. Underwent bland embolization on 11/02/2019 Followup MRI September 2020 showed progression Repeat bland embolization on 11/14/20 Per oncology she continues to be at risk for recurrent/metastatic disease There was a recent CT scan showing two new lesions and she underwent another embolization on 10/28/22 Current plan is to do a followup CT scan in 4 months. (16) Morbid obesity: Plan: Lifestyle changes recommended, BMI 48. (17) Blindness: Plan: Assist with ADLs and IADLs as needed. Code status: Full code but no prolonged heroic measures. Son is her POA DVT Prophylaxis: held in setting of worsening thrombocytopenia. Has been started on Lovenox subcu Disposition-- Evaluated by PT/OT, rehab recommended with plans for [facility], however, Cardiology considering inpatient transfer for TAVR. Awaiting for a bed in [facility] Admission and Anticipated Discharge Date Admission Date: November 05, 2022 Subjective 11/24/2022 The patient was seen and examined in telemetry unit She has been feeling much better and denies any shortness of breath, palpitation, chest pain and her legs are much improved She has been waiting to go to [place] for TAVR procedure 11/25/2022 The patient was seen and examined in telemetry unit She has been feeling much better and is out of bed on a chair without any symptoms Awaiting to go to [facility] in [place] Review of Systems Review of Systems: All systems reviewed and are unremarkable except as noted below Physical Exam Physical Exam: Sitting on a chair without any acute distress Constitutional: well developed, well nourished and + morbidly obese; not ill appearing Eyes: PERRL, conjunctivae normal, anicteric sclerae ENMT: external ear and nose normal, oropharynx normal Neck: trachea midline, no thyromegaly Respiratory: no respiratory distress Auscultation: + diminished lung sounds; no crackles (Bibasal crackles) Cardiovascular: Rate/Rhythm: regular rate and regular rhythm; not tachycardic Heart Sounds: normal S1, normal S2 and + murmur Extremities: + edema (1+ edema bilaterally with seeping of fluid) Gastrointestinal (Abdomen): Inspection/Auscultation: + abdomen distended and normal bowel sounds Percussion/Palpation: abdomen soft; abdomen nontender Neurologic: normal touch/pain/proprioception and moves all extremities; no focal motor deficits Psychiatric: A+Ox3, euthymic affect Lymphatic: no cervical or axillary lymphadenopathy Results & Data Results & Data Vital Signs (Past 12 Hours) Vital Signs Temp Pulse Resp BP BP Pulse Ox O2 Del Method 11/25/22 14:05 36.5 C 87 18 115/74 111/78 97 11/25/22 11:00 36.5 C 87 18 115/74 97 Room Air 11/25/22 08:00 37.0 C 70 16 124/60 97 Room Air 11/25/22 02:41 36.5 C 67 16 116/81 97 BiPAP Laboratory Results BMP 11/24/22 11/25/22 15:51 06:18 Sodium 137 138 Potassium 4.9 D 3.6 D Chloride 94 L 92 L Carbon Dioxide 35 H 39 H BUN 40 H 43 H Creatinine 1.34 H 1.49 H Glucose 193 H 117 H Calcium 9.3 9.5 Medications Administered Current Inpatient Medications Acetaminophen (Acetaminophen 325 Mg Tab) 650 mg PO Q4H PRN PRN Reason: Pain or Fever Stop: 12/05/22 18:39 Last Admin: 11/06/22 08:40 Dose: 650 mg Acetaminophen (Acetaminophen 500 Mg Tab) 1,000 mg PO HS [facility] Stop: 12/05/22 20:59 Last Admin: 11/24/22 20:22 Dose: 1,000 mg Al Hydrox/Mg Hydrox/Simethicone (Aluminum/Magnesium/Simeth (Maalox Max) 30 Ml Udc) 30 ml PO Q6H PRN PRN Reason: Heartburn Stop: 12/13/22 19:30 Last Admin: 11/24/22 21:04 Dose: 30 ml Lipase/Protease/Amylase (Pancreaze (Lipase 10,500u) Cap) 2 cap PO QIDM [facility] Stop: 12/05/22 20:59 Last Admin: 11/25/22 12:12 Dose: 2 cap Lipase/Protease/Amylase (Pancreaze (Lipase 4,200u) Cap) 1 cap PO QIDM [facility] Stop: 12/05/22 20:59 Last Admin: 11/25/22 12:11 Dose: 1 cap Ascorbic Acid (Ascorbic Acid 500 Mg Tab) 500 mg PO QAM [facility] Stop: 12/06/22 08:59 Last Admin: 11/25/22 08:52 Dose: 500 mg Aspirin (Aspirin 81 Mg Ectab) 81 mg PO QAM [facility] Stop: 12/06/22 08:59 Last Admin: 11/25/22 08:50 Dose: 81 mg Atorvastatin Calcium (Atorvastatin 40 Mg Tab) 40 mg PO HS [facility] Stop: 12/05/22 20:59 Last Admin: 11/24/22 20:23 Dose: 40 mg Betaxolol HCl (Betaxolol Hcl 0.5% Op 5 Ml Btl) 1 drops OPL [facility] Stop: 12/05/22 20:59 Last Admin: 11/25/22 08:54 Dose: 1 drops Brimonidine Tartrate (Brimonidine Tartrate 0.2% 5ml) 1 drops OPL BID [facility] Stop: 12/05/22 20:59 Last Admin: 11/25/22 08:54 Dose: 1 drops Calcium Carbonate (Calcium Carbonate 500 Mg Chewable Tab) 500 mg PO QID PRN PRN Reason: Indigestion Stop: 12/09/22 18:41 Last Admin: 11/22/22 21:33 Dose: 500 mg Clopidogrel Bisulfate (Clopidogrel Bisulfate 75 Mg Tab) 75 mg PO QAM [facility] Stop: 12/06/22 08:59 Last Admin: 11/25/22 08:51 Dose: 75 mg Clotrimazole (Clotrimazole 1% Cr 15 Gm Tube) 1 appln EXT BID [facility] Stop: 12/21/22 10:44 Last Admin: 11/25/22 08:54 Dose: 1 appln Cyanocobalamin (Cyanocobalamin (B-12) 500 Mcg Tablet) 1,500 mcg PO QPM [facility] Stop: 12/05/22 20:59 Last Admin: 11/24/22 20:24 Dose: 1,500 mcg Dextrose (Dextrose 50% 50 Ml Syringe) 25 - 50 ml IV UD PRN; Protocol PRN Reason: Hypoglycemia Protocol Stop: 12/05/22 17:38 Enoxaparin Sodium (Enoxaparin Inj 40 Mg/0.4 Ml Syr) 40 mg SQ QAM [facility] Stop: 12/06/22 08:59 Last Admin: 11/25/22 08:53 Dose: 40 mg Erythromycin (Erythromycin Op Oint 5 Mg/Gm 3.5 Gm Tube) 1 appln OP QID [facility] Stop: 11/25/22 21:44 Last Admin: 11/25/22 12:12 Dose: 1 appln Ferrous Sulfate (Ferrous Sulfate 325 Mg Tab) 325 mg PO DAILY [facility] Stop: 12/06/22 08:59 Last Admin: 11/25/22 08:52 Dose: 325 mg Fluticasone Propionate (Fluticasone Propionate Na Spr 16 Gm Btl) 2 sprays NA QAM [facility] Stop: 12/06/22 08:59 Last Admin: 11/25/22 08:49 Dose: 2 sprays Folic Acid (Folic Acid 1 Mg Tab) 1 mg PO QAM [facility] Stop: 12/06/22 08:59 Last Admin: 11/25/22 08:50 Dose: 1 mg Gabapentin (Gabapentin 400 Mg Cap) 400 mg PO TID [facility] Stop: 12/05/22 20:59 Last Admin: 11/25/22 13:42 Dose: 400 mg Glucagon (Glucagon For Inj 1 Mg Vial) 1 mg SQ UD PRN; Protocol PRN Reason: Hypoglycemia Protocol Stop: 12/05/22 17:38 Glucose (Glucose 10 Tab/Tube) 4 - 8 tab PO UD PRN; Protocol PRN Reason: Hypoglycemia Treatment Stop: 12/05/22 17:38 Glucose (Glucose 40% Gel 15 Gm Tube) 15 - 30 gm PO UD PRN; Protocol PRN Reason: Hypoglycemia Protocol Stop: 12/05/22 17:38 Hydroxychloroquine Sulfate (Hydroxychloroquine Sulfate 200 Mg Tab) 400 mg PO HS [facility] Stop: 12/05/22 20:59 Last Admin: 11/24/22 20:25 Dose: 400 mg Furosemide 100 mg/ Dextrose 100 mls @ 40 mls/hr IV .Q2H30M [facility] Stop: 12/13/22 10:29 Last Admin: 11/25/22 13:42 Dose: 40 mg/hr, 40 mls/hr Promethazine HCl 12.5 mg/ (Sodium Chloride) 50.5 mls @ 202 mls/hr IV Q6H PRN PRN Reason: Nausea And Vomiting Stop: 12/15/22 00:06 Last Infusion: 11/15/22 02:00 Dose: Infused Ertapenem 1,000 mg/ Syringe 10 mls @ 2 mls/min IV Q24H [facility] Stop: 12/03/22 10:59 Last Admin: 11/25/22 11:24 Dose: 2 mls/min Insulin Aspart (Insulin Aspart Per Unit Charge) 0 units SC ACHS [facility] Stop: 12/05/22 20:59 Last Admin: 11/25/22 12:11 Dose: 11 units Insulin Glargine (Lantus Per Unit Charge) 10 units SQ BID [facility] Stop: 12/11/22 20:59 Last Admin: 11/25/22 09:08 Dose: 10 units Lactobacillus Acidophilus (Advanced Probiotic 1250 Mg Capsule) 1 cap PO QAM [facility] Stop: 12/06/22 08:59 Last Admin: 11/25/22 08:51 Dose: 1 cap Latanoprost (Latanoprost 0.005% Op Soln 2.5 Ml Btl) 1 drops OPB HS [facility] Stop: 12/05/22 20:59 Last Admin: 11/24/22 20:29 Dose: 1 drops Levothyroxine Sodium (Levothyroxine Sodium 125 Mcg Tablet) 125 mcg PO DAILYBB [facility] Stop: 12/06/22 06:29 Last Admin: 11/25/22 06:01 Dose: 125 mcg Loperamide HCl (Loperamide Hcl 2 Mg Cap) 2 mg PO Q3H PRN PRN Reason: Diarrhea Stop: 12/13/22 09:45 Last Admin: 11/22/22 22:51 Dose: 2 mg Lorazepam (Lorazepam 0.5 Mg Tab) 0.5 mg PO TID PRN PRN Reason: Anxiety Stop: 12/05/22 19:50 Last Admin: 11/24/22 23:34 Dose: 0.5 mg Magnesium Oxide (Magnesium Oxide 400 Mg Tab) 400 mg PO BID [facility] Stop: 12/06/22 20:59 Last Admin: 11/25/22 08:50 Dose: 400 mg Melatonin (Melatonin 3 Mg Tab) 6 mg PO HS [facility] Stop: 12/05/22 20:59 Last Admin: 11/24/22 23:28 Dose: 6 mg Menthol (Cough Drop (Sugar Free) Rob 24 Rob/1 Box) 1 rob BUCCAL TID PRN PRN Reason: Sore Throat Stop: 12/11/22 22:49 Last Admin: 11/11/22 23:23 Dose: 1 rob Metoprolol Succinate (Metoprolol Succ 25mg Ext Rel Tab) 12.5 mg PO QAM [facility] Stop: 12/18/22 08:59 Last Admin: 11/25/22 08:51 Dose: 12.5 mg Miscellaneous (Carbohydrates For Hypoglycemia ) 15 - 30 gm PO UD PRN PRN Reason: Hypoglycemia Protocol Stop: 12/05/22 17:38 Multivitamins/Minerals (Cerovite Adv Formula Tab) 1 tab PO QAM [facility] Stop: 12/06/22 08:59 Last Admin: 11/25/22 08:50 Dose: 1 tab Netarsudil (Netarsudil Mesylate 37 Drops/2.5 Ml Btl) 1 drops OPL [facility] Stop: 12/06/22 20:59 Last Admin: 11/24/22 20:29 Dose: 1 drops Nitroglycerin (Nitroglycerin Sl 0.4 Mg/Tab Tab) 0.4 mg SL Q5M PRN PRN Reason: Chest Pain Stop: 12/05/22 18:39 Nystatin (Nystatin Powder 15gm Btl) 1 appln EXT TID PRN PRN Reason: irritation Stop: 12/05/22 19:50 Last Admin: 11/07/22 21:52 Dose: 1 appln Pantoprazole Sodium (Pantoprazole 40 Mg Tab) 40 mg PO QAM [facility] Stop: 12/06/22 08:59 Last Admin: 11/25/22 08:52 Dose: 40 mg Potassium Chloride (Potassium Chloride Crtab 20 Meq Tabcr) 60 meq PO TIDM [facility] Stop: 12/17/22 11:59 Last Admin: 11/25/22 12:12 Dose: 60 meq Prednisone (Prednisone 5 Mg Tab) 5 mg PO QAM [facility] Stop: 12/06/22 08:59 Last Admin: 11/25/22 08:52 Dose: 5 mg Spironolactone (Spironolactone 25 Mg Tab) 25 mg PO DAILY [facility] Stop: 12/13/22 07:59 Last Admin: 11/25/22 08:49 Dose: 25 mg Tamsulosin HCl (Tamsulosin Hcl 0.4 Mg Cap) 0.4 mg PO HS [facility] Stop: 12/05/22 20:59 Last Admin: 11/24/22 20:28 Dose: 0.4 mg
== END 2022-11-25 17:41 | disposition short-term general hospital (02) | DRG 291 ==
LOC: ED 13:23 → SUATTDRO 17:21 → 2E 17:21

== ENCOUNTER 2023-05-28 21:08 | Inpatient (IN) ==
--- OUTSIDE RECORDS SUMMARY | 2023-05-28 21:20 | External Medical Summary | Summary of Care ---
Author Name Unknown Organization [facility] Address [address] [address] Phone [phone] Care Team Providers Care Surveillance Operator Name Role Phone David Umanzor MD Primary Care Provider [phone] Reason for Visit * Reason Onset Date Comments Test Results 05/27/2023 Encounter Details Date Type Department Care Team (Late st Contact Info) Description 05/27/2023 Telephone NephrologyRaphael [address] [facility] [place] [address] Irvin Hadley MD [address] [facility] [place] [address] Test Results Allergies Active Allergy Reactions Criticality Noted Date Comments Bactrim 02/09/2010 Cephalosporins Anaphylaxis,Edema face/lips/tongue High 04/11/2009 Anaphylaxis to cefaclor, facial swelling to cephalexin. Ciprofloxacin Low 03/30/2021 Other reaction(s): Nausea Butorphanol Tartrate 02/09/2010 Heart racing Sulfa Antibiotics Hives High 05/22/2002 Other reaction(s): Hives Trimethoprim 04/15/2022 Other reaction(s): Hives documented as of this encounter (statuses as of 05/27/2023) Medications Medication Sig Dispensed Refills Start Date End Date Status TYLENOL ARTHRITIS PAIN 650 MG PO TBCRIndications:arthriti s Take by mouth as needed. 0 12/06/19 08 Active NEBULIZER/TUBING/MOUTHPI ALEXIS KITIndications:Wheezing, Acute bronchitis, complicated use with nebs 1 pack 5 07/04/19 10 Active MULTIVITAMIN/IRON PO TABS 1 daily 0 Active BIOTENE MOISTURIZING MOUTH MT SOLNIndications:Dry mouth use four times daily 1 Bottle 1 03/21/20 12 Active Blood Glucose Monitoring Suppl (PRODIGY AUTOCODE BLOOD GLUCOSE) w/Device KITIndications:DM type 2 causing neurological disease, not at goal ([facility]) Test blood sugar 4 times daily Dx: E11.9 1 Kit 0 03/19/20 19 Active PRODIGY LANCETS 28G MISCIndications:DM type 2, not at goal ([facility]) TEST BLOOD SUAGER 4 TIMES A DAY DX E11.9 500 Each 3 03/19/20 19 Active Probiotic Daily Oral Capsule Take 1 Cap by mouth daily. 0 Active Nitroglycerin 0.4 MG Sublingual Tablet Sublingual (Nitrostat) 1tablet under tongue every 5 min as needed with chest pain up to 3 doses in 15 minutes 25 Tablet 3 03/23/20 21 Active Meclizine HCl 25 MG Oral Tablet (Antivert)Indications:Ve rtigo TAKE 1 TAB BY MOUTH 3 TIMES A DAY NEEDED FOR DIZZINESS. 30 Tablet 1 05/13/19 22 Active Melatonin 5 MG Oral CapsuleIndications:sleep Take 1 Capsule by mouth at bedtime. 0 Active Ammonium Lactate 12 % External CreamIndications:feet Apply topically to affected area as needed . Every night 0 10/04/19 22 Active Tamsulosin HCl 0.4 MG Oral Capsule Take 1 Capsule by mouth in the morning. Takes at bedtime . 0 Active Prodigy No Coding Blood Gluc In Vitro Strip (Glucose Blood)Indications:Type 2 diabetes mellitus with hemoglobin A1c goal of less than 7.0% ([facility]),Type 2 diabetes mellitus with stage 3 chronic kidney disease, with long-term current use of insulin, unspecified whether stage 3a or 3b CKD ([facility]),DM type 2 causing neurological disease, not at goal ([facility]) TEST BLOOD SUGAR UP TO FOUR TIMES DAILY 400 Strip 3 02/16/20 22 Active Fluticasone Propionate 50 MCG/ACT Nasal Suspension (Flonase)Indications:Chr onic rhinitis ADMINISTER 2 SPRAYS IN EACH NOSTRIL EACH MORNING 48 g 1 03/15/20 22 Active tiZANidine HCl 2 MG Oral Tablet (Zanaflex)Indications:Hi p pain, left TAKE 1 TABLET BY MOUTH EVERY 6 HOURS NEEDED FOR MUSCLE SPASM 30 Tablet 0 03/18/20 Active Insulin Syringe-Needle U-100 31G X 5/16" 1 ML (ReliOn Insulin Syringe) USE WITH INSULIN 4 TIMES DAILY 400 Each 3 04/19/19 23 Active Betaxolol HCl 0.5 % Ophthalmic Solution Instill 1 Drop into the left eye in the morning and 1 Drop before bedtime. 10 mL 5 06/02/19 23 Active Brimonidine Tartrate 0.2 % Ophthalmic Solution (Alphagan) Instill 1 Drop into the left eye in the morning and 1 Drop before bedtime. 15 mL 3 06/03/19 23 Active BD Pen Needle Corinna U/F 32G X 4 MM (Insulin Pen Needle)Indications:Type 2 diabetes mellitus with hyperosmolarity without coma, without long-term current use of insulin ([facility]) Use to inject insulin 4 times daily 400 Each 3 08/07/19 Active Creon [id number] UNIT Oral Capsule Delayed Release Particles (Pancrelipase (Oux-Vyxm-Ekfp))Indicati ons:Pancreatic insufficiency TAKE ONE CAPSULE BY MOUTH WITH EACH MEAL AND SNACK (PT WANTD FOUR TIMES A DAY ALL CELLS) 120 Capsule 08/27/19 Active Levothyroxine Sodium 125 MCG Oral Tablet (Levoxyl)Indications:Pos tsurgical hypothyroidism (NIP) TAKE ONE TABLET BY MOUTH EVERY MORNING AT LEAST 30 MINUTES PRIOR TO FIRST MEAL OF THE DAY 90 Tablet 2 08/28/19 Active Rhopressa 0.02 % Ophthalmic Solution (Netarsudil Dimesylate) Instill 1 Drop into the left eye every night at bedtime. 2 mL 08/28/19 Active NovoLOG FlexPen 100 UNIT/ML Subcutaneous Solution Pen-injector (insulin aspart)Indications:Type 2 diabetes mellitus with hyperosmolarity without coma, without long-term current use of insulin ([facility]) Inject 10 units with breakfast, 4 units with lunch, and 10 units with PM meal. Inject 4 units if BG is >200. 30 mL 5 10/01/19 23 Active Acetaminophen 500 MG Oral TabletIndications:HFrEF (heart failure with reduced ejection fraction) ([facility]),Coronary artery disease involving [place] coronary artery of [place] heart without angina pectoris,Nonrheumatic aortic valve stenosis,Cardiac pacemaker in situ,Tachy-wilfrido syndrome ([facility]) Take 1 Tablet by mouth at bedtime. 0 Active Latanoprost 0.005 % Ophthalmic Solution (Xalatan) Instill 1 Drop into both eyes at bedtime. Please dispense 90 day supply 7.5 mL 1 11/09/19 Active CPAP 1 Device every night at bedtime. 0 Active Insulin Glargine Solostar 100 UNIT/ML Subcutaneous Solution Pen-injector (Lantus SoloStar)Indications:Typ e 2 diabetes mellitus with hyperosmolarity without coma, without long-term current use of insulin (HCC) Inject 30 units daily 45 mL 1 12/18/19 Active Aspirin 81 MG Oral Tablet Chewable Take 1 Tablet by mouth in the morning. 90 Tablet 3 01/15/20 Active Atorvastatin Calcium 40 MG Oral Tablet (Lipitor)Indications:Dys lipidemia, goal LDL below 130 TAKE ONE TABLET BY MOUTH EVERY MORNING (PT TAKES DAILY AT BEDTIME) 90 Tablet 3 01/15/20 Active Metoprolol Succinate ER 25 MG Oral Tablet Extended Release 24 Hour (Toprol XL) Take 0.5 Tablets by mouth 2 times a day. 90 Tablet 3 01/15/20 Active Spironolactone 25 MG Oral Tablet (Aldactone) Take 1 Tablet by mouth in the morning. 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 180 Capsule 1 01/18/20 Active Magnesium Oxide -Mg Supplement 400 (240 Mg) MG Oral Tablet (Mag-Ox) Take 1 Tablet by mouth in the morning. 90 Tablet 3 01/20/20 23 Active Ferrous Sulfate 325 (65 Fe) MG Oral Tablet (Feosol) Take 1 Tablet by mouth daily with breakfast. 90 Tablet 3 02/16/20 23 Active Torsemide 100 MG Oral Tablet (Demadex) Take 1.5 Tablets by mouth in the morning. 135 Tablet 3 02/17/20 23 Active Multivitamin Women 50+ Oral Tablet Take 1 tab by mouth daily 90 Tablet 3 02/18/20 23 Active B-12 1000 MCG Oral Tablet Take 1 and 1/2 tabs by mouth daily 135 Tablet 3 02/18/20 23 Active Vitamin C 500 MG Oral Tablet (Ascorbic Acid) Take 1 Tablet by mouth in the morning. 90 Tablet 3 02/18/20 23 Active Erythromycin 5 MG/GM Ophthalmic OintmentIndications:Expo sure keratoconjunctivitis of both eyes Instill 0.25 Inches into both eyes in the morning and 0.25 Inches at noon and 0.25 Inches in the evening and 0.25 Inches before bedtime. Dispense 8 tubes at a time.. 28 g 6 02/24/20 23 Active Hydroxychloroquine Sulfate 200 MG Oral Tablet (Plaquenil)Indications:E ncounter for therapeutic drug monitoring TAKE TWO TABLETS BY MOUTH DAILY AT BEDTIME 180 Tablet 0 03/02/20 23 Active predniSONE 5 MG Oral Tablet (Deltasone) TAKE ONE TABLET BY MOUTH ONCE DAILY 30 Tablet 2 03/08/20 23 Active Methotrexate Sodium 2.5 MG Oral TabletIndications:Rheuma toid arthritis of multiple sites without rheumatoid factor (HCC) TAKE FOUR TABLETS BY MOUTH ONCE WEEKLY (TUESDAY 9AM) 16 Tablet 2 03/11/20 23 Active Clopidogrel Bisulfate 75 MG Oral Tablet (pLAVix) Take 1 Tablet by mouth in the morning. 90 Tablet 3 03/30/20 23 Active LORazepam 0.5 MG Oral Tablet (Ativan)Indications:Anxi ety state TAKE 1 TABLET 3 TIMES A DAY NEEDED FOR ANXIETY 40 Tablet 1 04/15/19 24 Active Nystatin [id number] UNIT/GM External Powder (Nyamyc) APPLY TO AFFECTED AREAS UNDER THE BREASTS THREE TIMES A DAY NEEDED 30 g 1 04/29/19 24 Active Sertraline HCl 25 MG Oral Tablet (Zoloft) Take 1 Tablet by mouth in the morning. 90 Tablet 3 04/28/19 24 Active metOLazone 2.5 MG Oral Tablet (Zaroxolyn) Take 1 Tablet by mouth in the morning. Daily for 5 days only.. 30 Tablet 0 05/03/19 24 Active HYDROcodone-Acetaminophe n 5-325 MG Oral TabletIndications:Athero sclerosis of [place] artery of left lower extremity with intermittent claudication (HCC),Pain of left lower extremity Take 1 Tablet by mouth every 6 hours as needed for Pain, Mild. 45 Tablet 0 05/13/19 24 Active Folic Acid 1 MG Oral TabletIndications:Encoun ter for long-term (current) use of medications TAKE ONE TABLET BY MOUTH EVERY MORNING 90 Tablet 3 05/25/19 24 Active Pantoprazole Sodium 40 MG Oral Tablet Delayed Release (Protonix) Take 1 Tablet by mouth in the morning. 30 Tablet 0 05/27/19 24 Active Pantoprazole Sodium 40 MG Oral Tablet Delayed Release (Protonix)Indications:Ga stroesophageal reflux disease, unspecified whether esophagitis present Take 1 Tablet by mouth in the morning. 90 Tablet 3 05/27/19 24 Active Potassium Chloride ER 20 MEQ Oral Tablet Extended ReleaseIndications:Acute on chronic combined systolic and diastolic congestive heart failure (HCC) Take 1 Tablet by mouth every morning AND 2 Tablets every evening. 0 05/27/19 24 Active Potassium Chloride ER 20 MEQ Oral Tablet Extended ReleaseIndications:Acute on chronic combined systolic and diastolic congestive heart failure (HCC) Take 2 Tablets by mouth every morning AND 2 Tablets every evening. 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 This was not undone as it was just done yesterday. Due to be changed tomorrow. Patient is following with the wound clinic. She also now has home health coming in. Varicose veins of unspecifie d lower extremity with ulcer of unspecified site (CODE) 09/14/2022 Anxiety state 08/09/2022 Cyst of pancreas 08/09/2022 Morbid (severe) obesity due to excess calories 0 08/09/2022 Atherosclerosis of [place] ar ajnia of left lower extremity with intermittent claudication 08/09/2022 Coronary artery disease invo lving [place] coronary artery of [place] heart with angina pectoris 03/22/2022 Last Assessment & Plan: Stable. No angina. -continue aspirin, atorvastatin, metoprolol. Recently taken off lisinopril due to low BP. S/P primary angioplasty with coronary stent 03/11 Overview: S/P WALTER to mid LAD on 03/22/2022 Tachy-wilfrido syndrome 12/29/2021 Last Assessment & Plan: Status post pacemaker placement December 2201 Severe aortic stenosis 11/13/2021 Last Assessment & Plan: Following with Cardiology -continue increased dose of torsemide 10 mg twice daily Type 2 diabetes mellitus wit h stage 3a chronic kidney disease, with long-term current use of insulin 09/10/2021 Last Assessment & Plan: Current Status: "Stable" for patient / At or near baseline Degree of Condition Awareness: Demonstrates very good awareness of condition, disease course, and prognosis "RED FLAG" Diabetic symptoms: o none Goal HgbA1c o <7 Diabetic Complications o Vascular (examples: PVD, PAD, CAD, CVA) Medication Regimen o Basal/Long Acting Insulin o Bolus/Short Acting Insulin DM Secondary Prevention o Moderate-High Intensity Statin o Aspirin Stable. 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 Cardiomyopathy 04/27/2021 Hepatocellular carcinoma 12/12/2019 Last Assessment & Plan: As of August, 2 new masses found in the liver -follow-up with Oncology next week Renal osteodystrophy 11/15/2017 Stage 3a chronic kidney disease 07/12/2017 Paroxysmal atrial fibrillation 06/03/2017 HTN, goal below 140/90 01/10/2017 Last Assessment & Plan: BP stable -continue metoprolol Dyslipidemia, goal LDL below 70 12/21/2016 Blind 12/21/2016 Overview: Diabetic retinopathy Rheumatoid arthritis of [facility] without rheumatoid factor 01/26/2016 Last Assessment & Plan: Follows closely with Rheumatology -continue methotrexate and prednisone Generalized OA 01/12/2016 Diabetes mellitus, type II, insulin dependent Encounter for long-term (current) use of medicat ions 09/26/2014 Type 2 diabetes mellitus 12/08/2012 Overview: ICD-10 update of inactive term Sleep apnea 03/31/2012 Overview: 06/19/12 -- DC oxygen as CPAP corrects hypoxia 03/31/12 -- CPAP 12 cwp with 2 LPM, Lg Quattro 03/2012 PSG -- CPAP 12 cwp, PLMS 01/2012 PSG -- AHI 17.1, significant hypoxia and PLMS DHC Vitamin D deficiency 04/21/2011 Iron deficiency anemia 03/15/2011 Overview: ICD-10 update of inactive term Last Assessment & Plan: Last hemoglobin 11.4 on 08/06 -continue ferrous sulfate. Med list updated. High triglycerides 02/13/2004 Overview: TG's as high as 6400 Postsurgical hypothyroidism 02/13/2004 Last Assessment & Plan: Last TSH 0.9 on 04/13/2022 -continue Synthroid documented as of this encounter (statuses as of 05/27/2023) Resolved Problems Problem Noted Date Diagnosed Date Resolved Date ALONA (acute kidney injury) 11/27/2022 Immunosuppression due to chronic steroid use 3 01/17/2023 Hypertensive heart and kidne y disease with heart failure 09/10/2021 01/17/2023 Last Assessment & Plan: Current Status: Actively exacerbating Degree of Condition Awareness: Demonstrates very good awareness of condition, disease course, and prognosis "RED FLAG" HF Symptoms: o Leg Swelling (Examples: "I can't wear certain socks or shoes", "My pants feel tight") o Increased dyspnea on exertion (Example: "I can't walk to the kitchen or up the stairs") o Increased shortness of breath at rest (Example: "I struggle to breathe even when watching TV") Current Heart Failure Classifications: o With less than ordinary activity ([employer] CLASS III) Diagnostic Review: Recent Labs Units 09/07/22 1429 08/17/22 1530 08/06/22 1520 LEFT VENTRICULAR EJECTION FRACTION % -- 25 -- ESTIMATED GLOMERULAR FILTRATION RATE - [facility] mL/min 36* -- 55* HGB - [facility] g/dL -- -- 11.4* Medication Regimen: o Beta Ollie Therapy: Metoprolol Succinate (ER) o MARIXA Inhibitor/ARB Therapy: No MARIXA/ARB/ARNI secondary to: low bp o Diuretic therapy: Torsemide Self - Management Plan o Double dose of Torsemide for 2 days Exacerbation Plan o BMP o Pro-BNP Weight is unreliable. Patient is symptomatic with increased shortness of breath, however her leg edema is down. Will continue increased dose of torsemide for now. Repeat BMP this week. Follow-up with nephrology next week. Diabetic foot ulcer 09/03/2021 09/04/19 Nephrolithiasis 09/03/2021 03/24/2022 Overview: DUPLICATE History of gastric ulcer 09/03/2021 Calculus of kidney 09/03/2021 Last Assessment & Plan: UTI/pyelo/sepsis/stone in August. S/p 2 stents placed on the right Currently asymptomatic -for stent removal soon -f/u with urology scheduled Papillary carcinoma of thyroid 09/03/2021 09/03/2021 Hypothyroidism 09/03/2021 09/03/2021 BMI 45.0-49.9, adult 04/27/2021 024 Overview: Body Mass Index: 49.20 kg/mAbnormal 1.575 m (5' 2") as of 03/22/2022 122 kg (269 lb) as of 03/22/2022 History of corneal ulcer 12/15/2018 Encounter for examination fo r normal comparison and control in clinical research program 11/08/2018 11/12/2019 Overview: DO NOT DELETE [facility] DETECT Study: Project # [id number], Site Lead: Manny Santacruz, PhD. SUMMARY: Goal: Establish test characteristics (sensitivity, specificity, PPV, NPV) of a circulating tumor DNA (ctDNA)-based test for cancer. Hypothesis: Circulating tumor DNA (ctDNA) and elevated protein biomarkers (together, the marker panel) can be detected in asymptomatic individuals with early cancer. Specific Aim 1: Determine the prevalence of a positive marker panel test in a prospective clinical cohort of 10,000 asymptomatic women ages 65 to 75 years. Specific Aim 2: Determine the sensitivity, specificity, positive predictive value (PPV) and negative predictive value (NPV) of a marker panel test to identify histologically proven cancers that develop within 5-years of the marker panel evaluation. CONTACTS: During normal business hours, contact study staff at ; after hours Site Lead via the [facility] head gauge unit operator . Please contact study team before resolving/deleting from patients problem list. Study phone number: [phone]. Diagnosis changed due to Research Module. Go to Snapshot for study details. Encounter for examination fo r normal comparison and control in clinical research program 11/08/2018 12/10/2021 Overview: DO NOT DELETE - [facility] Study: Project # [id number], Site Lead: Kevin Pearce, MS, MPH. SUMMARY: Goal: Establish test characteristics (sensitivity, specificity, PPV, NPV) of a circulating tumor DNA (ctDNA)-based test for cancer. - Hypothesis: Circulating tumor DNA (ctDNA) and elevated protein biomarkers (together, the marker panel) can be detected in asymptomatic individuals with early cancer. - Specific Aim 1: Determine the prevalence of a positive marker panel test in a prospective clinical cohort of 10,000 asymptomatic women ages 65 to 75 years. - Specific Aim 2: Determine the sensitivity, specificity, positive predictive value (PPV) and negative predictive value (NPV) of a marker panel test to identify histologically proven cancers that develop within 5-years of the marker panel evaluation. - CONTACTS: During normal business hours, contact study staff at ; after hours Site Lead via the [facility] head gauge unit operator . - Please contact study team before resolving/deleting from patients problem list. Study phone number: [phone]. Diagnosis changed due to Research Module. Go to Snapshot for study details. Food insecurity 08/21/2018 03/24/2023 Overview: Per [facility] Protocol Food insecurity 11/22/2017 08/02/2018 Overview: Per [facility] Protocol Morbid obesity with BMI of 50.0-59.9, adult 11/15/2017 05/27/2021 Benign hypertension with chr onic kidney disease, stage III 11/15/2017 01/02/2020 Encounter for long-term (cur rent) use of medications 06/07/2017 07/28/2018 Mood disorder 06/03/2017 08/02/2018 Type 2 diabetes mellitus wit h stage 3 chronic kidney disease, with long-term current use of insulin 03/30/2017 01/02/2020 Corneal ulcer (including herpetic), right 03/10/2017 12/15/2018 Body mass index (BMI) of 50. 0 to 59.9 in adult 01/10/2017 11/15/2017 Overview: Per Obesity protocol #1 - Per Obesity Protocol, #19 ICD-10 update of inactive term History of malignant neoplasm of thyroid 12/21/2016 09/03/2021 Primary osteoarthritis of hand 06/08/2016 09/03/2021 Family history of ischemic heart disease 08/03/2012 06/10/2017 Anemia 06/07/2012 03/30/2017 Overview: ICD-10 update of inactive term Nocturnal hypoxemia 03/31/2012 09/04/19 22 Overview: 06/06/12 CPAP / RA -- low 89%, mean 95%, TUCKER 0 Cardiomyopathy 12/07/2011 05/08/2012 Kidney disease, chronic, sta ge III (GFR 30-59 ml/min) 08/30/2011 05/28/2017 Overview: Per CKD protocol #1 Anemia of chronic renal failure 05/21/2011 08/02/2018 Rheumatoid arthritis 05/14/2011 022 Urgency of urination 04/02/2011 017 Dysuria 04/02/2011 09/17/2016 Urinary frequency 04/02/2011 09/17/2016 Complicated UTI (urinary tract infection) 04/02/2011 03/24/2022 Overview: NOTED IN 2010 HISTORICAL EDEMA - lymphoedema 03/11/2011 08/03/19 19 Other paraproteinemias 03/01/201111/15 DISC DIS L5-S1 05/13/2010 09/17/2016 OVERWEIGHT 02/09/2010 09/17/2016 Spasm of muscle 02/09/2010 09/17/2016 Obesity, morbid (more than 1 00 lbs over ideal weight or BMI > 40) 09/23/2009 01/13/2017 Overview: Per Obesity Protocol, #19 ICD-10 update of inactive term DM type 2 causing eye disease, not at goal 02/06/2009 09/03/2021 Overview: Per Diabetes Taxonomy. Type 2 DM with retinopathy DM TYPE 2 CAUSING RENAL DZ, NOT AT GOAL 02/06/2009 03/30/2017 Overview: Per Diabetes Taxonomy. Type 2 DM with nephropathy DM type 2 causing renal disease, not at goal 02/06/2009 Overview: Per Diabetes Taxonomy. Type 2 DM with nephropathy DM type 2 causing eye disease, not at goal 10/24/2008 02/06/2009 Overview: Per Diabetes Taxonomy. Type 2 DM with retinopathy DM type 2 causing neurologic al disease, not at goal 10/24/2008 09/03/2021 Overview: Type 2 DM with neuropoathy Acute pancreatitis 02/13/2004 3 Overview: Hx of 14 episodes; due to high TG's Toxic diffuse goiter 02/13/2004 017 Overview: Treated with anti-thyroid drug therapy Non-toxic multinodular goiter 02/13/2004 11/15/2017 Overview: Had surgery; main nodules were benign Malignant neoplasm of thyroid gland 02/13/2004 12/21/2016 Overview: Very small area of Papillary Cancer Unspecified polyarthropathy or polyarthritis, other specified sites 02/13/2004 05/14/2011 Menopause 02/13/2004 11/15/2017 Overview: Surgical Intervertebral disc prolapse 02/13/2004 08/02/2018 Overview: L5-S1 disc herniation; chronic LBP Hypopotassemia 02/13/2004 05/08/2012 STEROID RESPONDERS 06/12/2002 Senile nuclear cataract 03/29/200210/2017 Amblyopia 03/29/2002 09/03/2021 documented as of this encounter (statuses as of 05/27/2023) Immunizations Name Administration Dates Next Due COVID-19 mRNA, LNP-s, No Pre serve, 2-Dose Series (Moderna) 06/08/2021,12/17/2020,06/23/2020,11/2020 H1N1 2009 Influenza, IM 04/06/2009 MMR - Measles/Mumps/Rubella Vaccine 05/07/2019 PPD 09/09/2010,10/06/2009 Pneumococcal Conjugate Vacc, 13 Valent (Prevnar) 02/12/2015 Pneumococcal Polysaccharide PPV23 (Pneumovax) 05/07/2019,12/27/2013,10/24/2008 Seasonal Influenza Virus Vac cine, Unspecified Formulation 01/27/2021,12/25/2019,02/08/2019,102 07/2017,01/11/2017,03/17/2016,02/13/20 15,12/27/2013,01/31/2013,12/22/2011,0 12/28/2010,01/08/2010,01/18/2008 Seasonal Influenza, PF, 6 M & above, IM , (FluLaval or Fluzone) 12/25/2019,02/08/2019,02/01/2018,10/0 06/2016,04/10/2009,04/06/2009 02/09/2020 Seasonal Influenza, Quadriva lent Hd (Fluzone Hd) 01/20/2023,12/17/2022(Deferred: Patient Refused),01/21/2022,01/27/2021 Seasonal Influenza, Quadriva lent, No Preserve, IM 03/17/2016,02/12/2015 03/17/2017 Seasonal Influenza, Split, I IV3, With Preserve, Inj 12/27/2013,01/31/2013,12/22/2011,12/10,01/08/2010,01/18/2008 TDAP (age 10 and older)(Boostrix) 09/20/2016, TDAP (age 11 and older)(Adacel) 04/02/2009 Zoster Vaccine Recombinant (Shingrix) 03/29/2018 ,11/15/2017 documented as of this encounter Social History Tobacco Use Types Packs/Day Years Used Date Smoking Tobacco: Never Smokeless Tobacco: Never Alcohol Use Standard Drinks/Week Comments No 0 (1 standard drink = 0.6 oz pure alcohol) Drank in the past, but never regularly PHQ-2 Answer Date Recorded PHQ Adult Total Score 3 06/25/2021 Hunger Vital Sign Answer Date Recorded Within the past 12 months, y ou worried that your food would run out before you got the money to buy more. Never true 05/03/19 23 Within the past 12 months, t he food you bought just didn't last and you didn't have money to get more. Never true 05/03/2022 Sex and Gender Information Value Date Recorded Sex Assigned at Female 05/07/2019 2:27 PM EST Gender Identity Female 05/07/2019 2:27 PM EST Sexual Orientation Straight 12/15/2018 7: 20 AM EDT Job Start Date Occupation Industry Not on file Not on file Not on file documented as of this encounter Functional Status Functional Status Response Date of Assess ment Are you deaf or do you have serious difficulty h earing? No 03/22/2022 Are you blind or do you have serious difficulty seeing, even when wearing glasses? Yes 03/22/2022 Do you have serious difficul ty walking or climbing stairs? (5 years old or older) Yes 11/26/2022 Do you have difficulty dress ing or bathing? (5 years old or older) Yes 03/22/2022 Because of a physical, menta l, or emotional condition, do you have difficulty doing errands alone such as visiting a doctor s office or shopping? (15 years old or older) Yes 03/22/20 22 Cognitive Status Response Date of Assessm ent Because of a physical, menta l, or emotional condition, do you have serious difficulty concentrating, remembering, or making decisions? (5 years old or older) No 03/22/2022 documented as of this encounter Miscellaneous Notes * Telephone Encounter - Krystin Munroe RN - 05/27/2023 4:21 PM EST TE with pt regarding Lab results. Aware to decrease potassium to 1 tablet twice daily. * Telephone Encounter - Krystin Munroe RN - 05/27/2023 4:20 PM EST ----- Message from Irvin Hadley MD sent at 05/27/2023 2:40 PM EST ----- Kidney function stable but potassium high. Lower the potassium supplement to 1 tablet twice daily documented in this encounter Plan of Treatment Upcoming Encounters Date Type Department Care Team (Late st Contact Info) Description 05/31/2023 1:30 PM EST Imaging Radiology [address] [facility] [place] [address] 06/06/2023 2:40 PM EST Pharmacy Pharmacy, [place] [address] [place] [address] [facility] [address] [place] [address] 06/07/2023 1:20 PM EST Office Visit Sleep Disorders Ctr [facility] [address] [facility] [place] [phone] Vira Byrd, 132 [facility] [place] [address] 07/27/2023 3:00 PM EDT Office Visit Cardiology, [facility] [address] [facility] [place] [address] Wood Wong PA-C [address] [facility] [place] [address] 08/01/2023 2:00 PM EDT Laboratory Laboratory, [place] [address] [place] [address] [facility] [address] [place] [address] 08/02/2023 2:00 PM EDT Office Visit Rheumatology [place] [address] [facility] [place], [place] [address] Eliot Castelan CRNP [facility] [place], [place] [address] 08/08/2023 12:30 PM EDT Office Visit Hematology/Oncology [facility] [address] [facility] [place] [address] Miguel A Alcantar MD [address] [facility] [place] [address] 08/18/2023 1:30 PM EDT Office Visit Nephrology, [facility] [address] [place], [place] [address] Ana Lin PA-C [address] [facility] [place], [place] [address] 10/11/2023 5:40 PM EDT Office Visit Family Practice, [place] [address] [facility] [place] [address] David Umanzor MD [address] [place] [address] 03/07/2024 1:00 PM EST Office Visit Cardiology, [facility] [address] [place] [address] Manolo Millan MD [address] [facility] [place] [address] Scheduled Procedures Name Priority Associated Diagnoses Date/Ti me ECHOCARDIOGRAPHY, TRANSESOPH AGEAL; INCLUDING PROBE PLACEMENT, IMAGE ACQUISITION, INTERPRETATION AND REPORT Aortic valve stenosis, etiology of cardiac valve disease unspecified COLONOSCOPY FLEXIBLE PROXIMA L DIAGNOSTIC Recall History of colon polyps Health Maintenance Due Date Last Done Comments COLONOSCOPY-EVERY 3 YRS AGES 18-100 01/11/2022 01/11/2019, 08/25/2015, 08/25/2015, Additional history exists Depression Screening 06/25/2022 06/25/2021 Diabetic Foot Exam 06/25/2022 06/25/2021, 0 12/15/2018, 12/15/2018, Additional history exists COVID-19 Vaccine ( season) 2022 06/08/2021, 12/17/2020, 06/23/2020, Additional history exists Diabetic Eye Exam 05/27/2023 05/27/2022, , 05/27/2022, Additional history exists Mammogram 07/28/2023 07/27/2022, 07/10, 07/20/2021, Additional history exists Albumin/Creatinine Ratio 09/08/2023 023, 08/06/2022, 05/13/2021, Additional history exists HbA1c 10/24/2023 04/25/2023, 07/11, 04/13/2022, Additional history exists GFR 11/24/2023 05/26/2023, 02/04/2023, 04/25/2023, Additional history exists CKD PHOS USE SMARTSET 09590 12/02/202311/10, 08/06/2022, 08/21/2021, Additional history exists CKD HGB USE SMARTSET 32289 03/25/202403/25, 03/25/2023, 02/28/2023, Additional history exists TSH 04/25/2024 04/25/2023, 06/2022, 05/13/2021, Additional history exists DXA Scan 08/26/2025 08/26/2021, 08/09, 08/21/2012 DTaP,Tdap,and Td Vaccines (4 - Td or Tdap) 09/20/2026 09/20/2016, 04/02/2009, 04/02/2009 Zoster Vaccines Completed 03/29/2018, 11/15/2017 Pneumococcal Vaccine: 65+ Years Completed 05/07/2019, 02/12/2015, 12/27/2013, Additional history exists Influenza Vaccine (FLU shot) Completed 03/2023, 01/21/2022, 01/27/2021, Additional history exists GARDASIL-HPV IMMUNIZATION SERIES Aged Out No longer eligible based on patient's age to complete this topic Hepatitis B Aged Out No longer eligi ble based on patient's age to complete this topic MENINGOCOCCAL (MENACTRA/MENVEO) Aged Out No longer eligible based on patient's age to complete this topic documented as of this encounter Medical Devices Implanted Type Area Swing Saw Operator Device Identifier Shelf Expiration Date Model / Serial / Lot 9flats Medical Embosphere Micrspheres Implanted:Qty: 2 on 11/02/2019 by Ish Grove MD at [facility] Right: Abdomen [employer] 05/11/2022 S220GH / [id number] / [id number] Syr Pf 2ml Embospheres 100-300 - [id number] Implanted:Qty: 1 on 11/14/2020 at [facility] [employer] [id number] 08/22/2023 [id number] / / [id number] Lead Novus Bipolar 52cm - [id number] - [id number] Implanted:Qty: 1 on 12/29/2021 by Fatoumata Roland DO at [facility] Left: Heart [employer] : CRM 11/18/2023 5076-52 / [id number] / N/A Description:right atrium Lead Pace [employer] 3830-69 - [id number] - [id number] Implanted:Qty: 1 on 12/29/2021 by Fatoumata Roland DO at [facility] Left: Heart [employer] : TANMAY 11/21/2023 [id number] / [id number] / Description:right ventricle septum Pacemaker [place] Xt Dr Hsu Wrls - [id number] - [id number] Implanted:Qty: 1 on 12/29/2021 by Fatoumata Roland DO at [facility] Left: Heart [employer] 05/25/2023 [id number] / [id number] / Envelope Antibacterial Tyrx - [id number] Implanted:Qty: 1 on 12/29/2021 by Fatoumata Roland DO at [facility] [employer] : CRM [id number] 09/23/2022 CMR [id number] / / [id number] Stent Synergy Xd Mr 3.79v87ff - [id number] Implanted:Qty: 1 on 03/22/2022 by Katalina Pearce MD at [facility] [employer] [id number] 07/17/2023 [id number] / / [id number] Valve Berhane 3 Ultra 26mm - [id number] Implanted:Qty: 1 on 12/09/2022 by Manolo Millan MD at [facility] [employer] [id number] 12/04/2023 [id number] / / documented as of this encounter Visit Diagnoses Diagnosis Acute on chronic combined systolic and diastolic congestive heart failure (HCC) Acute on chronic combined systolic and diastolic heart failure documented in this encounter Advance Directives Latest Code Status on File Code Status Date Activated Date Inactivated Comments Full Code 12/09/2022 9:47 AM 12/17/2022 4:48 PM This o rder reflects the patients wishes and were consensually agreed upon. Question Answer Comments Discussion of Advance Directives occurred with: Not Discussed due to patient's condition Code Status History Code Status Date Activated Date Inactivated Comments Full Code 11/25/2022 7:01 PM 12/09/2022 9:47 AM This order reflects the patients wishes and were consensually agreed upon. Question Answer Comments Discussion of Advance Directives occurred with: Patient Full Code 03/22/2022 1:24 PM 03/23/2022 10:11 PM Th is order reflects the patients wishes and were consensually agreed upon. Question Answer Comments Discussion of Advance Directives occurred with: Patient Does the patient have a Living Will? No Does the patient have Health Care Power of Multimedia Instructional Designer? No Care Teams Surveillance Operator Relationship Specialty Start Date End Date David Umanzor MD [address] [place] [address] PCP - General 02/25/09 documented as of this encounter
--- OUTSIDE RECORDS SUMMARY | 2023-05-28 21:20 | External Medical Summary | Summary of Care ---
Author Name Unknown Organization [facility] Address [address] [place] [address] Phone [phone] Care Team Providers Care Supply Chain Development Manager Name Role Phone David Umanzor MD Primary Care Provider [phone] Reason for Visit * Reason Onset Date Comments Advice 05/27/2023 Ortiz Encounter Details Date Type Department Care Team (Late st Contact Info) Description 05/27/2023 Telephone Access Center, [place] [address] [facility] *DO NOT REMOVE THIS DEPARTMENT* [place] [address] Services, Scheduling [address] [place] [address] Advice (Ortiz ) Allergies Active Allergy Reactions Criticality Noted Date Comments Bactrim 02/09/2010 Cephalosporins Anaphylaxis,Edema face/lips/tongue High 04/11/2009 Anaphylaxis to cefaclor, facial swelling to cephalexin. Ciprofloxacin Low 03/30/2021 Other reaction(s): Nausea Butorphanol Tartrate 02/09/2010 Heart racing Sulfa Antibiotics Hives High 05/22/2002 Other reaction(s): Hives Trimethoprim 04/15/2022 Other reaction(s): Hives documented as of this encounter (statuses as of 05/28/2023) Medications Medication Sig Dispensed Refills Start Date End Date Status TYLENOL ARTHRITIS PAIN 650 MG PO TBCRIndications:arthritis Take by mouth as needed. 0 8 Active NEBULIZER/TUBING/MOUTHPIE CE KITIndications:Wheezing,A cute bronchitis, complicated use with nebs 1 pack 5 0 Active MULTIVITAMIN/IRON PO TABS 1 daily 0 Active BIOTENE MOISTURIZING MOUTH MT SOLNIndications:Dry mouth use four times daily 1 Bottle 1 2 Active Blood Glucose Monitoring Suppl (PRODIGY AUTOCODE BLOOD GLUCOSE) w/Device KITIndications:DM type 2 causing neurological disease, not at goal ([facility]) Test blood sugar 4 times daily Dx: E11.9 1 Kit 0 9 Active PRODIGY LANCETS 28G MISCIndications:DM type 2, not at goal ([facility]) TEST BLOOD SUAGER 4 TIMES A DAY DX E11.9 500 Each 3 9 Active Probiotic Daily Oral Capsule Take 1 Cap by mouth daily. 0 Active Nitroglycerin 0.4 MG Sublingual Tablet Sublingual (Nitrostat) 1tablet under tongue every 5 min as needed with chest pain up to 3 doses in 15 minutes 25 Tablet 3 1 Active Meclizine HCl 25 MG Oral Tablet (Antivert)Indications:Sammi tigo TAKE 1 TAB BY MOUTH 3 TIMES A DAY NEEDED FOR DIZZINESS. 30 Tablet 1 2 Active Melatonin 5 MG Oral CapsuleIndications:sleep Take 1 Capsule by mouth at bedtime. 0 Active Ammonium Lactate 12 % External CreamIndications:feet Apply topically to affected area as needed . Every night 0 2 Active Tamsulosin HCl 0.4 MG Oral Capsule Take 1 Capsule by mouth in the morning. Takes at bedtime . 0 Active Prodigy No Coding Blood Gluc In Vitro Strip (Glucose Blood)Indications:Type 2 diabetes mellitus with hemoglobin A1c goal of less than 7.0% ([facility]),Type 2 diabetes mellitus with stage 3 chronic kidney disease, with long-term current use of insulin, unspecified whether stage 3a or 3b CKD ([facility]),DM type 2 causing neurological disease, not at goal ([facility]) TEST BLOOD SUGAR UP TO FOUR TIMES DAILY 400 Strip 3 2 Active Fluticasone Propionate 50 MCG/ACT Nasal Suspension (Flonase)Indications:Ambulatory Service Representative sanket rhinitis ADMINISTER 2 SPRAYS IN EACH NOSTRIL EACH MORNING 48 g 1 2 Active tiZANidine HCl 2 MG Oral Tablet (Zanaflex)Indications:Hip pain, left TAKE 1 TABLET BY MOUTH EVERY 6 HOURS NEEDED FOR MUSCLE SPASM 30 Tablet 0 2 Active Insulin Syringe-Needle U-100 31G X 5/16" 1 ML (ReliOn Insulin Syringe) USE WITH INSULIN 4 TIMES DAILY 400 Each 3 3 Active Betaxolol HCl 0.5 % Ophthalmic Solution Instill 1 Drop into the left eye in the morning and 1 Drop before bedtime. 10 mL 5 3 Active Brimonidine Tartrate 0.2 % Ophthalmic Solution (Alphagan) Instill 1 Drop into the left eye in the morning and 1 Drop before bedtime. 15 mL 3 3 Active BD Pen Needle Corinna U/F 32G X 4 MM (Insulin Pen Needle)Indications:Type 2 diabetes mellitus with hyperosmolarity without coma, without long-term current use of insulin ([facility]) Use to inject insulin 4 times daily 400 Each 3 3 Active Creon 53996-77113 UNIT Oral Capsule Delayed Release Particles (Pancrelipase (Sah-Mlin-Yrri))Indicatio ns:Pancreatic insufficiency TAKE ONE CAPSULE BY MOUTH WITH EACH MEAL AND SNACK (PT WANTD FOUR TIMES A DAY ALL CELLS) 120 Capsule 11 3 Active Levothyroxine Sodium 125 MCG Oral Tablet (Levoxyl)Indications:Post surgical hypothyroidism (NIP) TAKE ONE TABLET BY MOUTH EVERY MORNING AT LEAST 30 MINUTES PRIOR TO FIRST MEAL OF THE DAY 90 Tablet 2 3 Active Rhopressa 0.02 % Ophthalmic Solution (Netarsudil Dimesylate) Instill 1 Drop into the left eye every night at bedtime. 2 mL 5 3 Active NovoLOG FlexPen 100 UNIT/ML Subcutaneous Solution Pen-injector (insulin aspart)Indications:Type 2 diabetes mellitus with hyperosmolarity without coma, without long-term current use of insulin ([facility]) Inject 10 units with breakfast, 4 units with lunch, and 10 units with PM meal. Inject 4 units if BG is >200. 30 mL 5 3 Active Acetaminophen 500 MG Oral TabletIndications:HFrEF (heart failure with reduced ejection fraction) ([facility]),Coronary artery disease involving elim ira coronary artery of elim ira heart without angina pectoris,Nonrheumatic aortic valve stenosis,Cardiac pacemaker in situ,Tachy-wilfrido syndrome ([facility]) Take 1 Tablet by mouth at bedtime. 0 Active Latanoprost 0.005 % Ophthalmic Solution (Xalatan) Instill 1 Drop into both eyes at bedtime. Please dispense 90 day supply 7.5 mL 1 3 Active CPAP 1 Device every night at bedtime. 0 Active Insulin Glargine Solostar 100 UNIT/ML Subcutaneous Solution Pen-injector (Lantus SoloStar)Indications:Type 2 diabetes mellitus with hyperosmolarity without coma, without long-term current use of insulin (HCC) Inject 30 units daily 45 mL 1 3 Active Aspirin 81 MG Oral Tablet Chewable Take 1 Tablet by mouth in the morning. 90 Tablet 3 3 Active Atorvastatin Calcium 40 MG Oral Tablet (Lipitor)Indications:Dysl ipidemia, goal LDL below 130 TAKE ONE TABLET BY MOUTH EVERY MORNING (PT TAKES DAILY AT BEDTIME) 90 Tablet 3 3 Active Metoprolol Succinate ER 25 MG Oral Tablet Extended Release 24 Hour (Toprol XL) Take 0.5 Tablets by mouth 2 times a day. 90 Tablet 3 3 Active Spironolactone 25 MG Oral Tablet (Aldactone) Take 1 Tablet by mouth in the morning. 90 Tablet 3 3 Active Gabapentin 300 MG Oral Capsule (Neurontin)Indications:Ac court on chronic combined systolic and diastolic congestive heart failure (HCC) Take 1 Capsule by mouth in the morning and 1 Capsule before bedtime. 180 Capsule 1 3 Active Magnesium Oxide -Mg Supplement 400 (240 Mg) MG Oral Tablet (Mag-Ox) Take 1 Tablet by mouth in the morning. 90 Tablet 3 3 Active Ferrous Sulfate 325 (65 Fe) MG Oral Tablet (Feosol) Take 1 Tablet by mouth daily with breakfast. 90 Tablet 3 3 Active Torsemide 100 MG Oral Tablet (Demadex) Take 1.5 Tablets by mouth in the morning. 135 Tablet 3 3 Active Multivitamin Women 50+ Oral Tablet Take 1 tab by mouth daily 90 Tablet 3 3 Active B-12 1000 MCG Oral Tablet Take 1 and 1/2 tabs by mouth daily 135 Tablet 3 3 Active Vitamin C 500 MG Oral Tablet (Ascorbic Acid) Take 1 Tablet by mouth in the morning. 90 Tablet 3 3 Active Erythromycin 5 MG/GM Ophthalmic OintmentIndications:Expos ure keratoconjunctivitis of both eyes Instill 0.25 Inches into both eyes in the morning and 0.25 Inches at noon and 0.25 Inches in the evening and 0.25 Inches before bedtime. Dispense 8 tubes at a time.. 28 g 6 3 Active Hydroxychloroquine Sulfate 200 MG Oral Tablet (Plaquenil)Indications:En counter for therapeutic drug monitoring TAKE TWO TABLETS BY MOUTH DAILY AT BEDTIME 180 Tablet 0 3 Active predniSONE 5 MG Oral Tablet (Deltasone) TAKE ONE TABLET BY MOUTH ONCE DAILY 30 Tablet 2 3 Active Methotrexate Sodium 2.5 MG Oral TabletIndications:Rheumat oid arthritis of multiple sites without rheumatoid factor (HCC) TAKE FOUR TABLETS BY MOUTH ONCE WEEKLY (TUESDAY 9AM) 16 Tablet 2 3 Active Clopidogrel Bisulfate 75 MG Oral Tablet (pLAVix) Take 1 Tablet by mouth in the morning. 90 Tablet 3 3 Active LORazepam 0.5 MG Oral Tablet (Ativan)Indications:Anxie ty state TAKE 1 TABLET 3 TIMES A DAY NEEDED FOR ANXIETY 40 Tablet 1 4 Active Nystatin 038744 UNIT/GM External Powder (Nyamyc) APPLY TO AFFECTED AREAS UNDER THE BREASTS THREE TIMES A DAY NEEDED 30 g 1 4 Active Sertraline HCl 25 MG Oral Tablet (Zoloft) Take 1 Tablet by mouth in the morning. 90 Tablet 3 4 Active metOLazone 2.5 MG Oral Tablet (Zaroxolyn) Take 1 Tablet by mouth in the morning. Daily for 5 days only.. 30 Tablet 0 4 Active HYDROcodone-Acetaminophen 5-325 MG Oral TabletIndications:Atheros clerosis of elim ira artery of left lower extremity with intermittent claudication (HCC),Pain of left lower extremity Take 1 Tablet by mouth every 6 hours as needed for Pain, Mild. 45 Tablet 0 4 Active Folic Acid 1 MG Oral TabletIndications:Encount er for long-term (current) use of medications TAKE ONE TABLET BY MOUTH EVERY MORNING 90 Tablet 3 4 Active Pantoprazole Sodium 40 MG Oral Tablet Delayed Release (Protonix) Take 1 Tablet by mouth in the morning. 30 Tablet 0 4 Active Pantoprazole Sodium 40 MG Oral Tablet Delayed Release (Protonix)Indications:Gas troesophageal reflux disease, unspecified whether esophagitis present Take 1 Tablet by mouth in the morning. 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 stage 3a chronic kidney disease 01/17/2023 Presence of permanent cardiac pacemaker 11/27/19 History of kidney stones 09/15/2022 Non-pressure chronic [...] to excess calories 0 08/09/2022 Atherosclerosis of elim ira ar jania of left lower extremity with intermittent claudication 08/09/2022 Coronary artery disease invo lving elim ira coronary artery of elim ira heart with angina pectoris 03/22/2022 Last Assessment [...] 12/21/2016 Overview: Diabetic retinopathy Rheumatoid arthritis of joint venture [facility] without rheumatoid factor 01/26/2016 Last Assessment [...] as of this encounter (statuses as of 05/28/2023) Resolved Problems Problem Noted Date Diagnosed Date Resolved Date ALONA (acute kidney injury) 11/27/2022 Immunosuppression due to chronic steroid use 01/17/2023 Hypertensive heart and kidne y disease [...] gastric ulcer 09/03/2021 Calculus of kidney 09/03/2021 3 Last Assessment & Plan: UTI/pyelo/sepsis/stone in August. [...] program 11/08/2018 11/12/2019 Overview: DO NOT DELETE [facility] DETECT Study: Project # [id number], Yeast Washer: Manny Santacruz, PhD. SUMMARY: Goal: Establish test [...] contact study staff at ; after hours Yeast Washer via the [facility] vacuum filter operator . Please contact study team before resolving/deleting from patients problem list. Study phone number: [phone]. Diagnosis changed due to Research Module. Go to Snapshot for study details. Encounter for examination fo r normal comparison and control in clinical research program 11/08/2018 12/10/2021 Overview: DO NOT DELETE - [facility] Study: Project # [id number], Yeast Washer: Kevin Pearce, MS, MPH. SUMMARY: Goal: Establish [...] contact study staff at ; after hours Yeast Washer via the [facility] vacuum filter operator . - Please contact study team before resolving/deleting from patients problem list. Study phone number: [phone]. Diagnosis changed due to Research Module. Go [...] hypoxemia 03/31/2012 09/04/19 22 Overview: 06/06/12 CPAP 12 / RA -- low 89%, mean 95%, [...] LBP Hypopotassemia 02/13/2004 05/08/2012 STEROID RESPONDERS 06/12/2002 8 Senile nuclear cataract 03/29/200210/2017 Amblyopia 03/29/2002 09/03/2021 documented as of this encounter (statuses as of 05/28/2023) Immunizations Name Administration Dates Next Due COVID-19 mRNA, LNP-s, No Pre serve, 2-Dose Series (Moderna) 06/08/2021,12/17/2020,06/23/2020,11/2020 H1N1 2009 Influenza, IM 04/06/2009 MMR - Measles/Mumps/Rubella Vaccine 05/07/2019 PPD 09/09/2010,10/06/2009 Pneumococcal Conjugate Vacc, 13 Valent (Prevnar) 02/12/2015 Pneumococcal Polysaccharide PPV23 (Pneumovax) 05/07/2019,12/27/2013,10/24/2008 Seasonal Influenza Virus Vac cine, Unspecified Formulation 01/27/2021,12/25/2019,02/08/2019,01/10,01/11/2017,03/17/2016,02/13/20 15,12/27/2013,01/31/2013,12/22/2011,0 12/28/2010,01/08/2010,01/18/2008 Seasonal Influenza, PF, 6 M & above, IM , (FluLaval or Fluzone) 12/25/2019,02/08/2019,02/01/2018,06/2016,04/10/2009,04/06/2009 02/09/2020 Seasonal Influenza, Quadriva lent Hd (Fluzone [...] (15 years old or older) Yes 03/22/20 Cognitive Status Response Date of Assessm ent Because of a physical, menta l, or emotional condition, do you have serious difficulty concentrating, remembering, or making decisions? (5 years old or older) No 03/22/2022 documented as of this encounter Miscellaneous Notes * Telephone Encounter - Nathan Wu RN - 05/27/2023 2:[address] Leo benitez regarding CT Liver being cancelled. Dr. Franky benitez. * Telephone Encounter - Lian Dyson OSA - 05/27/2023 12:44 PM EST Patient calling asking to speak to someone regarding ct scan being canceled. documented in this encounter Plan of Treatment Upcoming Encounters Date Type Department Care Team (Late st Contact Info) Description 05/31/2023 1:30 PM EST Imaging Radiology [facility] [facility] [address] [facility] [place] [address] 06/06/2023 2:40 PM EST Pharmacy Pharmacy, [place] [address] [place] [address] [facility] [address] [facility] [address] 06/07/2023 1:20 PM EST Office Visit Sleep Disorders Ctr [facility] [address] [place] [phone] Vira Byrd DO [address] [place] [address] 07/27/2023 3:00 PM EDT Office Visit Cardiology, [facility] [address] [place] [address] Wood Wong PA-C [address] [place] [address] 08/01/2023 2:00 PM EDT Laboratory [facility], [place] [address] [facility] [phone] [facility] [address] [place] [address] 08/02/2023 2:00 PM EDT Office Visit Rheumatology [facility] [address] [facility] [place] [address] Eliot Castelan CRNP [address] [facility] [place] [address] 08/08/2023 12:30 PM EDT Office Visit Hematology/Oncology [facility] [address] [facility] [place] [address] Miguel A Alcantar MD [address] [facility] [place] [address] 08/18/2023 1:30 PM EDT Office Visit Nephrology, [facility] [address] [facility] [place] [address] ZeAna sanchez PA-C [address] [facility] [place] [address] 10/11/2023 5:40 PM EDT Office Visit [facility] [address] [place] [phone] David Umanzor MD [address] [place] [address] 03/07/2024 1:00 PM EST Office Visit Cardiology, [facility] [address] [place], [place] [phone] Manolo Millan MD [address] [place] [address] Scheduled Procedures Name Priority Associated Diagnoses [...] 05/13/2021, Additional history exists HbA1c 10/24/2023 04/25/2023, 2 11/2022, 04/13/2022, Additional history exists GFR 11/24/2023 05/26/2023, 02/0 04/2023, 04/25/2023, Additional history exists CKD PHOS USE SMARTSET 42506 12/02/20232 06/2022, 08/06/2022, 08/21/2021, Additional history exists CKD HGB USE SMARTSET 10842 03/25/202403/25, 03/25/2023, 02/28/2023, Additional history exists TSH 04/25/2024 04/25/2023, 01/0 06/2022, 05/13/2021, Additional history exists DXA Scan [...] this encounter Medical Devices Implanted Type Area Wire Drawing Die Maker Device Identifier Shelf Expiration Date Model / Serial / Lot [employer] Embosphere Micrspheres Implanted:Qty: 2 on 11/02/2019 by Ish Grove MD at [facility] Right: Abdomen [employer] 05/11/2022 S220GH / [id number] / [id number] Syr Pf 2ml Embospheres 100-300 - [id number] Implanted:Qty: 1 on 11/14/2020 at [facility] [employer] [id number] 08/22/2023 S220GH / / [id number] Lead Novus Bipolar 52cm - [id number] - [id number] Implanted:Qty: 1 on 12/29/2021 by Fatoumata Roland DO at [facility] Left: Heart [employer] : [facility] 11/18/2023 5076-52 / [id number] / N/A Description:right atrium Lead Pace Select[employer] 3830-69 - [id number] - [id number] Implanted:Qty: 1 on 12/29/2021 by Fatoumata Roland DO at [facility] Left: Heart [employer] : [facility] 11/21/2023 [id number] / [id number] / Description:right ventricle septum Pacemaker Whitley Xt Dr Hsu Wrls - [id number] - [id number] Implanted:Qty: 1 on 12/29/2021 by Fatoumata Roland DO at [facility] Left: Heart [employer] 05/25/2023 [id number] / [id number] / Envelope Antibacterial Tyrx - [id number] Implanted:Qty: 1 on 12/29/2021 by Fatoumata Roland DO at [facility] [employer] : CRM [id number] 09/23/2022 CMR [id number] / / [id number] Stent Synergy Xd Mr [id number] - [id number] Implanted:Qty: 1 on 03/22/2022 by Katalina Pearce MD at [facility] [employer] [id number] 07/17/2023 [id number] / / [id number] Valve Berhane 3 Ultra 26mm - [id number] Implanted:Qty: 1 on 12/09/2022 by Manolo Millan MD at [facility] [employer] [id number] 12/04/2023 [id number] / / documented as of this encounter Advance Directives Latest Code Status [...] the patient have Health Care Power of Health Policy Nurse? No Care Teams Supply Chain Development Manager Relationship Specialty Start Date End Date David Umanzor MD [address], [place] [phone] PCP - General 02/25/09 documented as of this encounter
--- OUTSIDE RECORDS SUMMARY | 2023-05-28 21:21 | External Medical Summary | Summary of Care ---
Author Name Unknown Organization [facility] Address [address] [place] [address] Phone [phone] Care Team Providers Care Java Software Developer Name Role Phone David Umanzor MD Primary Care Provider [phone]- [phone] Reason for Visit * Reason Comments Outpatient Testing Encounter Details Date Type Department Care Team (Late st Contact Info) Description 05/26/2023 11:30 AM EST Laboratory Laboratory, [address] [address] [address], Specimen Drop Off [address] [address] Stage 3a chronic kidney disease (HCC) Allergies Active Allergy Reactions Criticality Noted Date Comments Bactrim 02/09/2010 Cephalosporins Anaphylaxis,Edema face/lips/tongue High 04/11/2009 Anaphylaxis to cefaclor, facial swelling to cephalexin. Ciprofloxacin Low 03/30/2021 Other reaction(s): Nausea Butorphanol Tartrate 02/09/2010 Heart racing Sulfa Antibiotics Hives High 05/22/2002 Other reaction(s): Hives Trimethoprim 04/15/2022 Other reaction(s): Hives documented as of this encounter (statuses as of 05/26/2023) Medications Medication Sig Dispensed Refills Start Date End Date Status TYLENOL ARTHRITIS PAIN 650 MG PO TBCRIndications:arthritis Take by mouth as needed. 0 08/27/200 8 Active NEBULIZER/TUBING/MOUTHPIE CE KITIndications:Wheezing,A cute bronchitis, complicated use with nebs 1 pack 5 0 Active MULTIVITAMIN/IRON PO TABS 1 daily 0 Active BIOTENE MOISTURIZING MOUTH MT SOLNIndications:Dry mouth use four times daily 1 Bottle 1 2 Active Blood Glucose Monitoring Suppl ([employer] AUTOCODE BLOOD GLUCOSE) w/Device KITIndications:DM type 2 causing neurological disease, not at goal ([facility]) Test blood sugar 4 times daily Dx: E11.9 1 Kit 0 9 Active PRODIGY LANCETS 28G MISCIndications:DM type 2, not at goal ([facility]) TEST BLOOD SUAGER 4 TIMES A DAY [...] hemoglobin A1c goal of less than 7.0% ([facility]),Type 2 diabetes mellitus with stage 3 chronic kidney disease, with long-term current use of insulin, unspecified whether stage 3a or 3b CKD ([facility]),DM type 2 causing neurological disease, not at goal ([facility]) TEST BLOOD SUGAR UP TO FOUR TIMES DAILY 400 Strip 3 2 Active Fluticasone Propionate 50 MCG/ACT Nasal Suspension (Flonase)Indications:Dog Food Dough Mixer sanket rhinitis ADMINISTER 2 SPRAYS IN EACH [...] coma, without long-term current use of insulin ([facility]) Use to inject insulin 4 times daily 400 Each 3 3 Active Creon 05881-05997 UNIT Oral Capsule Delayed Release Particles (Pancrelipase ([id number]-Mkjo-Rsfd))Indicatio ns:Pancreatic insufficiency TAKE ONE CAPSULE BY MOUTH [...] coma, without long-term current use of insulin ([facility]) Inject 10 units with breakfast, 4 units with lunch, and 10 units with PM meal. Inject 4 units if BG is >200. 30 mL 5 3 Active Acetaminophen 500 MG Oral TabletIndications:HFrEF (heart failure with reduced ejection fraction) ([facility]),Coronary artery disease involving solomon coronary artery of solomon heart without angina pectoris,Nonrheumatic aortic valve stenosis,Cardiac pacemaker in situ,Tachy-wilfrido syndrome (HCC) Take 1 Tablet by mouth at bedtime. 0 Active Latanoprost 0.005 % Ophthalmic Solution (Xalatan) Instill 1 Drop into both eyes at bedtime. Please dispense 90 day supply 7.5 mL 1 3 Active Omeprazole 20 MG Oral Capsule Delayed Release (PriLOSEC)Indications:Gas troesophageal reflux disease, unspecified whether esophagitis present TAKE ONE CAPSULE BY MOUTH EVERY MORNING 90 Capsule 2 3 Active CPAP 1 Device every night [...] Active Gabapentin 300 MG Oral Capsule (Neurontin)Indications:Ac [place] on chronic combined systolic and diastolic congestive [...] with breakfast. 90 Tablet 3 3 Active Potassium Chloride ER 20 MEQ Oral Tablet Extended ReleaseIndications:Acute on chronic combined systolic and diastolic congestive heart failure (HCC) Take 2 Tablets by mouth every morning AND 2 Tablets every evening. 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 45 Tablet 0 4 Active Folic Acid 1 MG Oral TabletIndications:Encount er for long-term (current) use of medications TAKE ONE TABLET BY MOUTH EVERY MORNING 90 Tablet 3 4 Active documented as of this encounter (statuses as of 05/26/2023) Active Problems Problem Noted Date Diagnosed Date [...] to excess calories 0 08/09/2022 Atherosclerosis of solomon ar jania of left lower extremity with intermittent claudication 08/09/2022 Coronary artery disease invo lving solomon coronary artery of solomon heart with angina pectoris 03/22/2022 Last Assessment [...] 12/21/2016 Overview: Diabetic retinopathy Rheumatoid arthritis of [facility] sites without rheumatoid factor 01/26/2016 Last Assessment [...] -- AHI 17.1, significant hypoxia and PLMS C Vitamin D deficiency 04/21/2011 Iron deficiency anemia 03/15/2011 Overview: ICD-10 update of inactive term Last Assessment & Plan: Last hemoglobin 11.4 on 08/06 -continue ferrous sulfate. Med list updated. High triglycerides 02/13/2004 Overview: TG's as high as 6400 Postsurgical hypothyroidism 02/13/2004 Last Assessment & Plan: Last TSH 0.9 on 04/13/2022 -continue Synthroid documented as of this encounter (statuses as of 05/26/2023) Resolved Problems Problem Noted Date Diagnosed Date [...] next week. Diabetic foot ulcer 09/03/2021 09/04/19 22 Nephrolithiasis 09/03/2021 03/24/2022 Overview: DUPLICATE History of [...] program 11/08/2018 11/12/2019 Overview: DO NOT DELETE [facility] DETECT Study: Project # [id number], Production Planner Scheduler: Manny Santacruz, PhD. SUMMARY: Goal: Establish test [...] contact study staff at ; after hours Production Planner Scheduler via the [facility] hospital quill picking machine operator . Please contact study team before resolving/deleting from patients problem list. Study phone number: [phone]. Diagnosis changed due to Research Module. Go to Snapshot for study details. Encounter for examination fo r normal comparison and control in clinical research program 11/08/2018 12/10/2021 Overview: DO NOT DELETE [facility] Study: Project # [id number], Production Planner Scheduler: Kevin Pearce, MS, MPH. SUMMARY: Goal: Establish [...] contact study staff at ; after hours Production Planner Scheduler via the [facility] hospital quill picking machine operator . - Please contact study team before resolving/deleting from patients problem list. Study phone number: [phone]. Diagnosis changed due to Research Module. Go [...] as of this encounter (statuses as of 05/26/2023) Immunizations Name Administration Dates Next Due COVID-19 [...] No 03/22/2022 documented as of this encounter Plan of Treatment Upcoming Encounters Date Type Department Care Team (Late st Contact Info) Description 05/27/2023 8:30 AM EST Scheduled Telephone [facility], [facility] [address] [place] [address] Tatyana Delaney, RN [address] [facility] [place] [address] 05/31/2023 1:30 PM EST [facility] [address] [facility] [place] [address] 06/06/2023 2:40 PM EST Pharmacy Pharmacy, [place] [address] [place] [address] [facility] [address] [place] [address] 06/07/2023 1:20 PM EST Office Visit Sleep Disorders Ctr [facility] [address] [facility] [place] [phone] Vira Byrd DO [address] [place] [address] 07/27/2023 3:00 PM EDT Office Visit Cardiology, [facility] [address] [facility] [place] [address] Wood Wong PA-C [address] [facility] [place] [address] 08/01/2023 2:00 PM EDT [facility] [place] [address] [facility] [phone] [facility] [address] [place] [address] 08/02/2023 2:00 PM EDT Office Visit Rheumatology [facility] [address] [facility] [place], [place] [address] Eliot Castelan CRNP [address] [facility] [place], [place] [address] 08/08/2023 12:30 PM EDT Office Visit Hematology/Oncology [facility] [address] [facility] [place] [address] Miguel A Alcantar MD [address] [facility] [place] [address] 08/18/2023 1:30 PM EDT Office Visit Nephrology, [facility] [address] [facility] [place] [address] Ana Lin PA-C [address] [facility] [place] [address] 10/11/2023 5:40 PM EDT Office Visit Family [facility] [address] [place] [address] David Umanzor MD [address], [place] [phone] 03/07/2024 1:00 PM EST Office Visit Cardiology, [facility] [address] [facility] [place] [address] Manolo Millan MD [address] [place] [address] Pending Results Name Type Priority Associated Diagnoses Date /Time BASIC METABOLIC PANEL Lab Routine Stage 3a chronic kidney disease (HCC) 05/26/2023 11:26 AM EST Scheduled Procedures Name Priority Associated Diagnoses Date/Ti me ECHOCARDIOGRAPHY, TRANSESOPH AGEAL; INCLUDING PROBE PLACEMENT, IMAGE ACQUISITION, INTERPRETATION AND REPORT Aortic valve stenosis, etiology of cardiac valve disease unspecified COLONOSCOPY FLEXIBLE PROXIMA L DIAGNOSTIC Recall History of colon polyps Health Maintenance Due Date Last Done Comments Hepatitis B (1 of 3 - Risk 3-dose series) 2010 COLONOSCOPY-EVERY 3 YRS AGES 18-100 01/11/2022 01/11/2019, 08/25/2015, 08/25/2015, Additional history exists Depression Screening 06/25/2022 06/25/2021 Diabetic Foot Exam 06/25/2022 06/25/2021, 0 12/15/2018, 12/15/2018, Additional history exists COVID-19 Vaccine (2022- season) 2022 06/08/2021, 12/17/2020, 06/23/2020, Additional history exists Diabetic Eye Exam 05/27/2023 05/27/2022, , 05/27/2022, Additional history exists Mammogram 07/28/2023 07/27/2022, 07/10, 07/20/2021, Additional history exists Albumin/Creatinine Ratio 09/08/2023 023, 08/06/2022, 05/13/2021, Additional history exists HbA1c 10/24/2023 04/25/2023, 07/11, 04/13/2022, Additional history exists GFR 11/10/2023 05/12/2023, 04/11, 04/14/2023, Additional history exists CKD PHOS USE SMARTSET 16370 12/02/202311/10, 08/06/2022, 08/21/2021, Additional history exists CKD HGB USE SMARTSET 85524 03/25/202403/25, 03/25/2023, 02/28/2023, Additional history exists TSH [...] this encounter Medical Devices Implanted Type Area Shipping Processor Device Identifier Shelf Expiration Date Model / Serial / Lot [id number] Medical Embosphere Micrspheres Implanted:Qty: 2 on 11/02/2019 by Ish Grove MD at [facility] Right: Abdomen [employer] 05/11/2022 S220GH / [id number] / [id number] Syr Pf 2ml Embospheres 100-300 - [id number] Implanted:Qty: 1 on 11/14/2020 at [facility] [employer] [id number] 08/22/2023 S220GH / / [id number] Envelope Antibacterial Tyrx - [id number] Implanted:Qty: 1 on 12/29/2021 by Fatoumata Roland DO at [facility] [employer] : CRM [id number] 09/23/2022 CMR [id number] / / [id number] Stent Synergy Xd Mr 3.28z28kp - [id number] Implanted:Qty: 1 on 03/22/2022 by Katalina Pearce MD at [facility] [employer] [id number] 07/17/2023 [id number] / / [id number] Valve Berhane 3 Ultra 26mm - [id number] Implanted:Qty: 1 on 12/09/2022 by Manolo Millan MD at [facility] [employer] [id number] 12/04/2023 [id number] / / documented as of this encounter Visit Diagnoses Diagnosis Stage 3a chronic kidney disease (HCC) documented in this encounter Advance Directives Latest [...] the patient have Health Care Power of Plant Operator Control Room Operator? No Care Teams Java Software Developer Relationship Specialty Start Date End Date David Umanzor MD [address] [place] [address] PCP - General 02/25/09 documented as of this encounter
--- OUTSIDE RECORDS SUMMARY | 2023-05-28 21:21 | External Medical Summary | Summary of Care ---
Author Name Unknown Organization [facility] Address [address] [facility] [place] [address] Phone [phone] Care Team Providers Care Edge Finisher Name Role Phone David Umanzor MD Primary Care Provider [phone]- [phone] Reason for Visit * Reason Onset Date Comments [facility]: Acute 05/25/2023 Encounter Details Date Type Department Care Team (Late st Contact Info) Description 05/25/2023 Telephone [facility], [facility] [address] [facility] [place] [address] [facility], Nurse [facility] [address] [address] [facility]: Acute Allergies Active Allergy Reactions Criticality Noted Date Comments Bactrim 02/09/2010 Cephalosporins Anaphylaxis,Edema face/lips/tongue High 04/11/2009 Anaphylaxis to cefaclor, facial swelling to cephalexin. Ciprofloxacin Low 03/30/2021 Other reaction(s): Nausea Butorphanol Tartrate 02/09/2010 Heart racing Sulfa Antibiotics Hives High 05/22/2002 Other reaction(s): Hives Trimethoprim 04/15/2022 Other reaction(s): Hives documented as of this encounter (statuses as of 05/25/2023) Medications Medication Sig Dispensed Refills Start Date [...] 1 2 Active Blood Glucose Monitoring Suppl (Centice AUTOCODE BLOOD GLUCOSE) w/Device KITIndications:DM type 2 causing neurological disease, not at goal ([facility]) Test blood sugar 4 times daily Dx: E11.9 1 Kit 0 9 Active PRODIGY LANCETS 28G MISCIndications:DM type 2, not at goal ([facility]) TEST BLOOD SUAGER 4 TIMES A DAY [...] hemoglobin A1c goal of less than 7.0% ([facility]),Type 2 diabetes mellitus with stage 3 chronic kidney disease, with long-term current use of insulin, unspecified whether stage 3a or 3b CKD ([facility]),DM type 2 causing neurological disease, not at goal ([facility]) TEST BLOOD SUGAR UP TO FOUR TIMES DAILY 400 Strip 3 2 Active Fluticasone Propionate 50 MCG/ACT Nasal Suspension (Flonase)Indications:Boiler Tube Blower sanket rhinitis ADMINISTER 2 SPRAYS IN EACH [...] coma, without long-term current use of insulin ([facility]) Use to inject insulin 4 times daily 400 Each 3 3 Active Creon 00078-02243 UNIT Oral Capsule Delayed Release Particles (Pancrelipase (Npe-Tkpv-Uaad))Indicatio ns:Pancreatic insufficiency TAKE ONE CAPSULE BY MOUTH [...] coma, without long-term current use of insulin ([facility]) Inject 10 units with breakfast, 4 units with lunch, and 10 units with PM meal. Inject 4 units if BG is >200. 30 mL 5 3 Active Acetaminophen 500 MG Oral TabletIndications:HFrEF (heart failure with reduced ejection fraction) ([facility]),Coronary artery disease involving [place] coronary artery of [place] heart without angina pectoris,Nonrheumatic aortic valve stenosis,Cardiac [...] ANXIETY 40 Tablet 1 4 Active Nystatin 081812 UNIT/GM External Powder (Nyamyc) APPLY TO AFFECTED [...] HYDROcodone-Acetaminophen 5-325 MG Oral TabletIndications:Atheros clerosis of [place] artery of left lower extremity with intermittent [...] as of this encounter (statuses as of 05/25/2023) Active Problems Problem Noted Date Diagnosed Date [...] to excess calories 0 08/09/2022 Atherosclerosis of [place] ar jania of left lower extremity with intermittent claudication 08/09/2022 Coronary artery disease invo lving [place] coronary artery of [place] heart with angina pectoris 03/22/2022 Last Assessment [...] 12/21/2016 Overview: Diabetic retinopathy Rheumatoid arthritis of [facility] sites without rheumatoid factor 01/26/2016 Last [...] as of this encounter (statuses as of 05/25/2023) Resolved Problems Problem Noted Date Diagnosed Date [...] program 11/08/2018 11/12/2019 Overview: DO NOT DELETE [facility] DETECT Study: Project # [id number], Laboratory Clerk: Manny Santacruz, PhD. SUMMARY: Goal: Establish test [...] contact study staff at ; after hours Laboratory Clerk via the [facility] hospital bulking machine operator . Please contact study team before resolving/deleting from patients problem list. Study phone number: [phone]. Diagnosis changed due to Research Module. Go to Snapshot for study details. Encounter for examination fo r normal comparison and control in clinical research program 11/08/2018 12/10/2021 Overview: DO NOT DELETE - [facility] Study: Project # [id number], Laboratory Clerk: Kevin Pearce, MS, MPH. SUMMARY: Goal: Establish [...] contact study staff at ; after hours Laboratory Clerk via the [facility] hospital bulking machine operator . - Please contact study team before resolving/deleting from patients problem list. Study phone number: [phone]. Diagnosis changed due to Research Module. Go [...] 03/31/2012 09/04/19 22 Overview: 06/06/12 CPAP / -- low 89%, mean 95%, TUCKER 0 [...] as of this encounter (statuses as of 05/25/2023) Immunizations Name Administration Dates Next Due COVID-19 [...] encounter Miscellaneous Notes * Telephone Encounter - Gayathri Malagon RN - 05/25/2023 4:39 PM EST Patient called and aware of recommendations to try to wear the the tighter compression tubes/ socksor wraps. Patient said she will have her assist her tonight with the compression stockings. Gayathri Malagon RN Freight [employer] [facility] * Telephone Encounter - Luigi Jeff MD - 05/25/2023 4:30 PM EST That's great! Meanwhile, she should try wearing tighter compression tubes/socks or wraps * Telephone Encounter - Gayathri Malagon RN - 05/25/2023 4:16 PM EST TT to Tatyana FONTENOT RNCM about patients weight gain and complaints, she will have Home visit tomorrow instead of Tuesday. Patient called and aware Tatyana will have Home visit tomorrow around 10 am. Patient very appreciative that HV is tomorrow. Gayathri Malagon RN [employer] [facility] * Telephone Encounter - Gayathri Malagon RN - 05/25/2023 3:51 PM EST Called patient back, she stated she is wearing diabetic knee high stockings daily,they have some compression but are not too tight. She also has tubigrips , size D in her home but RN thought they would be too tight and she wouldnot tolerate them. HH RN has a HV 3 x a week and had a visit this morning. Patient said her abdomen is a little distended but has been like that for weeks. She is SOB when walking to the bathroom but is ok after a few minutes when she returns to her recliner, and that has been going on for weeks. She has also been dizzy for weeks. Patient was already scheduled for a HV on Tuesday with [facility] ANIBAL/ Tatyana Delaney. Gayathri Malagon RN [employer] [facility] * Telephone Encounter - Luigi Jeff MD - 05/25/2023 3:01 PM EST How about leg compression? How much? How often? * Telephone Encounter - France Frances LPN - 05/25/2023 2:34 PM EST Return call received from pt, she "just doesn't feel right". C/O decreased appetite, abdominal distention, increased edema from feet to thighs. She has had increased SOB walking to bathroom the past month. SOB has been worsening the past few days. She elevates legs throughout the day and sleeps in recliner at night with pillows under feet. Adherent to low sodium diet and fluid restriction. Encouraged to call [facility] with any concerns * Telephone Encounter - Gayathri Malagon RN - 05/25/2023 2:03 PM EST Called patient, no answer, left message to return call to [facility] for recommendations from Dr. Jeff. Also wanted to let patient know Tatyana BARNETT will obtain her ordered blood work during Fridays HV. Gayathri Malagon RN Freight [employer] [facility] * Telephone Encounter - Luigi Jeff MD - 05/25/2023 12:40 PM EST Leg swelling, wt increase, dizziness but no worsening of dyspnea. This all sounds like mostly peripheral edema not intravascular expansion Increased diuretics are unlikely to help and would increase risk of ALONA Recommend: Leg elevation (as high and much as possible) Leg compression (as high and tight as tolerable) Na restriction (as low as feasible) Continue to monitor Call if worsening SOB, dizziness, chest discomfort * Telephone Encounter - Gayathri Malagon RN - 05/25/2023 11:20 AM EST Images from the original note were not included. [facility] mechanical test technician Acute Call Date: 05/25/2023 Time: 11:20 AM Name: Orquidea Valencai : 1950 Caller: Orquidea Relationship to : self HPI: Orquidea Valencia is a 73 year old female that is calling [employer] [facility] to report on a [facility] nurse called her because her weight was increasing. Someone was suppose to call her back with instructions on what to do and no one did. Today her weight has increased again. Patient is currently taking Torsemide 150 mg po daily in the morning and Spironolactone 25 mg po daily in the morning. Denies SOB but states her lower legs are swollen. BP 112/62, HR 62, ox sat 97% this morning. Patient states she is keeping her legs elevated, restricting fluids to 64 oz daily, eating a low salt diet. Occasional dizziness on movement. Sometimes has to sit back down when she stands up until dizziness passes. She is using her walker at all times. Concerned that her weight is increasing daily. Patient stated Dr. Mcbride / Nephrology requested blood work (BMP) because she was having trouble with her BP's running low. Patient stated she is suppose to go to the lab tomorrow for a BMP , she is hesitant to go because of the dizziness she has been having, asking if Tatyana BARNETT who is scheduled for a HV on tuesday can draw the blood work or if mobile phlebotomy can? TT To ANIBAL Cadet , she will obtain blood work during HV on Tuesday. Nursing Assessment: Patient's chief complaint for this call: Other, describe :weight gain and edema Pain Denies pain Baseline Assessment Able to performing ADLs at baseline (walking, daily tasks, etc.): No Chief Complaint is related to a chronic condition: Unknown Patient prescribed oxygen? No Patient has been ordered DME equipment (assistive devices, respiratory equipment, etc.): Yes Describe DME devices: walker Patient is using DME device as directed: Yes Medication Reconciliation: (See medication list) Received flu shot this season: Yes Taking medication as ordered: Yes Medications ordered/taking to treat reason for call: No Heart failure symptoms: Unknown COPD exacerbation symptoms: No Reinforcement Education: Continue current medications Elevate lower legs when sitting Follow low salt diet Restrict fluids Change positions slowly and use walker at all times to prevent falls. Treatment/Plan: (need to report) Level of call: Acute Appointment scheduled for same day: TBD Await [facility] recommendations Follow up phone call tomorrow Gayathri Malagon RN Freight Car Cleaner [employer] [facility] documented in this encounter Plan of Treatment Upcoming Encounters Date Type Department Care Team (Late st Contact Info) Description 05/26/2023 10:00 AM EST Home Visit [facility] at [address] [place] [address] Tatyana Delaney RN [address] [place] [address] 05/26/2023 2:00 PM EST Laboratory Laboratory, [place] [address] [place] [facility] [place] [address] [facility] [address] [place] [address] 05/31/2023 1:30 PM EST Imaging Radiology [address] [facility] [address] 06/06/2023 2:40 PM EST Pharmacy Pharmacy, [place] [address] [place] [place] [address] [place] [facility] [address] [place] [address] 06/07/2023 1:20 PM EST Office Visit Sleep Disorders Ctr [facility] [address] [place], [place] [address] Vira Byrd, [address] [place] [address] 07/27/2023 3:00 PM EDT Office Visit Cardiology, [facility] [address] [facility] [place] [address] Wood Wong PA-C [address] [place] [address] 08/01/2023 2:00 PM EDT Laboratory Laboratory, [place] [address] [place] [id number] [facility] [address] [place] [address] 08/02/2023 2:00 PM EDT Office Visit Rheumatology [place] [address] [facility] [place] [address] Eliot Castelan CRNP [address] [place] [address] [place] [address] 08/08/2023 12:30 PM EDT Office Visit Hematology/Oncology [facility] [address] [place] [address] Miguel A Alcantar MD [address] [place] [address] 08/18/2023 1:30 PM EDT Office Visit Nephrology, [facility] [address] [place] [address] Ana Lin PA-C [address] [place] [address] 10/11/2023 5:40 PM EDT Office Visit Family [facility], [place] [address] [place] [address] David Umanzor MD [address] [place] [address] 03/07/2024 1:00 PM EST Office Visit Cardiology, [facility] [address] [place] [address] Manolo Millan MD [address] [place] [address] Scheduled Procedures Name Priority Associated [...] Additional history exists CKD PHOS USE SMARTSET 20537 12/02/2023 0806/2022, 08/06/2022, 08/21/2021, Additional history exists CKD HGB USE SMARTSET 01858 03/25/202403/25, 03/25/2023, 02/28/2023, Additional history exists TSH [...] this encounter Medical Devices Implanted Type Area Assembler Semiconductor Device Identifier Shelf Expiration Date Model / Serial / Lot AMRAS [employer] Medical Embosphere Micrspheres Implanted:Qty: 2 on 11/02/2019 by Ish Grove MD at [facility] Right: Abdomen [employer] 05/11/2022 S220GH / [id number] / [id number] Syr Pf 2ml Embospheres 100-300 - [id number] Implanted:Qty: 1 on 11/14/2020 at [facility] [employer] [id number] 08/22/2023 S220GH / / [id number] Envelope Antibacterial Tyrx - [id number] Implanted:Qty: 1 on 12/29/2021 by Fatoumata Roland DO at OR [facility] [employer] : CRM [id number] 09/23/2022 CMR [id number] / / [id number] Stent Synergy Xd Mr 3.61v00sk - [id number] Implanted:Qty: 1 on 03/22/2022 by Katalina Pearce MD at [facility] [employer] [id number] 07/17/2023 [id number] / / [id number] Valve Berhane 3 Ultra 26mm - [id number] Implanted:Qty: 1 on 12/09/2022 by Manolo Millan MD at [facility] [employer] [id number] 12/04/2023 [id number] / / documented as of this encounter [...] the patient have Health Care Power of Cylinder Machine Operator? No Care Teams Edge Finisher Relationship Specialty Start Date End Date David Umanzor MD [address] [place] [address] PCP - General 02/25/09 documented as of this encounter
--- OUTSIDE RECORDS SUMMARY | 2023-05-28 21:21 | External Medical Summary | Summary of Care ---
Author Name Unknown Organization [facility] Address [address] [facility] [place] [address] Phone [phone] Care Team Providers Care Clearance Center Manager Name Role Phone David Umanzor MD Primary Care Provider [phone]- [phone] Reason for Visit * Reason Onset Date Comments [facility]: Maintenance 05/26/2023 Encounter Details Date Type Department Care Team (Late st Contact Info) Description 05/26/2023 Telephone [facility], [facility] 132 [facility] [place] [address] [facility], Nurse [facility] [address] [place] [address] [facility]: Maintenance Allergies Active Allergy Reactions Criticality Noted Date [...] 1 2 Active Blood Glucose Monitoring Suppl (Solaicx AUTOCODE BLOOD GLUCOSE) w/Device KITIndications:DM type 2 causing neurological disease, not at goal ([facility]) Test blood sugar 4 times daily Dx: E11.9 1 Kit 0 9 Active PRODIGY LANCETS 28G MISCIndications:DM type 2, not at goal ([facility]) TEST BLOOD SUAGER 4 TIMES A [...] hemoglobin A1c goal of less than 7.0% ([facility]),Type 2 diabetes mellitus with stage 3 chronic kidney disease, with long-term current use of insulin, unspecified whether stage 3a or 3b CKD ([facility]),DM type 2 causing neurological disease, not at goal ([facility]) TEST BLOOD SUGAR UP TO FOUR TIMES DAILY 400 Strip 3 2 Active Fluticasone Propionate 50 MCG/ACT Nasal Suspension (Flonase)Indications:Dental Service Technician sanket rhinitis ADMINISTER 2 SPRAYS IN EACH [...] coma, without long-term current use of insulin ([facility]) Use to inject insulin 4 times daily 400 Each 3 3 Active Creon 12221-43973 UNIT Oral Capsule Delayed Release Particles (Pancrelipase (Vzy-Tbbs-Lwrx))Indicatio ns:Pancreatic insufficiency TAKE ONE CAPSULE BY MOUTH [...] coma, without long-term current use of insulin ([facility]) Inject 10 units with breakfast, 4 units with lunch, and 10 units with PM meal. Inject 4 units if BG is >200. 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 [...] ANXIETY 40 Tablet 1 4 Active Nystatin 537706 UNIT/GM External Powder (Nyamyc) APPLY TO AFFECTED [...] HYDROcodone-Acetaminophen 5-325 MG Oral TabletIndications:Atheros clerosis of [place] artery of left lower extremity with intermittent [...] to excess calories 0 08/09/2022 Atherosclerosis of [place] ar jania of left lower extremity with intermittent claudication 08/09/2022 Coronary artery disease invo lving [place] coronary artery of [place] heart with angina pectoris 03/22/2022 Last Assessment [...] [facility] sites without rheumatoid factor 01/26/2016 Last Assessment [...] program 11/08/2018 11/12/2019 Overview: DO NOT DELETE [facility] DETECT Study: Project # [id number], Incinerator Operator: Manny Santacruz, PhD. SUMMARY: Goal: Establish test [...] contact study staff at ; after hours Incinerator Operator via the [facility] hospital charge machine operator . Please contact study team before resolving/deleting from patients problem list. Study phone number: [phone]. Diagnosis changed due to Research Module. Go to Snapshot for study details. Encounter for examination fo r normal comparison and control in clinical research program 11/08/2018 12/10/2021 Overview: DO NOT DELETE - [facility] Study: Project # [id number], Incinerator Operator: Kevin Pearce, MS, MPH. SUMMARY: Goal: Establish [...] contact study staff at ; after hours Incinerator Operator via the [facility] hospital charge machine operator . - Please contact study team before resolving/deleting from patients problem list. Study phone number: [phone]. Diagnosis changed due to Research Module. Go [...] encounter Miscellaneous Notes * Telephone Encounter - Fany Luis RN - 05/26/2023 3:07 PM EST PC from patient requesting PC from RNCM . Patient has questions surrounding APS situation RNCM please call pt back at your convenience. Thanks Fany Luis RN, BSN [facility] procurement consultantCassandra Architect documented in this encounter Plan of Treatment Upcoming Encounters Date Type Department Care Team (Late st Contact Info) Description 05/27/2023 8:30 AM EST Scheduled Telephone [facility], [facility] [address] [place] [address] Tatyana Delaney RN [address] [place] [address] 05/31/2023 1:30 PM EST Imaging Radiology [facility] [facility] [address] [place] [address] 06/06/2023 2:40 PM EST Pharmacy Pharmacy, [place] [address] [place] [address] [facility] [address] [place] [address] 06/07/2023 1:20 PM EST Office Visit Sleep Disorders Ctr [facility] [address] [place] [phone] Vira Byrd DO 132 [place] [address] 07/27/2023 3:00 PM EDT Office Visit Cardiology, [facility] [address] [place] [address] Wood Wong PA-C [address] [facility] [address] 08/01/2023 2:00 PM EDT Laboratory Laboratory, [place] [address] [place] [address] [facility] [address] [place] [address] 08/02/2023 2:00 PM EDT Office Visit Rheumatology [facility] [address] [place] [address] Eliot Castelan CRNP [address] [facility] [place] [address] 08/08/2023 12:30 PM EDT Office Visit Hematology/Oncology [facility] [address] [facility] [place] [address] Miguel A Alcantar MD [address] [facility] [place] [address] 08/18/2023 1:30 PM EDT Office Visit Nephrology, [facility] [address] [facility] [place] [address] Ana Lin PA-C [address] [facility] [place] [address] 10/11/2023 5:40 PM EDT Office Visit Family Practice, [place] [address] [place] [address] David Umanzor MD [address] [place] [address] 03/07/2024 1:00 PM EST Office Visit Cardiology, [facility] [address] [facility] [place] [address] Manolo Millan MD [address] [place] [address] Scheduled Procedures Name Priority Associated Diagnoses Date/Ti [...] Additional history exists CKD PHOS USE SMARTSET 30987 12/02/202311/10, 08/06/2022, 08/21/2021, Additional history exists CKD HGB USE SMARTSET 77044 03/25/202403/25, 03/25/2023, 02/28/2023, Additional history exists TSH [...] this encounter Medical Devices Implanted Type Area Geophysical Support Specialist Device Identifier Shelf Expiration Date Model / Serial / Lot beBetter Health Medical Embosphere Micrspheres Implanted:Qty: 2 on 11/02/2019 by Ish Grove MD at [facility] Right: Abdomen [employer] 05/11/2022 S220GH / S220GH / [id number] Syr Pf 2ml Embospheres 100-300 - [id number] Implanted:Qty: 1 on 11/14/2020 at [facility] [employer] [id number] 08/22/2023 S220GH / / [id number] Envelope Antibacterial Tyrx - [id number] Implanted:Qty: 1 on 12/29/2021 by Fatoumata Roland DO at OR [facility] [employer] : CRM [id number] 09/23/2022 CMR [id number] / / [id number] Stent Synergy Xd Mr 3.58e68qj - [id number] Implanted:Qty: 1 on 03/22/2022 by Katalina Pearce MD at [facility] [employer] [id number] 07/17/2023 [id number] / / [id number] Valve Berhane 3 Ultra 26mm - [id number] Implanted:Qty: 1 on 12/09/2022 by Manolo Millan MD at [facility] [employer] [id number] 12/04/2023 [id number] / / documented as of this encounter [...] the patient have Health Care Power of Plate Glass Installer? No Care Teams Clearance Center Manager Relationship Specialty Start Date End Date David Umanzor MD [address] [place] [address] PCP - General 02/25/09 documented as of this encounter
--- OUTSIDE RECORDS SUMMARY | 2023-05-28 21:21 | External Medical Summary | Summary of Care ---
Author Name Unknown Organization [facility] Address [address] [facility] [place] [address] Phone [phone] Care Team Providers Care Sponsorship Manager Name Role Phone David Umanzor MD Primary Care Provider [phone]- [phone] Reason for Visit * Reason Onset Date Comments Advice 05/25/2023 Pt's creatinine Encounter Details Date Type Department Care Team (Late st Contact Info) Description 05/25/2023 Telephone Radiology [address] [place] [id number] Samia Echavarria, RT (R) Advice (Pt's creatinine) Allergies Active Allergy Reactions Criticality Noted Date [...] neurological disease, not at goal ([facility]) Test blood sugar 4 times daily Dx: E11.9 1 Kit 0 9 Active PRODIGY LANCETS 28G MISCIndications:DM type 2, not at goal ([facility]) TEST BLOOD SUAGER 4 TIMES A [...] goal of less than 7.0% ([facility]),Type 2 diabetes mellitus with stage 3 chronic kidney disease, with long-term current use of insulin, unspecified whether stage 3a or 3b CKD ([facility]),DM type 2 causing neurological disease, not at goal ([facility]) TEST BLOOD SUGAR UP TO FOUR TIMES DAILY 400 Strip 3 2 Active Fluticasone Propionate 50 MCG/ACT Nasal Suspension (Flonase)Indications:Rock Loader sanket rhinitis ADMINISTER 2 SPRAYS IN EACH [...] long-term current use of insulin ([facility]) Use to inject insulin 4 times daily 400 Each 3 3 Active Creon 50073-36468 UNIT Oral Capsule Delayed Release Particles (Pancrelipase (Hgx-Rnem-Upic))Indicatio ns:Pancreatic insufficiency TAKE ONE CAPSULE BY MOUTH [...] long-term current use of insulin ([facility]) Inject 10 units with breakfast, 4 units with lunch, and 10 units with PM meal. Inject 4 units if BG is >200. 30 mL 5 3 Active Acetaminophen 500 MG Oral TabletIndications:HFrEF (heart failure with reduced ejection fraction) ([facility]),Coronary artery disease involving [place] coronary artery of [place] heart without angina pectoris,Nonrheumatic aortic valve stenosis,Cardiac pacemaker in situ,Tachy-wilfrido syndrome ([facility]) Take 1 Tablet by mouth at [...] long-term current use of insulin ([facility]) Inject 30 units daily 45 mL 1 [...] Active Gabapentin 300 MG Oral Capsule (Neurontin)Indications:Ac qagan tayagungin on chronic combined systolic and diastolic congestive [...] ANXIETY 40 Tablet 1 4 Active Nystatin 430189 UNIT/GM External Powder (Nyamyc) APPLY TO AFFECTED [...] HYDROcodone-Acetaminophen 5-325 MG Oral TabletIndications:Atheros clerosis of [place] artery of left lower extremity with intermittent [...] to excess calories 0 08/09/2022 Atherosclerosis of [place] ar jania of left lower extremity with intermittent claudication 08/09/2022 Coronary artery disease invo lving ge[place] coronary artery of [place] heart with angina pectoris 03/22/2022 Last Assessment [...] 12/21/2016 Overview: Diabetic retinopathy Rheumatoid arthritis of [facility] sites without rheumatoid factor 01/26/2016 Last Assessment [...] program 11/08/2018 11/12/2019 Overview: DO NOT DELETE [facility] DETECT Study: Project # [id number], Child Care Aide: Manny Santacruz, PhD. SUMMARY: Goal: Establish test [...] contact study staff at ; after hours Child Care Aide via the [facility] dewaterer operator . Please contact study team before resolving/deleting from patients problem list. Study phone number: [phone]. Diagnosis changed due to Research Module. Go to Snapshot for study details. Encounter for examination fo r normal comparison and control in clinical research program 11/08/2018 12/10/2021 Overview: DO NOT DELETE - [facility] Study: Project # [id number], Child Care Aide: Kevin Pearce, MS, MPH. SUMMARY: Goal: Establish [...] contact study staff at ; after hours Child Care Aide via the [facility] dewaterer operator . - Please contact study team before resolving/deleting from patients problem list. Study phone number: [phone]. Diagnosis changed due to Research Module. Go [...] encounter Miscellaneous Notes * Telephone Encounter - Samia Echavarria RT (R) - 05/27/2023 10:08 AM EST Creatinine was re-drawn on 05/26/23 & results are 1.12/07. As previously stated radiologist recommended not to scan with IV contrast or without. Please let myself & the patient know if you are cancelling at this time. Thank you, Samia * Telephone Encounter - Gayathri Malagon RN - 05/25/2023 2:10 PM EST Tatyana Delaney [facility] ДМИТРИЙCM will obtain blood work during Fridays . Gayathri Malagon therapy coordinatorForm Tamping Machine Operator [facility] * Telephone Encounter - Angelika Heredia RN - 05/25/2023 1:24 PM EST Called patient. She states that Dr Gooden office had called her and she is scheduled for repeat labs already tomorrow 05/26/23 (appt noted in patients chart). She states that sometimes when she goes to [facility], they don't have a good wheelchair so she can't get into the building. She spoke to [facility] and they were going to check if Tatyana could draw her BMP at her home visit 05/27. Advised her that I will also send Tatyana a message to check, she verbalized understanding. She would like to be called about her labs to confirm whether the results are ok for her CT scan ornot. Chaulie: - can you please confirm whether you can draw BMP Tuesday or if patient would need to try to go to [facility] lab? - reviewed recommendations in other encounter- patient states that she has 2 kinds of compression socks (diabetic socks to the knees and some other kind of tube sock), states that she has to be careful with compression so wants to clarify which compression socks to use * Telephone Encounter - Eliazar Krishna MD - 05/25/2023 1:16 PM EST Last kidney function test was check on 05/12/2023. She has fluctuating kidney function test, she is on diuretic therapy which may be contributing to the fluctuation in the kidney function. Maybe we can recheck serum creatinine now. * Telephone Encounter - Samia Echavarria RT (R) - 05/25/2023 12:51 PM EST Erica. Pt is scheduled for CT 4 ph liver on 05/31/23. Her creatinine is 1.9 & GFR is 27. I checked with radiologist & he said he would not give the IV contrast & skip the non-contrast of the liver because it would not give any information. I am going to cancel this appointment If that is ok with you guys. Thank you, Samia/CT documented in this encounter Plan of Treatment Upcoming Encounters Date Type Department Care Team (Late st Contact Info) Description 05/31/2023 1:30 PM EST Imaging Radiology [address] [facility] [place] [address] 06/06/2023 2:40 PM EST Pharmacy Pharmacy, [place] [address] [place] [address] [facility] [address] [place] [address] 06/07/2023 1:20 PM EST Office Visit Sleep Disorders Ctr [facility] 132 [facility] [place] [phone] Vira Byrd, 132 [facility] [place] [address] 07/27/2023 3:00 PM EDT Office Visit Cardiology, [facility] [address] [place] [address] Wood Wong PA-C [address] [place] [address] 08/01/2023 2:00 PM EDT Laboratory Laboratory, [facility] [address] [place] [place] [address] [facility] [address] [place] [address] 08/02/2023 2:00 PM EDT Office Visit Rheumatology [facility] [address] [facility] [place] [address] Eliot Castelan CRNP [address] [facility] [place] [address] 08/08/2023 12:30 PM EDT Office Visit Hematology/Oncology [facility] [address] [facility] [place] [address] Miguel A Alcantar MD [address] [facility] [place] [address] 08/18/2023 1:30 PM EDT Office Visit Nephrology, [facility] [address] [place] [address] ZeAna sanchez PA-C [address] [facility] [place] [address] 10/11/2023 5:40 PM EDT Office Visit [facility], [facility] [address] [facility] [address] David Umanzor MD [address] [facility] [place] [address] 03/07/2024 1:00 PM EST Office Visit Cardiology, [facility] [address] [place] [address] Manolo Millan MD [address] [facility] [place] [address] Scheduled Procedures Name Priority [...] Additional history exists CKD PHOS USE SMARTSET 38550 12/02/202311/10, 08/06/2022, 08/21/2021, Additional history exists CKD HGB USE SMARTSET 57080 03/25/202403/25, 03/25/2023, 02/28/2023, Additional history exists TSH [...] this encounter Medical Devices Implanted Type Area Eeo Officer Device Identifier Shelf Expiration Date Model / Serial / Lot StreetSpark Medical Embosphere Micrspheres Implanted:Qty: 2 on 11/02/2019 by Ish Grove MD at [facility] Right: Abdomen [employer] 05/11/2022 S220GH / S220GH / [id number] Syr Pf 2ml Embospheres 100-300 - [id number] Implanted:Qty: 1 on 11/14/2020 at [facility] [employer] [id number] 08/22/2023 S220GH / / [id number] Lead Novus Bipolar 52cm - [id number] - [id number] Implanted:Qty: 1 on 12/29/2021 by Fatoumata Roland DO at [facility] Left: Heart [employer] : CRM 11/18/2023 5076-52 / [id number] / N/A Description:right atrium Lead Pace Selectsecure 3830-69 - [id number] - [id number] Implanted:Qty: 1 on 12/29/2021 by Fatoumata Roland DO at [facility] Left: Heart [employer] : CRM 11/21/2023 [id number] / [id number] / Description:right ventricle septum Pacemaker Harman Xt Dr Hsu Wrls - [id number] - [id number] Implanted:Qty: 1 on 12/29/2021 by Fatoumata Roland DO at [facility] Left: Heart [employer] 05/25/2023 [id number] / [id number] / Envelope Antibacterial Tyrx - [id number] Implanted:Qty: 1 on 12/29/2021 by Fatoumata Roland DO at [facility] [employer] : CRM [id number] 09/23/2022 CMR [id number] / / [id number] Stent Synergy Xd Mr 3.35w97qn - [id number] Implanted:Qty: 1 on 03/22/2022 by Katalina Pearce MD at [facility] [employer] [id number] 07/17/2023 [id number] / / [id number] Valve Berhane 3 Ultra 26mm - [id number] Implanted:Qty: 1 on 12/09/2022 by Manolo Millan MD at [facility] [employer] [id number] 12/04/2023 [id number] / / documented as of this encounter [...] the patient have Health Care Power of Senior Professional Services Consultant? No Care Teams Sponsorship Manager Relationship Specialty Start Date End Date David Umanzor MD [address] [place] [address] PCP - General 02/25/09 documented as of this encounter
--- OUTSIDE RECORDS SUMMARY | 2023-05-28 21:21 | External Medical Summary | Summary of Care ---
Author Name Unknown Organization [facility] Address [address] [place] [address] Phone [phone] Care Team Providers Care Casing In Line Setter Name Role Phone David Umanzor MD Primary Care Provider +1- [phone] Reason for Visit * Reason Onset Date Comments Order Request 05/23/2023 Encounter Details Date Type Department Care Team (Late st Contact Info) Description 05/23/2023 Telephone [facility] [address] [place] [address] David Umanzor MD [address] [place] [address] Order Request Allergies Active Allergy Reactions Criticality Noted Date [...] 1 2 Active Blood Glucose Monitoring Suppl (WellAppsIGGonnaBe AUTOCODE BLOOD GLUCOSE) w/Device KITIndications:DM type 2 causing neurological disease, not at goal ([facility]) Test blood sugar 4 times daily Dx: E11.9 1 Kit 0 9 Active PRODIGY LANCETS 28G MISCIndications:DM type 2, not at goal ([facility]) TEST BLOOD SUAGER 4 TIMES A [...] goal of less than 7.0% ([facility]),Type 2 diabetes mellitus with stage 3 chronic kidney disease, with long-term current use of insulin, unspecified whether stage 3a or 3b CKD ([facility]),DM type 2 causing neurological disease, not at goal ([facility]) TEST BLOOD SUGAR UP TO FOUR TIMES DAILY 400 Strip 3 2 Active Fluticasone Propionate 50 MCG/ACT Nasal Suspension (Flonase)Indications:Impregnating Machine Operator sanket rhinitis ADMINISTER 2 SPRAYS IN EACH [...] long-term current use of insulin ([facility]) Use to inject insulin 4 times daily 400 Each 3 3 Active Creon 41714-59581 UNIT Oral Capsule Delayed Release Particles (Pancrelipase (Eep-Bney-Zism))Indicatio ns:Pancreatic insufficiency TAKE ONE CAPSULE BY MOUTH [...] long-term current use of insulin ([facility]) Inject 10 units with breakfast, 4 units with lunch, and 10 units with PM meal. Inject 4 units if BG is >200. 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 45 Tablet 0 4 Active documented as of this encounter [...] to excess calories 0 08/09/2022 Atherosclerosis of [place] ar jania of left lower extremity with intermittent claudication 08/09/2022 Coronary artery disease invo lving [place] coronary artery of [place] heart with angina pectoris 03/22/2022 Last Assessment [...] 12/21/2016 Overview: Diabetic retinopathy Rheumatoid arthritis of [facility] sites without rheumatoid factor 01/26/2016 Last Assessment [...] DELETE [facility] DETECT Study: Project # [id number], Senior Geologist: Manny Santacruz, PhD. SUMMARY: Goal: Establish test [...] contact study staff at ; after hours Senior Geologist via the [facility] baling press operator . Please contact study team before resolving/deleting from patients problem list. Study phone number: [phone]. Diagnosis changed due to Research Module. Go to Snapshot for study details. Encounter for examination fo r normal comparison and control in clinical research program 11/08/2018 12/10/2021 Overview: DO NOT DELETE - [facility] Study: Project # [id number], Senior Geologist: Kevin Pearce, MS, MPH. SUMMARY: Goal: Establish [...] contact study staff at ; after hours Senior Geologist via the [facility] baling press operator . - Please contact study team before resolving/deleting from patients problem list. Study phone number: [phone]. Diagnosis changed due to Research Module. Go [...] encounter Miscellaneous Notes * Telephone Encounter - Fatoumata Cadena RN - 05/26/2023 1:25 PM EST Tatyana with [email or web address] who is following patient will send a referral to the manager social services on their team, will make [facility] involved Fatoumata Cadena RN * Telephone Encounter - David Umanzor MD - 05/26/2023 9:10 AM EST [place], You understand what options are available to [facility] patients better than I. [facility] already involved. The message below seems to indicate that a Home Health agency is requesting an order for a manager social services. Are you aware who we can get involved, if appropriate and what thereferral order would be? * Telephone Encounter - Tsering Cole CCMA - 05/23/2023 2:23 PM EST Please advise as below. Thank you. * Telephone Encounter - Papito Leiva OSA - 05/23/2023 1:57 PM EST An order was requested for this patient. Name of Requesting Provider: [facility] Order Requested: Varnish Melter Helper Evaluate for Community Resources Fax Number, if applicable: [phone] Call Back Number: [phone] documented in this encounter Plan of Treatment Upcoming Encounters Date Type Department Care Team (Late st Contact Info) Description 05/27/2023 8:30 AM EST Scheduled Telephone [facility] [place] [address] [place] [address] Tatyana Delaney RN [address] [place] [address] 05/31/2023 1:30 PM EST Imaging Radiology [facility] [address] [facility] [place] [address] 06/06/2023 2:40 PM EST Pharmacy Pharmacy, [place] [address] [place] [address] [facility] [address] [place] [address] 06/07/2023 1:20 PM EST Office Visit Sleep Disorders Ctr [facility] 132 [facility] [place] [phone] Vira Byrd DO [address] [facility] [place] [address] 07/27/2023 3:00 PM EDT Office Visit Cardiology, [facility] 132 [facility] [place] [address] Wood Wong PAMirandaC [facility] [address] 08/01/2023 2:00 PM EDT Laboratory Laboratory, [place] [address] [place] [facility] [phone] [facility] [address] [place] [address] 08/02/2023 2:00 PM EDT Office Visit Rheumatology [facility] [address] [facility] [place] [address] Eliot Castelan CRNP [address] [facility] [place] [address] 08/08/2023 12:30 PM EDT Office Visit Hematology/Oncology [facility] [address] [facility] [place] [address] Miguel A Alcantar MD [address] [facility] [address] 08/18/2023 1:30 PM EDT Office Visit Nephrology, [facility] [address] [facility] [place] [address] Ana Lin PA-C [address] [facility] [place] [address] 10/11/2023 5:40 PM EDT [facility] [address] [place] [address] David Umanzor MD [address] [place] [address] 03/07/2024 1:00 PM EST Office Visit Cardiology, [facility] [address] [place] [address] Manolo Millan MD [address] [place] [address] Scheduled Procedures Name Priority Associated [...] Additional history exists CKD PHOS USE SMARTSET 29456 12/02/202311/10, 08/06/2022, 08/21/2021, Additional history exists CKD HGB USE SMARTSET 13723 03/25/202403/25, 03/25/2023, 02/28/2023, Additional history exists TSH [...] this encounter Medical Devices Implanted Type Area Readiness Paraprofessional Device Identifier Shelf Expiration Date Model / Serial / Lot Merit Medical Embosphere Micrspheres Implanted:Qty: 2 on 11/02/2019 by Ish Grove MD at [facility] Right: Abdomen [employer] 05/11/2022 S220GH / S220GH / [id number] Syr Pf 2ml Embospheres 100-300 - [id number] Implanted:Qty: 1 on 11/14/2020 at [facility] [employer] [id number] 08/22/2023 S220GH / / [id number] Envelope Antibacterial Tyrx - [id number] Implanted:Qty: 1 on 12/29/2021 by Fatoumata Roland DO at [facility] [employer] : CRM [id number] 09/23/2022 CMR M6122 / / [id number] Stent Synergy Xd Mr 3.89i18fs - [id number] Implanted:Qty: 1 on 03/22/2022 by Katalina Pearce MD at [facility] [employer] [id number] 07/17/2023 [id number] / / [id number] Valve Berhane 3 Ultra 26mm - [id number] Implanted:Qty: 1 on 12/09/2022 by Manolo Millan MD at [facility] [employer] [id number] 12/04/2023 [id number] / / documented as of this encounter [...] the patient have Health Care Power of Sign Hanger? No Care Teams Casing In Line Setter Relationship Specialty Start Date End Date David Umanzor MD [address] [facility] [place] [address] PCP - General 02/25/09 documented as of this encounter
--- OUTSIDE RECORDS SUMMARY | 2023-05-28 21:21 | External Medical Summary | Summary of Care ---
Author Name Unknown Organization [facility] Address [address] [facility] [place] [address] Phone [phone] Care Team Providers Care Fiber Optic Technician Name Role Phone David Umanzor MD Primary Care Provider [phone]- [phone] Reason for Visit * Reason Onset Date Comments Restoration Ecologist Documentation 05/27/2023 Encounter Details Date Type Department Care Team (Late st Contact Info) Description 05/27/2023 8:30 AM EST Scheduled Telephone [facility], [facility] [address] [facility] [place] [address] [facility] [address] [facility] [id number] Allergies Active Allergy Reactions Criticality Noted Date [...] 1 2 Active Blood Glucose Monitoring Suppl (Best Learning English AUTOCODE BLOOD GLUCOSE) w/Device KITIndications:DM type 2 causing neurological disease, not at goal ([facility]) Test blood sugar 4 times daily Dx: E11.9 1 Kit 0 9 Active PRODIGY LANCETS 28G MISCIndications:DM type 2, not at goal ([facility]) TEST BLOOD SUAGER 4 TIMES A [...] hemoglobin A1c goal of less than 7.0% ([facility]),Type 2 diabetes mellitus with stage 3 chronic kidney disease, with long-term current use of insulin, unspecified whether stage 3a or 3b CKD ([facility]),DM type 2 causing neurological disease, not at goal ([facility]) TEST BLOOD SUGAR UP TO FOUR TIMES DAILY 400 Strip 3 2 Active Fluticasone Propionate 50 MCG/ACT Nasal Suspension (Flonase)Indications:Radiator Fitter sanket rhinitis ADMINISTER 2 SPRAYS IN EACH [...] coma, without long-term current use of insulin ([facility]) Use to inject insulin 4 times daily 400 Each 3 3 Active Creon 64537-74492 UNIT Oral Capsule Delayed Release Particles (Pancrelipase (Qoa-Pbjv-Reuh))Indicatio ns:Pancreatic insufficiency TAKE ONE CAPSULE BY MOUTH [...] coma, without long-term current use of insulin ([facility]) Inject 10 units with breakfast, 4 units with lunch, and 10 units with PM meal. Inject 4 units if BG is >200. 30 mL 5 3 Active Acetaminophen 500 MG Oral TabletIndications:HFrEF (heart failure with reduced ejection fraction) ([facility]),Coronary artery disease involving standing rock coronary artery of standing rock heart without angina pectoris,Nonrheumatic aortic valve stenosis,Cardiac [...] ANXIETY 40 Tablet 1 4 Active Nystatin 542270 UNIT/GM External Powder (Nyamyc) APPLY TO AFFECTED [...] HYDROcodone-Acetaminophen 5-325 MG Oral TabletIndications:Atheros clerosis of standing rock artery of left lower extremity with intermittent [...] to excess calories 0 08/09/2022 Atherosclerosis of standing rock ar jania of left lower extremity with intermittent claudication 08/09/2022 Coronary artery disease invo lving standing rock coronary artery of standing rock heart with angina pectoris 03/22/2022 Last Assessment [...] 12/21/2016 Overview: Diabetic retinopathy Rheumatoid arthritis of [facility] sites without rheumatoid factor 01/26/2016 [...] DELETE [facility] DETECT Study: Project # [id number], Steam Bone Press Tender: Manny Santacruz, PhD. SUMMARY: Goal: Establish test [...] contact study staff at ; after hours Steam Bone Press Tender via the [facility] hospital press setup operator . Please contact study team before resolving/deleting from patients problem list. Study phone number: [phone]. Diagnosis changed due to Research Module. Go to Snapshot for study details. Encounter for examination fo r normal comparison and control in clinical research program 11/08/2018 12/10/2021 Overview: DO NOT DELETE - [facility] Study: Project # [id number], Steam Bone Press Tender: Kevin Pearce, MS, MPH. SUMMARY: Goal: Establish [...] contact study staff at ; after hours Steam Bone Press Tender via the [facility] hospital press setup operator . - Please contact study team before resolving/deleting from patients problem list. Study phone number: [phone]. Diagnosis changed due to Research Module. Go [...] encounter Miscellaneous Notes * Telephone Encounter - Tabby Bravo LCSW - 05/27/2023 9:18 AM EST Worker was consulted by Tatyana CHOE CM Follow up with WAIVER (IEB) for services Chart was reviewed. Worker reached out to Tatyana CHOE CM for clarification on the above. Tatyana CHOE CM was able to update this worker on her visit 05/26/23. As shared there were some concerns with pt's (French>caregiver) to his progressive dementia. French is the caregiver for Orquidea due to her blindness. Tatyana CHOE CM informed this worker that the dynamics between Orquidea and French have become strained. It seems to involve his ability to be empathic and may be consider to be verbally abusive. The following is being considered: Tatyana CHOE CM is contacting pt's son this AM to discuss the situation. WAIVER (IEB) can be called for an update by Orquidea ( [phone]) HIPAA excludes this worker from an update. This worker suggested Protective Services if Tatyana feels the situation may escalates due to Orquidea being dependent on French and he is an impaired caregiver. Tabby Bravo LCSW [facility] Direct Chill Casting Operator [facility] [phone] documented in this encounter Plan of Treatment Upcoming Encounters Date Type Department Care Team (Late st Contact Info) Description 05/31/2023 1:30 PM EST Imaging Radiology [facility] 1st [facility], [address] [place] [address] 06/06/2023 2:40 PM EST Pharmacy Pharmacy, [place] [address] [facility] [address] [place], [facility] [address] [facility] [address] 06/07/2023 1:20 PM EST Office Visit Sleep Disorders Ctr [facility] [address] [place] [phone] Vira Byrd DO [address] [place] [address] 07/27/2023 3:00 PM EDT [facility] [address] [facility] [place] [address] Wood Wong PA-C [address] [place] [address] 08/01/2023 2:00 PM EDT Laboratory Laboratory, [address] [address] [address] 08/02/2023 2:00 PM EDT Office Visit Rheumatology [place] [id number] [facility] [place] [address] Eliot Castelan CRNP [facility] [place] [address] 08/08/2023 12:30 PM EDT Office Visit Hematology/Oncology [facility] [place] [address] [place] [address] Miguel A Alcantar MD [address] [place] [address] 08/18/2023 1:30 PM EDT Office Visit Nephrology, [facility] [address] [place] [address] [address] Ana Lin PA-C [address] [place] [address] [address] 10/11/2023 5:40 PM EDT Office Visit Family [facility] [address] [place] [address] David Umanzor MD [address] [place] [address] 03/07/2024 1:00 PM EST Office Visit Cardiology, [facility] [address] [place] [address] Manolo Millan MD [address] [place] [address] Scheduled Procedures Name Priority Associated [...] Additional history exists CKD PHOS USE SMARTSET 15765 12/02/2023 08/2 06/2022, 08/06/2022, 08/21/2021, Additional history exists CKD HGB USE SMARTSET 20980 03/25/202403/25, 03/25/2023, 02/28/2023, Additional history exists TSH 04/25/2024 04/25/2023, 0 06/2022, 05/13/2021, Additional history exists DXA Scan [...] this encounter Medical Devices Implanted Type Area Clinical Trainer Device Identifier Shelf Expiration Date Model / Serial / Lot MedPro Medical Embosphere Micrspheres Implanted:Qty: 2 on 11/02/2019 by Ish Grove MD at [facility] Right: Abdomen [employer] 05/11/2022 S220GH / [id number] / [id number] Syr Pf 2ml Embospheres 100-300 - [id number] Implanted:Qty: 1 on 11/14/2020 at [facility] [employer] [id number] 08/22/2023 S220GH / / [id number] Lead Novus Bipolar 52cm - [id number] - [id number] Implanted:Qty: 1 on 12/29/2021 by Fatoumata Roland DO at OR [facility] Left: Heart [employer] : [facility] 11/18/2023 5076-52 / [id number] / N/A Description:right atrium Lead Pace Select[employer] 3830-69 - [id number] - [id number] Implanted:Qty: 1 on 12/29/2021 by Fatoumata Roland DO at OR [facility] Left: Heart [employer] : [facility] 11/21/2023 [id number] / [id number] / Description:right ventricle septum Pacemaker [place] Xt Dr Mri Wrls - [id number] - [id number] Implanted:Qty: 1 on 12/29/2021 by Fatoumata Roland DO at OR [facility] Left: Heart [employer] 05/25/2023 [id number] / [id number] / Envelope Antibacterial Tyrx - [id number] Implanted:Qty: 1 on 12/29/2021 by Fatoumata Roland DO at OR [facility] [employer] : [facility] [id number] 09/23/2022 CMR [id number] / / [id number] Stent Synergy Xd Mr 3.67e39tu - [id number] Implanted:Qty: 1 on 03/22/2022 by Katalina Pearce MD at [facility] [employer] [id number] 07/17/2023 [id number] / / [id number] Valve Berhane 3 Ultra 26mm - [id number] Implanted:Qty: 1 on 12/09/2022 by Manolo Millan MD at [facility] [employer] [id number] 12/04/2023 [id number] / / documented as of this encounter [...] the patient have Health Care Power of Customer Support Representative? No Care Teams Fiber Optic Technician Relationship Specialty Start Date End Date David Umanzor MD [address] [place] [address] PCP - General 02/25/09 documented as of this encounter
--- OUTSIDE RECORDS SUMMARY | 2023-05-28 21:21 | External Medical Summary | Summary of Care ---
Author Name Unknown Organization [facility] Address [address] [facility] [place] [address] Phone [phone] Care Team Providers Care Supervisor Pipeline Name Role Phone David Umanzor MD Primary Care Provider [phone]- [phone] Reason for Visit * Reason Onset Date Comments Advice 05/25/2023 Pt's creatinine Encounter Details Date Type Department Care Team (Late st Contact Info) Description 05/25/2023 Telephone Radiology [address] [place] [id number] Samia Echavarria, RT (R) Advice (Pt's creatinine) [...] Active Fluticasone Propionate 50 MCG/ACT Nasal Suspension (Flonase)Indications:Boat Outfitting Supervisor sanket rhinitis ADMINISTER 2 SPRAYS IN EACH [...] daily 400 Each 3 3 Active Creon 67877-71937 UNIT Oral Capsule Delayed Release Particles (Pancrelipase (Gnm-Xpon-Tyop))Indicatio ns:Pancreatic insufficiency TAKE ONE CAPSULE BY MOUTH [...] ([facility]),Coronary artery disease involving kletsel dehe wintun coronary artery of k[place] heart without angina pectoris,Nonrheumatic aortic valve stenosis,Cardiac pacemaker in situ,Tachy-wilfrido syndrome ([facility]) Take 1 Tablet by mouth at [...] of insulin ([facility]) Inject 30 units daily 45 mL [...] Active Gabapentin 300 MG Oral Capsule (Neurontin)Indications: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 [...] ANXIETY 40 Tablet 1 4 Active Nystatin 743294 UNIT/GM External Powder (Nyamyc) APPLY TO AFFECTED [...] HYDROcodone-Acetaminophen 5-325 MG Oral TabletIndications:Atheros clerosis of k[place] artery of left lower extremity with intermittent [...] to excess calories 0 08/09/2022 Atherosclerosis of [place] ar jania of left lower extremity with intermittent claudication 08/09/2022 Coronary artery disease invo lving kletsel dehe wintun coronary artery of kletsel de[place] heart with angina pectoris 03/22/2022 Last Assessment [...] 12/21/2016 Overview: Diabetic retinopathy Rheumatoid arthritis of [facility] sites without rheumatoid factor 01/26/2016 Last Assessment [...] DELETE [facility] DETECT Study: Project # [id number], Pattern Weaver: Manny Santacruz, PhD. SUMMARY: Goal: Establish test [...] contact study staff at ; after hours Pattern Weaver via the [facility] transfer station operator . Please contact study team before resolving/deleting from patients problem list. Study phone number: [phone]. Diagnosis changed due to Research Module. Go to Snapshot for study details. Encounter for examination fo r normal comparison and control in clinical research program 11/08/2018 12/10/2021 Overview: DO NOT DELETE - [facility] Study: Project # [id number], Pattern Weaver: Kevin Pearce, MS, MPH. SUMMARY: Goal: Establish [...] contact study staff at ; after hours Pattern Weaver via the [facility] transfer station operator . - Please contact study team before resolving/deleting from patients problem list. Study phone number: [phone]. Diagnosis changed due to Research Module. Go [...] - 05/25/2023 2:10 PM EST Tatyana Delaney [facility] ДМИТРИЙCM will obtain blood work during Fridays . Gayahtri Malagon sponsorship managerMattress Weaver [facility] * Telephone Encounter - Angelika Heredia RN - 05/25/2023 1:24 PM EST Called patient. She states that Dr Gooden office had called her and she is scheduled for repeat labs already tomorrow 05/26/23 (appt noted in patients chart). She states that sometimes when she goes to [facility], they don't have a good wheelchair so she can't get into the building. She spoke to [facility] and they were going to check [...] would need to try to go to [facility] lab? - reviewed recommendations in other encounter- [...] Description 05/31/2023 1:30 PM EST Imaging Radiology [address] [facility] [place] [address] 06/06/2023 2:40 PM EST Pharmacy Pharmacy, [place] [address] [place] [address] [facility] [address] [place] [address] 06/07/2023 1:20 PM EST Office Visit Sleep Disorders Ctr [facility] [address] [facility] [place] [phone] Vira Byrd, [address] [facility] [place] [address] 07/27/2023 3:00 PM EDT Office Visit Cardiology, [facility] [address] [place] [address] Wood Wong PA-C [address] [place] [address] 08/01/2023 2:00 PM EDT Laboratory Laboratory, [facility] [address] [place] [place] [address] [facility] [address] [place] [address] 08/02/2023 2:00 PM EDT Office Visit Rheumatology [facility] [address] [facility] [place] [address] Eliot Castelan CRNP [address] [facility] [place] [address] 08/08/2023 12:30 PM EDT Office Visit Hematology/Oncology [facility] [address] [facility] [place] [address] Miguel A Alcantar MD [address] [facility] [place] [address] 08/18/2023 1:30 PM EDT Office Visit Nephrology, [facility] [address] [place] [address] ZeAna sanchez PA-C 200 [facility] [place] [address] 10/11/2023 5:40 PM EDT Office Visit [facility], [facility] [address] [facility] [address] David Umanzor MD [address] [place] [facility] [place] [address] 03/07/2024 1:00 PM EST Office Visit Cardiology, [facility] [address] [place] [address] Manolo Millan MD [address] [facility] [place] [address] Scheduled Procedures Name Priority Associated [...] Additional history exists CKD PHOS USE SMARTSET 35020 12/02/202311/10, 08/06/2022, 08/21/2021, Additional history exists CKD HGB USE SMARTSET 07052 03/25/202403/25, 03/25/2023, 02/28/2023, Additional history exists TSH [...] this encounter Medical Devices Implanted Type Area Nursery Attendant Device Identifier Shelf Expiration Date Model / Serial / Lot Augmate Medical Embosphere Micrspheres Implanted:Qty: 2 on 11/02/2019 by Ish Grove MD at [facility] Right: Abdomen [employer] 05/11/2022 S220GH / S220GH / [id number] Syr Pf 2ml Embospheres 100-300 - [id number] Implanted:Qty: 1 on 11/14/2020 at [facility] [employer] [id number] 08/22/2023 S220GH / / [id number] Lead Novus Bipolar 52cm - [id number] - [id number] Implanted:Qty: 1 on 12/29/2021 by Fatoumata Roland DO at OR [facility] Left: Heart [employer] : [employer] 11/18/2023 5076-52 / [id number] / N/A Description:right atrium Lead Pace Select[employer] 3830-69 - [id number] - [id number] Implanted:Qty: 1 on 12/29/2021 by Fatoumata Roland DO at OR [facility] Left: Heart [employer] : [employer] 11/21/2023 [id number] / [id number] / Description:right ventricle septum Pacemaker [place] Xt Dr Hsu Wrls - [id number] - [id number] Implanted:Qty: 1 on 12/29/2021 by Fatoumata Roland DO at OR [facility] Left: Heart [employer] 05/25/2023 W1DR01 / [id number] / Envelope Antibacterial Tyrx - [id number] Implanted:Qty: 1 on 12/29/2021 by Fatoumata Roland DO at OR [facility] [employer] : [employer] [id number] 09/23/2022 CMR M6122 / / [id number] Stent Synergy Xd Mr 3.83n07da - [id number] Implanted:Qty: 1 on 03/22/2022 by Katalina Pearce MD at [facility] [employer] [id number] 07/17/2023 [id number] / / [id number] Valve Berhane 3 Ultra 26mm - [id number] Implanted:Qty: 1 on 12/09/2022 by Manolo Millan MD at [facility] [employer] [id number] 12/04/2023 [id number] / / documented as of this encounter [...] the patient have Health Care Power of Reel Operator? No Care Teams Supervisor Pipeline Relationship Specialty Start Date End Date David Umanzor MD [address] [place] [address] PCP - General 02/25/09 documented as of this encounter
--- OUTSIDE RECORDS SUMMARY | 2023-05-28 21:21 | External Medical Summary ---
Author Name Unknown Address Unknown Organization K01:[facility] [place] [address] [facility] [facility] [address] [facility] [address] Laboratory Report Ordering Provider Test Date Status KHALIF LINDSEY 05/26/2023 11:26:48 Final Observation Date Value Abnormality Reference (Units ) Status BUN 05/26/2023 11:26:48 64 Above high normal 6-20 (mg/dL) Final Creatinine 05/26/2023 11:26:48 1.8 Above high normal 0.5-1.0 (mg/dL) Final Glomerular filtration rate/1.73 sq M.predicted [Volume Rate/Area] in Serum, Plasma or Blood by Creatinine-based formula (CKD-EPI) 05/26/2023 11:26:48 29 Below low normal >=60 (mL/min) Final eGFR is calculated based on the CKD-EPI 2020 equation SODIUM 05/26/2023 11:26:48 134 Below low normal 135 -146 (mmol/L) Final Potassium 05/26/2023 11:26:48 5.4 Above high normal 3. 5-5.1 (mmol/L) Final Cl 05/26/2023 11:26:48 99 98-107 (mm ol/L) Final CO2 05/26/2023 11:26:48 21 Below low normal 22- 32 (mmol/L) Final Anion gap 05/26/2023 11:26:48 14 7-15 (mmol /L) Final Glucose 05/26/2023 11:26:48 187 Above high normal 70 -120 (mg/dL) Final Calcium 05/26/2023 11:26:48 8.9 8.4-10.2 ( mg/dL) Final Performing Location [facility] [place] [facility] [place] [address] [facility] [address]
--- OUTSIDE RECORDS SUMMARY | 2023-05-28 21:22 | External Medical Summary | Summary of Care ---
Author Name Unknown Organization [facility] [address] [address] Phone [phone] Care Team Providers Care Shovel Log Loader Operator Name Role Phone David Umanzor MD Primary Care Provider [phone]- [phone] Reason for Visit * Reason Onset Date Comments [facility]: Acute 05/25/2023 Encounter Details Date Type Department Care Team (Late st Contact Info) Description 05/25/2023 Telephone [facility], [facility] 132 [facility] [place] [address] [facility], Nurse [facility] 132 [place] [address] [facility]: Acute Allergies Active Allergy [...] 1 2 Active Blood Glucose Monitoring Suppl (Javelin AUTOCODE BLOOD GLUCOSE) w/Device KITIndications:DM type 2 causing neurological disease, not at goal ([facility]) Test blood sugar 4 times daily Dx: E11.9 1 Kit 0 9 Active PRODIGY LANCETS 28G MISCIndications:DM type 2, not at goal ([facility]) TEST BLOOD SUAGER 4 TIMES [...] hemoglobin A1c goal of less than 7.0% ([facility]),Type 2 diabetes mellitus with stage 3 chronic kidney disease, with long-term current use of insulin, unspecified whether stage 3a or 3b CKD ([facility]),DM type 2 causing neurological disease, not at goal ([facility]) TEST BLOOD SUGAR UP TO FOUR TIMES DAILY 400 Strip 3 2 Active Fluticasone Propionate 50 MCG/ACT Nasal Suspension (Flonase)Indications:Shroudman sanket rhinitis ADMINISTER 2 SPRAYS IN EACH [...] coma, without long-term current use of insulin ([facility]) Use to inject insulin 4 times daily 400 Each 3 3 Active Creon 98491-69724 UNIT Oral Capsule Delayed Release Particles (Pancrelipase (Xjl-Sxlf-Ywjp))Indicatio ns:Pancreatic insufficiency TAKE ONE CAPSULE BY MOUTH [...] coma, without long-term current use of insulin ([facility]) Inject 10 units with breakfast, 4 units with lunch, and 10 units with PM meal. Inject 4 units if BG is >200. 30 mL 5 3 Active Acetaminophen 500 MG Oral TabletIndications:HFrEF (heart failure with reduced ejection fraction) ([facility]),Coronary artery disease involving wy[place] coronary artery of wy[place] heart without angina pectoris,Nonrheumatic aortic valve stenosis,Cardiac [...] ANXIETY 40 Tablet 1 4 Active Nystatin 780400 UNIT/GM External Powder (Nyamyc) APPLY TO AFFECTED [...] HYDROcodone-Acetaminophen 5-325 MG Oral TabletIndications:Atheros clerosis of [place] artery of left lower extremity with intermittent [...] to excess calories 0 08/09/2022 Atherosclerosis of [place] ar jania of left lower extremity with intermittent claudication 08/09/2022 Coronary artery disease invo lving wy[place] coronary artery of wy[place] heart with angina pectoris 03/22/2022 Last Assessment [...] 12/21/2016 Overview: Diabetic retinopathy Rheumatoid arthritis of [facility] sites without rheumatoid factor 01/26/2016 Last [...] program 11/08/2018 11/12/2019 Overview: DO NOT DELETE [facility] DETECT Study: Project # [id number], Traction Power Engineer: Manny Santacurz, PhD. SUMMARY: Goal: Establish test characteristics (sensitivity, [...] contact study staff at ; after hours Traction Power Engineer via the [facility] hospital floor press operator . Please contact study team before resolving/deleting from patients problem list. Study phone number: [phone]. Diagnosis changed due to Research Module. Go to Snapshot for study details. Encounter for examination fo r normal comparison and control in clinical research program 11/08/2018 12/10/2021 Overview: DO NOT DELETE - [facility] Study: Project # [id number], Traction Power Engineer: Kevin Pearce, MS, MPH. SUMMARY: Goal: Establish [...] contact study staff at ; after hours Traction Power Engineer via the [facility] hospital floor press operator . - Please contact study team before resolving/deleting from patients problem list. Study phone number: [phone]. Diagnosis changed due to Research Module. Go [...] encounter Miscellaneous Notes * Telephone Encounter - Luigi Jeff MD [...] diet and fluid restriction. Encouraged to call [facility] with any concerns * Telephone Encounter - Gayathri Malagon RN - 05/25/2023 2:03 PM EST Called patient, no answer, left message to return call to [facility] for recommendations from Dr. Jeff. Also wanted to let patient know Tatyana BARNETT will obtain her ordered blood work during Fridays . Gayathri Malagon data support specialistFountain Supervisor [facility] * Telephone Encounter - Luigi Jeff MD [...] from the original note were not included. [facility] track maintainer Acute Call Date: 05/25/2023 Time: 11:20 AM Name: Orquidea Valencia : 1950 Caller: Orquidea Relationship to : self HPI: Orquidea Valencia is a 73 year old female that is calling [facility] Intake to report on a [facility] nurse called her because her weight was [...] Appointment scheduled for same day: TBD Await [facility] recommendations Follow up phone call tomorrow Gayathri Malagon data support specialistFountain Supervisor [facility] documented in this encounter Plan of Treatment Upcoming Encounters Date Type Department Care Team (Late st Contact Info) Description 05/26/2023 2:00 PM EST Laboratory Laboratory, [place] [address] [place] [facility] [place] [address] [facility] [address] [place] [address] 05/27/2023 10:00 AM EST Home Visit isinger at [facility] 132 [facility] [place] [address] Tatyana Delaney RN 132 [facility] [place] [address] 05/31/2023 1:30 PM EST Imaging Radiology [address] 132 [facility] [place] [address] 06/06/2023 2:40 PM EST Pharmacy Pharmacy, [place] [address] [place] [facility] [place] [address] [facility] [address] [facility] [place] [address] 06/07/2023 1:20 PM EST Office Visit Sleep Disorders Ctr [facility] 132 [facility] [place] [phone] Vira Byrd DO 132 [facility] [place] [address] 07/27/2023 3:00 PM EDT Office Visit Cardiology, [facility] [address] [place] [address] Wood Wong PA-C [address] [place] [address] 08/01/2023 2:00 PM EDT Laboratory Laboratory, [place] [address] [place] [address] [facility] [address] [place] [address] 08/02/2023 2:00 PM EDT Office Visit Rheumatology [address] [place] [address] Eliot Castelan CRNP [address] [place] [address] [place] [address] 08/08/2023 12:30 PM EDT Office Visit Hematology/Oncology [facility] [address] [facility] [place] [address] Miguel A Alcantar MD [address] [facility] [place] [address] 08/18/2023 1:30 PM EDT Office Visit Nephrology, [facility] [place] [address] Ana Lin PA-C [address] [facility] [place] [address] 10/11/2023 5:40 PM EDT Office Visit Family Practice, [place] [address] [facility] [address] David Umanzor MD [address] [place] [facility] [place] [address] 03/07/2024 1:00 PM EST Office Visit Cardiology, [facility] [address] [place] [address] Manolo Millan MD [address] [place] [address] Scheduled Procedures Name Priority Associated Diagnoses [...] Additional history exists CKD PHOS USE SMARTSET 99943 12/02/202311/10, 08/06/2022, 08/21/2021, Additional history exists CKD HGB USE SMARTSET 20158 03/25/202403/25, 03/25/2023, 02/28/2023, Additional history exists TSH [...] this encounter Medical Devices Implanted Type Area Community Recreation Coordinator Device Identifier Shelf Expiration Date Model / Serial / Lot [facility] Medical Embosphere Micrspheres Implanted:Qty: 2 on 11/02/2019 by Ish Grove MD at [facility] Right: Abdomen [employer] 05/11/2022 S220GH / [id number] / [id number] Syr Pf 2ml Embospheres 100-300 - [id number] Implanted:Qty: 1 on 11/14/2020 at [facility] [employer] [id number] 08/22/2023 S220GH / / [id number] Envelope Antibacterial Tyrx - [id number] Implanted:Qty: 1 on 12/29/2021 by Fatoumata Roland DO at [place] [facility] [employer] : CRM [id number] 09/23/2022 CMR [id number] / / [id number] Stent Synergy Xd Mr 3.24b47an - [id number] Implanted:Qty: 1 on 03/22/2022 by Katalina Pearce MD at [facility] [employer] [id number] 07/17/2023 [id number] / / [id number] Valve Berhane 3 Ultra 26mm - [id number] Implanted:Qty: 1 on 12/09/2022 by Manolo Millan MD at [facility] [employer] [id number] 12/04/2023 [id number] / / documented as of this encounter [...] the patient have Health Care Power of Billet Header? No Care Teams Shovel Log Loader Operator Relationship Specialty Start Date End Date David Umanzor MD [address] [place] [address] PCP - General 02/25/09 documented as of this encounter
--- OUTSIDE RECORDS SUMMARY | 2023-05-28 21:22 | External Medical Summary | Summary of Care ---
Author Name Unknown Organization [facility] Address [address] [facility] [address] Phone [phone] Care Team Providers Care Accounts Payable Or Receivable Clerk Name Role Phone David Umanzor MD Primary Care Provider [phone]- [phone] Reason for Visit * Reason Onset Date Comments [facility]: Acute 05/25/2023 Encounter Details Date Type Department Care Team (Late st Contact Info) Description 05/25/2023 Telephone [facility], [facility] 132 [facility] [place] [address] [facility], Nurse [facility] 132 [facility] [place] [address] [facility]: Acute Allergies Active Allergy [...] 1 2 Active Blood Glucose Monitoring Suppl (ZeroMail AUTOCODE BLOOD GLUCOSE) w/Device KITIndications:DM type 2 causing neurological disease, not at goal ([facility]) Test blood sugar 4 times daily Dx: E11.9 1 Kit 0 9 Active PRODIGY LANCETS 28G MISCIndications:DM type 2, not at goal ([facility]) TEST BLOOD SUAGER 4 TIMES A DAY [...] hemoglobin A1c goal of less than 7.0% ([facility]),Type 2 diabetes mellitus with stage 3 chronic kidney disease, with long-term current use of insulin, unspecified whether stage 3a or 3b CKD ([facility]),DM type 2 causing neurological disease, not at goal ([facility]) TEST BLOOD SUGAR UP TO FOUR TIMES DAILY 400 Strip 3 2 Active Fluticasone Propionate 50 MCG/ACT Nasal Suspension (Flonase)Indications:Personnel Counselor sanket rhinitis ADMINISTER 2 SPRAYS IN EACH [...] coma, without long-term current use of insulin ([facility]) Use to inject insulin 4 times daily 400 Each 3 3 Active Creon 04977-35830 UNIT Oral Capsule Delayed Release Particles (Pancrelipase (Sbw-Cefb-Lkjk))Indicatio ns:Pancreatic insufficiency TAKE ONE CAPSULE BY MOUTH [...] coma, without long-term current use of insulin ([facility]) Inject 10 units with breakfast, 4 units with lunch, and 10 units with PM meal. Inject 4 units if BG is >200. 30 mL 5 3 Active Acetaminophen 500 MG Oral TabletIndications:HFrEF (heart failure with reduced ejection fraction) ([facility]),Coronary artery disease involving wrang[place] coronary artery of wrangell heart without angina pectoris,Nonrheumatic aortic valve stenosis,Cardiac [...] ANXIETY 40 Tablet 1 4 Active Nystatin 468349 UNIT/GM External Powder (Nyamyc) APPLY TO AFFECTED [...] HYDROcodone-Acetaminophen 5-325 MG Oral TabletIndications:Atheros clerosis of wr[place] artery of left lower extremity with intermittent [...] to excess calories 0 08/09/2022 Atherosclerosis of wr[place] ar jania of left lower extremity with intermittent claudication 08/09/2022 Coronary artery disease invo lving wrangell coronary artery of wrangell heart with angina pectoris 03/22/2022 Last Assessment [...] 12/21/2016 Overview: Diabetic retinopathy Rheumatoid arthritis of [facility] sites without rheumatoid factor 01/26/2016 [...] DELETE [facility] DETECT Study: Project # [id number], [employer] Repairer: Manny Santacruz, PhD. SUMMARY: Goal: Establish test [...] contact study staff at ; after hours [employer] Repairer via the [facility] hospital powder press operator . Please contact study team before resolving/deleting from patients problem list. Study phone number: [phone]. Diagnosis changed due to Research Module. Go to Snapshot for study details. Encounter for examination fo r normal comparison and control in clinical research program 11/08/2018 12/10/2021 Overview: DO NOT DELETE - [facility] Study: Project # [id number], [employer] Repairer: Kevin Pearce, MS, MPH. SUMMARY: Goal: Establish [...] contact study staff at ; after hours [employer] Repairer via the [facility] hospital powder press operator . - Please contact study team before resolving/deleting from patients problem list. Study phone number: [phone]. Diagnosis changed due to Research Module. Go [...] too tight and she wouldnot tolerate them. RN has a HV 3 x a [...] scheduled for a HV on Tuesday with [facility] ANIBAL/ Tatyana Delaney. Gayathri Malagon RN Cutting Machine Tender Decorative [facility] * Telephone Encounter - Luigi Jeff [...] diet and fluid restriction. Encouraged to call [facility] with any concerns * Telephone Encounter - Gayathri Malagon RN - 05/25/2023 2:03 PM EST Called patient, no answer, left message to return call to [facility] for recommendations from Dr. Jeff. Also wanted to let patient know Tatyana CHOE will obtain her ordered blood work during Fridays . Gayathri Malagon RN Cutting Machine Tender Decorative [facility] * Telephone Encounter - Luigi Jeff [...] from the original note were not included. [facility] meat team lead Acute Call Date: 05/25/2023 Time: 11:20 AM Name: Orquidea Valencia : 1950 Caller: Orquidea Relationship to : self HPI: Orquidea Valencia is a 73 year old female that is calling [employer] at Home Intake to report on a [facility] nurse called her because her weight [...] Appointment scheduled for same day: TBD Await [facility] recommendations Follow up phone call tomorrow Gayathri Malagon RN Cutting Machine Tender Decorative [facility] documented in this encounter Plan of Treatment Upcoming Encounters Date Type Department Care Team (Late st Contact Info) Description 05/26/2023 2:00 PM EST Laboratory [facility], [place] [address] [facility] [phone] [place] [address] [facility] [address] 05/27/2023 10:00 AM EST Home Visit [facility] 132 [facility] [place] [address] Tatyana Delaney RN 132 [facility] [place] [address] 05/31/2023 1:30 PM EST Imaging Radiology [facility]st [facility] [address] [place] [address] 06/06/2023 2:40 PM EST Pharmacy Pharmacy, [place] [address] [place] [address] [facility] [address] [place] [address] 06/07/2023 1:20 PM EST Office Visit Sleep Disorders Ctr [facility] [place] [phone] Vira Byrd, [address] [place] [address] 07/27/2023 3:00 PM EDT Office Visit Cardiology, [facility] [place] [address] Wood Wong PAGina [facility] [place] [address] 08/01/2023 2:00 PM EDT Laboratory Laboratory, [place] [address] [facility] [place] [address] [facility] [address] [place] [address] 08/02/2023 2:00 PM EDT Office Visit Rheumatology [place] [address] [facility] [place], [place] [address] Eliot Castelan CRNP [facility] [place] [address] 08/08/2023 12:30 PM EDT Office Visit Hematology/Oncology [facility] 200 [place] [address] Miguel A Alcantar MD [address] [place] [address] 08/18/2023 1:30 PM EDT Office Visit Nephrology, [facility] 200 [place] [address] Ana Lin PA-C [address] [place] [address] 10/11/2023 5:40 PM EDT Office Visit Family [facility] [address] [place] [address] David Umanzor MD [address], [place] [address] 03/07/2024 1:00 PM EST Office Visit Cardiology, [facility] [address] [place] [address] Manolo Millan MD [address] [place] [address] Scheduled Procedures Name Priority Associated [...] Additional history exists CKD PHOS USE SMARTSET 35308 12/02/202311/10, 08/06/2022, 08/21/2021, Additional history exists CKD HGB USE SMARTSET 39781 03/25/202403/25, 03/25/2023, 02/28/2023, Additional history exists TSH [...] this encounter Medical Devices Implanted Type Area Auditor Supervisor Device Identifier Shelf Expiration Date Model / Serial / Lot Merit Medical Embosphere Micrspheres Implanted:Qty: 2 on 11/02/2019 by Ish Grove MD at [facility] Right: Abdomen [facility] [employer] 05/11/2022 S220GH / S220GH / [id number] Syr Pf 2ml Embospheres 100-300 - [id number] Implanted:Qty: 1 on 11/14/2020 at [facility] [employer] [id number] 08/22/2023 S220GH / / [id number] Envelope Antibacterial Tyrx - [id number] Implanted:Qty: 1 on 12/29/2021 by Fatoumata Roland DO at [place] [facility] [employer] : CRM [id number] 09/23/2022 CMR [id number] / / [id number] Stent Synergy Xd Mr 3.52i94zg - [id number] Implanted:Qty: 1 on 03/22/2022 by Katalina Pearce MD at [facility] [employer] [id number] 07/17/2023 [id number] / / [id number] Valve Berhane 3 Ultra 26mm - [id number] Implanted:Qty: 1 on 12/09/2022 by Manolo Millan MD at [facility] [employer] [id number] 12/04/2023 [id number] / / documented as of this encounter [...] the patient have Health Care Power of Striper? No Care Teams Accounts Payable Or Receivable Clerk Relationship Specialty Start Date End Date David Umanzor MD [address] [facility] [place] [address] PCP - General 02/25/09 documented as of this encounter
--- OUTSIDE RECORDS SUMMARY | 2023-05-28 21:22 | External Medical Summary | Summary of Care ---
Author Name Unknown Organization [facility] Address [address] [address] Phone [phone] Care Team Providers Care Materials Management Clerk Name Role Phone David Umanzor MD Primary Care Provider [phone]- [phone] Reason for Visit * Reason Onset Date Comments [facility]: Acute 05/25/2023 Encounter Details Date Type Department Care Team (Late st Contact Info) Description 05/25/2023 Telephone [facility], [facility] [address] [facility] [place] [address] [facility], Nurse [facility] 132 [facility] [place] [address] [facility]: Acute Allergies Active Allergy [...] 1 2 Active Blood Glucose Monitoring Suppl ([employer] AUTOCODE BLOOD GLUCOSE) w/Device KITIndications:DM type 2 causing neurological disease, not at goal ([facility]) Test blood sugar 4 times daily Dx: E11.9 1 Kit 0 9 Active PRODIGY LANCETS 28G MISCIndications:DM type 2, not at goal ([facility]) TEST BLOOD SUAGER 4 TIMES [...] hemoglobin A1c goal of less than 7.0% ([facility]),Type 2 diabetes mellitus with stage 3 chronic kidney disease, with long-term current use of insulin, unspecified whether stage 3a or 3b CKD ([facility]),DM type 2 causing neurological disease, not at goal ([facility]) TEST BLOOD SUGAR UP TO FOUR TIMES DAILY 400 Strip 3 2 Active Fluticasone Propionate 50 MCG/ACT Nasal Suspension (Flonase)Indications:Court Of Appeals Judge sanket rhinitis ADMINISTER 2 SPRAYS IN EACH [...] coma, without long-term current use of insulin ([facility]) Use to inject insulin 4 times daily 400 Each 3 3 Active Creon 15713-56528 UNIT Oral Capsule Delayed Release Particles (Pancrelipase (Lpw-Uswp-Nvqk))Indicatio ns:Pancreatic insufficiency TAKE ONE CAPSULE BY MOUTH [...] coma, without long-term current use of insulin ([facility]) Inject 10 units with breakfast, 4 units with lunch, and 10 units with PM meal. Inject 4 units if BG is >200. 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 with intermittent [...] to excess calories 0 08/09/2022 Atherosclerosis of lime ar jania of left lower extremity with intermittent claudication 08/09/2022 Coronary artery disease invo lving lime coronary artery of lime heart with angina pectoris 03/22/2022 Last Assessment [...] 12/21/2016 Overview: Diabetic retinopathy Rheumatoid arthritis of [facility] sites without rheumatoid factor 01/26/2016 Last Assessment [...] program 11/08/2018 11/12/2019 Overview: DO NOT DELETE [facility] DETECT Study: Project # [id number], Manager Distribution: Manny Santacruz, PhD. SUMMARY: Goal: Establish test [...] contact study staff at ; after hours Manager Distribution via the [facility] hospital loom changeover operator . Please contact study team before resolving/deleting from patients problem list. Study phone number: [phone]. Diagnosis changed due to Research Module. Go to Snapshot for study details. Encounter for examination fo r normal comparison and control in clinical research program 11/08/2018 12/10/2021 Overview: DO NOT DELETE - [facility] Study: Project # [id number], Manager Distribution: Kevin Pearce, MS, MPH. SUMMARY: Goal: Establish [...] contact study staff at ; after hours Manager Distribution via the [facility] hospital loom changeover operator . - Please contact study team before resolving/deleting from patients problem list. Study phone number: [phone]. Diagnosis changed due to Research Module. Go [...] encounter Miscellaneous Notes * Telephone Encounter - France Frances LPN [...] diet and fluid restriction. Encouraged to call [facility] with any concerns * Telephone Encounter - Gayathri Malagon RN - 05/25/2023 2:03 PM EST Called patient, no answer, left message to return call to [facility] for recommendations from Dr. Jeff. Also wanted to let patient know Tatyana CHOECM will obtain her ordered blood work during Fridays . Gayathri Malagon RN Administrative Job Titles [facility] * Telephone Encounter - Luigi Jeff [...] note were not included. [facility] hop weigher Acute Call Date: 05/25/2023 Time: 11:20 AM Name: Orquidea Valencia : 1950 Caller: Orquidea Relationship to : self HPI: Orquidea Valencia is a 73 year old female that is calling [facility] Int[facility] to report on a [facility] nurse called her because her weight [...] Appointment scheduled for same day: TBD Await [facility] recommendations Follow up phone call tomorrow Gayathri Malagon public administration teacherAdministrative Job Titles [facility] documented in this encounter Plan of Treatment Upcoming Encounters Date Type Department Care Team (Late st Contact Info) Description 05/26/2023 2:00 PM EST Laboratory Laboratory, [place] [address] [place] [address] [facility] [address] [place] [address] 05/27/2023 10:00 AM EST [facility] [place] [address] Tatyana Delaney RN 132 [facility] [place] [address] 05/31/2023 1:30 PM EST Imaging Radiology [facility] 132 [facility] [place] [address] 06/06/2023 2:40 PM EST Pharmacy Pharmacy, [place] [address] [place] [address] [facility] [address] [place] [address] 06/07/2023 1:20 PM EST Office Visit Sleep Disorders Ctr [facility] 132 [facility] [place] [phone] Vira Byrd DO [address] [place] [address] 07/27/2023 3:00 PM EDT Office Visit Cardiology, [facility] [place] [address] Wood Wong PA-C 132 [facility] [place] [address] 08/01/2023 2:00 PM EDT Laboratory Laboratory, [place] [address] [place] [address] [facility] [address] [place] [address] 08/02/2023 2:00 PM EDT Office Visit Rheumatology [place] [address] [facility] [place] [address] Eliot Castelan CRNP [address] [facility] [place] [address] 08/08/2023 12:30 PM EDT Office Visit Hematology/Oncology [facility] 200 [facility] [place] [address] Miguel A Alcantar MD [address] [facility] [place] [address] 08/18/2023 1:30 PM EDT Office Visit Nephrology, [facility] [address] [facility] [place] [address] Ana Lin PA-C 200 [facility] [place] [address] 10/11/2023 5:40 PM EDT Office Visit Family Practice, [place] [address] [place] [address] David Umanzor MD [address] [place] [address] 03/07/2024 1:00 PM EST Office Visit Cardiology, [facility] 132 [place] [address] Manolo Millan MD [address] [place] [address] Scheduled Procedures Name Priority Associated Diagnoses Date/Ti [...] Additional history exists CKD PHOS USE SMARTSET 44330 12/02/202311/10, 08/06/2022, 08/21/2021, Additional history exists CKD HGB USE SMARTSET 37503 03/25/202403/25, 03/25/2023, 02/28/2023, Additional history exists TSH [...] this encounter Medical Devices Implanted Type Area Care Specialist Device Identifier Shelf Expiration Date Model / Serial / Lot Luxera Medical Embosphere Micrspheres Implanted:Qty: 2 on 11/02/2019 by Ish Grove MD at [facility] Right: Abdomen [employer] 05/11/2022 S220GH / [id number] / [id number] Syr Pf 2ml Embospheres 100-300 - [id number] Implanted:Qty: 1 on 11/14/2020 at [facility] [employer] [id number] 08/22/2023 S220GH / / [id number] Envelope Antibacterial Tyrx - [id number] Implanted:Qty: 1 on 12/29/2021 by Fatoumata Roland DO at [facility] [employer] : CRM [id number] 09/23/2022 CMR [id number] / / [id number] Stent Synergy Xd Mr 3.00y35re - [id number] Implanted:Qty: 1 on 03/22/2022 by Katalina Pearce MD at [facility] [employer] [id number] 07/17/2023 [id number] / / [id number] Valve Berhane 3 Ultra 26mm - [id number] Implanted:Qty: 1 on 12/09/2022 by Manolo Millan MD at [facility] [employer] [id number] 12/04/2023 [id number] / / documented as of this encounter [...] the patient have Health Care Power of Landscape Architecture Professor? No Care Teams Materials Management Clerk Relationship Specialty Start Date End Date David Umanzor MD [address] [place] [address] PCP - General 02/25/09 documented as of this encounter
--- OUTSIDE RECORDS SUMMARY | 2023-05-28 21:22 | External Medical Summary | Summary of Care ---
Author Name Unknown Organization [facility] Address [address] [facility] [place] [address] Phone [phone] Care Team Providers Care Exercise Physiology Professor Name Role Phone David Umanzor MD Primary Care Provider +1- [phone] Reason for Visit * Reason Onset Date Comments [facility]: Acute 05/25/2023 Encounter Details Date Type Department Care Team (Late st Contact Info) Description 05/25/2023 Telephone [facility], [facility] 132 [facility] [place] [address] [facility], Nurse [facility] 132 [place] [address] [facility]: Acute Allergies Active Allergy [...] 1 2 Active Blood Glucose Monitoring Suppl ([employer] AUTOCODE BLOOD GLUCOSE) w/Device KITIndications:DM type 2 [...] Active Fluticasone Propionate 50 MCG/ACT Nasal Suspension (Flonase)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: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 sanket 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 ADMINISTER 2 SPRAYS IN EACH [...] daily 400 Each 3 3 Active Creon 30968-11292 UNIT Oral Capsule Delayed Release Particles (Pancrelipase (Gac-Xzxy-Msrp))Indicatio ns:Pancreatic insufficiency TAKE ONE CAPSULE BY MOUTH [...] [facility] [place]),Coronary artery disease involving osage coronary artery of osage heart without angina pectoris,Nonrheumatic aortic valve stenosis,Cardiac [...] ANXIETY 40 Tablet 1 4 Active Nystatin 855710 UNIT/GM External Powder (Nyamyc) APPLY TO AFFECTED [...] HYDROcodone-Acetaminophen 5-325 MG Oral TabletIndications:Atheros clerosis of osage artery of left lower extremity with intermittent [...] to excess calories 0 08/09/2022 Atherosclerosis of osage ar jania of left lower extremity with intermittent claudication 08/09/2022 Coronary artery disease invo lving osage coronary artery of osage heart with angina pectoris 03/22/2022 Last Assessment [...] 12/21/2016 Overview: Diabetic retinopathy Rheumatoid arthritis of [facility] sites without rheumatoid factor 01/26/2016 Last Assessment [...] 11/08/2018 11/12/2019 Overview: DO NOT DELETE [facility] DETECT Study: Project # [id number], Real Estate Closing Coordinator: Manny Santacruz, PhD. SUMMARY: Goal: Establish test [...] contact study staff at ; after hours Real Estate Closing Coordinator via the [facility] hospital traveling crane operator . Please contact study team before resolving/deleting from patients problem list. Study phone number: [phone]. Diagnosis changed due to Research Module. Go to Snapshot for study details. Encounter for examination fo r normal comparison and control in clinical research program 11/08/2018 12/10/2021 Overview: DO NOT DELETE - [facility] Study: Project # [id number], Real Estate Closing Coordinator: Kevin Pearce, MS, MPH. SUMMARY: Goal: Establish [...] contact study staff at ; after hours Real Estate Closing Coordinator via the [facility] hospital traveling crane operator . - Please contact study team before resolving/deleting from patients problem list. Study phone number: [phone]. Diagnosis changed due to Research Module. Go [...] , size D in her home but HH RN thought they would be too tight [...] She has also been dizzy for weeks. * Telephone Encounter - Luigi Jeff MD [...] diet and fluid restriction. Encouraged to call [facility] with any concerns * Telephone Encounter - Gayathri Malagon RN - 05/25/2023 2:03 PM EST Called patient, no answer, left message to return call to [facility] for recommendations from Dr. Jeff. Also wanted to let patient know Tatyana RNCM will obtain her ordered blood work during Fridays . Gayathri Malagon gang pusherStock Preparation Operator [facility] * Telephone Encounter - Luigi Jeff [...] note were not included. [facility] truck loader overhead crane Acute Call Date: 05/25/2023 Time: 11:20 AM Name: Orquidea Valencia : 1950 Caller: Orquidea Relationship to : self HPI: Orquidea Valencia is a 73 year old female that is calling [facility] to report on a [facility] nurse called her because her weight [...] Appointment scheduled for same day: TBD Await [facility] recommendations Follow up phone call tomorrow Gayathri Malagon RN Stock Preparation Operator [facility] documented in this encounter Plan of Treatment Upcoming Encounters Date Type Department Care Team (Late st Contact Info) Description 05/26/2023 2:00 PM EST Laboratory Laboratory, [place] [address] [place] [address] [place], [place] [address] [place] [address] 05/27/2023 10:00 AM EST Home Visit [facility] [address] [facility] [place] [address] Tatyana Delaney RN 132 [facility] [place] [address] 05/31/2023 1:30 PM EST Imaging Radiology [facility] 1st [facility] [place] [address] 06/06/2023 2:40 PM EST Pharmacy Pharmacy, [place] [address] [facility] [address] [facility] [address] [place] [address] 06/07/2023 1:20 PM EST Office Visit Sleep Disorders Ctr [facility] [place] [phone] Vira Byrd DO [address] [place] [address] 07/27/2023 3:00 PM EDT Office Visit Cardiology, [facility] 132 [facility] [place] [address] Wood Wong PA-C [address] [facility] [address] 08/01/2023 2:00 PM EDT Laboratory Laboratory, [place] [address] [facility] [phone] [facility] [address] [place] [address] 08/02/2023 2:00 PM EDT Office Visit Rheumatology [facility] [address] [facility] [place] [address] Eliot Castelan CRNP [address] [facility] [place] [address] 08/08/2023 12:30 PM EDT Office Visit Hematology/Oncology [facility] [place] [address] [facility] [place] [address] Miguel A Alcantar MD 200 [facility] [place] [address] 08/18/2023 1:30 PM EDT Office Visit [facility]rology, [facility] [place] 200 [facility] [place] [address] Ana Lin PA-C 200 [facility] [place] [address] 10/11/2023 5:40 PM EDT Office Visit Family [facility] [address] [place] [address] David Umanzor MD [address] [place] [address] 03/07/2024 1:00 PM EST Office Visit Cardiology, [facility] 132 [facility] [place] [id number] Manolo Millan MD [address] [place], [place] [address] Scheduled Procedures Name Priority Associated Diagnoses Date/Ti [...] Additional history exists CKD PHOS USE SMARTSET 62851 12/02/202311/10, 08/06/2022, 08/21/2021, Additional history exists CKD HGB USE SMARTSET 22745 03/25/202403/25, 03/25/2023, 02/28/2023, Additional history exists TSH [...] this encounter Medical Devices Implanted Type Area Audit Officer Device Identifier Shelf Expiration Date Model / Serial / Lot Merit Medical Embosphere Micrspheres Implanted:Qty: 2 on 11/02/2019 by Ish Grove MD at [facility] Right: Abdomen [employer] 05/11/2022 S220GH / S220GH / [id number] Syr Pf 2ml Embospheres 100-300 - [id number] Implanted:Qty: 1 on 11/14/2020 at [facility] [employer] [id number] 08/22/2023 S220GH / / [id number] Envelope Antibacterial Tyrx - [id number] Implanted:Qty: 1 on 12/29/2021 by Fatoumata Roland DO at [facility] [employer] : CRM [id number] 09/23/2022 CMR M6122 / / [id number] Stent Synergy Xd Mr 3.04x69ir - [id number] Implanted:Qty: 1 on 03/22/2022 by Katalina Pearce MD at [facility] [employer] [id number] 07/17/2023 [id number] / / [id number] Valve Berhane 3 Ultra 26mm - [id number] Implanted:Qty: 1 on 12/09/2022 by Manolo Millan MD at [facility] [employer] [id number] 12/04/2023 [id number] / / documented as of this encounter [...] the patient have Health Care Power of Manager Talent Management? No Care Teams Exercise Physiology Professor Relationship Specialty Start Date End Date David Umanzor MD [address] [place] [address] PCP - General 02/25/09 documented as of this encounter
--- OUTSIDE RECORDS SUMMARY | 2023-05-28 21:22 | External Medical Summary | Summary of Care ---
Author Name Unknown Organization [facility] [address] [place] [address] Phone [phone] Care Team Providers Care Film Casting Operator Name Role Phone David Umanzor MD Primary Care Provider [phone]- [phone] Reason for Visit * Reason Onset Date Comments [facility]: Acute 05/25/2023 Encounter Details Date Type Department Care Team (Late st Contact Info) Description 05/25/2023 Telephone [facility], [facility] 132 [facility] [place] [address] [facility], Nurse [facility] 132 [place] [address] [facility]: Acute Allergies Active Allergy [...] 1 2 Active Blood Glucose Monitoring Suppl ([employer] AUTOCODE BLOOD GLUCOSE) w/Device KITIndications:DM type 2 causing neurological disease, not at goal ([facility]) Test blood sugar 4 times daily Dx: E11.9 1 Kit 0 9 Active PRODIGY LANCETS 28G MISCIndications:DM type 2, not at goal ([facility]) TEST BLOOD SUAGER 4 TIMES A [...] hemoglobin A1c goal of less than 7.0% ([facility]),Type 2 diabetes mellitus with stage 3 chronic kidney disease, with long-term current use of insulin, unspecified whether stage 3a or 3b CKD ([facility]),DM type 2 causing neurological disease, not at goal ([facility]) TEST BLOOD SUGAR UP TO FOUR TIMES DAILY 400 Strip 3 2 Active Fluticasone Propionate 50 MCG/ACT Nasal Suspension (Flonase)Indications:Radio Electrician sanket 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 Inject 4 units if BG is >200. 30 mL 5 3 Active Acetaminophen 500 MG Oral TabletIndications:HFrEF (heart failure with reduced ejection fraction) ([facility]),Coronary artery disease involving samish coronary artery of samish heart without angina pectoris,Nonrheumatic aortic valve stenosis,Cardiac [...] ANXIETY 40 Tablet 1 4 Active Nystatin 908966 UNIT/GM External Powder (Nyamyc) APPLY TO AFFECTED [...] HYDROcodone-Acetaminophen 5-325 MG Oral TabletIndications:Atheros clerosis of samish artery of left lower extremity with intermittent [...] to excess calories 0 08/09/2022 Atherosclerosis of samish ar jania of left lower extremity with intermittent claudication 08/09/2022 Coronary artery disease invo lving samish coronary artery of samish heart with angina pectoris 03/22/2022 Last Assessment [...] program 11/08/2018 11/12/2019 Overview: DO NOT DELETE [facility] DETECT Study: Project # [id number], Lot Associate: Manny Santacruz, PhD. SUMMARY: Goal: Establish test [...] contact study staff at ; after hours Lot Associate via the [facility] hospital metalizing machine operator . Please contact study team before resolving/deleting from patients problem list. Study phone number: [phone]. Diagnosis changed due to Research Module. Go to Snapshot for study details. Encounter for examination fo r normal comparison and control in clinical research program 11/08/2018 12/10/2021 Overview: DO NOT DELETE - [facility] Study: Project # [id number], Lot Associate: Kevin Pearce, MS, MPH. SUMMARY: Goal: Establish [...] contact study staff at ; after hours Lot Associate via the [facility] hospital metalizing machine operator . - Please contact study team before resolving/deleting from patients problem list. Study phone number: [phone]. Diagnosis changed due to Research Module. Go [...] 05/25/2023 4:16 PM EST TT to Tatyana Delaney [facility] AN[facility]AL about patients weight gain and complaints, she will have Home visit tomorrow instead of Tuesday. Patient called and aware Tatyana will have Home visit tomorrow around 10 am. Patient very appreciative that HV is tomorrow. Gayathri Malagon RN Auctioneer Art [facility] * Telephone Encounter - Gayathri Malagon RN [...] scheduled for a HV on Tuesday with [facility] AN[facility]/ Tatyana Delaney. Gayathri Malagon meat selectorAuctioneer Art [facility] * Telephone Encounter - Luigi Jeff MD [...] diet and fluid restriction. Encouraged to call [facility] with any concerns * Telephone Encounter - Gayathri Malagon RN - 05/25/2023 2:03 PM EST Called patient, no answer, left message to return call to [facility] for recommendations from Dr. Jeff. Also wanted to let patient know Tatyana CHOECM will obtain her ordered blood work during Fridays . Gayathri Malagon RN Auctioneer Art [facility] * Telephone Encounter - Luigi Jeff MD [...] note were not included. [facility] quill machine operator Acute Call Date: 05/25/2023 Time: 11:20 AM Name: Orquidea Valencia : 1950 Caller: Orquidea Relationship to : self HPI: Orquidea Valencia is a 73 year old female that is calling [facility] Intake to report on a [facility] nurse called her because her weight was [...] Appointment scheduled for same day: TBD Await [facility] recommendations Follow up phone call tomorrow Gayathri Malagon meat selectorAuctioneer Art [facility] documented in this encounter Plan of Treatment Upcoming Encounters Date Type Department Care Team (Late st Contact Info) Description 05/26/2023 10:00 AM EST Home Visit [facility], [facility] [address] [place] [address] Tatyana Delaney RN 132 [facility] [place] [address] 05/26/2023 2:00 PM EST Laboratory Laboratory, [place] [address] [place] [address] [facility] [address] [place] [address] 05/31/2023 1:30 PM EST Imaging Radiology [facility] 1st [facility] 132 [facility] [place] [address] 06/06/2023 2:40 PM EST Pharmacy Pharmacy, [place] [address] [place] [address] [facility] [address] [place] [address] 06/07/2023 1:20 PM EST Office Visit Sleep Disorders Ctr [facility] 132 [facility] [place] [phone] Vira Byrd DO [address] [place] [address] 07/27/2023 3:00 PM EDT Office Visit Cardiology, [facility] [address] [place] [address] Wood Wong PA-C 132 [facility] [place] [address] 08/01/2023 2:00 PM EDT Laboratory Laboratory, [place] [address] [place] [phone] [facility] [address] [place] [address] 08/02/2023 2:00 PM EDT Office Visit Rheumatology [place] [address] [facility] [place] [address] Eliot Castelan CRNP [address] [facility] [place] [address] 08/08/2023 12:30 PM EDT Office Visit Hematology/Oncology [facility] 200 [facility] [place] [address] Miguel A Alcantar MD 200 [facility] [place] [address] 08/18/2023 1:30 PM EDT Office Visit Nephrology, [facility] 200 [facility] [place] [address] Ana Lin PA-C 200 [facility] [place] [address] 10/11/2023 5:40 PM EDT Office Visit Family Practice, [place] [address] [place] [address] David Umanzor MD [address] [place] [address] 03/07/2024 1:00 PM EST Office Visit Cardiology, [facility] 132 [facility] [place] [address] Manolo Millan MD [address] [place] [address] Scheduled Procedures Name Priority Associated Diagnoses Date/Ti [...] Additional history exists CKD PHOS USE SMARTSET 96872 12/02/202311/10, 08/06/2022, 08/21/2021, Additional history exists CKD HGB USE SMARTSET 77340 03/25/202403/25, 03/25/2023, 02/28/2023, Additional history exists TSH [...] this encounter Medical Devices Implanted Type Area Diet Supervisor Device Identifier Shelf Expiration Date Model / Serial / Lot [employer] Embosphere Micrspheres Implanted:Qty: 2 on 11/02/2019 by Ish Grove MD at [facility] Right: Abdomen [employer] 05/11/2022 S220GH / [id number] / [id number] Syr Pf 2ml Embospheres 100-300 - [id number] Implanted:Qty: 1 on 11/14/2020 at [facility] [employer] [id number] 08/22/2023 S220GH / / [id number] Envelope Antibacterial Tyrx - [id number] Implanted:Qty: 1 on 12/29/2021 by Fatoumata Roland DO at OR [facility] [employer] : CRM [id number] 09/23/2022 CMR [id number] / / [id number] Stent Synergy Xd Mr 3.58s91cq - [id number] Implanted:Qty: 1 on 03/22/2022 by Katalina Pearce MD at [facility] [employer] [id number] 07/17/2023 [id number] / / [id number] Valve Berhane 3 Ultra 26mm - [id number] Implanted:Qty: 1 on 12/09/2022 by Manolo Millan MD at [facility] [employer] [id number] 12/04/2023 [id number] / / documented as of this encounter [...] the patient have Health Care Power of Director Of Primary? No Care Teams Film Casting Operator Relationship Specialty Start Date End Date David Umanzor MD [address] [place] [address] PCP - General 02/25/09 documented as of this encounter
--- OUTSIDE RECORDS SUMMARY | 2023-05-28 21:22 | External Medical Summary | Summary of Care ---
Author Name Unknown Organization [facility] Address [address] [facility] [address] Phone [phone] Care Team Providers Care Scrap Shear Operator Name Role Phone David Umanzor MD Primary Care Provider +1- [phone] Reason for Visit * Reason Onset Date Comments [facility]: Acute 05/25/2023 Encounter Details Date Type Department Care Team (Late st Contact Info) Description 05/25/2023 Telephone [facility], [facility] 132 [facility] [place] [address] [facility], Nurse [facility] 132 [place] [address] [facility]: Acute Allergies Active Allergy [...] 1 2 Active Blood Glucose Monitoring Suppl ([employer] AUTOCODE BLOOD GLUCOSE) w/Device KITIndications:DM type 2 causing neurological disease, not at goal ([facility]) Test blood sugar 4 times daily Dx: E11.9 1 Kit 0 9 Active PRODIGY LANCETS 28G MISCIndications:DM type 2, not at goal ([facility]) TEST BLOOD SUAGER 4 TIMES A [...] goal of less than 7.0% ([facility]),Type 2 diabetes mellitus with stage 3 chronic kidney disease, with long-term current use of insulin, unspecified whether stage 3a or 3b CKD ([facility]),DM type 2 causing neurological disease, not at goal ([facility]) TEST BLOOD SUGAR UP TO FOUR TIMES DAILY 400 Strip 3 2 Active Fluticasone Propionate 50 MCG/ACT Nasal Suspension (Flonase)Indications:Intellectual Property Paralegal sanket rhinitis ADMINISTER 2 SPRAYS IN EACH [...] long-term current use of insulin ([facility]) Use to inject insulin 4 times daily 400 Each 3 3 Active Creon 59348-26010 UNIT Oral Capsule Delayed Release Particles (Pancrelipase (Ncp-Trqs-Imzf))Indicatio ns:Pancreatic insufficiency TAKE ONE CAPSULE BY MOUTH [...] long-term current use of insulin ([facility]) Inject 10 units with breakfast, 4 units with lunch, and 10 units with PM meal. Inject 4 units if BG is >200. 30 mL 5 3 Active Acetaminophen 500 MG Oral TabletIndications:HFrEF (heart failure with reduced ejection fraction) ([facility]),Coronary artery disease involving [place] coronary artery of [place] heart without angina pectoris,Nonrheumatic aortic valve stenosis,Cardiac [...] ANXIETY 40 Tablet 1 4 Active Nystatin 858733 UNIT/GM External Powder (Nyamyc) APPLY TO AFFECTED [...] HYDROcodone-Acetaminophen 5-325 MG Oral TabletIndications:Atheros clerosis of [place] artery of left lower extremity with intermittent [...] to excess calories 0 08/09/2022 Atherosclerosis of [place] ar jania of left lower extremity with intermittent claudication 08/09/2022 Coronary artery disease invo lving [place] coronary artery of [place] heart with angina pectoris 03/22/2022 Last Assessment [...] Overview: Diabetic retinopathy Rheumatoid arthritis of [facility] sites without rheumatoid factor 01/26/2016 [...] DELETE [facility] DETECT Study: Project # [id number], Blood Bank Technician: Manny Santacruz, PhD. SUMMARY: Goal: Establish test [...] contact study staff at ; after hours Blood Bank Technician via the [facility] hospital punch press operator helper . Please contact study team before resolving/deleting from patients problem list. Study phone number: [phone]. Diagnosis changed due to Research Module. Go to Snapshot for study details. Encounter for examination fo r normal comparison and control in clinical research program 11/08/2018 12/10/2021 Overview: DO NOT DELETE - [facility] Study: Project # [id number], Blood Bank Technician: Kevin Pearce, MS, MPH. SUMMARY: Goal: Establish [...] contact study staff at ; after hours Blood Bank Technician via the [facility] hospital punch press operator helper . - Please contact study team before resolving/deleting from patients problem list. Study phone number: [phone]. Diagnosis changed due to Research Module. Go [...] 4:16 PM EST TT to Tatyana Delaney [facility] ДМИТРИЙCM about patients weight gain and complaints, she will have Home visit tomorrow instead of Tuesday. Patient called and aware Tatyana will have Home visit tomorrow around 10 am. Patient very appreciative that HV is tomorrow. Gayathri Malagon RN Co Founder And Chairman [facility] * Telephone Encounter - Gayathri Malagon [...] scheduled for a HV on Tuesday with [facility]/ Tatyana Delaney. Gayathri Malagon RN Co Founder And Chairman [facility] * Telephone Encounter - [...] work during Fridays . Gayathri Malagon RN Co Founder And Chairman [facility] * Telephone Encounter - [...] from the original note were not included. 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 Acute Call Date: 05/25/2023 Time: 11:20 AM Name: Orquidea Valencia : 1950 Caller: Orquidea Relationship to : self HPI: Orquidea Valencia is a 73 year old female that is calling [facility] at [facility] Intake to report on a [...] Appointment scheduled for same day: TBD Await [facility] recommendations Follow up phone call tomorrow Gayathri Malagon lead pressmanCo Founder And Chairman [facility] documented in this encounter Plan of Treatment Upcoming Encounters Date Type Department Care Team (Late st Contact Info) Description 05/26/2023 10:00 AM EST [facility] Visit [facility], [facility] [place] [address] Tatyana Delaney, RN [address] [place] [address] 05/26/2023 2:00 PM EST Laboratory [facility], [place] [address] [facility] [phone] [place], [facility] [address] [facility] [place] [address] 05/31/2023 1:30 PM EST Imaging Radiology [facility] 1st [facility] 132 [facility] [place] [address] 06/06/2023 2:40 PM EST Pharmacy Pharmacy, [place] [address] [facility] [place] [address] [facility] [address] [facility] [place] [address] 06/07/2023 1:20 PM EST Office Visit Sleep Disorders Ctr [facility] 132 [facility] [place] [phone] Vira Byrd DO 132 [facility] [place] [address] 07/27/2023 3:00 PM EDT Office Visit Cardiology, [facility] 132 [facility] [place] [address] Wood Wong PA-C [facility] [place] [address] 08/01/2023 2:00 PM EDT Laboratory Laboratory, [place] [address] [facility] [phone] [facility] [address] [place] [address] 08/02/2023 2:00 PM EDT Office Visit Rheumatology [facility] [address] [facility] [place] [address] Eliot Castelan CRNP [address] [facility] [place] [address] 08/08/2023 12:30 PM EDT Office Visit Hematology/Oncology [facility] [place] [address] Miguel A Alcantar MD [address] [facility] [place] [address] 08/18/2023 1:30 PM EDT Office Visit Nephrology, [facility] [address] [facility] [place] [address] Ana Lin PA-C [address] [facility] [place] [address] 10/11/2023 5:40 PM EDT Office Visit Family [facility] [address] [place] [address] David Umanzor MD [address] [place] [address] 03/07/2024 1:00 PM EST Office Visit Cardiology, [facility] [address] [place] [address] Manolo Millan MD [address] [place] [address] Scheduled Procedures Name Priority Associated [...] Additional history exists CKD PHOS USE SMARTSET 16828 12/02/202311/10, 08/06/2022, 08/21/2021, Additional history exists CKD HGB USE SMARTSET 09524 03/25/202403/25, 03/25/2023, 02/28/2023, Additional history exists TSH [...] this encounter Medical Devices Implanted Type Area Product/Device Technologist Device Identifier Shelf Expiration Date Model / Serial / Lot [place] Embosphere Micrspheres Implanted:Qty: 2 on 11/02/2019 by Ish Grove MD at [facility] Right: Abdomen [employer] 05/11/2022 S220GH / S220GH / [id number] Syr Pf 2ml Embospheres 100-300 - [id number] Implanted:Qty: 1 on 11/14/2020 at [facility] [employer] [id number] 08/22/2023 S220GH / / [id number] Envelope Antibacterial Tyrx - [id number] Implanted:Qty: 1 on 12/29/2021 by Fatoumata Roland DO at OR [facility] [employer] : CRM [id number] 09/23/2022 CMR M6122 / / [id number] Stent Synergy Xd Mr 3.10h11wx - [id number] Implanted:Qty: 1 on 03/22/2022 by Katalina Pearce MD at [facility] [employer] [id number] 07/17/2023 [id number] / / [id number] Valve Berhane 3 Ultra 26mm - [id number] Implanted:Qty: 1 on 12/09/2022 by Manolo Millan MD at [facility] [employer] [id number] 12/04/2023 [id number] / / documented as of this encounter [...] the patient have Health Care Power of Grants Specialist? No Care Teams Scrap Shear Operator Relationship Specialty Start Date End Date David Umanzor MD [address] [place] [address] PCP - General 02/25/09 documented as of this encounter
--- OUTSIDE RECORDS SUMMARY | 2023-05-28 21:23 | External Medical Summary | Summary of Care ---
Author Name Unknown Organization [facility] Address [address] [facility] [facility] [address] Phone [phone] Care Team Providers Care Member Of The Legislative Assembly Name Role Phone David Umanzor MD Primary Care Provider [phone]- [phone] Reason for Visit * Reason Onset Date Comments [facility]: Acute 05/25/2023 Encounter Details Date Type Department Care Team (Late st Contact Info) Description 05/25/2023 Telephone [facility], [facility] 132 [facility] [place] [address] [facility], Nurse [facility] 132 [place] [address] [facility]: Acute Allergies Active Allergy [...] 1 2 Active Blood Glucose Monitoring Suppl (Kudarom AUTOCODE BLOOD GLUCOSE) w/Device KITIndications:DM type 2 [...] Active Fluticasone Propionate 50 MCG/ACT Nasal Suspension (Flonase)Indications:Starch Dumper sanket rhinitis ADMINISTER 2 SPRAYS IN EACH [...] daily 400 Each 3 3 Active Creon 81380-49446 UNIT Oral Capsule Delayed Release Particles (Pancrelipase (Ujb-Yutl-Npst))Indicatio ns:Pancreatic insufficiency TAKE ONE CAPSULE BY MOUTH [...] [facility]),Coronary artery disease involving [place] coronary artery of [place] heart without angina pectoris,Nonrheumatic aortic valve stenosis,Cardiac [...] ANXIETY 40 Tablet 1 4 Active Nystatin 425229 UNIT/GM External Powder (Nyamyc) APPLY TO AFFECTED [...] HYDROcodone-Acetaminophen 5-325 MG Oral TabletIndications:Atheros clerosis of [place] artery of left lower extremity with intermittent [...] to excess calories 0 08/09/2022 Atherosclerosis of [place] ar jania of left lower extremity with intermittent claudication 08/09/2022 Coronary artery disease invo lving [place] coronary artery of [place] heart with angina pectoris 03/22/2022 Last Assessment [...] 12/21/2016 Overview: Diabetic retinopathy Rheumatoid arthritis of [facility] sites without rheumatoid factor [...] [facility] DETECT Study: Project # [id number], Efficiency Clerk: Manny Santacruz, PhD. SUMMARY: Goal: Establish [...] contact study staff at ; after hours Efficiency Clerk via the [facility] hospital finish saw operator . Please contact study team before resolving/deleting from patients problem list. Study phone number: [phone]. Diagnosis changed due to Research Module. Go to Snapshot for study details. Encounter for examination fo r normal comparison and control in clinical research program 11/08/2018 12/10/2021 Overview: DO NOT DELETE - [facility] Study: Project # [id number], Efficiency Clerk: Kevin Pearce, MS, MPH. SUMMARY: Goal: [...] contact study staff at ; after hours Efficiency Clerk via the [facility] hospital finish saw operator . - Please contact study team before resolving/deleting from patients problem list. Study phone number: [phone]. Diagnosis changed due to Research Module. Go [...] from the original note were not included. 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 Acute Call Date: 05/25/2023 Time: 11:20 AM Name: Orquidea Valencia : 1950 Caller: Orquidea Relationship to : self HPI: Orquidea Valencia is a 73 year old female that is calling [employer] [facility] Intake to report on a [facility] nurse called her because her weight [...] Appointment scheduled for same day: TBD Await [facility] recommendations Follow up phone call tomorrow Gayathri Malagon finish saw operatorParallel Computing Software Engineer [facility] documented in this encounter Plan of Treatment Upcoming Encounters Date Type Department Care Team (Late st Contact Info) Description 05/26/2023 2:00 PM EST Laboratory Laboratory, [place] [address] [place] [address] [place] [address] [place] [address] 05/27/2023 10:00 AM EST Home Visit [facility] [address] [place] [address] Tatyana Delaney RN 132 [place] [address] 05/31/2023 1:30 PM EST Imaging Radiology [address] 132 [place] [address] 06/06/2023 2:40 PM EST Pharmacy Pharmacy, [place] [address] [place] [address] [place] [facility] [address] [place] [address] 06/07/2023 1:20 PM EST Office Visit [facility] Disorders Ctr [facility] [address] [facility] [place] [address] Vira Byrd DO [address] [facility] [place] [address] 07/27/2023 3:00 PM EDT Office Visit Cardiology, [facility] [address] [facility] [place] [address] Wood Wong PA-C [address] [facility] [place] [address] 08/01/2023 2:00 PM EDT Laboratory Laboratory, [place] [address] [place] [phone] [facility] [address] [place] [address] 08/02/2023 2:00 PM EDT Office Visit Rheumatology [facility] [address] [facility] [place] [address] Eliot Castelan CRNP [address] [facility] [place] [address] 08/08/2023 12:30 PM EDT Office Visit [facility]ology[facility] [address] [place] [address] Miguel A Alcantar MD [address] [place] [address] 08/18/2023 1:30 PM EDT Office Visit Nephrology, [place] 200 [facility] [place], [place] [address] ZeAna sanchez PA-C [address] [place], [place] [address] 10/11/2023 5:40 PM EDT [facility] [address] [place] [address] David Umanzor MD [address] [place] [address] 03/07/2024 1:00 PM EST Office Visit Cardiology, [facility] [address] [place], [place] [address] Manolo Millan MD [address] [place] [address] Scheduled Procedures Name Priority Associated [...] Additional history exists CKD PHOS USE SMARTSET 83911 12/02/202311/10, 08/06/2022, 08/21/2021, Additional history exists CKD HGB USE SMARTSET 01841 03/25/202403/25, 03/25/2023, 02/28/2023, Additional history exists TSH [...] this encounter Medical Devices Implanted Type Area Tail Puller Device Identifier Shelf Expiration Date Model / Serial / Lot Sunglass Embosphere Micrspheres Implanted:Qty: 2 on 11/02/2019 by Ish Grove MD at [facility] Right: Abdomen [employer] 05/11/2022 S220GH / S220GH / [id number] Syr Pf 2ml Embospheres 100-300 - [id number] Implanted:Qty: 1 on 11/14/2020 at [facility] [employer] [id number] 08/22/2023 S220GH / / [id number] Envelope Antibacterial Tyrx - [id number] Implanted:Qty: 1 on 12/29/2021 by Fatoumata Roland DO at [facility] [employer] : [facility] [id number] 09/23/2022 CMR M6122 / / [id number] Stent Synergy Xd Mr 3.36r46sk - [id number] Implanted:Qty: 1 on 03/22/2022 by Katalina Pearce MD at [facility] [employer] [id number] 07/17/2023 [id number] / / [id number] Valve Berhane 3 Ultra 26mm - [id number] Implanted:Qty: 1 on 12/09/2022 by Manolo Millan MD at [facility] [employer] [id number] 12/04/2023 [id number] / / documented as of this encounter [...] the patient have Health Care Power of Game Operator? No Care Teams Member Of The Legislative Assembly Relationship Specialty Start Date End Date David Umanzor MD [address] [facility] [address] PCP - General 02/25/09 documented as of this encounter
--- OUTSIDE RECORDS SUMMARY | 2023-05-28 21:23 | External Medical Summary | Summary of Care ---
Author Name Unknown Organization [facility] Address [address] [facility] [place] [address] Phone [phone] Care Team Providers Care Extruder Operator Vertical Name Role Phone David Umanzor MD Primary Care Provider [phone]- [phone] Reason for Visit * Reason Onset Date Comments Advice 05/25/2023 Pt's creatinine Encounter Details Date Type Department Care Team (Late st Contact Info) Description 05/25/2023 Telephone Radiology [address] [place] [id number] Samia Echavarria, RT (R) Advice (Pt's creatinine) [...] neurological disease, not at goal ([facility]) Test blood sugar 4 times daily Dx: E11.9 1 Kit 0 9 Active PRODIGY LANCETS 28G MISCIndications:DM type 2, not at goal ([facility]) TEST BLOOD SUAGER 4 TIMES [...] goal of less than 7.0% ([facility]),Type 2 diabetes mellitus with stage 3 chronic kidney disease, with long-term current use of insulin, unspecified whether stage 3a or 3b CKD ([facility]),DM type 2 causing neurological disease, not at goal ([facility]) TEST BLOOD SUGAR UP TO FOUR TIMES DAILY 400 Strip 3 2 Active Fluticasone Propionate 50 MCG/ACT Nasal Suspension (Flonase)Indications:Recovery Engineer sanket rhinitis ADMINISTER 2 SPRAYS IN EACH [...] long-term current use of insulin ([facility]) Use to inject insulin 4 times daily 400 Each 3 3 Active Creon 71277-45811 UNIT Oral Capsule Delayed Release Particles (Pancrelipase (Rxw-Aktm-Qdxj))Indicatio ns:Pancreatic insufficiency TAKE ONE CAPSULE BY MOUTH [...] long-term current use of insulin ([facility]) Inject 10 units with breakfast, 4 units with lunch, and 10 units with PM meal. Inject 4 units if BG is >200. 30 mL 5 3 Active Acetaminophen 500 MG Oral TabletIndications:HFrEF (heart failure with reduced ejection fraction) ([facility]),Coronary artery disease involving [place] coronary artery of [place] heart without angina pectoris,Nonrheumatic aortic valve stenosis,Cardiac pacemaker in situ,Tachy-wilfrido syndrome ([facility]) Take 1 Tablet by mouth at bedtime. [...] long-term current use of insulin ([facility]) Inject 30 units daily 45 mL 1 [...] Active Gabapentin 300 MG Oral Capsule (Neurontin)Indications:Ac tlingit & haida on chronic combined systolic and diastolic congestive [...] ANXIETY 40 Tablet 1 4 Active Nystatin 247927 UNIT/GM External Powder (Nyamyc) APPLY TO AFFECTED [...] HYDROcodone-Acetaminophen 5-325 MG Oral TabletIndications:Atheros clerosis of [place] artery of left lower extremity with intermittent [...] to excess calories 0 08/09/2022 Atherosclerosis of [place] ar jania of left lower extremity with intermittent claudication 08/09/2022 Coronary artery disease invo lving [place] coronary artery of [place] heart with angina pectoris 03/22/2022 Last Assessment [...] 12/21/2016 Overview: Diabetic retinopathy Rheumatoid arthritis of [facility] sites without rheumatoid factor 01/26/2016 Last [...] program 11/08/2018 11/12/2019 Overview: DO NOT DELETE [facility] DETECT Study: Project # [id number], Associate Creative Director: Manny Santacruz, PhD. SUMMARY: Goal: Establish test [...] contact study staff at ; after hours Associate Creative Director via the [facility] thread machine operator . Please contact study team before resolving/deleting from patients problem list. Study phone number: [phone]. Diagnosis changed due to Research Module. Go to Snapshot for study details. Encounter for examination fo r normal comparison and control in clinical research program 11/08/2018 12/10/2021 Overview: DO NOT DELETE - [facility] Study: Project # [id number], Associate Creative Director: Kevin Pearce, MS, MPH. SUMMARY: Goal: Establish [...] contact study staff at ; after hours Associate Creative Director via the [facility] thread machine operator . - Please contact study team before resolving/deleting from patients problem list. Study phone number: [phone]. Diagnosis changed due to Research Module. Go [...] encounter Miscellaneous Notes * Telephone Encounter - Eliazar Krishna MD [...] Description 05/26/2023 2:00 PM EST Laboratory Laboratory, [place] [address] [place] [facility] [place] [address] [place] [address] [place] [address] 05/27/2023 10:00 AM EST Home Visit [facility] 132 [facility] [place] [address] Tatyana Delaney, RN 132 [facility] [place] [address] 05/31/2023 1:30 PM EST Imaging Radiology [address] 132 [facility] [place] [address] 06/06/2023 2:40 PM EST Pharmacy Pharmacy, [place] [address] [place] [address] [facility] [address] [place] [address] 06/07/2023 1:20 PM EST Office Visit [facility] C[facility] [address] [place] [address] Vira Byrd DO [address] [place] [address] 07/27/2023 3:00 PM EDT Office Visit Cardiology, [facility] [address] [facility] [address] Wood Wong PA-C [address] [place] [address] 08/01/2023 2:00 PM EDT Laboratory Laboratory, [place] [address] [place] [address] [facility] [address] [place] [address] 08/02/2023 2:00 PM EDT Office Visit Rheumatology [place] [address] [facility] [place] [address] Eliot Castelan CRNP [address] [place] [address] [place] [address] 08/08/2023 12:30 PM EDT Office Visit Hematology/Oncology [facility] [place] [address] [place] [address] Miguel A Alcantar MD [address] [place] [address] 08/18/2023 1:30 PM EDT Office Visit Nephrology, [facility] 200 [facility] [place], [place] [address] ZeAna sanchez PA-C 200 [facility] [place], [place] [address] 10/11/2023 5:40 PM EDT Office Visit Family [facility], [place] [address] [place] [address] David Umanzor MD [address] [place] [address] 03/07/2024 1:00 PM EST Office Visit Cardiology, [facility] [address] [place] [address] Manolo Millan MD [address] [place] [address] Scheduled Procedures Name Priority Associated [...] Additional history exists CKD PHOS USE SMARTSET 68950 12/02/202311/10, 08/06/2022, 08/21/2021, Additional history exists CKD HGB USE SMARTSET 09214 03/25/202403/25, 03/25/2023, 02/28/2023, Additional history exists TSH [...] this encounter Medical Devices Implanted Type Area Board Finisher Device Identifier Shelf Expiration Date Model / Serial / Lot Op[employer]otech Medical Embosphere Micrspheres Implanted:Qty: 2 on 11/02/2019 by Ish Grove MD at [facility] Right: Abdomen [employer] 05/11/2022 S220GH / S220GH / [id number] Syr Pf 2ml Embospheres 100-300 - [id number] Implanted:Qty: 1 on 11/14/2020 at [facility] [employer] [id number] 08/22/2023 S220GH / / [id number] Envelope Antibacterial Tyrx - [id number] Implanted:Qty: 1 on 12/29/2021 by Fatoumata Roland DO at OR [facility] [employer] : CRM [id number] 09/23/2022 CMR M6122 / / [id number] Stent Synergy Xd Mr 3.55k27fw - [id number] Implanted:Qty: 1 on 03/22/2022 by Katalina Pearce MD at [facility] [employer] [id number] 07/17/2023 [id number] / / [id number] Valve Berhane 3 Ultra 26mm - [id number] Implanted:Qty: 1 on 12/09/2022 by Manolo Millan MD at [facility] [employer] [id number] 12/04/2023 [id number] / / documented as of this encounter [...] the patient have Health Care Power of Inspector Grain Mill Products? No Care Teams Extruder Operator Vertical Relationship Specialty Start Date End Date David Umanzor MD [address] [place] [address] PCP - General 02/25/09 documented as of this encounter
--- OUTSIDE RECORDS SUMMARY | 2023-05-28 21:23 | External Medical Summary | Summary of Care ---
Author Name Unknown Organization [facility] Address [address] [place] [address] Phone [phone] Care Team Providers Care Checkroom Chief Name Role Phone David Umanzor MD Primary Care Provider [phone]- [phone] Reason for Visit * Reason Onset Date Comments Advice 05/25/2023 Pt's creatinine Encounter Details Date Type Department Care Team (Late st Contact Info) Description 05/25/2023 Telephone [address] [place] [id number] Samia Echavarria, RT (R) Advice (Pt's creatinine) [...] neurological disease, not at goal ([facility]) Test blood sugar 4 times daily Dx: E11.9 1 Kit 0 9 Active PRODIGY LANCETS 28G MISCIndications:DM type 2, not at goal ([facility]) TEST BLOOD SUAGER 4 TIMES A DAY [...] goal of less than 7.0% ([facility]),Type 2 diabetes mellitus with stage 3 chronic kidney disease, with long-term current use of insulin, unspecified whether stage 3a or 3b CKD ([facility]),DM type 2 causing neurological disease, not at goal ([facility]) TEST BLOOD SUGAR UP TO FOUR TIMES DAILY 400 Strip 3 2 Active Fluticasone Propionate 50 MCG/ACT Nasal Suspension (Flonase)Indications:Full Stack Engineer sanket rhinitis ADMINISTER 2 SPRAYS IN [...] long-term current use of insulin ([facility]) Use to inject insulin 4 times daily 400 Each 3 3 Active Creon 05172-65894 UNIT Oral Capsule Delayed Release Particles (Pancrelipase (Hjv-Kdpw-Fsut))Indicatio ns:Pancreatic insufficiency TAKE ONE CAPSULE BY MOUTH [...] long-term current use of insulin ([facility]) Inject 10 units with breakfast, 4 units with lunch, and 10 units with PM meal. Inject 4 units if BG is >200. 30 mL 5 3 Active Acetaminophen 500 MG Oral TabletIndications:HFrEF (heart failure with reduced ejection fraction) ([facility]),Coronary artery disease involving coqu[place] coronary artery of [place]qu[place] heart without angina pectoris,Nonrheumatic aortic valve stenosis,Cardiac pacemaker in situ,Tachy-wilfrido syndrome ([facility]) Take 1 Tablet by mouth at bedtime. 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 SUMMARY: Goal: Establish [...] contact study staff at ; after hours Farm Equipment Technician via the [facility] bag loader machine operator . Please contact study team before resolving/deleting from patients problem list. Study phone number: [phone]. Diagnosis changed due to Research Module. Go to Snapshot for study details. Encounter for examination fo r normal comparison and control in clinical research program 11/08/2018 12/10/2021 Overview: DO NOT DELETE - [facility] Study: Project # [id number], Farm Equipment Technician: Kevin Pearce, MS, MPH. SUMMARY: Goal: [...] contact study staff at ; after hours Farm Equipment Technician via the [facility] bag loader machine operator . - Please contact study team before resolving/deleting from patients problem list. Study phone number: [phone]. Diagnosis changed due to Research Module. Go [...] - 05/25/2023 2:10 PM EST Tatyana Delaney [facility] RNCM will obtain blood work during Fridays . Gayathri Malagon second helperPlant Maintenance Supervisor [facility] * Telephone Encounter - Angelika Heredia RN - 05/25/2023 1:24 PM EST Called patient. She states that Dr Gooden office had called her and she is scheduled for repeat labs already tomorrow 05/26/23 (appt noted in patients chart). She states that sometimes when she goes to [facility], they don't have a good wheelchair so she can't get into the building. She spoke to [facility] and they were going to check if Tatyana could draw her BMP at her home visit 05/27. Advised her that I will also send Tatyana a message to check, she verbalized understanding. She would like to be called about her labs to confirm whether the results are ok for her CT scan Tatyana: - can you please confirm whether you can draw BMP Tuesday or if patient would need to try to go to [facility] lab? - reviewed recommendations in other encounter- [...] creatinine now. * Telephone Encounter - Samia Echavarria, RT (R) - 05/25/2023 12:51 PM EST Pt is scheduled for CT 4 ph [...] Description 05/26/2023 2:00 PM EST [facility], [facility] [address] [facility] [phone] [facility] [address] [place] [facility] [place] [address] 05/27/2023 10:00 AM EST Home Visit [facility], [facility] [address] [facility] [place] [address] Tatyana Delaney, RN [address] [facility] [place] [address] 05/31/2023 1:30 PM EST Imaging Radiology [facility] 1st [facility] [address] [facility] [place] [address] 06/06/2023 2:40 PM EST Pharmacy Pharmacy, [place] [address] [place] [facility] [place] [address] [facility] [address] [facility] [address] 06/07/2023 1:20 PM EST Office Visit [facility] Disorders Ctr [facility] [address] [facility] [place] [phone] Vira Byrd, DO [address] [place] [address] 07/27/2023 3:00 PM EDT Office Visit Cardiology, [facility] [address] [place] [address] Wood Wong, PA-C [address] [place] [address] 08/01/2023 2:00 PM EDT Laboratory Laboratory, [place] [address] [place] [address] [facility] [address] [place] [address] 08/02/2023 2:00 PM EDT Office Visit Rheumatology [place] [address] [facility] [place], [place] [address] Eliot Castelan CRNP [address] [facility] [place], [place] [address] 08/08/2023 12:30 PM EDT Office Visit Hematology/Oncology [facility] [address] [facility] [place] [address] Miguel A Alcantar MD [address] [facility] [place] [address] 08/18/2023 1:30 PM EDT Office Visit Nephrology, [facility] [address] [place], [place] [address] Ana Lin PAGina [address] [facility] [place], [place] [address] 10/11/2023 5:40 PM EDT Office Visit [facility] [address] [facility] [address] David Umanzor MD [address] [place] [address] 03/07/2024 1:00 PM EST Office Visit Cardiology, [facility] [address] [place] [address] Manolo Millan MD [address] [place] [address] Scheduled Procedures Name Priority Associated [...] Additional history exists CKD PHOS USE SMARTSET 46700 12/02/202311/10, 08/06/2022, 08/21/2021, Additional history exists CKD HGB USE SMARTSET 21803 03/25/202403/25, 03/25/2023, 02/28/2023, Additional history exists TSH [...] this encounter Medical Devices Implanted Type Area Ground Products Director Device Identifier Shelf Expiration Date Model / Serial / Lot Wallstr Medical Embosphere Micrspheres Implanted:Qty: 2 on 11/02/2019 by Ish Grove MD at [facility] Right: Abdomen [employer] 05/11/2022 S220GH / [id number] / [id number] Syr Pf 2ml Embospheres 100-300 - [id number] Implanted:Qty: 1 on 11/14/2020 at [facility] [employer] [id number] 08/22/2023 S220GH / / [id number] Envelope Antibacterial Tyrx - [id number] Implanted:Qty: 1 on 12/29/2021 by Fatoumata Roland DO at [facility] [employer] : CRM [id number] 09/23/2022 CMR [id number] / / [id number] Stent Synergy Xd Mr 3.13u57tv - [id number] Implanted:Qty: 1 on 03/22/2022 by Katalina Pearce MD at [facility] [employer]giv [id number] 07/17/2023 [id number] / / [id number] Valve Berhane 3 Ultra 26mm - [id number] Implanted:Qty: 1 on 12/09/2022 by Manolo Millan MD at [facility] [employer] [id number] 12/04/2023 [id number] / / documented as of this encounter [...] the patient have Health Care Power of Aluminum Welder? No Care Teams Checkroom Chief Relationship Specialty Start Date End Date David Umanzor MD [address] [place] [facility] [place] [address] PCP - General 02/25/09 documented as of this encounter
--- OUTSIDE RECORDS SUMMARY | 2023-05-28 21:23 | External Medical Summary | Summary of Care ---
Author Name Unknown Organization [facility] Address [address] [facility] [address] Phone [phone] Care Team Providers Care Addiction Specialist Name Role Phone David Umanzor MD Primary Care Provider [phone]- [phone] Reason for Visit * Reason Onset Date Comments [facility]: Acute 05/25/2023 Encounter Details Date Type Department Care Team (Late st Contact Info) Description 05/25/2023 Telephone [facility], [facility] [address] [place] [address] [facility], Nurse [facility] [address] [place] [address] [facility]: Acute Allergies Active Allergy [...] 1 2 Active Blood Glucose Monitoring Suppl (PingMe AUTOCODE BLOOD GLUCOSE) w/Device KITIndications:DM type 2 causing neurological disease, not at goal ([facility]) Test blood sugar 4 times daily Dx: E11.9 1 Kit 0 9 Active PRODIGY LANCETS 28G MISCIndications:DM type 2, not at goal ([facility]) TEST BLOOD SUAGER 4 TIMES [...] A1c goal of less than 7.0% ([facility]),Type 2 diabetes mellitus with stage 3 chronic kidney disease, with long-term current use of insulin, unspecified whether stage 3a or 3b CKD ([facility]),DM type 2 causing neurological disease, not at goal ([facility]) TEST BLOOD SUGAR UP TO FOUR TIMES DAILY 400 Strip 3 2 Active Fluticasone Propionate 50 MCG/ACT Nasal Suspension (Flonase)Indications:Sfdc Consultant sanket rhinitis ADMINISTER 2 SPRAYS IN EACH [...] without long-term current use of insulin ([facility]) Use to inject insulin 4 times daily 400 Each 3 3 Active Creon 98436-93924 UNIT Oral Capsule Delayed Release Particles (Pancrelipase (Seh-Wkdj-Gxaj))Indicatio ns:Pancreatic insufficiency TAKE ONE CAPSULE BY MOUTH [...] without long-term current use of insulin ([facility]) Inject 10 units with breakfast, 4 units with lunch, and 10 units with PM meal. Inject 4 units if BG is >200. 30 mL 5 3 Active Acetaminophen 500 MG Oral TabletIndications:HFrEF (heart failure with reduced ejection fraction) ([facility]),Coronary artery disease involving [place] coronary artery of [place] heart without angina pectoris,Nonrheumatic aortic valve stenosis,Cardiac [...] ANXIETY 40 Tablet 1 4 Active Nystatin 370001 UNIT/GM External Powder (Nyamyc) APPLY TO AFFECTED [...] HYDROcodone-Acetaminophen 5-325 MG Oral TabletIndications:Atheros clerosis of [place] artery of left lower extremity with intermittent [...] to excess calories 0 08/09/2022 Atherosclerosis of [place] ar jania of left lower extremity with intermittent claudication 08/09/2022 Coronary artery disease invo lving [place] coronary artery of [place] heart with angina pectoris 03/22/2022 Last Assessment [...] 12/21/2016 Overview: Diabetic retinopathy Rheumatoid arthritis of [facility] sites without rheumatoid factor 01/26/2016 Last Assessment [...] DELETE [facility] DETECT Study: Project # [id number], Monument Carver: Manny Santacruz, PhD. SUMMARY: Goal: Establish test [...] contact study staff at ; after hours Monument Carver via the [facility] hospital pack room operator . Please contact study team before resolving/deleting from patients problem list. Study phone number: [phone]. Diagnosis changed due to Research Module. Go to Snapshot for study details. Encounter for examination fo r normal comparison and control in clinical research program 11/08/2018 12/10/2021 Overview: DO NOT DELETE - [facility] Study: Project # [id number], Monument Carver: Kevin Pearce, MS, MPH. SUMMARY: Goal: Establish [...] contact study staff at ; after hours Monument Carver via the [facility] hospital pack room operator . - Please contact study team before resolving/deleting from patients problem list. Study phone number: [phone]. Diagnosis changed due to Research Module. Go [...] answer, left message to return call to [facility] for recommendations from Dr. Jeff. Also wanted to let patient know Tatyana CHOE will obtain her ordered blood work during Fridays . Gayathri Malagon RN Certified Recreational Therapist [facility] * Telephone Encounter - Luigi Jeff [...] from the original note were not included. 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 Acute Call Date: 05/25/2023 Time: 11:20 AM Name: Orquidea Valencia : 1950 Caller: Orquidea Relationship to : self HPI: Orquidea Valencia is a 73 year old female that is calling [employer] [facility] Intake to report on a [facility] nurse called her because her weight [...] Appointment scheduled for same day: TBD Await [facility] recommendations Follow up phone call tomorrow Gayathri Malagon orthotistCertified Recreational Therapist [facility] documented in this encounter Plan of Treatment Upcoming Encounters Date Type Department Care Team (Late st Contact Info) Description 05/26/2023 2:00 PM EST Laboratory Laboratory, [place] [address] [place] [address] [facility], Laboratory [address] [place], [place] [phone] 05/27/2023 10:00 AM EST [facility], [facility] [address] [facility] [place] [address] Tatyana Delaney, RN [address] [place] [address] 05/31/2023 1:30 PM EST Imaging Radiology [facility] 1st [facility] [address] [place] [address] 06/06/2023 2:40 PM EST Pharmacy Pharmacy, [place] [address] [place] [address] [facility] [address] [place] [address] 06/07/2023 1:20 PM EST Office Visit Sleep Disorders Ctr [facility] [address] [facility] [place] [phone] Vira Byrd DO [address] [facility] [place] [address] 07/27/2023 3:00 PM EDT Office Visit Cardiology, [facility] [address] [place] [address] Wood Wong PAMirandaC [address] [facility] [place] [address] 08/01/2023 2:00 PM EDT Laboratory Laboratory, [place] [address] [facility] [place] [phone] [facility] [address] [place] [facility] [place] [address] 08/02/2023 2:00 PM EDT Office Visit Rheumatology [address], [place] [address] Eliot Castelan CRNP [address] [facility] [place], [place] [address] 08/08/2023 12:30 PM EDT Office Visit Hematology/Oncology [facility] [address] [place] [address] Miguel A Alcantar MD 200 [facility] [place] [address] 08/18/2023 1:30 PM EDT Office Visit Nephrology, [facility] [address] [facility] [place] [address] Ana Lin PA-C [address] [facility] [place], [place] [address] 10/11/2023 5:40 PM EDT [facility] [address] [place] [phone] David Umanzor MD [address], [place] [phone] 03/07/2024 1:00 PM EST Office Visit Cardiology, [facility] [address] [place], [place] [phone] Manolo Millan MD [address] [place] [address] Scheduled Procedures Name Priority Associated [...] Additional history exists CKD PHOS USE SMARTSET 98881 12/02/202311/10, 08/06/2022, 08/21/2021, Additional history exists CKD HGB USE SMARTSET 31311 03/25/202403/25, 03/25/2023, 02/28/2023, Additional history exists TSH [...] encounter Medical Devices Implanted Type Area Community Engagement Representative Device Identifier Shelf Expiration Date Model / Serial / Lot Foradian Medical Embosphere Micrspheres Implanted:Qty: 2 on 11/02/2019 by Ish Grove MD at [facility] Right: Abdomen [employer] 05/11/2022 S220GH / S220GH / [id number] Syr Pf 2ml Embospheres 100-300 - [id number] Implanted:Qty: 1 on 11/14/2020 at [facility] [employer] [id number] 08/22/2023 S220GH / / [id number] Envelope Antibacterial Tyrx - [id number] Implanted:Qty: 1 on 12/29/2021 by Fatoumata Roland DO at [facility] [employer] : [facility] [id number] 09/23/2022 CMR M6122 / / [id number] Stent Synergy Xd Mr 3.25c57ij - [id number] Implanted:Qty: 1 on 03/22/2022 by Katalina Pearce MD at [facility] [employer] [id number] 07/17/2023 [id number] / / [id number] Valve Berhane 3 Ultra 26mm - [id number] Implanted:Qty: 1 on 12/09/2022 by Manolo Millan MD at [facility] [employer] [id number] 12/04/2023 [id number] / / documented as of this encounter [...] the patient have Health Care Power of Counseling Program Leader? No Care Teams Addiction Specialist Relationship Specialty Start Date End Date David Umanzor MD [address] [place] [address] PCP - General 02/25/09 documented as of this encounter
--- OUTSIDE RECORDS SUMMARY | 2023-05-28 21:23 | External Medical Summary | Summary of Care ---
Author Name Unknown Organization [facility] Address [address] [facility] [place] [address] Phone [phone] Care Team Providers Care Federal Mediation Commissioner Name Role Phone David Umanzor MD Primary Care Provider [phone]- [phone] Reason for Visit * Reason Onset Date Comments Advice 05/25/2023 Pt's creatinine Encounter Details Date Type Department Care Team (Late st Contact Info) Description 05/25/2023 Telephone Radiology [address] [place] [id number] Samia Echavarria, RT (R) Advice (Pt's creatinine) [...] 2 causing neurological disease, not at goal ([facility]) Test blood sugar 4 times daily Dx: E11.9 1 Kit 0 9 Active PRODIGY LANCETS 28G MISCIndications:DM type 2, not at goal ([facility]) TEST BLOOD SUAGER 4 TIMES [...] hemoglobin A1c goal of less than 7.0% ([facility]),Type 2 diabetes mellitus with stage 3 chronic kidney disease, with long-term current use of insulin, unspecified whether stage 3a or 3b CKD ([facility]),DM type 2 causing neurological disease, not at goal ([facility]) TEST BLOOD SUGAR UP TO FOUR TIMES DAILY 400 Strip 3 2 Active Fluticasone Propionate 50 MCG/ACT Nasal Suspension (Flonase)Indications:Computer Animator sanket rhinitis ADMINISTER 2 SPRAYS IN EACH [...] coma, without long-term current use of insulin ([facility]) Use to inject insulin 4 times daily 400 Each 3 3 Active Creon 77866-43973 UNIT Oral Capsule Delayed Release Particles (Pancrelipase (Gxw-Spad-Obkr))Indicatio ns:Pancreatic insufficiency TAKE ONE CAPSULE BY MOUTH [...] coma, without long-term current use of insulin ([facility]) Inject 10 units with breakfast, 4 units with lunch, and 10 units with PM meal. Inject 4 units if BG is >200. 30 mL 5 3 Active Acetaminophen 500 MG Oral TabletIndications:HFrEF (heart failure with reduced ejection fraction) ([facility]),Coronary artery disease involving [place] coronary artery of [place] heart without angina pectoris,Nonrheumatic aortic valve stenosis,Cardiac pacemaker in situ,Tachy-wilfrido syndrome ([facility]) Take 1 Tablet by mouth [...] coma, without long-term current use of insulin ([facility]) Inject 30 units daily 45 [...] Active Gabapentin 300 MG Oral Capsule (Neurontin)Indications:Ac [place] on chronic combined systolic and diastolic congestive [...] ANXIETY 40 Tablet 1 4 Active Nystatin 812603 UNIT/GM External Powder (Nyamyc) APPLY TO AFFECTED [...] Diabetic retinopathy Rheumatoid arthritis of [facility] sites without rheumatoid factor 01/26/2016 Last Assessment [...] [facility] DETECT Study: Project # [id number], Asphalt Surface Heater Operator: Manny Santacruz, PhD. SUMMARY: Goal: Establish [...] contact study staff at ; after hours Asphalt Surface Heater Operator via the [facility] paint spraying machine operator helper . Please contact study team before resolving/deleting from patients problem list. Study phone number: [phone]. Diagnosis changed due to Research Module. Go to Snapshot for study details. Encounter for examination fo r normal comparison and control in clinical research program 11/08/2018 12/10/2021 Overview: DO NOT DELETE - [facility] Study: Project # [id number], Asphalt Surface Heater Operator: Kevin Pearce, MS, MPH. SUMMARY: Goal: [...] contact study staff at ; after hours Asphalt Surface Heater Operator via the [facility] paint spraying machine operator helper . - Please contact study team before resolving/deleting from patients problem list. Study phone number: [phone]. Diagnosis changed due to Research Module. Go [...] - 05/25/2023 2:10 PM EST Tatyana Delaney [facility] RNCM will obtain blood work during Fridays . Gayathri Malagon display trimmerAir Conditioning Supervisor [facility] * Telephone Encounter - Angelika Heredia RN - 05/25/2023 1:24 PM EST Called patient. She states that Dr Gooden office had called her and she is scheduled for repeat labs already tomorrow 05/26/23 (appt noted in patients chart). She states that sometimes when she goes to [facility], they don't have a good wheelchair so she can't get into the building. She spoke to [facility] and they were going to check if [...] would need to try to go to [facility] lab? - reviewed recommendations in other encounter- [...] Description 05/26/2023 2:00 PM EST Laboratory Laboratory, [place] [address] [place] [phone] [facility] [address] [place] [facility] [place] [address] 05/27/2023 10:00 AM EST Home Visit [facility] [address] [facility] [place] [address] Tatyana Delaney, RN 132 [facility] [place] [address] 05/31/2023 1:30 PM EST Imaging Radiology [facility] 1st [facility] [address] [facility] [place] [address] 06/06/2023 2:40 PM EST Pharmacy Pharmacy, [place] [address] [place] [address] [facility] [address] [place] [address] 06/07/2023 1:20 PM EST Office Visit [facility] Disorders Ctr [facility] [address] [facility] [place] [phone] Vira Byrd, DO [address] [place] [address] 07/27/2023 3:00 PM EDT Office Visit Cardiology, [facility] [address] [place] [address] Wood Wong, PA-C [address] [place] [address] 08/01/2023 2:00 PM EDT Laboratory Laboratory, [place] [address] [place] [address] [facility] [address] [place] [address] 08/02/2023 2:00 PM EDT Office Visit Rheumatology [place] [address] [facility] [place], [place] [address] Eliot Castelan CRNP [address] [facility] [place], [place] [address] 08/08/2023 12:30 PM EDT Office Visit Hematology/Oncology [facility] [address] [facility] [place] [address] Miguel A Alcantar MD [address] [facility] [place] [address] 08/18/2023 1:30 PM EDT Office Visit Nephrology, [facility] [address] [place], [place] [address] Ana Lin PAGina [address] [facility] [place], [place] [address] 10/11/2023 5:40 PM EDT Office Visit Family [facility] [place] [address] [place] [address] David Umanzor MD [address] [place] [address] 03/07/2024 1:00 PM EST Office Visit Cardiology, [facility] [address] [place] [address] Manolo Millan MD [address] [place] [address] Scheduled Procedures Name Priority Associated [...] Additional history exists CKD PHOS USE SMARTSET 32605 12/02/202311/10, 08/06/2022, 08/21/2021, Additional history exists CKD HGB USE SMARTSET 49547 03/25/202403/25, 03/25/2023, 02/28/2023, Additional history exists TSH [...] this encounter Medical Devices Implanted Type Area [place] Operator Device Identifier Shelf Expiration Date Model / Serial / Lot Affashion Medical Embosphere Micrspheres Implanted:Qty: 2 on 11/02/2019 by Ish Grove MD at [facility] Right: Abdomen [employer] 05/11/2022 S220GH / S220GH / [id number] Syr Pf 2ml Embospheres 100-300 - [id number] Implanted:Qty: 1 on 11/14/2020 at [facility] [employer] [id number] 08/22/2023 S220GH / / [id number] Envelope Antibacterial Tyrx - [id number] Implanted:Qty: 1 on 12/29/2021 by Fatoumata Roland DO at [facility] [employer] : CRM [id number] 09/23/2022 CMR [id number] / / [id number] Stent Synergy Xd Mr 3.39d75vb - [id number] Implanted:Qty: 1 on 03/22/2022 by Katalina Pearec MD at [facility] [employer] [id number] 07/17/2023 [id number] / / [id number] Valve Berhane 3 Ultra 26mm - [id number] Implanted:Qty: 1 on 12/09/2022 by Manolo Millan MD at [facility] [employer] [id number] 12/04/2023 [id number] / / documented as of this encounter [...] the patient have Health Care Power of Strainer Tender? No Care Teams Federal Mediation Commissioner Relationship Specialty Start Date End Date David Umanzor MD [address] [place] [facility] [place] [address] PCP - General 02/25/09 documented as of this encounter
--- OUTSIDE RECORDS SUMMARY | 2023-05-28 21:23 | External Medical Summary | Summary of Care ---
Author Name Unknown Organization [facility] Address [address] [facility] [place] [address] Phone [phone] Care Team Providers Care Transitions Manager Name Role Phone David Umanzor MD Primary Care Provider +1- [phone] Reason for Visit * Reason Onset Date Comments Advice 05/25/2023 Pt's creatinine Encounter Details Date Type Department Care Team (Late st Contact Info) Description 05/25/2023 Telephone Rad[address] [place] [phone] Samia Echavarria, RT (R) Advice (Pt's creatinine) [...] Active Fluticasone Propionate 50 MCG/ACT Nasal Suspension (Flonase)Indications: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 ADMINISTER 2 SPRAYS IN EACH [...] daily 400 Each 3 3 Active Creon 50190-23493 UNIT Oral Capsule Delayed Release Particles (Pancrelipase (Oie-Vgrb-Qbcy))Indicatio ns:Pancreatic insufficiency TAKE ONE CAPSULE BY MOUTH [...] [facility]),Coronary artery disease involving [place] coronary artery of [place] heart without angina pectoris,Nonrheumatic aortic valve stenosis,Cardiac pacemaker in situ,Tachy-wilfrido syndrome ([facility]) Take 1 Tablet by mouth [...] insulin ([facility]) Inject 30 units daily 45 [...] Active Gabapentin 300 MG Oral Capsule (Neurontin)Indications:Ac [place] on chronic combined systolic and diastolic congestive [...] ANXIETY 40 Tablet 1 4 Active Nystatin 528618 UNIT/GM External Powder (Nyamyc) APPLY TO AFFECTED [...] HYDROcodone-Acetaminophen 5-325 MG Oral TabletIndications:Atheros clerosis of [place] artery of left lower extremity with intermittent [...] to excess calories 0 08/09/2022 Atherosclerosis of [place] ar jania of left lower extremity with intermittent claudication 08/09/2022 Coronary artery disease invo lving [place] coronary artery of [place] heart with angina pectoris 03/22/2022 Last Assessment [...] 12/21/2016 Overview: Diabetic retinopathy [facility] without [facility] factor 01/26/2016 Last [...] [facility] Study: Project # [id number], Circus Hand: Manny Santacruz, PhD. SUMMARY: Goal: Establish test [...] contact study staff at ; after hours Circus Hand via the [facility] stiff leg derrick operator . Please contact study team before resolving/deleting from patients problem list. Study phone number: [phone]. Diagnosis changed due to Research Module. Go to Snapshot for study details. Encounter for examination fo r normal comparison and control in clinical research program 11/08/2018 12/10/2021 Overview: DO NOT DELETE - [facility] Study: Project # [id number], Circus Hand: Kevin Pearce, MS, MPH. SUMMARY: Goal: Establish [...] contact study staff at ; after hours Circus Hand via the [facility] stiff leg derrick operator . - Please contact study team before resolving/deleting from patients problem list. Study phone number: [phone]. Diagnosis changed due to Research Module. Go [...] / RA -- low 89%, mean 95%, TUKCER 0 Cardiomyopathy 12/07/2011 05/08/2012 Kidney disease, chronic, [...] encounter Miscellaneous Notes * Telephone Encounter - Angelika Heredia RN - 05/25/2023 1:24 PM EST Called patient. She states that Dr Gooden office had called her and she is scheduled for repeat labs already tomorrow 05/26/23 (appt noted in patients chart). She states that sometimes when she goes to [facility], they don't have a good wheelchair so she can't get into the building. She spoke to [facility] and they were going to check if Tatyana could draw her BMP at her home visit 05/27. Advised her that I will also send Tatyana a message to check, she verbalized understanding. She would like to be called about her labs to confirm whether the results are ok for her CT scan ornot. Joe: - can you please confirm whether you can draw BMP Tuesday or if patient would need to try to go to [facility] lab? - reviewed recommendations in other encounter- [...] Description 05/26/2023 2:00 PM EST Laboratory Laboratory, [facility] [address] [place] [phone] [facility] [address] [place] [address] 05/27/2023 10:00 AM EST Home Visit [facility] [address] [facility] [place] [address] Tatyana Delaney RN [address] [facility] [place] [address] 05/31/2023 1:30 PM EST Imaging Radiology [facility] [address] [facility] [place] [address] 06/06/2023 2:40 PM EST Pharmacy Pharmacy, [facility] [address] [place] [address] [facility] [address] [place] [address] 06/07/2023 1:20 PM EST Office Visit Sleep Disorders Ctr [facility] 132 [facility] [place] [phone] Vira Byrd DO [address] [place] [address] 07/27/2023 3:00 PM EDT Office Visit Cardiology, [facility] [address] [place] [address] Wood Wong PA-C [address] [place] [address] 08/01/2023 2:00 PM EDT Laboratory Laboratory, [facility] [address] [place] [phone] [facility] [address] [place], [place] [address] 08/02/2023 2:00 PM EDT Office Visit Rheumatology [place] [phone] [facility] [place] [address] Eliot Castelan CRNP [facility] [address] [facility] [place] [address] 08/08/2023 12:30 PM EDT Office Visit Hematology/Oncology [facility] [address] [place] [address] Miguel A Alcantar MD [address] [place] [address] 08/18/2023 1:30 PM EDT Office Visit Nephrology, [facility] [address] [place] [address] Ana Lin PA-C [address] [facility] [place] [address] 10/11/2023 5:40 PM EDT Office Visit Family Practice, [facility] [address] [place] [phone] David Umanzor MD [address] [place] [address] 03/07/2024 1:00 PM EST Office Visit Cardiology, [facility] [address] [place] [address] Manolo Millan MD [address] [place] [address] Scheduled Procedures Name Priority Associated Diagnoses Date/Ti [...] Additional history exists CKD PHOS USE SMARTSET 12447 12/02/202311/10, 08/06/2022, 08/21/2021, Additional history exists CKD HGB USE SMARTSET 77456 03/25/202403/25, 03/25/2023, 02/28/2023, Additional history exists TSH [...] encounter Medical Devices Implanted Type Area Wire Coating Operator Metal Device Identifier Shelf Expiration Date Model / Serial / Lot [employer] Medical Embosphere Micrspheres Implanted:Qty: 2 on 11/02/2019 by Ish Grove MD at [facility] Right: Abdomen [employer] 05/11/2022 S220GH / S220GH / [id number] Syr Pf 2ml Embospheres 100-300 - [id number] Implanted:Qty: 1 on 11/14/2020 at [facility] [employer] [id number] 08/22/2023 S220GH / / [id number] Envelope Antibacterial Tyrx - [id number] Implanted:Qty: 1 on 12/29/2021 by Fatoumata Roland DO at OR [facility] [employer] : CRM [id number] 09/23/2022 CMR M6122 / / [id number] Stent Synergy Xd Mr 3.14k90ao - [id number] Implanted:Qty: 1 on 03/22/2022 by Katalina Pearce MD at [facility] [employer] [id number] 07/17/2023 [id number] / / [id number] Valve Berhane 3 Ultra 26mm - [id number] Implanted:Qty: 1 on 12/09/2022 by Manolo Millan MD at [facility] [employer] [id number] 12/04/2023 [id number] / / documented as of this encounter [...] the patient have Health Care Power of Mortgage Or Loan Underwriter? No Care Teams Transitions Manager Relationship Specialty Start Date End Date David Umanzor MD [address] [place] [address] PCP - General 02/25/09 documented as of this encounter
--- OUTSIDE RECORDS SUMMARY | 2023-05-28 21:23 | External Medical Summary | Summary of Care ---
Author Name Unknown Organization [facility] Address [address] [facility] [address] Phone [phone] Care Team Providers Care Railway Signalling Engineer Name Role Phone David Umanzor MD Primary Care Provider [phone]- [phone] Reason for Visit * Reason Onset Date Comments [facility]: Acute 05/25/2023 Encounter Details Date Type Department Care Team (Late st Contact Info) Description 05/25/2023 Telephone [facility], [facility] 132 [facility] [place] [address] [facility], Nurse [facility] 132 [place] [address] [facility]: Acute Allergies Active Allergy [...] 1 2 Active Blood Glucose Monitoring Suppl ([employer] AUTOCODE BLOOD GLUCOSE) w/Device KITIndications:DM type 2 causing neurological disease, not at goal ([facility]) Test blood sugar 4 times daily Dx: E11.9 1 Kit 0 9 Active PRODIGY LANCETS 28G MISCIndications:DM type 2, not at goal ([facility]) TEST BLOOD SUAGER 4 TIMES A [...] hemoglobin A1c goal of less than 7.0% ([facility]),Type 2 diabetes mellitus with stage 3 chronic kidney disease, with long-term current use of insulin, unspecified whether stage 3a or 3b CKD ([facility]),DM type 2 causing neurological disease, not at goal ([facility]) TEST BLOOD SUGAR UP TO FOUR TIMES DAILY 400 Strip 3 2 Active Fluticasone Propionate 50 MCG/ACT Nasal Suspension (Flonase)Indications:Mattress Stripper sanket rhinitis ADMINISTER 2 SPRAYS IN EACH [...] coma, without long-term current use of insulin ([facility]) Use to inject insulin 4 times daily 400 Each 3 3 Active Creon 15066-45335 UNIT Oral Capsule Delayed Release Particles (Pancrelipase (Hiw-Spuz-Iqwd))Indicatio ns:Pancreatic insufficiency TAKE ONE CAPSULE BY MOUTH [...] coma, without long-term current use of insulin ([facility]) Inject 10 units with breakfast, 4 units with lunch, and 10 units with PM meal. Inject 4 units if BG is >200. 30 mL 5 3 Active Acetaminophen 500 MG Oral TabletIndications:HFrEF (heart failure with reduced ejection fraction) ([facility]),Coronary artery disease involving [place] coronary artery of [place] heart without angina pectoris,Nonrheumatic aortic valve stenosis,Cardiac [...] ANXIETY 40 Tablet 1 4 Active Nystatin 129944 UNIT/GM External Powder (Nyamyc) APPLY TO AFFECTED [...] HYDROcodone-Acetaminophen 5-325 MG Oral TabletIndications:Atheros clerosis of [place] artery of left lower extremity with intermittent [...] to excess calories 0 08/09/2022 Atherosclerosis of [place] ar jania of left lower extremity with intermittent claudication 08/09/2022 Coronary artery disease invo lving [place] coronary artery of [place] heart with angina pectoris 03/22/2022 Last Assessment [...] Diabetic retinopathy Rheumatoid arthritis of [facility] sites without rheumatoid factor 01/26/2016 Last [...] DELETE [facility] DETECT Study: Project # [id number], Assistant Hall Director: Manny Santacruz, PhD. SUMMARY: Goal: Establish [...] contact study staff at ; after hours Assistant Hall Director via the [facility] hospital injection moulding machine operator . Please contact study team before resolving/deleting from patients problem list. Study phone number: [phone]. Diagnosis changed due to Research Module. Go to Snapshot for study details. Encounter for examination fo r normal comparison and control in clinical research program 11/08/2018 12/10/2021 Overview: DO NOT DELETE - [facility] Study: Project # [id number], Assistant Hall Director: Kevin Pearce, MS, MPH. SUMMARY: Goal: [...] contact study staff at ; after hours Assistant Hall Director via the [facility] hospital injection moulding machine operator . - Please contact study team before resolving/deleting from patients problem list. Study phone number: [phone]. Diagnosis changed due to Research Module. Go [...] from the original note were not included. [facility] aerospace products sales engineer Acute Call Date: 05/25/2023 Time: 11:20 AM Name: Orquidea Valencia : 1950 Caller: Orquidea Relationship to : self HPI: Orquidea Valencia is a 73 year old female that is calling [facility] Intake to report on a [facility] nurse called her because her weight [...] Appointment scheduled for same day: TBD Await [facility] recommendations Follow up phone call tomorrow [facility] hospital laboratory technicianHandle Turner [facility] documented in this encounter Plan of Treatment Upcoming Encounters Date Type Department Care Team (Late st Contact Info) Description 05/26/2023 2:00 PM EST Laboratory Laboratory, [place] [address] [place] [address] [place] [address] [place] [address] 05/27/2023 10:00 AM EST Home Visit [facility] 132 [place] [address] Tatyana Delaney RN 132 [place] [address] 05/31/2023 1:30 PM EST Imaging Radiology [address] 132 [place] [address] 06/06/2023 2:40 PM EST Pharmacy Pharmacy, [place] [address] [place] [address] [place] [facility] [address] [place] [address] 06/07/2023 1:20 PM EST Office Visit Sleep Disorders Ctr [facility] [address] [facility] [place] [address] Vira Byrd DO 132 [place] [address] 07/27/2023 3:00 PM EDT Office Visit Cardiology, [facility] [address] [facility] [place] [address] Wood Wong PA-C [address] [facility] [place] [place] [address] 08/01/2023 2:00 PM EDT Laboratory Laboratory, [place] [address] [place] [address] [facility] [address] [place] [address] 08/02/2023 2:00 PM EDT Office Visit Rheumatology [facility] [address] [facility] [place] [address] Eliot Castelan CRNP [address] [facility] [place] [address] 08/08/2023 12:30 PM EDT Office Visit Hematology/On[facility] [address] [place] [address] Miguel A Alcantar MD [address] [place] [address] 08/18/2023 1:30 PM EDT Office Visit Nephrology, [place] 200 [facility] [place], [place] [address] ZeAna sanchez PA-C [address] [place], [place] [address] 10/11/2023 5:40 PM EDT [facility] [address] [place] [address] David Umanzor MD [address] [place] [address] 03/07/2024 1:00 PM EST Office Visit Cardiology, [facility] [address] [place], [place] [address] Manolo Millan MD [address] [place] [address] Scheduled Procedures Name Priority Associated [...] Additional history exists CKD PHOS USE SMARTSET 25778 12/02/202311/10, 08/06/2022, 08/21/2021, Additional history exists CKD HGB USE SMARTSET 24346 03/25/202403/25, 03/25/2023, 02/28/2023, Additional history exists TSH [...] this encounter Medical Devices Implanted Type Area Director State Pharmacy Device Identifier Shelf Expiration Date Model / Serial / Lot [employer] Embosphere Micrspheres Implanted:Qty: 2 on 11/02/2019 by Ish Grove MD at [facility] Right: Abdomen [employer] 05/11/2022 S220GH / [id number] / [id number] Syr Pf 2ml Embospheres 100-300 - [id number] Implanted:Qty: 1 on 11/14/2020 at [facility] [employer] [id number] 08/22/2023 S220GH / / [id number] Envelope Antibacterial Tyrx - [id number] Implanted:Qty: 1 on 12/29/2021 by Fatoumata Roland DO at [facility] [employer] : [facility] [id number] 09/23/2022 CMR [id number] / / [id number] Stent Synergy Xd Mr [id number] - [id number] Implanted:Qty: 1 on 03/22/2022 by Katalina Pearce MD at [facility] [employer] [id number] 07/17/2023 [id number] / / [id number] Valve Berhane 3 Ultra 26mm - [id number] Implanted:Qty: 1 on 12/09/2022 by Manolo Millan MD at [facility] [employer] [id number] 12/04/2023 [id number] / / documented as of this encounter [...] the patient have Health Care Power of Mba Internship? No Care Teams Railway Signalling Engineer Relationship Specialty Start Date End Date David Umanzor MD [address] [facility] [place] [address] PCP - General 02/25/09 documented as of this encounter
--- OUTSIDE RECORDS SUMMARY | 2023-05-28 21:24 | External Medical Summary | Summary of Care ---
Author Name Unknown Organization [facility] Address [address] [place] [facility] [place] [place] [address] Phone [phone] Care Team Providers Care Jammer Hooker Name Role Phone David Umanzor MD Primary Care Provider [phone]- [phone] Reason for Visit * Reason Onset Date Comments Information 05/17/2023 Encounter Details Date Type Department Care Team (Late st Contact Info) Description 05/17/2023 Telephone NephrologyRaphael Palmer [address] [place] [address] TobiasLuz jacques MD [address] [place] [address] Information Allergies Active Allergy Reactions Criticality Noted Date Comments Bactrim 02/09/2010 Cephalosporins Anaphylaxis,Edema face/lips/tongue High 04/11/2009 Anaphylaxis to cefaclor, facial swelling to cephalexin. Ciprofloxacin Low 03/30/2021 Other reaction(s): Nausea Butorphanol Tartrate 02/09/2010 Heart racing Sulfa Antibiotics Hives High 05/22/2002 Other reaction(s): Hives Trimethoprim 04/15/2022 Other reaction(s): Hives documented as of this encounter (statuses as of 05/20/2023) Medications Medication Sig Dispensed Refills Start Date [...] 2 causing neurological disease, not at goal ([facility]) Test blood sugar 4 times daily Dx: E11.9 1 Kit 0 9 Active PRODIGY LANCETS 28G MISCIndications:DM type 2, not at goal ([facility]) TEST BLOOD SUAGER 4 TIMES [...] hemoglobin A1c goal of less than 7.0% ([facility]),Type 2 diabetes mellitus with stage 3 chronic kidney disease, with long-term current use of insulin, unspecified whether stage 3a or 3b CKD ([facility]),DM type 2 causing neurological disease, not at goal ([facility]) TEST BLOOD SUGAR UP TO FOUR TIMES DAILY 400 Strip 3 2 Active Fluticasone Propionate 50 MCG/ACT Nasal Suspension (Flonase)Indications: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 15 mL 3 3 Active Folic Acid 1 MG Oral TabletIndications:Encount er for long-term (current) use of medications Take 1 Tablet by mouth in the morning. 90 Tablet 3 3 Active BD Pen Needle Corinna U/F 32G X 4 MM (Insulin Pen Needle)Indications:Type 2 diabetes mellitus with hyperosmolarity without coma, without long-term current use of insulin ([facility]) Use to inject insulin 4 times daily 400 Each 3 3 Active Creon 54242-40647 UNIT Oral Capsule Delayed Release Particles (Pancrelipase (Lbe-Cpex-Oftc))Indicatio ns:Pancreatic insufficiency TAKE ONE CAPSULE BY MOUTH [...] coma, without long-term current use of insulin ([facility]) Inject 10 units with breakfast, 4 units with lunch, and 10 units with PM meal. Inject 4 units if BG is >200. 30 mL 5 3 Active Acetaminophen 500 MG Oral TabletIndications:HFrEF (heart failure with reduced ejection fraction) ([facility]),Coronary artery disease involving [place] coronary artery of [place] heart without angina pectoris,Nonrheumatic aortic valve stenosis,Cardiac [...] coma, without long-term current use of insulin ([facility]) Inject 30 units daily 45 [...] Active Gabapentin 300 MG Oral Capsule (Neurontin)Indications:[place] on chronic combined systolic and diastolic congestive [...] ANXIETY 40 Tablet 1 4 Active Nystatin 297914 UNIT/GM External Powder (Nyamyc) APPLY TO AFFECTED [...] HYDROcodone-Acetaminophen 5-325 MG Oral TabletIndications: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 01/17/2023 Presence of permanent cardiac pacemaker 11/27/19 History of kidney stones 09/15/2022 Non-pressure chronic ulcer of lower leg 09/15/19 Last Assessment & Plan: Bandage noted to [...] to excess calories 0 08/09/2022 Atherosclerosis of [place] ar jania of left lower extremity with intermittent claudication 08/09/2022 Coronary artery disease invo lving [place] coronary artery of [place] heart with angina pectoris 03/22/2022 Last Assessment [...] as of this encounter (statuses as of 05/20/2023) Resolved Problems Problem Noted Date Diagnosed Date [...] 11/08/2018 11/12/2019 Overview: DO NOT DELETE [facility] DETECT Study: Project # [id number], Group Exercise Instructor: Manny Santacruz, PhD. SUMMARY: Goal: Establish test [...] contact study staff at ; after hours Group Exercise Instructor via the [facility] glue drier operator . Please contact study team before resolving/deleting from patients problem list. Study phone number: [phone]. Diagnosis changed due to Research Module. Go to Snapshot for study details. Encounter for examination fo r normal comparison and control in clinical research program 11/08/2018 12/10/2021 Overview: DO NOT DELETE - [facility] Study: Project # [id number], Group Exercise Instructor: Kevin Pearce, MS, MPH. SUMMARY: Goal: Establish [...] contact study staff at ; after hours Group Exercise Instructor via the [facility] glue drier operator . - Please contact study team before resolving/deleting from patients problem list. Study phone number: [phone]. Diagnosis changed due to Research Module. Go [...] as of this encounter (statuses as of 05/20/2023) Immunizations Name Administration Dates Next Due COVID-19 [...] encounter Miscellaneous Notes * Telephone Encounter - Андрей Shelton LPN - 05/20/2023 4:13 PM EST Pt is aware Ok to get BMP done on 05/[address] Tobias's order Pt will have HH to write weights andBP down and have them sent by RN when she sees pt on 05/27 * Addendum Note - Андрей Shelton LPN - 05/20/2023 3:54 PM ESTAddended by: АНДРЕЙ SHELTON on: 05/20/2023 03:54 PM Modules accepted: Orders * Telephone Encounter - Андрей Shelton LPN - 05/20/2023 3:52 PM EST Lab orders placed for BMP in [employer] lab system Will await MD response on lab timing then contactpt OK to leave message * Telephone Encounter - Андрей Shelton LPN - 05/20/2023 3:16 PM EST Pt is aware Will have HH write down BP and daily weights Pt is blind so I will get RN who comes in on 05/27 to send to us for review Pt has apt on 05/26/23 for Bloodwork prior to imaging Will this be ok instead of 05/30 Please advise * Telephone Encounter - Kenny Verdin OSA - 05/20/2023 2:55 PM EST Patient returning call. Please call her back when available. [phone] * Telephone Encounter - Андрей Shelton LPN - 05/20/2023 2:44 PM EST LMM om Cell phone and home phone voice mail to return call to office regarding Test results * Telephone Encounter - Tatyana Delaney RN - 05/20/2023 7:59 AM EST I am seeing pt on 05/27. Pt has [facility] going several times a week for wound care. Renal nurse - when you call pt can you have her keep track of those bp's and wts - she can have thenurses write them down and then when I am there I will send you the list next week.. Thanks! * Telephone Encounter - Luz Tobias MD - 05/20/2023 7:46 AM EST Labs worse than baseline but w/ brisk diiuresis seen on these [facility] wts/ BP that's ok She should be off metolazone now (had just finished at start of month) Recommend continue current diuretics Repeat bmp and update me on wts/ bp from [facility] in 10 days (around 05/30) Renal nurse pls update pt; [facility] pls coordinate w/ neph nurse * Telephone Encounter - Tatyana Delaney RN - 05/17/2023 4:01 PM EST Images from the original note were not included. There is poor connectivity in the patient's home so it is not always consistent with transmission. This is what is showing up for the past 1-2 weeks for weights. She does not have bp cuff in the home. These are the reading from home or office visits. BP Readings from Last 10 Encounters: 05/12/23 95/60 05/04/23 96/60 04/25/23 122/74 04/14/23 118/72 04/13/23 112/54 03/30/23 100/64 03/24/23 98/56 03/16/23 102/64 02/28/23 133/73 02/23/23 104/68 * Telephone Encounter - Krystin Munroe RN - 05/17/2023 9:45 AM EST Could you please forward home weights and bps for past 2 weeks if you have them? Thanks. * Telephone Encounter - Krystin Munroe RN - 05/17/2023 9:44 AM EST ----- Message from Luz Tobias MD sent at 05/13/2023 8:35 PM EST ----- Regarding: wts w/ [facility] Can you pls get from them her weight trends past 2 wks and of BP if they have it documented in this encounter Plan of Treatment Upcoming Encounters Date Type Department Care Team (Late st Contact Info) Description 05/26/2023 2:00 PM EST Laboratory Laboratory, [place] [address] [place] [address] [place] [address] [place] [address] 05/27/2023 10:00 AM EST Home Visit [facility] [address] [facility] [address] Tatyana Delaney RN 132 [facility] [place] [address] 05/31/2023 1:30 PM EST Imaging Radiology [address] 132 [facility] [place] [address] 06/06/2023 2:40 PM EST Pharmacy Pharmacy, [place] [address] [place] [address] [facility] [address] [place] [address] 06/07/2023 1:20 PM EST Office Visit Sleep Disorders Ctr [facility] [address] [place] [address] Vira Byrd DO [address] [place] [address] 07/27/2023 3:00 PM EDT Office Visit Cardiology, [facility] [address] [facility] [place] [address] Wood Wong PA-C [address] [place] [address] 08/01/2023 2:00 PM EDT Laboratory Laboratory, [place] [address] [place] [address] [facility] [address] [place] [address] 08/02/2023 2:00 PM EDT Office Visit Rheumatology [address] [place] [address] Eliot Castelan CRNP [address] [place] [address] [place] [address] 08/08/2023 12:30 PM EDT Office Visit Hematology/Oncology [facility] [place] [address] [place] [address] Miguel A Alcantar MD [address] [place] [address] 08/18/2023 1:30 PM EDT Office Visit [facility]phrology, [facility] [address] [place] [address] Ana Lin PA-C [address] [place] [address] 10/11/2023 5:40 PM EDT Office Visit Family [facility] [address] [place] [facility] [address] David Umanzor MD [address] [place], [place] [address] 03/07/2024 1:00 PM EST Office Visit Cardiology, [facility] [address] [place] [id number] Manolo Mlilan MD [address] [place] [address] Scheduled Orders Name Type Priority Associated Diagnoses Orde r Schedule BASIC METABOLIC PANEL Lab Routine Stage 3a chronic kidney disease (HCC) Expected: 05/20/2023 (Approximate), Expires: 05/20/2024 Scheduled Procedures Name Priority Associated Diagnoses Date/Ti [...] Additional history exists CKD PHOS USE SMARTSET 96775 12/02/202311/10, 08/06/2022, 08/21/2021, Additional history exists CKD HGB USE SMARTSET 31887 03/25/202403/25, 03/25/2023, 02/28/2023, Additional history exists TSH [...] this encounter Medical Devices Implanted Type Area Finishing Range Operator Device Identifier Shelf Expiration Date Model / Serial / Lot [employer] Embosphere Micrspheres Implanted:Qty: 2 on 11/02/2019 by Ish Grove MD at [facility] Right: Abdomen [employer] 05/11/2022 S220GH / S220GH / [id number] Syr Pf 2ml Embospheres 100-300 - [id number] Implanted:Qty: 1 on 11/14/2020 at [facility] [employer] [id number] 08/22/2023 S220GH / / [id number] Envelope Antibacterial Tyrx - [id number] Implanted:Qty: 1 on 12/29/2021 by Fatoumata Roland DO at OR [facility] [employer] : CRM [id number] 09/23/2022 CMR M6122 / / [id number] Stent Synergy Xd Mr 3.11x07ys - [id number] Implanted:Qty: 1 on 03/22/2022 by Katalina Pearce MD at [facility] [employer] [id number] 07/17/2023 [id number] / / [id number] Valve Berhane 3 Ultra 26mm - [id number] Implanted:Qty: 1 on 12/09/2022 by Manolo Millan MD at [facility] [employer] [id number] 12/04/2023 [id number] / / documented as of this encounter Visit Diagnoses Diagnosis Stage 3a chronic kidney disease (HCC)- Primary documented in this encounter Advance Directives Latest [...] Code 03/22/2022 1:24 PM 03/23/2022 10:11 PM T his order reflects the patients wishes and were consensually agreed upon. Question Answer Comments Discussion of Advance Directives occurred with: Patient Does the patient have a Living Will? No Does the patient have Health Care Power of Inside Wirer? No Care Teams Jammer Hooker Relationship Specialty Start Date End Date David Umanzor MD [address] [facility] [place] [id number] PCP - General 02/25/09 documented as of this encounter
--- OUTSIDE RECORDS SUMMARY | 2023-05-28 21:24 | External Medical Summary | Summary of Care ---
Author Name Unknown Organization [facility] Address [address] [facility] [place] [address] Phone [phone] Care Team Providers Care Morning Show Newscast Producer Name Role Phone David Umanzor MD Primary Care Provider [phone] Reason for Referral * Evaluate & Treat - Unlimited Visits (Within 3 days (urgent)) - Authorized Specialty Diagnoses / Procedures Referred By Daphney burger Referred To Contact Quality Control Checker Diagnoses HTN, goal below 140/90 Stage 3a chronic kidney disease (HCC) Luigi Jeff MD [address] [place] [address] Referral ID Status Reason Start Date Expiration Date Visits Requested Visits Authorized [id number] Authorized Specialty Services Required 05/22/2023 999 999 Question Answer Referral Priority Within 3 days (urgent) Program Type [facility] Health Device(s) Requested BP Cuff Where should this appointment be scheduled? [facility] Al[facility] Settings Standard per protocol Comments Primary Quality Control Checker: Dion Delaney RN Is the patient already enrolled with another [facility] device/service? (If no, will need to "push the button") Yes Does the patient have a physical address? (If no, provide physical address if requesting device) Yes Requested Devices/IVR: Requested Device(s): Blood pressure Cuff Size: medium Target goal BP (eg less than 130/80): 130/80 High and Low Limits for Systolic AND Diastolic readings: Systolic Low 90 Systolic High 180 Diastolic Low 50 Diastolic High 100 Frequency of BP checks (eg, BID, daily, etc): Daily Begin Date: 05/22/2023 End Date (must be reevaluated at 8 weeks): 05/22/2023 + 8 weeks Requested Device(s): Pulse Oximeter Target range that will be used in [facility] as default is 95-100. This means the patient will trigger if the pulse oximeter result is less than 95% Frequency of pulse oximeter checks (eg, BID, daily, etc): Daily Start Date: 05/22/2023 Stop Date: 05/22/2023 + 8 weeks Reason for Visit * Reason Onset Date Comments [facility]: Maintenance 05/22/2023 Encounter Details Date Type Department Care Team (Latest Contact Info) Description 05/22/2023 4:00 PM EST Scheduled Telephone [facility], [facility] [address], [place] [id number] [facility], Nurse [facility] [address] [place] [address] HTN, goal below 140/90*; Stage 3a chronic kidney disease (HCC) Allergies Active Allergy Reactions Criticality Noted Date Comments Bactrim 02/09/2010 Cephalosporins Anaphylaxis,Edema face/lips/tongue High 04/11/2009 Anaphylaxis to cefaclor, facial swelling to cephalexin. Ciprofloxacin Low 03/30/2021 Other reaction(s): Nausea Butorphanol Tartrate 02/09/2010 Heart racing Sulfa Antibiotics Hives High 05/22/2002 Other reaction(s): Hives Trimethoprim 04/15/2022 Other reaction(s): Hives documented as of this encounter (statuses as of 05/22/2023) Medications Medication Sig Dispensed Refills Start Date [...] Active Fluticasone Propionate 50 MCG/ACT Nasal Suspension (Flonase)Indications:Payroll Accounting Manager sanket rhinitis ADMINISTER 2 SPRAYS IN EACH [...] daily 400 Each 3 3 Active Creon 64201-24889 UNIT Oral Capsule Delayed Release Particles (Pancrelipase (Uxf-Yerw-Ctyv))Indicatio ns:Pancreatic insufficiency TAKE ONE CAPSULE BY MOUTH [...] [facility]),Coronary artery disease involving [place] coronary artery of [place] heart without angina pectoris,Nonrheumatic aortic valve stenosis,Cardiac [...] ANXIETY 40 Tablet 1 4 Active Nystatin 209224 UNIT/GM External Powder (Nyamyc) APPLY TO AFFECTED [...] HYDROcodone-Acetaminophen 5-325 MG Oral TabletIndications: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 45 Tablet 0 4 Active documented as of this encounter (statuses as of 05/22/2023) Active Problems Problem Noted Date Diagnosed Date [...] to excess calories 0 08/09/2022 Atherosclerosis of [place] ar jania of left lower extremity with intermittent claudication 08/09/2022 Coronary artery disease invo lving [place] coronary artery of [place] heart with angina pectoris 03/22/2022 Last Assessment [...] 12/21/2016 Overview: Diabetic retinopathy Rheumatoid arthritis of [facility] sites without rheumatoid factor 01/26/2016 [...] -- AHI 17.1, significant hypoxia and PLMS [facility] Vitamin D deficiency 04/21/2011 Iron deficiency anemia 03/15/2011 Overview: ICD-10 update of inactive term Last Assessment & Plan: Last hemoglobin 11.4 on 08/06 -continue ferrous sulfate. Med list updated. High triglycerides 02/13/2004 Overview: TG's as high as 6400 Postsurgical hypothyroidism 02/13/2004 Last Assessment & Plan: Last TSH 0.9 on 04/13/2022 -continue Synthroid documented as of this encounter (statuses as of 05/22/2023) Resolved Problems Problem Noted Date Diagnosed Date [...] [facility] DETECT Study: Project # [id number], Meeting Planner: Manny Santacruz, PhD. SUMMARY: Goal: Establish test [...] contact study staff at ; after hours Meeting Planner via the [facility] button decorating machine operator . Please contact study team before resolving/deleting from patients problem list. Study phone number: [phone]. Diagnosis changed due to Research Module. Go to Snapshot for study details. Encounter for examination fo r normal comparison and control in clinical research program 11/08/2018 12/10/2021 Overview: DO NOT DELETE - [facility] DETECT Study: Project # [id number], Meeting Planner: Kevin Pearce, MS, MPH. SUMMARY: Goal: Establish [...] contact study staff at ; after hours Meeting Planner via the [facility] hospital button decorating machine operator . - Please contact study team before resolving/deleting from patients problem list. Study phone number: [phone]. Diagnosis changed due to Research Module. Go [...] as of this encounter (statuses as of 05/22/2023) Immunizations Name Administration Dates Next Due COVID-19 [...] as of this encounter Miscellaneous Notes * Addendum Note - Deepali Roberts RN - 05/22/2023 2:52 PM ESTAddended by: DEEPALI ROBERTS on: 05/22/2023 02:52 PM Modules accepted: Orders * Telephone Encounter - Deepali Roberts RN - 05/22/2023 2:34 PM EST Images from the original note were not included. [facility] ([facility]) Weight Trigger [facility] Data: Trigger Weight: 223.5 lbs; weight increased 8.8 lbs in 3 days. Symptom review: Increased or worsening SOB from baseline: No Increased or worsening cough from baseline: No Orthopnea: Sleeps in recliner Increased or worsening edema in BLE/abdominal fullness: Yes: BLE- reports that it is improved some Reviewed current diuretic use: Name of Medication: Torsemide 100 mg Dose: 1.5 tabs Frequency: Daily Patient has a DTP (Diuretic Titration Protocol (DTP) ordered: No Last DTP 05/03/23 x 5 days Metolazone 2.5 mg BP today 104/62 HR 57- PT is concerned with BP's Reports that PCP wanted to decrease diuretics. Pt is having weights and BP monitored HH RN and pt reports that it is to be sent to Nephrology. Discussed [facility] BP cuff and pt is agreeable as she is unable to see to write down BP readings. Diet review: Patient has had any foods high in sodium: No Fluid review: Fluid restriction: Yes, restriction amount in milliliters or liters: 2 l Yes, adherent to restriction: Yes Plan/Treatment: Continue to monitor Education Review: Reviewed HF symptom monitoring: -Weigh self daily in am, post-void and record -Do not add salt to food, avoid foods high in sodium -Limit fluids to 2 liters per day -Report the following: ->2 lb weight gain in one day or 5 lbs in a week to PCP -increased edema in feet, abdomen or hands -increased SOB and cough, especially if at night -increased fatigue or vertigo Call back instructions discussed with patient. documented in this encounter Plan of Treatment Upcoming Encounters Date Type Department Care Team (Late st Contact Info) Description 05/26/2023 2:00 PM EST Laboratory Laboratory, [place] [address] [place] [facility] [place] [id number] [facility] [address] [place] [address] 05/27/2023 10:00 AM EST [facility] [address] [facility] [address] Tatyana Delaney RN [address] [facility] [place] [address] 05/31/2023 1:30 PM EST Imaging Radiology [facility] [address] [facility] [address] 06/06/2023 2:40 PM EST Pharmacy Pharmacy, [place] [address] [place] [address] [facility] [address] [place] [address] 06/07/2023 1:20 PM EST Office [facility] [address] [facility] [phone] Viar Byrd DO [address] [facility] [address] 07/27/2023 3:00 PM EDT Office Visit [facility], [facility] [address] [facility] [place] [address] [address] PAMirandaC [address] [facility] [place] [address] 08/01/2023 2:00 PM EDT [facility], [place] [address] [facility] [phone] [facility] [address] [place] [address] 08/02/2023 2:00 PM EDT Office Visit Rheumatology [facility] [address] [facility] [place] [address] Eliot Castelan CRNP [address] [facility] [place] [address] 08/08/2023 12:30 PM EDT Office Visit Hematology/Oncology [facility] [address] [facility] [place] [address] Miguel A Alcantar MD [address] [facility] [place] [address] 08/18/2023 1:30 PM EDT Office Visit Nephrology, [facility] [address] [facility] [place] [address] Ana Lin PA-C [address] [facility] [place] [address] 10/11/2023 5:40 PM EDT Office Visit [facility] [address] [place] [address] David Umanzor MD [address] [place] [address] 03/07/2024 1:00 PM EST Office Visit Cardiology, [facility] [address] [place] [address] Manolo Millan MD [address] [place] [address] Scheduled Procedures Name Priority Associated Diagnoses Date/Ti me ECHOCARDIOGRAPHY, TRANSESOPH AGEAL; INCLUDING PROBE PLACEMENT, IMAGE ACQUISITION, INTERPRETATION AND REPORT Aortic valve stenosis, etiology of cardiac valve disease unspecified COLONOSCOPY FLEXIBLE PROXIMA L DIAGNOSTIC Recall History of colon polyps Scheduled Referrals Name Type Priority Associated Diagnoses Orde r Schedule REMOTE PATIENT MONITORING REFERRAL Referral Within 3 days (urgent) HTN, goal below 140/90 Stage 3a chronic kidney disease (HCC) Ordered: 05/22/2023 Health Maintenance Due Date Last Done Comments [...] Additional history exists CKD PHOS USE SMARTSET 29443 12/02/202311/10, 08/06/2022, 08/21/2021, Additional history exists CKD HGB USE SMARTSET 92399 03/25/202403/25, 03/25/2023, 02/28/2023, Additional history exists TSH [...] this encounter Medical Devices Implanted Type Area Pharmacy Benefit Manager Device Identifier Shelf Expiration Date Model / Serial / Lot Personal Factory Medical Embosphere Micrspheres Implanted:Qty: 2 on 11/02/2019 by Ish Grove MD at [facility] Right: Abdomen [employer] 05/11/2022 S220GH / [id number] / [id number] Syr Pf 2ml Embospheres 100-300 - [id number] Implanted:Qty: 1 on 11/14/2020 at [facility] [employer] [id number] 08/22/2023 [id number] / / [id number] Envelope Antibacterial Tyrx - [id number] Implanted:Qty: 1 on 12/29/2021 by Fatoumata Roland DO at [facility] [employer] : CRM [id number] 09/23/2022 CMR [id number] / / [id number] Stent Synergy Xd Mr 3.87y31de - [id number] Implanted:Qty: 1 on 03/22/2022 by Katalina Pearce MD at [facility] Self[employer]T [id number] 07/17/2023 [id number] / / [id number] Valve Berhane 3 Ultra 26mm - [id number] Implanted:Qty: 1 on 12/09/2022 by Manolo Millan MD at [facility] [employer] [id number] 12/04/2023 [id number] / / documented as of this encounter Visit Diagnoses Diagnosis HTN, goal below 140/90- Primary Unspecified essential hypertension Stage 3a chronic kidney disease (HCC) documented [...] the patient have Health Care Power of Tank Refinisher? No Care Teams Morning Show Newscast Producer Relationship Specialty Start Date End Date David Umanzor MD [address] [place] [address] PCP - General 02/25/09 documented as of this encounter
--- OUTSIDE RECORDS SUMMARY | 2023-05-28 21:24 | External Medical Summary | Summary of Care ---
Author Name Unknown Organization [facility] Address [address] [place] [address] Phone [phone] Care Team Providers Care Sales Enablement Specialist Name Role Phone David Umanzor MD Primary Care Provider [phone] Reason for Visit * Reason Onset Date Comments Home Health 02/22/2023 Encounter Details Date Type Department Care Team (Late st Contact Info) Description 02/22/2023 Telephone [facility] [address] [place] [address] David Umanzor MD [address] [place] [address] Home Health Allergies Active Allergy Reactions Criticality Noted Date Comments Bactrim 02/09/2010 Cephalosporins Anaphylaxis,Edema face/lips/tongue High 04/11/2009 Anaphylaxis to cefaclor, facial swelling to cephalexin. Ciprofloxacin Low 03/30/2021 Other reaction(s): Nausea Butorphanol Tartrate 02/09/2010 Heart racing Sulfa Antibiotics Hives High 05/22/2002 Other reaction(s): Hives Trimethoprim 04/15/2022 Other reaction(s): Hives documented as of this encounter (statuses as of 05/24/2023) Medications Medication Sig Dispensed Refills Start Date End Date Status TYLENOL ARTHRITIS PAIN 650 MG PO TBCRIndications:arthr itis Take by mouth as needed. 0 12/06/2007 Active NEBULIZER/TUBING/MOUT HPIECE KITIndications:Wheezi ng,Acute bronchitis, complicated use with nebs 1 pack 5 07/03/2009 Active MULTIVITAMIN/IRON PO TABS 1 daily 0 Active BIOTENE MOISTURIZING MOUTH MT SOLNIndications:Dry mouth use four times daily 1 Bottle 1 03/21/2012 Active Blood Glucose Monitoring Suppl (PRODIGY AUTOCODE BLOOD GLUCOSE) w/Device KITIndications:DM type 2 causing neurological disease, not at goal ([facility]) Test blood sugar 4 times daily Dx: E11.9 1 Kit 0 03/19/2019 Active PRODIGY LANCETS 28G MISCIndications:DM type 2, not at goal ([facility]) TEST BLOOD SUAGER 4 TIMES A DAY DX E11.9 500 Each 3 03/19/2019 Active Probiotic Daily Oral Capsule Take 1 Cap by mouth daily. 0 Active Nitroglycerin 0.4 MG Sublingual Tablet Sublingual (Nitrostat) 1tablet under tongue every 5 min as needed with chest pain up to 3 doses in 15 minutes 25 Tablet 3 03/23/2021 Active Meclizine HCl 25 MG Oral Tablet (Antivert)Indications :Vertigo TAKE 1 TAB BY MOUTH 3 TIMES A DAY NEEDED FOR DIZZINESS. 30 Tablet 1 05/13/2021 Active Melatonin 5 MG Oral CapsuleIndications:sl eep Take 1 Capsule by mouth at bedtime. 0 Active Ammonium Lactate 12 % External CreamIndications:feet Apply topically to affected area as needed . Every night 0 10/03/2021 Active Tamsulosin HCl 0.4 MG Oral Capsule Take 1 Capsule by mouth in the morning. Takes at bedtime . 0 Active Prodigy No Coding Blood Gluc In Vitro Strip (Glucose Blood)Indications:Typ e 2 diabetes mellitus with hemoglobin A1c goal of less than 7.0% ([facility]),Type 2 diabetes mellitus with stage 3 chronic kidney disease, with long-term current use of insulin, unspecified whether stage 3a or 3b CKD ([facility]),DM type 2 causing neurological disease, not at goal ([facility]) TEST BLOOD SUGAR UP TO FOUR TIMES DAILY 400 Strip 3 02/15/2022 Active Fluticasone Propionate 50 MCG/ACT Nasal Suspension (Flonase)Indications: Chronic rhinitis ADMINISTER 2 SPRAYS IN EACH NOSTRIL EACH MORNING 48 g 1 03/15/2022 Active tiZANidine HCl 2 MG Oral Tablet (Zanaflex)Indications :Hip pain, left TAKE 1 TABLET BY MOUTH EVERY 6 HOURS NEEDED FOR MUSCLE SPASM 30 Tablet 0 03/18/2022 Active Insulin Syringe-Needle U-100 31G X 5/16" 1 ML (ReliOn Insulin Syringe) USE WITH INSULIN 4 TIMES DAILY 400 Each 3 04/19/2022 Active Betaxolol HCl 0.5 % Ophthalmic Solution Instill 1 Drop into the left eye in the morning and 1 Drop before bedtime. 10 mL 5 06/02/2022 Active Brimonidine Tartrate 0.2 % Ophthalmic Solution (Alphagan) Instill 1 Drop into the left eye in the morning and 1 Drop before bedtime. 15 mL 3 06/03/2022 Active Folic Acid 1 MG Oral TabletIndications:Enc ounter for long-term (current) use of medications Take 1 Tablet by mouth in the morning. 90 Tablet 3 06/03/2022 Active BD Pen Needle Corinna U/F 32G X 4 MM (Insulin Pen Needle)Indications:Ty pe 2 diabetes mellitus with hyperosmolarity without coma, without long-term current use of insulin ([facility]) Use to inject insulin 4 times daily 400 Each 3 08/06/2022 Active Creon [address]23-[address] UNIT Oral Capsule Delayed Release Particles (Pancrelipase (Rfo-Irft-Tvhf))Indic ations:Pancreatic insufficiency TAKE ONE CAPSULE BY MOUTH WITH EACH MEAL AND SNACK (PT WANTD FOUR TIMES A DAY ALL CELLS) 120 Capsule 11 08/26/2022 Active Levothyroxine Sodium 125 MCG Oral Tablet (Levoxyl)Indications: Postsurgical hypothyroidism (NIP) TAKE ONE TABLET BY MOUTH EVERY MORNING AT LEAST 30 MINUTES PRIOR TO FIRST MEAL OF THE DAY 90 Tablet 2 08/27/2022 Active Rhopressa 0.02 % Ophthalmic Solution (Netarsudil Dimesylate) Instill 1 Drop into the left eye every night at bedtime. 2 mL 5 08/27/2022 Active NovoLOG FlexPen 100 UNIT/ML Subcutaneous Solution Pen-injector (insulin aspart)Indications:Ty pe 2 diabetes mellitus with hyperosmolarity without coma, without long-term current use of insulin (HCC) Inject 10 units with breakfast, 4 units with lunch, and 10 units with PM meal. Inject 4 units if BG is >200. 30 mL 5 09/30/2022 Active Acetaminophen 500 MG Oral TabletIndications:HFr EF (heart failure with reduced ejection fraction) (HCC),Coronary artery disease involving [place] coronary artery of [place] heart without angina pectoris,Nonrheumatic aortic valve stenosis,Cardiac pacemaker in situ,Tachy-wilfrido syndrome ([facility]) Take 1 Tablet by mouth at bedtime. 0 Active Latanoprost 0.005 % Ophthalmic Solution (Xalatan) Instill 1 Drop into both eyes at bedtime. Please dispense 90 day supply 7.5 mL 1 11/08/2022 Active Omeprazole 20 MG Oral Capsule Delayed Release (PriLOSEC)Indications :Gastroesophageal reflux disease, unspecified whether esophagitis present TAKE ONE CAPSULE BY MOUTH EVERY MORNING 90 Capsule 2 11/15/2022 Active CPAP 1 Device every night at bedtime. 0 Active Insulin Glargine Solostar 100 UNIT/ML Subcutaneous Solution Pen-injector (Lantus SoloStar)Indications: Type 2 diabetes mellitus with hyperosmolarity without coma, without long-term current use of insulin ([facility]) Inject 30 units daily 45 mL 1 12/17/2022 Active Aspirin 81 MG Oral Tablet Chewable Take 1 Tablet by mouth in the morning. 90 Tablet 3 01/14/2023 Active Atorvastatin Calcium 40 MG Oral Tablet (Lipitor)Indications: Dyslipidemia, goal LDL below 130 TAKE ONE TABLET BY MOUTH EVERY MORNING (PT TAKES DAILY AT BEDTIME) 90 Tablet 3 01/14/2023 Active Metoprolol Succinate ER 25 MG Oral Tablet Extended Release 24 Hour (Toprol XL) Take 0.5 Tablets by mouth 2 times a day. 90 Tablet 3 01/14/2023 Active Spironolactone 25 MG Oral Tablet (Aldactone) Take 1 Tablet by mouth in the morning. 90 Tablet 3 01/14/2023 Active Gabapentin 300 MG Oral Capsule (Neurontin)Indication s:Acute on chronic combined systolic and diastolic congestive heart failure ([facility]) Take 1 Capsule by mouth in the morning and 1 Capsule before bedtime. 180 Capsule 1 01/17/2023 Active Magnesium Oxide -Mg Supplement 400 (240 Mg) MG Oral Tablet (Mag-Ox) Take 1 Tablet by mouth in the morning. 90 Tablet 3 01/19/2023 Active Ferrous Sulfate 325 (65 Fe) MG Oral Tablet (Feosol) Take 1 Tablet by mouth daily with breakfast. 90 Tablet 3 02/15/2023 Active Potassium Chloride ER 20 MEQ Oral Tablet Extended ReleaseIndications:Ac court on chronic combined systolic and diastolic congestive heart failure ([facility]) Take 2 Tablets by mouth every morning AND 2 Tablets every evening. 360 Tablet 3 02/16/2023 Active Torsemide 100 MG Oral Tablet (Demadex) Take 1.5 Tablets by mouth in the morning. 135 Tablet 3 02/16/2023 Active Multivitamin Women 50+ Oral Tablet Take 1 tab by mouth daily 90 Tablet 3 02/17/2023 Active B-12 1000 MCG Oral Tablet Take 1 and 1/2 tabs by mouth daily 135 Tablet 3 02/17/2023 Active Vitamin C 500 MG Oral Tablet (Ascorbic Acid) Take 1 Tablet by mouth in the morning. 90 Tablet 3 02/17/2023 Active documented as of this encounter (statuses as of 05/24/2023) Active Problems Problem Noted Date Diagnosed Date [...] to excess calories 0 08/09/2022 Atherosclerosis of [place] ar jania of left lower extremity with intermittent claudication 08/09/2022 Coronary artery disease invo lving [place] coronary artery of [place] heart with angina pectoris 03/22/2022 Last Assessment [...] Rheumatoid arthritis of [facility] sites without rheumatoid factor 01/26/2016 Last Assessment [...] as of this encounter (statuses as of 05/24/2023) Resolved Problems Problem Noted Date Diagnosed Date [...] [facility] DETECT Study: Project # [id number], Thermometer Maker: Manny Santacruz, PhD. SUMMARY: Goal: Establish test [...] contact study staff at ; after hours Thermometer Maker via the [facility] [place] equalizing saw operator . Please contact study team before resolving/deleting from patients problem list. Study phone number: [phone]. Diagnosis changed due to Research Module. Go to Snapshot for study details. Encounter for examination fo r normal comparison and control in clinical research program 11/08/2018 12/10/2021 Overview: DO NOT DELETE - [facility] Study: Project # [id number], Thermometer Maker: Kevin Pearce, MS, MPH. SUMMARY: Goal: Establish [...] contact study staff at ; after hours Thermometer Maker via the [facility] equalizing saw operator . - Please contact study team before resolving/deleting from patients problem list. Study phone number: [phone]. Diagnosis changed due to Research Module. Go to A[employer]ata for study details. Food insecurity 08/21/2018 03/24/2023 [...] hypoxemia 03/31/2012 09/04/19 22 Overview: 06/06/12 CPAP -- low 89%, mean 95%, TUCKER 0 [...] as of this encounter (statuses as of 05/24/2023) Immunizations Name Administration Dates Next Due COVID-19 [...] encounter Miscellaneous Notes * Telephone Encounter - Cristina Andre LPN - 02/22/2023 4:43 PM EST HH Concerns Valentine RN, Calling from: [facility] Report/Concerns of: request addition visits for HH shelter Narrative: Valentine is adding visits for once a week for 2 additional weeks to see pt for continued medication education due to change in meds due to CHF and wt gain. She will check with insurance before placing order and sending to be signed off. This is FYI documented in this encounter Plan of Treatment Upcoming Encounters Date Type Department Care Team (Late st Contact Info) Description 05/26/2023 2:00 PM EST [facility], [place] [address] [facility] [phone] [facility] [address] [facility] [address] 05/27/2023 10:00 AM EST Home Visit [facility] [address] [facility] [place] [address] Tatyana Delaney RN [address] [facility] [place] [address] 05/31/2023 1:30 PM EST Imaging Radiology [address] [facility] [place] [address] 06/06/2023 2:40 PM EST Pharmacy Pharmacy, [place] [address] [facility] [address] [facility] [address] [place] [address] 06/07/2023 1:20 PM EST Office Visit [facility] [address] [place] [address] Vira Byrd, [address] [place] [address] 07/27/2023 3:00 PM EDT Office Visit Cardiology, [facility] [address] [facility] [place] [address] Wood Wong PAMirandaC [address] [place] [address] 08/01/2023 2:00 PM EDT Laboratory Laboratory, [place] [address] [place] [phone] [facility] [address] [place] [address] 08/02/2023 2:00 PM EDT Office Visit Rheumatology [place] [id number] [facility] [place] [address] Eliot Castelan CRNP [address] [facility] [place] [address] 08/08/2023 12:30 PM EDT Office Visit Hematology/Oncology [facility] [address] [place] [address] Miguel A Alcantar MD [address] [place] [address] 08/18/2023 1:30 PM EDT Office Visit Nephrology, [facility] [address] [place] [address] Ana Lin PAMirandaC [address] [place] [address] 10/11/2023 5:40 PM EDT Office Visit Family [facility] [address] [place] [id number] David Umanzor MD [address] [place] [address] 03/07/2024 1:00 PM EST Office Visit Cardiology, [facility] [address] [place] [address] Manolo Millan MD [address] [place] [address] Scheduled Procedures Name Priority Associated [...] 07/10, 07/20/2021, Additional history exists Albumin/Creatinine Ratio 09/08/202309/07/2 023, 08/06/2022, 05/13/2021, Additional history exists HbA1c 10/24/2023 04/25/2023, 07/11, 04/13/2022, Additional history exists GFR 11/10/2023 05/12/2023, 04/11, 04/14/2023, Additional history exists CKD PHOS USE SMARTSET 35708 12/02/202311/10, 08/06/2022, 08/21/2021, Additional history exists CKD HGB USE SMARTSET 10514 03/25/202403/25, 03/25/2023, 02/28/2023, Additional history exists TSH [...] this encounter Medical Devices Implanted Type Area Professor Sculpture Device Identifier Shelf Expiration Date Model / Serial / Lot Core Dynamics Embosphere Micrspheres Implanted:Qty: 2 on 11/02/2019 by Ish Grove MD at [facility] Right: Abdomen [employer] 05/11/2022 S220GH / [id number] / [id number] Syr Pf 2ml Embospheres 100-300 - [id number] Implanted:Qty: 1 on 11/14/2020 at [facility] [employer] [id number] 08/22/2023 [id number] / / [id number] Envelope Antibacterial Tyrx - [id number] Implanted:Qty: 1 on 12/29/2021 by Fatoumata Roland DO at [facility] [employer] : CRM [id number] 09/23/2022 CMR [id number] / / [id number] Stent Synergy Xd Mr 3.62x55er - [id number] Implanted:Qty: 1 on 03/22/2022 by Katalina Pearce MD at [facility] [employer] [id number] 07/17/2023 [id number] / / [id number] Valve Berhane 3 Ultra 26mm - [id number] Implanted:Qty: 1 on 12/09/2022 by Manolo Millan MD at [facility] [employer] [id number] 12/04/2023 [id number] / / documented as of this encounter [...] the patient have Health Care Power of Gum Mixer? No Care Teams Sales Enablement Specialist Relationship Specialty Start Date End Date David Umanzor MD [address] [place] [address] PCP - General 02/25/09 documented as of this encounter
--- OUTSIDE RECORDS SUMMARY | 2023-05-28 21:24 | External Medical Summary | Summary of Care ---
Author Name Unknown Organization [facility] Address [address] [place] [address] Phone [phone] Care Team Providers Care Oracle [employer]m Consultant Name Role Phone Millie Cage MD Primary Care Provider [phone]- [phone] Reason for Visit * Reason Comments eRx-Medication Refill Encounter Details Date Type Department Care Team (Late st Contact Info) Description 05/24/2023 Refill [facility] [address] [place] [address] Millie Cage MD [address] [place] [address] Encounter for long-term (current) use of medications Allergies Active Allergy Reactions Criticality Noted Date [...] 03/21/20 12 Active Blood Glucose Monitoring Suppl ([employer] AUTOCODE BLOOD GLUCOSE) w/Device KITIndications:DM type 2 [...] daily 400 Each 3 08/07/19 Active Creon 04489-38109 UNIT Oral Capsule Delayed Release Particles (Pancrelipase (Bis-Abwh-Nbpy))Indicati ons:Pancreatic insufficiency TAKE ONE CAPSULE BY MOUTH WITH EACH MEAL AND SNACK (PT WANTD FOUR TIMES A DAY ALL CELLS) 120 Capsule 11 08/27/19 Active Levothyroxine Sodium 125 MCG Oral Tablet (Levoxyl)Indications:Pos tsurgical hypothyroidism (NIP) TAKE ONE TABLET BY MOUTH EVERY MORNING AT LEAST 30 MINUTES PRIOR TO FIRST MEAL OF THE DAY 90 Tablet 2 08/28/19 Active Rhopressa 0.02 % Ophthalmic Solution (Netarsudil Dimesylate) Instill 1 Drop into the left eye every night at bedtime. 2 mL 08/28/19 23 Active NovoLOG FlexPen 100 UNIT/ML Subcutaneous Solution [...] ([facility]),Coronary artery disease involving little shell tribe coronary artery of little shell tribe heart without angina pectoris,Nonrheumatic aortic valve stenosis,Cardiac pacemaker in situ,Tachy-wilfrido syndrome (HCC) Take 1 Tablet by mouth at bedtime. 0 Active Latanoprost 0.005 % Ophthalmic Solution (Xalatan) Instill 1 Drop into both eyes at bedtime. Please dispense 90 day supply 7.5 mL 1 11/09/19 Active Omeprazole 20 MG Oral Capsule Delayed Release (PriLOSEC)Indications:Ga stroesophageal reflux disease, unspecified whether esophagitis present TAKE ONE CAPSULE BY MOUTH EVERY MORNING 90 Capsule 2 11/16/19 23 Active CPAP 1 Device every night at bedtime. 0 Active Insulin Glargine Solostar 100 UNIT/ML Subcutaneous Solution Pen-injector (Lantus SoloStar)Indications:Typ e 2 diabetes mellitus with hyperosmolarity without coma, without long-term current use of insulin ([facility]) Inject 30 units daily 45 mL 1 12/18/19 Active Aspirin 81 MG Oral Tablet Chewable Take 1 Tablet by mouth in the morning. 90 Tablet 3 01/15/20 23 Active Atorvastatin Calcium 40 MG Oral Tablet (Lipitor)Indications:Dys lipidemia, goal LDL below 130 TAKE ONE TABLET BY MOUTH EVERY MORNING (PT TAKES DAILY AT BEDTIME) 90 Tablet 3 01/15/20 23 Active Metoprolol Succinate ER 25 MG Oral Tablet Extended Release 24 Hour (Toprol XL) Take 0.5 Tablets by mouth 2 times a day. 90 Tablet 3 01/15/20 23 Active Spironolactone 25 MG Oral Tablet (Aldactone) Take 1 Tablet by mouth in the morning. 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 180 Capsule 1 01/18/20 23 Active Magnesium Oxide -Mg Supplement 400 (240 Mg) MG Oral Tablet (Mag-Ox) Take 1 Tablet by mouth in the morning. 90 Tablet 3 01/20/20 23 Active Ferrous Sulfate 325 (65 Fe) MG Oral Tablet (Feosol) Take 1 Tablet by mouth daily with breakfast. 90 Tablet 3 02/16/20 23 Active Potassium Chloride ER 20 MEQ Oral Tablet Extended ReleaseIndications:Acute on chronic combined systolic and diastolic congestive heart failure (HCC) Take 2 Tablets by mouth every morning AND 2 Tablets every evening. 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 45 Tablet 0 05/13/19 24 Active Folic Acid 1 MG Oral TabletIndications:Encoun ter for long-term (current) use of medications TAKE ONE TABLET BY MOUTH EVERY MORNING 90 Tablet 3 05/25/19 24 Active Folic Acid 1 MG Oral TabletIndications:Encoun ter for long-term (current) use of medications Take 1 Tablet by mouth in the morning. 90 Tablet 3 06/03/19 23 024 Discontinued documented as of this [...] to excess calories 0 08/09/2022 Atherosclerosis of little shell tribe ar jania of left lower extremity with intermittent claudication 08/09/2022 Coronary artery disease invo lving little shell tribe coronary artery of little shell tribe heart with angina pectoris 03/22/2022 Last Assessment [...] [facility] sites without rheumatoid factor 01/26/2016 Last Assessment [...] The Chronically Ill DETECT Study: Project # [id number], Sales Consultant Residential Manager: Manny Santacruz, PhD. SUMMARY: Goal: Establish test [...] contact study staff at ; after hours Sales Consultant Residential Manager via the [facility] hospital equalizer operator . Please contact study team before resolving/deleting from patients problem list. Study phone number: [phone]. Diagnosis changed due to Research Module. Go to [employer] for study details. Encounter for examination fo r normal comparison and control in clinical research program 11/08/2018 12/10/2021 Overview: DO NOT DELETE - [facility] Study: Project # [id number], Sales Consultant Residential Manager: Kevin Pearce, MS, MPH. SUMMARY: Goal: Establish [...] contact study staff at ; after hours Sales Consultant Residential Manager via the [facility] equalizer operator . - Please contact study team before resolving/deleting from patients problem list. Study phone number: [phone]. Diagnosis changed due to Research Module. Go to [employer] for study details. Food insecurity 08/21/2018 03/24/2023 [...] & above, IM , (FluLaval or Fluzone) 12/25/2019,02/08/2019,02/01/2018,0 06/2016,04/10/2009,04/06/2009 02/09/2020 Seasonal Influenza, Quadriva lent Hd [...] encounter Miscellaneous Notes * Telephone Encounter - Millie Cage MD - 05/25/2023 9:43 AM ESTSigned Prescriptions: Disp Refills Folic Acid 1 MG Oral Tablet 90 Tab*3 Sig: TAKE ONE TABLET BY MOUTH EVERY MORNINGAuthorizing Provider: MILLIE CAGE * Telephone Encounter - Hortensia Miles [facility] - 05/25/2023 9:13 AM ESTPending Prescriptions: Disp Refills Folic Acid 1 MG Oral Tablet 90 Tab*3 Sig: TAKE ONE TABLET BY MOUTH EVERY MORNING * Telephone Encounter - Hortensia Miles [facility] - 05/25/2023 9:13 AM EST Unable to authorize medication refills for pended medication(s) at this time. Part of the protocol criteria used for refill authorization was not satisfied. Patient needs CBC within normal limits. Please approve if appropriate. Thanks, Hortensia Miles Clinical Pharmacist [facility] ([facility]) ([facility]) [phone] 05/25/2023, 9:13 AM * Telephone Encounter - Hortensia Miles RPh - 05/25/2023 9:13 AM EST Did you pend patient's preferred pharmacy and medication before forwarding?yes [facility] [address] Pending Prescriptions: Disp Refills Folic Acid 1 MG Oral Tablet [Pharmacy Med*90 Tab*3 Sig: TAKE ONE TABLET BY MOUTH EVERY MORNING Last Visit: 04/25/2023 (in office), 07/15/2020 (telemedicine) Next Visit: 10/11/2023 If no future appointments scheduled, and last appointment is greater than a year ago, please schedule patient for a follow-up appointment Last date the medication was ordered: 06/03/22 Is this request for a controlled substance?No Urine Drug Screen:No results found. However, due to the size of the patient record, not all encounters were searched. Please check Results Review for a complete set of results. Patient Phone Numbers Labs: Lab Results Component Value Date/Time CREAT 1.9 (H) 05/12/2023 03:08 PM CREAT 1.17 03/31/2022 12:00 AM CREAT 1.1 (H) 04/28/2020 11:03 AM POTASSIUM 3.6 05/12/2023 03:08 PM POTASSIUM 3.9 03/31/2022 12:00 AM POTASSIUM 4.1 04/28/2020 11:03 AM TSH 1.58 04/25/2023 02:17 PM TSH 0.51 05/07/2019 03:34 PM LDLCALC 34 03/18/2022 02:07 PM LDLCALC UNINTERPRETABLE RESULT 04/24/2018 08:46 AM LDLDIRECT 24 04/14/2023 04:02 PM LDLDIRECT 52 04/28/2020 11:03 AM LDLDIRECT 47 05/07/2019 03:34 PM ALT 20 03/24/2023 01:20 PM ALT 17 04/28/2020 11:03 AM HGBA1C 7.7 (H) 04/25/2023 02:17 PM HGBA1C 6.9 (H) 04/28/2020 11:03 AM documented in this encounter Plan of Treatment Upcoming Encounters Date Type Department Care Team (Late st Contact Info) Description 05/26/2023 2:00 PM EST Laboratory Laboratory, [place] [address] [place] [address] [facility] [address] [place] [address] 05/27/2023 10:00 AM EST Home Visit [facility] [address] [place] [address] Tatyana Delaney RN [address] [facility] [place] [address] 05/31/2023 1:30 PM EST Imaging Radiology [facility] 1st [facility] [address] [facility] [place] [address] 06/06/2023 2:40 PM EST Pharmacy Pharmacy, [place] [address] [place] [address] [facility] [address] [place] [address] 06/07/2023 1:20 PM EST Office Visit [facility] Disorders Ctr [facility] [address] [facility] [place] [phone] Vira Byrd DO [address] [place] [address] 07/27/2023 3:00 PM EDT Office Visit Cardiology, [facility] [address] [place] [address] Wood Wong PA-C [address] [facility] [address] 08/01/2023 2:00 PM EDT Laboratory Laboratory, [place] [address] [place] [address] [facility] [address] [place] [address] 08/02/2023 2:00 PM EDT Office Visit Rheumatology [place] [address] [facility] [place], [place] [address] Eliot Castelan CRNP [facility] [place], [place] [address] 08/08/2023 12:30 PM EDT Office Visit Hematology/Oncology [facility] [address] [facility] [place] [address] Miguel A Alcantar MD [address] [facility] [place] [address] 08/18/2023 1:30 PM EDT Office Visit Nephrology, [facility] [address] [facility] [place] [address] Ana Lin PA-C [address] [facility] [place] [address] 10/11/2023 5:40 PM EDT Office Visit Family Practice, [place] [address] [place] [address] Millie Cage MD [address] [place] [address] 03/07/2024 1:00 PM EST Office Visit Cardiology, [facility] 132 [place] [address] Manolo Millan MD [address] [facility] [place] [address] Scheduled Procedures Name Priority Associated Diagnoses Date/Ti [...] Additional history exists CKD PHOS USE SMARTSET 06306 12/02/202311/10, 08/06/2022, 08/21/2021, Additional history exists CKD HGB USE SMARTSET 53419 03/25/202403/25, 03/25/2023, 02/28/2023, Additional history exists TSH [...] this encounter Medical Devices Implanted Type Area Data Warehouse Specialist Device Identifier Shelf Expiration Date Model / Serial / Lot BinWise Medical Embosphere Micrspheres Implanted:Qty: 2 on 11/02/2019 by Ish Grove MD at [facility] Right: Abdomen [employer] 05/11/2022 S220GH / [id number] / [id number] Syr Pf 2ml Embospheres 100-300 - [id number] Implanted:Qty: 1 on 11/14/2020 at [facility] [employer] [id number] 08/22/2023 S220GH / / [id number] Envelope Antibacterial Tyrx - [id number] Implanted:Qty: 1 on 12/29/2021 by Fatoumata Roland DO at OR [facility] [employer] : CRM [id number] 09/23/2022 CMR [id number] / / [id number] Stent Synergy Xd Mr 3.39p41zc - [id number] Implanted:Qty: 1 on 03/22/2022 by Katalina Pearce MD at [facility] [employer] [id number] 07/17/2023 [id number] / / [id number] Valve Berhane 3 Ultra 26mm - [id number] Implanted:Qty: 1 on 12/09/2022 by Manolo Millan MD at [facility] [employer] [id number] 12/04/2023 [id number] / / documented as of this encounter Visit Diagnoses Diagnosis Encounter for long-term (current) use of medications Encounter for long-term (current) use of other medications documented in this encounter Advance Directives Latest [...] the patient have Health Care Power of Slab Lifting Supervisor? No Care Teams [employer] Consultant Relationship Specialty Start Date End Date Millie Cage MD [address] [place] [address] PCP - General 02/25/09 documented as of this encounter
--- OUTSIDE RECORDS SUMMARY | 2023-05-28 21:24 | External Medical Summary | Summary of Care ---
Author Name Unknown Organization [facility] Address [address] [place] [address] Phone [phone] Care Team Providers Care Activities Counselor Name Role Phone David Umanzor MD Primary Care Provider [phone]- [phone] Reason for Visit * Reason Onset Date Comments [facility]: Acute 05/25/2023 Encounter Details Date Type Department Care Team (Late st Contact Info) Description 05/25/2023 Telephone [facility], [facility] [address] [facility] [place] [address] [facility], Nurse [facility] [address] [place] [address] [facility]: Acute Allergies Active Allergy [...] 1 2 Active Blood Glucose Monitoring Suppl ([employer] AUTOCODE BLOOD GLUCOSE) w/Device KITIndications:DM type 2 [...] Active Fluticasone Propionate 50 MCG/ACT Nasal Suspension (Flonase)Indications:Pastry Chef sanket rhinitis ADMINISTER 2 SPRAYS IN EACH [...] daily 400 Each 3 3 Active Creon 77139-16992 UNIT Oral Capsule Delayed Release Particles (Pancrelipase (Gqi-Vroa-Wnun))Indicatio ns:Pancreatic insufficiency TAKE ONE CAPSULE BY MOUTH [...] fraction) ([facility]),Coronary artery disease involving quileute coronary artery of quileute heart without angina pectoris,Nonrheumatic aortic valve stenosis,Cardiac [...] ANXIETY 40 Tablet 1 4 Active Nystatin 154084 UNIT/GM External Powder (Nyamyc) APPLY TO AFFECTED [...] HYDROcodone-Acetaminophen 5-325 MG Oral TabletIndications:Atheros clerosis of quileute artery of left lower extremity with intermittent [...] to excess calories 0 08/09/2022 Atherosclerosis of quileute ar jania of left lower extremity with intermittent claudication 08/09/2022 Coronary artery disease invo lving quileute coronary artery of quileute heart with angina pectoris 03/22/2022 Last Assessment & Plan: Stable. No angina. -continue aspirin, atorvastatin, metoprolol. Recently taken off lisinopril due to low BP. S/P primary angioplasty with coronary stent 03/11 Overview: S/P WALTER to mid LAD on 03/22/2022 Tachy-iwlfrido syndrome 12/29/2021 Last Assessment & Plan: Status [...] 12/21/2016 Overview: Diabetic retinopathy Rheumatoid arthritis of [facility] sites without rheumatoid factor 01/26/2016 Last [...] DELETE [facility] DETECT Study: Project # [id number], Yard Supervisor: Manny Santacruz, PhD. SUMMARY: Goal: Establish test [...] contact study staff at ; after hours Yard Supervisor via the [facility] hospital control area operator . Please contact study team before resolving/deleting from patients problem list. Study phone number: [phone]. Diagnosis changed due to Research Module. Go to [employer] for study details. Encounter for examination fo r normal comparison and control in clinical research program 11/08/2018 12/10/2021 Overview: DO NOT DELETE - [facility] Study: Project # [id number], Yard Supervisor: Kevin Pearce, MS, MPH. SUMMARY: Goal: Establish [...] contact study staff at ; after hours Yard Supervisor via the [facility] hospital control area operator . - Please contact study team before resolving/deleting from patients problem list. Study phone number: [phone]. Diagnosis changed due to Research Module. Go [...] from the original note were not included. [facility] at Home surveyor Acute Call Date: 05/25/2023 Time: 11:20 AM Name: Orquidea Valencia : 1950 Caller: Orquidea Relationship to : self HPI: Orquidae Valencia is a 73 year old female that is calling [employer] [facility] [employer] Intake to report on a [...] scheduled for same day: TBD Await [facility] recommendations Follow up phone call tomorrow Gayathri Malagon watershed coordinatorElectromedical Service Engineer [facility] documented in this encounter Plan of Treatment Upcoming Encounters Date Type Department Care Team (Late st Contact Info) Description 05/26/2023 2:00 PM EST Laboratory Laboratory, [place] [address] [place] [facility] [place] [address] [facility] [address] [place] [facility] [place] [address] 05/27/2023 10:00 AM EST Home Visit [facility] [address] [facility] [place] [address] Tatyana Delaney RN [address] [facility] [place] [address] 05/31/2023 1:30 PM EST Imaging Radiology [address] [facility] [place] [address] 06/06/2023 2:40 PM EST Pharmacy Pharmacy, [place] [address] [facility] [address] [place] [address] [facility] [address] 06/07/2023 1:20 PM EST Office Visit [facility] [address] [facility] [place] [phone] Vira Byrd, DO [address] [place] [address] 07/27/2023 3:00 PM EDT Office Visit Cardiology, [facility] [address] [facility] [place], [place] [address] Wood Wong PAMirandaC [address] [place] [address] 08/01/2023 2:00 PM EDT Laboratory Laboratory, [place] [address] [place] [address] [facility] [address] [place] [address] 08/02/2023 2:00 PM EDT Office Visit Rheumatology [facility] [address] [facility] [place] [address] Eliot Castelan CRNP [facility] [facility] [place] [address] 08/08/2023 12:30 PM EDT Office Visit Hematology/Oncology [facility] [address] [place] [address] Miguel A Alcantar MD [address] [facility] [address] [place] [address] 08/18/2023 1:30 PM EDT Office Visit Nephrology, [facility] [address] [place] [address] Ana Lin PA-C [address] [place] [address] 10/11/2023 5:40 PM EDT Office Visit Family [facility], [place] [address] [place] [facility] [place] [address] David Umanzor MD [address] [place] [address] 03/07/2024 1:00 PM EST Office Visit Cardiology, [facility] [address] [place] [address] Manolo Millan MD [address] [place] [address] Scheduled Procedures Name Priority Associated Diagnoses Date/Ti [...] Additional history exists CKD PHOS USE SMARTSET 41763 12/02/202311/10 06/2022, 08/06/2022, 08/21/2021, Additional history exists CKD HGB USE SMARTSET 46391 03/25/202403/25, 03/25/2023, 02/28/2023, Additional history exists TSH [...] this encounter Medical Devices Implanted Type Area Talent Advisor Device Identifier Shelf Expiration Date Model / Serial / Lot Join The Wellness Team Medical Embosphere Micrspheres Implanted:Qty: 2 on 11/02/2019 by Ish Grove MD at [facility] Right: Abdomen [employer] 05/11/2022 S220GH / S220GH / [id number] Syr Pf 2ml Embospheres 100-300 - [id number] Implanted:Qty: 1 on 11/14/2020 at [facility] [employer] [id number] 08/22/2023 S220GH / / [id number] Envelope Antibacterial Tyrx - [id number] Implanted:Qty: 1 on 12/29/2021 by Fatoumata Roland DO at OR [facility] [employer] : CRM [id number] 09/23/2022 CMR M6122 / / [id number] Stent Synergy Xd Mr [id number] - [id number] Implanted:Qty: 1 on 03/22/2022 by Katalina Pearce MD at [facility] [employer] [id number] 07/17/2023 [id number] / / [id number] Valve Berhane 3 Ultra 26mm - [id number] Implanted:Qty: 1 on 12/09/2022 by Manolo Millan MD at [facility] [employer] [id number] 12/04/2023 [id number] / / documented as of this encounter [...] the patient have Health Care Power of Dog Boarder? No Care Teams Activities Counselor Relationship Specialty Start Date End Date David Umanzor MD [address] [place] [address] PCP - General 02/25/09 documented as of this encounter
--- OUTSIDE RECORDS SUMMARY | 2023-05-28 21:24 | External Medical Summary | Summary of Care ---
Author Name Unknown Organization [facility] Address [address] [place] [address] Phone [phone] Care Team Providers Care Accounting Associate Name Role Phone David Umanzor MD Primary Care Provider [phone]- [phone] Encounter Details Date Type Department Care Team (Late st Contact Info) Description 05/22/2023 Result Scan Unspecified Department Fatoumata Roland, DO [address] [facility] [place] [address] <No scans attached> Allergies Active Allergy Reactions Criticality Noted Date [...] Active Fluticasone Propionate 50 MCG/ACT Nasal Suspension (Flonase)Indications:Partner Cco sanket rhinitis ADMINISTER 2 SPRAYS IN EACH [...] daily 400 Each 3 3 Active Creon 02388-19963 UNIT Oral Capsule Delayed Release Particles (Pancrelipase (Tub-Zokp-Snqx))Indicatio ns:Pancreatic insufficiency TAKE ONE CAPSULE BY MOUTH [...] [facility]),Coronary artery disease involving kaibab coronary artery of kaibab heart without angina pectoris,Nonrheumatic aortic valve stenosis,Cardiac [...] Active Gabapentin 300 MG Oral Capsule (Neurontin)Indications:Ac [place] on chronic combined systolic and diastolic congestive [...] ANXIETY 40 Tablet 1 4 Active Nystatin 317828 UNIT/GM External Powder (Nyamyc) APPLY TO AFFECTED [...] HYDROcodone-Acetaminophen 5-325 MG Oral TabletIndications:Atheros clerosis of kaibab artery of left lower extremity with intermittent [...] to excess calories 0 08/09/2022 Atherosclerosis of kaibab ar jania of left lower extremity with intermittent claudication 08/09/2022 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 SUMMARY: Goal: Establish test [...] contact study staff at ; after hours Bearing Grinder via the [facility] skoog patching machine operator . Please contact study team before resolving/deleting from patients problem list. Study phone number: [phone]. Diagnosis changed due to Research Module. Go to Snapshot for study details. Encounter for examination fo r normal comparison and control in clinical research program 11/08/2018 12/10/2021 Overview: DO NOT DELETE - [facility] Study: Project # [id number], Bearing Grinder: Kevin Pearce, MS, MPH. SUMMARY: Goal: Establish [...] contact study staff at ; after hours Bearing Grinder via the [facility] [place] skoog patching machine operator . - Please contact study team before resolving/deleting from patients problem list. Study phone number: [phone]. Diagnosis changed due to Research Module. Go to [employer] for study details. Food insecurity 08/21/2018 03/24/2023 [...] Description 05/26/2023 2:00 PM EST Laboratory [facility], [place] [address] [facility] [phone] [facility] [address] [place] [address] 05/27/2023 10:00 AM EST [facility] [address] [facility] [address] Tatyana Delaney, RN [address] [facility] [place] [address] 05/31/2023 1:30 PM EST Imaging Radiology [facility]st [facility] [address] [facility] [address] 06/06/2023 2:40 PM EST Pharmacy Pharmacy, [place] [address] [facility] [place] [address] [facility] [address] [place] [address] 06/07/2023 1:20 PM EST Office Visit [facility] [phone] Vira Byrd DO [address] [facility] [address] 07/27/2023 3:00 PM EDT Office Visit Cardiology, [facility] 132 [facility] [place] [address] Wood Wong PA-C 132 [facility] [place] [address] 08/01/2023 2:00 PM EDT Laboratory Laboratory, [place] [address] [facility] [phone] [facility] [address] [place] [address] 08/02/2023 2:00 PM EDT Office Visit Rheumatology [facility] [address] [facility] [address] Eliot Castelan CRNP [address] [facility] [place] [address] 08/08/2023 12:30 PM EDT Office Visit Hematology/Oncology [facility] [address] [facility] [place] [address] Miguel A Alcantar MD [address] [facility] [place] [address] 08/18/2023 1:30 PM EDT Office Visit Nephrology, [facility] [address] [facility] [place] [address] Ana Lin PA-C [address] [facility] [place] [address] 10/11/2023 5:40 PM EDT Office Visit Family [facility] [address] [place] [phone] David Umanzor MD [address] [place] [address] 03/07/2024 1:00 PM EST Office Visit Cardiology, [facility] [address] [place] [address] Manolo Millan MD [address] [place] [address] Scheduled Procedures Name Priority Associated [...] 12/15/2018, Additional history exists COVID-19 Vaccine ( - 2022- season) 2022 06/08/2021, 12/17/2020, 06/23/2020, Additional history exists Diabetic Eye Exam 05/27/2023 05/27/2022, , 05/27/2022, Additional history exists Mammogram 07/28/2023 07/27/2022, 07/10, 07/20/2021, Additional history exists Albumin/Creatinine Ratio 09/08/2023 023, 08/06/2022, 05/13/2021, Additional history exists HbA1c 10/24/2023 04/25/2023, 07/11, 04/13/2022, Additional history exists GFR 11/10/2023 05/12/2023, 04/11, 04/14/2023, Additional history exists CKD PHOS USE SMARTSET 05288 12/02/202311/10, 08/06/2022, 08/21/2021, Additional history exists CKD HGB USE SMARTSET 29195 03/25/202403/25, 03/25/2023, 02/28/2023, Additional history exists TSH 04/25/2024 04/25/2023, /06/2022, 05/13/2021, Additional history exists DXA Scan 08/26/2025 [...] this encounter Medical Devices Implanted Type Area Assisted Living Assistant Device Identifier Shelf Expiration Date Model / Serial / Lot Financial Guard Medical Embosphere Micrspheres Implanted:Qty: 2 on 11/02/2019 by Ish Grove MD at [facility] Right: Abdomen [employer] 05/11/2022 S220GH / [id number] / [id number] Syr Pf 2ml Embospheres 100-300 - [id number] Implanted:Qty: 1 on 11/14/2020 at [facility] [employer] [id number] 08/22/2023 S220GH / / [id number] Envelope Antibacterial Tyrx - [id number] Implanted:Qty: 1 on 12/29/2021 by Fatoumata Roland DO at OR [facility] [employer] : CRM [id number] 09/23/2022 CMR [id number] / / [id number] Stent Synergy Xd Mr 3.51x36jl - [id number] Implanted:Qty: 1 on 03/22/2022 by Katalina Pearce MD at [facility] [place] [employer] [id number] 07/17/2023 [id number] / / [id number] Valve Berhane 3 Ultra 26mm - [id number] Implanted:Qty: 1 on 12/09/2022 by Manolo Millan MD at [facility] [employer] [id number] 12/04/2023 [id number] / / documented as of this encounter Procedures Procedure Name Priority Date/Time Associated Diagnosis Comments CARDIOLOGY SCANNED RESULT 05/22/2023 documented in this encounter Results * CARDIOLOGY SCANNED RESULT (05/22/2023) 05/22/2023 Fatoumata Roland DO OTHER documented in this encounter Advance Directives Latest [...] the patient have Health Care Power of Assistant Sales Manager? No Care Teams Accounting Associate Relationship Specialty Start Date End Date David Umanzor MD [address] [place] [address] PCP - General 02/25/09 documented as of this encounter
--- OUTSIDE RECORDS SUMMARY | 2023-05-28 21:24 | External Medical Summary | Summary of Care ---
Author Name Unknown Organization [facility] Address [address] [place] [facility] [place] [address] Phone [phone] Care Team Providers Care Electrical Maintenance Supervisor Name Role Phone David Umanzor MD Primary Care Provider [phone]- [phone] Reason for Referral * Evaluate & Treat - Unlimited Visits (Within 3 days (urgent)) - Authorized Specialty Diagnoses / Procedures Referred By Daphney burger Referred To Contact Proof Operator Diagnoses HTN, goal below 140/90 Stage 3a chronic kidney disease (HCC) Luigi Jeff MD [address] [place] [address] Referral ID Status Reason Start Date Expiration Date Visits Requested Visits Authorized [id number] Authorized Specialty Services Required 05/22/2023 999 999 Question Answer Referral Priority Within 3 days (urgent) Program Type [facility] Health Device(s) Requested BP Cuff Where should this appointment be scheduled? [facility] Alarm Settings Standard per protocol Comments Primary Proof Operator: Dion Delaney RN Is the patient already enrolled with another [facility] device/service? (If no, will need to [...] PM EST Scheduled Telephone [facility], [facility] [address] [place], [place] [phone] [facility], Nurse [facility] [address] [place] [address] HTN, goal below 140/90*; Stage 3a chronic [...] neurological disease, not at goal ([facility]) Test blood sugar 4 times daily Dx: E11.9 1 Kit 0 9 Active PRODIGY LANCETS 28G MISCIndications:DM type 2, not at goal ([facility]) TEST BLOOD SUAGER 4 TIMES [...] goal of less than 7.0% ([facility]),Type 2 diabetes mellitus with stage 3 chronic kidney disease, with long-term current use of insulin, unspecified whether stage 3a or 3b CKD ([facility]),DM type 2 causing neurological disease, not at goal ([facility]) TEST BLOOD SUGAR UP TO FOUR TIMES DAILY 400 Strip 3 2 Active Fluticasone Propionate 50 MCG/ACT Nasal Suspension (Flonase)Indications:Pile Driver Operator sanket rhinitis ADMINISTER 2 SPRAYS IN [...] long-term current use of insulin ([facility]) Use to inject insulin 4 times daily 400 Each 3 3 Active Creon 90209-41571 UNIT Oral Capsule Delayed Release Particles (Pancrelipase (Djb-Vidh-Bukz))Indicatio ns:Pancreatic insufficiency TAKE ONE CAPSULE BY MOUTH [...] long-term current use of insulin ([facility]) Inject 10 units with breakfast, 4 units with lunch, and 10 units with PM meal. Inject 4 units if BG is >200. 30 mL 5 3 Active Acetaminophen 500 MG Oral TabletIndications:HFrEF (heart failure with reduced ejection fraction) ([facility]),Coronary artery disease involving mashpee coronary artery of mashpee heart without angina pectoris,Nonrheumatic aortic valve stenosis,Cardiac pacemaker in situ,Tachy-wilfrido syndrome ([facility]) Take 1 Tablet by mouth [...] long-term current use of insulin ([facility]) Inject 30 units daily 45 [...] ANXIETY 40 Tablet 1 4 Active Nystatin 397930 UNIT/GM External Powder (Nyamyc) APPLY TO AFFECTED [...] HYDROcodone-Acetaminophen 5-325 MG Oral TabletIndications:Atheros clerosis of mash[place] artery of left lower extremity with intermittent [...] to excess calories 0 08/09/2022 Atherosclerosis of mashpee ar jania of left lower extremity with intermittent claudication 08/09/2022 Coronary artery disease invo lving mashpee coronary artery of mashpee heart with angina pectoris 03/22/2022 Last Assessment [...] 12/21/2016 Overview: Diabetic retinopathy Rheumatoid arthritis of [facility] sites without rheumatoid factor 01/26/2016 Last Assessment [...] -- AHI 17.1, significant hypoxia and PLMS [facility] Vitamin D deficiency 04/21/2011 Iron deficiency anemia [...] [facility] DETECT Study: Project # [id number], Aircraft Refueler: Manny Santacruz, PhD. SUMMARY: Goal: Establish test [...] contact study staff at ; after hours Aircraft Refueler via the [facility] refined syrup operator . Please contact study team before resolving/deleting from patients problem list. Study phone number: [phone]. Diagnosis changed due to Research Module. Go to Snapshot for study details. Encounter for examination fo r normal comparison and control in clinical research program 11/08/2018 12/10/2021 Overview: DO NOT DELETE - [facility] DETECT Study: Project # [id number], Aircraft Refueler: Kevin Pearce, MS, MPH. SUMMARY: Goal: Establish [...] contact study staff at ; after hours Aircraft Refueler via the [facility] refined syrup operator . - Please contact study team before resolving/deleting from patients problem list. Study phone number: [phone]. Diagnosis changed due to Research Module. Go [...] included. [facility] ([facility]) Weight Trigger [facility] Data: Trigger Weight: 223.5 lbs; weight [...] is to be sent to Nephrology. Discussed [facility] BP cuff and pt is agreeable [...] Description 05/26/2023 2:00 PM EST Laboratory Laboratory, [place] [address] [place] [facility] [place] [phone] [facility] [address] [place] [address] 05/27/2023 10:00 AM EST Home Visit [facility]ing at [facility] [address] [facility] [address] Tatyana Delaney RN 132 [facility] [place] [address] 05/31/2023 1:30 PM EST Imaging Radiology [facility] 1st [facility] [address] [facility] [address] 06/06/2023 2:40 PM EST Pharmacy Pharmacy, [place] [address] [place] [address] [facility] [address] [place] [address] 06/07/2023 1:20 PM EST Office Visit [facility] [phone] Vira Byrd DO [address] [facility] [address] 07/27/2023 3:00 PM EDT Office Visit Cardiology, [facility] [address] Wood Wong PAMirandaC [facility] [address] 08/01/2023 2:00 PM EDT Laboratory Laboratory, [place] [address] [facility] [phone] [facility] [address] [place] [address] 08/02/2023 2:00 PM EDT Office Visit Rheumatology [facility] [address] [facility] [place] [address] Eliot Castelan CRNP [address] [facility] [place] [address] 08/08/2023 12:30 PM EDT Office Visit Hematology/Oncology [facility] [address] [place] [address] Miguel A Alcantar MD [address] [facility] [place] [address] 08/18/2023 1:30 PM EDT [facility] [address] [facility] [place] [address] Ana Lin PA-C [address] [facility] [place] [address] 10/11/2023 5:40 PM EDT Office Visit [facility] [address] [place] [address] David Umanzor MD [address] [place] [address] 03/07/2024 1:00 PM EST Office Visit Cardiology, [facility] [address] [place] [address] Manolo Millan MD [address] [place] [address] Scheduled Procedures Name Priority Associated [...] Additional history exists CKD PHOS USE SMARTSET 94537 12/02/202311/10, 08/06/2022, 08/21/2021, Additional history exists CKD HGB USE SMARTSET 55995 03/25/202403/25, 03/25/2023, 02/28/2023, Additional history exists TSH [...] this encounter Medical Devices Implanted Type Area Emt Intermediate Device Identifier Shelf Expiration Date Model / Serial / Lot Flirtomatic Medical Embosphere Micrspheres Implanted:Qty: 2 on 11/02/2019 by Ish Grove MD at [facility] Right: Abdomen Hang w/ [employer] 05/11/2022 S220GH / S220GH / [id number] Syr Pf 2ml Embospheres 100-300 - [id number] Implanted:Qty: 1 on 11/14/2020 at [facility] Hang w/ [employer] [id number] 08/22/2023 S220GH / / [id number] Envelope Antibacterial Tyrx - [id number] Implanted:Qty: 1 on 12/29/2021 by Fatoumata Roland DO at OR [facility] [employer] : CRM [id number] 09/23/2022 CMR M6122 / / [id number] Stent Synergy Xd Mr 3.18w39is - [id number] Implanted:Qty: 1 on 03/22/2022 by Katalina Pearce MD [place] [facility] [employer] [id number] 07/17/2023 [id number] / / [id number] Valve Berhane 3 Ultra 26mm - [id number] Implanted:Qty: 1 on 12/09/2022 by Manolo Millan MD at [facility] [employer] [id number] 12/04/2023 [id number] / / documented as of this encounter [...] the patient have Health Care Power of Salesperson Surgical Appliances? No Care Teams Electrical Maintenance Supervisor Relationship Specialty Start Date End Date David Umanzor MD [address] [place] [address] PCP - General 02/25/09 documented as of this encounter
--- OUTSIDE RECORDS SUMMARY | 2023-05-28 21:25 | External Medical Summary | Summary of Care ---
Author Name Unknown Organization [facility] Address [address] [place] [place] [address] Phone [phone] Care Team Providers Care Power Washer Name Role Phone David Umanzor MD Primary Care Provider [phone]- [phone] Reason for Visit * Reason Onset Date Comments Information 05/17/2023 Encounter Details Date Type Department Care Team (Late st Contact Info) Description 05/17/2023 Telephone NephrologyRaphael Bennington [address] [place] [address] TobiasLuz jacques MD [address] [place] [address] Information Allergies Active Allergy Reactions Criticality Noted [...] Active Fluticasone Propionate 50 MCG/ACT Nasal Suspension (Flonase)Indications:Quality Control Lab Tech sanket rhinitis ADMINISTER 2 SPRAYS IN EACH [...] daily 400 Each 3 3 Active Creon 55401-69151 UNIT Oral Capsule Delayed Release Particles (Pancrelipase (Bdp-Avfy-Gvff))Indicatio ns:Pancreatic insufficiency TAKE ONE CAPSULE BY MOUTH [...] ([facility]),Coronary artery disease involving [place] coronary artery of [place] heart without angina pectoris,Nonrheumatic aortic valve stenosis,Cardiac [...] Active Gabapentin 300 MG Oral Capsule (Neurontin)Indications:Ac grayling on chronic combined systolic and diastolic congestive [...] ANXIETY 40 Tablet 1 4 Active Nystatin 305845 UNIT/GM External Powder (Nyamyc) APPLY TO AFFECTED [...] HYDROcodone-Acetaminophen 5-325 MG Oral TabletIndications:Atheros clerosis of [place] artery of left lower extremity with intermittent [...] to excess calories 0 08/09/2022 Atherosclerosis of [place] ar jania of left lower extremity with intermittent claudication 08/09/2022 Coronary artery disease invo lving [place] coronary artery of [place] heart with angina pectoris 03/22/2022 Last Assessment [...] 12/21/2016 Overview: Diabetic retinopathy Rheumatoid arthritis of [facility] without rheumatoid factor 01/26/2016 Last [...] DELETE [facility] DETECT Study: Project # [id number], Multi Disciplined Language Analyst: Manny Santacruz, PhD. SUMMARY: Goal: Establish test [...] contact study staff at ; after hours Multi Disciplined Language Analyst via the [facility] gas scrubber operator . Please contact study team before resolving/deleting from patients problem list. Study phone number: [phone]. Diagnosis changed due to Research Module. Go to Snapshot for study details. Encounter for examination fo r normal comparison and control in clinical research program 11/08/2018 12/10/2021 Overview: DO NOT DELETE - [facility] Study: Project # [id number], Multi Disciplined Language Analyst: Kevin Pearce, MS, MPH. SUMMARY: Goal: Establish [...] contact study staff at ; after hours Multi Disciplined Language Analyst via the [facility] gas scrubber operator . - Please contact study team before resolving/deleting from patients problem list. Study phone number: [phone]. Diagnosis changed due to Research Module. Go [...] encounter Miscellaneous Notes * Telephone Encounter - Becky Shelton LPN - 05/20/2023 3:16 PM EST [...] call. Please call her back when available. [phone] * Telephone Encounter - Becky Shelton LPN - 05/20/2023 2:44 PM EST LMM om Cell phone and home phone voice mail to return call to office regarding Test results * Telephone Encounter - Tatyana Delaney RN - 05/20/2023 7:59 AM EST I am seeing pt on 05/27. Pt has [facility] going several times a week [...] Description 05/26/2023 2:00 PM EST Laboratory [facility], [place] [address] [facility] [phone] [facility] [address] [place] [facility] [place] [address] 05/27/2023 10:00 AM EST [facility], [facility] [address] [facility] [place] [address] Tatyana Delaney, RN [address] [facility] [address] 05/31/2023 1:30 PM EST Imaging Radiology [facility] [address]st [facility] [address] [facility] [place] [address] 06/06/2023 2:40 PM EST Pharmacy Pharmacy, [place] [address] [facility] [address] [facility] [address] [facility] [facility] [address] 06/07/2023 1:20 PM EST Office Visit Sleep Disorders Ctr [facility] [address] [facility] [phone] Vira Byrd DO 132 [facility] [place] [address] 07/27/2023 3:00 PM EDT Office Visit Cardiology, [facility] [address] [facility] [place] [address] Wood Wong PA-C [address] [facility] [place] [address] 08/01/2023 2:00 PM EDT Laboratory Laboratory, [place] [address] [facility] [place] [phone] [facility] [address] [place] [address] 08/02/2023 2:00 PM EDT Office Visit Rheumatology [facility] [address] [facility] [place] [address] Eliot Castelan CRNP [address] [facility] [place] [address] 08/08/2023 12:30 PM EDT Office Visit Hematology/Oncology [facility] [address] [facility] [place] [address] Miguel A Alcantar MD [address] [facility] [place] [address] 08/18/2023 1:30 PM EDT Office Visit Nephrology, [facility] [address] [facility] [place] [address] Ana Lin PA-C [address] [facility] [place] [address] 10/11/2023 5:40 PM EDT Office Visit Family [facility] [address] [place] [phone] David Umanzor MD [address] [place] [address] 03/07/2024 1:00 PM EST Office Visit Cardiology, [facility] [address] [place], [place] [phone] Manolo Millan MD [address] [place] [address] Scheduled Procedures Name Priority Associated [...] Additional history exists CKD PHOS USE SMARTSET 46396 12/02/202311/10, 08/06/2022, 08/21/2021, Additional history exists CKD HGB USE SMARTSET 98165 03/25/202403/25, 03/25/2023, 02/28/2023, Additional history exists TSH [...] this encounter Medical Devices Implanted Type Area Ela Teacher Device Identifier Shelf Expiration Date Model / Serial / Lot GuiaBolso Embosphere Micrspheres Implanted:Qty: 2 on 11/02/2019 by Ish Grove MD at [facility] Right: Abdomen [employer] 05/11/2022 S220GH / S220GH / [id number] Syr Pf 2ml Embospheres 100-300 - [id number] Implanted:Qty: 1 on 11/14/2020 at [facility] [employer] [id number] 08/22/2023 S220GH / / [id number] Envelope Antibacterial Tyrx - [id number] Implanted:Qty: 1 on 12/29/2021 by Fatoumata Roland DO at [facility] [employer] : CRM [id number] 09/23/2022 CMR [id number] / / [id number] Stent Synergy Xd Mr 3.07k73xn - [id number] Implanted:Qty: 1 on 03/22/2022 by Katalina Pearce MD at [facility] [employer] [id number] 07/17/2023 [id number] / / [id number] Valve Berhane 3 Ultra 26mm - [id number] Implanted:Qty: 1 on 12/09/2022 by Manolo Millan MD at [facility] [employer] [id number] 12/04/2023 [id number] / / documented as of this encounter [...] the patient have Health Care Power of Dimension Warehouse Supervisor? No Care Teams Power Washer Relationship Specialty Start Date End Date David Umanzor MD [address] [place] [address] PCP - General 02/25/09 documented as of this encounter
--- OUTSIDE RECORDS SUMMARY | 2023-05-28 21:25 | External Medical Summary | Summary of Care ---
Author Name Unknown Organization [facility] Address [address] [place] [facility] [place] [address] Phone [phone] Care Team Providers Care State Fire Marshal Name Role Phone David Umanzor MD Primary Care Provider [phone]- [phone] Reason for Visit * Reason Onset Date Comments Information 05/17/2023 Encounter Details Date Type Department Care Team (Late st Contact Info) Description 05/17/2023 Telephone NephrologyRaphael Wyocena [address] [place] [address] TobiasLuz jacques MD [address] [place] [address] Information Allergies Active Allergy Reactions Criticality Noted [...] Active Fluticasone Propionate 50 MCG/ACT Nasal Suspension (Flonase)Indications:Clinical Account Manager sanket rhinitis ADMINISTER 2 SPRAYS IN [...] daily 400 Each 3 3 Active Creon 68167-81569 UNIT Oral Capsule Delayed Release Particles (Pancrelipase (Cra-Soin-Lzad))Indicatio ns:Pancreatic insufficiency TAKE ONE CAPSULE BY MOUTH [...] fraction) ([facility]),Coronary artery disease involving [place] coronary artery of match-e-be-n[place] band heart without angina pectoris,Nonrheumatic aortic valve stenosis,Cardiac [...] Active Gabapentin 300 MG Oral Capsule (Neurontin)Indications:Ac king salmon on chronic combined systolic and diastolic congestive [...] ANXIETY 40 Tablet 1 4 Active Nystatin 458423 UNIT/GM External Powder (Nyamyc) APPLY TO AFFECTED [...] HYDROcodone-Acetaminophen 5-325 MG Oral TabletIndications:Atheros clerosis of match-[place] artery of left lower extremity with intermittent [...] to excess calories 0 08/09/2022 Atherosclerosis of match-e-[place] band ar jania of left lower extremity with intermittent claudication 08/09/2022 Coronary artery disease invo lving match-e-be-nash-she-wish band coronary artery of match-e-be-nash-she-wish band heart with angina pectoris 03/22/2022 Last Assessment [...] 11/08/2018 11/12/2019 Overview: DO NOT DELETE [facility] DETECT Study: Project # [id number], Psychologist Counseling: Manny Santacruz, PhD. SUMMARY: Goal: Establish test [...] contact study staff at ; after hours Psychologist Counseling via the [facility] carbon dioxide operator . Please contact study team before resolving/deleting from patients problem list. Study phone number: [phone]. Diagnosis changed due to Research Module. Go to Snapshot for study details. Encounter for examination fo r normal comparison and control in clinical research program 11/08/2018 12/10/2021 Overview: DO NOT DELETE - [facility] Study: Project # [id number], Psychologist Counseling: Kevin Pearce, MS, MPH. SUMMARY: Goal: Establish [...] contact study staff at ; after hours Psychologist Counseling via the [facility] carbon dioxide operator . - Please contact study team before resolving/deleting from patients problem list. Study phone number: [phone]. Diagnosis changed due to Research Module. Go [...] encounter Miscellaneous Notes * Addendum Note - Андрей Shelton LPN - 05/20/2023 3:54 PM ESTAddended by: АНДРЕЙ SHELTON on: 05/20/2023 03:54 PM Modules accepted: Orders * Telephone Encounter - Андрей Shelton LPN - 05/20/2023 3:52 PM EST Lab orders placed for BMP in [facility] lab system Will await MD response on [...] call. Please call her back when available. [phone] * Telephone Encounter - Андрей Shelton LPN - 05/20/2023 2:44 PM EST LMM om Cell phone and home phone voice mail to return call to office regarding Test results * Telephone Encounter - Tatyana Delaney RN - 05/20/2023 7:59 AM EST I am seeing pt on 05/27. Pt has [facility] going several times a week [...] Description 05/26/2023 2:00 PM EST Laboratory Laboratory, [place] [address] [place] [facility] [address] [facility] [address] [place] [address] 05/27/2023 10:00 AM EST [facility] Visit [facility] [place], [facility] [address] [facility] [place] [address] Tatyana Delaney RN 132 [facility] [place] [address] 05/31/2023 1:30 PM EST Imaging Radiology [facility] 1st [facility] [address] [facility] [place] [address] 06/06/2023 2:40 PM EST Pharmacy Pharmacy, [place] [address] [place] [facility] [place] [address] [place] [facility] [address] [facility] [address] 06/07/2023 1:20 PM EST Office Visit Sleep Disorders Ctr [facility] [address] [facility] [place] [phone] Vira Byrd, DO [address] [place] [address] 07/27/2023 3:00 PM EDT Office Visit Cardiology, [facility] [address] [place] [address] Wood Wong, PA-C [address] [place] [address] 08/01/2023 2:00 PM EDT Laboratory Laboratory, [place] [address] [place] [address] [facility] [address] [place] [address] 08/02/2023 2:00 PM EDT Office Visit Rheumatology [facility] [address] [facility] [place] [address] Eliot Castelan CRNP [address] [facility] [place] [address] 08/08/2023 12:30 PM EDT Office Visit Hematology/Oncology [facility] [place] [address] [facility] [place] [address] Miguel A Alcantar MD [address] [facility] [place] [address] 08/18/2023 1:30 PM EDT Office Visit Nephrology, [facility] [address] [place] [address] ZeAna sanchez PAMirandaC 200 [facility] [place] [address] 10/11/2023 5:40 PM EDT Office Visit Family [facility], [place] [address] [facility] [address] David Umanzor MD [address] [place] [address] 03/07/2024 1:00 PM EST Office Visit Cardiology, [facility] [address] [facility] [place] [address] Manolo Millan MD [address] [place] [address] Scheduled Orders Name Type Priority Associated Diagnoses [...] Additional history exists CKD PHOS USE SMARTSET 13609 12/02/202311/10, 08/06/2022, 08/21/2021, Additional history exists CKD HGB USE SMARTSET 56595 03/25/202403/25, 03/25/2023, 02/28/2023, Additional history exists TSH [...] encounter Medical Devices Implanted Type Area Director Of Guidance Device Identifier Shelf Expiration Date Model / Serial / Lot [employer] Medical Embosphere Micrspheres Implanted:Qty: 2 on 11/02/2019 by Ish Grove MD at [facility] Right: Abdomen [employer] 05/11/2022 S220GH / S220GH / [id number] Syr Pf 2ml Embospheres 100-300 - [id number] Implanted:Qty: 1 on 11/14/2020 at [facility] [employer] [id number] 08/22/2023 S220GH / / [id number] Envelope Antibacterial Tyrx - [id number] Implanted:Qty: 1 on 12/29/2021 by Fatoumata Roland DO at [facility] [employer] : CRM [id number] 09/23/2022 CMR M6122 / / [id number] Stent Synergy Xd Mr 3.65j11gh - [id number] Implanted:Qty: 1 on 03/22/2022 by Katalina Pearce MD at [facility] [employer] [id number] 07/17/2023 [id number] / / [id number] Valve Berhane 3 Ultra 26mm - [id number] Implanted:Qty: 1 on 12/09/2022 by Manolo Millan MD at [facility] [employer] [id number] 12/04/2023 [id number] / / documented as of this encounter [...] the patient have Health Care Power of Finishing Manager? No Care Teams State Fire Marshal Relationship Specialty Start Date End Date David Umanzor MD [address] [place] [address] PCP - General 02/25/09 documented as of this encounter
--- OUTSIDE RECORDS SUMMARY | 2023-05-28 21:25 | External Medical Summary | Summary of Care ---
Author Name Unknown Organization [facility] Address [address] [facility] [place] [address] Phone [phone] Care Team Providers Care Media Marketing Director Name Role Phone David Umanzor MD Primary Care Provider [phone]- [phone] Reason for Visit * Reason Onset Date Comments [facility]: Maintenance 05/20/2023 Encounter Details Date Type Department Care Team (Late st Contact Info) Description 05/20/2023 Telephone [facility], [facility] [address] [facility] [place] [address] Region, Nurse [address] [place] [address] [facility]: Maintenance Allergies Active Allergy [...] 1 2 Active Blood Glucose Monitoring Suppl (Pipette AUTOCODE BLOOD GLUCOSE) w/Device KITIndications:DM type 2 causing neurological disease, not at goal ([facility]) Test blood sugar 4 times daily Dx: E11.9 1 Kit 0 9 Active PRODIGY LANCETS 28G MISCIndications:DM type 2, not at goal ([facility]) TEST BLOOD SUAGER 4 TIMES A DAY [...] goal of less than 7.0% ([facility]),Type 2 diabetes mellitus with stage 3 chronic kidney disease, with long-term current use of insulin, unspecified whether stage 3a or 3b CKD ([facility]),DM type 2 causing neurological disease, not at goal ([facility]) TEST BLOOD SUGAR UP TO FOUR TIMES DAILY 400 Strip 3 2 Active Fluticasone Propionate 50 MCG/ACT Nasal Suspension (Flonase)Indications:Mechanical System Technician sanket rhinitis ADMINISTER 2 SPRAYS IN [...] without long-term current use of insulin (HCC) Use to inject insulin 4 times daily 400 Each 3 3 Active Creon 76357-32822 UNIT Oral Capsule Delayed Release Particles (Pancrelipase (Mil-Exad-Srrq))Indicatio ns:Pancreatic insufficiency TAKE ONE CAPSULE BY MOUTH [...] failure with reduced ejection fraction) ([facility]),Coronary artery disease involving [place] coronary artery of [place]ct[place] heart without angina pectoris,Nonrheumatic aortic valve stenosis,Cardiac pacemaker in situ,Tachy-wilfrido syndrome ([facility]) Take 1 Tablet by mouth at bedtime. [...] long-term current use of insulin ([facility]) Inject 30 units daily 45 mL 1 [...] combined systolic and diastolic congestive heart failure ([facility]) Take 1 Capsule by mouth in the [...] ANXIETY 40 Tablet 1 4 Active Nystatin 115614 UNIT/GM External Powder (Nyamyc) APPLY TO AFFECTED [...] HYDROcodone-Acetaminophen 5-325 MG Oral TabletIndications:Atheros clerosis of [place] artery of left lower extremity with intermittent [...] to excess calories 0 08/09/2022 Atherosclerosis of [place] ar jania of left lower extremity with intermittent claudication 08/09/2022 Coronary artery disease invo lving [place] coronary artery of [place]ct[place] heart with angina pectoris 03/22/2022 Last Assessment [...] 12/21/2016 Overview: Diabetic retinopathy Rheumatoid arthritis of [facility] without rheumatoid factor 01/26/2016 Last Assessment [...] 11/08/2018 11/12/2019 Overview: DO NOT DELETE [facility] DETECT Study: Project # [id number], Faculty Dean: Manny Santacruz, PhD. SUMMARY: Goal: Establish test [...] contact study staff at ; after hours Faculty Dean via the [facility] laminating machine operator . Please contact study team before resolving/deleting from patients problem list. Study phone number: [phone]. Diagnosis changed due to Research Module. Go to Snapshot for study details. Encounter for examination fo r normal comparison and control in clinical research program 11/08/2018 12/10/2021 Overview: DO NOT DELETE - [facility] Study: Project # [id number], Faculty Dean: Kevin Pearce, MS, MPH. SUMMARY: Goal: Establish [...] contact study staff at ; after hours Faculty Dean via the [facility] laminating machine operator . - Please contact study team before resolving/deleting from patients problem list. Study phone number: [phone]. Diagnosis changed due to Research Module. Go [...] encounter Miscellaneous Notes * Telephone Encounter - Blanca Lucero RN - 05/20/2023 12:13 PM EST Phone call from patient wanting to make [facility] aware that she spoke with Karen at [facility] who contacted [facility] and they confirmed that she does have a waiver in place and will make her marketing services specialist aware. Waiver in place since 01/31. EDER Viveros Examiner Of Currency ising at Home * Telephone Encounter - Brenna Ruiz RN - 05/20/2023 9:10 AM EST Received call from pt who is calling to inquire about the waiver program through [facility] as she hasnot heard anything since she spoke with ANIBAL Joe last month. The pt is legally blind and her has "some dementia" and she is looking forward to the waiver to provide her with aides and Mom's meals. Warm transferred pt to speak with Ko at [facility]- [place] Independent Food And Beverage Coordinator at [phone]. Brenna GAINES, RN [facility] Intake Triage Coordinator [phone] documented in this encounter Plan of Treatment Upcoming Encounters Date Type Department Care Team (Late st Contact Info) Description 05/26/2023 2:00 PM EST Laboratory Laboratory, [place] [address] [place] [address] [place], Laboratory [address] [place] [address] 05/27/2023 10:00 AM EST [facility] Visit [facility], [facility] [address] [facility] [place] [address] Tatyana Delaney RN [address] [facility] [place] [address] 05/31/2023 1:30 PM EST Imaging Radiology [facility] [address] [facility] [place] [address] 06/06/2023 2:40 PM EST Pharmacy Pharmacy, [place] [address] [facility] [place] [address] [facility] [address] [facility] [place] [address] 06/07/2023 1:20 PM EST Office Visit Sleep Disorders Ctr [facility] [address] [facility] [place] [phone] Vira Byrd, [address] [facility] [place] [address] 07/27/2023 3:00 PM EDT Office Visit Cardiology, [facility] [address] [facility] [place] [address] Wood Wong PA-C [address] [facility] [place] [address] 08/01/2023 2:00 PM EDT Laboratory Laboratory, [place] [address] [facility] [place] [address] [facility] [address] [place] [address] 08/02/2023 2:00 PM EDT Office Visit Rheumatology [place] [address] [facility] [place] [address] Eliot Castelan CRNP [facility] [place] [address] 08/08/2023 12:30 PM EDT Office Visit Hematology/Oncology [facility] [address] [place] [address] Miguel A Alcantar MD [address] [facility] [place] [address] 08/18/2023 1:30 PM EDT Office Visit Nephrology, [facility] [address] [facility] [place] [address] Ana Lin PA-C [address] [facility] [place], [place] [address] 10/11/2023 5:40 PM EDT [facility] [address] [place] [address] David Umanzor MD [address] [place] [address] 03/07/2024 1:00 PM EST Office Visit Cardiology, [facility] [address] [place] [address] Manolo Millan MD [address] [place] [address] Scheduled Procedures Name Priority Associated [...] Additional history exists CKD PHOS USE SMARTSET 40301 12/02/202311/10, 08/06/2022, 08/21/2021, Additional history exists CKD HGB USE SMARTSET 08478 03/25/202403/25, 03/25/2023, 02/28/2023, Additional history exists TSH [...] this encounter Medical Devices Implanted Type Area Coordinator Hotels Device Identifier Shelf Expiration Date Model / Serial / Lot Merit Medical Embosphere Micrspheres Implanted:Qty: 2 on 11/02/2019 by Ish Grove MD at [facility] Right: Abdomen [employer] 05/11/2022 S220GH / [id number] / [id number] Syr Pf 2ml Embospheres 100-300 - [id number] Implanted:Qty: 1 on 11/14/2020 at [facility] [employer] [id number] 08/22/2023 S220GH / / [id number] Envelope Antibacterial Tyrx - [id number] Implanted:Qty: 1 on 12/29/2021 by Fatoumata Roland DO at [facility] [employer] : CRM [id number] 09/23/2022 CMR [id number] / / [id number] Stent Synergy Xd Mr 3.42d45nz - [id number] Implanted:Qty: 1 on 03/22/2022 by Katalina Pearce MD at [facility] [employer] [id number] 07/17/2023 [id number] / / [id number] Valve Berhane 3 Ultra 26mm - [id number] Implanted:Qty: 1 on 12/09/2022 by Manolo Millan MD at [facility] [employer] [id number] 12/04/2023 [id number] / / documented as of this encounter [...] the patient have Health Care Power of Paint Preparer? No Care Teams Media Marketing Director Relationship Specialty Start Date End Date David Umanzor MD [address] [place] [address] PCP - General 02/25/09 documented as of this encounter
--- OUTSIDE RECORDS SUMMARY | 2023-05-28 21:25 | External Medical Summary | Summary of Care ---
Author Name Unknown Organization [facility] Address [address] [facility] [place] [address] Phone [phone] Care Team Providers Care Hoister Name Role Phone David Umanzor MD Primary Care Provider +1- [phone] Reason for Visit * Reason Onset Date Comments Information 05/17/2023 Encounter Details Date Type Department Care Team (Late st Contact Info) Description 05/17/2023 Telephone [facility] [place] [address] [place] [address] TobiasLuz jacques MD [address] [place] [address] Information Allergies Active Allergy Reactions Criticality Noted [...] 2 causing neurological disease, not at goal ([facility]) Test blood sugar 4 times daily Dx: E11.9 1 Kit 0 9 Active PRODIGY LANCETS 28G MISCIndications:DM type 2, not at goal ([facility]) TEST BLOOD SUAGER 4 TIMES A [...] hemoglobin A1c goal of less than 7.0% ([facility]),Type 2 diabetes mellitus with stage 3 chronic kidney disease, with long-term current use of insulin, unspecified whether stage 3a or 3b CKD ([facility]),DM type 2 causing neurological disease, not at goal ([facility]) TEST BLOOD SUGAR UP TO FOUR TIMES DAILY 400 Strip 3 2 Active Fluticasone Propionate 50 MCG/ACT Nasal Suspension (Flonase)Indications:Restrictive Preparation Operator sanket rhinitis ADMINISTER 2 SPRAYS IN [...] coma, without long-term current use of insulin ([facility]) Use to inject insulin 4 times daily 400 Each 3 3 Active Creon 14924-00001 UNIT Oral Capsule Delayed Release Particles (Pancrelipase (Khy-Qzbe-Bmbi))Indicatio ns:Pancreatic insufficiency TAKE ONE CAPSULE BY MOUTH [...] coma, without long-term current use of insulin ([facility]) Inject 10 units with breakfast, 4 units with lunch, and 10 units with PM meal. Inject 4 units if BG is >200. 30 mL 5 3 Active Acetaminophen 500 MG Oral TabletIndications:HFrEF (heart failure with reduced ejection fraction) ([facility]),Coronary artery disease involving [place] coronary artery of [place] heart without angina pectoris,Nonrheumatic aortic valve stenosis,Cardiac [...] coma, without long-term current use of insulin ([facility]) Inject 30 units daily 45 mL [...] Active Gabapentin 300 MG Oral Capsule (Neurontin)Indications:Ac huslia on chronic combined systolic and diastolic congestive [...] ANXIETY 40 Tablet 1 4 Active Nystatin 933569 UNIT/GM External Powder (Nyamyc) APPLY TO AFFECTED [...] HYDROcodone-Acetaminophen 5-325 MG Oral TabletIndications:Atheros clerosis of [place] artery of left lower extremity with intermittent [...] to excess calories 0 08/09/2022 Atherosclerosis of [place] ar jania of left lower extremity with intermittent claudication 08/09/2022 Coronary artery disease invo lving [place] coronary artery of [place] heart with angina pectoris 03/22/2022 Last Assessment [...] Overview: Diabetic retinopathy Rheumatoid arthritis of [facility] sites without rheumatoid factor 01/26/2016 [...] [facility] DETECT Study: Project # [id number], Councilor: Manny Santacruz, PhD. SUMMARY: Goal: Establish test [...] contact study staff at ; after hours Councilor via the [facility] clicker operator . Please contact study team before resolving/deleting from patients problem list. Study phone number: [phone]. Diagnosis changed due to Research Module. Go to Snapshot for study details. Encounter for examination fo r normal comparison and control in clinical research program 11/08/2018 12/10/2021 Overview: DO NOT DELETE - [facility] Study: Project # [id number], Councilor: Kevin Pearce, MS, MPH. SUMMARY: Goal: Establish [...] contact study staff at ; after hours Councilor via the [facility] clicker operator . - Please contact study team before resolving/deleting from patients problem list. Study phone number: [phone]. Diagnosis changed due to Research Module. Go [...] encounter Miscellaneous Notes * Telephone Encounter - Kenny Verdin OSA - 05/20/2023 2:55 PM EST Patient returning call. Please call her back when available. [phone] * Telephone Encounter - Becky Shelton LPN - 05/20/2023 2:44 PM EST LMM om Cell phone and home phone voice mail to return call to office regarding Test results * Telephone Encounter - Tatyana Delaney RN - 05/20/2023 7:59 AM EST I am seeing pt on 05/27. Pt has [facility] going several times a week [...] Description 05/26/2023 2:00 PM EST Laboratory [facility] [place] [address] [facility] [phone] [place] [address] [facility] [place] [address] 05/27/2023 10:00 AM EST Home Visit ising at [place], [address] [place] [phone] Tatyana Delaney, RN [address] [facility] [address] 05/31/2023 1:30 PM EST Imaging Radiology [facility] 1st [facility] [address] [facility] [place] [address] 06/06/2023 2:40 PM EST Pharmacy Pharmacy, [place] [address] [place] [address] [facility] [address] [place] [address] 06/07/2023 1:20 PM EST Office Visit [facility] [address] [facility] [phone] Vira Byrd DO [address] [facility] [address] 07/27/2023 3:00 PM EDT Office Visit Cardiology, [facility] [address] [facility] [place] [address] Wood Wong PAMirandaC [facility] [address] 08/01/2023 2:00 PM EDT Laboratory Laboratory, [place] [address] [place] [phone] [facility] [address] [place] [address] 08/02/2023 2:00 PM EDT Office Visit Rheumatology [place] [address] [facility] [place] [address] Eliot Castelan CRNP [facility] [place] [address] 08/08/2023 12:30 PM EDT Office Visit Hematology/Oncology [facility] [address] [place] [address] Miguel A Alcantar MD [address] [facility] [place] [address] 08/18/2023 1:30 PM EDT Office Visit Nephrology, [facility] [address] [facility] [place], [place] [address] Ana Lin PA-C [address] [facility] [place], [place] [address] 10/11/2023 5:40 PM EDT [facility] [address] [place] [phone] David Umanzor MD [address] [place], [place] [phone] 03/07/2024 1:00 PM EST Office Visit Cardiology, [facility] [address] [place] [address] Manolo Millan MD [address] [place] [address] Scheduled Procedures Name Priority Associated [...] Additional history exists CKD PHOS USE SMARTSET 35501 12/02/202311/10, 08/06/2022, 08/21/2021, Additional history exists CKD HGB USE SMARTSET 95987 03/25/202403/25, 03/25/2023, 02/28/2023, Additional history exists TSH [...] this encounter Medical Devices Implanted Type Area Demurrage Clerk Device Identifier Shelf Expiration Date Model / Serial / Lot [facility] Medical Embosphere Micrspheres Implanted:Qty: 2 on 11/02/2019 by Ish Grove MD at [facility] Right: Abdomen [facility] [employer] 05/11/2022 S220GH / S220GH / [id number] Syr Pf 2ml Embospheres 100-300 - [id number] Implanted:Qty: 1 on 11/14/2020 at [facility] [employer] [id number] 08/22/2023 S220GH / / [id number] Envelope Antibacterial Tyrx - [id number] Implanted:Qty: 1 on 12/29/2021 by Fatoumata Roland DO at [facility] [employer] : CRM [id number] 09/23/2022 CMR M6122 / / [id number] Stent Synergy Xd Mr 3.46g25xu - [id number] Implanted:Qty: 1 on 03/22/2022 by Katalina Pearce MD at [facility] [employer] [id number] 07/17/2023 [id number] / / [id number] Valve Berhane 3 Ultra 26mm - [id number] Implanted:Qty: 1 on 12/09/2022 by Manolo Millan MD at [facility] [employer] [id number] 12/04/2023 [id number] / / documented as of this encounter [...] the patient have Health Care Power of Insurance Sales Assistant? No Care Teams Hoister Relationship Specialty Start Date End Date David Umanzor MD [address] [facility] [place] [address] PCP - General 02/25/09 documented as of this encounter
--- OUTSIDE RECORDS SUMMARY | 2023-05-28 21:25 | External Medical Summary | Summary of Care ---
Author Name Unknown Organization [facility] Address [address] [facility] [place] [address] Phone [phone] Care Team Providers Care Business Ethics Professor Name Role Phone David Umanzor MD Primary Care Provider +1- [phone] Reason for Visit * Reason Onset Date Comments [facility]: Maintenance 05/20/2023 Encounter Details Date Type Department Care Team (Late st Contact Info) Description 05/20/2023 Telephone [facility], [facility] [address] [facility] [place] [address] Region, Nurse [address] [place] [address] [facility]: Maintenance Allergies Active Allergy [...] 1 2 Active Blood Glucose Monitoring Suppl ([facility] AUTOCODE BLOOD GLUCOSE) w/Device KITIndications:DM type 2 [...] Active Fluticasone Propionate 50 MCG/ACT Nasal Suspension (Flonase)Indications:Spot Checker sanket rhinitis ADMINISTER 2 SPRAYS IN EACH [...] daily 400 Each 3 3 Active Creon 93603-92300 UNIT Oral Capsule Delayed Release Particles (Pancrelipase (Ncy-Kmze-Eddu))Indicatio ns:Pancreatic insufficiency TAKE ONE CAPSULE BY MOUTH [...] [facility]),Coronary artery disease involving platinum coronary artery of platinum heart without angina pectoris,Nonrheumatic aortic valve stenosis,Cardiac pacemaker in situ,Tachy-wilfrido syndrome ([facility]) Take 1 Tablet by mouth [...] ([facility]) Inject 30 units daily 45 [...] combined systolic and diastolic congestive heart failure ([facility]) Take 1 Capsule by mouth [...] ANXIETY 40 Tablet 1 4 Active Nystatin 699831 UNIT/GM External Powder (Nyamyc) APPLY TO AFFECTED [...] HYDROcodone-Acetaminophen 5-325 MG Oral TabletIndications:Atheros clerosis of platinum artery of left lower extremity with intermittent [...] to excess calories 0 08/09/2022 Atherosclerosis of platinum ar jania of left lower extremity with intermittent claudication 08/09/2022 Coronary artery disease invo lving platinum coronary artery of platinum heart with angina pectoris 03/22/2022 Last Assessment [...] 12/21/2016 Overview: Diabetic retinopathy Rheumatoid arthritis of [facility] sites without rheumatoid factor 01/26/2016 [...] 11/08/2018 11/12/2019 Overview: DO NOT DELETE [facility] DETECT Study: Project # [id number], Big Data Engineer: Manny Santacruz, PhD. SUMMARY: Goal: Establish test [...] contact study staff at ; after hours Big Data Engineer via the [facility] aegis console operator track . Please contact study team before resolving/deleting from patients problem list. Study phone number: [phone]. Diagnosis changed due to Research Module. Go to Snapshot for study details. Encounter for examination fo r normal comparison and control in clinical research program 11/08/2018 12/10/2021 Overview: DO NOT DELETE - [facility] Study: Project # [id number], Big Data Engineer: Kevin Pearce, MS, MPH. SUMMARY: Goal: [...] contact study staff at ; after hours Big Data Engineer via the [facility] aegis console operator track . - Please contact study team before resolving/deleting from patients problem list. Study phone number: [phone]. Diagnosis changed due to Research Module. Go [...] encounter Miscellaneous Notes * Telephone Encounter - Brenna Ruiz RN - 05/20/2023 9:10 AM EST Received call from pt who is calling to inquire about the waiver program through [employer] as she hasnot heard anything since she spoke with ANIBAL Joe last month. The pt is legally blind and her has "some dementia" and she is looking forward to the waiver to provide her with aides and Mom's meals. Warm transferred pt to speak with Ko at [employer] [place] Independent Stable Manager at [phone]. Brenna GAINES, RN [facility] Intake Triage Coordinator [phone] documented in this encounter Plan of Treatment Upcoming Encounters Date Type Department Care Team (Late st Contact Info) Description 05/26/2023 2:00 PM EST Laboratory Laboratory, [place] [address] [facility] [address] [facility] [address] [place] [address] 05/27/2023 10:00 AM EST Home Visit [facility] [address] [facility] [place] [address] Tatyana Delaney RN 132 [facility] [place] [address] 05/31/2023 1:30 PM EST Imaging Radiology [address] [facility] [place] [address] 06/06/2023 2:40 PM EST Pharmacy Pharmacy, [place] [address] [facility] [place] [address] Abdelrahman [facility] [address] [facility] [address] 06/07/2023 1:20 PM EST Office Visit Sleep Disorders Ctr [facility] [address] [facility] [place] [address] Vira Byrd DO [address] [place] [address] 07/27/2023 3:00 PM EDT [facility] [address] [facility] [place] [address] Wood Wong PA-C [address] [facility] [place] [address] 08/01/2023 2:00 PM EDT Laboratory Laboratory, [place] [address] [place] [address] [place] [address] [place] [address] 08/02/2023 2:00 PM EDT Office Visit Rheumatology [place] [address] [facility] [place] [address] Eliot Castelan CRNP [address] [facility] [place] [address] 08/08/2023 12:30 PM EDT Office Visit Hematology/Oncology [facility] [address] [place] [address] Miguel A Alcantar MD [address] [place] [address] 08/18/2023 1:30 PM EDT Office Visit Nephrology, [facility] [address] [place] [address] Ana Lin PAGina [address] [place] [address] 10/11/2023 5:40 PM EDT Office Visit [facility] [address] [place] [address] David Umanzor MD [address] [place] [address] 03/07/2024 1:00 PM EST Office Visit Cardiology, [facility] [address] [place] [address] Manolo Millan MD [address] [place] [address] Scheduled Procedures Name Priority Associated [...] Additional history exists CKD PHOS USE SMARTSET 56622 12/02/202311/10, 08/06/2022, 08/21/2021, Additional history exists CKD HGB USE SMARTSET 72286 03/25/202403/25, 03/25/2023, 02/28/2023, Additional history exists TSH [...] this encounter Medical Devices Implanted Type Area Wet End Tester Device Identifier Shelf Expiration Date Model / Serial / Lot Sprooki Embosphere Micrspheres Implanted:Qty: 2 on 11/02/2019 by Ish Grove MD at [facility] Right: Abdomen [employer] 05/11/2022 S220GH / S220GH / [id number] Syr Pf 2ml Embospheres 100-300 - [id number] Implanted:Qty: 1 on 11/14/2020 at [facility] [employer] [id number] 08/22/2023 S220GH / / [id number] Envelope Antibacterial Tyrx - [id number] Implanted:Qty: 1 on 12/29/2021 by Fatoumata Roland DO at OR [facility] [employer] : CRM [id number] 09/23/2022 CMR M6122 / / [id number] Stent Synergy Xd Mr 3.42y21ij - [id number] Implanted:Qty: 1 on 03/22/2022 by Katalina Pearce MD at [facility] [employer] [id number] 07/17/2023 [id number] / / [id number] Valve Berhane 3 Ultra 26mm - [id number] Implanted:Qty: 1 on 12/09/2022 by Manolo Millan MD at [facility] [employer] [id number] 12/04/2023 [id number] / / documented as of this encounter [...] the patient have Health Care Power of Political Consultant? No Care Teams Business Ethics Professor Relationship Specialty Start Date End Date David Umanzor MD [address] [place] [facility] [place] [address] PCP - General 02/25/09 documented as of this encounter
--- OUTSIDE RECORDS SUMMARY | 2023-05-28 21:25 | External Medical Summary | Summary of Care ---
Author Name Unknown Organization [facility] Address [address] [place] [facility] [place] [place] [address] Phone [phone] Care Team Providers Care Cabinet Maker Name Role Phone David Umanzor MD Primary Care Provider +1- [phone] Reason for Visit * Reason Onset Date Comments Information 05/17/2023 Encounter Details Date Type Department Care Team (Late st Contact Info) Description 05/17/2023 Telephone NephrologyRaphael Trufant [address] [place] [address] TobiasLuz jacques MD [address] [place] [address] Information Allergies Active Allergy Reactions Criticality Noted [...] Active Fluticasone Propionate 50 MCG/ACT Nasal Suspension (Flonase)Indications:Sawmill Equipment Operator sanket rhinitis ADMINISTER 2 SPRAYS IN [...] daily 400 Each 3 3 Active Creon 86030-78565 UNIT Oral Capsule Delayed Release Particles (Pancrelipase (Pjo-Ysoi-Zvuj))Indicatio ns:Pancreatic insufficiency TAKE ONE CAPSULE BY MOUTH [...] ejection fraction) ([facility]),Coronary artery disease involving [place]osh[place] coronary artery of ely shoshone heart without angina pectoris,Nonrheumatic aortic valve stenosis,Cardiac [...] ANXIETY 40 Tablet 1 4 Active Nystatin 418553 UNIT/GM External Powder (Nyamyc) APPLY TO AFFECTED [...] HYDROcodone-Acetaminophen 5-325 MG Oral TabletIndications:Atheros clerosis of [place] artery of left lower extremity with intermittent [...] to excess calories 0 08/09/2022 Atherosclerosis of [place] ar jania of left lower extremity with intermittent claudication 08/09/2022 Coronary artery disease invo lving ely shoshone coronary artery of ely shoshone heart with angina pectoris 03/22/2022 Last Assessment [...] 12/21/2016 Overview: Diabetic retinopathy [facility] without rheumatoid factor 01/26/2016 Last [...] [facility] DETECT Study: Project # [id number], Dobie Man: Manny Santacruz, PhD. SUMMARY: Goal: Establish test [...] contact study staff at ; after hours Dobie Man via the [facility] center machine operator . Please contact study team before resolving/deleting from patients problem list. Study phone number: [phone]. Diagnosis changed due to Research Module. Go to Snapshot for study details. Encounter for examination fo r normal comparison and control in clinical research program 11/08/2018 12/10/2021 Overview: DO NOT DELETE - [facility] Study: Project # [id number], Dobie Man: Kevin Pearce, MS, MPH. SUMMARY: Goal: Establish [...] contact study staff at ; after hours Dobie Man via the [facility] center machine operator . - Please contact study team before resolving/deleting from patients problem list. Study phone number: [phone]. Diagnosis changed due to Research Module. Go [...] am seeing pt on 05/27. Pt has [facility] going several times a week [...] Description 05/26/2023 2:00 PM EST Laboratory Laboratory, [place] [address] [place] [address] [facility] [address] [place] [address] 05/27/2023 10:00 AM EST [facility], [facility] 132 [place] [address] Tatyana Delaney RN 132 [place] [address] 05/31/2023 1:30 PM EST Imaging Radiology [facility] 1st [facility] [place] [address] [place] [address] 06/06/2023 2:40 PM EST Pharmacy Pharmacy, [place] [address] [place] [address] [facility] [address] [place] [address] 06/07/2023 1:20 PM EST Office Visit [facility] [address] Vira Byrd, [address] [place] [address] 07/27/2023 3:00 PM EDT Office Visit Cardiology, [facility] [address] [facility] [place] [address] Wood Wong PA-C [address] [place] [address] 08/01/2023 2:00 PM EDT Laboratory Laboratory, [place] [address] [place] [address] [facility] [address] [place] [address] 08/02/2023 2:00 PM EDT Office Visit Rheumatology [facility] [address] [facility] [place] [address] Eliot Castelan CRNP [address] [facility] [place] [address] 08/08/2023 12:30 PM EDT Office Visit [facility]ematology[facility] [place] [address] [place] [address] Miguel A Alcantar MD [address] [place] [address] 08/18/2023 1:30 PM EDT Office Visit Nephrology, Raphael Trufant [address] [place], [place] [address] Ana Lin PA-C [address] [place], [place] [address] 10/11/2023 5:40 PM EDT Office Visit Family Practice, [place] [address] [place] [address] David Umanzor MD [address] [place] [address] 03/07/2024 1:00 PM EST Office Visit Cardiology, [facility] [address] [place], [place] [address] Manolo Millan MD [address] [place] [address] Scheduled Procedures Name Priority Associated [...] Additional history exists CKD PHOS USE SMARTSET 71674 12/02/202311/10, 08/06/2022, 08/21/2021, Additional history exists CKD HGB USE SMARTSET 34502 03/25/202403/25, 03/25/2023, 02/28/2023, Additional history exists TSH [...] this encounter Medical Devices Implanted Type Area Delivery Mgr Device Identifier Shelf Expiration Date Model / Serial / Lot [employer] Embosphere Micrspheres Implanted:Qty: 2 on 11/02/2019 by Ish Grove MD at [facility] Right: Abdomen [employer] 05/11/2022 S220GH / S220GH / [id number] Syr Pf 2ml Embospheres 100-300 - [id number] Implanted:Qty: 1 on 11/14/2020 at [facility] [employer] [id number] 08/22/2023 S220GH / / [id number] Envelope Antibacterial Tyrx - [id number] Implanted:Qty: 1 on 12/29/2021 by Fatoumata Roland DO at OR [facility] [employer] : [facility] [id number] 09/23/2022 CMR M6122 / / [id number] Stent Synergy Xd Mr 3.21k90uh - [id number] Implanted:Qty: 1 on 03/22/2022 by Katalina Pearce MD at [facility] [employer] Space [id number] 07/17/2023 [id number] / / [id number] Valve Berhane 3 Ultra 26mm - [id number] Implanted:Qty: 1 on 12/09/2022 by Manolo Millan MD at [facility] [employer] [id number] 12/04/2023 [id number] / / documented as of this encounter [...] the patient have Health Care Power of Lollypop Machine Operator? No Care Teams Cabinet Maker Relationship Specialty Start Date End Date David Umanzor MD [address] [facility] [address] PCP - General 02/25/09 documented as of this encounter
--- OUTSIDE RECORDS SUMMARY | 2023-05-28 21:25 | External Medical Summary | Summary of Care ---
Author Name Unknown Organization [facility] Address [address] [place] [facility] [place] [address] Phone [phone] Care Team Providers Care Child Care Attendant Name Role Phone David Umanzor MD Primary Care Provider +1- [phone] Reason for Visit * Reason Onset Date Comments Information 05/17/2023 Encounter Details Date Type Department Care Team (Late st Contact Info) Description 05/17/2023 Telephone NephrologyRaphael Redbird [address] [place] [address] TobiasLuz jacques MD [address] [place] [address] Information Allergies Active Allergy Reactions Criticality Noted [...] neurological disease, not at goal ([facility]) Test blood sugar 4 times daily Dx: E11.9 1 Kit 0 9 Active PRODIGY LANCETS 28G MISCIndications:DM type 2, not at goal ([facility]) TEST BLOOD SUAGER 4 TIMES A DAY [...] goal of less than 7.0% ([facility]),Type 2 diabetes mellitus with stage 3 chronic kidney disease, with long-term current use of insulin, unspecified whether stage 3a or 3b CKD ([facility]),DM type 2 causing neurological disease, not at goal ([facility]) TEST BLOOD SUGAR UP TO FOUR TIMES DAILY 400 Strip 3 2 Active Fluticasone Propionate 50 MCG/ACT Nasal Suspension (Flonase)Indications:Pocket Stitcher sanket rhinitis ADMINISTER 2 SPRAYS IN EACH [...] long-term current use of insulin ([facility]) Use to inject insulin 4 times daily 400 Each 3 3 Active Creon 28258-28475 UNIT Oral Capsule Delayed Release Particles (Pancrelipase (Eif-Lfdx-Trpj))Indicatio ns:Pancreatic insufficiency TAKE ONE CAPSULE BY MOUTH [...] long-term current use of insulin ([facility]) Inject 10 units with breakfast, 4 units with lunch, and 10 units with PM meal. Inject 4 units if BG is >200. 30 mL 5 3 Active Acetaminophen 500 MG Oral TabletIndications:HFrEF (heart failure with reduced ejection fraction) ([facility]),Coronary artery disease involving [place] coronary artery of [place] heart without angina pectoris,Nonrheumatic aortic valve stenosis,Cardiac [...] long-term current use of insulin ([facility]) Inject 30 units daily 45 mL 1 [...] Active Gabapentin 300 MG Oral Capsule (Neurontin)Indications:Ac stillaguamish on chronic combined systolic and diastolic congestive [...] ANXIETY 40 Tablet 1 4 Active Nystatin 084697 UNIT/GM External Powder (Nyamyc) APPLY TO AFFECTED [...] MG Oral TabletIndications:Atheros clerosis of [place] artery of left lower extremity with intermittent [...] calories 0 08/09/2022 Atherosclerosis of [place] ar jania of left lower extremity with intermittent claudication 08/09/2022 Coronary artery disease invo lving [place] coronary artery of [place] heart with angina pectoris 03/22/2022 Last Assessment [...] 12/21/2016 Overview: Diabetic retinopathy Rheumatoid arthritis of [facility] sites without rheumatoid factor 01/26/2016 Last [...] DELETE [facility] DETECT Study: Project # [id number], Shoe Dyer: Manny Santacruz, PhD. SUMMARY: Goal: Establish test [...] contact study staff at ; after hours Shoe Dyer via the [facility] shear operator automatic . Please contact study team before resolving/deleting from patients problem list. Study phone number: [phone]. Diagnosis changed due to Research Module. Go to Snapshot for study details. Encounter for examination fo r normal comparison and control in clinical research program 11/08/2018 12/10/2021 Overview: DO NOT DELETE - [facility] Study: Project # [id number], Shoe Dyer: Kevin Pearce, MS, MPH. SUMMARY: Goal: Establish [...] contact study staff at ; after hours Shoe Dyer via the [facility] shear operator automatic . - Please contact study team before resolving/deleting from patients problem list. Study phone number: [phone]. Diagnosis changed due to Research Module. Go [...] encounter Miscellaneous Notes * Telephone Encounter - Tatyana Delaney RN - 05/20/2023 7:59 AM EST I am seeing pt on 05/27. Pt has [facility] going several times a week [...] Description 05/26/2023 2:00 PM EST Laboratory Laboratory, [place] [address] [place] [address] [facility] [address] [place] [address] 05/27/2023 4:00 PM EST [facility] [address] Tatyana Delaney RN 132 [facility] [place] [address] 05/31/2023 1:30 PM EST Imaging Radiology [facility] 1st [facility] [address] [facility] [place] [address] 06/06/2023 2:40 PM EST Pharmacy Pharmacy, [place] [address] [place] [address] [place], [facility] [address] [place] [facility] [place] [address] 06/07/2023 1:20 PM EST Office Visit [facility] Disorders Ctr [facility] [address] [place], [place] [address] Vira Byrd DO [address] [place] [address] 07/27/2023 3:00 PM EDT [facility] [address] [facility] [place] [place] [address] Wood Wong PAMirandaC [address] [place] [address] 08/01/2023 2:00 PM EDT Laboratory Laboratory, [address] [address] [address] 08/02/2023 2:00 PM EDT Office Visit Rheumatology [facility] [address] [facility] [place] [address] Eliot Castelan CRNP [address] [facility] [place] [address] 08/08/2023 12:30 PM EDT Office Visit Hematology/Oncology [facility] [place] [address] [place] [address] Miguel A Alcantar MD 200 [facility] [address] [place] [address] 08/18/2023 1:30 PM EDT Office Visit Neph[facility], [facility] [address] [place] [address] Ana Lin PAMirandaC [address] [place] [address] 10/11/2023 5:40 PM EDT Office Visit [facility] [address] [place] [address] David Umanzor MD [address] [place] [address] 03/07/2024 1:00 PM EST Office Visit Cardiology, [facility] [address] [facility] [place] [address] Manolo Millan MD [address] [place] [address] Scheduled Procedures Name Priority Associated [...] Additional history exists CKD PHOS USE SMARTSET 11222 12/02/202311/10, 08/06/2022, 08/21/2021, Additional history exists CKD HGB USE SMARTSET 12542 03/25/202403/25, 03/25/2023, 02/28/2023, Additional history exists TSH [...] this encounter Medical Devices Implanted Type Area Manager Nc Device Identifier Shelf Expiration Date Model / Serial / Lot [facility] Medical Embosphere Micrspheres Implanted:Qty: 2 on 11/02/2019 by Ish Grove MD at [facility] Right: Abdomen [employer] 05/11/2022 S220GH / S220GH / [id number] Syr Pf 2ml Embospheres 100-300 - [id number] Implanted:Qty: 1 on 11/14/2020 at [facility] [employer] [id number] 08/22/2023 S220GH / / [id number] Envelope Antibacterial Tyrx - [id number] Implanted:Qty: 1 on 12/29/2021 by Fatoumata Roland DO at OR [facility] [employer] : CRM [id number] 09/23/2022 CMR M6122 / / [id number] Stent Synergy Xd Mr 3.70a39bt - [id number] Implanted:Qty: 1 on 03/22/2022 by Katalina Pearce MD [place] [facility] [id number] 07/17/2023 [id number] / [id number] Valve Berhane 3 Ultra 26mm - [id number] Implanted:Qty: 1 on 12/09/2022 by Manolo Millan MD [place] [facility] [employer] [id number] 12/04/2023 [id number] / / documented as of this encounter [...] the patient have Health Care Power of Batch Mixing Truck Driver? No Care Teams Child Care Attendant Relationship Specialty Start Date End Date David Umanzor MD [address] [place] [address] PCP - General 02/25/09 documented as of this encounter
--- OUTSIDE RECORDS SUMMARY | 2023-05-28 21:26 | External Medical Summary | Summary of Care ---
Author Name Unknown Organization [facility] Address [address] [place] [address] Phone [phone] Care Team Providers Care Fixed Income Portfolio Manager Name Role Phone David Umanzor MD Primary Care Provider [phone] Reason for Visit * Reason Comments Status Check Return in 6 months Encounter Details Date Type Department Care Team (Late st Contact Info) Description 04/25/2023 1:20 PM EST Office Visit Merged With [facility] [address] [place] [address] David Umanzor MD [address] [place] [address] Type 2 diabetes mellitus with hypoglycemia without coma, with long-term current use of insulin ([facility])*; Risk and functional assessment; Stage 3a chronic kidney disease (HCC); Diabetes mellitus, type II, insulin dependent (HCC); Other sleep apnea; 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 ([facility]); Acute on chronic combined systolic and diastolic congestive heart failure ([facility]); 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 Ciprofloxacin Low 03/30/2021 Other reaction(s): Nausea Butorphanol Tartrate 02/09/2010 Heart racing Sulfa Antibiotics Hives High 05/22/2002 Other reaction(s): Hives Trimethoprim 04/15/2022 Other reaction(s): Hives documented as of this encounter (statuses as of 05/16/2023) Medications Medication Sig Dispensed Refills Start Date End Date Status TYLENOL ARTHRITIS PAIN 650 MG PO TBCRIndications:arthrit is Take by mouth as needed. 0 12/06/19 08 Active NEBULIZER/TUBING/MOUTHP IECE KITIndications:Wheezing ,Acute bronchitis, complicated use with nebs 1 pack 5 07/04/19 10 Active MULTIVITAMIN/IRON PO TABS 1 daily 0 Active BIOTENE MOISTURIZING MOUTH MT SOLNIndications:Dry mouth use four times daily 1 Bottle 1 03/21/20 12 Active Blood Glucose Monitoring Suppl ([employer] AUTOCODE BLOOD GLUCOSE) w/Device KITIndications:DM type 2 causing neurological disease, not at goal ([facility]) Test blood sugar 4 times daily Dx: E11.9 1 Kit 0 03/19/20 19 Active PRODContext appY LANCETS 28G MISCIndications:DM type 2, not at goal ([facility]) TEST BLOOD SUAGER 4 [...] Active Meclizine HCl 25 MG Oral Tablet (Antivert)Indications:V ertigo TAKE 1 TAB BY MOUTH 3 TIMES A DAY NEEDED FOR DIZZINESS. 30 Tablet 1 05/13/19 22 Active Melatonin 5 MG Oral CapsuleIndications:slee p Take 1 Capsule by mouth at bedtime. [...] hemoglobin A1c goal of less than 7.0% ([facility]),Type 2 diabetes mellitus with stage 3 chronic kidney disease, with long-term current use of insulin, unspecified whether stage 3a or 3b CKD ([facility]),DM type 2 causing neurological disease, not at goal ([facility]) TEST BLOOD SUGAR UP TO FOUR TIMES DAILY 400 Strip 3 02/16/20 22 Active Fluticasone Propionate 50 MCG/ACT Nasal Suspension (Flonase)Indications:Ch ronic rhinitis ADMINISTER 2 SPRAYS IN EACH NOSTRIL EACH MORNING 48 g 1 03/15/20 22 Active tiZANidine HCl 2 MG Oral Tablet (Zanaflex)Indications:H ip pain, left TAKE 1 TABLET BY MOUTH EVERY 6 HOURS NEEDED FOR MUSCLE SPASM 30 Tablet 0 03/18/20 22 Active Insulin Syringe-Needle U-100 31G X 5/16" [...] bedtime. 15 mL 3 06/03/19 23 Active Folic Acid 1 MG Oral TabletIndications:Encou nter for long-term (current) use of medications Take 1 Tablet by mouth in the morning. 90 Tablet 3 06/03/19 23 Active BD Pen Needle Corinna U/F 32G X 4 MM (Insulin Pen Needle)Indications:Type 2 diabetes mellitus with hyperosmolarity without coma, without long-term current use of insulin ([facility]) Use to inject insulin 4 times daily 400 Each 3 08/07/19 23 Active Creon 27417-33204 UNIT Oral Capsule Delayed Release Particles (Pancrelipase ([id number]))Indicat ions:Pancreatic insufficiency TAKE ONE CAPSULE BY MOUTH WITH EACH MEAL AND SNACK (PT WANTD FOUR TIMES A DAY ALL CELLS) 120 Capsule 11 08/27/19 23 Active Levothyroxine Sodium 125 MCG Oral Tablet (Levoxyl)Indications:Po stsurgical hypothyroidism (NIP) TAKE ONE TABLET BY MOUTH EVERY MORNING AT LEAST 30 MINUTES PRIOR TO FIRST MEAL OF THE DAY 90 Tablet 2 08/28/19 23 Active Rhopressa 0.02 % Ophthalmic Solution (Netarsudil Dimesylate) Instill 1 Drop into the left eye every night at bedtime. 2 mL 5 08/28/19 23 Active NovoLOG FlexPen 100 UNIT/ML Subcutaneous Solution Pen-injector (insulin aspart)Indications:Type 2 diabetes mellitus with hyperosmolarity without coma, without long-term current use of insulin ([facility]) Inject 10 units with breakfast, 4 units with lunch, and 10 units with PM meal. Inject 4 units if BG is >200. 30 mL 5 10/01/19 23 Active Acetaminophen 500 MG Oral TabletIndications:HFrEF (heart failure with reduced ejection fraction) ([facility]),Coronary artery disease involving iroquois coronary artery of iroquois heart without angina pectoris,Nonrheumatic aortic valve stenosis,Cardiac pacemaker in situ,Tachy-wilfrido syndrome ([facility]) Take 1 Tablet by mouth at bedtime. 0 Active Latanoprost 0.005 % Ophthalmic Solution (Xalatan) Instill 1 Drop into both eyes at bedtime. Please dispense 90 day supply 7.5 mL 1 11/09/19 23 Active Omeprazole 20 MG Oral Capsule Delayed Release (PriLOSEC)Indications:G astroesophageal reflux disease, unspecified whether esophagitis present TAKE ONE CAPSULE BY MOUTH EVERY MORNING 90 Capsule 2 11/16/19 23 Active CPAP 1 Device every night at bedtime. 0 Active Insulin Glargine Solostar 100 UNIT/ML Subcutaneous Solution Pen-injector (Lantus SoloStar)Indications:Ty pe 2 diabetes mellitus with hyperosmolarity without coma, without long-term current use of insulin ([facility]) Inject 30 units daily 45 mL 1 12/18/19 23 Active Aspirin 81 MG Oral Tablet Chewable Take 1 Tablet by mouth in the morning. 90 Tablet 3 01/15/20 23 Active Atorvastatin Calcium 40 MG Oral Tablet (Lipitor)Indications:Dy slipidemia, goal LDL below 130 TAKE ONE TABLET [...] 23 Active Gabapentin 300 MG Oral Capsule (Neurontin)Indications: Acute on chronic combined systolic and diastolic congestive heart failure (HCC) Take 1 Capsule by mouth in the morning and 1 Capsule before bedtime. 180 Capsule 1 01/18/20 23 Active Magnesium Oxide -Mg Supplement 400 (240 Mg) MG Oral Tablet (Mag-Ox) Take 1 Tablet by mouth in the morning. 90 Tablet 3 01/20/20 Active Ferrous Sulfate 325 (65 Fe) MG Oral Tablet (Feosol) Take 1 Tablet by mouth daily with breakfast. 90 Tablet 3 02/16/20 Active Potassium Chloride ER 20 MEQ Oral Tablet Extended ReleaseIndications:Acut e on chronic combined systolic and diastolic congestive heart failure (HCC) Take 2 Tablets by mouth every morning AND 2 Tablets every evening. 360 Tablet 3 02/17/20 Active Torsemide 100 MG Oral Tablet (Demadex) Take 1.5 Tablets by mouth in the morning. 135 Tablet 3 02/17/20 Active Multivitamin Women 50+ Oral Tablet Take 1 tab by mouth daily 90 Tablet 3 02/18/20 Active B-12 1000 MCG Oral Tablet Take 1 and 1/2 tabs by mouth daily 135 Tablet 3 02/18/20 23 Active Vitamin C 500 MG Oral Tablet (Ascorbic Acid) Take 1 Tablet by mouth in the morning. 90 Tablet 3 02/18/20 Active Erythromycin 5 MG/GM Ophthalmic OintmentIndications:Exp osure keratoconjunctivitis of both eyes Instill 0.25 Inches into both eyes in the morning and 0.25 Inches at noon and 0.25 Inches in the evening and 0.25 Inches before bedtime. Dispense 8 tubes at a time.. 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 90 Tablet 3 03/30/20 23 Active LORazepam 0.5 MG Oral Tablet (Ativan)Indications:Anx iety state TAKE 1 TABLET 3 TIMES A DAY NEEDED FOR ANXIETY 40 Tablet 1 04/15/19 24 Active Nystatin 727142 UNIT/GM External Powder (Nystop) APPLY TO AFFECTED AREAS UNDER THE BREASTS THREE TIMES PER DAY NEEDED 30 g 1 09/14/19 23 024 Discontinued HYDROcodone-Acetaminoph en 5-325 MG Oral TabletIndications:Ather osclerosis of iroquois artery of left lower extremity with intermittent claudication (HCC),Pain of left lower extremity Take 1 Tablet by mouth every 6 hours as needed for Pain, Mild. 45 Tablet 0 04/15/19 24 024 Discontinued(R efill) documented as of this encounter (statuses as of 05/16/2023) Active Problems Problem Noted Date Diagnosed Date [...] to excess calories 0 08/09/2022 Atherosclerosis of iroquois ar jania of left lower extremity with intermittent claudication 08/09/2022 Coronary artery disease invo lving iroquois coronary artery of iroquois heart with angina pectoris 03/22/2022 Last Assessment [...] 12/21/2016 Overview: Diabetic retinopathy Rheumatoid arthritis of [facility] sites without rheumatoid factor 01/26/2016 Last [...] as of this encounter (statuses as of 05/16/2023) Resolved Problems Problem Noted Date Diagnosed Date [...] [facility] [place] DETECT Study: Project # [id number], Teaching Supervisor: Manny Santacruz, PhD. SUMMARY: Goal: Establish [...] contact study staff at ; after hours Teaching Supervisor via the [facility] control panel operator . Please contact study team before resolving/deleting from patients problem list. Study phone number: [phone]. Diagnosis changed due to Research Module. Go to Snapshot for study details. Encounter for examination fo r normal comparison and control in clinical research program 11/08/2018 12/10/2021 Overview: DO NOT DELETE - [facility] [place] Study: Project # [id number], Teaching Supervisor: Kevin Pearce, MS, MPH. SUMMARY: Goal: [...] contact study staff at ; after hours Teaching Supervisor via the [facility] control panel operator . - Please contact study team before resolving/deleting from patients problem list. Study phone number: [phone]. Diagnosis changed due to Research Module. Go [...] as of this encounter (statuses as of 05/16/2023) Immunizations Name Administration Dates Next Due COVID-19 mRNA, LNP-s, No Pre serve, 2-Dose Series (Moderna) 06/08/2021,12/17/2020,06/23/2020,11/2020 H1N1 2009 Influenza, IM 04/06/2009 MMR - Measles/Mumps/Rubella Vaccine 05/07/2019 PPD 09/09/2010,10/06/2009 Pneumococcal Conjugate Vacc, 13 Valent (Prevnar) 02/12/2015 Pneumococcal Polysaccharide PPV23 (Pneumovax) 05/07/2019,12/27/2013,10/24/2008 Seasonal Influenza Virus Vac cine, Unspecified Formulation 01/27/2021,12/25/2019,02/08/2019,01/10,01/11/2017,03/17/2016,02/13/20 15,12/27/2013,01/31/2013,12/22/2011,0 12/28/2010,01/08/2010,01/18/2008 Seasonal Influenza, PF, 6 M & above, IM , (FluLaval or Fluzone) 12/25/2019,02/08/2019,02/01/2018,100 06/2016,04/10/2009,04/06/2009 02/09/2020 Seasonal Influenza, Quadriva lent Hd [...] Date Smoking Tobacco: Never Smokeless Tobacco: Never Tobacco Cessation:Counseling Given: Not Answered Alcohol Use Standard Drinks/Week Comments No 0 [...] on file documented as of this encounter Last Filed Vital Signs Vital Sign Reading Time Taken Comments Blood Pressure 122/74 04/25/2023 1:10 PM EST Pulse 77 04/25/2023 1:10 PM EST Temperature 36.6 C (97.9 F) 04/25/2023 1:10 PM ES T Respiratory Rate 20 04/25/2023 1:10 PM EST Oxygen Saturation 97% 04/25/2023 1:10 PM EST Inhaled Oxygen Concentration - - Weight - - Height 160 cm (5' 3") 04/25/2023 1:10 PM EST Body Mass Index - - documented in this encounter Functional Status Functional Status Response [...] No 03/22/2022 documented as of this encounter Patient Instructions * Patient Instructions* Lizz Arteaga LPN - 04/25/2023 1:10 PM EST Patient Instructions - Fall Prevention (This education is for all patients over 65 regardless of symptoms) Remember to take your current medications as prescribed. In order to prevent falls, you are encouraged to: Exercise Utilize assistive/adaptive devices Avoid multifocal lenses when walking Avoid hazards in home Maintain a regular toileting schedule Any questions please contact our office. Preventing Falls in the Home (This education is for all patients over 65 regardless of symptoms) As you get older, falls are more likely. Thats because your reaction time slows. Your muscles and joints may also get stiffer, making them less flexible. Illness, medications, and vision changes can also affect your balance. A fall could leave you unable to live on your own. To make your home safer, follow these tips: Floors Put nonskid pads under area rugs Remove throw rugs Replace worn floor coverings Tack carpets firmly to each step on carpeted stairs. Put nonskid strips on the edges of uncarpeted stairs Keep floors and stairs free of clutter and cords Arrange furniture so there are clear pathways Clean up any spills right away Bathrooms Install grab bars in the tub or shower Apply nonskid strips or put a nonskid rubber mat in the tub or shower Sit on a bath chair to bathe Use bathmats with nonskid backing Lighting Keep a flashlight in each room Put a nightlight along the pathway between the bedroom and the bathroom Sandra Patient Education Copyright 2008 - 2010 Sandra except where otherwise noted Preventing Falls: Exercises to Improve Balance, Flexibility, Strength, and Staying Power (This education is for all patients over 65 regardless of symptoms) Certain types of exercises may help make you less likely to fall. Try the ones below. Or do other exercises that your healthcare provider suggests. Depending on your health, you may need to start slowly. Dont let that stop you. Even small amounts of exercise can help you. Be sure to talk to yourhealthcare provider before starting any exercise program. Improve Balance Many types of exercise can help improve balance. Jose D chi and yoga are good examples. Heres another one to try. You can do it anytime and almost anywhere. Stand next to a counter or solid support. Push yourself up onto your tiptoes. Hold for 5 seconds. If you start to lose your balance, hold on to the counter. Rest and repeat 5 times. Work up to holding for 20 to 30 seconds, if you can. Increase Flexibility Being more flexible makes it easier for you to move around safely. Try exercises like the seated hamstring stretch. Sit in a chair and put one foot on a stool. Straighten your leg and reach with both hands down either side of your leg. Reach as far down your leg as you can. Hold for about 20 seconds. Go back to the starting position. Then repeat 5 times. Switch legs. Build Strength Resistance exercises help build strength. You can do them without equipment. Or you can use weights, elastic bands, or special machines. One such exercise is called the biceps curl. You can hold a 1 pound weight or even a can of soup. Do this exercise at least 3 times a week. Strive for everyday. Sit up straight in a chair. Keep your elbow close to your body and your wrist straight. Bend your arm, moving your hand up to your shoulder. Then slowly lower your arm. Repeat 5 times. Switch to the other arm. Build Your Staying Power Aerobic exercises make your heart and lungs stronger so you can keep moving longer. Walking and swimming are two of the best types of exercises you can do. Using a stationary bike is great, too. Find an aerobic exercise that you enjoy. Start slowly and build up. Even 5 minutes is helpful. Aimfor a goal of 30 minutes, at least 3 times a week. You dont have to do 30 minutes in one session. Break it up and walk a little throughout the day. More Helpful Tips Start easy. Slowly work up to doing more. Talk with your healthcare provider about the best exercises for you. Call senior centers or health clubs about exercise programs. If needed, have a family member watch you walk every so often to check your stability. Exercise with a friend. Choose an activity you both enjoy. Try exercises that you can do anytime, anywhere. Here are two examples. Have someone with you when you first try these: Practice walking by placing one foot right in front of the other. Stand up and sit down 10 times. Repeat this throughout the day. Jeeves Patient Education Copyright 2008 - 2010 Jeeves except where otherwise noted. Preventing Falls: Moving Safely Using a Cane or Walker (This education is for all patients over 65 regardless of symptoms) Keep the cane away from your feet so you dont trip. A walking aid, such as a cane or walker, can help you stay more independent and avoid falls. Remember to keep your walking aid within easy reach when youre in a chair or in bed. And learn how to use it safely so you dont injure yourself. Using a Cane If you have a stronger side, hold the cane on that side. Get your balance. Move the cane and your weaker leg forward. Support your weight on both the cane and your weaker side. Step with your stronger leg. Start again from step 1. If youre using a folding walker, be sure you know how to lock it open. Check that its locked open before each use. Using a Walker Roll the walker (or lift it, if youre using one without wheels) forward about 12 inches. Step forward with your weaker leg first. Use the walker to help keep your balance. Bring your other foot forward to the center of the walker. Start again from step 1. Helpful Tips Check with your healthcare provider about the right walking aid to use. Ask about a walker with a seat attached. Check the tips of your cane or walker to make sure they have nonskid covers. Move slowly from room to room. Dont henriquez. Sit down to get dressed. Use a archie pack or backpack to keep your hands free. Get help for jobs that mean climbing, even on a stepstool. Sandra Patient Education Copyright 2008 - 2010 Sandra except where otherwise noted. Urinary Incontinence Plan of Care Documentation: (This education is for all patients over 65 regardless of symptoms) Current medications reconciled. Patient encouraged to: Practice kegal exercises Provide education materials Use the restroom every 2 hours throughout the day Limit caffeine, alcohol, spicy foods and acidic foods Keep a bladder diary Limit fluid intake 3-4 hours before bed Lose weight Prevent constipation Take fluid pills at a time when you can get to the bathroom quickly Control sugar better if diabetic Limit fluid intake to 60 oz. per day Wear support stockings (TEDs)if you have edema Lizz Arteaga LPN 04/25/2023 Kegel Exercises Kegel exercises dont require special clothing or equipment. Theyre easy to learn and simple to do. And if you do them right, no one can tell youre doing them, so they can be done almost anywhere. Your doctor, nurse, or physical therapist can answer any questions you have and help you get started. A Weak Pelvic Floor The pelvic floor muscles may weaken due to aging, and vaginal childbirth, injury, surgery, chronic cough, or lack of exercise. If the pelvic floor is weak, your bladder and other pelvic organs may sag out of place. The urethra may also open too easily and allow urine to leak out. Kegel exercises can help you strengthen your pelvic floor muscles so they can better support the pelvic organs and control urine flow. How Kegel Exercises Are Done Try each of the Kegel exercises described below. When youre doing them, try not to move your leg, buttock, or stomach muscles. While youre urinating, try to stop the flow of urine. Start and stop it as often as you can. Contract as if you were stopping your urine stream, but do it when youre not urinating. Tighten your rectum as if trying not to pass gas. Contract your anus, but dont move your buttocks. Helpful Hints Do your Kegels as often as you can. The more you do them, the faster youll feel the results. Pick an activity you do often as a reminder. For instance, do your Kegels every time you sit down. Tighten your pelvic floor before you sneeze, get up from a chair, cough, laugh, or lift. This protects your pelvic floor from injury and can help prevent urine leakage. Try to hold each Kegel for a slow count to five. You probably wont be able to hold them for thatlong at first, but keep practicing. It will get easier as your pelvic floor gets stronger. Eventually, special weights that you place in your vagina may be recommended to help make your Kegels even more effective. [employer] Patient Education Copyright 2008 - 2010 [employer]eves except where otherwise noted. Here are some helpful tips for your urinary incontinence: (This education is for all patients over 65 regardless of symptoms) Practice Kegel exercises Use the restroom every 2 hours throughout the day Limit caffeine, alcohol, spicy foods, and acidic foods Keep a bladder diary Limit fluid intake 3-4 hours before bed Lose weight Prevent constipation Take fluid pills at a time when can get to the bathroom quickly Control sugar better if diabetic Limit fluid intake to 60 oz. per day Any questions, please feel free to contact our office. documented in this encounter Progress Notes * David Umanzor MD - 04/25/2023 1:53 PM EST Subjective: Orquidea Valencia is a 73 year old female here today for Chief Complaint Patient presents with Status Check Return in 6 months Pt presents for recheck. She continues to have significant stressors at home. Has lost some of her assistance at home due to being turned down for a waiver. Used to get [employer] and an aide in [facility] [employer] dropped her due to not having waiver. department coordinator - Dorothy Lazo. [facility]. They gave the waiver. 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, not at goal (HCC) 10/24/2008 Type 2 DM with neuropoathy DM type 2 causing renal disease, not at goal (HCC) dx 1979 Type 2 DM with nephropathy Gastric ulcer High triglycerides TGs as high as 8800 Hypertensive heart and kidney disease with heart failure (HCC) 09/10/2021 Hypopotassemia Intervertebral disc prolapse L5-S1 disc herniation; chronic LBP Malignant neoplasm of thyroid gland ([facility]) 2000 Very small area of Papillary Cancer Menopause 1982 Surgical Morbid obesity with BMI of 50.0-59.9, adult ([facility]) 11/15/2017 Nephrolithiasis 09/03/2021 DUPLICATE Non-toxic multinodular goiter 2000 Had surgery; main nodules were benign Obstructive sleep apnea on CPAP 03/31/2012 Papillary carcinoma of thyroid ([facility]) 09/03/2021 Postsurgical hypothyroidism S/P primary angioplasty with coronary stent 03/22/2022 S/P WALTER to mid LAD on 03/22/2022 Toxic diffuse goiter 1969's Treated with anti-thyroid drug therapy Unspecified polyarthropathy or polyarthritis, other specified sites 1979' Past Surgical History: Procedure Laterality Date APPENDECTOMY W/OTHER PROCEDURE 1982 Removed during hysterectomy CARPAL TUNNEL SURGERY Bilateral CATARACT SURGERY,COMPLEX 2001 OS, without IOL CLOSE EYELID BY SUTURE Right 12/24/2016 COLONOSCOPY, DIAGNOSTIC (RECTUM) 07/17/2014 adenomatous polyps, repeat 1 yr/[facility] COLONOSCOPY, DIAGNOSTIC (RECTUM) 08/25/2015 adenomatous polyps, diverticulosis, lipoma, repeat 3 yrs/[facility] COLONOSCOPY, DIAGNOSTIC (RECTUM) 01/11/2019 adenomatous polyps, repeat 3 yrs/[facility] CORONARY ANGIOGRAPHY W/LEFT HEART CATH Right 03/22/2022 CORONARY ANGIOGRAPHY W/LEFT HEART CATH performed by Katalina Pearce MD [place] [facility] [place] 07/10/2012 INFORMATION Right 12/03/2021 cysto, stents INSERT/REPLACE PACEMAKER,ATRIAL/VENTRICULAR Left 12/29/2021 NEW DDD PACEMAKER IMPLANT performed by Fatoumata Roland DO at OR [facility] IR ARTERIAL EMBOLIZATION 11/14/2020 IR ARTERIAL INTERVENTION 11/02/2019 IR BIOPSY 10/01/2019 IR CANCER SIR SPHERES EMBOLIZATION 10/18/2022 IR CANCER SIR SPHERES EMBOLIZATION 02/28/2023 MISCELLANEOUS ORDER ([facility] ONLY) Right 05/04/2017 Notz - tarrrsorophy eyelid MISCELLANEOUS ORDER ([facility] ONLY) Bilateral 08/10/2017 Notz - tarrrsorophy eyelid ou REMOVAL OF THYROID LOBE, TOTAL 07/2010 right lobe and isthmus REMOVE CATARACT, INSERT LENS PROSTH 2001 REMOVE GALLBLADDER 1987 REPLACE AORTIC VALVE, PERCUTANEOUS FEMORAL Bilateral 12/09/2022 REPLACE AORTIC VALVE, PERCUTANEOUS FEMORAL performed by Manolo Millan MD [place] [facility] REPLACE AORTIC VALVE, PERCUTANEOUS FEMORAL Bilateral 12/09/2022 REPLACE AORTIC VALVE, PERCUTANEOUS FEMORAL performed by Thony Valdivia MD at [facility] TOTAL HYSTERECTOMY 1982 MARLIN.BSO for Endometriosis Review of patient's allergies indicates: Allergen Reactions Cephalosporins Anaphylaxis and Edema face/lips/tongue Anaphylaxis to cefaclor, facial swelling to cephalexin. Sulfa Antibiotics Hives Other reaction(s): Hives Bactrim Stadol [Butorphanol Tartrate] Heart racing Trimethoprim Other reaction(s): Hives Ciprofloxacin Other reaction(s): Nausea Current Outpatient Medications Medication Sig Dispense Refill TYLENOL ARTHRITIS PAIN 650 MG PO TBCR Take by mouth as needed. 0 NEBULIZER/TUBING/MOUTHPIECE KIT use with nebs 1 pack 5 MULTIVITAMIN/IRON PO TABS 1 daily BIOTENE MOISTURIZING MOUTH MT SOLN use four times daily 1 Bottle 1 Blood Glucose Monitoring Suppl ([employer] AUTOCODE BLOOD GLUCOSE) w/Device KIT Test blood sugar 4 times daily Dx: E11.9 1 Kit 0 [employer] LANCETS 28G [facility] TEST BLOOD SUAGER 4 TIMES A DAY DX E11.9 500 Each 3 Probiotic Daily Oral Capsule Take 1 Cap by mouth daily. Nitroglycerin 0.4 MG Sublingual Tablet Sublingual (Nitrostat) 1tablet under tongue every 5 min as needed with chest pain up to 3 doses in 15 minutes 25 Tablet 3 Meclizine HCl 25 MG Oral Tablet (Antivert) TAKE 1 TAB BY MOUTH 3 TIMES A DAY NEEDED FOR DIZZINESS. 30 Tablet 1 Melatonin 5 MG Oral Capsule Take 1 Capsule by mouth at bedtime. Ammonium Lactate 12 % External Cream Apply topically to affected area as needed . Every night Tamsulosin HCl 0.4 MG Oral Capsule Take 1 Capsule by mouth in the morning. Takes at bedtime . Prodigy No Coding Blood Gluc In Vitro Strip (Glucose Blood) TEST BLOOD SUGAR UP TO FOUR TIMES [id number] Strip 3 Fluticasone Propionate 50 MCG/ACT Nasal Suspension (Flonase) ADMINISTER 2 SPRAYS IN EACH NOSTRIL EACH MORNING 48 g 1 tiZANidine HCl 2 MG Oral Tablet (Zanaflex) TAKE 1 TABLET BY MOUTH EVERY 6 HOURS NEEDED FOR MUSCLE SPASM 30 Tablet 0 Insulin Syringe-Needle U-100 31G X 5/16" 1 ML (ReliOn Insulin Syringe) USE WITH INSULIN 4 TIMES DAILY 400 Each 3 Betaxolol HCl 0.5 % Ophthalmic Solution Instill 1 Drop into the left eye in the morning and 1 Drop before bedtime. 10 mL 5 Brimonidine Tartrate 0.2 % Ophthalmic Solution (Alphagan) Instill 1 Drop into the left eye in the morning and 1 Drop before bedtime. 15 mL 3 Folic Acid 1 MG Oral Tablet Take 1 Tablet by mouth in the morning. 90 Tablet 3 BD Pen Needle Corinna U/F 32G X 4 MM (Insulin Pen Needle) Use to inject insulin 4 times daily 400 Each3 Creon [id number] UNIT Oral Capsule Delayed Release Particles (Pancrelipase (Ikh-Gcfh-Wcuj)) TAKE ONE CAPSULE BY MOUTH WITH EACH MEAL AND SNACK (PT WANTD FOUR TIMES A DAY ALL CELLS) 120 Capsule 11 Levothyroxine Sodium 125 MCG Oral Tablet (Levoxyl) (NIP) TAKE ONE TABLET BY MOUTH EVERY MORNING AT LEAST 30 MINUTES PRIOR TO FIRST MEAL OF THE DAY 90 Tablet 2 Rhopressa 0.02 % Ophthalmic Solution (Netarsudil Dimesylate) Instill 1 Drop into the left eye everynight at bedtime. 2 mL 5 NovoLOG FlexPen 100 UNIT/ML Subcutaneous Solution Pen-injector (insulin aspart) Inject 10 units with breakfast, 4 units with lunch, and 10 units with PM meal. Inject 4 units if BG is >200. 30 mL 5 Acetaminophen 500 MG Oral Tablet Take 1 Tablet by mouth at bedtime. Latanoprost 0.005 % Ophthalmic Solution (Xalatan) Instill 1 Drop into both eyes at bedtime. Please dispense 90 day supply 7.5 mL 1 Omeprazole 20 MG Oral Capsule Delayed Release (PriLOSEC) TAKE ONE CAPSULE BY MOUTH EVERY MORNING 90Capsule 2 CPAP 1 Device every night at bedtime. Insulin Glargine Solostar 100 UNIT/ML Subcutaneous Solution Pen-injector (Lantus SoloStar) Inject 30 units daily 45 mL 1 Aspirin 81 MG Oral Tablet Chewable Take 1 Tablet by mouth in the morning. 90 Tablet 3 Atorvastatin Calcium 40 MG Oral Tablet (Lipitor) TAKE ONE TABLET BY MOUTH EVERY MORNING (PT TAKES DAILY AT BEDTIME) 90 Tablet 3 Metoprolol Succinate ER 25 MG Oral Tablet Extended Release 24 Hour (Toprol XL) Take 0.5 Tablets by mouth 2 times a day. 90 Tablet 3 Spironolactone 25 MG Oral Tablet (Aldactone) Take 1 Tablet by mouth in the morning. 90 Tablet 3 Gabapentin 300 MG Oral Capsule (Neurontin) Take 1 Capsule by mouth in the morning and 1 Capsule before bedtime. 180 Capsule 1 Magnesium Oxide -Mg Supplement 400 (240 Mg) MG Oral Tablet (Mag-Ox) Take 1 Tablet by mouth in the morning. 90 Tablet 3 Ferrous Sulfate 325 (65 Fe) MG Oral Tablet (Feosol) Take 1 Tablet by mouth daily with breakfast. 90Tablet 3 Potassium Chloride ER 20 MEQ Oral Tablet Extended Release Take 2 Tablets by mouth every morning AND2 Tablets every evening. 360 Tablet 3 Torsemide 100 MG Oral Tablet (Demadex) Take 1.5 Tablets by mouth in the morning. 135 Tablet 3 Multivitamin Women 50+ Oral Tablet Take 1 tab by mouth daily 90 Tablet 3 B-12 1000 MCG Oral Tablet Take 1 and 1/2 tabs by mouth daily 135 Tablet 3 Vitamin C 500 MG Oral Tablet (Ascorbic Acid) Take 1 Tablet by mouth in the morning. 90 Tablet 3 Erythromycin 5 MG/GM Ophthalmic Ointment Instill 0.25 Inches into both eyes in the morning and 0.25Inches at noon and 0.25 Inches in the evening and 0.25 Inches before bedtime. Dispense 8 tubes at atime.. 28 g 6 Hydroxychloroquine Sulfate 200 MG Oral Tablet (Plaquenil) TAKE TWO TABLETS BY MOUTH DAILY AT BEDTIME 180 Tablet 0 predniSONE 5 MG Oral Tablet (Deltasone) TAKE ONE TABLET BY MOUTH ONCE DAILY 30 Tablet 2 Methotrexate Sodium 2.5 MG Oral Tablet TAKE FOUR TABLETS BY MOUTH ONCE WEEKLY (TUESDAY 9AM) 16 Tablet 2 Clopidogrel Bisulfate 75 MG Oral Tablet (pLAVix) Take 1 Tablet by mouth in the morning. 90 Tablet 3 LORazepam 0.5 MG Oral Tablet (Ativan) TAKE 1 TABLET 3 TIMES A DAY NEEDED FOR ANXIETY 40 Tablet 1 Nystatin 167998 UNIT/GM External Powder (Nyamyc) APPLY TO AFFECTED AREAS UNDER THE BREASTS THREE TIMES A DAY NEEDED 30 g 1 Sertraline HCl 25 MG Oral Tablet (Zoloft) Take 1 Tablet by mouth in the morning. 90 Tablet 3 metOLazone 2.5 MG Oral Tablet (Zaroxolyn) Take 1 Tablet by mouth in the morning. Daily for 5 days only.. 30 Tablet 0 HYDROcodone-Acetaminophen 5-325 MG Oral Tablet Take 1 Tablet by mouth every 6 hours as needed for Pain, Mild. 45 Tablet 0 No current facility-administered medications for this visit. Objective: BP 122/74 | Pulse 77 | Temp 36.6 C (97.9 F) (Temporal Artery) | Resp 20 | Ht 1.6 m (5' 3") | SpO2 97% | BMI 41.63 kg/m | BSA 2.18 m GEN: NAD HEENT: Benign NECK: Supple with no LAD, TM, JVD CHEST: CTA B CV: RRR ABD: Soft, NT/ND, No HSM, NABS EXT: No c,c,e Assessment and Plan: Type 2 diabetes mellitus with hypoglycemia without coma, with long-term current use of insulin (HCC) (Primary) - HEMOGLOBIN A1C; Future; Expected date: 04/25/2023 - TSH WITH FREE T4 IF INDICATED; Future; Expected date: 04/25/2023 Risk and functional assessment Stage 3a chronic kidney disease (HCC) - BASIC METABOLIC PANEL; Future; Expected date: 04/25/2023 - PTH; Future; Expected date: 04/25/2023 Diabetes mellitus, type II, insulin dependent (HCC) Other sleep apnea 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 (HCC) Acute on chronic combined systolic and diastolic congestive heart failure (HCC) 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 Will see if we can help get assistance - ? Geta social service manager or senior case manager involved. Follow Up: Return in about 4 months (around 08/24/2023). 32 min with pt and chart review David Umanzor MD documented in this encounter Nursing Notes * Lizz Arteaga LPN - 04/25/2023 1:10 PM EST The patient has been properly identified by confirmation of name and date of . Chief Complaint Patient presents with Status Check Return in 6 months documented in this encounter Plan of Treatment Upcoming Encounters Date Type Department Care Team (Late st Contact Info) Description 05/26/2023 2:00 PM EST Laboratory Laboratory, [place] [address] [place] [address] [facility] [address] [place] [address] 05/27/2023 4:00 PM EST [facility] [address] [facility] [address] Tatyana Delaney RN [address] [facility] [address] 05/31/2023 1:30 PM EST Imaging Radiology [address] [facility] [address] 06/06/2023 2:40 PM EST Pharmacy Pharmacy, [place] [address] [place] [address] [facility] [address] [facility] [address] 06/07/2023 1:20 PM EST Office Visit [facility] [address] [facility] [place] [phone] Vira Byrd, DO [address] [place] [address] 07/27/2023 3:00 PM EDT Office Visit Cardiology, [facility] [address] [place] [address] [address] Wong PAGnia [address] [place] [address] 08/01/2023 2:00 PM EDT Laboratory Laboratory, [place] [address] [place] [address] [facility] [address] [place] [address] 08/02/2023 2:00 PM EDT Office Visit Rheumatology [facility] [address] [facility] [place] [address] Eliot Castelan CRNP [address] [facility] [place] [address] 08/08/2023 12:30 PM EDT Office Visit Hematology/Oncology [facility] [address] [facility] [place] [address] Miguel A Alcantar MD [address] [facility] [place] [address] 08/18/2023 1:30 PM EDT Office Visit Nephrology, [facility] [address] [place] [address] Ana Lin PA-C [address] [place] [address] 10/11/2023 5:40 PM EDT Office Visit Family [facility], [place] [address] [facility] [address] David Umanzor [facility] [address] [address] 03/07/2024 1:00 PM EST Office Visit Cardiology, [facility] [address] [place] [address] Manolo Millan MD [address] [place] [facility] [place] [address] Scheduled Procedures Name Priority Associated Diagnoses [...] Additional history exists CKD PHOS USE SMARTSET 16941 12/02/202311/10, 08/06/2022, 08/21/2021, Additional history exists CKD HGB USE SMARTSET 49553 03/25/202403/25, 03/25/2023, 02/28/2023, Additional history exists TSH [...] this encounter Medical Devices Implanted Type Area Boilermaker Mechanic Device Identifier Shelf Expiration Date Model / Serial / Lot meQuilibrium Medical Embosphere Micrspheres Implanted:Qty: 2 on 11/02/2019 by Ish Grove MD at [facility] Right: Abdomen [employer] 05/11/2022 S220GH / [id number] / [id number] Syr Pf 2ml Embospheres 100-300 - [id number] Implanted:Qty: 1 on 11/14/2020 at [facility] [employer] [id number] 08/22/2023 S220GH / / [id number] Envelope Antibacterial Tyrx - [id number] Implanted:Qty: 1 on 12/29/2021 by Fatoumata Roland DO at OR [facility] [employer] : CRM [id number] 09/23/2022 CMR [id number] / / [id number] Stent Synergy Xd Mr 3.41n55lu - [id number] Implanted:Qty: 1 on 03/22/2022 by Katalina Pearce MD at [facility] [employer] [id number] 07/17/2023 [id number] / [id number] Valve Berhane 3 Ultra 26mm - [id number] Implanted:Qty: 1 on 12/09/2022 by Manolo Millan MD at [facility] [employer] [id number] 12/04/2023 [id number] / / documented as of this encounter Results * (ABNORMAL) PTH (04/25/2023 2:17 PM EST) [facility] PTH 80(H) 15 - 65 pg/mL 04/26/2023 10:06 AM EST [facility] Blood Venous blood specimen / Unknown Venipuncture / Unknown 04/25/2023 2:17 PM EST 04/25/2023 2:25 PM EST David Umanzor MD LAB BLOOD ORDERABL ES Performing Organization Address City/[facility] [address]/ZIP Co de Phone Number LABORATORY [place] [address] [place] [address] * TSH WITH FREE T4 IF INDICATED (04/25/2023 2:17 PM EST) [facility] TSH 1.58 0.27 - 4.20 uIU/mL 04/26/2023 10:06 AM EST [facility] Blood Venous blood specimen / Unknown Venipuncture / Unknown 04/25/2023 2:17 PM EST 04/25/2023 2:25 PM EST David Umanzor MD LAB BLOOD ORDERABL ES Performing Organization Address City/[facility] [address]/ZIP Co de Phone Number LABORATORY [address] [address] * (ABNORMAL) BASIC METABOLIC PANEL (04/25/2023 2:17 PM EST) [facility] BUN 31(H) 6 - 20 mg/dL 04/26/2023 8:00 AM EST [facility] Creatinine 1.2(H) 0.5 - 1.0 mg/dL 04/26/2023 8:00 AM EST [facility] Estimated Glomerular Filtration Rate 50(L) >=60 mL/min 04/26/2023 8:00 AM EST [facility] Comment:eGFR is calculated b ased on the CKD-EPI 2020 equation Sodium 137 135 - 146 mmol/L 04/26/2023 8:00 AM EST [facility] Potassium 4.7 3.5 - 5.1 mmol/L 04/26/2023 8:00 AM EST [facility] Chloride 100 98 - 107 mmol/L 04/26/2023 8:00 AM EST [facility] CO2 27 22 - 32 mmol/L 04/26/2023 8:00 AM EST [facility] Anion Gap 10 7 - 15 mmol/L 04/26/2023 8:00 AM EST [facility] Glucose 200(H) 70 - 120 mg/dL 04/26/2023 8:00 AM EST [facility] Calcium 8.9 8.4 - 10.2 mg/dL 04/26/2023 8:00 AM EST [facility] Blood Venous blood specimen / Unknown Venipuncture / Unknown 04/25/2023 2:17 PM EST 04/25/2023 2:25 PM EST David Umanzor MD LAB BLOOD ORDERABL ES [facility] [address] [place] [address] * (ABNORMAL) HEMOGLOBIN A1C (04/25/2023 2:17 PM EST) Hemoglobin A1C 7.7(H) 4.0 - 5.6 % 04/26/2023 8:20 AM EST [facility] Comment:The use of HbA1c to monitor glycemic status is based on normal hemoglobin and HbA composition. This test should not be used in patients with abnormal hemoglobin that affects the half life of the red blood cell or the in vivo glycation rates. Estimated Average Glucose 174(H) <126 mg/dL 04/26/2023 8:20 AM EST [facility] Blood Venous blood specimen / Unknown Venipuncture / Unknown 04/25/2023 2:17 PM EST 04/25/2023 2:25 PM EST David Umanzor MD LAB BLOOD ORDERABL ES [facility] [address] [place] [address] documented in this encounter Visit Diagnoses Diagnosis Type 2 diabetes mellitus with hypoglycemia without coma, with long-term current use of insulin (HCC)- Primary Risk and functional assessment Screening for unspecified condition Stage 3a chronic kidney disease (HCC) Diabetes mellitus, type II, insulin dependent (HCC) Type II or unspecified type diabetes mellitus without mention of complication, not stated as uncontrolled Other sleep apnea 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 (HCC) Atherosclerosis of iroquois arteries of the extremities with intermittent claudication Acute on chronic combined systolic and diastolic congestive heart failure (HCC) Acute on chronic combined systolic and diastolic heart failure 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 No Care Teams Fixed Income Portfolio Manager Relationship Specialty Start Date End Date David Umanzor MD [address] [place] [address] PCP - General 02/25/09 documented as of this encounter
--- OUTSIDE RECORDS SUMMARY | 2023-05-28 21:26 | External Medical Summary | Summary of Care ---
Author Name Unknown Organization [facility] Address [address] [place] [address] Phone [phone] Care Team Providers Care Senior Clinical Project Manager Name Role Phone David Umanzor MD Primary Care Provider [phone]- [phone] Reason for Visit * Reason Onset Date Comments Information 05/17/2023 Encounter Details Date Type Department Care Team (Late st Contact Info) Description 05/17/2023 Telephone NephrologyRaphael [place] [address] [place] [address] TobiasLuz jacques MD [address] [place] [address] Information Allergies Active Allergy Reactions Criticality Noted Date Comments Bactrim 02/09/2010 Cephalosporins Anaphylaxis,Edema face/lips/tongue High 04/11/2009 Anaphylaxis to cefaclor, facial swelling to cephalexin. Ciprofloxacin Low 03/30/2021 Other reaction(s): Nausea Butorphanol Tartrate 02/09/2010 Heart racing Sulfa Antibiotics Hives High 05/22/2002 Other reaction(s): Hives Trimethoprim 04/15/2022 Other reaction(s): Hives documented as of this encounter (statuses as of 05/17/2023) Medications Medication Sig Dispensed Refills Start Date [...] neurological disease, not at goal ([facility]) Test blood sugar 4 times daily Dx: E11.9 1 Kit 0 9 Active PRODIGY LANCETS 28G MISCIndications:DM type 2, not at goal ([facility]) TEST BLOOD SUAGER 4 TIMES A DAY [...] goal of less than 7.0% ([facility]),Type 2 diabetes mellitus with stage 3 chronic kidney disease, with long-term current use of insulin, unspecified whether stage 3a or 3b CKD ([facility]),DM type 2 causing neurological disease, not at goal ([facility]) TEST BLOOD SUGAR UP TO FOUR TIMES DAILY 400 Strip 3 2 Active Fluticasone Propionate 50 MCG/ACT Nasal Suspension (Flonase)Indications:Delivery Technician sanket rhinitis ADMINISTER 2 SPRAYS IN [...] long-term current use of insulin ([facility]) Use to inject insulin 4 times daily 400 Each 3 3 Active Creon 45161-40334 UNIT Oral Capsule Delayed Release Particles (Pancrelipase (Hln-Mkxp-Fdac))Indicatio ns:Pancreatic insufficiency TAKE ONE CAPSULE BY MOUTH [...] long-term current use of insulin ([facility]) Inject 10 units with breakfast, 4 units with lunch, and 10 units with PM meal. Inject 4 units if BG is >200. 30 mL 5 3 Active Acetaminophen 500 MG Oral TabletIndications:HFrEF (heart failure with reduced ejection fraction) ([facility]),Coronary artery disease involving tribal coronary artery of tribal heart without angina pectoris,Nonrheumatic aortic valve stenosis,Cardiac [...] long-term current use of insulin ([facility]) Inject 30 units daily 45 mL 1 [...] Active Gabapentin 300 MG Oral Capsule (Neurontin)Indications:Ac [place] on chronic combined systolic and diastolic congestive [...] ANXIETY 40 Tablet 1 4 Active Nystatin 160111 UNIT/GM External Powder (Nyamyc) APPLY TO AFFECTED [...] HYDROcodone-Acetaminophen 5-325 MG Oral TabletIndications:Atheros clerosis of tribal artery of left lower extremity with intermittent claudication (HCC),Pain of left lower extremity Take 1 Tablet by mouth every 6 hours as needed for Pain, Mild. 45 Tablet 0 4 Active documented as of this encounter (statuses as of 05/17/2023) Active Problems Problem Noted Date Diagnosed Date [...] to excess calories 0 08/09/2022 Atherosclerosis of tribal ar jania of left lower extremity with intermittent claudication 08/09/2022 Coronary artery disease invo lving tribal coronary artery of tribal heart with angina pectoris 03/22/2022 Last Assessment [...] Overview: Diabetic retinopathy Rheumatoid arthritis of [facility] sites without rheumatoid factor 01/26/2016 Last [...] as of this encounter (statuses as of 05/17/2023) Resolved Problems Problem Noted Date Diagnosed Date [...] DELETE [facility] DETECT Study: Project # [id number], Employment Office Clerk: Manny Santacruz, PhD. SUMMARY: Goal: Establish [...] contact study staff at ; after hours Employment Office Clerk via the [facility] hot sealing machine operator . Please contact study team before resolving/deleting from patients problem list. Study phone number: [phone]. Diagnosis changed due to Research Module. Go to Snapshot for study details. Encounter for examination fo r normal comparison and control in clinical research program 11/08/2018 12/10/2021 Overview: DO NOT DELETE - [facility] Study: Project # [id number], Employment Office Clerk: Kevin Pearce, MS, MPH. SUMMARY: Goal: [...] contact study staff at ; after hours Employment Office Clerk via the [facility] hot sealing machine operator . - Please contact study team before resolving/deleting from patients problem list. Study phone number: [phone]. Diagnosis changed due to Research Module. Go [...] as of this encounter (statuses as of 05/17/2023) Immunizations Name Administration Dates Next Due COVID-19 [...] Description 05/26/2023 2:00 PM EST Laboratory Laboratory, [place] [address] [place] [address] Twyla Quick [address] [place] [address] 05/27/2023 4:00 PM EST [facility], [facility] [place] [address] Tatyana Delaney, RN [facility] [place] [address] 05/31/2023 1:30 PM EST [facility] 132 [facility] [place] [address] 06/06/2023 2:40 PM EST Pharmacy Pharmacy, [place] [address] [place] [address] [facility] [address] [place] [address] 06/07/2023 1:20 PM EST Office Visit [facility] [phone] Vira Byrd DO 132 [facility] [place] [address] 07/27/2023 3:00 PM EDT Office Visit Cardiology, [facility] 132 [facility] [place] [address] Wood Wong PAGina 132 [facility] [address] 08/01/2023 2:00 PM EDT Laboratory Laboratory, [place] [address] [place] [address] [facility] [address] [place] [address] 08/02/2023 2:00 PM EDT Office Visit [address]umatology [address] [place], [place] [address] Eliot Castelan CRNP [address] [facility] [place] [address] 08/08/2023 12:30 PM EDT Office Visit Hematology/Oncology [facility] [address] [facility] [place] [address] Miguel A Alcantar MD 200 [facility] [place] [address] 08/18/2023 1:30 PM EDT Office Visit Nephrology, [facility] [address] [facility] [place] [address] Ana Lin PA-C [address] [facility] [place] [address] 10/11/2023 5:40 PM EDT [facility] [address] [place] [address] David Umanzor MD [address], [place] [address] 03/07/2024 1:00 PM EST Office Visit Cardiology, [facility] 132 [place] [address] Manolo Millan MD [address] [place] [address] Scheduled Procedures Name Priority Associated [...] Additional history exists CKD PHOS USE SMARTSET 76371 12/02/202311/10, 08/06/2022, 08/21/2021, Additional history exists CKD HGB USE SMARTSET 42393 03/25/202403/25, 03/25/2023, 02/28/2023, Additional history exists TSH [...] this encounter Medical Devices Implanted Type Area Repairer Switchgear Device Identifier Shelf Expiration Date Model / Serial / Lot Triblio Medical Embosphere Micrspheres Implanted:Qty: 2 on 11/02/2019 by Ish Grove MD at [facility] Right: Abdomen [employer] 05/11/2022 S220GH / [id number] / [id number] Syr Pf 2ml Embospheres 100-300 - [id number] Implanted:Qty: 1 on 11/14/2020 at [facility] [employer] [id number] 08/22/2023 S220GH / / [id number] Envelope Antibacterial Tyrx - [id number] Implanted:Qty: 1 on 12/29/2021 by Fatoumata Roland DO at [facility] [employer] : CRM [id number] 09/23/2022 CMR [id number] / / [id number] Stent Synergy Xd Mr 3.68s81zm - [id number] Implanted:Qty: 1 on 03/22/2022 by Katalina Pearce MD at [facility] [employer] [id number] 07/17/2023 [id number] / / [id number] Valve Berhane 3 Ultra 26mm - [id number] Implanted:Qty: 1 on 12/09/2022 by Manolo Millan MD at [facility] [employer] [id number] 12/04/2023 [id number] / / documented as of this encounter [...] the patient have Health Care Power of Stations 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? No Care Teams Senior Clinical Project Manager Relationship Specialty Start Date End Date David Umanzor MD [address] [place] [address] PCP - General 02/25/09 documented as of this encounter
--- OUTSIDE RECORDS SUMMARY | 2023-05-28 21:26 | External Medical Summary | Summary of Care ---
Author Name Unknown Organization [facility] Address [address] [place] [facility] [place] [place] [address] Phone [phone] Care Team Providers Care Lining Marker Name Role Phone David Umanzor MD Primary Care Provider [phone]- [phone] Reason for Visit * Reason Onset Date Comments Information 05/17/2023 Encounter Details Date Type Department Care Team (Late st Contact Info) Description 05/17/2023 Telephone NephrologyRaphael [place] [address] [place] [address] TobiasLuz jacques MD [address] [place] [address] Information Allergies Active Allergy Reactions Criticality Noted [...] 2 causing neurological disease, not at goal ([facility]) Test blood sugar 4 times daily Dx: E11.9 1 Kit 0 9 Active PRODIGY LANCETS 28G MISCIndications:DM type 2, not at goal ([facility]) TEST BLOOD SUAGER 4 TIMES A [...] hemoglobin A1c goal of less than 7.0% ([facility]),Type 2 diabetes mellitus with stage 3 chronic kidney disease, with long-term current use of insulin, unspecified whether stage 3a or 3b CKD ([facility]),DM type 2 causing neurological disease, not at goal ([facility]) TEST BLOOD SUGAR UP TO FOUR TIMES DAILY 400 Strip 3 2 Active Fluticasone Propionate 50 MCG/ACT Nasal Suspension (Flonase)Indications:Cargo Tank Mechanic sanket rhinitis ADMINISTER 2 SPRAYS IN EACH [...] coma, without long-term current use of insulin ([facility]) Use to inject insulin 4 times daily 400 Each 3 3 Active Creon 19078-11891 UNIT Oral Capsule Delayed Release Particles (Pancrelipase (Vqh-Rvry-Ichv))Indicatio ns:Pancreatic insufficiency TAKE ONE CAPSULE BY MOUTH [...] coma, without long-term current use of insulin ([facility]) Inject 10 units with breakfast, 4 units with lunch, and 10 units with PM meal. Inject 4 units if BG is >200. 30 mL 5 3 Active Acetaminophen 500 MG Oral TabletIndications:HFrEF (heart failure with reduced ejection fraction) ([facility]),Coronary artery disease involving tun[place] coronary artery of tun[place] heart without angina pectoris,Nonrheumatic aortic valve stenosis,Cardiac [...] coma, without long-term current use of insulin (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 [...] ANXIETY 40 Tablet 1 4 Active Nystatin 040045 UNIT/GM External Powder (Nyamyc) APPLY TO AFFECTED [...] HYDROcodone-Acetaminophen 5-325 MG Oral TabletIndications:Atheros clerosis of [place] artery of left lower extremity with intermittent [...] to excess calories 0 08/09/2022 Atherosclerosis of [place] ar jania of left lower extremity with intermittent claudication 08/09/2022 Coronary artery disease invo lving [place] coronary artery of [place] heart with angina pectoris 03/22/2022 Last Assessment [...] 12/21/2016 Overview: Diabetic retinopathy Rheumatoid arthritis of [facility] sites without rheumatoid factor 01/26/2016 [...] [facility] DETECT Study: Project # [id number], Manufacturing Mechanic: Manny Santacruz, PhD. SUMMARY: Goal: Establish test [...] contact study staff at ; after hours Manufacturing Mechanic via the [facility] wet process operator . Please contact study team before resolving/deleting from patients problem list. Study phone number: [phone]. Diagnosis changed due to Research Module. Go to Snapshot for study details. Encounter for examination fo r normal comparison and control in clinical research program 11/08/2018 12/10/2021 Overview: DO NOT DELETE - [facility] Study: Project # [id number], Manufacturing Mechanic: Kevin Pearce, MS, MPH. SUMMARY: Goal: Establish [...] contact study staff at ; after hours Manufacturing Mechanic via the [facility] wet process operator . - Please contact study team before resolving/deleting from patients problem list. Study phone number: [phone]. Diagnosis changed due to Research Module. Go [...] Description 05/26/2023 2:00 PM EST Laboratory [facility] [place] [address] [facility] [phone] [facility] [address] [place] [address] 05/27/2023 4:00 PM EST [facility] Visit [facility], [facility] 132 [facility] [place] [address] Tatyana Delaney RN 132 [facility] [place] [address] 05/31/2023 1:30 PM EST Imaging Radiology [facility]st [facility] 132 [facility] [place] [address] 06/06/2023 2:40 PM EST Pharmacy Pharmacy, [place] [address] [facility] [address] [facility] [address] [facility] [address] 06/07/2023 1:20 PM EST Office Visit [facility] [address] [facility] [place] [phone] Vira Byrd DO [address] [place] [address] 07/27/2023 3:00 PM EDT Office Visit Cardiology, [facility] [address] [facility] [place] [address] Wood Wong PA-C 132 [facility] [address] 08/01/2023 2:00 PM EDT Laboratory Laboratory, [place] [address] [place] [address] [place] [address] [place] [address] 08/02/2023 2:00 PM EDT Office Visit Rheumatology [place] [address] [facility] [place] [address] Eliot Castelan CRNP [address] [facility] [place] [address] 08/08/2023 12:30 PM EDT Office Visit Hematology/Oncology [facility] [place] [address] [place] [address] Miguel A Alcantar MD [address] [place] [address] 08/18/2023 1:30 PM EDT Office Visit Nephrology, [facility] [address] [place] [address] Ana Lin PAGina [address] [place] [address] 10/11/2023 5:40 PM EDT Office Visit Located Within [facility] [address] [place] [address] David Umanzor MD [address] [place] [address] 03/07/2024 1:00 PM EST Office Visit Cardiology, [facility] [address] [place] [address] Manolo Millan MD [address] [place] [address] Scheduled Procedures Name Priority Associated [...] Additional history exists CKD PHOS USE SMARTSET 82495 12/02/2023 0806/2022, 08/06/2022, 08/21/2021, Additional history exists CKD HGB USE SMARTSET 35555 03/25/202403/25, 03/25/2023, 02/28/2023, Additional history exists TSH [...] this encounter Medical Devices Implanted Type Area Poultry Breeder Device Identifier Shelf Expiration Date Model / Serial / Lot Inhale Digital Medical Embosphere Micrspheres Implanted:Qty: 2 on 11/02/2019 by Ish Grove MD at [facility] Right: Abdomen [employer] 05/11/2022 S220GH / S220GH / [id number] Syr Pf 2ml Embospheres 100-300 - [id number] Implanted:Qty: 1 on 11/14/2020 at [facility] [employer] [id number] 08/22/2023 S220GH / / [id number] Envelope Antibacterial Tyrx - [id number] Implanted:Qty: 1 on 12/29/2021 by Fatoumata Roland DO at [facility] [employer] : CRM [id number] 09/23/2022 CMR M6122 / / [id number] Stent Synergy Xd Mr 3.05p16vj - [id number] Implanted:Qty: 1 on 03/22/2022 by Katalina Pearce MD at [facility] [employer] [id number] 07/17/2023 [id number] / / [id number] Valve Berhane 3 Ultra 26mm - [id number] Implanted:Qty: 1 on 12/09/2022 by Manolo Millan MD at [facility] [employer] [id number] 12/04/2023 [id number] / / documented as of this encounter [...] the patient have Health Care Power of Delivery Lead? No Care Teams Lining Marker Relationship Specialty Start Date End Date David Umanzor MD [address], [place] [phone] PCP - General 02/25/09 documented as of this encounter
--- OUTSIDE RECORDS SUMMARY | 2023-05-28 21:26 | External Medical Summary | Summary of Care ---
Author Name Unknown Organization [facility] Address [address] [place] [address] Phone [phone] Care Team Providers Care Mine Promotor Name Role Phone David Umanzor MD Primary Care Provider +1- [phone] Reason for Visit * Reason Onset Date Comments Other 05/16/2023 Encounter Details Date Type Department Care Team (Late st Contact Info) Description 05/16/2023 Telephone Pharmacy Call Center [address] [facility] [address] [facility] [address] [place] [address] Other Allergies Active Allergy Reactions Criticality Noted Date [...] causing neurological disease, not at goal ([facility]) Test blood sugar 4 times daily Dx: E11.9 1 Kit 0 9 Active PRODIGY LANCETS 28G MISCIndications:DM type 2, not at goal ([facility]) TEST BLOOD SUAGER 4 TIMES [...] A1c goal of less than 7.0% ([facility]),Type 2 diabetes mellitus with stage 3 chronic kidney disease, with long-term current use of insulin, unspecified whether stage 3a or 3b CKD ([facility]),DM type 2 causing neurological disease, not at goal ([facility]) TEST BLOOD SUGAR UP TO FOUR TIMES DAILY 400 Strip 3 2 Active Fluticasone Propionate 50 MCG/ACT Nasal Suspension (Flonase)Indications:Credit Office 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 Inject 4 units if BG is >200. 30 mL 5 3 Active Acetaminophen 500 MG Oral TabletIndications:HFrEF (heart failure with reduced ejection fraction) ([facility]),Coronary artery disease involving [place] coronary artery of [place] heart without angina pectoris,Nonrheumatic aortic valve stenosis,Cardiac [...] ANXIETY 40 Tablet 1 4 Active Nystatin 192229 UNIT/GM External Powder (Nyamyc) APPLY TO AFFECTED [...] HYDROcodone-Acetaminophen 5-325 MG Oral TabletIndications:Atheros clerosis of [place] artery of left lower extremity with intermittent [...] to excess calories 0 08/09/2022 Atherosclerosis of [place] ar jania of left lower extremity with intermittent claudication 08/09/2022 Coronary artery disease invo lving [place] coronary artery of [place] heart with angina pectoris 03/22/2022 Last Assessment [...] 12/21/2016 Overview: Diabetic retinopathy Rheumatoid arthritis of [facility] sites without rheumatoid factor [...] DELETE [facility] DETECT Study: Project # [id number], Crab Fisher: Manny Santacruz, PhD. SUMMARY: Goal: Establish test [...] contact study staff at ; after hours Crab Fisher via the [facility] prom burn off operator . Please contact study team before resolving/deleting from patients problem list. Study phone number: [phone]. Diagnosis changed due to Research Module. Go to Snapshot for study details. Encounter for examination fo r normal comparison and control in clinical research program 11/08/2018 12/10/2021 Overview: DO NOT DELETE - [facility] Study: Project # [id number], Crab Fisher: Kevin Pearce, MS, MPH. SUMMARY: Goal: Establish [...] contact study staff at ; after hours Crab Fisher via the [facility] prom burn off operator . - Please contact study team before resolving/deleting from patients problem list. Study phone number: [phone]. Diagnosis changed due to Research Module. Go [...] encounter Miscellaneous Notes * Telephone Encounter - Fabi Carrillo [facility] - 05/16/2023 12:26 PM EST Patient Phone Numbers Spoke to patient via phone. Patient would like to put papertape over her sensor to keep it down. Fabi Carrillo, Pharm D, [facility] Clinical Pharmacist 05/16/2023, 12:27 PM * Telephone Encounter - Janice Ruiz PHARM Tech - 05/16/2023 12:19 PM EST Caller's name: Orquidea Chamorro call back number(OFFICE NUMBER FOR ): [phone] Reason for call: Pt is asking if she can tape her sensor onto her skin due to it falling off of herand they had to put a new sensor on already, or will that interfere with her readings. Please advise and return her call. Thank you, Janice Ruiz [employer] [facility] Pharm[facility] Services 05/16/2023,12:19 PM documented in this encounter Plan of Treatment Upcoming Encounters Date Type Department Care Team (Late st Contact Info) Description 05/26/2023 2:00 PM EST Laboratory Laboratory, [place] [address] [place] [address] [facility] [address] [place] [address] 05/27/2023 4:00 PM EST [facility] Visit [facility] [place], [facility] [address] [address] Tatyana Delaney, RN [address] [place] [address] 05/31/2023 1:30 PM EST Imaging Radiology [facility] 1st [facility] [address] [facility] [place] [address] 06/06/2023 2:40 PM EST Pharmacy Pharmacy, [place] [address] [place] [facility] [place] [address] [facility] [address] [place] [address] 06/07/2023 1:20 PM EST Office Visit Sleep Disorders Ctr [facility] [address] [place] [address] Vira Byrd DO [address] [place] [address] 07/27/2023 3:00 PM EDT Office Visit Cardiology, [facility] [place] [address] Wood Wong PA-C [address] [place] [address] 08/01/2023 2:00 PM EDT Laboratory [facility], [place] [address] [facility] [phone] [facility] [address] [place] [address] 08/02/2023 2:00 PM EDT Office Visit Rheumatology [facility] [address] [facility] [place], [place] [address] Eliot Castelan CRNP [facility] [place] [address] 08/08/2023 12:30 PM EDT Office Visit Hematology/Oncology [facility] [address] [place] [address] Miguel A Alcantar MD [address] [facility] [place] [address] 08/18/2023 1:30 PM EDT Office Visit Nephrology, [facility] [address] [facility] [place] [address] Ana Lin PA-C [address] [facility] [place] [address] 10/11/2023 5:40 PM EDT Office Visit [facility] [address] [place] [phone] David Umanzor MD [address] [place] [address] 03/07/2024 1:00 PM EST Office Visit Cardiology, [facility] [address] [facility] [place] [phone] Manolo Millan MD [address], [place] [address] Scheduled Procedures Name Priority Associated Diagnoses Date/Ti [...] Additional history exists CKD PHOS USE SMARTSET 14327 12/02/202311/10, 08/06/2022, 08/21/2021, Additional history exists CKD HGB USE SMARTSET 41840 03/25/202403/25, 03/25/2023, 02/28/2023, Additional history exists TSH [...] this encounter Medical Devices Implanted Type Area Environmental Communications Specialist Device Identifier Shelf Expiration Date Model / Serial / Lot Merit Medical Embosphere Micrspheres Implanted:Qty: 2 on 11/02/2019 by Ish Grove MD at [facility] Right: Abdomen [employer] 05/11/2022 S220GH / [id number] / [id number] Syr Pf 2ml Embospheres 100-300 - [id number] Implanted:Qty: 1 on 11/14/2020 at [facility] [employer] [id number] 08/22/2023 S220GH / / [id number] Envelope Antibacterial Tyrx - [id number] Implanted:Qty: 1 on 12/29/2021 by Fatoumata Roland DO at [facility] [employer] : CRM [id number] 09/23/2022 CMR [id number] / / [id number] Stent Synergy Xd Mr 3.41z60hm - [id number] Implanted:Qty: 1 on 03/22/2022 by Katalina Pearce MD at [facility] [employer] [id number] 07/17/2023 [id number] / / [id number] Valve Berhane 3 Ultra 26mm - [id number] Implanted:Qty: 1 on 12/09/2022 by Manolo Millan MD at [facility] [employer] [id number] 12/04/2023 [id number] / / documented as of this encounter [...] the patient have Health Care Power of [place] Ripper? No Care Teams Mine Promotor Relationship Specialty Start Date End Date David Umanzor MD [address] [place] [address] PCP - General 02/25/09 documented as of this encounter
--- OUTSIDE RECORDS SUMMARY | 2023-05-28 21:26 | External Medical Summary | Summary of Care ---
Author Name Unknown Organization [facility] Address [address] [place] [place] [address] Phone [phone] Care Team Providers Care Cloud Security Architect Name Role Phone David Umanzor MD Primary Care Provider +1- [phone] Reason for Visit * Reason Onset Date Comments Information 05/17/2023 Encounter Details Date Type Department Care Team (Late st Contact Info) Description 05/17/2023 Telephone NephrologyRaphael [place] [address] [place] [address] TobiasLuz jacques MD [address] [place] [address] Information Allergies Active Allergy Reactions Criticality Noted [...] Active Fluticasone Propionate 50 MCG/ACT Nasal Suspension (Flonase)Indications: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 sanket rhinitis ADMINISTER 2 SPRAYS IN [...] daily 400 Each 3 3 Active Creon 53931-65286 UNIT Oral Capsule Delayed Release Particles (Pancrelipase (Afg-Rxdx-Smrq))Indicatio ns:Pancreatic insufficiency TAKE ONE CAPSULE BY MOUTH [...] [facility]),Coronary artery disease involving [place] coronary artery of [place] heart without angina pectoris,Nonrheumatic aortic valve stenosis,Cardiac [...] insulin ([facility]) Inject 30 units daily 45 mL [...] Active Gabapentin 300 MG Oral Capsule (Neurontin)Indications: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 [...] ANXIETY 40 Tablet 1 4 Active Nystatin 207993 UNIT/GM External Powder (Nyamyc) APPLY TO AFFECTED [...] HYDROcodone-Acetaminophen 5-325 MG Oral TabletIndications:Atheros clerosis of [place] artery of left lower extremity with intermittent [...] to excess calories 0 08/09/2022 Atherosclerosis of [place] ar jania of left lower extremity with intermittent claudication 08/09/2022 Coronary artery disease invo lving [place] coronary artery of [place] heart with angina pectoris 03/22/2022 Last Assessment [...] 12/21/2016 Overview: Diabetic retinopathy Rheumatoid arthritis of [facility] sites without rheumatoid factor [...] The Chronically Ill DETECT Study: Project # [id number], Bill Cutter: Manny Santacruz, PhD. SUMMARY: Goal: Establish test [...] contact study staff at ; after hours Bill Cutter via the [facility] stone processing machine operator . Please contact study team before resolving/deleting from patients problem list. Study phone number: [phone]. Diagnosis changed due to Research Module. Go to Snapshot for study details. Encounter for examination fo r normal comparison and control in clinical research program 11/08/2018 12/10/2021 Overview: DO NOT DELETE - [facility] Study: Project # [id number], Bill Cutter: Kevin Pearce, MS, MPH. SUMMARY: Goal: Establish [...] contact study staff at ; after hours Bill Cutter via the [facility] stone processing machine operator . - Please contact study team before resolving/deleting from patients problem list. Study phone number: [phone]. Diagnosis changed due to Research Module. Go [...] encounter Miscellaneous Notes * Telephone Encounter - Luz Tobias MD [...] Description 05/26/2023 2:00 PM EST Laboratory Laboratory, [place] [address] [place] [phone] [facility] [address] [place] [address] 05/27/2023 4:00 PM EST [facility] Visit [facility] [place], [facility] [address] [facility] [place] [address] Tatyana Delaney RN [address] [facility] [place] [address] 05/31/2023 1:30 PM EST Imaging Radiology [facility] 1st [facility] [address] [facility] [place] [address] 06/06/2023 2:40 PM EST Pharmacy Pharmacy, [place] [address] [place] [address] [facility] [address] [place] [address] 06/07/2023 1:20 PM EST Office Visit Sleep Disorders Ctr [facility] [address] [facility] [place] [phone] Vira Byrd DO [address] [place] [address] 07/27/2023 3:00 PM EDT Office Visit Cardiology, [facility] [address] [facility] [place] [address] Wood Wong PA-C [facility] [address] 08/01/2023 2:00 PM EDT Laboratory Laboratory, [place] [address] [place] [address] [facility] [address] [place] [address] 08/02/2023 2:00 PM EDT Office Visit Rheumatology [place] [address] [facility] [place] [address] Eliot Castelan CRNP [address] [facility] [place] [address] 08/08/2023 12:30 PM EDT Office Visit Hematology/Oncology [facility] [address] [facility] [place] [address] Miguel A Alcantar MD [address] [facility] [place] [address] 08/18/2023 1:30 PM EDT Office Visit Nephrology, [facility] [address] [facility] [place] [address] Ana Lin PA-C [address] [facility] [place] [address] 10/11/2023 5:40 PM EDT Office Visit Family Practice, [place] [address] [place] [address] David Umanzor MD [address] [place] [address] 03/07/2024 1:00 PM EST Office Visit Cardiology, [facility] 132 [facility] [place] [address] Manolo Millan MD [address] [place] [address] Scheduled Procedures Name Priority Associated Diagnoses Date/Ti [...] Additional history exists CKD PHOS USE SMARTSET 26366 12/02/202311/10, 08/06/2022, 08/21/2021, Additional history exists CKD HGB USE SMARTSET 00713 03/25/202403/25, 03/25/2023, 02/28/2023, Additional history exists TSH [...] this encounter Medical Devices Implanted Type Area Refresh Technician Device Identifier Shelf Expiration Date Model / Serial / Lot [employer] Medical Embosphere Micrspheres Implanted:Qty: 2 on 11/02/2019 by Ish Grove MD at [facility] Right: Abdomen Mobile [employer] 05/11/2022 S220GH / S220GH / [id number] Syr Pf 2ml Embospheres 100-300 - [id number] Implanted:Qty: 1 on 11/14/2020 at [facility] Mobile [employer] [id number] 08/22/2023 S220GH / / [id number] Envelope Antibacterial Tyrx - [id number] Implanted:Qty: 1 on 12/29/2021 by Fatoumata Roland DO at [facility] [employer] : CRM [id number] 09/23/2022 CMR M6122 / / [id number] Stent Synergy Xd Mr 3.50z55zx - [id number] Implanted:Qty: 1 on 03/22/2022 by Katalina Pearce MD at [facility] [employer] [id number] 07/17/2023 [id number] / / [id number] Valve Berhane 3 Ultra 26mm - [id number] Implanted:Qty: 1 on 12/09/2022 by Manolo Millan MD at [facility] [employer] [id number] 12/04/2023 [id number] / / documented as of this encounter [...] the patient have Health Care Power of Installment Loan Collector? No Care Teams Cloud Security Architect Relationship Specialty Start Date End Date David Umanzor MD [address] [place] [address] PCP - General 02/25/09 documented as of this encounter
--- OUTSIDE RECORDS SUMMARY | 2023-05-28 21:26 | External Medical Summary | Summary of Care ---
Author Name Unknown Organization [facility] Address [address] [place] [address] Phone [phone] Care Team Providers Care Reporting Lead Name Role Phone David Umanzor MD Primary Care Provider +1- [phone] Reason for Visit * Reason Onset Date Comments Information 05/17/2023 Encounter Details Date Type Department Care Team (Late st Contact Info) Description 05/17/2023 Telephone NephrologyRaphael [place] [address] [place] [address] TobiasLuz jacques MD [address] [place] [address] Information Allergies Active Allergy Reactions Criticality Noted [...] neurological disease, not at goal ([facility]) Test blood sugar 4 times daily Dx: E11.9 1 Kit 0 9 Active PRODIGY LANCETS 28G MISCIndications:DM type 2, not at goal ([facility]) TEST BLOOD SUAGER 4 TIMES A [...] goal of less than 7.0% ([facility]),Type 2 diabetes mellitus with stage 3 chronic kidney disease, with long-term current use of insulin, unspecified whether stage 3a or 3b CKD ([facility]),DM type 2 causing neurological disease, not at goal ([facility]) TEST BLOOD SUGAR UP TO FOUR TIMES DAILY 400 Strip 3 2 Active Fluticasone Propionate 50 MCG/ACT Nasal Suspension (Flonase)Indications:Chiropractor Assistant sanket rhinitis ADMINISTER 2 SPRAYS IN EACH [...] long-term current use of insulin ([facility]) Use to inject insulin 4 times daily 400 Each 3 3 Active Creon 26195-41135 UNIT Oral Capsule Delayed Release Particles (Pancrelipase (Cmy-Atnk-Ucku))Indicatio ns:Pancreatic insufficiency TAKE ONE CAPSULE BY MOUTH [...] long-term current use of insulin ([facility]) Inject 10 units with breakfast, 4 units with lunch, and 10 units with PM meal. Inject 4 units if BG is >200. 30 mL 5 3 Active Acetaminophen 500 MG Oral TabletIndications:HFrEF (heart failure with reduced ejection fraction) ([facility]),Coronary artery disease involving [place] coronary artery of [place] heart without angina pectoris,Nonrheumatic aortic valve stenosis,Cardiac [...] long-term current use of insulin ([facility]) Inject 30 units daily 45 mL [...] Active Gabapentin 300 MG Oral Capsule (Neurontin)Indications:Ac [place] on chronic combined systolic and diastolic congestive [...] ANXIETY 40 Tablet 1 4 Active Nystatin 229745 UNIT/GM External Powder (Nyamyc) APPLY TO AFFECTED [...] HYDROcodone-Acetaminophen 5-325 MG Oral TabletIndications:Atheros clerosis of [place] artery of left lower extremity with intermittent [...] to excess calories 0 08/09/2022 Atherosclerosis of [place] ar jania of left lower extremity with intermittent claudication 08/09/2022 Coronary artery disease invo lving [place] coronary artery of [place] heart with angina pectoris 03/22/2022 Last Assessment [...] Overview: Diabetic retinopathy Rheumatoid [facility] of [facility] sites without rheumatoid factor 01/26/2016 Last [...] [facility] [place] DETECT Study: Project # [id number], Sales Representative Church Furniture: Manny Santacruz, PhD. SUMMARY: Goal: Establish test [...] study staff at ; after hours Sales Representative [employer] via the [facility] steam frame operator . Please contact study team before resolving/deleting from patients problem list. Study phone number: [phone]. Diagnosis changed due to Research Module. Go to Snapshot for study details. Encounter for examination fo r normal comparison and control in clinical research program 11/08/2018 12/10/2021 Overview: DO NOT DELETE - [facility] Study: Project # [id number], Sales Representative [employer] Furn[employer]: Kevin Pearce, MS, MPH. SUMMARY: Goal: Establish [...] study staff at ; after hours Sales Representative [employer] via the [facility] steam frame operator . - Please contact study team before resolving/deleting from patients problem list. Study phone number: [phone]. Diagnosis changed due to Research Module. Go [...] PM EST Laboratory Laboratory, [place] [address] [place] [address] Twyla Quick [address] [place] [address] 05/27/2023 4:00 PM EST [facility] [place] [address] Tatyana Delaney, RN [facility] [place] [address] 05/31/2023 1:30 PM EST Imaging [facility] 132 [facility] [place] [address] 06/06/2023 2:40 PM EST Pharmacy Pharmacy, [place] [address] [place] [address] [facility] [address] [place] [address] 06/07/2023 1:20 PM EST Office Visit [facility] [phone] Vira Byrd DO 132 [facility] [place] [address] 07/27/2023 3:00 PM EDT Office Visit Cardiology, [facility] 132 [facility] [place] [address] Wood Wong PAGina 132 [facility] [address] 08/01/2023 2:00 PM EDT Laboratory Laboratory, [place] [address] [place] [address] [facility] [address] [place] [address] 08/02/2023 2:00 PM EDT Office Visit Rheumatology [address] [place], [place] [address] Eliot Castelan CRNP [address] [facility] [place] [address] 08/08/2023 12:30 PM EDT Office Visit Hematology/Oncology [facility] [address] [facility] [place] [address] Miguel A Alcantar MD [address] [facility] [place] [address] 08/18/2023 1:30 PM EDT Office Visit Nephrology, [facility] [address] [facility] [place] [address] Ana Lin PA-C [address] [facility] [place] [address] 10/11/2023 5:40 PM EDT [facility] [address] [place] [address] David Umanzor MD [address], [place] [address] 03/07/2024 1:00 PM EST Office Visit Cardiology, [facility] 132 [facility] [place] [address] Manolo Millan MD [address] [place] [address] Scheduled Procedures Name Priority Associated [...] Additional history exists CKD PHOS USE SMARTSET 30820 12/02/202311/10, 08/06/2022, 08/21/2021, Additional history exists CKD HGB USE SMARTSET 88716 03/25/202403/25, 03/25/2023, 02/28/2023, Additional history exists TSH [...] this encounter Medical Devices Implanted Type Area Tube Handler Device Identifier Shelf Expiration Date Model / Serial / Lot [employer] Medical Embosphere Micrspheres Implanted:Qty: 2 on 11/02/2019 by Ish Grove MD at [facility] Right: Abdomen [employer] 05/11/2022 S220GH / S220GH / [id number] Syr Pf 2ml Embospheres 100-300 - [id number] Implanted:Qty: 1 on 11/14/2020 at [facility] [employer] [id number] 08/22/2023 S220GH / / [id number] Envelope Antibacterial Tyrx - [id number] Implanted:Qty: 1 on 12/29/2021 by Fatoumata Roland DO at [facility] [employer] : CRM [id number] 09/23/2022 CMR M6122 / / [id number] Stent Synergy Xd Mr 3.67i64kn - [id number] Implanted:Qty: 1 on 03/22/2022 by Katalina Pearce MD at [facility] [employer] [id number] 07/17/2023 [id number] / / [id number] Valve Berhane 3 Ultra 26mm - [id number] Implanted:Qty: 1 on 12/09/2022 by Manolo Millan MD at [facility] [employer] [id number] 12/04/2023 [id number] / / documented as of this encounter [...] the patient have Health Care Power of Classifier Tender? No Care Teams Reporting Lead Relationship Specialty Start Date End Date David Umanzor MD [address] [place] [address] PCP - General 02/25/09 documented as of this encounter
--- OUTSIDE RECORDS SUMMARY | 2023-05-28 21:27 | External Medical Summary | Summary of Care ---
Author Name Unknown Organization [facility] Address [address] [place] [address] Phone [phone] Care Team Providers Care Mix House Tender Name Role Phone Millie Cage MD Primary Care Provider [phone] Reason for Visit * Reason Onset Date Comments Medication Refill 05/12/2023 Encounter Details Date Type Department Care Team (Late st Contact Info) Description 05/12/2023 Refill [facility] [address] [place] [address] Millie Cage MD [address] [place] [address] Atherosclerosis of buckland artery of left lower extremity with intermittent claudication (HCC); Pain of left lower extremity Allergies Active Allergy Reactions Criticality Noted Date Comments Bactrim 02/09/2010 Cephalosporins Anaphylaxis,Edema face/lips/tongue High 04/11/2009 Anaphylaxis to cefaclor, facial swelling to cephalexin. Ciprofloxacin Low 03/30/2021 Other reaction(s): Nausea Butorphanol Tartrate 02/09/2010 Heart racing Sulfa Antibiotics Hives High 05/22/2002 Other reaction(s): Hives Trimethoprim 04/15/2022 Other reaction(s): Hives documented as of this encounter (statuses as of 05/13/2023) Medications Medication Sig Dispensed Refills Start Date End Date Status TYLENOL ARTHRITIS PAIN 650 MG PO TBCRIndications:arthriti s Take by mouth as needed. 0 8 Active NEBULIZER/TUBING/MOUTHPI ALEXIS KITIndications:Wheezing, Acute bronchitis, complicated use with nebs 1 pack 5 0 Active MULTIVITAMIN/IRON PO TABS 1 daily 0 Active BIOTENE MOISTURIZING MOUTH MT SOLNIndications:Dry mouth use four times daily 1 Bottle 1 2 Active Blood Glucose Monitoring Suppl (PRODIGY AUTOCODE BLOOD GLUCOSE) w/Device KITIndications:DM type 2 causing neurological disease, not at goal ([facility]) Test blood sugar 4 times daily Dx: E11.9 1 Kit 0 9 Active PRODIGY LANCETS 28G MISCIndications:DM type 2, not at goal ([facility]) TEST BLOOD SUAGER 4 [...] A1c goal of less than 7.0% ([facility]),Type 2 diabetes mellitus with stage 3 chronic kidney disease, with long-term current use of insulin, unspecified whether stage 3a or 3b CKD ([facility]),DM type 2 causing neurological disease, not at goal ([facility]) TEST BLOOD SUGAR UP [...] 3 Active Folic Acid 1 MG Oral TabletIndications:Encoun [...] daily 400 Each 3 3 Active Creon 42950-04153 UNIT Oral Capsule Delayed Release Particles (Pancrelipase (Sav-Slkf-Uciz))Indicati ons:Pancreatic insufficiency TAKE ONE CAPSULE BY MOUTH [...] (heart failure with reduced ejection fraction) ([facility]),Coronary artery disease involving buckland coronary artery of buckland heart without angina pectoris,Nonrheumatic aortic valve stenosis,Cardiac pacemaker in situ,Tachy-wilfrido syndrome ([facility]) Take 1 Tablet by [...] without long-term current use of insulin ([facility]) Inject 30 units daily [...] 3 Active Gabapentin 300 MG Oral Capsule (Neurontin)Indications: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 90 Tablet 3 3 Active LORazepam 0.5 MG Oral Tablet (Ativan)Indications:Anxi ety state TAKE 1 TABLET 3 TIMES A DAY NEEDED FOR ANXIETY 40 Tablet 1 4 Active Nystatin 251286 UNIT/GM External Powder (Nyamyc) APPLY TO AFFECTED [...] days only.. 30 Tablet 0 4 Active levoFLOXacin 500 MG Oral Tablet (Levaquin)Indications:Ce llulitis of lower extremity, unspecified laterality Take 1 Tablet by mouth in the morning for 10 days. until gone.. 10 Tablet 0 4 05/14/19 24 Active HYDROcodone-Acetaminophe n 5-325 MG Oral TabletIndications:Athero sclerosis of buckland artery of left lower extremity with intermittent claudication (HCC),Pain of left lower extremity Take 1 Tablet by mouth every 6 hours as needed for Pain, Mild. 45 Tablet 0 4 Active HYDROcodone-Acetaminophe n 5-325 MG Oral TabletIndications:Athero sclerosis of buckland artery of left lower extremity with intermittent claudication (HCC),Pain of left lower extremity Take 1 Tablet by mouth every 6 hours as needed for Pain, Mild. 45 Tablet 0 4 05/12/19 24 Discontin ued(Refil l) documented as of this encounter (statuses as of 05/13/2023) Active Problems Problem Noted Date Diagnosed Date [...] to excess calories 0 08/09/2022 Atherosclerosis of buckland ar jania of left lower extremity with intermittent claudication 08/09/2022 Coronary artery disease invo lving buckland coronary artery of buckland heart with angina pectoris 03/22/2022 Last Assessment [...] Diabetic retinopathy Rheumatoid arthritis of [place] [facility] sites without rheumatoid factor 01/26/2016 Last [...] -- AHI 17.1, significant hypoxia and PLMS [facility] Vitamin D deficiency 04/21/2011 Iron deficiency anemia 03/15/2011 Overview: ICD-10 update of inactive term Last Assessment & Plan: Last hemoglobin 11.4 on 08/06 -continue ferrous sulfate. Med list updated. High triglycerides 02/13/2004 Overview: TG's as high as 6400 Postsurgical hypothyroidism 02/13/2004 Last Assessment & Plan: Last TSH 0.9 on 04/13/2022 -continue Synthroid documented as of this encounter (statuses as of 05/13/2023) Resolved Problems Problem Noted Date Diagnosed Date [...] 11/12/2019 Overview: DO NOT DELETE [facility] Study: Project # [id number], Embosser Apprentice: Manny Santacruz, PhD. SUMMARY: Goal: Establish test [...] contact study staff at ; after hours Embosser Apprentice via the [facility] hospital alum operator . Please contact study team before resolving/deleting from patients problem list. Study phone number: [phone]. Diagnosis changed due to Research Module. Go to Snapshot for study details. Encounter for examination fo r normal comparison and control in clinical research program 11/08/2018 12/10/2021 Overview: DO NOT DELETE - [facility] DETECT Study: Project # [id number], Embosser Apprentice: Kevin Pearce, MS, MPH. SUMMARY: Goal: Establish [...] contact study staff at ; after hours Embosser Apprentice via the [facility] hospital alum operator . - Please contact study team before resolving/deleting from patients problem list. Study phone number: [phone]. Diagnosis changed due to Research Module. Go [...] as of this encounter (statuses as of 05/13/2023) Immunizations Name Administration Dates Next Due COVID-19 mRNA, LNP-s, No Pre serve, 2-Dose Series (Moderna) 06/08/2021,12/17/2020,06/23/2020,11/2020 H1N1 2009 Influenza, IM 04/06/2009 MMR - Measles/Mumps/Rubella Vaccine 05/07/2019 PPD 09/09/2010,10/06/2009 Pneumococcal Conjugate Vacc, 13 Valent (Prevnar) 02/12/2015 Pneumococcal Polysaccharide PPV23 (Pneumovax) 05/07/2019,12/27/2013,10/24/2008 Seasonal Influenza Virus Vac cine, Unspecified Formulation 01/27/2021,12/25/2019,02/08/2019,01/10,01/11/2017,03/17/2016,02/13/20 15,12/27/2013,01/31/2013,12/22/2011,0 12/28/2010,01/08/2010,01/18/2008 Seasonal Influenza, PF, 6 M & above, IM , (FluLaval or Fluzone) 12/25/2019,02/08/2019,02/01/2018,1006/2016,04/10/2009,04/06/2009 02/09/2020 Seasonal Influenza, Quadriva lent Hd (Fluzone [...] Telephone Encounter - Millie Cage MD - 05/13/2023 4:30 PM ESTSigned Prescriptions: Disp Refills HYDROcodone-Acetaminophen 5-325 MG Oral Ta*45 Tab*0 Sig: Take 1 Tablet by mouth every 6 hours as needed for Pain, Mild.Authorizing Provider: MILLIE CAGE----- * Telephone Encounter - Erica Kaye CPhT - 05/13/2023 12:40 PM EST Pt calling to check status of refill, pending Thank you, Erica Kaye CPhT Retail Management Keyholder [facility] ([facility])(formerly telepharmacy) 05/13/2023,12:43 PM * Telephone Encounter - Rula Thomas [facility] - 05/13/2023 9:29 AM ESTPending Prescriptions: Disp Refills HYDROcodone-Acetaminophen 5-325 MG Oral Ta*45 Tab*0 Sig: Take 1 Tablet by mouth every 6 hours as needed for Pain, Mild. * Telephone Encounter - Rula Thomas RP - 05/13/2023 9:28 AM EST I have reviewed the patients controlled substance dispensing history in the Prescription Drug Monitoring Program in compliance with the [facility] regulations before prescribing a controlled substance. PDMP checked on 05/13/2023. Pending Prescriptions: Disp Refills HYDROcodone-Acetaminophen 5-325 MG Oral T*45 Tab*0 Sig: Take 1 Tablet by mouth every 6 hours as needed for Pain, Mild. Last Visit: 04/25/2023 (in office), 07/15/2020 (telemedicine) Next Visit: 10/11/2023 Date medication was last filled: 04/15 Date medication is due for refill: 04/25 [facility]acy: [id number] Is this request for a controlled substance? Yes and Urine Drug Screen Not completed Toxicology results: No results found. However, due to the size of the patient record, not all encounters were searched.Please check Results Review for a complete set of results. Please approve if appropriate. Thank you, Rula Thomas, PharmD Clinical Pharmacist [facility] ([facility]) 05/13/23 9:28 AM [phone] * Telephone Encounter - Oneal Gonzalez, robotics technologist - 05/12/2023 9:22 AM EST Did you pend patient's preferred pharmacy and medication before forwarding?yes Pharmacy: [id number] [address] Pending Prescriptions: Disp Refills HYDROcodone-Acetaminophen 5-325 MG Oral T*45 Tab*0 Sig: Take 1 Tablet by mouth every 6 hours as needed for Pain, Mild. Last Visit: 04/25/2023 (in office), 07/15/2020 (telemedicine) Next Visit: 10/11/2023 If no future appointments scheduled, and last appointment is greater than a year ago, please schedule patient for a follow-up appointment Last date the medication was ordered: 04/15/2023 Is this request for a controlled substance?Yes, What was the last refill date 04/15/2023 w/ quantity 45 tabs and dosage 5-325 mg and Urine Drug Screen Not completed Urine Drug Screen:No results found. However, due to the size of the patient record, not all encounters were searched. Please check Results Review for a complete set of results. Patient Phone Numbers Labs: Lab Results Component Value Date/Time CREAT 1.2 (H) 04/25/2023 02:17 PM CREAT 1.17 03/31/2022 12:00 AM CREAT 1.1 (H) 04/28/2020 11:03 AM POTASSIUM 4.7 04/25/2023 02:17 PM POTASSIUM 3.9 03/31/2022 12:00 AM POTASSIUM [...] Description 05/26/2023 2:00 PM EST [facility], [place] [address] [facility] [id number] [facility] [address] [place] [address] 05/27/2023 4:00 PM EST Home Visit ising at [facility] [address] [facility] [place] [address] Tatyana Delaney RN [address] [facility] [place] [address] 05/31/2023 1:30 PM EST Imaging Radiology [facility] [facility] [address] [facility] [place] [address] 06/06/2023 2:40 PM EST Pharmacy Pharmacy, [place] [address] [facility] [place] [address] [facility] [address] [facility] [place] [address] 06/07/2023 1:20 PM EST Office Visit Sleep Disorders Ctr [facility] [address] [facility] [place] [phone] Vira Byrd DO [address] [facility] [place] [address] 07/27/2023 3:00 PM EDT Office Visit Cardiology, [facility] [address] [place] [address] Wood Wong PA-C [address] [place] [address] 08/01/2023 2:00 PM EDT Laboratory Laboratory, [place] [address] [place] [phone] [facility] [address] [place] [address] 08/02/2023 2:00 PM EDT Office Visit Rheumatology [facility] [address] [facility] [address] Eliot Castelan CRNP [address] [facility] [place] [address] 08/08/2023 12:30 PM EDT Office Visit Hematology/Oncology [facility] [address] [facility] [place] [address] Miguel A Alcantar MD [address] [facility] [place] [address] 08/18/2023 1:30 PM EDT Office Visit Nephrology, [facility] [address] [facility] [place] [address] ZeAna sanchez PA-C [address] [facility] [place] [address] 10/11/2023 5:40 PM EDT Office Visit Family [facility] [address] [place] [address] Millie Cage MD [address] [place] [address] 03/07/2024 1:00 PM EST Office Visit Cardiology, [facility] [address] [facility] [place] [address] Manolo Millan MD [address] [place] [address] Scheduled Procedures Name Priority Associated [...] Additional history exists CKD PHOS USE SMARTSET 53226 12/02/202311/10, 08/06/2022, 08/21/2021, Additional history exists CKD HGB USE SMARTSET 11398 03/25/202403/25, 03/25/2023, 02/28/2023, Additional history exists TSH [...] this encounter Medical Devices Implanted Type Area Straw Boss Device Identifier Shelf Expiration Date Model / Serial / Lot [employer] Medical Embosphere Micrspheres Implanted:Qty: 2 on 11/02/2019 by Ish Grove MD at [facility] Right: Abdomen [employer] 05/11/2022 S220GH / [id number] / [id number] Syr Pf 2ml Embospheres 100-300 - [id number] Implanted:Qty: 1 on 11/14/2020 at [facility] [employer] [id number] 08/22/2023 S220GH / / [id number] Envelope Antibacterial Tyrx - [id number] Implanted:Qty: 1 on 12/29/2021 by Fatoumata Roland DO at [facility] [employer] : CRM [id number] 09/23/2022 CMR [id number] / / [id number] Stent Synergy Xd Mr 3.59s56ac - [id number] Implanted:Qty: 1 on 03/22/2022 by Katalina Pearce MD at [facility] [employer] [id number] 07/17/2023 [id number] / / [id number] Valve Berhane 3 Ultra 26mm - [id number] Implanted:Qty: 1 on 12/09/2022 by Manolo Millan MD at [facility] [employer] [id number] 12/04/2023 [id number] / / documented as of this encounter Visit Diagnoses Diagnosis Atherosclerosis of buckland artery of left lower extremity with intermittent claudication (HCC) Atherosclerosis of buckland arteries of the extremities with intermittent claudication Pain of left lower extremity documented in this encounter Advance Directives Latest [...] the patient have Health Care Power of Flat Clothier? No Care Teams Mix House Tender Relationship Specialty Start Date End Date Millie Cage MD [address] [place] [address] PCP - General 02/25/09 documented as of this encounter
--- OUTSIDE RECORDS SUMMARY | 2023-05-28 21:27 | External Medical Summary | Summary of Care ---
Author Name Unknown Organization [facility] Address [address] [place] [address] Phone [phone] Care Team Providers Care Data Programmer Name Role Phone David Umanzor MD Primary Care Provider [phone]- [phone] Reason for Visit * Reason Onset Date Comments Health Maintenance 05/12/2023 Encounter Details Date Type Department Care Team (Late st Contact Info) Description 05/12/2023 Telephone [facility] [address] [place] [address] David Umanzor MD [address] [place] [address] Health Maintenance Allergies Active Allergy Reactions Criticality Noted Date Comments Bactrim 02/09/2010 Cephalosporins Anaphylaxis,Edema face/lips/tongue High 04/11/2009 Anaphylaxis to cefaclor, facial swelling to cephalexin. Ciprofloxacin Low 03/30/2021 Other reaction(s): Nausea Butorphanol Tartrate 02/09/2010 Heart racing Sulfa Antibiotics Hives High 05/22/2002 Other reaction(s): Hives Trimethoprim 04/15/2022 Other reaction(s): Hives documented as of this encounter (statuses as of 05/12/2023) Medications Medication Sig Dispensed Refills Start Date [...] 1 2 Active Blood Glucose Monitoring Suppl ([employer]vamp[employer]lect Systems AUTOCODE BLOOD GLUCOSE) w/Device KITIndications:DM type 2 causing neurological disease, not at goal ([facility]) Test blood sugar 4 times daily Dx: E11.9 1 Kit 0 9 Active PRODIGY LANCETS 28G MISCIndications:DM type 2, not at goal ([facility]) TEST BLOOD SUAGER 4 TIMES [...] A1c goal of less than 7.0% ([facility]),Type 2 diabetes mellitus with stage 3 chronic kidney disease, with long-term current use of insulin, unspecified whether stage 3a or 3b CKD ([facility]),DM type 2 causing neurological disease, not at goal ([facility]) TEST BLOOD SUGAR UP TO FOUR TIMES DAILY 400 Strip 3 2 Active Fluticasone Propionate 50 MCG/ACT Nasal Suspension (Flonase)Indications:Clinical Trial Coordinator sanket rhinitis ADMINISTER 2 SPRAYS IN EACH [...] without long-term current use of insulin ([facility]) Use to inject insulin 4 times daily 400 Each 3 3 Active Creon 14751-11008 UNIT Oral Capsule Delayed Release Particles (Pancrelipase (Rym-Goun-Bwcn))Indicatio ns:Pancreatic insufficiency TAKE ONE CAPSULE BY MOUTH [...] without long-term current use of insulin ([facility]) Inject 10 units with breakfast, 4 units with lunch, and 10 units with PM meal. Inject 4 units if BG is >200. 30 mL 5 3 Active Acetaminophen 500 MG Oral TabletIndications:HFrEF (heart failure with reduced ejection fraction) (HCC),Coronary artery disease involving [place] coronary artery of [place] heart without angina pectoris,Nonrheumatic aortic valve stenosis,Cardiac pacemaker in situ,Tachy-wilfrido syndrome ([facility]) Take 1 Tablet by mouth [...] without long-term current use of insulin ([facility]) Inject 30 units daily 45 [...] combined systolic and diastolic congestive heart failure ([facility]) Take 1 Capsule by mouth [...] the morning. 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 45 Tablet 0 4 Active LORazepam 0.5 MG Oral Tablet (Ativan)Indications:Anxie ty state TAKE 1 TABLET 3 TIMES A DAY NEEDED FOR ANXIETY 40 Tablet 1 4 Active Nystatin 287453 UNIT/GM External Powder (Nyamyc) APPLY TO AFFECTED [...] 4 Active levoFLOXacin 500 MG Oral Tablet (Levaquin)Indications:Ene lulitis of lower extremity, unspecified laterality Take 1 Tablet by mouth in the morning for 10 days. until gone.. 10 Tablet 0 4 05/14/19 24 Active documented as of this encounter (statuses as of 05/12/2023) Active Problems Problem Noted Date Diagnosed Date [...] to excess calories 0 08/09/2022 Atherosclerosis of [place] ar jania of left lower extremity with intermittent claudication 08/09/2022 Coronary artery disease invo lving [place] coronary artery of [place] heart with angina pectoris 03/22/2022 Last Assessment [...] 12/21/2016 Overview: Diabetic retinopathy Rheumatoid arthritis of [facility] sites without rheumatoid factor 01/26/2016 Last Assessment [...] as of this encounter (statuses as of 05/12/2023) Resolved Problems Problem Noted Date Diagnosed Date [...] [facility] [place] DETECT Study: Project # [id number], Accuracy Expert: Manny Santacruz, PhD. SUMMARY: Goal: Establish test [...] contact study staff at ; after hours Accuracy Expert via the [facility] hospital derrick car operator . Please contact study team before resolving/deleting from patients problem list. Study phone number: [phone]. Diagnosis changed due to Research Module. Go to [employer] for study details. Encounter for examination fo r normal comparison and control in clinical research program 11/08/2018 12/10/2021 Overview: DO NOT DELETE - [facility] Study: Project # [id number], Accuracy Expert: Kevin Pearce, MS, MPH. SUMMARY: Goal: Establish [...] contact study staff at ; after hours Accuracy Expert via the [facility] derrick car operator . - Please contact study team before resolving/deleting from patients problem list. Study phone number: [phone]. Diagnosis changed due to Research Module. Go to [employer] for study details. Food insecurity 08/21/2018 03/24/2023 [...] as of this encounter (statuses as of 05/12/2023) Immunizations Name Administration Dates Next Due COVID-19 [...] encounter Miscellaneous Notes * Telephone Encounter - Deena Geiger LPN - 05/12/2023 9:39 AM EST Care Gaps Comprehensive Care Outreach Last Office/Telemedicine Visit: 04/25/2023 (in office), 07/15/2020 (telemedicine) Next Office Visit: 10/11/2023 Hemoglobin AIC Results: Lab Results Component Value Date/Time HEMOGLOBIN A1C - [facility] 7.7 (H) 04/25/2023 02:17 PM HEMOGLOBIN A1C - [facility] 7.4 (H) 08/06/2022 03:20 PM HEMOGLOBIN A1C - [facility] 7.1 (H) 04/13/2022 02:54 PM HEMOGLOBIN A1C - [facility] 6.9 (H) 04/28/2020 11:03 AM HEMOGLOBIN A1C - [facility] 6.7 (H) 12/25/2019 03:15 PM HEMOGLOBIN A1C - [facility] 7.2 (H) 05/07/2019 03:34 PM BP Readings from Last 1 Encounters: 05/04/23 96/60 Reviewed Health Maintenance below: Health Maintenance Topic Date Due Hepatitis B (1 of 3 - Risk 3-dose series) Never done COLONOSCOPY-EVERY 3 YRS AGES 18-100 01/11/2022 Diabetic Foot Exam 06/25/2022 Depression Screening 06/25/2022 COVID-19 Vaccine ( season) 2022 Diabetic Eye Exam 05/27/2023 Mammogram 07/28/2023 Albumin/Creatinine Ratio 09/08/2023 HbA1c 10/24/2023 GFR 10/24/2023 Appt today Care Gap Outreach Action Taken: Outreach not indicated documented in this encounter Plan of Treatment Upcoming Encounters Date Type Department Care Team (Late st Contact Info) Description 05/12/2023 2:00 PM EST Office Visit Nephrology, [facility] [address] [facility] [place], [place] [address] Luz Tobias MD [address] [facility] [place] [address] 05/26/2023 2:00 PM EST Laboratory Laboratory, [place] [address] [place] [phone] [facility] [address] [place] [address] 05/27/2023 4:00 PM EST [facility] Visit [facility] [address] [facility] [place] [address] Tatyana Delaney RN [address] [place] [address] 05/31/2023 1:30 PM EST Imaging Radiology [facility] 1st [facility] [address] [facility] [place] [address] 06/06/2023 2:40 PM EST Pharmacy Pharmacy, [place] [address] [place] [address] [facility] [address] [place] [address] 06/07/2023 1:20 PM EST Office Visit Sleep Disorders Ctr [facility] [address] [facility] [place] [phone] Vira Byrd DO [address] [place] [address] 07/27/2023 3:00 PM EDT Office Visit Cardiology, [facility] [address] [place] [address] Wood Wong PAMirandaC [address] [place] [address] 08/01/2023 2:00 PM EDT Laboratory Laboratory, [place] [address] [place] [phone] [facility] [address] [place] [address] 08/02/2023 2:00 PM EDT Office Visit Rheumatology [facility] [address] [employer] [employer] [place] [address] Eliot Castelan CRNP [address] [place] [address] 08/08/2023 12:30 PM EDT Office Visit Hematology/Oncology [facility] [address] [facility] [place] [address] Miguel A Alcantar MD [address] [facility] [place] [address] 10/11/2023 5:40 PM EDT Office Visit Family [facility], [place] [address] [place] [phone] David Umanzor MD [address] [place] [address] 03/07/2024 1:00 PM EST Office Visit Cardiology, [facility] [address] [facility] [place] [address] Manolo Millan MD [address] [place] [address] Scheduled Procedures Name Priority Associated [...] 09/08/2023 023, 08/06/2022, 05/13/2021, Additional history exists GFR 10/24/2023 04/25/2023, 01/0 07/2023, 03/24/2023, Additional history exists HbA1c 10/24/2023 04/25/2023, 07/11, 04/13/2022, Additional history exists CKD PHOS USE SMARTSET 22859 12/02/202311/10, 08/06/2022, 08/21/2021, Additional history exists CKD HGB USE SMARTSET 06934 03/25/202403/25, 03/25/2023, 02/28/2023, Additional history exists TSH [...] encounter Medical Devices Implanted Type Area Wire Chief Device Identifier Shelf Expiration Date Model / Serial / Lot [employer] Medical Embosphere Micrspheres Implanted:Qty: 2 on 11/02/2019 by Ish Grove MD at [facility] Right: Abdomen [employer] 05/11/2022 S220GH / S220GH / [id number] Syr Pf 2ml Embospheres 100-300 - [id number] Implanted:Qty: 1 on 11/14/2020 at [facility] [employer]ICAL [employer] [id number] 08/22/2023 S220GH / / [id number] Envelope Antibacterial Tyrx - [id number] Implanted:Qty: 1 on 12/29/2021 by Fatoumata Roland DO at OR [facility] [employer] : CRM [id number] 09/23/2022 CMR [id number] / / [id number] Stent Synergy Xd Mr 3.26x85pu - [id number] Implanted:Qty: 1 on 03/22/2022 by Katalina Pearce MD at [facility] [employer] [id number] 07/17/2023 [id number] / / [id number] Valve Berhane 3 Ultra 26mm - [id number] Implanted:Qty: 1 on 12/09/2022 by Manolo Millan MD at [facility] [employer] [id number] 12/04/2023 [id number] / / documented as of this encounter [...] the patient have Health Care Power of Chips Screen Tender? No Care Teams Data Programmer Relationship Specialty Start Date End Date David Umanzor MD [address] [place] [address] PCP - General 02/25/09 documented as of this encounter
--- OUTSIDE RECORDS SUMMARY | 2023-05-28 21:27 | External Medical Summary ---
Author Name Unknown Address Unknown Organization K09:[facility] [place] [address] Laboratory Report Ordering Provider Test Date Status KHALIF LINDSEY 05/12/2023 15:08:54 Final Observation Date Value Abnormality Reference (Units ) Status BUN 05/12/2023 15:08:54 59 Above high normal 6-20 (mg/dL) Final Creatinine 05/12/2023 15:08:54 1.9 Above high normal 0.5-1.0 (mg/dL) Final Glomerular filtration rate/1.73 sq M.predicted [Volume Rate/Area] in Serum, Plasma or Blood by Creatinine-based formula (CKD-EPI) 05/12/2023 15:08:54 27 Below low normal >=60 (mL/min) Final eGFR is calculated based on the CKD-EPI 2020 equation SODIUM 05/12/2023 15:08:54 138 135-146 (m mol/L) Final Potassium 05/12/2023 15:08:54 3.6 3.5-5.1 (m mol/L) Final Cl 05/12/2023 15:08:54 90 Below low normal 98- 107 (mmol/L) Final CO2 05/12/2023 15:08:54 37 Above high normal 22 -32 (mmol/L) Final Anion gap 05/12/2023 15:08:54 11 7-15 (mmol /L) Final Glucose 05/12/2023 15:08:54 103 70-120 (mg /dL) Final Calcium 05/12/2023 15:08:54 10.0 8.4-10.2 ( mg/dL) Final Performing Location [facility] [place] [address]
--- OUTSIDE RECORDS SUMMARY | 2023-05-28 21:27 | External Medical Summary | Summary of Care ---
Author Name Unknown Organization [facility] Address [address] [facility] [address] Phone [phone] Care Team Providers Care Digital Marketing Consultant Name Role Phone David Umanzor MD Primary Care Provider +1- [phone] Reason for Visit * Reason Comments Outpatient Testing Encounter Details Date Type Department Care Team (Late st Contact Info) Description 05/12/2023 3:10 PM EST Laboratory Laboratory [facility] [address] [place] [phone] [facility] [address] [place] [address] Arrived Allergies Active Allergy Reactions Criticality Noted Date [...] causing neurological disease, not at goal ([facility]) Test blood sugar 4 times daily Dx: E11.9 1 Kit 0 9 Active PRODIGY LANCETS 28G MISCIndications:DM type 2, not at goal ([facility]) TEST BLOOD SUAGER 4 TIMES A DAY [...] A1c goal of less than 7.0% ([facility]),Type 2 diabetes mellitus with stage 3 chronic kidney disease, with long-term current use of insulin, unspecified whether stage 3a or 3b CKD ([facility]),DM type 2 causing neurological disease, not at goal ([facility]) TEST BLOOD SUGAR UP TO FOUR TIMES DAILY 400 Strip 3 2 Active Fluticasone Propionate 50 MCG/ACT Nasal Suspension (Flonase)Indications:Medical Billing And Coding Instructor sanket rhinitis ADMINISTER 2 SPRAYS IN EACH [...] without long-term current use of insulin ([facility]) Use to inject insulin 4 times daily 400 Each 3 3 Active Creon 40910-83909 UNIT Oral Capsule Delayed Release Particles (Pancrelipase (Wcr-Ciug-Idvu))Indicatio ns:Pancreatic insufficiency TAKE ONE CAPSULE BY MOUTH [...] without long-term current use of insulin ([facility]) Inject 10 units with breakfast, 4 units with lunch, and 10 units with PM meal. Inject 4 units if BG is >200. 30 mL 5 3 Active Acetaminophen 500 MG Oral TabletIndications:HFrEF (heart failure with reduced ejection fraction) ([facility]),Coronary artery disease involving [place] coronary artery of [place] heart without angina pectoris,Nonrheumatic aortic valve stenosis,Cardiac [...] without long-term current use of insulin ([facility]) Inject 30 units daily 45 mL 1 [...] Active Gabapentin 300 MG Oral Capsule (Neurontin)Indications:Ac sitka on chronic combined systolic and diastolic congestive [...] HYDROcodone-Acetaminophen 5-325 MG Oral TabletIndications: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 45 Tablet 0 4 Active LORazepam 0.5 MG Oral Tablet (Ativan)Indications:Anxie ty state TAKE 1 TABLET 3 TIMES A DAY NEEDED FOR ANXIETY 40 Tablet 1 4 Active Nystatin 783230 UNIT/GM External Powder (Nyamyc) APPLY TO AFFECTED [...] to excess calories 0 08/09/2022 Atherosclerosis of [place] ar jania of left lower extremity with intermittent claudication 08/09/2022 Coronary artery disease invo lving [place] coronary artery of [place] heart with angina pectoris 03/22/2022 Last Assessment [...] program 11/08/2018 11/12/2019 Overview: DO NOT DELETE [facility] DETECT Study: Project # [id number], Machine Attendant: Manny Santacruz, PhD. SUMMARY: Goal: Establish test [...] contact study staff at ; after hours Machine Attendant via the [facility] hospital time cycle operator . Please contact study team before resolving/deleting from patients problem list. Study phone number: [phone]. Diagnosis changed due to Research Module. Go to Snapshot for study details. Encounter for examination fo r normal comparison and control in clinical research program 11/08/2018 12/10/2021 Overview: DO NOT DELETE - [facility] Study: Project # [id number], Machine Attendant: Kevin Pearce, MS, MPH. SUMMARY: Goal: Establish [...] contact study staff at ; after hours Machine Attendant via the [facility] time cycle operator . - Please contact study team before resolving/deleting from patients problem list. Study phone number: [phone]. Diagnosis changed due to Research Module. Go [...] Description 05/26/2023 2:00 PM EST Laboratory Laboratory, [place] [address] [place] [facility] [place] [address] [facility] [address] [place] [address] 05/27/2023 4:00 PM EST Home Visit [facility] [address] [place] [address] Tatyana Delaney RN [address] [facility] [place] [address] 05/31/2023 1:30 PM EST Imaging Radiology [facility] [address] [facility] [place] [address] 06/06/2023 2:40 PM EST Pharmacy Pharmacy, [place] [address] [facility] [address] [facility] [address] [place] [address] 06/07/2023 1:20 PM EST Office Visit [facility] [address] [facility] [place] [phone] Vira Byrd DO [address] [place] [address] 07/27/2023 3:00 PM EDT Office Visit Cardiology, [facility] [address] [place] [address] Wood Wong [facility]C [address] [facility] [address] 08/01/2023 2:00 PM EDT Laboratory Laboratory, [place] [address] [place] [phone] [facility] [address] [place] [address] 08/02/2023 2:00 PM EDT Office Visit Rheumatology [facility] [address] [place] [address] Eliot Castelan CRNP [address] [facility] [place] [address] 08/08/2023 12:30 PM EDT Office Visit Hematology/Oncology [facility] [address] [facility] [place] [address] Miguel A Alcantar MD [address] [facility] [place] [address] 08/18/2023 1:30 PM EDT Office Visit Nephrology, [facility] [address] [facility] [place] [address] Ana Lin PA-C [address] [facility] [place] [address] 10/11/2023 5:40 PM EDT Office Visit Family Practice, [place] [address] [place] [address] David Umanzor MD [address] [place] [address] 03/07/2024 1:00 PM EST Office Visit Cardiology, [facility] 132 [facility] [place] [address] Manolo Millan MD [address] [place] [address] Scheduled Procedures Name Priority Associated Diagnoses Date/Ti [...] 05/13/2021, Additional history exists GFR 10/24/2023 04/25/2023, 010 07/2023, 03/24/2023, Additional history exists HbA1c 10/24/2023 04/25/2023, 07/11, 04/13/2022, Additional history exists CKD PHOS USE SMARTSET 09948 12/02/202311/10, 08/06/2022, 08/21/2021, Additional history exists CKD HGB USE SMARTSET 83973 03/25/202403/25, 03/25/2023, 02/28/2023, Additional history exists TSH [...] this encounter Medical Devices Implanted Type Area Diamond Sander Device Identifier Shelf Expiration Date Model / Serial / Lot [employer] Medical Embosphere Micrspheres Implanted:Qty: 2 on 11/02/2019 by Ish Grove MD at [facility] Right: Abdomen [employer] 05/11/2022 S220GH / S220GH / [id number] Syr Pf 2ml Embospheres 100-300 - [id number] Implanted:Qty: 1 on 11/14/2020 at [facility] [employer] [id number] 08/22/2023 S220GH / / [id number] Envelope Antibacterial Tyrx - [id number] Implanted:Qty: 1 on 12/29/2021 by Fatoumata Roland DO at OR [facility] [employer] : CRM [id number] 09/23/2022 CMR M6122 / / [id number] Stent Synergy Xd Mr 3.06s02bs - [id number] Implanted:Qty: 1 on 03/22/2022 by Katalina Pearce MD at [facility] [employer] [id number] 07/17/2023 [id number] / / [id number] Valve Berhane 3 Ultra 26mm - [id number] Implanted:Qty: 1 on 12/09/2022 by Manolo Millan MD at [facility] [employer] [id number] 12/04/2023 [id number] / / documented as of this encounter [...] the patient have Health Care Power of Dealmaker? No Care Teams Digital Marketing Consultant Relationship Specialty Start Date End Date David Umanzor MD [address] [place] [address] PCP - General 02/25/09 documented as of this encounter
--- OUTSIDE RECORDS SUMMARY | 2023-05-28 21:27 | External Medical Summary | Summary of Care ---
Author Name Unknown Organization [facility] Address [address] [place] [address] Phone [phone] Care Team Providers Care Product Craftsman Name Role Phone David Umanzor MD Primary Care Provider [phone]- [phone] Encounter Details Date Type Department Care Team (Late st Contact Info) Description 05/12/2023 Population Health External Data Unspecified Department Allergies Active Allergy Reactions Criticality Noted Date [...] 1 2 Active Blood Glucose Monitoring Suppl (ZetticsIGY AUTOCODE BLOOD GLUCOSE) w/Device KITIndications:DM type 2 causing neurological disease, not at goal ([facility]) Test blood sugar 4 times daily Dx: E11.9 1 Kit 0 9 Active PRODIGY LANCETS 28G MISCIndications:DM type 2, not at goal ([facility]) TEST BLOOD SUAGER 4 TIMES [...] hemoglobin A1c goal of less than 7.0% ([facility]),Type 2 diabetes mellitus with stage 3 chronic kidney disease, with long-term current use of insulin, unspecified whether stage 3a or 3b CKD ([facility]),DM type 2 causing neurological disease, not at goal ([facility]) TEST BLOOD SUGAR UP TO FOUR TIMES DAILY 400 Strip 3 2 Active Fluticasone Propionate 50 MCG/ACT Nasal Suspension (Flonase)Indications:Kiln Setter sanket rhinitis ADMINISTER 2 SPRAYS IN EACH [...] coma, without long-term current use of insulin ([facility]) Use to inject insulin 4 times daily 400 Each 3 3 Active Creon 93080-62947 UNIT Oral Capsule Delayed Release Particles (Pancrelipase (Nge-Jjdf-Sltm))Indicatio ns:Pancreatic insufficiency TAKE ONE CAPSULE BY MOUTH [...] coma, without long-term current use of insulin ([facility]) Inject 10 units with breakfast, 4 units with lunch, and 10 units with PM meal. Inject 4 units if BG is >200. 30 mL 5 3 Active Acetaminophen 500 MG Oral TabletIndications:HFrEF (heart failure with reduced ejection fraction) ([facility]),Coronary artery disease involving [place] coronary artery of [place] heart without angina pectoris,Nonrheumatic aortic valve stenosis,Cardiac pacemaker in situ,Tachy-wilfrido syndrome ([facility]) Take 1 Tablet by mouth at [...] coma, without long-term current use of insulin ([facility]) Inject 30 units daily 45 [...] Active Gabapentin 300 MG Oral Capsule (Neurontin)Indications:Ac otoe-[place]ou[place] on chronic combined systolic and diastolic congestive [...] HYDROcodone-Acetaminophen 5-325 MG Oral TabletIndications:Atheros clerosis of [place] artery of left lower extremity with intermittent claudication (HCC),Pain of left lower extremity Take 1 Tablet by mouth every 6 hours as needed for Pain, Mild. 45 Tablet 0 4 Active LORazepam 0.5 MG Oral Tablet (Ativan)Indications:Anxie ty state TAKE 1 TABLET 3 TIMES A DAY NEEDED FOR ANXIETY 40 Tablet 1 4 Active Nystatin 108714 UNIT/GM External Powder (Nyamyc) APPLY TO AFFECTED [...] to excess calories 0 08/09/2022 Atherosclerosis of [place] ar jania of left lower extremity with intermittent claudication 08/09/2022 Coronary artery disease invo lving [place] coronary artery of [place] heart with angina pectoris 03/22/2022 Last Assessment [...] Diabetic retinopathy Rheumatoid arthritis of [facility] sites without rheumatoid factor 01/26/2016 Last Assessment & Plan: Follows closely with Rheumatology -continue methotrexate and prednisone Generalized OA 01/12/2016 Diabetes mellitus, type II, insulin dependent Encounter for long-term (current) use of medicat ions 09/26/2014 Type 2 diabetes mellitus 12/08/2012 Overview: ICD-10 update of inactive term Sleep apnea 03/31/2012 Overview: 06/19/12 -- DC oxygen as CPAP corrects hypoxia 12/21/12 -- CPAP 12 cwp with 2 LPM, [...] [facility] DETECT Study: Project # [id number], Manager Athletics: Manny Santacruz, PhD. SUMMARY: Goal: Establish test [...] study staff at ; after hours Manager Athletics via the [facility] senior reactor operator . Please contact study team before resolving/deleting from patients problem list. Study phone number: [phone]. Diagnosis changed due to Research Module. Go to Snapshot for study details. Encounter for examination fo r normal comparison and control in clinical research program 11/08/2018 12/10/2021 Overview: DO NOT DELETE - [facility] Study: Project # [id number], Manager Athletics: Kevin Pearce, MS, MPH. SUMMARY: Goal: Establish [...] study staff at ; after hours Manager Athletics via the [facility] senior reactor operator . - Please contact study team before resolving/deleting from patients problem list. Study phone number: [phone]. Diagnosis changed due to Research Module. Go [...] / RA -- low 89%, mean 95%, TUCEKR 0 Cardiomyopathy 12/07/2011 05/08/2012 Kidney disease, chronic, [...] 05/12/2023 2:00 PM EST Office Visit Nephrology, [facility] [address] [place], [place] [address] Luz Tobias MD [address] [place] [address] 05/26/2023 2:00 PM EST Laboratory Laboratory, [place] [address] [place] [phone] [facility] [address] [place] [address] 05/27/2023 4:00 PM EST [facility], [facility] [address] [place] [address] Tatyana Delaney RN [address] [facility] [place] [address] 05/31/2023 1:30 PM EST Imaging Radiology [facility] [address] [place] [address] 06/06/2023 2:40 PM EST Pharmacy Pharmacy, [place] [address] [place] [address] [facility] [address] [place] [address] 06/07/2023 1:20 PM EST Office Visit Sleep Disorders Ctr [facility] [address] [facility] [place] [phone] Vira Byrd DO [address] [place] [address] 07/27/2023 3:00 PM EDT Office Visit Cardiology, [facility] [place] [address] Wood Wong PA-C [address] [place] [address] 08/01/2023 2:00 PM EDT Laboratory Laboratory, [place] [address] [place] [phone] [facility] [address] [place] [address] 08/02/2023 2:00 PM EDT Office Visit Rheumatology [place] [id number] [facility] [place] [address] Eliot Castelan CRNP [address] [facility] [place] [address] 08/08/2023 12:30 PM EDT Office Visit Hematology/Oncology [facility] [address] [facility] [place] [address] Miguel A Alcantar MD [address] [facility] [place] [address] 10/11/2023 5:40 PM EDT Office Visit Family [facility] [place] [address] [place] [phone] David Umanzor MD [address] [place] [address] 03/07/2024 1:00 PM EST Office Visit Cardiology, [facility] 132 [place] [address] Manolo Millan MD [address] [facility] [address] Scheduled Procedures Name Priority Associated Diagnoses [...] Additional history exists CKD PHOS USE SMARTSET 09009 12/02/202311/10, 08/06/2022, 08/21/2021, Additional history exists CKD HGB USE SMARTSET 63929 03/25/202403/25, 03/25/2023, 02/28/2023, Additional history exists TSH [...] this encounter Medical Devices Implanted Type Area Software Technical Lead Device Identifier Shelf Expiration Date Model / Serial / Lot [facility] Medical Embosphere Micrspheres Implanted:Qty: 2 on 11/02/2019 by Ish Grove MD at [facility] Right: Abdomen [employer] 05/11/2022 S220GH / [id number] / [id number] Syr Pf 2ml Embospheres 100-300 - [id number] Implanted:Qty: 1 on 11/14/2020 at [facility] [employer] [id number] 08/22/2023 S220GH / / [id number] Envelope Antibacterial Tyrx - [id number] Implanted:Qty: 1 on 12/29/2021 by Fatoumata Roland DO at [facility] [employer] : CRM [id number] 09/23/2022 CMR [id number] / / [id number] Stent Synergy Xd Mr 3.88n99uh - [id number] Implanted:Qty: 1 on 03/22/2022 by Katalina Pearce MD at [facility] [employer] [id number] 07/17/2023 [id number] / / [id number] Valve Berhane 3 Ultra 26mm - [id number] Implanted:Qty: 1 on 12/09/2022 by Manolo Millan MD at [facility] [employer] [id number] 12/04/2023 [id number] / / documented as of this encounter [...] the patient have Health Care Power of Automatic Drill Operator? No Care Teams Product Craftsman Relationship Specialty Start Date End Date David Umanzor MD [address] [place] [address] PCP - General 02/25/09 documented as of this encounter
--- OUTSIDE RECORDS SUMMARY | 2023-05-28 21:27 | External Medical Summary ---
Author Name Unknown Address Unknown Organization K09:[facility] [place] [address] Laboratory Report Ordering Provider Test Date Status KHALIF LINDSEY 05/12/2023 15:08:54 Final Observation Date Value Abnormality Reference (Units ) Status Magnesium 05/12/2023 15:08:54 2.1 1.5-2.6 (m g/dL) Final Performing Location [facility] [place] [address]
--- OUTSIDE RECORDS SUMMARY | 2023-05-28 21:27 | External Medical Summary | Summary of Care ---
Author Name Unknown Organization [facility] Address [address] [place] [address] Phone [phone] Care Team Providers Care Hse Advisor Name Role Phone Millie Cage MD Primary Care Provider +1- [phone] Reason for Visit * Reason Onset Date Comments Medication Refill 03/30/2023 Encounter Details Date Type Department Care Team (Late st Contact Info) Description 03/30/2023 Refill [facility], [facility] [address] [place] [address] Tatyana Delaney, RN [address] [place] [address] Atherosclerosis of [place] artery of left lower extremity with intermittent [...] 03/21/20 12 Active Blood Glucose Monitoring Suppl (Think SkyIGPatterns AUTOCODE BLOOD GLUCOSE) w/Device KITIndications:DM type 2 [...] NOSTRIL EACH MORNING 48 g 1 03/15/20 Active tiZANidine HCl 2 MG Oral Tablet [...] in the morning. 90 Tablet 3 06/03/19 Active BD Pen Needle Corinna U/F 32G X 4 MM (Insulin Pen Needle)Indications:Type 2 diabetes mellitus with hyperosmolarity without coma, without long-term current use of insulin (HCC) Use to inject insulin 4 times daily 400 Each 3 08/07/19 23 Active Creon 23820-50844 UNIT Oral Capsule Delayed Release Particles (Pancrelipase (Vgl-Cxse-Mwte))Indicat ions:Pancreatic insufficiency TAKE ONE CAPSULE BY MOUTH [...] [facility]),Coronary artery disease involving [place] coronary artery of [place] heart without angina pectoris,Nonrheumatic aortic valve stenosis,Cardiac pacemaker in situ,Tachy-wilfrido syndrome ([facility]) Take 1 Tablet by mouth at [...] combined systolic and diastolic congestive heart failure ([facility]) Take 1 Capsule by mouth in the [...] by mouth daily 135 Tablet 3 02/18/20 Active Vitamin C 500 MG Oral Tablet (Ascorbic Acid) Take 1 Tablet by mouth in the morning. 90 Tablet 3 02/18/20 23 Active Erythromycin 5 MG/GM Ophthalmic OintmentIndications:Exp osure [...] morning. 90 Tablet 3 03/30/20 23 Active B-12 1500 MCG PO TBCRIndications:Pernici ous anemia one pill each day 90 Tab 3 03/09/20 10 024 Discontinued Nystatin 693236 UNIT/GM External Powder (Nystop) APPLY TO AFFECTED AREAS UNDER THE BREASTS THREE TIMES PER DAY NEEDED 30 g 1 09/14/19 23 024 Discontinued LORazepam 0.5 MG Oral Tablet (Ativan)Indications:Anx iety state TAKE 1 TABLET 3 TIMES A DAY NEEDED FOR ANXIETY 40 Tablet 1 02/24/20 23 024 Discontinued(R efill) HYDROcodone-Acetaminoph en 5-325 MG Oral TabletIndications:Ather osclerosis of [place] artery of left lower extremity with intermittent claudication (HCC),Pain of left lower extremity Take 1 Tablet by mouth every 6 hours as needed for Pain, Mild. 30 Tablet 0 03/11/20 23 023 Discontinued(R efill) HYDROcodone-Acetaminoph en 5-325 MG Oral TabletIndications:Ather osclerosis of [place] artery of left lower extremity with intermittent claudication (HCC),Pain of left lower extremity Take 1 Tablet by mouth every 6 hours as needed for Pain, Mild. 45 Tablet 0 03/30/20 23 024 Discontinued(R efill) documented as of this [...] to excess calories 0 08/09/2022 Atherosclerosis of [place] ar jania of left lower extremity with intermittent claudication 08/09/2022 Coronary artery disease invo lving [place] coronary artery of [place] heart with angina pectoris 03/22/2022 Last Assessment [...] 12/21/2016 Overview: Diabetic retinopathy Rheumatoid arthritis of [facility] sites without rheumatoid factor 01/26/2016 Last Assessment [...] program 11/08/2018 11/12/2019 Overview: DO NOT DELETE [employer] DETECT Study: Project # [id number], Safety Engineer: Manny Santacruz, PhD. SUMMARY: Goal: Establish [...] contact study staff at ; after hours Safety Engineer via the [facility] quencher operator . Please contact study team before resolving/deleting from patients problem list. Study phone number: [phone]. Diagnosis changed due to Research Module. Go to Snapshot for study details. Encounter for examination fo r normal comparison and control in clinical research program 11/08/2018 12/10/2021 Overview: DO NOT DELETE - [employer] DETECT Study: Project # [id number], Safety Engineer: Kevin Pearce, MS, MPH. SUMMARY: Goal: [...] contact study staff at ; after hours Safety Engineer via the [facility] quencher operator . - Please contact study team before resolving/deleting from patients problem list. Study phone number: [phone]. Diagnosis changed due to Research Module. Go [...] Seasonal Influenza Virus Vac cine, Unspecified Formulation 01/27/2021,12/25/2019,02/08/2019,1007/2017,01/11/2017,03/17/2016,02/13/20 15,12/27/2013,01/31/2013,12/22/2011,0 12/28/2010,01/08/2010,01/18/2008 Seasonal Influenza, PF, 6 M [...] Telephone Encounter - Millie Cage MD - 03/30/2023 1:39 PM ESTSigned Prescriptions: Disp Refills HYDROcodone-Acetaminophen 5-325 MG Oral Ta*45 Tab*0 Sig: Take 1 Tablet by mouth every 6 hours as needed for Pain, Mild. Authorizing Provider: MILLIE CAGE * Telephone Encounter - Millie Cage MD - 03/30/2023 1:38 PM EST I did increase the number - but RUQ abd pain and shoulder pain should be evaluated. If no one has seen her for these, please offer OV for eval. * Telephone Encounter - Tatyana Delaney RN - 03/30/2023 11:29 AM EST Pt in need of refill of hydrocodone - had requested an increase if able for increased shoulder and RUQ pain, but if not able to increase please just refill current dose. Thank you documented in this encounter Plan of Treatment Upcoming Encounters Date Type Department Care Team (Late st Contact Info) Description 05/26/2023 2:00 PM EST Laboratory [facility], [place] [address] [facility] [phone] [facility] [address] [place] [address] 05/27/2023 4:00 PM EST [facility], [facility] [address] [facility] [place] [address] Tatyana Delaney, RN [facility] [address] 05/31/2023 1:30 PM EST Imaging Radiology [facility] [address] [facility] [place] [address] 06/06/2023 2:40 PM EST Pharmacy Pharmacy, [place] [address] [facility] [place] [address] [facility] [address] [place] [address] 06/07/2023 1:20 PM EST Office Visit [facility] [phone] Vira Byrd DO [address] [facility] [address] 07/27/2023 3:00 PM EDT Office Visit Cardiology, [facility] [address] [facility] [place] [address] Wood Wong PA-C [address] [facility] [place] [address] 08/01/2023 2:00 PM EDT Laboratory Laboratory, [place] [address] [facility] [phone] [facility] [address] [place] [address] 08/02/2023 2:00 PM EDT Office Visit Rheumatology [facility] [address] [facility] [place] [address] Eliot Castelan CRNP [address] [facility] [place] [address] 08/08/2023 12:30 PM EDT Office Visit Hematology/Oncology [facility] [address] [facility] [place] [address] Miguel A Alcantar MD [address] [facility] [place] [address] 08/18/2023 1:30 PM EDT Office Visit Nephrology, [facility] [address] [facility] [place] [address] Ana Lin PA-C [address] [facility] [place] [address] 10/11/2023 5:40 PM EDT Office Visit Family [facility] [address] [place] [phone] Millie Cage MD [address] [place] [address] 03/07/2024 1:00 PM EST Office Visit Cardiology, [facility] [address] [facility] [place] [address] Manolo Millan MD [address] [place] [address] Scheduled Procedures Name Priority Associated [...] Additional history exists CKD PHOS USE SMARTSET 94181 12/02/202311/10, 08/06/2022, 08/21/2021, Additional history exists CKD HGB USE SMARTSET 04544 03/25/202403/25, 03/25/2023, 02/28/2023, Additional history exists TSH [...] this encounter Medical Devices Implanted Type Area Echo Vasc Tech Device Identifier Shelf Expiration Date Model / Serial / Lot [employer] Medical Embosphere Micrspheres Implanted:Qty: 2 on 11/02/2019 by Ish Grove MD at [facility] Right: Abdomen Loopd [employer] 05/11/2022 S220GH / S220GH / [id number] Syr Pf 2ml Embospheres 100-300 - [id number] Implanted:Qty: 1 on 11/14/2020 at [facility] [employer] [id number] 08/22/2023 S220GH / / [id number] Envelope Antibacterial Tyrx - [id number] Implanted:Qty: 1 on 12/29/2021 by Fatoumata Roland DO at [facility] [employer] : CRM [id number] 09/23/2022 CMR M6122 / / [id number] Stent Synergy Xd Mr 3.87m46rk - [id number] Implanted:Qty: 1 on 03/22/2022 by Katalina Pearce MD at [facility] [employer] [id number] 07/17/2023 [id number] / / [id number] Valve Berhane 3 Ultra 26mm - [id number] Implanted:Qty: 1 on 12/09/2022 by Manolo Millan MD at [facility] [employer] [id number] 12/04/2023 [id number] / / documented as of this encounter Visit Diagnoses Diagnosis Atherosclerosis of [place] artery of left lower extremity with intermittent claudication (HCC) Atherosclerosis of [place] arteries of the extremities with intermittent claudication [...] the patient have Health Care Power of Organic Search Lead? No Care Teams Hse Advisor Relationship Specialty Start Date End Date Millie Cage MD [address] [place] [address] PCP - General 02/25/09 documented as of this encounter
--- OUTSIDE RECORDS SUMMARY | 2023-05-28 21:27 | External Medical Summary | Summary of Care ---
Author Name Unknown Organization [facility] Address [address] [address] Phone [phone] Care Team Providers Care Ophthalmology Assistant Name Role Phone Millie Cage MD Primary Care Provider [phone] Reason for Visit * Reason Comments Chronic Kidney Disease (CKD) Encounter Details Date Type Department Care Team (Late st Contact Info) Description 05/12/2023 2:00 PM EST Office Visit Nephrology, [place] [address] [facility] [place] [address] Luz Tobias MD [address] [facility] [place] [address] Electrolyte and fluid disorder*; Hypotension due to drugs; Stage 3a chronic kidney disease (HCC); Rheumatoid arthritis of multiple sites without rheumatoid factor (HCC); HTN, goal below 130/80; Staghorn calculus Allergies Active Allergy Reactions Criticality Noted Date [...] 1 2 Active Blood Glucose Monitoring Suppl ([employer] AUTOCODE BLOOD GLUCOSE) w/Device KITIndications:DM type 2 causing neurological disease, not at goal ([facility]) Test blood sugar 4 times daily Dx: E11.9 1 Kit 0 9 Active PRODIGY LANCETS 28G MISCIndications:DM type 2, not at goal ([facility]) TEST BLOOD SUAGER 4 TIMES A DAY [...] goal of less than 7.0% ([facility]),Type 2 diabetes mellitus with stage 3 chronic kidney disease, with long-term current use of insulin, unspecified whether stage 3a or 3b CKD ([facility]),DM type 2 causing neurological disease, not at goal ([facility]) TEST BLOOD SUGAR UP TO FOUR TIMES [...] daily 400 Each 3 3 Active Creon [id number] UNIT Oral Capsule Delayed Release Particles (Pancrelipase (Ndp-Ngni-Qpaz))Indicati ons:Pancreatic insufficiency TAKE ONE CAPSULE BY MOUTH [...] failure with reduced ejection fraction) ([facility]),Coronary artery disease involving kasaan coronary artery of kasaan heart without angina pectoris,Nonrheumatic aortic valve stenosis,Cardiac pacemaker in situ,Tachy-wilfrido syndrome ([facility]) Take 1 Tablet by mouth at bedtime. 0 Active Latanoprost 0.005 % Ophthalmic Solution (Xalatan) Instill 1 Drop into both eyes at bedtime. Please dispense day supply 7.5 mL 1 3 Active [...] long-term current use of insulin ([facility]) Inject 30 units daily 45 mL 1 [...] systolic and diastolic congestive heart failure ([facility]) Take 1 Capsule by mouth in the [...] ANXIETY 40 Tablet 1 4 Active Nystatin 128409 UNIT/GM External Powder (Nyamyc) APPLY TO AFFECTED [...] n 5-325 MG Oral TabletIndications:Athero sclerosis of kasaan artery of left lower extremity with intermittent [...] to excess calories 0 08/09/2022 Atherosclerosis of kasaan ar jania of left lower extremity with intermittent claudication 08/09/2022 Coronary artery disease invo lving kasaan coronary artery of kasaan heart with angina pectoris 03/22/2022 Last Assessment [...] 12/21/2016 Overview: Diabetic retinopathy Rheumatoid arthritis of [facility] sites without rheumatoid factor 01/26/2016 [...] program 11/08/2018 11/12/2019 Overview: DO NOT DELETE [employer] DETECT Study: Project # [id number], Saw Cleaner: Manny Santacruz, PhD. SUMMARY: Goal: Establish test [...] contact study staff at ; after hours Saw Cleaner via the [facility] degreaser operator . Please contact study team before resolving/deleting from patients problem list. Study phone number: [phone]. Diagnosis changed due to Research Module. Go to Snapshot for study details. Encounter for examination fo r normal comparison and control in clinical research program 11/08/2018 12/10/2021 Overview: DO NOT DELETE - Geoff [facility] DETECT Study: Project # [id number], Saw Cleaner: Kevin Pearce, MS, MPH. SUMMARY: Goal: Establish [...] contact study staff at ; after hours Saw Cleaner via the [facility] degreaser operator . - Please contact study team before resolving/deleting from patients problem list. Study phone number: [phone]. Diagnosis changed due to Research Module. Go [...] Sign Reading Time Taken Comments Blood Pressure 95/60 05/12/2023 2:16 PM EST Pulse 61 05/12/2023 2:16 PM EST Temperature 36.4 C (97.6 F) 05/12/2023 2:16 PM ES T Respiratory Rate 20 05/12/2023 2:16 PM EST Oxygen Saturation 99% 05/12/2023 2:16 PM EST Inhaled Oxygen Concentration - - Weight 97 kg (213 lb 12.8 oz) 05/12/2023 2:16 PM EST Height - - Body Mass Index 37.87 04/25/2023 1:10 PM EST documented in this encounter Functional Status Functional [...] this encounter Patient Instructions * Patient Instructions* Luz Tobias MD - 05/12/2023 2:53 PM EST -no medication changes for now but likely to cut back on water pills once we see labs -labs today -continue daily weights sent to [facility] -eat a low sodium diet (less than 2000 mg or 1/2 tsp) daily -keep fluid intake at about 64 oz daily or a bit less -avoid medicines like aleve, advil, ibuprofen, aspirin more than 81 mg daily and other NSAIDS whichare not good for kidney patients. Take only tylenol (acetaminophen) up to 2000 mg daily as needed for pain or as directed by your primary care provider. documented in this encounter Progress Notes * Luz Tobias MD - 05/12/2023 2:27 PM EST NEPHROLOGY CLINIC NOTE Nephrology, [facility] [address] [place] [address] 05/12/2023, 2:28 PM Patient Name: Orquidea Valencia BACKGROUND: 73 year old female presents for management of volume overload in the setting of multiple recent hospital stays, CKD3, stones, microalbuminuria. PMH includes RA on chronic prednisone/MTX/plaquenil, cardiomyopathy (01/2021 EF 50% /moderate >> 01/2023 EF 25% severe ), HTN, CAD s/p LAD PCI 2021, PVD, pAF w/ tachy-wilfrido s/p pacer (no AC d/t GI bleeding), LAUQITA on CPAP, chronic lymphedema, HCC s/p embolization, SIM, DM 2 on insulin, LAQUITA on CPAP, HL, blind, hypothyroid after thyroidectomy for papillary thyroid CA, class 3 obesity. 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 Hx of LLE cellulitis remotely x 2 after a dog bite; worsened by chronic lymphedema. has significant dry mouth. stones emerged 2019 and has been quite active ever since, needing multiple procedures and ICU admission for sepsis as below. Follows w/ [facility] urology. Path unavailable. She is legally blind from retinopathy/detached retinopathy. Diabetes is well controlled historically . Also hx of corneal ulcers. Patient with history of rheumatoid arthritis managed w/ methotrexate Plaquenil and prednisone; follows with Dr. Harmon. Cysto negative in past for microscopic hematuria; also w/ chronic inflammation in urine. Ct done inthe past was unimpressive and seen by two different urologists-Dr. Alicea and Dr. Bo. donis, anca, c3, c4 all were negative. Spring 2019 she had just been dx'd w/ SIM and was preparing for bx of liver mass when she was diagnosed w/ liver CA just before hospital admission. After second hosp d/c >> had mapping done for liver CA tx >> got injection with black poppy seed oil. Tumor responded to therapy and disappeared per pt. Follows w/ Dr Alcantar and GI. FREQUENT hospitalizations/procedures starting spring 2019 Hospitalized [facility] 10/18-10/26/19 for stone impacted needing stent; needed ICU stay for sepsis Hospitalized again [facility] 10/29-11/01/19 for diabetic coma/ hypoglycemia. -Then 11/22/19 had 7 kidney stones removed, all 9 [address] or bigger by Dr Tellez; needed another [address]. [address] scan 3 wks back and found another stone in R kidney 7 mm -Had 03/2020 R kidney lithotripsy and L kidney w/ noted dilatation seen on 03/01 > got BL stents. -On 04/28/20 had 2 more stones >> [facility] u/s lithotripsy, both too big to pass; hospitalised [facility] 08/30- w/ staghorn calculus, ALONA from IV contrast/urosepsis; also hyponatremia, recurrent UTI. S/p pacemaker summer / fall 2021 No tobacco. Avoids nsaids. Lives in a trailer w/ her who has vascular dementia Wt December 2021 low 270s; was 255 lb at home per report 01/2022. Spring 2022 w/ EF down 41% > 25% -Admitted [facility] 11/05-11/24 , combined systolic/diastolic acute HF, BL venous stasis ulcers -Transferred to [facility] 11/25-12/17 for TAVR, done 12/09; then d/c home 12/17 w/ creatinine 1.2 and wt 224 lbw/ HHN and close OP f/u. -Then readmitted to [facility] 12/18-12/24 for generalized weakness, UTI -d/c to [facility] x several weeks had R stent exchange 02/03 after routine urology f/u earlier last month 229.2 lb 02/16/[address] [facility] blue tooth scale; today had already peed/ eaten before Was 225.4 lb on leaving [facility] 01/08; got down as far as [address] Salmeron PCP f/u 01/17/23 Legs were thin at d/c Notes legs still swollen today after 2 days increased torsemide Had terrible fluid in abdomen in hospital but that resolved No longer pushing 80 oz daily fluid intake for stones w/ new HF dx 2 masses in liver , both w/ tumor > got chemo beads for this TODAY 05/12/2023: Had recent course of 5 days metolazone d/t wt gain. Upcoming CT scan 05/31/23 to f/u liver issues. Also needs to schedule stent exchange. Finishing 10 day course of levaquin currently for L>R leg wound infection; had been on doxycycline previously. G@H comes every other day and legs looking better. Once wound nurses done, has Lesliecoming in q4-6 wks Back on higher doses of spironolactone and torsemide. Finished 5 days metolazone. Still on higher dose potassium 40 mEq bid. GHP@ home recently weighed her w/ #s unavailable to me at this OV. Has 32 oz cup full in AM w/ pills; 8 oz cup of coffee in AM; 16 oz cup w/ evening pills; may sip water overnight as well>>about 55-60 oz. Walks around inside her house on walker > getting a bit slower/harder. Goal in life to see granddaughter in 2024; and to see grandson get a job. Acc by friend today REVIEW OF SYSTEMS: No F/C, intended wt loss as below, energy level even lower and appetite still low No palpitations, angina, orthopnea; slightly improved past 48 hrs but overall improved LE edema No cough, wheeze, or dyspnea Had been having significant N and ultimately ER >> ? Attributed to tumor sloughing b/c w/u else negative; some C; no D/ currentabd pain No dysuria, hematuria, nocturia >2X; no new/worrisome voiding sx No presyncopal or orthostatic symptoms; no falls Current Outpatient Medications Medication Sig Dispense Refill TYLENOL ARTHRITIS PAIN 650 MG PO TBCR Take by mouth as needed. 0 MULTIVITAMIN/IRON PO TABS 1 daily BIOTENE MOISTURIZING MOUTH MT SOLN use four times daily 1 Bottle 1 Probiotic Daily Oral Capsule Take 1 Cap by mouth daily. Meclizine HCl 25 MG Oral Tablet (Antivert) [...] in the morning. Takes at bedtime . Fluticasone Propionate 50 MCG/ACT Nasal Suspension (Flonase) ADMINISTER 2 SPRAYS IN EACH NOSTRIL EACH MORNING 48 g 1 tiZANidine HCl 2 MG Oral Tablet (Zanaflex) TAKE 1 TABLET BY MOUTH EVERY 6 HOURS NEEDED FOR MUSCLE SPASM 30 Tablet 0 Betaxolol HCl 0.5 % Ophthalmic Solution Instill [...] mouth in the morning. 90 Tablet 3 Creon [id number] UNIT Oral Capsule Delayed Release Particles (Pancrelipase (Oac-Jlke-Swix)) TAKE ONE CAPSULE BY MOUTH WITH EACH [...] mouth in the morning. 90 Tablet 3 HYDROcodone-Acetaminophen 5-325 MG Oral Tablet Take 1 Tablet by mouth every 6 hours as needed for Pain, Mild. 45 Tablet 0 LORazepam 0.5 MG Oral Tablet (Ativan) TAKE 1 TABLET 3 TIMES A DAY NEEDED FOR ANXIETY 40 Tablet 1 Sertraline HCl 25 MG Oral Tablet (Zoloft) Take 1 Tablet by mouth in the morning. 90 Tablet 3 metOLazone 2.5 MG Oral Tablet (Zaroxolyn) Take 1 Tablet by mouth in the morning. Daily for 5 days only.. 30 Tablet 0 levoFLOXacin 500 MG Oral Tablet (Levaquin) Take 1 Tablet by mouth in the morning for 10 days. untilgone.. 10 Tablet 0 NEBULIZER/TUBING/MOUTHPIECE KIT use with [email or web address] 1 pack 5 Blood Glucose Monitoring Suppl ([employer] AUTOCODE BLOOD GLUCOSE) w/Device KIT Test blood sugar 4 times daily Dx: E11.9 1 Kit 0 PRODIGY LANCETS 28G MISC TEST BLOOD SUAGER 4 TIMES A DAY DX E11.9 500 Each 3 Nitroglycerin 0.4 MG Sublingual Tablet Sublingual (Nitrostat) 1tablet under tongue every 5 min as needed with chest pain up to 3 doses in 15 minutes 25 Tablet 3 Prodigy No Coding Blood Gluc In Vitro Strip (Glucose Blood) TEST BLOOD SUGAR UP TO FOUR TIMES [id number] Strip 3 Insulin Syringe-Needle U-100 31G X 5/16" 1 ML (ReliOn Insulin Syringe) USE WITH INSULIN 4 TIMES DAILY 400 Each 3 BD Pen Needle Corinna U/F 32G X 4 MM (Insulin Pen Needle) Use to inject insulin 4 times daily 400 Each3 Nystatin 918362 UNIT/GM External Powder (Nyamyc) APPLY TO AFFECTED AREAS UNDER THE BREASTS THREE TIMES A DAY NEEDED 30 g 1 No current facility-administered medications for this visit. Review of patient's allergies indicates: Allergen Reactions Cephalosporins Anaphylaxis and Edema face/lips/tongue Anaphylaxis to cefaclor, facial swelling to cephalexin. Sulfa Antibiotics Hives Other reaction(s): Hives Bactrim Stadol [Butorphanol Tartrate] Heart racing Trimethoprim Other reaction(s): Hives Ciprofloxacin Other reaction(s): Nausea PHYSICAL EXAMINATION: BP Readings from Last 6 Encounters: 05/12/23 95/60 05/04/23 96/60 04/25/23 122/74 04/14/23 118/72 04/13/23 112/54 03/30/23 100/64 Wt Readings from Last 6 Encounters: 05/12/23 97 kg (213 lb 12.8 oz) 05/04/23 105.4 kg (232 lb 4.8 oz) 04/14/23 106.6 kg (235 lb) 04/13/23 100.8 kg (222 lb 3.2 oz) 02/23/23 104 kg (229 lb 3.2 oz) 02/16/23 104.3 kg (230 lb) Pulse Readings from Last 6 Encounters: 05/12/23 61 05/04/23 65 04/25/23 77 04/14/23 68 04/13/23 62 03/30/23 60 NAD, oriented x 3, obese, in w/c Normocephalic, atraumatic, eyes closed, visually impaired MMM Supple neck RRR w/o m/g/r; 2-3+ proximal dependent edema CTAB w/ reasonable air mvt NT abd, +BS, soft No cyanosis or clubbing No rash; eyelids violaceous No tremor; +global weakness; fluent speech, good historian LABS: Recent Labs Units 04/25/23 1417 04/14/23 1602 03/24/23 1320 02/28/23 0740 SODIUM - [facility] mmol/L 137 136 138 139 POTASSIUM - [facility] mmol/L 4.7 5.0 5.4* 3.9 CHLORIDE - [facility] mmol/L 100 99 101 101 CO2 - [facility] mmol/L 27 28 28 29 BUN - [facility] mg/dL 31* 41* 33* 30* CREATININE - [facility] mg/dL 1.2* 1.4* 1.3* 1.2* ESTIMATED GLOMERULAR FILTRATION RATE - [facility] mL/min 50* 38* 43* 50* Recent Labs Units 03/25/23 1040 02/28/23 0740 02/17/23 0956 02/16/23 1414 01/14/23 1325 12/17/22 0632 09/28/22 1438 08/06/22 1520 12/24/21 1612 08/21/21 1543 HGB - [facility] g/dL 10.2* 10.5* 10.6* 10.9* < > 9.8* < > 11.4* < > -- HEMOGLOBIN-OUTSIDE LAB -- -- -- -- -- -- -- -- < > -- FERRITIN - [facility] ng/mL -- -- -- -- -- 748* -- 327* -- -- TRANSFERRIN SATURATION PERCENT - [facility] % -- -- -- -- -- 25 -- 11* -- 12* < > = values in this interval not displayed. Recent Labs Units 04/25/23 1417 04/14/23 1602 03/24/23 1320 02/28/23 0740 12/02/22 0522 12/01/22 2042 09/16/22 0939 09/07/22 1429 08/06/22 1520 09/11/21 1633 08/21/21 1543 05/13/21 1432 CALCIUM - [facility] mg/dL 8.9 9.3 9.2 9.3 < > 10.3* < > 8.9 9.0 < > 9.1 10.0 PHOSPHORUS - [facility] mg/dL -- -- -- -- -- 3.5 -- -- 3.2 -- 3.2 -- 25-HYDROXY VITAMIN D - [facility] ng/mL -- -- -- -- -- -- -- 41 -- -- 62 -- PTH - [facility] pg/mL 80* -- -- -- -- -- -- -- -- -- -- 28 < > = values in this interval not displayed. Recent Labs Units 04/25/23 1417 08/06/22 1520 04/13/22 1454 02/12/22 1341 HEMOGLOBIN A1C - [facility] % 7.7* 7.4* 7.1* 6.6* Recent Labs Units 09/07/22 1439 08/06/22 1533 05/13/21 1451 ALBUMIN / CREATININE RATIO, URINE - [facility] mg/g Creat 176* 268* 44* Recent Labs Units 11/29/22 1029 09/14/21 1057 08/21/21 1546 CLARITY, URINE - [facility] Clear Slightly Cloudy* Clear GLUCOSE, URINE - [facility] mg/dL Negative 100* Negative BILIRUBIN, URINE - [facility] Negative Negative Negative KETONE, URINE - [facility] mg/dL Negative Negative Negative SPECIFIC GRAVITY, URINE - [facility] 1.010 1.010 1.006 BLOOD, URINE - [facility] Negative Trace* Moderate* PH, URINE - [facility] Units 6.5 5.0 6.5 PROTEIN, URINE - [facility] mg/dL Negative Negative Negative UROBILINOGEN, URINE - [facility] mg/dL Normal 0.2 Normal NITRITE, URINE - [facility] Negative Negative Negative ESTERASE, URINE - [facility] Large* Moderate* Moderate* BACTERIA, URINE - [facility] /HPF 0-25 26-50* 26-50* WBC, URINE - [facility] /HPF 30-49* 20-29* 10-19* RBC, URINE - [facility] /HPF 0-2 3-5* 0-2 ASSESSMENT AND PLAN: Electrolyte and fluid disorder (Primary) Staghorn calculus Stage 3a chronic kidney disease (HCC) Rheumatoid arthritis of multiple sites without rheumatoid factor (HCC) Hypotension due to drugs HTN, goal below 130/80 Follow Up: Return in about 3 months (around 08/10/2023) for clinic visit w/ PA. | For: clinic visit w/ PA | Check-out note: To lab waitlist Chronic volume overload and tendency to hyperkalemia at times -obtain [facility] weights (staff mssg sent to nurses) -cont fluid intake targes -labs today -cont K supplements current dose For upcoming stent eschange -fluid intake target as below balances needs to flush urinary space and to manage volume status BP on lower side but asx >continue torsemide, spironolactone, metolazone -labs as above Patient Instructions -no medication changes for now but likely to cut back on water pills once we see labs -labs today -[facility] -eat a low sodium diet (less than 2000 mg or 1/2 tsp) daily -keep fluid intake at about 64 oz daily or a bit less -avoid medicines like aleve, advil, ibuprofen, aspirin more than 81 mg daily and other NSAIDS whichare not good for kidney patients. Take only tylenol (acetaminophen) up to 2000 mg daily as needed for pain or as directed by your primary care provider. Luz Tobias MD Nephrology, [address] [place] [address] CC: Ref: MILLIE CAGE[[id number]] [address] [facility] [address] (office) [phone] (fax) PCP: MILLIE CAGE [address] [facility] [place] [address] [phone] This chart was completed in part utilizing [employer] Easy Speech Voice Recognition Software. Randomword insertions, pronoun errors, and incomplete sentences are an occasional consequence of this system due to software limitations, and ambient noise. Any questions or concerns about the content, text, or information contained within the body of this dictation should be directly addressed to the provider for clarification. documented in this encounter Nursing Notes * Krystin Munroe RN - 05/12/2023 2:19 PM EST Follow up visit today. Had valve replacement in November. Chemo beads in Liver- Swelling improved since extra diuretics. CT scan May 31 for follow up. Needs a stent exchange in kidney-Will schedule thissoon. documented in this encounter Plan of Treatment Upcoming Encounters Date Type Department Care Team (Late st Contact Info) Description 05/26/2023 2:00 PM EST Laboratory Laboratory, [place] [address] [place] [place] [address] [facility] [address] [facility] [place] [address] 05/27/2023 4:00 PM EST Home Visit [facility] [address] [place] [address] Tatyana Delaney, RN [address] [place] [address] 05/31/2023 1:30 PM EST Imaging Radiology [address] [place] [address] 06/06/2023 2:40 PM EST Pharmacy Pharmacy, [place] [address] [place] [address] [place], [facility] [address] [place] [address] 06/07/2023 1:20 PM EST Office Visit [facility] [address] [place] [phone] Vira Byrd DO [address] [place] [address] 07/27/2023 3:00 PM EDT Office Visit Cardiology, [facility] [address] [facility] [place] [address] Wood Wong PA-C [address] [place] [address] 08/01/2023 2:00 PM EDT Laboratory Laboratory, [place] [address] [place] [phone] [facility] [address] [place] [address] 08/02/2023 2:00 PM EDT Office Visit Rheumatology [facility] [address] [facility] [place] [address] Eliot Castelan CRNP [facility] [address] [facility] [place] [address] 08/08/2023 12:30 PM EDT Office Visit Hematology/Oncology [facility] [place] [address] [place] [address] Miguel A Alcantar MD [address] [place] [address] 08/18/2023 1:30 PM EDT Office Visit Nephrology, [place] [address] [place], [place] [address] Ana Lin PA-C [address] [place], [place] [address] 10/11/2023 5:40 PM EDT [facility] [address] [place] [phone] Millie Cage MD [address] [place] [address] 03/07/2024 1:00 PM EST Office Visit Cardiology, [facility] [address] [place], [place] [phone] Manolo Millan MD [address] [place] [address] Scheduled Procedures Name Priority Associated [...] Additional history exists CKD PHOS USE SMARTSET 64737 12/02/202311/10, 08/06/2022, 08/21/2021, Additional history exists CKD HGB USE SMARTSET 25788 03/25/202403/25, 03/25/2023, 02/28/2023, Additional history exists TSH [...] this encounter Medical Devices Implanted Type Area Tab Card Press Operator Device Identifier Shelf Expiration Date Model / Serial / Lot Innoviti Embosphere Micrspheres Implanted:Qty: 2 on 11/02/2019 by Ish Grove MD at [facility] Right: Abdomen [employer] 05/11/2022 S220GH / [id number] / [id number] Syr Pf 2ml Embospheres 100-300 - [id number] Implanted:Qty: 1 on 11/14/2020 at [facility] [employer] [id number] 08/22/2023 S220GH / / [id number] Envelope Antibacterial Tyrx - [id number] Implanted:Qty: 1 on 12/29/2021 by Fatoumata Roland DO at [facility] [employer] : CRM [id number] 09/23/2022 CMR [id number] / / [id number] Stent Synergy Xd Mr 3.52r59mr - [id number] Implanted:Qty: 1 on 03/22/2022 by Katalina Pearce MD at [facility] [employer] [id number] 07/17/2023 [id number] / / [id number] Valve Berhane 3 Ultra 26mm - [id number] Implanted:Qty: 1 on 12/09/2022 by Manolo Millan MD at [facility] [employer] [id number] 12/04/2023 [id number] / / documented as of this encounter Procedures Procedure Name Priority Date/Time Associated Diagnosis Comments BASIC METABOLIC PANEL Routine 05/12/2023 3:08 PM EST Electrolyte and fluid disorder Hypotension due to drugs MAGNESIUM Routine 05/12/2023 3:08 PM EST Electrolyte and fluid disorder documented in this encounter Results * MAGNESIUM (05/12/2023 3:08 PM EST) Magnesium 2.1 1.5 - 2.6 mg/dL 05/12/2023 4:24 PM EST [facility] 56-02 Blood Venous blood specimen / Unknown Venipuncture / Unknown 05/12/2023 3:08 PM EST 05/12/2023 3:08 PM EST Luz Tobias MD LAB BLOOD ORDERAB LES [facility] 56- [address] [place] [address] * (ABNORMAL) BASIC METABOLIC PANEL (05/12/2023 3:08 PM EST) BUN 59(H) 6 - 20 mg/dL 05/12/2023 4:24 PM EST [facility] 56- Creatinine 1.9(H) 0.5 - 1.0 mg/dL 05/12/2023 4:24 PM EST [facility] 56 Estimated Glomerular Filtration Rate 27(L) >=60 mL/min 05/12/2023 4:24 PM EST [facility] 56- Comment:eGFR is calculated b ased on the CKD-EPI 2020 equation Sodium 138 135 - 146 mmol/L 05/12/2023 4:24 PM EST [facility] 56- Potassium 3.6 3.5 - 5.1 mmol/L 05/12/2023 4:24 PM EST [facility] 56- Chloride 90(L) 98 - 107 mmol/L 05/12/2023 4:24 PM EST [address] CO2 37(H) 22 - 32 mmol/L 05/12/2023 4:24 PM EST [facility] 56 Anion Gap 11 7 - 15 mmol/L 05/12/2023 4:24 PM [facility] 56- Glucose 103 70 - 120 mg/dL 05/12/2023 4:24 PM [facility] 56- Calcium 10.0 8.4 - 10.2 mg/dL 05/12/2023 4:24 PM [facility] 56- Blood Venous blood specimen / Unknown Venipuncture / Unknown 05/12/2023 3:08 PM EST 05/12/2023 3:08 PM EST Luz Tobias MD LAB BLOOD ORDERAB [facility] [address] [place] [address] documented in this encounter Visit Diagnoses Diagnosis Electrolyte and fluid disorder- Primary Electrolyte and fluid disorders not elsewhere classified Hypotension due to drugs Other iatrogenic hypotension Stage 3a chronic kidney disease (HCC) Rheumatoid arthritis of multiple sites without rheumatoid factor (HCC) Rheumatoid arthritis HTN, goal below 130/80 Unspecified essential hypertension Staghorn calculus Calculus of kidney documented in this encounter Advance Directives Latest [...] the patient have Health Care Power of Side Door Man? No Care Teams Ophthalmology Assistant Relationship Specialty Start Date End Date Millie Cage MD [address] [place] [address] PCP - General 02/25/09 documented as of this encounter
--- OUTSIDE RECORDS SUMMARY | 2023-05-28 21:28 | External Medical Summary | Summary of Care ---
Author Name Unknown Organization [facility] Address [address] [facility] [place] [address] Phone [phone] Care Team Providers Care Leveling Machine Operator Name Role Phone David Umanzor MD Primary Care Provider [phone] Reason for Visit * Reason Onset Date Comments [facility]: Maintenance 05/04/2023 Encounter Details Date Type Department Care Team (Late st Contact Info) Description 05/04/2023 Telephone [facility], [facility] [address] [place] [address] Tatyana Delaney RN [address] [place] [address] [facility]: Maintenance Allergies Active Allergy Reactions Criticality Noted Date Comments Bactrim 02/09/2010 Cephalosporins Anaphylaxis,Edema face/lips/tongue High 04/11/2009 Anaphylaxis to cefaclor, facial swelling to cephalexin. Ciprofloxacin Low 03/30/2021 Other reaction(s): Nausea Butorphanol Tartrate 02/09/2010 Heart racing Sulfa Antibiotics Hives High 05/22/2002 Other reaction(s): Hives Trimethoprim 04/15/2022 Other reaction(s): Hives documented as of this encounter (statuses as of 05/08/2023) Medications Medication Sig Dispensed Refills Start Date [...] 1 2 Active Blood Glucose Monitoring Suppl ([employer] AUTOCODE BLOOD GLUCOSE) w/Device KITIndications:DM type 2 [...] Active Fluticasone Propionate 50 MCG/ACT Nasal Suspension (Flonase)Indications:Cadd Operator sanket rhinitis ADMINISTER 2 SPRAYS IN [...] daily 400 Each 3 3 Active Creon 85796-88980 UNIT Oral Capsule Delayed Release Particles (Pancrelipase (Qlb-Iezx-Psln))Indicatio ns:Pancreatic insufficiency TAKE ONE CAPSULE BY MOUTH [...] [facility]),Coronary artery disease involving [place] coronary artery of [place] heart without angina pectoris,Nonrheumatic aortic valve stenosis,Cardiac [...] combined systolic and diastolic congestive heart failure ([facility]) Take 1 Capsule by mouth in [...] HYDROcodone-Acetaminophen 5-325 MG Oral TabletIndications: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 45 Tablet 0 4 Active LORazepam 0.5 MG Oral Tablet (Ativan)Indications:Anxie ty state TAKE 1 TABLET 3 TIMES A DAY NEEDED FOR ANXIETY 40 Tablet 1 4 Active Nystatin 635297 UNIT/GM External Powder (Nyamyc) APPLY TO AFFECTED [...] as of this encounter (statuses as of 05/08/2023) Active Problems Problem Noted Date Diagnosed Date [...] to excess calories 0 08/09/2022 Atherosclerosis of [place] ar jania of left lower extremity with intermittent claudication 08/09/2022 Coronary artery disease invo lving [place] coronary artery of [place] heart with angina pectoris 03/22/2022 Last Assessment [...] 12/21/2016 Overview: Diabetic retinopathy Rheumatoid arthritis of [facility] sites without rheumatoid factor [...] as of this encounter (statuses as of 05/08/2023) Resolved Problems Problem Noted Date Diagnosed Date [...] 11/12/2019 Overview: DO NOT DELETE [facility] Study: Project # [id number], [employer]: Manny Santacruz, PhD. SUMMARY: Goal: Establish test [...] contact study staff at ; after hours [employer] via the [facility] cover mat machine operator . Please contact study team before resolving/deleting from patients problem list. Study phone number: [phone]. Diagnosis changed due to Research Module. Go to [employer] for study details. Encounter for examination fo r normal comparison and control in clinical research program 11/08/2018 12/10/2021 Overview: DO NOT DELETE - [facility] Study: Project # [id number], [employer]: Kevin Pearce, MS, MPH. SUMMARY: Goal: Establish [...] contact study staff at ; after hours [employer] via the [facility] cover mat machine operator . - Please contact study team before resolving/deleting from patients problem list. Study phone number: [phone]. Diagnosis changed due to Research Module. Go to [employer] for study details. Food insecurity 08/21/2018 [...] as of this encounter (statuses as of 05/08/2023) Immunizations Name Administration Dates Next Due COVID-19 [...] encounter Miscellaneous Notes * Telephone Encounter - David Umanzor MD - 05/04/2023 3:43 PM EST Yes - should change - there is a different encounter on this with details * Telephone Encounter - Tatyana Delaney RN - 05/04/2023 11:[address] Umanzor, Can you please review the wound culture? She is currently on the Doxycycline. Does the antibiotic need changed? Please advise. Thank you! documented in this encounter Plan of Treatment Upcoming Encounters Date Type Department Care Team (Late st Contact Info) Description 05/12/2023 2:00 PM EST Office Visit Nephrology, [facility] [address] [place] [address] Luz Tobias MD [address] [place] [address] 05/26/2023 2:00 PM EST Laboratory Laboratory, [place] [address] [place] [phone] [facility] [address] [place] [address] 05/27/2023 4:00 PM EST Home Visit [facility] [address] [facility] [place] [address] Tatyana Delaney RN [address] [facility] [place] [address] 05/31/2023 1:30 PM EST Imaging Radiology [facility] [facility] [address] [facility] [place] [address] 06/06/2023 2:40 PM EST Pharmacy Pharmacy, [place] [address] [facility] [address] [place] [facility] [address] [facility] [address] 06/07/2023 1:20 PM EST Office Visit Sleep Disorders Ctr [facility] [address] [facility] [place] [phone] Vira Byrd DO [address] [facility] [place] [address] 07/27/2023 3:00 PM EDT Office Visit Cardiology, [facility] [place] [address] [address] PAMirandaC [address] [facility] [address] 08/01/2023 2:00 PM EDT Laboratory Laboratory, [place] [address] [facility] [phone] [facility] [address] [facility] [place] [address] 08/02/2023 2:00 PM EDT Office Visit Rheumatology [facility] [address] [facility] [place] [address] Eliot Castelan CRNP [address] [facility] [place] [address] 08/08/2023 12:30 PM EDT Office Visit Hematology/Oncology [facility] [address] [place] [address] Miguel A Alcantar MD [address] [place] [place] [address] 10/11/2023 5:40 PM EDT Office Visit Family Practice, [place] [address] [place] [phone] David Umanzor MD [address] [place] [address] 03/07/2024 1:00 PM EST Office Visit Cardiology, [facility] [address] [facility] [place] [id number] Manolo Millan MD [address] [place] [address] Scheduled Procedures Name Priority Associated [...] Additional history exists Mammogram 07/28/2023 07/27/2022, 07/10, 01/09/2019, Additional history exists Albumin/Creatinine Ratio 09/08/2023 023, 08/06/2022, 05/13/2021, Additional history exists GFR 10/24/2023 04/25/2023, 01/0 07/2023, 03/24/2023, Additional history exists HbA1c 10/24/2023 04/25/2023, 07/11, 04/13/2022, Additional history exists CKD PHOS USE SMARTSET 22365 12/02/202311/10, 08/06/2022, 08/21/2021, Additional history exists CKD HGB USE SMARTSET 60613 03/25/202403/25, 03/25/2023, 02/28/2023, Additional history exists TSH 04/25/2024 04/25/2023, 0 06/2022, 05/13/2021, Additional history exists DXA Scan 08/26/2025 08/26/2021, 08/21/2012 DTaP,Tdap,and Td Vaccines (4 - Td [...] this encounter Medical Devices Implanted Type Area B2B Sales Executive Device Identifier Shelf Expiration Date Model / Serial / Lot RETC Embosphere Micrspheres Implanted:Qty: 2 on 11/02/2019 by Ish Grove MD at [facility] Right: Abdomen [employer] 05/11/2022 S220GH / [id number] / [id number] Syr Pf 2ml Embospheres 100-300 - [id number] Implanted:Qty: 1 on 11/14/2020 at [facility] [employer] [id number] 08/22/2023 [id number] / / [id number] Envelope Antibacterial Tyrx - [id number] Implanted:Qty: 1 on 12/29/2021 by Fatoumata Roland DO at [facility] [employer] : CRM [id number] 09/23/2022 CMR [id number] / / [id number] Stent Synergy Xd Mr 3.11k40cn - [id number] Implanted:Qty: 1 on 03/22/2022 by Katalina Pearce MD at [facility] [employer] [id number] 07/17/2023 [id number] / / [id number] Valve Berhane 3 Ultra 26mm - [id number] Implanted:Qty: 1 on 12/09/2022 by Manolo Millan MD at [facility] [employer] [id number] 12/04/2023 [id number] / / documented as of this encounter [...] the patient have Health Care Power of Provider Engagement Executive? No Care Teams Leveling Machine Operator Relationship Specialty Start Date End Date David Umanzor MD [address] [place] [address] PCP - General 02/25/09 documented as of this encounter
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
--- OUTSIDE RECORDS SUMMARY | 2023-05-28 21:28 | External Medical Summary | Summary of Care ---
Author Name Unknown Organization [facility] Address [address] [facility] [place] [address] Phone [phone] Care Team Providers Care Local Intermodal Truck Driver Name Role Phone David Umanzor MD Primary Care Provider [phone]- [phone] Reason for Visit * Reason Onset Date Comments [facility]: Maintenance 03/30/2023 Encounter Details Date Type Department Care Team (Late st Contact Info) Description 03/30/2023 Telephone [facility], [facility] [address] [place] [address] Tatyana Delaney RN [address] [place] [address] [facility]: Maintenance Allergies Active Allergy [...] 03/21/20 12 Active Blood Glucose Monitoring Suppl (Envoy TherapeuticsIGY AUTOCODE BLOOD GLUCOSE) w/Device KITIndications:DM type 2 causing neurological disease, not at goal ([facility]) Test blood sugar 4 times daily Dx: E11.9 1 Kit 0 03/19/20 19 Active PRODIGY LANCETS 28G MISCIndications:DM type 2, not at goal ([facility]) TEST BLOOD SUAGER 4 TIMES A [...] goal of less than 7.0% ([facility]),Type 2 diabetes mellitus with stage 3 chronic kidney disease, with long-term current use of insulin, unspecified whether stage 3a or 3b CKD ([facility]),DM type 2 causing neurological disease, not at goal ([facility]) TEST BLOOD SUGAR UP TO FOUR [...] 4 TIMES DAILY 400 Each 3 04/19/19 Active Betaxolol HCl 0.5 % Ophthalmic Solution Instill 1 Drop into the left eye in the morning and 1 Drop before bedtime. 10 mL 5 06/02/19 23 Active Brimonidine Tartrate 0.2 % Ophthalmic Solution (Alphagan) Instill 1 Drop into the left eye in the morning and 1 Drop before bedtime. 15 mL 3 06/03/19 Active Folic Acid 1 MG Oral TabletIndications:Encou [...] daily 400 Each 3 08/07/19 Active Creon [id number] UNIT Oral Capsule Delayed Release Particles (Pancrelipase (Ggw-Fzyr-Kbkm))Indicat ions:Pancreatic insufficiency TAKE ONE CAPSULE BY MOUTH [...] failure with reduced ejection fraction) ([facility]),Coronary artery disease involving quechan coronary artery of quechan heart without angina pectoris,Nonrheumatic aortic valve stenosis,Cardiac pacemaker in situ,Tachy-wilfrido syndrome ([facility]) Take 1 Tablet by mouth at [...] long-term current use of insulin ([facility]) Inject 30 units daily 45 mL [...] and diastolic congestive heart failure ([facility]) Take 1 Capsule by mouth in [...] Tab 3 03/09/20 10 024 Discontinued Nystatin [id number] UNIT/GM External Powder (Nystop) APPLY TO AFFECTED AREAS UNDER THE BREASTS THREE TIMES PER DAY NEEDED 30 g 1 09/14/19 23 024 Discontinued LORazepam 0.5 MG Oral Tablet (Ativan)Indications:Anx iety state TAKE 1 TABLET 3 TIMES A DAY NEEDED FOR ANXIETY 40 Tablet 1 02/24/20 23 024 Discontinued(R efill) HYDROcodone-Acetaminoph en 5-325 MG Oral TabletIndications:Ather osclerosis of quechan artery of left lower extremity with intermittent [...] to excess calories 0 08/09/2022 Atherosclerosis of quechan ar jania of left lower extremity with intermittent claudication 08/09/2022 Coronary artery disease invo lving quechan coronary artery of quechan heart with angina pectoris 03/22/2022 Last Assessment [...] retinopathy Rheumatoid arthritis of [facility] sites without rheumatoid factor 01/26/2016 Last Assessment [...] [facility] DETECT Study: Project # [id number], Newscast Director: Manny Santacruz, PhD. SUMMARY: Goal: Establish [...] contact study staff at ; after hours Newscast Director via the [facility] flooring machine operator . Please contact study team before resolving/deleting from patients problem list. Study phone number: [phone]. Diagnosis changed due to Research Module. Go to Snapshot for study details. Encounter for examination fo r normal comparison and control in clinical research program 11/08/2018 12/10/2021 Overview: DO NOT DELETE - [facility] Study: Project # [id number], Newscast Director: Kevin Pearce, MS, MPH. SUMMARY: Goal: [...] contact study staff at ; after hours Newscast Director via the [facility] flooring machine operator . - Please contact study team before resolving/deleting from patients problem list. Study phone number: [phone]. Diagnosis changed due to Research Module. Go [...] encounter Miscellaneous Notes * Telephone Encounter - Jessica Kenyon LPN - 05/05/2023 6:25 PM EST Spoke with pt. She stated someone from [email or web address] out [facility] called and took her order for her Depends. I explained the message we got from [employer] and that we would try to get a hold of them to see what was cancelled. To make sure the [employer] is a legit business * Telephone Encounter - David Umanzor MD - 05/05/2023 5:39 PM EST Please notify pt (to prevent confusion) that we sent the order but [employer] [facility] cancelled it because they could not reach her. She has GHP Gold, could we get her some assistance with a social media assistant or case management assistant? She does not have good support at home and is blind. * Telephone Encounter - Rayo Mccray OSA - 05/03/2023 2:53 PM EST [employer] calling to let provider know that this ordered was cancelled due to supplier unableto reach the pt after 3 attempts. Please advise. * Telephone Encounter - Nallely Tompkins LPN - 04/01/2023 3:04 PM EST Submitted through [employer] * Telephone Encounter - David Umanzor MD - 04/01/2023 2:37 PM EST DME signed - please get to pt or see if she needs faxed somewhere * Telephone Encounter - David Umanzor MD - 03/30/2023 1:49 PM EST I don't see that I have ever sent. How many is she requesting? [place] many does she use per day? * Telephone Encounter - Tatyana Delaney RN - 03/30/2023 12:15 PM EST Pt in need of XL depends. Can you please order and send to [facility] ? Thanks! documented in this encounter Plan of Treatment Upcoming Encounters Date Type Department Care Team (Late st Contact Info) Description 05/12/2023 2:00 PM EST Office Visit Nephrology, [facility] [address] [facility] [place] [address] Luz Tobias MD [address] [facility] [place] [address] 05/26/2023 2:00 PM EST Laboratory Laboratory, [place] [address] [place] [phone] [place] [address] [place] [address] 05/27/2023 4:00 PM EST [facility] [address] [place] [address] Tatyana Delaney, RN [address] [place] [address] 05/31/2023 1:30 PM EST Imaging Radiology [address], [place] [address] [place] [address] 06/06/2023 2:40 PM EST Pharmacy Pharmacy, [place] [address] [place] [address] [place], [facility] [address] [place] [address] 06/07/2023 1:20 PM EST Office Visit [facility] Disorders Ctr [facility] [address] [place] [address] Vira Byrd DO [address] [place] [address] 07/27/2023 3:00 PM EDT [facility] [address] [facility] [place] [address] Wood Wong PA-C [address] [place] [address] 08/01/2023 2:00 PM EDT Laboratory Laboratory, [place] [address] [place] [phone] [facility] [address] [place] [address] 08/02/2023 2:00 PM EDT Office Visit Rheumatology [place] [address] [facility] [place] [address] Eliot Castelan CRNP [facility] [place] [address] 08/08/2023 12:30 PM EDT Office Visit Hematology/Oncology [facility] [place] [address] [place] [address] Miguel A Alcantar MD [address] [place] [address] 10/11/2023 5:40 PM EDT Office Visit [facility] [address] [place] [address] David Umanzor MD [address] [place] [address] 03/07/2024 1:00 PM EST Office Visit Cardiology, [facility] [address] [facility] [place] [address] Manolo Millan MD [address] [place] [facility] [address] Scheduled Procedures Name Priority Associated Diagnoses [...] Additional history exists CKD PHOS USE SMARTSET 56079 12/02/202311/10, 08/06/2022, 08/21/2021, Additional history exists CKD HGB USE SMARTSET 10999 03/25/202403/25, 03/25/2023, 02/28/2023, Additional history exists TSH [...] this encounter Medical Devices Implanted Type Area Chain Tender Device Identifier Shelf Expiration Date Model / Serial / Lot [facility] Medical Embosphere Micrspheres Implanted:Qty: 2 on 11/02/2019 by Ihs Grove MD at [facility] Right: Abdomen [employer] 05/11/2022 S220GH / [id number] / [id number] Syr Pf 2ml Embospheres 100-300 - [id number] Implanted:Qty: 1 on 11/14/2020 at [facility] [employer] [id number] 08/22/2023 S220GH / / [id number] Envelope Antibacterial Tyrx - [id number] Implanted:Qty: 1 on 12/29/2021 by Fatoumata Roland DO at OR [facility] [employer] : CRM [id number] 09/23/2022 CMR [id number] / / [id number] Stent Synergy Xd Mr 3.21m60yk - [id number] Implanted:Qty: 1 on 03/22/2022 by [place]atalina Pearce [place] [facility] [employer] [id number] 07/17/2023 [id number] / / [id number] Valve Berhane 3 Ultra 26mm - [id number] Implanted:Qty: 1 on 12/09/2022 by Manolo Millan MD [place] [facility] [employer] [id number] 12/04/2023 [id number] / / documented as of this encounter Visit Diagnoses Diagnosis Urinary incontinence, unspecified type- Primary documented in this encounter Advance Directives [...] the patient have Health Care Power of Stock Preparation Operator? No Care Teams Local Intermodal Truck Driver Relationship Specialty Start Date End Date David Umanzor MD [address] [place] [address] PCP - General 02/25/09 documented as of this encounter
--- OUTSIDE RECORDS SUMMARY | 2023-05-28 21:28 | External Medical Summary | Summary of Care ---
Author Name Unknown Organization [facility] Address [address] [facility] [place] [address] Phone [phone] Care Team Providers Care Industrial Arts Teacher Name Role Phone David Umanzor MD Primary Care Provider [phone]- [phone] Reason for Visit * Reason Onset Date Comments [facility]: Maintenance 03/30/2023 Encounter Details Date Type Department Care Team (Late st Contact Info) Description 03/30/2023 Telephone [facility], [facility] [address] [place] [address] Tatyana Delaney RN [address] [place] [address] [facility]: Maintenance Allergies Active Allergy [...] 03/21/20 12 Active Blood Glucose Monitoring Suppl ([employer] AUTOCODE BLOOD GLUCOSE) w/Device KITIndications:DM type 2 causing neurological disease, not at goal ([facility]) Test blood sugar 4 times daily Dx: E11.9 1 Kit 0 03/19/20 19 Active PRODIGY LANCETS 28G MISCIndications:DM type 2, not at goal ([facility]) TEST BLOOD SUAGER 4 TIMES [...] hemoglobin A1c goal of less than 7.0% ([facility]),Type 2 diabetes mellitus with stage 3 chronic kidney disease, with long-term current use of insulin, unspecified whether stage 3a or 3b CKD ([facility]),DM type 2 causing neurological disease, not at goal ([facility]) TEST BLOOD SUGAR UP TO [...] daily 400 Each 3 08/07/19 Active Creon 81650-78597 UNIT Oral Capsule Delayed Release Particles (Pancrelipase (Kuq-Wcex-Xhdo))Indicat ions:Pancreatic insufficiency TAKE ONE CAPSULE BY MOUTH [...] TabletIndications:HFrEF (heart failure with reduced ejection fraction) ([facility]),Coronary artery disease involving karluk coronary artery of karluk heart without angina pectoris,Nonrheumatic aortic valve stenosis,Cardiac pacemaker in situ,Tachy-wilfrido syndrome ([facility]) Take 1 Tablet by mouth [...] coma, without long-term current use of insulin ([facility]) Inject 30 units daily 45 [...] combined systolic and diastolic congestive heart failure ([facility]) Take 1 Capsule by mouth [...] Tab 3 03/09/20 10 024 Discontinued Nystatin 879609 UNIT/GM External Powder (Nystop) APPLY TO AFFECTED AREAS UNDER THE BREASTS THREE TIMES PER DAY NEEDED 30 g 1 09/14/19 23 024 Discontinued LORazepam 0.5 MG Oral Tablet (Ativan)Indications:Anx iety state TAKE 1 TABLET 3 TIMES A DAY NEEDED FOR ANXIETY 40 Tablet 1 02/24/20 23 024 Discontinued(R efill) HYDROcodone-Acetaminoph en 5-325 MG Oral TabletIndications:Ather osclerosis of karluk artery of left lower extremity with intermittent [...] to excess calories 0 08/09/2022 Atherosclerosis of karluk ar jania of left lower extremity with intermittent claudication 08/09/2022 Coronary artery disease invo lving karluk coronary artery of karl[place] heart with angina pectoris 03/22/2022 Last Assessment [...] Diabetic retinopathy Rheumatoid arthritis of [facility] sites without rheumatoid factor 01/26/2016 Last Assessment [...] [facility] DETECT Study: Project # [id number], Recordings Librarian: Manny Santacruz, PhD. SUMMARY: Goal: Establish test [...] contact study staff at ; after hours Recordings Librarian via the [facility] flatbed press operator . Please contact study team before resolving/deleting from patients problem list. Study phone number: [phone]. Diagnosis changed due to Research Module. Go to Snapshot for study details. Encounter for examination fo r normal comparison and control in clinical research program 11/08/2018 12/10/2021 Overview: DO NOT DELETE - [facility] Study: Project # [id number], Recordings Librarian: Kevin Pearce, MS, MPH. SUMMARY: Goal: Establish [...] contact study staff at ; after hours Recordings Librarian via the [facility] flatbed press operator . - Please contact study team before resolving/deleting from patients problem list. Study phone number: [phone]. Diagnosis changed due to Research Module. Go [...] Spoke with pt. She stated someone from [email or web address] out [facility] called and took her order for her Depends. I explained the message we got from [employer] and that we would try to get a hold of them to see what was cancelled. To make sure the [employer] is a legit business * Telephone Encounter - David Umanzor MD - 05/05/2023 5:39 PM EST Please notify pt (to prevent confusion) that we sent the order but [facility] because they could not reach her. She has GHP Gold, could we get her some assistance with a social services assistant or case management director? She does not have good support at home and is blind. * Telephone Encounter - Rayo Mccray OSA - 05/03/2023 2:53 PM EST [employer] calling to let provider know that this ordered was cancelled due to supplier unableto reach the pt after 3 attempts. Please advise. * Telephone Encounter - Nallely Tompkins LPN - 04/01/2023 3:04 PM EST Submitted through [employer] * Telephone Encounter - David Umanzor MD [...] 05/12/2023 2:00 PM EST Office Visit Nephrology, [facility] [address] [facility] [place] [address] Luz Tobias MD [address] [facility] [place] [address] 05/26/2023 2:00 PM EST Laboratory Laboratory, [place] [address] [place] [address] [place] [address] [place] [address] 05/27/2023 4:00 PM EST [facility] [address] [place] [address] Tatyana Delaney, RN [address] [place] [address] 05/31/2023 1:30 PM EST Imaging Radiology [address], [place] [address] [place] [address] 06/06/2023 2:40 PM EST Pharmacy Pharmacy, [place] [address] [place] [address] [place], [facility] [address] [place] [address] 06/07/2023 1:20 PM EST Office Visit [facility] Ctr [facility] [address] [place] [address] Vira Byrd DO [address] [place] [address] 07/27/2023 3:00 PM EDT [facility] [address] [facility] [place] [address] Wood Wong PA-C [address] [place] [address] 08/01/2023 2:00 PM EDT Laboratory Laboratory, [place] [address] [place] [address] [facility] [address] [place] [address] 08/02/2023 2:00 PM EDT Office Visit Rheumatology [place] [address] [facility] [place] [address] Eliot Castelan CRNP [facility] [place] [address] 08/08/2023 12:30 PM EDT Office Visit Hematology/Oncology [facility] [place] [address] [place] [address] Miguel A Alcantar MD [address] [place] [address] 10/11/2023 5:40 PM EDT Office Visit [facility] [address] [place] [address] David Umanzor MD [address] [place] [address] 03/07/2024 1:00 PM EST Office Visit Cardiology, [facility] [address] [facility] [place] [address] Manolo Millan MD [address] [place] [facility] [place] [address] Scheduled Procedures Name Priority Associated Diagnoses [...] Additional history exists CKD PHOS USE SMARTSET 56151 12/02/202311/10, 08/06/2022, 08/21/2021, Additional history exists CKD HGB USE SMARTSET 54232 03/25/202403/25, 03/25/2023, 02/28/2023, Additional history exists TSH [...] this encounter Medical Devices Implanted Type Area Freelance Recruiter Device Identifier Shelf Expiration Date Model / Serial / Lot [facility] Medical Embosphere Micrspheres Implanted:Qty: 2 on 11/02/2019 by Ish Grove MD at [facility] Right: Abdomen [employer] 05/11/2022 S220GH / S220GH / [id number] Syr Pf 2ml Embospheres 100-300 - [id number] Implanted:Qty: 1 on 11/14/2020 at [facility] [employer] [id number] 08/22/2023 S220GH / / [id number] Envelope Antibacterial Tyrx - [id number] Implanted:Qty: 1 on 12/29/2021 by Fatoumata Roland DO at OR [facility] [employer] : CRM [id number] 09/23/2022 CMR M6122 / / [id number] Stent Synergy Xd Mr 3.11e48ci - [id number] Implanted:Qty: 1 on 03/22/2022 by Katalina Pearce MD at [facility] [employer] [id number] 07/17/2023 [id number] / / [id number] Valve Berhane 3 Ultra 26mm - [id number] Implanted:Qty: 1 on 12/09/2022 by Manolo Millan MD at [facility] [employer] [id number] 12/04/2023 [id number] / / documented as of this encounter [...] the patient have Health Care Power of Head Baggage Porter? No Care Teams Industrial Arts Teacher Relationship Specialty Start Date End Date David Umanzor MD [address] [place] [address] PCP - General 02/25/09 documented as of this encounter
--- OUTSIDE RECORDS SUMMARY | 2023-05-28 21:28 | External Medical Summary | Summary of Care ---
Author Name Unknown Organization [facility] Address [address] [facility] [place] [address] Phone [phone] Care Team Providers Care Accounting Coordinator Name Role Phone David Umanzor MD Primary Care Provider [phone]- [phone] Reason for Visit * Reason Comments [facility]: Maintenance Encounter Details Date Type Department Care Team (Late st Contact Info) Description 03/30/2023 1:30 PM EST [facility] Visit [facility], [facility] [address] [facility] [place] [address] Tatyana Delaney, RN [address] [facility] [place] [address] Allergies Active Allergy Reactions Criticality Noted Date [...] 400 Each 3 08/07/19 23 Active Creon 85505-33923 UNIT Oral Capsule Delayed Release Particles (Pancrelipase (Gpi-Zaex-Odma))Indicat ions:Pancreatic insufficiency TAKE ONE CAPSULE BY MOUTH [...] fraction) ([facility]),Coronary artery disease involving [place] coronary artery of [place] heart without angina pectoris,Nonrheumatic aortic valve stenosis,Cardiac pacemaker in situ,Tachy-wilfrido syndrome ([facility]) Take 1 Tablet by mouth [...] combined systolic and diastolic congestive heart failure ([facility]) Take 1 Capsule by mouth [...] at a time.. 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 90 Tablet 3 03/30/20 Active B-12 1500 MCG PO TBCRIndications:Pernici ous anemia one pill each day 90 Tab 3 03/09/20 10 024 Discontinued Nystatin 408166 UNIT/GM External Powder (Nystop) APPLY TO AFFECTED AREAS UNDER THE BREASTS THREE TIMES PER DAY NEEDED 30 g 1 09/14/19 23 024 Discontinued LORazepam 0.5 MG Oral Tablet (Ativan)Indications:Anx iety state TAKE 1 TABLET 3 TIMES A DAY NEEDED FOR ANXIETY 40 Tablet 1 02/24/20 23 024 Discontinued(R efill) HYDROcodone-Acetaminoph en 5-325 MG Oral TabletIndications:Ather osclerosis of [place] artery of left lower extremity with intermittent claudication (HCC),Pain of left lower extremity Take 1 Tablet by mouth every 6 hours as needed for Pain, Mild. 30 Tablet 0 03/11/20 23 023 Discontinued(R efill) documented as of this encounter [...] to excess calories 0 08/09/2022 Atherosclerosis of [place] ar jania of left lower extremity with intermittent claudication 08/09/2022 Coronary artery disease invo lving [place] coronary artery of [place] heart with angina pectoris 03/22/2022 Last [...] [facility] DETECT Study: Project # [id number], Debt Recovery Officer: Manny Santacruz, PhD. SUMMARY: Goal: Establish test [...] contact study staff at ; after hours Debt Recovery Officer via the [facility] honing machine set up operator . Please contact study team before resolving/deleting from patients problem list. Study phone number: [phone]. Diagnosis changed due to Research Module. Go to Snapshot for study details. Encounter for examination fo r normal comparison and control in clinical research program 11/08/2018 12/10/2021 Overview: DO NOT DELETE [facility] Study: Project # [id number], Debt Recovery Officer: Kevin Pearce, MS, MPH. SUMMARY: Goal: Establish [...] contact study staff at ; after hours Debt Recovery Officer via the [facility] honing machine set up operator . - Please contact study team before resolving/deleting from patients problem list. Study phone number: [phone]. Diagnosis changed due to Research Module. Go [...] 2 causing renal disease, not at goal 9 02/06/2009 Overview: Per Diabetes Taxonomy. Type 2 [...] Sign Reading Time Taken Comments Blood Pressure 100/64 03/30/2023 11:26 AM EST Pulse 60 03/30/2023 11:26 AM EST Temperature 36.2 C (97.1 F) 03/30/2023 11:[address] Respiratory Rate 18 03/30/2023 11:26 AM EST Oxygen Saturation 99% 03/30/2023 11:26 AM EST Inhaled Oxygen Concentration - - Weight - - Height - - Body Mass Index - - documented in [...] Progress Notes * Tatyana Delaney, RN - 03/30/2023 9:04 AM EST Images from the original note were not included. [facility] Heat Set Operator Visit Date: 03/30/2023 Time: 9:05 AM Name: Orquidea Valencia : 1950 Current Concerns: Pt seen for return RNCM visit/wound check Has 3 total areas on RLE and also a 2cm x 0.8cm open area on right buttock Pt is going to have DIL get calmoseptine to apply to buttock wound has been changing dressing for RLE distal wound Now needs wound care to two areas proximal to that wound Areas cleansed with wound wash and applied calcium alginate with silver to open areas, covered withdry gauze and kerlix instructed on wound care. TE sent to PCP to get new referral for HH for wound management - has had [facility] in past Physical Exam: BP 100/64 | Pulse 60 | Temp 36.2 C (97.1 F) | Resp 18 | SpO2 99% Pain 0 Problems/Symptoms: Medication Reconciliation: (See medication list) Does patient take medications as ordered: Yes Patient Well Being: PHQ2/9: No questionnaires available. No change in living situation Denies falls [facility]-10 Completed this Visit: No. Routine visit and No falls since last visit Advanced Care Planning: No documentation, acp on file. Reinforcement/Education: Reviewed HF symptom monitoring: -Weigh self daily [...] if at night -increased fatigue or vertigo Educated on home safety: Create a fall [...] exercises that will be right for you. Reinforced safety education and fall prevention. and Reinforced medication regimen. Timing., Dosing., and Purspose. Treatment/Plan: Continue meds as prescribed Keep all appts as scheduled Fall precautions - use of walker or w/c Dexcom for bsg monitoring Gets pill packs from [employer] for daily wt monitoring Baseline wt around 224 - 226 lbs Aquacel ag and dsd to RLE open areas every other day Calmoseptine to right buttock PU CALL TO [facility] TO CHECK ON [facility]US [facility] Interventions Provided: Home Intervention: Wound Care and Other; eval Reinforced current Plan of Care, including self-management and medication regimen Patient's 'Red Flags': Increased SOB Increased weakness Increased edema or open areas Patient Needs to Remember: Call [facility] at with any new or worsening health concerns or problems, red flag symptoms. Referrals Needed: Home Health - wound management Follow Up: Is there cellular connectivity/connectivity in the home? Yes Does the patient have internet in the home? Yes Patient encouraged to call the intake phone number for all urgent but not emergent issues. Is the patient new to [facility] within the last 30 days? No, Assess appropriateness for upcoming telehealth visits. Cancel telehealth visits & schedule home visit with care team automobile assembler(s)as indicated. Provider is in agreement with Plan of Care: Yes Scheduled to follow up with patient in one week. Tatyana Delaney RN 03/30/2023 9:05 AM documented in this encounter Plan of Treatment Upcoming Encounters Date Type Department Care Team (Late st Contact Info) Description 05/12/2023 2:00 PM EST Office Visit Nephrology, [facility] [address] [facility] [place] [address] Luz Tobias MD [address] [facility] [place] [address] 05/26/2023 2:00 PM EST Laboratory Laboratory, [place] [address] [place] [address] [facility] [address] [place] [address] 05/27/2023 4:00 PM EST Home Visit [facility] 132 [facility] [place] [address] Tatyana Delaney RN 132 [facility] [place] [address] 05/31/2023 1:30 PM EST Imaging Radiology [address], [place] 132 [facility] [place] [address] 06/06/2023 2:40 PM EST Pharmacy Pharmacy, [place] [address] [place] [address] Abdelrahman [facility] [address] [place] [facility] [place] [address] 06/07/2023 1:20 PM EST Office Visit Sleep Disorders Ctr [facility] [address] [place] [phone] Vira Byrd DO [address] [place] [address] 07/27/2023 3:00 PM EDT Office Visit Cardiology, [facility] [address] [place] [address] Wood Wong PA-C [address] [place] [address] 08/01/2023 2:00 PM EDT Laboratory Laboratory, [place] [address] [place] [facility] [place] [phone] [facility] [address] [place] [address] 08/02/2023 2:00 PM EDT Office Visit Rheumatology [address] [place] [address] Eliot Castelan CRNP [address] [place] [address] [place] [address] 08/08/2023 12:30 PM EDT Office Visit Hematology/Oncology [facility] Mar[facility] [place] [address] [place] [address] Miguel A Alcantar MD [address] [place] [address] 10/11/2023 5:40 PM EDT Office Visit [facility] Practice, [place] [address] [facility] [phone] David Umanzor MD [address] [place] [address] 03/07/2024 1:00 PM EST Office Visit Cardiology, [facility] [address] [facility] [place] [address] Manolo Millan MD [address] [place] [address] Scheduled Procedures Name Priority Associated [...] 05/13/2021, Additional history exists GFR 10/24/2023 04/25/2023, 07/2023, 03/24/2023, Additional history exists HbA1c 10/24/2023 04/25/2023, 07/11, 04/13/2022, Additional history exists CKD PHOS USE SMARTSET 90339 12/02/202311/10, 08/06/2022, 08/21/2021, Additional history exists CKD HGB USE SMARTSET 06247 03/25/202403/25, 03/25/2023, 02/28/2023, Additional history exists TSH [...] encounter Medical Devices Implanted Type Area Clinical Trial Head Device Identifier Shelf Expiration Date Model / Serial / Lot [employer] Medical Embosphere Micrspheres Implanted:Qty: 2 on 11/02/2019 by Ish Grove MD at [facility] Right: Abdomen [employer] 05/11/2022 S220GH / [id number] / [id number] Syr Pf 2ml Embospheres 100-300 - [id number] Implanted:Qty: 1 on 11/14/2020 at [facility] [employer] [id number] 08/22/2023 S220GH / / [id number] Envelope Antibacterial Tyrx - [id number] Implanted:Qty: 1 on 12/29/2021 by Fatoumata Roland DO at OR [facility] [employer] : CRM [id number] 09/23/2022 CMR [id number] / / [id number] Stent Synergy Xd Mr 3.60h02vo - [id number] Implanted:Qty: 1 on 03/22/2022 by Katalina Pearce MD at [facility] [employer] [id number] 07/17/2023 [id number] / / [id number] Valve Berhane 3 Ultra 26mm - [id number] Implanted:Qty: 1 on 12/09/2022 by Manolo Millan MD at [facility] [employer] [id number] 12/04/2023 [id number] / / documented as of this encounter [...] the patient have Health Care Power of Claim Clerk? No Care Teams Accounting Coordinator Relationship Specialty Start Date End Date David Umanzor MD [address] [place] [address] PCP - General 02/25/09 documented as of this encounter
--- OUTSIDE RECORDS SUMMARY | 2023-05-28 21:28 | External Medical Summary | Summary of Care ---
Author Name Unknown Organization [facility] Address [address] [place] [address] Phone [phone] Care Team Providers Care English Adjunct Faculty Name Role Phone David Umanzor MD Primary Care Provider +1- [phone] Reason for Visit * Reason Onset Date Comments Advice 05/02/2023 Encounter Details Date Type Department Care Team (Late st Contact Info) Description 05/02/2023 Telephone [facility] [address] [place] [address] David Umanzor MD [address] [place] [address] Advice Allergies Active Allergy Reactions Criticality Noted Date [...] 1 2 Active Blood Glucose Monitoring Suppl (Stonestreet One AUTOCODE BLOOD GLUCOSE) w/Device KITIndications:DM type 2 causing neurological disease, not at goal ([facility]) Test blood sugar 4 times daily Dx: E11.9 1 Kit 0 9 Active PRODIGY LANCETS 28G MISCIndications:DM type 2, not at goal ([facility]) TEST BLOOD SUAGER 4 TIMES A [...] A1c goal of less than 7.0% ([facility]),Type 2 diabetes mellitus with stage 3 chronic kidney disease, with long-term current use of insulin, unspecified whether stage 3a or 3b CKD ([facility]),DM type 2 causing neurological disease, not at goal ([facility]) TEST BLOOD SUGAR UP TO FOUR [...] without long-term current use of insulin ([facility]) Use to inject insulin 4 times daily 400 Each 3 3 Active Creon 50258-40944 UNIT Oral Capsule Delayed Release Particles (Pancrelipase (Gap-Gflr-Uaav))Indicati ons:Pancreatic insufficiency TAKE ONE CAPSULE BY MOUTH [...] without long-term current use of insulin ([facility]) Inject 10 units with breakfast, 4 units with lunch, and 10 units with PM meal. Inject 4 units if BG is >200. 30 mL 5 3 Active Acetaminophen 500 MG Oral TabletIndications:HFrEF (heart failure with reduced ejection fraction) ([facility]),Coronary artery disease involving the [place] coronary artery of the [place] heart without angina pectoris,Nonrheumatic aortic valve stenosis,Cardiac pacemaker in situ,Tachy-wilfrido syndrome ([facility]) Take 1 Tablet by mouth at [...] without long-term current use of insulin ([facility]) Inject 30 units daily 45 mL [...] combined systolic and diastolic congestive heart failure ([facility]) Take 1 Capsule by mouth in [...] n 5-325 MG Oral TabletIndications:Athero sclerosis of the [place] artery of left lower extremity with intermittent claudication (HCC),Pain of left lower extremity Take 1 Tablet by mouth every 6 hours as needed for Pain, Mild. 45 Tablet 0 4 Active LORazepam 0.5 MG Oral Tablet (Ativan)Indications:Anxi ety state TAKE 1 TABLET 3 TIMES A DAY NEEDED FOR ANXIETY 40 Tablet 1 4 Active Nystatin 955438 UNIT/GM External Powder (Nyamyc) APPLY TO AFFECTED [...] to excess calories 0 08/09/2022 Atherosclerosis of [place] ar jania of left lower extremity with intermittent claudication 08/09/2022 Coronary artery disease invo lving the [place] coronary artery of [place] heart with angina pectoris 03/22/2022 Last Assessment [...] DELETE [facility] DETECT Study: Project # [id number], Card Hanger: Manny Santacruz, PhD. SUMMARY: Goal: Establish test [...] contact study staff at ; after hours Card Hanger via the [facility] electric sealing machine operator . Please contact study team before resolving/deleting from patients problem list. Study phone number: [phone]. Diagnosis changed due to Research Module. Go to Snapshot for study details. Encounter for examination fo r normal comparison and control in clinical research program 11/08/2018 12/10/2021 Overview: DO NOT DELETE - [facility] DETECT Study: Project # [id number], Card Hanger: Kevin Pearce, MS, MPH. SUMMARY: Goal: Establish [...] contact study staff at ; after hours Card Hanger via the [facility] electric sealing machine operator . - Please contact study team before resolving/deleting from patients problem list. Study phone number: [phone]. Diagnosis changed due to Research Module. Go [...] Seasonal Influenza Virus Vac cine, Unspecified Formulation 01/27/2021,12/25/2019,02/08/2019,2 07/2017,01/11/2017,03/17/2016,02/13/20 15,12/27/2013,01/31/2013,12/22/2011,0 12/28/2010,01/08/2010,01/18/2008 Seasonal Influenza, PF, 6 [...] Telephone Encounter - Krystin Munroe RN - 05/03/2023 9:11 AM EST RX pended for signature. * Telephone Encounter - Tatyana Delaney RN - 05/02/2023 5:42 PM EST Patient notified of recommendations. She reports she has the Torsemide on hand for the extra doses, but she is in need of Metolazone. Can you please send a script of Metolazone to [facility] in [place] and she will have a family member pick it up to start tomorrow. Thank you! * Telephone Encounter - Luz Tobias MD - 05/02/2023 4:36 PM EST Noted 04/25/23 labs reviewed Recommend -metolazone 2.5 mg daily x 5 days -add second torsemide dose 50 mg at least 4 hrs after first dose x 3 days -no chnge to AM torse dose or to aldactone -1.5 L fluid limit and less than 2 g daily sodium diet -daily standing weights as if for heart failure patient and log them Please insure she has follow-up with me as per last office visit note * Telephone Encounter - Tatyana Delaney RN - 05/02/2023 3:44 PM EST Spoke with pt. She reports HH nurse was there earlier today and told her she has +3 edema and a blood blister on the back of her right leg (inside the right knee). BP was 108/60 today. She is taking all meds as prescribed Currently on Doxycycline for s/s of wound infection. She is taking 150mg of Torsemide daily and 25mg Spironolactone daily Weight today was 230 lbs and 231 lbs yesterday. She has gone up over 5 lbs since last week. She denies any increased SOB but concerned about her retaining fluid. Routing to Nephrology and Cardiology - Dr Tobias, you had initiated DTP in the past - would you recommend her starting a DTP at this time? Please advise. Thank you! * Telephone Encounter - Naty León OSA - 05/02/2023 3:01 PM EST Patient is very concerned and is not sure what to do about the fluid retention and swelling, home nurse is not coming back until .Please reach out to patient to assist. * Telephone Encounter - Yumiko Simon OSA - 05/02/2023 11:18 AM EST Pt calling she has edema +3 up to her thigh and has a blood blister on her right inner thigh. Vitals are 98.2 95 98% 108/60. documented in this encounter Plan of Treatment Upcoming Encounters Date Type Department Care Team (Late st Contact Info) Description 05/12/2023 2:00 PM EST Office Visit Nephrology, [place] [address] [address] Luz Tobias MD [address] [place] [address] [address] 05/26/2023 2:00 PM EST Laboratory Laboratory, [address] [address] [facility] [address] [place] [facility] [place] [address] 05/27/2023 4:00 PM EST [facility], [facility] [address] [facility] [place] [address] Tatyana Delaney, RN [address] [place] [address] 05/31/2023 1:30 PM EST [facility] [address] [facility] [place] [address] 06/06/2023 2:40 PM EST Pharmacy Pharmacy, [place] [address] [facility] [address] [facility] [address] [place] [facility] [address] 06/07/2023 1:20 PM EST Office Visit [facility] C[facility] [phone] Vira Byrd DO [address] [facility] [place] [address] 07/27/2023 3:00 PM EDT Office Visit Cardiology, [facility] [address] [facility] [place] [address] Wood Wong PAGina [address] [facility] [address] 08/01/2023 2:00 PM EDT Laboratory Laboratory, [place] [address] [facility] [phone] [facility] [address] [facility], [place] [address] 08/02/2023 2:00 PM EDT Office Visit Rheumatology [facility] [address] [facility] [place], [place] [address] Eliot Castelan CRNP [address] [facility] [place], [place] [address] 08/08/2023 12:30 PM EDT Office Visit Hematology/Oncology [facility] [address] [facility] [place], [place] [address] Miguel A Alcantar MD [address] [facility] [place], [place] [address] 10/11/2023 5:40 PM EDT Office Visit [facility] [address] [place] [address] David Umanzor MD [address] [place] [address] 03/07/2024 1:00 PM EST Office Visit Cardiology, [facility] [address] [place] [address] Manolo Millan MD [address] [place] [address] Scheduled Procedures Name Priority Associated Diagnoses Date/Ti ma ECHOCARDIOGRAPHY, TRANSESOPH AGEAL; INCLUDING PROBE PLACEMENT, IMAGE [...] 12/15/2018, 12/15/2018, Additional history exists COVID-19 Vaccine (5 - 2023-24 season) 2022 06/08/2021, 12/17/2020, 06/23/2020, Additional history exists Diabetic Eye Exam 05/27/2023 05/27/2022, , 05/27/2022, Additional history exists Mammogram 07/28/2023 07/27/2022, 07/10, 01/09/2019, Additional history exists Albumin/Creatinine Ratio 09/08/2023 023, 08/06/2022, 05/13/2021, Additional history exists GFR 10/24/2023 04/25/2023, 01/0 07/2023, 03/24/2023, Additional history exists HbA1c 10/24/2023 04/25/2023, 07/11, 04/13/2022, Additional history exists CKD PHOS USE SMARTSET 82447 12/02/202311/10, 08/06/2022, 08/21/2021, Additional history exists CKD HGB USE SMARTSET 93527 03/25/202403/25, 03/25/2023, 02/28/2023, Additional history exists TSH [...] this encounter Medical Devices Implanted Type Area Perl Developer Device Identifier Shelf Expiration Date Model / Serial / Lot [facility] Medical Embosphere Micrspheres Implanted:Qty: 2 on 11/02/2019 by Ish Grove MD at [facility] Right: Abdomen [employer] 05/11/2022 S220GH / S220GH / [id number] Syr Pf 2ml Embospheres 100-300 - [id number] Implanted:Qty: 1 on 11/14/2020 at [facility] [employer] [id number] 08/22/2023 S220GH / / [id number] Envelope Antibacterial Tyrx - [id number] Implanted:Qty: 1 on 12/29/2021 by Fatoumata Roland DO at OR [facility] [employer] : CRM [id number] 09/23/2022 CMR M6122 / / [id number] Stent Synergy Xd Mr 3.61z64tm - [id number] Implanted:Qty: 1 on 03/22/2022 by Katalina Pearce MD at [facility] [employer] [id number] 07/17/2023 [id number] / / [id number] Valve Berhane 3 Ultra 26mm - [id number] Implanted:Qty: 1 on 12/09/2022 by Manolo Millan MD at [facility] [employer] [id number] 12/04/2023 [id number] / / documented as of this encounter [...] the patient have Health Care Power of Bisque Grader? No Care Teams English Adjunct Faculty Relationship Specialty Start Date End Date David Umanzor MD [address] [place] [address] PCP - General 02/25/09 documented as of this encounter
--- OUTSIDE RECORDS SUMMARY | 2023-05-28 21:28 | External Medical Summary | Summary of Care ---
Author Name Unknown Organization [facility] Address [address] [facility] [place] [address] Phone [phone] Care Team Providers Care Mixer Diamond Powder Name Role Phone David Umanzor MD Primary Care Provider [phone]- [phone] Reason for Visit * Reason Onset Date Comments [facility]: Maintenance 03/30/2023 Encounter Details Date Type Department Care Team (Late st Contact Info) Description 03/30/2023 Telephone [facility], [facility] [address] [employer] [place] [address] Tatyana Delaney RN [address] [place] [address] [facility]: Maintenance Allergies Active Allergy Reactions Criticality Noted Date Comments Bactrim 02/09/2010 Cephalosporins Anaphylaxis,Edema face/lips/tongue High 04/11/2009 Anaphylaxis to cefaclor, facial swelling to cephalexin. Ciprofloxacin Low 03/30/2021 Other reaction(s): Nausea Butorphanol Tartrate 02/09/2010 Heart racing Sulfa Antibiotics Hives High 05/22/2002 Other reaction(s): Hives Trimethoprim 04/15/2022 Other reaction(s): Hives documented as of this encounter (statuses as of 05/05/2023) Medications Medication Sig Dispensed Refills Start Date [...] 03/21/20 12 Active Blood Glucose Monitoring Suppl (DashwireIGY AUTOCODE BLOOD GLUCOSE) w/Device KITIndications:DM type 2 causing neurological disease, not at goal ([facility]) Test blood sugar 4 times daily Dx: E11.9 1 Kit 0 03/19/20 19 Active PRODIGY LANCETS 28G MISCIndications:DM type 2, not at goal ([facility]) TEST BLOOD SUAGER 4 TIMES A [...] hemoglobin A1c goal of less than 7.0% ([facility]),Type 2 diabetes mellitus with stage 3 chronic kidney disease, with long-term current use of insulin, unspecified whether stage 3a or 3b CKD ([facility]),DM type 2 causing neurological disease, not at goal ([facility]) TEST BLOOD SUGAR UP TO FOUR [...] daily 400 Each 3 08/07/19 Active Creon 85459-35042 UNIT Oral Capsule Delayed Release Particles (Pancrelipase (Jao-Dmhh-Zfam))Indicat ions:Pancreatic insufficiency TAKE ONE CAPSULE BY MOUTH [...] TabletIndications:HFrEF (heart failure with reduced ejection fraction) ([facility]),Coronary artery disease involving [place] coronary artery of [place] heart without angina pectoris,Nonrheumatic aortic valve stenosis,Cardiac pacemaker in situ,Tachy-wilfrido syndrome ([facility]) Take 1 Tablet by mouth at [...] coma, without long-term current use of insulin ([facility]) Inject 30 units daily 45 mL 1 [...] combined systolic and diastolic congestive heart failure ([facility]) Take 1 Capsule by mouth in the [...] Tab 3 03/09/20 10 024 Discontinued Nystatin 141234 UNIT/GM External Powder (Nystop) APPLY TO AFFECTED AREAS UNDER THE BREASTS THREE TIMES PER DAY NEEDED 30 g 1 09/14/19 23 024 Discontinued LORazepam 0.5 MG Oral Tablet (Ativan)Indications:Anx iety state TAKE 1 TABLET 3 TIMES A DAY NEEDED FOR ANXIETY 40 Tablet 1 02/24/20 23 024 Discontinued(R efill) HYDROcodone-Acetaminoph en 5-325 MG Oral TabletIndications:Ather osclerosis of [place] artery of left lower extremity with intermittent claudication (HCC),Pain of left lower extremity Take 1 Tablet by mouth every 6 hours as needed for Pain, Mild. 45 Tablet 0 03/30/20 23 024 Discontinued(R efill) documented as of this encounter (statuses as of 05/05/2023) Active Problems Problem Noted Date Diagnosed Date [...] to excess calories 0 08/09/2022 Atherosclerosis of [place] ar jania of left lower extremity with intermittent claudication 08/09/2022 Coronary artery disease invo lving [place] coronary artery of [place] heart with angina pectoris 03/22/2022 Last Assessment [...] [facility] sites without rheumatoid factor 01/26/2016 Last Assessment [...] as of this encounter (statuses as of 05/05/2023) Resolved Problems Problem Noted Date Diagnosed Date [...] [facility] [place] DETECT Study: Project # [id number], Pharmacy Coordinator: Manny Santacruz, PhD. SUMMARY: Goal: Establish [...] contact study staff at ; after hours Pharmacy Coordinator via the [facility] eight arm operator . Please contact study team before resolving/deleting from patients problem list. Study phone number: [phone]. Diagnosis changed due to Research Module. Go to Snapshot for study details. Encounter for examination fo r normal comparison and control in clinical research program 11/08/2018 12/10/2021 Overview: DO NOT DELETE - [facility] Study: Project # [id number], Pharmacy Coordinator: Kevin Pearec, MS, MPH. SUMMARY: Goal: Establish test characteristics [...] contact study staff at ; after hours Pharmacy Coordinator via the [facility] eight arm operator . - Please contact study team before resolving/deleting from patients problem list. Study phone number: [phone]. Diagnosis changed due to Research Module. Go [...] as of this encounter (statuses as of 05/05/2023) Immunizations Name Administration Dates Next Due COVID-19 [...] Spoke with pt. She stated someone from [employer] [facility] called and took her order for her Depends. I explained the message we got from [employer] and that we would try to get a hold of them to see what was cancelled. To make sure the [employer] is a legit business * Telephone Encounter - David Umanzor MD - 05/05/2023 5:39 PM EST Please notify pt (to prevent confusion) that we sent the order but [facility] cancelled it because they could not reach her. She has [employer], could we get her some assistance with a manager social work or renal case manager? She does not have good support at home and is blind. * Telephone Encounter - Rayo Mccray OSA - 05/03/2023 2:53 PM EST [employer] calling to let provider know that this ordered was cancelled due to supplier unableto reach the pt after 3 attempts. Please advise. * Telephone Encounter - Nallely Tompkins LPN - 04/01/2023 3:04 PM EST Submitted through [employer] * Telephone Encounter - David Umanzor MD [...] 05/12/2023 2:00 PM EST Office Visit Nephrology, [facility] [address] [facility] [place] [address] Luz Tobias MD [address] [facility] [place] [address] 05/26/2023 2:00 PM EST Laboratory Laboratory, [place] [address] [place] [phone] [place] [address] [place] [address] 05/27/2023 4:00 PM EST [facility] Visit [facility] [address] [place] [address] Tatyana Delaney, RN [address] [place] [address] 05/31/2023 1:30 PM EST Imaging Radiology [address], [place] [address] [place] [address] 06/06/2023 2:40 PM EST Pharmacy Pharmacy, [place] [address] [place] [address] [place], [facility] [address] [place] [address] 06/07/2023 1:20 PM EST Office Visit Sleep Disorders Ctr [facility] [address] [place] [address] Vira Byrd DO [address] [place] [address] 07/27/2023 3:00 PM EDT [facility] [address] [facility] [place] [address] Wood Wong PA-C [address] [place] [address] 08/01/2023 2:00 PM EDT Laboratory Laboratory, [place] [address] [place] [phone] [facility] [address] [place] [address] 08/02/2023 2:00 PM EDT Office Visit Rheumatology [place] [id number] [facility] [place] [address] Eliot Castelan CRNP [facility] [place] [address] 08/08/2023 12:30 PM EDT Office [facility] [place] [address] [place] [address] Miguel A Alcantar MD [address] [place] [address] 10/11/2023 5:40 PM EDT Office Visit [facility] [address] [place] [address] David Umanzor MD [address] [place] [address] 03/07/2024 1:00 PM EST Office Visit Cardiology, [facility] [address] [facility] [place] [address] Manolo Millan MD [address] [facility] [place] [address] Scheduled Procedures Name Priority Associated Diagnoses [...] Additional history exists CKD PHOS USE SMARTSET 75357 12/02/202311/10, 08/06/2022, 08/21/2021, Additional history exists CKD HGB USE SMARTSET 44133 03/25/202403/25, 03/25/2023, 02/28/2023, Additional history exists TSH [...] this encounter Medical Devices Implanted Type Area Sea Kayaking Guide Device Identifier Shelf Expiration Date Model / Serial / Lot [facility] Medical Embosphere Micrspheres Implanted:Qty: 2 on 11/02/2019 by Ish Grove MD at [facility] Right: Abdomen [employer] 05/11/2022 S220GH / [id number] / [id number] Syr Pf 2ml Embospheres 100-300 - [id number] Implanted:Qty: 1 on 11/14/2020 at [facility] [employer] [id number] 08/22/2023 S220GH / / [id number] Envelope Antibacterial Tyrx - [id number] Implanted:Qty: 1 on 12/29/2021 by Fatoumata Roland DO at OR [facility] [employer] : CRM [id number] 09/23/2022 CMR [id number] / / [id number] Stent Synergy Xd Mr 3.83t03pk - [id number] Implanted:Qty: 1 on 03/22/2022 by Katalina Pearce MD at [facility] [employer] [id number] 07/17/2023 [id number] / / [id number] Valve Berhane 3 Ultra 26mm - [id number] Implanted:Qty: 1 on 12/09/2022 by Manolo Millan MD at [facility] [employer] [id number] 12/04/2023 [id number] / / documented as of this encounter [...] the patient have Health Care Power of Minute Clerk For Basic Traffic? No Care Teams Mixer Diamond Powder Relationship Specialty Start Date End Date David Umanzor MD [address] [place] [address] PCP - General 02/25/09 documented as of this encounter
--- OUTSIDE RECORDS SUMMARY | 2023-05-28 21:29 | External Medical Summary | Summary of Care ---
Author Name Unknown Organization [facility] Address [address] [facility] [place] [address] Phone [phone] Care Team Providers Care Director Of Quality Control Name Role Phone David Umanzor MD Primary Care Provider +1- [phone] Reason for Visit * Reason Onset Date Comments [facility]: Maintenance 05/04/2023 Encounter Details Date Type Department Care Team (Late st Contact Info) Description 05/04/2023 Telephone [facility], [facility] [address] [employer] [place] [address] Tatyana Delaney RN [address] [place] [address] [facility]: Maintenance Allergies Active Allergy Reactions Criticality Noted Date Comments Bactrim 02/09/2010 Cephalosporins Anaphylaxis,Edema face/lips/tongue High 04/11/2009 Anaphylaxis to cefaclor, facial swelling to cephalexin. Ciprofloxacin Low 03/30/2021 Other reaction(s): Nausea Butorphanol Tartrate 02/09/2010 Heart racing Sulfa Antibiotics Hives High 05/22/2002 Other reaction(s): Hives Trimethoprim 04/15/2022 Other reaction(s): Hives documented as of this encounter (statuses as of 05/04/2023) Medications Medication Sig Dispensed Refills Start Date [...] 1 2 Active Blood Glucose Monitoring Suppl ([employer] AUTOCODE BLOOD GLUCOSE) w/Device KITIndications:DM type 2 causing neurological disease, not at goal ([facility]) Test blood sugar 4 times daily Dx: E11.9 1 Kit 0 9 Active PRODIGY LANCETS 28G MISCIndications:DM type 2, not at goal ([facility]) TEST BLOOD SUAGER 4 TIMES [...] hemoglobin A1c goal of less than 7.0% ([facility]),Type 2 diabetes mellitus with stage 3 chronic kidney disease, with long-term current use of insulin, unspecified whether stage 3a or 3b CKD ([facility]),DM type 2 causing neurological disease, not at goal ([facility]) TEST BLOOD SUGAR UP TO [...] daily 400 Each 3 3 Active Creon 14835-96716 UNIT Oral Capsule Delayed Release Particles (Pancrelipase (Won-Gzwd-Hotb))Indicati ons:Pancreatic insufficiency TAKE ONE CAPSULE BY MOUTH [...] TabletIndications:HFrEF (heart failure with reduced ejection fraction) ([facility]),Coronary artery disease involving [place] coronary artery of [place] heart without angina pectoris,Nonrheumatic aortic valve stenosis,Cardiac pacemaker in situ,Tachy-wilfrido syndrome ([facility]) Take 1 Tablet by mouth [...] coma, without long-term current use of insulin ([facility]) Inject 30 units daily 45 [...] combined systolic and diastolic congestive heart failure ([facility]) Take 1 Capsule by mouth [...] n 5-325 MG Oral TabletIndications:Athero sclerosis of [place] artery of left lower extremity with intermittent claudication (HCC),Pain of left lower extremity Take 1 Tablet by mouth every 6 hours as needed for Pain, Mild. 45 Tablet 0 4 Active LORazepam 0.5 MG Oral Tablet (Ativan)Indications:Anxi ety state TAKE 1 TABLET 3 TIMES A DAY NEEDED FOR ANXIETY 40 Tablet 1 4 Active Nystatin 935534 UNIT/GM External Powder (Nyamyc) APPLY TO AFFECTED [...] as of this encounter (statuses as of 05/04/2023) Active Problems Problem Noted Date Diagnosed Date [...] to excess calories 0 08/09/2022 Atherosclerosis of [place] ar jania of left lower extremity with intermittent claudication 08/09/2022 Coronary artery disease invo lving [place] coronary artery of [place] heart with angina pectoris 03/22/2022 Last Assessment [...] Diabetic retinopathy Rheumatoid arthritis of [facility] sites without rheumatoid factor 01/26/2016 Last [...] as of this encounter (statuses as of 05/04/2023) Resolved Problems Problem Noted Date Diagnosed Date [...] program 11/08/2018 11/12/2019 Overview: DO NOT DELETE [employer] DETECT Study: Project # [id number], Stopping Builder: Manny Santacruz, PhD. SUMMARY: Goal: Establish test [...] contact study staff at ; after hours Stopping Builder via the [facility] cattery operator . Please contact study team before resolving/deleting from patients problem list. Study phone number: [phone]. Diagnosis changed due to Research Module. Go to Snapshot for study details. Encounter for examination fo r normal comparison and control in clinical research program 11/08/2018 12/10/2021 Overview: DO NOT DELETE - [employer] DETECT Study: Project # [id number], Stopping Builder: Kevin Pearce, MS, MPH. SUMMARY: Goal: Establish [...] contact study staff at ; after hours Stopping Builder via the [facility] cattery operator . - Please contact study team before resolving/deleting from patients problem list. Study phone number: [phone]. Diagnosis changed due to Research Module. Go [...] as of this encounter (statuses as of 05/04/2023) Immunizations Name Administration Dates Next Due COVID-19 [...] encounter Miscellaneous Notes * Telephone Encounter - Papi De La Torre OSA - 05/04/2023 3:42 PM EST Referral -[id number] Orquidea Valencia Dme order for Kathy mcdermott, pt ins/demo and supporting notes uploaded to [employer] website,asked to forward to [employer]. * Telephone Encounter - Tatyana Delaney RN - 05/04/2023 11:48 AM EST Please send order for Kathy mcdermott (02/28/23) to [employer] for them to send through to [employer]. [employer] has the information but it needs to go through first. Thank you! documented in this encounter Plan of Treatment Upcoming Encounters Date Type Department Care Team (Late st Contact Info) Description 05/12/2023 2:00 PM EST Office Visit Nephrology, [facility] [address] [place], [place] [address] Luz Tobias MD [address] [place] [address] 05/26/2023 2:00 PM EST Laboratory Laboratory, [place] [address] [place] [address] [facility] [address] [place], [place] [address] 05/27/2023 4:00 PM EST [facility], [facility] [address] [place] [address] Tatyana Delaney, RN [address] [place] [address] 05/31/2023 1:30 PM EST Imaging Radiology [facility] 1st Floor, [place] [facility] [place] [address] 06/07/2023 1:20 PM EST Office Visit Sleep Disorders Ctr [facility] [address] [facility] [place] [phone] Vira Byrd DO [address] [place] [address] 07/27/2023 3:00 PM EDT Office Visit Cardiology, [facility] 132 [facility] [place] [address] Wood Wong PAMirandaC 132 [facility] [place] [address] 08/01/2023 2:00 PM EDT Laboratory Laboratory[address] [phone] [address] 08/02/2023 2:00 PM EDT Office Visit Rheumatology [facility] [address] [facility] [place] [address] Eliot Castelan CRNP [facility] [place] [address] 08/08/2023 12:30 PM EDT Office Visit Hematology/On[facility] [place] [address] Miguel A Alcantar MD [address] [place] [address] 10/11/2023 5:40 PM EDT Office Visit Family [facility] [address] [place] [address] David Umanzor MD [address] [place] [address] 03/07/2024 1:00 PM EST Office Visit Cardiology, [facility] [address] [place] [address] Manolo Millan MD [address] [place] [address] Scheduled Procedures Name Priority Associated [...] 05/27/2022, Additional history exists Mammogram 07/28/2023 07/27/2022, 0404/2021, 01/09/2019, Additional history exists Albumin/Creatinine Ratio 09/08/202309/07/ 023, 08/06/2022, 05/13/2021, Additional history exists GFR 10/24/2023 04/25/2023, 01/0 07/2023, 03/24/2023, Additional history exists HbA1c 10/24/2023 04/25/2023, 07/11, 04/13/2022, Additional history exists CKD PHOS USE SMARTSET 29139 12/02/202311/10, 08/06/2022, 08/21/2021, Additional history exists CKD HGB USE SMARTSET 00170 03/25/202403/25, 03/25/2023, 02/28/2023, Additional history exists TSH [...] encounter Medical Devices Implanted Type Area Medical Education Specialist Device Identifier Shelf Expiration Date Model / Serial / Lot [employer] Medical Embosphere Micrspheres Implanted:Qty: 2 on 11/02/2019 by Ish Grove MD at [facility] Right: Abdomen [employer] 05/11/2022 S220GH / S220GH / [id number] Syr Pf 2ml Embospheres 100-300 - [id number] Implanted:Qty: 1 on 11/14/2020 at [facility] [employer] [id number] 08/22/2023 S220GH / / [id number] Envelope Antibacterial Tyrx - [id number] Implanted:Qty: 1 on 12/29/2021 by Fatoumata Roland DO at OR [facility] [employer] : CRM [id number] 09/23/2022 CMR M6122 / / [id number] Stent Synergy Xd Mr 3.71k87sb - [id number] Implanted:Qty: 1 on 03/22/2022 by Katalina Pearce MD at [facility] Pain Doctor [id number] 07/17/2023 [id number] / / [id number] Valve Berhane 3 Ultra 26mm - [id number] Implanted:Qty: 1 on 12/09/2022 by Manolo Millan MD at [facility] [employer] [id number] 12/04/2023 [id number] / / documented as of this encounter [...] the patient have Health Care Power of Mobility Specialist? No Care Teams Director Of Quality Control Relationship Specialty Start Date End Date David Umanzor MD [address] [place] [address] PCP - General 02/25/09 documented as of this encounter
--- OUTSIDE RECORDS SUMMARY | 2023-05-28 21:29 | External Medical Summary | Summary of Care ---
Author Name Unknown Organization [facility] Address [address] [facility] [place] [address] Phone [phone] Care Team Providers Care Section Forest Fire Warden Name Role Phone David Umanzor MD Primary Care Provider [phone]- [phone] Reason for Visit * Reason Onset Date Comments [facility]: Maintenance 03/30/2023 Encounter Details Date Type Department Care Team (Late st Contact Info) Description 03/30/2023 Telephone [facility], [facility] [address] [place] [address] Tatyana Delaney RN [address] [place] [address] [facility]: Maintenance Allergies Active Allergy [...] 03/21/20 12 Active Blood Glucose Monitoring Suppl (SocialGuidesIGY AUTOCODE BLOOD GLUCOSE) w/Device KITIndications:DM type 2 causing neurological disease, not at goal ([facility]) Test blood sugar 4 times daily Dx: E11.9 1 Kit 0 03/19/20 19 Active PRODIGY LANCETS 28G MISCIndications:DM type 2, not at goal ([facility]) TEST BLOOD SUAGER 4 [...] hemoglobin A1c goal of less than 7.0% ([facility]),Type 2 diabetes mellitus with stage 3 chronic kidney disease, with long-term current use of insulin, unspecified whether stage 3a or 3b CKD ([facility]),DM type 2 causing neurological disease, not at goal ([facility]) TEST BLOOD SUGAR UP [...] daily 400 Each 3 08/07/19 Active Creon 02977-82780 UNIT Oral Capsule Delayed Release Particles (Pancrelipase (Lbl-Kmxf-Ykng))Indicat ions:Pancreatic insufficiency TAKE ONE CAPSULE BY MOUTH [...] TabletIndications:HFrEF (heart failure with reduced ejection fraction) ([facility]),Coronary artery disease involving kiowa tribe coronary artery of kiowa tribe heart without angina pectoris,Nonrheumatic aortic valve stenosis,Cardiac pacemaker in situ,Tachy-wilfrido syndrome ([facility]) Take 1 Tablet by [...] coma, without long-term current use of insulin ([facility]) Inject 30 units daily [...] combined systolic and diastolic congestive heart failure ([facility]) Take 1 Capsule by [...] Tab 3 03/09/20 10 024 Discontinued Nystatin 334615 UNIT/GM External Powder (Nystop) APPLY TO AFFECTED AREAS UNDER THE BREASTS THREE TIMES PER DAY NEEDED 30 g 1 09/14/19 23 024 Discontinued LORazepam 0.5 MG Oral Tablet (Ativan)Indications:Anx iety state TAKE 1 TABLET 3 TIMES A DAY NEEDED FOR ANXIETY 40 Tablet 1 02/24/20 23 024 Discontinued(R efill) HYDROcodone-Acetaminoph en 5-325 MG Oral TabletIndications:Ather osclerosis of kiowa tribe artery of left lower extremity with [...] to excess calories 0 08/09/2022 Atherosclerosis of kiowa tribe ar jania of left lower extremity with intermittent claudication 08/09/2022 Coronary artery disease invo lving kiowa tribe coronary artery of kiowa tribe heart with angina pectoris 03/22/2022 Last [...] 12/21/2016 Overview: Diabetic retinopathy Rheumatoid arthritis of [facility] sites without rheumatoid factor 01/26/2016 Last Assessment [...] [facility] DET[facility] Study: Project # [id number], Pattern Maker Programer: Manny Santacruz, PhD. SUMMARY: Goal: Establish test [...] study staff at ; after hours Pattern Maker Programer via the [facility] rotary slicing machine operator . Please contact study team before resolving/deleting from patients problem list. Study phone number: [phone]. Diagnosis changed due to Research Module. Go to Snapshot for study details. Encounter for examination fo r normal comparison and control in clinical research program 11/08/2018 12/10/2021 Overview: DO NOT DELETE - [facility] Study: Project # [id number], Pattern Maker Programer: Kevin Pearce, MS, MPH. SUMMARY: Goal: Establish [...] study staff at ; after hours Pattern Maker Programer via the [facility] rotary slicing machine operator . - Please contact study team before resolving/deleting from patients problem list. Study phone number: [phone]. Diagnosis changed due to Research Module. Go [...] encounter Miscellaneous Notes * Telephone Encounter - Rayo Mccray OSA - 05/03/2023 2:53 PM EST [facility] to let provider know that this ordered was cancelled due to supplier unableto reach the pt after 3 attempts. Please advise. * Telephone Encounter - Nallely Tompkins LPN - 04/01/2023 3:04 PM EST Submitted through [employer] [facility] * Telephone Encounter - David Umanzor MD [...] Can you please order and send to [employer] [facility] ? Thanks! documented in this encounter Plan of Treatment Upcoming Encounters Date Type Department Care Team (Late st Contact Info) Description 05/12/2023 2:00 PM EST [place] [address] Luz Tobias MD [address] [place] [address] 05/26/2023 2:00 PM EST Laboratory Laboratory, [place] [address] [place] [address] [facility] [address] [facility] [place] [address] 05/27/2023 4:00 PM EST [facility] Visit [facility] [address] [place] [address] Tatyana Delaney RN 132 [facility] [place] [address] 05/31/2023 1:30 PM EST [facility] [address] 06/07/2023 1:20 PM EST Office Visit [facility] [address] [facility] [phone] Vira Byrd, [address] [facility] [place] [address] 07/27/2023 3:00 PM EDT Office Visit Cardiology, [facility] [address] [facility] [place] [address] Wodo Wong PA-C [address] [facility] [place] [address] 08/01/2023 2:00 PM EDT Laboratory Laboratory, [place] [address] [place] [address] [facility] [address] [facility] [place] [address] 08/02/2023 2:00 PM EDT Office Visit Rheumatology [facility] [address] [facility] [place] [address] Eilot Castelan CRNP [address] [facility] [place] [address] 08/08/2023 12:30 PM EDT Office Visit Hematology/Oncology [facility] [address] [facility] [place], [place] [address] Miguel A Alcantar MD [address] [facility] [place], [place] [address] 10/11/2023 5:40 PM EDT [facility] [address] [place] [address] David Umanzor MD [address] [place] [address] 03/07/2024 1:00 PM EST Office Visit Cardiology, [facility] [address] [facility] [place] [address] Manolo Millan MD [address] [place] [address] Scheduled Procedures Name Priority Associated [...] 0404/2021, 01/09/2019, Additional history exists Albumin/Creatinine Ratio 09/08/2023 023, 08/06/2022, 05/13/2021, Additional history exists GFR 10/24/2023 04/25/2023, 01/0 07/2023, 03/24/2023, Additional history exists HbA1c 10/24/2023 04/25/2023, 07/11, 04/13/2022, Additional history exists CKD PHOS USE SMARTSET 97450 12/02/202311/10, 08/06/2022, 08/21/2021, Additional history exists CKD HGB USE SMARTSET 67154 03/25/202403/25, 03/25/2023, 02/28/2023, Additional history exists TSH 04/25/2024 04/25/2023, 010 06/2022, 05/13/2021, Additional history exists DXA Scan [...] encounter Medical Devices Implanted Type Area Manager Investment Banking Device Identifier Shelf Expiration Date Model / Serial / Lot [place] [employer] Medical Embosphere Micrspheres Implanted:Qty: 2 on 11/02/2019 by Ish Grove MD at [facility] Right: Abdomen [employer] 05/11/2022 S220GH / S220GH / [id number] Syr Pf 2ml Embospheres 100-300 - [id number] Implanted:Qty: 1 on 11/14/2020 at [facility] [employer] [id number] 08/22/2023 S220GH / / [id number] Envelope Antibacterial Tyrx - [id number] Implanted:Qty: 1 on 12/29/2021 by Fatoumata Roland DO at [facility] [employer] : CRM [id number] 09/23/2022 CMR [id number] / / [id number] Stent Synergy Xd Mr 3.56f06gh - [id number] Implanted:Qty: 1 on 03/22/2022 by Katalina Pearce MD at [facility] [employer] [id number] 07/17/2023 [id number] / / [id number] Valve Berhane 3 Ultra 26mm - [id number] Implanted:Qty: 1 on 12/09/2022 by Manolo Millan MD at [facility] [employer] [id number] 12/04/2023 [id number] / / documented as of this encounter [...] the patient have Health Care Power of Research Test Engine Operator? No Care Teams Section Forest Fire Warden Relationship Specialty Start Date End Date David Umanzor MD [address] [place] [address] PCP - General 02/25/09 documented as of this encounter
--- OUTSIDE RECORDS SUMMARY | 2023-05-28 21:29 | External Medical Summary | Summary of Care ---
Author Name Unknown Organization [facility] Address [address] [place] [facility] [place] [address] Phone [phone] Care Team Providers Care Fixture Fabricator Repairer Name Role Phone David Umanzor MD Primary Care Provider [phone]- [phone] Encounter Details Date Type Department Care Team (Late st Contact Info) Description 05/05/2023 Population Health External Data Unspecified Department Allergies [...] 1 2 Active Blood Glucose Monitoring Suppl (Linden LabIGY AUTOCODE BLOOD GLUCOSE) w/Device KITIndications:DM type 2 causing neurological disease, not at goal ([facility]) Test blood sugar 4 times daily Dx: E11.9 1 Kit 0 9 Active PRODIGY LANCETS 28G MISCIndications:DM type 2, not at goal ([facility]) TEST BLOOD SUAGER 4 TIMES [...] goal of less than 7.0% ([facility]),Type 2 diabetes mellitus with stage 3 chronic kidney disease, with long-term current use of insulin, unspecified whether stage 3a or 3b CKD ([facility]),DM type 2 causing neurological disease, not at goal ([facility]) TEST BLOOD SUGAR UP TO FOUR TIMES DAILY 400 Strip 3 2 Active Fluticasone Propionate 50 MCG/ACT Nasal Suspension (Flonase)Indications:[place] House Vat Worker sanket rhinitis ADMINISTER 2 SPRAYS IN [...] long-term current use of insulin ([facility]) Use to inject insulin 4 times daily 400 Each 3 3 Active Creon 61176-05466 UNIT Oral Capsule Delayed Release Particles (Pancrelipase (Ahv-Cpcu-Qvaq))Indicatio ns:Pancreatic insufficiency TAKE ONE CAPSULE BY MOUTH [...] long-term current use of insulin ([facility]) Inject 10 units with breakfast, 4 units with lunch, and 10 units with PM meal. Inject 4 units if BG is >200. 30 mL 5 3 Active Acetaminophen 500 MG Oral TabletIndications:HFrEF (heart failure with reduced ejection fraction) ([facility]),Coronary artery disease involving wales coronary artery of wales heart without angina pectoris,Nonrheumatic aortic valve stenosis,Cardiac pacemaker in situ,Tachy-wilfrido syndrome ([facility]) Take 1 Tablet by mouth [...] long-term current use of insulin ([facility]) Inject 30 units daily 45 [...] Active Gabapentin 300 MG Oral Capsule (Neurontin)Indications:Ac [place] on chronic combined systolic and diastolic congestive [...] HYDROcodone-Acetaminophen 5-325 MG Oral TabletIndications:Atheros clerosis of wales artery of left lower extremity with intermittent claudication (HCC),Pain of left lower extremity Take 1 Tablet by mouth every 6 hours as needed for Pain, Mild. 45 Tablet 0 4 Active LORazepam 0.5 MG Oral Tablet (Ativan)Indications:Anxie ty state TAKE 1 TABLET 3 TIMES A DAY NEEDED FOR ANXIETY 40 Tablet 1 4 Active Nystatin 699499 UNIT/GM External Powder (Nyamyc) APPLY TO AFFECTED [...] to excess calories 0 08/09/2022 Atherosclerosis of wales ar jania of left lower extremity with intermittent claudication 08/09/2022 Coronary artery disease invo lving wales coronary artery of wales heart with angina pectoris 03/22/2022 Last Assessment [...] 12/21/2016 Overview: Diabetic retinopathy Rheumatoid arthritis of [facility] sites without rheumatoid factor 01/26/2016 Last Assessment [...] DELETE [facility] DETECT Study: Project # [id number], Medical Educator: Manny Santacruz, PhD. SUMMARY: Goal: Establish test [...] contact study staff at ; after hours Medical Educator via the [facility] monotype keyboard operator . Please contact study team before resolving/deleting from patients problem list. Study phone number: [phone]. Diagnosis changed due to Research Module. Go to Snapshot for study details. Encounter for examination fo r normal comparison and control in clinical research program 11/08/2018 12/10/2021 Overview: DO NOT DELETE - [facility] Study: Project # [id number], Medical Educator: Kevin Pearce, MS, MPH. SUMMARY: Goal: Establish [...] contact study staff at ; after hours Medical Educator via the [facility] monotype keyboard operator . - Please contact study team before resolving/deleting from patients problem list. Study phone number: [phone]. Diagnosis changed due to Research Module. Go [...] Visit Nephrology, [facility] [place], [place] [address] Luz Tobias MD [address] [place] [address] 05/26/2023 2:00 PM EST Laboratory Laboratory, [place] [address] [place] [phone] [facility] [address] [place] [address] 05/27/2023 4:00 PM EST [facility] [address] [place] [address] Tatyana Delaney RN [facility] [place] [address] 05/31/2023 1:30 PM EST [facility] [place] [address] 06/07/2023 1:20 PM EST Office Visit Sleep Disorders Ctr [facility] [address] [facility] [place] [phone] Vira Byrd, [address] [place] [address] 07/27/2023 3:00 PM EDT Office Visit Cardiology, [facility] [place] [address] Wood Wong PA-C [address] [place] [address] 08/01/2023 2:00 PM EDT Laboratory Laboratory, [place] [address] [place] [facility] [place] [phone] [facility] [address] [place] [address] 08/02/2023 2:00 PM EDT Office Visit Rheumatology [facility] [address] [facility] [place], [place] [address] Eliot Castelan CRNP [address] [facility] [place] [address] 08/08/2023 12:30 PM EDT Office Visit Hematology/Oncology [facility] [address] [facility] [place], [place] [address] Miguel A Alcantar MD [address] [facility] [place], [place] [address] 10/11/2023 5:40 PM EDT Office Visit Family Practice, [place] [address] [place] [address] David Umanzor MD [address] [place] [address] 03/07/2024 1:00 PM EST Office Visit Cardiology, [facility] [address] [place] [address] Manolo Millan MD [address] [place] [address] Scheduled Procedures Name Priority Associated [...] 03/24/2023, Additional history exists HbA1c 10/24/2023 04/25/2023, 2 11/2022, 04/13/2022, Additional history exists CKD PHOS USE SMARTSET 46338 12/02/20232 06/2022, 08/06/2022, 08/21/2021, Additional history exists CKD HGB USE SMARTSET 90901 03/25/202403/25, 03/25/2023, 02/28/2023, Additional history exists TSH [...] this encounter Medical Devices Implanted Type Area Communication Consultant Device Identifier Shelf Expiration Date Model / Serial / Lot [employer] Medical Embosphere Micrspheres Implanted:Qty: 2 on 11/02/2019 by Ish Grove MD at [facility] Right: Abdomen [employer] 05/11/2022 S220GH / S220GH / [id number] Syr Pf 2ml Embospheres 100-300 - [id number] Implanted:Qty: 1 on 11/14/2020 at [facility] [employer] [id number] 08/22/2023 S220GH / / [id number] Envelope Antibacterial Tyrx - [id number] Implanted:Qty: 1 on 12/29/2021 by Fatoumata Roland DO at [facility] [employer] : [facility] [id number] 09/23/2022 CMR M6122 / / [id number] Stent Synergy Xd Mr 3.98u21pb - [id number] Implanted:Qty: 1 on 03/22/2022 by Katalina Pearce MD at [facility] [employer] [id number] 07/17/2023 [id number] / / [id number] Valve Berhane 3 Ultra 26mm - [id number] Implanted:Qty: 1 on 12/09/2022 by Manolo Millan MD at [facility] [employer] [id number] 12/04/2023 [id number] / / documented as of this encounter [...] the patient have Health Care Power of Stripper Cutter Machine? No Care Teams Fixture Fabricator Repairer Relationship Specialty Start Date End Date David Umanzor MD [address] [place] [address] PCP - General 02/25/09 documented as of this encounter
--- OUTSIDE RECORDS SUMMARY | 2023-05-28 21:29 | External Medical Summary | Summary of Care ---
Author Name Unknown Organization [facility] Address [address] [facility] [place] [address] Phone [phone] Care Team Providers Care Women'S Apparel Salesperson Name Role Phone Millie Cage MD Primary Care Provider [phone]- [phone] Reason for Visit * Reason Onset Date Comments [facility]: Maintenance 05/04/2023 Encounter Details Date Type Department Care Team (Late st Contact Info) Description 05/04/2023 Telephone [facility], [facility] 132 [facility] [place] [address] [facility], [facility] [address] [place] [address] [facility]: Maintenance Allergies Active Allergy [...] 1 2 Active Blood Glucose Monitoring Suppl (WorldratIGMemvu AUTOCODE BLOOD GLUCOSE) w/Device KITIndications:DM type 2 [...] daily 400 Each 3 3 Active Creon 07310-46228 UNIT Oral Capsule Delayed Release Particles (Pancrelipase (Xcp-Ypqm-Spxm))Indicati ons:Pancreatic insufficiency TAKE ONE CAPSULE BY MOUTH [...] [facility]),Coronary artery disease involving [place] coronary artery of [place] heart without angina pectoris,Nonrheumatic aortic valve stenosis,Cardiac pacemaker in situ,Tachy-wilfrido syndrome ([facility]) Take 1 Tablet by mouth at bedtime. [...] [facility]) Inject 30 units daily 45 mL 1 [...] combined systolic and diastolic congestive heart failure ([facility]) Take 1 Capsule by mouth in the [...] n 5-325 MG Oral TabletIndications:Athero sclerosis of [place] artery of left lower extremity with intermittent claudication (HCC),Pain of left lower extremity Take 1 Tablet by mouth every 6 hours as needed for Pain, Mild. 45 Tablet 0 4 Active LORazepam 0.5 MG Oral Tablet (Ativan)Indications:Anxi ety state TAKE 1 TABLET 3 TIMES A DAY NEEDED FOR ANXIETY 40 Tablet 1 4 Active Nystatin 087696 UNIT/GM External Powder (Nyamyc) APPLY TO AFFECTED [...] 10 Tablet 0 4 05/14/19 24 Active Doxycycline Hyclate 100 MG Oral CapsuleIndications:Open [...] 0 08/09/2022 Atherosclerosis of [place] ar jania of left lower extremity with intermittent claudication 08/09/2022 Coronary artery disease invo lving [place] coronary artery of [place] heart with angina pectoris 03/22/2022 Last Assessment [...] Diabetic retinopathy Rheumatoid arthritis of [facility] sites without rheumatoid factor 01/26/2016 Last Assessment [...] 11/08/2018 11/12/2019 Overview: DO NOT DELETE [facility] COY Study: Project # [id number], Maintenance Construction Helper: Manny Santacruz, PhD. SUMMARY: Goal: Establish test [...] contact study staff at ; after hours Maintenance Construction Helper via the [facility] feller operator . Please contact study team before resolving/deleting from patients problem list. Study phone number: [phone]. Diagnosis changed due to Research Module. Go to Snapshot for study details. Encounter for examination fo r normal comparison and control in clinical research program 11/08/2018 12/10/2021 Overview: DO NOT DELETE - [facility] DETECT Study: Project # [id number], Maintenance Construction Helper: Kevin Pearce, MS, MPH. SUMMARY: Goal: Establish [...] contact study staff at ; after hours Maintenance Construction Helper via the [facility] feller operator . - Please contact study team before resolving/deleting from patients problem list. Study phone number: [phone]. Diagnosis changed due to Research Module. Go [...] Telephone Encounter - Gayathri Malagon RN - 05/04/2023 4:01 PM EST Called patient back, aware to stop taking Doxycyline. A new prescription for Levaquin 500 mg , 1 tablet daily in the morning for 10 days was ordered and sent to the [facility] in [place]. Informed patient to call back in a few days to let PCP and [facility] know if new antibiotic is working. Patient verbalized understanding and stated next Home health visit is scheduled for Tuesday, she will have nurse evaluate at that time. Gayathri Malagon RN Secret Service Agent [place] * Addendum Note - Millie Cage MD - 05/04/2023 3:38 PM ESTAddended by: MILLIE CAGE on: 05/04/2023 03:38 PM Modules accepted: Orders * Telephone Encounter - Millie Cage MD - 05/04/2023 3:31 PM EST Please contact pt. We should change antibiotic. The doxycycline is not likely to work against the bacteria found. The best picks would be bactrim or cephalosporins - she is allergic to both. The other antibiotic listed that would be effective is gentamicin - but this is just IV. So, would suggest that we try levofloxacin. Sent Samuel. She can stop the doxycycline. The culture shows intermediate sensitivity to this abx, so will need to see how she responds clinically over the next several days. She had nausea with cipro and this is in the same class although often better tolerated. * Telephone Encounter - Gayathri Malagon RN - 05/04/2023 3:04 PM EST Images from the original note were not included. Phone call from patient stating she had a home visit earlier today with Tatyana FONTENOT RNCM and was informed of left leg wound culture results. Patient states she has been taking Doxycyline since it was ordered on 04/28, but Tatyana told her Doxycyline is not listed on antibiotic sensitivity list and she was going send a message to Dr. Cage to check if antibiotic needs to be changed. Tatyana also told patient to call [facility] if she did not hear from Dr. Cage by 3 PM today. Patient has not heard from Dr. Cage yet. Patient then said nurse changed dressing today on the wound on her left lower leg and there was a lot of purulent drainage noted. Patient said if new antibiotic needs to be ordered please send to [facility] ,[place] in [place]. Gayathri Malagon wirer street lightSecret Service Agent [facility] documented in this encounter Plan of Treatment Upcoming Encounters Date Type Department Care Team (Late st Contact Info) Description 05/12/2023 2:00 PM EST Office Visit Nephrology, Raphael Marquez [address] [facility] [place] [address] Luz Tobias MD [address] [facility] [place] [address] 05/26/2023 2:00 PM EST Laboratory Laboratory, [place] [address] [place] [facility] [place] [address] [facility] [address] [place] [address] 05/27/2023 4:00 PM EST [facility] Visit [facility], [facility] 132 [facility] [place] [address] Tatyana Delaney, RN 132 [facility] [place] [address] 05/31/2023 1:30 PM EST Imaging Radiology [facility] 1st Floor, [place] [address] [facility] [place] [address] 06/07/2023 1:20 PM EST Office Visit Sleep Disorders Ctr [facility] 132 [facility] [place] [phone] Vira Byrd, 132 [facility] [place] [address] 07/27/2023 3:00 PM EDT Office Visit Cardiology, [facility] 132 [facility] [place] [address] Wood Wong PA-C 132 [facility] [place] [address] 08/01/2023 2:00 PM EDT Laboratory Laboratory, [place] [address] [place] [address] [facility] [address] [place] [address] 08/02/2023 2:00 PM EDT Office Visit Rheumatology [place] [id number] [facility] [place], [place] [address] Eliot Castelan CRNP [facility] [place] [address] 08/08/2023 12:30 PM EDT Office Visit Hematology/Oncology [facility] [address] [facility] [place] [address] Miguel A Alcantar MD [address] [facility] [place] [address] 10/11/2023 5:40 PM EDT Office Visit [facility] [address] [place] [address] Millie Cage MD [address] [place] [address] 03/07/2024 1:00 PM EST Office Visit Cardiology, [facility] [address] [place] [address] Manolo Millan MD [address] [place] [address] Scheduled Procedures Name Priority Associated [...] Additional history exists CKD PHOS USE SMARTSET 39662 12/02/202311/10, 08/06/2022, 08/21/2021, Additional history exists CKD HGB USE SMARTSET 82981 03/25/202403/25, 03/25/2023, 02/28/2023, Additional history exists TSH [...] this encounter Medical Devices Implanted Type Area Instrument Adjuster Device Identifier Shelf Expiration Date Model / Serial / Lot Sparling Studio Medical Embosphere Micrspheres Implanted:Qty: 2 on 11/02/2019 by Ish Grove MD at [facility] Right: Abdomen [employer] 05/11/2022 S220GH / S220GH / [id number] Syr Pf 2ml Embospheres 100-300 - [id number] Implanted:Qty: 1 on 11/14/2020 at [facility] [employer] [id number] 08/22/2023 S220GH / / [id number] Envelope Antibacterial Tyrx - [id number] Implanted:Qty: 1 on 12/29/2021 by Fatoumata Roland DO at OR [facility] [employer] : CRM [id number] 09/23/2022 CMR [id number] / / [id number] Stent Synergy Xd Mr 3.27x38br - [id number] Implanted:Qty: 1 on 03/22/2022 by Katalina Pearce MD at [facility] [employer] [id number] 07/17/2023 [id number] / / [id number] Valve Berhane 3 Ultra 26mm - [id number] Implanted:Qty: 1 on 12/09/2022 by Manolo Millan MD at [facility] [employer] [id number] 12/04/2023 [id number] / / documented as of this encounter Visit Diagnoses Diagnosis Cellulitis of lower extremity, unspecified laterality- Primary documented in this encounter Advance Directives [...] the patient have Health Care Power of Server Support Technician? No Care Teams Women'S Apparel Salesperson Relationship Specialty Start Date End Date Millie Cage MD [address] [place] [address] PCP - General 02/25/09 documented as of this encounter
--- OUTSIDE RECORDS SUMMARY | 2023-05-28 21:29 | External Medical Summary | Summary of Care ---
Author Name Unknown Organization [facility] Address [address] [facility] [place] [address] Phone [phone] Care Team Providers Care Water Trainer Name Role Phone David Umanzor MD Primary Care Provider [phone]- [phone] Reason for Visit * Reason Onset Date Comments [facility]: Maintenance 03/30/2023 Encounter Details Date Type Department Care Team (Late st Contact Info) Description 03/30/2023 Telephone [facility], [facility] [address] [place] [address] Tatyana Delaney RN [address] [place] [address] [facility]: Maintenance Allergies Active Allergy [...] 03/21/20 12 Active Blood Glucose Monitoring Suppl ([employer]IGY AUTOCODE BLOOD GLUCOSE) w/Device KITIndications:DM type 2 [...] daily 400 Each 3 08/07/19 Active Creon 04316-72564 UNIT Oral Capsule Delayed Release Particles (Pancrelipase (Vdy-Bcwp-Cinm))Indicat ions:Pancreatic insufficiency TAKE ONE CAPSULE BY MOUTH [...] [facility]),Coronary artery disease involving [place] coronary artery of [place] heart without angina pectoris,Nonrheumatic aortic valve stenosis,Cardiac [...] Tab 3 03/09/20 10 024 Discontinued Nystatin 266861 UNIT/GM External Powder (Nystop) APPLY TO AFFECTED AREAS UNDER THE BREASTS THREE TIMES PER DAY NEEDED 30 g 1 09/14/19 23 024 Discontinued LORazepam 0.5 MG Oral Tablet (Ativan)Indications:Anx iety state TAKE 1 TABLET 3 TIMES A DAY NEEDED FOR ANXIETY 40 Tablet 1 02/24/20 23 024 Discontinued(R efill) HYDROcodone-Acetaminoph en 5-325 MG Oral TabletIndications:Ather [place]clerosis of [place] artery of left lower extremity with intermittent [...] to excess calories 0 08/09/2022 Atherosclerosis of [place] ar jania of left lower extremity with intermittent claudication 08/09/2022 Coronary artery disease invo lving [place] coronary artery of [place] heart with angina pectoris 03/22/2022 Last Assessment [...] [facility] sites without rheumatoid factor 01/26/2016 Last Assessment [...] program 11/08/2018 11/12/2019 Overview: DO NOT DELETE [facility] DETECT Study: Project # [id number], Manager Agricultural: Manny Santacruz, PhD. SUMMARY: Goal: Establish test [...] study staff at ; after hours Manager Agricultural via the [facility] chop saw operator . Please contact study team before resolving/deleting from patients problem list. Study phone number: [phone]. Diagnosis changed due to Research Module. Go to Snapshot for study details. Encounter for examination fo r normal comparison and control in clinical research program 11/08/2018 12/10/2021 Overview: DO NOT DELETE - [facility] Study: Project # [id number], Manager Agricultural: Kevin Pearce, MS, MPH. SUMMARY: Goal: Establish [...] study staff at ; after hours Manager Agricultural via the [facility] chop saw operator . - Please contact study team before resolving/deleting from patients problem list. Study phone number: [phone]. Diagnosis changed due to Research Module. Go [...] confusion) that we sent the order but [facility] cancelled it because they could not reach her. She has [employer], could we get her some assistance with a social media marketer or case folder? She does not have good support at home and is blind. * Telephone Encounter - Rayo Mccray OSA - 05/03/2023 2:[address] [facility] calling to let provider know that this ordered was cancelled due to supplier unableto reach the pt after 3 attempts. Please advise. * Telephone Encounter - Nallely Tompkins LPN - 04/01/2023 3:04 PM EST [facility] * Telephone Encounter - David Umanzor MD [...] Visit Nephrology, Raphael Marquez [address] [place] [address] Luz Tobias MD 200 [facility] [place] [address] 05/26/2023 2:00 PM EST Laboratory Laboratory, [place] [address] [place] [facility] [place] [address] [facility] [address] [place] [address] 05/27/2023 4:00 PM EST [facility] [address] [facility] [place] [address] Tatyana Delaney RN [facility] [address] 05/31/2023 1:30 PM EST Imaging Radiology [facility] [address] [facility] [place] [address] 06/06/2023 2:40 PM EST Pharmacy Pharmacy, [place] [address] [place] [address] [facility] [address] [facility] [address] 06/07/2023 1:20 PM EST Office Visit Sleep Disorders [facility] 132 [facility] [place] [phone] Vira Byrd, DO [address] [facility] [place] [address] 07/27/2023 3:00 PM EDT Office Visit Cardiology, [facility] 132 [place] [address] Wood Wong, PA-C [address] [place] [address] 08/01/2023 2:00 PM EDT Laboratory Laboratory, [place] [address] [place] [address] [facility] [address] [place] [address] 08/02/2023 2:00 PM EDT Office Visit Rheumatology [place] [address] [facility] [place], [place] [address] Eliot Castelan CRNP [address] [facility] [place], [place] [address] 08/08/2023 12:30 PM EDT Office Visit Hematology/Oncology [facility] [address] [facility] [place] [address] Miguel A Alcantar MD [address] [facility] [place] [address] 10/11/2023 5:40 PM EDT Office Visit Family Practice, [place] [address] [place] [address] David Umanzor MD [address] [place] [address] 03/07/2024 1:00 PM EST Office Visit Cardiology, [facility] [address] [facility] [place] [address] Manolo Millan MD [address] [place] [address] Scheduled Procedures Name Priority Associated Diagnoses Date/Ti [...] Additional history exists CKD PHOS USE SMARTSET 79121 12/02/202311/10, 08/06/2022, 08/21/2021, Additional history exists CKD HGB USE SMARTSET 23472 03/25/202403/25, 03/25/2023, 02/28/2023, Additional history exists TSH [...] this encounter Medical Devices Implanted Type Area Solar Thermal Installer Device Identifier Shelf Expiration Date Model / Serial / Lot Duriana Medical Embosphere Micrspheres Implanted:Qty: 2 on 11/02/2019 by Ish Grove MD at [facility] Right: Abdomen [employer] 05/11/2022 S220GH / S220GH / [id number] Syr Pf 2ml Embospheres 100-300 - [id number] Implanted:Qty: 1 on 11/14/2020 at [facility] [employer] [id number] 08/22/2023 S220GH / / [id number] Envelope Antibacterial Tyrx - [id number] Implanted:Qty: 1 on 12/29/2021 by Fatoumata Roland DO at OR [facility] [employer] : CRM [id number] 09/23/2022 CMR M6122 / / [id number] Stent Synergy Xd Mr 3.65y68tt - [id number] Implanted:Qty: 1 on 03/22/2022 by Katalina Pearce MD at [facility] 5[employer]1 [id number] 07/17/2023 [id number] / / [id number] Valve Berhane 3 Ultra 26mm - [id number] Implanted:Qty: 1 on 12/09/2022 by Manolo Millan MD at [facility] [employer] [id number] 12/04/2023 [id number] / / documented as of this encounter [...] the patient have Health Care Power of Cabana Attendant? No Care Teams Water Trainer Relationship Specialty Start Date End Date David Umanzor MD [address] [place] [address] PCP - General 02/25/09 documented as of this encounter
--- OUTSIDE RECORDS SUMMARY | 2023-05-28 21:29 | External Medical Summary | Summary of Care ---
Author Name Unknown Organization [facility] Address [address] [facility] [place] [address] Phone [phone] Care Team Providers Care Grooving Lathe Tender Name Role Phone David Umanzor MD Primary Care Provider [phone]- [phone] Reason for Visit * Reason Onset Date Comments [facility]: Maintenance 05/04/2023 Encounter Details Date Type Department Care Team (Late st Contact Info) Description 05/04/2023 Telephone [facility], [facility] [address] [place] [address] Tatyana Delaney RN [address] [place] [address] [facility]: Maintenance Allergies Active Allergy [...] 1 2 Active Blood Glucose Monitoring Suppl ([employer] AUTOCODE BLOOD GLUCOSE) w/Device KITIndications:DM type 2 [...] daily 400 Each 3 3 Active Creon 38596-54157 UNIT Oral Capsule Delayed Release Particles (Pancrelipase (Xuk-Ojef-Awsc))Indicati ons:Pancreatic insufficiency TAKE ONE CAPSULE BY MOUTH [...] [facility]),Coronary artery disease involving [place] coronary artery of [place] heart without angina pectoris,Nonrheumatic aortic valve stenosis,Cardiac pacemaker in situ,Tachy-wilfrido syndrome ([facility]) Take 1 Tablet by mouth [...] and diastolic congestive heart failure ([facility]) Take 1 Capsule by mouth in [...] n 5-325 MG Oral TabletIndications:Athero sclerosis of [place] artery of left lower extremity with intermittent claudication (HCC),Pain of left lower extremity Take 1 Tablet by mouth every 6 hours as needed for Pain, Mild. 45 Tablet 0 4 Active LORazepam 0.5 MG Oral Tablet (Ativan)Indications:Anxi ety state TAKE 1 TABLET 3 TIMES A DAY NEEDED FOR ANXIETY 40 Tablet 1 4 Active Nystatin 716204 UNIT/GM External Powder (Nyamyc) APPLY TO AFFECTED [...] to excess calories 0 08/09/2022 Atherosclerosis of [place] ar jania of left lower extremity with intermittent claudication 08/09/2022 Coronary artery disease invo lving [place] coronary artery of [place] heart with angina pectoris 03/22/2022 Last [...] Overview: Diabetic retinopathy Rheumatoid arthritis of [facility] without rheumatoid factor 01/26/2016 Last Assessment [...] program 11/08/2018 11/12/2019 Overview: DO NOT DELETE [employer] DETECT Study: Project # [id number], Flat Sorting Machine Clerk: Manny Santacruz, PhD. SUMMARY: Goal: Establish [...] contact study staff at ; after hours Flat Sorting Machine Clerk via the [facility] photocopying machine operator . Please contact study team before resolving/deleting from patients problem list. Study phone number: [phone]. Diagnosis changed due to Research Module. Go to Snapshot for study details. Encounter for examination fo r normal comparison and control in clinical research program 11/08/2018 12/10/2021 Overview: DO NOT DELETE - [employer] DETECT Study: Project # [id number], Flat Sorting Machine Clerk: Kevin Pearce, MS, MPH. SUMMARY: Goal: [...] contact study staff at ; after hours Flat Sorting Machine Clerk via the [facility] photocopying machine operator . - Please contact study team before resolving/deleting from patients problem list. Study phone number: [phone]. Diagnosis changed due to Research Module. Go [...] Miscellaneous Notes * Telephone Encounter - Tatyana Delaney, RN - 05/04/2023 11:48 AM EST Please send order for Kathy mcdermott (02/28/23) to [employer] for them to send through to [employer]. [employer] has the information but it needs to go through TH first. Thank you! documented in this encounter Plan of Treatment Upcoming Encounters Date Type Department Care Team (Late st Contact Info) Description 05/12/2023 2:00 PM EST Office Visit Nephrology, [facility] [address] [facility] [place] [address] Luz Tobias MD 200 [place] [address] 05/26/2023 2:00 PM EST Laboratory Laboratory, [place] [address] [place] [address] [facility] [address] [place] [address] 05/27/2023 4:00 PM EST [facility] Visit [facility] [place], [facility] [address] [place] [address] Tatyana Delaney RN [address] [place] [address] 05/31/2023 1:30 PM EST Imaging Radiology [address], [place] [address] [facility] [place] [address] 06/07/2023 1:20 PM EST Office Visit Sleep Disorders Ctr [facility] [address] [facility] [place] [phone] Vira Byrd, [address] [place] [address] 07/27/2023 3:00 PM EDT Office Visit Cardiology, [facility] [address] [facility] [place] [address] Wood Wong PA-C 132 [facility] [place] [address] 08/01/2023 2:00 PM EDT Laboratory Laboratory, [place] [address] [place] [phone] [facility] [address] [place] [address] 08/02/2023 2:00 PM EDT Office Visit Rheumatology [place] [address] [facility] [place] [address] Eliot Castelan CRNP [facility] [place], [place] [address] 08/08/2023 12:30 PM EDT Office Visit Hematology/Oncology [facility] [address] [place] [address] Miguel A Alcantar MD [address] [place] [address] 10/11/2023 5:40 PM EDT Office Visit Family Practice, [place] [address] [place] [facility] [place] [phone] David Umanzor MD [address] [place] [address] 03/07/2024 1:00 PM EST Office Visit Cardiology, [facility] [address] [place] [address] Manolo Millan MD [address] [place] [address] Scheduled Procedures Name Priority Associated [...] Additional history exists CKD PHOS USE SMARTSET 71418 12/02/202311/10, 08/06/2022, 08/21/2021, Additional history exists CKD HGB USE SMARTSET 58668 03/25/202403/25, 03/25/2023, 02/28/2023, Additional history exists TSH [...] this encounter Medical Devices Implanted Type Area Switchboard And Control Room Operator Device Identifier Shelf Expiration Date Model / Serial / Lot [facility] Medical Embosphere Micrspheres Implanted:Qty: 2 on 11/02/2019 by Ish Grove MD at [facility] Right: Abdomen [id number] 05/11/2022 S220GH / S220GH / [id number] Syr Pf 2ml Embospheres 100-300 - [id number] Implanted:Qty: 1 on 11/14/2020 at [facility] [employer] [id number] 08/22/2023 S220GH / / [id number] Envelope Antibacterial Tyrx - [id number] Implanted:Qty: 1 on 12/29/2021 by Fatoumata Roland DO at [facility] [employer] : CRM [id number] 09/23/2022 CMR [id number] / / [id number] Stent Synergy Xd Mr 3.62y18bz - [id number] Implanted:Qty: 1 on 03/22/2022 by Katalina Pearce MD at [facility] [employer] [id number] 07/17/2023 [id number] / [id number] Valve Berhane 3 Ultra 26mm - [id number] Implanted:Qty: 1 on 12/09/2022 by Manolo Millan MD at [facility] [employer] [id number] 12/04/2023 [id number] / / documented as of this encounter [...] the patient have Health Care Power of Printing Machine Mechanic? No Care Teams Grooving Lathe Tender Relationship Specialty Start Date End Date David Umanzor MD [address] [place] [address] PCP - General 02/25/09 documented as of this encounter
--- OUTSIDE RECORDS SUMMARY | 2023-05-28 21:29 | External Medical Summary | Summary of Care ---
Author Name Unknown Organization [facility] Address [address] [facility] [place] [address] Phone [phone] Care Team Providers Care Special Assets Officer Name Role Phone David Umanzor MD Primary Care Provider [phone]- [phone] Reason for Visit * Reason Comments [facility]: Maintenance Encounter Details Date Type Department Care Team (Late st Contact Info) Description 05/04/2023 11:30 AM EST Home Visit [facility], [facility] [address] [place] [address] Tatyana Delaney, RN [address] [place] [address] Advanced care planning/counseling discussion* Allergies Active Allergy [...] 1 2 Active Blood Glucose Monitoring Suppl ([employer] AUTOCODE BLOOD GLUCOSE) w/Device KITIndications:DM type 2 [...] daily 400 Each 3 3 Active Creon 08653-38060 UNIT Oral Capsule Delayed Release Particles (Pancrelipase (Xwe-Ebar-Xzob))Indicati ons:Pancreatic insufficiency TAKE ONE CAPSULE BY MOUTH [...] fraction) ([facility]),Coronary artery disease involving [place] coronary artery of [place] heart without angina pectoris,Nonrheumatic aortic valve stenosis,Cardiac [...] and diastolic congestive heart failure ([facility]) Take 1 Capsule by mouth in the [...] n 5-325 MG Oral TabletIndications: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 45 Tablet 0 4 Active LORazepam 0.5 MG Oral Tablet (Ativan)Indications:Anxi ety state TAKE 1 TABLET 3 TIMES A DAY NEEDED FOR ANXIETY 40 Tablet 1 4 Active Nystatin 464828 UNIT/GM External Powder (Nyamyc) APPLY TO AFFECTED [...] to excess calories 0 08/09/2022 Atherosclerosis of [place] ar jania of left lower extremity with intermittent claudication 08/09/2022 Coronary artery disease invo lving [place] coronary artery of [place] heart with angina pectoris 03/22/2022 Last Assessment [...] retinopathy Rheumatoid arthritis of [facility] sites without rheumatoid factor 01/26/2016 Last Assessment [...] [facility] DETECT Study: Project # [id number], Poker Room Manager: Manny Santacruz, PhD. SUMMARY: Goal: Establish [...] contact study staff at ; after hours Poker Room Manager via the [facility] dixonac operator . Please contact study team before resolving/deleting from patients problem list. Study phone number: [phone]. Diagnosis changed due to Research Module. Go to Snapshot for study details. Encounter for examination fo r normal comparison and control in clinical research program 11/08/2018 12/10/2021 Overview: DO NOT DELETE - [employer] DETECT Study: Project # [id number], Poker Room Manager: Kevin Pearce, MS, MPH. SUMMARY: Goal: [...] contact study staff at ; after hours Poker Room Manager via the [facility] dixonac operator . - Please contact study team before resolving/deleting from patients problem list. Study phone number: [phone]. Diagnosis changed due to Research Module. Go [...] 05/04/2023 8:10 AM EST [facility] Dog Day Care Attendant Visit Date: 05/04/2023 Time: 11:11 AM Name: Orquidea Valencia : 1950 Current Concerns: Pt seen for return RNCM visit Earlier this week started with increased edema, blood blister of posterior right knee Grey Goods Tester ordered extra 50mg Torsemide 4 hrs after [...] home health nursing for wound care from [facility]. - nurse is due to come [...] in the SNF Will reach out to [facility] regarding getting waiver reinstated - pt reports a wrong box was checked on the original application so an appeal was done but denied - # for [facility] is [phone] Call placed to [facility] and with waiver phone number given for [place] - [phone] Spoke with associate sales representative there and not able to [...] No change in living situation Denies falls [facility] Completed this Visit: No. Routine visit [...] for bsg monitoring Gets pill packs from [employer] scale for daily wt monitoring Baseline wt around 224 - 226 lbs Aquacel ag and dsd to BLE open areas every other day Wound care managed by [facility] Interventions Provided: Home Intervention: Other; evaluation Reinforced current Plan of Care, including self-management and medication regimen Updated Advanced Care Planning Note Patient's 'Red Flags': Increased SOB Increased edema or open areas Increased weakness Patient Needs to Remember: Call [facility] at with any new or worsening health concerns or problems, red flag symptoms. Referrals Needed: Other none Follow Up: Is there cellular connectivity/connectivity in the home? Yes Does the patient have internet in the home? Yes Patient encouraged to call the intake phone number for all urgent but not emergent issues. Is the patient new to [facility] within the last 30 days? No, Assess appropriateness for upcoming telehealth visits. Cancel telehealth visits & schedule home visit with care team guide(s)as indicated. Provider is in agreement with Plan [...] Being a burden to family;Going to a longterm 01/19/2023 Being a burden to family;Going to a longterm The patient considers these as 'UNACCEPTABLE OUTCOMES': "Being a vegetable" (define below) 01/18/2022 The patient's cultural or spiritual BELIEFS that may affect health care decisions: none 09/10/2022 Source: Content from [employer] Aligning Care With What Matters Most: [...] 03/09/2022 short term only Source: Content from [employer] [facility] 20 minutes spent in direct ofvc-xn-pmpt discussion angel, Tatyana Delaney RN documented in this encounter Plan of Treatment Upcoming Encounters Date Type Department Care Team (Late st Contact Info) Description 05/12/2023 2:00 PM EST Office Visit Nephrology, [facility] [address] [facility] [place] [address] Luz Tobias MD [address] [facility] [place] [address] 05/26/2023 2:00 PM EST Laboratory Laboratory, [place] [address] [place] [phone] [place], [facility] [address] [place] [address] 05/27/2023 4:00 PM EST Home Visit [facility] 132 [facility] [place] [address] Tatyana Delaney, RN [address] [place] [address] 05/31/2023 1:30 PM EST Imaging Radiology [facility] 1st Floor, [place] [address] [place] [address] 06/07/2023 1:20 PM EST Office Visit Sleep Disorders Ctr [facility] 132 [facility] [place] [address] Vira Byrd, [address] [place] [address] 07/27/2023 3:00 PM EDT Office Visit Cardiology, [facility] [place] [address] Wood Wong PA-C [facility] [place] [address] 08/01/2023 2:00 PM EDT Laboratory Laboratory, [place] [address] [place] [address] [place] [address] [place] [address] 08/02/2023 2:00 PM EDT Office Visit Rheumatology [place] [address] [facility] [place] [address] Eliot Castelan CRNP [facility] [place] [address] 08/08/2023 12:30 PM EDT Office Visit Hematology/Oncology [facility] [place] [address] [place] [address] Miguel A Alcantar MD [address] [place] [address] 10/11/2023 5:40 PM EDT Office Visit Family [facility] [address] [place] [address] David Umanzor MD [address] [place] [address] 03/07/2024 1:00 PM EST Office Visit Cardiology, [facility] [address] [facility] [place] [address] Manolo Millan MD [address] [place] [address] Scheduled Procedures Name Priority Associated [...] Additional history exists CKD PHOS USE SMARTSET 44842 12/02/202311/10, 08/06/2022, 08/21/2021, Additional history exists CKD HGB USE SMARTSET 63360 03/25/202403/25, 03/25/2023, 02/28/2023, Additional history exists TSH [...] this encounter Medical Devices Implanted Type Area Vitamin Manager Device Identifier Shelf Expiration Date Model / Serial / Lot [employer] Medical Embosphere Micrspheres Implanted:Qty: 2 on 11/02/2019 by Ish Grove MD at [facility] Right: Abdomen [employer] 05/11/2022 S220GH / S220GH / [id number] Syr Pf 2ml Embospheres 100-300 - [id number] Implanted:Qty: 1 on 11/14/[address] [facility] [employer] [id number] 08/22/2023 S220GH / / [id number] Envelope Antibacterial Tyrx - [id number] Implanted:Qty: 1 on 12/29/2021 by Fatoumata Roland DO at [facility] [employer] : CRM [id number] 09/23/2022 CMR M6122 / / [id number] Stent Synergy Xd Mr 3.51i03ds - [id number] Implanted:Qty: 1 on 03/22/2022 by Katalina Pearce MD at [facility] [employer] [id number] 07/17/2023 [id number] / / [id number] Valve Berhane 3 Ultra 26mm - [id number] Implanted:Qty: 1 on 12/09/2022 by Manolo Millan MD at [facility] [employer] [id number] 12/04/2023 [id number] / / documented as of this encounter [...] the patient have Health Care Power of Clutch Specialist? No Care Teams Special Assets Officer Relationship Specialty Start Date End Date David Umanzor MD [address], [place] [phone] PCP - General 02/25/09 documented as of this encounter
--- OUTSIDE RECORDS SUMMARY | 2023-05-28 21:30 | External Medical Summary | Summary of Care ---
Author Name Unknown Organization [facility] Address [address] [place] [address] Phone [phone] Care Team Providers Care Sack Lifter Name Role Phone David Umanzor MD Primary Care Provider [phone]- [phone] Reason for Visit * Reason Onset Date Comments Advice 05/02/2023 Encounter Details Date Type Department Care Team (Late st Contact Info) Description 05/02/2023 Telephone [facility] [address] [place] [address] David Umanzor MD [address] [place] [address] Advice Allergies Active Allergy Reactions Criticality Noted Date Comments Bactrim 02/09/2010 Cephalosporins Anaphylaxis,Edema face/lips/tongue High 04/11/2009 Anaphylaxis to cefaclor, facial swelling to cephalexin. Ciprofloxacin Low 03/30/2021 Other reaction(s): Nausea Butorphanol Tartrate 02/09/2010 Heart racing Sulfa Antibiotics Hives High 05/22/2002 Other reaction(s): Hives Trimethoprim 04/15/2022 Other reaction(s): Hives documented as of this encounter (statuses as of 05/03/2023) Medications Medication Sig Dispensed Refills Start Date [...] 1 2 Active Blood Glucose Monitoring Suppl (Eletrogóes AUTOCODE BLOOD GLUCOSE) w/Device KITIndications:DM type 2 [...] Active Fluticasone Propionate 50 MCG/ACT Nasal Suspension (Flonase)Indications:Home Stager sanket rhinitis ADMINISTER 2 SPRAYS IN EACH [...] daily 400 Each 3 3 Active Creon 84436-19349 UNIT Oral Capsule Delayed Release Particles (Pancrelipase (Uui-Dlvp-Vunf))Indicatio ns:Pancreatic insufficiency TAKE ONE CAPSULE BY MOUTH [...] ([facility]),Coronary artery disease involving inaja coronary artery of inaja heart without angina pectoris,Nonrheumatic aortic valve stenosis,Cardiac pacemaker in situ,Tachy-wilfrido syndrome ([facility]) Take 1 Tablet by mouth at bedtime. [...] Active Gabapentin 300 MG Oral Capsule (Neurontin)Indications:Ac [place] tribe on chronic combined systolic and diastolic congestive [...] HYDROcodone-Acetaminophen 5-325 MG Oral TabletIndications:Atheros clerosis of inaja artery of left lower extremity with intermittent claudication (HCC),Pain of left lower extremity Take 1 Tablet by mouth every 6 hours as needed for Pain, Mild. 45 Tablet 0 4 Active LORazepam 0.5 MG Oral Tablet (Ativan)Indications:Anxie ty state TAKE 1 TABLET 3 TIMES A DAY NEEDED FOR ANXIETY 40 Tablet 1 4 Active Nystatin 380916 UNIT/GM External Powder (Nyamyc) APPLY TO AFFECTED AREAS UNDER THE BREASTS THREE TIMES A DAY NEEDED 30 g 1 4 Active Doxycycline Hyclate 100 MG Oral CapsuleIndications:Open wound of lower extremity, unspecified laterality, initial encounter Take 1 Capsule by mouth in the morning and 1 Capsule before bedtime. Do all this for 10 days. Until gone.. 20 Capsule 0 4 05/08/19 24 Active Sertraline HCl 25 MG Oral Tablet (Zoloft) Take 1 Tablet by mouth in the morning. 90 Tablet 3 4 Active metOLazone 2.5 MG Oral Tablet (Zaroxolyn) Take 1 Tablet by mouth in the morning. Daily for 5 days only.. 30 Tablet 0 4 Active documented as of this encounter (statuses as of 05/03/2023) Active Problems Problem Noted Date Diagnosed Date [...] to excess calories 0 08/09/2022 Atherosclerosis of inaja ar jania of left lower extremity with intermittent claudication 08/09/2022 Coronary artery disease invo lving inaja coronary artery of inaja heart with angina pectoris 03/22/2022 Last Assessment [...] 12/21/2016 Overview: Diabetic retinopathy Rheumatoid arthritis of [facility] sites without rheumatoid factor 01/26/2016 [...] -- AHI 17.1, significant hypoxia and PLMS [facility] Vitamin D deficiency 04/21/2011 Iron deficiency anemia 03/15/2011 Overview: ICD-10 update of inactive term Last Assessment & Plan: Last hemoglobin 11.4 on 08/06 -continue ferrous sulfate. Med list updated. High triglycerides 02/13/2004 Overview: TG's as high as 6400 Postsurgical hypothyroidism 02/13/2004 Last Assessment & Plan: Last TSH 0.9 on 04/13/2022 -continue Synthroid documented as of this encounter (statuses as of 05/03/2023) Resolved Problems Problem Noted Date Diagnosed Date [...] [facility] DETECT Study: Project # [id number], Production Control Technologist: Manny Santacruz, PhD. SUMMARY: Goal: Establish test [...] study staff at ; after hours Production Control Technologist via the [facility] cotton picking machine operator . Please contact study team before resolving/deleting from patients problem list. Study phone number: [phone]. Diagnosis changed due to Research Module. Go to Snapshot for study details. Encounter for examination fo r normal comparison and control in clinical research program 11/08/2018 12/10/2021 Overview: DO NOT DELETE - [facility] Study: Project # [id number], Production Control Technologist: Kevin Pearce, MS, MPH. SUMMARY: Goal: Establish [...] study staff at ; after hours Production Control Technologist via the [facility] cotton picking machine operator . - Please contact study team before resolving/deleting from patients problem list. Study phone number: [phone]. Diagnosis changed due to Research Module. Go [...] as of this encounter (statuses as of 05/03/2023) Immunizations Name Administration Dates Next Due COVID-19 [...] please send a script of Metolazone to [facility] in [place] and she will have a family member [...] Description 05/04/2023 11:30 AM EST Home Visit [facility], [facility] [address] [address] Tatyana Delaney RN [address] [address] 05/12/2023 2:00 PM EST Office Visit [facility] [address] [place] [address] Luz Tobias MD 200 [facility] [place], [place] [address] 05/26/2023 2:00 PM EST Laboratory Laboratory, [place] [address] [place] [address] [facility] [address] [place] [address] 05/31/2023 1:30 PM EST Imaging Radiology [facility] [place] [address] 06/07/2023 1:20 PM EST Office Visit [facility] C[facility] [phone] Vira Byrd, [facility] [address] 07/27/2023 3:00 PM EDT Office Visit Cardiology, [facility] [address] [place] [address] Wood Wong PA-C 132 [place] [address] 08/01/2023 2:00 PM EDT Laboratory Laboratory, [place] [address] [place] [address] [facility] [address] [place] [address] 08/02/2023 2:00 PM EDT Office Visit Rheumatology [place] [address] [facility] [place], [place] [address] Eliot Castelan CRNP [facility] [place] [address] 08/08/2023 12:30 PM EDT Office Visit Hematology/Oncology [facility] [address] [facility] [place] [address] Miguel A Alcantar MD [address] [facility] [place] [address] 10/11/2023 5:40 PM EDT Office Visit Family [facility] [address] [place] [address] David Umanzor MD [address] [place] [address] 03/07/2024 1:00 PM EST Office Visit Cardiology, [facility] [address] [place] [address] Manolo Millan MD [address] [place] [address] Scheduled Procedures Name Priority Associated [...] Additional history exists CKD PHOS USE SMARTSET 62217 12/02/202311/10, 08/06/2022, 08/21/2021, Additional history exists CKD HGB USE SMARTSET 63740 03/25/202403/25, 03/25/2023, 02/28/2023, Additional history exists TSH [...] this encounter Medical Devices Implanted Type Area Pole Peeling Machine Operator Device Identifier Shelf Expiration Date Model / Serial / Lot [facility] Medical Embosphere Micrspheres Implanted:Qty: 2 on 11/02/2019 by Ish Grove MD at [facility] Right: Abdomen [employer] 05/11/2022 S220GH / [id number] / [id number] Syr Pf 2ml Embospheres 100-300 - [id number] Implanted:Qty: 1 on 11/14/2020 at [facility] [employer] [id number] 08/22/2023 S220GH / / [id number] Envelope Antibacterial Tyrx - [id number] Implanted:Qty: 1 on 12/29/2021 by Fatoumata Roland DO at OR [facility] [employer] : CRM [id number] 09/23/2022 CMR [id number] / / [id number] Stent Synergy Xd Mr 3.26i87ph - [id number] Implanted:Qty: 1 on 03/22/2022 by Katalina Pearce MD at [facility] [employer] [id number] 07/17/2023 [id number] / / [id number] Valve Berhane 3 Ultra 26mm - [id number] Implanted:Qty: 1 on 12/09/2022 by Manolo Millan MD at [facility] [employer] [id number] 12/04/2023 [id number] / / documented as of this encounter [...] the patient have Health Care Power of Package Dye Stand Loader? No Care Teams Sack Lifter Relationship Specialty Start Date End Date David Umanzor MD [address] [place] [address] PCP - General 02/25/09 documented as of this encounter
--- OUTSIDE RECORDS SUMMARY | 2023-05-28 21:30 | External Medical Summary | Summary of Care ---
Author Name Unknown Organization [facility] [address] [address] Phone [phone] Care Team Providers Care Brewing Director Name Role Phone David Umanzor MD Primary Care Provider [phone]- [phone] Reason for Visit * Reason Onset Date Comments [facility]: Maintenance 05/04/2023 Encounter Details Date Type Department Care Team (Late st Contact Info) Description 05/04/2023 Telephone [facility], [facility] [address] [facility] [place] [address] [facility], Nurse [facility] 132 [place] [address] [facility]: Maintenance Allergies Active Allergy [...] 1 2 Active Blood Glucose Monitoring Suppl (EDUS AUTOCODE BLOOD GLUCOSE) w/Device KITIndications:DM type 2 [...] Active Fluticasone Propionate 50 MCG/ACT Nasal Suspension (Flonase)Indications:Graphite Grinder sanket rhinitis ADMINISTER 2 SPRAYS IN EACH [...] daily 400 Each 3 3 Active Creon 68475-53404 UNIT Oral Capsule Delayed Release Particles (Pancrelipase (Zjy-Kvhl-Rpzo))Indicatio ns:Pancreatic insufficiency TAKE ONE CAPSULE BY MOUTH [...] ([facility]),Coronary artery disease involving creek coronary artery of creek heart without angina pectoris,Nonrheumatic aortic valve [...] Active Gabapentin 300 MG Oral Capsule (Neurontin)Indications:Ac [place] on chronic combined systolic and diastolic congestive [...] HYDROcodone-Acetaminophen 5-325 MG Oral TabletIndications:Atheros clerosis of creek artery of left lower extremity with intermittent claudication (HCC),Pain of left lower extremity Take 1 Tablet by mouth every 6 hours as needed for Pain, Mild. 45 Tablet 0 4 Active LORazepam 0.5 MG Oral Tablet (Ativan)Indications:Anxie ty state TAKE 1 TABLET 3 TIMES A DAY NEEDED FOR ANXIETY 40 Tablet 1 4 Active Nystatin 935635 UNIT/GM External Powder (Nyamyc) APPLY TO AFFECTED [...] to excess calories 0 08/09/2022 Atherosclerosis of creek ar jania of left lower extremity with intermittent claudication 08/09/2022 Coronary artery disease invo lving creek coronary artery of creek heart with angina pectoris 03/22/2022 Last [...] 12/21/2016 Overview: Diabetic retinopathy Rheumatoid arthritis of [facility] sites without rheumatoid factor 01/26/2016 Last Assessment [...] Classifications: o With less than ordinary activity ([facility] CLASS III) Diagnostic Review: Recent [...] 11/12/2019 Overview: DO NOT DELETE [facility] Study: Project # [id number], Operations Administrative Assistant: Manny Santacruz, PhD. SUMMARY: Goal: Establish test [...] contact study staff at ; after hours Operations Administrative Assistant via the [facility] slubber machine operator . Please contact study team before resolving/deleting from patients problem list. Study phone number: [phone]. Diagnosis changed due to Research Module. Go to Snapshot for study details. Encounter for examination fo r normal comparison and control in clinical research program 11/08/2018 12/10/2021 Overview: DO NOT DELETE - [facility] Study: Project # [id number], Operations Administrative Assistant: Kevin Pearce, MS, MPH. SUMMARY: Goal: Establish [...] contact study staff at ; after hours Operations Administrative Assistant via the [facility] hospital slubber machine operator . - Please contact study team before resolving/deleting from patients problem list. Study phone number: [phone]. Diagnosis changed due to Research Module. Go [...] was going send a message to Dr. Umanzor to check if antibiotic needs to be changed. Tatyana also told patient to call [facility] if she did not hear from Dr. Umanzor by 3 PM today. Patient has not heard from Dr. Umanzor yet. Patient then said nurse changed dressing today on the wound on her left lower leg and there was a lot of purulent drainage noted. Patient said if new antibiotic needs to be ordered please [facility] [place]. Gayathri Malagon team sports sales associateRefrigeration Insulator [facility] documented in this encounter Plan of Treatment Upcoming Encounters Date Type Department Care Team (Late st Contact Info) Description 05/12/2023 2:00 PM EST Office Visit Nephrology, [facility] [address] [place] [address] Luz Tobias MD [address] [facility] [place] [address] 05/26/2023 2:00 PM EST Laboratory Laboratory, [place] [address] [place] [address] [place] [address] [place] [address] 05/27/2023 4:00 PM EST [facility] Visit [facility], [facility] [place] [address] Tatyana Delaney, RN 132 [facility] [place] [address] 05/31/2023 1:30 PM EST Imaging Radiology [facility] 1st Floor, [place] [address] [facility] [place] [address] 06/07/2023 1:20 PM EST Office Visit [facility] Disorders Ctr [facility] 132 [facility] [place] [address] Vira Byrd DO 132 [facility] [place] [address] 07/27/2023 3:00 PM EDT Office Visit Cardiology, [facility] [address] [facility] [place] [address] Wood Wong PA-C 132 [facility] [place] [address] 08/01/2023 2:00 PM EDT Laboratory Laboratory, [place] [address] [place] [address] [facility] [address] [place] [address] 08/02/2023 2:00 PM EDT Office Visit Rheumatology [place] [address] [facility] [place], [place] [address] Eliot Castelan CRNP [facility] [place] [address] 08/08/2023 12:30 PM EDT Office Visit Hematology/Oncology [facility] [address] [place] [address] Miguel A Alcantar MD [address] [place] [address] 10/11/2023 5:40 PM EDT Office Visit Family [facility] [address] [place] [address] David Umanzor MD [address] [place] [address] 03/07/2024 1:00 PM EST Office Visit Cardiology, [facility] [address] [place] [address] Manolo Millan MD [address] [place] [address] Scheduled Procedures Name Priority Associated [...] Additional history exists CKD PHOS USE SMARTSET 53381 12/02/202311/10, 08/06/2022, 08/21/2021, Additional history exists CKD HGB USE SMARTSET 89579 03/25/202403/25, 03/25/2023, 02/28/2023, Additional history exists TSH [...] this encounter Medical Devices Implanted Type Area Photovoltaic Installation Technician Device Identifier Shelf Expiration Date Model / Serial / Lot [employer] Medical Embosphere Micrspheres Implanted:Qty: 2 on 11/02/2019 by Ish Grove MD at [facility] Right: Abdomen [employer] 05/11/2022 S220GH / S220GH / [id number] Syr Pf 2ml Embospheres 100-300 - [id number] Implanted:Qty: 1 on 11/14/2020 at [facility] [employer] [id number] 08/22/2023 S220GH / / [id number] Envelope Antibacterial Tyrx - [id number] Implanted:Qty: 1 on 12/29/2021 by Fatoumata Roland DO at OR [facility] [employer] : CRM [id number] 09/23/2022 CMR M6122 / / [id number] Stent Synergy Xd Mr 3.25n84rg - [id number] Implanted:Qty: 1 on 03/22/2022 by Katalina Pearce MD at [facility] [employer] [id number] 07/17/2023 [id number] / / [id number] Valve Berhane 3 Ultra 26mm - [id number] Implanted:Qty: 1 on 12/09/2022 by Manolo Millan MD at [facility] [employer] [id number] 12/04/2023 [id number] / / documented as of this encounter [...] the patient have Health Care Power of Demand Equipment Repairer? No Care Teams Brewing Director Relationship Specialty Start Date End Date David Umanzor MD [address] [place] [address] PCP - General 02/25/09 documented as of this encounter
--- OUTSIDE RECORDS SUMMARY | 2023-05-28 21:30 | External Medical Summary | Summary of Care ---
Author Name Unknown Organization [facility] Address [address] [place] [address] Phone [phone] Care Team Providers Care Hypertrichologist Name Role Phone David Umanzor MD Primary Care Provider [phone]- [phone] Reason for Visit * Reason Onset Date Comments Advice 05/02/2023 Encounter Details Date Type Department Care Team (Late st Contact Info) Description 05/02/2023 Telephone [facility] [address] [place] [address] David Umanzor MD [address] [place] [address] Advice Allergies Active Allergy Reactions [...] 1 2 Active Blood Glucose Monitoring Suppl (LoopMe AUTOCODE BLOOD GLUCOSE) w/Device KITIndications:DM type 2 causing neurological disease, not at goal ([facility]) Test blood sugar 4 times daily Dx: E11.9 1 Kit 0 9 Active PRODIGY LANCETS 28G MISCIndications:DM type 2, not at goal ([facility]) TEST BLOOD SUAGER 4 TIMES A DAY [...] than 7.0% ([facility]),Type 2 diabetes mellitus with stage 3 chronic kidney disease, with long-term current use of insulin, unspecified whether stage 3a or 3b CKD ([facility]),DM type 2 causing neurological disease, not at goal ([facility]) TEST BLOOD SUGAR UP TO FOUR TIMES DAILY 400 Strip 3 2 Active Fluticasone Propionate 50 MCG/ACT Nasal Suspension (Flonase)Indications:Grocery Team Member sanket rhinitis ADMINISTER 2 SPRAYS IN EACH [...] of insulin ([facility]) Use to inject insulin 4 times daily 400 Each 3 3 Active Creon 30283-81058 UNIT Oral Capsule Delayed Release Particles (Pancrelipase (Wga-Dkhj-Axvs))Indicatio ns:Pancreatic insufficiency TAKE ONE CAPSULE BY MOUTH [...] of insulin ([facility]) Inject 10 units with breakfast, 4 units with lunch, and 10 units with PM meal. Inject 4 units if BG is >200. 30 mL 5 3 Active Acetaminophen 500 MG Oral TabletIndications:HFrEF (heart failure with reduced ejection fraction) ([facility]),Coronary artery disease involving resighini coronary artery of resighini heart without angina pectoris,Nonrheumatic aortic valve stenosis,Cardiac pacemaker in situ,Tachy-wilfrido syndrome ([facility]) Take 1 Tablet by mouth at bedtime. [...] of insulin ([facility]) Inject 30 units daily 45 mL 1 [...] HYDROcodone-Acetaminophen 5-325 MG Oral TabletIndications:Atheros clerosis of resighini artery of left lower extremity with intermittent claudication (HCC),Pain of left lower extremity Take 1 Tablet by mouth every 6 hours as needed for Pain, Mild. 45 Tablet 0 4 Active LORazepam 0.5 MG Oral Tablet (Ativan)Indications:Anxie ty state TAKE 1 TABLET 3 TIMES A DAY NEEDED FOR ANXIETY 40 Tablet 1 4 Active Nystatin 612218 UNIT/GM External Powder (Nyamyc) APPLY TO AFFECTED [...] to excess calories 0 08/09/2022 Atherosclerosis of resighini ar jania of left lower extremity with intermittent claudication 08/09/2022 Coronary artery disease invo lving resighini coronary artery of resighini heart with angina pectoris 03/22/2022 Last Assessment [...] 12/21/2016 Overview: Diabetic retinopathy Rheumatoid arthritis of [facility] sites without rheumatoid factor 01/26/2016 Last [...] -- AHI 17.1, significant hypoxia and PLMS [facility] Vitamin D deficiency 04/21/2011 Iron deficiency anemia [...] NOT DELETE [facility] DETECT Study: Project # [id number], Flat Cutter: Manny Santacruz, PhD. SUMMARY: Goal: Establish [...] study staff at ; after hours Flat Cutter via the [facility] hospital shot blast equipment operator . Please contact study team before resolving/deleting from patients problem list. Study phone number: [phone]. Diagnosis changed due to Research Module. Go to Snapshot for study details. Encounter for examination fo r normal comparison and control in clinical research program 11/08/2018 12/10/2021 Overview: DO NOT DELETE - [facility] Study: Project # [id number], Flat Cutter: Kevin Pearce, MS, MPH. SUMMARY: Goal: [...] study staff at ; after hours Flat Cutter via the [facility] shot blast equipment operator . - Please contact study team before resolving/deleting from patients problem list. Study phone number: [phone]. Diagnosis changed due to Research Module. Go [...] a script of Metolazone to [facility] in [place] and she will have a family member [...] Description 05/04/2023 11:30 AM EST Home Visit [facility] [place], [facility] [address] [place] [address] Tatyana Delaney RN [address] [place] [address] 05/12/2023 2:00 PM EST Office Visit [facility] [address] [place] [address] Luz Tobias MD [address] [facility] [place], [place] [address] 05/26/2023 2:00 PM EST Laboratory Laboratory, [place] [address] [place] [address] [facility] [address] [place] [address] 05/31/2023 1:30 PM EST Imaging Radiology [facility] 1st [facility] [address] 06/07/2023 1:20 PM EST Office Visit [facility]tr [facility] [address] [facility] [phone] Vira Byrd, [facility] [address] 07/27/2023 3:00 PM EDT Office Visit Cardiology, [facility] 132 [place] [address] Wood Wong PA-C 132 [place] [address] 08/01/2023 2:00 PM EDT Laboratory Laboratory, [place] [address] [place] [address] [facility] [address] [place] [address] 08/02/2023 2:00 PM EDT Office Visit Rheumatology [place] [address] [facility] [place], [place] [address] Eliot Castelan CRNP [facility] [place] [address] 08/08/2023 12:30 PM EDT Office Visit Hematology/Oncology [facility] [address] [facility] [place] [address] Miguel A Alcantar MD [address] [facility] [place] [address] 10/11/2023 5:40 PM EDT Office Visit Family [facility] [address] [place] [address] David Umanzor MD [address] [place] [address] 03/07/2024 1:00 PM EST Office Visit Cardiology, [facility] [address] [place] [address] Manolo Millan MD [address] [place] [address] Scheduled Procedures Name Priority Associated [...] Additional history exists CKD PHOS USE SMARTSET 78040 12/02/202311/10, 08/06/2022, 08/21/2021, Additional history exists CKD HGB USE SMARTSET 51781 03/25/202403/25, 03/25/2023, 02/28/2023, Additional history exists TSH [...] this encounter Medical Devices Implanted Type Area Chlorine Cells Operator Device Identifier Shelf Expiration Date Model / Serial / Lot Solasta Medical Embosphere Micrspheres Implanted:Qty: 2 on 11/02/2019 by Ish Grove MD at [facility] Right: Abdomen [employer] 05/11/2022 S220GH / S220GH / [id number] Syr Pf 2ml Embospheres 100-300 - [id number] Implanted:Qty: 1 on 11/14/2020 at [facility] [employer] [id number] 08/22/2023 S220GH / / [id number] Envelope Antibacterial Tyrx - [id number] Implanted:Qty: 1 on 12/29/2021 by Fatoumata Roland DO at [facility] [employer] : CRM [id number] 09/23/2022 CMR M6122 / / [id number] Stent Synergy Xd Mr 3.15w13ou - [id number] Implanted:Qty: 1 on 03/22/2022 by Katalina Pearce MD at [facility] [employer] [id number] 07/17/2023 [id number] / / [id number] Valve Berhane 3 Ultra 26mm - [id number] Implanted:Qty: 1 on 12/09/2022 by Manolo Millan MD at [facility] [employer] [id number] 12/04/2023 [id number] / / documented as of this encounter [...] the patient have Health Care Power of Concrete Engineer? No Care Teams Hypertrichologist Relationship Specialty Start Date End Date David Umanzor MD [address] [place] [address] PCP - General 02/25/09 documented as of this encounter
--- OUTSIDE RECORDS SUMMARY | 2023-05-28 21:30 | External Medical Summary | Summary of Care ---
Author Name Unknown Organization [facility] Address [address] [facility] [place] [address] Phone [phone] Care Team Providers Care Psychiatric Secretary Name Role Phone David Umanzor MD Primary Care Provider +1- [phone] Reason for Visit * Reason Onset Date Comments [facility]: Maintenance 03/30/2023 Encounter Details Date Type Department Care Team (Late st Contact Info) Description 03/30/2023 Telephone [facility], [facility] [address] [place] [address] Tatyana Delaney RN [address] [place] [address] [facility]: Maintenance Allergies Active Allergy [...] 03/21/20 12 Active Blood Glucose Monitoring Suppl (PagaTodo MobileIGY AUTOCODE BLOOD GLUCOSE) w/Device KITIndications:DM type 2 causing neurological disease, not at goal ([facility]) Test blood sugar 4 times daily Dx: E11.9 1 Kit 0 03/19/20 19 Active PRODIGY LANCETS 28G MISCIndications:DM type 2, not at goal ([facility]) TEST BLOOD SUAGER 4 TIMES A DAY [...] A1c goal of less than 7.0% ([facility]),Type 2 diabetes mellitus with stage 3 chronic kidney disease, with long-term current use of insulin, unspecified whether stage 3a or 3b CKD ([facility]),DM type 2 causing neurological disease, not at goal ([facility]) TEST BLOOD SUGAR UP TO FOUR TIMES [...] daily 400 Each 3 08/07/19 Active Creon 59149-88618 UNIT Oral Capsule Delayed Release Particles (Pancrelipase (Six-Xdub-Jwvf))Indicat ions:Pancreatic insufficiency TAKE ONE CAPSULE BY MOUTH [...] (heart failure with reduced ejection fraction) ([facility]),Coronary artery disease involving houl[place] coronary artery of [place]oulton heart without angina pectoris,Nonrheumatic aortic valve stenosis,Cardiac pacemaker in situ,Tachy-wilfrido syndrome ([facility]) Take 1 Tablet by mouth at bedtime. [...] without long-term current use of insulin ([facility]) Inject 30 units daily 45 mL 1 [...] systolic and diastolic congestive heart failure ([facility]) Take 1 Capsule by mouth in the [...] Tab 3 03/09/20 10 024 Discontinued Nystatin 176584 UNIT/GM External Powder (Nystop) APPLY TO AFFECTED AREAS UNDER THE BREASTS THREE TIMES PER DAY NEEDED 30 g 1 09/14/19 23 024 Discontinued LORazepam 0.5 MG Oral Tablet (Ativan)Indications:Anx iety state TAKE 1 TABLET 3 TIMES A DAY NEEDED FOR ANXIETY 40 Tablet 1 02/24/20 23 024 Discontinued(R efill) HYDROcodone-Acetaminoph en 5-325 MG Oral TabletIndications:Ather osclerosis of houlton artery of left lower extremity with intermittent [...] to excess calories 0 08/09/2022 Atherosclerosis of houlton ar jania of left lower extremity with intermittent claudication 08/09/2022 Coronary artery disease invo lving houlton coronary artery of houlton heart with angina pectoris 03/22/2022 Last Assessment [...] 12/21/2016 Overview: Diabetic retinopathy Rheumatoid arthritis of [facility] sites without rheumatoid factor 01/26/2016 Last Assessment [...] [facility] DETECT Study: Project # [id number], Reduction Furnace Operator Helper: Manny Santacruz, PhD. SUMMARY: Goal: Establish [...] contact study staff at ; after hours Reduction Furnace Operator Helper via the [facility] simplex operator . Please contact study team before resolving/deleting from patients problem list. Study phone number: [phone]. Diagnosis changed due to Research Module. Go to Snapshot for study details. Encounter for examination fo r normal comparison and control in clinical research program 11/08/2018 12/10/2021 Overview: DO NOT DELETE - [facility] Study: Project # [id number], Reduction Furnace Operator Helper: Kevin Pearce, MS, MPH. SUMMARY: Goal: [...] contact study staff at ; after hours Reduction Furnace Operator Helper via the [facility] simplex operator . - Please contact study team before resolving/deleting from patients problem list. Study phone number: [phone]. Diagnosis changed due to Research Module. Go [...] Mccray OSA - 05/03/2023 2:53 PM EST [employer] [facility] calling to let provider know that this ordered was cancelled due to supplier unableto reach the pt after 3 attempts. Please advise. * Telephone Encounter - Nallely Tompkins LPN - 04/01/2023 3:04 PM EST Submitted through [employer] [facility] * Telephone Encounter - David Umanzor MD [...] Can you please order and send to [employer] [facility] ? Thanks! documented in this encounter Plan of Treatment Upcoming Encounters Date Type Department Care Team (Late st Contact Info) Description 05/04/2023 11:30 AM EST Home Visit [facility], [address] [place] [address] Tatyana Delaney, RN [address] [place] [address] 05/12/2023 2:00 PM EST Office Visit Nephrology, [facility] [address] [place] [address] Luz Tobias MD 200 [facility] [place], [place] [address] 05/26/2023 2:00 PM EST Laboratory Laboratory, [place] [address] [place] [address] [facility] [address] [place] [address] 05/31/2023 1:30 PM EST Imaging Radiology [facility] 1st [facility] [address] [facility] [place] [address] 06/07/2023 1:20 PM EST Office Visit Sleep Disorders Ctr [facility] [address] [facility] [place] [address] Vira Byrd, [address] [place], [place] [address] 07/27/2023 3:00 PM EDT Office Visit Cardiology, [facility] [address] [facility] [place] [address] Wood Wong PA-C [address] [place] [address] 08/01/2023 2:00 PM EDT Laboratory Laboratory, [place] [address] [place] [address] [facility] [address] [place] [address] 08/02/2023 2:00 PM EDT Office Visit Rheumatology [facility] [address] [place] [address] Eliot Castelan CRNP [address] [facility] [place] [address] 08/08/2023 12:30 PM EDT Office Visit Hematology/Oncology [facility] 200 [facility] [place], [place] [address] Miguel A Alcantar MD 200 [facility] [place], [place] [address] 10/11/2023 5:40 PM EDT [facility] [address] [place] [address] David Umanzor MD [address] [place] [address] 03/07/2024 1:00 PM EST Office Visit Cardiology, [facility] [address] [place] [address] Manolo Millan MD [address] [place] [address] Scheduled Procedures Name Priority Associated [...] Additional history exists CKD PHOS USE SMARTSET 01800 12/02/202311/10, 08/06/2022, 08/21/2021, Additional history exists CKD HGB USE SMARTSET 40408 03/25/202403/25, 03/25/2023, 02/28/2023, Additional history exists TSH [...] this encounter Medical Devices Implanted Type Area Furnace Tender Device Identifier Shelf Expiration Date Model / Serial / Lot [facility] Medical Embosphere Micrspheres Implanted:Qty: 2 on 11/02/2019 by Ish Grove MD at [facility] Right: Abdomen [employer] 05/11/2022 S220GH / S220GH / [id number] Syr Pf 2ml Embospheres 100-300 - [id number] Implanted:Qty: 1 on 11/14/2020 at [facility] [employer] [id number] 08/22/2023 S220GH / / [id number] Envelope Antibacterial Tyrx - [id number] Implanted:Qty: 1 on 12/29/2021 by Fatoumata Roland DO at [facility] [employer] : CRM [id number] 09/23/2022 CMR M6122 / / [id number] Stent Synergy Xd Mr 3.93k35cb - [id number] Implanted:Qty: 1 on 03/22/2022 by Katalina Pearce MD at [facility] [employer] [id number] 07/17/2023 [id number] / / [id number] Valve Berhane 3 Ultra 26mm - [id number] Implanted:Qty: 1 on 12/09/2022 by Manolo Millan MD at [facility] [employer] [id number] 12/04/2023 [id number] / / documented as of this encounter [...] the patient have Health Care Power of Medical Delivery Driver? No Care Teams Psychiatric Secretary Relationship Specialty Start Date End Date David Umanzor MD [address] [place] [address] PCP - General 02/25/09 documented as of this encounter
--- OUTSIDE RECORDS SUMMARY | 2023-05-28 21:30 | External Medical Summary | Summary of Care ---
Author Name Unknown Organization [facility] Address [address] [place] [place] [address] Phone [phone] Care Team Providers Care Polysomnography Technician Name Role Phone David Umanzor MD Primary Care Provider [phone]- [phone] Encounter Details Date Type Department Care Team (Late st Contact Info) Description 05/04/2023 Population Health External Data Unspecified Department Allergies [...] 1 2 Active Blood Glucose Monitoring Suppl (Yeti DataIGY AUTOCODE BLOOD GLUCOSE) w/Device KITIndications:DM type 2 [...] Active Fluticasone Propionate 50 MCG/ACT Nasal Suspension (Flonase)Indications:Glass Mould Cleaner sanket rhinitis ADMINISTER 2 SPRAYS IN EACH [...] daily 400 Each 3 3 Active Creon 49467-60225 UNIT Oral Capsule Delayed Release Particles (Pancrelipase (Jdm-Sscl-Mczz))Indicatio ns:Pancreatic insufficiency TAKE ONE CAPSULE BY MOUTH [...] [facility]),Coronary artery disease involving [place] coronary artery of [place] heart without angina pectoris,Nonrheumatic aortic valve stenosis,Cardiac pacemaker in situ,Tachy-wilfrido syndrome ([facility]) Take 1 Tablet by mouth at [...] Active Gabapentin 300 MG Oral Capsule (Neurontin)Indications:Ac algaaciq on chronic combined systolic and diastolic congestive [...] HYDROcodone-Acetaminophen 5-325 MG Oral TabletIndications:Atheros clerosis of [place] artery of left lower extremity with intermittent claudication (HCC),Pain of left lower extremity Take 1 Tablet by mouth every 6 hours as needed for Pain, Mild. 45 Tablet 0 4 Active LORazepam 0.5 MG Oral Tablet (Ativan)Indications:Anxie ty state TAKE 1 TABLET 3 TIMES A DAY NEEDED FOR ANXIETY 40 Tablet 1 4 Active Nystatin 574911 UNIT/GM External Powder (Nyamyc) APPLY TO AFFECTED [...] to excess calories 0 08/09/2022 Atherosclerosis of [place] ar jania of left lower extremity with intermittent claudication 08/09/2022 Coronary artery disease invo lving [place] coronary artery of [place] heart with angina pectoris 03/22/2022 Last Assessment [...] Diabetic retinopathy Rheumatoid arthritis of [facility] sites without rheumatoid factor 01/26/2016 Last [...] [facility] DETECT Study: Project # [id number], Supervisory Historian: Manny Santacruz, PhD. SUMMARY: Goal: Establish test [...] contact study staff at ; after hours Supervisory Historian via the [facility] gas substation operator . Please contact study team before resolving/deleting from patients problem list. Study phone number: [phone]. Diagnosis changed due to Research Module. Go to Snapshot for study details. Encounter for examination fo r normal comparison and control in clinical research program 11/08/2018 12/10/2021 Overview: DO NOT DELETE - [facility] Study: Project # [id number], Supervisory Historian: Kevin Pearce, MS, MPH. SUMMARY: Goal: Establish [...] contact study staff at ; after hours Supervisory Historian via the [facility] gas substation operator . - Please contact study team before resolving/deleting from patients problem list. Study phone number: [phone]. Diagnosis changed due to Research Module. Go [...] AM EST [facility] [address] [place] [address] Tatyana Delaney, RN [address] [place] [address] 05/12/2023 2:00 PM EST Office Visit Nephrology, [place] Mar[place] 200 [facility] [place] [address] Luz Tobias MD 200 [facility] [place] [address] 05/26/2023 2:00 PM EST Laboratory Laboratory, [place] [address] [place] [address] [place] [address] [place] [address] 05/31/2023 1:30 PM EST Imaging Radiology [facility] 1st [facility] 132 [facility] [place] [address] 06/07/2023 1:20 PM EST Office Visit Sleep Disorders Ctr [facility] 132 [facility] [place] [phone] Vira Byrd DO [facility] [place] [address] 07/27/2023 3:00 PM EDT Office Visit Cardiology, [facility] [address] [place] [address] Wood Wong PA-C [address] [place] [address] 08/01/2023 2:00 PM EDT Laboratory Laboratory, [place] [address] [place] [address] [facility] [address] [place] [address] 08/02/2023 2:00 PM EDT Office Visit Rheumatology [facility] 25[address] [facility] [place], [place] [address] Eliot Castelan CRNP 25[address] [facility] [place], [place] [address] 08/08/2023 12:30 PM EDT Office Visit Hematology/Oncology [facility] 200 [facility] [place] [address] Miguel A Alcantar MD 200 [facility] [place] [address] 10/11/2023 5:40 PM EDT Office Visit Family Practice, [place] [address] [place] [address] David Umanzor MD [address] [place] [address] 03/07/2024 1:00 PM EST Office Visit Cardiology, [facility] [address] [place] [address] Manolo Millan MD [address] [place] [address] Scheduled Procedures Name Priority Associated [...] 03/24/2023, Additional history exists HbA1c 10/24/2023 04/25/2023, 04/2 11/2022, 04/13/2022, Additional history exists CKD PHOS USE SMARTSET 76367 12/02/2023 082 06/2022, 08/06/2022, 08/21/2021, Additional history exists CKD HGB USE SMARTSET 25311 03/25/202403/25, 03/25/2023, 02/28/2023, Additional history exists TSH [...] encounter Medical Devices Implanted Type Area Software Development Leader Device Identifier Shelf Expiration Date Model / Serial / Lot iHELP World Medical Embosphere Micrspheres Implanted:Qty: 2 on 11/02/2019 by Ish Grove MD at [facility] Right: Abdomen [employer] 05/11/2022 S220GH / S220GH / [id number] Syr Pf 2ml Embospheres 100-300 - [id number] Implanted:Qty: 1 on 11/14/[address] [facility] [employer] [id number] 08/22/2023 S220GH / / [id number] Envelope Antibacterial Tyrx - [id number] Implanted:Qty: 1 on 12/29/2021 by Fatoumata Roland DO at [facility] [employer] [facility] [id number] 09/23/2022 CMR M6122 / / [id number] Stent Synergy Xd Mr 3.70u71pz - [id number] Implanted:Qty: 1 on 03/22/2022 by Katalina Pearce MD at [facility] [employer] [id number] 07/17/2023 [id number] / / [id number] Valve Berhane 3 Ultra 26mm - [id number] Implanted:Qty: 1 on 12/09/2022 by Manolo Millan MD at [facility] [employer] [id number] 12/04/2023 [id number] / / documented as of this encounter [...] the patient have Health Care Power of Cleaner And Dyer? No Care Teams Polysomnography Technician Relationship Specialty Start Date End Date David Umanzor MD [address] [place] [address] PCP - General 02/25/09 documented as of this encounter
--- OUTSIDE RECORDS SUMMARY | 2023-05-28 21:30 | External Medical Summary | Summary of Care ---
Author Name Unknown Organization [facility] Address [address] [facility] [place] [place] [address] Phone [phone] Care Team Providers Care Health Professional Name Role Phone Millie Cage MD Primary Care Provider [phone]- [phone] Reason for Visit * Reason Onset Date Comments [facility]: Maintenance 05/04/2023 Encounter Details Date Type Department Care Team (Late st Contact Info) Description 05/04/2023 Telephone [facility], [facility] [address] [facility] [place] [address] [facility], Nurse [facility] [address] [place] [address] [facility]: Maintenance Allergies Active Allergy [...] 1 2 Active Blood Glucose Monitoring Suppl (Coubic[employer] AUTOCODE BLOOD GLUCOSE) w/Device KITIndications:DM type [...] daily 400 Each 3 3 Active Creon 79466-27305 UNIT Oral Capsule Delayed Release Particles (Pancrelipase (Gai-Brvz-Toqm))Indicati ons:Pancreatic insufficiency TAKE ONE CAPSULE BY MOUTH [...] [facility]),Coronary artery disease involving [place] coronary artery of [place] heart without angina pectoris,Nonrheumatic aortic valve stenosis,Cardiac pacemaker in situ,Tachy-wilfrido syndrome ([facility]) Take 1 Tablet by mouth at bedtime. [...] systolic and diastolic congestive heart failure ([facility]) Take 1 Capsule by mouth in the [...] n 5-325 MG Oral TabletIndications:Athero sclerosis of [place] artery of left lower extremity with intermittent claudication (HCC),Pain of left lower extremity Take 1 Tablet by mouth every 6 hours as needed for Pain, Mild. 45 Tablet 0 4 Active LORazepam 0.5 MG Oral Tablet (Ativan)Indications:Anxi ety state TAKE 1 TABLET 3 TIMES A DAY NEEDED FOR ANXIETY 40 Tablet 1 4 Active Nystatin 455796 UNIT/GM External Powder (Nyamyc) APPLY TO AFFECTED [...] to excess calories 0 08/09/2022 Atherosclerosis of [place] ar jania of left lower extremity with intermittent claudication 08/09/2022 Coronary artery disease invo lving [place] coronary artery of [place] heart with angina pectoris 03/22/2022 Last Assessment [...] Overview: Diabetic retinopathy Rheumatoid arthritis of [facility] sites without rheumatoid factor 01/26/2016 Last [...] 11/08/2018 11/12/2019 Overview: DO NOT DELETE [facility] COY Study: Project # [id number], Glove Maker: Manny Santacruz, PhD. SUMMARY: Goal: Establish [...] contact study staff at ; after hours Glove Maker via the [facility] hospital subgrade roller operator . Please contact study team before resolving/deleting from patients problem list. Study phone number: [phone]. Diagnosis changed due to Research Module. Go to Snapshot for study details. Encounter for examination fo r normal comparison and control in clinical research program 11/08/2018 12/10/2021 Overview: DO NOT DELETE - [facility] DETECT Study: Project # [id number], Glove Maker: Kevin Pearce, MS, MPH. SUMMARY: Goal: [...] contact study staff at ; after hours Glove Maker via the [facility] hospital subgrade roller operator . - Please contact study team before resolving/deleting from patients problem list. Study phone number: [phone]. Diagnosis changed due to Research Module. Go [...] encounter Miscellaneous Notes * Addendum Note - Millie Cage MD [...] a home visit earlier today with Tatyana BARNETT and was informed of left leg wound culture results. Patient states she has been taking Doxycyline since it was ordered on 04/28, but Tatyana told her Doxycyline is not listed on antibiotic sensitivity list and she was going send a message to Dr. Cage to check if antibiotic needs to be changed. Tatyana also told patient to call [facility] if she did not hear from Dr. Cage by 3 PM today. Patient has not heard from Dr. Cage yet. Patient then said nurse changed dressing today on the wound on her left lower leg and there was a lot of purulent drainage noted. Patient said if new antibiotic needs to be ordered please send to [facility] ,[address] in [place]. Gayathri Malagon RN Felting Machine Operator Helper [facility] documented in this encounter Plan of Treatment Upcoming Encounters Date Type Department Care Team (Late st Contact Info) Description 05/12/2023 2:00 PM EST Office Visit Nephrology, [facility] [address] [facility] [place] [address] Luz Tobias MD [address] [facility] [place] [address] 05/26/2023 2:00 PM EST Laboratory Laboratory, [address] [address] [place] [address] [place] [address] 05/27/2023 4:00 PM EST Home Visit [facility] [address] [facility] [place] [address] Tatyana Delaney, RN 132 [facility] [place] [address] 05/31/2023 1:30 PM EST Imaging Radiology [address], [place] 132 [facility] [place] [address] 06/07/2023 1:20 PM EST Office Visit Sleep Disorders Ctr [facility] [address] [place] [address] Vira Byrd DO [address] [place] [address] 07/27/2023 3:00 PM EDT Office Visit Cardiology, [facility] [address] [facility] [place], [place] [address] Wood Wong PA-C [address] [place] [address] 08/01/2023 2:00 PM EDT Laboratory Laboratory, [place] [address] [place] [address] [facility] [address] [place] [address] 08/02/2023 2:00 PM EDT Office Visit Rheumatology [place] [address] [facility] [place] [address] Eliot Castelan CRNP [address] [facility] [place] [address] 08/08/2023 12:30 PM EDT Office Visit Hematology/Oncology [facility] [address] [place] [address] Miguel A Alcantar MD [address] [place] [address] 10/11/2023 5:40 PM EDT Office Visit Family Practice, [place] [address] [place] [address] Millie Cage MD [address] [place] [address] 03/07/2024 1:00 PM EST Office Visit Cardiology, [facility] [address] [place] [address] Manolo Millan MD [address] [facility] [place] [address] Scheduled Procedures Name Priority Associated Diagnoses [...] Additional history exists CKD PHOS USE SMARTSET 07072 12/02/202311/10, 08/06/2022, 08/21/2021, Additional history exists CKD HGB USE SMARTSET 86514 03/25/202403/25, 03/25/2023, 02/28/2023, Additional history exists TSH [...] this encounter Medical Devices Implanted Type Area Inspector Finishing Device Identifier Shelf Expiration Date Model / Serial / Lot [employer] Medical Embosphere Micrspheres Implanted:Qty: 2 on 11/02/2019 by Ish Grove MD at [facility] Right: Abdomen [employer] 05/11/2022 S220GH / [id number] / [id number] Syr Pf 2ml Embospheres 100-300 - [id number] Implanted:Qty: 1 on 11/14/2020 at [facility] [employer] [id number] 08/22/2023 S220GH / / [id number] Envelope Antibacterial Tyrx - [id number] Implanted:Qty: 1 on 12/29/2021 by Fatoumata Roland DO at [facility] [employer] : CRM [id number] 09/23/2022 CMR M6122 / / [id number] Stent Synergy Xd Mr 3.50d64hl - [id number] Implanted:Qty: 1 on 03/22/2022 by Katalina Pearce MD at [facility] [employer]mio [id number] 07/17/2023 [id number] Valve Berhane 3 Ultra 26mm - [id number] Implanted:Qty: 1 on 12/09/2022 by Manolo Millan MD at [facility] [employer] [id number] 12/04/2023 [id number] / / documented as of this encounter [...] patient have Health Care Power of Customer Trainer? No Care Teams Health Professional Relationship Specialty Start Date End Date Millie Cage MD [address] [place] [address] PCP - General 02/25/09 documented as of this encounter
--- OUTSIDE RECORDS SUMMARY | 2023-05-28 21:31 | External Medical Summary | Summary of Care ---
Author Name Unknown Organization [facility] Address [address] [place] [address] Phone [phone] Care Team Providers Care Pilates Instructor Name Role Phone David Umanzor MD Primary Care Provider +1- [phone] Reason for Visit * Reason Onset Date Comments FYI 01/31/2023 Encounter Details Date Type Department Care Team (Late st Contact Info) Description 01/31/2023 Telephone [facility] [address] [place] [address] David Umanzor MD [address] [place] [address] FYI Allergies Active Allergy Reactions Criticality Noted Date Comments Bactrim 02/09/2010 Cephalosporins Anaphylaxis,Edema face/lips/tongue High 04/11/2009 Anaphylaxis to cefaclor, facial swelling to cephalexin. Ciprofloxacin Low 03/30/2021 Other reaction(s): Nausea Butorphanol Tartrate 02/09/2010 Heart racing Sulfa Antibiotics Hives High 05/22/2002 Other reaction(s): Hives Trimethoprim 04/15/2022 Other reaction(s): Hives documented as of this encounter (statuses as of 05/02/2023) Medications Medication Sig Dispensed Refills Start Date [...] 2 causing neurological disease, not at goal ([facility]) Test blood sugar 4 times daily Dx: E11.9 1 Kit 0 03/19/20 19 Active PRODIGY LANCETS 28G MISCIndications:DM type 2, not at goal ([facility]) TEST BLOOD SUAGER 4 TIMES A DAY [...] hemoglobin A1c goal of less than 7.0% ([facility]),Type 2 diabetes mellitus with stage 3 chronic kidney disease, with long-term current use of insulin, unspecified whether stage 3a or 3b CKD ([facility]),DM type 2 causing neurological disease, not at goal ([facility]) TEST BLOOD SUGAR UP TO FOUR TIMES [...] 400 Each 3 08/07/19 23 Active Creon 93046-82295 UNIT Oral Capsule Delayed Release Particles (Pancrelipase (Xwn-Ucke-Iwee))Indicat ions:Pancreatic insufficiency TAKE ONE CAPSULE BY MOUTH [...] TabletIndications:HFrEF (heart failure with reduced ejection fraction) ([facility]),Coronary artery disease involving [place] coronary artery of [place] heart without angina pectoris,Nonrheumatic aortic valve stenosis,Cardiac pacemaker in situ,Tachy-wilfrido syndrome ([facility]) Take 1 Tablet by mouth at bedtime. [...] coma, without long-term current use of insulin ([facility]) Inject 30 units daily 45 mL 1 [...] combined systolic and diastolic congestive heart failure ([facility]) Take 1 Capsule by mouth in the morning and 1 Capsule before bedtime. 180 Capsule 1 01/18/20 23 Active Magnesium Oxide -Mg Supplement 400 (240 Mg) MG Oral Tablet (Mag-Ox) Take 1 Tablet by mouth in the morning. 90 Tablet 3 01/20/20 23 Active B-12 1500 MCG PO TBCRIndications:Pernici ous anemia one pill each day 90 Tab 3 03/09/20 10 024 Discontinued predniSONE 5 MG Oral Tablet (Deltasone) TAKE 1 TABLET BY MOUTH DAILY 90 Tablet 4 03/01/20 22 023 Discontinued Clopidogrel Bisulfate 75 MG Oral Tablet (pLAVix) Take 1 Tablet (75 mg) by mouth in the morning. 90 Tablet 3 03/23/20 22 023 Discontinued(R efill) Vitamin C 500 MG Oral Tablet (Ascorbic Acid) Take 1 Tablet by mouth in the morning. 0 023 Discontinued(R efill) Hydroxychloroquine Sulfate 200 MG Oral Tablet (Plaquenil)Indications: Encounter for therapeutic drug monitoring TAKE TWO TABLETS BY MOUTH DAILY AT BEDTIME 180 Tablet 0 08/28/19 23 023 Discontinued Erythromycin 5 MG/GM Ophthalmic OintmentIndications:Exp osure keratoconjunctivitis of both eyes Instill 0.25 Inches into both eyes in the morning and 0.25 Inches at noon and 0.25 Inches in the evening and 0.25 Inches before bedtime. Dispense 4 tubes at a time.. 28 g 6 09/14/19 23 023 Discontinued(R efill) Nystatin 893415 UNIT/GM External Powder (Nystop) APPLY TO AFFECTED AREAS UNDER THE BREASTS THREE TIMES PER DAY NEEDED 30 g 1 09/14/19 23 024 Discontinued Methotrexate Sodium 2.5 MG Oral TabletIndications:Rheum atoid arthritis of multiple sites without rheumatoid factor (HCC) TAKE 4 TABLETS BY MOUTH ONCE A WEEK 48 Tablet 1 09/25/19 23 023 Discontinued Torsemide 100 MG Oral Tablet (Demadex) Take 1 Tablet by mouth in the morning. 90 Tablet 3 01/15/20 23 023 Discontinued(R efill) Ferrous Sulfate 325 (65 Fe) MG Oral Tablet Take 1 Tablet by mouth daily with breakfast. 0 023 Discontinued(R efill) Potassium Chloride ER 20 MEQ Oral Tablet Extended ReleaseIndications:Acut e on chronic combined systolic and diastolic congestive heart failure (HCC) Take 2 Tablets by mouth every morning AND 1 Tablet every evening. 270 Tablet 3 01/18/20 23 023 Discontinued(R efill) HYDROcodone-Acetaminoph en 5-325 MG Oral TabletIndications:Ather osclerosis of [place] artery of left lower extremity with intermittent claudication (HCC),Pain of left lower extremity Take 1 Tablet by mouth every 6 hours as needed for Pain, Mild. 30 Tablet 0 01/29/20 23 023 Discontinued(R efill) LORazepam 0.5 MG Oral Tablet (Ativan)Indications:Anx iety state TAKE 1 TABLET 3 TIMES A DAY NEEDED FOR ANXIETY 40 Tablet 1 01/29/20 23 023 Discontinued(R efill) documented as of this encounter (statuses as of 05/02/2023) Active Problems Problem Noted Date Diagnosed Date [...] to excess calories 0 08/09/2022 Atherosclerosis of [place] ar jania of left lower extremity with intermittent claudication 08/09/2022 Coronary artery disease invo lving [place] coronary artery of [place] heart with angina pectoris 03/22/2022 Last Assessment [...] Diabetic retinopathy Rheumatoid arthritis of [facility] sites without rheumatoid factor 01/26/2016 Last [...] as of this encounter (statuses as of 05/02/2023) Resolved Problems Problem Noted Date Diagnosed Date [...] [facility] DETECT Study: Project # [id number], Universal Branch Consultant: Manny Santacruz, PhD. SUMMARY: Goal: Establish test [...] contact study staff at ; after hours Universal Branch Consultant via the [facility] safety pin assembling machine operator . Please contact study team before resolving/deleting from patients problem list. Study phone number: [phone]. Diagnosis changed due to Research Module. Go to Snapshot for study details. Encounter for examination fo r normal comparison and control in clinical research program 11/08/2018 12/10/2021 Overview: DO NOT DELETE - [facility] Study: Project # [id number], Universal Branch Consultant: Kevin Pearce, MS, MPH. SUMMARY: Goal: Establish [...] contact study staff at ; after hours Universal Branch Consultant via the [facility] safety pin assembling machine operator . - Please contact study team before resolving/deleting from patients problem list. Study phone number: [phone]. Diagnosis changed due to Research Module. Go [...] as of this encounter (statuses as of 05/02/2023) Immunizations Name Administration Dates Next Due COVID-19 [...] encounter Miscellaneous Notes * Telephone Encounter - Zelalem Wallace OSA - 01/31/2023 11:17 AM EDT Pt called and stated she would like to speak to her clinical case manager. Fatoumata Cadena is her clinical case manager, I gave her a call and left a VM for her to return pt's call. documented in this encounter Plan of Treatment Upcoming Encounters Date Type Department Care Team (Late st Contact Info) Description 05/04/2023 11:30 AM EST Home Visit isinger at [facility] [address] [place] [address] Tatyana Delaney RN 132 [facility] [place] [address] 05/12/2023 2:00 PM EST Office Visit Nephrology, [facility] [address] [facility] [place] [address] Luz Tobias MD [address] [facility] [place] [address] 05/26/2023 2:00 PM EST Laboratory Laboratory, [place] [address] [place] [address] [place] [address] [place] [address] 05/31/2023 1:30 PM EST Imaging Radiology [facility] [address] [place] [address] 06/07/2023 1:20 PM EST Office Visit Sleep Disorders Ctr [facility] [address] [place] [phone] Vira Byrd, [address] [place] [address] 07/27/2023 3:00 PM EDT Office Visit Cardiology, [facility] [address] Wood Wong PA-C 132 [facility] [place] [address] 08/01/2023 2:00 PM EDT Laboratory Laboratory, [place] [address] [place] [phone] [facility] [address] [place] [address] 08/02/2023 2:00 PM EDT Office Visit Rheumatology [place] [id number] [facility] [place] [place] [address] Eliot Castelan CRNP [facility] [place], [place] [address] 08/08/2023 12:30 PM EDT Office Visit Hematology/Oncology [facility] [address] [facility] [place] [address] Miguel A Alcantar MD [address] [facility] [place] [address] 10/11/2023 5:40 PM EDT Office Visit Family Practice, [place] [address] [place] [address] David Umanzor MD [address] [place], [place] [address] 03/07/2024 1:00 PM EST Office Visit Cardiology, [facility] 132 [facility] [place] [address] Manolo Millan MD [address] [place] [address] Scheduled Procedures Name Priority Associated Diagnoses Date/Ti [...] Additional history exists CKD PHOS USE SMARTSET 55758 12/02/202311/10, 08/06/2022, 08/21/2021, Additional history exists CKD HGB USE SMARTSET 05313 03/25/202403/25, 03/25/2023, 02/28/2023, Additional history exists TSH [...] this encounter Medical Devices Implanted Type Area Tricot Knitter Device Identifier Shelf Expiration Date Model / Serial / Lot [employer] Medical Embosphere Micrspheres Implanted:Qty: 2 on 11/02/2019 by Ish Grove MD at [facility] Right: Abdomen [employer] 05/11/2022 S220GH / S220GH / [id number] Syr Pf 2ml Embospheres 100-300 - [id number] Implanted:Qty: 1 on 11/14/2020 at [facility] [employer] [id number] 08/22/2023 S220GH / / [id number] Envelope Antibacterial Tyrx - [id number] Implanted:Qty: 1 on 12/29/2021 by Fatoumata Roland DO at OR [facility] [employer] : CRM [id number] 09/23/2022 CMR M6122 / / [id number] Stent Synergy Xd Mr 3.65c56fi - [id number] Implanted:Qty: 1 on 03/22/2022 by Katalina Pearce MD at [facility] [employer] [id number] 07/17/2023 [id number] / / [id number] Valve Berhane 3 Ultra 26mm - [id number] Implanted:Qty: 1 on 12/09/2022 by Manolo Millan MD at [facility] [employer] [id number] 12/04/2023 [id number] / / documented as of this encounter [...] the patient have Health Care Power of English Language Learner Tutor? No Care Teams Pilates Instructor Relationship Specialty Start Date End Date David Umaznor MD [address] [facility] [place] [address] PCP - General 02/25/09 documented as of this encounter
--- OUTSIDE RECORDS SUMMARY | 2023-05-28 21:31 | External Medical Summary | Summary of Care ---
Author Name Unknown Organization [facility] Address [address] [place] [address] Phone [phone] Care Team Providers Care Customs Examiner Name Role Phone Millie Cage MD Primary Care Provider [phone] Reason for Visit * Reason Comments eRx-Medication Refill Encounter Details Date Type Department Care Team (Late st Contact Info) Description 04/27/[address] [facility] [address] [place] [address] Millie Cage MD [address] [place] [address] Allergies Active Allergy Reactions Criticality Noted Date Comments Bactrim 02/09/2010 Cephalosporins Anaphylaxis,Edema face/lips/tongue High 04/11/2009 Anaphylaxis to cefaclor, facial swelling to cephalexin. Ciprofloxacin Low 03/30/2021 Other reaction(s): Nausea Butorphanol Tartrate 02/09/2010 Heart racing Sulfa Antibiotics Hives High 05/22/2002 Other reaction(s): Hives Trimethoprim 04/15/2022 Other reaction(s): Hives documented as of this encounter (statuses as of 04/29/2023) Medications Medication Sig Dispensed Refills Start Date [...] 03/21/20 12 Active Blood Glucose Monitoring Suppl (InfoDif AUTOCODE BLOOD GLUCOSE) w/Device KITIndications:DM type 2 [...] 06/03/19 Active Folic Acid 1 MG Oral TabletIndications:Encoun [...] 400 Each 3 08/07/19 23 Active Creon 58641-40660 UNIT Oral Capsule Delayed Release Particles (Pancrelipase (Pzu-Dvmw-Ofud))Indicati ons:Pancreatic insufficiency TAKE ONE CAPSULE BY MOUTH WITH EACH MEAL AND SNACK (PT WANTD FOUR TIMES A DAY ALL CELLS) 120 Capsule 08/27/19 23 Active Levothyroxine Sodium 125 MCG [...] units if BG is >200. 30 mL 10/01/19 23 Active Acetaminophen 500 MG Oral TabletIndications:HFrEF (heart failure with reduced ejection fraction) (HCC),Coronary artery disease involving [place] coronary artery of [place] heart without angina pectoris,Nonrheumatic aortic valve stenosis,Cardiac [...] morning. 90 Tablet 3 03/30/20 23 Active HYDROcodone-Acetaminophe n 5-325 MG Oral TabletIndications:Athero sclerosis of [place] artery of left lower extremity with intermittent claudication (HCC),Pain of left lower extremity Take 1 Tablet by mouth every 6 hours as needed for Pain, Mild. 45 Tablet 0 04/15/19 24 Active LORazepam 0.5 MG Oral Tablet (Ativan)Indications:Anxi ety state TAKE 1 TABLET 3 TIMES A DAY NEEDED FOR ANXIETY 40 Tablet 1 04/15/19 24 Active Nystatin 162657 UNIT/GM External Powder (Nyamyc) APPLY TO AFFECTED AREAS UNDER THE BREASTS THREE TIMES A DAY NEEDED 30 g 1 04/29/19 24 Active Doxycycline Hyclate 100 MG Oral CapsuleIndications:Open wound of lower extremity, unspecified laterality, initial encounter Take 1 Capsule by mouth in the morning and 1 Capsule before bedtime. Do all this for 10 days. Until gone.. 20 Capsule 0 04/28/19 24 024 Active Nystatin 241546 UNIT/GM External Powder (Nystop) APPLY TO AFFECTED AREAS UNDER THE BREASTS THREE TIMES PER DAY NEEDED 30 g 1 09/14/19 23 024 Discontinued documented as of this encounter (statuses as of 04/29/2023) Active Problems Problem Noted Date Diagnosed Date [...] to excess calories 0 08/09/2022 Atherosclerosis of [place] ar jania of left lower extremity with intermittent claudication 08/09/2022 Coronary artery disease invo lving [place] coronary artery of [place] heart with angina pectoris 03/22/2022 Last Assessment [...] Overview: Diabetic retinopathy Rheumatoid arthritis of [facility] sites without rheumatoid factor 01/26/2016 Last [...] as of this encounter (statuses as of 04/29/2023) Resolved Problems Problem Noted Date Diagnosed Date [...] DELETE [facility] DETECT Study: Project # [id number], Advertising Copy Writer: Manny Santacruz, PhD. SUMMARY: Goal: Establish test [...] contact study staff at ; after hours Advertising Copy Writer via the [facility] hospital creel operator . Please contact study team before resolving/deleting from patients problem list. Study phone number: [phone]. Diagnosis changed due to Research Module. Go to Snapshot for study details. Encounter for examination fo r normal comparison and control in clinical research program 11/08/2018 12/10/2021 Overview: DO NOT DELETE - [facility] Study: Project # [id number], Advertising Copy Writer: Kevin Pearce, MS, MPH. SUMMARY: Goal: Establish [...] contact study staff at ; after hours Advertising Copy Writer via the [facility] creel operator . - Please contact study team before resolving/deleting from patients problem list. Study phone number: [phone]. Diagnosis changed due to Research Module. Go [...] as of this encounter (statuses as of 04/29/2023) Immunizations Name Administration Dates Next Due COVID-19 [...] shopping? (15 years old or older) Yes 12/12/20 22 Cognitive Status Response Date of Assessm ent Because of a physical, menta l, or emotional condition, do you have serious difficulty concentrating, remembering, or making decisions? (5 years old or older) No 03/22/2022 documented as of this encounter Miscellaneous Notes * Telephone Encounter - Millie Cage MD - 04/29/2023 11:39 AM ESTSigned Prescriptions: Disp Refills Nystatin 441415 UNIT/GM External Powder (N*30 g 1 Sig: APPLY TOAFFECTED AREAS UNDER THE BREASTS THREE TIMES A DAY NEEDEDAuthorizing Provider: MILLIE CAGE * Telephone Encounter - Millie Cage MD - 04/29/2023 11:39 AM ESTSigned Prescriptions: Disp Refills Nystatin 074624 UNIT/GM External Powder (N*30 g 1 Sig: APPLY TO AFFECTED AREAS UNDER THE BREASTS THREE TIMES A DAY NEEDEDAuthorizing Provider: MILLIE CAGE * Telephone Encounter - Rosangela Spangler, [facility] - 04/29/2023 6:57 AM EST Pending Prescriptions: Disp Refills Nystatin 991692 UNIT/GM External Powder (N*30 g 1 Sig: APPLY TO AFFECTED AREAS UNDER THE BREASTS THREE TIMES A DAY NEEDED * Telephone Encounter - Rosangela Spangler RPh - 04/29/2023 6:57 AM EST Refill pharmacists currently not authorized to approve refills for this class of medication per refill protocol. Please approve if appropriate. Thank you, Rosangela Spangler, PharmD. 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 Iron deficiency anemia D50.9 Vitamin D deficiency E55.9 Sleep apnea G47.30 Type 2 diabetes mellitus (HCC) E11.9 Encounter for long-term (current) use of medications Z79.899 Diabetes mellitus, type II, insulin dependent (HCC) E11.9, Z79.4 Generalized OA M15.9 Rheumatoid arthritis of multiple sites without rheumatoid factor (HCC) M06.09 Dyslipidemia, goal LDL below 70 E78.5 Blind 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 HTN, goal below 140/90 I10 Paroxysmal atrial fibrillation (HCC) I48.0 Stage 3a chronic kidney disease (HCC) N18.31 Renal osteodystrophy N25.0 Hepatocellular carcinoma (HCC) C22.0 Cardiomyopathy (HCC) I42.9 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 Combined systolic and diastolic congestive heart failure (HCC) 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 Type 2 diabetes mellitus with stage 3a chronic kidney disease, with long-term current use of insulin ([facility]) E11.22, N18.31, Z79.4 Open-angle glaucoma H40.10X0 Severe aortic stenosis I35.0 Tachy-wilfrido syndrome ([facility]) I49.5 Coronary artery disease involving [place] coronary artery of [place] heart with angina pectoris ([facility])I25.119 S/P primary angioplasty with coronary stent Z95.5 Anxiety state F41.1 Cyst of pancreas K86.2 Morbid (severe) obesity due to excess calories ([facility]) E66.01 Atherosclerosis of [place] artery of left lower extremity with intermittent claudication ([facility]) I70.212 Non-pressure chronic ulcer of lower leg ([facility]) L97.909 Varicose veins of unspecified lower extremity with ulcer of unspecified site (CODE) ([facility]) I83.009 History of kidney stones Z87.442 Presence of permanent cardiac pacemaker Z95.0 Hypertensive heart disease with combined systolic and diastolic heart failure and stage 3a chronic kidney disease ([facility]) I13.0, I50.40, N18.31 Thrombocytopenia ([facility]) D69.6 Labs: Lab Results Component Value Date/Time CREATININE - [facility] 1.2 (H) 04/25/2023 02:17 PM CREATININE - [facility] 1.1 (H) 04/28/2020 11:03 AM CREATININE, 24 HOUR URINE 808 09/14/2021 10:57 AM CREATININE, 24 HR UR 945 12/04/2019 06:30 AM CREATININE, RANDOM URINE - [facility] 29 11/29/2022 10:29 AM CREATININE, RANDOM URINE - [facility] 26 12/25/2019 03:29 PM CREATININE, RANDOM URINE - [facility] 25 12/25/2019 03:29 PM CREATININE-OUTSIDE LAB 1.17 03/31/2022 12:00 AM Lab Results Component Value Date/Time POTASSIUM - [facility] 4.7 04/25/2023 02:17 PM POTASSIUM - [facility] 4.1 04/28/2020 11:03 AM POTASSIUM, 24 HOUR URINE 36 09/14/2021 10:57 AM POTASSIUM, 24 HR UR 64 12/04/2019 06:30 AM POTASSIUM-OUTSIDE LAB 3.9 03/31/2022 12:00 AM Lab Results Component Value Date/Time TSH - [facility] 1.58 04/25/2023 02:17 PM TSH - [facility] 0.51 05/07/2019 03:34 PM Lab Results Component Value Date/Time LDL CHOLESTEROL (CALCULATED) - [facility] 34 03/18/2022 02:07 PM LDL CHOLESTEROL (CALCULATED) - [facility] UNINTERPRETABLE RESULT 04/24/2018 08:46 AM LDL CHOLESTEROL (CALCULATED) - [facility] 21 07/07/2017 08:08 AM LDL CHOLESTEROL (DIRECT MEASURE) - [facility] 24 04/14/2023 04:02 PM LDL CHOLESTEROL (DIRECT MEASURE) - [facility] 52 04/28/2020 11:03 AM LDL CHOLESTEROL (DIRECT MEASURE) - [facility] 47 05/07/2019 03:34 PM LDL CHOLESTEROL (DIRECT MEASURE) - [facility] 56 04/24/2018 08:46 AM LDL CHOLESTEROL (DIRECT MEASURE) - [facility] 70 06/16/2016 03:23 PM Lab Results Component Value Date/Time ALT - [facility] 20 03/24/2023 01:20 PM ALT - [facility] 17 04/28/2020 11:03 AM ALT-OUTSIDE LAB 28 04/22/2016 12:00 AM Hemoglobin AIC Results: Lab Results Component Value Date/Time HEMOGLOBIN A1C - [facility] 7.7 (H) 04/25/2023 02:17 PM HEMOGLOBIN A1C - [facility] 7.4 (H) 08/06/2022 03:20 PM HEMOGLOBIN A1C - [facility] 7.1 (H) 04/13/2022 02:54 PM HEMOGLOBIN A1C - [facility] 6.9 (H) 04/28/2020 11:03 AM HEMOGLOBIN A1C - [facility] 6.7 (H) 12/25/2019 03:15 PM HEMOGLOBIN A1C - [facility] 7.2 (H) 05/07/2019 03:34 PM documented in this encounter Plan of Treatment Upcoming Encounters Date Type Department Care Team (Late st Contact Info) Description 04/29/2023 12:00 PM EST Laboratory Laboratory, [address] [place] [address] St, Specimen Drop Off [address] [place] [address] Arrived 05/04/2023 11:30 AM EST Home Visit [facility] [address] [facility] [place] [address] Tatyana Delaney, RN [address] [place] [address] 05/12/2023 2:00 PM EST Office Visit Nephrology, [facility] [address] [facility] [place] [address] Luz Tobias MD [address] [facility] [place] [address] 05/26/2023 2:00 PM EST Laboratory Laboratory, [place] [address] [place] [address] [place] [address] [place] [address] 05/31/2023 1:30 PM EST Imaging Radiology [facility] [address] [facility] [place] [address] 06/07/2023 1:20 PM EST Office Visit Sleep Disorders Ctr [facility] [address] [facility] [place] [phone] Vira Byrd DO [address] [facility] [place] [address] 07/27/2023 3:00 PM EDT Office Visit Cardiology, [facility] [address] [facility] [place] [address] Wood Wong PA-C [address] [facility] [place] [address] 08/01/2023 2:00 PM EDT Laboratory Laboratory, [place] [address] [place] [phone] [facility] [address] [place] [address] 08/02/2023 2:00 PM EDT Office Visit Rheumatology [facility] [address] [facility] [place] [address] Eliot Castelan CRNP [address] [facility] [place] [address] 08/08/2023 12:30 PM EDT Office Visit Hematology/Oncology [facility] [address] [facility] [place] [address] Miguel A Alcantar MD [address] [facility] [place] [address] 10/11/2023 5:40 PM EDT Office Visit Family Practice, [place] [address] [place] [phone] Millie Cage MD [address], [place] [address] 03/07/2024 1:00 PM EST Office Visit Cardiology, [facility] [address] [place], [place] [phone] Manolo Millan MD [address] [place], [place] [phone] Scheduled Procedures Name Priority Associated Diagnoses Date/Ti [...] Additional history exists CKD PHOS USE SMARTSET 21320 12/02/202311/10, 08/06/2022, 08/21/2021, Additional history exists CKD HGB USE SMARTSET 91894 03/25/202403/25, 03/25/2023, 02/28/2023, Additional history exists TSH [...] encounter Medical Devices Implanted Type Area Medical Doctor Device Identifier Shelf Expiration Date Model / Serial / Lot [employer] Medical Embosphere Micrspheres Implanted:Qty: 2 on 11/02/2019 by Ish Grove MD at [facility] Right: Abdomen [employer] 05/11/2022 S220GH / [id number] / [id number] Syr Pf 2ml Embospheres 100-300 - [id number] Implanted:Qty: 1 on 11/14/2020 at [facility] [employer] [id number] 08/22/2023 S220GH / / [id number] Envelope Antibacterial Tyrx - [id number] Implanted:Qty: 1 on 12/29/2021 by Fatoumata Roland DO at [facility] [employer] : CRM [id number] 09/23/2022 CMR [id number] / / [id number] Stent Synergy Xd Mr [id number] - [id number] Implanted:Qty: 1 on 03/22/2022 by Katalina Pearce MD at [facility] [employer] [id number] 07/17/2023 [id number] / / [id number] Valve Berhane 3 Ultra 26mm - [id number] Implanted:Qty: 1 on 12/09/2022 by Manolo Millan MD at [facility] [employer] [id number] 12/04/2023 [id number] / / documented as of this encounter [...] the patient have Health Care Power of Corn Crop Supervisor? No Care Teams Customs Examiner Relationship Specialty Start Date End Date Millie Cage MD [address] [place] [address] PCP - General 02/25/09 documented as of this encounter
--- OUTSIDE RECORDS SUMMARY | 2023-05-28 21:31 | External Medical Summary | Summary of Care ---
Author Name Unknown Organization [facility] Address [address] [place] [address] Phone [phone] Care Team Providers Care State Appellate Clerk Name Role Phone David Umanzor MD Primary Care Provider [phone]- [phone] Reason for Visit * Reason Onset Date Comments Med Request 04/28/2023 Encounter Details Date Type Department Care Team (Late st Contact Info) Description 04/28/2023 Telephone [facility] [address] [place] [address] David Umanzor MD [address] [place] [address] Med Request Allergies Active Allergy Reactions Criticality Noted Date Comments Bactrim 02/09/2010 Cephalosporins Anaphylaxis,Edema face/lips/tongue High 04/11/2009 Anaphylaxis to cefaclor, facial swelling to cephalexin. Ciprofloxacin Low 03/30/2021 Other reaction(s): Nausea Butorphanol Tartrate 02/09/2010 Heart racing Sulfa Antibiotics Hives High 05/22/2002 Other reaction(s): Hives Trimethoprim 04/15/2022 Other reaction(s): Hives documented as of this encounter (statuses as of 04/28/2023) Medications Medication Sig Dispensed Refills Start Date [...] 1 2 Active Blood Glucose Monitoring Suppl ([employer] AUTOCODE BLOOD GLUCOSE) w/Device KITIndications:DM type 2 causing neurological disease, not at goal ([facility]) Test blood sugar 4 times daily Dx: E11.9 1 Kit 0 9 Active PRODIGY LANCETS 28G MISCIndications:DM type 2, not at goal ([facility]) TEST BLOOD SUAGER 4 TIMES [...] goal of less than 7.0% ([facility]),Type 2 diabetes mellitus with stage 3 chronic kidney disease, with long-term current use of insulin, unspecified whether stage 3a or 3b CKD ([facility]),DM type 2 causing neurological disease, not at goal ([facility]) TEST BLOOD SUGAR UP TO FOUR TIMES DAILY 400 Strip 3 2 Active Fluticasone Propionate 50 MCG/ACT Nasal Suspension (Flonase)Indications:Admitting Counselor sanket rhinitis ADMINISTER 2 SPRAYS IN [...] daily 400 Each 3 3 Active Creon 76952-58187 UNIT Oral Capsule Delayed Release Particles (Pancrelipase (Cvl-Romg-Duqa))Indicatio ns:Pancreatic insufficiency TAKE ONE CAPSULE BY MOUTH [...] at bedtime. 2 mL 5 3 Active Nystatin 268450 UNIT/GM External Powder (Nystop) APPLY TO AFFECTED AREAS UNDER THE BREASTS THREE TIMES PER DAY NEEDED 30 g 1 3 Active NovoLOG FlexPen 100 UNIT/ML Subcutaneous [...] failure with reduced ejection fraction) ([facility]),Coronary artery disease involving [place] coronary artery of [place] heart without angina pectoris,Nonrheumatic aortic valve stenosis,Cardiac pacemaker in situ,Tachy-wilfrido syndrome ([facility]) Take 1 Tablet by mouth [...] long-term current use of insulin ([facility]) Inject 30 units daily 45 [...] Gabapentin 300 MG Oral Capsule (Neurontin)Indications:Ac [place] on chronic combined systolic and diastolic congestive heart failure ([facility]) Take 1 Capsule by mouth [...] HYDROcodone-Acetaminophen 5-325 MG Oral TabletIndications: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 45 Tablet 0 4 Active LORazepam 0.5 MG Oral Tablet (Ativan)Indications:Anxie ty state TAKE 1 TABLET 3 TIMES A DAY NEEDED FOR ANXIETY 40 Tablet 1 4 Active Doxycycline Hyclate 100 MG [...] as of this encounter (statuses as of 04/28/2023) Active Problems Problem Noted Date Diagnosed Date [...] to excess calories 0 08/09/2022 Atherosclerosis of [place] ar jania of left lower extremity with intermittent claudication 08/09/2022 Coronary artery disease invo lving guid[place] coronary artery of guid[place] heart with angina pectoris 03/22/2022 Last Assessment [...] retinopathy Rheumatoid arthritis of [facility] sites without rheumatoid factor 01/26/2016 Last Assessment [...] as of this encounter (statuses as of 04/28/2023) Resolved Problems Problem Noted Date Diagnosed Date [...] [facility] DETECT Study: Project # [id number], Heating And Air Conditioning Mechanic: Manny Santacruz, PhD. SUMMARY: Goal: Establish [...] contact study staff at ; after hours Heating And Air Conditioning Mechanic via the [facility] [place] fiber product cutting machine operator . Please contact study team before resolving/deleting from patients problem list. Study phone number: [phone]. Diagnosis changed due to Research Module. Go to Snapshot for study details. Encounter for examination fo r normal comparison and control in clinical research program 11/08/2018 12/10/2021 Overview: DO NOT DELETE - [facility] Study: Project # [id number], Heating And Air Conditioning Mechanic: Kevin Pearce, MS, MPH. SUMMARY: Goal: [...] contact study staff at ; after hours Heating And Air Conditioning Mechanic via the [facility] fiber product cutting machine operator . - Please contact study team before resolving/deleting from patients problem list. Study phone number: [phone]. Diagnosis changed due to Research Module. Go [...] as of this encounter (statuses as of 04/28/2023) Immunizations Name Administration Dates Next Due COVID-19 [...] encounter Miscellaneous Notes * Telephone Encounter - Kendal Chacon LPN - 04/28/2023 4:08 PM EST Patient aware and verbalized understanding, will comply * Telephone Encounter - Toya Lisa LPN - 04/28/2023 3:38 PM EST Left generic message on answering machine asking patient to return our call. * Telephone Encounter - David Umanzor MD - 04/28/2023 3:27 PM EST Can notify Sertraline sent erx * Telephone Encounter - Toya Lisa LPN - 04/28/2023 3:15 PM EST Please advise. * Telephone Encounter - Celeste Reagan CPhT - 04/28/2023 1:52 PM EST Patient states there was going to be a prescription sent to pharmacy for anxiety/nerves after her OV on 04/25/2023. Please advise. Thank you, Celeste Reagan Earth Auger Operator [facility] ([facility]) (Formerly Telepharmacy) 04/28/2023,1:53 PM documented in this encounter Plan of Treatment Upcoming Encounters Date Type Department Care Team (Late st Contact Info) Description 05/04/2023 11:30 AM EST Home Visit [facility] [place] [place] [address] [address] Tatyana Delaney, RN [address] [place] [address] 05/12/2023 2:00 PM EST Office Visit Nephrology, [facility] [address] [facility] [place], [place] [address] Luz Tobias MD [address] [facility] [place] [address] 05/26/2023 2:00 PM EST Laboratory Laboratory, [place] [address] [place] [address] [facility] [address] [place] [address] 05/31/2023 1:30 PM EST Imaging Radiology [facility] [address] [facility] [place] [address] 06/07/2023 1:20 PM EST Office Visit [facility] [phone] Vira Byrd DO [address] [facility] [address] 07/27/2023 3:00 PM EDT Office Visit Cardiology, [facility] [address] [facility] [place] [address] Wood Wong PA-C [address] [place] [address] 08/01/2023 2:00 PM EDT Laboratory Laboratory, [place] [address] [place] [phone] [facility] [address] [place] [address] 08/02/2023 2:00 PM EDT Office Visit Rheumatology [facility] [address] [facility] [place], [place] [address] Eliot Castelan CRNP [address] [facility] [place], [place] [address] 08/08/2023 12:30 PM EDT Office Visit Hematology/Oncology [facility] [address] [facility] [place], [place] [address] Miguel A Alcantar MD [address] [facility] [place], [place] [address] 10/11/2023 5:40 PM EDT Office Visit Family [facility] [place] [address] [place] [phone] David Umanzor MD [address] [place] [address] 03/07/2024 1:00 PM EST Office Visit Cardiology, [facility] [address] [place] [address] Manolo Millan MD [address] [place] [address] Scheduled Procedures Name Priority Associated Diagnoses Date/Ti mt ECHOCARDIOGRAPHY, TRANSESOPH AGEAL; INCLUDING PROBE PLACEMENT, IMAGE [...] Additional history exists CKD PHOS USE SMARTSET 38244 12/02/202311/10, 08/06/2022, 08/21/2021, Additional history exists CKD HGB USE SMARTSET 80107 03/25/202403/25, 03/25/2023, 02/28/2023, Additional history exists TSH [...] this encounter Medical Devices Implanted Type Area Appeals Court Associate Justice Device Identifier Shelf Expiration Date Model / Serial / Lot [facility] Medical Embosphere Micrspheres Implanted:Qty: 2 on 11/02/2019 by Ish Grove MD at [facility] Right: Abdomen [employer] 05/11/2022 S220GH / [id number] / [id number] Syr Pf 2ml Embospheres 100-300 - [id number] Implanted:Qty: 1 on 11/14/2020 at [facility] [employer] [id number] 08/22/2023 S220GH / / [id number] Envelope Antibacterial Tyrx - [id number] Implanted:Qty: 1 on 12/29/2021 by Fatoumata Roland DO at [facility] [employer] : CRM [id number] 09/23/2022 CMR [id number] / / [id number] Stent Synergy Xd Mr 3.85l44wn - [id number] Implanted:Qty: 1 on 03/22/2022 by Katalina Pearce MD at [facility] [place] Medium [id number] 07/17/2023 [id number] / / [id number] Valve Berhane 3 Ultra 26mm - [id number] Implanted:Qty: 1 on 12/09/2022 by Manolo Millan MD at [facility] [employer] [id number] 12/04/2023 [id number] / / documented as of this encounter [...] the patient have Health Care Power of Sugar Cane Planter? No Care Teams State Appellate Clerk Relationship Specialty Start Date End Date David Umanzor MD [address] [place] [address] PCP - General 02/25/09 documented as of this encounter
--- OUTSIDE RECORDS SUMMARY | 2023-05-28 21:31 | External Medical Summary ---
Author Name Unknown Address Unknown Organization K01:[facility] [place] [address] [place] [address] Laboratory Report Ordering Provider Test Date Status NLIES PINTO 04/29/2023 11:55:06 Final Light growth normal stacy Observation Date Value Abnormality Reference (Units ) Status Bacteria identified in Specimen by Culture 04/29/2023 11:55:06 [id number]^SERRATIA MARCESCENS Abnormal Final Many Serratia marcescens Performing Location [facility] [place] [address] [place] [address] Ordering Provider Test Date Status NILES PINTO 04/29/2023 11:55:06 Final Observation Date Value Abnormality Reference (Units ) Status Cefepime susceptibility 04/29/2023 11:55:06 <=1 Susceptible Final cefOXitin [Susceptibility] 04/29/2023 11:55:06 Resistant Final Ciprofloxacin 04/29/2023 11:55:06 0.5 Intermediate Final Gentamicin susceptibility 04/29/2023 11:55:06 <=1 Susceptible Final Levofloxacin susceptibility 04/29/2023 11:55:06 1 Intermediate Final TMP-SMZ susceptibility 04/29/2023 11:55:06 <=20 Susceptible Final Test: Culture, Wound, Superf icial, Aerobic
Specimen Source: Leg, Unspecified
Specimen Type: Superficial Wound
Specimen Date: 04/29/2023 11:55 AM
Result Date: 05/02/2023 3:04 PM
Result Status: Final result
Abnormal: Yes
Resulting Lab: [facility]
[address]
[place] [address]

CULTURE

Many Serratia marcescens (Abnormal)

Light growth normal stacy

SUSCEPTIBILITY

Serratia
marcescens
METHOD MICROBROTH
DILUTIONS

CEFEPIME <=1 Susceptible
CEFOXITIN -- Resistant
CIPROFLOXACIN 0.5 Intermediate
GENTAMICIN <=1 Susceptible
LEVOFLOXACIN 1 Intermediate
TRIMETH/SULFAMETHOXAZOLE <=20 Susceptible

null Performing Location [facility] [place] [address] [place] [address]
--- OUTSIDE RECORDS SUMMARY | 2023-05-28 21:31 | External Medical Summary | Summary of Care ---
Author Name Unknown Organization [facility] Address [address] [place] [place] [address] Phone [phone] Care Team Providers Care Molding Machine Tender Name Role Phone David Umanzor MD Primary Care Provider [phone]- [phone] Encounter Details Date Type Department Care Team (Late st Contact Info) Description 04/21/2023 Population Health External Data Unspecified Department Allergies Active Allergy Reactions Criticality Noted Date Comments Bactrim 02/09/2010 Cephalosporins Anaphylaxis,Edema face/lips/tongue High 04/11/2009 Anaphylaxis to cefaclor, facial swelling to cephalexin. Ciprofloxacin Low 03/30/2021 Other reaction(s): Nausea Butorphanol Tartrate 02/09/2010 Heart racing Sulfa Antibiotics Hives High 05/22/2002 Other reaction(s): Hives Trimethoprim 04/15/2022 Other reaction(s): Hives documented as of this encounter (statuses as of 04/25/2023) Medications Medication Sig Dispensed Refills Start Date [...] 1 2 Active Blood Glucose Monitoring Suppl ([employer] AUTOCODE BLOOD GLUCOSE) w/Device KITIndications:DM type 2 causing neurological disease, not at goal ([facility]) Test blood sugar 4 times daily Dx: E11.9 1 Kit 0 9 Active PRODIGY LANCETS 28G MISCIndications:DM type 2, not at goal ([facility]) TEST BLOOD SUAGER 4 TIMES A DAY [...] goal of less than 7.0% ([facility]),Type 2 diabetes mellitus with stage 3 chronic kidney disease, with long-term current use of insulin, unspecified whether stage 3a or 3b CKD ([facility]),DM type 2 causing neurological disease, not at goal ([facility]) TEST BLOOD SUGAR UP TO FOUR TIMES DAILY 400 Strip 3 2 Active Fluticasone Propionate 50 MCG/ACT Nasal Suspension (Flonase)Indications:Overlock Waistline Joiner sanket rhinitis ADMINISTER 2 SPRAYS IN EACH [...] Tablet 3 3 Active BD Pen Needle [place] U/F 32G X 4 MM (Insulin Pen Needle)Indications:Type 2 diabetes mellitus with hyperosmolarity without coma, without long-term current use of insulin ([facility]) Use to inject insulin 4 times daily 400 Each 3 3 Active Creon 84979-61396 UNIT Oral Capsule Delayed Release Particles (Pancrelipase (Deb-Uiay-Zgkd))Indicatio ns:Pancreatic insufficiency TAKE ONE CAPSULE BY MOUTH [...] bedtime. 2 mL 5 3 Active Nystatin 801174 UNIT/GM External Powder (Nystop) APPLY TO AFFECTED AREAS UNDER THE BREASTS THREE TIMES PER DAY NEEDED 30 g 1 3 Active NovoLOG FlexPen 100 UNIT/ML Subcutaneous Solution Pen-injector (insulin aspart)Indications:Type 2 diabetes mellitus with hyperosmolarity without coma, without long-term current use of insulin ([facility]) Inject 10 units with breakfast, 4 units with lunch, and 10 units with PM meal. Inject 4 units if BG is >200. 30 mL 5 3 Active Acetaminophen 500 MG Oral TabletIndications:HFrEF (heart failure with reduced ejection fraction) ([facility]),Coronary artery disease involving [place] coronary artery of [place] heart without angina pectoris,Nonrheumatic aortic valve stenosis,Cardiac pacemaker in situ,Tachy-wilfrido syndrome ([facility]) Take 1 Tablet by mouth at bedtime. [...] long-term current use of insulin ([facility]) Inject 30 units daily 45 mL 1 [...] FOR ANXIETY 40 Tablet 1 4 Active documented as of this encounter (statuses as of 04/25/2023) Active Problems Problem Noted Date Diagnosed Date [...] of [facility] sites without rheumatoid factor 01/26/2016 Last [...] as of this encounter (statuses as of 04/25/2023) Resolved Problems Problem Noted Date Diagnosed Date [...] DELETE [facility] DETECT Study: Project # [id number], Police Justice: Manny Santacruz, PhD. SUMMARY: Goal: Establish test [...] contact study staff at ; after hours Police Justice via the [facility] hospital lift operator . Please contact study team before resolving/deleting from patients problem list. Study phone number: [phone]. Diagnosis changed due to Research Module. Go to Snapshot for study details. Encounter for examination fo r normal comparison and control in clinical research program 11/08/2018 12/10/2021 Overview: DO NOT DELETE - [facility] COY Study: Project # [id number], Police Justice: Kevin Pearce, MS, MPH. SUMMARY: Goal: Establish [...] contact study staff at ; after hours Police Justice via the [facility] hospital lift operator . - Please contact study team before resolving/deleting from patients problem list. Study phone number: [phone]. Diagnosis changed due to Research Module. Go [...] as of this encounter (statuses as of 04/25/2023) Immunizations Name Administration Dates Next Due COVID-19 mRNA, LNP-s, No Pre serve, 2-Dose Series (Moderna) 06/08/2021,12/17/2020,06/23/2020,02/0 11/2020 H1N1 2009 Influenza, IM 04/06/2009 MMR - [...] Description 05/04/2023 11:30 AM EST Home Visit [facility], [facility] [address] [place] [address] Tatyana Delaney RN [address] [place] [address] 05/26/2023 2:00 PM EST Laboratory Laboratory, [address] [place] [phone] [facility] [address] [place] [address] 05/31/2023 1:30 PM EST Imaging Radiology [facility] 1st [facility] [place] [address] [facility] [place] [address] 06/07/2023 1:20 PM EST Office Visit [facility] Disorders Ctr [facility] [address] [facility] [place] [phone] Vira Byrd, DO [address] [place] [address] 07/27/2023 3:00 PM EDT Office Visit Cardiology, [facility] [place] [address] Wood Wong PA-C [address] [facility] [address] 08/01/2023 2:00 PM EDT Laboratory Laboratory, [place] [address] [place] [phone] [facility] [address] [place] [address] 08/02/2023 2:00 PM EDT Office Visit Rheumatology [facility] [address] [facility] [place] [address] Eliot Castelan CRNP [address] [facility] [place] [address] 08/08/2023 12:30 PM EDT Office [facility] [place] [address] [place] [address] Miguel A Alcantar MD [address] [place] [address] 10/11/2023 5:40 PM EDT Office Visit [facility] [address] [place] [address] David Umanzor MD [address] [place] [address] 03/07/2024 1:00 PM EST Office Visit Cardiology, [facility] [address] [facility] [place] [address] Manolo Millan MD [address] [place] [address] Scheduled Procedures Name Priority Associated [...] 2022 06/08/2021, 12/17/2020, 06/23/2020, Additional history exists HbA1c 02/05/2023 08/06/2022, 06/2022, 02/12/2022, Additional history exists TSH 04/13/2023 04/13/2022, 05/2021, 06/02/2020, Additional history exists Diabetic Eye Exam 05/27/2023 05/27/2022, , 05/27/2022, Additional history exists Mammogram 07/28/2023 07/27/2022, 07/10, 01/09/2019, Additional history exists Albumin/Creatinine Ratio 09/08/2023 023, 08/06/2022, 05/13/2021, Additional history exists GFR 10/13/2023 04/14/2023, 03/11, 02/28/2023, Additional history exists CKD PHOS USE SMARTSET 68115 12/02/202311/10, 08/06/2022, 08/21/2021, Additional history exists CKD HGB USE SMARTSET 12181 03/25/202403/25, 03/25/2023, 02/28/2023, Additional history exists DXA Scan 08/26/2025 08/26/2021, [...] this encounter Medical Devices Implanted Type Area Property Management Accountant Device Identifier Shelf Expiration Date Model / Serial / Lot Information [employer] Medical Embosphere Micrspheres Implanted:Qty: 2 on 11/02/2019 by Ish Grove MD at [facility] Right: Abdomen [employer] 05/11/2022 S220GH / S220GH / [id number] Syr Pf 2ml Embospheres 100-300 - [id number] Implanted:Qty: 1 on 11/14/2020 at [facility] [employer] [id number] 08/22/2023 S220GH / / [id number] Envelope Antibacterial Tyrx - [id number] Implanted:Qty: 1 on 12/29/2021 by Fatoumata Roland DO at OR [facility] [employer] : CRM [id number] 09/23/2022 CMR [id number] / / [id number] Stent Synergy Xd Mr 3.94a46pg - [id number] Implanted:Qty: 1 on 03/22/2022 by Katalina Paerce MD at [facility] [employer] [id number] 07/17/2023 [id number] / / [id number] Valve Berhane 3 Ultra 26mm - [id number] Implanted:Qty: 1 on 12/09/2022 by Manolo Millan MD at [facility] [employer] [id number] 12/04/2023 [id number] / / documented as of this encounter [...] the patient have Health Care Power of Cannery Tender Engineer? No Care Teams Molding Machine Tender Relationship Specialty Start Date End Date David Umanzor MD [address] [place] [address] PCP - General 02/25/09 documented as of this encounter
--- OUTSIDE RECORDS SUMMARY | 2023-05-28 21:31 | External Medical Summary | Summary of Care ---
Author Name Unknown Organization [facility] Address [address] [facility] [place] [address] Phone [phone] Care Team Providers Care Dyed Raw Stock Blower Feeder Name Role Phone David Umanzor MD Primary Care Provider +1- [phone] Reason for Visit * Reason Onset Date Comments Test Results 04/19/2023 Encounter Details Date Type Department Care Team (Late st Contact Info) Description 04/19/2023 Telephone Cardiology, [facility] [address] [place] [address] Wood Wong PA-C [address] [place] [address] Test Results Allergies Active Allergy Reactions Criticality Noted Date Comments Bactrim 02/09/2010 Cephalosporins Anaphylaxis,Edema face/lips/tongue High 04/11/2009 Anaphylaxis to cefaclor, facial swelling to cephalexin. Ciprofloxacin Low 03/30/2021 Other reaction(s): Nausea Butorphanol Tartrate 02/09/2010 Heart racing Sulfa Antibiotics Hives High 05/22/2002 Other reaction(s): Hives Trimethoprim 04/15/2022 Other reaction(s): Hives documented as of this encounter (statuses as of 04/27/2023) Medications Medication Sig Dispensed Refills Start Date [...] 1 2 Active Blood Glucose Monitoring Suppl ([employer] AUTOCODE BLOOD GLUCOSE) w/Device KITIndications:DM type 2 [...] Active Fluticasone Propionate 50 MCG/ACT Nasal Suspension (Flonase)Indications:Intelligent Systems Engineer sanket rhinitis ADMINISTER 2 SPRAYS IN [...] daily 400 Each 3 3 Active Creon 13465-20670 UNIT Oral Capsule Delayed Release Particles (Pancrelipase (Bdy-Iwbb-Vnlm))Indicatio ns:Pancreatic insufficiency TAKE ONE CAPSULE BY MOUTH [...] bedtime. 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 45 Tablet 0 4 Active LORazepam 0.5 MG Oral Tablet (Ativan)Indications:Anxie ty state TAKE 1 TABLET 3 TIMES A DAY NEEDED FOR ANXIETY 40 Tablet 1 4 Active documented as of this encounter (statuses as of 04/27/2023) Active Problems Problem Noted Date Diagnosed Date [...] to excess calories 0 08/09/2022 Atherosclerosis of [place] ar jania of left lower extremity with intermittent claudication 08/09/2022 Coronary artery disease invo lving newtok coronary artery of [place] heart with angina pectoris 03/22/2022 Last Assessment [...] as of this encounter (statuses as of 04/27/2023) Resolved Problems Problem Noted Date Diagnosed Date [...] DELETE [facility] DETECT Study: Project # [id number], Girls Tennis Coach: Manny Santacruz, PhD. SUMMARY: Goal: Establish test [...] contact study staff at ; after hours Girls Tennis Coach via the [facility] clean room operator . Please contact study team before resolving/deleting from patients problem list. Study phone number: [phone]. Diagnosis changed due to Research Module. Go to Snapshot for study details. Encounter for examination fo r normal comparison and control in clinical research program 11/08/2018 12/10/2021 Overview: [facility] DELETE [facility] Study: Project # [id number], Girls Tennis Coach: Kevin Pearce, MS, MPH. SUMMARY: Goal: Establish [...] contact study staff at ; after hours Girls Tennis Coach via the [facility] hospital clean room operator . - Please contact study team before resolving/deleting from patients problem list. Study phone number: [phone]. Diagnosis changed due to Research Module. Go [...] STEROID RESPONDERS 06/12/2002 8 Senile nuclear cataract 03/29/2002 0810/2017 Amblyopia 03/29/2002 09/03/2021 documented as of this encounter (statuses as of 04/27/2023) Immunizations Name Administration Dates Next Due COVID-19 [...] encounter Miscellaneous Notes * Telephone Encounter - Geovanna Castillo OSA - 04/27/2023 11:13 AM EST Pt added to recall list for carotid in one year. * Telephone Encounter - Manuel Gramajo LPN - 04/19/2023 12:41 PM EST Called patient and informed of Wood's message. Patient verbalized understanding. Order placed. Scheduling please assist. ----- Message from Wood Wong PA-C sent at 04/15/2023 4:30 PM EST ----- OK/stable. * Telephone Encounter - Manuel Gramajo LPN - 04/19/2023 12:41 PM EST ----- Message from Wood Wong PA-C sent at 04/14/2023 5:23 PM EST ----- Relatively stable. Repeat duplex in 1 year. documented in this encounter Plan of Treatment Upcoming Encounters Date Type Department Care Team (Late st Contact Info) Description 05/04/2023 11:30 AM EST [facility] Visit [facility] [address] [place] [address] Tatyana Delaney, RN [address] [place] [address] 05/12/2023 2:00 PM EST Office Visit Nephrology, [facility] [address] [place] [address] Lzu Tobias MD [address] [place] [address] 05/26/2023 2:00 PM EST Laboratory Laboratory, [place] [address] [place] [phone] [place], [facility] [address] [place] [address] 05/31/2023 1:30 PM EST Imaging Radiology [facility] [address] [facility] [place] [address] [facility] [place] [address] 06/07/2023 1:20 PM EST Office Visit Sleep Disorders Ctr [facility] 132 [facility] [place] [phone] Vira Byrd DO [address] [place] [address] 07/27/2023 3:00 PM EDT Office Visit Cardiology, [facility] 132 [facility] [place] [address] Wood Wong PA-C [address] [place] [address] 08/01/2023 2:00 PM EDT Laboratory Laboratory, [place] [address] [place] [phone] [facility] [address] [place] [address] 08/02/2023 2:00 PM EDT Office Visit Rheumatology [address] [place], [place] [address] Eliot Castelan CRNP [address] [place] [address] [place] [address] 08/08/2023 12:30 PM EDT Office Visit Hematology/Oncology [facility] [place] [address] [place] [address] Miguel A Alcantar MD [address] [place] [address] 10/11/2023 5:40 PM EDT Office Visit Family Practice, [address] [place] [address] David Umanzor MD [address] [place] [address] 03/07/2024 1:00 PM EST Office Visit Cardiology, [facility] [address] [place] [address] Manolo Millan MD [address] [place] [address] Scheduled Orders Name Type Priority Associated Diagnoses Orde r Schedule VASC DUPLEX CAROTID BILAT Medical Imaging Routine Bilateral carotid bruits Dyslipidemia, goal LDL below 70 Carotid stenosis, bilateral Expected: 04/14/2024 (Approximate), Expires: 05/20/2024 Scheduled Procedures Name Priority [...] 07/10, 01/09/2019, Additional history exists Albumin/Creatinine Ratio 09/08/202309/07/2 023, 08/06/2022, 05/13/2021, Additional history exists GFR 10/24/2023 04/25/2023, 01/0 07/2023, 03/24/2023, Additional history exists HbA1c 10/24/2023 04/25/2023, 07/11, 04/13/2022, Additional history exists CKD PHOS USE SMARTSET 82391 12/02/202311/10, 08/06/2022, 08/21/2021, Additional history exists CKD HGB USE SMARTSET 86979 03/25/202403/25, 03/25/2023, 02/28/2023, Additional history exists TSH [...] this encounter Medical Devices Implanted Type Area Candy Spreader Helper Device Identifier Shelf Expiration Date Model / Serial / Lot Mediastream Medical Embosphere Micrspheres Implanted:Qty: 2 on 11/02/2019 by Ish Grove MD at [facility] Right: Abdomen [employer] 05/11/2022 S220GH / S220GH / [id number] Syr Pf 2ml Embospheres 100-300 - [id number] Implanted:Qty: 1 on 11/14/2020 at [facility] [employer] [id number] 08/22/2023 S220GH / / [id number] Envelope Antibacterial Tyrx - [id number] Implanted:Qty: 1 on 12/29/2021 by Fatoumata Roland DO at OR [facility] [employer] : CRM [id number] 09/23/2022 CMR [id number] / / [id number] Stent Synergy Xd Mr 3.04f68uj - [id number] Implanted:Qty: 1 on 03/22/2022 by Katalina Pearce MD at [facility] [employer] [id number] 07/17/2023 [id number] / / [id number] Valve Berhane 3 Ultra 26mm - [id number] Implanted:Qty: 1 on 12/09/2022 by Manolo Millan MD at [facility] [employer] [id number] 12/04/2023 [id number] / / documented as of this encounter Visit Diagnoses Diagnosis Carotid stenosis, bilateral- Primary Occlusion and stenosis of multiple and bilateral precerebral arteries without mention of cerebral infarction Bilateral carotid bruits Dyslipidemia, goal LDL below 70 Other and unspecified hyperlipidemia documented in this encounter Advance Directives Latest [...] the patient have Health Care Power of Fiscal Technician? No Care Teams Dyed Raw Stock Blower Feeder Relationship Specialty Start Date End Date David Umanzor MD [address] [place] [address] PCP - General 02/25/09 documented as of this encounter
--- OUTSIDE RECORDS SUMMARY | 2023-05-28 21:31 | External Medical Summary | Summary of Care ---
Author Name Unknown Organization [facility] Address [address] [place] [address] Phone [phone] Care Team Providers Care Threading Machine Feeder Automatic Name Role Phone David Umanzor MD Primary Care Provider +1- [phone] Reason for Visit * Reason Comments Outpatient Testing Encounter Details Date Type Department Care Team (Late st Contact Info) Description 04/29/2023 12:00 PM EST Laboratory Laboratory, [address] [address] [address], Specimen Drop Off [address] [address] Open wound of lower extremity, unspecified laterality, initial encounter Allergies Active Allergy Reactions Criticality Noted Date [...] 1 2 Active Blood Glucose Monitoring Suppl ([employer] AUTOCODE BLOOD GLUCOSE) w/Device KITIndications:DM type 2 causing neurological disease, not at goal ([facility]) Test blood sugar 4 times daily Dx: E11.9 1 Kit 0 9 Active PRODIGY LANCETS 28G MISCIndications:DM type 2, not at goal ([facility]) TEST BLOOD SUAGER 4 TIMES A [...] of less than 7.0% (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),DM type 2 causing neurological disease, not at goal ([facility]) TEST BLOOD SUGAR UP TO FOUR TIMES DAILY 400 Strip 3 2 Active Fluticasone Propionate 50 MCG/ACT Nasal Suspension (Flonase)Indications:Intellectual Property Manager sanket rhinitis ADMINISTER 2 SPRAYS IN [...] daily 400 Each 3 3 Active Creon 62632-59653 UNIT Oral Capsule Delayed Release Particles (Pancrelipase (Wqy-Xyiu-Ekxs))Indicatio ns:Pancreatic insufficiency TAKE ONE CAPSULE BY MOUTH [...] with reduced ejection fraction) ([facility]),Coronary artery disease involving [place] coronary artery of [place] heart without angina pectoris,Nonrheumatic aortic valve stenosis,Cardiac pacemaker in situ,Tachy-wilfrido syndrome ([facility]) Take 1 Tablet by mouth at [...] current use of insulin ([facility]) Inject 30 units daily 45 mL [...] Active Gabapentin 300 MG Oral Capsule (Neurontin)Indications:Ac ewiiaapaayp on chronic combined systolic and diastolic congestive heart failure (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 45 Tablet 0 4 Active LORazepam 0.5 MG Oral Tablet (Ativan)Indications:Anxie ty state TAKE 1 TABLET 3 TIMES A DAY NEEDED FOR ANXIETY 40 Tablet 1 4 Active Nystatin 814885 UNIT/GM External Powder (Nyamyc) APPLY TO AFFECTED [...] to excess calories 0 08/09/2022 Atherosclerosis of [place] ar jania of left lower extremity with intermittent claudication 08/09/2022 Coronary artery disease invo lving [place] coronary artery of [place] heart with angina pectoris 03/22/2022 Last [...] 12/21/2016 Overview: Diabetic retinopathy Rheumatoid arthritis of [facility] sites without rheumatoid factor 01/26/2016 [...] -- AHI 17.1, significant hypoxia and PLMS [facility] Vitamin D deficiency 04/21/2011 Iron deficiency [...] DELETE [facility] DETECT Study: Project # [id number], Integrated Circuit Design Engineer: Manny Santacruz, PhD. SUMMARY: Goal: Establish [...] contact study staff at ; after hours Integrated Circuit Design Engineer via the [facility] hospital power switchboard operator . Please contact study team before resolving/deleting from patients problem list. Study phone number: [phone]. Diagnosis changed due to Research Module. Go to Snapshot for study details. Encounter for examination fo r normal comparison and control in clinical research program 11/08/2018 12/10/2021 Overview: DO NOT DELETE [facility] Study: Project # [id number], Integrated Circuit Design Engineer: Kevin Pearce, MS, MPH. SUMMARY: Goal: [...] contact study staff at ; after hours Integrated Circuit Design Engineer via the [facility] power switchboard operator . - Please contact study team before resolving/deleting from patients problem list. Study phone number: [phone]. Diagnosis changed due to Research Module. Go [...] Description 05/04/2023 11:30 AM EST Home Visit [facility] at Home, [facility] [address] [place] [address] Tatyana Delaney, RN [address] [place] [address] 05/12/2023 2:00 PM EST Office Visit Nephrology, [facility] [address] [facility] [address] [place] [address] Luz Tobias MD 200 [facility] [place] [address] 05/26/2023 2:00 PM EST Laboratory Laboratory, [place] [address] [place] [address] [facility] [address] [place] [address] 05/31/2023 1:30 PM EST Imaging Radiology [facility] 1st [facility] [place] [address] [place] [address] 06/07/2023 1:20 PM EST Office Visit Sleep Disorders Ctr [facility] 132 [facility] [place] [phone] Vira Byrd DO [address] [place] [address] 07/27/2023 3:00 PM EDT Office Visit Cardiology, [facility] [address] [place] [address] Wood Wong PAMirandaC [address] [place] [address] 08/01/2023 2:00 PM EDT Laboratory Laboratory, [place] [address] [place] [address] [facility] [address] [place] [address] 08/02/2023 2:00 PM EDT Office Visit Rheumatology [facility] [address] [facility] [place] [address] Eliot Castelan CRNP [address] [facility] [place] [address] 08/08/2023 12:30 PM EDT Office Visit Hematology/Oncology [facility] 200 [facility] [place] [address] Miguel A Alcantar MD 200 [facility] [place] [address] 10/11/2023 5:40 PM EDT Office Visit Family [facility] [place] [address] [place] [address] David Umanzor MD [address] [place] [address] 03/07/2024 1:00 PM EST Office Visit Cardiology, [facility] 132 [facility] [place] [address] Manolo Millan MD [address] [place] [address] Pending Results Name Type Priority Associated Diagnoses Date /Time CULTURE, WOUND, SUPERFICIAL, AEROBIC Lab Routine Open wound of lower extremity, unspecified laterality, initial encounter 04/29/2023 11:55 AM EST Scheduled Procedures Name Priority Associated [...] Additional history exists CKD PHOS USE SMARTSET 14670 12/02/202311/10, 08/06/2022, 08/21/2021, Additional history exists CKD HGB USE SMARTSET 14565 03/25/202403/25, 03/25/2023, 02/28/2023, Additional history exists TSH [...] this encounter Medical Devices Implanted Type Area Column Precaster Device Identifier Shelf Expiration Date Model / Serial / Lot Kamelio Medical Embosphere Micrspheres Implanted:Qty: 2 on 11/02/2019 by Ish Grove MD at [facility] Right: Abdomen [employer] 05/11/2022 S220GH / S220GH / [id number] Syr Pf 2ml Embospheres 100-300 - [id number] Implanted:Qty: 1 on 11/14/2020 at [facility] [employer] [id number] 08/22/2023 S220GH / / [id number] Envelope Antibacterial Tyrx - [id number] Implanted:Qty: 1 on 12/29/2021 by Fatoumata Roland DO at [facility] [employer] : CRM [id number] 09/23/2022 CMR M6122 / / [id number] Stent Synergy Xd Mr 3.99v46au - [id number] Implanted:Qty: 1 on 03/22/2022 by Katalina Pearce MD at [facility] [employer] [id number] 07/17/2023 [id number] / / [id number] Valve Berhane 3 Ultra 26mm - [id number] Implanted:Qty: 1 on 12/09/2022 by Manolo Millan MD at [facility] [employer] [id number] 12/04/2023 [id number] / / documented as of this encounter Visit Diagnoses Diagnosis Open wound of lower extremity, unspecified laterality, initial encounter documented in this encounter Advance Directives Latest [...] the patient have Health Care Power of Psychology Technician? No Care Teams Threading Machine Feeder Automatic Relationship Specialty Start Date End Date David Umanzor MD [address] [place] [address] PCP - General 02/25/09 documented as of this encounter
--- OUTSIDE RECORDS SUMMARY | 2023-05-28 21:31 | External Medical Summary | Summary of Care ---
Author Name Unknown Organization [facility] Address [address] [facility] [place] [address] Phone [phone] Care Team Providers Care Composite Science Teacher Name Role Phone David Umanzor MD Primary Care Provider +1- [phone] Reason for Visit * Reason Onset Date Comments [facility]: Maintenance 03/30/2023 Encounter Details Date Type Department Care Team (Late st Contact Info) Description 03/30/2023 Telephone [facility], [facility] [address] [place] [address] Tatyana Delaney RN [address] [place] [address] [facility]: Maintenance Allergies Active Allergy [...] 03/21/20 12 Active Blood Glucose Monitoring Suppl (Fidus WriterIGY AUTOCODE BLOOD GLUCOSE) w/Device KITIndications:DM type 2 [...] daily 400 Each 3 08/07/19 Active Creon 40230-23793 UNIT Oral Capsule Delayed Release Particles (Pancrelipase (Hqb-Cwze-Ksdj))Indicat ions:Pancreatic insufficiency TAKE ONE CAPSULE BY MOUTH [...] fraction) ([facility]),Coronary artery disease involving [place] coronary artery of [place] heart without angina pectoris,Nonrheumatic aortic valve stenosis,Cardiac [...] and diastolic congestive heart failure ([facility]) Take 1 Capsule by mouth in the [...] Tab 3 03/09/20 10 024 Discontinued Nystatin 706005 UNIT/GM External Powder (Nystop) APPLY TO AFFECTED AREAS UNDER THE BREASTS THREE TIMES PER DAY NEEDED 30 g 1 09/14/19 23 024 Discontinued LORazepam 0.5 MG Oral Tablet (Ativan)Indications:Anx iety state TAKE 1 TABLET 3 TIMES A DAY NEEDED FOR ANXIETY 40 Tablet 1 02/24/20 23 024 Discontinued(R efill) documented as of [...] to excess calories 0 08/09/2022 Atherosclerosis of [place] ar jania of left lower extremity with intermittent claudication 08/09/2022 Coronary artery disease invo lving [place] coronary artery of [place] heart with angina pectoris 03/22/2022 Last Assessment [...] [facility] DET[facility] Study: Project # [id number], Crossing Watchman: Manny Santacruz, PhD. SUMMARY: Goal: Establish test [...] contact study staff at ; after hours Crossing Watchman via the [facility] glycerin operator . Please contact study team before resolving/deleting from patients problem list. Study phone number: [phone]. Diagnosis changed due to Research Module. Go to Snapshot for study details. Encounter for examination fo r normal comparison and control in clinical research program 11/08/2018 12/10/2021 Overview: DO NOT DELETE - [facility] Study: Project # [id number], Crossing Watchman: Kevin Pearce, MS, MPH. SUMMARY: Goal: Establish [...] contact study staff at ; after hours Crossing Watchman via the [facility] hospital glycerin operator . - Please contact study team before resolving/deleting from patients problem list. Study phone number: [phone]. Diagnosis changed due to Research Module. Go [...] Encounter - Tatyana Delaney RN - 03/30/2023 12:[address] Grove, Pt's pain of RUQ has improved, benzol still operator, but not nearly as bad. She is wondering about her lab work that you ordered. Can you please review and call her and let her know? She is anxious to get your opinion. Thanks so much . documented in this encounter Plan of Treatment Upcoming Encounters Date Type Department Care Team (Late st Contact Info) Description 05/04/2023 11:30 AM EST Home Visit [facility] [address] [place] [address] Tatyana Delaney RN 132 [facility] [place] [address] 05/12/2023 2:00 PM EST Office Visit Nephrology, [facility] [address] [facility] [place] [address] Luz Tobias MD [address] [facility] [place] [address] 05/26/2023 2:00 PM EST Laboratory Laboratory, [place] [address] [place] [phone] [place] [address] [place] [address] 05/31/2023 1:30 PM EST Imaging Radiology [facility] 1st [facility] [address] [place] [address] 06/07/2023 1:20 PM EST Office Visit [facility] Disorders Ctr [facility] [address] [place] [phone] Vira Byrd DO [address] [place] [address] 07/27/2023 3:00 PM EDT Office Visit Cardiology, [facility] [address] [place] [address] Wood Wong PA-C [address] [place] [facility] [place] [address] 08/01/2023 2:00 PM EDT Laboratory Laboratory, [place] [address] [place] [phone] [facility] [address] [place] [address] 08/02/2023 2:00 PM EDT Office Visit Rheumatology [facility] [address] [facility] [place] [address] Eliot Castelan CRNP [address] [facility] [place] [address] 08/08/2023 12:30 PM EDT Office Visit Hematology/Oncology [facility] [address] [facility] [place] [address] Miguel A Alcantar MD [address] [facility] [place] [address] 10/11/2023 5:40 PM EDT Office Visit [facility] [address] [place] [phone] David Umanzor MD [address] [place] [address] 03/07/2024 1:00 PM EST Office Visit Cardiology, [facility] [address] [facility] [address] Manolo Millan MD [address] [place], [place] [id number] Scheduled Procedures Name Priority Associated Diagnoses Date/Ti [...] Additional history exists CKD PHOS USE SMARTSET 08186 12/02/202311/10, 08/06/2022, 08/21/2021, Additional history exists CKD HGB USE SMARTSET 13437 03/25/202403/25, 03/25/2023, 02/28/2023, Additional history exists TSH [...] this encounter Medical Devices Implanted Type Area Mobile Home Mechanic Device Identifier Shelf Expiration Date Model / Serial / Lot [facility] Medical Embosphere Micrspheres Implanted:Qty: 2 on 11/02/2019 by Ish Grove MD at [facility] Right: Abdomen [employer] 05/11/2022 S220GH / [id number] / [id number] Syr Pf 2ml Embospheres 100-300 - [id number] Implanted:Qty: 1 on 11/14/2020 at [facility] [employer] [id number] 08/22/2023 S220GH / / [id number] Envelope Antibacterial Tyrx - [id number] Implanted:Qty: 1 on 12/29/2021 by Fatoumata Roland DO at [facility] [employer] : CRM [id number] 09/23/2022 CMR [id number] / / [id number] Stent Synergy Xd Mr 3.93f67ey - [id number] Implanted:Qty: 1 on 03/22/2022 by Katalina Pearce MD at [facility] [employer] [id number] 07/17/2023 [id number] / / [id number] Valve Berhane 3 Ultra 26mm - [id number] Implanted:Qty: 1 on 12/09/2022 by Manolo Millan MD at [facility] [employer] [id number] 12/04/2023 [id number] / / documented as of this encounter [...] the patient have Health Care Power of General Office Worker? No Care Teams Composite Science Teacher Relationship Specialty Start Date End Date David Umanzor MD [address] [place] [address] PCP - General 02/25/09 documented as of this encounter
--- OUTSIDE RECORDS SUMMARY | 2023-05-28 21:32 | External Medical Summary | Summary of Care ---
Author Name Unknown Organization [facility] Address [address] [place] [address] Phone [phone] Care Team Providers Care Dry Cleaning Supervisor Name Role Phone David Umanzor MD Primary Care Provider +1- [phone] Reason for Visit * Reason Onset Date Comments Fax 04/12/2023 Encounter Details Date Type Department Care Team (Late st Contact Info) Description 04/12/2023 Telephone Access Center, [place] [facility] [address] [facility] *DO NOT REMOVE THIS DEPARTMENT* [place], [place] [id number] Services, Scheduling [address] [place] [address] Fax Allergies Active Allergy Reactions Criticality Noted Date Comments Bactrim 02/09/2010 Cephalosporins Anaphylaxis,Edema face/lips/tongue High 04/11/2009 Anaphylaxis to cefaclor, facial swelling to cephalexin. Ciprofloxacin Low 03/30/2021 Other reaction(s): Nausea Butorphanol Tartrate 02/09/2010 Heart racing Sulfa Antibiotics Hives High 05/22/2002 Other reaction(s): Hives Trimethoprim 04/15/2022 Other reaction(s): Hives documented as of this encounter (statuses as of 04/22/2023) Medications Medication Sig Dispensed Refills Start Date [...] 1 2 Active Blood Glucose Monitoring Suppl (WhoAPIIGAccupal AUTOCODE BLOOD GLUCOSE) w/Device KITIndications:DM type 2 [...] Active Fluticasone Propionate 50 MCG/ACT Nasal Suspension (Flonase)Indications:Motorcycle Tester sanket rhinitis ADMINISTER 2 SPRAYS IN EACH [...] daily 400 Each 3 3 Active Creon 91870-41536 UNIT Oral Capsule Delayed Release Particles (Pancrelipase (Fva-Evut-Baxr))Indicatio ns:Pancreatic insufficiency TAKE ONE CAPSULE BY MOUTH [...] bedtime. 2 mL 5 3 Active Nystatin 791911 UNIT/GM External Powder (Nystop) APPLY TO AFFECTED [...] fraction) ([facility]),Coronary artery disease involving [place] coronary artery of [place] heart without angina pectoris,Nonrheumatic aortic valve stenosis,Cardiac pacemaker in situ,Tachy-wilfrido syndrome ([facility]) Take 1 Tablet by mouth at [...] use of insulin ([facility]) Inject 30 units daily 45 mL [...] Active Gabapentin 300 MG Oral Capsule (Neurontin)Indications:Ac [place] on chronic combined systolic and diastolic congestive heart failure ([facility]) Take 1 Capsule by mouth in [...] the morning. 90 Tablet 3 3 Active documented as of this encounter (statuses as of 04/22/2023) Active Problems Problem Noted Date Diagnosed Date [...] to excess calories 0 08/09/2022 Atherosclerosis of [place] ar jania of left lower extremity with intermittent claudication 08/09/2022 Coronary artery disease invo lving [place] coronary artery of [place] heart with angina pectoris 03/22/2022 Last Assessment [...] Rheumatoid arthritis of [facility] sites without rheumatoid factor 01/26/2016 Last Assessment [...] as of this encounter (statuses as of 04/22/2023) Resolved Problems Problem Noted Date Diagnosed Date [...] program 11/08/2018 11/12/2019 Overview: DO NOT DELETE [employer] DETECT Study: Project # [id number], Precision Honing Machine Operator: Manny Santacruz, PhD. SUMMARY: Goal: Establish [...] contact study staff at ; after hours Precision Honing Machine Operator via the [facility] hospital mva reactor operator . Please contact study team before resolving/deleting from patients problem list. Study phone number: [phone]. Diagnosis changed due to Research Module. Go to Snapshot for study details. Encounter for examination fo r normal comparison and control in clinical research program 11/08/2018 12/10/2021 Overview: DO NOT DELETE - [employer] DETECT Study: Project # [id number], Precision Honing Machine Operator: Kevin Pearce, MS, MPH. SUMMARY: Goal: [...] contact study staff at ; after hours Precision Honing Machine Operator via the [facility] hospital mva reactor operator . - Please contact study team before resolving/deleting from patients problem list. Study phone number: [phone]. Diagnosis changed due to Research Module. Go [...] as of this encounter (statuses as of 04/22/2023) Immunizations Name Administration Dates Next Due COVID-19 [...] encounter Miscellaneous Notes * Telephone Encounter - Toya Lisa LPN - 04/22/2023 3:28 PM EST Paperwork faxed. * Telephone Encounter - Kwame Salmeron MD - 04/22/2023 3:26 PM EST Note signed. Kwame Salmeron MD * Telephone Encounter - Toya Lisa LPN - 04/22/2023 3:21 PM EST OV notes placed on providers desk for signature. * Telephone Encounter - Emily Dorantes OSA - 04/12/2023 2:02 PM EST Caller requesting the following information to be faxed: Name/Company of caller: [facility] Information requested to be faxed: Supporting Documentation for the Home Health Referral Fax number: [phone] Attention to Name/Company: [facility] Any additional information?: Documentation Needed: * Summary of Last visit signed by MD documented in this encounter Plan of Treatment Upcoming Encounters Date Type Department Care Team (Late st Contact Info) Description 04/25/2023 1:20 PM EST Office Visit [facility] [address] [place] [phone] David Umanzor MD [address] [place] [address] 05/04/2023 11:30 AM EST [facility] 132 [facility] [place] [address] Tatyana Delaney RN [address] [place] [address] 05/26/2023 2:00 PM EST Laboratory Laboratory, [place] [address] [place] [facility] [place] [phone] [facility] [address] [place] [address] 05/31/2023 1:30 PM EST Imaging Radiology [facility] [address] [facility] [place] [address] 06/07/2023 1:20 PM EST Office Visit Sleep Disorders Ctr [facility] 132 [place] [address] Vira Byrd DO 132 [facility] [place] [address] 07/27/2023 3:00 PM EDT Office Visit Cardiology, [facility] [address] [facility] [place] [address] Wood Wong PA-C 132 [facility] [place] [address] 08/01/2023 2:00 PM EDT Laboratory Laboratory, [place] [address] [place] [phone] [facility] [address] [place], [place] [phone] 08/02/2023 2:00 PM EDT Office Visit Rheumatology [address] [place], [place] [address] Eliot Castelan CRNP [address] [place] [address] [place], [place] [address] 08/08/2023 12:30 PM EDT Office Visit Hematology/Oncology [facility] [place] [address] Miguel A Alcantar MD 200 [facility] [place] [address] 03/07/2024 1:00 PM EST Office Visit Cardiology, [facility] [address] [facility] [place] [address] Manolo Millan MD [address] [place] [facility] [place] [address] Scheduled Procedures Name Priority Associated Diagnoses [...] 06/23/2020, Additional history exists HbA1c 02/05/2023 08/06/2022, 0 06/2022, 02/12/2022, Additional history exists TSH 04/13/2023 04/13/2022, 0 05/2021, 06/02/2020, Additional history exists Diabetic Eye Exam 05/27/2023 05/27/2022, , 05/27/2022, Additional history exists Mammogram 07/28/2023 07/27/2022, 07/10, 01/09/2019, Additional history exists Albumin/Creatinine Ratio 09/08/2023 023, 08/06/2022, 05/13/2021, Additional history exists GFR 10/13/2023 04/14/2023, 03/11, 02/28/2023, Additional history exists CKD PHOS USE SMARTSET 47216 12/02/2023 08/06/2022, 08/06/2022, 08/21/2021, Additional history exists CKD HGB USE SMARTSET 40869 03/25/202403/25, 03/25/2023, 02/28/2023, Additional history exists DXA [...] this encounter Medical Devices Implanted Type Area Rn Internal Medicine Device Identifier Shelf Expiration Date Model / Serial / Lot [employer] Medical Embosphere Micrspheres Implanted:Qty: 2 on 11/02/2019 by Ish Grove MD at [facility] Right: Abdomen [employer] 05/11/2022 S220GH / S220GH / [id number] Syr Pf 2ml Embospheres 100-300 - [id number] Implanted:Qty: 1 on 11/14/2020 at [facility] [employer] [id number] 08/22/2023 S220GH / / [id number] Envelope Antibacterial Tyrx - [id number] Implanted:Qty: 1 on 12/29/2021 by Fatoumata Roland DO at [facility] [employer] : CRM [id number] 09/23/2022 CMR [id number] / / [id number] Stent Synergy Xd Mr 3.25f41jm - [id number] Implanted:Qty: 1 on 03/22/2022 by Katalina Pearce MD at [facility] [employer]cell[employer] [id number] 07/17/2023 [id number] / / [id number] Valve Berhane 3 Ultra 26mm - [id number] Implanted:Qty: 1 on 12/09/2022 by Manolo Millan MD at [facility] [employer] [id number] 12/04/2023 [id number] / / documented as of this encounter [...] the patient have Health Care Power of Programming Equipment Operator? No Care Teams Dry Cleaning Supervisor Relationship Specialty Start Date End Date David Umanzor MD [address] [place] [address] PCP - General 02/25/09 documented as of this encounter
--- OUTSIDE RECORDS SUMMARY | 2023-05-28 21:32 | External Medical Summary ---
Author Name Unknown Address Unknown Organization K01:[facility] [address] [place] [address] Laboratory Report Ordering Provider Test Date Status NILES PINTO 04/25/2023 14:17:48 Final Observation Date Value Abnormality Reference (Units ) Status TSH 04/25/2023 14:17:48 1.58 0.27-4.20 (uIU/mL) Final Performing Location LABORATORY C - [address] [place] [address]
--- OUTSIDE RECORDS SUMMARY | 2023-05-28 21:32 | External Medical Summary ---
Author Name UNSPECIFIED Address Unknown Organization [facility] History of Encounters Reason for Assessment: Start of care - f urther visits planned Inpatient discharge facility: Past 14 Da ys: Not Discharged from Inpatient Facility Functional Assessment Patient Living Situation: Patient lives with other person(s) in the home: Around the clock Patient Has At Least 1 Unhea led Pressure Ulcer At Stage 2 Or Higher: Yes When Dyspneic: When walking more th an 20 feet, climbing stairs Urinary Incontinence or Urin jeison Catheter Present: Patient is incontinent Bowel Incontinence Frequency: Very rarel y or never has bowel incontinence When Anxious (Reported or Observed): Marivel ly, but not constantly Cognitive and Behavioral and Psychiatric Symptoms: None Current Ability: Bathing: able to partic ipate in bathing self in shower or tub, but requires presence of another person throughout the bath for assistance or supervision. Current Ability: Ambulation: Requires us e of a two-handed device (e.g., walker or crutches) to walk alone on a level surface and/or requires human supervision or assistance to negotiate stairs or steps or uneven surfaces. Current: Management Of Oral Medications: Able to take medication(s) at the correct times if: (a) individual dosages are prepared in advance by another person; OR (b) another person develops a drug diary or chart Current: Management Of Injec table Medications: Able to take injectable medication(s) at the correct times if: (a) individual syringes are prepared in advance by another person; OR (b) another person develops a drug diary or chart. Problems Primary Home Care Diagnosis ICD Code: L8 9.312, Pressure ulcer of right buttock, stage 2 Home Care Diagnosis 1: ICD Code: L97.911 , Non-prs chr ulc unsp prt of r low leg limited to brkdwn skin Home Care Diagnosis 1: Severity Ratin Home Care Diagnosis 2: ICD Code: L97.921 , Non-prs chr ulc unsp prt of l low leg limited to brkdwn skin Home Care Diagnosis 2: [facility] Home Care Diagnosis 3: ICD Code: E11.22, Type 2 diabetes mellitus w diabetic chronic kidney disease Home Care Diagnosis 3: [facility] Home Care Diagnosis 4: ICD Code: I12.9, Hypertensive chronic kidney disease w stg 1-4/unsp chr kdny Home Care Diagnosis 4: [facility] Home Care Diagnosis 5: ICD Code: I50.40, Unsp combined systolic and diastolic (congestive) hrt fail Home Care Diagnosis 5: Sever[facility] Ratin
--- OUTSIDE RECORDS SUMMARY | 2023-05-28 21:32 | External Medical Summary | Summary of Care ---
Author Name Unknown Organization [facility] Address [address] [facility] [place] [address] Phone [phone] Care Team Providers Care Catalogue Librarian Name Role Phone David Umanzor MD Primary Care Provider [phone]- [phone] Reason for Visit * Reason Onset Date Comments Test Results 04/19/2023 Encounter Details Date Type Department Care Team (Late st Contact Info) Description 04/19/2023 Telephone Cardiology, [facility] [address] [place] [address] Wood Wong PA-C [address] [facility] [place] [address] Test Results Allergies Active Allergy Reactions Criticality [...] 1 2 Active Blood Glucose Monitoring Suppl ([employer] AUTOCODE BLOOD GLUCOSE) w/Device KITIndications:DM type 2 [...] Active Fluticasone Propionate 50 MCG/ACT Nasal Suspension (Flonase)Indications:Benefits Assistant sanket rhinitis ADMINISTER 2 SPRAYS IN [...] daily 400 Each 3 3 Active Creon 43642-42061 UNIT Oral Capsule Delayed Release Particles (Pancrelipase (Ixs-Cwie-Uhss))Indicatio ns:Pancreatic insufficiency TAKE ONE CAPSULE BY MOUTH [...] bedtime. 2 mL 5 3 Active Nystatin 815117 UNIT/GM External Powder (Nystop) APPLY TO AFFECTED [...] [facility]),Coronary artery disease involving douglas coronary artery of douglas heart without angina pectoris,Nonrheumatic aortic valve stenosis,Cardiac [...] and diastolic congestive heart failure ([facility]) Take 1 Capsule by mouth in the [...] HYDROcodone-Acetaminophen 5-325 MG Oral TabletIndications:Atheros clerosis of douglas artery of left lower extremity with intermittent [...] to excess calories 0 08/09/2022 Atherosclerosis of douglas ar jania of left lower extremity with intermittent claudication 08/09/2022 Coronary artery disease invo lving douglas coronary artery of douglas heart with angina pectoris 03/22/2022 Last Assessment [...] 12/21/2016 Overview: Diabetic retinopathy Rheumatoid arthritis of formerly [facility] sites without rheumatoid factor 01/26/2016 Last [...] [facility] DETECT Study: Project # [id number], Coupon Manifest Clerk: Manny Santacruz, PhD. SUMMARY: Goal: Establish [...] contact study staff at ; after hours Coupon Manifest Clerk via the [facility] otr owner operator truck driver . Please contact study team before resolving/deleting from patients problem list. Study phone number: [phone]. Diagnosis changed due to Research Module. Go to Snapshot for study details. Encounter for examination fo r normal comparison and control in clinical research program 11/08/2018 12/10/2021 Overview: DO NOT DELETE - [facility] Study: Project # [id number], Coupon Manifest Clerk: Kevin Pearce, MS, MPH. SUMMARY: Goal: [...] contact study staff at ; after hours Coupon Manifest Clerk via the [facility] hospital otr owner operator truck driver . - Please contact study team before resolving/deleting from patients problem list. Study phone number: [phone]. Diagnosis changed due to Research Module. Go [...] encounter Miscellaneous Notes * Telephone Encounter - Manuel Gramajo LPN [...] Description 05/04/2023 11:30 AM EST Home Visit [facility] [address] [place] [address] Tatyana Delaney RN [address] [place] [address] 05/26/2023 2:00 PM EST Laboratory Laboratory, [place] [address] [place] [address] [place] [address] [place] [address] 05/31/2023 1:30 PM EST Imaging Radiology [address] [place] [address] 06/07/2023 1:20 PM EST Office Visit Sleep Disorders Ctr [facility] [address] [place] [phone] Vira Byrd, [address] [place] [address] 07/27/2023 3:00 PM EDT Office Visit Cardiology, [facility] [address] [place] [address] Wood Wong PA-C [address] [place] [address] 08/01/2023 2:00 PM EDT Laboratory Laboratory, [place] [address] [place] [phone] [facility] [address] [place] [address] 08/02/2023 2:00 PM EDT Office Visit Rheumatology [facility] [address] [facility] [place] [address] Eliot Castelan CRNP [address] [facility] [place] [address] 08/08/2023 12:30 PM EDT Office Visit Hematology/Oncology [facility] [address] [facility] [place] [address] Miguel A Alcantar MD [address] [facility] [place] [address] 10/11/2023 5:40 PM EDT [facility] [address] [place] [phone] David Umanzor MD [address] [place] [address] 03/07/2024 1:00 PM EST Office Visit Cardiology, [facility] [address] [place] [address] Manolo Millan MD [address] [place] [address] Scheduled Orders Name Type Priority Associated Diagnoses [...] 02/12/2022, Additional history exists TSH 04/13/2023 04/13/2022, 020 05/2021, 06/02/2020, Additional history exists Diabetic Eye Exam 05/27/2023 05/27/2022, , 05/27/2022, Additional history exists Mammogram 07/28/2023 07/27/2022, 07/10, 01/09/2019, Additional history exists Albumin/Creatinine Ratio 09/08/2023 023, 08/06/2022, 05/13/2021, Additional history exists GFR 10/13/2023 04/14/2023, 03/11, 02/28/2023, Additional history exists CKD PHOS USE SMARTSET 79435 12/02/2023 08/2 06/2022, 08/06/2022, 08/21/2021, Additional history exists CKD HGB USE SMARTSET 03532 03/25/202403/25, 03/25/2023, 02/28/2023, Additional history exists DXA [...] this encounter Medical Devices Implanted Type Area Ball Assembler Device Identifier Shelf Expiration Date Model / Serial / Lot [id number] Medical Embosphere Micrspheres Implanted:Qty: 2 on 11/02/2019 by Ish Grove MD at [facility] Right: Abdomen [employer] 05/11/2022 S220GH / [id number] / [id number] Syr Pf 2ml Embospheres 100-300 - [id number] Implanted:Qty: 1 on 11/14/2020 at [facility] [employer] [id number] 08/22/2023 S220GH / / [id number] Envelope Antibacterial Tyrx - [id number] Implanted:Qty: 1 on 12/29/2021 by Fatoumata Roland DO at [facility] [employer] : CRM [id number] 09/23/2022 CMR [id number] / / [id number] Stent Synergy Xd Mr 3.28r21cx - [id number] Implanted:Qty: 1 on 03/22/2022 by Katalina Pearce MD at [facility] [employer] [id number] 07/17/2023 [id number] / / [id number] Valve Berhane 3 Ultra 26mm - [id number] Implanted:Qty: 1 on 12/09/2022 by Manolo Millan MD at [facility] [employer] [id number] 12/04/2023 [id number] / / documented as of this encounter [...] the patient have Health Care Power of Field Sales Specialist? No Care Teams Catalogue Librarian Relationship Specialty Start Date End Date David Umanzor MD [address] [place] [address] PCP - General 02/25/09 documented as of this encounter
--- OUTSIDE RECORDS SUMMARY | 2023-05-28 21:32 | External Medical Summary | Summary of Care ---
Author Name Unknown Organization [facility] Address [address] [place] [address] Phone [phone] Care Team Providers Care Tail Worker Name Role Phone David Umanzor MD Primary Care Provider [phone]- [phone] Reason for Visit * Reason Comments Outpatient Testing Encounter Details Date Type Department Care Team (Late st Contact Info) Description 04/25/2023 2:20 PM EST Laboratory Laboratory, [place] [address] [place] [address] [place], Laboratory [address] [place] [address] Type 2 diabetes mellitus with hypoglycemia without coma, with long-term current use of insulin (HCC); Stage 3a chronic kidney disease (HCC) Allergies [...] 1 2 Active Blood Glucose Monitoring Suppl ([employer] AUTOCODE BLOOD GLUCOSE) w/Device KITIndications:DM type 2 causing neurological disease, not at goal ([facility]) Test blood sugar 4 times daily Dx: E11.9 1 Kit 0 9 Active PRODIGY LANCETS 28G MISCIndications:DM type 2, not at goal ([facility]) TEST BLOOD SUAGER 4 TIMES [...] hemoglobin A1c goal of less than 7.0% ([facility]),Type 2 diabetes mellitus with stage 3 chronic kidney disease, with long-term current use of insulin, unspecified whether stage 3a or 3b CKD ([facility]),DM type 2 causing neurological disease, not at goal ([facility]) TEST BLOOD SUGAR UP TO FOUR TIMES DAILY 400 Strip 3 2 Active Fluticasone Propionate 50 MCG/ACT Nasal Suspension (Flonase)Indications:Clinical Education Consultant sanket rhinitis ADMINISTER 2 SPRAYS IN [...] daily 400 Each 3 3 Active Creon 41008-42742 UNIT Oral Capsule Delayed Release Particles (Pancrelipase (Vlu-Txrv-Pybn))Indicatio ns:Pancreatic insufficiency TAKE ONE CAPSULE BY MOUTH [...] bedtime. 2 mL 5 3 Active Nystatin 061340 UNIT/GM External Powder (Nystop) APPLY TO AFFECTED [...] TabletIndications:HFrEF (heart failure with reduced ejection fraction) ([facility]),Coronary artery disease involving [place] coronary artery of [place] heart without angina pectoris,Nonrheumatic aortic valve stenosis,Cardiac pacemaker in situ,Tachy-wilfrido syndrome ([facility]) Take 1 Tablet by mouth [...] coma, without long-term current use of insulin ([facility]) Inject 30 units daily 45 [...] Active Gabapentin 300 MG Oral Capsule (Neurontin)Indications:Ac shoshone-paiute on chronic combined systolic and diastolic congestive heart failure ([facility]) Take 1 Capsule by mouth [...] MG Oral TabletIndications:Atheros clerosis of [place] artery of left lower extremity with intermittent [...] calories 0 08/09/2022 Atherosclerosis of [place] ar jania of left lower extremity with intermittent claudication 08/09/2022 Coronary artery disease invo lving [place] coronary artery of [place] heart with angina pectoris 03/22/2022 Last Assessment [...] Overview: Diabetic retinopathy Rheumatoid arthritis of [facility] sites without rheumatoid factor 01/26/2016 [...] -- AHI 17.1, significant hypoxia and PLMS [facility] Vitamin D deficiency 04/21/2011 Iron deficiency [...] [facility] DETECT Study: Project # [id number], Brick Burner Head: Manny Santacruz, PhD. SUMMARY: Goal: Establish test [...] contact study staff at ; after hours Brick Burner Head via the [facility] label press operator . Please contact study team before resolving/deleting from patients problem list. Study phone number: [phone]. Diagnosis changed due to Research Module. Go to Snapshot for study details. Encounter for examination fo r normal comparison and control in clinical research program 11/08/2018 12/10/2021 Overview: DO NOT DELETE - [facility] Study: Project # [id number], Brick Burner Head: Kevin Pearce, MS, MPH. SUMMARY: Goal: Establish [...] contact study staff at ; after hours Brick Burner Head via the [facility] label press operator . - Please contact study team before resolving/deleting from patients problem list. Study phone number: [phone]. Diagnosis changed due to Research Module. Go [...] AM EST Home Visit [facility], [facility] [address] [place], [place] [address] Tatyana Delaney, RN [address] [place], [place] [address] 05/26/2023 2:00 PM EST Laboratory Laboratory, [place] [address] [facility] [phone] [facility] [address] [place] [address] 05/31/2023 1:30 PM EST Imaging Radiology [facility] 1st [facility] [address] [facility] [place] [address] 06/07/2023 1:20 PM EST Office Visit [facility] Disorders Ctr [facility] [address] [facility] [place] [phone] Vira Byrd DO [address] [facility] [address] 07/27/2023 3:00 PM EDT Office Visit Cardiology, [facility] [address] [facility] [place] [address] Wood Wong PAMirandaC [address] [facility] [address] 08/01/2023 2:00 PM EDT Laboratory Laboratory, [place] [address] [facility] [phone] [facility] [address] [place] [address] 08/02/2023 2:00 PM EDT Office Visit Rheumatology [address] [place] [address] Eliot Castelan CRNP [address] [place] [address] [place] [address] 08/08/2023 12:30 PM EDT Office Visit Hematology/Oncology [facility] [address] [facility] [place] [address] Miguel A Alcantar MD [address] [facility] [place] [address] 10/11/2023 5:40 PM EDT Office Visit [facility] [address] [place] [address] David Umanzor MD [address] [place] [address] 03/07/2024 1:00 PM EST Office Visit Cardiology, [facility] [address] [place] [address] Manolo Millan MD [address] [place], [place] [phone] Pending Results Name Type Priority Associated Diagnoses Date /Time HEMOGLOBIN A1C Lab Routine Type 2 diabetes mellitus with hypoglycemia without coma, with long-term current use of insulin ([facility]) 04/25/2023 2:17 PM EST BASIC METABOLIC PANEL Lab Routine Stage 3a chronic kidney disease ([facility]) 04/25/2023 2:17 PM EST TSH WITH FREE T4 IF INDICATED Lab Routine Type 2 diabetes mellitus with hypoglycemia without coma, with long-term current use of insulin ([facility]) 04/25/2023 2:17 PM EST PTH Lab Routine Stage 3a chronic kidney disease ([facility]) 04/25/2023 2:17 PM EST Scheduled Procedures Name Priority Associated Diagnoses [...] 06/23/2020, Additional history exists HbA1c 02/05/2023 08/06/2022, 01/0 06/2022, 02/12/2022, Additional history exists TSH 04/13/2023 04/13/2022, /0 05/2021, 06/02/2020, Additional history exists Diabetic Eye Exam 05/27/2023 05/27/2022, , 05/27/2022, Additional history exists Mammogram 07/28/2023 07/27/2022, 07/10, 01/09/2019, Additional history exists Albumin/Creatinine Ratio 09/08/2023 023, 08/06/2022, 05/13/2021, Additional history exists GFR 10/13/2023 04/14/2023, 03/11, 02/28/2023, Additional history exists CKD PHOS USE SMARTSET 61799 12/02/2023 08/06/2022, 08/06/2022, 08/21/2021, Additional history exists CKD HGB USE SMARTSET 31266 03/25/202403/25, 03/25/2023, 02/28/2023, Additional history exists DXA [...] encounter Medical Devices Implanted Type Area Tube Washer Device Identifier Shelf Expiration Date Model / Serial / Lot [facility] Medical Embosphere Micrspheres Implanted:Qty: 2 on 11/02/2019 by Ish Grove MD at [facility] Right: Abdomen [employer] 05/11/2022 S220GH / S220GH / [id number] Syr Pf 2ml Embospheres 100-300 - [id number] Implanted:Qty: 1 on 11/14/2020 at [facility] [employer] [id number] 08/22/2023 S220GH / / [id number] Envelope Antibacterial Tyrx - [id number] Implanted:Qty: 1 on 12/29/2021 by Fatoumata Roland DO at [facility] [employer] : CRM [id number] 09/23/2022 CMR M6122 / / [id number] Stent Synergy Xd Mr 3.84q88mj - [id number] Implanted:Qty: 1 on 03/22/2022 by Katalina Pearce MD at [facility] [employer] [id number] 07/17/2023 [id number] / / [id number] Valve Berhane 3 Ultra 26mm - [id number] Implanted:Qty: 1 on 12/09/2022 by Manolo Millan MD at [facility] [employer] [id number] 12/04/2023 [id number] / / documented as of this encounter Visit Diagnoses Diagnosis Type 2 diabetes mellitus with hypoglycemia without coma, with long-term current use of insulin (HCC) Stage 3a chronic kidney disease (HCC) documented [...] patient have Health Care Power of Tank Car Cleaner? No Care Teams Tail Worker Relationship Specialty Start Date End Date David Umanzor MD [address] [place] [address] PCP - General 02/25/09 documented as of this encounter
--- OUTSIDE RECORDS SUMMARY | 2023-05-28 21:32 | External Medical Summary | Summary of Care ---
Author Name Unknown Organization [facility] Address [address] [place] [address] Phone [phone] Care Team Providers Care Monumental Stonemason Name Role Phone David Umanzor MD Primary Care Provider [phone]- [phone] Reason for Visit * Reason Onset Date Comments Advice 04/19/2023 Encounter Details Date Type Department Care Team (Late st Contact Info) Description 04/19/2023 Telephone [facility] [address] [place] [address] David Umanzor MD [address] [place] [address] Advice Allergies Active Allergy Reactions [...] 1 2 Active Blood Glucose Monitoring Suppl ([employer] Support AUTOCODE BLOOD GLUCOSE) w/Device KITIndications:DM type 2 [...] Active Fluticasone Propionate 50 MCG/ACT Nasal Suspension (Flonase)Indications:Rn Supplemental sanket rhinitis ADMINISTER 2 SPRAYS IN EACH [...] insulin ([facility]) Use to inject insulin 4 times daily 400 Each 3 3 Active Creon 38805-05114 UNIT Oral Capsule Delayed Release Particles (Pancrelipase (Pee-Rzbn-Knnn))Indicatio ns:Pancreatic insufficiency TAKE ONE CAPSULE BY MOUTH [...] bedtime. 2 mL 5 3 Active Nystatin 460195 UNIT/GM External Powder (Nystop) APPLY TO AFFECTED [...] [facility] [place]),Coronary artery disease involving [place] coronary artery of [...] Active Gabapentin 300 MG Oral Capsule (Neurontin)Indications:Ac [place] on chronic combined systolic and diastolic congestive [...] HYDROcodone-Acetaminophen 5-325 MG Oral TabletIndications:Atheros clerosis of [place] artery of left lower extremity [...] calories 0 08/09/2022 Atherosclerosis of [place] ar jania of left lower extremity with [...] 12/21/2016 Overview: Diabetic retinopathy Rheumatoid arthritis of [facility] without rheumatoid factor 01/26/2016 Last [...] DO NOT DELETE [facility] DETECT Study: Project # [id number], Ct Technician: Manny Santacruz, PhD. SUMMARY: Goal: Establish [...] contact study staff at ; after hours Ct Technician via the [facility] massage operator . Please contact study team before resolving/deleting from patients problem list. Study phone number: [phone]. Diagnosis changed due to Research Module. Go to Snapshot for study details. Encounter for examination fo r normal comparison and control in clinical research program 11/08/2018 12/10/2021 Overview: DO NOT DELETE - [facility] DETECT Study: Project # [id number], Ct Technician: Kevin Pearce, MS, MPH. SUMMARY: Goal: [...] contact study staff at ; after hours Ct Technician via the [facility] massage operator . - Please contact study team before resolving/deleting from patients problem list. Study phone number: [phone]. Diagnosis changed due to Research Module. Go [...] RESPONDERS 06/12/2002 8 Senile nuclear cataract 03/29/2002 080 10/2017 Amblyopia 03/29/2002 09/03/2021 documented as of this [...] encounter Miscellaneous Notes * Telephone Encounter - Nadeen Nunez LPN - 04/25/2023 2:40 PM EST Dear Doctor and staff Thank you for your recent order Please update Rx to include the following: Gradient Compression Stockings + Style (Knee high or Thigh High) + Quantity to supply in Pairs (insurance allows 2 pair/ 6 mo) + Diagnosis related to Edema Or Vascular Condition Examples: Edema-R60.0, DVT -I82.40, Lymphedema - I89.0, varicose veins -I83.89 Please note we do not carry [employer]. We provide stockings from [email or web address]. Thank you [facility] fax: [phone] * Telephone Encounter - Nadeen Nunez LPN - 04/21/2023 4:37 PM EST Sent info through [employer] * Telephone Encounter - Juany Yepez OSA - 04/19/2023 4:08 PM EST Rec'd call from pt stated [facility] nurse [facility]. Since she has [facility] [employer], the compression hose has to be billed primary through [employer] When they receive the denial, they will send to [facility] to process claim with the denial. Please send DME/ compression stocking through [employer] * Telephone Encounter - Simona Gore OSA - 04/19/2023 8:47 AM EST 04/19/23 Rec paperwork from [employer] for medical supplies. Paperwork put in provider's mail bin. documented in this encounter Plan of Treatment Upcoming Encounters Date Type Department Care Team (Late st Contact Info) Description 05/04/2023 11:30 AM EST Home Visit [facility] [place], [address] [place] [address] Tatyana Delaney, RN [address] [place] [address] 05/26/2023 2:00 PM EST Laboratory Laboratory, [place] [address] [place] [facility] [phone] [place], [facility] [address] [facility] [place] [address] 05/31/2023 1:30 PM EST Imaging Radiology [facility] [address] [facility] [place] [address] 06/07/2023 1:20 PM EST Office Visit Sleep Disorders Ctr [facility] [address] [facility] [place] [phone] Vira Byrd DO [address] [facility] [address] 07/27/2023 3:00 PM EDT Office Visit Cardiology, [facility] [place] [address] Wood Wong, PA-C [address] [facility] [place] [address] 08/01/2023 2:00 PM EDT Laboratory Laboratory, [place] [address] [place] [facility] [place] [phone] [facility] [address] [facility] [place] [address] 08/02/2023 2:00 PM EDT Office Visit Rheumatology [place] [address] [facility] [place] [address] Eliot Castelan CRNP [facility] [place] [address] 08/08/2023 12:30 PM EDT Office Visit Hematology/Oncology [facility] [address] [place] [address] Miguel A Alcantar MD [address] [facility] [place] [address] 10/11/2023 5:40 PM EDT [facility] [address] [place] [phone] David Umanzor MD [address] [place] [address] 03/07/2024 1:00 PM EST Office Visit Cardiology, [facility] [address] [place] [address] Manolo Millan MD [address] [place] [address] Scheduled Procedures Name Priority Associated [...] Additional history exists CKD PHOS USE SMARTSET 02186 12/02/202311/10, 08/06/2022, 08/21/2021, Additional history exists CKD HGB USE SMARTSET 20322 03/25/202403/25, 03/25/2023, 02/28/2023, Additional history exists DXA [...] this encounter Medical Devices Implanted Type Area Quick Mixer Operator Device Identifier Shelf Expiration Date Model / Serial / Lot Digital Guardian Embosphere Micrspheres Implanted:Qty: 2 on 11/02/2019 by Ish Grove MD at [facility] Right: Abdomen [employer] 05/11/2022 S220GH / [id number] / [id number] Syr Pf 2ml Embospheres 100-300 - [id number] Implanted:Qty: 1 on 11/14/2020 at [facility] [employer] [id number] 08/22/2023 S220GH / / [id number] Envelope Antibacterial Tyrx - [id number] Implanted:Qty: 1 on 12/29/2021 by Fatoumata Roland DO at [facility] [employer] : CRM [id number] 09/23/2022 CMR [id number] / / [id number] Stent Synergy Xd Mr 3.31x17so - [id number] Implanted:Qty: 1 on 03/22/2022 by Katalina Pearce MD at [facility] [place] [id number] 07/17/2023 [id number] / / [id number] Valve Berhane 3 Ultra 26mm - [id number] Implanted:Qty: 1 on 12/09/2022 by Manolo Millan MD at [facility] [employer] [id number] 12/04/2023 [id number] / / documented as of this encounter [...] the patient have Health Care Power of Supervisor Riprap Placing? No Care Teams Monumental Stonemason Relationship Specialty Start Date End Date David Umanzor MD [address] [place] [address] PCP - General 02/25/09 documented as of this encounter
--- OUTSIDE RECORDS SUMMARY | 2023-05-28 21:32 | External Medical Summary | Summary of Care ---
Author Name Unknown Organization [facility] Address [address] [place] [address] Phone [phone] Care Team Providers Care Dietary Manager Name Role Phone David Umanzor MD Primary Care Provider +1- [phone] Reason for Visit * Reason Onset Date Comments Advice 01/19/2023 Encounter Details Date Type Department Care Team (Late st Contact Info) Description 01/19/2023 Telephone Cardiology, [facility] [address] [place] [address] Services, Scheduling [address] [place] [address] Advice Allergies Active Allergy Reactions Criticality Noted Date Comments Bactrim 02/09/2010 Cephalosporins Anaphylaxis,Edema face/lips/tongue High 04/11/2009 Anaphylaxis to cefaclor, facial swelling to cephalexin. Ciprofloxacin Low 03/30/2021 Other reaction(s): Nausea Butorphanol Tartrate 02/09/2010 Heart racing Sulfa Antibiotics Hives High 05/22/2002 Other reaction(s): Hives Trimethoprim 04/15/2022 Other reaction(s): Hives documented as of this encounter (statuses as of 04/20/2023) Medications Medication Sig Dispensed Refills Start Date [...] 2 causing neurological disease, not at goal ([facility]) Test blood sugar 4 times daily Dx: E11.9 1 Kit 0 03/19/2019 Active PRODIGY LANCETS 28G MISCIndications:DM type 2, not at goal ([facility]) TEST BLOOD SUAGER 4 TIMES A DAY [...] hemoglobin A1c goal of less than 7.0% ([facility]),Type 2 diabetes mellitus with stage 3 chronic kidney disease, with long-term current use of insulin, unspecified whether stage 3a or 3b CKD ([facility]),DM type 2 causing neurological disease, not at goal ([facility]) TEST BLOOD SUGAR UP TO FOUR TIMES [...] daily 400 Each 3 08/06/2022 Active Creon 57472-67735 UNIT Oral Capsule Delayed Release Particles (Pancrelipase (Vor-Pxgh-Nydu))Indic ations:Pancreatic insufficiency TAKE ONE CAPSULE BY MOUTH [...] at bedtime. 2 mL 5 08/27/2022 Active Nystatin 591591 UNIT/GM External Powder (Nystop) APPLY TO AFFECTED AREAS UNDER THE BREASTS THREE TIMES PER DAY NEEDED 30 g 1 09/13/2022 Active NovoLOG FlexPen 100 UNIT/ML Subcutaneous Solution [...] EF (heart failure with reduced ejection fraction) ([facility]),Coronary artery disease involving [place] coronary artery of [place] heart without angina pectoris,Nonrheumatic aortic valve stenosis,Cardiac pacemaker in situ,Tachy-wilfrido syndrome ([facility]) Take 1 Tablet by mouth at bedtime. [...] coma, without long-term current use of insulin ([facility]) Inject 30 units daily 45 mL 1 [...] before bedtime. 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 stage 3a chronic kidney disease 01/17/2023 Presence of permanent cardiac pacemaker 11/27/19 23 History of kidney stones 09/15/2022 Non-pressure chronic ulcer of lower leg 06/06/20 23 Last Assessment & Plan: Bandage noted [...] to excess calories 0 08/09/2022 Atherosclerosis of [place] ar jania of left lower extremity with intermittent claudication 08/09/2022 Coronary artery disease invo lving [place] coronary artery of [place] heart with angina pectoris 03/22/2022 Last Assessment [...] -- AHI 17.1, significant hypoxia and PLMS [facility] Vitamin D deficiency 04/21/2011 Iron deficiency anemia 03/15/2011 Overview: ICD-10 update of inactive term Last Assessment & Plan: Last hemoglobin 11.4 on 08/06 -continue ferrous sulfate. Med list updated. High triglycerides 02/13/2004 Overview: TG's as high as 6400 Postsurgical hypothyroidism 02/13/2004 Last Assessment & Plan: Last TSH 0.9 on 04/13/2022 -continue Synthroid documented as of this encounter (statuses as of 04/20/2023) Resolved Problems Problem Noted Date Diagnosed Date [...] DELETE [facility] DETECT Study: Project # [id number], Sales And Marketing Representative: Manny Santacruz, PhD. SUMMARY: Goal: Establish test [...] study staff at ; after hours Sales And Marketing Representative via the [facility] plate and frame filter operator . Please contact study team before resolving/deleting from patients problem list. Study phone number: [phone]. Diagnosis changed due to Research Module. Go to Snapshot for study details. Encounter for examination fo r normal comparison and control in clinical research program 11/08/2018 12/10/2021 Overview: DO NOT DELETE - [facility] DETECT Study: Project # [id number], Sales And Marketing Representative: Kevin Pearce, MS, MPH. SUMMARY: Goal: Establish [...] study staff at ; after hours Sales And Marketing Representative via the [facility] hospital plate and frame filter operator . - Please contact study team before resolving/deleting from patients problem list. Study phone number: [phone]. Diagnosis changed due to Research Module. Go [...] as of this encounter (statuses as of 04/20/2023) Immunizations Name Administration Dates Next Due COVID-19 mRNA, LNP-s, No Pre serve, 2-Dose Series (Moderna) 06/08/2021,12/17/2020,06/23/2020,0 11/2020 H1N1 2009 Influenza, IM 04/06/2009 MMR - Measles/Mumps/Rubella Vaccine 05/07/2019 PPD 09/09/2010,10/06/2009 Pneumococcal Conjugate Vacc, 13 Valent (Prevnar) 02/12/2015 Pneumococcal Polysaccharide PPV23 (Pneumovax) 05/07/2019,12/27/2013,10/24/2008 Seasonal Influenza Virus Vac cine, Unspecified Formulation 01/27/2021,12/25/2019,02/08/2019,01/10,01/11/2017,03/17/2016,02/13/20 15,12/27/2013,01/31/2013,12/22/2011,0 12/28/2010,01/08/2010,01/18/2008 Seasonal Influenza, PF, 6 M & above, IM , (FluLaval or Fluzone) 12/25/2019,02/08/2019,02/01/2018,06/2016,04/10/2009,04/06/2009 02/09/2020 Seasonal Influenza, Quadriva lent Hd (Fluzone Hd) 12/17/2022(Deferred: Patient Refused),01/21/2022,01/27/2021 Seasonal Influenza, Quadriva lent, No [...] encounter Miscellaneous Notes * Telephone Encounter - Nneka Mora OSA - 01/19/2023 8:53 AM EDT Pt is requesting to speak directly with nurse at office regarding medication Megoxide. Patient would like to know what is the dosage she is suppose to be taking. Transferred to office. documented in this encounter Plan of Treatment Upcoming Encounters Date Type Department Care Team (Late st Contact Info) Description 04/21/2023 1:00 PM EST Cardiac Studies Cardiology, [address] [place] [address] [facility] [address] [facility] [address] 04/22/2023 11:00 AM EST Office Visit Nephrology, [facility] [address] [place] [address] Luz Tobias MD [address] [facility] [place], [place] [address] 04/25/2023 1:20 PM EST Office Visit Family [facility], [place] [address] [place] [address] David Umanzor MD [address] [place] [address] 05/04/2023 11:30 AM EST Home Visit ising at [facility] [address] [facility] [place] [address] Tatyana Delaney RN [address] [facility] [address] 05/26/2023 2:00 PM EST Laboratory Laboratory, [place] [address] [facility] [phone] [facility] [address] [place] [address] 05/31/2023 1:30 PM EST Imaging Radiology [facility] [address] [facility] [place] [address] 06/07/2023 1:20 PM EST Office Visit Sleep Disorders Ctr [facility] [address] [facility] [place] [phone] Vira Byrd DO [address] [facility] [place] [address] 07/27/2023 3:00 PM EDT Office Visit Cardiology, [facility] [place] [address] Wood Wong PA-C [address] [facility] [address] 08/01/2023 2:00 PM EDT Laboratory Laboratory, [place] [address] [place] [address] [place], Laboratory [address] [place] [address] 08/02/2023 2:00 PM EDT Office Visit Rheumatology [place] [address] [place] [address] Eliot Castelan CRNP [facility] [place] [address] 08/08/2023 12:30 PM EDT Office Visit Hematology/Oncology [facility] [address] [facility] [place] [address] Miguel A Alcantar MD [address] [place] [address] 03/07/2024 1:00 PM EST Office Visit Cardiology, [facility] [place] [address] Manolo Millan MD [address] [place] [address] Scheduled Procedures Name Priority Associated Diagnoses Date/Ti [...] Additional history exists CKD PHOS USE SMARTSET 08088 12/02/2023 0806/2022, 08/06/2022, 08/21/2021, Additional history exists CKD HGB USE SMARTSET 63823 03/25/202403/25, 03/25/2023, 02/28/2023, Additional history exists DXA [...] this encounter Medical Devices Implanted Type Area University Manager Device Identifier Shelf Expiration Date Model / Serial / Lot [facility] Medical Embosphere Micrspheres Implanted:Qty: 2 on 11/02/2019 by Ish Grove MD at [facility] Right: Abdomen [employer] 05/11/2022 S220GH / S220GH / [id number] Syr Pf 2ml Embospheres 100-300 - [id number] Implanted:Qty: 1 on 11/14/2020 at [facility] [employer] [id number] 08/22/2023 S220GH / / [id number] Envelope Antibacterial Tyrx - [id number] Implanted:Qty: 1 on 12/29/2021 by Fatoumata Roland DO at [facility] [employer] : CRM [id number] 09/23/2022 CMR M6122 / / [id number] Stent Synergy Xd Mr 3.47l85xg - [id number] Implanted:Qty: 1 on 03/22/2022 by Katalina Pearce MD at [facility] [employer] [id number] 07/17/2023 [id number] / / [id number] Valve Berhane 3 Ultra 26mm - [id number] Implanted:Qty: 1 on 12/09/2022 by Manolo Millan MD at [facility] [employer] [id number] 12/04/2023 [id number] / / documented as of this encounter [...] the patient have Health Care Power of Federal District Clerk? No Care Teams Dietary Manager Relationship Specialty Start Date End Date aDvid Umanzor MD [address] [place] [address] PCP - General 02/25/09 documented as of this encounter
--- OUTSIDE RECORDS SUMMARY | 2023-05-28 21:32 | External Medical Summary | Summary of Care ---
Author Name Unknown Organization [facility] Address [address] [facility] [place] [address] Phone [phone] Care Team Providers Care Surface Plate Inspector Name Role Phone David Umanzor MD Primary Care Provider [phone] Reason for Visit * Reason Onset Date Comments Test Results 04/19/2023 Encounter Details Date Type Department Care Team (Late st Contact Info) Description 04/19/2023 Telephone Cardiology, [facility] [address] [place] [address] Wood Wong PA-C [address] [facility] [place] [address] Test Results Allergies Active Allergy Reactions Criticality Noted Date Comments Bactrim 02/09/2010 Cephalosporins Anaphylaxis,Edema face/lips/tongue High 04/11/2009 Anaphylaxis to cefaclor, facial swelling to cephalexin. Ciprofloxacin Low 03/30/2021 Other reaction(s): Nausea Butorphanol Tartrate 02/09/2010 Heart racing Sulfa Antibiotics Hives High 05/22/2002 Other reaction(s): Hives Trimethoprim 04/15/2022 Other reaction(s): Hives documented as of this encounter (statuses as of 04/19/2023) Medications Medication Sig Dispensed Refills Start Date [...] 1 2 Active Blood Glucose Monitoring Suppl (Fed [employer]book[employer] AUTOCODE BLOOD GLUCOSE) w/Device KITIndications:DM type 2 causing neurological disease, not at goal ([facility]) Test blood sugar 4 times daily Dx: E11.9 1 Kit 0 9 Active PRODIGY LANCETS 28G MISCIndications:DM type 2, not at goal ([facility]) TEST BLOOD SUAGER 4 TIMES A [...] hemoglobin A1c goal of less than 7.0% ([facility]),Type 2 diabetes mellitus with stage 3 chronic kidney disease, with long-term current use of insulin, unspecified whether stage 3a or 3b CKD ([facility]),DM type 2 causing neurological disease, not at goal ([facility]) TEST BLOOD SUGAR UP TO FOUR TIMES DAILY 400 Strip 3 2 Active Fluticasone Propionate 50 MCG/ACT Nasal Suspension (Flonase)Indications:Batch Tester sanket rhinitis ADMINISTER 2 SPRAYS IN [...] daily 400 Each 3 3 Active Creon 21501-04678 UNIT Oral Capsule Delayed Release Particles (Pancrelipase (Vcr-Pbgw-Ojro))Indicatio ns:Pancreatic insufficiency TAKE ONE CAPSULE BY MOUTH [...] bedtime. 2 mL 5 3 Active Nystatin 701398 UNIT/GM External Powder (Nystop) APPLY TO AFFECTED [...] TabletIndications:HFrEF (heart failure with reduced ejection fraction) ([facility]),Coronary artery disease involving [place] coronary artery of [place] heart without angina pectoris,Nonrheumatic aortic valve stenosis,Cardiac pacemaker in situ,Tachy-wilfrido syndrome ([facility]) Take 1 Tablet by mouth at [...] coma, without long-term current use of insulin ([facility]) Inject 30 units daily 45 mL [...] combined systolic and diastolic congestive heart failure ([facility]) Take 1 Capsule by mouth in [...] MG Oral TabletIndications:Atheros clerosis of [place] artery of left lower extremity with intermittent claudication (HCC),Pain of left lower extremity Take 1 Tablet by mouth every 6 hours as needed for Pain, Mild. 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 Cardiomyopathy 04/27/2021 BMI 45.0-49.9, adult 04/27/2021 Overview: Body Mass Index: 49.20 kg/mAbnormal 1.575 m (5' 2") as of 03/22/2022 122 kg (269 lb) as of 03/22/2022 Hepatocellular carcinoma 12/12/2019 Last Assessment & Plan: As of August, 2 new masses found in the liver -follow-up with Oncology next week Renal osteodystrophy 11/15/2017 Stage 3a chronic kidney disease 07/12/2017 Paroxysmal atrial fibrillation 06/03/2017 HTN, goal below 140/90 01/10/2017 Last Assessment & Plan: BP stable -continue metoprolol Dyslipidemia, goal LDL below 70 12/21/2016 Blind 12/21/2016 Overview: Diabetic retinopathy Rheumatoid arthritis of [facility] sites without rheumatoid factor [...] -- AHI 17.1, significant hypoxia and PLMS [facility] Vitamin D deficiency 04/21/2011 Iron deficiency anemia 03/15/2011 Overview: ICD-10 update of inactive term Last Assessment & Plan: Last hemoglobin 11.4 on 08/06 -continue ferrous sulfate. Med list updated. High triglycerides 02/13/2004 Overview: TG's as high as 6400 Postsurgical hypothyroidism 02/13/2004 Last Assessment & Plan: Last TSH 0.9 on 04/13/2022 -continue Synthroid documented as of this encounter (statuses as of 04/19/2023) Resolved Problems Problem Noted Date Diagnosed Date [...] of thyroid 09/03/2021 09/03/2021 Hypothyroidism 09/03/2021 09/03/2021 History of corneal ulcer 12/15/2018 Encounter for examination fo r normal comparison and control in clinical research program 11/08/2018 11/12/2019 Overview: DO NOT DELETE [facility] DETECT Study: Project # [id number], Office Equipment Technician: Manny Santacruz, PhD. SUMMARY: Goal: [...] contact study staff at ; after hours Office Equipment Technician via the [facility] regasification plant operator . Please contact study team before resolving/deleting from patients problem list. Study phone number: [phone]. Diagnosis changed due to Research Module. Go to Snapshot for study details. Encounter for examination fo r normal comparison and control in clinical research program 11/08/2018 12/10/2021 Overview: DO NOT DELETE - [facility] DETECT Study: Project # [id number], Office Equipment Technician: Kevin Pearce, MS, MPH. SUMMARY: [...] contact study staff at ; after hours Office Equipment Technician via the [facility] regasification plant operator . - Please contact study team before resolving/deleting from patients problem list. Study phone number: [phone]. Diagnosis changed due to Research Module. Go [...] as of this encounter (statuses as of 04/19/2023) Immunizations Name Administration Dates Next Due COVID-19 [...] 04/21/2023 1:00 PM EST Cardiac Studies Cardiology, [facility] [address] [facility] [place] [address] [facility] [address] [place] [address] 04/22/2023 11:00 AM EST Office Visit Nephrology, [facility] [address] [facility] [place] [address] Luz Tobias MD [address] [place] [address] 04/25/2023 1:20 PM EST Office Visit [facility] [address] [place] [phone] David Umanzor MD [address] [place] [address] 05/04/2023 11:30 AM EST Home Visit [facility] [address] [facility] [place] [address] Tatyana Delaney, RN [address] [facility] [place] [address] 05/26/2023 2:00 PM EST Laboratory [facility], [facility] [address] [facility] [phone] [facility] [address] [facility] [address] 05/31/2023 1:30 PM EST Imaging Radiology [facility] [address] [place] [address] 06/07/2023 1:20 PM EST Office Visit [facility] [address] [facility] [place] [phone] Vira Byrd, [address] [place] [address] 07/27/2023 3:00 PM EDT Office Visit Cardiology, [facility] [address] [facility] [place] [address] Wood Wong PAMirandaC [address] [place] [address] 08/01/2023 2:00 PM EDT Laboratory Laboratory, [place] [address] [facility] [phone] [place], [facility] [address] [facility] [address] 08/02/2023 2:00 PM EDT Office Visit Rheumatology [place] [id number] [facility] [place] [address] Eliot Castelan CRNP [facility] [place] [address] 08/08/2023 12:30 PM EDT Office Visit Hematology/Oncology [facility] [address] [place] [address] Miguel A Alcantar MD [address] [place] [address] 03/07/2024 1:00 PM EST Office Visit Cardiology, [facility] [address] [place] [address] Manolo Millan MD [address] [place] [address] Scheduled Orders Name Type Priority Associated Diagnoses [...] Additional history exists CKD PHOS USE SMARTSET 05134 12/02/202311/10, 08/06/2022, 08/21/2021, Additional history exists CKD HGB USE SMARTSET 69291 03/25/202403/25, 03/25/2023, 02/28/2023, Additional history exists DXA [...] this encounter Medical Devices Implanted Type Area Physical Education Teacher Device Identifier Shelf Expiration Date Model / Serial / Lot [employer] Embosphere Micrspheres Implanted:Qty: 2 on 11/02/2019 by Ish Grove MD at [facility] Right: Abdomen [employer] 05/11/2022 S220GH / [id number] / [id number] Syr Pf 2ml Embospheres 100-300 - [id number] Implanted:Qty: 1 on 11/14/2020 at [facility] [employer] [id number] 08/22/2023 S220GH / / [id number] Envelope Antibacterial Tyrx - [id number] Implanted:Qty: 1 on 12/29/2021 by Fatoumata Roland DO at OR [facility] [employer] : CRM [id number] 09/23/2022 CMR [id number] / / [id number] Stent Synergy Xd Mr 3.76g83so - [id number] Implanted:Qty: 1 on 03/22/2022 by Katalina Pearce MD at [facility] [employer] [id number] 07/17/2023 [id number] / / [id number] Valve Berhane 3 Ultra 26mm - [id number] Implanted:Qty: 1 on 12/09/2022 by Manolo Millan MD at [facility] [employer] [id number] 12/04/2023 [id number] / / documented as of this encounter [...] the patient have Health Care Power of Construction Grip? No Care Teams Surface Plate Inspector Relationship Specialty Start Date End Date David Umanzor MD [address] [place] [address] PCP - General 02/25/09 documented as of this encounter
--- OUTSIDE RECORDS SUMMARY | 2023-05-28 21:32 | External Medical Summary ---
Author Name Unknown Address Unknown Organization [id number]:[facility] [place] - [facility] [address] [facility] [address] Laboratory Report Ordering Provider Test Date Status RYLEE PINTOELIE 04/25/2023 14:17:48 Final Observation Date Value Abnormality Reference (Units ) Status BUN 04/25/2023 14:17:48 31 Above high normal 6-20 (mg/dL) Final Creatinine 04/25/2023 14:17:48 1.2 Above high normal 0.5-1.0 (mg/dL) Final Glomerular filtration rate/1.73 sq M.predicted [Volume Rate/Area] in Serum, Plasma or Blood by Creatinine-based formula (CKD-EPI) 04/25/2023 14:17:48 50 Below low normal >=60 (mL/min) Final eGFR is calculated based on the CKD-EPI 2020 equation SODIUM 04/25/2023 14:17:48 137 135-146 (m mol/L) Final Potassium 04/25/2023 14:17:48 4.7 3.5-5.1 (m mol/L) Final Cl 04/25/2023 14:17:48 100 98-107 (mm ol/L) Final CO2 04/25/2023 14:17:48 27 22-32 (mmo l/L) Final Anion gap 04/25/2023 14:17:48 10 7-15 (mmol /L) Final Glucose 04/25/2023 14:17:48 200 Above high normal 70 -120 (mg/dL) Final Calcium 04/25/2023 14:17:48 8.9 8.4-10.2 ( mg/dL) Final Performing Location [facility] [place] - [address] [facility] [address]
--- OUTSIDE RECORDS SUMMARY | 2023-05-28 21:32 | External Medical Summary ---
Author Name Unknown Address Unknown Organization [id number][facility] [place] [address] [place] [address] Laboratory Report Ordering Provider Test Date Status NILES PINTO 04/25/2023 14:17:48 Final Observation Date Value Abnormality Reference (Units ) Status Parathyrin.intact [Mass/volume] in Serum or Plasma 04/25/2023 14:17:48 80 Above high normal 15-65 (pg/mL) Final Performing Location [facility] [place] [address] [place] [address]
--- OUTSIDE RECORDS SUMMARY | 2023-05-28 21:32 | External Medical Summary ---
Author Name Unknown Address Unknown Organization [id number][place] [place] [address] [facility] [address] Laboratory Report Ordering Provider Test Date Status NILES PINTO 04/25/2023 14:17:48 Final Observation Date Value Abnormality Reference (Units ) Status HbA1C 04/25/2023 14:17:48 7.7 Above high normal 4. 0-5.6 (%) Final The use of HbA1c to monitor glycemic status is based on normal hemoglobin and HbA composition. This test should not be used in patients with abnormal hemoglobin that affects the half life of the red blood cell or the in vivo glycation rates. Glucose, estimated average 04/25/2023 14:17:48 174 Above high normal <126 (mg/dL) Gal diaz Performing Location [facility] [place] [address] [facility] [address]
--- OUTSIDE RECORDS SUMMARY | 2023-05-28 21:33 | External Medical Summary | Summary of Care ---
Author Name Unknown Organization [facility] Address [address] [facility] [place] [address] Phone [phone] Care Team Providers Care Sales Support Assistant Name Role Phone David Umanzor MD Primary Care Provider [phone] Reason for Visit * Reason Comments Follow Up Encounter Details Date Type Department Care Team (Late st Contact Info) Description 04/14/2023 3:00 PM EST Office Visit Cardiology, [facility] [address] [place] [address] Wood Wong PA-C [address] [place] [address] HFrEF (heart failure with reduced ejection fraction) ([facility])*; Hyperkalemia; Bilateral carotid bruits; Dyslipidemia, goal LDL below 70; Carotid stenosis, bilateral; S/P TAVR (transcatheter aortic valve replacement); Coronary artery disease involving kiowa tribe coronary artery of kiowa tribe heart without angina pectoris; Tachy-brown syndrome ([facility]); Presence of cardiac pacemaker; Encounter for monitoring diuretic therapy Allergies Active Allergy Reactions Criticality Noted Date Comments Bactrim 02/09/2010 Cephalosporins Anaphylaxis,Edema face/lips/tongue High 04/11/2009 Anaphylaxis to cefaclor, facial swelling to cephalexin. Ciprofloxacin Low 03/30/2021 Other reaction(s): Nausea Butorphanol Tartrate 02/09/2010 Heart racing Sulfa Antibiotics Hives High 05/22/2002 Other reaction(s): Hives Trimethoprim 04/15/2022 Other reaction(s): Hives documented as of this encounter (statuses as of 04/17/2023) Medications Medication Sig Dispensed Refills Start Date [...] 03/21/20 12 Active Blood Glucose Monitoring Suppl (60mo AUTOCODE BLOOD GLUCOSE) w/Device KITIndications:DM type 2 [...] causing neurological disease, not at goal (HCC) TEST BLOOD SUGAR UP TO FOUR TIMES DAILY 400 Strip 3 02/16/20 Active Fluticasone Propionate 50 MCG/ACT Nasal Suspension [...] 400 Each 3 08/07/19 23 Active Creon 43156-93042 UNIT Oral Capsule Delayed Release Particles (Pancrelipase ([id number]))Indicat ions:Pancreatic insufficiency TAKE ONE CAPSULE BY MOUTH [...] bedtime. 2 mL 5 08/28/19 23 Active Nystatin 764016 UNIT/GM External Powder (Nystop) APPLY TO AFFECTED AREAS UNDER THE BREASTS THREE TIMES PER DAY NEEDED 30 g 1 09/14/19 23 Active NovoLOG FlexPen 100 UNIT/ML Subcutaneous [...] ([facility]),Coronary artery disease involving kiowa tribe coronary artery of kiowa tribe heart without angina pectoris,Nonrheumatic aortic valve stenosis,Cardiac pacemaker in situ,Tachy-brown syndrome ([facility]) Take 1 Tablet by mouth at [...] mouth in the morning. 90 Tablet 3 12/20/20 23 Active B-12 1500 MCG PO TBCRIndications:Pernici ous anemia one pill each day 90 Tab 3 03/09/20 10 024 Discontinued LORazepam 0.5 MG Oral Tablet [...] as of this encounter (statuses as of 04/17/2023) Active Problems Problem Noted Date Diagnosed Date [...] S/P WALTER to mid LAD on 03/22/2022 Tachy-brown syndrome 12/29/2021 Last Assessment & Plan: Status [...] Diabetic retinopathy Rheumatoid arthritis of [facility] without rheumatoid factor 01/26/2016 [...] -- AHI 17.1, significant hypoxia and PLMS [facility] Vitamin D deficiency 04/21/2011 Iron deficiency anemia 03/15/2011 Overview: ICD-10 update of inactive term Last Assessment & Plan: Last hemoglobin 11.4 on 08/06 -continue ferrous sulfate. Med list updated. High triglycerides 02/13/2004 Overview: TG's as high as 6400 Postsurgical hypothyroidism 02/13/2004 Last Assessment & Plan: Last TSH 0.9 on 04/13/2022 -continue Synthroid documented as of this encounter (statuses as of 04/17/2023) Resolved Problems Problem Noted Date Diagnosed Date [...] The Chronically Ill DETECT Study: Project # [id number], Push Bench Operator Helper: Manny H. Neeta, PhD. SUMMARY: Goal: Establish test characteristics (sensitivity, [...] contact study staff at ; after hours Push Bench Operator Helper via the [facility] coal tower operator . Please contact study team before resolving/deleting from patients problem list. Study phone number: [phone]. Diagnosis changed due to Research Module. Go to [facility] for study details. Encounter for examination fo r normal comparison and control in clinical research program 11/08/2018 12/10/2021 Overview: DO NOT DELETE - [facility] Study: Project # [id number], Push Bench Operator Helper: Kevin Pearce, MS, MPH. SUMMARY: [...] contact study staff at ; after hours Push Bench Operator Helper via the [facility] coal tower operator . - Please contact study team before resolving/deleting from patients problem list. Study phone number: [phone]. Diagnosis changed due to Research Module. Go [...] as of this encounter (statuses as of 04/17/2023) Immunizations Name Administration Dates Next Due COVID-19 [...] Sign Reading Time Taken Comments Blood Pressure 118/72 04/14/2023 3:03 PM EST Pulse 68 04/14/2023 3:03 PM EST Temperature - - Respiratory Rate 14 04/14/2023 3:03 PM EST Oxygen Saturation - - Inhaled Oxygen Concentration - - Weight 106.6 kg (235 lb) 04/14/2023 3:03 PM EST Height - - Body Mass Index 41.63 02/02/2023 8:52 AM EDT documented in this encounter Functional Status Functional [...] as of this encounter Progress Notes * Wood Wong PA-C - 04/14/2023 3:23 PM EST History of Present Illness: Orquidea Valencia is a very pleasant yet markedly medically complex 73-year-old female who returns today for cardiology follow-up evaluation. Patient most recently has been following with Mrs. Suggs. Torsemide increased to 150 mg/day in February 2023. Patient notes improvement in dyspnea since lastevaluation. No chest pain, chronically with intermittent indigestion related to certain foods as well as back pain aided by Biofreeze and hydrocodone. Patient notes following closely with center homecare as well as [facility] regarding lower extremity wounds which are currently wrapped. Patient notes blisters are improving, without evidence of infection. No palpitations. No syncope. Problem List: Low flow/low gradient severe aortic stenosis, s/p TAVR (# 26 mm Fisher Berhane S3 Ultra valve) on 12/09/2022 Systolic and diastolic congestive heart failure. LVEF 30% in December 2022. Upgrade to an ICD not felt to be indicated when evaluated by EP in October 2022. Chest discomfort leading to abnormal nuclear stress testing in March 2023, cardiac catheterization on 03/22/2022 revealing a 70% mid LAD stenosis status post PCI with a 3 x 20 mm Synergy drug eluting stent with excellent angiographic results, mild luminal irregularities elsewhere Tachy-Bronw Syndrome s/p dual chamber Medtronic ppm, 12/29/2021 Paroxysmal atrial fibrillation/flutter [id number] Score is 8 points. Anticoagulation risk felt to be greater than the benefit given microscopic hematuria, frequent urological procedures, hemorrhoidal bleeding, AVMs, thrombocytopenia, liver cancer, ambulatory dysfunction, blindness Carotid artery disease with moderate right internal carotid artery stenosis, mild left internal carotid artery stenosis Diabetes mellitus Chronic kidney disease Patient Active Problem List Diagnosis Code High [...] Hepatocellular carcinoma (HCC) C22.0 Cardiomyopathy (HCC) I42.9 BMI 45.0-49.9, adult (HCC) Z68.42 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 Combined systolic and diastolic congestive heart failure (HCC) 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 Type 2 diabetes mellitus with stage 3a chronic kidney disease, with long-term current use of insulin (HCC) E11.22, N18.31, Z79.4 Open-angle glaucoma H40.10X0 Severe aortic stenosis I35.0 Tachy-brown syndrome (HCC) I49.5 Coronary artery disease involving kiowa tribe coronary artery of kiowa tribe heart with angina pectoris ([facility])I25.119 S/P primary angioplasty with coronary stent Z95.5 Anxiety state F41.1 Cyst of pancreas K86.2 Morbid (severe) obesity due to excess calories ([facility]) E66.01 Atherosclerosis of kiowa tribe artery of left lower extremity with intermittent claudication (HCC) I70.212 Non-pressure chronic ulcer of lower leg (HCC) L97.909 Varicose veins of unspecified lower extremity with ulcer of unspecified site (CODE) ([facility]) I83.009 History of kidney stones Z87.442 Presence of permanent cardiac pacemaker Z95.0 Hypertensive heart disease with combined systolic and diastolic heart failure and stage 3a chronic kidney disease ([facility]) I13.0, I50.40, N18.31 Thrombocytopenia ([facility]) D69.6 Past Medical History: Diagnosis Date A-fib ([facility]) Acute pancreatitis Hx of 22episodes; due to high TG's Benign neoplasm of colon 07/17/2014 adenomatous polyps, repeat 1 yr Calculus of kidney 09/03/2021 CHF (congestive heart failure) ([facility]) Complicated UTI (urinary tract infection) 04/02/2011 NOTED IN 2010 HISTORICAL Corneal ulcer (including herpetic), right 03/10/2017 Coronary artery disease involving kiowa tribe coronary artery of kiowa tribe heart with angina pectoris ([facility])03/22/2022 Diabetic foot ulcer ([facility]) 09/03/2021 DM type 2 causing eye disease, not at goal ([facility]) Now blind DM type 2 causing neurological disease, not at goal ([facility]) 10/24/2008 Type 2 DM with neuropoathy DM type 2 causing renal disease, not at goal ([facility]) dx 1979 Type 2 DM with nephropathy Gastric ulcer High triglycerides TGs as high as 8800 Hypertensive heart and kidney disease with heart failure ([facility]) 09/10/2021 Hypopotassemia Intervertebral disc prolapse L5-S1 disc herniation; chronic LBP Malignant neoplasm of thyroid gland ([facility]) 2000 Very small area of Papillary Cancer Menopause 1982 Surgical Morbid obesity with BMI of 50.0-59.9, adult ([facility]) 11/15/2017 Nephrolithiasis 09/03/2021 DUPLICATE Non-toxic multinodular goiter 2000 Had surgery; main nodules were benign Obstructive sleep apnea on CPAP 03/31/2012 Papillary carcinoma of thyroid ([facility]) 09/03/2021 Postsurgical hypothyroidism S/P primary angioplasty with coronary stent 03/22/2022 S/P WALTER to mid LAD on 03/22/2022 Toxic diffuse goiter 1969's Treated with anti-thyroid drug therapy Unspecified polyarthropathy or polyarthritis, other specified sites Past Surgical History: Procedure Laterality Date APPENDECTOMY W/OTHER PROCEDURE 1982 Removed during hysterectomy CARPAL TUNNEL SURGERY Bilateral CATARACT SURGERY,COMPLEX 2001 OS, without IOL CLOSE EYELID BY SUTURE Right 12/24/2016 COLONOSCOPY, DIAGNOSTIC (RECTUM) 07/17/2014 adenomatous polyps, repeat 1 yr/[facility] COLONOSCOPY, DIAGNOSTIC (RECTUM) 08/25/2015 adenomatous polyps, diverticulosis, lipoma, repeat 3 yrs/[facility] COLONOSCOPY, DIAGNOSTIC (RECTUM) 01/11/2019 adenomatous polyps, repeat 3 yrs/[facility] CORONARY ANGIOGRAPHY W/LEFT HEART CATH Right 03/22/2022 CORONARY ANGIOGRAPHY W/LEFT HEART CATH performed by Katalina Pearce MD at [facility] CYSTOSCOPY 07/10/2012 INFORMATION Right 12/03/2021 cysto, stents INSERT/REPLACE PACEMAKER,ATRIAL/VENTRICULAR Left 12/29/2021 NEW DDD PACEMAKER IMPLANT performed by Fatoumata Roland DO at [facility] IR ARTERIAL EMBOLIZATION 11/14/2020 IR ARTERIAL INTERVENTION [...] by Manolo Millan MD at [facility] REPLACE AORTIC VALVE, PERCUTANEOUS FEMORAL Bilateral 12/09/2022 REPLACE AORTIC VALVE, PERCUTANEOUS FEMORAL performed by Thony Valdivia MD at [facility] TOTAL HYSTERECTOMY 1982 MARLIN.BSO for Endometriosis Family History Problem Relation Age of Onset Diabetes Mother All Type 2 Diabetes Father Diabetes Grandmother (Maternal) Diabetes Grandmother (Paternal) Endocrine Disorder Father Marekdly elevated lipids, mainly TG's Heart Disorder Mother CABG, Hx of multiple VA's Heart Disorder Father PVD, bilateral amputee, had CAD also ( of an VA Diabetes Sister Diabetes Brother Hypertension Grandfather (Paternal) Arthritis Son Social History Socioeconomic History Marital status: Spouse name: Tomer Number of children: 1 Years of education: 12 Highest education level: Not on file Occupational History 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: 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 Tobacco Use Smoking status: Never Smokeless tobacco: Never Vaping Use Vaping Use: Never used Substance and Sexual Activity Alcohol use: No Comment: Drank in the past, but never regularly Drug use: No Sexual activity: Not Currently Other Topics Concern Not on file Social History Narrative Legally blind since 2001 (OD; blind OS since ) in 1972 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 She at the age of 61. Father with DM and CAD, status post bilaterally lower extremity amputation. He at 63. Brother with CAD. Sister with diabetes mellitus, without cardiac issues. Social History: Nonsmoker. Alcohol: Rare. No illegal drug use. to [facility]. One child. Disabled, previously working for [employer], [employer], [employer], and [employer]. Complete Review of Systems: Constitutional: No current fevers or chills. HEENT: Severe myopic. Multiple detached retina. + Glaucoma. 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 Legally blind. Pulmonary: + LAQUITA. No history of asthma, emphysema, or COPD. No PE. Cardiac: CAD. CHF. Cardiomyopathy. Paroxysmal atrial fibrillation GI/Abd: Hepatocellular cancer. History of recurrent pancreatitis. Occasional dysphagia. Chronic loose stool. Excessive gas. Stage III CKD. Renal calculi, multiple stents. Vascular: + Carotid artery disease. No AAA. No lower extremity claudication. Hematologic: + Anemia, status post IV iron infusions Rheumatologic: Rheumatoid arthritis. Musculoskeletal: Back pain. Prior back intervention. Knee pain Extremities: Recurrent lower extremity cellulitis. Lymphedema Neurologic: History of TIA x 2. No history of seizure. Female : Recurrent bladder infections, urosepsis, hydronephrosis, right ureter stones, multiple kidney stones. Followed by [facility]. Endocrine: DM with CKD, retinopathy, nephropathy, neuropathy. Thyroid cancer. Postsurgical hypothyroidism. Accidental overdose (Lorazepam) in 2018. Complete Review of Systems is as stated above, negative, or noncontributory. Review of patient's allergies indicates: Allergen Reactions [...] 1 Bottle 1 Blood Glucose Monitoring Suppl (60mo AUTOCODE BLOOD GLUCOSE) w/Device KIT Test blood sugar 4 times daily Dx: E11.9 1 Kit 0 60mo LANCETS 28G MISC TEST BLOOD SUAGER 4 [...] TEST BLOOD SUGAR UP TO FOUR TIMES [id number] Strip 3 Fluticasone Propionate 50 MCG/ACT Nasal [...] insulin 4 times daily 400 Each3 Creon 30193-76445 UNIT Oral Capsule Delayed Release Particles (Pancrelipase (Rhi-[id number])) TAKE ONE CAPSULE BY MOUTH WITH EACH [...] eye everynight at bedtime. 2 mL 5 Nystatin 823939 UNIT/GM External Powder (Nystop) APPLY TO AFFECTED AREAS UNDER THE BREASTS THREE TIMES PER DAY NEEDED 30 g 1 NovoLOG FlexPen 100 UNIT/ML Subcutaneous Solution Pen-injector [...] 8 tubes at atime.. 28 g 6 LORazepam 0.5 MG Oral Tablet (Ativan) TAKE 1 TABLET 3 TIMES A DAY NEEDED FOR ANXIETY 40 Tablet 1 Hydroxychloroquine Sulfate 200 MG Oral Tablet (Plaquenil) [...] No current facility-administered medications for this visit. Physical Exam BP 118/72 | Pulse 68 | Resp 14 | Wt 106.6 kg (235 lb) | BMI 41.63 kg/m | BSA 2.18 m Examined in wheelchair General: Alert, no distress HENT: Normocephalic. Atraumatic. Neck: Bilateral carotid bruits. No overt JVD. Heart: Distant heart sounds. Regular at 68 bpm. Grade I/ systolic murmur. No diastolic murmur. Norub. Lungs: Clear. No wheeze. Abdomen: +BS. Distended. Nontender. No masses. Extremities: Difficult to assess. Dressing not removed. No clubbing. No cyanosis Pulses: radial=2/4, posterior tibial=0/4. Limited neurological examination: No focal deficit. Data Echo 01/20/2023-- 1 mos post TAVR The examination is adequate to evaluate the referral indication. The left ventricular cavity size is severely enlarged. There is severe diffuse left ventricular hypokinesis. The left ventricular systolic function is severely reduced. The qualitative LV ejection fraction is 25-29% (severely reduced). The left ventricular diastolic function is severely abnormal (grade III). The patient is status post TAVR with Berhane type prosthetic valve. The prosthetic leaflets are relatively well visualized with noted normal excursion. The aortic valve prosthesis systolic gradients are normal for this type prosthesis. Significant aortic valve prosthesis regurgitation is absent. Dilated IVC with reduced collapsability with sniff indicates an elevated right atrial pressure of 15 mmHg. The estimated pulmonary artery systolic pressure is 38 mm Hg (mildly elevated). Echo (POD 1 TAVR) The examination is adequate to evaluate the referral indication. There is a large sized septal, inferior, and posterior wall motion abnormality with akinesis of thesegments. The remaining left ventricular wall segments are mildly to moderately hypokinetic. The left ventricular systolic function is moderately to severely reduced. with an estimated EF of around 30% Calculated LV ejection Fraction = 32% (bi-plane method of discs). The right ventricular systolic function is mildly reduced . The patient is status post TAVR with Berhane type prosthetic valve. Aortic valve prosthesis stenosis is absent. The mean systolic gradient through the TAVR is 6.4 mmHg. The peak aortic valve velocity throught the TAVR is 1.6 m/sec. Significant aortic valve prosthesis regurgitation is absent. Mild mitral regurgitation is present. A trivial circumferential pericardial effusion is noted DSE 12/01/2022 Goal directed echo to determine the presence of low flow-low gradient severe aortic stenosis in this patient with cardiomyopathy and severely reduced LV systolic function. Resting echo findings are unchanged from echo of 11/26/2022. Low dose dobutamine protocol was used. Peak transaortic velocity increased from a resting value of 2.44 m/sec to 3.94 m/sec at 20 mcg/kg/min of dobutamine. This indicates presence of contractile reserve. Corresponding increase in global LVEF and segmental contractility was also seen (basal and mid inferoposterior segments are akinetic at rest and during dobutamine infusion). By continuity equation calculated CHAPO is 0.95 sqcm consistent with severe aortic stenosis. Echo 08/17/2022 The examination is adequate to evaluate the referral indication. The left ventricular cavity size is moderately enlarged. The LV wall thickness is normal. The septal motion is abnormal consistent with intrventricular conduction delay. The remaining left ventricular wall segments are severely hypokinetic. The qualitative LV ejection fraction is 25-29% (severely reduced). The aortic valve has three leaflets. The aortic valve is severely calcified. The aortic valve opening is severely reduced. Image and Doppler assessment of aortic stenosis severity is discordant: Severe aortic stenosis is suspected. Low cardiac output may be contributing There is severe mitral annular calcification. There is heavy calcification of the posterior mitral valve annulus which restricted posterior mitral valve leaflet mobility Mitral stenosis is absent. Mild secondary mitral regurgitation is present. Ao V2 max: 292.4 cm/sec Ao mean P.7 mmHg CHAPO(I,D): 0.78 cm2 [place]iac [place]20[place] [facility] * The mid LAD has 70% disease that was treated with IVUS guided PCI with 3 x 20mm Synergy WALTER post dilated with a 3.5mm balloon with excellent angiographic results * Mild luminal irregularities elsewehere ASSESSMENT: Severe aortic stenosis status post transcatheter aortic valve replacement with a # 26 mm Fisher Berhane S3 Ultra valve on 12/09/2022. SBE prophylaxis reviewed. Follow-up with the [facility] as scheduled, echo prior Systolic and diastolic congestive heart failure. NYHA Class III-IV. Examination with chronic stablemild hypervolemia. Continue the current diuretic regimen of torsemide 150 mg/day and hevfmrqoleyepn58 mg/day for now. May need to consider titration of torsemide to the maximum dose of 100 mg twice per day. Low dose lisinopril previously discontinued due to hypotension. If okay with Nephrology would consider a trial of low-dose losartan, 12.5 mg/day. Reassess LV systolic function with echocardiography as above. Coronary artery disease. Status post March 2022 PCI of the mid LAD. Mild luminal irregularities observed elsewhere per March 22, 2022 diagnostic cardiac catheterization Continue GDMT for CAD including dual anti-platelet therapy with aspirin and clopidogrel Dyslipidemia. LDL cholesterol 34 mg/dL in March 2022. Check LDL with next set of labs. Continue atorvastatin 40 mg/day Tachy-Brown Syndrome. Status post 12/29/2021 dual chamber pacemaker implantation. Pacemaker interrogation on January 10, 2023 demonstrated appropriate function, 11.6 years remaining longevity. Time in AT/AF: 29.4%. Atrial paced 51.4%. Ventricular paced 49.5%. Pacemaker interrogation due next on April 21, 2023. Paroxysmal atrial fibrillation. Continue metoprolol. Anticoagulation risks felt to be greater than the benefit. Carotid artery disease with moderate right internal carotid artery stenosis, mild left internal carotid artery stenosis. Duplex performed just prior to my evaluation today, results appearing similar to prior. Repeat duplex in 1 year. Diabetes mellitus. Chronic kidney disease. Followed by PCP and Nephrology. Hyperkalemia in March 2023. Repeat metabolic panel today. General Cardiology follow-up in 3 months or as needed. ER with emergencies. Wood Wong PA-C Department of Cardiology I spent a total of 40-54 minutes (exact time 52 mins) on the date of service in preparation, delivery, and documentation of the care provided to Orquidea Valencia excluding any time spent in the performance of separately billed services. This chart was completed in part utilizing [employer] Speech Voice Recognition Software. Grammatical errors, random word insertions, prounoun errors, and incomplete sen tences are an occasional consequence of this system due to software limitations, ambient noise, andhardware issues. Any formal questions or concerns about the content, text, or information containedwithin the body of this dictation should be directly addressed to the provider for clarification. documented in this encounter Nursing Notes * Valentine Cabrales LPN - 04/14/2023 3:02 PM EST Examination Room: 1 Name: Orquidea Valencia Date of : 1950 Reason for Visit: Follow up Problems/Concerns: Denies complaint Interim Hosp(s): denies Chest Pain/SOB: denies MyChart Discussed: DECLINES Patient was instructed to not get up on the exam table until directed and assisted by their provider; patient is to remain seated in the chair/ wheelchair/ exam table for fall prevention and safety reasons. Patient is aware staff will assist stepping down off exam table with personnel. documented in this encounter Plan of Treatment Upcoming Encounters Date Type Department Care Team (Late st Contact Info) Description 04/21/2023 1:00 PM EST Cardiac Studies Cardiology, [facility] [address] [place] [address] [facility] [address] [facility] [place] [id number] 04/22/2023 11:00 AM EST Office Visit Nephrology, [facility] [address] [facility] [place] [address] TobiasLuz jacques MD 200 [facility] [place] [address] 04/25/2023 1:20 PM EST Office Visit Family Practice, [place] [address] [place] [phone] David Umanzor MD [address] [place] [address] 05/04/2023 11:30 AM EST Home Visit [facility] [address] [place] [address] Tatyana Delaney RN 132 [place] [address] 05/26/2023 2:00 PM EST Laboratory Laboratory, [place] [address] [place] [phone] [facility] [address] [place] [address] 05/31/2023 1:30 PM EST Imaging Radiology [facility] 1st [facility] [address] 06/07/2023 1:20 PM EST Office Visit [facility] [phone] Vira Byrd DO 132 [facility] [place] [address] 07/27/2023 3:00 PM EDT Office Visit Cardiology, [facility] 132 [place] [address] Wood Wong PA-C 132 [facility] [place] [address] 08/01/2023 2:00 PM EDT Laboratory Laboratory, [address] [phone] [address] 08/02/2023 2:00 PM EDT Office Visit Rheumatology [place] [id number] [facility] [place] [address] Eliot Castelan CRNP 2520 [facility] [place] [address] 08/08/2023 12:30 PM EDT Office Visit Hematology/Oncology [facility] [address] [place] [address] Miguel A Alcantar MD [address] [place] [address] 03/07/2024 1:00 PM EST Office Visit Cardiology, [facility] 132 [place] [address] Manolo Millan MD [address] [place] [address] [phone] (work) Scheduled Procedures Name Priority Associated Diagnoses Date/Ti [...] 02/12/2022, Additional history exists TSH 04/13/2023 04/13/2022, 02/0 05/2021, 06/02/2020, Additional history exists Diabetic Eye Exam 05/27/2023 05/27/2022, , 05/27/2022, Additional history exists Mammogram 07/28/2023 07/27/2022, 07/10, 01/09/2019, Additional history exists Albumin/Creatinine Ratio 09/08/2023 023, 08/06/2022, 05/13/2021, Additional history exists GFR 10/13/2023 04/14/2023, 03/11, 02/28/2023, Additional history exists CKD PHOS USE SMARTSET 96708 12/02/202311/10, 08/06/2022, 08/21/2021, Additional history exists CKD HGB USE SMARTSET 08070 03/25/202403/25, 03/25/2023, 02/28/2023, Additional history exists DXA [...] this encounter Medical Devices Implanted Type Area Grade School Teacher Device Identifier Shelf Expiration Date Model / Serial / Lot [employer] Medical Embosphere Micrspheres Implanted:Qty: 2 on 11/02/2019 by Ish Grove MD at [facility] Right: Abdomen [employer] 05/11/2022 S220GH / [id number] / [id number] Syr Pf 2ml Embospheres 100-300 - [id number] Implanted:Qty: 1 on 11/14/2020 at [facility] [employer] [id number] 08/22/2023 S220GH / / [id number] Envelope Antibacterial Tyrx - [id number] Implanted:Qty: 1 on 12/29/2021 by Fatoumata Roland DO at OR [facility] [employer] : TANMAY [id number] 09/23/2022 CMR [id number] / / [id number] Stent Synergy Xd Mr 3.04v75kb - [id number] Implanted:Qty: 1 on 03/22/2022 by Katalina Pearce MD at [facility] [employer] [id number] 07/17/2023 [id number] / / [id number] Valve Berhane 3 Ultra 26mm - [id number] Implanted:Qty: 1 on 12/09/2022 by Manolo Millan MD at [facility] [employer] [id number] 12/04/2023 [id number] / / documented as of this encounter Results * LDL CHOLESTEROL (DIRECT MEASURE) (04/14/2023 4:02 PM EST) LDL Cholesterol (Direct Measure) 24 <=129 mg/dL 04/15/2023 1:45 AM EST [facility] Comment: LDL Cholesterol Reference Ranges (mg/dL): <70 Target level for high risk ASCVD patient <100 Optimal for general population 100-129 Near optimal for general population 130-159 Borderline high 160-189 High >=190 Very high Blood Venous blood specimen / Unknown Venipuncture / Unknown 04/14/2023 4:02 PM EST 04/14/2023 4:02 PM EST Wood Wong PA-C LAB BLOOD ORDERABLE S [facility] [address] [place] [address] * (ABNORMAL) BASIC METABOLIC PANEL (04/14/2023 4:02 PM EST) BUN 41(H) 6 - 20 mg/dL 04/14/2023 4:59 PM EST LAB[facility]ORY [place] 57-10 Creatinine 1.4(H) 0.5 - 1.0 mg/dL 04/14/2023 4:59 PM EST LAB[facility] [place] 57-10 Estimated Glomerular Filtration Rate 38(L) >=60 mL/min 04/14/2023 4:59 PM EST LAB[facility]ORY [place] 57-10 Comment:eGFR is calculated b ased on the CKD-EPI 2020 equation Sodium 136 135 - 146 mmol/L 04/14/2023 4:59 PM EST LAB[facility]ORY [place] 57-10 Potassium 5.0 3.5 - 5.1 mmol/L 04/14/2023 4:59 PM EST LAB[facility] [place] 57-10 Chloride 99 98 - 107 mmol/L 04/14/2023 4:59 PM EST LAB[facility] [place] 57-10 CO2 28 22 - 32 mmol/L 04/14/2023 4:59 PM EST LAB[facility] [place] 57-10 Anion Gap 9 7 - 15 mmol/L 04/14/2023 4:59 PM EST LAB[facility] [place] 57-10 Glucose 199(H) 70 - 120 mg/dL 04/14/2023 4:59 PM EST [facility] [place] 57-10 Calcium 9.3 8.4 - 10.2 mg/dL 04/14/2023 4:59 PM EST LAB[facility]ORY [place] 57-10 Blood Venous blood specimen / Unknown Venipuncture / Unknown 04/14/2023 4:02 PM EST 04/14/2023 4:02 PM EST Wood Angelia Marvin GONZALES LAB BLOOD ORDERABLE S LAB[facility] [place] 57-[address] [place] [address] documented in this encounter Visit Diagnoses Diagnosis HFrEF (heart failure with reduced ejection fraction) (HCC)- Primary Hyperkalemia Hyperpotassemia Bilateral carotid bruits Dyslipidemia, goal LDL below 70 Other and unspecified hyperlipidemia Carotid stenosis, bilateral Occlusion and stenosis of multiple and bilateral precerebral arteries without mention of cerebral infarction S/P TAVR (transcatheter aortic valve replacement) Heart valve replaced by other means Coronary artery disease involving kiowa tribe coronary artery of kiowa tribe heart without angina pectoris Tachy-brown syndrome (HCC) Sinoatrial node dysfunction Presence of cardiac pacemaker Cardiac pacemaker in situ Encounter for monitoring diuretic therapy Encounter for therapeutic drug monitoring documented in this encounter Advance Directives Latest [...] the patient have Health Care Power of Space Controller? No Care Teams Sales Support Assistant Relationship Specialty Start Date End Date David Umanzor MD [address] [facility] [place] [address] PCP - General 02/25/09 documented as of this encounter
--- OUTSIDE RECORDS SUMMARY | 2023-05-28 21:33 | External Medical Summary | Summary of Care ---
Author Name Unknown Organization [facility] Address [address] [facility] [place] [address] Phone [phone] Care Team Providers Care Dianeticist Name Role Phone David Umanzor MD Primary Care Provider [phone] Reason for Visit * Reason Comments [facility]: Maintenance Encounter Details Date Type Department Care Team (Late st Contact Info) Description 04/13/2023 12:30 PM EST Home Visit [facility], [facility] [address] [facility] [place] [address] Tatyana Delaney, RN [address] [place] [address] Allergies Active Allergy Reactions Criticality Noted Date Comments Bactrim 02/09/2010 Cephalosporins Anaphylaxis,Edema face/lips/tongue High 04/11/2009 Anaphylaxis to cefaclor, facial swelling to cephalexin. Ciprofloxacin Low 03/30/2021 Other reaction(s): Nausea Butorphanol Tartrate 02/09/2010 Heart racing Sulfa Antibiotics Hives High 05/22/2002 Other reaction(s): Hives Trimethoprim 04/15/2022 Other reaction(s): Hives documented as of this encounter (statuses as of 04/14/2023) Medications Medication Sig Dispensed Refills Start Date End Date Status TYLENOL ARTHRITIS PAIN 650 MG PO TBCRIndications:arthritis Take by mouth as needed. 0 8 Active NEBULIZER/TUBING/MOUTHPIE CE KITIndications:Wheezing,A cute bronchitis, complicated use with nebs 1 pack 5 0 Active MULTIVITAMIN/IRON PO TABS 1 daily 0 Active B-12 1500 MCG PO TBCRIndications:Perniciou s anemia one pill each day 90 Tab 3 0 Active BIOTENE MOISTURIZING MOUTH MT SOLNIndications:Dry [...] Active Fluticasone Propionate 50 MCG/ACT Nasal Suspension (Flonase)Indications:Human Service Worker sanket rhinitis ADMINISTER 2 SPRAYS IN [...] daily 400 Each 3 3 Active Creon 23147-35150 UNIT Oral Capsule Delayed Release Particles (Pancrelipase (Frl-Qdos-Bzxa))Indicatio ns:Pancreatic insufficiency TAKE ONE CAPSULE BY MOUTH [...] bedtime. 2 mL 5 3 Active Nystatin 094062 UNIT/GM External Powder (Nystop) APPLY TO AFFECTED [...] [facility]),Coronary artery disease involving elem coronary artery of elem heart without angina pectoris,Nonrheumatic aortic valve stenosis,Cardiac pacemaker in situ,Tachy-wilfrido syndrome ([facility]) Take 1 Tablet by mouth [...] [facility]) Inject 30 units daily 45 [...] Active Gabapentin 300 MG Oral Capsule (Neurontin)Indications:Ac grand traverse on chronic combined systolic and diastolic congestive heart failure ([facility]) Take 1 Capsule by mouth [...] a time.. 28 g 6 3 Active LORazepam 0.5 MG Oral Tablet (Ativan)Indications:Anxie ty state TAKE 1 TABLET 3 TIMES A DAY NEEDED FOR ANXIETY 40 Tablet 1 3 Active Hydroxychloroquine Sulfate 200 MG Oral [...] HYDROcodone-Acetaminophen 5-325 MG Oral TabletIndications:Atheros clerosis of elem artery of left lower extremity with intermittent claudication (HCC),Pain of left lower extremity Take 1 Tablet by mouth every 6 hours as needed for Pain, Mild. 45 Tablet 0 3 Active documented as of this encounter (statuses as of 04/14/2023) Active Problems Problem Noted Date Diagnosed Date [...] to excess calories 0 08/09/2022 Atherosclerosis of elem ar jania of left lower extremity with intermittent claudication 08/09/2022 Coronary artery disease invo lving elem coronary artery of elem heart with angina pectoris 03/22/2022 Last Assessment [...] Overview: Diabetic retinopathy Rheumatoid arthritis of [facility] sites without rheumatoid factor 01/26/2016 Last [...] AHI 17.1, significant hypoxia and PLMS [facility] Vitamin D deficiency 04/21/2011 Iron deficiency anemia 03/15/2011 Overview: ICD-10 update of inactive term Last Assessment & Plan: Last hemoglobin 11.4 on 08/06 -continue ferrous sulfate. Med list updated. High triglycerides 02/13/2004 Overview: TG's as high as 6400 Postsurgical hypothyroidism 02/13/2004 Last Assessment & Plan: Last TSH 0.9 on 04/13/2022 -continue Synthroid documented as of this encounter (statuses as of 04/14/2023) Resolved Problems Problem Noted Date Diagnosed Date [...] [facility] DETECT Study: Project # [id number], Machine Repairer Maintenance: Manny Santacruz, PhD. SUMMARY: Goal: Establish test [...] study staff at ; after hours Machine Repairer Maintenance via the [facility] silica filter operator . Please contact study team before resolving/deleting from patients problem list. Study phone number: [phone]. Diagnosis changed due to Research Module. Go to Snapshot for study details. Encounter for examination fo r normal comparison and control in clinical research program 11/08/2018 12/10/2021 Overview: DO NOT DELETE - [facility] Study: Project # [id number], Machine Repairer Maintenance: Kevin Pearce, MS, MPH. SUMMARY: Goal: Establish [...] study staff at ; after hours Machine Repairer Maintenance via the [facility] hospital silica filter operator . - Please contact study team before resolving/deleting from patients problem list. Study phone number: [phone]. Diagnosis changed due to Research Module. Go [...] as of this encounter (statuses as of 04/14/2023) Immunizations Name Administration Dates Next Due COVID-19 [...] Sign Reading Time Taken Comments Blood Pressure 112/54 04/13/2023 12:21 PM EST Pulse 62 04/13/2023 12:21 PM EST Temperature 35.9 C (96.6 F) 04/13/2023 1 2:21 PM EST Respiratory Rate 18 04/13/2023 12:2 1 PM EST Oxygen Saturation 98% 04/13/2023 12: 21 PM EST Inhaled Oxygen Concentration - - Weight 100.8 kg (222 lb 3.2 oz) 024 12:21 PM EST Height - - Body Mass Index 39.36 02/02/2023 8:52 AM EDT documented in this [...] Progress Notes * Tatyana Delaney, RN - 04/13/2023 11:29 AM EST Images from the original note were not included. [facility] [employer] Visit Date: 04/13/2023 Time: 11:29 AM Name: Orquidea Valencia : 1950 Current Concerns: Pt seen for return RNCM visit Home health through [facility] for wound management - started today - nurse present during visit Wound of right buttock has greatly improved with use of Calmoseptine - now only 0.1cm x 0.1cm Wounds of LE - one area on RLE and two areas LLE - care provided by nurse today [employer] uses own supplier to pay for depends - [phone] ([employer]) - spoke with Carol and an account was set up - in specialty comments - she reports it will be run through insurance and then will get back to ordering provider, PCP Call placed to Dilma at [facility] ([phone] ext [phone]) to check status of Juzo stockings Physical Exam: BP 112/54 | Pulse 62 | Temp 35.9 C (96.6 F) | Resp 18 | Wt 100.8 kg (222 lb 3.2 oz) | SpO2 98% | BMI 39.36 kg/m | BSA 2.12 m Pain 0 Physical Exam Constitutional: General: She is not in acute distress. Appearance: She is obese. Cardiovascular: Rate and Rhythm: Normal rate and regular rhythm. Pulses: Normal pulses. Heart sounds: Normal heart sounds. Pulmonary: Effort: Pulmonary effort is normal. Breath sounds: Normal breath sounds. Abdominal: General: Bowel sounds are normal. Palpations: Abdomen is soft. Musculoskeletal: Right lower leg: Edema (+1) present. Left lower leg: Edema (+1) present. Skin: General: Skin is warm and dry. Neurological: Mental Status: She is alert and oriented to person, place, and time. Problems/Symptoms: Review of Systems Constitutional: Negative. HENT: Negative. Eyes: Positive for visual disturbance (legally blind). Respiratory: Positive for shortness of breath (PATRICK - at baseline). Cardiovascular: Positive for leg swelling. Gastrointestinal: Negative. Genitourinary: Negative. Musculoskeletal: Positive for arthralgias and gait problem. Skin: Positive for wound. Psychiatric/Behavioral: Negative. Medication Reconciliation: (See medication list) Does patient take medications as ordered: Yes Patient Well Being: PHQ2/9: No questionnaires available. No change in living situation Denies falls [facility]-10 Completed this Visit: No. Routine visit Advanced Care Planning: No documentation, acp [...] if at night -increased fatigue or vertigo DIABETES: -Blood sugar testing schedule: Twice a day, once in the morning and again 2 hours after a meal. -Blood sugar goals: Less than 120, fasting and less than 180, 2 hours after a meal -Record and take to PCP appointments -Notify your doctor if your blood sugar is consistently above goal -Hypoglycemia (low blood sugar) action plan: If blood sugar is less than 70 or having symptoms of low blood sugar eat or drink a snack of 15gm of carbohydrate (2-3 glucose tablets, glass juice, 1Cnon-fat milk, etc) wait 15 min if blood sugar still low repeat snack, wait 15 minutes if still low call health care provider. Ask provider if a medication adjustment is needed if experiencing low blood sugars frequently, twice a week or more. -Hyperglycemia (high blood sugar) action Plan: Take medications as directed, test blood sugars frequently, if above goal, contact your health care provider. Ask for changes to medication if blood sugars continue to run above goal. -Eat three well balanced meals a day 5 servings fruit/vegetable per day Educated on home safety: Create a fall [...] for bsg monitoring Gets pill packs from [employer] scale for daily wt monitoring Baseline wt around 224 - 226 lbs Aquacel ag and dsd to BLE open areas every other day Calmoseptine to right buttock PU Home Interventions Provided: Home Intervention: Other; evaluation Reinforced current Plan of Care, including self-management and medication regimen Patient's 'Red Flags': Increased SOB Increased weakness Increased edema or open areas Patient Needs to Remember: Call [facility] at with any new or worsening health concerns or problems, red flag symptoms. Referrals Needed: Other none Follow Up: Is there cellular connectivity/connectivity in the home? Yes Does the patient have internet in the home? Yes Patient encouraged to call the intake phone number for all urgent but not emergent issues. Is the patient new to [facility] within the last 30 days? No, Assess appropriateness for upcoming telehealth visits. Cancel telehealth visits & schedule home visit with care produce team lead(s)as indicated. Provider is in agreement with Plan of Care: Yes Scheduled to follow up with patient in one month. Tatyana Delaney RN 04/13/2023 11:29 AM documented in this encounter Plan of Treatment Upcoming Encounters Date Type Department Care Team (Late st Contact Info) Description 04/14/2023 1:30 PM EST Imaging Vascular Lab, [facility] 2nd Floor, [place] 132 [facility] [place] [address] 04/14/2023 3:00 PM EST Office Visit Cardiology, [facility] 132 [facility] [place] [address] Wood Wong PA-C 132 [facility] [place] [address] 04/21/2023 1:00 PM EST Cardiac Studies Cardiology, [facility] 132 [facility] [place] [address] [facility] 132 [facility] [place] [address] 04/22/2023 11:00 AM EST Office Visit Nephrology, [facility]hael Marquez [address] [place] [address] Luz Tobias MD [address] [place] [address] 04/25/2023 1:20 PM EST Office Visit [facility] [address] [facility] [phone] David Umanzor MD [address] [place] [address] 05/04/2023 11:30 AM EST Home Visit [facility], [facility] 132 [facility], [place] [address] Tatyana Delaney, RN 132 [facility] [place] [address] 05/26/2023 2:00 PM EST Laboratory Laboratory, [place] [address] [place] [phone] [facility] [address] [place] [address] 05/31/2023 1:30 PM EST Imaging Radiology [address] [facility] [address] 06/07/2023 1:20 PM EST Office Visit Sleep Disorders Ctr [facility] 132 [place] [phone] Vira Byrd, 132 [facility] [place] [address] 08/01/2023 2:00 PM EDT Laboratory Laboratory, [place] [address] [place] [facility] [place] [phone] [facility] [address] [place] [address] 08/02/2023 2:00 PM EDT Office Visit Rheumatology [facility] [address] [facility] [place], [place] [address] Eliot Castelan CRNP [address] [facility] [place] [address] 08/08/2023 12:30 PM EDT Office Visit Hematology/Oncology [facility] [place] 200 [facility] [place] [address] Miguel A Alcantar MD [address] [place] [address] 03/07/2024 1:00 PM EST Office Visit Cardiology, [facility] [address] [place] [address] Manolo Millan MD [address] [place] [address] Scheduled Procedures Name Priority Associated Diagnoses Date/Ti [...] 06/23/2020, Additional history exists HbA1c 02/05/2023 08/06/2022, /0 06/2022, 02/12/2022, Additional history exists TSH 04/13/2023 04/13/2022, 02/0 05/2021, 06/02/2020, Additional history exists Diabetic Eye Exam 05/27/2023 05/27/2022, , 05/27/2022, Additional history exists Mammogram 07/28/2023 07/27/2022, 07/10, 01/09/2019, Additional history exists Albumin/Creatinine Ratio 09/08/2023 023, 08/06/2022, 05/13/2021, Additional history exists GFR 09/23/2023 03/24/2023, 02/10, 02/17/2023, Additional history exists CKD PHOS USE SMARTSET 82701 12/02/202311/10, 08/06/2022, 08/21/2021, Additional history exists CKD HGB USE SMARTSET 72975 03/25/202403/25, 03/25/2023, 02/28/2023, Additional history exists DXA [...] this encounter Medical Devices Implanted Type Area Janitorial Assistant Device Identifier Shelf Expiration Date Model / Serial / Lot [employer] Medical Embosphere Micrspheres Implanted:Qty: 2 on 11/02/2019 by Ish Grove MD at [facility] Right: Abdomen [employer] 05/11/2022 S220GH / S220GH / [id number] Syr Pf 2ml Embospheres 100-300 - [id number] Implanted:Qty: 1 on 11/14/2020 at [facility] [employer] [id number] 08/22/2023 S220GH / / [id number] Envelope Antibacterial Tyrx - [id number] Implanted:Qty: 1 on 12/29/2021 by Fatoumata Roland DO at OR [facility] [employer] : CRM [id number] 09/23/2022 CMR M6122 / / [id number] Stent Synergy Xd Mr 3.60h71gq - [id number] Implanted:Qty: 1 on 03/22/2022 by Katalina Pearce MD at [facility] [employer] [id number] 07/17/2023 [id number] / / [id number] Valve Berhane 3 Ultra 26mm - [id number] Implanted:Qty: 1 on 12/09/2022 by Manolo Millan MD at [facility] [employer] [id number] 12/04/2023 [id number] / / documented as of this encounter [...] the patient have Health Care Power of Bottom Liner? No Care Teams Dianeticist Relationship Specialty Start Date End Date David Umanzor MD [address] [place] [address] PCP - General 02/25/09 documented as of this encounter
--- OUTSIDE RECORDS SUMMARY | 2023-05-28 21:33 | External Medical Summary | Summary of Care ---
Author Name Unknown Organization [facility] Address [address] [facility] [place] [address] Phone [phone] Care Team Providers Care Urologist Physician Name Role Phone David Umanzor MD Primary Care Provider [phone] Reason for Visit * Reason Onset Date Comments [facility]: Maintenance 04/13/2023 Encounter Details Date Type Department Care Team (Late st Contact Info) Description 04/13/2023 Telephone [facility], [facility] [address] [place] [address] Tatyana Delaney RN [address] [place] [address] [facility]: Maintenance Allergies Active Allergy Reactions Criticality Noted Date Comments Bactrim 02/09/2010 Cephalosporins Anaphylaxis,Edema face/lips/tongue High 04/11/2009 Anaphylaxis to cefaclor, facial swelling to cephalexin. Ciprofloxacin Low 03/30/2021 Other reaction(s): Nausea Butorphanol Tartrate 02/09/2010 Heart racing Sulfa Antibiotics Hives High 05/22/2002 Other reaction(s): Hives Trimethoprim 04/15/2022 Other reaction(s): Hives documented as of this encounter (statuses as of 04/13/2023) Medications Medication Sig Dispensed Refills Start Date [...] neurological disease, not at goal ([facility]) Test blood sugar 4 times daily Dx: E11.9 1 Kit 0 9 Active PRODIGY LANCETS 28G MISCIndications:DM type 2, not at goal ([facility]) TEST BLOOD SUAGER 4 TIMES A DAY [...] goal of less than 7.0% ([facility]),Type 2 diabetes mellitus with stage 3 chronic kidney disease, with long-term current use of insulin, unspecified whether stage 3a or 3b CKD ([facility]),DM type 2 causing neurological disease, not at goal ([facility]) TEST BLOOD SUGAR UP TO FOUR TIMES DAILY 400 Strip 3 2 Active Fluticasone Propionate 50 MCG/ACT Nasal Suspension (Flonase)Indications:Gastroenterology Nurse Practitioner sanket rhinitis ADMINISTER 2 SPRAYS IN EACH [...] daily 400 Each 3 3 Active Creon 88610-59425 UNIT Oral Capsule Delayed Release Particles (Pancrelipase ([id number]))Indicatio ns:Pancreatic insufficiency TAKE ONE CAPSULE BY MOUTH [...] bedtime. 2 mL 5 3 Active Nystatin 015541 UNIT/GM External Powder (Nystop) APPLY TO AFFECTED AREAS UNDER THE BREASTS THREE TIMES PER DAY NEEDED 30 g 1 3 Active NovoLOG FlexPen 100 UNIT/ML Subcutaneous Solution Pen-injector (insulin aspart)Indications:Type 2 diabetes mellitus with hyperosmolarity without coma, without long-term current use of insulin ([facility]) Inject 10 units with breakfast, 4 units with lunch, and 10 units with PM meal. Inject 4 units if BG is >200. 30 mL 5 3 Active Acetaminophen 500 MG Oral TabletIndications:HFrEF (heart failure with reduced ejection fraction) ([facility]),Coronary artery disease involving [place] coronary artery of [place] heart without angina pectoris,Nonrheumatic aortic valve stenosis,Cardiac pacemaker in situ,Tachy-wilfrido syndrome ([facility]) Take 1 Tablet by mouth at bedtime. [...] long-term current use of insulin ([facility]) Inject 30 units daily 45 mL 1 [...] HYDROcodone-Acetaminophen 5-325 MG Oral TabletIndications:Atheros clerosis of [place] artery of left lower extremity with intermittent claudication (HCC),Pain of left lower extremity Take 1 Tablet by mouth every 6 hours as needed for Pain, Mild. 45 Tablet 0 3 Active documented as of this encounter (statuses as of 04/13/2023) Active Problems Problem Noted Date Diagnosed Date [...] to excess calories 0 08/09/2022 Atherosclerosis of [place] ar jania of left lower extremity with intermittent claudication 08/09/2022 Coronary artery disease invo lving [place] coronary artery of [place] heart with angina pectoris 03/22/2022 Last Assessment & Plan: Stable. No angina. -continue aspirin, atorvastatin, metoprolol. Recently taken off lisinopril due to low BP. S/P primary angioplasty with coronary stent 03/11 Overview: S/P WALTER to mid LAD on 03/22/2022 Tachy-wilfriod syndrome 12/29/2021 Last Assessment & Plan: Status [...] 12/21/2016 Overview: Diabetic retinopathy Rheumatoid arthritis of [facility] sites without rheumatoid factor 01/26/2016 [...] as of this encounter (statuses as of 04/13/2023) Resolved Problems Problem Noted Date Diagnosed Date [...] [facility] DETECT Study: Project # [id number], Boardmarker: Manny Santacruz, PhD. SUMMARY: Goal: Establish test [...] contact study staff at ; after hours Boardmarker via the [facility] glue line operator . Please contact study team before resolving/deleting from patients problem list. Study phone number: [phone]. Diagnosis changed due to Research Module. Go to Snapshot for study details. Encounter for examination fo r normal comparison and control in clinical research program 11/08/2018 12/10/2021 Overview: DO NOT DELETE - [facility] Study: Project # [id number], Boardmarker: Kevin Pearce, MS, MPH. SUMMARY: Goal: Establish [...] contact study staff at ; after hours Boardmarker via the [facility] hospital glue line operator . - Please contact study team before resolving/deleting from patients problem list. Study phone number: [phone]. Diagnosis changed due to Research Module. Go [...] as of this encounter (statuses as of 04/13/2023) Immunizations Name Administration Dates Next Due COVID-19 [...] encounter Miscellaneous Notes * Telephone Encounter - Simona Shaffer LPN - 04/13/2023 3:50 PM EST Images from the original note were not included. Faxed to [facility] Confirmed above * Telephone Encounter - Nery Cameron LPN - 04/13/2023 1:12 PM EST Error Unable to fax request right fax not working will attempt later Still unable to fax will have another steam and gas turbines assembler attempt * Telephone Encounter - Tatyana Delaney RN - 04/13/2023 12:55 PM EST Pt is still waiting on Juzo stockings from [facility]. Called [facility] and spoke with Dilma - she reports they received the order but still need provider notes saying why she needs the compression stockings. Kwame Noble has the information in his note from 01/18/23. Can you please send this note to [facility]? Thank you! documented in this encounter Plan of Treatment Upcoming Encounters Date Type Department Care Team (Late st Contact Info) Description 04/14/2023 1:30 PM EST Imaging Vascular Lab, [facility] II 2nd Floor, [place] [address] [facility] [place] [address] 04/14/2023 3:00 PM EST Office Visit Cardiology, [facility] [address] [facility] [place] [address] Wood Wong PA-C [address] [place] [address] 04/21/2023 1:00 PM EST Cardiac Studies Cardiology, [facility] [address] [facility] [place] [address] [facility] [address] [place] [address] 04/22/2023 11:00 AM EST Office Visit Nephrology, [facility] [address] [facility] [place], [place] [address] Luz Tobias MD [address] [facility] [place] [address] 04/25/2023 1:20 PM EST Office Visit Family Practice, [facility] [address] [place] [phone] David Umanzor MD [address] [place] [address] 05/04/2023 11:30 AM EST Home Visit ising at [facility] [address] [facility] [place] [address] Tatyana Delaney RN [address] [place] [address] 05/26/2023 2:00 PM EST Laboratory Laboratory, [place] [address] [place] [phone] [facility] [address] [place] [address] 05/31/2023 1:30 PM EST Imaging Radiology [address] [facility] [address] 06/07/2023 1:20 PM EST Office Visit [facility] [phone] Vira Byrd, [address] [facility] [address] 08/01/2023 2:00 PM EDT Laboratory Laboratory, [facility] [address] [place] [phone] [facility], Laboratory [address] [place] [address] 08/02/2023 2:00 PM EDT Office Visit Rheumatology [facility] [address] [facility] [place], [place] [address] Eliot Castelan CRNP [address] [facility] [place], [place] [address] 08/08/2023 12:30 PM EDT Office Visit Hematology/Oncology [facility] [address] [facility] [place] [address] Miguel A Alcantar MD [address] [facility] [place] [address] 03/07/2024 1:00 PM EST Office Visit Cardiology, [facility] [address] [place] [address] Manolo Millan MD [address] [place] [address] Scheduled Procedures Name Priority Associated [...] Additional history exists CKD PHOS USE SMARTSET 33518 12/02/202311/10, 08/06/2022, 08/21/2021, Additional history exists CKD HGB USE SMARTSET 30555 03/25/202403/25, 03/25/2023, 02/28/2023, Additional history exists DXA [...] this encounter Medical Devices Implanted Type Area Endodontic Assistant Device Identifier Shelf Expiration Date Model / Serial / Lot Merit Medical Embosphere Micrspheres Implanted:Qty: 2 on 11/02/2019 by Ish Grove MD at [facility] Right: Abdomen [employer] 05/11/2022 S220GH / [id number] / [id number] Syr Pf 2ml Embospheres 100-300 - [id number] Implanted:Qty: 1 on 11/14/2020 at [facility] [employer] [id number] 08/22/2023 S220GH / / [id number] Envelope Antibacterial Tyrx - [id number] Implanted:Qty: 1 on 12/29/2021 by Fatoumata Roland DO at OR [facility] [employer] : CRM [id number] 09/23/2022 CMR [id number] / / [id number] Stent Synergy Xd Mr 3.91b79hy - [id number] Implanted:Qty: 1 on 03/22/2022 by Katalina Pearce MD at [facility] [employer] [id number] 07/17/2023 [id number] / / [id number] Valve Berhane 3 Ultra 26mm - [id number] Implanted:Qty: 1 on 12/09/2022 by Manolo Millan MD at [facility] [employer] [id number] 12/04/2023 [id number] / / documented as of this encounter [...] the patient have Health Care Power of Scenic Designer? No Care Teams Urologist Physician Relationship Specialty Start Date End Date David Umanzor MD [address] [place] [address] PCP - General 02/25/09 documented as of this encounter
--- OUTSIDE RECORDS SUMMARY | 2023-05-28 21:33 | External Medical Summary ---
Author Name Unknown Address Unknown Organization K0G:[facility] [place] [address] [place] [address] Laboratory Report Ordering Provider Test Date Status VERONICA BERRY 04/14/2023 16:02:35 Final Observation Date Value Abnormality Reference (Units ) Status BUN 04/14/2023 16:02:35 41 Above high normal 6-20 (mg/dL) Final Creatinine 04/14/2023 16:02:35 1.4 Above high normal 0.5-1.0 (mg/dL) Final Glomerular filtration rate/1.73 sq M.predicted [Volume Rate/Area] in Serum, Plasma or Blood by Creatinine-based formula (CKD-EPI) 04/14/2023 16:02:35 38 Below low normal >=60 (mL/min) Final eGFR is calculated based on the CKD-EPI 2020 equation SODIUM 04/14/2023 16:02:35 136 135-146 (m mol/L) Final Potassium 04/14/2023 16:02:35 5.0 3.5-5.1 (m mol/L) Final Cl 04/14/2023 16:02:35 99 98-107 (mm ol/L) Final CO2 04/14/2023 16:02:35 28 22-32 (mmo l/L) Final Anion gap 04/14/2023 16:02:35 9 7-15 (mmol /L) Final Glucose 04/14/2023 16:02:35 199 Above high normal 70 -120 (mg/dL) Final Calcium 04/14/2023 16:02:35 9.3 8.4-10.2 ( mg/dL) Final Performing Location [facility] [address] [place] [address]
--- OUTSIDE RECORDS SUMMARY | 2023-05-28 21:33 | External Medical Summary ---
Author Name Unknown Address Unknown Organization K01:[facility] [address] [place] [address] Laboratory Report Ordering Provider Test Date Status VERONICA BERRY 04/14/2023 16:02:35 Final Observation Date Value Abnormality Reference (Units ) Status LDL, (direct) 04/14/2023 16:02:35 24 <=129 (mg/dL) Final LDL Cholesterol Reference Ra nges (mg/dL):
<70 Target level for high risk ASCVD patient
<100 Optimal for general population
100-129 Near optimal for general population
130-159 Borderline high
160-189 High
>=190 Very high Performing Location [facility] - [address] [place] [address]
--- OUTSIDE RECORDS SUMMARY | 2023-05-28 21:33 | External Medical Summary | Summary of Care ---
Author Name Unknown Organization [facility] Address [address] [place] [address] Phone [phone] Care Team Providers Care Room Server Name Role Phone Millie Cage MD Primary Care Provider [phone]- [phone] Reason for Visit * Reason Onset Date Comments Medication Refill 04/14/2023 Encounter Details Date Type Department Care Team (Late st Contact Info) Description 04/14/2023 Refill [facility] [address] [place] [address] Millie Cage MD [address] [place] [address] Atherosclerosis of [place] artery of left lower extremity with intermittent claudication (HCC); Pain of left lower extremity; Anxiety state Allergies Active Allergy Reactions Criticality Noted Date Comments Bactrim 02/09/2010 Cephalosporins Anaphylaxis,Edema face/lips/tongue High 04/11/2009 Anaphylaxis to cefaclor, facial swelling to cephalexin. Ciprofloxacin Low 03/30/2021 Other reaction(s): Nausea Butorphanol Tartrate 02/09/2010 Heart racing Sulfa Antibiotics Hives High 05/22/2002 Other reaction(s): Hives Trimethoprim 04/15/2022 Other reaction(s): Hives documented as of this encounter (statuses as of 04/15/2023) Medications Medication Sig Dispensed Refills Start Date [...] daily 400 Each 3 3 Active Creon 30673-58561 UNIT Oral Capsule Delayed Release Particles (Pancrelipase (Dmg-Strm-Xxbu))Indicati ons:Pancreatic insufficiency TAKE ONE CAPSULE BY MOUTH [...] bedtime. 2 mL 5 3 Active Nystatin 275100 UNIT/GM External Powder (Nystop) APPLY TO AFFECTED [...] fraction) ([facility]),Coronary artery disease involving [place] coronary artery of [place] heart without angina pectoris,Nonrheumatic aortic valve stenosis,Cardiac [...] n 5-325 MG Oral TabletIndications:Athero sclerosis of [place] artery of left lower extremity with intermittent claudication (HCC),Pain of left lower extremity Take 1 Tablet by mouth every 6 hours as needed for Pain, Mild. 45 Tablet 0 4 Active LORazepam 0.5 MG Oral Tablet (Ativan)Indications:Anxi ety state TAKE 1 TABLET 3 TIMES A DAY NEEDED FOR ANXIETY 40 Tablet 1 4 Active LORazepam 0.5 MG Oral Tablet (Ativan)Indications:Anxi ety state TAKE 1 TABLET 3 TIMES A DAY NEEDED FOR ANXIETY 40 Tablet 1 3 04/14/19 24 Discontin ued(Refil l) HYDROcodone-Acetaminophe n 5-325 MG Oral TabletIndications:Athero sclerosis of [place] artery of left lower extremity with intermittent claudication (HCC),Pain of left lower extremity Take 1 Tablet by mouth every 6 hours as needed for Pain, Mild. 45 Tablet 0 3 04/14/19 24 Discontin ued(Refil l) documented as of this encounter (statuses as of 04/15/2023) Active Problems Problem Noted Date Diagnosed Date [...] to excess calories 0 08/09/2022 Atherosclerosis of [place] ar jania of left lower extremity with intermittent claudication 08/09/2022 Coronary artery disease invo lving [place] coronary artery of [place] heart with angina pectoris 03/22/2022 Last Assessment [...] -- AHI 17.1, significant hypoxia and PLMS [facility] Vitamin D deficiency 04/21/2011 Iron deficiency anemia 03/15/2011 Overview: ICD-10 update of inactive term Last Assessment & Plan: Last hemoglobin 11.4 on 08/06 -continue ferrous sulfate. Med list updated. High triglycerides 02/13/2004 Overview: TG's as high as 6400 Postsurgical hypothyroidism 02/13/2004 Last Assessment & Plan: Last TSH 0.9 on 04/13/2022 -continue Synthroid documented as of this encounter (statuses as of 04/15/2023) Resolved Problems Problem Noted Date Diagnosed Date [...] [facility] Study: Project # [id number], Dredge Hand: Manny Santacruz, PhD. SUMMARY: Goal: Establish [...] contact study staff at ; after hours Dredge Hand via the [facility] rivet hole machine operator . Please contact study team before resolving/deleting from patients problem list. Study phone number: [phone]. Diagnosis changed due to Research Module. Go to Snapshot for study details. Encounter for examination fo r normal comparison and control in clinical research program 11/08/2018 12/10/2021 Overview: DO NOT DELETE - Geoff CESPEDES Study: Project # [id number], Dredge Hand: Kevin Pearce, MS, MPH. SUMMARY: Goal: [...] contact study staff at ; after hours Dredge Hand via the [facility] rivet hole machine operator . - Please contact study team before resolving/deleting from patients problem list. Study phone number: [phone]. Diagnosis changed due to Research Module. Go [...] as of this encounter (statuses as of 04/15/2023) Immunizations Name Administration Dates Next Due COVID-19 [...] Telephone Encounter - Millie Cage MD - 04/15/2023 1:32 PM ESTSigned Prescriptions: Disp Refills HYDROcodone-Acetaminophen 5-325 MG Oral Ta*45 Tab*0 Sig: Take 1 Tablet by mouth every 6 hours as needed for Pain, Mild.Authorizing Provider: MILLIE CAGE LORazepam 0.5 MG Oral Tablet (Ativan) 40 Tab*1 Sig: TAKE 1 TABLET 3 TIMES A DAY NEEDED FOR ANXIETYAut horizing Provider: MILLIE CAGE * Telephone Encounter - Stevan Schmitz [facility] - 04/15/2023 10:12 AM ESTPending Prescriptions: Disp Refills HYDROcodone-Acetaminophen 5-325 MG Oral Ta*45 Tab*0 Sig: Take 1 Tablet by mouth every 6 hours as needed for Pain, Mild. LORazepam 0.5 MG Oral Tablet (Ativan) 40 Tab*1 Sig: TAKE 1 TABLET 3 TIMES A DAY NEEDED FOR ANXIETY * Telephone Encounter - Stevan Schmitz [facility] - 04/15/2023 10:11 AM EST I have reviewed the patients controlled substance dispensing history in the Prescription Drug Monitoring Program in compliance with the [facility] regulations before prescribing a controlled substance. PDMP checked on 04/15/2023. Pending Prescriptions: Disp Refills HYDROcodone-Acetaminophen 5-325 MG Oral T*45 Tab*0 Sig: Take 1 Tablet by mouth every 6 hours as needed for Pain, Mild. LORazepam 0.5 MG Oral Tablet (Ativan) 40 Tab*1 Sig: TAKE 1 TABLET 3 TIMES A DAY NEEDED FOR ANXIETY Last Visit: 01/17/2023 (in office), 07/15/2020 (telemedicine) Next Visit: 04/25/2023 Date medication was last filled: norco 03/30, ativan 03/22 Date medication is due for refill: norco 04/10, ativan 04/04 [facility]acy: [id number] Is this request for a controlled substance? Yes and Urine Drug Screen Not completed Toxicology results: No results found. However, due to the size of the patient record, not all encounters were searched.Please check Results Review for a complete set of results. Please approve if appropriate. Thanks, Stevan Schmitz, Angelique.Ph. Clinical Pharmacist [facility] [phone] ext [phone] 04/15/2023,10:11 AM * Telephone Encounter - Erica Kaye CPhT - 04/14/2023 9:10 AM EST Did you pend patient's preferred pharmacy and medication before forwarding?yes Pharmacy: [id number] [address] Pending Prescriptions: Disp Refills HYDROcodone-Acetaminophen 5-325 MG Oral T*45 Tab*0 Sig: Take 1 Tablet by mouth every 6 hours as needed for Pain, Mild. LORazepam 0.5 MG Oral Tablet (Ativan) 40 Tab*1 Sig: TAKE 1 TABLET 3 TIMES A DAY NEEDED FOR ANXIETY Last Visit: 01/17/2023 (in office), 07/15/2020 (telemedicine) Next Visit: 04/25/2023 If no future appointments scheduled, and last appointment is greater than a year ago, please schedule patient for a follow-up appointment Last date the medication was ordered: 02/23/2023, 03/30/2023 Is this request for a controlled substance?Yes, What was the last refill date 02/23/2023,03/30/2023w/ quantity 40, 45 and dosage 0.5, 5-325 and Urine Drug Screen Not completed Urine Drug Screen:No results found. However, due to the size of the patient record, not all encounters were searched. Please check Results Review for a complete set of results. Patient Phone Numbers Labs: Lab Results Component Value Date/Time CREAT 1.3 (H) 03/24/2023 01:20 PM CREAT 1.17 03/31/2022 12:00 AM CREAT 1.1 (H) 04/28/2020 11:03 AM POTASSIUM 5.4 (H) 03/24/2023 01:20 PM POTASSIUM 3.9 03/31/2022 12:00 AM POTASSIUM 4.1 04/28/2020 11:03 AM TSH 0.90 04/13/2022 02:54 PM TSH 0.51 05/07/2019 03:34 PM LDLCALC 34 03/18/2022 02:07 PM LDLCALC UNINTERPRETABLE RESULT 04/24/2018 08:46 AM LDLDIRECT 52 04/28/2020 11:03 AM LDLDIRECT 47 05/07/2019 03:34 PM ALT 20 03/24/2023 01:20 PM ALT 17 04/28/2020 11:03 AM HGBA1C 7.4 (H) 08/06/2022 03:20 PM HGBA1C 6.9 (H) 04/28/2020 11:03 AM documented in this encounter Plan of Treatment Upcoming Encounters Date Type Department Care Team (Late st Contact Info) Description 04/21/2023 1:00 PM EST Cardiac Studies Cardiology, [facility] [address] [place], Pacer [facility] 132 [facility] [place] [address] 04/22/2023 11:00 AM EST Office Visit Nephrology, [facility] [address] [place] [address] Luz Tobias MD 200 [facility] [place], [place] [address] 04/25/2023 1:20 PM EST Office Visit [facility] [place] [address] [place] [address] Millie Cage MD [address] [place] [address] 05/04/2023 11:30 AM EST [facility] Visit [facility] [address] Tatyana Delaney RN 132 [facility] [address] 05/26/2023 2:00 PM EST Laboratory Laboratory, [place] [address] [place] [address] [facility] [address] [place] [address] 05/31/2023 1:30 PM EST Imaging Radiology [address] 132 [facility] [place] [address] 06/07/2023 1:20 PM EST Office Visit [facility] 132 [facility] [place] [phone] Vira Byrd, [facility] [place] [address] 07/27/2023 3:00 PM EDT Office Visit Cardiology, [facility] 132 [place] [address] Wood Wong PA-C 132 [place] [address] 08/01/2023 2:00 PM EDT Laboratory Laboratory, [place] [address] [place] [address] [facility] [address] [place] [address] 08/02/2023 2:00 PM EDT Office Visit Rheumatology [address] [place] [address] Eliot Castelan CRNP [address] [place] [address] [place] [address] 08/08/2023 12:30 PM EDT Office Visit Hematology/Oncology [facility] 200 [facility] [place] [address] Miguel A Alcantar MD 200 [facility] [place] [address] 03/07/2024 1:00 PM EST Office Visit Cardiology, [facility] 132 [facility] [address] Manolo Millan MD [address] [place] [facility] [place] [address] Scheduled Procedures Name Priority Associated Diagnoses Date/Ti [...] Additional history exists CKD PHOS USE SMARTSET 81793 12/02/202311/10, 08/06/2022, 08/21/2021, Additional history exists CKD HGB USE SMARTSET 43898 03/25/202403/25, 03/25/2023, 02/28/2023, Additional history exists DXA [...] this encounter Medical Devices Implanted Type Area Kiln Labourer Device Identifier Shelf Expiration Date Model / Serial / Lot [facility] Medical Embosphere Micrspheres Implanted:Qty: 2 on 11/02/2019 by Ish Grove MD at [facility] Right: Abdomen [employer] 05/11/2022 S220GH / [id number] / [id number] Syr Pf 2ml Embospheres 100-300 - [id number] Implanted:Qty: 1 on 11/14/2020 at [facility] [employer] [id number] 08/22/2023 S220GH / / [id number] Envelope Antibacterial Tyrx - [id number] Implanted:Qty: 1 on 12/29/2021 by Fatoumata Roland DO at [facility] [employer] : CRM [id number] 09/23/2022 CMR [id number] / / [id number] Stent Synergy Xd Mr 3.37c89da - [id number] Implanted:Qty: 1 on 03/22/2022 by Katalina Pearce MD at [facility] [employer] [id number] 07/17/2023 [id number] / / [id number] Valve Berhane 3 Ultra 26mm - [id number] Implanted:Qty: 1 on 12/09/2022 by Manolo Millan MD at [facility] [employer] [id number] 12/04/2023 [id number] / / documented as of this encounter Visit Diagnoses Diagnosis Atherosclerosis of [place] artery of left lower extremity with intermittent claudication (HCC) Atherosclerosis of [place] arteries of the extremities with intermittent claudication Pain of left lower extremity Anxiety state Anxiety state, unspecified documented in this encounter Advance Directives Latest [...] the patient have Health Care Power of Cannon Crewmember? No Care Teams Room Server Relationship Specialty Start Date End Date Millie Cage MD [address] [place] [address] PCP - General 02/25/09 documented as of this encounter
--- OUTSIDE RECORDS SUMMARY | 2023-05-28 21:33 | External Medical Summary | Summary of Care ---
Author Name Unknown Organization [facility] Address [address] [facility] [place] [address] Phone [phone] Care Team Providers Care Powdered Sugar Pulverizer Operator Name Role Phone David Umanzor MD Primary Care Provider [phone]- [phone] Reason for Visit * Reason Comments Outpatient Testing Encounter Details Date Type Department Care Team (Late st Contact Info) Description 04/14/2023 4:00 PM EST Laboratory Laboratory, 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 2 mL 5 3 Active Nystatin 568169 UNIT/GM External Powder (Nystop) APPLY TO AFFECTED [...] ([facility]),Coronary artery disease involving [place] coronary artery of [place] heart without angina pectoris,Nonrheumatic aortic valve stenosis,Cardiac [...] HYDROcodone-Acetaminophen 5-325 MG Oral TabletIndications:Atheros clerosis of [place] artery of left lower extremity with intermittent [...] to excess calories 0 08/09/2022 Atherosclerosis of [place] ar jania of left lower extremity with intermittent claudication 08/09/2022 Coronary artery disease invo lving [place] coronary artery of [place] heart with angina pectoris 03/22/2022 Last Assessment [...] 12/21/2016 Overview: Diabetic retinopathy Rheumatoid arthritis of [facility] without rheumatoid factor 01/26/2016 Last [...] [facility] [place] DETECT Study: Project # [id number], Printer'S Assistant: Manny Santacruz, PhD. SUMMARY: Goal: Establish [...] contact study staff at ; after hours Printer'S Assistant via the [facility] printer slotter operator . Please contact study team before resolving/deleting from patients problem list. Study phone number: [phone]. Diagnosis changed due to Research Module. Go to Snapshot for study details. Encounter for examination fo r normal comparison and control in clinical research program 11/08/2018 12/10/2021 Overview: DO NOT DELETE - [facility] [place] Study: Project # [id number], Printer'S Assistant: Kevin Pearce, MS, MPH. SUMMARY: Goal: [...] contact study staff at ; after hours Printer'S Assistant via the [facility] printer slotter operator . - Please contact study team before resolving/deleting from patients problem list. Study phone number: [phone]. Diagnosis changed due to Research Module. Go [...] Seasonal Influenza Virus Vac cine, Unspecified Formulation 01/27/2021,12/25/2019,02/08/2019,01/10,01/11/2017,03/17/2016,02/13/20,12/27/2013,01/31/2013,12/22/2011,0 12/28/2010,01/08/2010,01/18/2008 Seasonal Influenza, PF, 6 M & [...] 04/21/2023 1:00 PM EST Cardiac Studies Cardiology, [address] [place] [address] Francisco J Pacer [facility] 132 [facility] [place] [address] 04/22/2023 11:00 AM EST Office Visit Nephrology, [facility] [address] [place], [place] [address] Luz Tobias MD 200 [facility] [place], [place] [address] 04/25/2023 1:20 PM EST Office Visit Family [facility] [place] [address] [place] [address] David Umanzor MD [address] [place] [address] 05/04/2023 11:30 AM EST Home Visit [facility] 132 [facility] [place] [address] Tatyana Delaney RN 132 [facility] [place] [address] 05/26/2023 2:00 PM EST Laboratory Laboratory, [place] [address] [place] [address] [facility] [address] [place] [address] 05/31/2023 1:30 PM EST Imaging Radiology [address] 132 [facility] [place] [address] 06/07/2023 1:20 PM EST Office Visit [facility] Disorders Ctr [facility] 132 [facility] [place] [phone] Vira Byrd, [address] [place] [address] 07/27/2023 3:00 PM EDT Office Visit Cardiology, [facility] 132 [facility] [address] Wood Wong PA-Jennifer 132 [facility] [address] 08/01/2023 2:00 PM EDT Laboratory Laboratory, [place] [address] [place] [address] [place], Laboratory [address] [place] [address] 08/02/2023 2:00 PM EDT Office Visit Rheumatology [place] [address] [facility] [place] [address] Eliot Castelan CRNP [facility] [place] [address] 08/08/2023 12:30 PM EDT Office Visit Hematology/Oncology [facility] 200 [facility] [place] [address] Miguel A Alcantar MD 200 [facility] [place] [address] 03/07/2024 1:00 PM EST Office Visit Cardiology, [facility] 132 [facility] [place] [address] Manolo Millan MD [address] [place] [address] Pending Results Name Type Priority Associated Diagnoses Date /Time BASIC METABOLIC PANEL Lab Routine Hyperkalemia Encounter for monitoring diuretic therapy 04/14/2023 4:02 PM EST LDL CHOLESTEROL (DIRECT MEASURE) Lab Routine Dyslipidemia, goal LDL below 70 04/14/2023 4:02 PM EST Scheduled Procedures Name Priority Associated [...] Additional history exists CKD PHOS USE SMARTSET 59181 12/02/202311/10, 08/06/2022, 08/21/2021, Additional history exists CKD HGB USE SMARTSET 61794 03/25/202403/25, 03/25/2023, 02/28/2023, Additional history exists DXA [...] this encounter Medical Devices Implanted Type Area Control Panel Operator Device Identifier Shelf Expiration Date Model / Serial / Lot [employer] Medical Embosphere Micrspheres Implanted:Qty: 2 on 11/02/2019 by Ish Grove MD at [facility] Right: Abdomen [employer] 05/11/2022 S220GH / S220GH / [id number] Syr Pf 2ml Embospheres 100-300 - [id number] Implanted:Qty: 1 on 11/14/2020 at [facility] [employer] [id number] 08/22/2023 S220GH / / [id number] Envelope Antibacterial Tyrx - [id number] Implanted:Qty: 1 on 12/29/2021 by Fatoumata Roland DO at [facility] [employer] : CRM [id number] 09/23/2022 CMR M6122 / / [id number] Stent Synergy Xd Mr [id number] - [id number] Implanted:Qty: 1 on 03/22/2022 by Katailna Pearce MD at [facility] [employer] [id number] 07/17/2023 [id number] / / [id number] Valve Berhane 3 Ultra 26mm - [id number] Implanted:Qty: 1 on 12/09/2022 by Manolo Millan MD at [facility] [employer] [id number] 12/04/2023 [id number] / / documented as of this encounter Visit Diagnoses Diagnosis Hyperkalemia Hyperpotassemia Encounter for monitoring diuretic therapy Encounter for therapeutic drug monitoring Dyslipidemia, goal LDL below 70 Other and [...] the patient have Health Care Power of Strawhat Sizer? No Care Teams Powdered Sugar Pulverizer Operator Relationship Specialty Start Date End Date David Umanzor MD [address] [place] [address] PCP - General 02/25/09 documented as of this encounter
--- OUTSIDE RECORDS SUMMARY | 2023-05-28 21:33 | External Medical Summary | Summary of Care ---
Author Name Unknown Organization [facility] Address [address] [facility] [place] [address] Phone [phone] Care Team Providers Care Customer Experience Retail Clerk Name Role Phone David Umanzor MD Primary Care Provider +1- [phone] Reason for Visit * Reason Onset Date Comments [facility]: Maintenance 04/13/2023 Encounter Details Date Type Department Care Team (Late st Contact Info) Description 04/13/2023 Telephone [facility], [facility] [address] [place] [address] Tatyana Delaney RN [address] [facility] [place] [address] [facility]: Maintenance Allergies Active Allergy [...] Active Fluticasone Propionate 50 MCG/ACT Nasal Suspension (Flonase)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 2 mL 5 3 Active Nystatin 144248 UNIT/GM External Powder (Nystop) APPLY TO AFFECTED [...] ([facility]),Coronary artery disease involving [place] coronary artery of [place] heart without angina pectoris,Nonrheumatic aortic valve stenosis,Cardiac pacemaker in situ,Tachy-wilfrido syndrome ([facility]) Take 1 Tablet by mouth [...] of insulin ([facility]) Inject 30 units daily 45 [...] HYDROcodone-Acetaminophen 5-325 MG Oral TabletIndications:Atheros clerosis of [place] artery of left lower extremity with intermittent [...] to excess calories 0 08/09/2022 Atherosclerosis of [place] ar jania of left lower extremity with intermittent claudication 08/09/2022 Coronary artery disease invo lving [place] coronary artery of [place] heart with angina pectoris 03/22/2022 Last Assessment [...] [facility] DETECT Study: Project # [id number], Sieve Maker: Manny Santacruz, PhD. SUMMARY: Goal: Establish [...] contact study staff at ; after hours Sieve Maker via the [facility] network control operator . Please contact study team before resolving/deleting from patients problem list. Study phone number: [phone]. Diagnosis changed due to Research Module. Go to Snapshot for study details. Encounter for examination fo r normal comparison and control in clinical research program 11/08/2018 12/10/2021 Overview: DO NOT DELETE - [facility] Study: Project # [id number], Sieve Maker: Kevin Pearce, MS, MPH. SUMMARY: Goal: [...] contact study staff at ; after hours Sieve Maker via the [facility] hospital network control operator . - Please contact study team before resolving/deleting from patients problem list. Study phone number: [phone]. Diagnosis changed due to Research Module. Go [...] encounter Miscellaneous Notes * Telephone Encounter - Nery Cameron LPN - 04/13/2023 1:12 PM EST Error Unable to fax request right fax not working will attempt later Still unable to fax will have another steam heating installer attempt * Telephone Encounter - Tatyana Delaney RN - 04/13/2023 12:55 PM EST Pt is still waiting on Juzo stockings from [employer]. Called [employer] and spoke with Dilma - she reports they received the order but still need provider notes saying why she needs the compression stockings. Kwame Aide has the information in his note from 01/18/23. Can you please send this note to [employer]? Thank you! documented in this encounter Plan of Treatment Upcoming Encounters Date Type Department Care Team (Late st Contact Info) Description 04/14/2023 1:30 PM EST Imaging Vascular Lab, [facility] 2nd Floor, [place] [address] [place] [address] 04/14/2023 3:00 PM EST Office Visit Cardiology, [facility] [address] [facility] [place] [address] Wood Wong PA-C [address] [place] [address] 04/21/2023 1:00 PM EST Cardiac Studies Cardiology, [facility] [address] [facility] [place] [address] [facility] [address] [place] [address] 04/22/2023 11:00 AM EST Office Visit Nephrology, Raphael Marquez [address] [place] [address] Luz Tobias MD [address] [place] [address] 04/25/2023 1:20 PM EST Office Visit Family [facility] [place] [address] [place] [phone] David Umanzor MD [address] [place] [address] 05/04/2023 11:30 AM EST Home Visit [facility] [address] [place] [address] Tatyana Delaney RN [address] [place] [address] 05/26/2023 2:00 PM EST Laboratory Laboratory, [place] [address] [place] [address] [facility] [address] [place] [address] 05/31/2023 1:30 PM EST Imaging Radiology [address] 132 [place] [address] 06/07/2023 1:20 PM EST Office Visit Sleep Disorders Ctr [facility] 132 [place] [phone] Vira Byrd DO 132 [place] [address] 08/01/2023 2:00 PM EDT Laboratory Laboratory, [place] [address] [place] [address] [facility] [address] [place] [address] 08/02/2023 2:00 PM EDT Office Visit Rheumatology [facility] [address] [place] [address] Eliot Castelan CRNP [address] [place] [address] 08/08/2023 12:30 PM EDT Office Visit Hematology/Oncology [facility] 200 [facility] [place], [place] [address] Miguel A Alcantar MD 200 [facility] [place], [place] [address] 03/07/2024 1:00 PM EST Office Visit Cardiology, [facility] [address] [place] [id number] Manolo Millan MD [address] [place] [address] Scheduled Procedures Name Priority Associated [...] Additional history exists CKD PHOS USE SMARTSET 51114 12/02/202311/10, 08/06/2022, 08/21/2021, Additional history exists CKD HGB USE SMARTSET 27369 03/25/202403/25, 03/25/2023, 02/28/2023, Additional history exists DXA [...] this encounter Medical Devices Implanted Type Area Branch Office Administrator Device Identifier Shelf Expiration Date Model / Serial / Lot [place] Medical Embosphere Micrspheres Implanted:Qty: 2 on 11/02/2019 by Ish Grove MD at [facility] Right: Abdomen [employer] 05/11/2022 S220GH / S220GH / [id number] Syr Pf 2ml Embospheres 100-300 - [id number] Implanted:Qty: 1 on 11/14/2020 at [facility] [employer] [id number] 08/22/2023 S220GH / / [id number] Envelope Antibacterial Tyrx - [id number] Implanted:Qty: 1 on 12/29/2021 by Fatoumata Roland DO at [facility] [employer] : CRM [id number] 09/23/2022 CMR M6122 / / [id number] Stent Synergy Xd Mr 3.31c13ue - [id number] Implanted:Qty: 1 on 03/22/2022 by Katalina Pearce MD at [facility] [employer] [id number] 07/17/2023 [id number] / / [id number] Valve Berhane 3 Ultra 26mm - [id number] Implanted:Qty: 1 on 12/09/2022 by Manolo Millan MD at [facility] [employer] [id number] 12/04/2023 [id number] / / documented as of this encounter [...] the patient have Health Care Power of Instrument Fitter? No Care Teams Customer Experience Retail Clerk Relationship Specialty Start Date End Date David Umanzor MD [address] [place] [address] PCP - General 02/25/09 documented as of this encounter
--- OUTSIDE RECORDS SUMMARY | 2023-05-28 21:34 | External Medical Summary | Summary of Care ---
Author Name Unknown Organization [facility] Address [address] [facility] [place] [address] Phone [phone] Care Team Providers Care Aerial Sprayer Name Role Phone David Umanzor MD Primary Care Provider +1- [phone] Reason for Visit * Reason Onset Date Comments [facility]: Maintenance 04/13/2023 Encounter Details Date Type Department Care Team (Late st Contact Info) Description 04/13/2023 Telephone [facility], [facility] [address] [place] [address] Tatyana Delaney RN [address] [place] [address] [facility]: Maintenance Allergies Active Allergy [...] Active Fluticasone Propionate 50 MCG/ACT Nasal Suspension (Flonase)Indications:Electrolog Operator sanket rhinitis ADMINISTER 2 SPRAYS IN [...] daily 400 Each 3 3 Active Creon 04015-81947 UNIT Oral Capsule Delayed Release Particles (Pancrelipase (Zgp-Rlwt-Vcju))Indicatio ns:Pancreatic insufficiency TAKE ONE CAPSULE BY MOUTH [...] bedtime. 2 mL 5 3 Active Nystatin 342550 UNIT/GM External Powder (Nystop) APPLY TO AFFECTED [...] [facility]),Coronary artery disease involving [place] coronary [...] DELETE [facility] DETECT Study: Project # [id number], Chemistry Quality Control Analyst: Manny Santacruz, PhD. SUMMARY: Goal: Establish [...] contact study staff at ; after hours Chemistry Quality Control Analyst via the [facility] shirt operator . Please contact study team before resolving/deleting from patients problem list. Study phone number: [phone]. Diagnosis changed due to Research Module. Go to Snapshot for study details. Encounter for examination fo r normal comparison and control in clinical research program 11/08/2018 12/10/2021 Overview: DO NOT DELETE - [facility] Study: Project # [id number], Chemistry Quality Control Analyst: Kevin Pearce, MS, MPH. SUMMARY: Goal: [...] contact study staff at ; after hours Chemistry Quality Control Analyst via the [facility] hospital shirt operator . - Please contact study team before resolving/deleting from patients problem list. Study phone number: [phone]. Diagnosis changed due to Research Module. Go [...] Cameron LPN - 04/13/2023 1:12 PM EST error * Telephone Encounter - Tatyana Delaney RN - 04/13/2023 12:55 PM EST Pt is still waiting on Juzo stockings from [employer] [facility]. Called [facility] and spoke with Dilma - she reports they received the order but still need provider notes saying why she needs the compression stockings. Kwame Noble has the information in his note from 01/18/23. Can you please send this note to [employer] [facility]? Thank you! documented in this encounter Plan of Treatment Upcoming Encounters Date Type Department Care Team (Late st Contact Info) Description 04/14/2023 1:30 PM EST Imaging Vascular Lab, [facility] 2nd Floor, [place] 132 [facility] [place] [address] 04/14/2023 3:00 PM EST Office Visit Cardiology, [facility] [address] [facility] [place] [address] Wood Wong PA-C 132 [facility] [address] 04/21/2023 1:00 PM EST Cardiac Studies Cardiology, [facility] 132 [facility] [place] [address] [place], [facility]er [facility] 132 [facility] [place] [address] 04/22/2023 11:00 AM EST Office Visit Nephrology, [place] [address] [place] [address] Luz Tobias MD [address] [place] [address] 04/25/2023 1:20 PM EST Office Visit Family [facility] [place] [address] [facility], [place] [phone] David [facility]manzor MD [address] [facility] [address] 05/04/2023 11:30 AM EST Home Visit [facility] [address] Tatyana Delaney, RN 132 [facility] [place] [address] 05/26/2023 2:00 PM EST Laboratory Laboratory, [place] [address] [facility] [address] [facility] [address] [place] [address] 05/31/2023 1:30 PM EST Imaging Radiology [address] 132 [facility] [address] 06/07/2023 1:20 PM EST Office Visit [facility] Ctr [facility] 132 [facility] [phone] Vira Byrd, 132 [facility] [address] 08/01/2023 2:00 PM EDT Laboratory Laboratory, [place] [address] [facility] [phone] [facility] [address] [facility] [address] 08/02/2023 2:00 PM EDT Office Visit Rheumatology [address] [place] [address] Eliot Castelan CRNP [address] [place] [address] 08/08/2023 12:30 PM EDT Office Visit Hematology/Oncology [facility] [address] [place] [address] Miguel A Alcantar MD [address] [place] [address] 03/07/2024 1:00 PM EST Office Visit Cardiology, [facility] [address] [place] [address] Manolo Millan MD [address] [facility] [address] Scheduled Procedures Name Priority Associated [...] Additional history exists CKD PHOS USE SMARTSET 08317 12/02/202311/10, 08/06/2022, 08/21/2021, Additional history exists CKD HGB USE SMARTSET 93239 03/25/202403/25, 03/25/2023, 02/28/2023, Additional history exists DXA [...] this encounter Medical Devices Implanted Type Area Scow Derrick Operator Device Identifier Shelf Expiration Date Model / Serial / Lot Re5ult Embosphere Micrspheres Implanted:Qty: 2 on 11/02/2019 by Ish Grove MD at [facility] Right: Abdomen [employer] 05/11/2022 S220GH / S220GH / [id number] Syr Pf 2ml Embospheres 100-300 - [id number] Implanted:Qty: 1 on 11/14/2020 at [facility] [employer] [id number] 08/22/2023 S220GH / / [id number] Envelope Antibacterial Tyrx - [id number] Implanted:Qty: 1 on 12/29/2021 by Fatoumata Roland DO at OR [facility] [employer] : CRM [id number] 09/23/2022 CMR M6122 / / [id number] Stent Synergy Xd Mr 3.06p49nw - [id number] Implanted:Qty: 1 on 03/22/2022 by Katalina Pearce MD at [facility] [employer] [id number] 07/17/2023 [id number] / / [id number] Valve Berhane 3 Ultra 26mm - [id number] Implanted:Qty: 1 on 12/09/2022 by Manolo Millan MD at [facility] [employer] [id number] 12/04/2023 [id number] / / documented as of this encounter [...] the patient have Health Care Power of Spine Specialist? No Care Teams Aerial Sprayer Relationship Specialty Start Date End Date David Umanzor MD [address] [place] [address] PCP - General 02/25/09 documented as of this encounter
--- OUTSIDE RECORDS SUMMARY | 2023-05-28 21:34 | External Medical Summary | Summary of Care ---
Author Name Unknown Organization [facility] Address [address] [facility] [place] [address] Phone [phone] Care Team Providers Care Heel Stiffener Name Role Phone David Umanzor MD Primary Care Provider +1- [phone] Reason for Visit * Reason Onset Date Comments [facility]: Maintenance 04/13/2023 Encounter Details Date Type Department Care Team (Late st Contact Info) Description 04/13/2023 Telephone [facility], [facility] [address] [place] [address] Tatyana Delaney RN [address] [place] [address] [facility]: Maintenance Allergies Active Allergy [...] Active Fluticasone Propionate 50 MCG/ACT Nasal Suspension (Flonase)Indications:Mirror Machine Feeder sanket rhinitis ADMINISTER 2 SPRAYS IN EACH [...] daily 400 Each 3 3 Active Creon 97033-97113 UNIT Oral Capsule Delayed Release Particles (Pancrelipase (Sgg-Abvt-Zpby))Indicatio ns:Pancreatic insufficiency TAKE ONE CAPSULE BY MOUTH [...] bedtime. 2 mL 5 3 Active Nystatin 255866 UNIT/GM External Powder (Nystop) APPLY TO AFFECTED [...] fraction) ([facility]),Coronary artery disease involving [place] coronary artery of [place] heart without angina pectoris,Nonrheumatic aortic valve stenosis,Cardiac [...] HYDROcodone-Acetaminophen 5-325 MG Oral TabletIndications:Atheros clerosis of [place] artery of left lower extremity with intermittent [...] to excess calories 0 08/09/2022 Atherosclerosis of [place] ar jania of left lower extremity with intermittent claudication 08/09/2022 Coronary artery disease invo lving [place] coronary artery of [place] heart with angina pectoris 03/22/2022 Last Assessment [...] Diabetic retinopathy Rheumatoid arthritis of [facility] sites without rheumatoid factor 01/26/2016 Last [...] NOT DELETE [facility] DETECT Study: Project # [id number], Knowledge Manager: Manny Santacruz, PhD. SUMMARY: Goal: Establish [...] contact study staff at ; after hours Knowledge Manager via the [facility] dielectric press operator . Please contact study team before resolving/deleting from patients problem list. Study phone number: [phone]. Diagnosis changed due to Research Module. Go to Snapshot for study details. Encounter for examination fo r normal comparison and control in clinical research program 11/08/2018 12/10/2021 Overview: DO NOT DELETE - [facility] Study: Project # [id number], Knowledge Manager: Kevin Pearce, MS, MPH. SUMMARY: Goal: [...] contact study staff at ; after hours Knowledge Manager via the [facility] hospital dielectric press operator . - Please contact study team before resolving/deleting from patients problem list. Study phone number: [phone]. Diagnosis changed due to Research Module. Go [...] right fax not working will attempt later * Telephone Encounter - Tatyana Delaney RN - 04/13/2023 12:55 PM EST Pt is still waiting on Juzo stockings from [employer]. Called [employer] and spoke with Dilma - she reports they received the order but still need provider notes saying why she needs the compression stockings. Kwame Noble has the information in his note from 01/18/23. Can you please send this note to [employer]? Thank you! documented in this encounter Plan of Treatment Upcoming Encounters Date Type Department Care Team (Late st Contact Info) Description 04/14/2023 1:30 PM EST Imaging Vascular Lab, [facility] 2nd Floor, [place] [address] [facility] [place] [address] 04/14/2023 3:00 PM EST Office Visit Cardiology, [facility] [address] [facility] [place] [address] Wood Wong PA-C [address] [place] [address] 04/21/2023 1:00 PM EST Cardiac Studies Cardiology, [facility] [address] [facility] [place] [address] [place], Pacer Clinic [facility] 132 [facility] [place] [address] 04/22/2023 11:00 AM EST Office Visit Nephrology, [place]hael Marquez [address] [place] [address] Luz Tobias MD 200 [facility] [place] [address] 04/25/2023 1:20 PM EST Office Visit Family Practice, [place] [address] [place] [facility] [place] [phone] David Umanzor MD [address] [place] [facility] [place] [address] 05/04/2023 11:30 AM EST Home Visit [facility]inger at [facility] 132 [facility] [place] [address] Tatyana Delaney RN 132 [facility] [place] [address] 05/26/2023 2:00 PM EST Laboratory Laboratory, [place] [address] [facility] [address] [facility] [address] [place] [address] 05/31/2023 1:30 PM EST Imaging Radiology [facility] [address] [facility] [place] [address] 06/07/2023 1:20 PM EST Office Visit Sleep Disorders Ctr [facility] 132 [facility] [place] [phone] Vira Byrd, DO 132 [facility] [place] [address] 08/01/2023 2:00 PM EDT Laboratory Laboratory, [place] [address] [facility] [phone] [facility] [address] [facility] [address] 08/02/2023 2:00 PM EDT Office Visit Rheumatology [address] [place] [address] Eliot Castelan CRNP [address] [employer] [place], [place] [address] 08/08/2023 12:30 PM EDT Office Visit Hematology/Oncology [facility] [address] [place] [address] Miguel A Alcantar MD [address] [place] [address] 03/07/2024 1:00 PM EST Office Visit Cardiology, [facility] [address] [facility] [place] [address] Manolo Millan MD [address] [place] [address] Scheduled Procedures Name Priority Associated [...] Additional history exists CKD PHOS USE SMARTSET 10343 12/02/202311/10, 08/06/2022, 08/21/2021, Additional history exists CKD HGB USE SMARTSET 26880 03/25/202403/25, 03/25/2023, 02/28/2023, Additional history exists DXA [...] this encounter Medical Devices Implanted Type Area Hearing Aid Dispenser Device Identifier Shelf Expiration Date Model / Serial / Lot [employer] Embosphere Micrspheres Implanted:Qty: 2 on 11/02/2019 by Ish Grove MD at [facility] Right: Abdomen [employer] 05/11/2022 S220GH / S220GH / [id number] Syr Pf 2ml Embospheres 100-300 - [id number] Implanted:Qty: 1 on 11/14/2020 at [facility] [id number] 08/22/2023 S220GH / / [id number] Envelope Antibacterial Tyrx - [id number] Implanted:Qty: 1 on 12/29/2021 by Fatoumata Roland DO at OR [facility] [employer] : CRM [id number] 09/23/2022 CMR M6122 / / [id number] Stent Synergy Xd Mr 3.52h31dl - [id number] Implanted:Qty: 1 on 03/22/2022 by Katalina Pearce MD at [facility] [employer] [id number] 07/17/2023 [id number] / / [id number] Valve Berhane 3 Ultra 26mm - [id number] Implanted:Qty: 1 on 12/09/2022 by Manolo Millan MD at [facility] [employer] [id number] 12/04/2023 [id number] / / documented as of this encounter [...] the patient have Health Care Power of Bumper And Painter? No Care Teams Heel Stiffener Relationship Specialty Start Date End Date David Umanzor MD [address] [place] [address] PCP - General 02/25/09 documented as of this encounter
--- OUTSIDE RECORDS SUMMARY | 2023-05-28 21:34 | External Medical Summary | Summary of Care ---
Author Name Unknown Organization [facility] Address [address] [facility] [place] [address] Phone [phone] Care Team Providers Care Fashion Buying Internship Name Role Phone David Umanzor MD Primary Care Provider +1- [phone] Reason for Visit * Reason Onset Date Comments [facility]: Maintenance 04/07/2023 Encounter Details Date Type Department Care Team (Late st Contact Info) Description 04/07/2023 Telephone [facility], [facility] [address] [facility] [place] [address] [facility], Nurse [facility] [address] [facility] [place] [address] [facility]: Maintenance Allergies Active Allergy Reactions Criticality Noted Date Comments Bactrim 02/09/2010 Cephalosporins Anaphylaxis,Edema face/lips/tongue High 04/11/2009 Anaphylaxis to cefaclor, facial swelling to cephalexin. Ciprofloxacin Low 03/30/2021 Other reaction(s): Nausea Butorphanol Tartrate 02/09/2010 Heart racing Sulfa Antibiotics Hives High 05/22/2002 Other reaction(s): Hives Trimethoprim 04/15/2022 Other reaction(s): Hives documented as of this encounter (statuses as of 04/07/2023) Medications Medication Sig Dispensed Refills Start Date [...] 1 2 Active Blood Glucose Monitoring Suppl (twago - teamwork across global offices AUTOCODE BLOOD GLUCOSE) w/Device KITIndications:DM type 2 [...] Active Fluticasone Propionate 50 MCG/ACT Nasal Suspension (Flonase)Indications:Well Testing Operator sanket rhinitis ADMINISTER 2 SPRAYS IN [...] daily 400 Each 3 3 Active Creon 71467-82058 UNIT Oral Capsule Delayed Release Particles (Pancrelipase (Drh-Dmzp-Ckmf))Indicatio ns:Pancreatic insufficiency TAKE ONE CAPSULE BY MOUTH [...] bedtime. 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 45 Tablet 0 3 Active documented as of this encounter (statuses as of 04/07/2023) Active Problems Problem Noted Date Diagnosed Date [...] as of this encounter (statuses as of 04/07/2023) Resolved Problems Problem Noted Date Diagnosed Date [...] DELETE [facility] DETECT Study: Project # [id number], Cardiology Rn: Manny Santacruz, PhD. SUMMARY: Goal: Establish test [...] contact study staff at ; after hours Cardiology Rn via the [facility] tc operator . Please contact study team before resolving/deleting from patients problem list. Study phone number: [phone]. Diagnosis changed due to Research Module. Go to Snapshot for study details. Encounter for examination fo r normal comparison and control in clinical research program 11/08/2018 12/10/2021 Overview: DO NOT DELETE - [facility] Study: Project # [id number], Cardiology Rn: Kevin Pearce, MS, MPH. SUMMARY: Goal: Establish [...] contact study staff at ; after hours Cardiology Rn via the [facility] tc operator . - Please contact study team before resolving/deleting from patients problem list. Study phone number: [phone]. Diagnosis changed due to Research Module. Go [...] as of this encounter (statuses as of 04/07/2023) Immunizations Name Administration Dates Next Due COVID-19 [...] encounter Miscellaneous Notes * Telephone Encounter - Georgia Velásquez LPN - 04/07/2023 1:34 PM EST Call from [facility] stating they received a fax from [facility] for pt They are unable to except referral Will forward to [facility] scheduling poll to make aware documented in this encounter Plan of Treatment Upcoming Encounters Date Type Department Care Team (Late st Contact Info) Description 04/13/2023 12:30 PM EST Home Visit isinger at [facility] [address] [place] [address] Tatyana Delaney RN [address] [place] [address] 04/14/2023 3:00 PM EST Office Visit Cardiology, [facility] [address] [place] [address] Wood Wong PA-C [address] [place] [address] 04/21/2023 1:00 PM EST Cardiac Studies Cardiology, [facility] [place] [address] [place], Pacer Clinic [facility] [address] [place] [address] 04/22/2023 11:00 AM EST Office Visit Nephrology, [facility] [address] [facility] [place] [address] Luz Tobias MD [address] [facility] [place] [address] 04/25/2023 1:20 PM EST Office Visit [facility] [address] [place] [facility] [phone] David Umanzor MD [address] [facility] [place] [phone] 05/26/2023 2:00 PM EST Laboratory Laboratory, [place] [address] [place] [address] [place], [facility] [address] [place] [address] 05/31/2023 1:30 PM EST Imaging Radiology [facility] [address]st [facility], [place] [address] [place] [address] 06/07/2023 1:20 PM EST Office Visit [facility] [phone] [facility]a Byrd[facility] [address] 08/01/2023 2:00 PM EDT Laboratory Laboratory, [place] [address] [place] [address] [facility] [address] [place] [address] 08/02/2023 2:00 PM EDT Office Visit Rheumatology [address] [place] [address] Eliot Castelan CRNP [address] [place] [address] [place] [address] 08/08/2023 12:30 PM EDT Office Visit Hematology/Oncology Raphael Marquez [place] [address] [place] [address] Miguel A Alcantar MD [address] [place] [address] 03/07/2024 1:00 PM EST Office Visit Cardiology, [facility] [address] [place] [address] Manolo Millan MD [address] [facility] [place] [address] Scheduled Procedures Name [...] Additional history exists CKD PHOS USE SMARTSET 49951 12/02/202311/10, 08/06/2022, 08/21/2021, Additional history exists CKD HGB USE SMARTSET 01976 03/25/202403/25, 03/25/2023, 02/28/2023, Additional history exists DXA [...] this encounter Medical Devices Implanted Type Area Supervisor Photostat Device Identifier Shelf Expiration Date Model / Serial / Lot vArmour Medical Embosphere Micrspheres Implanted:Qty: 2 on 11/02/2019 by Ish Grove MD at [facility] Right: Abdomen [employer] 05/11/2022 S220GH / [id number] / [id number] Syr Pf 2ml Embospheres 100-300 - [id number] Implanted:Qty: 1 on 11/14/2020 at [facility] [employer] [id number] 08/22/2023 S220GH / / [id number] Envelope Antibacterial Tyrx - [id number] Implanted:Qty: 1 on 12/29/2021 by Fatoumata Roland DO at [facility] [employer] : CRM [id number] 09/23/2022 CMR [id number] / / [id number] Stent Synergy Xd Mr 3.13z63pl - [id number] Implanted:Qty: 1 on 03/22/2022 by Katalina Pearce MD at [facility] [employer] [id number] 07/17/2023 [id number] / / [id number] Valve Berhane 3 Ultra 26mm - [id number] Implanted:Qty: 1 on 12/09/2022 by Manolo Millan MD at [facility] [employer] [id number] 12/04/2023 [id number] / / documented as of this encounter [...] the patient have Health Care Power of Counter Tacker? No Care Teams Fashion Buying Internship Relationship Specialty Start Date End Date David Umanzor MD [address] [place] [address] PCP - General 02/25/09 documented as of this encounter
--- OUTSIDE RECORDS SUMMARY | 2023-05-28 21:34 | External Medical Summary | Summary of Care ---
Author Name Unknown Organization [facility] Address [address] [facility] [place] [address] Phone [phone] Care Team Providers Care Rfid Systems Engineer Name Role Phone David Umanzor MD Primary Care Provider +1- [phone] Reason for Visit * Reason Onset Date Comments [facility]: Maintenance 04/13/2023 Encounter Details Date Type Department Care Team (Late st Contact Info) Description 04/13/2023 Telephone [facility], [facility] [address] [employer] [address] [place] [address] Tatayna Delaney RN [address] [facility] [place] [address] [facility]: Maintenance Allergies Active Allergy [...] causing neurological disease, not at goal ([facility]) Test blood sugar 4 times daily Dx: E11.9 1 Kit 0 9 Active PRODIGY LANCETS 28G MISCIndications:DM type 2, not at goal ([facility]) TEST BLOOD SUAGER 4 TIMES A DAY [...] A1c goal of less than 7.0% ([facility]),Type 2 diabetes mellitus with stage 3 chronic kidney disease, with long-term current use of insulin, unspecified whether stage 3a or 3b CKD ([facility]),DM type 2 causing neurological disease, not at goal ([facility]) TEST BLOOD SUGAR UP TO FOUR TIMES DAILY 400 Strip 3 2 Active Fluticasone Propionate 50 MCG/ACT Nasal Suspension (Flonase)Indications:Retail Sales Clerk sanket rhinitis ADMINISTER 2 SPRAYS IN EACH [...] daily 400 Each 3 3 Active Creon 12200-81087 UNIT Oral Capsule Delayed Release Particles (Pancrelipase (Hme-Edcd-Ixkh))Indicatio ns:Pancreatic insufficiency TAKE ONE CAPSULE BY MOUTH [...] bedtime. 2 mL 5 3 Active Nystatin 629807 UNIT/GM External Powder (Nystop) APPLY TO AFFECTED AREAS UNDER THE BREASTS THREE TIMES PER DAY NEEDED 30 g 1 3 Active NovoLOG FlexPen 100 UNIT/ML Subcutaneous Solution Pen-injector (insulin aspart)Indications:Type 2 diabetes mellitus with hyperosmolarity without coma, without long-term current use of insulin ([facility]) Inject 10 units with breakfast, 4 units with lunch, and 10 units with PM meal. Inject 4 units if BG is >200. 30 mL 5 3 Active Acetaminophen 500 MG Oral TabletIndications:HFrEF (heart failure with reduced ejection fraction) ([facility]),Coronary artery disease involving ruby coronary artery of ruby heart without angina pectoris,Nonrheumatic aortic valve stenosis,Cardiac pacemaker in situ,Tachy-wilfrido syndrome ([facility]) Take 1 Tablet by mouth at bedtime. [...] without long-term current use of insulin ([facility]) Inject 30 units daily 45 mL 1 [...] HYDROcodone-Acetaminophen 5-325 MG Oral TabletIndications:Atheros clerosis of ruby artery of left lower extremity with intermittent [...] to excess calories 0 08/09/2022 Atherosclerosis of ruby ar jania of left lower extremity with intermittent claudication 08/09/2022 Coronary artery disease invo lving ruby coronary artery of ruby heart with angina pectoris 03/22/2022 Last Assessment [...] retinopathy Rheumatoid arthritis of [facility] without rheumatoid factor 01/26/2016 Last Assessment [...] DELETE [facility] DETECT Study: Project # [id number], Stencil Machine Operator: Manny Santacruz, PhD. SUMMARY: Goal: [...] contact study staff at ; after hours Stencil Machine Operator via the [facility] composing machine operator/tender . Please contact study team before resolving/deleting from patients problem list. Study phone number: [phone]. Diagnosis changed due to Research Module. Go to Snapshot for study details. Encounter for examination fo r normal comparison and control in clinical research program 11/08/2018 12/10/2021 Overview: DO NOT DELETE - [facility] Study: Project # [id number], Stencil Machine Operator: Kevin Pearce, MS, MPH. SUMMARY: [...] contact study staff at ; after hours Stencil Machine Operator via the [facility] composing machine operator/tender . - Please contact study team before resolving/deleting from patients problem list. Study phone number: [phone]. Diagnosis changed due to Research Module. Go [...] is still waiting on Juzo stockings from [employer]. Called [employer] and spoke with Dilma - she reports they received the order but still need provider notes saying why she needs the compression stockings. Kwame Noble has the information in his note from 01/18/23. Can you please send this note to [employer]? Thank you! documented in this encounter Plan of Treatment Upcoming Encounters Date Type Department Care Team (Late st Contact Info) Description 04/14/2023 1:30 PM EST Imaging Vascular Lab, [facility] 2nd Floor, [place] [address] [facility] [place] [address] 04/14/2023 3:00 PM EST Office Visit Cardiology, [facility] [address] [facility] [place] [address] Wood Wong PA-C [address] [place] [address] 04/21/2023 1:00 PM EST Cardiac Studies Cardiology, [facility] [address] [facility] [place] [address] [place], Pacer Clinic [facility] [address] [facility] [place] [address] 04/22/2023 11:00 AM EST Office Visit Nephrology, [facility]hael Marquez [address] [place] [address] Luz Tobias MD [address] [facility] [place] [address] 04/25/2023 1:20 PM EST Office Visit Family Practice, [place] [address] [place] [facility] [place] [phone] David Umanzor MD [address] [place] [facility] [place] [address] 05/04/2023 11:30 AM EST Home Visit [facility]inger at [facility] [address] [facility] [address] Tatyana Delaney RN 132 [place] [address] 05/26/2023 2:00 PM EST Laboratory Laboratory, [place] [address] [facility] [address] [facility] [address] [facility] [place] [address] 05/31/2023 1:30 PM EST Imaging Radiology [facility] 1st [facility] [address] [facility] [place] [address] 06/07/2023 1:20 PM EST Office Visit Sleep Disorders Ctr [facility] [address] [employer] [place] [phone] Vira Byrd, DO [address] [facility] [place] [address] 08/01/2023 2:00 PM EDT Laboratory Laboratory, [place] [address] [facility] [phone] Abdel[facility] [address] [facility] [address] 08/02/2023 2:00 PM EDT Office Visit Rheumatology [address] [place] [address] Eliot Castelan CRNP [address] [place] [employer] [place], [place] [address] 08/08/2023 12:30 PM EDT Office Visit Hematology/Oncology [facility] [address] [place] [address] Miguel A Alcantar MD [address] [place] [address] 03/07/2024 1:00 PM EST Office Visit Cardiology, [facility] [address] [facility] [place] [address] Manolo Millan MD [address] [place] [address] Scheduled Procedures Name Priority Associated [...] Additional history exists CKD PHOS USE SMARTSET 56472 12/02/202311/10, 08/06/2022, 08/21/2021, Additional history exists CKD HGB USE SMARTSET 91561 03/25/202403/25, 03/25/2023, 02/28/2023, Additional history exists DXA [...] this encounter Medical Devices Implanted Type Area Quarry Plant Crusher Operator Device Identifier Shelf Expiration Date Model / Serial / Lot CENX Embosphere Micrspheres Implanted:Qty: 2 on 11/02/2019 by Ish Grove MD at [facility] Right: Abdomen [employer] 05/11/2022 S220GH / S220GH / [id number] Syr Pf 2ml Embospheres 100-300 - [id number] Implanted:Qty: 1 on 11/14/2020 at [facility] [id number] 08/22/2023 S220GH / / [id number] Envelope Antibacterial Tyrx - [id number] Implanted:Qty: 1 on 12/29/2021 by Fatoumata Roland DO at OR [facility] [employer] : CRM [id number] 09/23/2022 CMR M6122 / / [id number] Stent Synergy Xd Mr 3.91o03ug - [id number] Implanted:Qty: 1 on 03/22/2022 by Katalina Pearce MD at [facility] [employer] [id number] 07/17/2023 [id number] / / [id number] Valve Berhane 3 Ultra 26mm - [id number] Implanted:Qty: 1 on 12/09/2022 by Manolo Millan MD at [facility] [employer] [id number] 12/04/2023 [id number] / / documented as of this encounter [...] the patient have Health Care Power of Donor Support Technician? No Care Teams Rfid Systems Engineer Relationship Specialty Start Date End Date David Umanzor MD [address] [place] [address] PCP - General 02/25/09 documented as of this encounter
--- OUTSIDE RECORDS SUMMARY | 2023-05-28 21:34 | External Medical Summary | Summary of Care ---
Author Name Unknown Organization [facility] Address [address] [facility] [place] [address] Phone [phone] Care Team Providers Care Facility Rehab Director Name Role Phone David Umanzor MD Primary Care Provider [phone]- [phone] Reason for Visit * Reason Onset Date Comments Order Request 03/29/2023 Encounter Details Date Type Department Care Team (Late st Contact Info) Description 03/29/2023 Telephone Cardiology, [facility] [address] [place] [address] Wood Wong PA-C [address] [place] [address] Order Request Allergies Active Allergy Reactions Criticality Noted Date Comments Bactrim 02/09/2010 Cephalosporins Anaphylaxis,Edema face/lips/tongue High 04/11/2009 Anaphylaxis to cefaclor, facial swelling to cephalexin. Ciprofloxacin Low 03/30/2021 Other reaction(s): Nausea Butorphanol Tartrate 02/09/2010 Heart racing Sulfa Antibiotics Hives High 05/22/2002 Other reaction(s): Hives Trimethoprim 04/15/2022 Other reaction(s): Hives documented as of this encounter (statuses as of 04/08/2023) Medications Medication Sig Dispensed Refills Start Date [...] neurological disease, not at goal ([facility]) Test blood sugar 4 times daily Dx: E11.9 1 Kit 0 9 Active PRODIGY LANCETS 28G MISCIndications:DM type 2, not at goal ([facility]) TEST BLOOD SUAGER 4 TIMES A DAY [...] goal of less than 7.0% ([facility]),Type 2 diabetes mellitus with stage 3 chronic kidney disease, with long-term current use of insulin, unspecified whether stage 3a or 3b CKD ([facility]),DM type 2 causing neurological disease, not at goal ([facility]) TEST BLOOD SUGAR UP TO FOUR TIMES DAILY 400 Strip 3 2 Active Fluticasone Propionate 50 MCG/ACT Nasal Suspension (Flonase)Indications:Shaker Plate Operator sanket rhinitis ADMINISTER 2 SPRAYS IN [...] daily 400 Each 3 3 Active Creon 25542-69431 UNIT Oral Capsule Delayed Release Particles (Pancrelipase (Srp-Nwsf-Rfhf))Indicatio ns:Pancreatic insufficiency TAKE ONE CAPSULE BY MOUTH [...] bedtime. 2 mL 5 3 Active Nystatin 636192 UNIT/GM External Powder (Nystop) APPLY TO AFFECTED AREAS UNDER THE BREASTS THREE TIMES PER DAY NEEDED 30 g 1 3 Active NovoLOG FlexPen 100 UNIT/ML Subcutaneous Solution Pen-injector (insulin aspart)Indications:Type 2 diabetes mellitus with hyperosmolarity without coma, without long-term current use of insulin ([facility]) Inject 10 units with breakfast, 4 units with lunch, and 10 units with PM meal. Inject 4 units if BG is >200. 30 mL 5 3 Active Acetaminophen 500 MG Oral TabletIndications:HFrEF (heart failure with reduced ejection fraction) ([facility]),Coronary artery disease involving [place] coronary artery of [place] heart without angina pectoris,Nonrheumatic aortic valve stenosis,Cardiac pacemaker in situ,Tachy-wilfrido syndrome ([facility]) Take 1 Tablet by mouth at bedtime. [...] long-term current use of insulin ([facility]) Inject 30 units daily 45 mL 1 [...] and diastolic congestive heart failure ([facility]) Take 1 Capsule by mouth in the [...] (TUESDAY 9AM) 16 Tablet 2 3 Active documented as of this encounter (statuses as of 04/08/2023) Active Problems Problem Noted Date Diagnosed Date [...] to excess calories 0 08/09/2022 Atherosclerosis of [place] ar jania of left lower extremity with intermittent claudication 08/09/2022 Coronary artery disease invo lving [place] coronary artery of [place] heart with angina pectoris 03/22/2022 Last Assessment [...] 12/21/2016 Overview: Diabetic retinopathy Rheumatoid arthritis of [facility] sites without rheumatoid factor 01/26/2016 [...] AHI 17.1, significant hypoxia and PLMS [facility] Vitamin D deficiency 04/21/2011 Iron deficiency anemia 03/15/2011 Overview: ICD-10 update of inactive term Last Assessment & Plan: Last hemoglobin 11.4 on 08/06 -continue ferrous sulfate. Med list updated. High triglycerides 02/13/2004 Overview: TG's as high as 6400 Postsurgical hypothyroidism 02/13/2004 Last Assessment & Plan: Last TSH 0.9 on 04/13/2022 -continue Synthroid documented as of this encounter (statuses as of 04/08/2023) Resolved Problems Problem Noted Date Diagnosed Date [...] DELETE [facility] DETECT Study: Project # [id number], Publications Production Supervisor: Manny Santacruz, PhD. SUMMARY: Goal: Establish [...] contact study staff at ; after hours Publications Production Supervisor via the [facility] hospital ball fringe machine operator . Please contact study team before resolving/deleting from patients problem list. Study phone number: [phone]. Diagnosis changed due to Research Module. Go to Snapshot for study details. Encounter for examination fo r normal comparison and control in clinical research program 11/08/2018 12/10/2021 Overview: [facility] NOT DELETE [facility] Study: Project # [id number], Publications Production Supervisor: Kevin Pearce, MS, MPH. SUMMARY: Goal: [...] contact study staff at ; after hours Publications Production Supervisor via the [facility] hospital ball fringe machine operator . - Please contact study team before resolving/deleting from patients problem list. Study phone number: [phone]. Diagnosis changed due to Research Module. Go [...] as of this encounter (statuses as of 04/08/2023) Immunizations Name Administration Dates Next Due COVID-19 [...] Telephone Encounter - Geovanna Castillo OSA - 04/08/2023 11:19 AM EST Spoke with Pt, US scheduled 04/14 at 1:30 with her appt with Wood reyes. Pt requested this d/t transportation. * Telephone Encounter - Iliana Loza CMA - 04/08/2023 10:45 AM EST New order placed. * Telephone Encounter - Marilee Moore OSA - 03/29/2023 8:28 AM EST Good Morning Patient calling to reschedule carotid duplex to after the of the Order expries 04/[address] new order Thank you documented in this encounter Plan of Treatment Upcoming Encounters Date Type Department Care Team (Late st Contact Info) Description 04/13/2023 12:30 PM EST Home Visit nan at Home, [facility] [address] [place] [address] Tatyana Delaney RN [address] [place] [address] 04/14/2023 1:30 PM EST Imaging Vascular Lab, [facility] 2nd Floor, [place] [address] [place] [address] 04/14/2023 3:00 PM EST Office Visit Cardiology, [facility] [address] [place] [address] Wood Wong PAMirandaC [address] [place] [address] 04/21/2023 1:00 PM EST Cardiac Studies Cardiology, [facility] [address] [place] [address] [facility] [address] [place] [address] 04/22/2023 11:00 AM EST Office Visit Nephrology, [facility] [address] [place] [address] Luz Tboias MD [address] [place] [address] 04/25/2023 1:20 PM EST Office Visit Family [facility], [place] [address] [facility], [place] [address] David Umanzor MD [address] [place] [address] 05/26/2023 2:00 PM EST Laboratory Laboratory, [place] [address] [place] [address] [facility] [address] [facility] [place] [address] 05/31/2023 1:30 PM EST Imaging Radiology [address] 132 [place] [address] 06/07/2023 1:20 PM EST Office Visit Sleep Disorders Ctr [facility] [address] [place] [id number] Vira Byrd, [address] [facility] [place] [address] 08/01/2023 2:00 PM EDT Laboratory Laboratory, [place] [address] [place] [address] [facility] [address] [facility] [place] [address] 08/02/2023 2:00 PM EDT Office Visit Rheumatology [facility] [address] [facility] [place] [address] Eliot Castelan CRNP [address] [place] [address] 08/08/2023 12:30 PM EDT Office Visit Hematology/Oncology [facility] [address] [facility] [place], [place] [address] Miguel A Alcantar MD [address] [place] [address] 03/07/2024 1:00 PM EST Office Visit Cardiology, [facility] [address] [facility] [place] [address] Manolo Millan MD [address] [facility] [address] Scheduled Orders Name Type Priority Associated Diagnoses Orde r Schedule VASC DUPLEX CAROTID BILAT Medical Imaging Routine Bilateral carotid bruits Dyslipidemia, goal LDL below 70 Carotid stenosis, bilateral Expected: 04/09/2023, Expires: 05/09/2024 Scheduled Procedures Name Priority Associated Diagnoses Date/Ti [...] Additional history exists CKD PHOS USE SMARTSET 43226 12/02/202311/10, 08/06/2022, 08/21/2021, Additional history exists CKD HGB USE SMARTSET 60963 03/25/202403/25, 03/25/2023, 02/28/2023, Additional history exists DXA [...] this encounter Medical Devices Implanted Type Area Agriculture Extension Specialist Device Identifier Shelf Expiration Date Model / Serial / Lot [employer]otch Medical Embosphere Micrspheres Implanted:Qty: 2 on 11/02/2019 by Ish Grove MD at [facility] Right: Abdomen [employer] 05/11/2022 S220GH / S220GH / [id number] Syr Pf 2ml Embospheres 100-300 - [id number] Implanted:Qty: 1 on 11/14/2020 at [facility] [employer] [id number] 08/22/2023 S220GH / / [id number] Envelope Antibacterial Tyrx - [id number] Implanted:Qty: 1 on 12/29/2021 by Fatoumata Roland DO at [facility] [employer] : CRM [id number] 09/23/2022 CMR [id number] / / [id number] Stent Synergy Xd Mr 3.79c74pb - [id number] Implanted:Qty: 1 on 03/22/2022 by Katalina Pearce MD at [facility] [employer] [id number] 07/17/2023 [id number] / / [id number] Valve Berhane 3 Ultra 26mm - [id number] Implanted:Qty: 1 on 12/09/2022 by Manolo Millan MD at [facility] [employer] [id number] 12/04/2023 [id number] / / documented as of this encounter [...] the patient have Health Care Power of Clean Out Driller? No Care Teams Facility Rehab Director Relationship Specialty Start Date End Date David Umanzor MD [address] [place] [address] PCP - General 02/25/09 documented as of this encounter
--- OUTSIDE RECORDS SUMMARY | 2023-05-28 21:34 | External Medical Summary | Summary of Care ---
Author Name Unknown Organization [facility] Address [address] [facility] [place] [address] Phone [phone] Care Team Providers Care Files Supervisor Name Role Phone David Umanzor MD Primary Care Provider [phone]- [phone] Reason for Visit * Reason Onset Date Comments [facility]: Maintenance 04/13/2023 Encounter Details Date Type Department Care Team (Late st Contact Info) Description 04/13/2023 Telephone [facility], [facility] [address] [place] [address] Tatyana Delaney RN [address] [place] [address] [facility]: Maintenance Allergies Active Allergy [...] Active Fluticasone Propionate 50 MCG/ACT Nasal Suspension (Flonase)Indications:Diamond Die Maker sanket rhinitis ADMINISTER 2 SPRAYS IN EACH [...] daily 400 Each 3 3 Active Creon 77778-97217 UNIT Oral Capsule Delayed Release Particles (Pancrelipase (Uep-Dcqv-Uajn))Indicatio ns:Pancreatic insufficiency TAKE ONE CAPSULE BY MOUTH [...] bedtime. 2 mL 5 3 Active Nystatin 965219 UNIT/GM External Powder (Nystop) APPLY TO AFFECTED [...] [facility]),Coronary artery disease involving burns pai[place] coronary artery of burns [place] heart without angina pectoris,Nonrheumatic aortic valve stenosis,Cardiac [...] HYDROcodone-Acetaminophen 5-325 MG Oral TabletIndications:Atheros clerosis of burns pai[place] artery of left lower extremity with intermittent [...] to excess calories 0 08/09/2022 Atherosclerosis of [place] ar jania of left lower extremity with intermittent claudication 08/09/2022 Coronary artery disease invo lving burns [place] coronary artery of burns [place] heart with angina pectoris 03/22/2022 Last Assessment [...] 12/21/2016 Overview: Diabetic retinopathy Rheumatoid arthritis of [facility] sites without rheumatoid factor 01/26/2016 [...] [facility] DET[facility] Study: Project # [id number], Gear Cutter: Manny Santacruz, PhD. SUMMARY: Goal: Establish [...] contact study staff at ; after hours Gear Cutter via the [facility] reflow operator . Please contact study team before resolving/deleting from patients problem list. Study phone number: [phone]. Diagnosis changed due to Research Module. Go to Snapshot for study details. Encounter for examination fo r normal comparison and control in clinical research program 11/08/2018 12/10/2021 Overview: DO NOT DELETE - [facility] Study: Project # [id number], Gear Cutter: Kevin Pearce, MS, MPH. SUMMARY: Goal: [...] contact study staff at ; after hours Gear Cutter via the [facility] hospital reflow operator . - Please contact study team before resolving/deleting from patients problem list. Study phone number: [phone]. Diagnosis changed due to Research Module. Go [...] Still unable to fax will have another team leader surgery attempt * Telephone Encounter - Tatyana Delaney RN - 04/13/2023 12:55 PM EST Pt is still waiting on Juzo stockings from [employer]. Called [employer] and spoke with Dilma - she reports they received the order but still need provider notes saying why she needs the compression stockings. Kwame Aide has the information in his note from 01/18/23. Can you please send this note to [employer]? Thank you! documented in this encounter Plan of Treatment Upcoming Encounters Date Type Department Care Team (Late st Contact Info) Description 04/14/2023 1:30 PM EST Imaging Vascular Lab, [facility] 2nd Floor, [place] [address] [place] [address] 04/14/2023 3:00 PM EST Office Visit Cardiology, [facility] [address] [facility] [place] [address] Wood Wong PA-C [address] [place] [address] 04/21/2023 1:00 PM EST Cardiac Studies Cardiology, [facility] [address] [facility] [place] [address] [facility] [address] [place] [address] 04/22/2023 11:00 AM EST Office Visit Nephrology, Raphael Marquez [address] [place] [address] Luz Tobias MD [address] [place] [address] 04/25/2023 1:20 PM EST Office Visit Family [facility] [place] [address] [place] [address] David Umanzor MD [address] [place] [address] 05/04/2023 11:30 AM EST Home Visit [facility] [address] [place] [address] Tatyana Delaney RN [address] [place] [address] 05/26/2023 2:00 PM EST Laboratory Laboratory, [place] [address] [place] [address] [facility] [address] [place] [address] 05/31/2023 1:30 PM EST Imaging Radiology [address] 132 [place] [address] 06/07/2023 1:20 PM EST Office Visit Sleep Disorders Ctr [facility] [address] [place] [phone] Vira Byrd DO [address] [place] [address] 08/01/2023 2:00 PM EDT Laboratory Laboratory, [place] [address] [place] [address] [facility] [address] [place] [address] 08/02/2023 2:00 PM EDT Office Visit Rheumatology [facility] [address] [place] [address] Eliot Castelan CRNP [address] [place] [address] 08/08/2023 12:30 PM EDT Office Visit Hematology/Oncology [facility] [address] [facility] [place], [place] [address] Miguel A Alcantar MD [address] [facility] [place], [place] [address] 03/07/2024 1:00 PM EST Office Visit Cardiology, [facility] [address] [place] [id number] Manolo Millan MD [address] [place] [address] Scheduled Procedures Name Priority Associated [...] Additional history exists CKD PHOS USE SMARTSET 01632 12/02/202311/10, 08/06/2022, 08/21/2021, Additional history exists CKD HGB USE SMARTSET 64885 03/25/202403/25, 03/25/2023, 02/28/2023, Additional history exists DXA [...] this encounter Medical Devices Implanted Type Area Lobster Man Device Identifier Shelf Expiration Date Model / Serial / Lot Zetera Medical Embosphere Micrspheres Implanted:Qty: 2 on 11/02/2019 by Ish Grove MD at [facility] Right: Abdomen [place] [employer] 05/11/2022 S220GH / S220GH / [id number] Syr Pf 2ml Embospheres 100-300 - [id number] Implanted:Qty: 1 on 11/14/2020 at [facility] [employer] [id number] 08/22/2023 S220GH / / [id number] Envelope Antibacterial Tyrx - [id number] Implanted:Qty: 1 on 12/29/2021 by Fatoumata Roland DO at OR [facility] [employer] : CRM [id number] 09/23/2022 CMR M6122 / / [id number] Stent Synergy Xd Mr 3.73p30fl - [id number] Implanted:Qty: 1 on 03/22/2022 by Katalina Pearce MD at [facility] [employer] [id number] 07/17/2023 [id number] / / [id number] Valve Berhane 3 Ultra 26mm - [id number] Implanted:Qty: 1 on 12/09/2022 by Manolo Millan MD at [facility] [employer] [id number] 12/04/2023 [id number] / / documented as of this encounter [...] patient have Health Care Power of Health Physicist? No Care Teams Files Supervisor Relationship Specialty Start Date End Date David Umanzor MD [address] [place] [address] PCP - General 02/25/09 documented as of this encounter
--- OUTSIDE RECORDS SUMMARY | 2023-05-28 21:34 | External Medical Summary | Summary of Care ---
Author Name Unknown Organization [facility] Address [address] [facility] [place] [address] Phone [phone] Care Team Providers Care Tube Tester Name Role Phone David Umanzor MD Primary Care Provider +1- [phone] Reason for Visit * Reason Onset Date Comments [facility]: Maintenance 04/13/2023 Encounter Details Date Type Department Care Team (Late st Contact Info) Description 04/13/2023 Telephone [facility], [facility] [address] [place] [address] Tatyana Delaney RN [address] [facility] [place] [address] [facility]: Maintenance Allergies Active Allergy [...] Active Fluticasone Propionate 50 MCG/ACT Nasal Suspension (Flonase)Indications:Electronic Imager sanket rhinitis ADMINISTER 2 SPRAYS IN EACH [...] daily 400 Each 3 3 Active Creon 51727-60090 UNIT Oral Capsule Delayed Release Particles (Pancrelipase (Ndo-Fkpk-Fgha))Indicatio ns:Pancreatic insufficiency TAKE ONE CAPSULE BY MOUTH [...] bedtime. 2 mL 5 3 Active Nystatin 346632 UNIT/GM External Powder (Nystop) APPLY TO AFFECTED [...] fraction) ([facility]),Coronary artery disease involving mohegan coronary artery of mohegan heart without angina pectoris,Nonrheumatic aortic valve stenosis,Cardiac [...] HYDROcodone-Acetaminophen 5-325 MG Oral TabletIndications:Atheros clerosis of mohegan artery of left lower extremity with intermittent [...] to excess calories 0 08/09/2022 Atherosclerosis of mohegan ar jania of left lower extremity with intermittent claudication 08/09/2022 Coronary artery disease invo lving mohegan coronary artery of mohegan heart with angina pectoris 03/22/2022 Last Assessment [...] 12/21/2016 Overview: Diabetic retinopathy Rheumatoid arthritis of [facility] sites without rheumatoid factor 01/26/2016 Last [...] The Chronically Ill DETECT Study: Project # [id number], Mirror Fabrication Supervisor: Manny Santacruz, PhD. SUMMARY: Goal: Establish [...] contact study staff at ; after hours Mirror Fabrication Supervisor via the [facility] whiteprinting machine operator . Please contact study team before resolving/deleting from patients problem list. Study phone number: [phone]. Diagnosis changed due to Research Module. Go to Snapshot for study details. Encounter for examination fo r normal comparison and control in clinical research program 11/08/2018 12/10/2021 Overview: DO NOT DELETE - [facility] Study: Project # [id number], Mirror Fabrication Supervisor: Kevin Pearce, MS, MPH. SUMMARY: Goal: [...] contact study staff at ; after hours Mirror Fabrication Supervisor via the [facility] hospital whiteprinting machine operator . - Please contact study team before resolving/deleting from patients problem list. Study phone number: [phone]. Diagnosis changed due to Research Module. Go [...] is still waiting on Juzo stockings from [employer] [facility]. Called [facility] and spoke with Dilma - she reports they received the order but still need provider notes saying why she needs the compression stockings. Kwame Noble has the information in his note from 01/18/23. Can you please send this note to [employer] [facility]? Thank you! documented in this encounter Plan of Treatment Upcoming Encounters Date Type Department Care Team (Late st Contact Info) Description 04/14/2023 1:30 PM EST Imaging Vascular Lab, [facility] II 2nd Floor, [place] [address] [facility] [place] [address] 04/14/2023 3:00 PM EST Office Visit Cardiology, [facility] [address] [facility] [place] [address] Wood Wong PA-C [address] [facility] [address] 04/21/2023 1:00 PM EST Cardiac Studies Cardiology, [facility] [address] [facility] [place] [address] [place], Pacer Clinic [facility] 132 [facility] [place] [address] 04/22/2023 11:00 AM EST Office Visit Nephrology, [facility] [address] [place] [address] Luz Tobias MD [address] [place] [address] 04/25/2023 1:20 PM EST Office Visit Family [facility] [place] [address] [facility], [place] [phone] David Umanzor MD [address] [facility] [address] 05/04/2023 11:30 AM EST Home Visit isinger at [facility] [address] [facility] [address] Tatyana Delaney, RN [address] [place] [address] 05/26/2023 2:00 PM EST Laboratory Laboratory, [place] [address] [facility] [address] Abdelrahman [facility] [address] [place] [facility] [place] [address] 05/31/2023 1:30 PM EST Imaging Radiology [address] [facility] [address] 06/07/2023 1:20 PM EST Office Visit [facility] C[facility] [address] [facility] [phone] Vira Byrd, [address] [facility] [address] 08/01/2023 2:00 PM EDT Laboratory Laboratory, [place] [address] [facility] [phone] Abdelrahman [facility] [address] [facility] [address] 08/02/2023 2:00 PM EDT Office Visit Rheumatology [address] [place] [address] Eliot Castelan CRNP [address] [place] [address] 08/08/2023 12:30 PM EDT Office Visit Hematology/Oncology [facility] [address] [place] [address] Miguel A Alcantar MD [address] [place] [address] 03/07/2024 1:00 PM EST Office Visit Cardiology, [facility] [address] [place] [address] Manolo Millan MD [address] [...] Additional history exists CKD PHOS USE SMARTSET 05775 12/02/202311/10, 08/06/2022, 08/21/2021, Additional history exists CKD HGB USE SMARTSET 79366 03/25/202403/25, 03/25/2023, 02/28/2023, Additional history exists DXA [...] this encounter Medical Devices Implanted Type Area Sampler First Device Identifier Shelf Expiration Date Model / Serial / Lot NewComLink Embosphere Micrspheres Implanted:Qty: 2 on 11/02/2019 by Ish Grove MD at [facility] Right: Abdomen [employer] 05/11/2022 S220GH / S220GH / [id number] Syr Pf 2ml Embospheres 100-300 - [id number] Implanted:Qty: 1 on 11/14/2020 at [facility] [employer] [id number] 08/22/2023 S220GH / / [id number] Envelope Antibacterial Tyrx - [id number] Implanted:Qty: 1 on 12/29/2021 by Fatoumata Roland DO at [facility] [employer] : CRM [id number] 09/23/2022 CMR [id number] / / [id number] Stent Synergy Xd Mr 3.30w90vn - [id number] Implanted:Qty: 1 on 03/22/2022 by Katalina Pearce MD at [facility] [employer] [id number] 07/17/2023 [id number] / / [id number] Valve Berhane 3 Ultra 26mm - [id number] Implanted:Qty: 1 on 12/09/2022 by Manolo Millan MD at [facility] [employer] [id number] 12/04/2023 [id number] / / documented as of this encounter [...] the patient have Health Care Power of Ballpoint Pen Cartridge Tester? No Care Teams Tube Tester Relationship Specialty Start Date End Date David Umanzor MD [address] [place] [address] PCP - General 02/25/09 documented as of this encounter
--- OUTSIDE RECORDS SUMMARY | 2023-05-28 21:35 | External Medical Summary | Summary of Care ---
Author Name Unknown Organization [facility] Address [address] [place] [address] Phone [phone] Care Team Providers Care Turner In Name Role Phone David Umanzor MD Primary Care Provider [phone]- [phone] Reason for Visit * Reason Onset Date Comments Fax 03/24/2023 [facility] red/ glucose monitor Vane called from [facility]. Encounter Details Date Type Department Care Team (Late st Contact Info) Description 03/24/2023 Telephone [facility] [address] [place] [address] David Umanzor MD [address] [place] [address] Fax ([facility]/ glucose monitor ... Allergies Active Allergy Reactions Criticality Noted Date [...] daily 0 Active B-12 1500 MCG PO TBCRIndications:Pernicio us anemia one pill each day 90 Tab 3 0 Active BIOTENE MOISTURIZING MOUTH MT SOLNIndications:Dry mouth use four times daily 1 Bottle 1 2 Active Blood Glucose Monitoring Suppl (Leapforce AUTOCODE BLOOD GLUCOSE) w/Device KITIndications:DM type 2 [...] daily 400 Each 3 3 Active Creon 52602-49916 UNIT Oral Capsule Delayed Release Particles (Pancrelipase (Hoy-Lcta-Riec))Indicati ons:Pancreatic insufficiency TAKE ONE CAPSULE BY MOUTH [...] bedtime. 2 mL 5 3 Active Nystatin 855303 UNIT/GM External Powder (Nystop) APPLY TO AFFECTED AREAS UNDER THE BREASTS THREE TIMES PER DAY NEEDED 30 g 1 3 Active NovoLOG FlexPen 100 UNIT/ML Subcutaneous Solution Pen-injector (insulin aspart)Indications:Type 2 diabetes mellitus with hyperosmolarity without coma, without long-term current use of insulin ([facility]) Inject 10 units with breakfast, 4 units with lunch, and 10 units with PM meal. Inject 4 units if BG is >200. 30 mL 5 3 Active Acetaminophen 500 MG Oral TabletIndications:HFrEF (heart failure with reduced ejection fraction) ([facility]),Coronary artery disease involving kootenai coronary artery of kootenai heart without angina pectoris,Nonrheumatic aortic valve stenosis,Cardiac [...] mouth in the morning. 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 30 Tablet 0 3 03/30/20 23 Discontin ued(Refil l) documented as of this [...] to excess calories 0 08/09/2022 Atherosclerosis of kootenai ar jania of left lower extremity with intermittent claudication 08/09/2022 Coronary artery disease invo lving kootenai coronary artery of kootenai heart with angina pectoris 03/22/2022 Last Assessment [...] Overview: Diabetic retinopathy Rheumatoid arthritis of [facility] sites without rheumatoid factor 01/26/2016 [...] [facility] DETECT Study: Project # [id number], Draw Off Worker: Manny Santacruz, PhD. SUMMARY: Goal: Establish test [...] contact study staff at ; after hours Draw Off Worker via the [facility] hospital hole digger operator . Please contact study team before resolving/deleting from patients problem list. Study phone number: [phone]. Diagnosis changed due to Research Module. Go to Snapshot for study details. Encounter for examination fo r normal comparison and control in clinical research program 11/08/2018 12/10/2021 Overview: DO NOT DELETE - [facility] Study: Project # [id number], Draw Off Worker: Kevin Pearce MS, MPH. SUMMARY: Goal: Establish test characteristics [...] contact study staff at ; after hours Draw Off Worker via the [facility] hole digger operator . - Please contact study team before resolving/deleting from patients problem list. Study phone number: [phone]. Diagnosis changed due to Research Module. Go [...] encounter Miscellaneous Notes * Telephone Encounter - Ceci Soliman LPN - 04/07/2023 1:39 PM EST Called [facility]-they received the faxes. They will close the medical records request and get the sensors shipped out. [employer] is aware. * Telephone Encounter - Ceci Soliman LPN - 04/07/2023 12:51 PM EST Fax received-stating these need office notes and signed from 01/17/23. These were faxed. Will call and confirm. * Telephone Encounter - Ceci Soliman LPN - 04/07/2023 11:14 AM EST Attempted to call [facility]-on hold for 17 minutes and had to hang up. Will attempt later. * Telephone Encounter - Ceci Soliman LPN - 04/06/2023 3:30 PM EST Faxed to [facility]. Will f/u tomorrow as patient is out of sensors now. * Telephone Encounter - Nadeen Addison OSA - 04/05/2023 12:30 PM EST Patient states that [facility] has not received the information that is needed. Patient states that she needs to change her Dexcom sensor today and has no sensors. Patient would like to speak with and would like to be contacted at [phone]. * Telephone Encounter - Nallely Tompkins LPN - 04/01/2023 3:02 PM EST OV note from 09/28 printed & placed on desk for wet signature * Telephone Encounter - David Umanzor MD - 04/01/2023 2:38 PM EST Whatever is needed, please print and place on my desk for next day in office * Telephone Encounter - Papito Gonzales OSA - 03/31/2023 9:49 AM EST Vane called from [facility]. Osiris stated that she did receive the medical record request however it was signed electronically. This needs to be error ed out initialed and then provider needs to sign it and date it himeself. Can not accept electronic signature. Fax it back then to [phone] * Telephone Encounter - Lizz Arteaga LPN - 03/24/2023 3:48 PM EST OV notes faxed 03/24/2023 * Telephone Encounter - Dorothy Gonzalez OSA - 03/24/2023 9:32 AM EST Caller requesting the following information to be faxed: Name/Company of caller: [facility] Information requested to be faxed: most recent office note related to diabetes Fax number: [phone] Attention to Name/Company: Any additional information?: re: diabetic glucose monitor ordered 8. documented in this encounter Plan of Treatment Upcoming Encounters Date Type Department Care Team (Late st Contact Info) Description 04/13/2023 12:30 PM EST Home Visit [facility] [place], [facility] [address] [place] [address] Tatyana Delaney, RN [address] [place] [address] 04/14/2023 3:00 PM EST Office Visit Cardiology, [facility] [address] [facility] [address] Wood Wong PA-C [address] [place] [address] 04/21/2023 1:00 PM EST Cardiac Studies Cardiology, [facility] 132 [facility] [place] [address] Francisco [facility]er [facility] [address] [place] [address] 04/22/2023 11:00 AM EST Office Visit Nephrology, [facility] [address] [facility] [place], [place] [address] Luz Tobias MD [address] [place] [address] 04/25/2023 1:20 PM EST Office Visit [facility] [address] [facility] [phone] David Umanzor MD [address] [facility] [place] [id number] 05/26/2023 2:00 PM EST Laboratory Laboratory, [place] [address] [facility] [phone] [facility] [address] [place] [address] 05/31/2023 1:30 PM EST Imaging Radiology [facility] [facility] 132 [place] [address] 06/07/2023 1:20 PM EST Office Visit Sleep Disorders Ctr [facility] [address] [place] [phone] Vira Byrd, 132 [place] [address] 08/01/2023 2:00 PM EDT Laboratory Laboratory, [place] [address] [place] [phone] [facility] [address] [place] [address] 08/02/2023 2:00 PM EDT Office Visit Rheumatology [place] [address] [place] [address] Eliot Castelan CRNP [address] [place] [address] [place], [place] [address] 08/08/2023 12:30 PM EDT Office Visit Hematology/Oncology [facility] [address] [place] [address] Miguel A Alcantar MD [address] [facility] [place] [address] 03/07/2024 1:00 PM EST Office Visit Cardiology, [facility] 132 [place] [address] Manolo Millan MD [address] [place] [address] Scheduled Procedures Name Priority Associated Diagnoses [...] Additional history exists CKD PHOS USE SMARTSET 00537 12/02/202311/10, 08/06/2022, 08/21/2021, Additional history exists CKD HGB USE SMARTSET 68545 03/25/202403/25, 03/25/2023, 02/28/2023, Additional history exists DXA [...] this encounter Medical Devices Implanted Type Area Benefits Sales Consultant Device Identifier Shelf Expiration Date Model / Serial / Lot Liquid X Medical Embosphere Micrspheres Implanted:Qty: 2 on 11/02/2019 by Ish Grove MD at [facility] Right: Abdomen [employer] 05/11/2022 S220GH / S220GH / [id number] Syr Pf 2ml Embospheres 100-300 - [id number] Implanted:Qty: 1 on 11/14/2020 at [facility] [employer] [id number] 08/22/2023 S220GH / / [id number] Envelope Antibacterial Tyrx - [id number] Implanted:Qty: 1 on 12/29/2021 by Fatoumata Roland DO at OR [facility] [employer] : CRM [id number] 09/23/2022 CMR M6122 / / [id number] Stent Synergy Xd Mr 3.99i42fh - [id number] Implanted:Qty: 1 on 03/22/2022 by Katalina Pearce MD at [facility] [employer] [place] [id number] 07/17/2023 [id number] / / [id number] Valve Berhane 3 Ultra 26mm - [id number] Implanted:Qty: 1 on 12/09/2022 by Manolo Millan MD at [facility] [employer] [id number] 12/04/2023 [id number] / / documented as of this encounter [...] the patient have Health Care Power of Casket Trimmer? No Care Teams Turner In Relationship Specialty Start Date End Date David Umanzor MD [address] [place] [address] PCP - General 02/25/09 documented as of this encounter
--- OUTSIDE RECORDS SUMMARY | 2023-05-28 21:35 | External Medical Summary | Summary of Care ---
Author Name Unknown Organization [facility] Address [address] [facility] [address] Phone [phone] Care Team Providers Care Fundraiser Name Role Phone David Umanzor MD Primary Care Provider +1- [phone] Reason for Visit * Reason Onset Date Comments [facility]: Maintenance 04/07/2023 Encounter Details Date Type Department Care Team (Late st Contact Info) Description 04/07/2023 Telephone [facility], [facility] [address] [facility] [place] [address] [facility], Nurse [facility] 132 [place] [address] [facility]: Maintenance Allergies Active Allergy [...] Active Fluticasone Propionate 50 MCG/ACT Nasal Suspension (Flonase)Indications:Terrazzo Tile Setter sanket rhinitis ADMINISTER 2 SPRAYS IN [...] daily 400 Each 3 3 Active Creon 07644-88532 UNIT Oral Capsule Delayed Release Particles (Pancrelipase (Jwp-Yapx-Vmzr))Indicatio ns:Pancreatic insufficiency TAKE ONE CAPSULE BY MOUTH [...] bedtime. 2 mL 5 3 Active Nystatin 420788 UNIT/GM External Powder (Nystop) APPLY TO AFFECTED [...] 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 [...] HYDROcodone-Acetaminophen 5-325 MG Oral TabletIndications:Atheros clerosis of [place] artery of left lower extremity with [...] to excess calories 0 08/09/2022 Atherosclerosis of [place] ar jania of left lower extremity with intermittent claudication 08/09/2022 Coronary artery disease invo lving [place] coronary artery of [place] heart with angina pectoris 03/22/2022 Last [...] Diabetic retinopathy Rheumatoid arthritis of [facility] sites without rheumatoid factor 01/26/2016 Last [...] [facility] DETECT Study: Project # [id number], Dry Mill Worker: Manny Santacruz, PhD. SUMMARY: Goal: Establish [...] contact study staff at ; after hours Dry Mill Worker via the [facility] sorting grapple operator . Please contact study team before resolving/deleting from patients problem list. Study phone number: [phone]. Diagnosis changed due to Research Module. Go to Snapshot for study details. Encounter for examination fo r normal comparison and control in clinical research program 11/08/2018 12/10/2021 Overview: DO NOT DELETE - [facility] Study: Project # [id number], Dry Mill Worker: Kevin Pearce, MS, MPH. SUMMARY: Goal: Establish [...] contact study staff at ; after hours Dry Mill Worker via the [facility] hospital sorting grapple operator . - Please contact study team before resolving/deleting from patients problem list. Study phone number: [phone]. Diagnosis changed due to Research Module. Go [...] Encounter - Ceci Soliman LPN - 04/07/2023 1:41 PM EST Fax received at pcp office- Complete and signed office notes that were requested were faxed to them. Called home care delivered to confirm receipt, which was confirmed. They will close the record request and ship the sensors. Patient has been made aware. * Telephone Encounter - Fany Luis RN - 04/07/2023 10:03 AM EST PC to home care delivered to f/u on receipt of needed paperwork to send out dexcom sensors. Per reppaperwork has not been received yet Requested they fax paperwork to PCP office again PC to PCP office spoke with LAQUITA who is sending high priority message to PCP Patient has also been discharged from [facility] pharmacy for inability to contact per notes Patient states she was unable to be reached d/t hospitalizations/illness Please see 04/05/23 note for specifics Can we get new [facility] referral And we may need new order for dexcon G6 sensors from [facility] providers if needed paperwork from existing order can not be obtained Fany Luis RN, BSN [facility] machine repairerSchool Based Therapist documented in this encounter Plan of Treatment Upcoming Encounters Date Type Department Care Team (Late st Contact Info) Description 04/13/2023 12:30 PM EST Home Visit ising at [facility] [address] [place] [address] Tatyana Delaney, RN 132 [place] [address] 04/14/2023 3:00 PM EST Office Visit Cardiology, [facility] [address] [place] [address] Wood Wong PA-C [address] [place] [address] 04/21/2023 1:00 PM EST Cardiac Studies Cardiology, [facility] [address] [facility] [place] [address] [facility] 132 [facility] [place], [place] [address] 04/22/2023 11:00 AM EST Office Visit Nephrology, [facility] [address] [place], [place] [address] Luz Tobias MD [address] [place] [address] 04/25/2023 1:20 PM EST Office Visit Family Practice, [place] [address] [place] [phone] David Umanzor MD [address] [place] [address] 05/26/2023 2:00 PM EST Laboratory Laboratory, [place] [address] [place] [address] [facility] [address], [place] [address] 05/31/2023 1:30 PM EST Imaging Radiology [facility] 1st [facility] [address] 06/07/2023 1:20 PM EST Office Visit Sleep Disorders Ctr [facility] 132 PsychiatricJE[place] [phone] Vira Byrd DO 132 [facility] [place] [address] 08/01/2023 2:00 PM EDT Laboratory Laboratory, [place] [address] [place] [address] [phone] [place], Laboratory [address] [place] [address] 08/02/2023 2:00 PM EDT Office Visit Rheumatology [facility] [address] [facility] [address] Eliot Castelan CRNP [address] [facility] [place], [place] [address] 08/08/2023 12:30 PM EDT Office Visit Hematology/Oncology [facility] [address] [place], [place] [address] Miguel A Alcantar MD [address] [place], [place] [address] 03/07/2024 1:00 PM EST Office Visit Cardiology, [facility] [address] [place], [place] [phone] Manolo Millan MD [address] [place] [address] Scheduled Procedures Name Priority Associated [...] 02/12/2022, Additional history exists TSH 04/13/2023 04/13/2022, 0205/2021, 06/02/2020, Additional history exists Diabetic Eye Exam 05/27/2023 05/27/2022, , 05/27/2022, Additional history exists Mammogram 07/28/2023 07/27/2022, 07/10, 01/09/2019, Additional history exists Albumin/Creatinine Ratio 09/08/2023 023, 08/06/2022, 05/13/2021, Additional history exists GFR 09/23/2023 03/24/2023, 02/10, 02/17/2023, Additional history exists CKD PHOS USE SMARTSET 46872 12/02/202311/10, 08/06/2022, 08/21/2021, Additional history exists CKD HGB USE SMARTSET 33641 03/25/202403/25, 03/25/2023, 02/28/2023, Additional history exists DXA [...] this encounter Medical Devices Implanted Type Area Guard Sergeant Device Identifier Shelf Expiration Date Model / Serial / Lot [employer] Embosphere Micrspheres Implanted:Qty: 2 on 11/02/2019 by Ish Grove MD at [facility] Right: Abdomen [employer] 05/11/2022 S220GH / S220GH / [id number] Syr Pf 2ml Embospheres 100-300 - [id number] Implanted:Qty: 1 on 11/14/2020 at [facility] [employer] [id number] 08/22/2023 S220GH / / [id number] Envelope Antibacterial Tyrx - [id number] Implanted:Qty: 1 on 12/29/2021 by Fatoumata Roland DO at [facility] [employer] : CRM [id number] 09/23/2022 CMR [id number] / / [id number] Stent Synergy Xd Mr 3.86b96co - [id number] Implanted:Qty: 1 on 03/22/2022 by Katalina Pearce MD at [facility] [employer] [id number] 07/17/2023 [id number] / / [id number] Valve Berhane 3 Ultra 26mm - [id number] Implanted:Qty: 1 on 12/09/2022 by Manolo Millan MD at [facility] [employer] [id number] 12/04/2023 [id number] / / documented as of this encounter [...] the patient have Health Care Power of Flanging Machine Operator? No Care Teams Fundraiser Relationship Specialty Start Date End Date David Umanzor MD [address] [place] [address] PCP - General 02/25/09 documented as of this encounter
--- OUTSIDE RECORDS SUMMARY | 2023-05-28 21:35 | External Medical Summary | Summary of Care ---
Author Name Unknown Organization [facility] Address [address] [place] [address] Phone [phone] Care Team Providers Care Professional Architect Name Role Phone David Umanzor MD Primary Care Provider +1- [phone] Reason for Visit * Reason Onset Date Comments Fax 03/24/2023 [facility] red/ glucose monitor Vane called from Home Care Delivered. Encounter Details Date Type Department Care Team (Late st Contact Info) Description 03/24/2023 Telephone [facility] [address] [place] [address] David Umanzor MD [address] [place] [address] Fax (Home Care Delivered/ glucose [...] 1 2 Active Blood Glucose Monitoring Suppl (Edgeio AUTOCODE BLOOD GLUCOSE) w/Device KITIndications:DM type 2 [...] daily 400 Each 3 3 Active Creon 19316-01143 UNIT Oral Capsule Delayed Release Particles (Pancrelipase (Udi-Peqj-Rbgn))Indicati ons:Pancreatic insufficiency TAKE ONE CAPSULE BY MOUTH [...] bedtime. 2 mL 5 3 Active Nystatin 582283 UNIT/GM External Powder (Nystop) APPLY TO AFFECTED [...] [facility]),Coronary artery disease involving [place] coronary artery of [place] heart without angina pectoris,Nonrheumatic aortic valve stenosis,Cardiac [...] n 5-325 MG Oral TabletIndications:Athero sclerosis of [place] artery of left lower extremity with intermittent [...] to excess calories 0 08/09/2022 Atherosclerosis of [place] ar jania of left lower extremity with intermittent claudication 08/09/2022 Coronary artery disease invo lving [place] coronary artery of [place] heart with angina pectoris 03/22/2022 Last Assessment [...] [facility] DETECT Study: Project # [id number], Quality Improvement Manager: Manny Santacruz, PhD. SUMMARY: Goal: Establish [...] contact study staff at ; after hours Quality Improvement Manager via the [facility] hospital zig zag spring machine operator . Please contact study team before resolving/deleting from patients problem list. Study phone number: [phone]. Diagnosis changed due to Research Module. Go to Snapshot for study details. Encounter for examination fo r normal comparison and control in clinical research program 11/08/2018 12/10/2021 Overview: DO NOT DELETE - [facility] Study: Project # [id number], Quality Improvement Manager: Kevin Pearce MS, MPH. SUMMARY: Goal: Establish [...] contact study staff at ; after hours Quality Improvement Manager via the [facility] zig zag spring machine operator . - Please contact study team before resolving/deleting from patients problem list. Study phone number: [phone]. Diagnosis changed due to Research Module. Go [...] and would like to be contacted at [phone]. * Telephone Encounter - Nallely Tompkins LPN [...] electronic signature. Fax it back then to [phone] * Telephone Encounter - Lizz Arteaga LPN - 03/24/2023 3:48 PM EST OV notes faxed 03/24/2023 * Telephone Encounter - Dorothy Gonzalez OSA - 03/24/2023 9:32 AM EST Caller requesting the following information to be faxed: Name/Company of caller: [employer] Information requested to be faxed: most recent office note related to diabetes Fax number: [phone] Attention to Name/Company: Any additional information?: re: diabetic glucose monitor ordered 8.16.23 documented in this encounter Plan of Treatment Upcoming Encounters Date Type Department Care Team (Late st Contact Info) Description 04/13/2023 12:30 PM EST Home Visit isinger at [facility] [address] [place] [address] Tatyana Delaney, RN 132 [place] [address] 04/14/2023 3:00 PM EST Office Visit Cardiology, [facility] [address] [place] [address] [address] Wood Wong PA-C 132 [place] [address] 04/21/2023 1:00 PM EST Cardiac Studies Cardiology, [facility] 132 [facility] [address] [facility] 132 [facility] [address] 04/22/2023 11:00 AM EST Office Visit Nephrology, [facility] [address] [place], [place] [address] Luz Tobias MD [address] [place] [address] 04/25/2023 1:20 PM EST Office Visit Family [facility], [place] [address] [place] [address] David Umanzor MD [address] [place] [address] 05/26/2023 2:00 PM EST Laboratory Laboratory, [place] [address] [place] [address] [place] [facility] [address] [place] [address] 05/31/2023 1:30 PM EST Imaging Radiology [facility] 1st [facility] 132 [facility] [address] 06/07/2023 1:20 PM EST Office Visit [facility] Disorders Ctr [facility] 132 [facility] [phone] Vira Byrd, 132 [facility] [place] [address] 08/01/2023 2:00 PM EDT Laboratory Laboratory, [place] [address] [place] [phone] [place], Laboratory [address] [place] [facility] [address] 08/02/2023 2:00 PM EDT Office Visit Rheumatology [facility] [address] [place] [address] Eliot Castelan CRNP [address] [facility] [place], [place] [address] 08/08/2023 12:30 PM EDT Office Visit Hematology/Oncology [facility] 200 [facility] [place] [address] Miguel A Alcantar MD [address] [place] [address] 03/07/2024 1:00 PM EST Office Visit Cardiology, [facility] [address] [place] [address] Manolo Millan MD [address] [place], [place] [address] Scheduled Procedures Name Priority Associated Diagnoses Date/Ti [...] Additional history exists CKD PHOS USE SMARTSET 56068 12/02/202311/10, 08/06/2022, 08/21/2021, Additional history exists CKD HGB USE SMARTSET 03032 03/25/202403/25, 03/25/2023, 02/28/2023, Additional history exists DXA [...] this encounter Medical Devices Implanted Type Area Gum Dipper Device Identifier Shelf Expiration Date Model / Serial / Lot Merit Medical Embosphere Micrspheres Implanted:Qty: 2 on 11/02/2019 by Ish Grove MD at [facility] Right: Abdomen [employer] 05/11/2022 S220GH / S220GH / [id number] Syr Pf 2ml Embospheres 100-300 - [id number] Implanted:Qty: 1 on 11/14/2020 at [facility] [employer] [id number] 08/22/2023 S220GH / / [id number] Envelope Antibacterial Tyrx - [id number] Implanted:Qty: 1 on 12/29/2021 by Fatoumata Roland DO at [facility] [employer] : CRM [id number] 09/23/2022 CMR M6122 / / [id number] Stent Synergy Xd Mr 3.30p92ue - [id number] Implanted:Qty: 1 on 03/22/2022 by Katalina Pearce MD at [facility] [employer] [id number] 07/17/2023 [id number] / / [id number] Valve Berhane 3 Ultra 26mm - [id number] Implanted:Qty: 1 on 12/09/2022 by Manolo Millan MD at [facility] [employer] [id number] 12/04/2023 [id number] / / documented as of this encounter [...] patient have Health Care Power of Medical Imaging Technologist? No Care Teams Professional Architect Relationship Specialty Start Date End Date David Umanzor MD [address] [place] [address] PCP - General 02/25/09 documented as of this encounter
--- OUTSIDE RECORDS SUMMARY | 2023-05-28 21:35 | External Medical Summary | Summary of Care ---
Author Name Unknown Organization [facility] Address [address] [facility] [place] [address] Phone [phone] Care Team Providers Care Facilities Administrator Name Role Phone David Umanzor MD Primary Care Provider +1- [phone] Reason for Visit * Reason Onset Date Comments [facility]: Maintenance 04/07/2023 Encounter Details Date Type Department Care Team (Late st Contact Info) Description 04/07/2023 Telephone [facility], [facility] [address] [facility] [place] [address] [facility], Nurse [facility] [address] [facility] [place] [address] [facility]: Maintenance Allergies Active Allergy [...] 1 2 Active Blood Glucose Monitoring Suppl ([employer]ukoto[employer] AUTOCODE BLOOD GLUCOSE) w/Device KITIndications:DM type 2 [...] Active Fluticasone Propionate 50 MCG/ACT Nasal Suspension (Flonase)Indications:Antisqueak Worker sanket rhinitis ADMINISTER 2 SPRAYS IN [...] daily 400 Each 3 3 Active Creon 87869-46005 UNIT Oral Capsule Delayed Release Particles (Pancrelipase (Fly-Piak-Pnsu))Indicatio ns:Pancreatic insufficiency TAKE ONE CAPSULE BY MOUTH [...] bedtime. 2 mL 5 3 Active Nystatin 580011 UNIT/GM External Powder (Nystop) APPLY TO AFFECTED AREAS UNDER THE BREASTS THREE TIMES PER DAY NEEDED 30 g 1 3 Active NovoLOG FlexPen 100 UNIT/ML Subcutaneous Solution Pen-injector (insulin aspart)Indications:Type 2 diabetes mellitus with hyperosmolarity without coma, without long-term current use of insulin ([facility]) Inject 10 units with breakfast, 4 units with lunch, and 10 units with PM meal. Inject 4 units if BG is >200. 30 mL 5 3 Active Acetaminophen 500 MG Oral TabletIndications:HFrEF (heart failure with reduced ejection fraction) ([facility]),Coronary artery disease involving [place] coronary artery of [place] heart without angina pectoris,Nonrheumatic aortic valve stenosis,Cardiac [...] Active Gabapentin 300 MG Oral Capsule (Neurontin)Indications:Ac [place] on chronic combined systolic and diastolic congestive [...] HYDROcodone-Acetaminophen 5-325 MG Oral TabletIndications:Atheros clerosis of [place] artery of left lower extremity with intermittent [...] to excess calories 0 08/09/2022 Atherosclerosis of [place] ar jania of left lower extremity with intermittent claudication 08/09/2022 Coronary artery disease invo lving [place] coronary artery of [place] heart with angina pectoris 03/22/2022 Last Assessment [...] Diabetic retinopathy Rheumatoid arthritis of [facility] sites without rheumatoid factor 01/26/2016 Last [...] [facility] DETECT Study: Project # [id number], Engineering Aid: Manny Santacruz, PhD. SUMMARY: Goal: Establish test [...] contact study staff at ; after hours Engineering Aid via the [facility] coin wrapping machine operator . Please contact study team before resolving/deleting from patients problem list. Study phone number: [phone]. Diagnosis changed due to Research Module. Go to Snapshot for study details. Encounter for examination fo r normal comparison and control in clinical research program 11/08/2018 12/10/2021 Overview: DO NOT DELETE - [facility] Study: Project # [id number], Engineering Aid: Kevin Pearce, MS, MPH. SUMMARY: Goal: Establish [...] contact study staff at ; after hours Engineering Aid via the [facility] coin wrapping machine operator . - Please contact study team before resolving/deleting from patients problem list. Study phone number: [phone]. Diagnosis changed due to Research Module. Go [...] - 04/07/2023 1:34 PM EST Call from [facility] stating they received a fax from [facility] for pt They are unable to except referral Will forward to [facility] scheduling poll to make aware documented in this encounter Plan of Treatment Upcoming Encounters Date Type Department Care Team (Late st Contact Info) Description 04/13/2023 12:30 PM EST Home Visit isinger at [facility] [address] [place] [address] Tatyana Delaney RN [address] [place] [address] 04/14/2023 3:00 PM EST Office Visit Cardiology, [facility] [address] [place] [address] Wood Wong PA-C [address] [place] [address] 04/21/2023 1:00 PM EST Cardiac Studies Cardiology, [facility] [place] [address] [facility], Pacer Clinic [facility] [address] [place] [place] [address] 04/22/2023 11:00 AM EST Office Visit Nephrology, [facility] 200 [facility] [place] [address] Luz Tobias MD [address] [facility] [place] [address] 04/25/2023 1:20 PM EST Office Visit [facility] [address] [place] [facility] [place] [address] David Umanzor MD [address] [facility] [place] [phone] 05/26/2023 2:00 PM EST Laboratory Laboratory, [place] [address] [place] [address] [place], [facility] [address] [place] [address] 05/31/2023 1:30 PM EST Imaging Radiology [facility] 1st [facility], [place] 132 [place] [address] 06/07/2023 1:20 PM EST Office Visit [facility] [phone] Vira Byrd, 132 [facility] [address] 08/01/2023 2:00 PM EDT Laboratory Laboratory, [place] [address] [place] [address] [facility] [address] [place] [address] 08/02/2023 2:00 PM EDT Office Visit Rheumatology [address] [place] [address] Eliot Castelan CRNP [address] [place] [address] [place] [address] 08/08/2023 12:30 PM EDT Office Visit Hematology/Oncology [facility] [place] [address] [place] [address] Miguel A Alcantar MD [address] [place] [address] 03/07/2024 1:00 PM EST Office Visit Cardiology, [facility] [address] [address] Manolo Millan MD [address] [facility] [place] [address] Scheduled Procedures [...] Additional history exists CKD PHOS USE SMARTSET 44478 12/02/202311/10, 08/06/2022, 08/21/2021, Additional history exists CKD HGB USE SMARTSET 58225 03/25/202403/25, 03/25/2023, 02/28/2023, Additional history exists DXA [...] this encounter Medical Devices Implanted Type Area Kitchen Work Supervisor Device Identifier Shelf Expiration Date Model / Serial / Lot B [employer] Medical Embosphere Micrspheres Implanted:Qty: 2 on 11/02/2019 by Ish Grove MD at [facility] Right: Abdomen [employer] 05/11/2022 S220GH / S220GH / [id number] Syr Pf 2ml Embospheres 100-300 - [id number] Implanted:Qty: 1 on 11/14/2020 at [facility] [employer] [id number] 08/22/2023 S220GH / / [id number] Envelope Antibacterial Tyrx - [id number] Implanted:Qty: 1 on 12/29/2021 by Fatoumata Roland DO at OR [facility] [employer] : CRM [id number] 09/23/2022 CMR M6122 / / [id number] Stent Synergy Xd Mr 3.41y38mj - [id number] Implanted:Qty: 1 on 03/22/2022 by Katalina Pearce MD at [facility] [employer] [id number] 07/17/2023 [id number] / / [id number] Valve Berhane 3 Ultra 26mm - [id number] Implanted:Qty: 1 on 12/09/2022 by Manolo Millan MD at [facility] [employer] [id number] 12/04/2023 [id number] / / documented as of this encounter [...] the patient have Health Care Power of Hardness Inspector? No Care Teams Facilities Administrator Relationship Specialty Start Date End Date David Umanzor MD [address] [place] [address] PCP - General 02/25/09 documented as of this encounter
--- OUTSIDE RECORDS SUMMARY | 2023-05-28 21:35 | External Medical Summary | Summary of Care ---
Author Name Unknown Organization [facility] Address [address] [place] [address] Phone [phone] Care Team Providers Care Hogshead Stripper Name Role Phone David Umanzor MD Primary Care Provider [phone]- [phone] Reason for Visit * Reason Onset Date Comments Fax 03/24/2023 [facility] red/ glucose monitor Vane called from [facility]. Encounter Details Date Type Department Care Team (Late st Contact Info) Description 03/24/2023 Telephone [facility] [address] [place] [address] David Umanzor MD [address] [place] [address] Fax (Home Care Delivered/ glucose [...] 1 2 Active Blood Glucose Monitoring Suppl (Rayn AUTOCODE BLOOD GLUCOSE) w/Device KITIndications:DM type 2 causing neurological disease, not at goal ([facility]) Test blood sugar 4 times daily Dx: E11.9 1 Kit 0 9 Active PRODIGY LANCETS 28G MISCIndications:DM type 2, not at goal ([facility]) TEST BLOOD SUAGER 4 TIMES A [...] A1c goal of less than 7.0% ([facility]),Type 2 diabetes mellitus with stage 3 chronic kidney disease, with long-term current use of insulin, unspecified whether stage 3a or 3b CKD ([facility]),DM type 2 causing neurological disease, not at goal ([facility]) TEST BLOOD SUGAR UP TO FOUR [...] daily 400 Each 3 3 Active Creon 80004-27282 UNIT Oral Capsule Delayed Release Particles (Pancrelipase (Kvp-Rwgx-Ufur))Indicati ons:Pancreatic insufficiency TAKE ONE CAPSULE BY MOUTH [...] bedtime. 2 mL 5 3 Active Nystatin 237908 UNIT/GM External Powder (Nystop) APPLY TO AFFECTED AREAS UNDER THE BREASTS THREE TIMES PER DAY NEEDED 30 g 1 3 Active NovoLOG FlexPen 100 UNIT/ML Subcutaneous Solution Pen-injector (insulin aspart)Indications:Type 2 diabetes mellitus with hyperosmolarity without coma, without long-term current use of insulin ([facility]) Inject 10 units with breakfast, 4 units with lunch, and 10 units with PM meal. Inject 4 units if BG is >200. 30 mL 5 3 Active Acetaminophen 500 MG Oral TabletIndications:HFrEF (heart failure with reduced ejection fraction) ([facility]),Coronary artery disease involving three affiliated coronary artery of three affiliated heart without angina pectoris,Nonrheumatic aortic valve stenosis,Cardiac pacemaker in situ,Tachy-wilfrido syndrome ([facility]) Take 1 Tablet by mouth at [...] without long-term current use of insulin ([facility]) Inject 30 units daily 45 mL [...] systolic and diastolic congestive heart failure ([facility]) Take 1 Capsule by mouth in [...] n 5-325 MG Oral TabletIndications:Athero sclerosis of three affiliated artery of left lower extremity with intermittent [...] to excess calories 0 08/09/2022 Atherosclerosis of three affiliated ar jania of left lower extremity with intermittent claudication 08/09/2022 Coronary artery disease invo lving three affiliated coronary artery of three affiliated heart with angina pectoris 03/22/2022 Last Assessment [...] 12/21/2016 Overview: Diabetic retinopathy Rheumatoid arthritis of [facility] [place] sites without rheumatoid factor 01/26/2016 Last Assessment [...] [facility] DETECT Study: Project # [id number], Port Patrol Officer: Manny Santacruz, PhD. SUMMARY: Goal: Establish [...] contact study staff at ; after hours Port Patrol Officer via the [facility] hospital winding rack operator . Please contact study team before resolving/deleting from patients problem list. Study phone number: [phone]. Diagnosis changed due to Research Module. Go to Snapshot for study details. Encounter for examination fo r normal comparison and control in clinical research program 11/08/2018 12/10/2021 Overview: DO NOT DELETE - [facility] Study: Project # [id number], Port Patrol Officer: Kevin Pearce MS, MPH. SUMMARY: Goal: Establish [...] contact study staff at ; after hours Port Patrol Officer via the [facility] winding rack operator . - Please contact study team before resolving/deleting from patients problem list. Study phone number: [phone]. Diagnosis changed due to Research Module. Go [...] and would like to be contacted at [phone]. * Telephone Encounter - Nallely Tompkins LPN [...] electronic signature. Fax it back then to [phone] * Telephone Encounter - Lizz Arteaga LPN - 03/24/2023 3:48 PM EST OV notes faxed 03/24/2023 * Telephone Encounter - Dorothy Gonzalez OSA - 03/24/2023 9:32 AM EST Caller requesting the following information to be faxed: Name/Company of caller: [facility] Information requested to be faxed: most recent office note related to diabetes Fax number: [phone] Attention to Name/Company: Any additional information?: re: diabetic glucose monitor ordered 8.16.23 documented in this encounter Plan of Treatment Upcoming Encounters Date Type Department Care Team (Late st Contact Info) Description 04/13/2023 12:30 PM EST Home Visit isinger at [facility] [address] [facility] [place] [address] Tatyana Delaney RN [address] [place] [address] 04/14/2023 3:00 PM EST Office Visit Cardiology, [facility] 132 [facility] [place] [address] Wood Wong PA-C 132 [facility] [place] [address] 04/21/2023 1:00 PM EST Cardiac Studies Cardiology, [facility] [address] [facility] [address] 04/22/2023 11:00 AM EST Office Visit Nephrology, [facility] [address] [place] [address] Luz Tobias MD 200 [facility] [place] [address] 04/25/2023 1:20 PM EST Office Visit Family Practice, [place] [address] [place] [phone] David Umanzor MD [address] [place] [address] 05/26/2023 2:00 PM EST Laboratory Laboratory, [place] [address] [place] [phone] [facility] [address] [place] [address] 05/31/2023 1:30 PM EST Imaging Radiology [facility] [address]st [address] [address] 06/07/2023 1:20 PM EST Office Visit Sleep Disorders Ctr [address] [place] [phone] Vira Byrd, DO [facility] [place] [address] 08/01/2023 2:00 PM EDT Laboratory Laboratory, [place] [address] [place] [phone] [place] [address] [place] [address] 08/02/2023 2:00 PM EDT Office Visit Rheumatology [facility] [address] [facility] [place] [address] Eliot Castelan CRNP [address] [facility] [place] [address] 08/08/2023 12:30 PM EDT Office Visit Hematology/Oncology [facility] [address] [place] [address] Miguel A Alcantar MD [address] [place] [address] 03/07/2024 1:00 PM EST Office Visit Cardiology, [facility] [address] [facility] [address] Manolo Millan MD [address] [place] [address] Scheduled Procedures Name Priority Associated [...] Additional history exists CKD PHOS USE SMARTSET 55918 12/02/202311/10, 08/06/2022, 08/21/2021, Additional history exists CKD HGB USE SMARTSET 79435 03/25/202403/25, 03/25/2023, 02/28/2023, Additional history exists DXA [...] this encounter Medical Devices Implanted Type Area Tilting Saw Operator Device Identifier Shelf Expiration Date Model / Serial / Lot [employer] Medical Embosphere Micrspheres Implanted:Qty: 2 on 11/02/2019 by Ish Grove MD at [facility] [address] Right: Abdomen [employer] 05/11/2022 S220GH / S220GH / [id number] Syr Pf 2ml Embospheres 100-300 - [id number] Implanted:Qty: 1 on 11/14/2020 at [facility] [employer] [id number] 08/22/2023 S220GH / / [id number] Envelope Antibacterial Tyrx - [id number] Implanted:Qty: 1 on 12/29/2021 by Fatoumata Roland DO at [facility] [employer] : CRM [id number] 09/23/2022 CMR [id number] / / [id number] Stent Synergy Xd Mr 3.74a72ho - [id number] Implanted:Qty: 1 on 03/22/2022 by Katalina Pearce MD at [facility] [employer] [id number] 07/17/2023 [id number] / / [id number] Valve Berhane 3 Ultra 26mm - [id number] Implanted:Qty: 1 on 12/09/2022 by Manolo Millan MD at [facility] [employer] [id number] 12/04/2023 [id number] / / documented as of this encounter [...] the patient have Health Care Power of Branch Service Leader? No Care Teams Hogshead Stripper Relationship Specialty Start Date End Date David Umanzor MD [address] [place] [address] PCP - General 02/25/09 documented as of this encounter
--- OUTSIDE RECORDS SUMMARY | 2023-05-28 21:35 | External Medical Summary | Summary of Care ---
Author Name Unknown Organization [facility] Address [address] [place] [address] Phone [phone] Care Team Providers Care Pipeline Operator Name Role Phone David Umanzor MD Primary Care Provider +1- [phone] Reason for Visit * Reason Onset Date Comments [facility]: Maintenance 04/07/2023 Encounter Details Date Type Department Care Team (Late st Contact Info) Description 04/07/2023 Telephone [facility], [facility] 132 [facility] [place] [address] [facility], Nurse [facility] 132 [place] [address] [facility]: Maintenance Allergies Active Allergy [...] Active Fluticasone Propionate 50 MCG/ACT Nasal Suspension (Flonase)Indications:Dowel Inserting Machine Operator sanket rhinitis ADMINISTER 2 SPRAYS [...] daily 400 Each 3 3 Active Creon 52156-96233 UNIT Oral Capsule Delayed Release Particles (Pancrelipase (Apd-Fivc-Ooch))Indicatio ns:Pancreatic insufficiency TAKE ONE CAPSULE BY MOUTH [...] bedtime. 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 SUMMARY: Goal: Establish test [...] contact study staff at ; after hours Line Patroller via the [facility] lithographic camera operator . Please contact study team before resolving/deleting from patients problem list. Study phone number: [phone]. Diagnosis changed due to Research Module. Go to Snapshot for study details. Encounter for examination fo r normal comparison and control in clinical research program 11/08/2018 12/10/2021 Overview: DO NOT DELETE - [facility] Study: Project # [id number], Line Patroller: Kevin Pearce, MS, MPH. SUMMARY: Goal: Establish [...] contact study staff at ; after hours Line Patroller via the [facility] hospital lithographic camera operator . - Please contact study team before resolving/deleting from patients problem list. Study phone number: [phone]. Diagnosis changed due to Research Module. Go [...] PCP Patient has also been discharged from [facility] pharmacy for inability to contact per notes Patient states she was unable to be reached d/t hospitalizations/illness Please see 04/05/23 note for specifics Can we get new [facility] referral And we may need new order for dexcon G6 sensors from [facility] providers if needed paperwork from existing order can not be obtained Fany Luis RN, BSN [facility] agricultural commodities inspectorAccess Assoc documented in this encounter Plan of Treatment Upcoming Encounters Date Type Department Care Team (Late st Contact Info) Description 04/13/2023 12:30 PM EST [facility] Visit [facility] [address] [place] [address] Tatyana Delaney RN [address] [place] [address] 04/14/2023 3:00 PM EST Office Visit Cardiology, [facility] [address] [place] [address] Wood Wong, PAMirandaC [address] [place] [address] 04/21/2023 1:00 PM EST Cardiac Studies Cardiology, [facility] [address] [place] [address] [facility] [address] [place] [address] 04/22/2023 11:00 AM EST Office Visit Nephrology, [address] [place] [address] Luz Tobias MD [address] [place], [place] [address] 04/25/2023 1:20 PM EST Office Visit Family [facility] [place] [address] [place] [place] [address] David Umanzor MD [address] [place] [address] 05/26/2023 2:00 PM EST Laboratory Laboratory, [place] [address] [place] [address] [facility] [address] [place] [address] 05/31/2023 1:30 PM EST Imaging Radiology [address] [place] [address] 06/07/2023 1:20 PM EST Office Visit Sleep Disorders Ctr [facility] 132 [facility] [place] [phone] Vira Byrd, 132 [place] [address] 08/01/2023 2:00 PM EDT Laboratory Laboratory, [place] [address] [place] [address] [facility] [address] [place] [address] 08/02/2023 2:00 PM EDT Office Visit Rheumatology [place] [address] [facility] [place], [place] [address] Eliot Castelan CRNP [facility] [place] [address] 08/08/2023 12:30 PM EDT Office Visit Hematology/Oncology [facility] 200 [facility] [place], [place] [address] Miguel A Alcantar MD 200 [facility] [place] [address] 03/07/2024 1:00 PM EST Office Visit Cardiology, [facility] 132 [facility] [place] [address] Manolo Millan MD [address] [place] [address] Scheduled Procedures Name Priority Associated Diagnoses [...] Additional history exists CKD PHOS USE SMARTSET 57670 12/02/202311/10, 08/06/2022, 08/21/2021, Additional history exists CKD HGB USE SMARTSET 66817 03/25/202403/25, 03/25/2023, 02/28/2023, Additional history exists DXA [...] this encounter Medical Devices Implanted Type Area Flight Hostess Device Identifier Shelf Expiration Date Model / Serial / Lot One-Song Medical Embosphere Micrspheres Implanted:Qty: 2 on 11/02/2019 by Ish Grove MD at [facility] Right: Abdomen [employer] 05/11/2022 S220GH / S220GH / [id number] Syr Pf 2ml Embospheres 100-300 - [id number] Implanted:Qty: 1 on 11/14/2020 at [facility] [employer] [id number] 08/22/2023 S220GH / / [id number] Envelope Antibacterial Tyrx - [id number] Implanted:Qty: 1 on 12/29/2021 by Fatoumata Roland DO at [facility] [employer] : CRM [id number] 09/23/2022 CMR M6122 / / [id number] Stent Synergy Xd Mr 3.95i85zm - [id number] Implanted:Qty: 1 on 03/22/2022 by Katalian Pearce MD at [facility] [employer] [id number] 07/17/2023 [id number] / / [id number] Valve Berhane 3 Ultra 26mm - [id number] Implanted:Qty: 1 on 12/09/2022 by Manolo Millan MD at [facility] [employer] [id number] 12/04/2023 [id number] / / documented as of this encounter [...] the patient have Health Care Power of Sweet Goods Machine Operator? No Care Teams Pipeline Operator Relationship Specialty Start Date End Date David Umanzor MD [address] [place] [address] PCP - General 02/25/09 documented as of this encounter
--- OUTSIDE RECORDS SUMMARY | 2023-05-28 21:35 | External Medical Summary | Summary of Care ---
Author Name Unknown Organization [facility] Address [address] [place] [address] Phone [phone] Care Team Providers Care Bioinformatics Specialist Name Role Phone David Umanzor MD Primary Care Provider +1- [phone] Reason for Visit * Reason Onset Date Comments Advice 04/05/2023 Encounter Details Date Type Department Care Team (Late st Contact Info) Description 04/05/2023 Telephone [facility] [address] [place] [address] David Umanzor MD [address] [place] [address] Advice Allergies Active Allergy Reactions [...] Active Fluticasone Propionate 50 MCG/ACT Nasal Suspension (Flonase)Indications:Dining Car Steward sanket rhinitis ADMINISTER 2 SPRAYS IN EACH [...] daily 400 Each 3 3 Active Creon 73401-73219 UNIT Oral Capsule Delayed Release Particles (Pancrelipase (Ujb-Aebb-Xwns))Indicatio ns:Pancreatic insufficiency TAKE ONE CAPSULE BY MOUTH [...] bedtime. 2 mL 5 3 Active Nystatin 895004 UNIT/GM External Powder (Nystop) APPLY TO AFFECTED [...] ([facility]),Coronary artery disease involving eagle coronary artery of eagle heart without angina pectoris,Nonrheumatic aortic valve stenosis,Cardiac [...] Active Gabapentin 300 MG Oral Capsule (Neurontin)Indications:Ac [place] on chronic combined systolic and diastolic congestive heart failure ([facility]) Take 1 Capsule by mouth [...] HYDROcodone-Acetaminophen 5-325 MG Oral TabletIndications:Atheros clerosis of eagle artery of left lower extremity with intermittent [...] to excess calories 0 08/09/2022 Atherosclerosis of eagle ar jania of left lower extremity with intermittent claudication 08/09/2022 Coronary artery disease invo lving eagle coronary artery of eagle heart with angina pectoris 03/22/2022 Last Assessment [...] DELETE [facility] DETECT Study: Project # [id number], Tavern Keeper: Manny Santacruz, PhD. SUMMARY: Goal: Establish test [...] contact study staff at ; after hours Tavern Keeper via the [facility] transcribing machine operator . Please contact study team before resolving/deleting from patients problem list. Study phone number: [phone]. Diagnosis changed due to Research Module. Go to Snapshot for study details. Encounter for examination fo r normal comparison and control in clinical research program 11/08/2018 12/10/2021 Overview: DO NOT DELETE - [facility] Study: Project # [id number], Tavern Keeper: Kevin Pearce, MS, MPH. SUMMARY: Goal: Establish [...] contact study staff at ; after hours Tavern Keeper via the [facility] hospital transcribing machine operator . - Please contact study team before resolving/deleting from patients problem list. Study phone number: [phone]. Diagnosis changed due to Research Module. Go [...] encounter Miscellaneous Notes * Telephone Encounter - Fozia Montanez OSA - 04/06/2023 4:38 PM EST Faxed to [facility]. 04/06/2023 * Telephone Encounter - Ina Melgar OSA - 04/06/2023 4:33 PM EST Avani from [facility] called to state that they have to decline due to staffing issues and she will not receive the proper care. * Telephone Encounter - Fozia Montanez OSA - 04/06/2023 2:59 PM EST [facility] 04/06/2023 * Telephone Encounter - Jo-Ann Schwartz OSA - 04/06/2023 10:16 AM EST Spoke with Nori from [facility] and she received another referral from office again today Nori is just calling back to make office aware they are unable to provide home health services forthe patient due to their high volume of patients in the area * Telephone Encounter - Rosy Ferrer OSA - 04/05/2023 3:20 PM EST Unable to accept pt at this time due to high volume of pts in area. Please advise documented in this encounter Plan of Treatment Upcoming Encounters Date Type Department Care Team (Late st Contact Info) Description 04/13/2023 12:30 PM EST [facility], [facility] [address] [address] Tatyana Delaney, RN [address] [place] [address] 04/14/2023 3:00 PM EST Office Visit Cardiology, [facility] [address] [facility] [place] [address] Wood Wong PA-C 132 [facility] [place], [place] [address] 04/21/2023 1:00 PM EST Cardiac Studies Cardiology, [facility] [address] [facility] [place] [address] [place] [address] 04/22/2023 11:00 AM EST Office Visit Nephrology, [facility] [address] [place] [address] Luz Tobias MD [address] [facility] [place] [address] 04/25/2023 1:20 PM EST Office Visit Family [facility] [place] [address] [place] [address] David Umanzor MD [address] [place] [address] 05/26/2023 2:00 PM EST Laboratory Laboratory, [place] [address] [place] [phone] [facility] [address] [place] [address] 05/31/2023 1:30 PM EST Imaging [facility] [address] [facility] [place] [address] 06/07/2023 1:20 PM EST Office Visit [facility] Ctr [facility] [address] [facility] [phone] Vira Byrd, DO [address] [place] [address] 08/01/2023 2:00 PM EDT Laboratory Laboratory, [place] [address] [place] [address] [place], Laboratory [address] [place] [address] 08/02/2023 2:00 PM EDT Office Visit Rheumatology [facility] [address] [facility] [place] [address] Eliot Castelan CRNP [address] [facility] [place] [address] 08/08/2023 12:30 PM EDT Office Visit Hematology/Oncology [facility] [address] [facility] [place] [address] Miguel A Alcantar MD [address] [facility] [place] [address] 03/07/2024 1:00 PM EST Office Visit Cardiology, [facility] [address] [place] [address] Manolo Millan MD [address] [place] [address] Scheduled Procedures Name Priority Associated Diagnoses Date/Ti sc ECHOCARDIOGRAPHY, TRANSESOPH AGEAL; INCLUDING PROBE PLACEMENT, IMAGE [...] Additional history exists CKD PHOS USE SMARTSET 17326 12/02/202311/10, 08/06/2022, 08/21/2021, Additional history exists CKD HGB USE SMARTSET 12796 03/25/202403/25, 03/25/2023, 02/28/2023, Additional history exists DXA [...] this encounter Medical Devices Implanted Type Area Bottle Capping Machine Operator Device Identifier Shelf Expiration Date Model / Serial / Lot [employer] Embosphere Micrspheres Implanted:Qty: 2 on 11/02/2019 by Ish Grove MD at [facility] Right: Abdomen [employer] 05/11/2022 S220GH / [id number] / [id number] Syr Pf 2ml Embospheres 100-300 - [id number] Implanted:Qty: 1 on 11/14/2020 at [facility] [employer] [id number] 08/22/2023 S220GH / / [id number] Envelope Antibacterial Tyrx - [id number] Implanted:Qty: 1 on 12/29/2021 by Fatoumata Roland DO at OR [facility] [employer] : CRM [id number] 09/23/2022 CMR [id number] / / [id number] Stent Synergy Xd Mr 3.71v72wa - [id number] Implanted:Qty: 1 on 03/22/2022 by Katalina Pearce MD at [facility] [employer] [id number] 07/17/2023 [id number] / / [id number] Valve Berhane 3 Ultra 26mm - [id number] Implanted:Qty: 1 on 12/09/2022 by Manolo Millan MD at [facility] [employer] [id number] 12/04/2023 [id number] / / documented as of this encounter [...] the patient have Health Care Power of Core Composer Machine Tender? No Care Teams Bioinformatics Specialist Relationship Specialty Start Date End Date David Umanzor MD [address] [place] [address] PCP - General 02/25/09 documented as of this encounter
--- OUTSIDE RECORDS SUMMARY | 2023-05-28 21:36 | External Medical Summary | Summary of Care ---
Author Name Unknown Organization [facility] Address [address] [place] [address] Phone [phone] Care Team Providers Care Surveyor Geodetic Name Role Phone David Umanzor MD Primary Care Provider +1- [phone] Reason for Visit * Reason Onset Date Comments Fax 03/24/2023 Home [facility] red/ glucose monitor Vane called from [facility]. Encounter Details Date Type Department Care Team (Late st Contact Info) Description 03/24/2023 Telephone [facility] [address] [place] [address] David Umanzor MD [address] [place] [address] Fax (Home Care Delivered/ glucose monitor ... Allergies Active Allergy Reactions Criticality Noted Date Comments Bactrim 02/09/2010 Cephalosporins Anaphylaxis,Edema face/lips/tongue High 04/11/2009 Anaphylaxis to cefaclor, facial swelling to cephalexin. Ciprofloxacin Low 03/30/2021 Other reaction(s): Nausea Butorphanol Tartrate 02/09/2010 Heart racing Sulfa Antibiotics Hives High 05/22/2002 Other reaction(s): Hives Trimethoprim 04/15/2022 Other reaction(s): Hives documented as of this encounter (statuses as of 04/06/2023) Medications Medication Sig Dispensed Refills Start Date [...] 1 2 Active Blood Glucose Monitoring Suppl ([employer] AUTOCODE BLOOD GLUCOSE) w/Device KITIndications:DM type 2 [...] daily 400 Each 3 3 Active Creon 66309-21602 UNIT Oral Capsule Delayed Release Particles (Pancrelipase (Wdm-Igkh-Kazq))Indicati ons:Pancreatic insufficiency TAKE ONE CAPSULE BY MOUTH [...] bedtime. 2 mL 5 3 Active Nystatin 844146 UNIT/GM External Powder (Nystop) APPLY TO AFFECTED AREAS UNDER THE BREASTS THREE TIMES PER DAY NEEDED 30 g 1 3 Active NovoLOG FlexPen 100 UNIT/ML Subcutaneous Solution Pen-injector (insulin aspart)Indications:Type 2 diabetes mellitus with hyperosmolarity without coma, without long-term current use of insulin ([facility]) Inject 10 units with breakfast, 4 units with lunch, and 10 units with PM meal. Inject 4 units if BG is >200. 30 mL 5 3 Active Acetaminophen 500 MG Oral TabletIndications:HFrEF (heart failure with reduced ejection fraction) ([facility]),Coronary artery disease involving [place]e-[place]ou[place] coronary artery of otoe-[place]ou[place] heart without angina pectoris,Nonrheumatic aortic valve stenosis,Cardiac [...] n 5-325 MG Oral TabletIndications:Athero sclerosis of otoe-[place]ou[place] artery of left lower extremity with intermittent claudication (HCC),Pain of left lower extremity Take 1 Tablet by mouth every 6 hours as needed for Pain, Mild. 30 Tablet 0 3 03/30/20 23 Discontin ued(Refil l) documented as of this encounter (statuses as of 04/06/2023) Active Problems Problem Noted Date Diagnosed Date [...] to excess calories 0 08/09/2022 Atherosclerosis of o[place]ou[place] ar jania of left lower extremity with intermittent claudication 08/09/2022 Coronary artery disease invo lving [place]ou[place] coronary artery of o[place]ou[place] heart with angina pectoris 03/22/2022 Last Assessment [...] as of this encounter (statuses as of 04/06/2023) Resolved Problems Problem Noted Date Diagnosed Date [...] [facility] DET[facility] Study: Project # [id number], Drying And Winding Supervisor: Manny Santacruz, PhD. SUMMARY: Goal: Establish [...] contact study staff at ; after hours Drying And Winding Supervisor via the [facility] hospital engine lathe set up operator . Please contact study team before resolving/deleting from patients problem list. Study phone number: [phone]. Diagnosis changed due to Research Module. Go to Snapshot for study details. Encounter for examination fo r normal comparison and control in clinical research program 11/08/2018 12/10/2021 Overview: DO NOT DELETE - [facility] Study: Project # [id number], Drying And Winding Supervisor: Kevin Pearce MS, MPH. SUMMARY: Goal: Establish [...] contact study staff at ; after hours Drying And Winding Supervisor via the [facility] engine lathe set up operator . - Please contact study team before resolving/deleting from patients problem list. Study phone number: [phone]. Diagnosis changed due to Research Module. Go [...] as of this encounter (statuses as of 04/06/2023) Immunizations Name Administration Dates Next Due COVID-19 [...] and would like to be contacted at [phone]. * Telephone Encounter - Nallely Tompkins LPN [...] electronic signature. Fax it back then to [phone] * Telephone Encounter - Lizz Arteaga LPN - 03/24/2023 3:48 PM EST OV notes faxed 03/24/2023 * Telephone Encounter - Dorothy Gonzalez OSA - 03/24/2023 9:32 AM EST Caller requesting the following information to be faxed: Name/Company of caller: [employer] Information requested to be faxed: most recent office note related to diabetes Fax number: [phone] Attention to Name/Company: Any additional information?: re: diabetic glucose monitor ordered 8.16.23 documented in this encounter Plan of Treatment Upcoming Encounters Date Type Department Care Team (Late st Contact Info) Description 04/13/2023 12:30 PM EST [facility], [facility] [address] [address] Tatyana Delaney RN [address] [place] [address] 04/14/2023 3:00 PM EST Office Visit Cardiology, [facility] [address] [place] [address] Wood Wong PA-C [address] [place] [address] 04/21/2023 1:00 PM EST Cardiac Studies Cardiology, [facility] [address] [place] [address] [facility] [address] [place] [address] 04/22/2023 11:00 AM EST Office Visit Nephrology, [facility] [address] [place] [address] TobiasLuz jacques MD [address] [place] [address] 04/25/2023 1:20 PM EST Office Visit Family Practice, [place] [address] [place] [facility] [place] [address] David Umanzor MD [address] [place] [facility] [place] [address] 05/26/2023 2:00 PM EST Laboratory Laboratory, [place] [address] [place] [facility] [place] [address] Abdel[facility] [address] [place] [facility] [place] [address] 05/31/2023 1:30 PM EST Imaging Radiology [address] 132 [facility] [place] [address] 06/07/2023 1:20 PM EST Office Visit Sleep Disorders Ctr [facility] 132 [facility] [place] [phone] Vira Byrd, 132 [facility] [place] [address] 08/01/2023 2:00 PM EDT Laboratory Laboratory, [place] [address] [facility] [address] [facility]del[facility] [address] [place] [facility] [place] [address] 08/02/2023 2:00 PM EDT Office Visit Rheumatology [address] [place] [address] Eliot Castelan, RENITA [address] [place] [address] 08/08/2023 12:30 PM EDT Office Visit Hematology/Oncology [facility] [address] [place] [address] Miguel A Alcantar MD [address] [place] [address] 03/07/2024 1:00 PM EST Office Visit Cardiology, [facility] [address] [place] [place] [address] Manolo Millan MD [address] [facility] [address] Scheduled Procedures Name Priority Associated Diagnoses [...] Additional history exists CKD PHOS USE SMARTSET 68363 12/02/202311/10, 08/06/2022, 08/21/2021, Additional history exists CKD HGB USE SMARTSET 28295 03/25/202403/25, 03/25/2023, 02/28/2023, Additional history exists DXA [...] this encounter Medical Devices Implanted Type Area Fourth Mate Device Identifier Shelf Expiration Date Model / Serial / Lot Splother Embosphere Micrspheres Implanted:Qty: 2 on 11/02/2019 by Ish Grove MD at [facility] Right: Abdomen [employer] 05/11/2022 S220GH / S220GH / [id number] Syr Pf 2ml Embospheres 100-300 - [id number] Implanted:Qty: 1 on 11/14/2020 at [facility] [employer] [id number] 08/22/2023 S220GH / / [id number] Envelope Antibacterial Tyrx - [id number] Implanted:Qty: 1 on 12/29/2021 by Fatoumata Roland DO at OR [facility] [employer] : CRM [id number] 09/23/2022 CMR M6122 / / [id number] Stent Synergy Xd Mr 3.47i52nz - [id number] Implanted:Qty: 1 on 03/22/2022 by Katalina Pearce MD at [facility] [employer] [id number] 07/17/2023 [id number] / / [id number] Valve Berhane 3 Ultra 26mm - [id number] Implanted:Qty: 1 on 12/09/2022 by Manolo Millan MD at [facility] [employer] [id number] 12/04/2023 [id number] / / documented as of this encounter [...] the patient have Health Care Power of Water Regulator And Valve Repairer? No Care Teams Surveyor Geodetic Relationship Specialty Start Date End Date Dvaid Umanzor MD [address] [place] [address] PCP - General 02/25/09 documented as of this encounter
--- OUTSIDE RECORDS SUMMARY | 2023-05-28 21:36 | External Medical Summary | Summary of Care ---
Author Name Unknown Organization [facility] Address [address] [place] [address] Phone [phone] Care Team Providers Care Clinical Pathologist Name Role Phone David Umanzor MD Primary Care Provider +1- [phone] Reason for Visit * Reason Onset Date Comments Advice 04/05/2023 Encounter Details Date Type Department Care Team (Late st Contact Info) Description 04/05/2023 Telephone [facility] [address] [place] [address] David Umanzor MD [address] [place] [address] Advice Allergies Active Allergy Reactions [...] Fluticasone Propionate 50 MCG/ACT Nasal Suspension (Flonase)Indications:Electronic Systems Security Assessment sanket rhinitis ADMINISTER 2 SPRAYS IN EACH [...] daily 400 Each 3 3 Active Creon 68535-57018 UNIT Oral Capsule Delayed Release Particles (Pancrelipase (Bqg-Odug-Byze))Indicatio ns:Pancreatic insufficiency TAKE ONE CAPSULE BY MOUTH [...] bedtime. 2 mL 5 3 Active Nystatin 484243 UNIT/GM External Powder (Nystop) APPLY TO AFFECTED [...] [facility]),Coronary artery disease involving [place] coronary artery of [place] heart without angina pectoris,Nonrheumatic aortic valve stenosis,Cardiac [...] Active Gabapentin 300 MG Oral Capsule (Neurontin)Indications:Ac [place] on chronic combined systolic and diastolic congestive [...] HYDROcodone-Acetaminophen 5-325 MG Oral TabletIndications:Atheros clerosis of [place] artery of left lower extremity with intermittent [...] to excess calories 0 08/09/2022 Atherosclerosis of [place] ar jania of left lower extremity with intermittent claudication 08/09/2022 Coronary artery disease invo lving [place] coronary artery of [place] heart with angina pectoris 03/22/2022 Last Assessment [...] Diabetic retinopathy Rheumatoid arthritis of [facility] sites without rheumatoid factor [...] [facility] DETECT Study: Project # [id number], Product Development Coordinator: Manny Santacruz, PhD. SUMMARY: Goal: Establish [...] contact study staff at ; after hours Product Development Coordinator via the [facility] projector operator . Please contact study team before resolving/deleting from patients problem list. Study phone number: [phone]. Diagnosis changed due to Research Module. Go to Snapshot for study details. Encounter for examination fo r normal comparison and control in clinical research program 11/08/2018 12/10/2021 Overview: DO NOT DELETE - [facility] Study: Project # [id number], Product Development Coordinator: Kevin Pearce, MS, MPH. SUMMARY: Goal: [...] contact study staff at ; after hours Product Development Coordinator via the [facility] hospital projector operator . - Please contact study team before resolving/deleting from patients problem list. Study phone number: [phone]. Diagnosis changed due to Research Module. Go [...] - 04/06/2023 2:59 PM EST Faxed to [employer]. 04/06/2023 * Telephone Encounter - Jo-Ann Schwartz [...] Description 04/13/2023 12:30 PM EST [facility] [address] [address] Tatyana Delaney RN [address] [place] [address] 04/14/2023 3:00 PM EST Office Visit Cardiology, [facility] [address] [address] Wood Wong PA-C [address] [place] [address] 04/21/2023 1:00 PM EST Cardiac Studies Cardiology, [facility] [address] [address] [facility] [address] [address] 04/22/2023 11:00 AM EST Office Visit Nephrology, [facility]hael Marquez [address] [place], [place] [address] Luz Tobias MD [address] [place], [place] [address] 04/25/2023 1:20 PM EST Office Visit Family Practice, [place] [address] [place] [address] David Umanzor MD [address] [place] [address] 05/26/2023 2:00 PM EST Laboratory Laboratory, [place] [address] [place] [facility] [place] [address] [place], [facility] [address] [place] [address] 05/31/2023 1:30 PM EST Imaging Radiology [address] [place] [address] 06/07/2023 1:20 PM EST Office Visit Sleep Disorders Ctr [facility] [address] [place] [phone] Vira Byrd, 132 [facility] [place] [address] 08/01/2023 2:00 PM EDT Laboratory Laboratory, [place] [address] [place] [facility] [place] [place] [address] [place], [facility] [address] [place], [place] [address] 08/02/2023 2:00 PM EDT Office Visit Rheumatology [place] [address] [facility] [place], [place] [address] Eliot Castelan CRNP [address] [place] [address] 08/08/2023 12:30 PM EDT Office Visit Hematology/Oncology [facility] [address] [place] [address] Miguel A Alcantar MD [address] [place] [address] 03/07/2024 1:00 PM EST Office Visit Cardiology, [facility] 132 [facility] [place] [address] Manolo Millan MD [address] [place] [address] Scheduled Procedures Name Priority Associated [...] Additional history exists CKD PHOS USE SMARTSET 38688 12/02/202311/10, 08/06/2022, 08/21/2021, Additional history exists CKD HGB USE SMARTSET 76031 03/25/202403/25, 03/25/2023, 02/28/2023, Additional history exists DXA [...] this encounter Medical Devices Implanted Type Area Lump Roller Device Identifier Shelf Expiration Date Model / Serial / Lot Yellowsmith Embosphere Micrspheres Implanted:Qty: 2 on 11/02/2019 by Ish Grove MD at [facility] Right: Abdomen [employer] 05/11/2022 S220GH / S220GH / [id number] Syr Pf 2ml Embospheres 100-300 - [id number] Implanted:Qty: 1 on 11/14/2020 at [facility] [employer] [id number] 08/22/2023 S220GH / / [id number] Envelope Antibacterial Tyrx - [id number] Implanted:Qty: 1 on 12/29/2021 by Fatoumata Roland DO at OR [facility] [employer] : CRM [id number] 09/23/2022 CMR M6122 / / [id number] Stent Synergy Xd Mr 3.68l24wx - [id number] Implanted:Qty: 1 on 03/22/2022 by Katalina Pearce MD at [facility] [employer] [id number] 07/17/2023 [id number] / / [id number] Valve Berhane 3 Ultra 26mm - [id number] Implanted:Qty: 1 on 12/09/2022 by Manolo Millan MD at [facility] [employer] [id number] 12/04/2023 [id number] / / documented as of this encounter [...] the patient have Health Care Power of Toxicologist? No Care Teams Clinical Pathologist Relationship Specialty Start Date End Date David Umanzor MD [address] [place] [address] PCP - General 02/25/09 documented as of this encounter
--- OUTSIDE RECORDS SUMMARY | 2023-05-28 21:36 | External Medical Summary | Summary of Care ---
Author Name Unknown Organization [facility] Address [address] [address] Phone [phone] Care Team Providers Care Chemistry Technologist Name Role Phone David Umanzor MD Primary Care Provider +1- [phone] Reason for Visit * Reason Onset Date Comments [facility]: Maintenance 04/05/2023 Encounter Details Date Type Department Care Team (Late st Contact Info) Description 04/05/2023 Telephone [facility] 132 [facility] [place] [address] [facility], Nurse [facility] 132 [place] [address] [facility]: Maintenance Allergies Active Allergy [...] Active Fluticasone Propionate 50 MCG/ACT Nasal Suspension (Flonase)Indications:Land Measurer sanket rhinitis ADMINISTER 2 SPRAYS IN EACH [...] daily 400 Each 3 3 Active Creon 30135-49944 UNIT Oral Capsule Delayed Release Particles (Pancrelipase (Uqm-Qhgu-Qinq))Indicatio ns:Pancreatic insufficiency TAKE ONE CAPSULE BY MOUTH [...] bedtime. 2 mL 5 3 Active Nystatin 282660 UNIT/GM External Powder (Nystop) APPLY TO AFFECTED [...] fraction) ([facility]),Coronary artery disease involving pokagon coronary artery of pokagon heart without angina pectoris,Nonrheumatic aortic valve stenosis,Cardiac [...] Active Gabapentin 300 MG Oral Capsule (Neurontin)Indications:Ac [place] on chronic combined systolic and diastolic congestive [...] HYDROcodone-Acetaminophen 5-325 MG Oral TabletIndications:Atheros clerosis of pok[place] artery of left lower extremity with intermittent [...] to excess calories 0 08/09/2022 Atherosclerosis of pok[place] ar jania of left lower extremity with intermittent claudication 08/09/2022 Coronary artery disease invo lving pokagon coronary artery of pokagon heart with angina pectoris 03/22/2022 Last Assessment [...] Diabetic retinopathy Rheumatoid arthritis of [facility] sites without rheumatoid factor 01/26/2016 Last Assessment [...] DELETE [facility] DETECT Study: Project # [id number], Vp Account Director: Manny Santacruz, PhD. SUMMARY: Goal: Establish [...] contact study staff at ; after hours Vp Account Director via the [facility] dimmer board operator . Please contact study team before resolving/deleting from patients problem list. Study phone number: [phone]. Diagnosis changed due to Research Module. Go to Snapshot for study details. Encounter for examination fo r normal comparison and control in clinical research program 11/08/2018 12/10/2021 Overview: DO NOT DELETE - [facility] Study: Project # [id number], Vp Account Director: Kevin Pearce, MS, MPH. SUMMARY: Goal: [...] contact study staff at ; after hours Vp Account Director via the [facility] hospital dimmer board operator . - Please contact study team before resolving/deleting from patients problem list. Study phone number: [phone]. Diagnosis changed due to Research Module. Go [...] Telephone Encounter - Fany Luis RN - 04/05/2023 4:58 PM EST PC from patient states she hasn't heard anything regarding HH,DME order for depends,or order for dexcom sensors HH order was refaxed today 04/05/23 per notes [facility] following DME for adult briefs---accepted by [facility] ([phone]). Spoke to Jacqueline they did not have patient size in stock and had to order they will reach out to patient once they receive the product to set up delivery Dexcom sensors--home care delivered ([phone]) Per patient she has no dexcom sensors to complete the sensor change tonight PC to home care delivered they stated they faxed pt records back on 04/04/23 to [phone] (PCP fax). Per home care delivered they were faxed 4 x with no response from PCP office Ordering provider is Dr. López per home care delivered therefore they need Dr. López to provide written signature and date on forms. They will not accept electronic signatures Signature/date are needed before they can ship sensors [facility] provider can not sign forms d/t dr López being ordering provider In order for [facility] to sign. All new orders would be needed Patient aware of above. Provided patient with [facility] number also Fany Luis RN, BSN [facility] real estate site analystPhotograph Printer documented in this encounter Plan of Treatment Upcoming Encounters Date Type Department Care Team (Late st Contact Info) Description 04/13/2023 12:30 PM EST Home Visit [facility] [address] [address] Tatyana Delaney, RN [address] [place] [address] 04/14/2023 3:00 PM EST Office Visit Cardiology, [facility] [address] [place] [address] Wood Wong PAMirandaC [address] [address] 04/21/2023 1:00 PM EST Cardiac Studies Cardiology, [facility] 132 [facility] [place] [address] [facility] 132 [facility] [place] [address] 04/22/2023 11:00 AM EST Office Visit Nephrology, [facility] [address] [place] [address] Luz Tobias MD [address] [place] [address] 04/25/2023 1:20 PM EST Office Visit [facility], [place] [address] [place] [address] David Umanzor MD [address] [place] [address] 05/26/2023 2:00 PM EST Laboratory Laboratory, [place] [address] [place] [address] [facility] [address] [place] [address] 05/31/2023 1:30 PM EST Imaging Radiology [facility] 1st [facility] 132 [facility] [place] [address] 06/07/2023 1:20 PM EST Office Visit Sleep Disorders Ctr [facility] 132 [facility] [place] [phone] Vira Byrd, [address] [place] [address] 08/01/2023 2:00 PM EDT Laboratory Laboratory, [place] [address] [place] [address] [place], [facility] [address] [place] [address] 08/02/2023 2:00 PM EDT Office Visit Rheumatology [facility] [address] [facility] [place] [address] Eliot Castelan CRNP [address] [facility] [place], [place] [address] 08/08/2023 12:30 PM EDT Office Visit Hematology/Oncology [facility] [address] [place] [address] Miguel A Alcantar MD [address] [place] [address] 03/07/2024 1:00 PM EST Office Visit Cardiology, [facility] 132 [place] [address] Manolo Millan MD [address] [place] [address] Scheduled Procedures Name Priority Associated [...] Additional history exists CKD PHOS USE SMARTSET 09798 12/02/202311/10, 08/06/2022, 08/21/2021, Additional history exists CKD HGB USE SMARTSET 49127 03/25/202403/25, 03/25/2023, 02/28/2023, Additional history exists DXA [...] this encounter Medical Devices Implanted Type Area Bridge Expert Device Identifier Shelf Expiration Date Model / Serial / Lot Merit Medical Embosphere Micrspheres Implanted:Qty: 2 on 11/02/2019 by Ish Grove MD at [facility] Right: Abdomen [employer] 05/11/2022 S220GH / S220GH / [id number] Syr Pf 2ml Embospheres 100-300 - [id number] Implanted:Qty: 1 on 11/14/2020 at [facility] [employer] [id number] 08/22/2023 S220GH / / [id number] Envelope Antibacterial Tyrx - [id number] Implanted:Qty: 1 on 12/29/2021 by Fatoumata Roland DO at OR [facility] [employer] : CRM [id number] 09/23/2022 CMR [id number] / / [id number] Stent Synergy Xd Mr 3.62u34qv - [id number] Implanted:Qty: 1 on 03/22/2022 by Katalina Pearce MD at [facility] [employer] [id number] 07/17/2023 [id number] / / [id number] Valve Berhane 3 Ultra 26mm - [id number] Implanted:Qty: 1 on 12/09/2022 by Manolo Millan MD at [facility] [employer] [id number] 12/04/2023 [id number] / / documented as of this encounter [...] the patient have Health Care Power of Wastewater Treatment Plant Instructor? No Care Teams Chemistry Technologist Relationship Specialty Start Date End Date David Umanzor MD [address] [facility] [place] [address] PCP - General 02/25/09 documented as of this encounter
--- OUTSIDE RECORDS SUMMARY | 2023-05-28 21:36 | External Medical Summary | Summary of Care ---
Author Name Unknown Organization [facility] Address [address] [place] [address] Phone [phone] Care Team Providers Care Icer Machine Name Role Phone David Umanzor MD Primary Care Provider +1- [phone] Reason for Visit * Reason Onset Date Comments Advice 04/05/2023 Encounter Details Date Type Department Care Team (Late st Contact Info) Description 04/05/2023 Telephone [facility] [address] [place] [address] David Umanzor MD [address] [place] [address] Advice Allergies Active Allergy Reactions [...] Active Fluticasone Propionate 50 MCG/ACT Nasal Suspension (Flonase)Indications:Teacher Lip Reading sanket rhinitis ADMINISTER 2 SPRAYS IN EACH [...] daily 400 Each 3 3 Active Creon 52712-73530 UNIT Oral Capsule Delayed Release Particles (Pancrelipase (Wzn-Glkb-Utog))Indicatio ns:Pancreatic insufficiency TAKE ONE CAPSULE BY MOUTH [...] bedtime. 2 mL 5 3 Active Nystatin 941505 UNIT/GM External Powder (Nystop) APPLY TO AFFECTED [...] [facility]),Coronary artery disease involving kiowa tribe coronary [...] ([facility]) Inject 30 units daily 45 mL [...] Active Gabapentin 300 MG Oral Capsule (Neurontin)Indications:Ac [place] on chronic combined systolic and diastolic congestive heart failure ([facility]) Take 1 Capsule by mouth in [...] HYDROcodone-Acetaminophen 5-325 MG Oral TabletIndications:Atheros clerosis of ki[place] tribe artery of left lower [...] Rheumatoid arthritis of [facility] sites without rheumatoid factor 01/26/2016 Last Assessment [...] DELETE [facility] DETECT Study: Project # [id number], Patternmaker Plaster And Plastic: Manny Santacruz, PhD. SUMMARY: Goal: Establish test [...] contact study staff at ; after hours Patternmaker Plaster And Plastic via the [facility] multi needle machine operator . Please contact study team before resolving/deleting from patients problem list. Study phone number: [phone]. Diagnosis changed due to Research Module. Go to Snapshot for study details. Encounter for examination fo r normal comparison and control in clinical research program 11/08/2018 12/10/2021 Overview: DO NOT DELETE - [facility] Study: Project # [id number], Patternmaker Plaster And Plastic: Kevin Pearce, MS, MPH. SUMMARY: Goal: Establish [...] contact study staff at ; after hours Patternmaker Plaster And Plastic via the [facility] hospital multi needle machine operator . - Please contact study team before resolving/deleting from patients problem list. Study phone number: [phone]. Diagnosis changed due to Research Module. Go [...] - 04/06/2023 4:38 PM EST Faxed to [facility]. 04/06/2023 * Telephone Encounter - Ina Melgar OSA - 04/06/2023 4:33 PM EST Avani from [facility] called to state that they have to decline due to staffing issues and she will not receive the proper care. * Telephone Encounter - Fozia Montanez OSA - 04/06/2023 2:59 PM EST [facility]. 04/06/2023 * Telephone Encounter - Jo-Ann Schwartz OSA - 04/06/2023 10:16 AM EST Spoke with Nori from [facility] and she received another referral from office [...] PM EST [facility], [facility] [address] [place] [address] Tatyana Delaney, RN [address] [place] [address] 04/14/2023 3:00 PM EST Office Visit Cardiology, [facility] 132 [facility] [place] [address] Wood Wong PA-C 132 [facility] [place], [place] [address] 04/21/2023 1:00 PM EST Cardiac Studies Cardiology, [facility] 132 [facility] [place] [address] [place], [facility] [address] [facility] [place] [address] 04/22/2023 11:00 AM EST Office Visit Nephrology, [facility] [address] [place] [address] Luz Tobias MD 200 [facility] [place] [address] 04/25/2023 1:20 PM EST Office Visit Family [facility], [place] [address] [place] [address] David Umanzor MD [address] [place] [address] 05/26/2023 2:00 PM EST Laboratory Laboratory, [place] [address] [place] [address] [facility] [address] [place] [address] 05/31/2023 1:30 PM EST Imaging Radiology [facility] 132 [facility] [place] [address] 06/07/2023 1:20 PM EST Office Visit [facility] Disorders Ctr [facility] [address] [facility] [place] [phone] Vira Byrd, DO [address] [place] [address] 08/01/2023 2:00 PM EDT Laboratory Laboratory, [place] [address] [place] [address] [place], Laboratory [address] [place] [address] 08/02/2023 2:00 PM EDT Office Visit Rheumatology [facility] [address] [facility] [place] [address] Eliot Castelan CRNP [address] [facility] [place] [address] 08/08/2023 12:30 PM EDT Office Visit Hematology/Oncology [facility] 200 [facility] [place] [address] Miguel A Alcantar MD [address] [facility] [place] [address] 03/07/2024 1:00 PM EST Office Visit Cardiology, [facility] [address] [place] [address] Manolo Millan MD [address] [place] [address] Scheduled Procedures Name Priority Associated Diagnoses Date/Ti ks ECHOCARDIOGRAPHY, TRANSESOPH AGEAL; INCLUDING PROBE PLACEMENT, IMAGE [...] Additional history exists CKD PHOS USE SMARTSET 04344 12/02/202311/10, 08/06/2022, 08/21/2021, Additional history exists CKD HGB USE SMARTSET 77332 03/25/202403/25, 03/25/2023, 02/28/2023, Additional history exists DXA [...] this encounter Medical Devices Implanted Type Area Yard Demurrage Clerk Device Identifier Shelf Expiration Date Model / Serial / Lot [facility] Medical Embosphere Micrspheres Implanted:Qty: 2 on 11/02/2019 by Ish Grove MD at [facility] Right: Abdomen [employer] 05/11/2022 S220GH / S220GH / [id number] Syr Pf 2ml Embospheres 100-300 - [id number] Implanted:Qty: 1 on 11/14/2020 at [facility] [employer] [id number] 08/22/2023 S220GH / / [id number] Envelope Antibacterial Tyrx - [id number] Implanted:Qty: 1 on 12/29/2021 by Fatoumata Roland DO at OR [facility] [employer] : CRM [id number] 09/23/2022 CMR M6122 / / [id number] Stent Synergy Xd Mr 3.66k89we - [id number] Implanted:Qty: 1 on 03/22/2022 by Katalina Pearce MD at [facility] [employer] [id number] 07/17/2023 [id number] / / [id number] Valve Berhane 3 Ultra 26mm - [id number] Implanted:Qty: 1 on 12/09/2022 by Manolo Millan MD at [facility] [employer] [id number] 12/04/2023 [id number] / / documented as of this encounter [...] the patient have Health Care Power of Blue Line Trimmer? No Care Teams Icer Machine Relationship Specialty Start Date End Date David Umanzor MD [address] [place] [address] PCP - General 02/25/09 documented as of this encounter
--- OUTSIDE RECORDS SUMMARY | 2023-05-28 21:36 | External Medical Summary | Summary of Care ---
Author Name Unknown Organization [facility] Address [address] [place] [address] Phone [phone] Care Team Providers Care Audio Production Engineer Name Role Phone David Umanzor MD Primary Care Provider +1- [phone] Reason for Visit * Reason Onset Date Comments Information 04/05/2023 Encounter Details Date Type Department Care Team (Late st Contact Info) Description 04/05/2023 Telephone [facility], [place] [address] [place] [address] Services, Scheduling [address] [place] [address] Information (///) Allergies Active Allergy Reactions Criticality Noted Date [...] 1 2 Active Blood Glucose Monitoring Suppl (AQS AUTOCODE BLOOD GLUCOSE) w/Device KITIndications:DM type 2 [...] Active Fluticasone Propionate 50 MCG/ACT Nasal Suspension (Flonase)Indications:Poultry Grader sanket rhinitis ADMINISTER 2 SPRAYS IN EACH [...] daily 400 Each 3 3 Active Creon 10625-99131 UNIT Oral Capsule Delayed Release Particles (Pancrelipase (Fus-Rygr-Bpen))Indicatio ns:Pancreatic insufficiency TAKE ONE CAPSULE BY MOUTH [...] bedtime. 2 mL 5 3 Active Nystatin 331785 UNIT/GM External Powder (Nystop) APPLY TO AFFECTED [...] fraction) ([facility]),Coronary artery disease involving [place] coronary artery of [place] heart without angina pectoris,Nonrheumatic aortic valve stenosis,Cardiac [...] HYDROcodone-Acetaminophen 5-325 MG Oral TabletIndications:Atheros clerosis of [place] artery of left lower extremity with intermittent [...] to excess calories 0 08/09/2022 Atherosclerosis of [place] ar jania of left lower extremity with intermittent claudication 08/09/2022 Coronary artery disease invo lving [place] coronary artery of [place] heart with angina pectoris 03/22/2022 Last Assessment [...] Overview: Diabetic retinopathy Rheumatoid arthritis of [facility] sites without rheumatoid factor 01/26/2016 Last Assessment [...] [facility] DETECT Study: Project # [id number], Cloth Shrinking Tester: Manny Santacruz, PhD. SUMMARY: Goal: Establish test [...] contact study staff at ; after hours Cloth Shrinking Tester via the [facility] pressure tank operator . Please contact study team before resolving/deleting from patients problem list. Study phone number: [phone]. Diagnosis changed due to Research Module. Go to Snapshot for study details. Encounter for examination fo r normal comparison and control in clinical research program 11/08/2018 12/10/2021 Overview: DO NOT DELETE - [facility] DETECT Study: Project # [id number], Cloth Shrinking Tester: Kevin Pearce, MS, MPH. SUMMARY: Goal: Establish [...] contact study staff at ; after hours Cloth Shrinking Tester via the [facility] pressure tank operator . - Please contact study team before resolving/deleting from patients problem list. Study phone number: [phone]. Diagnosis changed due to Research Module. Go [...] - Papi De La Torre OSA - 04/05/2023 4:45 PM EST TT request to find a different agency, [facility] declined [facility] [phone] f [phone] p Faxed HH order, pt ins/demo and supporting notes, awaiting determination [facility] Call to their answering service to see if they cover [place], awaiting call back [facility] [phone] f [phone] p Faxed HH order, pt ins/demo and supporting notes, awaiting determination [facility] [phone] f [phone] p Faxed HH order, pt ins/demo and supporting notes, awaiting determination Declined per von d/t staffing * Telephone Encounter - Orquidea Esquivel OSA - 04/05/2023 10:36 AM EST Request to f/u with [facility] on order for HH that was previously faxed, I called and per [email or web address], nothing received so I faxed to them again this morning to [phone] at 1030 documented in this encounter Plan of Treatment Upcoming Encounters Date Type Department Care Team (Late st Contact Info) Description 04/13/2023 12:30 PM EST Home Visit [facility]inger at [facility] [address] [place] [address] Tatyana Delaney RN 132 [place] [address] 04/14/2023 3:00 PM EST Office Visit Cardiology, [facility] [address] [address] Wood Wong PA-C [address] [address] 04/21/2023 1:00 PM EST Cardiac Studies Cardiology, [facility] [address] [place] [address] Adam Marx [facility] 132 [place] [address] 04/22/2023 11:00 AM EST Office Visit Nephrology, [facility] Marquez [address] [place], [place] [address] Luz Tobias MD 200 [facility] [place], [place] [address] 04/25/2023 1:20 PM EST Office Visit Family [facility], [place] [address] [place] [address] David Umanzor MD [address] [place] [address] 05/26/2023 2:00 PM EST Laboratory Laboratory, [place] [address] [place] [address] [place], [facility] [address] [place] [address] 05/31/2023 1:30 PM EST Imaging Radiology [address] 132 [place] [address] 06/07/2023 1:20 PM EST Office Visit [facility] Ctr [facility] [address] [facility] [phone] Vira Byrd, 132 [facility] [place] [address] 08/01/2023 2:00 PM EDT Laboratory Laboratory, [place] [address] [place] [address] [place], Laboratory [address] [place] [address] 08/02/2023 2:00 PM EDT Office Visit Rheumatology [facility] [address] [place] [address] Eliot Castelan CRNP [address] [facility] [place] [address] 08/08/2023 12:30 PM EDT Office Visit Hematology/Oncology [facility] 200 [facility] [place], [place] [address] Miguel A Alcantar MD [address] [place], [place] [address] 03/07/2024 1:00 PM EST Office Visit Cardiology, [facility] [address] [place], [place] [address] Manolo Millan MD [address] [place] [address] Scheduled Procedures Name Priority Associated [...] Additional history exists CKD PHOS USE SMARTSET 83925 12/02/202311/10, 08/06/2022, 08/21/2021, Additional history exists CKD HGB USE SMARTSET 40705 03/25/202403/25, 03/25/2023, 02/28/2023, Additional history exists DXA [...] this encounter Medical Devices Implanted Type Area Elementary Supervisor Device Identifier Shelf Expiration Date Model / Serial / Lot Apisphere Embosphere Micrspheres Implanted:Qty: 2 on 11/02/2019 by Ish Grove MD at [facility] [address] [address] Right: Abdomen [employer] 05/11/2022 S220GH / S220GH / [id number] Syr Pf 2ml Embospheres 100-300 - [id number] Implanted:Qty: 1 on 11/14/[address] [facility] [employer] [id number] 08/22/2023 S220GH / / [id number] Envelope Antibacterial Tyrx - [id number] Implanted:Qty: 1 on 12/29/2021 by Fatoumata Roland DO at OR [facility] [employer] : CRM [id number] 09/23/2022 CMR M6122 / / [id number] Stent Synergy Xd Mr 3.23e20vg - [id number] Implanted:Qty: 1 on 03/22/2022 by Katalina Pearce MD at [facility] [employer] [id number] 07/17/2023 [id number] / / [id number] Valve Berhane 3 Ultra 26mm - [id number] Implanted:Qty: 1 on 12/09/2022 by Manolo Millan MD at [facility] [employer] [id number] 12/04/2023 [id number] / / documented as of this encounter [...] the patient have Health Care Power of Arch Support Technician? No Care Teams Audio Production Engineer Relationship Specialty Start Date End Date David Umanzor MD [address] [place] [address] PCP - General 02/25/09 documented as of this encounter
--- OUTSIDE RECORDS SUMMARY | 2023-05-28 21:36 | External Medical Summary | Summary of Care ---
Author Name Unknown Organization [facility] Address [address] [place] [address] Phone [phone] Care Team Providers Care Mixing Tank Operator Name Role Phone David Umanzor MD Primary Care Provider [phone]- [phone] Reason for Visit * Reason Onset Date Comments Advice 04/05/2023 Encounter Details Date Type Department Care Team (Late st Contact Info) Description 04/05/2023 Telephone [facility] [address] [place] [address] David Umanzor MD [address] [place] [address] Advice Allergies Active Allergy Reactions [...] neurological disease, not at goal ([facility]) Test blood sugar 4 times daily Dx: E11.9 1 Kit 0 9 Active PRODIGY LANCETS 28G MISCIndications:DM type 2, not at goal ([facility]) TEST BLOOD SUAGER 4 TIMES A [...] goal of less than 7.0% ([facility]),Type 2 diabetes mellitus with stage 3 chronic kidney disease, with long-term current use of insulin, unspecified whether stage 3a or 3b CKD ([facility]),DM type 2 causing neurological disease, not at goal ([facility]) TEST BLOOD SUGAR UP TO FOUR TIMES DAILY 400 Strip 3 2 Active Fluticasone Propionate 50 MCG/ACT Nasal Suspension (Flonase)Indications:Research/Program Director sanket rhinitis ADMINISTER 2 SPRAYS IN EACH [...] daily 400 Each 3 3 Active Creon 06146-52246 UNIT Oral Capsule Delayed Release Particles (Pancrelipase (Lke-Aljz-Evzc))Indicatio ns:Pancreatic insufficiency TAKE ONE CAPSULE BY MOUTH [...] bedtime. 2 mL 5 3 Active Nystatin 544491 UNIT/GM External Powder (Nystop) APPLY TO AFFECTED AREAS UNDER THE BREASTS THREE TIMES PER DAY NEEDED 30 g 1 3 Active NovoLOG FlexPen 100 UNIT/ML Subcutaneous Solution Pen-injector (insulin aspart)Indications:Type 2 diabetes mellitus with hyperosmolarity without coma, without long-term current use of insulin ([facility]) Inject 10 units with breakfast, 4 units with lunch, and 10 units with PM meal. Inject 4 units if BG is >200. 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 SUMMARY: Goal: Establish test [...] contact study staff at ; after hours Sweatband Perforator via the [facility] hot sealing machine operator . Please contact study team before resolving/deleting from patients problem list. Study phone number: [phone]. Diagnosis changed due to Research Module. Go to Snapshot for study details. Encounter for examination fo r normal comparison and control in clinical research program 11/08/2018 12/10/2021 Overview: DO NOT DELETE - [facility] Study: Project # [id number], Sweatband Perforator: Kevin Pearce, MS, MPH. SUMMARY: Goal: Establish [...] contact study staff at ; after hours Sweatband Perforator via the [facility] hospital hot sealing machine operator . - Please contact study team before resolving/deleting from patients problem list. Study phone number: [phone]. Diagnosis changed due to Research Module. Go [...] encounter Miscellaneous Notes * Telephone Encounter - Ina Melgar OSA - 04/06/2023 4:33 PM EST Avani from [facility] called to state that they have to decline due to staffing issues and she will not receive the proper care. * Telephone Encounter - Fozia Montanez OSA - 04/06/2023 2:59 PM EST Faxed to [facility]. 04/06/2023 * Telephone Encounter - Jo-Ann Schwartz OSA - 04/06/2023 10:16 AM EST Spoke with Nori from [facility] and she received another referral from [...] 12:30 PM EST [facility] [address] [address] Tatyana Delaney, RN [address] [address] 04/14/2023 3:00 PM EST Office Visit Cardiology, [facility] [address] [address] Wood Wong PA-C [address] [address] 04/21/2023 1:00 PM EST Cardiac Studies Cardiology, [facility] 132 [facility] [place] [address] [facility] [address] 04/22/2023 11:00 AM EST Office Visit Nephrology, [facility] [address] [facility] [place], [place] [address] Luz Tobias MD [address] [facility] [place] [address] 04/25/2023 1:20 PM EST Office Visit Family [facility], [place] [address] [place] [address] David Umanzor MD [address] [place] [address] 05/26/2023 2:00 PM EST Laboratory Laboratory, [place] [address] [place] [address] [facility] [address] [place] [address] 05/31/2023 1:30 PM EST Imaging Radiology [facility] 1st [facility] [address] 06/07/2023 1:20 PM EST Office Visit [facility] [address] [facility] [phone] Vira Byrd, 132 [facility] [place] [address] 08/01/2023 2:00 PM EDT Laboratory Laboratory, [place] [address] [place] [address] [place], Laboratory [address] [place] [facility] [place] [address] 08/02/2023 2:00 PM EDT Office Visit Rheumatology [facility] [address] [employer] [place] [address] Eliot Castelan CRNP [address] [place] [address] 08/08/2023 12:30 PM EDT Office Visit Hematology/Oncology [facility] [address] [facility] [place] [address] Miguel A Alcantar MD [address] [place] [address] 03/07/2024 1:00 PM EST Office Visit Cardiology, [facility] [address] [place] [address] Manolo Millan MD [address] [place] [address] Scheduled Procedures Name Priority Associated [...] Additional history exists CKD PHOS USE SMARTSET 00919 12/02/202311/10, 08/06/2022, 08/21/2021, Additional history exists CKD HGB USE SMARTSET 43154 03/25/202403/25, 03/25/2023, 02/28/2023, Additional history exists DXA [...] this encounter Medical Devices Implanted Type Area Block Trader Device Identifier Shelf Expiration Date Model / Serial / Lot Merit Medical Embosphere Micrspheres Implanted:Qty: 2 on 11/02/2019 by Ish Grove MD at [facility] Right: Abdomen [employer] 05/11/2022 S220GH / [id number] / [id number] Syr Pf 2ml Embospheres 100-300 - [id number] Implanted:Qty: 1 on 11/14/2020 at [facility] [employer] [id number] 08/22/2023 S220GH / / [id number] Envelope Antibacterial Tyrx - [id number] Implanted:Qty: 1 on 12/29/2021 by Fatoumata Roland DO at [facility] [employer] : CRM [id number] 09/23/2022 CMR [id number] / / [id number] Stent Synergy Xd Mr 3.64j47go - [id number] Implanted:Qty: 1 on 03/22/2022 by Katalina Pearce MD at [facility] [employer] [id number] 07/17/2023 [id number] / / [id number] Valve Berhane 3 Ultra 26mm - [id number] Implanted:Qty: 1 on 12/09/2022 by Manolo Millan MD at [facility] [employer] [id number] 12/04/2023 [id number] / / documented as of this encounter [...] patient have Health Care Power of Multimedia Project Manager? No Care Teams Mixing Tank Operator Relationship Specialty Start Date End Date David Umanzor MD [address] [facility] [place] [address] PCP - General 02/25/09 documented as of this encounter
--- OUTSIDE RECORDS SUMMARY | 2023-05-28 21:36 | External Medical Summary | Summary of Care ---
Author Name Unknown Organization [facility] Address [address] [place] [address] Phone [phone] Care Team Providers Care Camera Prototyping Engineer Name Role Phone David Umanzor MD Primary Care Provider [phone]- [phone] Reason for Visit * Reason Onset Date Comments Information 04/05/2023 Encounter Details Date Type Department Care Team (Late st Contact Info) Description 04/05/2023 Telephone [facility] [address] [place] [address] Services, Scheduling [address] [place] [address] Information (///) Allergies Active Allergy Reactions Criticality [...] 1 2 Active Blood Glucose Monitoring Suppl ([employer] AUTOCODE BLOOD GLUCOSE) w/Device KITIndications:DM type 2 causing neurological disease, not at goal ([facility]) Test blood sugar 4 times daily Dx: E11.9 1 Kit 0 9 Active PRODIGY LANCETS 28G MISCIndications:DM type 2, not at goal ([facility]) TEST BLOOD SUAGER 4 TIMES [...] hemoglobin A1c goal of less than 7.0% ([facility]),Type 2 diabetes mellitus with stage 3 chronic kidney disease, with long-term current use of insulin, unspecified whether stage 3a or 3b CKD ([facility]),DM type 2 causing neurological disease, not at goal ([facility]) TEST BLOOD SUGAR UP TO FOUR TIMES DAILY 400 Strip 3 2 Active Fluticasone Propionate 50 MCG/ACT Nasal Suspension (Flonase)Indications:Medical Billing Coder sanket rhinitis ADMINISTER 2 SPRAYS IN EACH [...] daily 400 Each 3 3 Active Creon 25937-63502 UNIT Oral Capsule Delayed Release Particles (Pancrelipase (Rjp-Oomj-Uzwt))Indicatio ns:Pancreatic insufficiency TAKE ONE CAPSULE BY MOUTH [...] bedtime. 2 mL 5 3 Active Nystatin 292068 UNIT/GM External Powder (Nystop) APPLY TO AFFECTED [...] TabletIndications:HFrEF (heart failure with reduced ejection fraction) ([facility]),Coronary artery disease involving [place] coronary artery of [place] heart without angina pectoris,Nonrheumatic aortic valve stenosis,Cardiac pacemaker in situ,Tachy-wilfrido syndrome ([facility]) Take 1 Tablet by mouth [...] coma, without long-term current use of insulin ([facility]) Inject 30 units daily 45 [...] combined systolic and diastolic congestive heart failure ([facility]) Take 1 Capsule by mouth [...] MG Oral TabletIndications: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 SUMMARY: Goal: Establish [...] contact study staff at ; after hours Commissary Manager via the [facility] tamper operator . Please contact study team before resolving/deleting from patients problem list. Study phone number: [phone]. Diagnosis changed due to Research Module. Go to Snapshot for study details. Encounter for examination fo r normal comparison and control in clinical research program 11/08/2018 12/10/2021 Overview: DO NOT DELETE - [facility] DETECT Study: Project # [id number], Commissary Manager: Kevin Pearce, MS, MPH. SUMMARY: Goal: [...] contact study staff at ; after hours Commissary Manager via the [facility] tamper operator . - Please contact study team before resolving/deleting from patients problem list. Study phone number: [phone]. Diagnosis changed due to Research Module. Go [...] TT request to find a different agency, [facility] declined [facility] [phone] f [phone] p Faxed HH order, pt ins/demo and supporting notes, awaiting determination They accepted referral with a SOC of 04/13/23, call to pt and she is aware and agreeable [facility] Call to their answering service to see if they cover [place], awaiting call back Per Santa, referral declined d/t not covering pt's zip code [place] [phone] f [phone] p Faxed HH order, pt ins/demo and supporting notes, awaiting determination Call back to [place] and cx referral [facility] [phone] f [phone] p Faxed HH order, pt ins/demo and supporting notes, awaiting determination Declined per von d/t staffing * Telephone Encounter - Orquidea Esquivel OSA - 04/05/2023 10:36 AM EST Request to f/u with [facility] on order for HH that was previously faxed, I called and per Maria [email or web address], nothing received so I faxed to them again this morning to [phone] at 1030 documented in this encounter Plan of Treatment Upcoming Encounters Date Type Department Care Team (Late st Contact Info) Description 04/13/2023 12:30 PM EST Home Visit [facility] [address] [address] Tatyana Delaney, RN [address] [address] 04/14/2023 3:00 PM EST Office Visit Cardiology, [facility] [address] [address] Wood Wong PA-C [address] [address] 04/21/2023 1:00 PM EST Cardiac Studies Cardiology, [facility] 132 [facility] [place] [address] [facility] 132 [facility] [place] [address] 04/22/2023 11:00 AM EST Office Visit Nephrology, [facility] [address] [place], [place] [address] Luz Tobias MD [address] [place] [address] 04/25/2023 1:20 PM EST Office Visit Family [facility], [place] [address] [place] [address] David Umanzor MD [address] [place] [address] 05/26/2023 2:00 PM EST Laboratory Laboratory, [place] [address] [place] [address] [facility] [address] [place] [address] 05/31/2023 1:30 PM EST Imaging Radiology [facility] 1st [facility] 132 [facility] [address] 06/07/2023 1:20 PM EST Office Visit Sleep Disorders [facility] 132 [facility] [phone] Vira Byrd DO [address] [facility] [place] [address] 08/01/2023 2:00 PM EDT Laboratory Laboratory, [place] [address] [place] [address] [place], Laboratory [address] [place] [address] 08/02/2023 2:00 PM EDT Office Visit Rheumatology [facility] [address] [facility] [place] [address] Eliot Castelan CRNP [address] [facility] [place] [address] 08/08/2023 12:30 PM EDT Office Visit Hematology/Oncology [facility] 200 [facility] [place] [address] Miguel A Alcantar MD 200 [facility] [place] [address] 03/07/2024 1:00 PM EST Office Visit Cardiology, [facility] 132 [facility] [place] [address] Manolo Millan MD [address] [place], [place] [id number] Scheduled Procedures Name Priority Associated Diagnoses Date/Ti [...] Additional history exists CKD PHOS USE SMARTSET 60406 12/02/202311/10, 08/06/2022, 08/21/2021, Additional history exists CKD HGB USE SMARTSET 00630 03/25/202403/25, 03/25/2023, 02/28/2023, Additional history exists DXA [...] this encounter Medical Devices Implanted Type Area Automated Weaver Device Identifier Shelf Expiration Date Model / Serial / Lot [employer] Embosphere Micrspheres Implanted:Qty: 2 on 11/02/2019 by Ish Grove MD at [facility] Right: Abdomen [employer] 05/11/2022 S220GH / S220GH / [id number] Syr Pf 2ml Embospheres 100-300 - [id number] Implanted:Qty: 1 on 11/14/2020 at [facility] [employer] [id number] 08/22/2023 S220GH / / [id number] Envelope Antibacterial Tyrx - [id number] Implanted:Qty: 1 on 12/29/2021 by Fatoumata Roland DO at OR [facility] [employer] : CRM [id number] 09/23/2022 CMR M6122 / / [id number] Stent Synergy Xd Mr 3.05m54xa - [id number] Implanted:Qty: 1 on 03/22/2022 by Katalina Pearce MD [place] [facility] [employer] [id number] 07/17/2023 [id number] / / [id number] Valve Berhane 3 Ultra 26mm - [id number] Implanted:Qty: 1 on 12/09/2022 by Manolo Millan MD at [facility] [employer] [id number] 12/04/2023 [id number] / / documented as of this encounter [...] patient have Health Care Power of Salesperson Used Cars? No Care Teams Camera Prototyping Engineer Relationship Specialty Start Date End Date David Umanzor MD [address] [facility] [place] [id number] PCP - General 02/25/09 documented as of this encounter
--- OUTSIDE RECORDS SUMMARY | 2023-05-28 21:37 | External Medical Summary | Summary of Care ---
Author Name Unknown Organization [facility] Address [address] [place] [address] Phone [phone] Care Team Providers Care Geophysical E Logger Name Role Phone David Umanzor MD Primary Care Provider [phone]- [phone] Reason for Visit * Reason Onset Date Comments Information 04/05/2023 Encounter Details Date Type Department Care Team (Late st Contact Info) Description 04/05/2023 Telephone [facility] [place] [address] [place] [address] Services, Scheduling [address] [place] [address] Information (///) Allergies Active Allergy Reactions Criticality Noted Date Comments Bactrim 02/09/2010 Cephalosporins Anaphylaxis,Edema face/lips/tongue High 04/11/2009 Anaphylaxis to cefaclor, facial swelling to cephalexin. Ciprofloxacin Low 03/30/2021 Other reaction(s): Nausea Butorphanol Tartrate 02/09/2010 Heart racing Sulfa Antibiotics Hives High 05/22/2002 Other reaction(s): Hives Trimethoprim 04/15/2022 Other reaction(s): Hives documented as of this encounter (statuses as of 04/05/2023) Medications Medication Sig Dispensed Refills Start Date [...] 1 2 Active Blood Glucose Monitoring Suppl (Superplayer AUTOCODE BLOOD GLUCOSE) w/Device KITIndications:DM type 2 [...] Active Fluticasone Propionate 50 MCG/ACT Nasal Suspension (Flonase)Indications:Food And Beverage Service Manager sanket rhinitis ADMINISTER 2 SPRAYS IN [...] daily 400 Each 3 3 Active Creon 87675-16080 UNIT Oral Capsule Delayed Release Particles (Pancrelipase (Tdc-Nfoh-Cpla))Indicatio ns:Pancreatic insufficiency TAKE ONE CAPSULE BY MOUTH [...] bedtime. 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 45 Tablet 0 3 Active documented as of this encounter (statuses as of 04/05/2023) Active Problems Problem Noted Date Diagnosed Date [...] to excess calories 0 08/09/2022 Atherosclerosis of [place] ar jania of left lower extremity with intermittent claudication 08/09/2022 Coronary artery disease invo lving [place] coronary artery of [place] heart with angina pectoris 03/22/2022 Last Assessment [...] 12/21/2016 Overview: Diabetic retinopathy Rheumatoid arthritis of [facility] sites without rheumatoid factor 01/26/2016 Last [...] as of this encounter (statuses as of 04/05/2023) Resolved Problems Problem Noted Date Diagnosed Date [...] DELETE [facility] DETECT Study: Project # [id number], Finishing Machine Operator: Manny Santacruz, PhD. SUMMARY: Goal: [...] contact study staff at ; after hours Finishing Machine Operator via the [facility] weaving loom operator . Please contact study team before resolving/deleting from patients problem list. Study phone number: [phone]. Diagnosis changed due to Research Module. Go to Snapshot for study details. Encounter for examination fo r normal comparison and control in clinical research program 11/08/2018 12/10/2021 Overview: DO NOT DELETE - [facility] DETECT Study: Project # [id number], Finishing Machine Operator: Kevin Pearce, MS, MPH. SUMMARY: [...] contact study staff at ; after hours Finishing Machine Operator via the [facility] weaving loom operator . - Please contact study team before resolving/deleting from patients problem list. Study phone number: [phone]. Diagnosis changed due to Research Module. Go [...] as of this encounter (statuses as of 04/05/2023) Immunizations Name Administration Dates Next Due COVID-19 [...] encounter Miscellaneous Notes * Telephone Encounter - Orquidea Esquivel OSA - 04/05/2023 10:36 AM EST Request to f/u with [facility] on order for HH that was previously faxed, I called and per [email or web address], nothing received so I faxed to them again this morning to [phone] at 1030 documented in this encounter Plan of Treatment Upcoming Encounters Date Type Department Care Team (Late st Contact Info) Description 04/13/2023 12:30 PM EST Home Visit [facility] [place], [facility] [place] [address] Tatyana Delaney, RN [address] [place] [address] 04/14/2023 3:00 PM EST Office Visit Cardiology, [facility] 132 [facility] [place] [address] Wood Wong PA-C 132 [place] [address] 04/21/2023 1:00 PM EST Cardiac Studies Cardiology, [facility] 132 [facility] [place] [address] Adam Marx [facility] 132 [facility] [address] 04/22/2023 11:00 AM EST Office Visit Nephrology, [facility] [address] [place], [place] [address] Luz Tobias MD [address] [place], [place] [address] 04/25/2023 1:20 PM EST Office Visit [facility] [address] [place] [phone] David Umanzor MD [address] [place] [address] 05/26/2023 2:00 PM EST Laboratory Laboratory, [place] [address] [place] [address] [facility] [address] [place] [address] 05/31/2023 1:30 PM EST Imaging Radiology [facility] 1st [facility] 132 [facility], [place] [address] 06/07/2023 1:20 PM EST Office Visit [facility] Disorders Ctr [facility] [address] [place] [phone] Vira Byrd DO 132 [place] [address] 08/01/2023 2:00 PM EDT Laboratory Laboratory, [place] [address] [place] [address] [facility] [address] [place] [address] 08/02/2023 2:00 PM EDT Office Visit Rheumatology [facility] [address] [facility] [place], [place] [address] Eliot Castelan CRNP [facility]0 [facility] [place], [place] [address] 08/08/2023 12:30 PM EDT Office Visit [facility]ology[facility] [address] [place], [place] [address] Miguel A Alcantar MD [address] [place], [place] [address] 03/07/2024 1:00 PM EST Office Visit Cardiology, [facility] 132 [facility] [address] Manolo Millan MD [address] [place] [address] Scheduled Procedures Name Priority Associated Diagnoses Date/Ti [...] Additional history exists CKD PHOS USE SMARTSET 25385 12/02/2023 0806/2022, 08/06/2022, 08/21/2021, Additional history exists CKD HGB USE SMARTSET 40961 03/25/202403/25, 03/25/2023, 02/28/2023, Additional history exists DXA [...] this encounter Medical Devices Implanted Type Area Hospital Coder Device Identifier Shelf Expiration Date Model / Serial / Lot Brandicted Medical Embosphere Micrspheres Implanted:Qty: 2 on 11/02/2019 by Ish Grove MD at [facility] Right: Abdomen [employer] 05/11/2022 S220GH / [id number] / [id number] Syr Pf 2ml Embospheres 100-300 - [id number] Implanted:Qty: 1 on 11/14/2020 at [facility] [employer] [id number] 08/22/2023 S220GH / / [id number] Envelope Antibacterial Tyrx - [id number] Implanted:Qty: 1 on 12/29/2021 by Fatoumata Roland DO at [facility] [employer] : CRM [id number] 09/23/2022 CMR [id number] / / [id number] Stent Synergy Xd Mr 3.73v68jd - [id number] Implanted:Qty: 1 on 03/22/2022 by Katalina Pearce MD at [facility]S [facility] [employer] [id number] 07/17/2023 [id number] / / [id number] Valve Berhane 3 Ultra 26mm - [id number] Implanted:Qty: 1 on 12/09/2022 by Manolo Millan MD at [facility] [employer] [id number] 12/04/2023 [id number] / / documented as of this encounter [...] the patient have Health Care Power of Physical Education Professor? No Care Teams Geophysical E Logger Relationship Specialty Start Date End Date David Umanzor MD [address] [place] [address] PCP - General 02/25/09 documented as of this encounter
--- OUTSIDE RECORDS SUMMARY | 2023-05-28 21:37 | External Medical Summary | Summary of Care ---
Author Name Unknown Organization [facility] [address] [facility] [address] Phone [phone] Care Team Providers Care Manager Product Marketing Name Role Phone David Umanzor MD Primary Care Provider +1- [phone] Reason for Visit * Reason Onset Date Comments [facility]: Maintenance 04/05/2023 Encounter Details Date Type Department Care Team (Late st Contact Info) Description 04/05/2023 Telephone [facility], [facility] 132 [facility] [place] [address] [facility], Nurse [facility] 132 [place] [address] [facility]: Maintenance Allergies Active Allergy [...] Active Fluticasone Propionate 50 MCG/ACT Nasal Suspension (Flonase)Indications: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 2 mL 5 3 Active Nystatin 269755 UNIT/GM External Powder (Nystop) APPLY TO AFFECTED [...] ([facility]),Coronary artery disease involving [place] coronary artery [...] Active Gabapentin 300 MG Oral Capsule (Neurontin)Indications:Ac [place] on chronic combined systolic and diastolic congestive heart failure ([facility]) Take 1 Capsule by mouth [...] [facility] sites without rheumatoid factor 01/26/2016 Last Assessment [...] [facility] DETECT Study: Project # [id number], Senior Ssis Developer: Manny Santacruz, PhD. SUMMARY: Goal: Establish test [...] study staff at ; after hours Senior Ssis Developer via the [facility] pole peeling machine operator . Please contact study team before resolving/deleting from patients problem list. Study phone number: [phone]. Diagnosis changed due to Research Module. Go to Snapshot for study details. Encounter for examination fo r normal comparison and control in clinical research program 11/08/2018 12/10/2021 Overview: DO NOT DELETE - [facility] Study: Project # [id number], Senior Ssis Developer: Kevin Pearce, MS, MPH. SUMMARY: Goal: Establish [...] study staff at ; after hours Senior Ssis Developer via the [facility] hospital pole peeling machine operator . - Please contact study team before resolving/deleting from patients problem list. Study phone number: [phone]. Diagnosis changed due to Research Module. Go [...] order was refaxed today 04/05/23 per notes [place] following DME for adult briefs---accepted by [facility] ([phone]). Spoke to Jacqueline they did not have patient size in stock and had to order they will reach out to patient once they receive the product to set up delivery Dexcom sensors--home care delivered ([phone]) Per patient she has no dexcom sensors to complete the sensor change tonight PC to home care delivered they stated they faxed pt records back on 04/04/23 to [phone] (PCP fax). Per home care delivered they were faxed 4 x with no response from PCP office They need records signed and dated by provider before they can ship sensors I requested they fax request to [facility] for provider signature and date To fax [phone]. They are faxing over today Cintia can you please keep your eye out for these records and send then to Kwame Noble to sign and date if he is agreeable Teams also sent to cintia Patient aware of above. Provided patient with [facility] number also Will follow up on receipt of records tomorrow Fany Luis RN, BSN [facility] waterworks pump station operatorChip Separator documented in this encounter Plan of Treatment Upcoming Encounters Date Type Department Care Team (Late st Contact Info) Description 04/13/2023 12:30 PM EST [facility] [address] [place] [address] Tatyana Delaney, RN [address] [place] [address] 04/14/2023 3:00 PM EST Office Visit Cardiology, [facility] [address] [place] [address] Wood Lama PA-C [address] [place] [address] 04/21/2023 1:00 PM EST Cardiac Studies Cardiology, [facility] 132 [facility] [place] [address] [place] 132 [facility] [place] [address] 04/22/2023 11:00 AM EST Office Visit Nephrology, [facility] 200 [facility] [place] [address] Luz Tobias MD [address] [facility] [place] [address] 04/25/2023 1:20 PM EST Office Visit Family [facility], [place] [address] [place] [address] David Umanzor MD [address] [place] [address] 05/26/2023 2:00 PM EST Laboratory Laboratory, [place] [address] [place] [address] [facility] [address] [place] [address] 05/31/2023 1:30 PM EST Imaging Radiology [facility] 1st [facility] 132 [facility] [place] [address] 06/07/2023 1:20 PM EST Office Visit Sleep Disorders Ctr [facility] 132 [facility] [place] [phone] Vira Byrd DO [address] [place] [address] 08/01/2023 2:00 PM EDT Laboratory Laboratory, [place] [address] [place] [address] [place], Laboratory [address] [place] [address] 08/02/2023 2:00 PM EDT Office Visit Rheumatology [facility] [address] [facility] [place] [address] Eliot Castelan CRNP [address] [facility] [place] [address] 08/08/2023 12:30 PM EDT Office Visit Hematology/Oncology [facility] [address] [place] [address] Miguel A Alcantar MD [address] [place] [address] 03/07/2024 1:00 PM EST Office Visit Cardiology, [facility] [address] [place] [address] Manolo Millan MD [address] [place] [address] Scheduled Procedures Name Priority Associated [...] Additional history exists CKD PHOS USE SMARTSET 14306 12/02/202311/10, 08/06/2022, 08/21/2021, Additional history exists CKD HGB USE SMARTSET 53760 03/25/202403/25, 03/25/2023, 02/28/2023, Additional history exists DXA [...] this encounter Medical Devices Implanted Type Area Hull Grinder Device Identifier Shelf Expiration Date Model / Serial / Lot Merit Medical Embosphere Micrspheres Implanted:Qty: 2 on 11/02/2019 by Ish Grove MD at [facility] Right: Abdomen [facility] [employer] 05/11/2022 S220GH / S220GH / [id number] Syr Pf 2ml Embospheres 100-300 - [id number] Implanted:Qty: 1 on 11/14/2020 at [facility] [employer] [id number] 08/22/2023 S220GH / / [id number] Envelope Antibacterial Tyrx - [id number] Implanted:Qty: 1 on 12/29/2021 by Fatoumata Roland DO at [facility] [employer] : CRM [id number] 09/23/2022 CMR M6122 / / [id number] Stent Synergy Xd Mr 3.29t77lu - [id number] Implanted:Qty: 1 on 03/22/2022 by Katalina Pearce MD at [facility] [employer] [id number] 07/17/2023 [id number] / / [id number] Valve Berhane 3 Ultra 26mm - [id number] Implanted:Qty: 1 on 12/09/2022 by Manolo Millan MD at [facility] [employer] [id number] 12/04/2023 [id number] / / documented as of this encounter [...] the patient have Health Care Power of Energy Efficiency Specialist? No Care Teams Manager Product Marketing Relationship Specialty Start Date End Date David Umanzor MD [address] [place] [address] PCP - General 02/25/09 documented as of this encounter
--- OUTSIDE RECORDS SUMMARY | 2023-05-28 21:37 | External Medical Summary | Summary of Care ---
Author Name Unknown Organization [facility] Address [address] [place] [address] Phone [phone] Care Team Providers Care Night Supervisor Name Role Phone David Umanzor MD Primary Care Provider [phone]- [phone] Reason for Visit * Reason Onset Date Comments Fax 03/24/2023 [facility] red/ glucose monitor Vaen called from [facility]. Encounter Details Date Type Department Care Team (Late st Contact Info) Description 03/24/2023 Telephone [facility] [address] [place] [address] David Umanzor MD [address] [place] [address] Fax ([facility]/ glucose [...] 1 2 Active Blood Glucose Monitoring Suppl ([employer] AUTOCODE BLOOD GLUCOSE) w/Device KITIndications:DM type 2 [...] daily 400 Each 3 3 Active Creon 61098-43082 UNIT Oral Capsule Delayed Release Particles (Pancrelipase (Uki-Ocej-Hpig))Indicati ons:Pancreatic insufficiency TAKE ONE CAPSULE BY MOUTH [...] bedtime. 2 mL 5 3 Active Nystatin 988297 UNIT/GM External Powder (Nystop) APPLY TO AFFECTED AREAS UNDER THE BREASTS THREE TIMES PER DAY NEEDED 30 g 1 3 Active NovoLOG FlexPen 100 UNIT/ML Subcutaneous Solution Pen-injector (insulin aspart)Indications:Type 2 diabetes mellitus with hyperosmolarity without coma, without long-term current use of insulin ([facility]) Inject 10 units with breakfast, 4 units with lunch, and 10 units with PM meal. Inject 4 units if BG is >200. 30 mL 5 3 Active Acetaminophen 500 MG Oral TabletIndications:HFrEF (heart failure with reduced ejection fraction) ([facility]),Coronary artery disease involving [place] coronary artery of [place] heart without angina pectoris,Nonrheumatic aortic valve stenosis,Cardiac [...] n 5-325 MG Oral TabletIndications:Athero sclerosis of [place] artery of left lower extremity with intermittent [...] to excess calories 0 08/09/2022 Atherosclerosis of [place] ar jania of left lower extremity with intermittent claudication 08/09/2022 Coronary artery disease invo lving [place] coronary artery of [place] heart with angina pectoris 03/22/2022 Last Assessment [...] Overview: Diabetic retinopathy Rheumatoid arthritis of [facility] sites without rheumatoid factor [...] DELETE [facility] DETECT Study: Project # [id number], Metal Sprayer Protective Coating: Manny Santacruz, PhD. SUMMARY: Goal: Establish test [...] contact study staff at ; after hours Metal Sprayer Protective Coating via the [facility] hospital trimmer operator . Please contact study team before resolving/deleting from patients problem list. Study phone number: [phone]. Diagnosis changed due to Research Module. Go to Snapshot for study details. Encounter for examination fo r normal comparison and control in clinical research program 11/08/2018 12/10/2021 Overview: DO NOT DELETE - [facility] Study: Project # [id number], Metal Sprayer Protective Coating: Kevin Pearce MS, MPH. SUMMARY: Goal: Establish [...] contact study staff at ; after hours Metal Sprayer Protective Coating via the [facility] trimmer operator . - Please contact study team before resolving/deleting from patients problem list. Study phone number: [phone]. Diagnosis changed due to Research Module. Go [...] Miscellaneous Notes * Telephone Encounter - Nadeen Addison OSA - 04/05/2023 12:30 PM EST Patient states that [facility] has not received the information that is needed. Patient states that she needs to change her Dexcom sensor today and has no sensors. Patient would like to speak with and would like to be contacted at [phone]. * Telephone Encounter - Nallely Tompkins LPN [...] electronic signature. Fax it back then to [phone] * Telephone Encounter - Lizz Arteaga LPN - 03/24/2023 3:48 PM EST OV notes faxed 03/24/2023 * Telephone Encounter - Dorothy Gonzalez OSA - 03/24/2023 9:32 AM EST Caller requesting the following information to be faxed: Name/Company of caller: [facility] Information requested to be faxed: most recent office note related to diabetes Fax number: [phone] Attention to Name/Company: Any additional information?: re: diabetic glucose monitor ordered 8.16.23 documented in this encounter Plan of Treatment Upcoming Encounters Date Type Department Care Team (Late st Contact Info) Description 04/13/2023 12:30 PM EST [facility] [address] [place] [address] Tatyana Delaney RN [address] [place] [address] 04/14/2023 3:00 PM EST Office Visit Cardiology, [facility] [address] [place] [address] Wood Wong PAMirandaC [address] [place] [address] 04/21/2023 1:00 PM EST Cardiac Studies Cardiology, [facility] [address] [place] [address] [place], Pac[facility] [address] [place] [address] 04/22/2023 11:00 AM EST Office Visit Nephrology, [facility]hael Marquez [address] [place] [address] Luz Tobias MD [address] [place] [address] 04/25/2023 1:20 PM EST Office Visit Family [facility], [place] [address] [facility], [place] [address] David Umanzor MD [address] [facility], [place] [address] 05/26/2023 2:00 PM EST Laboratory Laboratory, [place] [address] [place] [facility] [address] [facility] [address] [place] [facility] [place] [address] 05/31/2023 1:30 PM EST Imaging Radiology [address] [facility] [place] [address] 06/07/2023 1:20 PM EST Office Visit Sleep Disorders Ctr [facility] [address] [place] [id number] Vira Byrd, [address] [place] [address] 08/01/2023 2:00 PM EDT Laboratory Laboratory, [place] [address] [facility] [address] [facility] [address] [place] [facility] [address] 08/02/2023 2:00 PM EDT Office Visit Rheumatology [facility] [address] [facility] [place] [address] Eliot Castelan CRNP [address] [facility] [place] [address] 08/08/2023 12:30 PM EDT Office Visit Hematology/Oncology [facility] [place] [address] [facility] [place] [address] Miguel A Alcantar MD [address] [place] [address] 03/07/2024 1:00 PM EST Office Visit Cardiology, [facility] [address] [place] [address] Manolo Millan MD [address] [facility] [place] [address] Scheduled Procedures Name Priority Associated Diagnoses Date/Ti [...] Additional history exists CKD PHOS USE SMARTSET 08934 12/02/202311/10, 08/06/2022, 08/21/2021, Additional history exists CKD HGB USE SMARTSET 13036 03/25/202403/25, 03/25/2023, 02/28/2023, Additional history exists DXA [...] this encounter Medical Devices Implanted Type Area Panelboard Tank Pumper Device Identifier Shelf Expiration Date Model / Serial / Lot [employer] Software Medical Embosphere Micrspheres Implanted:Qty: 2 on 11/02/2019 by Ish Grove MD at [facility] Right: Abdomen [employer] 05/11/2022 S220GH / [id number] / [id number] Syr Pf 2ml Embospheres 100-300 - [id number] Implanted:Qty: 1 on 11/14/2020 at [facility] [employer] [id number] 08/22/2023 S220GH / / [id number] Envelope Antibacterial Tyrx - [id number] Implanted:Qty: 1 on 12/29/2021 by Fatoumata Roland DO at [facility] [employer] : CRM [id number] 09/23/2022 CMR [id number] / / [id number] Stent Synergy Xd Mr 3.66m67ve - [id number] Implanted:Qty: 1 on 03/22/2022 by Katalina Pearce MD at [facility] [employer] [id number] 07/17/2023 [id number] / / [id number] Valve Berhane 3 Ultra 26mm - [id number] Implanted:Qty: 1 on 12/09/2022 by Manolo Millan MD at [facility] [employer] [id number] 12/04/2023 [id number] / / documented as of this encounter [...] the patient have Health Care Power of Snow Ranger? No Care Teams Night Supervisor Relationship Specialty Start Date End Date David Umanzor MD [address] [place] [address] PCP - General 02/25/09 documented as of this encounter
--- OUTSIDE RECORDS SUMMARY | 2023-05-28 21:37 | External Medical Summary | Summary of Care ---
Author Name Unknown Organization [facility] Address [address] [place] [address] Phone [phone] Care Team Providers Care Loss Control Consultant Name Role Phone David Umanzor MD Primary Care Provider [phone]- [phone] Reason for Visit * Reason Onset Date Comments Information 04/05/2023 Encounter Details Date Type Department Care Team (Late st Contact Info) Description 04/05/2023 Telephone [facility] [place] [address] [place] [address] Services, Scheduling [address] [place] [address] Information (///) Allergies Active Allergy Reactions Criticality [...] 1 2 Active Blood Glucose Monitoring Suppl ([employer] AUTOCODE BLOOD GLUCOSE) w/Device KITIndications:DM type 2 causing neurological disease, not at goal ([facility]) Test blood sugar 4 times daily Dx: E11.9 1 Kit 0 9 Active PRODIGY LANCETS 28G MISCIndications:DM type 2, not at goal ([facility]) TEST BLOOD SUAGER 4 TIMES [...] A1c goal of less than 7.0% ([facility]),Type 2 diabetes mellitus with stage 3 chronic kidney disease, with long-term current use of insulin, unspecified whether stage 3a or 3b CKD ([facility]),DM type 2 causing neurological disease, not at goal ([facility]) TEST BLOOD SUGAR UP TO FOUR TIMES DAILY 400 Strip 3 2 Active Fluticasone Propionate 50 MCG/ACT Nasal Suspension (Flonase)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 2 mL 5 3 Active Nystatin 173804 UNIT/GM External Powder (Nystop) APPLY TO AFFECTED [...] (heart failure with reduced ejection fraction) ([facility]),Coronary artery disease involving [place] coronary artery of [place] heart without angina pectoris,Nonrheumatic aortic valve stenosis,Cardiac pacemaker in situ,Tachy-wilfrido syndrome ([facility]) Take 1 Tablet by mouth [...] without long-term current use of insulin ([facility]) Inject 30 units daily 45 [...] systolic and diastolic congestive heart failure ([facility]) Take 1 Capsule by mouth [...] 12/21/2016 Overview: Diabetic retinopathy Rheumatoid arthritis of [facility] sites without rheumatoid factor 01/26/2016 Last [...] DELETE [facility] DETECT Study: Project # [id number], District Manager: Manny Santacruz, PhD. SUMMARY: Goal: Establish [...] contact study staff at ; after hours District Manager via the [facility] grinding mill operator . Please contact study team before resolving/deleting from patients problem list. Study phone number: [phone]. Diagnosis changed due to Research Module. Go to Snapshot for study details. Encounter for examination fo r normal comparison and control in clinical research program 11/08/2018 12/10/2021 Overview: DO NOT DELETE - [facility] DETECT Study: Project # [id number], District Manager: Kevin Pearce, MS, MPH. SUMMARY: Goal: [...] contact study staff at ; after hours District Manager via the [facility] grinding mill operator . - Please contact study team before resolving/deleting from patients problem list. Study phone number: [phone]. Diagnosis changed due to Research Module. Go [...] TT request to find a different agency, [facility] declined A/[facility] [phone] f [phone] p Faxed HH order, pt ins/demo and supporting notes, awaiting determination [facility] Call to their answering service to see if they cover [place], awaiting call back * Telephone Encounter - Orquidea Esquivel OSA - 04/05/2023 10:36 AM EST Request to f/u with [facility] on order for HH that was previously faxed, I called and per Maria [email or web address], nothing received so I faxed to them again this morning to [phone] at 1030 documented in this encounter Plan of Treatment Upcoming Encounters Date Type Department Care Team (Late st Contact Info) Description 04/13/2023 12:30 PM EST Home Visit [facility] [place], [facility] [address] [place] [address] Tatyana Delaney, RN [address] [place] [address] 04/14/2023 3:00 PM EST Office Visit Cardiology, [facility] [address] [place] [address] Wood Wong PA-C [address] [place] [address] 04/21/2023 1:00 PM EST Cardiac Studies Cardiology, [facility] [address] [place] [address] [facility] [address] [place] [address] 04/22/2023 11:00 AM EST Office Visit Nephrology, [address] [place] [address] Luz Tobias MD [address] [facility] [place], [place] [address] 04/25/2023 1:20 PM EST Office Visit Family [facility], [place] [address] [place] [facility] [address] David Umanzor MD [address] [place] [address] 05/26/2023 2:00 PM EST Laboratory Laboratory, [place] [address] [place] [address] [facility] [address] [place] [address] 05/31/2023 1:30 PM EST Imaging Radiology [address] [place] [id number] 06/07/2023 1:20 PM EST Office Visit Sleep Disorders Ctr [facility] [address] [place] [id number] Vira Byrd, 132 [place] [address] 08/01/2023 2:00 PM EDT Laboratory Laboratory, [place] [address] [place] [address] [facility] [address] [place] [address] 08/02/2023 2:00 PM EDT Office Visit Rheumatology [place] [id number] [facility] [place], [place] [address] Eliot Castelan CRNP [facility] [facility] [place], [place] [address] 08/08/2023 12:30 PM EDT Office Visit Hematology/Oncology [facility] [address] [facility] [place] [address] Miguel A Alcantar MD [address] [facility] [place] [address] 03/07/2024 1:00 PM EST Office Visit Cardiology, [facility] [address] [facility] [place] [address] Manolo Millan MD [address] [place] [address] Scheduled Procedures Name Priority Associated [...] 06/23/2020, Additional history exists HbA1c 02/05/2023 08/06/2022, 010 06/2022, 02/12/2022, Additional history exists TSH 04/13/2023 04/13/2022, 020 05/2021, 06/02/2020, Additional history exists Diabetic Eye Exam 05/27/2023 05/27/2022, , 05/27/2022, Additional history exists Mammogram 07/28/2023 07/27/2022, 0404/2021, 01/09/2019, Additional history exists Albumin/Creatinine Ratio 09/08/2023 023, 08/06/2022, 05/13/2021, Additional history exists GFR 09/23/2023 03/24/2023, 02/10, 02/17/2023, Additional history exists CKD PHOS USE SMARTSET 05711 12/02/202311/10, 08/06/2022, 08/21/2021, Additional history exists CKD HGB USE SMARTSET 39347 03/25/202403/25, 03/25/2023, 02/28/2023, Additional history exists DXA [...] this encounter Medical Devices Implanted Type Area Farm General Manager Device Identifier Shelf Expiration Date Model / Serial / Lot Eloqua Embosphere Micrspheres Implanted:Qty: 2 on 11/02/2019 by Ish Grove MD at [facility] Right: Abdomen [employer] 05/11/2022 S220GH / S220GH / [id number] Syr Pf 2ml Embospheres 100-300 - [id number] Implanted:Qty: 1 on 11/14/2020 at [facility] [employer] [id number] 08/22/2023 S220GH / / [id number] Envelope Antibacterial Tyrx - [id number] Implanted:Qty: 1 on 12/29/2021 by Fatoumata Roland DO at OR [facility] [employer] : CRM [id number] 09/23/2022 CMR M6122 / / [id number] Stent Synergy Xd Mr 3.97v51ly - [id number] Implanted:Qty: 1 on 03/22/2022 by Katalina Pearce MD at [facility] [employer] [id number] 07/17/2023 [id number] / / [id number] Valve Berhane 3 Ultra 26mm - [id number] Implanted:Qty: 1 on 12/09/2022 by Manolo Millan MD at [facility] [employer] [id number] 12/04/2023 [id number] / / documented as of this encounter [...] the patient have Health Care Power of Commercial Representative? No Care Teams Loss Control Consultant Relationship Specialty Start Date End Date David Umanzor MD [address] [place] [address] PCP - General 02/25/09 documented as of this encounter
--- OUTSIDE RECORDS SUMMARY | 2023-05-28 21:37 | External Medical Summary | Summary of Care ---
Author Name Unknown Organization [facility] Address [address] [place] [address] Phone [phone] Care Team Providers Care Artificial Cherry Maker Name Role Phone David Umanzor MD Primary Care Provider +1- [phone] Reason for Visit * Reason Onset Date Comments Fax 03/24/2023 Home Care Delive red/ glucose monitor Vane called from Home Care [facility]ivered. Encounter Details Date Type Department Care Team (Late st Contact Info) Description 03/24/2023 Telephone [facility] [address] [place] [address] David Umanzor MD [address] [place] [address] Fax (Home Care Delivered/ glucose [...] 1 2 Active Blood Glucose Monitoring Suppl ([employer] AUTOCODE BLOOD GLUCOSE) w/Device KITIndications:DM type 2 [...] daily 400 Each 3 3 Active Creon 93015-54127 UNIT Oral Capsule Delayed Release Particles (Pancrelipase (Nfb-Xfqn-Lzjq))Indicati ons:Pancreatic insufficiency TAKE ONE CAPSULE BY MOUTH [...] bedtime. 2 mL 5 3 Active Nystatin 935496 UNIT/GM External Powder (Nystop) APPLY TO AFFECTED [...] [facility]),Coronary artery disease involving modoc coronary artery of modoc heart without angina pectoris,Nonrheumatic aortic valve stenosis,Cardiac [...] n 5-325 MG Oral TabletIndications:Athero sclerosis of modoc artery of left lower extremity with intermittent [...] to excess calories 0 08/09/2022 Atherosclerosis of modoc ar jania of left lower extremity with intermittent claudication 08/09/2022 Coronary artery disease invo lving modoc coronary artery of modoc heart with angina pectoris 03/22/2022 Last Assessment [...] 12/21/2016 Overview: Diabetic retinopathy Rheumatoid arthritis of [facility] sites without rheumatoid factor 01/26/2016 [...] [facility] DETECT Study: Project # [id number], Administrative Processor: Manny Santacruz, PhD. SUMMARY: Goal: Establish test [...] contact study staff at ; after hours Administrative Processor via the [facility] bucket wash operator . Please contact study team before resolving/deleting from patients problem list. Study phone number: [phone]. Diagnosis changed due to Research Module. Go to Snapshot for study details. Encounter for examination fo r normal comparison and control in clinical research program 11/08/2018 12/10/2021 Overview: DO NOT DELETE - [facility] Study: Project # [id number], Administrative Processor: Kevin Pearce MS, MPH. SUMMARY: Goal: Establish [...] contact study staff at ; after hours Administrative Processor via the [facility] bucket wash operator . - Please contact study team before resolving/deleting from patients problem list. Study phone number: [phone]. Diagnosis changed due to Research Module. Go [...] and would like to be contacted at [phone]. * Telephone Encounter - Nallely Tompkins LPN [...] electronic signature. Fax it back then to [phone] * Telephone Encounter - Lizz Arteaga LPN - 03/24/2023 3:48 PM EST OV notes faxed 03/24/2023 * Telephone Encounter - Dorothy Gonzalez OSA - 03/24/2023 9:32 AM EST Caller requesting the following information to be faxed: Name/Company of caller: [facility] Information requested to be faxed: most recent office note related to diabetes Fax number: [phone] Attention to Name/Company: Any additional information?: re: diabetic glucose monitor ordered 8.16.23 documented in this encounter Plan of Treatment Upcoming Encounters Date Type Department Care Team (Late st Contact Info) Description 04/13/2023 12:30 PM EST [facility] [address] [place] [address] Tatyana Delaney RN [address] [place] [address] 04/14/2023 3:00 PM EST Office Visit Cardiology, [facility] [address] [place] [address] Wood Wong PAMirandaC [address] [place] [address] 04/21/2023 1:00 PM EST Cardiac Studies Cardiology, [facility] [address] [place] [address] [place], [facility] [address] [place] [address] 04/22/2023 11:00 AM EST Office Visit Nephrology, Raphael Marquez [address] [place] [address] Luz Tobias MD [address] [place] [address] 04/25/2023 1:20 PM EST Office Visit Family [facility] [place] [address] [facility], [place] [address] David Umanzor MD [address] [facility], [place] [address] 05/26/2023 2:00 PM EST Laboratory Laboratory, [place] [address] [place] [facility] [address] [facility] [address] [place] [address] 05/31/2023 1:30 PM EST Imaging Radiology [address] 132 [place] [address] 06/07/2023 1:20 PM EST Office Visit Sleep Disorders Ctr [facility] 132 [place] [address] Vira Byrd, 132 [place] [address] 08/01/2023 2:00 PM EDT Laboratory Laboratory, [place] [address] [facility] [address] [facility] [address] [place] [facility] [place] [address] 08/02/2023 2:00 PM EDT Office Visit Rheumatology [facility] [address] [place] [address] Eliot Castelan CRNP [address] [facility] [place] [address] 08/08/2023 12:30 PM EDT Office Visit Hematology/Oncology [facility] [place] 200 [facility] [place] [address] Miguel A Alcantar MD [address] [place] [address] 03/07/2024 1:00 PM EST Office Visit Cardiology, [facility] [address] [place] [address] Manolo Millan MD [address] [facility] [place] [address] Scheduled Procedures Name Priority Associated Diagnoses Date/Ti [...] Additional history exists CKD PHOS USE SMARTSET 53900 12/02/202311/10, 08/06/2022, 08/21/2021, Additional history exists CKD HGB USE SMARTSET 43355 03/25/202403/25, 03/25/2023, 02/28/2023, Additional history exists DXA [...] this encounter Medical Devices Implanted Type Area Student Success Coach Device Identifier Shelf Expiration Date Model / Serial / Lot Mad Mimi Medical Embosphere Micrspheres Implanted:Qty: 2 on 11/02/2019 by Ish Grove MD at [facility] Right: Abdomen [employer] 05/11/2022 S220GH / S220GH / [id number] Syr Pf 2ml Embospheres 100-300 - [id number] Implanted:Qty: 1 on 11/14/2020 at [facility] [employer] [id number] 08/22/2023 S220GH / / [id number] Envelope Antibacterial Tyrx - [id number] Implanted:Qty: 1 on 12/29/2021 by Fatoumata Roland DO at OR [facility] [employer] : CRM [id number] 09/23/2022 CMR [id number] / / [id number] Stent Synergy Xd Mr 3.30d50it - [id number] Implanted:Qty: 1 on 03/22/2022 by Katalina Pearce MD at [facility] [employer] [id number] 07/17/2023 [id number] / / [id number] Valve Berhane 3 Ultra 26mm - [id number] Implanted:Qty: 1 on 12/09/2022 by Manolo Millan MD at [facility] [employer] [id number] 12/04/2023 [id number] / / documented as of this encounter [...] the patient have Health Care Power of In Home Caregiver? No Care Teams Artificial Cherry Maker Relationship Specialty Start Date End Date David Umanzor MD [address] [place] [address] PCP - General 02/25/09 documented as of this encounter
--- OUTSIDE RECORDS SUMMARY | 2023-05-28 21:37 | External Medical Summary | Summary of Care ---
Author Name Unknown Organization [facility] Address [address] [place] [address] Phone [phone] Care Team Providers Care Admin Secretary Name Role Phone David Umanzor MD Primary Care Provider +1- [phone] Reason for Visit * Reason Onset Date Comments Information 04/05/2023 Encounter Details Date Type Department Care Team (Late st Contact Info) Description 04/05/2023 Telephone [facility] [address] [place] [address] Services, Scheduling [address] [place] [address] Information (///) Allergies Active Allergy Reactions Criticality [...] 1 2 Active Blood Glucose Monitoring Suppl ([employer] AUTOCODE BLOOD GLUCOSE) w/Device KITIndications:DM type 2 [...] Active Fluticasone Propionate 50 MCG/ACT Nasal Suspension (Flonase)Indications:Transportation Program Director sanket rhinitis ADMINISTER 2 SPRAYS IN [...] daily 400 Each 3 3 Active Creon 27484-58813 UNIT Oral Capsule Delayed Release Particles (Pancrelipase (Isp-Rcpj-Gqkz))Indicatio ns:Pancreatic insufficiency TAKE ONE CAPSULE BY MOUTH [...] bedtime. 2 mL 5 3 Active Nystatin 932145 UNIT/GM External Powder (Nystop) APPLY TO AFFECTED [...] fraction) ([facility]),Coronary artery disease involving lower brule coronary artery of lower brule heart without angina pectoris,Nonrheumatic aortic valve stenosis,Cardiac pacemaker in situ,Tachy-wilfrido syndrome ([facility]) Take 1 Tablet by mouth at bedtime. [...] and diastolic congestive heart failure ([facility]) Take 1 Capsule by mouth in the [...] 5-325 MG Oral TabletIndications:Atheros clerosis of lower brule artery of left lower extremity with intermittent [...] excess calories 0 08/09/2022 Atherosclerosis of lower brule ar jania of left lower extremity with intermittent claudication 08/09/2022 Coronary artery disease invo lving lower brule coronary artery of lower brule heart with angina pectoris 03/22/2022 Last Assessment [...] Overview: Diabetic retinopathy Rheumatoid arthritis of [facility] sites without rheumatoid factor 01/26/2016 Last [...] [facility] DETECT Study: Project # [id number], Rn Ortho: Manny Santacruz, PhD. SUMMARY: Goal: Establish test [...] contact study staff at ; after hours Rn Ortho via the [facility] nailer operator . Please contact study team before resolving/deleting from patients problem list. Study phone number: [phone]. Diagnosis changed due to Research Module. Go to Snapshot for study details. Encounter for examination fo r normal comparison and control in clinical research program 11/08/2018 12/10/2021 Overview: DO NOT DELETE - [facility] DETECT Study: Project # [id number], Rn Ortho: Kevin Pearce, MS, MPH. SUMMARY: Goal: Establish [...] contact study staff at ; after hours Rn Ortho via the [facility] nailer operator . - Please contact study team before resolving/deleting from patients problem list. Study phone number: [phone]. Diagnosis changed due to Research Module. Go [...] different agency, [facility] declined A[facility] [phone] f [phone] p Faxed HH order, pt ins/demo and supporting notes, awaiting determination [facility] Call to their answering service to see if they cover [place], awaiting call back [facility] [phone] f [phone] p Faxed HH order, pt ins/demo and supporting notes, awaiting determination * Telephone Encounter - Orquidea Esquivel OSA - 04/05/2023 10:36 AM EST Request to f/u with [facility] on order for HH that was previously faxed, I called and per Maria [email or web address], nothing received so I faxed to them again this morning to [phone] at 1030 documented in this encounter Plan of Treatment Upcoming Encounters Date Type Department Care Team (Late st Contact Info) Description 04/13/2023 12:30 PM EST [facility] [address] [place] [address] Tatyana Delaney, RN [address] [place] [address] 04/14/2023 3:00 PM EST Office Visit Cardiology, [facility] [address] [place] [address] Wood Wong PA-C [address] [place] [address] 04/21/2023 1:00 PM EST Cardiac Studies Cardiology, [facility] [address] [place] [address] [facility] [address] [place] [address] 04/22/2023 11:00 AM EST Office Visit Nephrology, Raphael Marquez [address] [place] [address] Luz Tobias MD [address] [place] [address] 04/25/2023 1:20 PM EST Office Visit Family [facility], [place] [address] [place] [address] David Umanzor MD [address] [place] [address] 05/26/2023 2:00 PM EST Laboratory Laboratory, [place] [address] [place] [address] [place], [facility] [address] [place] [address] 05/31/2023 1:30 PM EST Imaging Radiology [address] [place] [address] 06/07/2023 1:20 PM EST Office Visit Sleep Disorders Ctr [facility] 132 [place] [address] Vira Byrd, 132 [place] [address] 08/01/2023 2:00 PM EDT Laboratory Laboratory, [place] [address] [place] [address] [facility] [address] [place] [address] 08/02/2023 2:00 PM EDT Office Visit Rheumatology [place] [address] [facility] [place] [address] Eliot Castelan CRNP [address] [place] [address] [place], [place] [address] 08/08/2023 12:30 PM EDT Office Visit Hematology/Oncology [facility] [address] [facility] [place] [address] Miguel A Alcantar MD [address] [facility] [place] [address] 03/07/2024 1:00 PM EST Office Visit Cardiology, [facility] [address] [place] [address] Manolo Millan MD [address] [place] [address] Scheduled Procedures Name Priority Associated [...] Additional history exists CKD PHOS USE SMARTSET 25553 12/02/202311/10, 08/06/2022, 08/21/2021, Additional history exists CKD HGB USE SMARTSET 47591 03/25/202403/25, 03/25/2023, 02/28/2023, Additional history exists DXA [...] this encounter Medical Devices Implanted Type Area Airplane Electrical Repairer Device Identifier Shelf Expiration Date Model / Serial / Lot Cinnamon Medical Embosphere Micrspheres Implanted:Qty: 2 on 11/02/2019 by Ish Grove MD at [facility] Right: Abdomen Package [employer] 05/11/2022 S220GH / S220GH / [id number] Syr Pf 2ml Embospheres 100-300 - [id number] Implanted:Qty: 1 on 11/14/2020 at [facility] [employer] [id number] 08/22/2023 S220GH / / [id number] Envelope Antibacterial Tyrx - [id number] Implanted:Qty: 1 on 12/29/2021 by Fatoumata Roland DO at OR [facility] [employer] : CRM [id number] 09/23/2022 CMR M6122 / / [id number] Stent Synergy Xd Mr 3.90v11sg - [id number] Implanted:Qty: 1 on 03/22/2022 by Katalina Pearce MD at [facility] [employer] [id number] 07/17/2023 [id number] / / [id number] Valve Berhane 3 Ultra 26mm - [id number] Implanted:Qty: 1 on 12/09/2022 by Manolo Millan MD at [facility] [employer] [id number] 12/04/2023 [id number] / / documented as of this encounter [...] the patient have Health Care Power of Surgical Endoscopist? No Care Teams Admin Secretary Relationship Specialty Start Date End Date David Umanzor MD [address] [facility] [place] [place] [address] PCP - General 02/25/09 documented as of this encounter
--- OUTSIDE RECORDS SUMMARY | 2023-05-28 21:37 | External Medical Summary | Summary of Care ---
Author Name Unknown Organization [facility] Address [address] [place] [address] Phone [phone] Care Team Providers Care Occupational Therapy Instructor Name Role Phone David Umanzor MD Primary Care Provider +1- [phone] Reason for Visit * Reason Onset Date Comments Information 04/05/2023 Encounter Details Date Type Department Care Team (Late st Contact Info) Description 04/05/2023 Telephone [facility] [address] [place] [address] Services, Scheduling [address] [place] [address] Information (///) Allergies Active Allergy Reactions Criticality [...] 1 2 Active Blood Glucose Monitoring Suppl ([employer] AUTOCODE BLOOD GLUCOSE) w/Device KITIndications:DM type 2 [...] Active Fluticasone Propionate 50 MCG/ACT Nasal Suspension (Flonase)Indications:Instantizer Operator sanket rhinitis ADMINISTER 2 SPRAYS IN [...] daily 400 Each 3 3 Active Creon 78369-55042 UNIT Oral Capsule Delayed Release Particles (Pancrelipase (Xsb-Zdbx-Muhj))Indicatio ns:Pancreatic insufficiency TAKE ONE CAPSULE BY MOUTH [...] bedtime. 2 mL 5 3 Active Nystatin 532227 UNIT/GM External Powder (Nystop) APPLY TO AFFECTED [...] fraction) ([facility]),Coronary artery disease involving elim ira coronary artery [...] DELETE [facility] DETECT Study: Project # [id number], Second Helper: Manny Santacruz, PhD. SUMMARY: Goal: Establish [...] contact study staff at ; after hours Second Helper via the [facility] scientific process operator . Please contact study team before resolving/deleting from patients problem list. Study phone number: [phone]. Diagnosis changed due to Research Module. Go to Snapshot for study details. Encounter for examination fo r normal comparison and control in clinical research program 11/08/2018 12/10/2021 Overview: DO NOT DELETE - [facility] DETECT Study: Project # [id number], Second Helper: Kevin Pearce, MS, MPH. SUMMARY: Goal: [...] contact study staff at ; after hours Second Helper via the [facility] scientific process operator . - Please contact study team before resolving/deleting from patients problem list. Study phone number: [phone]. Diagnosis changed due to Research Module. Go [...] TT request to find a different agency, [facility] declined A[facility] [phone] f [phone] p Faxed HH order, pt ins/demo and supporting notes, awaiting determination [facility] Call to their answering service to see if they cover [place], awaiting call back [facility] [phone] f [phone] p Faxed HH order, pt ins/demo and supporting notes, awaiting determination [facility] [phone] f [phone] p Faxed HH order, pt ins/demo and supporting notes, awaiting determination * Telephone Encounter - Orquidea Esquivel OSA - 04/05/2023 10:36 AM EST Request to f/u with [facility] on order for HH that was previously faxed, I called and per Maria [email or web address], nothing received so I faxed to them again this morning to [phone] at 1030 documented in this encounter Plan of Treatment Upcoming Encounters Date Type Department Care Team (Late st Contact Info) Description 04/13/2023 12:30 PM EST [facility] [address] [place] [address] Tatyana Delaney RN [address] [place] [address] 04/14/2023 3:00 PM EST Office Visit Cardiology, [facility] [address] [place] [address] Wood Wong PA-C [address] [place] [address] 04/21/2023 1:00 PM EST Cardiac Studies Cardiology, [facility] [address] [place] [address] Adam Marx [facility] 132 [place] [address] 04/22/2023 11:00 AM EST Office Visit Nephrology, Raphael Marquez [address] [place], [place] [address] Luz Tobias MD [address] [place], [place] [address] 04/25/2023 1:20 PM EST Office Visit Family [facility] [place] [address] [place] [address] David Umanzor MD [address] [place] [address] 05/26/2023 2:00 PM EST Laboratory Laboratory, [place] [address] [place] [address] [facility] [address] [place] [address] 05/31/2023 1:30 PM EST Imaging Radiology [address] [place] [address] 06/07/2023 1:20 PM EST Office Visit Sleep Disorders Ctr [address] [place] [address] Vira Byrd, 132 [facility] [place] [address] 08/01/2023 2:00 PM EDT Laboratory Laboratory, [place] [address] [place] [address] [facility] [address] [place] [address] 08/02/2023 2:00 PM EDT Office Visit Rheumatology [facility] [address] [place] [address] Eliot Castelan CRNP [address] [place] [address] 08/08/2023 12:30 PM EDT Office Visit Hematology/Oncology [facility] 200 [facility] [place], [place] [address] Miguel A Alcantar MD [address] [place], [place] [address] 03/07/2024 1:00 PM EST Office Visit Cardiology, [facility] [address] [place] [address] Manolo Millan MD [address] [place] [address] Scheduled Procedures Name Priority Associated [...] Additional history exists CKD PHOS USE SMARTSET 57607 12/02/202311/10, 08/06/2022, 08/21/2021, Additional history exists CKD HGB USE SMARTSET 20344 03/25/202403/25, 03/25/2023, 02/28/2023, Additional history exists DXA [...] this encounter Medical Devices Implanted Type Area Histology Supervisor Device Identifier Shelf Expiration Date Model / Serial / Lot Cy[employer]ics Medical Embosphere Micrspheres Implanted:Qty: 2 on 11/02/2019 by Ish Grove MD at [facility] Right: Abdomen [employer] 05/11/2022 S220GH / S220GH / [id number] Syr Pf 2ml Embospheres 100-300 - [id number] Implanted:Qty: 1 on 11/14/2020 at [facility] [employer] [id number] 08/22/2023 S220GH / / [id number] Envelope Antibacterial Tyrx - [id number] Implanted:Qty: 1 on 12/29/2021 by Fatoumata Roland DO at OR [facility] [employer] : CRM [id number] 09/23/2022 CMR M6122 / / [id number] Stent Synergy Xd Mr 3.18c42ly - [id number] Implanted:Qty: 1 on 03/22/2022 by Katalina Pearce MD at [facility] [employer] [id number] 07/17/2023 [id number] / / [id number] Valve Berhane 3 Ultra 26mm - [id number] Implanted:Qty: 1 on 12/09/2022 by Manolo Millan MD at [facility] [employer] [id number] 12/04/2023 [id number] / / documented as of this encounter [...] the patient have Health Care Power of Merchandise Deliverer? No Care Teams Occupational Therapy Instructor Relationship Specialty Start Date End Date David Umanzor MD [address] [place] [address] PCP - General 02/25/09 documented as of this encounter
--- OUTSIDE RECORDS SUMMARY | 2023-05-28 21:38 | External Medical Summary | Summary of Care ---
Author Name Unknown Organization [facility] Address [address] [facility] [place] [address] Phone [phone] Care Team Providers Care Nurse Name Role Phone David Umanzor MD Primary Care Provider [phone]- [phone] Reason for Visit * Reason Onset Date Comments [facility]: Maintenance 03/30/2023 Encounter Details Date Type Department Care Team (Late st Contact Info) Description 03/30/2023 Telephone [facility], [facility] [address] [place] [address] Tatyana Delaney RN [address] [facility] [place] [address] [facility]: Maintenance Allergies Active Allergy Reactions Criticality Noted Date Comments Bactrim 02/09/2010 Cephalosporins Anaphylaxis,Edema face/lips/tongue High 04/11/2009 Anaphylaxis to cefaclor, facial swelling to cephalexin. 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 2 mL 5 3 Active Nystatin 869186 UNIT/GM External Powder (Nystop) APPLY TO AFFECTED AREAS UNDER THE BREASTS THREE TIMES PER DAY NEEDED 30 g 1 3 Active NovoLOG FlexPen 100 UNIT/ML Subcutaneous Solution Pen-injector (insulin aspart)Indications:Type 2 diabetes mellitus with hyperosmolarity without coma, without long-term current use of insulin ([facility]) Inject 10 units with breakfast, 4 units with lunch, and 10 units with PM meal. Inject 4 units if BG is >200. 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 SUMMARY: Goal: Establish test [...] contact study staff at ; after hours Set Up And Charger via the [facility] huller operator . Please contact study team before resolving/deleting from patients problem list. Study phone number: [phone]. Diagnosis changed due to Research Module. Go to Snapshot for study details. Encounter for examination fo r normal comparison and control in clinical research program 11/08/2018 12/10/2021 Overview: DO NOT DELETE - [facility] Study: Project # [id number], Set Up And Charger: Kevin Pearce, MS, MPH. SUMMARY: Goal: Establish [...] contact study staff at ; after hours Set Up And Charger via the [facility] hospital huller operator . - Please contact study team before resolving/deleting from patients problem list. Study phone number: [phone]. Diagnosis changed due to Research Module. Go [...] as of this encounter (statuses as of 04/01/2023) Immunizations Name Administration Dates Next Due COVID-19 [...] money to buy more. Never true 05/03/19 Within the past 12 months, t he [...] encounter Miscellaneous Notes * Telephone Encounter - Nallely Tompkins LPN - 04/01/2023 3:04 PM EST Submitted through [employer] * Telephone Encounter - David Umanzor MD [...] Can you please order and send to [employer] ? Thanks! documented in this encounter Plan of Treatment Upcoming Encounters Date Type Department Care Team (Late st Contact Info) Description 04/02/2023 1:00 PM EST Scheduled Telephone [facility] [address] [facility] [place] [address] [facility], Nurse [facility] [address] [place] [address] 04/13/2023 12:30 PM EST [facility] Visit [facility] [address] [place] [address] Tatyana Delaney, RN 132 [facility] [place] [address] 04/14/2023 3:00 PM EST Office Visit Cardiology, [facility] [place] [place] [address] Wood Wong PA-C [facility] [place] [place] [address] 04/21/2023 1:00 PM EST Cardiac Studies Cardiology, [facility] 132 [facility] [place] [address] [facility] 132 [facility] [place] [address] 04/22/2023 11:00 AM EST Office Visit Nephrology, [facility] [address] [facility] [place] [address] Luz Tobias MD [address] [facility] [place] [address] 04/25/2023 1:20 PM EST Office Visit Family [facility], [place] [address] [place] [phone] David Umanzor MD [address] [place] [address] 05/26/2023 2:00 PM EST Laboratory Laboratory, [place] [address] [place] [phone] [facility] [address] [place] [address] 05/31/2023 1:30 PM EST Imaging Radiology [facility] 132 [facility] [place] [address] 06/07/2023 1:20 PM EST Office Visit [facility] [address] [facility] [place] [phone] Vira Byrd, [address] [place] [address] 08/01/2023 2:00 PM EDT Laboratory Laboratory, [place] [address] [place] [address] [place], Laboratory [address] [place] [address] 08/02/2023 2:00 PM EDT Office Visit Rheumatology [facility] [address] [place], [place] [address] Eliot Castelan CRNP [address] [place] [address] 08/08/2023 12:30 PM EDT Office Visit Hematology/Oncology [facility] [address] [facility] [place] [address] Miguel A Alcantar MD [address] [facility] [place] [address] 03/07/2024 1:00 PM EST Office Visit Cardiology, [facility] 132 [facility] [place] [address] Manolo Millan MD [address] [place] [address] Scheduled Procedures Name Priority Associated Diagnoses Date/Ti [...] Additional history exists CKD PHOS USE SMARTSET 80840 12/02/202311/10, 08/06/2022, 08/21/2021, Additional history exists CKD HGB USE SMARTSET 00560 03/25/202403/25, 03/25/2023, 02/28/2023, Additional history exists DXA [...] this encounter Medical Devices Implanted Type Area Gas Pump Attendant Device Identifier Shelf Expiration Date Model / Serial / Lot [facility] Medical Embosphere Micrspheres Implanted:Qty: 2 on 11/02/2019 by Ish Grove MD at [facility] Right: Abdomen [employer] 05/11/2022 S220GH / S220GH / [id number] Syr Pf 2ml Embospheres 100-300 - [id number] Implanted:Qty: 1 on 11/14/2020 at [facility] [employer] [id number] 08/22/2023 S220GH / / [id number] Envelope Antibacterial Tyrx - [id number] Implanted:Qty: 1 on 12/29/2021 by Fatoumata Roland DO at [facility] [employer] : CRM [id number] 09/23/2022 CMR [id number] / / [id number] Stent Synergy Xd Mr 3.36q65mm - [id number] Implanted:Qty: 1 on 03/22/2022 by Katalina Pearce MD at [facility] [employer] [id number] 07/17/2023 [id number] / / [id number] Valve Berhane 3 Ultra 26mm - [id number] Implanted:Qty: 1 on 12/09/2022 by Manolo Millan MD at [facility] [employer] [id number] 12/04/2023 [id number] / / documented as of this encounter [...] the patient have Health Care Power of Payroll Secretary? No Care Teams Nurse Relationship Specialty Start Date End Date David Umanzor MD [address] [place] [address] PCP - General 02/25/09 documented as of this encounter
--- OUTSIDE RECORDS SUMMARY | 2023-05-28 21:38 | External Medical Summary | Summary of Care ---
Author Name Unknown Organization [facility] Address [address] [facility] [place] [address] Phone [phone] Care Team Providers Care Housecleaner Name Role Phone David Umanzor MD Primary Care Provider [phone]- [phone] Reason for Visit * Reason Onset Date Comments [facility]: Maintenance 04/05/2023 Encounter Details Date Type Department Care Team (Late st Contact Info) Description 04/05/2023 Telephone [facility], [facility] [address] [facility] [place] [address] 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 ([facility]) Take 1 Capsule by mouth [...] 5-325 MG Oral TabletIndications:Atheros clerosis of [place] artery of left lower extremity with intermittent [...] excess calories 0 08/09/2022 Atherosclerosis of [place] ar jania of left lower extremity with intermittent claudication 08/09/2022 Coronary artery disease invo lving [place] coronary artery of [place] heart with angina pectoris 03/22/2022 Last Assessment [...] Diabetic retinopathy Rheumatoid arthritis of [facility] without rheumatoid factor 01/26/2016 Last Assessment [...] [facility] DETECT Study: Project # [id number], Investigations Chief: Manny Santacruz, PhD. SUMMARY: Goal: Establish test [...] contact study staff at ; after hours Investigations Chief via the [facility] collating machine operator . Please contact study team before resolving/deleting from patients problem list. Study phone number: [phone]. Diagnosis changed due to Research Module. Go to Snapshot for study details. Encounter for examination fo r normal comparison and control in clinical research program 11/08/2018 12/10/2021 Overview: DO NOT DELETE - [facility] Study: Project # [id number], Investigations Chief: Kevin Pearce, MS, MPH. SUMMARY: Goal: Establish [...] contact study staff at ; after hours Investigations Chief via the [facility] collating machine operator . - Please contact study team before resolving/deleting from patients problem list. Study phone number: [phone]. Diagnosis changed due to Research Module. Go [...] Miscellaneous Notes * Telephone Encounter - Geovanna Duran RN - 04/05/2023 10:18 AM EST Patient calling. She said she never heard from [facility]. She called this am and they never received a referral. Referral 03/30 from PCP in chart. States it was faxed to [facility] (Patient had them in the past.) I told her I would send it to [facility] materials scheduler. Geovanna Duran. RN [facility] disability liaison officer [phone] documented in this encounter Plan of Treatment Upcoming Encounters Date Type Department Care Team (Late st Contact Info) Description 04/13/2023 12:30 PM EST [facility] [place] [address] [place] [address] Tatyana Delaney RN [address] [place] [address] 04/14/2023 3:00 PM EST Office Visit Cardiology, [facility] [address] [place] [address] Wood Wong PA-C [address] [place] [address] 04/21/2023 1:00 PM EST Cardiac Studies Cardiology, [facility] [place] [address] [address] [facility] [address] [place] [address] 04/22/2023 11:00 AM EST Office Visit Nephrology, Raphael Mar[facility] [address] [place] [address] Luz Tobias MD [address] [place] [address] 04/25/2023 1:20 PM EST Office [address] [phone] David Umanzor MD [address] [place] [facility] [place] [address] 05/26/2023 2:00 PM EST Laboratory Laboratory, [place] [address] [place] [facility] [place] [address] [facility] [address] [place], [place] [address] 05/31/2023 1:30 PM EST Imaging Radiology [facility]st [facility] [address] 06/07/2023 1:20 PM EST Office Visit [facility] [phone] Vira Byrd, [address] [facility] [address] 08/01/2023 2:00 PM EDT Laboratory Laboratory, [place] [address] [place] [facility] [place] [address] [facility] [address] [place] [facility] [place] [address] 08/02/2023 2:00 PM EDT Office Visit Rheumatology [place] [address] [facility] [place] [address] Eliot Castelan CRNP [facility] [place] [address] 08/08/2023 12:30 PM EDT Office Visit Hematology/Oncology [facility] [place] [address] [place] [address] Miguel A Alcantar MD [address] [place] [address] 03/07/2024 1:00 PM EST Office Visit Cardiology, [facility] [address] [place] [address] Manolo Millan MD [address] [place] [facility] [place] [address] Scheduled Procedures Name Priority Associated Diagnoses [...] Additional history exists CKD PHOS USE SMARTSET 90796 12/02/202311/10 06/2022, 08/06/2022, 08/21/2021, Additional history exists CKD HGB USE SMARTSET 40847 03/25/202403/25, 03/25/2023, 02/28/2023, Additional history exists DXA [...] this encounter Medical Devices Implanted Type Area Watch Hairspring Assembler Device Identifier Shelf Expiration Date Model / Serial / Lot [facility] Medical Embosphere Micrspheres Implanted:Qty: 2 on 11/02/2019 by Ish Grove MD at [facility] Right: Abdomen [employer] 05/11/2022 S220GH / S220GH / [id number] Syr Pf 2ml Embospheres 100-300 - [id number] Implanted:Qty: 1 on 11/14/2020 at [facility] [employer] [id number] 08/22/2023 S220GH / / [id number] Envelope Antibacterial Tyrx - [id number] Implanted:Qty: 1 on 12/29/2021 by Fatoumata Roland DO at [facility] [employer] : CRM [id number] 09/23/2022 CMR [id number] / / [id number] Stent Synergy Xd Mr 3.64j31yq - [id number] Implanted:Qty: 1 on 03/22/2022 by Katalina Pearce MD at [facility] [employer] [id number] 07/17/2023 [id number] / [id number] Valve Berhane 3 Ultra 26mm - [id number] Implanted:Qty: 1 on 12/09/2022 by Manolo Millan MD at [facility] [employer] [id number] 12/04/2023 [id number] / / documented as of this encounter [...] patient have Health Care Power of Inside Steward/Stewardess? No Care Teams Housecleaner Relationship Specialty Start Date End Date David Umanzor MD [address] [place] [address] PCP - General 02/25/09 documented as of this encounter
--- OUTSIDE RECORDS SUMMARY | 2023-05-28 21:38 | External Medical Summary | Summary of Care ---
Author Name Unknown Organization [facility] Address [address] [facility] [place] [address] Phone [phone] Care Team Providers Care Area Coordinator Name Role Phone David Umanzor MD Primary Care Provider [phone]- [phone] Reason for Visit * Reason Onset Date Comments Follow Up 04/02/2023 Encounter Details Date Type Department Care Team (Late st Contact Info) Description 04/02/2023 1:00 PM EST Scheduled Telephone [facility], [facility] [address] [facility] [address] [facility], Nurse [facility] [address] [place] [address] Allergies Active Allergy Reactions Criticality Noted Date Comments Bactrim 02/09/2010 Cephalosporins Anaphylaxis,Edema face/lips/tongue High 04/11/2009 Anaphylaxis to cefaclor, facial swelling to cephalexin. 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 45 Tablet 0 3 Active documented as of this encounter (statuses as of 04/02/2023) Active Problems Problem Noted Date Diagnosed Date [...] to excess calories 0 08/09/2022 Atherosclerosis of [place] ar jania of left lower extremity with intermittent claudication 08/09/2022 Coronary artery disease invo lving [place] coronary artery of [place] heart with angina pectoris 03/22/2022 Last Assessment [...] Diabetic retinopathy Rheumatoid arthritis of [facility] sites without rheumatoid factor 01/26/2016 Last [...] as of this encounter (statuses as of 04/02/2023) Resolved Problems Problem Noted Date Diagnosed Date [...] [facility] DETECT Study: Project # [id number], Pig Machine Operator: Manny Santacruz, PhD. SUMMARY: Goal: [...] contact study staff at ; after hours Pig Machine Operator via the [facility] web press operator assistant . Please contact study team before resolving/deleting from patients problem list. Study phone number: [phone]. Diagnosis changed due to Research Module. Go to Snapshot for study details. Encounter for examination fo r normal comparison and control in clinical research program 11/08/2018 12/10/2021 Overview: DO NOT DELETE - [facility] Study: Project # [id number], Pig Machine Operator: Kevin Pearce, MS, MPH. SUMMARY: [...] contact study staff at ; after hours Pig Machine Operator via the [facility] hospital web press operator assistant . - Please contact study team before resolving/deleting from patients problem list. Study phone number: [phone]. Diagnosis changed due to Research Module. Go [...] as of this encounter (statuses as of 04/02/2023) Immunizations Name Administration Dates Next Due COVID-19 [...] encounter Miscellaneous Notes * Telephone Encounter - Michelle Cullen RN - 04/02/2023 2:39 PM EST Phone call to patient. Recent ED visit- Right stomach pain. Reports tumors are dying but pain is like sand paper under her diaphragm. Taking hydrocodone just about every six hours. Prescribed Doxycycline for UTI on discharge from ER. States she got a call that Doxycycline wasn't "good" for the infection. Her son had to draft roller picker another ABT not covered by [facility]. Son doesn't remember the name- but presumable Fosfomycin as it was a powder to dissolve and drink immediately. Took ABT. Denies burning- dysuria. Encouraged Miralax in the am and half dose in afternoon d/t taking hydrocodone every 6 hours for pain. Fluids encouraged. Voices understanding of above. Follow up phone call tomorrow. documented in this encounter Plan of Treatment Upcoming Encounters Date Type Department Care Team (Late st Contact Info) Description 04/03/2023 3:00 PM EST [facility] [address] [place] [address] [facility] [address] [place] [address] 04/13/2023 12:30 PM EST [facility] Visit [facility] [address] [place] [address] Tatyana Delaney RN [address] [place] [address] 04/14/2023 3:00 PM EST Office Visit Cardiology, [facility] [address] [place] [address] Wood Wong PA-C [address] [place] [address] 04/21/2023 1:00 PM EST Cardiac Studies Cardiology, [facility] [address] [place] [address] [facility] [address] [place] [address] 04/22/2023 11:00 AM EST Office Visit Nephrology, [facility] [address] [place], [place] [address] Luz Tobias MD 200 [facility] [place] [address] 04/25/2023 1:20 PM EST Office Visit Family [facility], [place] [address] [place] [facility] [place] [address] David Umanzor MD [address] [place] [address] 05/26/2023 2:00 PM EST Laboratory Laboratory, [place] [address] [place] [address] [facility] [address] [place], [place] [address] 05/31/2023 1:30 PM EST Imaging Radiology [address] [place] [address] 06/07/2023 1:20 PM EST Office Visit Sleep Disorders Ctr [facility] [address] [place] [phone] Vira Byrd, DO [address] [facility] [place] [address] 08/01/2023 2:00 PM EDT Laboratory Laboratory, [place] [address] [place] [address] [place], Laboratory [address] [place] [address] 08/02/2023 2:00 PM EDT Office Visit Rheumatology [facility] [address] [facility] [place] [address] Eliot Castelan CRNP [address] [place] [address] 08/08/2023 12:30 PM EDT Office Visit Hematology/Oncology [facility] [address] [facility] [place] [address] Miguel A Alcantar MD [address] [place] [address] 03/07/2024 1:00 PM EST Office Visit Cardiology, [facility] [address] [place] [address] Manolo Millan MD [address] [place] [address] Scheduled Procedures Name Priority Associated [...] Additional history exists CKD PHOS USE SMARTSET 82580 12/02/202311/10, 08/06/2022, 08/21/2021, Additional history exists CKD HGB USE SMARTSET 90859 03/25/202403/25, 03/25/2023, 02/28/2023, Additional history exists DXA [...] this encounter Medical Devices Implanted Type Area Pressroom Worker Device Identifier Shelf Expiration Date Model / Serial / Lot LibriLoop Embosphere Micrspheres Implanted:Qty: 2 on 11/02/2019 by Ish Grove MD at [facility] Right: Abdomen [employer] 05/11/2022 S220GH / S220GH / [id number] Syr Pf 2ml Embospheres 100-300 - [id number] Implanted:Qty: 1 on 11/14/2020 at [facility] [employer] [id number] 08/22/2023 S220GH / / [id number] Envelope Antibacterial Tyrx - [id number] Implanted:Qty: 1 on 12/29/2021 by Fatoumata Roland DO at [facility] [employer] : CRM [id number] 09/23/2022 CMR [id number] / / [id number] Stent Synergy Xd Mr 3.91r95og - [id number] Implanted:Qty: 1 on 03/22/2022 by Katalina Pearce MD at [facility] [employer] [id number] 07/17/2023 [id number] / / [id number] Valve Berhane 3 Ultra 26mm - [id number] Implanted:Qty: 1 on 12/09/2022 by Manolo Millan MD at [facility] [employer] [id number] 12/04/2023 [id number] / / documented as of this encounter [...] the patient have Health Care Power of Retort Condenser Attendant? No Care Teams Area Coordinator Relationship Specialty Start Date End Date David Umanzor MD [address] [place] [address] PCP - General 02/25/09 documented as of this encounter
--- OUTSIDE RECORDS SUMMARY | 2023-05-28 21:38 | External Medical Summary | Summary of Care ---
Author Name Unknown Organization [facility] Address [address] [place] [address] Phone [phone] Care Team Providers Care Ampoule Examiner Name Role Phone David Umanzor MD Primary Care Provider +1- [phone] Reason for Visit * Reason Onset Date Comments Fax 03/24/2023 [facility] red/ glucose monitor Vane called from [facility]. Encounter Details Date Type Department Care Team (Late st Contact Info) Description 03/24/2023 Telephone [facility] [address] [place] [address] David Umanzor MD [address] [place] [address] Fax (Home Care Delivered/ glucose [...] 1 2 Active Blood Glucose Monitoring Suppl ([employer] AUTOCODE BLOOD GLUCOSE) w/Device KITIndications:DM type 2 [...] daily 400 Each 3 3 Active Creon 55563-32931 UNIT Oral Capsule Delayed Release Particles (Pancrelipase (Upt-Cqob-Ncbx))Indicati ons:Pancreatic insufficiency TAKE ONE CAPSULE BY MOUTH [...] bedtime. 2 mL 5 3 Active Nystatin 632996 UNIT/GM External Powder (Nystop) APPLY TO AFFECTED [...] [facility]),Coronary artery disease involving [place] coronary artery of [place] heart without angina pectoris,Nonrheumatic aortic valve stenosis,Cardiac pacemaker in situ,Tachy-wilfrido syndrome ([facility]) Take 1 Tablet by mouth [...] insulin ([facility]) Inject 30 units daily 45 [...] and diastolic congestive heart failure ([facility]) Take 1 Capsule by mouth [...] n 5-325 MG Oral TabletIndications:Athero sclerosis of [place] artery of left lower extremity with intermittent [...] to excess calories 0 08/09/2022 Atherosclerosis of [place] ar jania of left lower extremity with intermittent claudication 08/09/2022 Coronary artery disease invo lving [place] coronary artery of [place] heart with angina pectoris 03/22/2022 Last Assessment [...] The Chronically Ill DETECT Study: Project # [id number], Spring Winder: Manny Santacruz, PhD. SUMMARY: Goal: Establish test [...] contact study staff at ; after hours Spring Winder via the [facility] hospital mixer operator vacuum pan salt . Please contact study team before resolving/deleting from patients problem list. Study phone number: [phone]. Diagnosis changed due to Research Module. Go to Snapshot for study details. Encounter for examination fo r normal comparison and control in clinical research program 11/08/2018 12/10/2021 Overview: DO NOT DELETE - [facility] Study: Project # [id number], Spring Winder: Kevin Pearce MS, MPH. SUMMARY: Goal: Establish [...] contact study staff at ; after hours Spring Winder via the [facility] mixer operator vacuum pan salt . - Please contact study team before resolving/deleting from patients problem list. Study phone number: [phone]. Diagnosis changed due to Research Module. Go [...] electronic signature. Fax it back then to [phone] * Telephone Encounter - Lizz Arteaga LPN - 03/24/2023 3:48 PM EST OV notes faxed 03/24/2023 * Telephone Encounter - Dorothy Gonzalez OSA - 03/24/2023 9:32 AM EST Caller requesting the following information to be faxed: Name/Company of caller: [employer] Information requested to be faxed: most recent office note related to diabetes Fax number: [phone] Attention to Name/Company: Any additional information?: re: diabetic glucose monitor ordered 8.16.23 documented in this encounter Plan of Treatment Upcoming Encounters Date Type Department Care Team (Late st Contact Info) Description 04/02/2023 1:00 PM EST Scheduled Telephone [facility], [facility] [address] [facility] [place] [address] [facility], Nurse [facility] [address] [facility] [place] [address] 04/13/2023 12:30 PM EST Home Visit [facility], [facility] [address] [facility] [place] [address] Tatyana Delaney RN 132 [facility] [place] [address] 04/14/2023 3:00 PM EST Office Visit Cardiology, [facility] [address] [facility] [place] [address] Wood Wong PA-C [address] [facility] [place] [address] 04/21/2023 1:00 PM EST Cardiac Studies Cardiology, [facility] [address] [facility] [place] [address] [facility] [address] [facility] [place] [address] 04/22/2023 11:00 AM EST Office Visit Nephrology, [facility] [address] [place] [address] Luz Tobias MD [address] [place] [address] 04/25/2023 1:20 PM EST Office Visit [address] [place] [address] David Umanzor MD [address] [place] [facility] [place] [address] 05/26/2023 2:00 PM EST Laboratory Laboratory, [place] [address] [place] [facility] [place] [phone] [facility] Laboratory [address] [facility], [place] [address] 05/31/2023 1:30 PM EST Imaging Radiology [address] [facility] [address] 06/07/2023 1:20 PM EST Office Visit [facility]tr [facility] [address] [facility] [phone] Vira Byrd, [facility] [address] 08/01/2023 2:00 PM EDT Laboratory Laboratory, [place] [address] [place] [facility] [place] [address] [facility] [address] [place] [facility] [place] [place] [address] 08/02/2023 2:00 PM EDT Office Visit Rheumatology [facility] [address] [facility] [place] [address] Eliot Castelan CRNP [facility] [facility] [place] [address] 08/08/2023 12:30 PM EDT Office Visit Hematology/Oncology [facility] [place] [address] [place] [address] Miguel A Alcantar MD [address] [place] [address] 03/07/2024 1:00 PM EST Office Visit Cardiology, [facility] [address] [place] [address] Manolo Millan MD [address] [facility] [place] [address] Scheduled Procedures Name [...] Additional history exists CKD PHOS USE SMARTSET 65426 12/02/202311/10, 08/06/2022, 08/21/2021, Additional history exists CKD HGB USE SMARTSET 33819 03/25/202403/25, 03/25/2023, 02/28/2023, Additional history exists DXA [...] this encounter Medical Devices Implanted Type Area Certified Travel Counselor Device Identifier Shelf Expiration Date Model / Serial / Lot [facility] Medical Embosphere Micrspheres Implanted:Qty: 2 on 11/02/2019 by Ish Grove MD at [facility] Right: Abdomen [employer] 05/11/2022 S220GH / S220GH / [id number] Syr Pf 2ml Embospheres 100-300 - [id number] Implanted:Qty: 1 on 11/14/2020 at [facility] [employer] [id number] 08/22/2023 S220GH / / [id number] Envelope Antibacterial Tyrx - [id number] Implanted:Qty: 1 on 12/29/2021 by Fatoumata Roland [facility] [employer] : CRM [id number] 09/23/2022 CMR M6122 / / [id number] Stent Synergy Xd Mr 3.00n40wc - [id number] Implanted:Qty: 1 on 03/22/2022 by Katalina Pearce MD at [facility] [employer] [id number] 07/17/2023 [id number] / [id number] Valve Berhane 3 Ultra 26mm - [id number] Implanted:Qty: 1 on 12/09/2022 by Manolo Millan MD at [facility] [employer] [id number] 12/04/2023 [id number] / / documented as of this encounter [...] the patient have Health Care Power of Wet Sander? No Care Teams Ampoule Examiner Relationship Specialty Start Date End Date David Umanzor MD [address] [place] [address] PCP - General 02/25/09 documented as of this encounter
--- OUTSIDE RECORDS SUMMARY | 2023-05-28 21:38 | External Medical Summary | Summary of Care ---
Author Name Unknown Organization [facility] Address [address] [place] [address] Phone [phone] Care Team Providers Care Color Repairer Name Role Phone David Umanzor MD Primary Care Provider [phone]- [phone] Reason for Visit * Reason Onset Date Comments Advice 12/31/2022 Encounter Details Date Type Department Care Team (Late st Contact Info) Description 12/31/2022 Telephone [facility] [address] [place] [address] David Umanzor MD [address] [place] [address] Advice Allergies Active Allergy Reactions [...] daily 0 Active B-12 1500 MCG PO TBCRIndications:Pernici ous anemia one pill each day 90 Tab 3 03/09/20 10 Active BIOTENE MOISTURIZING MOUTH MT SOLNIndications:Dry mouth [...] 400 Each 3 08/07/19 23 Active Creon 65627-01532 UNIT Oral Capsule Delayed Release Particles (Pancrelipase (Pya-Osis-Cbmw))Indicat ions:Pancreatic insufficiency TAKE ONE CAPSULE BY MOUTH [...] 2 mL 5 08/28/19 23 Active Nystatin 384743 UNIT/GM External Powder (Nystop) APPLY TO AFFECTED [...] [facility]),Coronary artery disease involving [place] coronary artery of [place] heart without angina pectoris,Nonrheumatic aortic valve stenosis,Cardiac [...] daily 45 mL 1 12/18/19 23 Active predniSONE 5 MG Oral Tablet (Deltasone) TAKE 1 TABLET BY MOUTH DAILY 90 Tablet 4 03/01/20 22 023 Discontinued Aspirin 81 MG Oral Tablet Chewable Take 1 Tablet (81 mg) by mouth in the morning. 30 Tablet 11 03/22/20 22 023 Discontinued(R efill) Clopidogrel Bisulfate 75 MG Oral Tablet (pLAVix) Take 1 Tablet (75 mg) by mouth in the morning. 90 Tablet 3 03/23/20 22 023 Discontinued(R efill) Magnesium Oxide 400 (240 Mg) MG Oral Tablet (Mag-Ox) TAKE 1 TABLET BY MOUTH ONCE DAILY ON TUESDAY, TUESDAY AND TUESDAY ONLY 47 Tablet 3 07/09/19 23 023 Discontinued(R efill) HYDROcodone-Acetaminoph en 5-325 MG Oral TabletIndications:Ather osclerosis of [place] artery of left lower extremity with intermittent claudication ([facility]),Pain of left lower extremity Take 1 Tablet by mouth every 6 hours as needed for Pain, Mild. 30 Tablet 0 07/24/19 23 023 Discontinued(R efill) Vitron-C 65-125 MG Oral Tablet (Iron-Vitamin C 65-125 mg per tab) Take 1 Tablet by mouth daily. 90 Tablet 3 08/11/19 23 023 Discontinued(M edication List Clean Up) Vitamin C 500 MG Oral Tablet (Ascorbic Acid) Take 1 Tablet by mouth in the morning. 0 023 Discontinued(R efill) Hydroxychloroquine Sulfate 200 MG Oral Tablet (Plaquenil)Indications: Encounter for therapeutic drug monitoring TAKE TWO TABLETS BY MOUTH DAILY AT BEDTIME 180 Tablet 0 08/28/19 23 023 Discontinued LORazepam 0.5 MG Oral Tablet (Ativan)Indications:Anx iety state TAKE 1 TABLET 3 TIMES A DAY NEEDED FOR ANXIETY 40 Tablet 1 09/14/19 23 023 Discontinued(R efill) Erythromycin 5 MG/GM Ophthalmic OintmentIndications:Exp osure keratoconjunctivitis of both eyes Instill 0.25 Inches into both eyes in the morning and 0.25 Inches at noon and 0.25 Inches in the evening and 0.25 Inches before bedtime. Dispense 4 tubes at a time.. 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 30 Tablet 1 12/18/19 23 023 Discontinued(R efill) Potassium Chloride ER 20 MEQ Oral Tablet Extended Release Take 2 Tablets by mouth in the morning. 180 Tablet 1 12/18/19 23 023 Discontinued(R efill) Spironolactone 25 MG Oral Tablet (Aldactone) Take 1 Tablet by mouth in the morning. 90 Tablet 1 12/18/19 23 023 Discontinued(R efill) Torsemide 100 MG Oral Tablet (Demadex) Take 0.5 Tablets by mouth in the morning. Do not start before December 18, 2022. 45 Tablet 1 12/19/19 23 023 Discontinued(R efill) Gabapentin 300 MG Oral Capsule (Neurontin) Take 1 Capsule by mouth in the morning and 1 Capsule before bedtime. 60 Capsule 1 12/18/19 23 023 Discontinued(R efill) documented as of [...] excess calories 0 08/09/2022 Atherosclerosis of [place] ar jania of left lower extremity with intermittent claudication 08/09/2022 Coronary artery disease invo lving [place] coronary artery of [place] heart with angina pectoris 03/22/2022 Last Assessment [...] Diabetic retinopathy Rheumatoid arthritis of [facility] sites without rheumatoid factor 01/26/2016 Last Assessment [...] [facility] DETECT Study: Project # [id number], Family Assistant: Manny Santacruz, PhD. SUMMARY: Goal: Establish [...] contact study staff at ; after hours Family Assistant via the [facility] hospital armoring machine operator . Please contact study team before resolving/deleting from patients problem list. Study phone number: [phone]. Diagnosis changed due to Research Module. Go to [employer] for study details. Encounter for examination fo r normal comparison and control in clinical research program 11/08/2018 12/10/2021 Overview: DO NOT DELETE - [facility] Study: Project # [id number], Family Assistant: Kevin Pearce, MS, MPH. SUMMARY: Goal: [...] contact study staff at ; after hours Family Assistant via the [facility] armoring machine operator . - Please contact study team before resolving/deleting from patients problem list. Study phone number: [phone]. Diagnosis changed due to Research Module. Go to [employer] for study details. Food insecurity 08/21/2018 03/24/2023 [...] encounter Miscellaneous Notes * Telephone Encounter - Doreen Flores OSA - 01/17/2023 3:10 PM EDT Patient came in today for an appointment. We changed her phone number. Someone put in a phone number when she was in [facility]. I inquired of patient what form she is talking about that she needs filled out. She says a form about her services was filed out wrong and they are taking away some of her services. She said she has to appeal it. She got an appeal letter/form, but she can't find it. She has called and asked it to be sent again. I gave her the nurse fax number if she can have them faxany form * Telephone Encounter - Dagmar Chatman LPN - 01/06/2023 3:30 PM EDT Please continue to try to reach patient 2 more times on different days at different times before sending a letter. * Telephone Encounter - Nallely Tompkins LPN - 01/06/2023 11:49 AM EDT Attempted to call pt at number listed below - phone rang & rang - then said call could not go through Unsure what form pt is talking about - we have not filled out any waiver forms (for the [place] independent enrollment grain broker and market operator) since October So unsure what form is needed * Telephone Encounter - Kasey Joiner OSA - 01/06/2023 9:35 AM EDT Patient calling in to check on the status of previous message. Patient Called after 48 hour timeframe and escalation e-mail was sent to clinic leadership. * Telephone Encounter - Melany Lopez OSA - 01/04/2023 12:57 PM EDT Patient calling in to check on the status of previous message. Patient calling in with may questions for the nurse and stated this is high priority because she needs an Home health care to be able to go home. States an appeal letter or someone to correct the forms for her. Patient Called within 48 hour timeframe. Reminded patient of 48 hour turn-around time. * Telephone Encounter - Ana María Floyd OSA - 01/03/2023 10:22 AM EDT Patient calling in to check on the status of previous message. Pt will be out of center care from 245 to 345pm. She really needs this sent as she would like to go home but can't take care of herself. Patient Called within 48 hour timeframe. Reminded patient of 48 hour turn- around time. * Telephone Encounter - Cris Aguirre OSA - 12/31/2022 1:05 PM EDT Pt called in asking to speak to PCP or nurse on her waiver services . She stated a wrong box was checked when it was sent in . She needs it completed as she needs help at home . They told her she is not medically qualified for the services . She was originally approved by her coordinator . She would like a call back to discuss and see if she can get corrected Please call the number [phone] as she is at [facility] documented in this encounter Plan of Treatment Upcoming Encounters Date Type Department Care Team (Late st Contact Info) Description 04/02/2023 1:00 PM EST Scheduled Telephone [facility], [facility] [address] [place] [address] [facility], Nurse [facility] [address] [place] [address] 04/13/2023 12:30 PM EST Home Visit [facility], [facility] [address] [place] [address] Tatyana Delaney RN [address] [place] [address] 04/14/2023 3:00 PM EST Office Visit Cardiology, [facility] 132 [place] [address] Wood Wong PA-C [address] [place] [address] 04/21/2023 1:00 PM EST Cardiac Studies Cardiology, [facility] [address] [place] [address] Adam Marx [facility] 132 [facility] [place] [address] 04/22/2023 11:00 AM EST Office Visit Nephrology, [facility] [address] [facility] [place], [place] [address] Luz Tobias MD [address] [facility] [place], [place] [address] 04/25/2023 1:20 PM EST Office Visit Family [facility] [place] [address] [place] [address] David Umanzor MD [address] [place] [address] 05/26/2023 2:00 PM EST Laboratory Laboratory, [place] [address] [place] [address] [facility] [address] [place] [address] 05/31/2023 1:30 PM EST Imaging Radiology [facility] 1st [facility] [address] [facility] [place] [address] 06/07/2023 1:20 PM EST Office Visit Sleep Disorders Ctr [facility] [address] [place] [phone] Vira Byrd DO 132 [facility] [address] 08/01/2023 2:00 PM EDT Laboratory Laboratory, [place] [address] [place] [address] [facility] [address] [place] [address] 08/02/2023 2:00 PM EDT Office Visit Rheumatology [facility] [address] [facility] [place] [address] Eliot Castelan CRNP [facility] [place], [place] [address] 08/08/2023 12:30 PM EDT Office Visit Hematology/Oncology [facility] [address] [place] [address] Miguel A Alcantar MD [address] [place] [address] 03/07/2024 1:00 PM EST Office Visit Cardiology, [facility] [address] [facility] [place] [address] Manolo Millan MD [address] [place] [address] Scheduled Procedures Name Priority Associated Diagnoses Date/Ti [...] Additional history exists CKD PHOS USE SMARTSET 40817 12/02/202311/10, 08/06/2022, 08/21/2021, Additional history exists CKD HGB USE SMARTSET 05478 03/25/202403/25, 03/25/2023, 02/28/2023, Additional history exists DXA [...] this encounter Medical Devices Implanted Type Area Tumbling And Rolling Supervisor Device Identifier Shelf Expiration Date Model / Serial / Lot [employer] Medical Embosphere Micrspheres Implanted:Qty: 2 on 11/02/2019 by Ish Grove MD at [facility] Right: Abdomen [employer] 05/11/2022 S220GH / [id number] / [id number] Syr Pf 2ml Embospheres 100-300 - [id number] Implanted:Qty: 1 on 11/14/2020 at [facility] [employer] [id number] 08/22/2023 S220GH / / [id number] Envelope Antibacterial Tyrx - [id number] Implanted:Qty: 1 on 12/29/2021 by Fatoumata Roland DO at OR [facility] [employer] : CRM [id number] 09/23/2022 CMR [id number] / / [id number] Stent Synergy Xd Mr 3.06q68jh - [id number] Implanted:Qty: 1 on 03/22/2022 by Katalina Pearce MD at [facility] [employer] [id number] 07/17/2023 [id number] / / [id number] Valve Berhane 3 Ultra 26mm - [id number] Implanted:Qty: 1 on 12/09/2022 by Manolo Millan MD at [facility] [employer] [id number] 12/04/2023 [id number] / / documented as of this encounter [...] the patient have Health Care Power of Rental Manager? No Care Teams Color Repairer Relationship Specialty Start Date End Date David Umanzor MD [address] [place] [address] PCP - General 02/25/09 documented as of this encounter
--- OUTSIDE RECORDS SUMMARY | 2023-05-28 21:38 | External Medical Summary | Summary of Care ---
Author Name Unknown Organization [facility] Address [address] [place] [address] Phone [phone] Care Team Providers Care Pneumatic Tester Name Role Phone David Umanzor MD Primary Care Provider +1- [phone] Reason for Visit * Reason Onset Date Comments Fax 03/24/2023 [facility] red/ glucose monitor Vane called from [facility]. Encounter Details Date Type Department Care Team (Late st Contact Info) Description 03/24/2023 Telephone [facility] [address] [place] [address] David Umanzor MD [address] [place] [address] Fax (Home Care Delivered/ glucose [...] 1 2 Active Blood Glucose Monitoring Suppl (GCD Systeme AUTOCODE BLOOD GLUCOSE) w/Device KITIndications:DM type 2 [...] daily 400 Each 3 3 Active Creon 50994-17938 UNIT Oral Capsule Delayed Release Particles (Pancrelipase (Gbf-Tial-Lcjh))Indicati ons:Pancreatic insufficiency TAKE ONE CAPSULE BY MOUTH [...] bedtime. 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 SUMMARY: Goal: Establish test [...] contact study staff at ; after hours Medication Nurse via the [facility] hospital chemical unit operator . Please contact study team before resolving/deleting from patients problem list. Study phone number: [phone]. Diagnosis changed due to Research Module. Go to [employer] for study details. Encounter for examination fo r normal comparison and control in clinical research program 11/08/2018 12/10/2021 Overview: DO NOT DELETE - [facility] Study: Project # [id number], Medication Nurse: Kevin Pearce MS, MPH. SUMMARY: Goal: Establish [...] contact study staff at ; after hours Medication Nurse via the [facility] chemical unit operator . - Please contact study team before resolving/deleting from patients problem list. Study phone number: [phone]. Diagnosis changed due to Research Module. Go [...] electronic signature. Fax it back then to [phone] * Telephone Encounter - Lizz Arteaga LPN - 03/24/2023 3:48 PM EST OV notes faxed 03/24/2023 * Telephone Encounter - Dorothy Gonzalez OSA - 03/24/2023 9:32 AM EST Caller requesting the following information to be faxed: Name/Company of caller: [employer] Information requested to be faxed: most recent office note related to diabetes Fax number: [phone] Attention to Name/Company: Any additional information?: re: diabetic glucose monitor ordered 8 documented in this encounter Plan of Treatment Upcoming Encounters Date Type Department Care Team (Late st Contact Info) Description 04/02/2023 1:00 PM EST Scheduled Telephone [facility], [address] [place] [address] Region, Nurse [facility] [address] [place] [address] 04/13/2023 12:30 PM EST [facility], [facility] [address] [place] [address] Tatyana Delaney RN [address] [place] [address] 04/14/2023 3:00 PM EST Office Visit Cardiology, [facility] 132 [facility] [place] [address] Wood Wong PA-C [address] [place] [address] 04/21/2023 1:00 PM EST Cardiac Studies Cardiology, [facility] [address] [facility] [place] [address] Adam Marx [facility] 132 [facility] [place] [address] 04/22/2023 11:00 AM EST Office Visit Nephrology, [facility] [address] [place], [place] [address] Luz Tobias MD [address] [place] [address] 04/25/2023 1:20 PM EST Office Visit Family Practice, [place] [address] [place] [phone] David Umanzor MD [address] [place] [address] 05/26/2023 2:00 PM EST Laboratory Laboratory, [address] [place] [phone] [facility] [address] [place] [address] 05/31/2023 1:30 PM EST Imaging Radiology [facility]st [facility] [address] [place] [address] 06/07/2023 1:20 PM EST Office Visit Sleep Disorders Ctr [facility] 132 [place] [phone] Vira Byrd, 132 [facility] [address] 08/01/2023 2:00 PM EDT Laboratory Laboratory, [place] [address] [place] [address] [facility] [address] [place] [address] 08/02/2023 2:00 PM EDT Office Visit Rheumatology [facility] [address] [facility] [place], [place] [address] Eliot Castelan CRNP [address] [facility] [place] [address] 08/08/2023 12:30 PM EDT Office Visit Hematology/Oncology [facility] [place] [address] [place], [place] [address] Miguel A Alcantar MD [address] [place], [place] [address] 03/07/2024 1:00 PM EST Office Visit Cardiology, [facility] 132 [place] [address] Manolo Millan MD [address] [place] [address] [phone] (work) Scheduled Procedures Name Priority Associated Diagnoses [...] Additional history exists CKD PHOS USE SMARTSET 27377 12/02/202311/10, 08/06/2022, 08/21/2021, Additional history exists CKD HGB USE SMARTSET 63074 03/25/202403/25, 03/25/2023, 02/28/2023, Additional history exists DXA [...] this encounter Medical Devices Implanted Type Area Field Court Researcher Device Identifier Shelf Expiration Date Model / Serial / Lot [place] Medical Embosphere Micrspheres Implanted:Qty: 2 on 11/02/2019 by Ish Grove MD at [facility] Right: Abdomen [employer] 05/11/2022 S220GH / S220GH / [id number] Syr Pf 2ml Embospheres 100-300 - [id number] Implanted:Qty: 1 on 11/14/2020 at [facility] [employer] [id number] 08/22/2023 S220GH / / [id number] Envelope Antibacterial Tyrx - [id number] Implanted:Qty: 1 on 12/29/2021 by Fatoumata Roland DO at OR [facility] [employer] : TANMAY [id number] 09/23/2022 CMR [id number] / / [id number] Stent Synergy Xd Mr 3.42z47gb - [id number] Implanted:Qty: 1 on 03/22/2022 by Katalina Pearce MD at [facility] [employer] [id number] 07/17/2023 [id number] / / [id number] Valve Berhane 3 Ultra 26mm - [id number] Implanted:Qty: 1 on 12/09/2022 by Manolo Millan MD at [facility] Float: [place] [employer] [id number] 12/04/2023 [id number] / / documented as of this encounter [...] the patient have Health Care Power of Aerologist? No Care Teams Pneumatic Tester Relationship Specialty Start Date End Date David Umanzor MD [address] [place] [address] PCP - General 02/25/09 documented as of this encounter
--- OUTSIDE RECORDS SUMMARY | 2023-05-28 21:38 | External Medical Summary | Summary of Care ---
Author Name Unknown Organization [facility] Address [address] [place] [address] Phone [phone] Care Team Providers Care Waiter/Waitress Cafeteria Name Role Phone David Umanzor MD Primary Care Provider [phone]- [phone] Reason for Visit * Reason Onset Date Comments Follow Up 04/03/2023 Encounter Details Date Type Department Care Team (Late st Contact Info) Description 04/03/2023 3:00 PM EST Scheduled Telephone [facility], [facility] [address] [place] [address] [facility], Nurse [facility] [address] [place] [address] Allergies Active Allergy Reactions Criticality Noted Date Comments Bactrim 02/09/2010 Cephalosporins Anaphylaxis,Edema face/lips/tongue High 04/11/2009 Anaphylaxis to cefaclor, facial swelling to cephalexin. Ciprofloxacin Low 03/30/2021 Other reaction(s): Nausea Butorphanol Tartrate 02/09/2010 Heart racing Sulfa Antibiotics Hives High 05/22/2002 Other reaction(s): Hives Trimethoprim 04/15/2022 Other reaction(s): Hives documented as of this encounter (statuses as of 04/03/2023) Medications Medication Sig Dispensed Refills Start Date [...] neurological disease, not at goal ([facility]) Test blood sugar 4 times daily Dx: E11.9 1 Kit 0 9 Active PRODIGY LANCETS 28G MISCIndications:DM type 2, not at goal ([facility]) TEST BLOOD SUAGER 4 TIMES A [...] goal of less than 7.0% ([facility]),Type 2 diabetes mellitus with stage 3 chronic kidney disease, with long-term current use of insulin, unspecified whether stage 3a or 3b CKD ([facility]),DM type 2 causing neurological disease, not at goal ([facility]) TEST BLOOD SUGAR UP TO FOUR TIMES DAILY 400 Strip 3 2 Active Fluticasone Propionate 50 MCG/ACT Nasal Suspension (Flonase)Indications:[place] Program Coordinator sanket rhinitis ADMINISTER 2 SPRAYS IN [...] daily 400 Each 3 3 Active Creon 57080-08895 UNIT Oral Capsule Delayed Release Particles (Pancrelipase (Fip-Hqbf-Thnr))Indicatio ns:Pancreatic insufficiency TAKE ONE CAPSULE BY MOUTH [...] bedtime. 2 mL 5 3 Active Nystatin 067571 UNIT/GM External Powder (Nystop) APPLY TO AFFECTED AREAS UNDER THE BREASTS THREE TIMES PER DAY NEEDED 30 g 1 3 Active NovoLOG FlexPen 100 UNIT/ML Subcutaneous Solution Pen-injector (insulin aspart)Indications:Type 2 diabetes mellitus with hyperosmolarity without coma, without long-term current use of insulin ([facility]) Inject 10 units with breakfast, 4 units with lunch, and 10 units with PM meal. Inject 4 units if BG is >200. 30 mL 5 3 Active Acetaminophen 500 MG Oral TabletIndications:HFrEF (heart failure with reduced ejection fraction) ([facility]),Coronary artery disease involving [place] coronary artery of [place] heart without angina pectoris,Nonrheumatic aortic valve stenosis,Cardiac pacemaker in situ,Tachy-wilfrido syndrome ([facility]) Take 1 Tablet by mouth at [...] long-term current use of insulin ([facility]) Inject 30 units daily 45 mL [...] and diastolic congestive heart failure ([facility]) Take 1 Capsule by mouth in [...] HYDROcodone-Acetaminophen 5-325 MG Oral TabletIndications: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 45 Tablet 0 3 Active documented as of this encounter (statuses as of 04/03/2023) Active Problems Problem Noted Date Diagnosed Date [...] 12/21/2016 Overview: Diabetic retinopathy Rheumatoid arthritis of [facility] sites without rheumatoid factor 01/26/2016 Last [...] as of this encounter (statuses as of 04/03/2023) Resolved Problems Problem Noted Date Diagnosed Date [...] [facility] DET[facility] Study: Project # [id number], Computed Tomography Scanner Operator: Manny Santacruz, PhD. SUMMARY: Goal: Establish [...] contact study staff at ; after hours Computed Tomography Scanner Operator via the [facility] loader operator/ground leader . Please contact study team before resolving/deleting from patients problem list. Study phone number: [phone]. Diagnosis changed due to Research Module. Go to Snapshot for study details. Encounter for examination fo r normal comparison and control in clinical research program 11/08/2018 12/10/2021 Overview: DO NOT DELETE - [facility] Study: Project # [id number], Computed Tomography Scanner Operator: Kevin Pearce, MS, MPH. SUMMARY: Goal: [...] contact study staff at ; after hours Computed Tomography Scanner Operator via the [facility] hospital loader operator/ground leader . - Please contact study team before resolving/deleting from patients problem list. Study phone number: [phone]. Diagnosis changed due to Research Module. Go [...] as of this encounter (statuses as of 04/03/2023) Immunizations Name Administration Dates Next Due COVID-19 [...] Telephone Encounter - Michelle Cullen RN - 04/03/2023 12:32 PM EST Phone call for follow up. ER visit- ABT for UTI- Fosfomycin yesterday. Denies burning, dysuria. Right side discomfort unchanged- taking hydrocodone Miralax BID. Patient inquiring about HH referral for wound care RLE. Made aware that order was faxed to [facility] 03/30. Will route to scheduling to ensure [facility] received order. Encouraged to call [facility] with worsening symptoms documented in this encounter Plan of Treatment Upcoming Encounters Date Type Department Care Team (Late st Contact Info) Description 04/13/2023 12:30 PM EST Home Visit [facility] [address] [place] [address] Tatyana Delaney RN [address] [place] [address] 04/14/2023 3:00 PM EST Office Visit Cardiology, [facility] [address] [place] [address] Wood Wong PA-C [address] [place] [address] 04/21/2023 1:00 PM EST Cardiac Studies Cardiology, [facility] [address] [place] [address] [facility] [address] [place] [address] 04/22/2023 11:00 AM EST Office Visit Nephrology, Raphael Marquez [address] [place] [address] [address] Luz Tobias MD [address] [place] [address] [address] 04/25/2023 1:20 PM EST Office Visit [address] [place] [id number] David Umanzor MD [address] [facility] [place] [id number] 05/26/2023 2:00 PM EST Laboratory Laboratory, [place] [address] [place] [address] [facility] [address] [facility], [place] [address] 05/31/2023 1:30 PM EST Imaging Radiology [address] [facility] [address] 06/07/2023 1:20 PM EST Office Visit Sleep Disorders Ctr [facility] 132 [place] [phone] Vira Byrd, [address] [facility] [place] [address] 08/01/2023 2:00 PM EDT Laboratory Laboratory, [place] [address] [place] [facility] [place] [place] [address] [facility] [address] [place] [address] 08/02/2023 2:00 PM EDT Office Visit Rheumatology [place] [address] [facility] [place], [place] [address] Eliot Castelan CRNP [facility] [place] [address] 08/08/2023 12:30 PM EDT Office Visit Hematology/Oncology [facility] [address] [place] [address] Miguel A Alcantar MD [address] [place] [address] 03/07/2024 1:00 PM EST Office Visit Cardiology, [facility] [address] [place] [address] Manolo Millan MD [address] [facility], [place] [address] Scheduled Procedures Name Priority Associated Diagnoses Date/Ti [...] Additional history exists CKD PHOS USE SMARTSET 33231 12/02/2023 08/2 06/2022, 08/06/2022, 08/21/2021, Additional history exists CKD HGB USE SMARTSET 31834 03/25/202403/25, 03/25/2023, 02/28/2023, Additional history exists DXA [...] this encounter Medical Devices Implanted Type Area Blade Groover Device Identifier Shelf Expiration Date Model / Serial / Lot [facility] Medical Embosphere Micrspheres Implanted:Qty: 2 on 11/02/2019 by Ish Grove MD at [facility] Right: Abdomen [employer] 05/11/2022 S220GH / S220GH / [id number] Syr Pf 2ml Embospheres 100-300 - [id number] Implanted:Qty: 1 on 11/14/2020 at [facility] [employer] [id number] 08/22/2023 S220GH / / [id number] Envelope Antibacterial Tyrx - [id number] Implanted:Qty: 1 on 12/29/2021 by Fatoumata Roland DO at OR [facility] [employer] : CRM [id number] 09/23/2022 CMR [id number] / / [id number] Stent Synergy Xd Mr 3.99a52bz - [id number] Implanted:Qty: 1 on 03/22/2022 by Katalina Pearce MD at [facility] [employer] [id number] 07/17/2023 [id number] / / [id number] Valve Berhane 3 Ultra 26mm - [id number] Implanted:Qty: 1 on 12/09/2022 by Manolo Millan MD at [facility] [employer] [id number] 12/04/2023 [id number] / / documented as of this encounter [...] the patient have Health Care Power of Morgue Technician? No Care Teams Waiter/Waitress Cafeteria Relationship Specialty Start Date End Date David Umanzor MD [address] [place] [address] PCP - General 02/25/09 documented as of this encounter
--- OUTSIDE RECORDS SUMMARY | 2023-05-28 21:39 | External Medical Summary | Summary of Care ---
Author Name Unknown Organization [facility] Address [address] [place] [address] Phone [phone] Care Team Providers Care Case Monitor Name Role Phone David Umanzor MD Primary Care Provider +1- [phone] Reason for Visit * Reason Onset Date Comments Fax 03/24/2023 [facility] red/ glucose monitor Vane called from [facility]. Encounter Details Date Type Department Care Team (Late st Contact Info) Description 03/24/2023 Telephone [facility] [address] [place] [address] David Umanzor MD [address] [place] [address] Fax ([facility]/ glucose monitor ... Allergies Active Allergy Reactions Criticality Noted Date Comments Bactrim 02/09/2010 Cephalosporins Anaphylaxis,Edema face/lips/tongue High 04/11/2009 Anaphylaxis to cefaclor, facial swelling to cephalexin. Ciprofloxacin Low 03/30/2021 Other reaction(s): Nausea Butorphanol Tartrate 02/09/2010 Heart racing Sulfa Antibiotics Hives High 05/22/2002 Other reaction(s): Hives Trimethoprim 04/15/2022 Other reaction(s): Hives documented as of this encounter (statuses as of 03/31/2023) Medications Medication Sig Dispensed Refills Start Date [...] 1 2 Active Blood Glucose Monitoring Suppl (VivaRay AUTOCODE BLOOD GLUCOSE) w/Device KITIndications:DM type 2 [...] daily 400 Each 3 3 Active Creon 16497-76741 UNIT Oral Capsule Delayed Release Particles (Pancrelipase (Ctw-Mtdz-Qdcp))Indicati ons:Pancreatic insufficiency TAKE ONE CAPSULE BY MOUTH [...] bedtime. 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 30 Tablet 0 3 03/30/20 23 Discontin ued(Refil l) documented as of this encounter (statuses as of 03/31/2023) Active Problems Problem Noted Date Diagnosed Date [...] to excess calories 0 08/09/2022 Atherosclerosis of [place] ar jania of left lower extremity with intermittent claudication 08/09/2022 Coronary artery disease invo lving [place] coronary artery of [place] heart with angina pectoris 03/22/2022 Last Assessment [...] Overview: Diabetic retinopathy Rheumatoid arthritis of [facility] sites without rheumatoid factor 01/26/2016 Last [...] as of this encounter (statuses as of 03/31/2023) Resolved Problems Problem Noted Date Diagnosed Date [...] [facility] DETECT Study: Project # [id number], Exit Booth Agent: Manny Santacruz, PhD. SUMMARY: Goal: Establish test [...] contact study staff at ; after hours Exit Booth Agent via the [facility] hospital slubber machine operator . Please contact study team before resolving/deleting from patients problem list. Study phone number: [phone]. Diagnosis changed due to Research Module. Go to Snapshot for study details. Encounter for examination fo r normal comparison and control in clinical research program 11/08/2018 12/10/2021 Overview: DO NOT DELETE - [facility] Study: Project # [id number], Exit Booth Agent: Kevin Pearce MS, MPH. SUMMARY: Goal: Establish [...] contact study staff at ; after hours Exit Booth Agent via the [facility] slubber machine operator . - Please contact study team before resolving/deleting from patients problem list. Study phone number: [phone]. Diagnosis changed due to Research Module. Go [...] as of this encounter (statuses as of 03/31/2023) Immunizations Name Administration Dates Next Due COVID-19 [...] encounter Miscellaneous Notes * Telephone Encounter - Papito Gonzales OSA - 03/31/2023 9:49 AM EST Vane called from [facility]. Osiris stated that she did receive the medical record request however it was signed electronically. This needs to be error ed out initialed and then provider needs to sign it and date it himeself. Can not accept electronic signature. Fax it back then to [phone] * Telephone Encounter - Lizz Arteaga LPN - 03/24/2023 3:48 PM EST OV notes faxed 03/24/2023 * Telephone Encounter - Dorothy Gonzalez OSA - 03/24/2023 9:32 AM EST Caller requesting the following information to be faxed: Name/Company of caller: [employer] Information requested to be faxed: most recent office note related to diabetes Fax number: [phone] Attention to Name/Company: Any additional information?: re: diabetic glucose monitor ordered 8.16.23 documented in this encounter Plan of Treatment Upcoming Encounters Date Type Department Care Team (Late st Contact Info) Description 04/01/2023 2:10 PM EST Office Visit Pharmacy, [place] [address] [place] [address] [place] [facility] [address] [place] [address] 04/13/2023 12:30 PM EST Home Visit [facility], [place] [address] [facility] [place] [address] Tatyana Delaney, RN [address] [place] [address] 04/14/2023 3:00 PM EST Office Visit Cardiology, [facility] [address] [place] [place] [address] Wood Wong PA-C [address] [place] [address] 04/21/2023 1:00 PM EST Cardiac Studies Cardiology, [facility] [address] [facility] [place] [address] [facility] [address] [facility] [place] [address] 04/22/2023 11:00 AM EST Office Visit Nephrology, [facility] [address] [facility] [place] [address] Luz Tobias MD [address] [facility] [place] [address] 04/25/2023 1:20 PM EST Office Visit [facility], [place] [address] [place] [address] David Umanzor MD [address] [place] [address] 05/26/2023 2:00 PM EST Laboratory Laboratory, [place] [address] [place] [address] [facility] [address] [place] [address] 05/31/2023 1:30 PM EST Imaging Radiology [address] 132 [place] [address] 06/07/2023 1:20 PM EST Office Visit [facility] Disorders Ctr [facility] [address] [facility] [phone] Vira Byrd, DO [address] [place] [address] 08/01/2023 2:00 PM EDT Laboratory Laboratory, [place] [address] [place] [address] [place], [facility] [address], [place] [address] 08/02/2023 2:00 PM EDT Office Visit Rheumatology [address] [place] [address] Eliot Castelan CRNP [address] [place] [address] [place] [address] 08/08/2023 12:30 PM EDT Office Visit Hematology/Oncology [facility] [address] [facility] [place] [address] Miguel A Alcantar MD [address] [facility] [place] [address] 03/07/2024 1:00 PM EST [facility] [address] Manolo Millan MD [address] [place] [facility] [place] [address] Scheduled Procedures Name Priority Associated Diagnoses [...] Additional history exists CKD PHOS USE SMARTSET 58321 12/02/202311/10, 08/06/2022, 08/21/2021, Additional history exists CKD HGB USE SMARTSET 05625 03/25/202403/25, 03/25/2023, 02/28/2023, Additional history exists DXA [...] this encounter Medical Devices Implanted Type Area Metal Door Assembler Device Identifier Shelf Expiration Date Model / Serial / Lot [employer] Medical Embosphere Micrspheres Implanted:Qty: 2 on 11/02/2019 by Ish Grove MD at [facility] Right: Abdomen [employer] 05/11/2022 S220GH / S220GH / [id number] Syr Pf 2ml Embospheres 100-300 - [id number] Implanted:Qty: 1 on 11/14/2020 at [facility] [employer] [id number] 08/22/2023 S220GH / / [id number] Envelope Antibacterial Tyrx - [id number] Implanted:Qty: 1 on 12/29/2021 by Fatoumata Roland DO at [facility] [employer] : CRM [id number] 09/23/2022 CMR M6122 / / [id number] Stent Synergy Xd Mr 3.46w13ql - [id number] Implanted:Qty: 1 on 03/22/2022 by Katalina Pearce MD at [facility] [employer] [id number] 07/17/2023 [id number] / / [id number] Valve Berhane 3 Ultra 26mm - [id number] Implanted:Qty: 1 on 12/09/2022 by Manolo Millan MD at [facility] [employer] [id number] 12/04/2023 [id number] / / documented as of this encounter [...] the patient have Health Care Power of Lead Military Analyst? No Care Teams Case Monitor Relationship Specialty Start Date End Date David Umanzor MD [address] [facility] [place] [place] [address] PCP - General 02/25/09 documented as of this encounter
--- OUTSIDE RECORDS SUMMARY | 2023-05-28 21:39 | External Medical Summary | Summary of Care ---
Author Name Unknown Organization [facility] Address [address] [place] [address] Phone [phone] Care Team Providers Care Relocation Director Name Role Phone David Umanzor MD Primary Care Provider [phone]- [phone] Reason for Visit * Reason Onset Date Comments Fax 03/24/2023 [facility] red/ glucose monitor Vane called from [facility]. Encounter Details Date Type Department Care Team (Late st Contact Info) Description 03/24/2023 Telephone [facility] [address] [place] [address] David Umanzor MD [address] [place] [address] Fax (Home Care Delivered/ glucose [...] 1 2 Active Blood Glucose Monitoring Suppl (Digiscend AUTOCODE BLOOD GLUCOSE) w/Device KITIndications:DM type 2 causing neurological disease, not at goal ([facility]) Test blood sugar 4 times daily Dx: E11.9 1 Kit 0 9 Active PRODIGY LANCETS 28G MISCIndications:DM type 2, not at goal ([facility]) TEST BLOOD SUAGER 4 TIMES [...] goal of less than 7.0% ([facility]),Type 2 diabetes mellitus with stage 3 chronic kidney disease, with long-term current use of insulin, unspecified whether stage 3a or 3b CKD ([facility]),DM type 2 causing neurological disease, not at goal ([facility]) TEST BLOOD SUGAR UP TO [...] daily 400 Each 3 3 Active Creon 55687-91625 UNIT Oral Capsule Delayed Release Particles (Pancrelipase (Rzp-Aimj-Unhg))Indicati ons:Pancreatic insufficiency TAKE ONE CAPSULE BY MOUTH [...] bedtime. 2 mL 5 3 Active Nystatin 262980 UNIT/GM External Powder (Nystop) APPLY TO AFFECTED AREAS UNDER THE BREASTS THREE TIMES PER DAY NEEDED 30 g 1 3 Active NovoLOG FlexPen 100 UNIT/ML Subcutaneous Solution Pen-injector (insulin aspart)Indications:Type 2 diabetes mellitus with hyperosmolarity without coma, without long-term current use of insulin ([facility]) Inject 10 units with breakfast, 4 units with lunch, and 10 units with PM meal. Inject 4 units if BG is >200. 30 mL 5 3 Active Acetaminophen 500 MG Oral TabletIndications:HFrEF (heart failure with reduced ejection fraction) ([facility]),Coronary artery disease involving samish coronary artery of samish heart without angina pectoris,Nonrheumatic aortic valve stenosis,Cardiac pacemaker in situ,Tachy-wilfrido syndrome ([facility]) Take 1 Tablet by mouth [...] long-term current use of insulin ([facility]) Inject 30 units daily 45 [...] and diastolic congestive heart failure ([facility]) Take 1 Capsule by mouth [...] n 5-325 MG Oral TabletIndications: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 SUMMARY: Goal: Establish test characteristics (sensitivity, [...] contact study staff at ; after hours Electrophonic Engineer via the [facility] hospital felled seam operator . Please contact study team before resolving/deleting from patients problem list. Study phone number: [phone]. Diagnosis changed due to Research Module. Go to Snapshot for study details. Encounter for examination fo r normal comparison and control in clinical research program 11/08/2018 12/10/2021 Overview: DO NOT DELETE - [facility] Study: Project # [id number], Electrophonic Engineer: Kevin Pearce MS, MPH. SUMMARY: Goal: Establish [...] contact study staff at ; after hours Electrophonic Engineer via the [facility] felled seam operator . - Please contact study team before resolving/deleting from patients problem list. Study phone number: [phone]. Diagnosis changed due to Research Module. Go [...] electronic signature. Fax it back then to [phone] * Telephone Encounter - Lizz Arteaga LPN - 03/24/2023 3:48 PM EST OV notes faxed 03/24/2023 * Telephone Encounter - Dorothy Gonzalez OSA - 03/24/2023 9:32 AM EST Caller requesting the following information to be faxed: Name/Company of caller: [facility] Information requested to be faxed: most recent office note related to diabetes Fax number: [phone] Attention to Name/Company: Any additional information?: re: diabetic glucose monitor ordered 8.16.23 documented in this encounter Plan of Treatment Upcoming Encounters Date Type Department Care Team (Late st Contact Info) Description 04/01/2023 2:10 PM EST Office Visit Pharmacy, [place] [address] [place] [address] [place] [facility] [address] [place] [address] 04/13/2023 12:30 PM EST Home Visit [facility], [place] [address] [facility] [place] [address] Tatyana Delaney, RN [address] [place] [address] 04/14/2023 3:00 PM EST Office Visit Cardiology, [facility] [address] [facility] [place] [address] Wood Wong PA-C [address] [place] [address] 04/21/2023 1:00 PM EST Cardiac Studies Cardiology, [facility] 132 [facility] [place] [address] [facility] [address] [facility] [place] [address] 04/22/2023 11:00 AM EST Office Visit Nephrology, [facility] [address] [facility] [place] [place] [address] Luz Tobias MD [address] [facility] [place] [place] [address] 04/25/2023 1:20 PM EST Office Visit [facility], [place] [address] [place] [address] David Umanzor MD [address] [place] [address] 05/26/2023 2:00 PM EST Laboratory Laboratory, [place] [address] [place] [address] [facility] [address] [place] [address] 05/31/2023 1:30 PM EST Imaging Radiology [address] 132 [facility] [place] [address] 06/07/2023 1:20 PM EST Office Visit [facility] [phone] Vira Byrd, DO 132 [place] [address] 08/01/2023 2:00 PM EDT Laboratory Laboratory, [place] [address] [place] [address] [place], [facility] [address] [place] [place], [place] [address] 08/02/2023 2:00 PM EDT Office Visit Rheumatology [address] [place] [address] Eliot Castelan CRNP [address] [place] [address] [place] [address] 08/08/2023 12:30 PM EDT Office Visit Hematology/Oncology [facility] [address] [facility] [place] [place] [address] Miguel A Alcantar MD [address] [facility] [place] [place] [address] 03/07/2024 1:00 PM EST [facility] [address] Manolo Millan MD [address] [place] [facility] [place] [address] Scheduled Procedures Name Priority Associated Diagnoses [...] Additional history exists CKD PHOS USE SMARTSET 29498 12/02/202311/10, 08/06/2022, 08/21/2021, Additional history exists CKD HGB USE SMARTSET 00646 03/25/202403/25, 03/25/2023, 02/28/2023, Additional history exists DXA [...] encounter Medical Devices Implanted Type Area Instrument Maker Device Identifier Shelf Expiration Date Model / Serial / Lot [employer]as Medical Embosphere Micrspheres Implanted:Qty: 2 on 11/02/2019 by Ish Grove MD at [facility] Right: Abdomen [employer] 05/11/2022 S220GH / S220GH / [id number] Syr Pf 2ml Embospheres 100-300 - [id number] Implanted:Qty: 1 on 11/14/2020 at [facility] [employer] [id number] 08/22/2023 S220GH / / [id number] Envelope Antibacterial Tyrx - [id number] Implanted:Qty: 1 on 12/29/2021 by Fatoumata Roland DO at [facility] [employer] : CRM [id number] 09/23/2022 CMR [id number] / / [id number] Stent Synergy Xd Mr 3.31l70rm - [id number] Implanted:Qty: 1 on 03/22/2022 by Katalina Pearce MD at [facility] [employer] [id number] 07/17/2023 [id number] / / [id number] Valve Berhane 3 Ultra 26mm - [id number] Implanted:Qty: 1 on 12/09/2022 by Manolo Millan MD at [facility] [employer] [id number] 12/04/2023 [id number] / / documented as of this encounter [...] the patient have Health Care Power of Investment Specialist? No Care Teams Relocation Director Relationship Specialty Start Date End Date David Umanzor MD [address] [place] [address] PCP - General 02/25/09 documented as of this encounter
--- OUTSIDE RECORDS SUMMARY | 2023-05-28 21:39 | External Medical Summary | Summary of Care ---
Author Name Unknown Organization [facility] Address [address] [facility] [place] [address] Phone [phone] Care Team Providers Care Video Game Maker Name Role Phone David Umanzor MD Primary Care Provider [phone]- [phone] Reason for Visit * Reason Onset Date Comments [facility]: Maintenance 03/31/2023 Encounter Details Date Type Department Care Team (Late st Contact Info) Description 03/31/2023 Telephone [facility], [facility] 132 [facility] [place] [address] [facility], Nurse [facility] 132 [place] [address] [facility]: Maintenance Allergies Active Allergy [...] Active Fluticasone Propionate 50 MCG/ACT Nasal Suspension (Flonase)Indications:Gwot Ia/Ilo Intelligence Support sanket rhinitis ADMINISTER 2 SPRAYS IN EACH [...] daily 400 Each 3 3 Active Creon 03086-05696 UNIT Oral Capsule Delayed Release Particles (Pancrelipase (Vob-Xdvu-Icit))Indicatio ns:Pancreatic insufficiency TAKE ONE CAPSULE BY MOUTH [...] bedtime. 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 SUMMARY: Goal: Establish [...] contact study staff at ; after hours Quilting Supervisor via the [facility] plate and frame filter operator . Please contact study team before resolving/deleting from patients problem list. Study phone number: [phone]. Diagnosis changed due to Research Module. Go to Snapshot for study details. Encounter for examination fo r normal comparison and control in clinical research program 11/08/2018 12/10/2021 Overview: DO NOT DELETE - [facility] Study: Project # [id number], Quilting Supervisor: Kevin Pearce, MS, MPH. SUMMARY: Goal: [...] contact study staff at ; after hours Quilting Supervisor via the [facility] hospital plate and frame filter operator . - Please contact study team before resolving/deleting from patients problem list. Study phone number: [phone]. Diagnosis changed due to Research Module. Go [...] Telephone Encounter - Geovanna Duran RN - 03/31/2023 2:26 PM EST Patient calling with an update for ДМИТРИЙ Joe She said she [facility] today. She had sever Pain in R stomach around to mid back She said they thought it was her liver There was no bleeding, abscess or infections of the liver Could be the "tumors dying". They did find out she had a UTI Started her on Macrobid, which she is picking it up now. Place on follow up call for Tuesday Routed to care team Geovanna Duran. RN [facility] RN [phone] documented in this encounter Plan of Treatment Upcoming Encounters Date Type Department Care Team (Late st Contact Info) Description 04/01/2023 2:10 PM EST Office Visit Pharmacy, [place] [address] [place] [address] [facility] [address] [place] [address] 04/02/2023 1:00 PM EST [facility] [address] [place] [address] [facility], Nurse [facility] [address] [place] [address] 04/13/2023 12:30 PM EST [facility] [address] [place] [address] Tatyana Delaney RN [address] [place] [address] 04/14/2023 3:00 PM EST Office Visit Cardiology, [facility] [address] [place] [address] [address] PAMiranda[facility] [address] [place] [address] 04/21/2023 1:00 PM EST Cardiac Studies Cardiology, [facility] 132 [facility] [place] [address] [facility] 132 [facility] [place] [address] 04/22/2023 11:00 AM EST Office Visit Nephrology, [facility] [address] [place], [place] [address] Luz Tobias MD [address] [place] [address] 04/25/2023 1:20 PM EST Office Visit [facility], [place] [address] [place] [address] David Umanzor MD [address] [place] [address] 05/26/2023 2:00 PM EST Laboratory Laboratory, [place] [address] [place] [address] [facility] [address] [place] [address] 05/31/2023 1:30 PM EST Imaging Radiology [facility] 1st [facility] 132 [facility] [place] [address] 06/07/2023 1:20 PM EST Office Visit [facility] C[facility] 132 [facility] [phone] Vira Byrd, 132 [facility] [place] [address] 08/01/2023 2:00 PM EDT Laboratory Laboratory, [place] [address] [place] [address] [place], [facility] [address] [place] [address] 08/02/2023 2:00 PM EDT Office Visit Rheumatology [facility] [address] [facility] [place] [address] Eliot Castelan CRNP [address] [facility] [place] [address] 08/08/2023 12:30 PM EDT Office Visit Hematology/Oncology [facility] 200 [facility] [place] [address] Miguel A Alcantar MD [address] [place] [address] 03/07/2024 1:00 PM EST Office Visit Cardiology, [facility] [address] [facility] [place] [address] Manolo Millan MD [address] [place] [address] Scheduled Procedures Name Priority Associated [...] Additional history exists CKD PHOS USE SMARTSET 81195 12/02/202311/10, 08/06/2022, 08/21/2021, Additional history exists CKD HGB USE SMARTSET 21581 03/25/202403/25, 03/25/2023, 02/28/2023, Additional history exists DXA [...] encounter Medical Devices Implanted Type Area Clinical Trials Systems Administrator Device Identifier Shelf Expiration Date Model / Serial / Lot Merit Medical Embosphere Micrspheres Implanted:Qty: 2 on 11/02/2019 by Ish Grove MD at [facility] Right: Abdomen [place] [employer] 05/11/2022 S220GH / S220GH / [id number] Syr Pf 2ml Embospheres 100-300 - [id number] Implanted:Qty: 1 on 11/14/2020 at [facility] [employer] [employer] [id number] 08/22/2023 S220GH / / [id number] Envelope Antibacterial Tyrx - [id number] Implanted:Qty: 1 on 12/29/2021 by Fatoumata Roland DO at [facility] [employer] : CRM [id number] 09/23/2022 CMR [id number] / / [id number] Stent Synergy Xd Mr 3.72a35qd - [id number] Implanted:Qty: 1 on 03/22/2022 by Katalina Pearce MD at [facility] [employer] [id number] 07/17/2023 [id number] / / [id number] Valve Berhane 3 Ultra 26mm - [id number] Implanted:Qty: 1 on 12/09/2022 by Manolo Millna MD at [facility] [employer] [id number] 12/04/2023 [id number] / / documented as of this encounter [...] the patient have Health Care Power of Ladies' Hat Trimmer? No Care Teams Video Game Maker Relationship Specialty Start Date End Date David Umanzor MD [address] [place] [address] PCP - General 02/25/09 documented as of this encounter
--- OUTSIDE RECORDS SUMMARY | 2023-05-28 21:39 | External Medical Summary | Summary of Care ---
Author Name Unknown Organization [facility] Address [address] [place] [address] Phone [phone] Care Team Providers Care Property Administrator Name Role Phone David Umanzor MD Primary Care Provider [phone] Reason for Visit * Reason Onset Date Comments Fax 03/24/2023 [facility] red/ glucose monitor Vane called from [facility]. Encounter Details Date Type Department Care Team (Late st Contact Info) Description 03/24/2023 Telephone [facility] [address] [place] [address] David Umanzor MD [address] [place] [address] Fax (Home Care Delivered/ glucose [...] 1 2 Active Blood Glucose Monitoring Suppl ([employer] Wind AUTOCODE BLOOD GLUCOSE) w/Device KITIndications:DM type 2 causing neurological disease, not at goal ([facility]) Test blood sugar 4 times daily Dx: E11.9 1 Kit 0 9 Active PRODIGY LANCETS 28G MISCIndications:DM type 2, not at goal ([facility]) TEST BLOOD SUAGER 4 TIMES [...] goal of less than 7.0% ([facility]),Type 2 diabetes mellitus with stage 3 chronic kidney disease, with long-term current use of insulin, unspecified whether stage 3a or 3b CKD ([facility]),DM type 2 causing neurological disease, not at goal ([facility]) TEST BLOOD SUGAR UP TO [...] daily 400 Each 3 3 Active Creon 58629-65450 UNIT Oral Capsule Delayed Release Particles (Pancrelipase (Gmi-Bwht-Vgrc))Indicati ons:Pancreatic insufficiency TAKE ONE CAPSULE BY MOUTH [...] bedtime. 2 mL 5 3 Active Nystatin 037738 UNIT/GM External Powder (Nystop) APPLY TO AFFECTED AREAS UNDER THE BREASTS THREE TIMES PER DAY NEEDED 30 g 1 3 Active NovoLOG FlexPen 100 UNIT/ML Subcutaneous Solution Pen-injector (insulin aspart)Indications:Type 2 diabetes mellitus with hyperosmolarity without coma, without long-term current use of insulin ([facility]) Inject 10 units with breakfast, 4 units with lunch, and 10 units with PM meal. Inject 4 units if BG is >200. 30 mL 5 3 Active Acetaminophen 500 MG Oral TabletIndications:HFrEF (heart failure with reduced ejection fraction) ([facility]),Coronary artery disease involving port lions coronary artery of port lions heart without angina pectoris,Nonrheumatic aortic valve stenosis,Cardiac pacemaker in situ,Tachy-wilfrido syndrome ([facility]) Take 1 Tablet by mouth [...] long-term current use of insulin ([facility]) Inject 30 units daily 45 [...] and diastolic congestive heart failure ([facility]) Take 1 Capsule by mouth [...] 5-325 MG Oral TabletIndications: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 SUMMARY: Goal: Establish test [...] contact study staff at ; after hours Agriculture Professor via the [facility] hospital media operator . Please contact study team before resolving/deleting from patients problem list. Study phone number: [phone]. Diagnosis changed due to Research Module. Go to Snapshot for study details. Encounter for examination fo r normal comparison and control in clinical research program 11/08/2018 12/10/2021 Overview: DO NOT DELETE - [facility] Study: Project # [id number], Agriculture Professor: Kevin Pearce MS, MPH. SUMMARY: Goal: Establish [...] contact study staff at ; after hours Agriculture Professor via the [facility] media operator . - Please contact study team before resolving/deleting from patients problem list. Study phone number: [phone]. Diagnosis changed due to Research Module. Go [...] electronic signature. Fax it back then to [phone] * Telephone Encounter - Lizz Arteaga LPN - 03/24/2023 3:48 PM EST OV notes faxed 03/24/2023 * Telephone Encounter - Dorothy Gonzalez OSA - 03/24/2023 9:32 AM EST Caller requesting the following information to be faxed: Name/Company of caller: [facility] Information requested to be faxed: most recent office note related to diabetes Fax number: [phone] Attention to Name/Company: Any additional information?: re: diabetic glucose monitor ordered 8.16.23 documented in this encounter Plan of Treatment Upcoming Encounters Date Type Department Care Team (Late st Contact Info) Description 04/01/2023 2:10 PM EST Office Visit Pharmacy, [facility] [address] [place] [address] [facility] [address] [place] [address] 04/02/2023 1:00 PM EST Scheduled Telephone [facility] [place], [address] [place] [address] [facility], Nurse [facility] [address] [facility] [place] [address] 04/13/2023 12:30 PM EST Home Visit [facility], [facility] [address] [facility] [place] [address] Tatyana Delaney, ДМИТРИЙ [address] [facility] [place] [address] 04/14/2023 3:00 PM EST Office Visit Cardiology, [facility] [address] [facility] [place], [place] [address] Wood Wong PA-C 132 [facility] [place] [address] 04/21/2023 1:00 PM EST Cardiac Studies Cardiology, [facility] [address] [place] [address] Adam Marx [facility] 132 [facility] [place], [place] [address] 04/22/2023 11:00 AM EST Office Visit Nephrology, [facility] [address] [facility] [place], [place] [address] Luz Tobias MD [address] [facility] [place], [place] [address] 04/25/2023 1:20 PM EST Office Visit Family Practice, [address] [phone] David Umanzor MD [address] [place] [address] 05/26/2023 2:00 PM EST Laboratory Laboratory, [address] [place] [address] [facility] [address] [place] [address] 05/31/2023 1:30 PM EST Imaging Radiology [facility] [address]st [facility] [address] [place] [address] 06/07/2023 1:20 PM EST Office Visit Sleep Disorders Ctr [facility] [address] [facility] [phone] Vira Byrd, 132 [facility] [place] [address] 08/01/2023 2:00 PM EDT [facility] [address] [place] [phone] [facility] [address] [place] [address] 08/02/2023 2:00 PM EDT Office Visit Rheumatology [facility] [address] [facility] [place] [address] Eliot Castelan CRNP [address] [facility] [place] [address] 08/08/2023 12:30 PM EDT Office Visit Hematology/Oncology [facility] [place] [address] [place] [address] Miguel A Alcantar MD [address] [place] [address] 03/07/2024 1:00 PM EST Office Visit Cardiology, [facility] [address] [place] [address] Manolo Millan MD [address] [place] [address] Scheduled Procedures Name Priority Associated [...] Additional history exists CKD PHOS USE SMARTSET 09320 12/02/202311/10, 08/06/2022, 08/21/2021, Additional history exists CKD HGB USE SMARTSET 08436 03/25/202403/25, 03/25/2023, 02/28/2023, Additional history exists DXA [...] this encounter Medical Devices Implanted Type Area Technical Specialist Cytogenetics Device Identifier Shelf Expiration Date Model / Serial / Lot Fluid Medical Embosphere Micrspheres Implanted:Qty: 2 on 11/02/2019 by Ish Grove MD at [facility] Right: Abdomen [employer] 05/11/2022 S220GH / [id number] / [id number] Syr Pf 2ml Embospheres 100-300 - [id number] Implanted:Qty: 1 on 11/14/2020 at [facility] [employer] [id number] 08/22/2023 S220GH / / [id number] Envelope Antibacterial Tyrx - [id number] Implanted:Qty: 1 on 12/29/2021 by Fatoumata Roladn DO at [facility] [employer] : CRM [id number] 09/23/2022 CMR [id number] / / [id number] Stent Synergy Xd Mr 3.73m67ey - [id number] Implanted:Qty: 1 on 03/22/2022 by Katalina Pearce MD at [facility] [employer] [id number] 07/17/2023 [id number] / / [id number] Valve Berhane 3 Ultra 26mm - [id number] Implanted:Qty: 1 on 12/09/2022 by Manolo Millan MD at [facility] [employer] [id number] 12/04/2023 [id number] / / documented as of this encounter [...] patient have Health Care Power of Installment Agent? No Care Teams Property Administrator Relationship Specialty Start Date End Date David Umanzor MD [address] [place] [address] PCP - General 02/25/09 documented as of this encounter
[2023-05-28] MEDS: ONDANSETRON INJ 2 MG/ML 2 ML VIAL IV STA (21:42)
--- NOTE | 2023-05-28 21:43 | Emergency Department Note ---
Impression & Plan Sepsis, UTI (urinary tract infection), Elevated lactic acid level ED Provider Note NAME: LEON MCKEON AGE: 73 SEX: F : 1950 ARRIVES VIA: Ambulance INFORMANT: Patient ED PROVIDER(S): Bill Hicks DO CHIEF COMPLAINT: Abdominal pain, nausea vomiting and diarrhea HPI: Patient is a 73-year-old female with a past medical history of altered mental status, diabetes, ALONA, hepatocellular cancer, aortic stenosis, who presents to the ER abdominal pain and combination with nausea, vomiting, and diarrhea. Symptoms have been going on for the past 2 to 3 days. She has been unable to keep anything down. She denies any headache or change in vision. No chest pain. She admits to chronic shortness of breath which is unchanged. No dysuria, urgency, or frequency. No other exacerbating or remitting factors. Additional history obtained from EMS who brought her in who notes that she did bradycardia down and become very tachycardic for a brief period of time on the monitor. ADDITIONAL HISTORY OBTAINED: Per HPI Chronic Medical/Social Conditions Affecting Care: Per HPI PAST MEDICAL HISTORY:See Below PAST SURGICAL HISTORY:See Below FAMILY HISTORY:See Below SOCIAL HISTORY:See Below HOME MEDICATIONS:See Below ALLERGIES:See Below VITALS:See Below PHYSICAL EXAMINATION: GENERAL: Sitting up in bed, alert, well appearing, well nourished, no distress, non-toxic EYE EXAM: normal conjunctiva. OROPHARYNX: mucous membranes are dry NECK: supple, no nuchal rigidity, no adenopathy, non-tender LUNGS: Clear to auscultation. Normal chest wall mechanics HEART: no murmurs, S1 normal and S2 normal ABDOMEN: abdomen soft, non-tender, normo-active bowel sounds, no masses, no rebound or guarding. BACK: Back is symmetrical on inspection and there is no deformity, no midline tenderness, no CVA tenderness. SKIN: Petechial rash on the upper chest UPPER EXTREMITIES: upper extremities are grossly normal. LOWER EXTREMITIES: No pitting edema. NEURO EXAM: Normal sensorium, cranial nerves II-XII grossly intact, normal speech, no gross weakness of arms, no gross weakness of legs. MEDICAL DECISION MAKING: Patient is a 73-year-old female who presents ER for above-stated complaint. IV was established blood was obtained. Labs show no significant leukocytosis or anemia. Mild thrombocytopenia at 86 which is fairly consistent with previous. BMP was unremarkable. Creatinine output at 1.8. Lactic acid was elevated at 3. No significant elevation in LFTs. Troponin was elevated at 52. Pro-Keron was elevated 0.8. UA does show a UTI although it was slightly contaminated. Patient was given IV Rocephin which was followed by ertapenem as patient was discharged on that previously. CT abdomen pelvis shows a right-sided ureteral stent. Stone in the left renal pelvis with partially obstruction. Discussed with Dr. Riggs and he recommended admission and IV antibiotics. Discussed with the hospitalist for further evaluation management treatment. Patient was also given IV morphine and Zofran. Also discussed with the [employer] rep as pacer spikes where just within the T waves and were slightly abnormal. [employer] notes that his atrial paced. Consults/Care Managements Discussions: Per [facility] Triage Nursing notes reviewed. Limited review of prior medical records performed Vital Signs: reviewed and remarkable for febrile Differential diagnosis: Differential diagnosis includes etiologies such as sepsis, UTI, pneumonia, metabolic, electrolyte abnormalities, cardiac sources, intracerebral event, toxicologic, neurological, as well as others were entertained. ER treatment provided: See below Diagnostics interpreted by me include EKG and cardiac monitoring as listed below: -Cardiac Monitoring: An order was placed for continuous cardiac monitoring. The monitor shows a rate of 90 with sinus rhythm. -ECG: Atrial paced with extremely prolonged interval rate of 90 Left axis Right bundle branch block No PVCs -Laboratory studies:Interpreted by me as stated above in MDM and shown below. 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 LICA less than 50% stenosis. Aortic stenosis S/p TAVR 12/09/22 Blindness Left eye (since ), right eye sown shut "from the inside"; legally blind Pancreatic lesion 1.1 cm stable small cystic lesion in body of pancreas per 01/21/[address] Ischemic cardiomyopathy EF 25-29% 01/2023 echo Diabetic retinopathy History of atrial fibrillation Single, brief episode (2017) PAF/flutter per cardio records- [id number] score of 3- No AC due to bleeding risk (chronic microscopic hematuria with frequent urological procedures, hemorrhoids, AVMs, thrombocytopenia, liver cancer, etc.) Hypertension Kidney stones hx Liver cancer Stage 1, s/p embolization (injection black poppyseed oil twice) under surveillance by [facility] heme/onc - had radiation seeds placed 10/18/22 Diabetic neuropathy Chronic back pain Chronic kidney disease, stage 3 follows with [facility] nephrology Hernia Current Pancreatitis Mutliple, 15+ episodes (no current issues) History of gastric ulcer Hypothyroidism Diabetes mellitus, type 2 IDDM History of cancer 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), s/p surgical intervention Rheumatoid arthritis on Plaquenil, MTX, prednisone 5mg daily Anemia Iron deficiency Chronic steroid use Glaucoma open angle per [facility] records Transient ischemic attack (TIA) ? TIA vs CVA x2 (20+ years ago), no deficits Migraine Hx years ago Hyperlipidemia Congestive heart failure EF 25-29% on 01/2023 echo Myocardial Infarction Remote silent WA (10+ years ago) Sleep apnea CPAP History of sinus problem Reason for nebulizer and inhalers prn Surgical History S/P TAVR (transcatheter aortic valve replacement) December 2022 at [facility]. mechanical valve. follows with [facility]. S/P cardiac cath [facility] 03/2022 History of cardiac cath 03/22/22 > 1 stent drug eluting> [place] > see report in records Status post laser lithotripsy of ureteral calculus x3 -> November 2019, December 2019, August 2020 History of ERCP History of cystoscopy --multiple-- Cystoscopy, right stent, right laser lithotripsy (08/11/2020): LMA 4.0 unique, atraumatic, LMA attempt x1 at [facility]. No issues per postop anesthesia progress note. History of liver biopsy X 2 Nausea and vomiting after administration of anesthetic agent History of dilatation and curettage x3 S/P foot surgery, left "stepped on a needle and had to have it removed" History of carpal tunnel release of both wrists History of lumbar discectomy History of biopsy of bladder showed chronic cystitis History of total hysterectomy with bilateral salpingo-oophorectomy (BSO) History of appendectomy History of cholecystectomy History of colonoscopy History of esophagogastroduodenoscopy (EGD) History of tooth extraction all top teeth, most of bottom History of partial thyroidectomy right side and ismis removed d/t papillary cancer History of tarsorrhaphy BILT--right eye closed shut, left eye partly closed History of bilateral cataract extraction History of detached retina repair x4 on right eye; sx to sew right eye shut in 2017 Family History Father Family history of diabetes mellitus Family history of reaction to anesthesia difficulty waking Mother Family history of diabetes mellitus Sister Family history of diabetes mellitus Brother Family history of diabetes mellitus Grandmother (Maternal) Family history of diabetes mellitus Grandmother (Paternal) Family history of diabetes mellitus Son Family history of diabetes mellitus Social History Smoking Status: Never smoker Second Hand Exposure: No; Do You Dip or Chew Tobacco: No; Hx Alcohol Use: No Hx Substance Use: No Preferred Language: Chinese Communication Ability: Effective Communication Ability Comment: pt is legally blind Communication Tools: Other Visual Impairment: Blindness Hearing Ability: Normal Pipe Buffer Required: No Beliefs That Will Affect Care: None marital status: Current Living Situation: Spouse current occupational status: disabled Feels Safe at Home: No Is there a partner from a previous relationship who is making you feel unsafe now?: No Diet: diabetic, low carbohydrate and low salt Diet Comment: low fat caffeine: Yes during the past year weight has: remained stable Do you think of yourself as: straight/heterosexual Gender Identity: Female Assistive Devices: CPAP, Walker and Wheelchair Allergies Allergies Allergy/AdvReac Type Severity Reaction Status Date / Time cephalexin Allergy Severe Anaphylaxis Verified 02/03/23 09:32 Cephalosporins Allergy Severe Anaphylaxis Verified 02/03/23 09:32 Sulfa (Sulfonamide Allergy Intermediate Hives Verified 02/03/23 09:32 Antibiotics) sulfamethoxazole Allergy Intermediate Hives Verified 02/03/23 09:32 [From Bactrim] trimethoprim [From Bactrim] Allergy Intermediate Hives Verified 02/03/23 09:32 butorphanol AdvReac Intermediate Rapid heart Verified 02/03/23 09:32 ciprofloxacin AdvReac Intermediate Nausea Verified 02/03/23 09:32 Home Meds Home Medications Medication Instructions Recorded Confirmed aspirin 81 mg chewable tablet 81 mg PO QAM 11/02/18 02/03/23 (Aspirin Childrens) atorvastatin 40 mg tablet 40 mg PO HS 11/02/18 02/03/23 erythromycin 5 mg/gram (0.5 %) eye 1 applic OPB QID 11/02/18 02/03/23 ointment fluticasone propionate 50 2 spray intranasal QA 11/02/18 02/03/23 mcg/actuation nasal spray,suspension (Flonase Allergy Relief) folic acid 1 mg tablet 1 mg PO QAM 11/02/18 02/03/23 hydroxychloroquine 200 mg tablet 400 mg PO HS 11/02/18 02/03/23 (Plaquenil) levothyroxine 125 mcg tablet 125 mcg PO DAILYBB 11/02/18 02/03/23 lorazepam 0.5 mg tablet 0.5 mg PO TID PRN Anxiety 11/02/18 02/03/23 meclizine 25 mg tablet 25 mg PO TID PRN Dizziness 11/02/18 02/03/23 multivitamin with iron 1 tab PO QAM 11/02/18 02/03/23 nitroglycerin 0.4 mg sublingual 0.4 mg sublingual UD PRN Chest Pain 11/02/18 02/03/23 tablet omeprazole 20 mg tablet,delayed 20 mg PO QAM 11/02/18 02/03/23 release prednisone 5 mg tablet 5 mg PO QAM 11/02/18 02/03/23 saliva stimulant comb. no.3 1 spray mucous membrane QID 11/02/18 02/03/23 (Biotene Moisturizing Mouth mucosal spray) brimonidine 0.2 % eye drops 1 drp OPL BID 10/20/19 02/03/23 cyanocobalamin (vitamin B-12) 1,500 mcg PO QPM 10/20/19 02/03/23 1,000 mcg tablet (Vitamin B-12) hydrocodone 5 mg-acetaminophen 325 1 tab PO Q6H PRN Pain,mild 03/26/21 02/03/23 mg tablet melatonin 5 mg tablet 5 mg PO HS 03/30/21 02/03/23 Probiotic Daily 1 cap PO QAM 08/30/21 02/03/23 betaxolol 0.5 % eye drops 1 drp OPL AMHS 08/30/21 02/03/23 magnesium oxide 400 mg (241.3 mg 400 mg PO QAM 08/30/21 02/03/23 magnesium) tablet netarsudil 0.02 % eye drops 1 drp OPL HS 08/30/21 02/03/23 (Rhopressa) methotrexate sodium 2.5 mg tablet 10 mg PO WK 02/11/22 02/03/23 clopidogrel 75 mg tablet (Plavix) 75 mg PO QAM 04/08/22 02/03/23 insulin aspart U-100 100 unit/mL See Rx Instructions .Route .COMPLEX 08/19/22 02/03/23 (3 mL) subcutaneous pen (Novolog FlexPen U-100 Insulin aspart) insulin glargine 100 unit/mL 30 unit subcut QAM 08/19/22 02/03/23 subcutaneous solution (Lantus U-100 Insulin) [id number] 1 cap PO QID 09/02/22 02/03/23 24,000-76,000-120,000 unit capsule,delayed rel (Creon) acetaminophen 500 mg tablet 500 mg PO HS 11/05/22 02/03/23 (Tylenol Extra Strength) ammonium lactate 12 % topical cream 1 applic topical HS PRN Afected 11/05/22 02/03/23 area ascorbic acid (vitamin C) 500 mg 500 mg PO QAM 11/05/22 02/03/23 tablet (Vitamin C) iron,carbonyl 65 mg-vitamin C 125 1 tab PO DAILY 11/05/22 02/03/23 mg tablet,delayed release (Vitron-C) nystatin 100,000 unit/gram topical 1 applic topical TID PRN SKIN 11/05/22 02/03/23 powder IRRITATION UNDER BREASTS spironolactone 25 mg tablet 25 mg PO QAM 11/05/22 02/03/23 tizanidine 2 mg tablet 2 mg PO Q6 PRN Muscle Spasm 11/05/22 02/03/23 acetaminophen 650 mg 650 mg PO DIRECTED PRN Pain 12/18/22 02/03/23 tablet,extended release (Tylenol Arthritis Pain) gabapentin 300 mg capsule 300 mg PO BID 12/18/22 02/03/23 latanoprost 0.005 % eye drops 1 drp OPB PM 12/18/22 02/03/23 metoprolol succinate 25 mg 12.5 mg PO BID 12/18/22 02/03/23 tablet,extended release 24 hr potassium chloride 20 mEq 40 meq PO QAM 12/18/22 02/03/23 tablet,extended release(part/cryst) torsemide 100 mg tablet 100 mg PO QAM 12/18/22 02/03/23 ciprofloxacin HCl 500 mg tablet 500 mg PO BID UTI 01/26/23 02/03/23 ferrous sulfate 325 mg (65 mg 325 mg PO QDL 01/26/23 02/03/23 iron) tablet,delayed release potassium chloride 20 mEq 20 meq PO QPM 01/26/23 02/03/23 tablet,extended release Previous Rx's Medication Instructions Recorded clotrimazole 1 % topical cream 1 applic EXT BID #30 grams 12/24/22 ciprofloxacin HCl 500 mg tablet 500 mg PO Q12H #6 tabs 02/03/23 (Cipro) oxybutynin chloride 5 mg tablet 5 mg PO Q8H PRN bladder spasms #20 02/03/23 tabs phenazopyridine 200 mg tablet 200 mg PO Q8H PRN pain #10 tabs 02/03/23 (Pyridium) tamsulosin 0.4 mg capsule 0.4 mg PO HS #30 caps 05/27/23 Results & Data (ED) Vital Signs Vital Signs - 24 hr 05/28/23 21:27 05/28/23 21:38 05/28/23 21:38 Temperature 37.7 C H Temperature Source Oral Pulse Rate 87 88 91 H Pulse Rate from SpO2 Sensor 91 H Respiratory Rate 25 H 18 Blood Pressure 100/65 Blood Pressure [Left Arm] Blood Pressure Mean 76 Blood Pressure Mean [Left Arm] Pulse Oximetry 100 93 Oxygen Delivery Method Room Air Sepsis Recent Fever Within 48 Hours No Sepsis New/Unexplained Change in Mental Status No Sepsis Action Taken by Nursing No Action Required 05/28/23 21:45 05/28/23 22:00 05/28/23 22:02 Temperature Temperature Source Pulse Rate 93 H 97 H 97 H Pulse Rate from SpO2 Sensor Respiratory Rate 19 20 29 H Blood Pressure Blood Pressure [Left Arm] Blood Pressure Mean Blood Pressure Mean [Left Arm] Pulse Oximetry Oxygen Delivery Method Sepsis Recent Fever Within 48 Hours Sepsis New/Unexplained Change in Mental Status Sepsis Action Taken by Nursing 05/28/23 22:03 05/28/23 22:03 05/28/23 22:05 Temperature Temperature Source Pulse Rate 96 H Pulse Rate from SpO2 Sensor Respiratory Rate 28 H Blood Pressure 130/70 Blood Pressure [Left Arm] 130/70 Blood Pressure Mean 94 Blood Pressure Mean [Left Arm] 90 Pulse Oximetry Oxygen Delivery Method Sepsis Recent Fever Within 48 Hours Sepsis New/Unexplained Change in Mental Status Sepsis Action Taken by Nursing 05/28/23 22:15 05/28/23 22:41 05/28/23 22:43 Temperature Temperature Source Pulse Rate 94 H 89 Pulse Rate from SpO2 Sensor Respiratory Rate 26 H 26 H Blood Pressure 104/74 Blood Pressure [Left Arm] Blood Pressure Mean 88 Blood Pressure Mean [Left Arm] Pulse Oximetry Oxygen Delivery Method Sepsis Recent Fever Within 48 Hours Sepsis New/Unexplained Change in Mental Status Sepsis Action Taken by Nursing 05/28/23 22:43 05/28/23 22:45 05/28/23 23:00 Temperature Temperature Source Pulse Rate 90 88 Pulse Rate from SpO2 Sensor Respiratory Rate 22 24 Blood Pressure 115/58 L Blood Pressure [Left Arm] Blood Pressure Mean 81 Blood Pressure Mean [Left Arm] Pulse Oximetry Oxygen Delivery Method Sepsis Recent Fever Within 48 Hours Sepsis New/Unexplained Change in Mental Status Sepsis Action Taken by Nursing 05/28/23 23:00 05/28/23 23:15 05/28/23 23:30 Temperature Temperature Source Pulse Rate 86 84 80 Pulse Rate from SpO2 Sensor 80 Respiratory Rate 25 H 26 H 19 Blood Pressure Blood Pressure [Left Arm] Blood Pressure Mean Blood Pressure Mean [Left Arm] Pulse Oximetry 94 Oxygen Delivery Method Sepsis Recent Fever Within 48 Hours Sepsis New/Unexplained Change in Mental Status Sepsis Action Taken by Nursing 05/28/23 23:30 Temperature Temperature Source Pulse Rate Pulse Rate from SpO2 Sensor Respiratory Rate Blood Pressure 123/62 Blood Pressure [Left Arm] Blood Pressure Mean 93 Blood Pressure Mean [Left Arm] Pulse Oximetry Oxygen Delivery Method Sepsis Recent Fever Within 48 Hours Sepsis New/Unexplained Change in Mental Status Sepsis Action Taken by Nursing Laboratory Data 05/28/23 21:54 05/28/23 21:54 Lab Results 05/28/23 05/28/23 05/28/23 Range/Units 21:54 22:00 23:18 WBC 8.23 (4.8-10.8) K/ul RBC 4.11 L (4.20-5.40) M/uL Hgb 11.8 L (12.0-16.0) g/dl POC Hgb 12.2 (12.0-16.0) g/dl Hct 37.6 (37.0-47.0) % POC Hct 36 L (37-47) % MCV 91.5 (80.0-100.0) fL MCH 28.7 (25.0-34.0) pg MCHC 31.4 L (32.0-36.0) g/dL RDW Std Deviation 65.2 H (36.4-46.3) fL RDW Coeff of Juani 20.3 H (11.5-14.5) % Plt Count 86 L (130-400) K/uL MPV 10.4 (9.4-12.4) fL Immature Gran % (Auto) 0.5 % Neut % (Auto) 98.3 % Lymph % (Auto) 0.7 % [place] % (Auto) 0.4 % Eos % (Auto) 0.0 % Baso % (Auto) 0.1 % Neut # (Auto) 8.09 H (1.40-6.50) K/uL Lymph # (Auto) 0.06 L (1.20-3.40) K/uL [place] # (Auto) 0.03 L (0.11-0.59) K/uL Eos # (Auto) 0.00 (0.00-0.50) K/uL Baso # (Auto) 0.01 (0.00-0.20) K/uL Immature Gran # (Auto) 0.04 (0.01-0.20) K/uL Tear Drop Cells 1+ Ovalocytes 1+ Echinocytes 1+ POC Sodium 133 L (135-144) mmol/L Sodium 133 L (136-145) mmol/L POC Potassium 4.3 (3.3-5.0) mmol/L Potassium 4.3 (3.5-5.1) mmol/L POC Chloride 99 L (101-112) mmol/L Chloride 98 (98-107) mmol/L Carbon Dioxide 21 (21-32) mmol/L POC Total CO2 22 L (24-31) mmol/L Anion Gap 14 H (3-11) POC Anion Gap 17.0 (16-25) mmol/L POC BUN 53 H (7-18) mg/dl BUN 61 H (6-23) mg/dl Creatinine 1.82 H (0.6-1.2) mg/dl POC Creatinine 1.9 H (0.6-1.3) mg/dl Est Cr Clr Drug Dosing 32.2 ml/min Est GFR ( Amer) 31.4 ml/min Est GFR (Non-Af Amer) 27.1 ml/min BUN/Creatinine Ratio 33.5 H (10-20) Glucose 143 H (70-99(Fasting)) mg/dl POC Glucose (other) 147 H (70-99) mg/dl Lactate 3.0 H* (0.4-2.0) mmol/L Calcium 9.6 (8.6-10.3) mg/dl POC Ioniz Calcium [place] 1.12 (1.12-1.32) mmol/l Magnesium 2.0 (1.7-2.4) mg/dl Total Bilirubin 2.2 H (0.2-1.0) mg/dl Direct Bilirubin 0.9 H (0-0.2) mg/dl AST 52 H (13-39) U/L ALT 37 (7-52) U/L Alkaline Phosphatase 216 H (34-104) U/L Troponin I High Sens 52.5 H* (0-14) pg/ml Total Protein 6.5 (6.0-8.3) gm/dl Albumin 3.5 (3.4-5.0) gm/dl Procalcitonin 0.88 H (0-0.5) ng/ml Urine Color Yellow Urine Appearance Cloudy A (Clear) Urine pH 5.5 (4.5-7.5) Ur Specific [place] 1.010 (1.000-1.030) Urine Protein Negative (Negative) Urine Glucose (UA) Negative (Negative) Urine Ketones Negative (Negative) Urine Blood 1+ H (Negative) Urine Nitrite Positive A (Negative) Urine Bilirubin Negative (Negative) Urine Urobilinogen Negative (Negative) Ur Leukocyte Esterase 3+ H (Negative) Urine WBC (Auto) >30 H (0-5) /hpf Urine RBC (Auto) 0-4 (0-4) /hpf U Hyaline Cast (Auto) 10-30 H (0-5) /lpf U Epithel Cells (Auto) 20-30 H (0-5) /lpf Urine Bacteria (Auto) Negative (Negative) Urine Yeast Budding A (None Prsent) 05/28/23 Range/Units 23:55 WBC (4.8-10.8) K/ul RBC (4.20-5.40) M/uL Hgb (12.0-16.0) g/dl POC Hgb (12.0-16.0) g/dl Hct (37.0-47.0) % POC Hct (37-47) % MCV (80.0-100.0) fL MCH (25.0-34.0) pg MCHC (32.0-36.0) g/dL RDW Std Deviation (36.4-46.3) fL RDW Coeff of Juani (11.5-14.5) % Plt Count (130-400) K/uL MPV (9.4-12.4) fL Immature Gran % (Auto) % Neut % (Auto) % Lymph % (Auto) % [place] % (Auto) % Eos % (Auto) % Baso % (Auto) % Neut # (Auto) (1.40-6.50) K/uL Lymph # (Auto) (1.20-3.40) K/uL [place] # (Auto) (0.11-0.59) K/uL Eos # (Auto) (0.00-0.50) K/uL Baso # (Auto) (0.00-0.20) K/uL Immature Gran # (Auto) (0.01-0.20) K/uL Tear Drop Cells Ovalocytes Echinocytes POC Sodium (135-144) mmol/L Sodium (136-145) mmol/L POC Potassium (3.3-5.0) mmol/L Potassium (3.5-5.1) mmol/L POC Chloride (101-112) mmol/L Chloride (98-107) mmol/L Carbon Dioxide (21-32) mmol/L POC Total CO2 (24-31) mmol/L Anion Gap (3-11) POC Anion Gap (16-25) mmol/L POC BUN (7-18) mg/dl BUN (6-23) mg/dl Creatinine (0.6-1.2) mg/dl POC Creatinine (0.6-1.3) mg/dl Est Cr Clr Drug Dosing ml/min Est GFR ( Amer) ml/min Est GFR (Non-Af Amer) ml/min BUN/Creatinine Ratio (10-20) Glucose (70-99(Fasting)) mg/dl POC Glucose (other) (70-99) mg/dl Lactate 2.3 H* (0.4-2.0) mmol/L Calcium (8.6-10.3) mg/dl POC Ioniz Calcium [place] (1.12-1.32) mmol/l Magnesium (1.7-2.4) mg/dl Total Bilirubin (0.2-1.0) mg/dl Direct Bilirubin (0-0.2) mg/dl AST (13-39) U/L ALT (7-52) U/L Alkaline Phosphatase (34-104) U/L Troponin I High Sens (0-14) pg/ml Total Protein (6.0-8.3) gm/dl Albumin (3.4-5.0) gm/dl Procalcitonin (0-0.5) ng/ml Urine Color Urine Appearance (Clear) Urine pH (4.5-7.5) Ur Specific [place] (1.000-1.030) Urine Protein (Negative) Urine Glucose (UA) (Negative) Urine Ketones (Negative) Urine Blood (Negative) Urine Nitrite (Negative) Urine Bilirubin (Negative) Urine Urobilinogen (Negative) Ur Leukocyte Esterase (Negative) Urine WBC (Auto) (0-5) /hpf Urine RBC (Auto) (0-4) /hpf U Hyaline Cast (Auto) (0-5) /lpf U Epithel Cells (Auto) (0-5) /lpf Urine Bacteria (Auto) (Negative) Urine Yeast (None Prsent) Administered Medications Discontinued Medications Sodium Chloride (Nss) 1,000 mls @ 999 mls/hr IV .Q1H1M ONE Stop: 05/28/23 22:35 Last Infusion: 05/28/23 23:23 Dose: Infused Documented By: Admin: 05/28/23 21:45 Dose: 999 mls/hr Documented By: ACC Piperacillin Sod/Tazobactam Sod (Zosyn) 4.5 gm in 100 mls @ 200 mls/hr IV NOW ONE Stop: 05/28/23 22:05 Last Infusion: 05/28/23 23:23 Dose: Infused Documented By: Admin: 05/28/23 22:46 Dose: 200 mls/hr Documented By: ACC Sodium Chloride (Nss) 1,000 mls @ 999 mls/hr IV .Q1H1M ONE Stop: 05/29/23 00:01 Last Admin: 05/28/23 23:24 Dose: 999 mls/hr Documented By: ACC Morphine Sulfate (Morphine Sulfate 2 Mg/Ml Carp) 2 mg IV NOW STA Stop: 05/28/23 23:03 Last Admin: 05/28/23 23:22 Dose: 2 mg Documented By: ACC Ondansetron HCl (Ondansetron Inj 2 Mg/Ml 2 Ml Vial) 4 mg IV NOW STA Stop: 05/28/23 21:37 Last Admin: 05/28/23 21:42 Dose: 4 mg Documented By: ACC Imaging Data Radiologist's Impression: Abdomen/Pelvis CT 05/28/23 22:03 Exam(s): CT ABDOMEN + PELVIS Without Contrast EXAM: CT Abdomen and Pelvis Without Intravenous Contrast CLINICAL HISTORY: Reason for exam: abd pain sepsis. TECHNIQUE: Axial computed tomography images of the abdomen and pelvis without intravenous contrast. CTDI is 34.95 mGy and DLP is 1635.27 mGy-cm. Automated exposure control was utilized for the study. A dose lowering technique was utilized adhering to the principles of ALARA. COMPARISON: CT abdomen and pelvis September 17, 2021. FINDINGS: Lung bases: Unremarkable. No mass. No consolidation. Heart: Cardiomegaly. Pacemaker leads prosthetic aortic valve. ABDOMEN: Liver: Unremarkable. Gallbladder and bile ducts: Cholecystectomy clips. No ductal dilation. Pancreas: Unremarkable. No ductal dilation. Spleen: Unremarkable. No splenomegaly. Adrenals: Unremarkable. No mass. Kidneys and ureters: Partially obstructing stone in the LEFT renal pelvis measures 8 mm. Stomach and bowel: Diverticulosis, without acute diverticulitis. No small bowel obstruction. No free intraperitoneal air. PELVIS: Appendix: No findings to suggest acute appendicitis. Bladder: Unremarkable. No stones. Reproductive: Hysterectomy. ABDOMEN and PELVIS: Intraperitoneal space: Unremarkable. No free air. No significant fluid collection. Bones/joints: Degenerative changes of the spine. No acute fracture. No dislocation. Soft tissues: Fat-containing ventral abdominal wall hernia. Anasarca. Vasculature: Atherosclerotic changes of the aorta. No abdominal aortic aneurysm. Lymph nodes: Unremarkable. No enlarged lymph nodes. Tubes, lines and devices: Atrophy of the RIGHT kidney with a right- sided nerve ureteral stent. Bilateral renal cysts. IMPRESSION: 1. Partially obstructing stone in the LEFT renal pelvis measures 8 mm. 2. Cholecystectomy clips. 3. Atrophy of the RIGHT kidney with a right-sided nerve ureteral stent. Bilateral renal cysts. 4. Hysterectomy. 5. Diverticulosis, without acute diverticulitis. No small bowel obstruction. No free intraperitoneal air. Electronically signed by: Roly Nelson MD 05/28/23 22:57 PM Discharge Plan Visit Data Chief Complaint: Abdominal Pain Stated Complaint: SEVERE NAUSEA ED Provider: Bill Hicks Discharge Problem: Sepsis, UTI (urinary tract infection), Elevated lactic acid level Forms Stand Alone Forms: My [facility] Prescriptions Prescriptions: No Action tamsulosin 0.4 mg capsule 0.4 mg PO HS Qty: 30 5RF atorvastatin 40 mg Tablet 40 mg PO HS prednisone 5 mg Tablet 5 mg PO QAM lorazepam 0.5 mg Tablet 0.5 mg PO TID PRN (Reason: Anxiety) meclizine 25 mg Tablet 25 mg PO TID PRN (Reason: Dizziness) erythromycin 5 mg/gram (0.5 %) Ointment 1 applic OPB QID Patient Comments: left eye Rx Instructions: 0.25 INCH BOTH EYES levothyroxine 125 mcg Tablet 125 mcg PO DAILYBB nitroglycerin 0.4 mg Tablet, Sublingual 0.4 mg sublingual UD PRN (Reason: Chest Pain) Rx Instructions: i tab every 5 min as needed up to 3 doses in 15 min aspirin [Aspirin Childrens] 81 mg Tablet,Chewable 81 mg PO QAM folic acid 1 mg Tablet 1 mg PO QAM hydroxychloroquine [Plaquenil] 200 mg Tablet 400 mg PO HS fluticasone propionate [Flonase Allergy Relief] 50 mcg/actuation [place],Suspension 2 spray INTRANASAL QAM multivitamin with iron Tablet 1 tab PO QAM omeprazole 20 mg Tablet,Delayed Release (Dr/Ec) 20 mg PO QAM Biotene Moisturizing Mouth [place],Non-Aerosol 1 spray MUCOUS MEMBRANE QID Creon 24,000-76,000 -120,000 unit capsule,delayed release(DR/EC) 1 cap PO QID Rx Instructions: takes with meals and snacks brimonidine 0.2 % drops 1 drp OPL BID Patient Comments: in left eye cyanocobalamin (vitamin B-12) [Vitamin B-12] 1,000 mcg Tablet 1,500 mcg PO QPM methotrexate sodium 2.5 mg tablet 10 mg PO WK insulin glargine [Lantus U-100 Insulin] 100 unit/mL Solution 30 unit SUBCUT QAM Rx Instructions: daily am insulin aspart U-100 [Novolog FlexPen U-100 Insulin] 100 unit/mL (3 mL) Insulin Pen See Rx Instructions .ROUTE .COMPLEX Rx Instructions: 10 units am, 4 units at noon,10 units with dinner. INJECT 4 UNITS BSG >200. ammonium lactate 12 % Cream 1 applic TOPICAL HS PRN (Reason: Afected area) nystatin 100,000 unit/gram powder 1 applic TOPICAL TID PRN (Reason: SKIN IRRITATION UNDER BREASTS) tizanidine 2 mg tablet 2 mg PO Q6 PRN (Reason: Muscle Spasm) acetaminophen [Tylenol Extra Strength] 500 mg Tablet 500 mg PO HS spironolactone 25 mg Tablet 25 mg PO QAM ascorbic acid (vitamin C) [Vitamin C] 500 mg Tablet 500 mg PO QAM Vitron-C 65 mg iron- 125 mg Tablet,Delayed Release (Dr/Ec) 1 tab PO DAILY hydrocodone-acetaminophen 5-325 mg Tablet 1 tab PO Q6H PRN (Reason: Pain,mild) melatonin 5 mg Tablet 5 mg PO HS Rhopressa 0.02 % drops 1 drp OPL HS betaxolol 0.5 % drops 1 drp OPL [facility] Patient Comments: to left eye Rx Instructions: apply to affected eye magnesium oxide 400 mg (241.3 mg magnesium) tablet 400 mg PO QAM Probiotic Daily 1 cap PO QAM clopidogrel [Plavix] 75 mg Tablet 75 mg PO QAM potassium chloride 20 mEq Tablet Extended Release 20 meq PO QPM ciprofloxacin HCl 500 mg tablet 500 mg PO BID ferrous sulfate 325 mg (65 mg iron) tablet,delayed release (DR/EC) 325 mg PO QDL phenazopyridine [Pyridium] 200 mg tablet 200 mg PO Q8H PRN (Reason: pain) Qty: 10 0RF ciprofloxacin HCl [Cipro] 500 mg tablet 500 mg PO Q12H Qty: 6 0RF oxybutynin chloride 5 mg tablet 5 mg PO Q8H PRN (Reason: bladder spasms) Qty: 20 0RF latanoprost 0.005 % Drops 1 drp OPB PM acetaminophen [Tylenol Arthritis Pain] 650 mg Tablet Extended Release 650 mg PO DIRECTED PRN (Reason: Pain) potassium chloride 20 mEq Tablet,Er Particles/Crystals 40 meq PO QAM torsemide 100 mg Tablet 100 mg PO QAM Rx Instructions: TO START 12/18/22 gabapentin 300 mg Capsule 300 mg PO BID metoprolol succinate 25 mg Tablet Extended Release 24 Hr 12.5 mg PO BID clotrimazole 1 % Cream 1 applic EXT BID Qty: 30 0RF Rx Instructions: apply to rash area on left lower leg anteriorly, two times a day. Referrals Referrals: David Umanzor MD [Primary Care Provider] - Discharge Problem: Sepsis Qualifiers: Sepsis type: sepsis due to unspecified organism Sepsis acute organ dysfunction status: unspecified Qualified Code(s): A41.9 - Sepsis, unspecified organism UTI (urinary tract infection) Qualifiers: Urinary tract infection type: acute pyelonephritis Qualified Code(s): N10 - Acute pyelonephritis
[2023-05-28] MEDS: SODIUM CHLORIDE 0.9% 1,000 ML IV ONE ×2 (21:45→23:24)
[2023-05-28 22:11] LABS: Hematocrit (blood only) 37.6 % (37.0-47.0); Hemoglobin 11.8 g/dl (12.0-16.0); Mean Corpuscular Hemoglobin 28.7 pg (25.0-34.0); Mean Corpuscular Hgb Conc 31.4 g/dL (32.0-36.0); Mean Corpuscular Volume 91.5 fL (80.0-100.0); Mean Platelet Volume 10.4 fL (9.4-12.4); Platelet Count 86 K/uL (130-400); RDW Coefficient of Variation 20.3 % (11.5-14.5); RDW Standard Deviation 65.2 fL (36.4-46.3); Red Blood Count 4.11 M/uL (4.20-5.40); White Blood Count 8.23 K/ul (4.8-10.8)
[2023-05-28 22:12] LABS: iSTAT Creatinine 1.9 mg/dl (0.6-1.3); iSTAT Hemoglobin 12.2 g/dl (12.0-16.0); iSTAT Ionized Calcium 1.12 mmol/l (1.12-1.32); iSTAT Potassium 4.3 mmol/L (3.3-5.0)
[2023-05-28 22:27] LABS: Albumin Level 3.5 gm/dl (3.4-5.0); BUN Creatinine Ratio 33.5 (10-20); Bilirubin Direct 0.9 mg/dl (0-0.2); Bilirubin,Total 2.2 mg/dl (0.2-1.0); Calcium 9.6 mg/dl (8.6-10.3); Creatinine Clr Calc Pharmacy 32.2 ml/min; Est GFR (African American) 31.4 ml/min; Est GFR (Non-African American) 27.1 ml/min; Potassium 4.3 mmol/L (3.5-5.1); Total Protein 6.5 gm/dl (6.0-8.3)
[2023-05-28 22:28] LABS: Basophils # (auto) 0.01 K/uL (0.00-0.20); Basophils % (auto) 0.1 %; Echinocytes 1+; Immature Granulocytes # (auto) 0.04 K/uL (0.01-0.20); Immature Granulocytes % (auto) 0.5 %; Lymphocytes # (auto) 0.06 K/uL (1.20-3.40); Lymphocytes % (auto) 0.7 %; Monocytes # (auto) 0.03 K/uL (0.11-0.59); Monocytes % (auto) 0.4 %; Neutrophils # (auto) 8.09 K/uL (1.40-6.50); Neutrophils % (auto) 98.3 %; Ovalocytes 1+; Tear Drop Cells 1+
[2023-05-28 22:36] LABS: Troponin I High Sensitivity 52.5 pg/ml (0-14)
[2023-05-28] MEDS: PIPERACILLIN/TAZOBACTAM 4.5 GM/100 ML BAG IV ONE (22:46)
--- NOTE | 2023-05-28 22:58 | CT Scan Report ---
Exam(s): CT ABDOMEN + PELVIS Without Contrast EXAM: CT Abdomen and Pelvis Without Intravenous Contrast CLINICAL HISTORY: Reason for exam: abd pain sepsis. TECHNIQUE: Axial computed tomography images of the abdomen and pelvis without intravenous contrast. CTDI is 34.95 mGy and DLP is 1635.27 mGy-cm. Automated exposure control was utilized for the study. A dose lowering technique was utilized adhering to the principles of ALARA. COMPARISON: CT abdomen and pelvis September 17, 2021. FINDINGS: Lung bases: Unremarkable. No mass. No consolidation. Heart: Cardiomegaly. Pacemaker leads prosthetic aortic valve. ABDOMEN: Liver: Unremarkable. Gallbladder and bile ducts: Cholecystectomy clips. No ductal dilation. Pancreas: Unremarkable. No ductal dilation. Spleen: Unremarkable. No splenomegaly. Adrenals: Unremarkable. No mass. Kidneys and ureters: Partially obstructing stone in the LEFT renal pelvis measures 8 mm. Stomach and bowel: Diverticulosis, without acute diverticulitis. No small bowel obstruction. No free intraperitoneal air. PELVIS: Appendix: No findings to suggest acute appendicitis. Bladder: Unremarkable. No stones. Reproductive: Hysterectomy. ABDOMEN and PELVIS: Intraperitoneal space: Unremarkable. No free air. No significant fluid collection. Bones/joints: Degenerative changes of the spine. No acute fracture. No dislocation. Soft tissues: Fat-containing ventral abdominal wall hernia. Anasarca. Vasculature: Atherosclerotic changes of the aorta. No abdominal aortic aneurysm. Lymph nodes: Unremarkable. No enlarged lymph nodes. Tubes, lines and devices: Atrophy of the RIGHT kidney with a right- sided nerve ureteral stent. Bilateral renal cysts. IMPRESSION: 1. Partially obstructing stone in the LEFT renal pelvis measures 8 mm. 2. Cholecystectomy clips. 3. Atrophy of the RIGHT kidney with a right-sided nerve ureteral stent. Bilateral renal cysts. 4. Hysterectomy. 5. Diverticulosis, without acute diverticulitis. No small bowel obstruction. No free intraperitoneal air. Electronically signed by: Roly Nelson MD 05/28/23 22:57 PM
[2023-05-28] MEDS: MoRPHine SULFATE 2 MG/ML CARP IV STA (23:22)
[2023-05-28 23:44] LABS: Appearance Urine Cloudy (Clear); Bacteria Urine Automated Negative (Negative); Bilirubin Urine Negative (Negative); Blood Urine 1+ (Negative); Color Urine Yellow; Epithelial Cell Urine Auto 20-30 /lpf (0-5); Glucose Urine UA Negative (Negative); Ketones Urine Negative (Negative); Leukocyte Esterase Urine 3+ (Negative); Nitrite Urine Positive (Negative); Protein Urine Negative (Negative); RBC Urine Automated 0-4 /hpf (0-4); Urobilinogen Urine Negative (Negative); WBC Urine Automated >30 /hpf (0-5); pH Urine 5.5 (4.5-7.5)
[2023-05-29] MEDS: ERTAPENEM SODIUM 10 ML IV STA (00:40)
--- NOTE | 2023-05-29 04:19 | History & Physical Report ---
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 Patient complaining of dry mouth. Some mild headache. Currently no chest pain. States gets short of breath on exertion. Patient is legally blind. Has some mild pain on micturating. Mild abdominal discomfort. Temp spike in the ER. She states she ambulates with a walker at home. Currently blood pressure is okay. Sepsis UTI Partially obstructing left kidney stone Initial lactic acid is 3 and repeat is 2.3 Received IV Invanz Gentle fluids Follow cultures Urology consult Close monitor History of systolic and diastolic CHF EF 25 to 29% on echo in January 2023 Getting fluids normal saline 50 mill per hour Holding diuretics and potassium supplement to restart as soon as possible Close monitor for volume overload History of CAD s/p stent On aspirin, Plavix and statin and metoprolol to give with holding parameters Mild elevation of troponin Mostly demand ischemia We will follow serial enzymes ALONA on CKD stage III Presented with creatinine 1.8 Baseline creatinine around 1 Holding diuretics Getting gentle fluids We will follow repeat labs PAF Tachybradycardia syndrome S/p pacemaker Metoprolol with holding parameters Not on anticoagulation due to GI bleed History of TIA On aspirin and Plavix and statin Obstructive sleep apnea On CPAP nightly History of rheumatoid arthritis Continue Plaquenil and prednisone 5 mg daily if need will place on stress dose steroids. Hypothyroidism On Synthyroid Diabetes Continue Lantus to 15 units daily as patient is currently n.p.o. 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 (not on a nticoagulation secondary to GI bleed), DM2, HLD, Hx of TIA, LAQUITA on cpap, Hx of papillary thyroid cancer s/p thyroidectomy, hypothyroidism, RA and legally blind, high triglycerides, combined systolic and diastolic CHF(ef 25-29%), history of hepatocellular carcinoma, morbid obesity, 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 Patient complaining of dry mouth. Some mild headache. Currently no chest pain. States gets short of breath on exertion. Patient is legally blind. Has some mild pain on micturating. Mild abdominal discomfort. Temp spike in the ER. She states she ambulates with a walker at home. Currently blood pressure is okay. Past medical history. As mentioned above Past surgical history. Appendectomy. Bilateral carpal tunnel surgery. Cataract surgery. Colonoscopy. Cystoscopy. Left and right heart catheterization. S/p pacemaker. Cystoscopy and stent placement. IR biopsy. IR embolization. Resection of right thyroid lobe. Cholecystectomy. S/p TAVR. Total hysterectomy. Social history. . No smoking. No alcohol use. No drug use. Family history. Father had diabetes. Triglycerides. Peripheral vascular disease. CAD. Mother had CABG and multiple MIs. Diabetes brother has diabetes.. Son has arthritis Allergies Allergy/AdvReac Type Severity Reaction Status Date / Time cephalexin Allergy Severe Anaphylaxis Verified 05/29/23 02:41 Cephalosporins Allergy Severe Anaphylaxis Verified 05/29/23 02:41 Sulfa (Sulfonamide Allergy Intermediate Hives Verified 05/29/23 02:41 Antibiotics) sulfamethoxazole Allergy Intermediate Hives Verified 05/29/23 02:41 [From Bactrim] trimethoprim [From Bactrim] Allergy Intermediate Hives Verified 05/29/23 02:41 butorphanol AdvReac Intermediate Rapid heart Verified 05/29/23 02:41 ciprofloxacin AdvReac Intermediate Nausea Verified 05/29/23 02:41 Home Medications Medication Instructions Recorded Confirmed Type aspirin 81 mg chewable tablet 81 mg PO QAM 11/02/18 05/29/23 History (Aspirin Childrens) atorvastatin 40 mg tablet 40 mg PO HS 11/02/18 05/29/23 History erythromycin 5 mg/gram (0.5 %) eye 1 applic OPB QID 11/02/18 05/29/23 History ointment folic acid 1 mg tablet 1 mg PO QAM 11/02/18 05/29/23 History hydroxychloroquine 200 mg tablet 400 mg PO HS 11/02/18 05/29/23 History (Plaquenil) levothyroxine 125 mcg tablet 125 mcg PO DAILYBB 11/02/18 05/29/23 History lorazepam 0.5 mg tablet 0.5 mg PO TID PRN Anxiety 11/02/18 05/29/23 History multivitamin with iron 1 tab PO QAM 11/02/18 05/29/23 History prednisone 5 mg tablet 5 mg PO QAM 11/02/18 05/29/23 History cyanocobalamin (vitamin B-12) 1,500 mcg PO QPM 10/20/19 05/29/23 History 1,000 mcg tablet (Vitamin B-12) hydrocodone 5 mg-acetaminophen 325 1 tab PO Q6H PRN Pain,mild 03/26/21 05/29/23 History mg tablet magnesium oxide 400 mg (241.3 mg 400 mg PO QAM 08/30/21 05/29/23 History magnesium) tablet netarsudil 0.02 % eye drops 1 drp OPL HS 08/30/21 05/29/23 History (Rhopressa) methotrexate sodium 2.5 mg tablet 10 mg PO WK 02/11/22 05/29/23 History clopidogrel 75 mg tablet (Plavix) 75 mg PO QAM 04/08/22 05/29/23 History insulin glargine 100 unit/mL 33 unit subcut QAM 08/19/22 05/29/23 History subcutaneous solution (Lantus U-100 Insulin) acetaminophen 500 mg tablet 500 mg PO HS 11/05/22 05/29/23 History (Tylenol Extra Strength) nystatin 100,000 unit/gram topical 1 applic topical TID PRN SKIN 11/05/22 05/29/23 History powder IRRITATION UNDER BREASTS spironolactone 25 mg tablet 25 mg PO QAM 11/05/22 05/29/23 History latanoprost 0.005 % eye drops 1 drp OPB PM 12/18/22 05/29/23 History metoprolol succinate 25 mg 12.5 mg PO BID 12/18/22 05/29/23 History tablet,extended release 24 hr torsemide 100 mg tablet 100 mg PO QAM 12/18/22 05/29/23 History ferrous sulfate 325 mg (65 mg 325 mg PO QDL 01/26/23 05/29/23 History iron) tablet,delayed release potassium chloride 20 mEq 20 meq PO BID 01/26/23 05/29/23 History tablet,extended release ascorbic acid (vitamin C) 500 mg 500 mg PO DAILY 05/29/23 05/29/23 History tablet (Vitamin C) betaxolol 0.5 % eye drops 1 drp OPL AMHS 05/29/23 05/29/23 History gabapentin 300 mg capsule 300 mg PO AMHS 05/29/23 05/29/23 History netarsudil 0.02 % eye drops 1 drp OPL HS 05/29/23 05/29/23 History (Rhopressa) pantoprazole 40 mg tablet,delayed 40 mg PO DAILY 05/29/23 05/29/23 History release sertraline 25 mg tablet 25 mg PO DAILY 05/29/23 05/29/23 History Past Med/Surg History Medical History CAD (coronary artery disease) s/p PCI with WALTER to mid LAD 03/22/22 (mild luminal irregularities elsewhere) History of blood transfusion 1980s Morbid obesity with BMI of 40.0-44.9, adult On anticoagulant therapy plavix daily History of COVID-19 diagnosed end of 05/2022 via home test--cough, body aches, sore throat, nausea, runny nose--no symptoms now Edema of both legs current issue--has perez wraps around both legs 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 LICA less than 50% stenosis. Aortic stenosis S/p TAVR 12/09/22 Blindness Left eye (since ), right eye sown shut "from the inside"; legally blind Pancreatic lesion 1.1 cm stable small cystic lesion in body of pancreas per 01/21/[address] Ischemic cardiomyopathy EF 25-29% 01/2023 echo Diabetic retinopathy History of atrial fibrillation Single, brief episode (2017) PAF/flutter per cardio records- [id number] score of 3- No AC due to bleeding risk (chronic microscopic hematuria with frequent urological procedures, hemorrhoids, AVMs, thrombocytopenia, liver cancer, etc.) Hypertension Kidney stones hx Liver cancer Stage 1, s/p embolization (injection black poppyseed oil twice) under surveillance by [facility] heme/onc - had radiation seeds placed 10/18/22 Diabetic neuropathy Chronic back pain Chronic kidney disease, stage 3 follows with [facility] nephrology Hernia Current Pancreatitis Mutliple, 15+ episodes (no current issues) History of gastric ulcer Hypothyroidism Diabetes mellitus, type 2 IDDM History of cancer 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), s/p surgical intervention Rheumatoid arthritis on Plaquenil, MTX, prednisone 5mg daily Anemia Iron deficiency Chronic steroid use Glaucoma open angle per [facility] records Transient ischemic attack (TIA) ? TIA vs CVA x2 (20+ years ago), no deficits Migraine Hx years ago Hyperlipidemia Congestive heart failure EF 25-29% on 01/2023 echo Myocardial Infarction Remote silent [place] (10+ years ago) Sleep apnea CPAP History of sinus problem Reason for nebulizer and inhalers prn Surgical History S/P TAVR (transcatheter aortic valve replacement) December 2022 at [facility]. mechanical valve. follows with [facility]. S/P cardiac cath [facility] 03/2022 History of cardiac cath 03/22/22 > 1 stent drug eluting> [place] > see report in records Status post laser lithotripsy of ureteral calculus x3 -> November 2019, December 2019, August 2020 History of ERCP History of cystoscopy --multiple-- Cystoscopy, right stent, right laser lithotripsy (08/11/2020): LMA 4.0 unique, atraumatic, LMA attempt x1 at [facility]. No issues per postop anesthesia progress note. History of liver biopsy X 2 Nausea and vomiting after administration of anesthetic agent History of dilatation and curettage x3 S/P foot surgery, left "stepped on a needle and had to have it removed" History of carpal tunnel release of both wrists History of lumbar discectomy History of biopsy of bladder showed chronic cystitis History of total hysterectomy with bilateral salpingo-oophorectomy (BSO) History of appendectomy History of cholecystectomy History of colonoscopy History of esophagogastroduodenoscopy (EGD) History of tooth extraction all top teeth, most of bottom History of partial thyroidectomy right side and ismis removed d/t papillary cancer History of tarsorrhaphy BILT--right eye closed shut, left eye partly closed History of bilateral cataract extraction History of detached retina repair x4 on right eye; sx to sew right eye shut in 2017 Family History Father Family history of diabetes mellitus Family history of reaction to anesthesia difficulty waking Mother Family history of diabetes mellitus Sister Family history of diabetes mellitus Brother Family history of diabetes mellitus Grandmother (Maternal) Family history of diabetes mellitus Grandmother (Paternal) Family history of diabetes mellitus Son Family history of diabetes mellitus Social History Smoking Status: Never smoker Second Hand Exposure: No; Do You Dip or Chew Tobacco: No; Hx Alcohol Use: No Hx Substance Use: No Preferred Language: Armenian Communication Ability: Effective Communication Ability Comment: blind Communication Tools: Other Visual Impairment: Blindness Hearing Ability: Normal Screen Print Operator Required: Voice Beliefs That Will Affect Care: None marital status: Current Living Situation: Alone current occupational status: disabled Other Information That Helps Us Care for You: No Feels Safe at Home: Yes Safety Concerns: Feels Safe At This Time Diet: diabetic, low carbohydrate and low salt Diet Comment: low fat caffeine: Yes during the past year weight has: remained stable Do you think of yourself as: straight/heterosexual Gender Identity: Female Assistive Devices: CPAP and Other Assistive Devices Comment: blind Review of Systems Review of Systems: All systems reviewed & are unremarkable except as noted in HPI & below Physical Exam Physical Exam: General- Not in acute distress. Head- atraumatic Eyes- Legally blind. ENT- oropharynx dry Neck- supple, no JVD Lungs- clear to auscultation no wheezing or crackles. Heart- regular rhythm; no murmur, no gallop. Abdomen- normal bowel sounds, soft, nontender, no distension. Extremities- b/l lower extremity present with superficial wounds in shins. No erythema seen. Neuro- alert, oriented no facial palsy; no dysarthria; moves extremities. Skin- warm & dry Results & Data Results & Data Vital Signs (Past 12 Hours) Vital Signs Temp Pulse Pulse Resp BP BP Pulse Ox 05/29/23 03:00 83 20 97 05/29/23 01:45 75 05/28/23 23:30 123/62 05/28/23 23:30 80 19 94 05/28/23 23:15 84 26 H 05/28/23 23:00 86 25 H 05/28/23 23:00 115/58 L 05/28/23 22:45 88 24 05/28/23 22:43 90 22 05/28/23 22:43 104/74 05/28/23 22:41 89 26 H 05/28/23 22:15 94 H 26 H 05/28/23 22:05 130/70 05/28/23 22:03 130/70 05/28/23 22:03 96 H 28 H 05/28/23 22:02 97 H 29 H 05/28/23 22:00 97 H 20 05/28/23 21:45 93 H 19 05/28/23 21:38 91 H 05/28/23 21:38 88 18 93 05/28/23 21:27 37.7 C H 87 25 H 100/65 100 O2 Del Method 05/29/23 03:00 Room Air 05/29/23 01:45 05/28/23 23:30 05/28/23 23:30 05/28/23 23:15 05/28/23 23:00 05/28/23 23:00 05/28/23 22:45 05/28/23 22:43 05/28/23 22:43 05/28/23 22:41 05/28/23 22:15 05/28/23 22:05 05/28/23 22:03 05/28/23 22:03 05/28/23 22:02 05/28/23 22:00 05/28/23 21:45 05/28/23 21:38 05/28/23 21:38 05/28/23 21:27 Room Air Diagnostic Findings Laboratory Results WBC 8.23 K/ul (4.8-10.8) 05/28/23 21:54 RBC 4.11 M/uL (4.20-5.40) L 05/28/23 21:54 Hgb 11.8 g/dl (12.0-16.0) L 05/28/23 21:54 POC Hgb 12.2 g/dl (12.0-16.0) 05/28/23 22:00 Hct 37.6 % (37.0-47.0) 05/28/23 21:54 POC Hct 36 % (37-47) L 05/28/23 22:00 MCV 91.5 fL (80.0-100.0) 05/28/23 21:54 MCH 28.7 pg (25.0-34.0) 05/28/23 21:54 MCHC 31.4 g/dL (32.0-36.0) L 05/28/23 21:54 RDW Std Deviation 65.2 fL (36.4-46.3) H 05/28/23 21:54 RDW Coeff of Juani 20.3 % (11.5-14.5) H 05/28/23 21:54 Plt Count 86 K/uL (130-400) L 05/28/23 21:54 MPV 10.4 fL (9.4-12.4) 05/28/23 21:54 Immature Gran % (Auto) 0.5 % 05/28/23 21:54 Neut % (Auto) 98.3 % 05/28/23 21:54 Lymph % (Auto) 0.7 % 05/28/23 21:54 Barton % (Auto) 0.4 % 05/28/23 21:54 Eos % (Auto) 0.0 % 05/28/23 21:54 Baso % (Auto) 0.1 % 05/28/23 21:54 Neut # (Auto) 8.09 K/uL (1.40-6.50) H 05/28/23 21:54 Lymph # (Auto) 0.06 K/uL (1.20-3.40) L 05/28/23 21:54 Barton # (Auto) 0.03 K/uL (0.11-0.59) L 05/28/23 21:54 Eos # (Auto) 0.00 K/uL (0.00-0.50) 05/28/23 21:54 Baso # (Auto) 0.01 K/uL (0.00-0.20) 05/28/23 21:54 Immature Gran # (Auto) 0.04 K/uL (0.01-0.20) 05/28/23 21:54 Tear Drop Cells 1+ 05/28/23 21:54 Ovalocytes 1+ 05/28/23 21:54 Echinocytes 1+ 05/28/23 21:54 POC Sodium 133 mmol/L (135-144) L 05/28/23 22:00 Sodium 133 mmol/L (136-145) L 05/28/23 21:54 POC Potassium 4.3 mmol/L (3.3-5.0) 05/28/23 22:00 Potassium 4.3 mmol/L (3.5-5.1) 05/28/23 21:54 POC Chloride 99 mmol/L (101-112) L 05/28/23 22:00 Chloride 98 mmol/L (98-107) 05/28/23 21:54 Carbon Dioxide 21 mmol/L (21-32) 05/28/23 21:54 POC Total CO2 22 mmol/L (24-31) L 05/28/23 22:00 Anion Gap 14 (3-11) H 05/28/23 21:54 POC Anion Gap 17.0 mmol/L (16-25) 05/28/23 22:00 POC BUN 53 mg/dl (7-18) H 05/28/23 22:00 BUN 61 mg/dl (6-23) H 05/28/23 21:54 Creatinine 1.82 mg/dl (0.6-1.2) H 05/28/23 21:54 POC Creatinine 1.9 mg/dl (0.6-1.3) H 05/28/23 22:00 Est Cr Clr Drug Dosing 32.2 ml/min 05/28/23 21:54 Est GFR ( Amer) 31.4 ml/min 05/28/23 21:54 Est GFR (Non-Af Amer) 27.1 ml/min 05/28/23 21:54 BUN/Creatinine Ratio 33.5 (10-20) H 05/28/23 21:54 Glucose 143 mg/dl (70-99(Fasting)) H 05/28/23 21:54 POC Glucose (other) 147 mg/dl (70-99) H 05/28/23 22:00 Lactate 2.3 mmol/L (0.4-2.0) H* 05/28/23 23:55 Calcium 9.6 mg/dl (8.6-10.3) 05/28/23 21:54 POC Ioniz Calcium Perlita 1.12 mmol/l (1.12-1.32) 05/28/23 22:00 Magnesium 2.0 mg/dl (1.7-2.4) 05/28/23 21:54 Total Bilirubin 2.2 mg/dl (0.2-1.0) H 05/28/23 21:54 Direct Bilirubin 0.9 mg/dl (0-0.2) H 05/28/23 21:54 AST 52 U/L (13-39) H 05/28/23 21:54 ALT 37 U/L (7-52) 05/28/23 21:54 Alkaline Phosphatase 216 U/L (34-104) H 05/28/23 21:54 Troponin I High Sens 62.5 pg/ml (0-14) H* D 05/28/23 23:55 Total Protein 6.5 gm/dl (6.0-8.3) 05/28/23 21:54 Albumin 3.5 gm/dl (3.4-5.0) 05/28/23 21:54 Procalcitonin 0.88 ng/ml (0-0.5) H 05/28/23 21:54 Urine Color Yellow 05/28/23 23:18 Urine Appearance Cloudy (Clear) A 05/28/23 23:18 Urine pH 5.5 (4.5-7.5) 05/28/23 23:18 Ur Specific Colp 1.010 (1.000-1.030) 05/28/23 23:18 Urine Protein Negative (Negative) 05/28/23 23:18 Urine Glucose (UA) Negative (Negative) 05/28/23 23:18 Urine Ketones Negative (Negative) 05/28/23 23:18 Urine Blood 1+ (Negative) H 05/28/23 23:18 Urine Nitrite Positive (Negative) A 05/28/23 23:18 Urine Bilirubin Negative (Negative) 05/28/23 23:18 Urine Urobilinogen Negative (Negative) 05/28/23 23:18 Ur Leukocyte Esterase 3+ (Negative) H 05/28/23 23:18 Urine WBC (Auto) >30 /hpf (0-5) H 05/28/23 23:18 Urine RBC (Auto) 0-4 /hpf (0-4) 05/28/23 23:18 U Hyaline Cast (Auto) 10-30 /lpf (0-5) H 05/28/23 23:18 U Epithel Cells (Auto) 20-30 /lpf (0-5) H 05/28/23 23:18 Urine Bacteria (Auto) Negative (Negative) 05/28/23 23:18 Urine Yeast Budding (None Prsent) A 05/28/23 23:18 Impressions Abdomen/Pelvis CT 05/28/23 22:03 Exam(s): CT ABDOMEN + PELVIS Without Contrast EXAM: CT Abdomen and Pelvis Without Intravenous Contrast CLINICAL HISTORY: Reason for exam: abd pain sepsis. TECHNIQUE: Axial computed tomography images of the abdomen and pelvis without intravenous contrast. CTDI is 34.95 mGy and DLP is 1635.27 mGy-cm. Automated exposure control was utilized for the study. A dose lowering technique was utilized adhering to the principles of ALARA. COMPARISON: CT abdomen and pelvis September 17, 2021. FINDINGS: Lung bases: Unremarkable. No mass. No consolidation. Heart: Cardiomegaly. Pacemaker leads prosthetic aortic valve. ABDOMEN: Liver: Unremarkable. Gallbladder and bile ducts: Cholecystectomy clips. No ductal dilation. Pancreas: Unremarkable. No ductal dilation. Spleen: Unremarkable. No splenomegaly. Adrenals: Unremarkable. No mass. Kidneys and ureters: Partially obstructing stone in the LEFT renal pelvis measures 8 mm. Stomach and bowel: Diverticulosis, without acute diverticulitis. No small bowel obstruction. No free intraperitoneal air. PELVIS: Appendix: No findings to suggest acute appendicitis. Bladder: Unremarkable. No stones. Reproductive: Hysterectomy. ABDOMEN and PELVIS: Intraperitoneal space: Unremarkable. No free air. No significant fluid collection. Bones/joints: Degenerative changes of the spine. No acute fracture. No dislocation. Soft tissues: Fat-containing ventral abdominal wall hernia. Anasarca. Vasculature: Atherosclerotic changes of the aorta. No abdominal aortic aneurysm. Lymph nodes: Unremarkable. No enlarged lymph nodes. Tubes, lines and devices: Atrophy of the RIGHT kidney with a right- sided nerve ureteral stent. Bilateral renal cysts. IMPRESSION: 1. Partially obstructing stone in the LEFT renal pelvis measures 8 mm. 2. Cholecystectomy clips. 3. Atrophy of the RIGHT kidney with a right-sided nerve ureteral stent. Bilateral renal cysts. 4. Hysterectomy. 5. Diverticulosis, without acute diverticulitis. No small bowel obstruction. No free intraperitoneal air. Electronically signed by: Roly Nelson MD 05/28/23 22:57 PM ECG Additional Comments: ECG. Atrial paced rhythm with prolonged AV conduction rate of 90. Left axis deviation. Right bundle branch block. Code Status & VTE Plan VTE Prophylaxis Plan VTE Prophylaxis will be ordered: Yes (1) Sepsis Sepsis acute organ dysfunction status: unspecified Sepsis type: sepsis due to unspecified organism Qualified Code(s): A41.9 - Sepsis, unspecified organism
[2023-05-29] MEDS ORDERED: GLUCOSE 40% GEL 15 GM TUBE PO PRN (04:35)
[2023-05-29] MEDS ORDERED: NITROGLYCERIN SL 0.4 MG/TAB TAB SL PRN (04:35)
[2023-05-29] MEDS ORDERED: HYDROCODONE/ACETAMOPHEN 5/325MG TAB PO PRN (04:35)
[2023-05-29] MEDS ORDERED: GLUCAGON FOR INJ 1 MG VIAL SQ PRN (04:35)
[2023-05-29] MEDS ORDERED: PHARMACY GLYCEMIC MGMT CONSULT PRN (04:35)
[2023-05-29] MEDS ORDERED: CARBOHYDRATES FOR HYPOGLYCEMIA PO PRN (04:35)
[2023-05-29] MEDS ORDERED: LORazepam 0.5 MG TAB PO PRN (04:35)
[2023-05-29] MEDS ORDERED: DEXTROSE 50% 50 ML SYRINGE IV PRN (04:35)
[2023-05-29] MEDS ORDERED: GLUCOSE 10 TAB/TUBE PO PRN (04:35)
[2023-05-29] MEDS: SODIUM CHLORIDE 0.9% 1,000 ML IV SCH (05:42)
[2023-05-29] MEDS: LEVOTHYROXINE SODIUM 125 MCG TABLET PO SCH (06:09)
[2023-05-29] MEDS: INSULIN ASPART PER UNIT CHARGE SC SCH ×2 (06:15→18:08)
[2023-05-29 07:27] LABS: Hematocrit (blood only) 30.3 % (37.0-47.0); Hemoglobin 9.5 g/dl (12.0-16.0); Mean Corpuscular Hemoglobin 28.8 pg (25.0-34.0); Mean Corpuscular Hgb Conc 31.4 g/dL (32.0-36.0); Mean Corpuscular Volume 91.8 fL (80.0-100.0); Nucleated RBC # (auto) 0.02 K/uL (0.00-0.12); Nucleated RBC % (auto) 0.1 %; Platelet Count 62 K/uL (130-400); RDW Coefficient of Variation 20.4 % (11.5-14.5); RDW Standard Deviation 66.2 fL (36.4-46.3); White Blood Count 16.99 K/ul (4.8-10.8)
--- NOTE | 2023-05-29 07:34 | Ultrasound Report ---
BILATERAL LOWER EXTREMITY VENOUS DOPPLER CLINICAL HISTORY: b/l lower ext edema. dvt? COMPARISON STUDY: Bilateral lower extremity venous ultrasound November 14, 2011. TECHNIQUE: Sonography of the deep venous system of the bilateral lower extremities was performed. Co mpression and augmentation were evaluated. FINDINGS: The bilateral common femoral, superficial femoral and popliteal veins were compressible. A ugmentation was normal. Flow was shown within the deep calf vessels although calf vessels were subopt imally assessed due to wounds and dressings. IMPRESSION: No evidence of deep venous thrombus within the bilateral lower extremities although calf vessels suboptimally assessed. ACT 112: Negative or not required by law. Electronically signed by: Aj Reza M.D. 05/29/2023 7:32 AM
[2023-05-29 07:37] LABS: BUN Creatinine Ratio 28.2 (10-20); Calcium 8.3 mg/dl (8.6-10.3); Creatinine Clr Calc Pharmacy 27.1 ml/min; Est GFR (African American) 25.5 ml/min; Magnesium 1.9 mg/dl (1.7-2.4); Potassium 4.3 mmol/L (3.5-5.1)
[2023-05-29 07:59] LABS: Basophils # (auto) 0.01 K/uL (0.00-0.20); Basophils % (auto) 0.1 %; Echinocytes 1+; Immature Granulocytes # (auto) 0.35 K/uL (0.01-0.20); Immature Granulocytes % (auto) 2.1 %; Lymphocytes # (auto) 0.12 K/uL (1.20-3.40); Lymphocytes % (auto) 0.7 %; Monocytes # (auto) 0.51 K/uL (0.11-0.59); Neutrophils % (auto) 94.1 %; Polychromasia 1+
--- NOTE | 2023-05-29 08:21 | XRay Report ---
XR chest 1V portable CLINICAL HISTORY: Sepsis COMPARISON STUDY: Chest radiograph March 31, 2023. FINDINGS: Lung left subclavian pacer is unchanged in position. Aortic valve prosthesis. Moderate card iomegaly is unchanged. There is no evidence for pulmonary edema or pneumonia. There is no pneumothora x or pleural effusion. IMPRESSION: No acute cardiopulmonary findings. No change in appearance of the chest. ACT 112: Negative or not required by law. Electronically signed by: Aj Reza M.D. 05/29/2023 8:19 AM
--- NOTE | 2023-05-29 09:18 | Urology Consultation ---
Date of Consultation May 29, 2023 Assessment & Plan (1) UTI (urinary tract infection): (2) Sepsis: (3) Kidney stones: Plan Her clinical picture is concerning for sepsis, likely of urologic origin. She is currently receiving broad-spectrum antibiotic coverage in the form of ertapenem. Blood and urine cultures are pending I would recommend following up these cultures and adjust antibiotics if needed. Her right kidney appears to be draining well with the stent in good position. We had a long discussion about the risks and benefits of surgical intervention with cystoscopy, left retrograde pyelogram and left ureteral stent placement. We reviewed that when there is an obstructed infection, this will often require drainage to improve, however on her images I do not appreciate any significant pockets of hydronephrosis that would require drainage. Even in spite of this, sometimes there is a role for ureteral stent placement, however she is a high risk surgical candidate to begin with. We discussed the alternative of monitoring closely, providing antibiotics and other supportive care with the potential of stent placement if her clinical condition fails to improve or starts to worsen. After consideration of these options, she would prefer to manage conservatively without stent placement if possible. Since she already feels like she has been improving with what has been done so far, we will hold off stent placement for now. Urology will follow along. Please call with any questions or concerns or if her condition worsens History of Present Illness Reason for Consultation: Sepsis, UTI, possible left kidney stone Attending Physician: Tamra Madrid MD History of Present Illness This is a 73-year-old female with multiple medical comorbidities (severe s/p TAVR, CAD, diabetes, sleep apnea), followed by urology for nephrolithiasis. With her comorbidities, she is a high risk surgical candidate. She presented to the emergency department on 05/28/2023 with nausea, vomiting and diarrhea over the past couple days. Workup was notable for initially normal WBC (8.23) but this increased to 16.9 on 05/29. Creatinine was slightly elevated at 1.82 and then further elevated to 2.16. On initial presentation, lactate was elevated to 3.0, however has gradually decreased to 2.1. Urinalysis was notable for 1+ blood, nitrites, 3+ leukocyte esterase, negative bacteria and budding yeast. A CT scan was performed on 05/28/2023. I independently reviewed these images. O n the right side, the kidney is partially duplicated with the stent to the upper pole. I do not appreciate any obstructions or hydronephrosis on the right side and the stent appears to be in good position. There is some perinephric stranding on the left side. The left kidney does not appear to be duplicated. There is some hyperdense material in the collecting system. I measure the Hounsfield units of this as maximum 250 to 300 units, which would be fairly soft for stone. I also do not appreciate any markedly obstructed calyces that would be a good candidate for drainage. Urology was consulted for concern of nephrolithiasis in the setting of infection. At the bedside, she reports that she is overall feeling better since arriving and starting antibiotics and resuscitation. She has not been having any significant pain over the left flank. She reports blood pressures have been low at home but are better since getting to the hospital. Allergies Allergy/AdvReac Type Severity Reaction Status Date / Time cephalexin Allergy Severe Anaphylaxis Verified 05/29/23 02:41 Cephalosporins Allergy Severe Anaphylaxis Verified 05/29/23 02:41 Sulfa (Sulfonamide Allergy Intermediate Hives Verified 05/29/23 02:41 Antibiotics) sulfamethoxazole Allergy Intermediate Hives Verified 05/29/23 02:41 [From Bactrim] trimethoprim [From Bactrim] Allergy Intermediate Hives Verified 05/29/23 02:41 butorphanol AdvReac Intermediate Rapid heart Verified 05/29/23 02:41 ciprofloxacin AdvReac Intermediate Nausea Verified 05/29/23 02:41 Home Medications Medication Instructions Recorded Confirmed Type aspirin 81 mg chewable tablet 81 mg PO QAM 11/02/18 05/29/23 History (Aspirin Childrens) atorvastatin 40 mg tablet 40 mg PO HS 11/02/18 05/29/23 History erythromycin 5 mg/gram (0.5 %) eye 1 applic OPB QID 11/02/18 05/29/23 History ointment folic acid 1 mg tablet 1 mg PO QAM 11/02/18 05/29/23 History hydroxychloroquine 200 mg tablet 400 mg PO HS 11/02/18 05/29/23 History (Plaquenil) levothyroxine 125 mcg tablet 125 mcg PO DAILYBB 11/02/18 05/29/23 History lorazepam 0.5 mg tablet 0.5 mg PO TID PRN Anxiety 11/02/18 05/29/23 History multivitamin with iron 1 tab PO QAM 11/02/18 05/29/23 History prednisone 5 mg tablet 5 mg PO QAM 11/02/18 05/29/23 History cyanocobalamin (vitamin B-12) 1,500 mcg PO QPM 10/20/19 05/29/23 History 1,000 mcg tablet (Vitamin B-12) hydrocodone 5 mg-acetaminophen 325 1 tab PO Q6H PRN Pain,mild 03/26/21 05/29/23 History mg tablet magnesium oxide 400 mg (241.3 mg 400 mg PO QAM 08/30/21 05/29/23 History magnesium) tablet netarsudil 0.02 % eye drops 1 drp OPL HS 08/30/21 05/29/23 History (Rhopressa) methotrexate sodium 2.5 mg tablet 10 mg PO WK 02/11/22 05/29/23 History clopidogrel 75 mg tablet (Plavix) 75 mg PO QAM 04/08/22 05/29/23 History insulin glargine 100 unit/mL 33 unit subcut QA 08/19/22 05/29/23 History subcutaneous solution (Lantus U-100 Insulin) acetaminophen 500 mg tablet 500 mg PO HS 11/05/22 05/29/23 History (Tylenol Extra Strength) nystatin 100,000 unit/gram topical 1 applic topical TID PRN SKIN 11/05/22 05/29/23 History powder IRRITATION UNDER BREASTS spironolactone 25 mg tablet 25 mg PO QAM 11/05/22 05/29/23 History latanoprost 0.005 % eye drops 1 drp OPB PM 12/18/22 05/29/23 History metoprolol succinate 25 mg 12.5 mg PO BID 12/18/22 05/29/23 History tablet,extended release 24 hr torsemide 100 mg tablet 100 mg PO QAM 12/18/22 05/29/23 History ferrous sulfate 325 mg (65 mg 325 mg PO QDL 01/26/23 05/29/23 History iron) tablet,delayed release potassium chloride 20 mEq 20 meq PO BID 01/26/23 05/29/23 History tablet,extended release ascorbic acid (vitamin C) 500 mg 500 mg PO DAILY 05/29/23 05/29/23 History tablet (Vitamin C) betaxolol 0.5 % eye drops 1 drp OPL [facility] 05/29/23 05/29/23 History gabapentin 300 mg capsule 300 mg PO [facility] 05/29/23 05/29/23 History netarsudil 0.02 % eye drops 1 drp OPL 05/29/23 05/29/23 History (Rhopressa) pantoprazole 40 mg tablet,delayed 40 mg PO DAILY 05/29/23 05/29/23 History release sertraline 25 mg tablet 25 mg PO DAILY 05/29/23 05/29/23 History Patient History Medical History (Updated 05/29/23 @ 09:25 by Alcon Riggs MD) CAD (coronary artery disease) s/p PCI with WALTER to mid LAD 03/22/22 (mild luminal irregularities elsewhere) History of blood transfusion 1980s Morbid obesity with BMI of 40.0-44.9, adult On anticoagulant therapy plavix daily History of COVID-19 diagnosed end of 05/2022 via home test--cough, body aches, sore throat, nausea, runny nose--no symptoms now Edema of both legs current issue--has perez wraps around both legs 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 LICA less than 50% stenosis. Aortic stenosis S/p TAVR 12/09/22 Blindness Left eye (since ), right eye sown shut "from the inside"; legally blind Pancreatic lesion 1.1 cm stable small cystic lesion in body of pancreas per 01/21/[address] Ischemic cardiomyopathy EF 25-29% 01/2023 echo Diabetic retinopathy History of atrial fibrillation Single, brief episode (2018) PAF/flutter per cardio records- [id number] score of 3- No AC due to bleeding risk (chronic microscopic hematuria with frequent urological procedures, hemorrhoids, AVMs, thrombocytopenia, liver cancer, etc.) Hypertension Kidney stones hx Liver cancer Stage 1, s/p embolization (injection black poppyseed oil twice) under surveillance by [facility] heme/onc - had radiation seeds placed 10/18/22 Diabetic neuropathy Chronic back pain Chronic kidney disease, stage 3 follows with [facility] nephrology Hernia Current Pancreatitis Mutliple, 15+ episodes (no current issues) History of gastric ulcer Hypothyroidism Diabetes mellitus, type 2 IDDM History of cancer 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 TIA vs CVA x2 (20+ years ago), no deficits Migraine Hx years ago Hyperlipidemia Congestive heart failure EF 25-29% on 01/2023 echo Myocardial Infarction Remote silent [place] (10+ years ago) Sleep apnea CPAP History of sinus problem Reason for nebulizer and inhalers prn Surgical History S/P TAVR (transcatheter aortic valve replacement) December 2022 at [facility]. mechanical valve. follows with [facility]. S/P cardiac cath [facility] 03/2022 History of cardiac cath 03/22/22 > 1 stent drug eluting> [place] > see report in records Status post laser lithotripsy of ureteral calculus x3 -> November 2019, December 2019, August 2020 History of ERCP History of cystoscopy --multiple-- Cystoscopy, right stent, right laser lithotripsy (08/11/2020): LMA 4.0 unique, atraumatic, LMA attempt x1 at [facility]. No issues per postop anesthesia progress note. History of liver biopsy X 2 Nausea and vomiting after administration of anesthetic agent History of dilatation and curettage x3 S/P foot surgery, left "stepped on a needle and had to have it removed" History of carpal tunnel release of both wrists History of lumbar discectomy History of biopsy of bladder showed chronic cystitis History of total hysterectomy with bilateral salpingo-oophorectomy (BSO) History of appendectomy History of cholecystectomy History of colonoscopy History of esophagogastroduodenoscopy (EGD) History of tooth extraction all top teeth, most of bottom History of partial thyroidectomy right side and ismis removed d/t papillary cancer History of tarsorrhaphy BILT--right eye closed shut, left eye partly closed History of bilateral cataract extraction History of detached retina repair x4 on right eye; sx to sew right eye shut in 2017 Family History Father Family history of diabetes mellitus Family history of reaction to anesthesia difficulty waking Mother Family history of diabetes mellitus Sister Family history of diabetes mellitus Brother Family history of diabetes mellitus Grandmother (Maternal) Family history of diabetes mellitus Grandmother (Paternal) Family history of diabetes mellitus Son Family history of diabetes mellitus Social History Smoking Status: Never smoker Second Hand Exposure: No; Do You Dip or Chew Tobacco: No; Hx Alcohol Use: No Hx Substance Use: No Preferred Language: Arabic Communication Ability: Effective Communication Ability Comment: blind Communication Tools: Other Visual Impairment: Blindness Hearing Ability: Normal Data Analysis Assistant Required: Voice Beliefs That Will Affect Care: None marital status: Current Living Situation: Alone current occupational status: disabled Other Information That Helps Us Care for You: No Feels Safe at Home: Yes Safety Concerns: Feels Safe At This Time Diet: diabetic, low carbohydrate and low salt Diet Comment: low fat caffeine: Yes during the past year weight has: remained stable Do you think of yourself as: straight/heterosexual Gender Identity: Female Assistive Devices: CPAP and Other Assistive Devices Comment: blind Review of Systems Review of Systems: 12 point review of systems negative exce pt for otherwise indicated. Physical Exam Physical Exam: Resting in bed, NAD Constitutional: well developed and well nourished; no acute distress Eyes: Eyes closed with some bulging under the eyelids Respiratory: normal respiratory effort; no respiratory distress, does not use accessory muscles and no cough Cardiovascular: Regular heart rate on monitor Gastrointestinal (Abdomen): Inspection/Auscultation: abdomen normal to inspection; abdomen not distended Musculoskeletal: Extremities: extremities normal to inspection Skin: normal turgor; no rashes and no lesions Neurologic: moves all extremities and awake Psychiatric: Orientation: alert and oriented x 3 Results & Data Vital Signs (Past 12 Hours) Vital Signs Temp Pulse Pulse Resp BP BP Pulse Ox 05/29/23 07:41 67 15 120/56 L 94 05/29/23 07:13 68 05/29/23 05:22 86 05/29/23 05:00 05/29/23 05:00 83 20 95/36 L 97 05/29/23 03:00 83 20 97 05/29/23 01:45 75 05/28/23 23:30 123/62 05/28/23 23:30 80 19 94 05/28/23 23:15 84 26 H 05/28/23 23:00 86 25 H 05/28/23 23:00 115/58 L 05/28/23 22:45 88 24 05/28/23 22:43 90 22 05/28/23 22:43 104/74 05/28/23 22:41 89 26 H 05/28/23 22:15 94 H 26 H 05/28/23 22:05 130/70 05/28/23 22:03 130/70 05/28/23 22:03 96 H 28 H 05/28/23 22:02 97 H 29 H 05/28/23 22:00 97 H 20 05/28/23 21:45 93 H 19 05/28/23 21:38 91 H 05/28/23 21:38 88 18 93 05/28/23 21:27 37.7 C H 87 25 H 100/65 100 Pulse Ox O2 Del Method O2 Del Method 05/29/23 07:41 Room Air 05/29/23 07:13 05/29/23 05:22 05/29/23 05:00 98 Room Air 05/29/23 05:00 Room Air 05/29/23 03:00 Room Air 05/29/23 01:45 05/28/23 23:30 05/28/23 23:30 05/28/23 23:15 05/28/23 23:00 05/28/23 23:00 05/28/23 22:45 05/28/23 22:43 05/28/23 22:43 05/28/23 22:41 05/28/23 22:15 05/28/23 22:05 05/28/23 22:03 05/28/23 22:03 05/28/23 22:02 05/28/23 22:00 05/28/23 21:45 05/28/23 21:38 05/28/23 21:38 05/28/23 21:27 Room Air PG Care Time/CCT Total # of Minutes Spent Total Time Spent with Patient: Total time spent is greater than 50% in coordination of care (as documented) at patient's floor/unit and/or counseling patient: Coding Level of Care Code 84687 INT INP/OBS CARE 2/55MIN Diagnoses UTI (urinary tract infection) N10 Urinary tract infection type: acute pyelonephritis Sepsis A41.9 Sepsis acute organ dysfunction status: unspecified Sepsis type: sepsis due to unspecified organism Kidney stones N20.0 (1) UTI (urinary tract infection) Urinary tract infection type: acute pyelonephritis Qualified Code(s): N10 - Acute pyelonephritis (2) Sepsis Sepsis acute organ dysfunction status: unspecified Sepsis type: sepsis due to unspecified organism Qualified Code(s): A41.9 - Sepsis, unspecified organism
[2023-05-29] MEDS: MULTIVITAMIN CHEWABLE TAB PO SCH (09:19)
[2023-05-29] MEDS: predniSONE 5 MG TAB PO SCH (09:19)
[2023-05-29] MEDS: SERTRALINE HCL 50 MG TABLET PO SCH (09:19)
[2023-05-29] MEDS: PANTOprazole 40 MG TAB PO SCH (09:19)
[2023-05-29] MEDS: ASCORBIC ACID 500 MG TAB PO SCH (09:20)
[2023-05-29] MEDS: METOPROLOL SUCC 25MG EXT REL TAB PO SCH (09:20)
[2023-05-29] MEDS: GABAPENTIN 300 MG CAP PO SCH (09:20)
[2023-05-29] MEDS: MAGNESIUM OXIDE 400 MG TAB PO SCH (09:20)
[2023-05-29] MEDS: CLOPIDOGREL BISULFATE 75 MG TAB PO SCH (09:20)
[2023-05-29] MEDS: FOLIC ACID 1 MG TAB PO SCH (09:20)
[2023-05-29] MEDS: ASPIRIN 81 MG CHEW PO SCH (09:20)
[2023-05-29] MEDS: BETAXOLOL HCL 0.5% OPL SCH (09:21)
[2023-05-29] MEDS: LANTUS PER UNIT CHARGE SQ SCH (09:22)
[2023-05-29] MEDS: ERYTHROMYCIN OP OINT 5 MG/GM 3.5 GM TUBE OPB SCH (10:58)
--- NOTE | 2023-05-29 12:04 | Nephrology Consultation ---
Date of Consultation May 29, 2023 Assessment & Plan (1) ALONA (acute kidney injury): Patient with acute kidney injury of multifactorial etiology including ATN from sepsis and obstructive uropathy. Baseline creatinine is 1.2. Creatinine is uptrending to 2.16. Patient is being treated for urosepsis on ertapenem. CT abdomen showed atrophy of the right kidney with a right ureteral stent. There is also partial obstructive left renal stone measuring 8 mm. Patient is making urine. -Agree with holding her torsemide and Aldactone for today. -Stop IV fluids as patient is high risk for CHF. -Reassess volume status in the morning and consider resuming her diuretics tomorrow -Daily BMP -Avoid contrast (2) Kidney stones: Patient with obstructive kidney stone on the left side. Ideally patient would benefit from more ureteral stent placement but was deemed a high risk surgical candidate by urology. Will continue conservative management with antibiotics and monitor. If renal function continues to worsen, cystoscopy and stent placement will be warranted. 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 CT abdomen also showed atrophy of the right kidney with right ureteral stent in place and partial obstructive kidney stone on the left side measuring 8 mm. Her creatinine is uptrending to 2.16. Patient was evaluated by urology and the opinion that she is currently high risk surgical candidate for cystoscopy and stent placement. They recommended continuing antibiotics and other conservative management unless clinical status changes. She reports feeling better today denies any shortness of breath or pain. Legs are chronically swollen. She is getting IV fluids today. Her torsemide and Aldactone are on hold. Allergies Allergy/AdvReac Type Severity Reaction Status Date / Time cephalexin Allergy Severe Anaphylaxis Verified 05/29/23 02:41 Cephalosporins Allergy Severe Anaphylaxis Verified 05/29/23 02:41 Sulfa (Sulfonamide Allergy Intermediate Hives Verified 05/29/23 02:41 Antibiotics) sulfamethoxazole Allergy Intermediate Hives Verified 05/29/23 02:41 [From Bactrim] trimethoprim [From Bactrim] Allergy Intermediate Hives Verified 05/29/23 02:41 butorphanol AdvReac Intermediate Rapid heart Verified 05/29/23 02:41 ciprofloxacin AdvReac Intermediate Nausea Verified 05/29/23 02:41 Home Medications Medication Instructions Recorded Confirmed Type aspirin 81 mg chewable tablet 81 mg PO QAM 11/02/18 05/29/23 History (Aspirin Childrens) atorvastatin 40 mg tablet 40 mg PO HS 11/02/18 05/29/23 History erythromycin 5 mg/gram (0.5 %) eye 1 applic OPB QID 11/02/18 05/29/23 History ointment folic acid 1 mg tablet 1 mg PO QAM 11/02/18 05/29/23 History hydroxychloroquine 200 mg tablet 400 mg PO HS 11/02/18 05/29/23 History (Plaquenil) levothyroxine 125 mcg tablet 125 mcg PO DAILYBB 11/02/18 05/29/23 History lorazepam 0.5 mg tablet 0.5 mg PO TID PRN Anxiety 11/02/18 05/29/23 History multivitamin with iron 1 tab PO QAM 11/02/18 05/29/23 History prednisone 5 mg tablet 5 mg PO QAM 11/02/18 05/29/23 History cyanocobalamin (vitamin B-12) 1,500 mcg PO QPM 10/20/19 05/29/23 History 1,000 mcg tablet (Vitamin B-12) hydrocodone 5 mg-acetaminophen 325 1 tab PO Q6H PRN Pain,mild 03/26/21 05/29/23 History mg tablet magnesium oxide 400 mg (241.3 mg 400 mg PO QAM 08/30/21 05/29/23 History magnesium) tablet netarsudil 0.02 % eye drops 1 drp OPL HS 08/30/21 05/29/23 History (Rhopressa) methotrexate sodium 2.5 mg tablet 10 mg PO WK 02/11/22 05/29/23 History clopidogrel 75 mg tablet (Plavix) 75 mg PO QAM 04/08/22 05/29/23 History insulin glargine 100 unit/mL 33 unit subcut QAM 08/19/22 05/29/23 History subcutaneous solution (Lantus U-100 Insulin) acetaminophen 500 mg tablet 500 mg PO HS 11/05/22 05/29/23 History (Tylenol Extra Strength) nystatin 100,000 unit/gram topical 1 applic topical TID PRN SKIN 11/05/22 05/29/23 History powder IRRITATION UNDER BREASTS spironolactone 25 mg tablet 25 mg PO QAM 11/05/22 05/29/23 History latanoprost 0.005 % eye drops 1 drp OPB PM 12/18/22 05/29/23 History metoprolol succinate 25 mg 12.5 mg PO BID 12/18/22 05/29/23 History tablet,extended release 24 hr torsemide 100 mg tablet 100 mg PO QAM 12/18/22 05/29/23 History ferrous sulfate 325 mg (65 mg 325 mg PO QDL 01/26/23 05/29/23 History iron) tablet,delayed release potassium chloride 20 mEq 20 meq PO BID 01/26/23 05/29/23 History tablet,extended release ascorbic acid (vitamin C) 500 mg 500 mg PO DAILY 05/29/23 05/29/23 History tablet (Vitamin C) betaxolol 0.5 % eye drops 1 drp OPL [facility] 05/29/23 05/29/23 History gabapentin 300 mg capsule 300 mg PO [facility] 05/29/23 05/29/23 History netarsudil 0.02 % eye drops 1 drp OPL HS 05/29/23 05/29/23 History (Rhopressa) pantoprazole 40 mg tablet,delayed 40 mg PO DAILY 05/29/23 05/29/23 History release sertraline 25 mg tablet 25 mg PO DAILY 05/29/23 05/29/23 History Patient History Medical History (Updated 05/29/23 @ 09:25 by Alcon Riggs MD) CAD (coronary artery disease) s/p PCI with WALTER to mid LAD 03/22/22 (mild luminal irregularities elsewhere) History of blood transfusion 1980s Morbid obesity with BMI of 40.0-44.9, adult On anticoagulant therapy plavix daily History of COVID-19 diagnosed end of 05/2022 via home test--cough, body aches, sore throat, nausea, runny nose--no symptoms now Edema of both legs current issue--has perez wraps around both legs 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 LICA less than 50% stenosis. Aortic stenosis S/p TAVR 12/09/22 Blindness Left eye (since ), right eye sown shut "from the inside"; legally blind Pancreatic lesion 1.1 cm stable small cystic lesion in body of pancreas per 01/21/[address] Ischemic cardiomyopathy EF 25-29% 01/2023 echo Diabetic retinopathy History of atrial fibrillation Single, brief episode (2017) PAF/flutter per cardio records- [id number] score of 3- No AC due to bleeding risk (chronic microscopic hematuria with frequent urological pro cedures, hemorrhoids, AVMs, thrombocytopenia, liver cancer, etc.) Hypertension Kidney stones hx Liver cancer Stage 1, s/p embolization (injection black poppyseed oil twice) under surveillance by [facility] heme/onc - had radiation seeds placed 10/18/22 Diabetic neuropathy Chronic back pain Chronic kidney disease, stage 3 follows with [facility] nephrology Hernia Current Pancreatitis Mutliple, 15+ episodes (no current issues) History of gastric ulcer Hypothyroidism Diabetes mellitus, type 2 IDDM History of cancer 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), s/p surgical intervention Rheumatoid arthritis on Plaquenil, MTX, prednisone 5mg daily Anemia Iron deficiency Chronic steroid use Glaucoma open angle per [facility] records Transient ischemic attack (TIA) ? TIA vs CVA x2 (20+ years ago), no deficits Migraine Hx years ago Hyperlipidemia Congestive heart failure EF 25-29% on 01/2023 echo Myocardial Infarction Remote silent [place] (10+ years ago) Sleep apnea CPAP History of sinus problem Reason for nebulizer and inhalers prn Surgical History S/P TAVR (transcatheter aortic valve replacement) December 2022 at [facility]. mechanical valve. follows with [facility]. S/P cardiac cath [facility] 03/2022 History of cardiac cath 03/22/22 > 1 stent drug eluting> [place] > see report in records Status post laser lithotripsy of ureteral calculus x3 -> November 2019, December 2019, August 2020 History of ERCP History of cystoscopy --multiple-- Cystoscopy, right stent, right laser lithotripsy (08/11/2020): LMA 4.0 unique, atraumatic, LMA attempt x1 at [facility]. No issues per postop anesthesia progress note. History of liver biopsy X 2 Nausea and vomiting after administration of anesthetic agent History of dilatation and curettage x3 S/P foot surgery, left "stepped on a needle and had to have it removed" History of carpal tunnel release of both wrists History of lumbar discectomy History of biopsy of bladder showed chronic cystitis History of total hysterectomy with bilateral salpingo-oophorectomy (BSO) History of appendectomy History of cholecystectomy History of colonoscopy History of esophagogastroduodenoscopy (EGD) History of tooth extraction all top teeth, most of bottom History of partial thyroidectomy right side and ismis removed d/t papillary cancer History of tarsorrhaphy BILT--right eye closed shut, left eye partly closed History of bilateral cataract extraction History of detached retina repair x4 on right eye; sx to sew right eye shut in 2016 Family History Father Family history of diabetes mellitus Family history of reaction to anesthesia difficulty waking Mother Family history of diabetes mellitus Sister Family history of diabetes mellitus Brother Family history of diabetes mellitus Grandmother (Maternal) Family history of diabetes mellitus Grandmother (Paternal) Family history of diabetes mellitus Son Family history of diabetes mellitus Social History Smoking Status: Never smoker Second Hand Exposure: No; Do You Dip or Chew Tobacco: No; Hx Alcohol Use: No Hx Substance Use: No Preferred Language: Japanese Communication Ability: Effective Communication Ability Comment: blind Communication Tools: Other Visual Impairment: Blindness Hearing Ability: Normal 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: Voice Beliefs That Will Affect Care: None marital status: Current Living Situation: Alone current occupational status: disabled Other Information That Helps Us Care for You: No Feels Safe at Home: Yes Safety Concerns: Feels Safe At This Time Diet: diabetic, low carbohydrate and low salt Diet Comment: low fat caffeine: Yes during the past year weight has: remained stable Do you think of yourself as: straight/heterosexual Gender Identity: Female Assistive Devices: CPAP and Other Assistive Devices Comment: blind Review of Systems Review of Systems: All other systems were reviewed and negative except as noted in HPI Physical Exam Physical Exam: General exam: Appears comfortable, no acute distress HEENT: Pupils are equal and reactive to light Neck: No JVD, neck is supple trachea is midline Respiratory system: Clear breath sounds bilaterally. Gastrointestinal: Abdomen is soft, non distended, non tender, bowel sounds are present CVS: Regular rate and rhythm. No murmurs, rubs or gallops Musculoskeletal: No joint or muscle tenderness Extremities: Non tender, 1+ edema, peripheral pulses are present Neuro: Oriented, no tremors, no focal neurological deficits Skin: No rashes Results & Data Vital Signs (Past 12 Hours) Vital Signs Pulse Pulse Resp BP Pulse Ox Pulse Ox O2 Del Method 05/29/23 07:41 67 15 120/56 L 94 Room Air 05/29/23 07:13 68 05/29/23 05:22 86 05/29/23 05:00 98 05/29/23 05:00 83 20 95/36 L 97 Room Air 05/29/23 03:00 83 20 97 Room Air 05/29/23 01:45 75 O2 Del Method 05/29/23 07:41 05/29/23 07:13 05/29/23 05:22 05/29/23 05:00 Room Air 05/29/23 05:00 05/29/23 03:00 05/29/23 01:45
[2023-05-29] MEDS: FERROUS SULFATE 325 MG TAB PO SCH (13:18)
--- NOTE | 2023-05-29 13:41 | Communication Note ---
Date of Service: May 29, 2023 Patient seen and examined Reported upper abd pain and back pain No nausea at this time Labs notabel for increased WBC 16.9, Hb 9.5, Plt 62, Cr 2.16 CT abd noted partially obstructing stone in the left renal pelvis measuring 8 mm, atrophy of right kidney with the right-sided ureteral stent, bilateral renal cysts. Discussed with nephrology regarding worsening renal function. Recommend stopping IV fluids and holding off diuretic for today. Urologist evaluation noted. Continue IV antibiotics Will keep n.p.o. past midnight in case urology decides to do procedure tomorrow. Other plans as detailed in H&P this morning
[2023-05-29] MEDS: ONDANSETRON INJ 2 MG/ML 2 ML VIAL IV PRN (14:15)
[2023-05-29] MEDS: MoRPHine SULFATE 2 MG/ML CARP IV PRN (14:16)
[2023-05-29] MEDS ORDERED: NETARSUDIL 0.02% OPL SCH (21:00)
[2023-05-29] MEDS: HYDROXYCHLOROQUINE SULFATE 200 MG TAB PO SCH (21:25)
[2023-05-29] MEDS: CYANOCOBALAMIN (B-12) 500 MCG TABLET PO SCH (21:25)
[2023-05-29] MEDS: ACETAMINOPHEN 500 MG TAB PO SCH (21:26)
[2023-05-29] MEDS: ATORVASTATIN 40 MG TAB PO SCH (21:26)
[2023-05-29] MEDS: ERTAPENEM SODIUM 1,000 MG in SYRINGE 0 ML IV SCH (22:35)
[2023-05-29] MEDS: LATANOPROST 0.005% OP SOLN 2.5 ML BTL OPB SCH (22:35)
[2023-05-29] MEDS: LANTUS PER UNIT CHARGE SQ ONE (22:36)
[2023-05-30 04:16] LABS: Hematocrit (blood only) 30.5 % (37.0-47.0); Hemoglobin 9.8 g/dl (12.0-16.0); Mean Corpuscular Hemoglobin 28.8 pg (25.0-34.0); Mean Corpuscular Hgb Conc 32.1 g/dL (32.0-36.0); Mean Corpuscular Volume 89.7 fL (80.0-100.0); Mean Platelet Volume 12.3 fL (9.4-12.4); Nucleated RBC # (auto) 0.03 K/uL (0.00-0.12); Nucleated RBC % (auto) 0.2 %; Platelet Count 70 K/uL (130-400); RDW Coefficient of Variation 20.2 % (11.5-14.5); RDW Standard Deviation 64.7 fL (36.4-46.3); White Blood Count 16.14 K/ul (4.8-10.8)
[2023-05-30 04:31] LABS: Albumin Globulin Ratio 1.1 (0.9-2); BUN Creatinine Ratio 27.1 (10-20); Bilirubin,Total 1.3 mg/dl (0.2-1.0); Calcium 8.4 mg/dl (8.6-10.3); Creatinine Clr Calc Pharmacy 20.3 ml/min; Est GFR (Non-African American) 15.5 ml/min; Globulin 2.7 gm/dl (2.5-4.0); Magnesium 2.2 mg/dl (1.7-2.4); Phosphorus 5.4 mg/dl (2.5-4.9); Total Protein 5.7 gm/dl (6.0-8.3)
--- NOTE | 2023-05-30 06:32 | Electrocardiogram Report ---
Test Reason : chest pain Blood Pressure : / mmHG Vent. Rate : 090 BPM Atrial Rate : 090 BPM P-R Int : 354 ms QRS Dur : 132 ms QT Int : 384 ms P-R-T Axes : 000 -65 112 degrees QTc Int : 469 ms Atrial-paced rhythm with prolonged AV conduction Left axis deviation Right bundle branch block T wave abnormality, consider lateral ischemia Abnormal ECG When compared with ECG of 31-MAR-2023 09:37, No significant change was found Confirmed by Sarath Morales ([id number]) on 05/30/2023 6:31:56 AM Referred By: REFERRED SELF Confirmed By:Sarath Morales
[2023-05-30 08:17] LABS: Estimated Average Glucose 163 mg/dl; Hemoglobin A1C 7.3 % (4.5-5.6)
[2023-05-30] MEDS: LANTUS PER UNIT CHARGE SQ SCH (08:49)
[2023-05-30 09:06] LABS: A calco-baum cmplx NotReported Not Detected (NotDetected); Bact fragilis Not Reported Not Detected (NotDetected); Blood Culture Id Panel PCR Panel Negative (NotDetected); C auris Not Reported Not Detected (NotDetected); Calbicans Not Reported Not Detected (NotDetected); Candida glabrata Not Reported Not Detected (NotDetected); Candida krusei Not Reported Not Detected (NotDetected); Cneoformans/gatti Not Reported Not Detected (NotDetected); Cparapsilosis Not Reported Not Detected (NotDetected); E cloacae compx Not Reported Not Detected (NotDetected); Efaecalis Not Reported Not Detected (NotDetected); Efaecium Not Reported Not Detected (NotDetected); Enterobacterales Not Reported Not Detected (NotDetected); Escherichia coli Not Reported Not Detected (NotDetected); H influenzae Not Reported Not Detected (NotDetected); K aerogenes Not Reported Not Detected (NotDetected); Koxytoca Not Reported Not Detected (NotDetected); Kpneumoniae grp Not Reported Not Detected (NotDetected); Lmonocyt Not Reported Not Detected (NotDetected); N meningitidis Not Reported Not Detected (NotDetected); P aeruginosa Not Reported Not Detected (NotDetected); Proteus spp Not Reported Not Detected (NotDetected); Salmonella spp Not Reported Not Detected (NotDetected); Smarcescens Not Reported Not Detected (NotDetected); Staph lugdunensis Not Reported Not Detected (NotDetected); Staph spp. Not Reported Not Detected (NotDetected); Staphaureus Not Reported Not Detected (NotDetected); Staphepi Not Reported Not Detected (NotDetected); Stenmaltophilia Not Reported Not Detected (NotDetected); Strep agal(GrpB) Not Reported Not Detected (NotDetected); Strep pneum Not Reported Not Detected (NotDetected); Strep pyog (GrpA) Not Reported Not Detected (NotDetected); Strep spp Not Reported Not Detected (NotDetected)
--- NOTE | 2023-05-30 10:43 | Urology Progress Note ---
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 CT abd noted partially obstructing stone in the left renal pelvis measuring 8 mm, atrophy of right kidney with the right-sided ureteral stent, bilateral renal cysts. Afebrile and hemodynamically stable. Labs reviewed Leukocytosis 16.99-16.14 and creatinine 2.16-2.88 today. Urine culture with more than 3 types of organisms, all high counts Blood culture 05/28 prelim gram positive cocci clusters, repeat pending External catheter in place. Red catheter to be placed this morning by nursing staff. Continue to monitor. Given her clinical picture is concerning for sepsis/UTI and worsening ALONA, and she is past due for right ureteral stent exchange will plan to proceed to OR today for cystoscopy, bilateral retrograde pyelogram, possible ureteral stent insertion/exchange. Risks and benefits to be reviewed with patient by Dr. Johansen. Covered with Ertapenem. Keep NPO. Continue supportive care and antibiotic therapy. Urology will follow. Plan of care reviewed with Dr. Johansen, on-call urologist. Attending note: Patient independently assessed, examined, interviewed, and evaluated. Agree with note as above. Patient's vitals and labs were all reviewed. Pertinent values in the HPI and plan section. Imaging was reviewed interpreted by myself. Agree with read. Vitals were reviewed. Discussed findings extensively with patient and family. Reviewed with nurse practitioner as well as consulting physicians/team. Patient's complicated medical and surgical history was reviewed and summarized above. Patient's surgical, medical, social, and family history were all reviewed with pertinent values as above. Discussed patient's current diagnosis as well as concerns and issues. Reviewed different options moving forward. Discussed potential risks and benefits as well as possible options and concerns. Reviewed potential surgical options and interventions. Discussed potential issues and concerns related to intervention. Risk and benefits were discussed extensively with patient and any available family. Discussed potential risks related to anesthesia. Discussed risks of bleeding infection and injury. Patient's imaging was reviewed. The vitals are currently stable. Is undergoing broad-spectrum antibiotics and supportive care. Imaging was reviewed interpreted by myself. Findings include stent in good position in the kidney on the right. Hydronephrosis on the left with possible stone in the renal pelvis. All labs were reviewed pertinent values in the HPI or plan section. White count is 16.14. Creatinine is 2.88. Hemoglobin was 9.8. Patient's vitals were all reviewed. Patient's complicated medical and surgical history was reviewed and summarized as above. Risks and benefits discussed at length for procedure. These include bleeding, infection, injury to surrounding tissues or organs, and risks associated with anesthesia. Patient states understanding and agrees to proceed. Will sign consent and schedule. Plan for cystoscopy with bilateral retrograde pyelogram and stent exchange/placement. Admission and Anticipated Discharge Date Admission Date: May 29, 2023 Subjective Pt examined at bedside this AM. Awake, resting in bed on arrival. No acute distress. External catheter in place. Reports lower abdominal and back pain. Denies fever or chills. Some nausea, no vomiting. Has been NPO. Review of Systems Constitutional: as per Subjective / HPI Gastrointestinal: as per Subjective / HPI Genitourinary: as per Subjective / HPI Physical Exam Constitutional: + morbidly obese; no acute distress Eyes: legally blind Respiratory: no respiratory distress and no labored breathing Musculoskeletal: Head/Neck/Chest: normocephalic Neurologic: awake Psychiatric: Orientation: alert and oriented x 3 Genitourinary: External catheter. Urine is clear yellow in canister. Results & Data Vital Signs (Past 12 Hours) Vital Signs Temp Pulse Pulse Resp BP BP Pulse Ox 05/30/23 07:30 71 05/30/23 07:12 05/30/23 07:12 05/30/23 07:12 36.8 C 72 18 110/65 94 05/30/23 06:15 74 18 95 05/30/23 06:01 72 18 93 05/30/23 06:01 73 18 112/69 94 05/30/23 06:00 73 18 94 05/30/23 05:45 70 19 93 05/30/23 05:30 72 20 94 05/30/23 05:15 70 18 95 05/30/23 05:00 68 20 93 05/30/23 05:00 05/30/23 04:45 66 16 92 05/30/23 04:30 64 16 93 05/30/23 04:15 65 20 92 05/30/23 04:00 66 17 129/74 93 05/30/23 04:00 66 17 93 05/30/23 03:45 66 16 93 05/30/23 03:30 62 13 92 05/30/23 03:15 62 13 91 05/30/23 03:00 61 13 91 05/30/23 02:46 05/30/23 02:45 60 15 05/30/23 02:30 60 16 91 05/30/23 02:15 63 20 96 05/30/23 02:00 59 L 16 92 05/30/23 02:00 65 19 116/61 95 05/30/23 01:45 65 19 95 05/30/23 01:30 60 18 97 05/30/23 01:15 60 18 99 05/30/23 01:00 60 17 95 05/30/23 00:45 62 17 97 05/30/23 00:30 61 18 94 05/30/23 00:15 61 19 95 05/30/23 00:01 60 14 94 05/30/23 00:01 60 16 100/60 94 05/30/23 00:00 60 16 94 05/29/23 23:45 60 16 95 05/29/23 23:30 60 23 96 05/29/23 23:15 61 18 95 05/29/23 23:00 60 05/29/23 23:00 60 18 97 05/29/23 22:45 60 21 94 05/29/23 22:45 60 20 101/52 L 95 Pulse Ox O2 Del Method O2 Del Method 05/30/23 07:30 05/30/23 07:12 Room Air 05/30/23 07:12 94 Room Air 05/30/23 07:12 Room Air 05/30/23 06:15 05/30/23 06:01 05/30/23 06:01 05/30/23 06:00 05/30/23 05:45 05/30/23 05:30 05/30/23 05:15 05/30/23 05:00 05/30/23 05:00 Room Air 05/30/23 04:45 05/30/23 04:30 05/30/23 04:15 05/30/23 04:00 05/30/23 04:00 05/30/23 03:45 05/30/23 03:30 05/30/23 03:15 05/30/23 03:00 05/30/23 02:46 Room Air 05/30/23 02:45 05/30/23 02:30 05/30/23 02:15 05/30/23 02:00 05/30/23 02:00 05/30/23 01:45 05/30/23 01:30 05/30/23 01:15 05/30/23 01:00 05/30/23 00:45 05/30/23 00:30 05/30/23 00:15 05/30/23 00:01 05/30/23 00:01 05/30/23 00:00 05/29/23 23:45 05/29/23 23:30 05/29/23 23:15 05/29/23 23:00 05/29/23 23:00 05/29/23 22:45 05/29/23 22:45 Room Air PG Care Time/CCT Total # of Minutes Spent Total Time Spent with Patient: Total time spent is greater than 50% in coordination of care (as documented) at patient's floor/unit and/or counseling patient: Coding Level of Care Code 49642 SUB INP/OBS CARE 2/35MIN Diagnoses UTI (urinary tract infection) N10 Urinary tract infection type: acute pyelonephritis Sepsis A41.9 Sepsis acute organ dysfunction status: unspecified Sepsis type: sepsis due to unspecified organism Kidney stones N20.0 (1) UTI (urinary tract infection) Urinary tract infection type: acute pyelonephritis Qualified Code(s): N10 - Acute pyelonephritis (2) Sepsis Sepsis acute organ dysfunction status: unspecified Sepsis type: sepsis due to unspecified organism Qualified Code(s): A41.9 - Sepsis, unspecified organism
--- NOTE | 2023-05-30 11:04 | Anesthesiology Consultation ---
Date of Service May 30, 2023 Assessment & Plan Chart Review Chart Review: Acceptable Risk for Surgery History Surgery Operation Date: 05/30/23 07:00 Proposed Procedures p Cystoscopy Left Ureteral Stent Placement, Right Ureteral Stent Exchange - Ernie Johansen DO Height/Weight Height: 5 ft 3 in Weight: 106.4 kg Allergies Allergy/AdvReac Type Severity Reaction Status Date / Time cephalexin Allergy Severe Anaphylaxis Verified 05/29/23 02:41 Cephalosporins Allergy Severe Anaphylaxis Verified 05/29/23 02:41 Sulfa (Sulfonamide Allergy Intermediate Hives Verified 05/29/23 02:41 Antibiotics) sulfamethoxazole Allergy Intermediate Hives Verified 05/29/23 02:41 [From Bactrim] trimethoprim [From Bactrim] Allergy Intermediate Hives Verified 05/29/23 02:41 butorphanol AdvReac Intermediate Rapid heart Verified 05/29/23 02:41 ciprofloxacin AdvReac Intermediate Nausea Verified 05/29/23 02:41 Medications Home Medications Medication Instructions Recorded Confirmed Last Taken aspirin 81 mg chewable tablet 81 mg PO QA 11/02/18 05/29/23 02/03/23 06:00 (Aspirin Childrens) atorvastatin 40 mg tablet 40 mg PO HS 11/02/18 05/29/23 02/02/23 20:00 erythromycin 5 mg/gram (0.5 %) eye 1 applic OPB QID 11/02/18 05/29/23 12/18/22 08:00 ointment folic acid 1 mg tablet 1 mg PO QAM 11/02/18 05/29/23 02/03/23 06:00 hydroxychloroquine 200 mg tablet 400 mg PO HS 11/02/18 05/29/23 02/02/23 20:00 (Plaquenil) levothyroxine 125 mcg tablet 125 mcg PO DAILYBB 11/02/18 05/29/23 02/03/23 06:00 lorazepam 0.5 mg tablet 0.5 mg PO TID PRN Anxiety 11/02/18 05/29/23 02/03/23 06:00 multivitamin with iron 1 tab PO QAM 11/02/18 05/29/23 02/02/23 08:00 prednisone 5 mg tablet 5 mg PO QAM 11/02/18 05/29/23 02/03/23 06:00 cyanocobalamin (vitamin B-12) 1,500 mcg PO QPM 10/20/19 05/29/23 02/02/23 20:00 1,000 mcg tablet (Vitamin B-12) hydrocodone 5 mg-acetaminophen 325 1 tab PO Q6H PRN Pain,mild 03/26/21 05/29/23 02/02/23 20:00 mg tablet magnesium oxide 400 mg (241.3 mg 400 mg PO QAM 08/30/21 05/29/23 02/02/23 08:00 magnesium) tablet netarsudil 0.02 % eye drops 1 drp OPL HS 08/30/21 05/29/23 12/17/22 (Rhopressa) methotrexate sodium 2.5 mg tablet 10 mg PO WK 02/11/22 05/29/23 02/01/23 08:00 clopidogrel 75 mg tablet (Plavix) 75 mg PO QAM 04/08/22 05/29/23 02/03/23 06:00 insulin glargine 100 unit/mL 33 unit subcut [facility] 08/19/22 05/29/23 05/28/23 09:00 subcutaneous solution (Lantus U-100 Insulin) acetaminophen 500 mg tablet 500 mg PO HS 11/05/22 05/29/23 02/02/23 20:00 (Tylenol Extra Strength) nystatin 100,000 unit/gram topical 1 applic topical TID PRN SKIN 11/05/22 05/29/23 Unknown powder IRRITATION UNDER BREASTS spironolactone 25 mg tablet 25 mg PO QAM 11/05/22 05/29/23 02/02/23 08:00 latanoprost 0.005 % eye drops 1 drp OPB PM 12/18/22 05/29/23 12/17/22 metoprolol succinate 25 mg 12.5 mg PO BID 12/18/22 05/29/23 02/03/23 06:00 tablet,extended release 24 hr torsemide 100 mg tablet 100 mg PO QAM 12/18/22 05/29/23 02/02/23 08:00 ferrous sulfate 325 mg (65 mg 325 mg PO QDL 01/26/23 05/29/23 02/02/23 12:00 iron) tablet,delayed release potassium chloride 20 mEq 20 meq PO BID 01/26/23 05/29/23 02/02/23 20:00 tablet,extended release ascorbic acid (vitamin C) 500 mg 500 mg PO DAILY 05/29/23 05/29/23 Unknown tablet (Vitamin C) betaxolol 0.5 % eye drops 1 drp OPL [facility] 05/29/23 05/29/23 Unknown gabapentin 300 mg capsule 300 mg PO [facility] 05/29/23 05/29/23 Unknown netarsudil 0.02 % eye drops 1 drp OPL 05/29/23 05/29/23 Unknown (Rhopressa) pantoprazole 40 mg tablet,delayed 40 mg PO DAILY 05/29/23 05/29/23 Unknown release sertraline 25 mg tablet 25 mg PO DAILY 05/29/23 05/29/23 Unknown Active Medications Generic Name Dose Route Start Last Admin Trade Name Pavelq PRN Reason Stop Dose Admin Acetaminophen 500 mg 05/29/23 21:00 05/29/23 21:26 Acetaminophen 500 Mg Tab PO 06/28/23 20:59 500 mg HS LIBBY Administration Ascorbic Acid 500 mg 05/29/23 09:00 05/30/23 08:47 Ascorbic Acid 500 Mg Tab PO 06/28/23 08:59 500 mg DAILY LIBBY Administration Aspirin 81 mg 05/29/23 09:00 05/30/23 08:47 Aspirin 81 Mg Chew PO 06/28/23 08:59 81 mg QAM LIBBY Administration Atorvastatin Calcium 40 mg 05/29/23 21:00 05/29/23 21:26 Atorvastatin 40 Mg Tab PO 06/28/23 20:59 40 mg HS LIBBY Administration Betaxolol HCl 1 drops 05/29/23 09:00 05/30/23 08:48 Betaxolol Hcl 0.5% Op 5 Ml Btl [facility] 06/28/23 08:59 1 drops BID LIBBY Administration Clopidogrel Bisulfate 75 mg 05/29/23 09:00 05/30/23 08:47 Clopidogrel Bisulfate 75 Mg Tab PO 06/28/23 08:59 75 mg QAM LIBBY Administration Cyanocobalamin 1,500 mcg 05/29/23 21:00 05/29/23 21:25 Cyanocobalamin (B-12) 500 Mcg Tablet PO 06/28/23 20:59 1,500 mcg QPM LIBBY Administration Erythromycin 1 appln 05/29/23 09:00 05/30/23 08:48 Erythromycin Op Oint 5 Mg/Gm 3.5 Gm Tube OPB 06/08/23 08:59 1 appln QID LIBBY Administration Ferrous Sulfate 325 mg 05/29/23 11:30 05/29/23 13:18 Ferrous Sulfate 325 Mg Tab PO 06/28/23 11:29 325 mg QDL LIBBY Administration Folic Acid 1 mg 05/29/23 09:00 05/30/23 08:45 Folic Acid 1 Mg Tab PO 06/28/23 08:59 1 mg QAM LIBBY Administration Gabapentin 300 mg 05/29/23 09:00 05/30/23 08:47 Gabapentin 300 Mg Cap PO 06/28/23 08:59 300 mg BID LIBBY Administration Hydroxychloroquine Sulfate 400 mg 05/29/23 21:00 05/29/23 21:25 Hydroxychloroquine Sulfate 200 Mg Tab PO 06/28/23 20:59 400 mg HS LIBBY Administration Insulin Aspart 0 units 05/29/23 16:30 05/30/23 08:48 Insulin Aspart Per Unit Charge SC 06/28/23 16:29 Not Given ACHS [facility] Insulin Glargine 11 units 05/30/23 09:00 05/30/23 08:49 Lantus Per Unit Charge SQ 06/29/23 08:59 11 units BID LIBBY Administration Latanoprost 1 drops 05/29/23 21:00 05/29/23 22:35 Latanoprost 0.005% Op Soln 2.5 Ml Btl OPB 06/28/23 20:59 1 drops PM LIBBY Administration Levothyroxine Sodium 125 mcg 05/29/23 06:30 05/30/23 06:20 Levothyroxine Sodium 125 Mcg Tablet PO 06/28/23 06:29 125 mcg DAILYBB LIBBY Administration Magnesium Oxide 400 mg 05/29/23 09:00 05/30/23 08:46 Magnesium Oxide 400 Mg Tab PO 06/28/23 08:59 400 mg QAM [facility] Administration Metoprolol Succinate 12.5 mg 05/29/23 09:00 05/30/23 08:46 Metoprolol Succ 25mg Ext Rel Tab PO 06/28/23 08:59 12.5 mg BID LIBBY Administration Miscellaneous 1 each 05/29/23 08:00 05/30/23 08:48 Netarsudil [Rhopressa]: Order Awaiting Action N/A 03/19/24 07:59 Not Given QS LIBBY Morphine Sulfate 2 mg 05/29/23 04:35 05/29/23 22:45 Morphine Sulfate 2 Mg/Ml Carp IV 06/12/23 04:34 2 mg Q3H PRN Administration Pain Protocol Multivitamins/Folic Acid/Vitamin C 1 tab 05/29/23 09:00 05/30/23 08:45 Multivitamin Chewable Tab PO 06/28/23 08:59 1 tab QAM LIBBY Administration Ondansetron HCl 4 mg 05/29/23 04:35 05/29/23 21:24 Ondansetron Inj 2 Mg/Ml 2 Ml Vial IV 06/28/23 04:34 4 mg Q6H PRN Administration Nausea Pantoprazole Sodium 40 mg 05/29/23 09:00 05/30/23 08:47 Pantoprazole 40 Mg Tab PO 06/28/23 08:59 40 mg DAILY LIBBY Administration Prednisone 5 mg 05/29/23 09:00 05/30/23 08:47 Prednisone 5 Mg Tab PO 06/28/23 08:59 5 mg QAM LIBBY Administration Sertraline HCl 25 mg 05/29/23 09:00 05/30/23 08:45 Sertraline Hcl 50 Mg Tablet PO 06/28/23 08:59 25 mg DAILY LIBBY Administration Past Medical History Medical History CAD (coronary artery disease) s/p PCI with WALTER to mid LAD 03/22/22 (mild luminal irregularities elsewhere) History of blood transfusion 1980s Morbid obesity with BMI of 40.0-44.9, adult On anticoagulant therapy plavix daily History of COVID-19 diagnosed end of 05/2022 via home test--cough, body aches, sore throat, nausea, runny nose--no symptoms now Edema of both legs current issue--has perez wraps around both legs 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 LICA less than 50% stenosis. Aortic stenosis S/p TAVR 12/09/22 Blindness Left eye (since ), right eye sown shut "from the inside"; legally blind Pancreatic lesion 1.1 cm stable small cystic lesion in body of pancreas per 01/21/[address] Ischemic cardiomyopathy EF 25-29% 01/2023 echo Diabetic retinopathy History of atrial fibrillation Single, brief episode (2017) PAF/flutter per cardio records- [id number] score of 3- No AC due to bleeding risk (chronic microscopic hematuria with frequent urological procedures, hemorrhoids, AVMs, thrombocytopenia, liver cancer, etc.) Hypertension Kidney stones hx Liver cancer Stage 1, s/p embolization (injection black poppyseed oil twice) under surveillance by [facility] heme/onc - had radiation seeds placed 10/18/22 Diabetic neuropathy Chronic back pain Chronic kidney disease, stage 3 follows with [facility] nephrology Hernia Current Pancreatitis Mutliple, 15+ episodes (no current issues) History of gastric ulcer Hypothyroidism Diabetes mellitus, type 2 IDDM History of cancer 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 TIA vs CVA x2 (20+ years ago), no deficits Migraine Hx years ago Hyperlipidemia Congestive heart failure EF 25-29% on 01/2023 echo Myocardial Infarction Remote silent AL (10+ years ago) Sleep apnea CPAP History of sinus problem Reason for nebulizer and inhalers prn Past Family History Family History Father Family history of diabetes mellitus Family history of reaction to anesthesia difficulty waking Mother Family history of diabetes mellitus Sister Family history of diabetes mellitus Brother Family history of diabetes mellitus Grandmother (Maternal) Family history of diabetes mellitus Grandmother (Paternal) Family history of diabetes mellitus Son Family history of diabetes mellitus Past Surgical History Surgical History S/P TAVR (transcatheter aortic valve replacement) December 2022 at [facility]. mechanical valve. follows with [facility]. S/P cardiac cath [facility] 03/2022 History of cardiac cath 03/22/22 > 1 stent drug eluting> Estefania > see report in records Status post laser lithotripsy of ureteral calculus x3 -> November 2019, December 2019, August 2020 History of ERCP History of cystoscopy --multiple-- Cystoscopy, right stent, right laser lithotripsy (08/11/2020): LMA 4.0 unique, atraumatic, LMA attempt x1 at [facility]. No issues per postop anesthesia progress note. History of liver biopsy X 2 Nausea and vomiting after administration of anesthetic agent History of dilatation and curettage x3 S/P foot surgery, left "stepped on a needle and had to have it removed" History of carpal tunnel release of both wrists History of lumbar discectomy History of biopsy of bladder showed chronic cystitis History of total hysterectomy with bilateral salpingo-oophorectomy (BSO) History of appendectomy History of cholecystectomy History of colonoscopy History of esophagogastroduodenoscopy (EGD) History of tooth extraction all top teeth, most of bottom History of partial thyroidectomy right side and ismis removed d/t papillary cancer History of tarsorrhaphy BILT--right eye closed shut, left eye partly closed History of bilateral cataract extraction History of detached retina repair x4 on right eye; sx to sew right eye shut in 2017 Social History Smoking Status: Never smoker Do You Dip or Chew Tobacco: No Hx Alcohol Use: No Hx Substance Use: No substance use type: does not use Physical Exam Vital Signs Last Vital Signs Temp 36.8 C 05/30/23 07:12 Pulse 71 05/30/23 07:30 Resp 18 05/30/23 07:12 BP 110/65 05/30/23 07:12 Pulse Ox 94 05/30/23 07:12 O2 Del Method Room Air 05/30/23 07:12 Testing Laboratory Results 05/30/23 03:34 05/30/23 03:34 Hemoglobin A1c 7.3 % (4.5-5.6) H 05/29/23 06:51 Urine Color Yellow 05/28/23 23:18 Urine Appearance Cloudy (Clear) A 05/28/23 23:18 Urine pH 5.5 (4.5-7.5) 05/28/23 23:18 Ur Specific [place] 1.010 (1.000-1.030) 05/28/23 23:18 Urine Protein Negative (Negative) 05/28/23 23:18 Urine Glucose (UA) Negative (Negative) 05/28/23 23:18 Urine Ketones Negative (Negative) 05/28/23 23:18 Urine Nitrite Positive (Negative) A 05/28/23 23:18 Ur Leukocyte Esterase 3+ (Negative) H 05/28/23 23:18 Urine WBC (Auto) >30 /hpf (0-5) H 05/28/23 23:18 Urine RBC (Auto) 0-4 /hpf (0-4) 05/28/23 23:18 U Hyaline Cast (Auto) 10-30 /lpf (0-5) H 05/28/23 23:18 U Epithel Cells (Auto) 20-30 /lpf (0-5) H 05/28/23 23:18 Urine Bacteria (Auto) Negative (Negative) 05/28/23 23:18 05/28/23 21:54 Aerobic Blood Culture - Preliminary Blood No growth in Aerobic bottle after 24 hours. Anaerobic Blood Culture - Preliminary Gram positive cocci clusters 05/28/23 21:50 Aerobic Blood Culture - Preliminary Blood No growth in Aerobic bottle after 24 hours. Anaerobic Blood Culture - Final 05/28/23 23:18 Urine Culture - Final Urine,Straight Cath Three types of organisms present, all high counts probable skin stacy. No further identifications or sensitivities to follow. 05/30/23 05/30/23 08:01 00:51 POC Glucose 130 H 145 H Electrocardiogram Date: 05/28/23 Findings: + RBBB atrial paced 90 Echocardiogram Date: 01/20/23 EF: 25% s/p TAVR with normal valve function mild pulm htn
[2023-05-30] MEDS ORDERED: ATROPINE SULFATE 0.1 MG/ML 10ML SYR IV PRN (12:30)
[2023-05-30] MEDS ORDERED: ONDANSETRON INJ 2 MG/ML 2 ML VIAL IV PRN (12:30)
[2023-05-30] MEDS ORDERED: fentaNYL citrate PF 100 MCG/2 ML VIAL IV PRN (12:30)
[2023-05-30] MEDS: SODIUM CHLORIDE 0.9% 1,000 ML IV SCH (12:45)
[2023-05-30] MEDS ORDERED: PROPOFOL IV EMULSION 10 MG/ML 20 ML VIAL IV ONE (12:46)
--- NOTE | 2023-05-30 12:52 | Pharmacy Report ---
Pharmacy Glycemic Short Note 2 - Date of Service May 30, 2023 - Glycemic Short BSG Results (Last 24 hours): 05/29/23 05/29/23 05/30/23 17:42 21:29 00:51 Glucose POC Glucose 172 H 165 H 145 H 05/30/23 05/30/23 05/30/23 03:34 08:01 12:24 Glucose 130 H POC Glucose 130 H 143 H OUTPATIENT ANTIDIABETIC REGIMEN: * Lantus 33 units QAM * A1c 7.3% 05/29/23 ASSESSMENT: * Patient admitted with kidney stones/sepsis, currently NPO for cystoscopy, b/l retrograde pyelogram and possible ureteral stent insertion/exchange * SCr does continue to trend upward 1.82 --> 2.88 * BSGs have been stable, will continue with 11 units of lantus BID, novolog cF 35, cr 12 (this is based of home insulin dose) PLAN FOR INPATIENT GLYCEMIC CONTROL: * Hold outpatient oral diabetes medications * Basal insulin * Lantus 11 units SQ BID * Bolus insulin * NovoLog per scale ACHS or Q6hrs while NPO * Goal Range: Low 110 mg/dL - High 140 mg/dL * Correction Factor: 35 mg/dL/unit * Nutritional / Prandial insulin per carb ratio of 1 unit per 12 grams CHO consumed
[2023-05-30] MEDS: Nursing to Pharmacy Communication SCH (12:56)
[2023-05-30] MEDS ORDERED: PHENYLEPHRINE 100MCG/ML 10ML SYR IV ONE (13:28)
[2023-05-30] MEDS ORDERED: PHENYLEPHRINE HCL 10 MG/ML VIAL ONE (13:36)
[2023-05-30] MEDS: DIATRIZOATE MEGLUMINE 30% 100ML VIAL INSTIL ONE (13:50)
--- NOTE | 2023-05-30 14:07 | Operative Report ---
PG Post Operative Report Pre & Post Diagnosis Operation Date: 05/30/23 07:00 Pre-Op Diagnosis: Urinary tract infection; Sepsis; Kidney stones Post-Op Diagnosis: Urinary tract infection; Sepsis; Kidney stones I identified the patient and participated in the time-out.: Yes Procedure Operation Date: 05/30/23 07:00 Actual Procedures p Cystoscopy with bilateral retrograde pyelogram, left ureteral dilation, Left Ureteral Stent Placement, Right Ureteral Stent Exchange - Ernie Johansen, Surgeon Ernie Johansen, II, DO Employee Communications Manager None Estimated Blood Loss 1 Findings Consistent with Post-Op Diagnosis Narrowing at distal left ureter, dilated. Left ureteral stent placement. Partial duplication of the right ureter. Right Stent exchanged and placed in good position. Significant dilation of small bowel/colon. Specimens None Drains 4.8 Fr x 24cm bilateral 18 Fr matute Anesthesia Type MAC Complications none Disposition Disposition: Recovery Room Indications Patient with obstruction with chronic right stent changes. Developed issues on left with possible stone/obstruction. Risks and benefits discussed at length. Description of Procedure Patient was consented and brought back to the operating room. Patient was placed under anesthesia in the supine position and moved to the dorsal lithotomy position. Patient was prepped and draped in the regular sterile fashion. A time out was completed. A 30degree Cystoscope was placed into the bladder and the entire bladder was examined. The UO's were identified. Moderate debris was seen in the base of the bladder. The right stent appeared to be encrusted. A 5 Kosovan open-ended catheter was placed into the right ureter and a wire was able to be placed. The right stent was grasped and removed. The UO was cannulized over the wire with a catheter and a retrograde pyelogram was completed. Once again patient was found to have a partial duplicated system on the right with malrotation. The wire was maintained and the catheter removed. With the wire in place, a 4.8 Fr Double J stent was placed. It was confirmed with fluoroscopy. Attention was then taken onto the left side. The bladder was found to be severely inflamed in the bladder. The left UO was attempted to be cannulated. Multiple attempts were necessary in order to access the left UO. With manipulation a wire was able to be placed. The distal ureter had to be dilated in order to allow a 5 Kosovan catheter to be placed. A 5 Kosovan open-ended catheter was then placed and a retrograde pyelogram was completed. No considerable hydronephrosis however significant drainage was appreciated after the dilation. A retrograde pyelogram was completed and the wire was replaced. A 4.8 Kosovan double-J ureteral stent was then placed under fluoroscopic guidance. The stent placement in the renal pelvis did not appear to be adequate and a significant portion of the stent appeared to be displaced down towards the bladder appeared This had to be partially removed and re position into a better position. This was confirmed with fluoroscopy in the stent was found to be in much better position in the renal pelvis With the stents in place, the bladder was emptied. The scope was removed. A 18 Kosovan coud catheter was then placed. The catheter was placed to drainage. The patient was cleaned, aroused from anesthesia, and transferred to the pacu in stable condition having tolerated the procedure well with no complications. I was present and participated in all aspects of the procedure. The patient will be monitored in the PACU until transferred. Patient will be monitored in the hospital. Will reassess after completion of antibiotic course. Will likely need repeat imaging I attest to the content of the Intraoperative Record and any orders documented therein. Any exceptions are noted below.
--- NOTE | 2023-05-30 14:35 | Anesthesiology Progress Note ---
Date of Service May 30, 2023 Anesthesia Post Procedure Vital Signs Vital Signs: Temp Pulse Pulse Pulse Resp BP BP 05/30/23 14:30 60 15 110/59 L 05/30/23 14:20 67 15 97/74 L 05/30/23 14:10 36.0 C L 64 14 101/56 L 05/30/23 12:26 36.8 C 65 20 103/60 05/30/23 07:30 71 05/30/23 07:12 05/30/23 07:12 05/30/23 07:12 36.8 C 72 18 110/65 05/30/23 06:15 74 18 05/30/23 06:01 72 18 05/30/23 06:01 73 18 112/69 05/30/23 06:00 73 18 05/30/23 05:45 70 19 05/30/23 05:30 72 20 05/30/23 05:15 70 18 05/30/23 05:00 68 20 05/30/23 05:00 05/30/23 04:45 66 16 05/30/23 04:30 64 16 05/30/23 04:15 65 20 05/30/23 04:00 66 17 129/74 05/30/23 04:00 66 17 05/30/23 03:45 66 16 05/30/23 03:30 62 13 05/30/23 03:15 62 13 05/30/23 03:00 61 13 05/30/23 02:46 05/30/23 02:45 60 15 05/30/23 02:30 60 16 05/30/23 02:15 63 20 05/30/23 02:00 59 L 16 05/30/23 02:00 65 19 116/61 05/30/23 01:45 65 19 05/30/23 01:30 60 18 05/30/23 01:15 60 18 05/30/23 01:00 60 17 05/30/23 00:45 62 17 05/30/23 00:30 61 18 05/30/23 00:15 61 19 05/30/23 00:01 60 14 05/30/23 00:01 60 16 100/60 05/30/23 00:00 60 16 05/29/23 23:45 60 16 05/29/23 23:30 60 23 05/29/23 23:15 61 18 02/18/24 23:00 60 05/29/23 23:00 60 18 05/29/23 22:45 60 21 05/29/23 22:45 60 20 101/52 L 05/29/23 22:30 60 17 05/29/23 22:15 60 17 05/29/23 22:01 60 19 05/29/23 22:01 101/52 L 05/29/23 22:00 60 25 H 05/29/23 21:45 60 22 05/29/23 21:30 60 18 05/29/23 21:24 60 20 107/39 L 05/29/23 21:15 60 17 05/29/23 21:00 63 17 05/29/23 20:45 60 18 05/29/23 20:30 61 15 05/29/23 20:15 60 19 05/29/23 20:01 107/39 L 05/29/23 20:01 60 18 05/29/23 20:00 60 18 05/29/23 19:45 60 17 05/29/23 19:30 60 18 05/29/23 19:15 60 20 05/29/23 19:00 60 17 05/29/23 18:45 60 16 05/29/23 18:30 58 L 19 05/29/23 18:15 60 22 05/29/23 18:01 61 16 05/29/23 18:00 61 19 05/29/23 17:53 62 05/29/23 17:45 60 15 05/29/23 17:30 61 17 05/29/23 17:15 60 15 05/29/23 17:00 60 15 05/29/23 16:45 60 15 05/29/23 16:30 60 18 05/29/23 16:15 60 15 05/29/23 16:00 61 16 05/29/23 16:00 96/58 L 05/29/23 15:45 60 15 05/29/23 15:30 60 15 05/29/23 15:19 60 17 96/51 L 05/29/23 15:15 60 15 05/29/23 15:00 60 16 05/29/23 14:45 60 15 Pulse Ox Pulse Ox O2 Del Method O2 Del Method O2 Flow Rate 05/30/23 14:30 95 Room Air 05/30/23 14:20 100 Oxymask 5 05/30/23 14:10 100 Oxymask 9 05/30/23 12:26 94 Room Air 05/30/23 07:30 05/30/23 07:12 Room Air 05/30/23 07:12 94 Room Air 05/30/23 07:12 94 Room Air 05/30/23 06:15 95 05/30/23 06:01 93 05/30/23 06:01 94 05/30/23 06:00 94 05/30/23 05:45 93 05/30/23 05:30 94 05/30/23 05:15 95 05/30/23 05:00 93 05/30/23 05:00 Room Air 05/30/23 04:45 92 05/30/23 04:30 93 05/30/23 04:15 92 05/30/23 04:00 93 05/30/23 04:00 93 05/30/23 03:45 93 05/30/23 03:30 92 05/30/23 03:15 91 05/30/23 03:00 91 05/30/23 02:46 Room Air 05/30/23 02:45 05/30/23 02:30 91 05/30/23 02:15 96 05/30/23 02:00 92 05/30/23 02:00 95 05/30/23 01:45 95 05/30/23 01:30 97 05/30/23 01:15 99 05/30/23 01:00 95 05/30/23 00:45 97 05/30/23 00:30 94 05/30/23 00:15 95 05/30/23 00:01 94 05/30/23 00:01 94 05/30/23 00:00 94 05/29/23 23:45 95 05/29/23 23:30 96 05/29/23 23:15 95 05/29/23 23:00 05/29/23 23:00 97 05/29/23 22:45 94 05/29/23 22:45 95 Room Air 05/29/23 22:30 94 05/29/23 22:15 94 05/29/23 22:01 96 05/29/23 22:01 05/29/23 22:00 94 05/29/23 21:45 95 05/29/23 21:30 95 05/29/23 21:24 96 Room Air 05/29/23 21:15 92 05/29/23 21:00 97 05/29/23 20:45 96 05/29/23 20:30 94 05/29/23 20:15 95 05/29/23 20:01 05/29/23 20:01 94 05/29/23 20:00 96 05/29/23 19:45 95 05/29/23 19:30 95 05/29/23 19:15 95 05/29/23 19:00 93 05/29/23 18:45 97 05/29/23 18:30 95 05/29/23 18:15 92 05/29/23 18:01 92 05/29/23 18:00 93 05/29/23 17:53 05/29/23 17:45 94 05/29/23 17:30 93 05/29/23 17:15 93 05/29/23 17:00 93 05/29/23 16:45 91 05/29/23 16:30 93 05/29/23 16:15 92 05/29/23 16:00 93 05/29/23 16:00 05/29/23 15:45 93 05/29/23 15:30 94 05/29/23 15:19 95 Room Air 05/29/23 15:15 93 05/29/23 15:00 94 05/29/23 14:45 93 Pain Intensity Abdomen: Pain Intensity: 6 Back: Pain Intensity: 3 Transfer of Care Handoff Completed per policy Notes Mental Status: alert / awake / arousable and participated in evaluation Patient Amnestic to Procedure: Yes Nausea / Vomiting: adequately controlled Pain: adequately controlled Airway Patency, RR, SpO2: stable & adequate BP & HR: stable & adequate Hydration State: stable & adequate Anesthetic Complications: no major complications apparent and Pt Satisfied with anesthetic care
--- NOTE | 2023-05-30 14:40 | Fluoroscopy Report ---
FL retrograde includes kub CLINICAL HISTORY: LEFT STENT PLACENEMTN - RIGHT STENT EXCHANGE COMPARISON STUDY: CT 05/28/2023 FLUOROSCOPY TIME: 145.2 seconds FLUOROSCOPY IMAGES: 5 EXPOSURE DOSE: 68.30 mGy FINDINGS: Right upper quadrant surgical clips. Study is limited secondary to patient body habitus and dilated air-filled loops of large bowel. Bilateral ureteral stents are present which are likely in s atisfactory positioning. A catheter projects over the midline pelvis. IMPRESSION: Fluoroscopic assistance as above. ACT 112: Negative or not required by law. Electronically signed by: Luis Enrique Yarbrough M.D. 05/30/2023 2:39 PM
--- NOTE | 2023-05-30 18:00 | Hospitalist Progress Note ---
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 Initial lactic acid is 3 and repeat is 2.3 S/p Cystoscopy with bilateral retrograde pyelogram, left ureteral dilation, Left Ureteral Stent Placement, Right Ureteral Stent Exchange by Urology Blood culture growing GPC in one bottle Repeat blood cultures Urine culture is contaminated Repeat Urine culture Previous UTI urine culture grew ESBL Proteus Currently on IV ertapenem, renally dosed History of systolic and diastolic CHF EF 25 to 29% on echo in January 2023 Holding diuretics and potassium supplement Monitor History of CAD s/p stent On aspirin, Plavix and statin and metoprolol to give with holding parameters Mild elevation of troponin Mostly demand ischemia Monitor ALONA on CKD stage III Presented with creatinine 1.8 Baseline creatinine around 1 Holding diuretics Cr trended up to 2.88 this morning prior to procedure Monitor Nephrology on board PAF Tachybradycardia syndrome S/p pacemaker Metoprolol with holding parameters Not on anticoagulation due to GI bleed History of TIA On aspirin and Plavix and statin Obstructive sleep apnea On CPAP nightly History of rheumatoid arthritis Continue Plaquenil and prednisone 5 mg daily if need will place on stress dose steroids. Hypothyroidism On Synthyroid Diabetes Continue Lantus to 15 units daily as patient is currently n.p.o. Sliding scale We will monitor History of hepatocellular carcinoma Status post embolization Currently following with heme-onc Thrombocytopenia Chronic Will monitor Severe aortic S/p TAVR DVT prophylaxis SCDs for now as patient has thrombocytopenia CODE STATUS full code I spent a total of 50 minutes coordinating, documenting and providing care for this patient excluding time spent in performance of separately billed services Admission and Anticipated Discharge Date Admission Date: May 29, 2023 Subjective Patient seen and examined after return from OR Reports abd discomfort and back pain Still recovering from OR Denied any nausea, vomiting Denied chills Denied chest pain, cough, shortness of breath Physical Exam Constitutional: + well hydrated and + obese; no acute di stress Eyes: Blind ENMT: external ear and nose normal, oropharynx normal Respiratory: normal respiratory effort, lungs clear to auscultation Cardiovascular: Rate/Rhythm: regular rate and regular rhythm S1 S2 Gastrointestinal (Abdomen): normal bowel sounds, soft, nontender, no hepatosplenomegaly Musculoskeletal: +bilateral pedal edema Neurologic: PERRL, EOMI, accommodation nl, no face palsy, no dysarthria Psychiatric: A+Ox3, euthymic affect Genitourinary: Red in situ, blood tinged urine Results & Data Results & Data Vital Signs (Past 12 Hours) Vital Signs Temp Pulse Pulse Pulse Resp BP BP 05/30/23 17:13 36.5 C 66 18 120/76 05/30/23 16:40 05/30/23 15:58 36.5 C 60 16 119/77 05/30/23 15:36 36.5 C 60 16 102/52 L 05/30/23 15:08 36.4 C L 61 16 133/69 05/30/23 14:40 36.5 C 60 17 117/53 L 05/30/23 14:30 60 15 110/59 L 05/30/23 14:20 67 15 97/74 L 05/30/23 14:10 36.0 C L 64 14 101/56 L 05/30/23 12:26 36.8 C 65 20 103/60 05/30/23 07:30 71 05/30/23 07:12 05/30/23 07:12 05/30/23 07:12 36.8 C 72 18 110/65 05/30/23 06:15 74 18 05/30/23 06:01 72 18 05/30/23 06:01 73 18 112/69 05/30/23 06:00 73 18 Pulse Ox Pulse Ox O2 Del Method O2 Del Method O2 Flow Rate 05/30/23 17:13 95 Room Air 05/30/23 16:40 Room Air 05/30/23 15:58 93 Room Air 05/30/23 15:36 93 Room Air 05/30/23 15:08 97 Room Air 05/30/23 14:40 96 Room Air 05/30/23 14:30 95 Room Air 05/30/23 14:20 100 Oxymask 5 05/30/23 14:10 100 Oxymask 9 05/30/23 12:26 94 Room Air 05/30/23 07:30 05/30/23 07:12 Room Air 05/30/23 07:12 94 Room Air 05/30/23 07:12 94 Room Air 05/30/23 06:15 95 05/30/23 06:01 93 05/30/23 06:01 94 05/30/23 06:00 94 Laboratory Results Abnormal lab results 05/29/23 05/29/23 05/30/23 Range/Units 06:51 21:29 00:51 WBC (4.8-10.8) K/ul RBC (4.20-5.40) M/uL Hgb (12.0-16.0) g/dl Hct (37.0-47.0) % RDW Std Deviation (36.4-46.3) fL RDW Coeff of Juani (11.5-14.5) % Plt Count (130-400) K/uL Sodium (136-145) mmol/L BUN (6-23) mg/dl Creatinine (0.6-1.2) mg/dl BUN/Creatinine Ratio (10-20) Glucose (70-99(Fasting)) mg/dl POC Glucose 165 H 145 H (70-99) mg/dl Hemoglobin A1c 7.3 H (4.5-5.6) % Calcium (8.6-10.3) mg/dl Phosphorus (2.5-4.9) mg/dl Total Bilirubin (0.2-1.0) mg/dl AST (13-39) U/L ALT (7-52) U/L Alkaline Phosphatase (34-104) U/L Total Protein (6.0-8.3) gm/dl Albumin (3.4-5.0) gm/dl Procalcitonin (0-0.5) ng/ml 05/30/23 05/30/2305/30/24 Range/Units 03:34 08:01 12:24 WBC 16.14 H (4.8-10.8) K/ul RBC 3.40 L (4.20-5.40) M/uL Hgb 9.8 L (12.0-16.0) g/dl Hct 30.5 L (37.0-47.0) % RDW Std Deviation 64.7 H (36.4-46.3) fL RDW Coeff of Juani 20.2 H (11.5-14.5) % Plt Count 70 L (130-400) K/uL Sodium 131 L (136-145) mmol/L BUN 78 H (6-23) mg/dl Creatinine 2.88 H D (0.6-1.2) mg/dl BUN/Creatinine Ratio 27.1 H (10-20) Glucose 130 H (70-99(Fasting)) mg/dl POC Glucose 130 H 143 H (70-99) mg/dl Hemoglobin A1c (4.5-5.6) % Calcium 8.4 L (8.6-10.3) mg/dl Phosphorus 5.4 H (2.5-4.9) mg/dl Total Bilirubin 1.3 H (0.2-1.0) mg/dl AST 217 H (13-39) U/L ALT 159 H (7-52) U/L Alkaline Phosphatase 169 H (34-104) U/L Total Protein 5.7 L (6.0-8.3) gm/dl Albumin 3.0 L (3.4-5.0) gm/dl Procalcitonin 24.00 H (0-0.5) ng/ml 05/30/23 05/30/23 Range/Units 14:13 17:22 WBC (4.8-10.8) K/ul RBC (4.20-5.40) M/uL Hgb (12.0-16.0) g/dl Hct (37.0-47.0) % RDW Std Deviation (36.4-46.3) fL RDW Coeff of Juani (11.5-14.5) % Plt Count (130-400) K/uL Sodium (136-145) mmol/L BUN (6-23) mg/dl Creatinine (0.6-1.2) mg/dl BUN/Creatinine Ratio (10-20) Glucose (70-99(Fasting)) mg/dl POC Glucose 188 H 152 H (70-99) mg/dl Hemoglobin A1c (4.5-5.6) % Calcium (8.6-10.3) mg/dl Phosphorus (2.5-4.9) mg/dl Total Bilirubin (0.2-1.0) mg/dl AST (13-39) U/L ALT (7-52) U/L Alkaline Phosphatase (34-104) U/L Total Protein (6.0-8.3) gm/dl Albumin (3.4-5.0) gm/dl Procalcitonin (0-0.5) ng/ml (1) Sepsis Sepsis acute organ dysfunction status: unspecified Sepsis type: sepsis due to unspecified organism Qualified Code(s): A41.9 - Sepsis, unspecified organism
--- NOTE | 2023-05-30 19:20 | Nephrology Progress Note ---
Date of Service May 30, 2023 Assessment & Plan (1) ALONA (acute kidney injury): Plan: Patient with worsening acute kidney injury of multifactorial etiology including ATN from sepsis and obstructive uropathy. Baseline creatinine is 1.2. Creatinine is uptrending further w/ big overnight jump to 2.9. Patient is being treated for urosepsis on ertapenem. CT abdomen showed atrophy of the right kidney with a right ureteral stent. There is also partial obstructive left renal stone measuring 8 mm. Patient is making urine. -s/p 05/30 L uretera stent and R stent exchange -cont to hold torsemide and Aldactone for today. -Reassess volume status in the morning and consider resuming her diuretics tomorrow -Daily BMP -Avoid contrast care coordinated w/ Dr Madrid (2) Kidney stones: Plan: Patient with obstructive kidney stone on the left side. s/p high risk stent placement but was deemed a high risk surgical candidate by urology. Will continue antibiotics and monitor. If renal function continues to worsen, cystoscopy and stent placement will be warranted. -Continue to monitor renal function, input output daily Admission and Anticipated Discharge Date Admission Date: May 29, 2023 Subjective underwent L ureteral stent and R stent exchange today. seen on afternoon rounds about 345. tired, hoarse after procedure. no sob; no n; pain controlled. Review of Systems 2 Review of Systems: All systems reviewed & are unremarkable except as noted in Subjective Physical Exam 2 Constitutional: well developed, well nourished, + obese and + lethargic Eyes: + eyelid abnormality (violaceous eyelids which she holds closed; blind) ENMT: Ears: no external ear abnormality Nose: no external nose abnormality Mouth: + dry oral mucous membranes Neck: no nuchal rigidity Respiratory: normal respiratory effort Auscultation: + diminished lung sounds (anterior exam) Cardiovascular: Rate/Rhythm: regular rate and regular rhythm Extremities: + edema (2-3+ dependent) Gastrointestinal (Abdomen): Inspection/Auscultation: abdomen normal to inspection (massive pannus) and normal bowel sounds Percussion/Palpation: a bdomen soft; abdomen nontender Musculoskeletal: Extremities: strength 5/5 throughout Skin: no rashes, warm and dry Neurologic: lopez, fluent though limited speech, no tremor Psychiatric: Orientation: oriented x 3 Results & Data Vital Signs (Past 12 Hours) Vital Signs Temp Pulse Pulse Pulse Resp BP Pulse Ox 05/30/23 17:13 36.5 C 66 18 120/76 95 05/30/23 16:40 05/30/23 15:58 36.5 C 60 16 119/77 93 05/30/23 15:36 36.5 C 60 16 102/52 L 93 05/30/23 15:08 36.4 C L 61 16 133/69 97 05/30/23 14:40 36.5 C 60 17 117/53 L 96 05/30/23 14:30 60 15 110/59 L 95 05/30/23 14:20 67 15 97/74 L 100 05/30/23 14:10 36.0 C L 64 14 101/56 L 100 05/30/23 12:26 36.8 C 65 20 103/60 94 05/30/23 07:30 71 O2 Del Method O2 Flow Rate 05/30/23 17:13 Room Air 05/30/23 16:40 Room Air 05/30/23 15:58 Room Air 05/30/23 15:36 Room Air 05/30/23 15:08 Room Air 05/30/23 14:40 Room Air 05/30/23 14:30 Room Air 05/30/23 14:20 Oxymask 5 05/30/23 14:10 Oxymask 9 05/30/23 12:26 Room Air 05/30/23 07:30 Laboratory Results 05/30/23 03:34 05/30/23 03:34
[2023-05-30] MEDS: ERTAPENEM SODIUM 500 MG in SYRINGE 0 ML IV SCH (21:44)
[2023-05-31 06:34] LABS: Hematocrit (blood only) 31.6 % (37.0-47.0); Hemoglobin 10.1 g/dl (12.0-16.0); Mean Corpuscular Hemoglobin 28.9 pg (25.0-34.0); Mean Corpuscular Volume 90.3 fL (80.0-100.0); Mean Platelet Volume 12.3 fL (9.4-12.4); Nucleated RBC # (auto) 0.02 K/uL (0.00-0.12); Nucleated RBC % (auto) 0.1 %; Platelet Count 66 K/uL (130-400); RDW Coefficient of Variation 20.5 % (11.5-14.5); RDW Standard Deviation 65.8 fL (36.4-46.3); White Blood Count 15.21 K/ul (4.8-10.8)
[2023-05-31 07:11] LABS: Albumin Globulin Ratio 1.3 (0.9-2); BUN Creatinine Ratio 31.3 (10-20); Bilirubin,Total 1.1 mg/dl (0.2-1.0); Calcium 8.2 mg/dl (8.6-10.3); Creatinine Clr Calc Pharmacy 20.6 ml/min; Est GFR (African American) 18.3 ml/min; Est GFR (Non-African American) 15.8 ml/min; Globulin 2.3 gm/dl (2.5-4.0); Magnesium 2.4 mg/dl (1.7-2.4); Phosphorus 5.6 mg/dl (2.5-4.9); Total Protein 5.3 gm/dl (6.0-8.3)
[2023-05-31 07:23] LABS: Troponin I High Sensitivity 449.8 pg/ml (0-14)
[2023-05-31] MEDS ORDERED: LANTUS PER UNIT CHARGE SQ SCH (09:00)
[2023-05-31] MEDS: LANTUS PER UNIT CHARGE SQ SCH (09:33)
--- NOTE | 2023-05-31 10:03 | Nephrology Progress Note ---
Date of Service May 31, 2023 Assessment & Plan (1) ALONA (acute kidney injury): Plan: Patient with borderline oliguria and stable stage 2 acute kidney injury of multifactorial etiology including ATN from sepsis and obstructive uropath, the latter relieved on 05/30. Baseline creatinine is 1.2. Creatinine is plateau'd at 2.8 after big overnight jump on am 05/30. Patient is being treated for urosepsis on ertapenem. CT abdomen showed atrophy of the right kidney with a right ureteral stent w/ partial obstructive left renal stone measuring 8 mm. s/p 05/30 L ureteral stent and R stent exchange. Patient is making about daily 400 mL urine. >>today w/ new troponin elevation and suspect congestive transaminitis and ongoing symptomatic cough >> concern for acute HF -need to resume diuretics >> have ordered bumex 2 mg tid IV and continue matute for now -cont to hold aldactone -f/u cardiology recs -Daily BMP -Avoid contrast Care coordinated w/ [facility] (2) Kidney stones: Plan: Patient with obstructive kidney stone on the left side. s/p high risk stent placement. originally deemed a high risk surgical candidate by urology but ultimately w/ procedure above. Will continue antibiotics and monitor. -Continue to monitor renal function, input output daily Admission and Anticipated Discharge Date Admission Date: May 29, 2023 Subjective cough since tuesday productive, causing some mild pleuritic pain and limiting po b/c makes her gag. more awake today. stable chronic back pain. some sob w/ cough. Review of Systems 2 Review of Systems: All systems reviewed & are unremarkable except as noted in Subjective Physical Exam 2 Constitutional: well developed, well nourished, + acute distress (mild w/ cough, emesis basin) and + obese Eyes: + eyelid abnormality (violaceous eyelids which she holds closed; blind) ENMT: Ears: no external ear abnormality Nose: no external nose abnormality Mouth: + dry oral mucous membranes Neck: no nuchal rigidity Respiratory: normal respiratory effort, + cough and able to speak in complete sentences; no labored breathing Auscultation: + crackles (L basilar crackles; R clear + upper airway sounds) Cardiovascular: Rate/Rhythm: regular rate and regular rhythm Extremities: + edema (2-3+ dependent) Gastrointestinal (Abdomen): Inspection/Auscultation: abdomen normal to inspection (massive pannus) and normal bowel sounds Percussion/Palpation: a bdomen soft; abdomen nontender Musculoskeletal: Extremities: strength 5/5 throughout Skin: no rashes, warm and dry Neurologic: lopez, fluent speech, no tremor Psychiatric: Orientation: oriented x 3 Results & Data Vital Signs (Past 12 Hours) Vital Signs Temp Pulse Pulse Resp BP Pulse Ox O2 Del Method 05/31/23 07:40 36.3 C L 63 16 113/60 97 Room Air 05/31/23 04:03 36.3 C L 63 18 96/61 L 95 Room Air 05/30/23 23:14 35.7 C L 69 18 117/69 96 Room Air 05/30/23 22:34 58 L Laboratory Results 05/31/23 05:52 05/31/23 05:52
--- NOTE | 2023-05-31 10:10 | Cardiology Consultation ---
Date of Consultation May 31, 2023 Assessment & Plan (1) Sepsis: (2) Elevated troponin: (3) HFrEF (heart failure with reduced ejection fraction): (4) Aortic stenosis: (5) S/P TAVR (transcatheter aortic valve replacement): (6) Tachy-brown syndrome: (7) Pacemaker: (8) CAD (coronary artery disease): Plan IMPRESSION: -Medically complex acutely ill 73-year-old female initially presented to [facility] emergency department on 05/28/2023 due to 2 days worth of nausea, vomiting, and diarrhea. Found to be uroseptic with a partially obstructive left kidney stone. Urology was consulted and she ultimately underwent a high risk complex cystoscopy with left ureteral dilation, left ureteral stent placement as well as right ureteral stent exchange on 05/30/[address] Johansen. -Known CKD with acute kidney injury this admission-- nephrology on board. Diuretics currently on hold. -Elevated HS troponins: 52.5>>62.5>>449.8 PLAN: Elevated HS Troponin: Elevated troponin in the setting of acute illness, urosepsis, post complex cystoscopy, ALONA, and acute on chronic HFrEF. Patient does has known coronary disease with a PCI to the mid LAD 03/2022, but is currently chest pain free. EKG without ischemic changes. 1. Elevated troponin likely due to above reasons/acute illness- patient would be high risk for any further invasive workup. In the absence of symptoms and EKG without ischemic changes low likelihood for ACS. Will medically manage. 2. Patient appears hypervolemic on exam-- diuretics on hold per nephrology. Appreciate recommendations on restarting of diuretic therapy. Urosepsis: Antibiotics per primary team. 1. Following blood cultures-- pending Case discussed with Dr. Donovan-- further recommendations pending his assessment. I spent a total of 40 minutes on the date of service in preparation, delivery, and documentation of the care provided to the patient excluding any time spent in the performance of separately billed services. RENITA Granger Department of Cardiology, [facility] This chart was completed in part utilizing Speech Voice Recognition Software. Grammatical errors, random word insertions, pronoun errors, and incomplete sentences are an occasional consequence of this system due to software limitations, ambient noise, and hardware issues. Any formal questions or concerns about the content, text, or information contained within the body of this dictation should be directly addressed to the provider for clarification. Supervising Physician Co-Signing Physician Notes Attending attestation: Case reviewed with the advanced practitioner. I have personally performed a history and physical examination on the patient. I have reviewed the advanced practitioner's documentation on the date of service referenced in note, and I agree with, and take responsibility for the plan of care. Subjective: Patient with cough that she states was present prior to admission but worse now, sounds like a wet cough. Subjective chest pressure to mild degree with deep inspiration Exam: Cardiovascular: Regular rate, 1/6 systolic murmur, trace lower extremity edema Pulmonary: Decreased breath sounds bilaterally at the bases, wet cough Data: EKG performed 05/31/2023 at 8:08 AM revealed sinus rhythm with first-degree AV block at 263 ms. Telemetry reveals sinus rhythm with occasional atrial pacing, long AV delay WBC count 15.2 Creatinine 2.84, albumin 2.88 on 05/30/2023, and 1.27 on 03/31/2023 Assessment and Plan: Sepsis, urinary source Respiratory panel performed 05/31/2023 notable for RSV 1/2 blood cultures obtained on presentation 05/28/2023 notable for gram-positive cocci in clusters, urine culture negative thus far, repeat blood cultures negative ALONA with history of severe left ventricular systolic dysfunction, clinically, moderate volume overload suggested -Supportive care as indicated for RSV -Nephrology input noted and appreciated, proceed with trial of IV Bumex 2 mg IV 3 times daily -Continue ertapenem for UTI -Continue dual antiplatelet therapy with aspirin and clopidogrel given TAVR and LAD stent -Continue metoprolol 62.5 mg twice daily, atorvastatin 40 mg daily DVT prophylaxis: Consider adding pharmacologic DVT prophylaxis I spent a total of 25 minutes on the date of service in preparation, delivery, and documentation of the care provided to this patient, excluding any time spent in the performance of separately billed services. Luigi Donovan DO History of Present Illness Reason for Consultation: Elevated troponin Requesting Physician: Krupa bui Attending Physician: Tamra Madrid MD History of Present Illness Medically complex acutely ill 73-year-old female initially presented to [facility] emergency department on 05/28/2023 due to 2 days worth of nausea, vomiting, and diarrhea. Found to be uroseptic with a partially obstructive left kidney stone. Urology was consulted and she ultimately underwent a high risk complex cyst oscopy with left ureteral dilation, left ureteral stent placement as well as right ureteral stent exchange on 05/30/[address] Johansen. Patient also has known kidney disease and follows with nephrology. She was found to have an ALONA on inpatient blood work with her creatinine increasing to 2.9 (baseline of 1.2). Diuretics on hold per nephrology. Cardiology consulted due to abnormal high-sensitivity troponin levels. On previous evaluations, troponin levels have averaged between 120s to 140s. On admission high-sensitivity troponin was 52.5>>62.5. Repeated this morning and was found to be elevated at 449.8 pg/ml. Upon entrance into the room patient sitting up in bed. Appears acutely ill. No distress. Notes ongoing nausea and dry heaving. Denies chest pain or shortness of breath. Does have a moist productive cough. Lungs are coarse. Mild lower extremity pedal edema. Problem List: 1. Low flow/low gradient severe aortic stenosis, s/p TAVR (# 26 mm Fisher Berhane S3 Ultra valve) on 12/09/2022 2. Systolic and diastolic congestive heart failure. LVEF 30% in December 2022. Upgrade to an ICD not felt to be indicated when evaluated by EP in October 2022. 3. Chest discomfort leading to abnormal nuclear stress testing in March 2023, cardiac catheterization on 03/22/2022 revealing a 70% mid LAD stenosis status post PCI with a 3 x 20 mm Synergy drug eluting stent with excellent angiographic results, mild luminal irregularities elsewhere 4. Tachy-Brown Syndrome s/p dual chamber Medtronic ppm, 12/29/2021 5. Paroxysmal atrial fibrillation/flutter 6. [id number] Score is 8 points. 7. Anticoagulation risk felt to be greater than the benefit given microscopic hematuria, frequent urological procedures, hemorrhoidal bleeding, AVMs, thrombocytopenia, liver cancer, ambulatory dysfunction, blindness 8. Carotid artery disease with moderate right internal carotid artery stenosis, mild left internal carotid artery stenosis 9. Diabetes mellitus 10. Chronic kidney disease Allergies Allergy/AdvReac Type Severity Reaction Status Date / Time cephalexin Allergy Severe Anaphylaxis Verified 05/29/23 02:41 Cephalosporins Allergy Severe Anaphylaxis Verified 05/29/23 02:41 Sulfa (Sulfonamide Allergy Intermediate Hives Verified 05/29/23 02:41 Antibiotics) sulfamethoxazole Allergy Intermediate Hives Verified 05/29/23 02:41 [From Bactrim] trimethoprim [From Bactrim] Allergy Intermediate Hives Verified 05/29/23 02:41 butorphanol AdvReac Intermediate Rapid heart Verified 05/29/23 02:41 ciprofloxacin AdvReac Intermediate Nausea Verified 05/29/23 02:41 Home Medications Medication Instructions Recorded Confirmed Type aspirin 81 mg chewable tablet 81 mg PO QAM 11/02/18 05/29/23 History (Aspirin Childrens) atorvastatin 40 mg tablet 40 mg PO HS 11/02/18 05/29/23 History erythromycin 5 mg/gram (0.5 %) eye 1 applic OPB QID 11/02/18 05/29/23 History ointment folic acid 1 mg tablet 1 mg PO QAM 11/02/18 05/29/23 History hydroxychloroquine 200 mg tablet 400 mg PO HS 11/02/18 05/29/23 History (Plaquenil) levothyroxine 125 mcg tablet 125 mcg PO DAILYBB 11/02/18 05/29/23 History lorazepam 0.5 mg tablet 0.5 mg PO TID PRN Anxiety 11/02/18 05/29/23 History multivitamin with iron 1 tab PO QAM 11/02/18 05/29/23 History prednisone 5 mg tablet 5 mg PO QAM 11/02/18 05/29/23 History cyanocobalamin (vitamin B-12) 1,500 mcg PO QPM 10/20/19 05/29/23 History 1,000 mcg tablet (Vitamin B-12) hydrocodone 5 mg-acetaminophen 325 1 tab PO Q6H PRN Pain,mild 03/26/21 05/29/23 History mg tablet magnesium oxide 400 mg (241.3 mg 400 mg PO QAM 08/30/21 05/29/23 History magnesium) tablet netarsudil 0.02 % eye drops 1 drp OPL HS 08/30/21 05/29/23 History (Rhopressa) methotrexate sodium 2.5 mg tablet 10 mg PO WK 02/11/22 05/29/23 History clopidogrel 75 mg tablet (Plavix) 75 mg PO QAM 04/08/22 05/29/23 History insulin glargine 100 unit/mL 33 unit subcut QA 08/19/22 05/29/23 History subcutaneous solution (Lantus U-100 Insulin) acetaminophen 500 mg tablet 500 mg PO HS 11/05/22 05/29/23 History (Tylenol Extra Strength) nystatin 100,000 unit/gram topical 1 applic topical TID PRN SKIN 11/05/22 05/29/23 History powder IRRITATION UNDER BREASTS spironolactone 25 mg tablet 25 mg PO QAM 11/05/22 05/29/23 History latanoprost 0.005 % eye drops 1 drp OPB PM 12/18/22 05/29/23 History metoprolol succinate 25 mg 12.5 mg PO BID 12/18/22 05/29/23 History tablet,extended release 24 hr torsemide 100 mg tablet 100 mg PO QAM 12/18/22 05/29/23 History ferrous sulfate 325 mg (65 mg 325 mg PO QDL 01/26/23 05/29/23 History iron) tablet,delayed release potassium chloride 20 mEq 20 meq PO BID 01/26/23 05/29/23 History tablet,extended release ascorbic acid (vitamin C) 500 mg 500 mg PO DAILY 05/29/23 05/29/23 History tablet (Vitamin C) betaxolol 0.5 % eye drops 1 drp OPL [facility] 05/29/23 05/29/23 History gabapentin 300 mg capsule 300 mg PO [facility] 05/29/23 05/29/23 History netarsudil 0.02 % eye drops 1 drp OPL HS 05/29/23 05/29/23 History (Rhopressa) pantoprazole 40 mg tablet,delayed 40 mg PO DAILY 05/29/23 05/29/23 History release sertraline 25 mg tablet 25 mg PO DAILY 05/29/23 05/29/23 History Patient History Medical History (Updated 05/31/23 @ 10:48 by RENITA Cortez) CAD (coronary artery disease) s/p PCI with WALTER to mid LAD 03/22/22 (mild luminal irregularities elsewhere) History of blood transfusion 1980s Morbid obesity with BMI of 40.0-44.9, adult On anticoagulant therapy plavix daily History of COVID-19 diagnosed end of 05/2022 via home test--cough, body aches, sore throat, nausea, runny nose--no symptoms now Edema of both legs current issue--has perez wraps around both legs 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 LICA less than 50% stenosis. Aortic stenosis S/p TAVR 12/09/22 Blindness Left eye (since ), right eye sown shut "from the inside"; legally blind Pancreatic lesion 1.1 cm stable small cystic lesion in body of pancreas per 01/21/[address] Ischemic cardiomyopathy EF 25-29% 01/2023 echo Diabetic retinopathy History of atrial fibrillation Single, brief episode (2017) PAF/flutter per cardio records- [id number] score of 3- No AC due to bleeding risk (chronic microscopic hematuria with frequent urological procedures, hemorrhoids, AVMs, thrombocytopenia, liver cancer, etc.) Hypertension Kidney stones hx Liver cancer Stage 1, s/p embolization (injection black poppyseed oil twice) under surveillance by [facility] heme/onc - had radiation seeds placed 10/18/22 Diabetic neuropathy Chronic back pain Chronic kidney disease, stage 3 follows with [facility] nephrology Hernia Current Pancreatitis Mutliple, 15+ episodes (no current issues) History of gastric ulcer Hypothyroidism Diabetes mellitus, type 2 IDDM History of cancer 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 TIA vs CVA x2 (20+ years ago), no deficits Migraine Hx years ago Hyperlipidemia Congestive heart failure EF 25-29% on 01/2023 echo Myocardial Infarction Remote silent IL (10+ years ago) Sleep apnea CPAP History of sinus problem Reason for nebulizer and inhalers prn Surgical History (Updated 05/31/23 @ 10:36 by RENITA Cortez) S/P TAVR (transcatheter aortic valve replacement) December 2022 at [facility]. mechanical valve. follows with [facility]. S/P cardiac cath [facility] 03/2022 History of cardiac cath 03/22/22 > 1 stent drug eluting> [place] > see report in records Status post laser lithotripsy of ureteral calculus x3 -> November 2019, December 2019, August 2020 History of ERCP History of cystoscopy --multiple-- Cystoscopy, right stent, right laser lithotripsy (08/11/2020): LMA 4.0 unique, atraumatic, LMA attempt x1 at [facility]. No issues per postop anesthesia progress note. History of liver biopsy X 2 Nausea and vomiting after administration of anesthetic agent History of dilatation and curettage x3 S/P foot surgery, left "stepped on a needle and had to have it removed" History of carpal tunnel release of both wrists History of lumbar discectomy History of biopsy of bladder showed chronic cystitis History of total hysterectomy with bilateral salpingo-oophorectomy (BSO) History of appendectomy History of cholecystectomy History of colonoscopy History of esophagogastroduodenoscopy (EGD) History of tooth extraction all top teeth, most of bottom History of partial thyroidectomy right side and ismis removed d/t papillary cancer History of tarsorrhaphy BILT--right eye closed shut, left eye partly closed History of bilateral cataract extraction History of detached retina repair x4 on right eye; sx to sew right eye shut in 2017 Family History Father Family history of diabetes mellitus Family history of reaction to anesthesia difficulty waking Mother Family history of diabetes mellitus Sister Family history of diabetes mellitus Brother Family history of diabetes mellitus Grandmother (Maternal) Family history of diabetes mellitus Grandmother (Paternal) Family history of diabetes mellitus Son Family history of diabetes mellitus Social History Smoking Status: Never smoker Second Hand Exposure: No; Do You Dip or Chew Tobacco: No; Hx Alcohol Use: No Hx Substance Use: No Preferred Language: Brazilian Communication Ability: Effective Communication Ability Comment: blind Communication Tools: Other Visual Impairment: Blindness Hearing Ability: Normal 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: Voice Beliefs That Will Affect Care: None marital status: Current Living Situation: Alone current occupational status: disabled Feels Safe at Home: Yes Diet: diabetic, low carbohydrate and low salt Diet Comment: low fat caffeine: Yes during the past year weight has: remained stable Do you think of yourself as: straight/heterosexual Gender Identity: Female Assistive Devices: CPAP and Other Review of Systems Review of Systems: All systems reviewed & are unremarkable except as noted in HPI & below Physical Exam Constitutional: + ill appearing Neck: normal visual inspection and trachea midline Respiratory: normal respiratory effort and + cough (moist productive); no respiratory distress Auscultation: + rales, + rhonchi and + wheezes Cardiovascular: Rate/Rhythm: regular rate and regular rhythm Heart Sounds: normal S1, normal S2 and + murmur (diminished heart sounds ) Vessels: + JVD (difficult to assess ) Extremities: + pedal edema (Trace BL) Chest (Breasts): Chest: + pacemaker Gastrointestinal (Abdomen): normal bowel sounds, soft, nontender, no hepatosplenomegaly Psychiatric: Orientation: alert and oriented x 3 Results & Data Vital Signs (Past 12 Hours) Vital Signs Temp Pulse Pulse Resp BP Pulse Ox O2 Del Method 05/31/23 07:40 36.3 C L 63 16 113/60 97 Room Air 05/31/23 04:03 36.3 C L 63 18 96/61 L 95 Room Air 05/30/23 23:14 35.7 C L 69 18 117/69 96 Room Air 05/30/23 22:34 58 L Laboratory Results Cardiac Enzymes 05/31/23 Range/Units 05:52 AST 172 H (13-39) U/L Troponin I High Sens 449.8 H* (0-14) pg/ml CBC 05/31/23 Range/Units 05:52 WBC 15.21 H (4.8-10.8) K/ul RBC 3.50 L (4.20-5.40) M/uL Hgb 10.1 L (12.0-16.0) g/dl Hct 31.6 L (37.0-47.0) % Plt Count 66 L (130-400) K/uL Comprehensive Metabolic Panel 05/31/23 Range/Units 05:52 Sodium 132 L (136-145) mmol/L Potassium 5.0 (3.5-5.1) mmol/L Chloride 101 (98-107) mmol/L Carbon Dioxide 20 L (21-32) mmol/L BUN 89 H (6-23) mg/dl Creatinine 2.84 H (0.6-1.2) mg/dl Glucose 100 H (70-99(Fasting)) mg/dl Calcium 8.2 L (8.6-10.3) mg/dl AST 172 H (13-39) U/L ALT 179 H (7-52) U/L Alkaline Phosphatase 172 H (34-104) U/L Total Protein 5.3 L (6.0-8.3) gm/dl Albumin 3.0 L (3.4-5.0) gm/dl Intake and Output 05/30/23 05/31/23 05/31/23 22:59 06:59 14:59 Intake Total 200 / 650 Output Total 300 / 521 150 / 521 Balance -100 / 129 -150 / 129 Intake: Oral 200 / 200 Output: Urine Amount (Catheter) 300 / 450 150 / 450 Red/Indwelling 300 / 450 150 / 450 Other: Other Intake Source Sips Weight 106.6 kg Weight Measurement Method Built in [facility] (1) Sepsis Sepsis acute organ dysfunction status: unspecified Sepsis type: sepsis due to unspecified organism Qualified Code(s): A41.9 - Sepsis, unspecified organism (4) Aortic stenosis Cardiac valve disease etiology: nonrheumatic Qualified Code(s): I35.0 - Nonrheumatic aortic (valve) stenosis
--- NOTE | 2023-05-31 11:12 | Electrocardiogram Report ---
Test Reason : Blood Pressure : / mmHG Vent. Rate : 063 BPM Atrial Rate : 063 BPM P-R Int : 236 ms QRS Dur : 154 ms QT Int : 478 ms P-R-T Axes : 068 -59 095 degrees QTc Int : 489 ms Sinus rhythm with 1st degree A-V block Left anterior fascicular block Right bundle branch block Abnormal ECG When compared with ECG of 28-MAY-2023 21:13, Sinus rhythm has replaced Electronic atrial pacemaker Confirmed by Bhanu Morley ([id number]) on 05/31/2023 11:11:59 AM Referred By: REFERRED SELF Confirmed By:Alfonso Morley
[2023-05-31 11:51] LABS: Adenovirus PCR Not Detected (NotDetected); Bordetella parapertussis PCR Not Detected (NotDetected); Bordetella pertussis PCR Not Detected (NotDetected); Chlamydia pneumoniae PCR Not Detected (NotDetected); Coronavirus 229E PCR Not Detected (NotDetected); Coronavirus CoV-2 (COVID19)PCR Not Detected (NotDetected); Coronavirus HKU1 PCR Not Detected (NotDetected); Coronavirus NL63 PCR Not Detected (NotDetected); Coronavirus OC43PCR Not Detected (NotDetected); Human Metapneumovirus PCR Not Detected (NotDetected); Influenza A PCR Not Detected (NotDetected); Influenza B PCR Not Detected (NotDetected); Mycoplasma pneumoniae PCR Not Detected (NotDetected); Parainfluenza Virus 1 PCR Not Detected (NotDetected); Parainfluenza Virus 2 PCR Not Detected (NotDetected); Parainfluenza Virus 3 PCR Not Detected (NotDetected); Parainfluenza Virus 4 PCR Not Detected (NotDetected); Respiratory Syncytial VirusPCR DETECTED (NotDetected); Rhinovirus/Enterovirus PCR Not Detected (NotDetected)
[2023-05-31] MEDS: BUMETANIDE 2 MG in SYRINGE 0 ML IV ONE ×2 (12:28→15:42)
--- NOTE | 2023-05-31 12:28 | Hospitalist Progress Note ---
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 Initial lactic acid is 3 and repeat is 2.3 S/p Cystoscopy with bilateral retrograde pyelogram, left ureteral dilation, Left Ureteral Stent Placement, Right Ureteral Stent Exchange by Urology POD 1 Blood culture growing GPC in one bottle out of 4 so far Possible contaminant Follow up results Initial Urine culture is contaminated Repeat Urine culture in lab Previous UTI urine culture grew ESBL Proteus Currently on IV ertapenem, renally dosed History of CAD s/p stent History of systolic and diastolic CHF EF 25 to 29% on echo in January 2023 Trop was elevated on admission. Increased today, Possible demand ischemia; likely worse due to worsened renal function in a patient with known systolic heart failure Currently chest pain free However, considering patient's cardiomyopathy and vol overload, Cardiology was consulted Reviewed old TTE from 01/31 Cards recs noted On aspirin, Plavix and statin and metoprolol ALONA on CKD stage III Presented with creatinine 1.8 Baseline creatinine around 1 Holding diuretics Cr peaked at 2.88 prior to procedure Cr is 2.84 today Discussed with Event Mgr Resumed diuretics. Nephro started Bumex PAF Tachybradycardia syndrome S/p pacemaker On Metoprolol Not on anticoagulation due to GI bleed History of TIA On aspirin and Plavix and statin Obstructive sleep apnea On CPAP nightly History of rheumatoid arthritis Continue Plaquenil and prednisone 5 mg daily if need will place on stress dose steroids. Hypothyroidism On Synthyroid Diabetes Continue insulin/Sliding scale Monitor History of hepatocellular carcinoma Status post embolization Currently following with heme-onc Thrombocytopenia Chronic Will monitor Severe aortic S/p TAVR Resp PCR +RSV On room air Supportive care DVT prophylaxis: Hep sq CODE STATUS full code I spent a total of 55 minutes coordinating, documenting and providing care for this patient excluding time spent in performance of separately billed services Admission and Anticipated Discharge Date Admission Date: May 29, 2023 Subjective Patient seen and examined Reports upper abd pains Reports nausea. Reports cough Denied chest pain or SOB at rest. Reports chronic PATRICK Denied fever, chills Patient is blind Physical Exam Constitutional: + well hydrated and + obese; no acute di stress Eyes: Blind ENMT: external ear and nose normal, oropharynx normal Respiratory: normal respiratory effort; no respiratory distress +Rhonchi Cardiovascular: Rate/Rhythm: regular rate and regular rhythm S1 S2 Gastrointestinal (Abdomen): normal bowel sounds, soft, nontender, no hepatosplenomegaly Musculoskeletal: B/l pitting pedal edema Neurologic: Patient is blind. No focal neurological deficits Psychiatric: A+Ox3, euthymic affect Results & Data Results & Data Vital Signs (Past 12 Hours) Vital Signs Temp Pulse Pulse Resp BP Pulse Ox O2 Del Method 05/31/23 11:39 36.4 C L 118 H 16 108/58 L 100 Room Air 05/31/23 08:00 60 05/31/23 07:40 36.3 C L 63 16 113/60 97 Room Air 05/31/23 07:30 Room Air 05/31/23 04:03 36.3 C L 63 18 96/61 L 95 Room Air Laboratory Results Abnormal lab results 05/30/23 05/30/23 05/30/23 Range/Units 17:22 21:22 23:34 WBC (4.8-10.8) K/ul RBC (4.20-5.40) M/uL Hgb (12.0-16.0) g/dl Hct (37.0-47.0) % RDW Std Deviation (36.4-46.3) fL RDW Coeff of Juani (11.5-14.5) % Plt Count (130-400) K/uL Sodium (136-145) mmol/L Carbon Dioxide (21-32) mmol/L BUN (6-23) mg/dl Creatinine (0.6-1.2) mg/dl BUN/Creatinine Ratio (10-20) Glucose (70-99(Fasting)) mg/dl POC Glucose 152 H 144 H 121 H (70-99) mg/dl Calcium (8.6-10.3) mg/dl Phosphorus (2.5-4.9) mg/dl Total Bilirubin (0.2-1.0) mg/dl AST (13-39) U/L ALT (7-52) U/L Alkaline Phosphatase (34-104) U/L Troponin I High Sens (0-14) pg/ml Total Protein (6.0-8.3) gm/dl Albumin (3.4-5.0) gm/dl Globulin (2.5-4.0) gm/dl RSV (PCR) (NotDetected) 05/31/23 05/31/23 05/31/23 Range/Units 05:52 08:20 10:03 WBC 15.21 H (4.8-10.8) K/ul RBC 3.50 L (4.20-5.40) M/uL Hgb 10.1 L (12.0-16.0) g/dl Hct 31.6 L (37.0-47.0) % RDW Std Deviation 65.8 H (36.4-46.3) fL RDW Coeff of Juani 20.5 H (11.5-14.5) % Plt Count 66 L (130-400) K/uL Sodium 132 L (136-145) mmol/L Carbon Dioxide 20 L (21-32) mmol/L BUN 89 H (6-23) mg/dl Creatinine 2.84 H (0.6-1.2) mg/dl BUN/Creatinine Ratio 31.3 H (10-20) Glucose 100 H (70-99(Fasting)) mg/dl POC Glucose 122 H (70-99) mg/dl Calcium 8.2 L (8.6-10.3) mg/dl Phosphorus 5.6 H (2.5-4.9) mg/dl Total Bilirubin 1.1 H (0.2-1.0) mg/dl AST 172 H (13-39) U/L ALT 179 H (7-52) U/L Alkaline Phosphatase 172 H (34-104) U/L Troponin I High Sens 449.8 H* 429.3 H* (0-14) pg/ml Total Protein 5.3 L (6.0-8.3) gm/dl Albumin 3.0 L (3.4-5.0) gm/dl Globulin 2.3 L (2.5-4.0) gm/dl RSV (PCR) (NotDetected) 05/31/23 05/31/23 Range/Units 10:30 11:59 WBC (4.8-10.8) K/ul RBC (4.20-5.40) M/uL Hgb (12.0-16.0) g/dl Hct (37.0-47.0) % RDW Std Deviation (36.4-46.3) fL RDW Coeff of Juani (11.5-14.5) % Plt Count (130-400) K/uL Sodium (136-145) mmol/L Carbon Dioxide (21-32) mmol/L BUN (6-23) mg/dl Creatinine (0.6-1.2) mg/dl BUN/Creatinine Ratio (10-20) Glucose (70-99(Fasting)) mg/dl POC Glucose 151 H (70-99) mg/dl Calcium (8.6-10.3) mg/dl Phosphorus (2.5-4.9) mg/dl Total Bilirubin (0.2-1.0) mg/dl AST (13-39) U/L ALT (7-52) U/L Alkaline Phosphatase (34-104) U/L Troponin I High Sens (0-14) pg/ml Total Protein (6.0-8.3) gm/dl Albumin (3.4-5.0) gm/dl Globulin (2.5-4.0) gm/dl RSV (PCR) DETECTED A (NotDetected) (1) Sepsis Sepsis acute organ dysfunction status: unspecified Sepsis type: sepsis due to unspecified organism Qualified Code(s): A41.9 - Sepsis, unspecified organism
--- NOTE | 2023-05-31 15:24 | Urology Progress Note ---
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 CT abd noted partially obstructing stone in the left renal pelvis measuring 8 mm, atrophy of right kidney with the right-sided ureteral stent, bilateral renal cysts. POD #1 s/p Cystoscopy with bilateral retrograde pyelogram, left ureteral dilation, Left Ureteral Stent Placement, Right Ureteral Stent Exchange Afebrile, normotensive, tachycardic. Labs reviewed Leukocytosis downtrending 16.99-16.14-15.21 and creatinine 2.16-2.88-2.84 today. Urine culture with more than 3 types of organisms, all high counts. Repeat pending. Blood culture / prelim gram positive cocci clusters, repeat BCx prelim no growth x 24 hours. No further intervention warranted. Continue supportive care. Continue antibiotics and tailor as culture data becomes available. Maintain Red catheter. Will arrange outpatient follow-up with our service for continued care and stent management. Urology will follow peripherally. Please call with any further questions or concerns. Admission and Anticipated Discharge Date Admission Date: May 29, 2023 Subjective Pt examined at bedside today. Awake, resting in bed on arrival. No acute distress. On isolation for RSV. Red draining dark yellow urine. No fevers. Review of Systems Constitutional: as per Subjective / HPI Genitourinary: as per Subjective / HPI Physical Exam Constitutional: + morbidly obese; no acute distress Respiratory: no respiratory distress and no labored breathing Musculoskeletal: Head/Neck/Chest: normocephalic Neurologic: awake Psychiatric: Orientation: alert and oriented x 3 Genitourinary: Red intact Results & Data Vital Signs (Past 12 Hours) Vital Signs Temp Pulse Pulse Resp BP Pulse Ox O2 Del Method 05/31/23 11:39 36.4 C L 118 H 16 108/58 L 100 Room Air 05/31/23 08:00 60 05/31/23 07:40 36.3 C L 63 16 113/60 97 Room Air 05/31/23 07:30 Room Air 05/31/23 04:03 36.3 C L 63 18 96/61 L 95 Room Air PG Care Time/CCT Total # of Minutes Spent Total Time Spent with Patient: Total time spent is greater than 50% in coordination of care (as documented) at patient's floor/unit and/or counseling patient: Coding Level of Care Code 93797 SUB INP/OBS CARE 2/35MIN Diagnoses UTI (urinary tract infection) N10 Urinary tract infection type: acute pyelonephritis Sepsis A41.9 Sepsis acute organ dysfunction status: unspecified Sepsis type: sepsis due to unspecified organism Kidney stones N20.0 (1) UTI (urinary tract infection) Urinary tract infection type: acute pyelonephritis Qualified Code(s): N10 - Acute pyelonephritis (2) Sepsis Sepsis acute organ dysfunction status: unspecified Sepsis type: sepsis due to unspecified organism Qualified Code(s): A41.9 - Sepsis, unspecified organism
[2023-05-31] MEDS: BENZONATATE 100 MG CAPSULE PO STA (15:42)
[2023-05-31] MEDS: HEPARIN SOD 5,000 UNIT/0.5 ML VIAL SQ SCH (16:16)
[2023-05-31 17:53] LABS: A calco-baum cmplx NotReported Not Detected (NotDetected); Bact fragilis Not Reported Not Detected (NotDetected); Blood Culture Id Panel See PCR Comment (NotDetected); C auris Not Reported Not Detected (NotDetected); Calbicans Not Reported DETECTED (NotDetected); Candida glabrata Not Reported Not Detected (NotDetected); Candida krusei Not Reported Not Detected (NotDetected); Cneoformans/gatti Not Reported Not Detected (NotDetected); Cparapsilosis Not Reported Not Detected (NotDetected); E cloacae compx Not Reported Not Detected (NotDetected); Efaecalis Not Reported Not Detected (NotDetected); Efaecium Not Reported Not Detected (NotDetected); Enterobacterales Not Reported Not Detected (NotDetected); Escherichia coli Not Reported Not Detected (NotDetected); H influenzae Not Reported Not Detected (NotDetected); K aerogenes Not Reported Not Detected (NotDetected); Koxytoca Not Reported Not Detected (NotDetected); Kpneumoniae grp Not Reported Not Detected (NotDetected); Lmonocyt Not Reported Not Detected (NotDetected); N meningitidis Not Reported Not Detected (NotDetected); P aeruginosa Not Reported Not Detected (NotDetected); Proteus spp Not Reported Not Detected (NotDetected); Salmonella spp Not Reported Not Detected (NotDetected); Smarcescens Not Reported Not Detected (NotDetected); Staph lugdunensis Not Reported Not Detected (NotDetected); Staph spp. Not Reported Not Detected (NotDetected); Staphaureus Not Reported Not Detected (NotDetected); Staphepi Not Reported Not Detected (NotDetected); Stenmaltophilia Not Reported Not Detected (NotDetected); Strep agal(GrpB) Not Reported Not Detected (NotDetected); Strep pneum Not Reported Not Detected (NotDetected); Strep pyog (GrpA) Not Reported Not Detected (NotDetected); Strep spp Not Reported Not Detected (NotDetected)
[2023-05-31 17:59] LABS: Candida albicans DETECTED (NotDetected)
[2023-05-31] MEDS ORDERED: FLUCONAZOLE 200 MG/100 ML BAG IV SCH (18:30)
[2023-05-31] MEDS: CASPOFUNGIN 70 MG in SODIUM CHLORIDE 0.9% 250 ML IV SCH (19:39)
[2023-05-31] MEDS: BUMETANIDE 2 MG in SYRINGE 0 ML IV SCH (21:06)
[2023-06-01 07:02] LABS: Hematocrit (blood only) 33.3 % (37.0-47.0); Hemoglobin 10.4 g/dl (12.0-16.0); Mean Corpuscular Hemoglobin 28.3 pg (25.0-34.0); Mean Corpuscular Hgb Conc 31.2 g/dL (32.0-36.0); Mean Corpuscular Volume 90.7 fL (80.0-100.0); Mean Platelet Volume 12.6 fL (9.4-12.4); Nucleated RBC # (auto) 0.02 K/uL (0.00-0.12); Nucleated RBC % (auto) 0.1 %; Platelet Count 67 K/uL (130-400); RDW Coefficient of Variation 20.5 % (11.5-14.5); RDW Standard Deviation 65.6 fL (36.4-46.3); Red Blood Count 3.67 M/uL (4.20-5.40); White Blood Count 14.63 K/ul (4.8-10.8)
--- NOTE | 2023-06-01 07:07 | Cardiology Progress Note ---
Date of Service June 01, 2023 Assessment & Plan (1) Sepsis: (2) Elevated troponin: (3) HFrEF (heart failure with reduced ejection fraction): (4) Aortic stenosis: (5) S/P TAVR (transcatheter aortic valve replacement): (6) Tachy-wilfrido syndrome: (7) Pacemaker: (8) CAD (coronary artery disease): (9) RSV (respiratory syncytial virus infection): Plan IMPRESSION: -Medically complex acutely ill 73-year-old female initially presented to [facility] emergency department on 05/28/2023 due to 2 days worth of nausea, vomiting, and diarrhea. Found to be uroseptic with a partially obstructive left kidney stone. Urology was consulted and she ultimately underwent a high risk complex cystoscopy with left ureteral dilation, left ureteral stent placement as well as right ureteral stent exchange on 05/30/[address] Johansen. -Known CKD with acute kidney injury this admission-- nephrology on board. Diuretics currently on hold. -Elevated HS troponin levels: 52.5>>62.5>>449.8>>429.3 pg/ml PLAN: Elevated HS Troponin: Elevated troponin in the setting of acute illness, urosepsis, post complex cystoscopy, ALONA, and acute on chronic HFrEF. Patient does has known coronary disease with a PCI to the mid LAD 03/2022, but is currently chest pain free. EKG without ischemic changes. 1. Elevated troponin likely due to above reasons/acute illness- patient would be high risk for any further invasive workup. In the absence of symptoms and EKG without ischemic changes low likelihood for ACS. Will medically manage. Urosepsis: Antibiotics per primary team. 1. Following blood cultures-- pending RSV: 1. Supportive measures per hospitalist team. Acute on Chronic HFrEF: Chronic systolic CHF, hypervolemic on exam. Diuretics previously on hold due to ALONA. 1. Patient appears hypervolemic on exam-- diuretics restarted per nephrology. Renal function slightly improved. 2. Bumex 2mg IV TID started by nephrology 05/31/2023-- appreciate assistance. Case discussed with Dr. Donovan-- further recommendations pending his assessment. I spent a total of 30 minutes on the date of service in preparation, delivery, and documentation of the care provided to the patient excluding any time spent in the performance of separately billed services. RENITA Granger Department of Cardiology, [facility] This chart was completed in part utilizing Speech Voice Recognition Software. Grammatical errors, random word insertions, pronoun errors, and incomplete sentences are an occasional consequence of this system due to software limitations, ambient noise, and hardware issues. Any formal questions or concerns about the content, text, or information contained within the body of this dictation should be directly addressed to the provider for clarification. Admission and Anticipated Discharge Date Admission Date: May 29, 2023 Supervising Physician Co-Signing Physician Notes Attending attestation: Case reviewed with the advanced practitioner. I have personally performed a history and physical examination on the patient. I have reviewed the advanced practitioner's documentation on the date of service referenced in note, and I agree with, and take responsibility for the plan of care. Subjective: Patient 's cough is perhaps a little improved. Denies chest pain Exam: General: ill in appearance Cardiovascular: Regular rate, 1/6 systolic murmur, trace lower extremity edema Pulmonary: Decreased breath sounds bilaterally at the bases Data: EKG performed 05/31/2023 at 8:08 AM revealed sinus rhythm with first-degree AV block at 263 ms. Telemetry reveals sinus rhythm with occasional atrial pacing, long AV delay 1 of 4 blood cultures with gram positive cocci in clusters- likely contaminant 2 of 4 blood cultures with yeast UA 05/30/23: deshaun albicans / dubliniensis Assessment and Plan: Sepsis, urinary source Fungemia Respiratory panel performed 05/31/2023 notable for RSV Acute on chronic heart failure with reduced ejection fraction ALONA with history of severe left ventricular systolic dysfunction, clinically, moderate volume overload suggested h/o dual chamber pacemaker, 2021, TAVR 11/2022 -Supportive care as indicated for RSV -Nephrology input noted and appreciated, proceed with trial of IV Bumex 2 mg IV 3 times daily -Continue dual antiplatelet therapy with aspirin and clopidogrel given TAVR and LAD stent- monitor platelet count -Continue metoprolol 62.5 mg twice daily, atorvastatin 40 mg daily -ID input noted and appreciated, pt on ertapenem and now caspofungin -Proceed with transthoracic echocardiogram. At present she is not a candidate for CONSTANTINE given respiratory status with CHF and RSV. DVT prophylaxis: SQ heparin I spent a total of 25 minutes on the date of service in preparation, delivery, and documentation of the care provided to this patient, excluding any time spent in the performance of separately billed services. Luigi Donovan, DO Subjective Medically complex acutely ill 73-year-old female initially presented to [facility] emergency department on 05/28/2023 due to 2 days worth of nausea, vomiting, and diarrhea. Found to be uroseptic with a partially obstructive left kidney stone. Urology was consulted and she ultimately underwent a high risk complex cystoscopy with left ureteral dilation, left ureteral stent placement as well as right ureteral stent exchange on 05/30/[address] Johansen. Known CKD with acute kidney injury this admission. 05/31: Cough since admission with chest pressure with deep inspiration, +RSV. Hypervolemic on exam, Bumex started per nephrology (2mg TID) Elevated HS troponin-- deemed multifactorial due to cute illness, urosepsis, post complex cystoscopy, ALONA, and acute on chronic HFrEF. 06/01: Tele: Paced 60s I&O: +1L Weight: 106.9 kg >>106.6 kg ? accuracy Upon entrance into the room patient resting in bed. More forgetful this morning. Easily reoriented. Feels worse this am. Feels weak and tired. No chest pain. Mild dyspnea. Increased lower extremity edema and orthopnea. Review of Systems Review of Systems: All systems reviewed & are unremarkable except as noted in HPI & below Physical Exam Constitutional: + ill appearing; no acute distress Neck: normal visual inspection and trachea midline Respiratory: normal respiratory effort and + cough (moist productive); no respiratory distress Auscultation: + rales, + rhonchi and + wheezes Cardiovascular: Rate/Rhythm: regular rate and regular rhythm Heart Sounds: normal S1, normal S2 and + murmur (diminished heart sounds ) Vessels: + JVD (difficult to assess ) Extremities: + edema (+2 BLLE pitting edema ) Chest (Breasts): Chest: + pacemaker Gastrointestinal (Abdomen): normal bowel sounds, soft, nontender, no hepatosplenomegaly Psychiatric: Orientation: alert (forgetful ) Results & Data Vital Signs (Past 12 Hours) Vital Signs Temp Pulse Pulse Resp BP Pulse Ox O2 Del Method 06/01/23 03:04 36.6 C 59 L 18 117/68 95 Room Air 05/31/23 22:59 36.7 C 60 18 120/77 96 Room Air 05/31/23 21:56 59 L 02/20/24 19:47 36.8 C 67 18 128/71 95 Room Air 05/31/23 19:30 Room Air Laboratory Results Cardiac Enzymes 05/31/23 06/01/23 Range/Units 10:03 06:17 AST 115 H (13-39) U/L Troponin I High Sens 429.3 H* (0-14) pg/ml CBC 06/01/23 Range/Units 06:17 WBC 14.63 H (4.8-10.8) K/ul RBC 3.67 L (4.20-5.40) M/uL Hgb 10.4 L (12.0-16.0) g/dl Hct 33.3 L (37.0-47.0) % Plt Count 67 L (130-400) K/uL Comprehensive Metabolic Panel 06/01/23 Range/Units 06:17 Sodium 134 L (136-145) mmol/L Potassium 4.8 (3.5-5.1) mmol/L Chloride 102 (98-107) mmol/L Carbon Dioxide 23 (21-32) mmol/L BUN 93 H (6-23) mg/dl Creatinine 2.66 H (0.6-1.2) mg/dl Glucose 69 L (70-99(Fasting)) mg/dl Calcium 8.3 L (8.6-10.3) mg/dl AST 115 H (13-39) U/L ALT 160 H (7-52) U/L Alkaline Phosphatase 207 H (34-104) U/L Total Protein 5.4 L (6.0-8.3) gm/dl Albumin 3.0 L (3.4-5.0) gm/dl Intake and Output 05/31/23 06/01/23 06/01/23 22:59 06:59 14:59 Intake Total 290 / 290 Output Total 425 / 1250 400 / 1250 Balance -135 / -960 -400 / -960 Intake: IV 260 / 260 Caspofungin 70 mg In Sodium 260 / 260 Chloride 0.9% 250 ml @ 260 mls/ hr IV TODAY@1845 [facility] Rx#: [id number] Oral 30 / 30 Output: Urine Amount (Catheter) 425 / 1250 400 / 1250 Red/Indwelling 425 / 1250 400 / 1250 (1) Sepsis Sepsis acute organ dysfunction status: unspecified Sepsis type: sepsis due to unspecified organism Qualified Code(s): A41.9 - Sepsis, unspecified organism (4) Aortic stenosis Cardiac valve disease etiology: nonrheumatic Qualified Code(s): I35.0 - Nonrheumatic aortic (valve) stenosis
[2023-06-01 07:28] LABS: Albumin Globulin Ratio 1.3 (0.9-2); Bilirubin,Total 1.1 mg/dl (0.2-1.0); Calcium 8.3 mg/dl (8.6-10.3); Est GFR (African American) 19.8 ml/min; Est GFR (Non-African American) 17.1 ml/min; Globulin 2.4 gm/dl (2.5-4.0); Potassium 4.8 mmol/L (3.5-5.1); Total Protein 5.4 gm/dl (6.0-8.3)
--- NOTE | 2023-06-01 08:29 | Nephrology Progress Note ---
Date of Service June 01, 2023 Assessment & Plan (1) ALONA (acute kidney injury): Plan: no longer oliguric and stable to slightly improved stage 2 acute kidney injury of multifactorial etiology including ATN from sepsis and obstructive uropathy, the latter relieved on 05/30. Baseline creatinine is 1.2. Creatinine is plateau'd at 2.8 after big overnight jump on am 05/30. Patient is being treated for urosepsis on ertapenem. CT abdomen showed atrophy of the right kidney with a right ureteral stent w/ partial obstructive left renal stone measuring 8 mm. s/p 05/30 L ureteral stent and R stent exchange. Diagnosed w/ RSV 05/31 >>06/01w/ new troponin elevation and suspect congestive transaminitis and ongoing symptomatic cough >> concern for acute HF -continue bumex 2 mg tid IV and continue matute for now -cont to hold aldactone -f/u cardiology recs -Daily BMP -Avoid contrast (2) Kidney stones: Plan: Patient with obstructive kidney stone on the left side. s/p high risk stent placement. originally deemed a high risk surgical candidate by urology but ultimately w/ procedure above. Will continue antibiotics and monitor. -Continue to monitor renal function, input output daily Admission and Anticipated Discharge Date Admission Date: May 29, 2023 Subjective feels still very tired and not eating at all when I saw her midday. breathing better however adn less cough Review of Systems 2 Review of Systems: All systems reviewed & are unremarkable except as noted in Subjective Physical Exam 2 Constitutional: well developed, well nourished, + obese and + lethargic Eyes: + eyelid abnormality (violaceous eyelids which she holds closed; blind) ENMT: Ears: no external ear abnormality Nose: no external nose abnormality Mouth: + dry oral mucous membranes Neck: no nuchal rigidity Respiratory: normal respiratory effort, + cough (less frequent and less productive) and able to speak in complete sentences; no labored breathing A uscultation: + diminished lung sounds (anterior exam) and + crackles (bibasilar crackles) Cardiovascular: Rate/Rhythm: regular rate and regular rhythm Extremities: + edema (2+ dependent) Gastrointestinal (Abdomen): Inspection/Auscultation: abdomen normal to inspection (massive pannus) and normal bowel sounds Percussion/Palpation: a bdomen soft; abdomen nontender Musculoskeletal: Extremities: strength 5/5 throughout Skin: no rashes, warm and dry Psychiatric: Orientation: oriented x 3 Results & Data Vital Signs (Past 12 Hours) Vital Signs Temp Pulse Pulse Resp BP Pulse Ox O2 Del Method 06/01/23 07:47 36.6 C 71 15 110/64 95 Room Air 06/01/23 03:04 36.6 C 59 L 18 117/68 95 Room Air 05/31/23 22:59 36.7 C 60 18 120/77 96 Room Air 05/31/23 21:56 59 L Laboratory Results 06/01/23 06:17 06/01/23 06:17
--- NOTE | 2023-06-01 08:36 | Pharmacy Report ---
Pharmacy Glycemic Short Note 2 - Date of Service June 01, 2023 - Glycemic Short BSG Results (Last 24 hours): 05/31/23 05/31/23 05/31/23 11:59 17:30 20:09 Glucose POC Glucose 151 H 133 H 127 H 06/01/23 06/01/23 06:17 08:08 Glucose 69 L POC Glucose 72 OUTPATIENT ANTIDIABETIC REGIMEN: * Lantus 33 units QAM * A1c 7.3% 05/29/23 ASSESSMENT: 06/01/23: * BSGs had been very well-controlled, ranging 100-151 mg/dL yesterday * Received 25 units of insulin (22 units of which were basal) * Fasting BSG POC of 72 mg/dL this morning - will decrease basal insulin today * POD #2 s/p cystoscopy w/ stent placement * Continues on IV ertapenem and prednisone 5 mg PO daily 05/30/23: * Patient admitted with kidney stones/sepsis, currently NPO for cystoscopy, b/l retrograde pyelogram and possible ureteral stent insertion/exchange * SCr does continue to trend upward 1.82 --> 2.88 * BSGs have been stable, will continue with 11 units of lantus BID, novolog cF 35, cr 12 (this is based of home insulin dose) PLAN FOR INPATIENT GLYCEMIC CONTROL: * Basal insulin - decrease * Lantus 0-5-10 units SC HS (see EHR for details) * Bolus insulin * NovoLog per scale ACHS or Q6hrs while NPO * Goal Range: Low 110 mg/dL - High 140 mg/dL * Correction Factor: 35 mg/dL/unit * Nutritional / Prandial insulin per carb ratio of 1 unit per 12 grams CHO consumed
--- NOTE | 2023-06-01 11:46 | Infectious Disease Consult ---
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 CT showed partially obstruction stone I L renal pelvis and atrophic R kidney w/ R ureteral stent in appropriate position. The patient had cystoscopy w/ L ureteral dilation, L ureteral stent placement, and R ureteral stent exchange (05/30/23). Blood cultures showed GPC in clusters (1 of 4 on 05/28/23, likely contaminant), Yeast (2 of 4 on 05/30/23). Currently on ertapenem and caspofungin. Clinically stable w/ no fever and down- trending WBC. Cr is currently 2.66 (w/ baseline ~1.1-1.2). F/u I agree w/ the current abx: total 10-14 days of ertapenem (given hx of severe allergic reaction to cephalosporin and presentation of UTI prior to procedure w/ multipe bacteria on urine culture). Fungemia was noted after procedure, implying this may be associated w/ the procedure. I agree w/ switching caspofungin to fluconazole 800 mg for loading followed by 300 mg daily (CrCl ~22). My suspicion is relatively low for other deep seated infections such as PVE and CIED infection but I recommend echo for evaluation in a few days. If the repeat blood culture again show C albicans, the patient will need further workup and different antifungal regimen. Anticipate total 2 weeks of antifungal from negat vipul blood cultures granted there is no evidence of IE/CIED infection and repeat blood cultures remain negative. She also has RSV infection (positive on RPPCR) on this admission as well: conservative management is reasonable. I saw and evaluated the patient today. I have reviewed the trainee note and agree. I spent a total of 50 minutes coordinating, documenting, and providing care for this patient excluding time spent in performance of separately billed services. Date of Service June 01, 2023 Telehealth Information I performed this visit using a real-time telehealth connection between my location and the patients location ([facility]). After connecting through interactive tele-video, patient was identified by name and date of and/or wristband check.Patient (or authorized healthcare marketing sales representative) was informed that this was a telemedicine visit and it was being conducted confidentially over secure lines. My office door was closed and no one else was present in the room with me.Patient (or authorized healthcare marketing sales representative) provided consent to proceed with the visit, expressed an understanding of privacy and security of the telemedicine visit, and gave permission to have a hospital marketing sales representative in the room in order to assist with the visit and to conduct portions of the visit, as needed. I informed the patient (or authorized healthcare marketing sales representative) that I reviewed their record and presented the opportunity for them to ask any questions regarding the visit today. The patient agreed to participate. Assessment & Plan (1) Deshaun albicans infection: (2) Sepsis: (3) Right ureteral stone: (4) Lactic acidosis: (5) Kidney stone on right side: Plan Urosepsis: Patient initially had abnormal UA and multiple bacteria in UCX on 05/28 and had undergone cystoscopy with bilateral retrograde pyelogram, left ureteral dilation, left ureteral stent placement left stent placement, right stent exchange on 05/30/2023. GPC in clusters seen on BCX on 05/28:contaminant (1/4 bottles) and repeat BCX from 05/30 (2/4) yeast, deshaun albicans, likely transient from the urological procedure/instrumentation Agree with continuing IV ertapenem 1gm daily for now as she had probable bacterial UTI on presentation and given anaphylaxis with cephalosporins Recommending to switch IV caspofungin to PO fluconazole 800mg loading dose followed by 600mg daily for fungemia Recommending to repeat BCX to document clearance of fungemia Patient also needs TTE or CONSTANTINE in the setting of pacemaker/TAVR to evaluate for Infective endocarditis however there is no urgency as the seeding and formation of vegetation will not happen quickly, hence recommending to obtain CONSTANTINE in 2 days to increase the yield. If she develops any visual symptoms, she needs ophthalmology evaluation or as outpatient infectious disease will continue to follow and final antibiotic choice and duration based on repeat BCX and ECHO findings. History of Present Illness History of Present Illness 73 year female admitted on 05/29/2023 Significant history of severe status post TAVR, CAD status post PCI to LAD in 2021, paroxysmal atrial fibrillation with tachy-brown syndrome status post pacemaker placement not on any anticoagulation therapy secondary to GI bleed, diabetes, hyperlipidemia, history of TIA, obstructive sleep apnea on CPAP history of papillary thyroid cancer status post thyroidectomy, hypothyroidism, rheumatoid arthritis, high triglycerides, combined systolic and diastolic heart failure, history of hepatocellular carcinoma, morbid obesity, 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 Patient had mild pain on micturition, Urology evaluated her, patient is considered high risk surgical candidate and conservative management was recommended initially however she had undergone cystoscopy with bilateral retrograde pyelogram, left ureteral dilation, left ureteral stent placement left stent placement, right stent exchange on 05/30/2023 Patient remained afebrile overnight, Patient had normal WBC initially 8.2 K, increased to 16.9-?14.6K, creatinine trending up, 1.82->2.16, lactic acidosis. UA notable for blood, nitrites, 3+ leukocyte esterase, negative bacteria and budding yeast. CT on 05/28: Partially obstructing stone in the left renal pelvis, 8 mm cholecystectomy clips, atrophy of the right kidney with a right- sided nerve ureteral stent, bilateral renal cyst, hysterectomy, diverticulosis without acute diverticulitis no small bowel obstruction, no free intraperitoneal air. Chest x-ray normal Duplex Doppler no DVT Allergies Allergy/AdvReac Type Severity Reaction Status Date / Time cephalexin Allergy Severe Anaphylaxis Verified 05/29/23 02:41 Cephalosporins Allergy Severe Anaphylaxis Verified 05/29/23 02:41 Sulfa (Sulfonamide Allergy Intermediate Hives Verified 05/29/23 02:41 Antibiotics) sulfamethoxazole Allergy Intermediate Hives Verified 05/29/23 02:41 [From Bactrim] trimethoprim [From Bactrim] Allergy Intermediate Hives Verified 05/29/23 02:41 butorphanol AdvReac Intermediate Rapid heart Verified 05/29/23 02:41 ciprofloxacin AdvReac Intermediate Nausea Verified 05/29/23 02:41 Home Medications Medication Instructions Recorded Confirmed Type aspirin 81 mg chewable tablet 81 mg PO QAM 11/02/18 05/29/23 History (Aspirin Childrens) atorvastatin 40 mg tablet 40 mg PO HS 11/02/18 05/29/23 History erythromycin 5 mg/gram (0.5 %) eye 1 applic OPB QID 11/02/18 05/29/23 History ointment folic acid 1 mg tablet 1 mg PO QAM 11/02/18 05/29/23 History hydroxychloroquine 200 mg tablet 400 mg PO HS 11/02/18 05/29/23 History (Plaquenil) levothyroxine 125 mcg tablet 125 mcg PO DAILYBB 11/02/18 05/29/23 History lorazepam 0.5 mg tablet 0.5 mg PO TID PRN Anxiety 11/02/18 05/29/23 History multivitamin with iron 1 tab PO QAM 11/02/18 05/29/23 History prednisone 5 mg tablet 5 mg PO QAM 11/02/18 05/29/23 History cyanocobalamin (vitamin B-12) 1,500 mcg PO QPM 10/20/19 05/29/23 History 1,000 mcg tablet (Vitamin B-12) hydrocodone 5 mg-acetaminophen 325 1 tab PO Q6H PRN Pain,mild 03/26/21 05/29/23 History mg tablet magnesium oxide 400 mg (241.3 mg 400 mg PO QAM 08/30/21 05/29/23 History magnesium) tablet netarsudil 0.02 % eye drops 1 drp OPL HS 08/30/21 05/29/23 History (Rhopressa) methotrexate sodium 2.5 mg tablet 10 mg PO WK 02/11/22 05/29/23 History clopidogrel 75 mg tablet (Plavix) 75 mg PO QAM 04/08/22 05/29/23 History insulin glargine 100 unit/mL 33 unit subcut QA 08/19/22 05/29/23 History subcutaneous solution (Lantus U-100 Insulin) acetaminophen 500 mg tablet 500 mg PO HS 11/05/22 05/29/23 History (Tylenol Extra Strength) nystatin 100,000 unit/gram topical 1 applic topical TID PRN SKIN 11/05/22 05/29/23 History powder IRRITATION UNDER BREASTS spironolactone 25 mg tablet 25 mg PO QAM 11/05/22 05/29/23 History latanoprost 0.005 % eye drops 1 drp OPB PM 12/18/22 05/29/23 History metoprolol succinate 25 mg 12.5 mg PO BID 12/18/22 05/29/23 History tablet,extended release 24 hr torsemide 100 mg tablet 100 mg PO QAM 12/18/22 05/29/23 History ferrous sulfate 325 mg (65 mg 325 mg PO QDL 01/26/23 05/29/23 History iron) tablet,delayed release potassium chloride 20 mEq 20 meq PO BID 01/26/23 05/29/23 History tablet,extended release ascorbic acid (vitamin C) 500 mg 500 mg PO DAILY 05/29/23 05/29/23 History tablet (Vitamin C) betaxolol 0.5 % eye drops 1 drp OPL [facility] 05/29/23 05/29/23 History gabapentin 300 mg capsule 300 mg PO [facility] 05/29/23 05/29/23 History netarsudil 0.02 % eye drops 1 drp OPL HS 05/29/23 05/29/23 History (Rhopressa) pantoprazole 40 mg tablet,delayed 40 mg PO DAILY 05/29/23 05/29/23 History release sertraline 25 mg tablet 25 mg PO DAILY 05/29/23 05/29/23 History Patient History Medical History (Updated 06/01/23 @ 11:38 by Zuleima Devries MD) CAD (coronary artery disease) s/p PCI with WALTER to mid LAD 03/22/22 (mild luminal irregularities elsewhere) History of blood transfusion 1980s Morbid obesity with BMI of 40.0-44.9, adult On anticoagulant therapy plavix daily History of COVID-19 diagnosed end of 05/2022 via home test--cough, body aches, sore throat, nausea, runny nose--no symptoms now Edema of both legs current issue--has perez wraps around both legs 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 LICA less than 50% stenosis. Aortic stenosis S/p TAVR 12/09/22 Blindness Left eye (since ), right eye sown shut "from the inside"; legally blind Pancreatic lesion 1.1 cm stable small cystic lesion in body of pancreas per 01/21/[address] Ischemic cardiomyopathy EF 25-29% 01/2023 echo Diabetic retinopathy History of atrial fibrillation Single, brief episode (2018) PAF/flutter per cardio records- [id number] score of 3- No AC due to bleeding risk (chronic microscopic hematuria with frequent urological procedures, hemorrhoids, AVMs, thrombocytopenia, liver cancer, etc.) Hypertension Kidney stones hx Liver cancer Stage 1, s/p embolization (injection black poppyseed oil twice) under surveillance by [facility] heme/onc - had radiation seeds placed 10/18/22 Diabetic neuropathy Chronic back pain Chronic kidney disease, stage 3 follows with [facility] nephrology Hernia Current Pancreatitis Mutliple, 15+ episodes (no current issues) History of gastric ulcer Hypothyroidism Diabetes mellitus, type 2 IDDM History of cancer 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), s/p surgical intervention Rheumatoid arthritis on Plaquenil, MTX, prednisone 5mg daily Anemia Iron deficiency Chronic steroid use Glaucoma open angle per [facility] records Transient ischemic attack (TIA) ? TIA vs CVA x2 (20+ years ago), no deficits Migraine Hx years ago Hyperlipidemia Congestive heart failure EF 25-29% on 01/2023 echo Myocardial Infarction Remote silent FL (10+ years ago) Sleep apnea CPAP History of sinus problem Reason for nebulizer and inhalers prn Surgical History (Updated 05/31/23 @ 10:36 by RENITA Cortez) S/P TAVR (transcatheter aortic valve replacement) December 2022 at [facility]. mechanical valve. follows with [facility]. S/P cardiac cath [facility] 03/2022 History of cardiac cath 03/22/22 > 1 stent drug eluting> [place] > see report in records Status post laser lithotripsy of ureteral calculus x3 -> November 2019, December 2019, August 2020 History of ERCP History of cystoscopy --multiple-- Cystoscopy, right stent, right laser lithotripsy (08/11/2020): LMA 4.0 unique, atraumatic, LMA attempt x1 at [facility]. No issues per postop anesthesia progress note. History of liver biopsy X 2 Nausea and vomiting after administration of anesthetic agent History of dilatation and curettage x3 S/P foot surgery, left "stepped on a needle and had to have it removed" History of carpal tunnel release of both wrists History of lumbar discectomy History of biopsy of bladder showed chronic cystitis History of total hysterectomy with bilateral salpingo-oophorectomy (BSO) History of appendectomy History of cholecystectomy History of colonoscopy History of esophagogastroduodenoscopy (EGD) History of tooth extraction all top teeth, most of bottom History of partial thyroidectomy right side and ismis removed d/t papillary cancer History of tarsorrhaphy BILT--right eye closed shut, left eye partly closed History of bilateral cataract extraction History of detached retina repair x4 on right eye; sx to sew right eye shut in 2017 Family History Father Family history of diabetes mellitus Family history of reaction to anesthesia difficulty waking Mother Family history of diabetes mellitus Sister Family history of diabetes mellitus Brother Family history of diabetes mellitus Grandmother (Maternal) Family history of diabetes mellitus Grandmother (Paternal) Family history of diabetes mellitus Son Family history of diabetes mellitus Social History Smoking Status: Never smoker Second Hand Exposure: No; Do You Dip or Chew Tobacco: No; Hx Alcohol Use: No Hx Substance Use: No Preferred Language: Spanish Communication Ability: Effective Communication Ability Comment: blind Communication Tools: Other Visual Impairment: Blindness Hearing Ability: Normal Cardroom Worker Required: Voice Beliefs That Will Affect Care: None marital status: Current Living Situation: Alone current occupational status: disabled Feels Safe at Home: Yes Diet: diabetic, low carbohydrate and low salt Diet Comment: low fat caffeine: Yes during the past year weight has: remained stable Do you think of yourself as: straight/heterosexual Gender Identity: Female Assistive Devices: Walker Review of Systems All other ROS were negative Physical Exam Physical exam limited Const:appears lethargic but responding and answering appropriately Results & Data Vital Signs (Past 12 Hours) Vital Signs Temp Pulse Resp BP Pulse Ox O2 Del Method 06/01/23 07:47 36.6 C 71 15 110/64 95 Room Air 06/01/23 03:04 36.6 C 59 L 18 117/68 95 Room Air Laboratory Results 05/30/23 09:40 Aerobic Blood Culture - Preliminary Blood Yeast Anaerobic Blood Culture - Preliminary No growth in Anaerobic bottle after 48 hours. 05/30/23 09:40 Aerobic Blood Culture - Preliminary Blood Yeast Anaerobic Blood Culture - Final 05/30/23 21:50 Urine Culture - Preliminary Urine,Indwelling Cath Pin-point growth present, reincubating. 06/01/23 06/01/23 05/31/23 08:08 06:17 20:09 WBC 14.63 H RBC 3.67 L Hgb 10.4 L Hct 33.3 L MCV 90.7 MCH 28.3 MCHC 31.2 L RDW Std Deviation 65.6 H RDW Coeff of Juani 20.5 H Plt Count 67 L MPV 12.6 H Absolute Nucleated RBC 0.02 Nucleated RBC % (auto) 0.1 Sodium 134 L Potassium 4.8 Chloride 102 Carbon Dioxide 23 Anion Gap 9 BUN 93 H Creatinine 2.66 H Est Cr Clr Drug Dosing 22.0 Est GFR ( Amer) 19.8 Est GFR (Non-Af Amer) 17.1 BUN/Creatinine Ratio 35.0 H Glucose 69 L POC Glucose 72 127 H Calcium 8.3 L Total Bilirubin 1.1 H AST 115 H ALT 160 H Alkaline Phosphatase 207 H Total Protein 5.4 L Albumin 3.0 L Globulin 2.4 L Albumin/Globulin Ratio 1.3 Nasal Screen MRSA (PCR) Adenovirus (PCR) B. pertussis DNA (PCR) B.parapertussis DNA PCR Deshaun albicans (PCR) C. pneumoniae DNA (PCR) Coronavirus OC43 (PCR) Coronavirus HKU1 (PCR) Coronavirus 229E (PCR) SARS-CoV-2 (PCR) Coronavirus NL63 (PCR) Human Metapneumovir PCR Influenza Type A (PCR) Influenza Type B (PCR) M. pneumoniae (PCR) Parainfluenza 1 (PCR) Parainfluenza 2 (PCR) Parainfluenza 3 (PCR) Parainfluenza 4 (PCR) RSV (PCR) Entero/Rhino (PCR) Bld Cult ID Panel PCR 05/31/23 05/31/23 05/31/23 19:45 17:30 11:59 WBC RBC Hgb Hct MCV MCH MCHC RDW Std Deviation RDW Coeff of Juani Plt Count MPV Absolute Nucleated RBC Nucleated RBC % (auto) Sodium Potassium Chloride Carbon Dioxide Anion Gap BUN Creatinine Est Cr Clr Drug Dosing Est GFR ( Amer) Est GFR (Non-Af Amer) BUN/Creatinine Ratio Glucose POC Glucose 133 H 151 H Calcium Total Bilirubin AST ALT Alkaline Phosphatase Total Protein Albumin Globulin Albumin/Globulin Ratio Nasal Screen MRSA (PCR) Negative Adenovirus (PCR) B. pertussis DNA (PCR) B.parapertussis DNA PCR Deshaun albicans (PCR) C. pneumoniae DNA (PCR) Coronavirus OC43 (PCR) Coronavirus HKU1 (PCR) Coronavirus 229E (PCR) SARS-CoV-2 (PCR) Coronavirus NL63 (PCR) Human Metapneumovir PCR Influenza Type A (PCR) Influenza Type B (PCR) M. pneumoniae (PCR) Parainfluenza 1 (PCR) Parainfluenza 2 (PCR) Parainfluenza 3 (PCR) Parainfluenza 4 (PCR) RSV (PCR) Entero/Rhino (PCR) Bld Cult ID Panel PCR 05/31/23 05/30/23 10:30 09:40 WBC RBC Hgb Hct MCV MCH MCHC RDW Std Deviation RDW Coeff of Juani Plt Count MPV Absolute Nucleated RBC Nucleated RBC % (auto) Sodium Potassium Chloride Carbon Dioxide Anion Gap BUN Creatinine Est Cr Clr Drug Dosing Est GFR ( Amer) Est GFR (Non-Af Amer) BUN/Creatinine Ratio Glucose POC Glucose Calcium Total Bilirubin AST ALT Alkaline Phosphatase Total Protein Albumin Globulin Albumin/Globulin Ratio Nasal Screen MRSA (PCR) Adenovirus (PCR) Not Detected B. pertussis DNA (PCR) Not Detected B.parapertussis DNA PCR Not Detected Deshaun albicans (PCR) DETECTED A C. pneumoniae DNA (PCR) Not Detected Coronavirus OC43 (PCR) Not Detected Coronavirus HKU1 (PCR) Not Detected Coronavirus 229E (PCR) Not Detected SARS-CoV-2 (PCR) Not Detected Coronavirus NL63 (PCR) Not Detected Human Metapneumovir PCR Not Detected Influenza Type A (PCR) Not Detected Influenza Type B (PCR) Not Detected M. pneumoniae (PCR) Not Detected Parainfluenza 1 (PCR) Not Detected Parainfluenza 2 (PCR) Not Detected Parainfluenza 3 (PCR) Not Detected Parainfluenza 4 (PCR) Not Detected RSV (PCR) DETECTED A Entero/Rhino (PCR) Not Detected Bld Cult ID Panel PCR See PCR Comment Diagnostic Findings . CT on 05/28: Partially obstructing stone in the left renal pelvis, 8 mm c holecystectomy clips, atrophy of the right kidney with a right-sided nerve ureteral stent, bilateral renal cyst, hysterectomy, diverticulosis without acute diverticulitis no small bowel obstruction, no free intraperitoneal air. Chest x-ray normal Duplex Doppler no DVT Medications Administered Home Medications Medication Instructions Recorded Confirmed Last Taken aspirin 81 mg chewable tablet 81 mg PO QAM 11/02/18 05/29/23 02/03/23 06:00 (Aspirin Childrens) atorvastatin 40 mg tablet 40 mg PO HS 11/02/18 05/29/23 02/02/23 20:00 erythromycin 5 mg/gram (0.5 %) eye 1 applic OPB QID 11/02/18 05/29/23 12/18/22 08:00 ointment folic acid 1 mg tablet 1 mg PO QAM 11/02/18 05/29/23 02/03/23 06:00 hydroxychloroquine 200 mg tablet 400 mg PO HS 11/02/18 05/29/23 02/02/23 20:00 (Plaquenil) levothyroxine 125 mcg tablet 125 mcg PO DAILYBB 11/02/18 05/29/23 02/03/23 06:00 lorazepam 0.5 mg tablet 0.5 mg PO TID PRN Anxiety 11/02/18 05/29/23 02/03/23 06:00 multivitamin with iron 1 tab PO QAM 11/02/18 05/29/23 02/02/23 08:00 prednisone 5 mg tablet 5 mg PO QAM 11/02/18 05/29/23 02/03/23 06:00 cyanocobalamin (vitamin B-12) 1,500 mcg PO QPM 10/20/19 05/29/23 02/02/23 20:00 1,000 mcg tablet (Vitamin B-12) hydrocodone 5 mg-acetaminophen 325 1 tab PO Q6H PRN Pain,mild 03/26/21 05/29/23 02/02/23 20:00 mg tablet magnesium oxide 400 mg (241.3 mg 400 mg PO QAM 08/30/21 05/29/23 02/02/23 08:00 magnesium) tablet netarsudil 0.02 % eye drops 1 drp OPL HS 08/30/21 05/29/23 12/17/22 (Rhopressa) methotrexate sodium 2.5 mg tablet 10 mg PO WK 02/11/22 05/29/23 02/01/23 08:00 clopidogrel 75 mg tablet (Plavix) 75 mg PO QAM 04/08/22 05/29/23 02/03/23 06:00 insulin glargine 100 unit/mL 33 unit subcut [facility] 08/19/22 05/29/23 05/28/23 09:00 subcutaneous solution (Lantus U-100 Insulin) acetaminophen 500 mg tablet 500 mg PO HS 11/05/22 05/29/23 02/02/23 20:00 (Tylenol Extra Strength) nystatin 100,000 unit/gram topical 1 applic topical TID PRN SKIN 11/05/22 05/29/23 Unknown powder IRRITATION UNDER BREASTS spironolactone 25 mg tablet 25 mg PO M 11/05/22 05/29/23 02/02/23 08:00 latanoprost 0.005 % eye drops 1 drp OPB PM 12/18/22 05/29/23 12/17/22 metoprolol succinate 25 mg 12.5 mg PO BID 12/18/22 05/29/23 02/03/23 06:00 tablet,extended release 24 hr torsemide 100 mg tablet 100 mg PO [facility] 12/18/22 05/29/23 02/02/23 08:00 ferrous sulfate 325 mg (65 mg 325 mg PO QDL 01/26/23 05/29/23 02/02/23 12:00 iron) tablet,delayed release potassium chloride 20 mEq 20 meq PO BID 01/26/23 05/29/23 02/02/23 20:00 tablet,extended release ascorbic acid (vitamin C) 500 mg 500 mg PO DAILY 05/29/23 05/29/23 Unknown tablet (Vitamin C) betaxolol 0.5 % eye drops 1 drp OPL [facility] 05/29/23 05/29/23 Unknown gabapentin 300 mg capsule 300 mg PO [facility] 05/29/23 05/29/23 Unknown netarsudil 0.02 % eye drops 1 drp OPL 05/29/23 05/29/23 Unknown (Rhopressa) pantoprazole 40 mg tablet,delayed 40 mg PO DAILY 05/29/23 05/29/23 Unknown release sertraline 25 mg tablet 25 mg PO DAILY 05/29/23 05/29/23 Unknown Active Medications Generic Name Dose Route Start Last Admin Trade Name Freq PRN Reason Stop Dose Admin Acetaminophen 500 mg 05/29/23 21:00 05/31/23 21:11 Acetaminophen 500 Mg Tab PO 06/28/23 20:59 500 mg HS LIBBY Administration Ascorbic Acid 500 mg 05/29/23 09:00 06/01/23 08:32 Ascorbic Acid 500 Mg Tab PO 06/28/23 08:59 500 mg DAILY LIBBY Administration Aspirin 81 mg 05/29/23 09:00 06/01/23 09:09 Aspirin 81 Mg Chew PO 06/28/23 08:59 81 mg QAM LIBBY Administration Atorvastatin Calcium 40 mg 05/29/23 21:00 05/31/23 21:05 Atorvastatin 40 Mg Tab PO 06/28/23 20:59 40 mg HS LIBBY Administration Betaxolol HCl 1 drops 05/29/23 09:00 06/01/23 08:35 Betaxolol Hcl 0.5% Op 5 Ml Btl OPL 06/28/23 08:59 1 drops BID LIBBY Administration Clopidogrel Bisulfate 75 mg 05/29/23 09:00 06/01/23 08:34 Clopidogrel Bisulfate 75 Mg Tab PO 06/28/23 08:59 75 mg QAM LIBBY Administration Cyanocobalamin 1,500 mcg 05/29/23 21:00 05/31/23 21:05 Cyanocobalamin (B-12) 500 Mcg Tablet PO 06/28/23 20:59 1,500 mcg QPM LIBBY Administration Erythromycin 1 appln 05/29/23 09:00 06/01/23 08:35 Erythromycin Op Oint 5 Mg/Gm 3.5 Gm Tube OPB 06/08/23 08:59 1 appln QID LIBBY Administration Ferrous Sulfate 325 mg 05/29/23 11:30 05/31/23 12:28 Ferrous Sulfate 325 Mg Tab PO 06/28/23 11:29 325 mg QDL LIBBY Administration Folic Acid 1 mg 05/29/23 09:00 06/01/23 08:31 Folic Acid 1 Mg Tab PO 06/28/23 08:59 1 mg QAM LIBBY Administration Gabapentin 300 mg 05/29/23 09:00 06/01/23 08:27 Gabapentin 300 Mg Cap PO 06/28/23 08:59 300 mg BID LIBBY Administration Heparin Sodium (Porcine) 5,000 units 05/31/23 15:25 06/01/23 06:08 Heparin Sod 5,000 Unit/0.5 Ml Vial SQ 06/30/23 15:24 Not Given Q8 [facility] Hydroxychloroquine Sulfate 400 mg 05/29/23 21:00 05/31/23 21:05 Hydroxychloroquine Sulfate 200 Mg Tab PO 06/28/23 20:59 400 mg HS LIBBY Administration Ertapenem 500 mg/ Syringe 5 mls @ 2 mls/min 05/30/23 21:00 05/31/23 21:06 IV 06/08/23 20:59 2 mls/min Q24H LIBBY Administration Sodium Chloride 1,000 mls @ 15 mls/hr 05/30/23 13:00 05/31/23 13:33 Nss IV 06/29/23 12:59 Not Given .Q24H LIBBY KVO Bumetanide 2 mg/ Syringe 8 mls @ 4 mls/min 05/31/23 21:00 06/01/23 09:10 IV 06/30/23 20:59 4 mls/min TID LIBBY Administration Caspofungin 70 mg/ Sodium 260 mls @ 260 mls/hr 05/31/23 18:45 05/31/23 20:39 Chloride IV 06/10/23 18:44 Infused TODAY@1845 LIBBY Infusion Insulin Aspart 0 units 05/29/23 16:30 06/01/23 09:04 Insulin Aspart Per Unit Charge SC 06/28/23 16:29 Not Given ACHS LIBBY Latanoprost 1 drops 05/29/23 21:00 05/31/23 21:06 Latanoprost 0.005% Op Soln 2.5 Ml Btl OPB 06/28/23 20:59 1 drops PM LIBBY Administration Levothyroxine Sodium 125 mcg 05/29/23 06:30 06/01/23 06:07 Levothyroxine Sodium 125 Mcg Tablet PO 06/28/23 06:29 125 mcg DAILYBB LIBBY Administration Magnesium Oxide 400 mg 05/29/23 09:00 06/01/23 08:31 Magnesium Oxide 400 Mg Tab PO 06/28/23 08:59 400 mg QAM LIBBY Administration Metoprolol Succinate 12.5 mg 05/29/23 09:00 06/01/23 08:29 Metoprolol Succ 25mg Ext Rel Tab PO 06/28/23 08:59 12.5 mg BID LIBBY Administration Miscellaneous 1 each 05/29/23 08:00 06/01/23 08:30 Netarsudil [Rhopressa]: Order Awaiting Action N/A 06/28/23 07:59 Not Given QS LIBBY Morphine Sulfate 2 mg 05/29/23 04:35 05/29/23 22:45 Morphine Sulfate 2 Mg/Ml Carp IV 06/12/23 04:34 2 mg Q3H PRN Administration Pain Protocol Multivitamins/Folic Acid/Vitamin C 1 tab 05/29/23 09:00 06/01/23 08:29 Multivitamin Chewable Tab PO 06/28/23 08:59 1 tab QAM LIBBY Administration Ondansetron HCl 4 mg 05/29/23 04:35 05/31/23 17:58 Ondansetron Inj 2 Mg/Ml 2 Ml Vial IV 06/28/23 04:34 4 mg Q6H PRN Administration Nausea Pantoprazole Sodium 40 mg 05/29/23 09:00 06/01/23 08:33 Pantoprazole 40 Mg Tab PO 06/28/23 08:59 40 mg DAILY LIBBY Administration Prednisone 5 mg 05/29/23 09:00 06/01/23 08:30 Prednisone 5 Mg Tab PO 06/28/23 08:59 5 mg QAM LIBBY Administration Sertraline HCl 25 mg 05/29/23 09:00 06/01/23 08:28 Sertraline Hcl 50 Mg Tablet PO 06/28/23 08:59 25 mg DAILY LIBBY Administration (2) Sepsis Sepsis type: Deshaun Sepsis acute organ dysfunction status: without acute organ dysfunction Qualified Code(s): B37.7 - Candidal sepsis; R65.20 - Severe sepsis without septic shock
[2023-06-01] MEDS: PERFLUTREN LIPID MICROSPHERE (DEFINITY) IV ONE (13:09)
[2023-06-01] MEDS: FLUCONAZOLE 200 MG/100 ML BAG IV SCH (14:35)
--- NOTE | 2023-06-01 15:03 | Urology Progress Note ---
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 CT abd noted partially obstructing stone in the left renal pelvis measuring 8 mm, atrophy of right kidney with the right-sided ureteral stent, bilateral renal cysts. POD #2 s/p Cystoscopy with bilateral retrograde pyelogram, left ureteral dilation, Left Ureteral Stent Placement, Right Ureteral Stent Exchange Afebrile and hemodynamically stable. Labs reviewed Leukocytosis downtrending 14.63 and creatinine 2.66 today. Continue to trend. Urine culture with more than 3 types of organisms, all high counts. Repeat UCx 05/30 deshaun albicans/dubliniensis Blood culture 05/28 prelim gram positive cocci clusters, repeat BCX from 05/30 (2/) yeast, deshaun albicans. Continue supportive care. Continue antibiotics and antifungal. Infectious disease consulted. Maintain Red catheter for maximum decompression while treating infection. No plan for further urologic intervention. Will arrange outpatient follow-up with our service for continued care and stent management. Urology will follow peripherally. Please call with any further questions, concerns, or changes in patient status. Admission and Anticipated Discharge Date Admission Date: May 29, 2023 Subjective Pt examined at bedside today. Asleep on arrival, awakened to name. No acute distress. On isolation for RSV. Red draining yellow urine. No fevers. Reports feeling tired. Denies pain. Review of Systems Constitutional: as per Subjective / HPI Genitourinary: as per Subjective / HPI Physical Exam Constitutional: + morbidly obese; no acute distress Appears fatigued Eyes: legally blind Respiratory: no respiratory distress and no labored breathing Neurologic: awake Psychiatric: Orientation: alert and cooperative Genitourinary: Red intact Results & Data Vital Signs (Past 12 Hours) Vital Signs Temp Pulse Pulse Resp BP Pulse Ox O2 Del Method 06/01/23 12:30 36.7 C 75 14 114/62 94 Room Air 06/01/23 08:00 60 06/01/23 07:47 36.6 C 71 15 110/64 95 Room Air 02/21/24 03:04 36.6 C 59 L 18 117/68 95 Room Air PG Care Time/CCT Total # of Minutes Spent Total Time Spent with Patient: Total time spent is greater than 50% in coordination of care (as documented) at patient's floor/unit and/or counseling patient: Coding Level of Care Code 81175 SUB INP/OBS CARE 05/05MIN Diagnoses UTI (urinary tract infection) N10 Urinary tract infection type: acute pyelonephritis Sepsis A41.9 Sepsis acute organ dysfunction status: unspecified Sepsis type: sepsis due to unspecified organism Kidney stones N20.0 (1) UTI (urinary tract infection) Urinary tract infection type: acute pyelonephritis Qualified Code(s): N10 - Acute pyelonephritis (2) Sepsis Sepsis acute organ dysfunction status: unspecified Sepsis type: sepsis due to unspecified organism Qualified Code(s): A41.9 - Sepsis, unspecified organism
--- NOTE | 2023-06-01 16:15 | Hospitalist Progress Note ---
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 Cholecystectomy clips. Atrophy of the RIGHT kidney with a right-sided nerve ureteral stent. Bilateral renal cysts. Hysterectomy. Diverticulosis, without acute diverticulitis. No small bowel obstruction. No free intraperitoneal air. --S/p Cystoscopy with bilateral retrograde pyelogram, left ureteral dilation, Left Ureteral Stent Placement, Right Ureteral Stent Exchange by Urology on 05/30/23 by -- Blood culture from 05/28: Gram-positive cocci in clusters--Likely Contamination --Repeat Blood Cx: 05/30: Growing yeast, Soniya: Likely transient from urological procedure/instrumentation -- Urine culture 05/28: 3 types of organisms. (Likely contaminant) -- Repeat urine culture 05/30: Soniya --ECHO: Mild concentric LVH. Severe diffuse left ventricular hypokinesis with focal hypokinesis in the basal inferior wall. EF 25 to 30%. Left atrium is mildly dilated. Gradient is normal for this prosthetic aortic valve. No significant prosthetic regurgitation. Severe mitral annular calcification. No evidence of valvular vegetation within the limitations of the imaging modality. Compared to prior echo in December 2022, left ventricular ejection fraction 30% at that time. -- Appreciate urology input, needs follow-up with urology on discharge --Appreciate ID input: -- Continue IV ertapenem. --IV Fungilin changed to fluconazole --Will repeat blood cultures for clearance Final recommendations to be followed with ID. Leukocytosis trending down URI --CXR:No acute cardiopulmonary findings. No change in appearance of the chest. -- BioFire positive for RSV Saturating well on room air Conservative management H/O CAD s/p stent H/O systolic and diastolic CHF ECHO as above Troponin elevation likely demand ischemia in setting of worsening renal function, CHF, volume overload Appreciate Cardiology Input Continue Aspirin, Plavix and statin and metoprolol ALONA on CKD stage III Likely ATN Baseline creatinine around 1 Cr 2.6 today Hold p.o. diuretics Continue IV Bumex Monitor volume status, renal function Avoid nephrotoxic agents as able PAF Tachybradycardia syndrome S/p pacemaker On Metoprolol Not on anticoagulation due to GI bleed History of TIA On aspirin and Plavix and statin Obstructive sleep apnea On CPAP nightly History of rheumatoid arthritis Continue Plaquenil and prednisone 5 mg daily Hypothyroidism Continue levothyroxine DM II HbA1c 7.3 Continue insulin/Sliding scale Monitor H/O Hepatocellular carcinoma S/P embolization Currently following with heme-onc Thrombocytopenia Chronic monitor Severe aortic stenosis S/p TAVR DVT Px: Heparin SQ CODE STATUS full code Admission and Anticipated Discharge Date Admission Date: May 29, 2023 Subjective Patient is seen and examined at bedside Right lower quadrant abdominal pain is better Still has some cough with expectoration Denies any nausea, vomiting, dyspnea, dizziness No other complaints Review of Systems Review of Systems: All systems reviewed & are unremarkable except as noted in Subjective Physical Exam Physical Exam: Physical Exam: Vitals signs as noted above General Appearance:Obese, no apparent distress Head: normocephalic, Atraumatic Eyes: eyelids remains closed, blind Neck: supple, Trachea midline Respiratory/Chest: Decreased breath sounds, basal crackles, No accessory muscle use Cardiovascular: S1, S2, No murmur Abdomen/GI:Soft, RLQ mild tender, Bowel sounds present Extremities/Musculoskeletal:normal inspection, 2+ Pedal edema Neurologic/Psych:AAOX3, grossly no focal neurological deficits Skin: normal color, warm Results & Data Results & Data Vital Signs (Past 12 Hours) Vital Signs Temp Pulse Pulse Resp BP Pulse Ox O2 Del Method 06/01/23 15:58 36.1 C L 60 16 118/70 95 Room Air 06/01/23 15:00 60 06/01/23 12:30 36.7 C 75 14 114/62 94 Room Air 06/01/23 08:00 60 06/01/23 07:47 36.6 C 71 15 110/64 95 Room Air Laboratory Results Short CBC 06/01/23 Range/Units 06:17 WBC 14.63 H (4.8-10.8) K/ul Hgb 10.4 L (12.0-16.0) g/dl Hct 33.3 L (37.0-47.0) % Plt Count 67 L (130-400) K/uL BMP 06/01/23 06:17 Sodium 134 L Potassium 4.8 Chloride 102 Carbon Dioxide 23 BUN 93 H Creatinine 2.66 H Glucose 69 L Calcium 8.3 L Liver Function 06/01/23 Range/Units 06:17 Total Bilirubin 1.1 H (0.2-1.0) mg/dl AST 115 H (13-39) U/L ALT 160 H (7-52) U/L Alkaline Phosphatase 207 H (34-104) U/L Albumin 3.0 L (3.4-5.0) gm/dl (1) Sepsis Sepsis acute organ dysfunction status: unspecified Sepsis type: sepsis due to unspecified organism Qualified Code(s): A41.9 - Sepsis, unspecified organism
[2023-06-01] MEDS ORDERED: FLUCONAZOLE 200 MG/100 ML BAG IV SCH (18:00)
[2023-06-01] MEDS ORDERED: CASPOFUNGIN 50 MG in SODIUM CHLORIDE 0.9% 250 ML IV SCH (18:30)
[2023-06-01] MEDS: LANTUS PER UNIT CHARGE SC SCH (21:49)
[2023-06-02] MEDS: ACETAMINOPHEN 325 MG TAB PO PRN (06:30)
[2023-06-02 06:55] LABS: Hematocrit (blood only) 33.4 % (37.0-47.0); Hemoglobin 10.4 g/dl (12.0-16.0); Mean Corpuscular Hemoglobin 28.5 pg (25.0-34.0); Mean Corpuscular Hgb Conc 31.1 g/dL (32.0-36.0); Mean Corpuscular Volume 91.5 fL (80.0-100.0); Mean Platelet Volume 11.8 fL (9.4-12.4); Nucleated RBC # (auto) 0.02 K/uL (0.00-0.12); Nucleated RBC % (auto) 0.2 %; Platelet Count 66 K/uL (130-400); RDW Coefficient of Variation 20.2 % (11.5-14.5); RDW Standard Deviation 65.9 fL (36.4-46.3); Red Blood Count 3.65 M/uL (4.20-5.40); White Blood Count 12.08 K/ul (4.8-10.8)
[2023-06-02 07:05] LABS: Albumin Globulin Ratio 1.2 (0.9-2); Albumin Level 2.9 gm/dl (3.4-5.0); BUN Creatinine Ratio 40.7 (10-20); Calcium 8.2 mg/dl (8.6-10.3); Creatinine Clr Calc Pharmacy 26.4 ml/min; Est GFR (African American) 24.8 ml/min; Est GFR (Non-African American) 21.4 ml/min; Globulin 2.4 gm/dl (2.5-4.0); Magnesium 2.3 mg/dl (1.7-2.4); Potassium 4.2 mmol/L (3.5-5.1); Total Protein 5.3 gm/dl (6.0-8.3)
--- NOTE | 2023-06-02 07:24 | Cardiology Progress Note ---
Date of Service June 02, 2023 Assessment & Plan (1) Sepsis: (2) Elevated troponin: (3) HFrEF (heart failure with reduced ejection fraction): (4) Aortic stenosis: (5) S/P TAVR (transcatheter aortic valve replacement): (6) Tachy-wilfrido syndrome: (7) Pacemaker: (8) CAD (coronary artery disease): (9) RSV (respiratory syncytial virus infection): Plan IMPRESSION: -Medically complex acutely ill 73-year-old female initially presented to [facility] emergency department on 05/28/2023 due to two days worth of nausea, vomiting, and diarrhea. Found to be uroseptic with a partially obstructive left kidney stone. Urology was consulted and she ultimately underwent a high risk complex cystoscopy with left ureteral dilation, left ureteral stent placement as well as right ureteral stent exchange on 05/30/[address] Johansen. -Known CKD with acute kidney injury this admission-- nephrology on board. Diuretics currently on hold. -Elevated HS troponin levels: 52.5>>62.5>>449.8>>429.3 pg/ml PLAN: Elevated HS Troponin: Elevated troponin in the setting of acute illness, urosepsis, post complex cystoscopy, ALONA, and acute on chronic HFrEF. Patient does has known coronary disease with a PCI to the mid LAD 03/2022, but is currently chest pain free. EKG without ischemic changes. 1. Elevated troponin likely due to above reasons/acute illness- patient would be high risk for any further invasive workup. In the absence of symptoms and EKG without ischemic changes low likelihood for ACS. Will medically manage. Urosepsis: 1 of 4 blood cultures with gram positive cocci in clusters- likely contaminant 2 of 4 blood cultures with yeast UA 05/30/23: deshaun albicans / dubliniensis 1. ID input noted and appreciated, pt on ertapenem and now caspofungin. 2. Echo images limited, but no overt signs of vegetation. At present she is not a candidate for CONSTANTINE given respiratory status with CHF and RSV. RSV: Cough and congestion improving 1. Supportive measures per hospitalist team. Acute on Chronic HFrEF: Chronic systolic CHF, hypervolemic on exam. Diuretics previously on hold due to ALONA. 1. Patient appears hypervolemic on exam-- diuretics restarted per nephrology. Renal function slightly improved. 2. Bumex 2mg IV TID started by nephrology 05/31/2023-- appreciate assistance. Case discussed with Dr. Donovan-- further recommendations pending his assessment. I spent a total of 30 minutes on the date of service in preparation, delivery, and documentation of the care provided to the patient excluding any time spent in the performance of separately billed services. RENITA Granger Department of Cardiology, [facility] This chart was completed in part utilizing Speech Voice Recognition Software. Grammatical errors, random word insertions, pronoun errors, and incomplete sentences are an occasional consequence of this system due to software limitations, ambient noise, and hardware issues. Any formal questions or concerns about the content, text, or information contained within the body of this dictation should be directly addressed to the provider for clarification. Admission and Anticipated Discharge Date Admission Date: May 29, 2023 Supervising Physician Co-Signing Physician Notes Attending attestation: Case reviewed with the advanced practitioner. I have personally performed a history and physical examination on the patient. I have reviewed the advanced practitioner's documentation on the date of service referenced in note, and I agree with, and take responsibility for the plan of care. Subjective: Cough noted. Exam: General: ill in appearance Cardiovascular: Regular rate, 1/6 systolic murmur, trace lower extremity edema Pulmonary: Decreased breath sounds bilaterally at the bases Data: EKG performed 05/31/2023 at 8:08 AM revealed sinus rhythm with first-degree AV block at 263 ms. Telemetry reveals sinus rhythm with occasional atrial pacing, long AV delay 1 of 4 blood cultures with gram positive cocci in clusters- likely contaminant 2 of 4 blood cultures with yeast UA 05/30/23: deshaun albicans / dubliniensis Assessment and Plan: 1-Sepsis, urinary source 2-Fungemia 3-Respiratory panel performed 05/31/2023 notable for RSV 4-Acute on chronic heart failure with reduced ejection fraction 5-ALONA with history of severe left ventricular systolic dysfunction, clinically, moderate volume overload suggested 6-h/o dual chamber pacemaker, 2021, TAVR 11/2022 -Supportive care as indicated for RSV -Nephrology input noted and appreciated, proceed with trial of IV Bumex 2 mg IV 3 times daily -Continue dual antiplatelet therapy with aspirin and clopidogrel given TAVR and LAD stent- monitor platelet count -Continue metoprolol 12.5 mg twice daily, atorvastatin 40 mg daily -ID input noted and appreciated, pt on ertapenem and now caspofungin -Proceed with transthoracic echocardiogram. At present she is not a candidate for CONSTANTINE given respiratory status with CHF and RSV. DVT prophylaxis: SQ heparin , platelet count 66 K I spent a total of 25 minutes on the date of service in preparation, delivery, and documentation of the care provided to this patient, excluding any time spent in the performance of separately billed services. Luigi Donovan, DO Subjective Medically complex acutely ill 73-year-old female initially presented to [facility] emergency department on 05/28/2023 due to 2 days worth of nausea, vomiting, and diarrhea. Found to be uroseptic with a partially obstructive left kidney stone. Urology was consulted and she ultimately underwent a high risk complex cystoscopy with left ureteral dilation, left ureteral stent placement as well as right ureteral stent exchange on 05/30/[address] Johansen. Known CKD with acute kidney injury this admission. 05/31: Cough since admission with chest pressure with deep inspiration, +RSV. Hypervolemic on exam, Bumex started per nephrology (2mg TID) Elevated HS troponin-- deemed multifactorial due to cute illness, urosepsis, post complex cystoscopy, ALONA, and acute on chronic HFrEF. 06/01: Increase in lethargy and confusion. 1 of 4 blood cultures with gram positive cocci in clusters- likely contaminant 2 of 4 blood cultures with yeast UA 05/30/23: deshaun albicans / dubliniensis Hypervolemic on exam-- diuretics managed by nephrology. +Red cath. ID consulted-- patient on ertapenem and caspofungin. Recommended CONSTANTINE, however not a candidate due to CHF and RSV 06/02: Echo: LVEF 25-30% with severe diffuse left ventricular hypokinesis with focal hypokinesis of the basal inferior wall. Aortic valve prosthesis gradients stable. No regurgitation. No evidence of valvular vegetation however quality was limited. Tele: Sinus rhythm with occasional atrial pacing, long AV delay I&O: -500mL Weight: 106.9 kg >>106.6 kg >>105.7 kg Labs: Serum creatinine slightly improved-- 2.88>>2.66>>2.21* Upon entrance into the room patient resting in bed eating breakfast. Notes subjectively improved this morning but continues to feel fatigued and weak. No chest pain. Mild dyspnea. Increased lower extremity edema and orthopnea-- slightly improved. Review of Systems Review of Systems: All systems reviewed & are unremarkable except as noted in HPI & below Physical Exam Constitutional: + ill appearing; no acute distress Neck: normal visual inspection and trachea midline Respiratory: normal respiratory effort and + cough (moist productive); no respiratory distress Auscultation: + rales, + rhonchi and + wheezes Cardiovascular: Rate/Rhythm: regular rate and regular rhythm Heart Sounds: normal S1, normal S2 and + murmur (diminished heart sounds ) Vessels: + JVD (difficult to assess ) Extremities: + pedal edema (Trace BL) and + edema (+2 BLLE pitting edema ) Chest (Breasts): Chest: + pacemaker Gastrointestinal (Abdomen): normal bowel sounds, soft, nontender, no hepatosplenomegaly Psychiatric: Orientation: alert (forgetful ) and oriented x 3 Results & Data Vital Signs (Past 12 Hours) Vital Signs Temp Pulse Pulse Resp BP Pulse Ox O2 Del Method 06/02/23 03:54 36.3 C L 65 18 133/85 92 Room Air 06/01/23 23:41 36.6 C 64 18 114/73 93 Room Air 06/01/23 21:59 60 06/01/23 21:30 Room Air Laboratory Results Cardiac Enzymes 06/02/23 Range/Units 06:03 AST 72 H (13-39) U/L CBC 06/02/23 Range/Units 06:03 WBC 12.08 H (4.8-10.8) K/ul RBC 3.65 L (4.20-5.40) M/uL Hgb 10.4 L (12.0-16.0) g/dl Hct 33.4 L (37.0-47.0) % Plt Count 66 L (130-400) K/uL Comprehensive Metabolic Panel 06/02/23 Range/Units 06:03 Sodium 136 (136-145) mmol/L Potassium 4.2 (3.5-5.1) mmol/L Chloride 103 (98-107) mmol/L Carbon Dioxide 24 (21-32) mmol/L BUN 90 H (6-23) mg/dl Creatinine 2.21 H D (0.6-1.2) mg/dl Glucose 65 L (70-99(Fasting)) mg/dl Calcium 8.2 L (8.6-10.3) mg/dl AST 72 H (13-39) U/L ALT 117 H (7-52) U/L Alkaline Phosphatase 201 H (34-104) U/L Total Protein 5.3 L (6.0-8.3) gm/dl Albumin 2.9 L (3.4-5.0) gm/dl Intake and Output 06/01/23 06/02/23 06/02/23 22:59 06:59 14:59 Intake Total 376.666 / 716.666 Output Total 1300 / 2250 500 / 2250 Balance -923.334 / -1533.334 -500 / -1533.334 Intake: IV 376.666 / 376.666 Fluconazole 200 mg In 100 ml @ 376.666 / 376.666 100 mls/hr IV Q1H [facility] Rx#: [id number] Output: Urine Amount (Catheter) 1300 / 2250 500 / 2250 Red/Indwelling 1300 / 2250 500 / 2250 Other: Weight 105.7 kg Weight Measurement Method Built in [facility] (1) Sepsis Sepsis acute organ dysfunction status: unspecified Sepsis type: sepsis due to unspecified organism Qualified Code(s): A41.9 - Sepsis, unspecified organism (4) Aortic stenosis Cardiac valve disease etiology: nonrheumatic Qualified Code(s): I35.0 - Nonrheumatic aortic (valve) stenosis
[2023-06-02] MEDS ORDERED: POLYETHYLENE (MIRALAX) 17 GM PACK PO PRN (07:47)
[2023-06-02] MEDS: DOCUSATE SODIUM 100 MG CAP PO SCH (08:25)
[2023-06-02] MEDS: POLYETHYLENE (MIRALAX) 17 GM PACK PO ONE (08:26)
--- NOTE | 2023-06-02 09:07 | XRay Report ---
KUB CLINICAL HISTORY: Constipation. COMPARISON STUDY: CT of the abdomen and pelvis May 28, 2023. FINDINGS: There are cholecystectomy clips, Red catheter and bilateral ureteral stents. Prominent ga s-filled small bowel loops are present. There is also gas within portions of the colon. The amount of stool is within normal limits. No urinary calculi are identified by radiography. No evidence for ligia e air on supine exam. IMPRESSION: 1. Prominent gas-filled loops of small bowel without convincing evidence for a small bowel obstructio n. 2. Amount of stool within normal limits. 3. Bilateral ureteral stents in place. ACT 112: Negative or not required by law. Electronically signed by: Aj Reza M.D. 06/02/2023 9:05 AM
--- NOTE | 2023-06-02 10:41 | Pharmacy Report ---
Pharmacy Glycemic Short Note 2 - Date of Service June 02, 2023 - Glycemic Short BSG Results (Last 24 hours): 06/01/23 06/01/23 06/01/23 12:25 17:26 20:23 Glucose POC Glucose 99 92 101 H 06/02/23 06/02/23 06:03 08:27 Glucose 65 L POC Glucose 70 OUTPATIENT ANTIDIABETIC REGIMEN: * Lantus 33 units QAM * A1c 7.3% 05/29/23 ASSESSMENT: 06/02/23: * Orquidea received 5 units of basal insulin yesterday * All BSGs below goal range yesterday, fasting BSG this AM also below goal range, will hold off on basal insulin for now until BSGs increase and PO intake improves * Continue current Novolog parameters as they appear to be addressing her glycemic needs. 06/01/23 * BSGs had been very well-controlled, ranging 100-151 mg/dL yesterday * Received 25 units of insulin (22 units of which were basal) * Fasting BSG POC of 72 mg/dL this morning - will decrease basal insulin today * POD #2 s/p cystoscopy w/ stent placement * Continues on IV ertapenem and prednisone 5 mg PO daily 05/30/23: * Patient admitted with kidney stones/sepsis, currently NPO for cystoscopy, b/l retrograde pyelogram and possible ureteral stent insertion/exchange * SCr does continue to trend upward 1.82 --> 2.88 * BSGs have been stable, will continue with 11 units of lantus BID, novolog cF 35, cr 12 (this is based of home insulin dose) PLAN FOR INPATIENT GLYCEMIC CONTROL: * Basal insulin * HOLD until BSGs rise and PO intake improves * Bolus insulin * NovoLog per scale ACHS or Q6hrs while NPO * Goal Range: Low 110 mg/dL - High 140 mg/dL * Correction Factor: 35 mg/dL/unit * Nutritional / Prandial insulin per carb ratio of 1 unit per 12 grams CHO consumed
--- NOTE | 2023-06-02 10:55 | Nephrology Progress Note ---
Date of Service June 02, 2023 Assessment & Plan (1) ALONA (acute kidney injury): Plan: no longer oliguric and now improving stage 2 acute kidney injury of multifactorial etiology including ATN from sepsis and obstructive uropathy, the latter relieved on 05/30. Baseline creatinine is 1.2. Creatinine peaked on 05/30 at 2.9; down to 2.2 today. Patient is being treated for urosepsis on ertapenem and for albicans candidemia as of 05/30. CT abdomen showed atrophy of the right kidney with a right ureteral stent w/ partial obstructive left renal stone measuring 8 mm. s/p 05/30 L ureteral stent and R stent exchange. Diagnosed w/ RSV 05/31 -continue bumex 2 mg tid IV and continue matute for now; may be able to scale back tomorrow -cont to hold aldactone -f/u cardiology recs -Daily BMP -Avoid contrast (2) Kidney stones: Plan: Patient with obstructive kidney stone on the left side. s/p high risk stent placement. originally deemed a high risk surgical candidate by urology but ultimately w/ procedure above. Will continue antibiotics and monitor. -Continue to monitor renal function, input output daily (3) Soniya albicans infection: Plan: 2/4 blood cxs on 05/30 > ID eval on 06/01 w/ change to fluconazole and for ertapenem to continue; repeat TTE recommended possibly 06/03 versus CONSTANTINE (per cardiology); 06/01 repeat cxs pending Admission and Anticipated Discharge Date Admission Date: May 29, 2023 Subjective ID following for fungemia (2/ blood cxs 05/30)> caspo to fluconazole and continue ertapenem; 1.4L negative yesterday but overall about 500 mL negative on visit only Review of Systems 2 Review of Systems: All systems reviewed & are unremarkable except as noted in Subjective Results & Data Vital Signs (Past 12 Hours) Vital Signs Temp Pulse Resp BP Pulse Ox O2 Del Method 06/02/23 07:58 36.4 C 60 16 96/43 L 95 Room Air 06/02/23 03:54 36.3 C L 65 18 133/85 92 Room Air 06/01/23 23:41 36.6 C 64 18 114/73 93 Room Air Laboratory Results 06/02/23 06:03 06/02/23 06:03
[2023-06-02] MEDS ORDERED: FLUCONAZOLE 100 MG/50 ML BAG IV SCH (13:00)
[2023-06-02] MEDS: FLUCONAZOLE 100 MG TAB PO SCH (13:05)
[2023-06-02] MEDS: FLUCONAZOLE 200 MG/100 ML BAG IV SCH (13:11)
--- NOTE | 2023-06-02 15:50 | Hospitalist Progress Note ---
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 Cholecystectomy clips. Atrophy of the RIGHT kidney with a right-sided nerve ureteral stent. Bilateral renal cysts. Hysterectomy. Diverticulosis, without acute diverticulitis. No small bowel obstruction. No free intraperitoneal air. --S/p Cystoscopy with bilateral retrograde pyelogram, left ureteral dilation, Left Ureteral Stent Placement, Right Ureteral Stent Exchange by Urology on 05/30/23 by -- Blood culture from 05/28: Gram-positive cocci in clusters--Likely Contamination --Repeat Blood Cx: 05/30: Growing yeast, Soniya: Likely transient from urological procedure/instrumentation -- Urine culture 05/28: 3 types of organisms. (Likely contaminant) -- Repeat urine culture 05/30: Soniya --ECHO: Mild concentric LVH. Severe diffuse left ventricular hypokinesis with focal hypokinesis in the basal inferior wall. EF 25 to 30%. Left atrium is mildly dilated. Gradient is normal for this prosthetic aortic valve. No significant prosthetic regurgitation. Severe mitral annular calcification. No evidence of valvular vegetation within the limitations of the imaging modality. Compared to prior echo in December 2022, left ventricular ejection fraction 30% at that time. -- Appreciate urology input, needs follow-up with urology on discharge --Appreciate ID input: -- Continue IV ertapenem. --IV Caspofungin changed to fluconazole Final recommendations to be followed with ID. Leukocytosis trending down Repeat blood cultures pending Will need 2-week course of antifungal treatment from clearance of blood cultures URI --CXR:No acute cardiopulmonary findings. No change in appearance of the chest. -- BioFire positive for RSV Saturating well on room air Conservative management H/O CAD s/p stent H/O systolic and diastolic CHF ECHO as above Troponin elevation likely demand ischemia in setting of worsening renal function, CHF, volume overload Appreciate Cardiology Input Continue Aspirin, Plavix and statin and metoprolol ALONA on CKD stage III Likely ATN Baseline creatinine around 1 Cr 2.6 today Hold p.o. diuretics Continue IV Bumex Monitor volume status, renal function Avoid nephrotoxic agents as able Volume status slowly improving PAF Tachybradycardia syndrome S/p pacemaker On Metoprolol Not on anticoagulation due to GI bleed History of TIA On aspirin and Plavix and statin Obstructive sleep apnea On CPAP nightly History of rheumatoid arthritis Continue Plaquenil and prednisone 5 mg daily Hypothyroidism Continue levothyroxine DM II HbA1c 7.3 Continue insulin/Sliding scale Monitor H/O Hepatocellular carcinoma S/P embolization Currently following with heme-onc Thrombocytopenia Chronic monitor Severe aortic stenosis S/p TAVR DVT Px: Heparin SQ CODE STATUS full code Admission and Anticipated Discharge Date Admission Date: May 29, 2023 Subjective Patient is seen and examined at bedside Subjectively feels better today Reports constipation Less cough today Still has some abdominal discomfort No other complaints Denies any nausea, vomiting, dyspnea, dizziness Review of Systems Review of Systems: All systems reviewed & are unremarkable except as noted in Subjective Physical Exam Physical Exam: Physical Exam: Vitals signs as noted above General Appearance:Obese, no apparent distress Head: normocephalic, Atraumatic Eyes: eyelids remains closed, blind Neck: supple, Trachea midline Respiratory/Chest: Decreased breath sounds, basal crackles, No accessory muscle use Cardiovascular: S1, S2, No murmur Abdomen/GI:Soft, RLQ mild tender, Bowel sounds present Extremities/Musculoskeletal:normal inspection, 2+ Pedal edema Neurologic/Psych:AAOX3, grossly no focal neurological deficits Skin: normal color, warm Results & Data Results & Data Vital Signs (Past 12 Hours) Vital Signs Temp Pulse Pulse Resp BP Pulse Ox O2 Del Method 06/02/23 11:49 36.4 C L 62 16 103/67 94 Room Air 06/02/23 08:00 60 06/02/23 08:00 Room Air 06/02/23 07:58 36.4 C 60 16 96/43 L 95 Room Air 06/02/23 03:54 36.3 C L 65 18 133/85 92 Room Air Laboratory Results Short CBC 06/02/23 Range/Units 06:03 WBC 12.08 H (4.8-10.8) K/ul Hgb 10.4 L (12.0-16.0) g/dl Hct 33.4 L (37.0-47.0) % Plt Count 66 L (130-400) K/uL BMP 06/02/23 06:03 Sodium 136 Potassium 4.2 Chloride 103 Carbon Dioxide 24 BUN 90 H Creatinine 2.21 H D Glucose 65 L Calcium 8.2 L Liver Function 06/02/23 Range/Units 06:03 Total Bilirubin 1.0 (0.2-1.0) mg/dl AST 72 H (13-39) U/L ALT 117 H (7-52) U/L Alkaline Phosphatase 201 H (34-104) U/L Albumin 2.9 L (3.4-5.0) gm/dl (1) Sepsis Sepsis acute organ dysfunction status: unspecified Sepsis type: sepsis due to unspecified organism Qualified Code(s): A41.9 - Sepsis, unspecified organism
--- NOTE | 2023-06-02 21:16 | Nephrology Progress Note ---
Date of Service June 02, 2023 Assessment & Plan (1) ALONA (acute kidney injury): Plan: no longer oliguric and improving stage 2 acute kidney injury of multifactorial etiology including ATN from sepsis and obstructive uropathy, the latter relieved on 05/30. Baseline creatinine is 1.2. Creatinine peaked at 2.9 after big overnight jump on am 05/30; today down to 2.2. Patient is being treated for urosepsis on ertapenem; for c albicans candidemia on fluconazole. CT abdomen showed atrophy of the right kidney with a right ureteral stent w/ partial obstructive left renal stone measuring 8 mm. s/p 05/30 L ureteral stent and R stent exchange. Diagnosed w/ RSV 05/31 -continue bumex 2 mg tid IV and continue matute for now -cont to hold aldactone -f/u cardiology recs -Daily BMP -Avoid contrast (2) Kidney stones: Plan: Patient with obstructive kidney stone on the left side. s/p high risk stent placement. originally deemed a high risk surgical candidate by urology but ultimately w/ procedure above. Will continue antibiotics and monitor. -Continue to monitor renal function, input output daily (3) Soniya albicans infection: Plan: changed from caspo > fluconazole; ID has evaluated her; recommends repeat tte; f/u pending repeat cxs Admission and Anticipated Discharge Date Admission Date: May 29, 2023 Subjective ID following for fungemia (05/15 blood cxs 05/30)> caspo to fluconazole and continue ertapenem; 1.4L negative yesterday but overall about 500 mL negative on visit only; seen on evening rounds. minimal po intake still; does feel she's breathing better. no sob Review of Systems 2 Review of Systems: All systems reviewed & are unremarkable except as noted in Subjective Physical Exam 2 Constitutional: well developed, well nourished, + obese and + lethargic Eyes: + eyelid abnormality (violaceous eyelids which she holds closed; blind) ENMT: Ears: no external ear abnormality Nose: no external nose abnormality Mouth: + dry oral mucous membranes Neck: no nuchal rigidity Respiratory: normal respiratory effort, + cough (less frequent and less productive) and able to speak in complete sentences; no labored breathing A uscultation: + diminished lung sounds (anterior exam) Cardiovascular: Rate/Rhythm: regular rate and regular rhythm Extremities: + edema (2+ dependent) Gastrointestinal (Abdomen): Inspection/Auscultation: abdomen normal to inspection (massive pannus) and normal bowel sounds Percussion/Palpation: a bdomen soft; abdomen nontender Musculoskeletal: Extremities: strength 5/5 throughout Skin: no rashes, warm and dry Psychiatric: Orientation: oriented x 3 Results & Data Vital Signs (Past 12 Hours) Vital Signs Temp Pulse Pulse Resp BP Pulse Ox O2 Del Method 06/02/23 20:20 36.1 C L 60 16 113/69 97 Room Air 06/02/23 16:30 60 06/02/23 16:09 36.3 C L 60 16 106/64 93 Room Air 06/02/23 11:49 36.4 C L 62 16 103/67 94 Room Air Laboratory Results 06/02/23 06:03 06/02/23 06:03
[2023-06-03 06:52] LABS: Hematocrit (blood only) 33.1 % (37.0-47.0); Hemoglobin 10.6 g/dl (12.0-16.0); Mean Corpuscular Hemoglobin 28.5 pg (25.0-34.0); Mean Platelet Volume 12.1 fL (9.4-12.4); Platelet Count 81 K/uL (130-400); RDW Coefficient of Variation 20.7 % (11.5-14.5); RDW Standard Deviation 63.9 fL (36.4-46.3); Red Blood Count 3.72 M/uL (4.20-5.40)
[2023-06-03 07:13] LABS: Albumin Globulin Ratio 1.2 (0.9-2); Albumin Level 2.9 gm/dl (3.4-5.0); BUN Creatinine Ratio 41.5 (10-20); Calcium 8.3 mg/dl (8.6-10.3); Creatinine Clr Calc Pharmacy 28.8 ml/min; Est GFR (Non-African American) 24.2 ml/min; Globulin 2.5 gm/dl (2.5-4.0); Potassium 4.1 mmol/L (3.5-5.1); Total Protein 5.4 gm/dl (6.0-8.3)
[2023-06-03] MEDS: BUMETANIDE 2 MG in SYRINGE 0 ML IV SCH ×2 (09:34→21:42)
[2023-06-03] MEDS: LANTUS PER UNIT CHARGE SC SCH (09:37)
--- NOTE | 2023-06-03 11:54 | Cardiology Progress Note ---
Date of Service June 03, 2023 Assessment & Plan (1) Sepsis: (2) Elevated troponin: (3) HFrEF (heart failure with reduced ejection fraction): (4) Aortic stenosis: (5) S/P TAVR (transcatheter aortic valve replacement): (6) Tachy-wilfrido syndrome: (7) Pacemaker: (8) CAD (coronary artery disease): (9) RSV (respiratory syncytial virus infection): Plan IMPRESSION: -Medically complex acutely ill 73-year-old female initially presented to [facility] emergency department on 05/28/2023 due to two days worth of nausea, vomiting, and diarrhea. Found to be uroseptic with a partially obstructive left kidney stone. Urology was consulted and she ultimately underwent a high risk complex cystoscopy with left ureteral dilation, left ureteral stent placement as well as right ureteral stent exchange on 05/30/[address] Johansen. -Known CKD with acute kidney injury this admission-- nephrology on board. -Elevated HS troponin levels: 52.5>>62.5>>449.8>>429.3 pg/ml PLAN: Elevated HS Troponin: Elevated troponin in the setting of acute illness, urosepsis, post complex cystoscopy, ALONA, and acute on chronic HFrEF. Patient does has known coronary disease with a PCI to the mid LAD 03/2022, but is currently chest pain free. EKG without ischemic changes. 1. Elevated troponin likely due to above reasons/acute illness- patient would be high risk for any further invasive workup. In the absence of symptoms and EKG without ischemic changes low likelihood for ACS. Will medically manage. Urosepsis: 1 of 6 blood cultures with gram positive cocci in clusters- likely contaminant 2 of 6 blood cultures with deshaun albicans / dubliniensis UA 05/30/23: deshaun albicans / dubliniensis 1. ID input noted and appreciated, pt on ertapenem and now caspofungin. 2. Echo images limited, but no overt signs of vegetation. At present she is not a candidate for CONSTANTINE given respiratory status with CHF and RSV. Repeat blood cultures drawn 06/02 - No growth after 24 hours RSV: Cough and congestion improving 1. Supportive measures per hospitalist team. Acute on Chronic HFrEF: Chronic systolic CHF, hypervolemic on exam. Diuretics previously on hold due to ALONA. -diuretics resumed -renal function improving -2.2 L output yesterday and 1.7 thus far today. -continue bumex 2 mg IV BID - Nephrology following and guiding diuretics. -Monitor electrolytes and keep potassium 4-5 and mag > 2.[address] Donovan I spent a total of 30 minutes on the date of service in preparation, delivery, and documentation of the care provided to the patient excluding any time spent in the performance of separately billed services. Dian Candelario PA-C Department of Cardiology, [facility] This chart was completed in part utilizing Speech Voice Recognition Software. Grammatical errors, random word insertions, pronoun errors, and incomplete sentences are an occasional consequence of this system due to software limitations, ambient noise, and hardware issues. Any formal questions or concerns about the content, text, or information contained within the body of this dictation should be directly addressed to the provider for clarification. Admission and Anticipated Discharge Date Admission Date: May 29, 2023 Supervising Physician Co-Signing Physician Notes Attending attestation: Case reviewed with the advanced practitioner. I have personally performed a history and physical examination on the patient. I have reviewed the advanced practitioner's documentation on the date of service referenced in note, and I agree with, and take responsibility for the plan of care. Subjective: Cough noted however more comfortable. Exam: General: general apperance improved Cardiovascular: Regular rate, 1/6 systolic murmur, trace lower extremity edema Pulmonary: Decreased breath sounds bilaterally at the bases Data: EKG performed 05/31/2023 at 8:08 AM revealed sinus rhythm with first-degree AV block at 263 ms. Telemetry reveals sinus rhythm with occasional atrial pacing, long AV delay 1 of 4 blood cultures with gram positive cocci in clusters- likely contaminant 2 of 4 blood cultures with yeast UA 05/30/23: deshaun albicans / dubliniensis Assessment and Plan: 1-Sepsis, urinary source 2-Fungemia 3-Respiratory panel performed 05/31/2023 notable for RSV 4-Acute on chronic heart failure with reduced ejection fraction 5-ALONA with history of severe left ventricular systolic dysfunction, clinically, moderate volume overload suggested 6-h/o dual chamber pacemaker, 2021, TAVR 11/2022 7-Rheumatoid arthritis on Plaquenil, prednisone 5mg daily on chronic basis -Supportive care as indicated for RSV -Nephrology input noted and appreciated, Bumex dose lowered to 2 mg IV two times per day -Continue dual antiplatelet therapy with aspirin and clopidogrel given TAVR and LAD stent- monitor platelet count -Continue metoprolol 12.5 mg twice daily, atorvastatin 40 mg daily -ID input noted and appreciated, pt on ertapenem and now caspofungin -Transthoracic echocardiogram this admission revealed stable valvular structure and function, aortic valve prosthesis not well-visualized, ongoing severe left ventricular systolic dysfunction with ejection fraction in the range of 25 to 30% noted. -At present she is not a candidate for CONSTANTINE given respiratory status with CHF and RSV. DVT prophylaxis: SQ heparin , platelet count Improved 81K I spent a total of 25 minutes on the date of service in preparation, delivery, and documentation of the care provided to this patient, excluding any time spent in the performance of separately billed services. Luigi Donovan, Subjective Patient resting in bed. Feeling better today. SOB and cough improving. Denies chest pain. Edema remains present, but patient reports edema improving each day. Good urine outputs over the last 24 hours. Review of Systems Review of Systems: All systems reviewed & are unremarkable except as noted in HPI & below Physical Exam Constitutional: + ill appearing; no acute distress Neck: normal visual inspection and trachea midline Respiratory: no respiratory distress Auscultation: + rales, + rhonchi and + wheezes Cardiovascular: Rate/Rhythm: regular rate and regular rhythm Heart Sounds: normal S1, normal S2 and + murmur (diminished heart sounds ) Vessels: + JVD (difficult to assess ) Extremities: + pedal edema (Trace BL) and + edema (+2 BLLE pitting edema ) Chest (Breasts): Chest: + pacemaker Gastrointestinal (Abdomen): normal bowel sounds, soft, nontender, no hepatosplenomegaly Psychiatric: Orientation: alert and oriented x 3 Results & Data Vital Signs (Past 12 Hours) Vital Signs Temp Pulse Pulse Resp BP Pulse Ox O2 Del Method 06/03/23 11:49 37.2 C 59 L 17 106/63 93 Room Air 06/03/23 08:00 60 06/03/23 08:00 Room Air 06/03/23 07:47 36.5 C 60 18 94/52 L 92 Room Air 06/03/23 02:19 36.8 C 59 L 16 110/66 92 Room Air Laboratory Results Cardiac Enzymes 06/03/23 Range/Units 05:53 AST 52 H (13-39) U/L CBC 06/03/23 Range/Units 05:53 WBC 13.50 H (4.8-10.8) K/ul RBC 3.72 L (4.20-5.40) M/uL Hgb 10.6 L (12.0-16.0) g/dl Hct 33.1 L (37.0-47.0) % Plt Count 81 L (130-400) K/uL Comprehensive Metabolic Panel 06/03/23 Range/Units 05:53 Sodium 135 L (136-145) mmol/L Potassium 4.1 (3.5-5.1) mmol/L Chloride 102 (98-107) mmol/L Carbon Dioxide 24 (21-32) mmol/L BUN 83 H (6-23) mg/dl Creatinine 2.00 H (0.6-1.2) mg/dl Glucose 98 (70-99(Fasting)) mg/dl Calcium 8.3 L (8.6-10.3) mg/dl AST 52 H (13-39) U/L ALT 88 H (7-52) U/L Alkaline Phosphatase 214 H (34-104) U/L Total Protein 5.4 L (6.0-8.3) gm/dl Albumin 2.9 L (3.4-5.0) gm/dl Intake and Output 06/02/23 06/03/23 06/03/23 22:59 06:59 14:59 Intake Total 850 / 850 Output Total 650 / 1700 1050 / 1700 Balance -650 / -850 -200 / -850 Intake: Oral 850 / 850 Output: Urine Amount (Catheter) 650 / 1700 1050 / 1700 Red/Indwelling 650 / 1700 1050 / 1700 Other: Other Intake Source sips Weight 103.3 kg Weight Measurement Method Built in [facility] Diagnostic Findings Telemetry reviewed: Paced in the 60's, occ PVC's Echo: LVEF 25-30% with severe diffuse left ventricular hypokinesis with focal hypokinesis of the basal inferior wall. Aortic valve prosthesis gradients stable. No regurgitation. No evidence of valvular vegetation however quality was limited. Repeat blood cultures 06/02 x2 - No growth (prelim) after 24 hours Medications Administered Current Inpatient Medications Acetaminophen (Acetaminophen 325 Mg Tab) 650 mg PO Q4H PRN PRN Reason: Pain or Fever Stop: 06/28/23 04:34 Last Admin: 06/02/23 06:30 Dose: 650 mg Acetaminophen (Acetaminophen 500 Mg Tab) 500 mg PO HS LIBBY Stop: 06/28/23 20:59 Last Admin: 06/02/23 20:41 Dose: 500 mg Ascorbic Acid (Ascorbic Acid 500 Mg Tab) 500 mg PO DAILY LIBBY Stop: 06/28/23 08:59 Last Admin: 06/03/23 09:35 Dose: 500 mg Aspirin (Aspirin 81 Mg Chew) 81 mg PO QAM LIBBY Stop: 06/28/23 08:59 Last Admin: 06/03/23 09:37 Dose: 81 mg Atorvastatin Calcium (Atorvastatin 40 Mg Tab) 40 mg PO HS LIBBY Stop: 06/28/23 20:59 Last Admin: 06/02/23 20:43 Dose: 40 mg Betaxolol HCl (Betaxolol Hcl 0.5% Op 5 Ml Btl) 1 drops OPL BID LIBBY Stop: 06/28/23 08:59 Last Admin: 06/03/23 09:37 Dose: 1 drops Clopidogrel Bisulfate (Clopidogrel Bisulfate 75 Mg Tab) 75 mg PO QAM LIBBY Stop: 06/28/23 08:59 Last Admin: 06/03/23 09:35 Dose: 75 mg Cyanocobalamin (Cyanocobalamin (B-12) 500 Mcg Tablet) 1,500 mcg PO QPM LIBBY Stop: 06/28/23 20:59 Last Admin: 06/02/23 20:43 Dose: 1,500 mcg Dextrose (Dextrose 50% 50 Ml Syringe) 25 - 50 ml IV UD PRN; Protocol PRN Reason: Hypoglycemia Protocol Stop: 06/28/23 04:34 Docusate Sodium (Docusate Sodium 100 Mg Cap) 100 mg PO BID LIBBY Stop: 07/02/23 08:59 Last Admin: 06/03/23 09:34 Dose: 100 mg Erythromycin (Erythromycin Op Oint 5 Mg/Gm 3.5 Gm Tube) 1 appln OPB QID LIBBY Stop: 06/08/23 08:59 Last Admin: 06/03/23 09:37 Dose: 1 appln Ferrous Sulfate (Ferrous Sulfate 325 Mg Tab) 325 mg PO QDL LIBBY Stop: 06/28/23 11:29 Last Admin: 06/03/23 09:34 Dose: 325 mg Fluconazole (Fluconazole 100 Mg Tab) 300 mg PO Q24H LIBBY Stop: 06/16/23 12:59 Last Admin: 06/02/23 13:05 Dose: 300 mg Folic Acid (Folic Acid 1 Mg Tab) 1 mg PO QAM LIBBY Stop: 06/28/23 08:59 Last Admin: 06/03/23 09:35 Dose: 1 mg Gabapentin (Gabapentin 300 Mg Cap) 300 mg PO BID LIBBY Stop: 06/28/23 08:59 Last Admin: 06/03/23 09:34 Dose: 300 mg Glucagon (Glucagon For Inj 1 Mg Vial) 1 mg SQ UD PRN; Protocol PRN Reason: Hypoglycemia Protocol Stop: 06/28/23 04:34 Glucose (Glucose 10 Tab/Tube) 4 - 8 tab PO UD PRN; Protocol PRN Reason: Hypoglycemia Treatment Stop: 06/28/23 04:34 Glucose (Glucose 40% Gel 15 Gm Tube) 15 - 30 gm PO UD PRN; Protocol PRN Reason: Hypoglycemia Protocol Stop: 06/28/23 04:34 Heparin Sodium (Porcine) (Heparin Sod 5,000 Unit/0.5 Ml Vial) 5,000 units SQ Q8 LIBBY Stop: 06/30/23 15:24 Last Admin: 06/03/23 05:27 Dose: 5,000 units Hydroxychloroquine Sulfate (Hydroxychloroquine Sulfate 200 Mg Tab) 400 mg PO HS LIBBY Stop: 06/28/23 20:59 Last Admin: 06/02/23 20:44 Dose: 400 mg Ertapenem 500 mg/ Syringe 5 mls @ 2 mls/min IV Q24H LIBBY Stop: 06/08/23 20:59 Last Admin: 06/02/23 20:42 Dose: 2 mls/min Sodium Chloride (Nss) 1,000 mls @ 15 mls/hr IV .Q24H LIBBY Stop: 06/29/23 12:59 Last Admin: 06/02/23 13:04 Dose: Not Given Bumetanide 2 mg/ Syringe 8 mls @ 4 mls/min IV [id number] LIBBY Stop: 07/03/23 08:59 Last Admin: 06/03/23 09:34 Dose: 4 mls/min Insulin Aspart (Insulin Aspart Per Unit Charge) 0 units SC ACHS LIBBY Stop: 06/28/23 16:29 Last Admin: 06/03/23 09:42 Dose: 3 units Insulin Glargine (Lantus Per Unit Charge) 0 units SC BID [facility]; Protocol Stop: 07/03/23 08:59 Last Admin: 06/03/23 09:37 Dose: Not Given Latanoprost (Latanoprost 0.005% Op Soln 2.5 Ml Btl) 1 drops OPB PM [facility] Stop: 06/28/23 20:59 Last Admin: 06/02/23 20:42 Dose: 1 drops Levothyroxine Sodium (Levothyroxine Sodium 125 Mcg Tablet) 125 mcg PO DAILYBB [facility] Stop: 06/28/23 06:29 Last Admin: 06/03/23 05:28 Dose: 125 mcg Lorazepam (Lorazepam 0.5 Mg Tab) 0.5 mg PO TID PRN PRN Reason: Anxiety Stop: 06/28/23 04:34 Magnesium Oxide (Magnesium Oxide 400 Mg Tab) 400 mg PO QAM [facility] Stop: 06/28/23 08:59 Last Admin: 06/03/23 09:34 Dose: 400 mg Metoprolol Succinate (Metoprolol Succ 25mg Ext Rel Tab) 12.5 mg PO BID [facility] Stop: 06/28/23 08:59 Last Admin: 06/03/23 09:36 Dose: 12.5 mg Miscellaneous (Carbohydrates For Hypoglycemia ) 15 - 30 gm PO UD PRN PRN Reason: Hypoglycemia Protocol Stop: 06/28/23 04:34 Miscellaneous Information (Pharmacy Glycemic Mgmt Consult) 1 each N/A UD PRN PRN Reason: Consult Stop: 06/28/23 04:34 Morphine Sulfate (Morphine Sulfate 2 Mg/Ml Carp) 2 mg IV Q3H PRN; Protocol PRN Reason: Pain Stop: 06/12/23 04:34 Last Admin: 06/02/23 20:42 Dose: 2 mg Multivitamins/Folic Acid/Vitamin C (Multivitamin Chewable Tab) 1 tab PO QAM [facility] Stop: 06/28/23 08:59 Last Admin: 06/03/23 09:35 Dose: 1 tab Nitroglycerin (Nitroglycerin Sl 0.4 Mg/Tab Tab) 0.4 mg SL Q5M PRN PRN Reason: Chest Pain Stop: 06/28/23 04:34 Ondansetron HCl (Ondansetron Inj 2 Mg/Ml 2 Ml Vial) 4 mg IV Q6H PRN PRN Reason: Nausea Stop: 06/28/23 04:34 Last Admin: 06/02/23 08:26 Dose: 4 mg Pantoprazole Sodium (Pantoprazole 40 Mg Tab) 40 mg PO DAILY [facility] Stop: 06/28/23 08:59 Last Admin: 06/03/23 09:34 Dose: 40 mg Polyethylene Glycol (Polyethylene (Miralax) 17 Gm Pack) 17 gm PO DAILY PRN PRN Reason: Constipation Stop: 07/02/23 07:46 Prednisone (Prednisone 5 Mg Tab) 5 mg PO QAM [facility] Stop: 06/28/23 08:59 Last Admin: 06/03/23 09:35 Dose: 5 mg Sertraline HCl (Sertraline Hcl 50 Mg Tablet) 25 mg PO DAILY [facility] Stop: 06/28/23 08:59 Last Admin: 06/03/23 09:35 Dose: 25 mg (1) Sepsis Sepsis acute organ dysfunction status: unspecified Sepsis type: sepsis due to unspecified organism Qualified Code(s): A41.9 - Sepsis, unspecified organism (4) Aortic stenosis Cardiac valve disease etiology: nonrheumatic Qualified Code(s): I35.0 - Nonrheumatic aortic (valve) stenosis
--- NOTE | 2023-06-03 13:49 | Pharmacy Report ---
Pharmacy Glycemic Short Note 2 - Date of Service June 03, 2023 - Glycemic Short BSG Results (Last 24 hours): 06/02/23 06/02/23 06/03/23 17:19 20:22 05:53 Glucose 98 POC Glucose 138 H 153 H 06/03/23 06/03/23 08:05 12:09 Glucose POC Glucose 105 H 128 H OUTPATIENT ANTIDIABETIC REGIMEN: * Lantus 33 units QAM * A1c 7.3% 05/29/23 ASSESSMENT: 06/03/23: * Orquidea received 7 units of insulin yesterday (5 were basal) * Fasting BSG slightly below goal range, appears PO intake is improving per nursing documentation, will add a basal scale based on BSGs twice daily to cover if BSGs out of goal range * Continue current Novolog parameters 06/02/23 * Orquidea received 5 units of basal insulin yesterday * All BSGs below goal range yesterday, fasting BSG this AM also below goal range, will hold off on basal insulin for now until BSGs increase and PO intake improves * Continue current Novolog parameters as they appear to be addressing her glycemic needs. 06/01/23 * BSGs had been very well-controlled, ranging 100-151 mg/dL yesterday * Received 25 units of insulin (22 units of which were basal) * Fasting BSG POC of 72 mg/dL this morning - will decrease basal insulin today * POD #2 s/p cystoscopy w/ stent placement * Continues on IV ertapenem and prednisone 5 mg PO daily 05/30/23: * Patient admitted with kidney stones/sepsis, currently NPO for cystoscopy, b/l retrograde pyelogram and possible ureteral stent insertion/exchange * SCr does continue to trend upward 1.82 --> 2.88 * BSGs have been stable, will continue with 11 units of lantus BID, novolog cF 35, cr 12 (this is based of home insulin dose) PLAN FOR INPATIENT GLYCEMIC CONTROL: * Basal insulin * HOLD until BSGs rise and PO intake improves * Bolus insulin * NovoLog per scale ACHS or Q6hrs while NPO * Goal Range: Low 110 mg/dL - High 140 mg/dL * Correction Factor: 35 mg/dL/unit * Nutritional / Prandial insulin per carb ratio of 1 unit per 12 grams CHO consumed
--- NOTE | 2023-06-03 17:06 | Hospitalist Progress Note ---
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 Cholecystectomy clips. Atrophy of the RIGHT kidney with a right-sided nerve ureteral stent. Bilateral renal cysts. Hysterectomy. Diverticulosis, without acute diverticulitis. No small bowel obstruction. No free intraperitoneal air. --S/p Cystoscopy with bilateral retrograde pyelogram, left ureteral dilation, Left Ureteral Stent Placement, Right Ureteral Stent Exchange by Urology on 05/30/23 by -- Blood culture from 05/28: Gram-positive cocci in clusters--Likely Contamination --Repeat Blood Cx: 05/30: Growing yeast, Soniya: Likely transient from urological procedure/instrumentation -- Urine culture 05/28: 3 types of organisms. (Likely contaminant) -- Repeat urine culture 05/30: Soniya --ECHO: Mild concentric LVH. Severe diffuse left ventricular hypokinesis with focal hypokinesis in the basal inferior wall. EF 25 to 30%. Left atrium is mildly dilated. Gradient is normal for this prosthetic aortic valve. No significant prosthetic regurgitation. Severe mitral annular calcification. No evidence of valvular vegetation within the limitations of the imaging modality. Compared to prior echo in December 2022, left ventricular ejection fraction 30% at that time. -- Appreciate urology input, needs follow-up with urology on discharge --Appreciate ID input: -- Continue IV ertapenem. --IV Caspofungin changed to fluconazole Final recommendations to be followed with ID. Will need 2-week course of antifungal treatment from clearance of blood cultures Persistent leukocytosis (also on prednisone). Thrombocytopenia improving Repeat blood cultures showed no growth Continue current medications for now URI --CXR:No acute cardiopulmonary findings. No change in appearance of the chest. -- BioFire positive for RSV Saturating well on room air Conservative management Clinically improving H/O CAD s/p stent H/O systolic and diastolic CHF ECHO as above Troponin elevation likely demand ischemia in setting of worsening renal function, CHF, volume overload Appreciate Cardiology Input Continue Aspirin, Plavix and statin and metoprolol ALONA on CKD stage III Likely ATN Baseline creatinine around 1 Cr 2.0 today Hold p.o. diuretics Continue IV Bumex Monitor volume status, renal function Avoid nephrotoxic agents as able Volume status slowly improving PAF Tachybradycardia syndrome S/p pacemaker On Metoprolol Not on anticoagulation due to GI bleed History of TIA On aspirin and Plavix and statin Obstructive sleep apnea On CPAP nightly History of rheumatoid arthritis Continue Plaquenil and prednisone 5 mg daily Hypothyroidism Continue levothyroxine DM II HbA1c 7.3 Continue insulin/Sliding scale Monitor H/O Hepatocellular carcinoma S/P embolization Currently following with heme-onc Thrombocytopenia Chronic monitor Severe aortic stenosis S/p TAVR DVT Px: Heparin SQ CODE STATUS full code Admission and Anticipated Discharge Date Admission Date: May 29, 2023 Subjective Patient is seen and examined at bedside Feels very tired today Admits to have minimal cough Abdominal pain is better No other complaints Reports poor sleep overnight Denies any chest pain, dyspnea, nausea, vomiting, dizziness Review of Systems Review of Systems: All systems reviewed & are unremarkable except as noted in Subjective Physical Exam Physical Exam: Physical Exam: Vitals signs as noted above General Appearance:Obese, no apparent distress Head: normocephalic, Atraumatic Eyes: eyelids remains closed, blind Neck: supple, Trachea midline Respiratory/Chest: Decreased breath sounds, basal crackles, No accessory muscle use Cardiovascular: S1, S2, No murmur Abdomen/GI:Soft, RLQ mild tender, Bowel sounds present Extremities/Musculoskeletal:normal inspection, 2+ Pedal edema Neurologic/Psych:AAOX3, grossly no focal neurological deficits Skin: normal color, warm Results & Data Results & Data Vital Signs (Past 12 Hours) Vital Signs Temp Pulse Pulse Resp BP Pulse Ox O2 Del Method 06/03/23 15:39 36.7 C 62 18 111/66 95 Room Air 06/03/23 11:49 37.2 C 59 L 17 106/63 93 Room Air 06/03/23 08:00 60 06/03/23 08:00 Room Air 06/03/23 07:47 36.5 C 60 18 94/52 L 92 Room Air Laboratory Results Short CBC 06/03/23 Range/Units 05:53 WBC 13.50 H (4.8-10.8) K/ul Hgb 10.6 L (12.0-16.0) g/dl Hct 33.1 L (37.0-47.0) % Plt Count 81 L (130-400) K/uL BMP 06/03/23 05:53 Sodium 135 L Potassium 4.1 Chloride 102 Carbon Dioxide 24 BUN 83 H Creatinine 2.00 H Glucose 98 Calcium 8.3 L Liver Function 06/03/23 Range/Units 05:53 Total Bilirubin 1.0 (0.2-1.0) mg/dl AST 52 H (13-39) U/L ALT 88 H (7-52) U/L Alkaline Phosphatase 214 H (34-104) U/L Albumin 2.9 L (3.4-5.0) gm/dl (1) Sepsis Sepsis acute organ dysfunction status: unspecified Sepsis type: sepsis due to unspecified organism Qualified Code(s): A41.9 - Sepsis, unspecified organism
--- NOTE | 2023-06-03 18:11 | Nephrology Progress Note ---
Date of Service June 03, 2023 Assessment & Plan (1) ALONA (acute kidney injury): Plan: no longer oliguric and improving stage 2 acute kidney injury of multifactorial etiology including ATN from sepsis and obstructive uropathy, the latter relieved on 05/30. Baseline creatinine is 1.2. Creatinine peaked at 2.9 after big overnight jump on am 05/30; today down to 2.2. Patient is being treated for urosepsis on ertapenem; for c albicans candidemia on fluconazole. CT abdomen showed atrophy of the right kidney with a right ureteral stent w/ partial obstructive left renal stone measuring 8 mm. s/p 05/30 L ureteral stent and R stent exchange. Diagnosed w/ RSV 05/31 -continue bumex 2 mg tid IV and continue matute for now; had considered lowering diuretic to bid 17 but breathing worse today on exam though no sx -cont to hold aldactone -f/u cardiology recs -Daily BMP -Avoid contrast (2) Kidney stones: Plan: Patient with obstructive kidney stone on the left side. s/p high risk stent placement. originally deemed a high risk surgical candidate by urology but ultimately w/ procedure above. Will continue antibiotics and monitor. -Continue to monitor renal function, input output daily (3) Soniya albicans infection: Plan: changed from caspo > fluconazole; ID has evaluated her; recommends repeat tte; f/u pending repeat cxs; monitor transaminases Admission and Anticipated Discharge Date Admission Date: May 29, 2023 Subjective states she's feeling better but wtill quite tired. breathing ok she states; no uncontrolled pain still minimal po Review of Systems 2 Review of Systems: All systems reviewed & are unremarkable except as noted in Subjective Physical Exam 2 Constitutional: well developed, well nourished, + obese and + lethargic Eyes: + eyelid abnormality (violaceous eyelids which she holds closed; blind) ENMT: Ears: no external ear abnormality Nose: no external nose abnormality Mouth: + dry oral mucous membranes Neck: no nuchal rigidity Respiratory: normal respiratory effort, + cough ( frequent and less productive) and able to speak in complete sentences; no labored breathing A uscultation: + diminished lung sounds (anterior exam), + crackles (bibasilar crackles) and + wheezes Cardiovascular: Rate/Rhythm: regular rate and regular rhythm Extremities: + edema (2+ dependent) Gastrointestinal (Abdomen): Inspection/Auscultation: abdomen normal to inspection (massive pannus) and normal bowel sounds Percussion/Palpation: a bdomen soft; abdomen nontender Musculoskeletal: Extremities: strength 5/5 throughout Skin: no rashes, warm and dry Psychiatric: Orientation: oriented x 3 Results & Data Vital Signs (Past 12 Hours) Vital Signs Temp Pulse Pulse Resp BP Pulse Ox O2 Del Method 06/03/23 15:39 36.7 C 62 18 111/66 95 Room Air 06/03/23 11:49 37.2 C 59 L 17 106/63 93 Room Air 06/03/23 08:00 60 06/03/23 08:00 Room Air 06/03/23 07:47 36.5 C 60 18 94/52 L 92 Room Air Laboratory Results 06/03/23 05:53 06/03/23 05:53
[2023-06-04 08:08] LABS: Hematocrit (blood only) 33.5 % (37.0-47.0); Hemoglobin 10.7 g/dl (12.0-16.0); Mean Corpuscular Hemoglobin 28.2 pg (25.0-34.0); Mean Corpuscular Hgb Conc 31.9 g/dL (32.0-36.0); Mean Corpuscular Volume 88.4 fL (80.0-100.0); Mean Platelet Volume 11.7 fL (9.4-12.4); Platelet Count 99 K/uL (130-400); RDW Standard Deviation 64.3 fL (36.4-46.3); Red Blood Count 3.79 M/uL (4.20-5.40); White Blood Count 15.98 K/ul (4.8-10.8)
[2023-06-04 08:23] LABS: Albumin Level 2.7 gm/dl (3.4-5.0); BUN Creatinine Ratio 46.4 (10-20); Calcium 8.6 mg/dl (8.6-10.3); Creatinine Clr Calc Pharmacy 32.4 ml/min; Est GFR (Non-African American) 27.6 ml/min; Globulin 2.8 gm/dl (2.5-4.0); Potassium 4.1 mmol/L (3.5-5.1); Total Protein 5.5 gm/dl (6.0-8.3)
--- NOTE | 2023-06-04 09:39 | XRay Report ---
SINGLE VIEW CHEST CLINICAL HISTORY: Leukocytosis. FINDINGS: An AP, portable, upright chest radiograph is compared to study dated 05/28/2023. A 2-lead ca rdiac pacemaker is unchanged in position. There is evidence of previous cardiac valve surgery. The he art is enlarged noting atherosclerotic calcification of the thoracic aorta. The pulmonary vasculature is noncongestive. Chronic interstitial thickening is similar to previous. There is bibasilar scarrin g/atelectasis. No airspace consolidation or large pleural effusion is identified. No pneumothorax is seen. The skeletal structures are osteopenic. The bony thorax is grossly intact. Calcific tendinopath y is noted in the left shoulder. IMPRESSION: 1. Cardiomegaly and cardiac pacemaker without radiographic evidence of congestive failure. 2. No airspace consolidation or large pleural effusion is identified. ACT 112: Negative or not required by law. Electronically signed by: Familia Morales M.D. 06/04/2023 9:38 AM
--- NOTE | 2023-06-04 11:10 | Nephrology Progress Note ---
Date of Service June 04, 2023 Assessment & Plan Admission and Anticipated Discharge Date Admission Date: May 29, 2023 Subjective Assessment & Plan (1) ALONA (acute kidney injury): Plan: no longer oliguric and improving acute kidney injury from ATN with sepsis and obstructive uropathy. S/p Stent on 05/30. Baseline creatinine is 1.2. Creatinine peaked at 2.9 and now trending down to 1.7. urine 1600 ml with Bumex iv. Patient is being treated for urosepsis on ertapenem; for c albicans candidemia on fluconazole. CT abdomen showed atrophy of the right kidney with a right ureteral stent w/ partial obstructive left renal stone measuring 8 mm. s/p 05/30 L ureteral stent and R stent exchange. Diagnosed w/ RSV 05/31 continue bumex 2 mg tid IV and continue mattue for now. cont to hold aldactone f/u cardiology recs Daily BMP Avoid contrast (2) Kidney stones: Plan: Patient with obstructive kidney stone on the left side. s/p high risk stent placement. originally deemed a high risk surgical candidate by urology but ultimately w/ procedure above. Will continue antibiotics and monitor. Continue to monitor renal function, input output daily (3) Soniya albicans infection: Plan: changed from caspo > fluconazole; ID has evaluated her; recommends repeat tte; f/u pending repeat cxs; monitor transaminases Above Plan Discussed with primary team. Subjective making urine 1600--1700 ml last 2 days on iv bumex. Feels weak. on Room air. No new issues Review of Systems Review of Systems: All systems reviewed & are unremarkable except as noted in Subjective Physical Exam Constitutional: well developed, well nourished, + obese and + lethargic Eyes: + eyelid abnormality (violaceous eyelids which she holds closed; blind) ENMT: Ears: no external ear abnormality Nose: no external nose abnormality Mouth: + dry oral mucous membranes Neck: no nuchal rigidity Respiratory: normal respiratory effort, + cough ( frequent and less productive) and able to speak in complete sentences; no labored breathing Auscultation: + diminished lung sounds (anterior exam), + crackles (bibasilar crackles) and + wheezes Cardiovascular: Rate/Rhythm: regular rate and regular rhythm Extremities: + edema (2+ dependent) Gastrointestinal (Abdomen): Inspection/Auscultation: abdomen normal to inspection (massive pannus) and normal bowel sounds Percussion/Palpation: abdomen soft; abdomen nontender Musculoskeletal: Extremities: strength 5/5 throughout Skin: no rashes, warm and dry Psychiatric: Orientation: oriented x 3 Results & Data Vital Signs (Past 12 Hours) Vital Signs Temp Pulse Pulse Resp BP Pulse Ox O2 Del Method 06/04/23 09:00 Room Air 06/04/23 08:29 60 06/04/23 08:21 36.6 C 60 18 104/54 L 96 Room Air 06/04/23 04:57 36.9 C 59 L 20 117/73 94 Room Air 06/04/23 00:14 36.5 C 60 20 109/69 93 Room Air
--- NOTE | 2023-06-04 12:59 | Cardiology Progress Note ---
Date of Service June 04, 2023 Assessment & Plan (1) Sepsis: (2) Fungemia: (3) Elevated troponin: (4) HFrEF (heart failure with reduced ejection fraction): (5) S/P TAVR (transcatheter aortic valve replacement): (6) Tachy-wilfrido syndrome: (7) Pacemaker: (8) RSV (respiratory syncytial virus infection): Plan Supportive care as indicated for RSV Antibiotics and antifungal as per infectious disease. Caspofungin changed to fluconazole. Continue Bumex 2 mg IV twice daily. Nephrology input appreciated. Monitor fluid balance, daily weight, GFR, and electrolytes. Continue dual antiplatelet therapy with aspirin and clopidogrel given TAVR and LAD stent- monitor platelet count Continue metoprolol 12.5 mg twice daily, atorvastatin 40 mg daily Transthoracic echocardiogram this admission revealed stable valvular structure and function, aortic valve prosthesis not well-visualized, ongoing severe left ventricular systolic dysfunction with ejection fraction in the range of 25 to 30%. At present she is not a candidate for CONSTANTINE given respiratory status with CHF and RSV. I spent a total of 45 minutes on the date of service in preparation, delivery, and documentation of the care provided to this patient, excluding any time spent in the performance of separately billed services. Admission and Anticipated Discharge Date Admission Date: May 29, 2023 Subjective Patient seen and examined at the bedside. Resting comfortably. Denies chest pain or shortness of breath at rest. Cough and expiratory wheezing noted. Scant sputum production. Creatinine trending downward. Fluid balance -935 cc. Review of Systems Review of Systems: All systems reviewed & are unremarkable except as noted in Subjective Physical Exam Constitutional: + ill appearing and + morbidly obese Respiratory: no respiratory distress and no labored breathing Auscultation: + rhonchi and + wheezes Cardiovascular: Rate/Rhythm: regular rate and regular rhythm Heart Sounds: normal S1 and normal S2; no murmur Vessels: radial pulses present; no JVD and no carotid bruit Extremities: no edema Gastrointestinal (Abdomen): Inspection/Auscultation: abdomen normal to i nspection and normal bowel sounds; abdomen not distended Percussion/Palpation: abdomen soft; abdomen nontender, no guarding and abdomen not rigid Neurologic: CN's II-XI intact bilaterally and moves all extremities Results & Data Vital Signs (Past 12 Hours) Vital Signs Temp Pulse Pulse Resp BP Pulse Ox O2 Del Method 06/04/23 11:31 36.5 C 67 18 107/72 93 Room Air 06/04/23 09:00 Room Air 06/04/23 08:29 60 06/04/23 08:21 36.6 C 60 18 104/54 L 96 Room Air 06/04/23 04:57 36.9 C 59 L 20 117/73 94 Room Air Laboratory Results Cardiac Enzymes 06/04/23 Range/Units 07:47 AST 42 H (13-39) U/L CBC 06/04/23 Range/Units 07:46 WBC 15.98 H (4.8-10.8) K/ul RBC 3.79 L (4.20-5.40) M/uL Hgb 10.7 L (12.0-16.0) g/dl Hct 33.5 L (37.0-47.0) % Plt Count 99 L (130-400) K/uL Comprehensive Metabolic Panel 06/04/23 Range/Units 07:47 Sodium 137 (136-145) mmol/L Potassium 4.1 (3.5-5.1) mmol/L Chloride 103 (98-107) mmol/L Carbon Dioxide 27 (21-32) mmol/L BUN 83 H (6-23) mg/dl Creatinine 1.79 H (0.6-1.2) mg/dl Glucose 92 (70-99(Fasting)) mg/dl Calcium 8.6 (8.6-10.3) mg/dl AST 42 H (13-39) U/L ALT 67 H (7-52) U/L Alkaline Phosphatase 222 H (34-104) U/L Total Protein 5.5 L (6.0-8.3) gm/dl Albumin 2.7 L (3.4-5.0) gm/dl Intake and Output 06/03/23 06/04/23 06/04/23 22:59 06:59 14:59 Intake Total 250 / 690 200 / 690 Output Total 675 / 1625 400 / 1625 Balance -425 / -935 -200 / -935 Intake: Oral 250 / 690 200 / 690 Output: Urine Amount (Catheter) 5 / 1625 400 / 1625 Red/Indwelling / 162 400 / 1625 Other: Weight 104.9 kg Weight Measurement Method Built in [facility] (1) Sepsis Sepsis acute organ dysfunction status: unspecified Sepsis type: sepsis due to unspecified organism Qualified Code(s): A41.9 - Sepsis, unspecified organism
--- NOTE | 2023-06-04 15:30 | Hospitalist Progress Note ---
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 Cholecystectomy clips. Atrophy of the RIGHT kidney with a right-sided nerve ureteral stent. Bilateral renal cysts. Hysterectomy. Diverticulosis, without acute diverticulitis. No small bowel obstruction. No free intraperitoneal air. --S/p Cystoscopy with bilateral retrograde pyelogram, left ureteral dilation, Left Ureteral Stent Placement, Right Ureteral Stent Exchange by Urology on 05/30/23 by -- Blood culture from 05/28: Gram-positive cocci in clusters--Likely Contamination --Repeat Blood Cx: 05/30: Growing yeast, Soniya: Likely transient from urological procedure/instrumentation -- Urine culture 05/28: 3 types of organisms. (Likely contaminant) -- Repeat urine culture 05/30: Soniya --ECHO: Mild concentric LVH. Severe diffuse left ventricular hypokinesis with focal hypokinesis in the basal inferior wall. EF 25 to 30%. Left atrium is mildly dilated. Gradient is normal for this prosthetic aortic valve. No significant prosthetic regurgitation. Severe mitral annular calcification. No evidence of valvular vegetation within the limitations of the imaging modality. Compared to prior echo in December 2022, left ventricular ejection fraction 30% at that time. -- Appreciate urology input, needs follow-up with urology on discharge --Appreciate ID input: -- Continue IV ertapenem. --IV Caspofungin changed to fluconazole Final recommendations to be followed with ID. Will need 2-week course of antifungal treatment from clearance of blood cultures Persistent leukocytosis (also on prednisone). Thrombocytopenia improving Repeat blood cultures from 06/02/23:no growth CXR today showed no signs of pneumonia, pleural effusion Will discuss with ID on Tuesday for final recommendations URI --CXR:No acute cardiopulmonary findings. No change in appearance of the chest. -- BioFire positive for RSV No pneumonia on repeat imaging Saturating well on room air Conservative management Clinically improved H/O CAD s/p stent H/O systolic and diastolic CHF ECHO as above Troponin elevation likely demand ischemia in setting of worsening renal function, CHF, volume overload Appreciate Cardiology Input Continue Aspirin, Plavix and statin and metoprolol ALONA on CKD stage III Likely ATN Baseline creatinine around 1 Cr 1.7 today Hold p.o. diuretics Continue IV Bumex per nephrology Monitor volume status, renal function Avoid nephrotoxic agents as able Volume status slowly improving PAF Tachybradycardia syndrome S/p pacemaker On Metoprolol Not on anticoagulation due to GI bleed History of TIA On aspirin and Plavix and statin Obstructive sleep apnea On CPAP nightly History of rheumatoid arthritis Continue Plaquenil and prednisone 5 mg daily Hypothyroidism Continue levothyroxine DM II HbA1c 7.3 Continue insulin/Sliding scale Monitor H/O Hepatocellular carcinoma S/P embolization Currently following with heme-onc Thrombocytopenia Chronic monitor Severe aortic stenosis S/p TAVR DVT Px: Heparin SQ CODE STATUS full code Admission and Anticipated Discharge Date Admission Date: May 29, 2023 Subjective Patient is seen and examined at bedside Resting comfortably No new complaints Cough improved Denies any significant abdominal pain Denies any chest pain, dyspnea, nausea, vomiting, dizziness CXR today showed no signs of pneumonia, large pleural effusion Review of Systems Review of Systems: All systems reviewed & are unremarkable except as noted in Subjective Physical Exam Physical Exam: Physical Exam: Vitals signs as noted above General Appearance:Obese, no apparent distress Head: normocephalic, Atraumatic Eyes: eyelids remains closed, blind Neck: supple, Trachea midline Respiratory/Chest: Decreased breath sounds, basal crackles, No accessory muscle use Cardiovascular: S1, S2, No murmur Abdomen/GI:Soft, non tender, Bowel sounds present Extremities/Musculoskeletal:normal inspection, 2+ Pedal edema Neurologic/Psych:AAOX3, grossly no focal neurological deficits Skin: normal color, warm Results & Data Results & Data Vital Signs (Past 12 Hours) Vital Signs Temp Pulse Pulse Resp BP Pulse Ox O2 Del Method 06/04/23 11:31 36.5 C 67 18 107/72 93 Room Air 06/04/23 09:00 Room Air 06/04/23 08:29 60 06/04/23 08:21 36.6 C 60 18 104/54 L 96 Room Air 06/04/23 04:57 36.9 C 59 L 20 117/73 94 Room Air Laboratory Results Short CBC 06/04/23 Range/Units 07:46 WBC 15.98 H (4.8-10.8) K/ul Hgb 10.7 L (12.0-16.0) g/dl Hct 33.5 L (37.0-47.0) % Plt Count 99 L (130-400) K/uL BMP 06/04/23 07:47 Sodium 137 Potassium 4.1 Chloride 103 Carbon Dioxide 27 BUN 83 H Creatinine 1.79 H Glucose 92 Calcium 8.6 Liver Function 06/04/23 Range/Units 07:47 Total Bilirubin 1.0 (0.2-1.0) mg/dl AST 42 H (13-39) U/L ALT 67 H (7-52) U/L Alkaline Phosphatase 222 H (34-104) U/L Albumin 2.7 L (3.4-5.0) gm/dl (1) Sepsis Sepsis acute organ dysfunction status: unspecified Sepsis type: sepsis due to unspecified organism Qualified Code(s): A41.9 - Sepsis, unspecified organism
[2023-06-05 07:48] LABS: Hematocrit (blood only) 32.5 % (37.0-47.0); Hemoglobin 10.4 g/dl (12.0-16.0); Mean Corpuscular Hemoglobin 28.4 pg (25.0-34.0); Mean Corpuscular Volume 88.8 fL (80.0-100.0); Mean Platelet Volume 11.2 fL (9.4-12.4); Platelet Count 96 K/uL (130-400); RDW Coefficient of Variation 21.1 % (11.5-14.5); RDW Standard Deviation 66.6 fL (36.4-46.3); Red Blood Count 3.66 M/uL (4.20-5.40); White Blood Count 13.51 K/ul (4.8-10.8)
[2023-06-05 08:05] LABS: Albumin Level 2.7 gm/dl (3.4-5.0); BUN Creatinine Ratio 48.8 (10-20); Calcium 8.6 mg/dl (8.6-10.3); Est GFR (African American) 36.7 ml/min; Est GFR (Non-African American) 31.6 ml/min; Globulin 2.8 gm/dl (2.5-4.0); Total Protein 5.5 gm/dl (6.0-8.3)
--- NOTE | 2023-06-05 10:37 | Nephrology Progress Note ---
Date of Service June 05, 2023 Assessment & Plan Admission and Anticipated Discharge Date Admission Date: May 29, 2023 Subjective Assessment & Plan (1) ALONA (acute kidney injury): Plan: no longer oliguric and improving acute kidney injury from ATN with sepsis and obstructive uropathy. S/p Stent on 05/30. Baseline creatinine is 1.2. Creatinine peaked at 2.9 and now trending down to 1.6. urine 1600 ml with Bumex iv. Patient is being treated for urosepsis on ertapenem; for c albicans candidemia on fluconazole. CT abdomen showed atrophy of the right kidney with a right ureteral stent w/ partial obstructive left renal stone measuring 8 mm. s/p 05/30 L ureteral stent and R stent exchange. Diagnosed w/ RSV 05/31 continue bumex 2 mg tid IV and continue matute for now. cont to hold aldactone f/u cardiology recs Daily BMP Avoid contrast (2) Kidney stones: Plan: Patient with obstructive kidney stone on the left side. s/p high risk stent placement. originally deemed a high risk surgical candidate by urology but ultimately w/ procedure above. Will continue antibiotics and monitor. Continue to monitor renal function, input output daily (3) Soniya albicans infection: Plan: changed from caspo > fluconazole; ID has evaluated her; recommends repeat tte; f/u pending repeat cxs; monitor transaminases Subjective making urine 1600 ml last 2 days on iv bumex. Feels weak. No new issues Review of Systems Review of Systems: All systems reviewed & are unremarkable except as noted in Subjective Physical Exam Constitutional: well developed, well nourished, + obese and + lethargic Eyes: + eyelid abnormality (violaceous eyelids which she holds closed; blind) ENMT: Ears: no external ear abnormality Nose: no external nose abnormality Mouth: + dry oral mucous membranes Neck: no nuchal rigidity Respiratory: normal respiratory effort, + cough ( frequent and less productive) and able to speak in complete sentences; no labored breathing Auscultation: + diminished lung sounds (anterior exam), + crackles (bibasilar crackles) and + wheezes Cardiovascular: Rate/Rhythm: regular rate and regular rhythm Extremities: + edema (2+ dependent) Gastrointestinal (Abdomen): Inspection/Auscultation: abdomen normal to inspection (massive pannus) and normal bowel sounds Percussion/Palpation: abdomen soft; abdomen nontender Musculoskeletal: Extremities: strength 5/5 throughout Skin: no rashes, warm and dry Psychiatric: Orientation: oriented x 3 Results & Data Vital Signs (Past 12 Hours) Vital Signs Temp Pulse Pulse Resp BP Pulse Ox O2 Del Method 06/05/23 10:21 Room Air 06/05/23 08:14 36.4 C L 64 16 117/78 97 Room Air 06/05/23 08:00 60 06/05/23 05:17 36.4 C L 60 20 121/63 94 Room Air 06/04/23 23:27 36.4 C L 59 L 20 102/68 94 Room Air 06/04/23 22:46 60
[2023-06-05] MEDS: guaiFENesin 600 MG TABCR PO SCH (13:00)
--- NOTE | 2023-06-05 13:04 | Cardiology Progress Note ---
Date of Service June 05, 2023 Assessment & Plan (1) Sepsis: (2) Fungemia: (3) Elevated troponin: (4) HFrEF (heart failure with reduced ejection fraction): (5) S/P TAVR (transcatheter aortic valve replacement): (6) Tachy-wilfrido syndrome: (7) Pacemaker: (8) RSV (respiratory syncytial virus infection): Plan Supportive care as indicated for RSV. Antibiotics and antifungal as per infectious disease. Caspofungin changed to fluconazole. Continue Bumex 2 mg IV TID. Nephrology input appreciated. Monitor fluid balance, daily weight, GFR, and electrolytes. Continue dual antiplatelet therapy with aspirin and clopidogrel given TAVR and LAD stent- monitor platelet count (stable). Continue metoprolol 12.5 mg twice daily, atorvastatin 40 mg daily Transthoracic echocardiogram this admission revealed stable valvular structure and function, aortic valve prosthesis not well-visualized, ongoing severe left ventricular systolic dysfunction with ejection fraction in the range of 25 to 30%. At present she is not a candidate for CONSTANTINE given respiratory status with CHF and RSV. I spent a total of 40 minutes on the date of service in preparation, delivery, and documentation of the care provided to this patient, excluding any time spent in the performance of separately billed services. Admission and Anticipated Discharge Date Admission Date: May 29, 2023 Subjective Patient seen and examined at the bedside. Continues to note cough with scant sputum production. Coarse breath sounds noted. Edema significantly improved. Creatinine trending downward. Review of Systems Review of Systems: All systems reviewed & are unremarkable except as noted in Subjective Physical Exam Constitutional: + ill appearing and + morbidly obese Respiratory: no respiratory distress and no labored breathing Auscultation: + rhonchi and + wheezes Cardiovascular: Rate/Rhythm: regular rate and regular rhythm Heart Sounds: normal S1 and normal S2; no murmur Vessels: radial pulses present; no JVD and no carotid bruit Extremities: no edema Gastrointestinal (Abdomen): Inspection/Auscultation: abdomen normal to inspection and normal bowel sounds; abdomen not distended Percussion/Palpation: abdomen soft; abdomen nontender, no guarding and abdomen not rigid Neurologic: CN's II-XI intact bilaterally and moves all extremities Results & Data Vital Signs (Past 12 Hours) Vital Signs Temp Pulse Pulse Resp BP Pulse Ox O2 Del Method 06/05/23 10:21 Room Air 06/05/23 08:14 36.4 C L 64 16 117/78 97 Room Air 06/05/23 08:00 60 06/05/23 05:17 36.4 C L 60 20 121/63 94 Room Air Laboratory Results Cardiac Enzymes 06/05/23 Range/Units 07:10 AST 39 (13-39) U/L CBC 06/05/23 Range/Units 07:10 WBC 13.51 H (4.8-10.8) K/ul RBC 3.66 L (4.20-5.40) M/uL Hgb 10.4 L (12.0-16.0) g/dl Hct 32.5 L (37.0-47.0) % Plt Count 96 L (130-400) K/uL Comprehensive Metabolic Panel 06/05/23 Range/Units 07:10 Sodium 139 (136-145) mmol/L Potassium 4.0 (3.5-5.1) mmol/L Chloride 104 (98-107) mmol/L Carbon Dioxide 28 (21-32) mmol/L BUN 78 H (6-23) mg/dl Creatinine 1.60 H (0.6-1.2) mg/dl Glucose 99 (70-99(Fasting)) mg/dl Calcium 8.6 (8.6-10.3) mg/dl AST 39 (13-39) U/L ALT 52 (7-52) U/L Alkaline Phosphatase 215 H (34-104) U/L Total Protein 5.5 L (6.0-8.3) gm/dl Albumin 2.7 L (3.4-5.0) gm/dl Intake and Output 06/04/23 06/05/23 06/05/23 22:59 06:59 14:59 Intake Total 360 / 1650 550 / 1650 Output Total 450 / 1575 675 / 1575 Balance -90 / 75 -125 / 75 Intake: Oral 360 / 1650 550 / 1650 Output: Urine Amount (Catheter) 450 / 1575 675 / 1575 Red/Indwelling 450 / 1575 675 / 1575 Other: Weight 103.6 kg Weight Measurement Method Built in [facility] (1) Sepsis Sepsis acute organ dysfunction status: unspecified Sepsis type: sepsis due to unspecified organism Qualified Code(s): A41.9 - Sepsis, unspecified organism
--- NOTE | 2023-06-05 14:32 | Hospitalist Progress Note ---
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 Cholecystectomy clips. Atrophy of the RIGHT kidney with a right-sided nerve ureteral stent. Bilateral renal cysts. Hysterectomy. Diverticulosis, without acute diverticulitis. No small bowel obstruction. No free intraperitoneal air. --S/p Cystoscopy with bilateral retrograde pyelogram, left ureteral dilation, Left Ureteral Stent Placement, Right Ureteral Stent Exchange by Urology on 05/30/23 by -- Blood culture from 05/28: Gram-positive cocci in clusters--Likely Contamination --Repeat Blood Cx: 05/30: Growing yeast, Soniya: Likely transient from urological procedure/instrumentation -- Urine culture 05/28: 3 types of organisms. (Likely contaminant) -- Repeat urine culture 05/30: Soniya --ECHO: Mild concentric LVH. Severe diffuse left ventricular hypokinesis with focal hypokinesis in the basal inferior wall. EF 25 to 30%. Left atrium is mildly dilated. Gradient is normal for this prosthetic aortic valve. No significant prosthetic regurgitation. Severe mitral annular calcification. No evidence of valvular vegetation within the limitations of the imaging modality. Compared to prior echo in December 2022, left ventricular ejection fraction 30% at that time. -- Appreciate urology input, needs follow-up with urology on discharge --Appreciate ID input: -- Continue IV ertapenem. --IV Caspofungin changed to fluconazole Final recommendations to be followed with ID. Will need 2-week course of antifungal treatment from clearance of blood cultures Persistent leukocytosis (also on prednisone). Thrombocytopenia improving Repeat blood cultures from 06/02/23:no growth Repeat CXR on 06/04 showed no signs of pneumonia, pleural effusion Will discuss with ID tomorrow for final recommendations URI --CXR:No acute cardiopulmonary findings. No change in appearance of the chest. -- BioFire positive for RSV No pneumonia on repeat imaging Saturating well on room air Conservative management Added flutter, Mucinex H/O CAD s/p stent H/O systolic and diastolic CHF ECHO as above Troponin elevation likely demand ischemia in setting of worsening renal function, CHF, volume overload Appreciate Cardiology Input Continue Aspirin, Plavix and statin and metoprolol ALONA on CKD stage III Likely ATN Baseline creatinine around 1 Cr 1.6 today Hold p.o. diuretics Continue IV Bumex per nephrology Monitor volume status, renal function Avoid nephrotoxic agents as able PAF Tachybradycardia syndrome S/p pacemaker On Metoprolol Not on anticoagulation due to GI bleed History of TIA On aspirin and Plavix and statin Obstructive sleep apnea On CPAP nightly History of rheumatoid arthritis Continue Plaquenil and prednisone 5 mg daily Hypothyroidism Continue levothyroxine DM II HbA1c 7.3 Continue insulin/Sliding scale Monitor H/O Hepatocellular carcinoma S/P embolization Currently following with heme-onc Thrombocytopenia Chronic monitor Severe aortic stenosis S/p TAVR DVT Px: Heparin SQ CODE STATUS full code Admission and Anticipated Discharge Date Admission Date: May 29, 2023 Subjective Patient is seen and examined at bedside Subjectively feels well Reports mild congestion of chest Still has some cough Also has some nausea and abdominal discomfort today Denies any chest pain, dyspnea, vomiting, dizziness Review of Systems Review of Systems: All systems reviewed & are unremarkable except as noted in Subjective Physical Exam Physical Exam: Physical Exam: Vitals signs as noted above General Appearance:Obese, no apparent distress Head: normocephalic, Atraumatic Eyes: eyelids remains closed, blind Neck: supple, Trachea midline Respiratory/Chest: Decreased breath sounds, basal crackles, rhonchi, no accessory muscle use Cardiovascular: S1, S2, No murmur Abdomen/GI:Soft, non tender, Bowel sounds present Extremities/Musculoskeletal:normal inspection, 2+ Pedal edema Neurologic/Psych:AAOX3, grossly no focal neurological deficits Skin: normal color, warm Results & Data Results & Data Vital Signs (Past 12 Hours) Vital Signs Temp Pulse Pulse Resp BP Pulse Ox O2 Del Method 06/05/23 10:21 Room Air 06/05/23 08:14 36.4 C L 64 16 117/78 97 Room Air 06/05/23 08:00 60 06/05/23 05:17 36.4 C L 60 20 121/63 94 Room Air Laboratory Results Short CBC 06/05/23 Range/Units 07:10 WBC 13.51 H (4.8-10.8) K/ul Hgb 10.4 L (12.0-16.0) g/dl Hct 32.5 L (37.0-47.0) % Plt Count 96 L (130-400) K/uL BMP 06/05/23 07:10 Sodium 139 Potassium 4.0 Chloride 104 Carbon Dioxide 28 BUN 78 H Creatinine 1.60 H Glucose 99 Calcium 8.6 Liver Function 06/05/23 Range/Units 07:10 Total Bilirubin 1.0 (0.2-1.0) mg/dl AST 39 (13-39) U/L ALT 52 (7-52) U/L Alkaline Phosphatase 215 H (34-104) U/L Albumin 2.7 L (3.4-5.0) gm/dl (1) Sepsis Sepsis acute organ dysfunction status: unspecified Sepsis type: sepsis due to unspecified organism Qualified Code(s): A41.9 - Sepsis, unspecified organism
--- NOTE | 2023-06-05 16:36 | CT Scan Report ---
ABDOMEN AND PELVIS CT WITHOUT CONTRAST CT DOSE: 1394.82 mGy.cm HISTORY: Generalized abdominal pain. TECHNIQUE: Multiaxial CT images of the abdomen and pelvis were performed without contrast. A dose lo wering technique was utilized adhering to the principles of ALARA. COMPARISON STUDY: Abdomen and pelvis CT 05/28/2023. FINDINGS: There are small patchy bibasilar airspace opacities which are new compared to the prior calvin dy. This likely represents a pneumonia. No pneumoperitoneum. No pneumatosis. There is an old mild inf erior endplate compression deformity at L3, unchanged. Degenerative changes again noted within the more mbar spine. No acute fractures. Old, healed bilateral anterior rib fractures again noted. The heart r emains enlarged. Pacemaker wires and an aortic valve prosthesis are again noted. Trace right pleural effusion. Moderate to severe body wall edema most pronounced on the left. Moderate size fat-containin g umbilical hernia, unchanged. Heterogeneous appearance to the anterior segment right hepatic lobe ag ain noted. This may represent posttreatment changes related to the previously described right hepatic lobe lesion. Prior cholecystectomy. Trace ascites. The unenhanced spleen and adrenal glands are unre markable. Mild edema adjacent to the pancreatic tail. Otherwise, the pancreas is unremarkable. No ret roperitoneal lymphadenopathy. Calcified plaque within the normal caliber abdominal aorta. No pelvic l ymphadenopathy. There is a Red catheter within the decompressed bladder. This likely accounts for t he gas within the bladder lumen. Atrophic and malrotated right kidney again noted. Punctate focus of gas within the right renal collecting system is likely due to the right ureteral stent. The right stephanie al stent has been slightly pulled back and now is located within the right renal pelvis. This remains in good position. A left ureteral stent is also in good position. There is a 9 mm stone within the l eft upper pole infundibulum resulting in mild hydronephrosis of the left upper pole collecting system . This remains unchanged. Prior hysterectomy. Mild pelvic floor collapse. Mild perirectal edema. Subo ptimal evaluation for bowel pathology due to the lack of intravenous and oral contrast. However, ther e are no dilated loops of bowel to suggest an obstruction. There are a few jejunal diverticula again noted. No definite bowel wall thickening. IMPRESSION: 1. New small patchy bibasilar airspace opacities which likely represents a pneumonia. 2. Trace right pleural effusion. 3. Moderate to severe body wall edema. This has progressed in the interval. 4. Trace ascites. 5. No definite bowel wall thickening or obstruction. 6. Mild edema adjacent to the pancreatic tail. This is likely due to the patient's diffuse edematous state. A distal pancreatitis is considered less likely but not entirely excluded. Recommend correlati on with pancreatic enzymes. 7. No significant change in the 9 mm obstructing stone within the left upper pole infundibulum result ing in mild hydronephrosis of the left upper pole collecting system. 8. Bilateral ureteral stents appear and good position. 9. Additional findings as described above. ACT 112: Negative or not required by law. Electronically signed by: Nathan Bonilla M.D. 06/05/2023 4:34 PM
[2023-06-05] MEDS: MAGNESIUM SULFATE / D5W 1 GM/100 ML BAG IV ONE (17:35)
--- NOTE | 2023-06-05 20:59 | Communication Note ---
Date of Service: June 05, 2023 Patient with transient VF rhythm on the monitor as per RN. Patient shaky and nauseous during episode. No chest pain, no SOB. EKG as per my interpretation rate 70, NSR, LAD, LAFB, RBBB, T wave abnormalities lateral leads AP Paroxysmal VF PCU transfer to facilitate amiodarone infusion Check electrolytes now
[2023-06-05] MEDS: METOPROLOL TARTRATE 1 MG/ML VIAL IV STA (21:18)
[2023-06-05] MEDS: POTASSIUM CHLORIDE CRTAB 20 MEQ TABCR PO STA (21:18)
[2023-06-05 21:27] LABS: Magnesium 2.1 mg/dl (1.7-2.4)
[2023-06-05] MEDS ORDERED: AMIODARONE IV BOLUS & DRIP IV STA (21:27)
[2023-06-05] MEDS ORDERED: STAT IV Infusion **Titration per Protocol STA (21:27)
[2023-06-05] MEDS ORDERED: 0.2 MICRON FILTER SET 1 EACH IV STA (21:31)
[2023-06-05] MEDS: AMIODARONE / D5W 150 MG/100 ML BAG IV STA (22:13)
[2023-06-05 22:16] LABS: Magnesium 2.3 mg/dl (1.7-2.4)
[2023-06-05 22:21] LABS: BUN Creatinine Ratio 45.1 (10-20); Creatinine Clr Calc Pharmacy 33.3 ml/min; Est GFR (African American) 33.4 ml/min; Est GFR (Non-African American) 28.8 ml/min
[2023-06-05] MEDS: HEPARIN SOD 5,000 UNIT/0.5 ML VIAL SQ SCH (22:28)
[2023-06-05] MEDS: AMIODARONE / D5W 360 MG/200 ML BAG IV ONE (22:35)
[2023-06-05] MEDS: PROMETHAZINE HCL 12.5 MG in SODIUM CHLORIDE 0.9% 50 ML IV PRN (23:07)
[2023-06-05] MEDS: ERTAPENEM SODIUM 1,000 MG in SYRINGE 0 ML IV SCH (23:07)
[2023-06-06] MEDS: AMIODARONE / D5W 360 MG/200 ML BAG IV SCH (05:02)
[2023-06-06] MEDS: ALBUMIN 25% 25 GM/100 ML VIAL IV ONE (05:24)
[2023-06-06] MEDS: METOPROLOL SUCC 25MG EXT REL TAB PO SCH (08:21)
[2023-06-06 08:26] LABS: BUN Creatinine Ratio 46.7 (10-20); Calcium 8.8 mg/dl (8.6-10.3); Creatinine Clr Calc Pharmacy 34.7 ml/min; Est GFR (African American) 35.3 ml/min; Est GFR (Non-African American) 30.5 ml/min; Potassium 4.1 mmol/L (3.5-5.1)
[2023-06-06 08:30] LABS: Hemoglobin 10.3 g/dl (12.0-16.0); Mean Corpuscular Hemoglobin 28.1 pg (25.0-34.0); Mean Corpuscular Hgb Conc 31.2 g/dL (32.0-36.0); Mean Corpuscular Volume 90.2 fL (80.0-100.0); Mean Platelet Volume 12.1 fL (9.4-12.4); Platelet Count 103 K/uL (130-400); RDW Coefficient of Variation 21.2 % (11.5-14.5); RDW Standard Deviation 67.6 fL (36.4-46.3); Red Blood Count 3.66 M/uL (4.20-5.40); White Blood Count 14.86 K/ul (4.8-10.8)
--- NOTE | 2023-06-06 10:03 | Nephrology Progress Note ---
Date of Service June 06, 2023 Assessment & Plan Admission and Anticipated Discharge Date Admission Date: May 29, 2023 Subjective Assessment & Plan (1) ALONA (acute kidney injury): Plan: no longer oliguric and improving acute kidney injury from ATN with sepsis and obstructive uropathy. S/p Stent on 05/30. Baseline creatinine is 1.2. Creatinine peaked at 2.9 and now trending down to 1.6. urine 1600 ml with Bumex iv. Patient is being treated for urosepsis on ertapenem; for c albicans candidemia on fluconazole. CT abdomen showed atrophy of the right kidney with a right ureteral stent w/ partial obstructive left renal stone measuring 8 mm. s/p 05/30 L ureteral stent and R stent exchange. Diagnosed w/ RSV 05/31 Given issues with low BP Bumex held this AM. she does have e/o total fluid overload on CT/exam and would like to restart bumex and may even need higher dose as she is only making 1200 ml urine even with uv bumex --that is not enough to cause net fluid loss. raise bumex to 3 mg iv q8h and hold only if SBP < 90. cont to hold aldactone Daily BMP Avoid contrast (2) Kidney stones: Plan: Patient with obstructive kidney stone on the left side. s/p high risk stent placement. originally deemed a high risk surgical candidate by urology but ultimately w/ procedure above. Will continue antibiotics and monitor. Continue to monitor renal function, input output daily (3) Soniya albicans infection: Plan: changed from caspo > fluconazole; ID has evaluated her; recommends repeat tte; f/u pending repeat cxs; monitor transaminases Subjective making urine 1275 ml yesterday on Iv bumex. She went into Cardiac rhythm issue and moved to tele/Cardiac floor. BP running low now. Feels weak. No new issues. no SOB. on Room air. Review of Systems Review of Systems: All systems reviewed & are unremarkable except as noted in Subjective Physical Exam Constitutional: well developed, well nourished, + obese and + lethargic Eyes: + eyelid abnormality (violaceous eyelids which she holds closed; blind) ENMT: Ears: no external ear abnormality Nose: no external nose abnormality Mouth: + dry oral mucous membranes Neck: no nuchal rigidity Respiratory: normal respiratory effort, + cough ( frequent and less productive) and able to speak in complete sentences; no labored breathing Auscultation: + diminished lung sounds (anterior exam), + crackles (bibasilar crackles) and + wheezes Cardiovascular: Rate/Rhythm: regular rate and regular rhythm Extremities: + edema (2+ dependent) Gastrointestinal (Abdomen): Inspection/Auscultation: abdomen normal to inspection (massive pannus) and normal bowel sounds Percussion/Palpation: abdomen soft; abdomen nontender Musculoskeletal: Extremities: strength 5/5 throughout Skin: no rashes, warm and dry Psychiatric: Orientation: oriented x 3 Results & Data Vital Signs (Past 12 Hours) Vital Signs Temp Pulse Resp BP Pulse Ox O2 Del Method 06/06/23 07:04 36.8 C 61 18 95/54 L 98 Room Air 06/06/23 05:00 80/49 L 06/06/23 04:20 Room Air 06/06/23 03:17 36.9 C 60 20 98/62 L 97 Room Air 06/05/23 23:25 36.5 C 63 113/75 94 Room Air
--- NOTE | 2023-06-06 10:27 | Newborn Progress Note ---
Date of Service June 06, 2023 Subjective Document in error Height & Weight Ramsey Length (height) cm: 5 ft 3 in Current Weight: 102.5 kg Urine & Stool Stool Size: Large Results (NB) Laboratory Results (24 Hours) Laboratory Results - last 24 hr 06/05/23 06/05/23 06/05/23 07:10 12:08 17:15 WBC RBC Hgb Hct MCV MCH MCHC RDW Std Deviation RDW Coeff of Juani Plt Count MPV Sodium Potassium Chloride Carbon Dioxide Anion Gap BUN Creatinine Est Cr Clr Drug Dosing Est GFR ( Amer) Est GFR (Non-Af Amer) BUN/Creatinine Ratio Glucose POC Glucose 157 H 149 H Calcium Magnesium 2.1 Lipase 06/05/23 06/05/23 06/05/23 20:14 21:17 21:50 WBC RBC Hgb Hct MCV MCH MCHC RDW Std Deviation RDW Coeff of Juani Plt Count MPV Sodium 138 Potassium 4.0 Chloride 101 Carbon Dioxide 28 Anion Gap 9 BUN 78 H Creatinine 1.73 H Est Cr Clr Drug Dosing 33.3 Est GFR ( Amer) 33.4 Est GFR (Non-Af Amer) 28.8 BUN/Creatinine Ratio 45.1 H Glucose 158 H POC Glucose 147 H 156 H Calcium 9.0 Magnesium 2.3 Lipase 06/06/23 06/06/23 07:06 07:48 WBC 14.86 H RBC 3.66 L Hgb 10.3 L Hct 33.0 L MCV 90.2 MCH 28.1 MCHC 31.2 L RDW Std Deviation 67.6 H RDW Coeff of Juani 21.2 H Plt Count 103 L MPV 12.1 Sodium 138 Potassium 4.1 Chloride 102 Carbon Dioxide 30 Anion Gap 6 BUN 77 H Creatinine 1.65 H Est Cr Clr Drug Dosing 34.7 Est GFR ( Amer) 35.3 Est GFR (Non-Af Amer) 30.5 BUN/Creatinine Ratio 46.7 H Glucose 124 H POC Glucose 121 H Calcium 8.8 Magnesium Lipase 44
--- NOTE | 2023-06-06 12:28 | Cardiology Progress Note ---
Date of Service June 06, 2023 Assessment & Plan (1) Sepsis: (2) Fungemia: (3) Elevated troponin: (4) HFrEF (heart failure with reduced ejection fraction): (5) S/P TAVR (transcatheter aortic valve replacement): (6) Tachy-wilfrido syndrome: (7) Pacemaker: (8) RSV (respiratory syncytial virus infection): Plan Supportive care as indicated for RSV. Antibiotics and antifungal as per infectious disease. Caspofungin changed to fluconazole. Continue Bumex 2 mg IV TID. Nephrology input appreciated. Monitor fluid balance, daily weight, GFR, and electrolytes. Continue dual antiplatelet therapy with aspirin and clopidogrel given TAVR and LAD stent- monitor platelet count (stable). Continue metoprolol 12.5 mg twice daily, atorvastatin 40 mg daily Transthoracic echocardiogram this admission revealed stable valvular structure and function, aortic valve prosthesis not well-visualized, ongoing severe left ventricular systolic dysfunction with ejection fraction in the range of 25 to 30%. At present she is not a candidate for CONSTANTINE given respiratory status with CHF and RSV. Concerns regarding ventricular arrhythmias addressed - Per extensive review of all leads on telemetry, there was significant artifact noted at the time. In several leads there was clear ongoing atrial pacing, no arrhythmias. Device also interrogated this morning without VT/VF. Amiodarone stopped. Continue metoprolol and other cardiac medications. Case discussed with Dr. Roberts I spent a total of 40 minutes on the date of service in preparation, delivery, and documentation of the care provided to this patient, excluding any time spent in the performance of separately billed services. Dian Candelario PA-C Department of Cardiology, [facility] This chart was completed in part utilizing Speech Voice Recognition Software. Grammatical errors, random word insertions, pronoun errors, and incomplete sentences are an occasional consequence of this system due to software limitations, ambient noise, and hardware issues. Any formal questions or concerns about the content, text, or information contained within the body of this dictation should be directly addressed to the provider for clarification. Admission and Anticipated Discharge Date Admission Date: May 29, 2023 Supervising Physician Co-Signing Physician Notes I have reviewed the advance practitioner's documentation, and I agree with, and take responsibility for the plan of care. Patient seen and examined at the bedside. Transferred to PCU last night due to possible ventricular fibrillation. IV amiodarone initiated. Telemetry reviewed demonstrating artifact without evidence of ventricular fibrillation. ICD interrogation without dysrhythmia. Patient feeling somewhat nauseated this morning and fatigue. Respiratory status unchanged. Edema more prominent today. PE: VSS. Gen: NAD, awake and alert. Heart: Regular rhythm, normal S1-S2. No murmur. Lungs: Bilateral rhonchi with expiratory wheeze. Extremities: 1+ bilateral pretibial edema. A/P: 73-year-old female with acute heart failure, sepsis, and fungemia. Transferred to PCU last night due to possible ventricular fibrillation. Telemetry reveals artifact without dysrhythmia. Discontinue amiodarone. Continue IV Bumex. Nephrology input appreciated. Follow fluid balance, daily weight, GFR, and electrolytes. Antibiotics/antifungal as per infectious disease. Currently, patient is not a candidate for transesophageal echocardiogram. I spent a total of 20 minutes on the date of service in preparation, delivery, and documentation of the care provided to this patient, excluding any time spent in the performance of separately billed services. Subjective Patient resting in bed. Ongoing cough reported. SOB stable. Reports she felt "shaky" and nauseous last night during "event". There was concerns for VT/VF on telemetry last night. Extensive review of telemetry around the time of concern revealed significant artifact. When all leads were reviewed, 2 leads demonstrating ongoing paced rhythm, not VT/VF. For further evaluation, device was interrogated and no VT/VF last night was identified as well. Review of Systems Review of Systems: All systems reviewed & are unremarkable except as noted in HPI & below Physical Exam Constitutional: + ill appearing; no acute distress Neck: normal visual inspection and trachea midline Respiratory: normal respiratory effort and + cough (moist productive); no respiratory distress Auscultation: + rales, + rhonchi and + wheezes Cardiovascular: Rate/Rhythm: regular rate and regular rhythm Heart Sounds: normal S1, normal S2 and + murmur (diminished heart sounds ) Vessels: + JVD (difficult to assess ) Extremities: + edema (+2 BLLE pitting edema ) Chest (Breasts): Chest: + pacemaker Gastrointestinal (Abdomen): normal bowel sounds, soft, nontender, no hepatosplenomegaly Psychiatric: Orientation: alert and oriented x 3 Results & Data Vital Signs (Past 12 Hours) Vital Signs Temp Pulse Resp BP Pulse Ox O2 Del Method 06/06/23 11:07 36.5 C 62 20 97/64 L 96 Room Air 06/06/23 07:04 36.8 C 61 18 95/54 L 98 Room Air 06/06/23 05:00 80/49 L 06/06/23 04:20 Room Air 06/06/23 03:17 36.9 C 60 20 98/62 L 97 Room Air Laboratory Results CBC 06/06/23 Range/Units 07:48 WBC 14.86 H (4.8-10.8) K/ul RBC 3.66 L (4.20-5.40) M/uL Hgb 10.3 L (12.0-16.0) g/dl Hct 33.0 L (37.0-47.0) % Plt Count 103 L (130-400) K/uL Comprehensive Metabolic Panel 06/05/23 06/06/23 Range/Units 21:17 07:48 Sodium 138 138 (136-145) mmol/L Potassium 4.0 4.1 (3.5-5.1) mmol/L Chloride 101 102 (98-107) mmol/L Carbon Dioxide 28 30 (21-32) mmol/L BUN 78 H 77 H (6-23) mg/dl Creatinine 1.73 H 1.65 H (0.6-1.2) mg/dl Glucose 158 H 124 H (70-99(Fasting)) mg/dl Calcium 9.0 8.8 (8.6-10.3) mg/dl Intake and Output 06/05/23 06/06/23 06/06/23 22:59 06:59 14:59 Intake Total 200 / 668.26 68.26 / 668.26 200 / 200 Output Total 625 / 1276 Balance 200 / -607.74 -556.74 / -607.74 199 / 199 Intake: IV 200 / 268.26 68.26 / 268.26 200 / 200 Albumin 25% 25 gm In 100 ml @ 100 / 100 50 mls/hr IV ONE ONE Rx#: [id number] Amiodarone / D5w 150 mg In 100 100 / 100 ml @ 600 mls/hr IV NOW STA Rx#: [id number] Amiodarone / D5w 360 mg In 200 17.76 / 17.76 100 / 100 ml @ 1 MG/MIN 33.333 mls/hr IV ONE ONE Rx#:[id number] Magnesium Sulfate / D5w 1 gm In 100 / 100 100 ml @ 50 mls/hr IV ONE ONE Rx#:[id number] Promethazine HCl 12.5 mg In 50.5 / 50.5 Sodium Chloride 0.9% 50 ml @ 202 mls/hr IV Q6H PRN Rx#: [id number] Output: Urine Amount (Catheter) 625 / 1275 Red/Indwelling 625 / 1275 # Bowel Movements Other: Weight 102.5 kg 102.5 kg Weight Measurement Method Built in [facility] Patient Weight 06/07/23 06:59 Weight 102.5 kg Diagnostic Findings Telemetry reviewed: Atrial Paced rhythm in the 60's. Last night, there was si gnificant artifact around the time of concern for VT/VF. If you look at all the leads, there is no artifact in lead III which clearly shows ongoing atrial pacing with QRS complexes. The other leads were artifact. Device interrogated this morning - Appropriate function and battery longevity. No VT on device this morning or last night. Last event was on 05/30 Medications Administered Current Inpatient Medications Acetaminophen (Acetaminophen 325 Mg Tab) 650 mg PO Q4H PRN PRN Reason: Pain or Fever Stop: 06/28/23 04:34 Last Admin: 06/02/23 06:30 Dose: 650 mg Acetaminophen (Acetaminophen 500 Mg Tab) 500 mg PO [facility] Stop: 06/28/23 20:59 Last Admin: 06/05/23 22:23 Dose: 500 mg Ascorbic Acid (Ascorbic Acid 500 Mg Tab) 500 mg PO DAILY [facility] Stop: 06/28/23 08:59 Last Admin: 06/06/23 09:02 Dose: 500 mg Aspirin (Aspirin 81 Mg Chew) 81 mg PO QAM [facility] Stop: 06/28/23 08:59 Last Admin: 06/06/23 09:02 Dose: 81 mg Atorvastatin Calcium (Atorvastatin 40 Mg Tab) 40 mg PO HS [facility] Stop: 06/28/23 20:59 Last Admin: 06/05/23 22:25 Dose: 40 mg Betaxolol HCl (Betaxolol Hcl 0.5% Op 5 Ml Btl) 1 drops OPL BID [facility] Stop: 06/28/23 08:59 Last Admin: 06/06/23 08:24 Dose: 1 drops Clopidogrel Bisulfate (Clopidogrel Bisulfate 75 Mg Tab) 75 mg PO QAM [facility] Stop: 06/28/23 08:59 Last Admin: 06/06/23 08:21 Dose: 75 mg Cyanocobalamin (Cyanocobalamin (B-12) 500 Mcg Tablet) 1,500 mcg PO QPM [facility] Stop: 06/28/23 20:59 Last Admin: 06/05/23 23:07 Dose: 1,500 mcg Dextrose (Dextrose 50% 50 Ml Syringe) 25 - 50 ml IV UD PRN; Protocol PRN Reason: Hypoglycemia Protocol Stop: 06/28/23 04:34 Docusate Sodium (Docusate Sodium 100 Mg Cap) 100 mg PO BID [facility] Stop: 07/02/23 08:59 Last Admin: 06/06/23 08:18 Dose: 100 mg Erythromycin (Erythromycin Op Oint 5 Mg/Gm 3.5 Gm Tube) 1 appln OPB QID [facility] Stop: 06/08/23 08:59 Last Admin: 06/06/23 12:25 Dose: 1 appln Ferrous Sulfate (Ferrous Sulfate 325 Mg Tab) 325 mg PO QDL [facility] Stop: 06/28/23 11:29 Last Admin: 06/06/23 12:23 Dose: 325 mg Fluconazole (Fluconazole 100 Mg Tab) 300 mg PO Q24H [facility] Stop: 06/16/23 12:59 Last Admin: 06/06/23 12:25 Dose: 300 mg Folic Acid (Folic Acid 1 Mg Tab) 1 mg PO QAM [facility] Stop: 06/28/23 08:59 Last Admin: 06/06/23 08:21 Dose: 1 mg Gabapentin (Gabapentin 300 Mg Cap) 300 mg PO BID [facility] Stop: 06/28/23 08:59 Last Admin: 06/06/23 08:21 Dose: 300 mg Glucagon (Glucagon For Inj 1 Mg Vial) 1 mg SQ UD PRN; Protocol PRN Reason: Hypoglycemia Protocol Stop: 06/28/23 04:34 Glucose (Glucose 10 Tab/Tube) 4 - 8 tab PO UD PRN; Protocol PRN Reason: Hypoglycemia Treatment Stop: 06/28/23 04:34 Glucose (Glucose 40% Gel 15 Gm Tube) 15 - 30 gm PO UD PRN; Protocol PRN Reason: Hypoglycemia Protocol Stop: 06/28/23 04:34 Guaifenesin (Guaifenesin 600 Mg Tabcr) 600 mg PO Q12 [facility] Stop: 07/05/23 11:34 Last Admin: 06/06/23 08:18 Dose: 600 mg Heparin Sodium (Porcine) (Heparin Sod 5,000 Unit/0.5 Ml Vial) 5,000 units SQ Q12 [facility] Stop: 07/05/23 20:59 Last Admin: 06/06/23 08:54 Dose: 5,000 units Hydroxychloroquine Sulfate (Hydroxychloroquine Sulfate 200 Mg Tab) 400 mg PO HS [facility] Stop: 06/28/23 20:59 Last Admin: 06/05/23 22:26 Dose: 400 mg Sodium Chloride (Nss) 1,000 mls @ 15 mls/hr IV .Q24H [facility] Stop: 06/29/23 12:59 Last Admin: 06/06/23 12:26 Dose: 15 mls/hr Bumetanide 2 mg/ Syringe 8 mls @ 4 mls/min IV TID [facility] Stop: 07/03/23 20:59 Last Admin: 06/06/23 09:01 Dose: Not Given Ertapenem 1,000 mg/ Syringe 10 mls @ 2 mls/min IV Q24H [facility] Stop: 06/08/23 20:59 Last Admin: 06/05/23 23:07 Dose: 2 mls/min Promethazine HCl 12.5 mg/ (Sodium Chloride) 50.5 mls @ 202 mls/hr IV Q6H PRN PRN Reason: Nausea And Vomiting Stop: 07/05/23 21:12 Last Infusion: 06/06/23 04:01 Dose: Infused Insulin Aspart (Insulin Aspart Per Unit Charge) 0 units SC ACHS [facility] Stop: 06/28/23 16:29 Last Admin: 06/06/23 12:23 Dose: Not Given Insulin Glargine (Lantus Per Unit Charge) 0 units SC BID [facility]; Protocol Stop: 07/03/23 08:59 Last Admin: 06/06/23 08:54 Dose: Not Given Latanoprost (Latanoprost 0.005% Op Soln 2.5 Ml Btl) 1 drops OPB PM [facility] Stop: 06/28/23 20:59 Last Admin: 06/05/23 22:28 Dose: 1 drops Levothyroxine Sodium (Levothyroxine Sodium 125 Mcg Tablet) 125 mcg PO DAILYBB [facility] Stop: 06/28/23 06:29 Last Admin: 06/06/23 08:18 Dose: 125 mcg Lorazepam (Lorazepam 0.5 Mg Tab) 0.5 mg PO TID PRN PRN Reason: Anxiety Stop: 06/28/23 04:34 Magnesium Oxide (Magnesium Oxide 400 Mg Tab) 400 mg PO QAM [facility] Stop: 06/28/23 08:59 Last Admin: 06/06/23 08:21 Dose: 400 mg Metoprolol Succinate (Metoprolol Succ 25mg Ext Rel Tab) 12.5 mg PO BID [facility] Stop: 07/06/23 08:59 Last Admin: 06/06/23 08:21 Dose: Not Given Miscellaneous (Carbohydrates For Hypoglycemia ) 15 - 30 gm PO UD PRN PRN Reason: Hypoglycemia Protocol Stop: 06/28/23 04:34 Miscellaneous Information (Pharmacy Glycemic Mgmt Consult) 1 each N/A UD PRN PRN Reason: Consult Stop: 06/28/23 04:34 Morphine Sulfate (Morphine Sulfate 2 Mg/Ml Carp) 2 mg IV Q3H PRN; Protocol PRN Reason: Pain Stop: 06/12/23 04:34 Last Admin: 06/02/23 20:42 Dose: 2 mg Multivitamins/Folic Acid/Vitamin C (Multivitamin Chewable Tab) 1 tab PO QAM [facility] Stop: 06/28/23 08:59 Last Admin: 06/06/23 08:21 Dose: 1 tab Nitroglycerin (Nitroglycerin Sl 0.4 Mg/Tab Tab) 0.4 mg SL Q5M PRN PRN Reason: Chest Pain Stop: 06/28/23 04:34 Pantoprazole Sodium (Pantoprazole 40 Mg Tab) 40 mg PO DAILY [facility] Stop: 06/28/23 08:59 Last Admin: 06/06/23 08:55 Dose: 40 mg Polyethylene Glycol (Polyethylene (Miralax) 17 Gm Pack) 17 gm PO DAILY PRN PRN Reason: Constipation Stop: 07/02/23 07:46 Prednisone (Prednisone 5 Mg Tab) 5 mg PO QAM [facility] Stop: 06/28/23 08:59 Last Admin: 06/04/23 08:52 Dose: 5 mg Sertraline HCl (Sertraline Hcl 50 Mg Tablet) 25 mg PO DAILY [facility] Stop: 06/28/23 08:59 Last Admin: 06/06/23 08:23 Dose: 25 mg (1) Sepsis Sepsis acute organ dysfunction status: unspecified Sepsis type: sepsis due to unspecified organism Qualified Code(s): A41.9 - Sepsis, unspecified organism
--- NOTE | 2023-06-06 20:41 | Hospitalist Progress Note ---
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 Cholecystectomy clips. Atrophy of the RIGHT kidney with a right-sided nerve ureteral stent. Bilateral renal cysts. Hysterectomy. Diverticulosis, without acute diverticulitis. No small bowel obstruction. No free intraperitoneal air. --S/p Cystoscopy with bilateral retrograde pyelogram, left ureteral dilation, Left Ureteral Stent Placement, Right Ureteral Stent Exchange by Urology on 05/30/23 by -- Blood culture from 05/28: Gram-positive cocci in clusters--Likely Contamination --Repeat Blood Cx: 05/30: Growing yeast, Soniya: Likely transient from urological procedure/instrumentation -- Urine culture 05/28: 3 types of organisms. (Likely contaminant) -- Repeat urine culture 05/30: Soniya --ECHO: Mild concentric LVH. Severe diffuse left ventricular hypokinesis with focal hypokinesis in the basal inferior wall. EF 25 to 30%. Left atrium is mildly dilated. Gradient is normal for this prosthetic aortic valve. No significant prosthetic regurgitation. Severe mitral annular calcification. No evidence of valvular vegetation within the limitations of the imaging modality. Compared to prior echo in December 2022, left ventricular ejection fraction 30% at that time. -- Appreciate urology input, needs follow-up with urology on discharge --Appreciate ID input: -- Continue IV ertapenem. --IV Caspofungin changed to fluconazole Final recommendations to be followed with ID. Will need 2-week course of antifungal treatment from clearance of blood cultures Persistent leukocytosis (also on prednisone). Thrombocytopenia improving Repeat blood cultures from 06/02/23:no growth Repeat CXR on 06/04 showed no signs of pneumonia, pleural effusion Discussed with ID Dr. Astudillo today--recommends to continue IV ertapenem and fluconazole to complete 2 weeks duration URI --CXR:No acute cardiopulmonary findings. No change in appearance of the chest. -- BioFire positive for RSV No pneumonia on repeat imaging Saturating well on room air Conservative management Added flutter, Mucinex H/O CAD s/p stent H/O systolic and diastolic CHF ECHO as above Troponin elevation likely demand ischemia in setting of worsening renal function, CHF, volume overload Appreciate Cardiology Input Continue Aspirin, Plavix and statin and metoprolol ALONA on CKD stage III Likely ATN Volume overload Baseline creatinine around 1 Cr 1.6 today Hold p.o. diuretics Continue IV Bumex per nephrology Monitor volume status, renal function Avoid nephrotoxic agents as able Plan to increase Bumex if blood pressure tolerates as patient has poor output PAF Tachybradycardia syndrome S/p pacemaker On Metoprolol Not on anticoagulation due to GI bleed History of TIA On aspirin and Plavix and statin Obstructive sleep apnea On CPAP nightly History of rheumatoid arthritis Continue Plaquenil and prednisone 5 mg daily Hypothyroidism Continue levothyroxine DM II HbA1c 7.3 Continue insulin/Sliding scale Monitor H/O Hepatocellular carcinoma S/P embolization Currently following with heme-onc Thrombocytopenia Chronic monitor Severe aortic stenosis S/p TAVR DVT Px: Heparin SQ CODE STATUS full code Admission and Anticipated Discharge Date Admission Date: May 29, 2023 Subjective Patient is seen and examined at bedside Slightly drowsy during my encounter Subjectively feels less congested, loosening of cough today Still has generalized weakness Discussed with infectious disease today Had bowel movement per RN today No other complaints Review of Systems Review of Systems: All systems reviewed & are unremarkable except as noted in Subjective Physical Exam Physical Exam: Physical Exam: Vitals signs as noted above General Appearance:Obese, no apparent distress Head: normocephalic, Atraumatic Eyes: eyelids remains closed, blind Neck: supple, Trachea midline Respiratory/Chest: Decreased breath sounds, basal crackles, rhonchi, no accessory muscle use Cardiovascular: S1, S2,+ murmur Abdomen/GI:Soft, non tender, Bowel sounds present Extremities/Musculoskeletal:normal inspection, 2+ Pedal edema Neurologic/Psych:AAOX3, grossly no focal neurological deficits Skin: normal color, warm Results & Data Results & Data Vital Signs (Past 12 Hours) Vital Signs Temp Pulse Pulse Resp BP Pulse Ox O2 Del Method 06/06/23 19:19 36.7 C 63 18 123/84 95 Room Air 06/06/23 16:08 36.8 C 60 20 105/59 L 94 Room Air 06/06/23 15:29 60 06/06/23 14:24 60 110/66 06/06/23 13:00 Room Air 06/06/23 11:07 36.5 C 62 20 97/64 L 96 Room Air Laboratory Results Short CBC 06/06/23 Range/Units 07:48 WBC 14.86 H (4.8-10.8) K/ul Hgb 10.3 L (12.0-16.0) g/dl Hct 33.0 L (37.0-47.0) % Plt Count 103 L (130-400) K/uL BMP 06/05/23 06/06/23 21:17 07:48 Sodium 138 138 Potassium 4.0 4.1 Chloride 101 102 Carbon Dioxide 28 30 BUN 78 H 77 H Creatinine 1.73 H 1.65 H Glucose 158 H 124 H Calcium 9.0 8.8 (1) Sepsis Sepsis acute organ dysfunction status: unspecified Sepsis type: sepsis due to unspecified organism Qualified Code(s): A41.9 - Sepsis, unspecified organism
--- NOTE | 2023-06-07 06:26 | Communication Note ---
Date of Service: June 07, 2023 6:05 AM Patient noted to be tachycardic on the monitor as per health center manager rate 125. SBP 100s Transient SOB as per patient. EKG as per my interpretation rate 125, LAD, LAFB, LVH, ST elevation anterolateral leads Patient currently asymptomatic. She said she had chest heaviness this morning when she woke up. AP ACS History of CAD Continue antiplatelet Rx Facilitate beta-gio given tachycardia Low-dose IV heparin for now N.p.o. in anticipation of procedure Case discussed with Dr. Roberts of Cardiology. He recommends repeat VS and repeating EKG for now.
[2023-06-07] MEDS: METOPROLOL SUCC 25MG EXT REL TAB PO STA (06:27)
[2023-06-07] MEDS: ALBUMIN 25% 25 GM/100 ML VIAL IV ONE (06:27)
[2023-06-07 06:49] LABS: Hemoglobin 10.3 g/dl (12.0-16.0); Mean Corpuscular Hemoglobin 28.4 pg (25.0-34.0); Mean Corpuscular Hgb Conc 31.2 g/dL (32.0-36.0); Mean Corpuscular Volume 90.9 fL (80.0-100.0); Mean Platelet Volume 11.8 fL (9.4-12.4); Platelet Count 100 K/uL (130-400); RDW Coefficient of Variation 21.2 % (11.5-14.5); Red Blood Count 3.63 M/uL (4.20-5.40); White Blood Count 10.35 K/ul (4.8-10.8)
[2023-06-07 07:01] LABS: Magnesium 2.2 mg/dl (1.7-2.4)
[2023-06-07 07:07] LABS: BUN Creatinine Ratio 42.6 (10-20); Calcium 8.9 mg/dl (8.6-10.3); Creatinine Clr Calc Pharmacy 32.7 ml/min; Est GFR (African American) 32.7 ml/min; Est GFR (Non-African American) 28.2 ml/min; Potassium 4.3 mmol/L (3.5-5.1)
[2023-06-07 07:24] LABS: Partial Thromboplastin Ratio 1.1; Partial Thromboplastin Time 32 Seconds (21-31)
[2023-06-07] MEDS: Heparin IV Adult Wt-Based Low-Dose *NO* INITIAL Bolus Protocol IV STA (08:36)
[2023-06-07] MEDS: HEPARIN SODIUM/DEXTROSE 25,000 UNITS/500 ML BAG IV SCH (08:36)
--- NOTE | 2023-06-07 08:37 | Pharmacy Report ---
Pharmacy Glycemic Short Note 2 - Date of Service June 07, 2023 - Glycemic Short BSG Results (Last 24 hours): 06/06/23 06/06/23 06/06/23 11:26 16:10 20:01 Glucose POC Glucose 138 H 151 H 170 H 06/07/23 06:29 Glucose 108 H POC Glucose OUTPATIENT ANTIDIABETIC REGIMEN: * Lantus 33 units QAM * A1c 7.3% 05/29/23 ASSESSMENT: 06/07/23: * Patient received total of 8 units of insulin yesterday, of which 5 units were basal insulin * Fasting BSG 108 mg/dL - continue same basal scale * No change to CF/CR 06/03/23: * [place] received 7 units of insulin yesterday (5 were basal) * Fasting BSG slightly below goal range, appears PO intake is improving per nursing documentation, will add a basal scale based on BSGs twice daily to cover if BSGs out of goal range * Continue current Novolog parameters 06/02/23 * [place]qu[place] received 5 units of basal insulin yesterday * All BSGs below goal range yesterday, fasting BSG this AM also below goal range, will hold off on basal insulin for now until BSGs increase and PO intake improves * Continue current Novolog parameters as they appear to be addressing her glycemic needs. 06/01/23 * BSGs had been very well-controlled, ranging 100-151 mg/dL yesterday * Received 25 units of insulin (22 units of which were basal) * Fasting BSG POC of 72 mg/dL this morning - will decrease basal insulin today * POD #2 s/p cystoscopy w/ stent placement * Continues on IV ertapenem and prednisone 5 mg PO daily 05/30/23: * Patient admitted with kidney stones/sepsis, currently NPO for cystoscopy, b/l retrograde pyelogram and possible ureteral stent insertion/exchange * SCr does continue to trend upward 1.82 --> 2.88 * BSGs have been stable, will continue with 11 units of lantus BID, novolog cF 35, cr 12 (this is based of home insulin dose) PLAN FOR INPATIENT GLYCEMIC CONTROL: * Basal insulin * Lantus 0-10 units bid based upon BSG scale * Bolus insulin * NovoLog per scale ACHS or Q6hrs while NPO * Goal Range: Low 110 mg/dL - High 140 mg/dL * Correction Factor: 35 mg/dL/unit * Nutritional / Prandial insulin per carb ratio of 1 unit per 10 grams CHO consumed
[2023-06-07] MEDS ORDERED: METOPROLOL SUCC 25MG EXT REL TAB PO SCH ×2 (09:00→21:00)
--- NOTE | 2023-06-07 10:01 | Nephrology Progress Note ---
Date of Service June 07, 2023 Assessment & Plan Admission and Anticipated Discharge Date Admission Date: May 29, 2023 Subjective Assessment & Plan (1) ALONA (acute kidney injury): Plan: no longer oliguric and improving acute kidney injury from ATN with sepsis and obstructive uropathy. S/p Stent on 05/30. Baseline creatinine is 1.2. Creatinine peaked at 2.9 and now trending down to 1.6. urine 1600 ml with Bumex iv. Patient is being treated for urosepsis on ertapenem; for c albicans candidemia on fluconazole. CT abdomen showed atrophy of the right kidney with a right ureteral stent w/ partial obstructive left renal stone measuring 8 mm. s/p 05/30 L ureteral stent and R stent exchange. Diagnosed w/ RSV 05/31 Given issues with low BP Bumex was held yesterday. she does have e/o total fluid overload on CT/ Physcial exam urine Output quite low--not enough to cause net fluid loss. raise Bumex to 3 mg iv q8hr and hold only if SBP < 90 Overall improvement seems very slow Creat seems stable around 1.7 last few days but somewhat higher than her baseline cont to hold aldactone Daily BMP Avoid contrast (2) Kidney stones: Plan: Patient with obstructive kidney stone on the left side. s/p high risk stent placement. originally deemed a high risk surgical candidate by urology but ultimately w/ procedure above. Will continue antibiotics and monitor. Continue to monitor renal function, input output daily (3) Soniya albicans infection: Plan: changed from caspo > fluconazole; ID has evaluated her; recommends repeat tte; f/u pending repeat cxs; monitor transaminases Subjective making urine 1275 ml yesterday on Iv bumex. She went into Cardiac rhythm issue and moved to tele/Cardiac floor. BP running low now. Feels weak. No new issues. no SOB. on Room air. Review of Systems Review of Systems: All systems reviewed & are unremarkable except as noted in Subjective Physical Exam Constitutional: well developed, well nourished, + obese and + lethargic Eyes: + eyelid abnormality (violaceous eyelids which she holds closed; blind) ENMT: Ears: no external ear abnormality Nose: no external nose abnormality Mouth: + dry oral mucous membranes Neck: no nuchal rigidity Respiratory: normal respiratory effort, + cough ( frequent and less productive) and able to speak in complete sentences; no labored breathing Auscultation: + diminished lung sounds (anterior exam), + crackles (bibasilar crackles) and + wheezes Cardiovascular: Rate/Rhythm: regular rate and regular rhythm Extremities: + edema (2+ dependent) Gastrointestinal (Abdomen): Inspection/Auscultation: abdomen normal to inspection (massive pannus) and normal bowel sounds Percussion/Palpation: abdomen soft; abdomen nontender Musculoskeletal: Extremities: strength 5/5 throughout Skin: no rashes, warm and dry Psychiatric: Orientation: oriented x 3 Results & Data Vital Signs (Past 12 Hours) Vital Signs Temp Pulse Pulse Resp BP Pulse Ox O2 Del Method 06/07/23 07:50 98 Room Air 06/07/23 07:15 36.5 C 66 18 119/79 06/07/23 06:06 124 H 108/76 99 Room Air 06/07/23 02:43 36.6 C 60 16 135/65 100 Room Air 06/07/23 00:00 60 06/06/23 23:02 36.5 C 67 22 99/62 L 95 Room Air
--- NOTE | 2023-06-07 10:12 | Electrocardiogram Report ---
Test Reason : Blood Pressure : / mmHG Vent. Rate : 070 BPM Atrial Rate : 070 BPM P-R Int : 250 ms QRS Dur : 132 ms QT Int : 418 ms P-R-T Axes : 067 -65 110 degrees QTc Int : 451 ms Sinus rhythm with 1st degree A-V block with occasional Premature ventricular complexes Left axis deviation Right bundle branch block T wave abnormality, consider lateral ischemia Abnormal ECG When compared with ECG of 31-MAY-2023 08:08, Premature ventricular complexes are now Present Confirmed by Srini Solorio ([id number]) on 06/07/2023 10:11:49 AM Referred By: REFERRED SELF Confirmed By:Srini Solorio
--- NOTE | 2023-06-07 10:36 | Electrocardiogram Report ---
Test Reason : Blood Pressure : / mmHG Vent. Rate : 125 BPM Atrial Rate : 125 BPM P-R Int : 056 ms QRS Dur : 118 ms QT Int : 356 ms P-R-T Axes : 000 -67 127 degrees QTc Int : 513 ms Sinus tachycardia with short TN Left axis deviation Right bundle branch block Inferior infarct Anterolateral infarct , age undetermined Abnormal ECG When compared with ECG of 05-JUN-2023 21:10, (unconfirmed) Significant changes have occurred Confirmed by Srini Solorio ([id number]) on 06/07/2023 10:36:11 AM Referred By: REFERRED SELF Confirmed By:Srini Solorio
--- NOTE | 2023-06-07 10:40 | Electrocardiogram Report ---
Test Reason : Blood Pressure : / mmHG Vent. Rate : 091 BPM Atrial Rate : 091 BPM P-R Int : 390 ms QRS Dur : 132 ms QT Int : 392 ms P-R-T Axes : 074 -64 112 degrees QTc Int : 482 ms Possible Atrial-paced rhythm with prolonged AV conduction Left axis deviation Right bundle branch block Inferior infarct (cited on or before 07-JUN-2023) T wave abnormality, consider lateral ischemia Abnormal ECG When compared with ECG of 07-JUN-2023 06:00, (unconfirmed) Significant changes have occurred Confirmed by Srini Solorio ([id number]) on 06/07/2023 10:40:16 AM Referred By: REFERRED SELF Confirmed By:Srini Solorio
[2023-06-07] MEDS ORDERED: Nursing to Pharmacy Communication SCH (11:00)
[2023-06-07] MEDS: INSULIN ASPART PER UNIT CHARGE SC SCH (12:29)
[2023-06-07] MEDS: BUMETANIDE 3 MG in SYRINGE 0 ML IV SCH (14:39)
--- NOTE | 2023-06-07 14:48 | Infectious Disease Progress Nt ---
<Statement entered by Man Astudillo MD - 06/07/23 15:10> I saw and evaluated the patient today. I have reviewed the trainee note and agree. I spent a total of 35 minutes coordinating, documenting, and providing care for this patient excluding time spent in performance of separately billed services. Date of Service June 07, 2023 Telehealth Information I performed this visit using a real-time telehealth connection between my location and the patients location ([facility]). After connecting through interactive tele-video, patient was identified by name and date of and/or wristband check.Patient (or authorized healthcare accounts payable representative) was informed that this was a telemedicine visit and it was being conducted confidentially over secure lines. My office door was closed and no one else was present in the room with me.Patient (or authorized healthcare accounts payable representative) provided consent to proceed with the visit, expressed an understanding of privacy and security of the telemedicine visit, and gave permission to have a hospital accounts payable representative in the room in order to assist with the visit and to conduct portions of the visit, as needed. I informed the patient (or authorized healthcare accounts payable representative) that I reviewed their record and presented the opportunity for them to ask any questions regarding the visit today. The patient agreed to participate. Assessment & Plan (1) Deshaun albicans infection: (2) Sepsis: (3) Right ureteral stone: (4) Lactic acidosis: (5) Kidney stone on right side: Plan Urosepsis: Patient initially had abnormal UA and multiple bacteria in UCX on 05/28 and had undergone cystoscopy with bilateral retrograde pyelogram, left ureteral dilation, left ureteral stent placement left stent placement, right stent exchange on 05/30/2023. Candidemia: GPC in clusters seen on BCX on 05/28:contaminant (1/4 bottles) and repeat BCX from 05/30 (2/4) yeast, deshaun albicans, likely transient from the urological procedure/instrumentation and repeat BCX from 06/02 was negative. Agree with continuing IV ertapenem 1gm daily for now for total of 14 days, last day is 06/10/23. TTE showed no vegetations and she is not a candidate for CONSTANTINE. We do not have any concern for IE here as it was transient fungemia following Urological procedure. Continue with PO fluconazole 300mg daily for fungemia for 14 days, Last day will be 06/15/23. If she develops any visual symptoms, she needs ophthalmology evaluation or as outpatient Patient does not need routine ID clinic visit but recommended to follow up with PCP. infectious disease will stop following, please call us with any questions Subjective Patient was afebrile, 36.7 Tmax, WBC WNL 10.3K. Review of Systems Could not assess Physical Exam Physical exam limited Const:appears lethargic but responding and answering appropriately Results & Data Vital Signs (Past 12 Hours) Vital Signs Temp Pulse Pulse Resp BP Pulse Ox O2 Del Method 06/07/23 11:06 36.7 C 67 18 101/61 93 Room Air 06/07/23 08:00 Room Air 06/07/23 08:00 124 H 06/07/23 07:50 98 Room Air 06/07/23 07:15 36.5 C 66 18 119/79 06/07/23 06:06 124 H 108/76 99 Room Air Laboratory Results Abnormal Lab Results 06/06/23 06/06/23 06/07/23 16:10 20:01 06:29 WBC 10.35 RBC 3.63 L Hgb 10.3 L Hct 33.0 L MCV 90.9 MCH 28.4 MCHC 31.2 L RDW Std Deviation 68.0 H RDW Coeff of Juani 21.2 H Plt Count 100 L MPV 11.8 APTT 32 H PTT Ratio 1.1 Sodium 139 Potassium 4.3 Chloride 102 Carbon Dioxide 30 Anion Gap 7 BUN 75 H Creatinine 1.76 H Est Cr Clr Drug Dosing 32.7 Est GFR ( Amer) 32.7 Est GFR (Non-Af Amer) 28.2 BUN/Creatinine Ratio 42.6 H Glucose 108 H POC Glucose 151 H 170 H Calcium 8.9 Magnesium 2.2 Troponin I High Sens 68.0 H* 06/07/23 06/07/23 06/07/23 08:19 08:47 12:08 WBC RBC Hgb Hct MCV MCH MCHC RDW Std Deviation RDW Coeff of Juani Plt Count MPV APTT PTT Ratio Sodium Potassium Chloride Carbon Dioxide Anion Gap BUN Creatinine Est Cr Clr Drug Dosing Est GFR ( Amer) Est GFR (Non-Af Amer) BUN/Creatinine Ratio Glucose POC Glucose 134 H 159 H Calcium Magnesium 2.1 Troponin I High Sens Diagnostic Findings Reviewed Medications Administered Home Medications Medication Instructions Recorded Confirmed Last Taken aspirin 81 mg chewable tablet 81 mg PO QAM 11/02/18 05/29/23 02/03/23 06:00 (Aspirin Childrens) atorvastatin 40 mg tablet 40 mg PO HS 11/02/18 05/29/23 02/02/23 20:00 erythromycin 5 mg/gram (0.5 %) eye 1 applic OPB QID 11/02/18 05/29/23 12/18/22 08:00 ointment folic acid 1 mg tablet 1 mg PO QAM 11/02/18 05/29/23 02/03/23 06:00 hydroxychloroquine 200 mg tablet 400 mg PO HS 11/02/18 05/29/23 02/02/23 20:00 (Plaquenil) levothyroxine 125 mcg tablet 125 mcg PO DAILYBB 11/02/18 05/29/23 02/03/23 06:00 lorazepam 0.5 mg tablet 0.5 mg PO TID PRN Anxiety 11/02/18 05/29/23 02/03/23 06:00 multivitamin with iron 1 tab PO QAM 11/02/18 05/29/23 02/02/23 08:00 prednisone 5 mg tablet 5 mg PO QAM 11/02/18 05/29/23 02/03/23 06:00 cyanocobalamin (vitamin B-12) 1,500 mcg PO QPM 10/20/19 05/29/23 02/02/23 20:00 1,000 mcg tablet (Vitamin B-12) hydrocodone 5 mg-acetaminophen 325 1 tab PO Q6H PRN Pain,mild 03/26/21 05/29/23 02/02/23 20:00 mg tablet magnesium oxide 400 mg (241.3 mg 400 mg PO QAM 08/30/21 05/29/23 02/02/23 08:00 magnesium) tablet netarsudil 0.02 % eye drops 1 drp OPL HS 08/30/21 05/29/23 12/17/22 (Rhopressa) methotrexate sodium 2.5 mg tablet 10 mg PO WK 02/11/22 05/29/23 02/01/23 08:00 clopidogrel 75 mg tablet (Plavix) 75 mg PO QAM 04/08/22 05/29/23 02/03/23 06:00 insulin glargine 100 unit/mL 33 unit subcut QA 08/19/22 05/29/23 05/28/23 09:00 subcutaneous solution (Lantus U-100 Insulin) acetaminophen 500 mg tablet 500 mg PO HS 11/05/22 05/29/23 02/02/23 20:00 (Tylenol Extra Strength) nystatin 100,000 unit/gram topical 1 applic topical TID PRN SKIN 11/05/22 05/29/23 Unknown powder IRRITATION UNDER BREASTS spironolactone 25 mg tablet 25 mg PO M 11/05/22 05/29/23 02/02/23 08:00 latanoprost 0.005 % eye drops 1 drp OPB PM 12/18/22 05/29/23 12/17/22 metoprolol succinate 25 mg 12.5 mg PO BID 12/18/22 05/29/23 02/03/23 06:00 tablet,extended release 24 hr torsemide 100 mg tablet 100 mg PO [facility] 12/18/22 05/29/23 02/02/23 08:00 ferrous sulfate 325 mg (65 mg 325 mg PO QDL 01/26/23 05/29/23 02/02/23 12:00 iron) tablet,delayed release potassium chloride 20 mEq 20 meq PO BID 01/26/23 05/29/23 02/02/23 20:00 tablet,extended release ascorbic acid (vitamin C) 500 mg 500 mg PO DAILY 05/29/23 05/29/23 Unknown tablet (Vitamin C) betaxolol 0.5 % eye drops 1 drp OPL [facility] 05/29/23 05/29/23 Unknown gabapentin 300 mg capsule 300 mg PO [facility] 05/29/23 05/29/23 Unknown netarsudil 0.02 % eye drops 1 drp OPL 05/29/23 05/29/23 Unknown (Rhopressa) pantoprazole 40 mg tablet,delayed 40 mg PO DAILY 05/29/23 05/29/23 Unknown release sertraline 25 mg tablet 25 mg PO DAILY 05/29/23 05/29/23 Unknown Active Medications Generic Name Dose Route Start Last Admin Trade Name Freq PRN Reason Stop Dose Admin Acetaminophen 650 mg 05/29/23 04:35 06/02/23 06:30 Acetaminophen 325 Mg Tab PO 06/28/23 04:34 650 mg Q4H PRN Administration Pain or Fever Acetaminophen 500 mg 05/29/23 21:00 06/06/23 20:28 Acetaminophen 500 Mg Tab PO 06/28/23 20:59 500 mg HS LIBBY Administration Ascorbic Acid 500 mg 05/29/23 09:00 06/07/23 09:01 Ascorbic Acid 500 Mg Tab PO 06/28/23 08:59 500 mg DAILY LIBBY Administration Aspirin 81 mg 05/29/23 09:00 06/07/23 09:01 Aspirin 81 Mg Chew PO 06/28/23 08:59 81 mg QAM LIBBY Administration Atorvastatin Calcium 40 mg 05/29/23 21:00 06/06/23 20:29 Atorvastatin 40 Mg Tab PO 06/28/23 20:59 40 mg HS LIBBY Administration Betaxolol HCl 1 drops 05/29/23 09:00 06/07/23 08:59 Betaxolol Hcl 0.5% Op 5 Ml Btl OPL 06/28/23 08:59 1 drops BID LIBBY Administration Clopidogrel Bisulfate 75 mg 05/29/23 09:00 06/07/23 09:03 Clopidogrel Bisulfate 75 Mg Tab PO 06/28/23 08:59 75 mg QAM LIBBY Administration Cyanocobalamin 1,500 mcg 05/29/23 21:00 06/06/23 20:26 Cyanocobalamin (B-12) 500 Mcg Tablet PO 06/28/23 20:59 1,500 mcg QPM LIBBY Administration Docusate Sodium 100 mg 06/02/23 09:00 06/07/23 09:06 Docusate Sodium 100 Mg Cap PO 07/02/23 08:59 100 mg BID LIBBY Administration Erythromycin 1 appln 05/29/23 09:00 06/07/23 12:24 Erythromycin Op Oint 5 Mg/Gm 3.5 Gm Tube OPB 06/08/23 08:59 1 appln QID LIBBY Administration Ferrous Sulfate 325 mg 05/29/23 11:30 06/07/23 12:24 Ferrous Sulfate 325 Mg Tab PO 06/28/23 11:29 325 mg QDL LIBBY Administration Fluconazole 300 mg 06/02/23 13:00 06/07/23 12:24 Fluconazole 100 Mg Tab PO 06/16/23 12:59 300 mg Q24H LIBBY Administration Folic Acid 1 mg 05/29/23 09:00 06/07/23 09:02 Folic Acid 1 Mg Tab PO 06/28/23 08:59 1 mg QAM LIBBY Administration Gabapentin 300 mg 05/29/23 09:00 06/07/23 09:02 Gabapentin 300 Mg Cap PO 06/28/23 08:59 300 mg BID LIBBY Administration Guaifenesin 600 mg 06/05/23 11:35 06/07/23 09:01 Guaifenesin 600 Mg Tabcr PO 07/05/23 11:34 600 mg Q12 LIBBY Administration Heparin Sodium (Porcine) 5,000 units 06/05/23 21:00 06/06/23 20:30 Heparin Sod 5,000 Unit/0.5 Ml Vial SQ 07/05/23 20:59 5,000 units Q12 LIBBY Administration Hydroxychloroquine Sulfate 400 mg 05/29/23 21:00 06/06/23 20:26 Hydroxychloroquine Sulfate 200 Mg Tab PO 06/28/23 20:59 400 mg HS LIBBY Administration Sodium Chloride 1,000 mls @ 15 mls/hr 05/30/23 13:00 06/07/23 12:25 Nss IV 06/29/23 12:59 Not Given .Q24H LIBBY KVO Ertapenem 1,000 mg/ Syringe 10 mls @ 2 mls/min 06/05/23 21:00 06/06/23 20:30 IV 06/08/23 20:59 2 mls/min Q24H LIBBY Administration Promethazine HCl 12.5 mg/ 50.5 mls @ 202 mls/hr 06/05/23 21:13 06/06/23 04:01 Sodium Chloride IV 07/05/23 21:12 Infused Q6H PRN Infusion Nausea And Vomiting Heparin Sodium/Dextrose 25,000 units in 500 mls @ 17 mls/hr 06/07/23 08:30 06/07/23 08:36 Heparin Sodium/Dextrose IV 07/07/23 08:29 850 units/hr .Q24H LIBBY 17 mls/hr Administration Protocol 850 UNITS/HR Bumetanide 3 mg/ Syringe 12 mls @ 4 mls/min 06/07/23 14:00 06/07/23 14:39 IV 07/07/23 13:59 4 mls/min TID LIBBY Administration Insulin Aspart 0 units 06/07/23 12:00 06/07/23 12:29 Insulin Aspart Per Unit Charge SC 06/28/23 16:29 1 units Q6 LIBBY Administration Insulin Glargine 0 units 06/03/23 09:00 06/07/23 09:06 Lantus Per Unit Charge SC 07/03/23 08:59 Not Given BID LIBBY Protocol Latanoprost 1 drops 05/29/23 21:00 06/06/23 20:29 Latanoprost 0.005% Op Soln 2.5 Ml Btl OPB 06/28/23 20:59 1 drops PM LIBBY Administration Levothyroxine Sodium 125 mcg 05/29/23 06:30 06/07/23 06:34 Levothyroxine Sodium 125 Mcg Tablet PO 06/28/23 06:29 125 mcg DAILYBB LIBBY Administration Magnesium Oxide 400 mg 05/29/23 09:00 06/07/23 09:05 Magnesium Oxide 400 Mg Tab PO 06/28/23 08:59 400 mg QAM LIBBY Administration Morphine Sulfate 2 mg 05/29/23 04:35 06/02/23 20:42 Morphine Sulfate 2 Mg/Ml Carp IV 06/12/23 04:34 2 mg Q3H PRN Administration Pain Protocol Multivitamins/Folic Acid/Vitamin C 1 tab 05/29/23 09:00 06/07/23 09:07 Multivitamin Chewable Tab PO 06/28/23 08:59 1 tab QAM LIBBY Administration Pantoprazole Sodium 40 mg 05/29/23 09:00 06/06/23 08:55 Pantoprazole 40 Mg Tab PO 06/28/23 08:59 40 mg DAILY LIBBY Administration Prednisone 5 mg 05/29/23 09:00 06/04/23 08:52 Prednisone 5 Mg Tab PO 06/28/23 08:59 5 mg QAM LIBBY Administration Sertraline HCl 25 mg 05/29/23 09:00 06/07/23 09:03 Sertraline Hcl 50 Mg Tablet PO 06/28/23 08:59 25 mg DAILY LIBBY Administration (2) Sepsis Sepsis acute organ dysfunction status: without acute organ dysfunction Sepsis type: Deshaun Qualified Code(s): B37.7 - Candidal sepsis; R65.20 - Severe sepsis without septic shock
--- NOTE | 2023-06-07 15:08 | Cardiology Progress Note ---
Date of Service June 07, 2023 Assessment & Plan (1) Sepsis: (2) Fungemia: (3) Elevated troponin: (4) HFrEF (heart failure with reduced ejection fraction): (5) S/P TAVR (transcatheter aortic valve replacement): (6) Tachy-wilfrido syndrome: (7) Pacemaker: (8) RSV (respiratory syncytial virus infection): Plan 1. Sepsis 2. Fungemia 3. RSV 4. HFrEF 5. S/P TAVR Supportive care as indicated for RSV. Antibiotics and antifungal as per infectious disease. Continue fluconazole. Continue Bumex 2 mg IV TID. Nephrology input appreciated. Monitor fluid balance, daily weight, GFR, and electrolytes. Goal Serum K>4.0 and Serum mag > 2.0. 6. Tachy-Wilfrido syndrome 7. Pacemaker -Obtain device interrogation today due to event overnight showing a questionable atrial flutter event from 1208-2753 with rates in the 120s 8. Elevated troponin: Continue dual antiplatelet therapy with aspirin and clopidogrel given TAVR and LAD stent- monitor platelet count (stable). Continue metoprolol, but increase to 25mg BID, atorvastatin 40 mg daily Transthoracic echocardiogram this admission revealed stable valvular structure and function, aortic valve prosthesis not well-visualized, ongoing severe left ventricular systolic dysfunction with ejection fraction in the range of 25 to 30%. At present she is not a candidate for CONSTANTINE given respiratory status with CHF and RSV. Case has been discussed with Dr. Roberts. Further recommendations regarding plan of care as per his assessment. I spent a total of 30 minutes on the date of service in preparation, delivery, documentation of the care provided to the patient excluding any time spent in the performance of separately billed services. RENITA Hill [facility] Cardiology [facility] Admission and Anticipated Discharge Date Admission Date: May 29, 2023 Supervising Physician Co-Signing Physician Notes I have reviewed the advance practitioner's documentation, and I agree with, and take responsibility for the plan of care. Patient seen and examined at the bedside. Contacted overnight by hospitalist due to concerns regarding possible ST elevation myocardial infarction. EKGs reviewed demonstrating probable SVT with aberrancy, ventricular rate [address] elevation. Telemetry reviewed revealing SVT versus atrial flutter. Per discussion with device pyrotechnician, intracardiac EGM likely represents supraventricular tachycardia with one-to-one conduction. Patient aware of her heart rates earlier today. Currently atrial paced rhythm with right bundle branch block on telemetry. Denies chest pain. Shortness of breath, cough, and fatigue unchanged. PE: VSS. Gen: Chronically ill, NAD, awake and alert. Heart: Regular rhythm, normal S1-S2. No murmur. Lungs: Bilateral rhonchi with expiratory wheeze. Extremities: 1+ bilateral pretibial edema. A/P: 73-year-old female with acute heart failure, sepsis, and fungemia. Supraventricular tachycardia with aberrant conduction noted on telemetry this morning. Titrate Toprol-XL to 25 mg twice daily. Continue IV Bumex. Nephrology input appreciated. Follow fluid balance, daily weight, GFR, and electrolytes. Antibiotics/antifungal as per infectious disease. Currently, patient is not a candidate for transesophageal echocardiogram. Poor prognosis. I spent a total of 30 minutes on the date of service in preparation, delivery, and documentation of the care provided to this patient, excluding any time spent in the performance of separately billed services. Subjective 06/07/23: patient seen and examined today in follow up. She is resting in bed, reports she feels lousy, but no worse than yesterday. Denies any chest pain, pressure, palpitations, remains short of breath with a weak moist non-productive cough, but denies worsening symptoms. Telemetry reviewed overnight showing an event from 5950-2034 suggestive of a 1:1 flutter, which broke and returned to a paced rhythm. Device rep contacted for interrogation. Notes, vitals, diagnostics reviewed. Review of Systems Review of Systems: All systems reviewed & are unremarkable except as noted in HPI & below Physical Exam Constitutional: + ill appearing and + morbidly obese Neck: normal visual inspection and trachea midline Respiratory: normal respiratory effort, + cough and + audible wheezes; no labored breathing Auscultation: + rhonchi (throughout) and + wheezes (throughout) Cardiovascular: Rate/Rhythm: regular rate and regular rhythm Heart Sounds: normal S1 and normal S2 Vessels: no JVD Extremities: + edema (+2 BLE) Skin: no rashes, warm and dry Psychiatric: Orientation: alert, oriented x 3 and cooperative Affect: + flat affect Results & Data Vital Signs (Past 12 Hours) Vital Signs Temp Pulse Pulse Resp BP Pulse Ox O2 Del Method 06/07/23 15:00 63 06/07/23 11:06 36.7 C 67 18 101/61 93 Room Air 06/07/23 08:00 Room Air 06/07/23 08:00 124 H 06/07/23 07:50 98 Room Air 06/07/23 07:15 36.5 C 66 18 119/79 06/07/23 06:06 124 H 108/76 99 Room Air Laboratory Results Cardiac Enzymes 06/07/23 Range/Units 06:29 Troponin I High Sens 68.0 H* (0-14) pg/ml Coagulation 06/07/23 Range/Units 06:29 APTT 32 H (21-31) Seconds CBC 06/07/23 Range/Units 06:29 WBC 10.35 (4.8-10.8) K/ul RBC 3.63 L (4.20-5.40) M/uL Hgb 10.3 L (12.0-16.0) g/dl Hct 33.0 L (37.0-47.0) % Plt Count 100 L (130-400) K/uL Comprehensive Metabolic Panel 06/07/23 Range/Units 06:29 Sodium 139 (136-145) mmol/L Potassium 4.3 (3.5-5.1) mmol/L Chloride 102 (98-107) mmol/L Carbon Dioxide 30 (21-32) mmol/L BUN 75 H (6-23) mg/dl Creatinine 1.76 H (0.6-1.2) mg/dl Glucose 108 H (70-99(Fasting)) mg/dl Calcium 8.9 (8.6-10.3) mg/dl Intake and Output 06/07/23 06/07/23 06/07/23 06:59 14:59 22:59 Intake Total 75 / 495 100 / 100 Output Total 350 / 851 200 / 200 Balance -275 / -356 -100 / -100 Intake: IV 100 / 100 Albumin 25% 25 gm In 100 ml @ 100 / 100 50 mls/hr IV ONE ONE Rx#: [id number] Oral 75 / 295 Output: Urine Amount (Catheter) 350 / 850 200 / 200 Red/Indwelling 350 / 850 200 / 200 Other: Other Intake Source npo Weight 103.4 kg Weight Measurement Method Built in [facility] (1) Sepsis Sepsis acute organ dysfunction status: unspecified Sepsis type: sepsis due to unspecified organism Qualified Code(s): A41.9 - Sepsis, unspecified organism
[2023-06-07 15:16] LABS: ANTI-Xa, UFH(UnfractionatedHep 0.47 IU/ml (0.3-0.7)
--- NOTE | 2023-06-07 17:13 | Hospitalist Progress Note ---
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 Cholecystectomy clips. Atrophy of the RIGHT kidney with a right-sided nerve ureteral stent. Bilateral renal cysts. Hysterectomy. Diverticulosis, without acute diverticulitis. No small bowel obstruction. No free intraperitoneal air. --S/p Cystoscopy with bilateral retrograde pyelogram, left ureteral dilation, Left Ureteral Stent Placement, Right Ureteral Stent Exchange by Urology on 05/30/23 by -- Blood culture from 05/28: Gram-positive cocci in clusters--Likely Contamination --Repeat Blood Cx: 05/30: Growing yeast, Soniya: Likely transient from urological procedure/instrumentation -- Urine culture 05/28: 3 types of organisms. (Likely contaminant) -- Repeat urine culture 05/30: Soniya --ECHO: Mild concentric LVH. Severe diffuse left ventricular hypokinesis with focal hypokinesis in the basal inferior wall. EF 25 to 30%. Left atrium is mildly dilated. Gradient is normal for this prosthetic aortic valve. No significant prosthetic regurgitation. Severe mitral annular calcification. No evidence of valvular vegetation within the limitations of the imaging modality. Compared to prior echo in December 2022, left ventricular ejection fraction 30% at that time. -- Appreciate urology input, needs follow-up with urology on discharge -- Continue IV ertapenem--last day of treatment 06/10/2023 --IV Caspofungin changed to fluconazole--last day of treatment 06/15/2023 Final recommendations to be followed with ID. Will need 2-week course of antifungal treatment from clearance of blood cultures Persistent leukocytosis (also on prednisone). Thrombocytopenia improving Repeat blood cultures from 06/02/23:no growth Repeat CXR on 06/04 showed no signs of pneumonia, pleural effusion Discussed with ID Dr. Astudillo--recommends to continue IV ertapenem and fluconazole to complete 2 weeks duration Appreciate ID input URI --CXR:No acute cardiopulmonary findings. No change in appearance of the chest. -- BioFire positive for RSV No pneumonia on repeat imaging Saturating well on room air Conservative management Added flutter, Mucinex H/O CAD s/p stent H/O systolic and diastolic CHF ECHO as above Troponin elevation likely demand ischemia in setting of worsening renal function, CHF, volume overload Appreciate Cardiology Input Continue Aspirin, Plavix and statin and metoprolol ALONA on CKD stage III Likely ATN Volume overload Baseline creatinine around 1 Cr 1.7 today Hold p.o. diuretics Continue IV Bumex per nephrology Monitor volume status, renal function Avoid nephrotoxic agents as able Increased Bumex to 3 mg every 8 hours given significant volume overload/poor urine output PAF Tachybradycardia syndrome SVT with aberrant conduction S/p pacemaker On Metoprolol Not on anticoagulation due to GI bleed Metoprolol succinate dose increased to 25 mg twice a day History of TIA On aspirin and Plavix and statin Obstructive sleep apnea On CPAP nightly History of rheumatoid arthritis Continue Plaquenil and prednisone 5 mg daily Hypothyroidism Continue levothyroxine DM II HbA1c 7.3 Continue insulin/Sliding scale Monitor H/O Hepatocellular carcinoma S/P embolization Currently following with heme-onc Thrombocytopenia Chronic monitor Severe aortic stenosis S/p TAVR DVT Px: Heparin SQ CODE STATUS full code Admission and Anticipated Discharge Date Admission Date: May 29, 2023 Subjective Patient is seen and examined at bedside Had transient chest discomfort overnight, resolved this morning Reports having some cough and dyspnea today No other complaints Still has generalized weakness Review of Systems Review of Systems: All systems reviewed & are unremarkable except as noted in Subjective Physical Exam Physical Exam: Physical Exam: Vitals signs as noted above General Appearance:Obese, no apparent distress Head: normocephalic, Atraumatic Eyes: eyelids remains closed, blind Neck: supple, Trachea midline Respiratory/Chest: Decreased breath sounds, basal crackles, rhonchi, no accessory muscle use Cardiovascular: S1, S2,+ murmur Abdomen/GI:Soft, non tender, Bowel sounds present Extremities/Musculoskeletal:normal inspection, 2+ Pedal edema Neurologic/Psych:AAOX3, grossly no focal neurological deficits Skin: normal color, warm Results & Data Results & Data Vital Signs (Past 12 Hours) Vital Signs Temp Pulse Pulse Resp BP Pulse Ox O2 Del Method 06/07/23 15:00 63 06/07/23 11:06 36.7 C 67 18 101/61 93 Room Air 06/07/23 08:00 Room Air 06/07/23 08:00 124 H 06/07/23 07:50 98 Room Air 06/07/23 07:15 36.5 C 66 18 119/79 06/07/23 06:06 124 H 108/76 99 Room Air Laboratory Results Short CBC 06/07/23 Range/Units 06:29 WBC 10.35 (4.8-10.8) K/ul Hgb 10.3 L (12.0-16.0) g/dl Hct 33.0 L (37.0-47.0) % Plt Count 100 L (130-400) K/uL BMP 06/07/23 06:29 Sodium 139 Potassium 4.3 Chloride 102 Carbon Dioxide 30 BUN 75 H Creatinine 1.76 H Glucose 108 H Calcium 8.9 (1) Sepsis Sepsis acute organ dysfunction status: unspecified Sepsis type: sepsis due to unspecified organism Qualified Code(s): A41.9 - Sepsis, unspecified organism
[2023-06-07] MEDS: METOPROLOL SUCC 25MG EXT REL TAB PO SCH (20:14)
[2023-06-07 22:19] LABS: ANTI-Xa, UFH(UnfractionatedHep 0.66 IU/ml (0.3-0.7)
[2023-06-08 06:51] LABS: Hematocrit (blood only) 29.5 % (37.0-47.0); Hemoglobin 9.4 g/dl (12.0-16.0); Mean Corpuscular Hemoglobin 28.4 pg (25.0-34.0); Mean Corpuscular Hgb Conc 31.9 g/dL (32.0-36.0); Mean Corpuscular Volume 89.1 fL (80.0-100.0); Mean Platelet Volume 12.1 fL (9.4-12.4); Platelet Count 104 K/uL (130-400); RDW Coefficient of Variation 20.9 % (11.5-14.5); RDW Standard Deviation 66.3 fL (36.4-46.3); Red Blood Count 3.31 M/uL (4.20-5.40); White Blood Count 16.66 K/ul (4.8-10.8)
[2023-06-08 07:03] LABS: Calcium 8.6 mg/dl (8.6-10.3); Creatinine Clr Calc Pharmacy 32.8 ml/min; Est GFR (African American) 32.9 ml/min; Est GFR (Non-African American) 28.4 ml/min; Potassium 3.9 mmol/L (3.5-5.1)
[2023-06-08 08:28] LABS: ANTI-Xa, UFH(UnfractionatedHep 0.64 IU/ml (0.3-0.7)
--- NOTE | 2023-06-08 10:17 | Nephrology Progress Note ---
Date of Service June 08, 2023 Assessment & Plan Admission and Anticipated Discharge Date Admission Date: May 29, 2023 Subjective Assessment & Plan (1) ALONA (acute kidney injury): Plan: no longer oliguric and improving acute kidney injury from ATN with sepsis and obstructive uropathy. S/p Stent on 05/30. Baseline creatinine is 1.2. Creatinine peaked at 2.9 and now trending down to 1.6. urine 1600 ml with Bumex iv. Patient is being treated for urosepsis on ertapenem; for c albicans candidemia on fluconazole. CT abdomen showed atrophy of the right kidney with a right ureteral stent w/ partial obstructive left renal stone measuring 8 mm. s/p 05/30 L ureteral stent and R stent exchange. Diagnosed w/ RSV 05/31 Given issues with low BP Bumex was held yesterday. she does have e/o total fluid overload on CT/ Physcial exam urine Output quite low--not enough to cause net fluid loss. also UO is declining every day despite iv bumex Increase Bumex to 4 mg iv q8hr and hold only if SBP < 90. Also add metolazone 5 mg today---if urine Output still does not go up then its a bigger problem. Defer to cardiology about whether Any role of Dopamine/Dobutaime etc to try to raise urine ouput Overall improvement seems very slow--I believe she is dying and Can consider Palliative med consult. Creat seems stable around 1.7 last few days but somewhat higher than her baseline cont to hold aldactone Daily BMP Avoid contrast (2) Kidney stones: Plan: Patient with obstructive kidney stone on the left side. s/p high risk stent placement. originally deemed a high risk surgical candidate by urology but ultimately w/ procedure above. Will continue antibiotics and monitor. Continue to monitor renal function, input output daily (3) Soniya albicans infection: Plan: changed from caspo > fluconazole; ID has evaluated her; recommends repeat tte; f/u pending repeat cxs; monitor transaminases Subjective Declining and getting worse every day. urine output dropping every day. seems weaker and weaker. Review of Systems Review of Systems: All systems reviewed & are unremarkable except as noted in Subjective Physical Exam Constitutional: well developed, well nourished, + obese and + lethargic Eyes: + eyelid abnormality (violaceous eyelids which she holds closed; blind) ENMT: Ears: no external ear abnormality Nose: no external nose abnormality Mouth: + dry oral mucous membranes Neck: no nuchal rigidity Respiratory: normal respiratory effort, + cough ( frequent and less productive) and able to speak in complete sentences; no labored breathing Auscultation: + diminished lung sounds (anterior exam), + crackles (bibasilar crackles) and + wheezes Cardiovascular: Rate/Rhythm: regular rate and regular rhythm Extremities: + edema (2+ dependent) Gastrointestinal (Abdomen): Inspection/Auscultation: abdomen normal to inspection (massive pannus) and normal bowel sounds Percussion/Palpation: abdomen soft; abdomen nontender Musculoskeletal: Extremities: strength 5/5 throughout Skin: no rashes, warm and dry Psychiatric: Orientation: oriented x 3 Results & Data Vital Signs (Past 12 Hours) Vital Signs Temp Pulse Pulse Resp BP Pulse Ox O2 Del Method 06/08/23 08:00 36.5 C 78 19 108/73 96 Room Air 06/08/23 08:00 60 06/08/23 08:00 Room Air 06/08/23 03:27 36.6 C 68 18 101/55 L 93 Room Air 06/07/23 23:42 60 06/07/23 22:22 36.7 C 60 20 108/71 92 Room Air
[2023-06-08] MEDS: metOLazone 5 MG TABLET PO ONE (10:54)
--- NOTE | 2023-06-08 14:12 | Cardiology Progress Note ---
Date of Service June 08, 2023 Assessment & Plan (1) Sepsis: (2) Fungemia: (3) Elevated troponin: (4) HFrEF (heart failure with reduced ejection fraction): (5) S/P TAVR (transcatheter aortic valve replacement): (6) Tachy-brown syndrome: (7) Pacemaker: (8) RSV (respiratory syncytial virus infection): Plan 1. Sepsis 2. Fungemia 3. RSV 4. HFrEF 5. S/P TAVR Supportive care as indicated for RSV. Antibiotics and antifungal as per infectious disease. Continue fluconazole. Continue Bumex 2 mg IV TID. Nephrology input appreciated. Monitor fluid balance, daily weight, GFR, and electrolytes. Goal Serum K>4.0 and Serum mag > 2.0. 6. Tachy-Brown syndrome 7. Pacemaker -Obtain device interrogation today due to event overnight showing a questionable atrial flutter event from [id number] with rates in the 120s 8. Elevated troponin: Continue dual antiplatelet therapy with aspirin and clopidogrel given TAVR and LAD stent- monitor platelet count (stable). Continue metoprolol 25mg BID with close monitoring of Blood pressure, atorvastatin 40 mg daily Transthoracic echocardiogram this admission revealed stable valvular structure and function, aortic valve prosthesis not well-visualized, ongoing severe left ventricular systolic dysfunction with ejection fraction in the range of 25 to 30%. At present she is not a candidate for CONSTANTINE given respiratory status with CHF and RSV. Case has been discussed with Dr. Roberts. Further recommendations regarding plan of care as per his assessment. I spent a total of 30 minutes on the date of service in preparation, delivery, documentation of the care provided to the patient excluding any time spent in the performance of separately billed services. RENITA Hill [facility] Admission and Anticipated Discharge Date Admission Date: May 29, 2023 Supervising Physician Co-Signing Physician Notes I have reviewed the advance practitioner's documentation, and I agree with, and take responsibility for the plan of care. Patient seen and examined at the bedside. Continues to note severe fatigue and weakness. ICD interrogations reviewed demonstrating episodes of SVT. Carries history of paroxysmal atrial fibrillation and flutter as well. She is not chronically anticoagulated due to bleeding risk. Patient voices concern regarding her prognosis. She was evaluated by palliative care earlier today and has questions regarding implications of hospice care. Concerned regarding insurance coverage. Denies chest pain or heaviness. Cough with scant sputum production unchanged. PE: VSS. Gen: Chronically ill, NAD, awake and alert. Heart: Regular rhythm, normal S1-S2. No murmur. Lungs: Bilateral rhonchi with expiratory wheeze. Extremities: 1+ bilateral pretibial edema. A/P: 73-year-old female with acute heart failure, sepsis, and fungemia. Recent events include episodes of paroxysmal supraventricular tachycardia. Toprol-XL titrated to 25 mg twice daily 06/07/2023. Continue IV Bumex. Nephrology input appreciated. Follow fluid balance, daily weight, GFR, and electrolytes. Antibiotics/antifungal as per infectious disease. Currently, patient is not a candidate for transesophageal echocardiogram. Due to multiple comorbidities, frequent hospitalizations, continued clinical decline, I agree with palliative care evaluation. All questions answered to patient's satisfaction. I spent a total of 30 minutes on the date of service in preparation, delivery, and documentation of the care provided to this patient, excluding any time spent in the performance of separately billed services. Subjective 06/08/23: patient seen and examined in follow up today. Resting comfortably in bed at this time. Offers no significant complaints. Continue with weak non-productive cough. Endorses being weak and tired. Review of telemetry overnight demonstrates a burst of what appears to be consistent with a re-entry tachycardia from 0803 to 0809 this morning with rates in the 120's. [employer] rep present to review. Notes, labs, diagnostics, vital signs and telemetry reviewed. Review of Systems Review of Systems: All systems reviewed & are unremarkable except as noted in HPI & below Physical Exam Constitutional: + ill appearing and + morbidly obese Neck: normal visual inspection and trachea midline Respiratory: normal respiratory effort, + cough and + audible wheezes; no labored breathing Auscultation: + rhonchi (throughout) and + wheezes (throughout) Cardiovascular: Rate/Rhythm: regular rate and regular rhythm Heart Sounds: normal S1 and normal S2 Vessels: no JVD Extremities: + edema (+2 BLE) Skin: no rashes, warm and dry Psychiatric: Orientation: alert, oriented x 3 and cooperative Affect: + flat affect Results & Data Vital Signs (Past 12 Hours) Vital Signs Temp Pulse Pulse Resp BP Pulse Ox O2 Del Method 06/08/23 10:43 36.5 C 62 17 90/55 L 93 Room Air 06/08/23 08:00 36.5 C 78 19 108/73 96 Room Air 06/08/23 08:00 60 06/08/23 08:00 Room Air 06/08/23 03:27 36.6 C 68 18 101/55 L 93 Room Air Laboratory Results CBC 06/08/23 Range/Units 06:21 WBC 16.66 H (4.8-10.8) K/ul RBC 3.31 L (4.20-5.40) M/uL Hgb 9.4 L (12.0-16.0) g/dl Hct 29.5 L (37.0-47.0) % Plt Count 104 L (130-400) K/uL Comprehensive Metabolic Panel 06/08/23 Range/Units 06:21 Sodium 139 (136-145) mmol/L Potassium 3.9 (3.5-5.1) mmol/L Chloride 101 (98-107) mmol/L Carbon Dioxide 28 (21-32) mmol/L BUN 77 H (6-23) mg/dl Creatinine 1.75 H (0.6-1.2) mg/dl Glucose 178 H (70-99(Fasting)) mg/dl Calcium 8.6 (8.6-10.3) mg/dl Intake and Output 06/07/23 06/08/23 06/08/23 22:59 06:59 14:59 Intake Total 178.216 / 346.499 68.283 / 134.833 3087.184 / 1021.184 Output Total 100 / 600 300 / 600 500 / 500 Balance 78.216 / -253.501 -231.717 / -253.501 521.184 / 521.184 Intake: IV 178.216 / 346.499 68.283 / 346.499 841.184 / 841.184 Heparin Sodium/Dextrose 25,000 178.216 / 246.499 68.283 / 246.499 143.934 / 143.934 units In 500 ml @ 850 UNITS/HR 17 mls/hr IV .Q24H LIBBY Rx#: [id number] Sodium Chloride 0.9% 1,000 ml @ 697.25 / 697.25 KVO 15 mls/hr IV .Q24H LIBBY Rx# :[id number] Oral 180 / 180 Output: Urine Amount (Catheter) 100 / 600 300 / 600 500 / 500 Red/Indwelling 100 / 600 300 / 600 500 / 500 Other: Other Intake Source Patient is NPO Weight 102.6 kg Weight Measurement Method Built in [facility] (1) Sepsis Sepsis acute organ dysfunction status: unspecified Sepsis type: sepsis due to unspecified organism Qualified Code(s): A41.9 - Sepsis, unspecified organism
--- NOTE | 2023-06-08 14:55 | Palliative Care Consultation ---
Date of Consultation June 08, 2023 Assessment & Plan (1) Weakness generalized: (2) Anxiety and depression: (3) Advanced care planning/counseling discussion: Met with pt face to face at [facility] for 20min She gave consent to voluntarily discuss ACP She is aware of her medical situation and states she has been having a lot of conversations with a lot of specialists the last few days. She understands things are not all fixable and she also feels she does not want to do any more aggressive care however she isn't sure how to define those parameters for her and wants some time to think about it. She was very direct that she has more questions and concerns she wants to specifically discuss with me about options for her future care but wants a day to assemble her thoughts. She asked me to come by tomorrow, which I advised I would try however am in outpatient clinic tomorrow. If I do not have time to come over, we have a plan to meet on Tuesday. She is thinking about what she wants to focus/prioritize at this junction and is leaning towards wanting to be home/with family and focus on QOL but she is not sure she feels ready to agree to hospice. (4) Palliative care by specialist: Met with pt/family. Provided overview of Palliative Medicine, a subspecialty that provides specialized medical care for people living with a serious illness by offering a focus on quality of life. Palliative Medicine is often conflated with hospice: I advised patient/family that Palliative and hospice can be partners but we are not the same. It is important to understand the difference so that we may be informed, and not afraid. Palliative Medicine works to improve QOL through reduction of symptom burden/more control over their illness, for both the patient and family. Palliative medicine clinicians are board certified, specially-trained and another member of the patient's medical care team. We often provide an extra layer of support because our care is based on the needs of the patient, not the prognosis; as such, it's appropriate at any age/advancing stage of a serious illness and can be provided along with curative treatment. Palliative Medicine clinicians are also trained in advanced communication methodologies, to facilitate complex discussions about advanced illness planning, which are needed to help assure that the treatment choices match the patient's goals, aka delivering Goal Concordant care. Finally, we discussed that hospice is a visiting nurse service that focuses on care delivered at the very end of life for patients with terminal illness, with life expectancy less than 6 month. (5) RSV (respiratory syncytial virus infection): (6) S/P TAVR (transcatheter aortic valve replacement): (7) HFrEF (heart failure with reduced ejection fraction): Plan * Initial ACP discussion outlined above * Follow up likely Tuesday Thank you for allowing us to participate in the ongoing care of this patient. Please don't hesitate to call or page with any additional concerns. Dr. 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 She lives in a private home with her She is legally blind She came to ED with c/o n/v/d x few days, was found to be septic with UTI + Stone Admission has been complicated by RSV, elevated troponin, fungemia, HFrEF Transthoracic echocardiogram this admission revealed stable valvular structure and function, aortic valve prosthesis not well-visualized, ongoing severe left ventricular systolic dysfunction with ejection fraction in the range of 25 to 30%. Orquidea tells me she feels exhausted by her medical issues and no longer feels she has good QOL. She tells me she is thinking about stopping aggressive remedies and contemplating a focus more on her comfort/to be peaceful. Nephrology notes: "Given issues with low BP Bumex was held yesterday. she does have e/o total fluid overload on CT/ Physcial exam urine Output quite low--not enough to cause net fluid loss. also UO is declining every day despite iv bumex Increase Bumex to 4 mg iv q8hr and hold only if SBP < 90. Also add metolazone 5 mg today---if urine Output still does not go up then its a bigger problem. Defer to cardiology about whether Any role of Dopamine/Dobutaime etc to try to raise urine ouput Overall improvement seems very slow--I believe she is dying and Can consider Palliative med consult. Creat seems stable around 1.7 last few days but somewhat higher than her baseline" Allergies Allergy/AdvReac Type Severity Reaction Status Date / Time cephalexin Allergy Severe Anaphylaxis Verified 05/29/23 02:41 Cephalosporins Allergy Severe Anaphylaxis Verified 05/29/23 02:41 Sulfa (Sulfonamide Allergy Intermediate Hives Verified 05/29/23 02:41 Antibiotics) sulfamethoxazole Allergy Intermediate Hives Verified 05/29/23 02:41 [From Bactrim] trimethoprim [From Bactrim] Allergy Intermediate Hives Verified 05/29/23 02:41 butorphanol AdvReac Intermediate Rapid heart Verified 05/29/23 02:41 ciprofloxacin AdvReac Intermediate Nausea Verified 05/29/23 02:41 Home Medications Medication Instructions Recorded Confirmed Type aspirin 81 mg chewable tablet 81 mg PO QAM 11/02/18 05/29/23 History (Aspirin Childrens) atorvastatin 40 mg tablet 40 mg PO HS 11/02/18 05/29/23 History erythromycin 5 mg/gram (0.5 %) eye 1 applic OPB QID 11/02/18 05/29/23 History ointment folic acid 1 mg tablet 1 mg PO QAM 11/02/18 05/29/23 History hydroxychloroquine 200 mg tablet 400 mg PO HS 11/02/18 05/29/23 History (Plaquenil) levothyroxine 125 mcg tablet 125 mcg PO DAILYBB 11/02/18 05/29/23 History lorazepam 0.5 mg tablet 0.5 mg PO TID PRN Anxiety 11/02/18 05/29/23 History multivitamin with iron 1 tab PO QAM 11/02/18 05/29/23 History prednisone 5 mg tablet 5 mg PO QAM 11/02/18 05/29/23 History cyanocobalamin (vitamin B-12) 1,500 mcg PO QPM 10/20/19 05/29/23 History 1,000 mcg tablet (Vitamin B-12) hydrocodone 5 mg-acetaminophen 325 1 tab PO Q6H PRN Pain,mild 03/26/21 05/29/23 History mg tablet magnesium oxide 400 mg (241.3 mg 400 mg PO QAM 08/30/21 05/29/23 History magnesium) tablet netarsudil 0.02 % eye drops 1 drp OPL HS 08/30/21 05/29/23 History (Rhopressa) methotrexate sodium 2.5 mg tablet 10 mg PO WK 02/11/22 05/29/23 History clopidogrel 75 mg tablet (Plavix) 75 mg PO QAM 04/08/22 05/29/23 History insulin glargine 100 unit/mL 33 unit subcut QA 08/19/22 05/29/23 History subcutaneous solution (Lantus U-100 Insulin) acetaminophen 500 mg tablet 500 mg PO HS 11/05/22 05/29/23 History (Tylenol Extra Strength) nystatin 100,000 unit/gram topical 1 applic topical TID PRN SKIN 11/05/22 05/29/23 History powder IRRITATION UNDER BREASTS spironolactone 25 mg tablet 25 mg PO QAM 11/05/22 05/29/23 History latanoprost 0.005 % eye drops 1 drp OPB PM 12/18/22 05/29/23 History metoprolol succinate 25 mg 12.5 mg PO BID 12/18/22 05/29/23 History tablet,extended release 24 hr torsemide 100 mg tablet 100 mg PO QAM 12/18/22 05/29/23 History ferrous sulfate 325 mg (65 mg 325 mg PO QDL 01/26/23 05/29/23 History iron) tablet,delayed release potassium chloride 20 mEq 20 meq PO BID 01/26/23 05/29/23 History tablet,extended release ascorbic acid (vitamin C) 500 mg 500 mg PO DAILY 05/29/23 05/29/23 History tablet (Vitamin C) betaxolol 0.5 % eye drops 1 drp OPL [facility] 05/29/23 05/29/23 History gabapentin 300 mg capsule 300 mg PO [facility] 05/29/23 05/29/23 History netarsudil 0.02 % eye drops 1 drp OPL HS 05/29/23 05/29/23 History (Rhopressa) pantoprazole 40 mg tablet,delayed 40 mg PO DAILY 05/29/23 05/29/23 History release sertraline 25 mg tablet 25 mg PO DAILY 05/29/23 05/29/23 History Patient History Medical History (Updated 06/08/23 @ 14:50 by Gayathri Mccabe DNP) Palliative care by specialist Advanced care planning/counseling discussion Anxiety and depression Weakness generalized CAD (coronary artery disease) s/p PCI with WALTER to mid LAD 03/22/22 (mild luminal irregularities elsewhere) History of blood transfusion 1980s Morbid obesity with BMI of 40.0-44.9, adult On anticoagulant therapy plavix daily History of COVID-19 diagnosed end of 05/2022 via home test--cough, body aches, sore throat, nausea, runny nose--no symptoms now Edema of both legs current issue--has perez wraps around both legs 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 LICA less than 50% stenosis. Aortic stenosis S/p TAVR 12/09/22 Blindness Left eye (since ), right eye sown shut "from the inside"; legally blind Pancreatic lesion 1.1 cm stable small cystic lesion in body of pancreas per 01/21/[address] Ischemic cardiomyopathy EF 25-29% 01/2023 echo Diabetic retinopathy History of atrial fibrillation Single, brief episode (2017) PAF/flutter per cardio records- [id number] score of 3- No AC due to bleeding risk (chronic microscopic hematuria with frequent urological procedures, hemorrhoids, AVMs, thrombocytopenia, liver cancer, etc.) Hypertension Kidney stones hx Liver cancer Stage 1, s/p embolization (injection black poppyseed oil twice) under surveillance by [facility] heme/onc - had radiation seeds placed 10/18/22 Diabetic neuropathy Chronic back pain Chronic kidney disease, stage 3 follows with [facility] nephrology Hernia Current Pancreatitis Mutliple, 15+ episodes (no current issues) History of gastric ulcer Hypothyroidism Diabetes mellitus, type 2 IDDM History of cancer 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), s/p surgical intervention Rheumatoid arthritis on Plaquenil, MTX, prednisone 5mg daily Anemia Iron deficiency Chronic steroid use Glaucoma open angle per [facility] records Transient ischemic attack (TIA) ? TIA vs CVA x2 (20+ years ago), no deficits Migraine Hx years ago Hyperlipidemia Congestive heart failure EF 25-29% on 01/2023 echo Myocardial Infarction Remote silent VT (10+ years ago) Sleep apnea CPAP History of sinus problem Reason for nebulizer and inhalers prn Surgical History (Updated 05/31/23 @ 10:36 by RENITA Cortez) S/P TAVR (transcatheter aortic valve replacement) December 2022 at [facility]. mechanical valve. follows with [facility]. S/P cardiac cath [facility] 03/2022 History of cardiac cath 03/22/22 > 1 stent drug eluting> [place] > see report in records Status post laser lithotripsy of ureteral calculus x3 -> November 2019, December 2019, August 2020 History of ERCP History of cystoscopy --multiple-- Cystoscopy, right stent, right laser lithotripsy (08/11/2020): LMA 4.0 unique, atraumatic, LMA attempt x1 at [facility]. No issues per postop anesthesia progress note. History of liver biopsy X 2 Nausea and vomiting after administration of anesthetic agent History of dilatation and curettage x3 S/P foot surgery, left "stepped on a needle and had to have it removed" History of carpal tunnel release of both wrists History of lumbar discectomy History of biopsy of bladder showed chronic cystitis History of total hysterectomy with bilateral salpingo-oophorectomy (BSO) History of appendectomy History of cholecystectomy History of colonoscopy History of esophagogastroduodenoscopy (EGD) History of tooth extraction all top teeth, most of bottom History of partial thyroidectomy right side and ismis removed d/t papillary cancer History of tarsorrhaphy BILT--right eye closed shut, left eye partly closed History of bilateral cataract extraction History of detached retina repair x4 on right eye; sx to sew right eye shut in 2017 Family History Father Family history of diabetes mellitus Family history of reaction to anesthesia difficulty waking Mother Family history of diabetes mellitus Sister Family history of diabetes mellitus Brother Family history of diabetes mellitus Grandmother (Maternal) Family history of diabetes mellitus Grandmother (Paternal) Family history of diabetes mellitus Son Family history of diabetes mellitus Social History Smoking Status: Never smoker Second Hand Exposure: No; Do You Dip or Chew Tobacco: No; Hx Alcohol Use: No Hx Substance Use: No Preferred Language: Estonian Communication Ability: Effective Communication Ability Comment: blind Communication Tools: Other Visual Impairment: Blindness Hearing Ability: Normal Grain Weigher Required: Voice Beliefs That Will Affect Care: None marital status: Current Living Situation: Alone current occupational status: disabled Feels Safe at Home: Yes Diet: diabetic, low carbohydrate and low salt Diet Comment: low fat caffeine: Yes during the past year weight has: remained stable Do you think of yourself as: straight/heterosexual Gender Identity: Female Assistive Devices: Walker Review of Systems Review of Systems: All systems reviewed & are unremarkable except as noted in Subjective Physical Exam Physical Exam: Elderly female resting in bed no family present Bitemp wasting legally blind, eyes generally closed through visit She is AAOx3 otherwise and can follow commands Normal resp effort, no use of accessory muscles Diminished rbeath sounds, may be due to habitus S1S2, sl irreg no gross JVD Abd distended not tender, +pannus Generalized weakness Skin is pale but warm Results & Data Vital Signs (Past 12 Hours) Vital Signs Temp Pulse Pulse Resp BP Pulse Ox O2 Del Method 06/08/23 10:43 36.5 C 62 17 90/55 L 93 Room Air 06/08/23 08:00 36.5 C 78 19 108/73 96 Room Air 06/08/23 08:00 60 06/08/23 08:00 Room Air 06/08/23 03:27 36.6 C 68 18 101/55 L 93 Room Air Laboratory Results data reviewed Diagnostic Findings data reviewed/see HPI PG Care Time/CCT Total # of Minutes Spent Total Time Spent with Patient: Total time spent is greater than 50% in coordination of care (as documented) at patient's floor/unit and/or counseling patient: I spent 80 minutes overall addressing this case: 15 min in medical data review/discussion with referring provider(s) and/or preparation for the visit 20 min in direct interaction with the patient/exam 20 min in Advance Care Planning/Goals of Care discussions as detailed above in note (must be >16min) 10 min in subsequent review and synthesis of assessment and plan 15 min communicating with other providers regarding the patient's case: Advanced Care Planning 64790 Advanced Care Planning 30 [place] [address] IN/OBS CONSULT LVL 4,60M Patient Type New History Comprehensive Exam Comprehensive Medical Decision Making High Complexity Diagnoses Weakness generalized R53.1 Anxiety and depression F41.9; F32.A Advanced care planning/counseling discussion Z71.89 Palliative care by specialist Z51.5 RSV (respiratory syncytial virus infection) B33.8 S/P TAVR (transcatheter aortic valve replacement) Z95.2 HFrEF (heart failure with reduced ejection fraction) I50.20 Additional Codes Advanced Care Planning - 91572 Advanced Care Planning 30 Min: 82754 Advanced Care Planning 30 Min ([id number])
--- NOTE | 2023-06-08 14:56 | Palliative Family Discussion ---
Date of Service June 08, 2023 Patient Directed Conference Time of Meetin-1pm Participants: Gayathri Mccabe DNP Patient participation: yes Patient Support System: no family present Other Healthcare Provider Participation: None Meeting Location: bedside with pt An ACP meeting was held for LEON MCKEON. This meeting was necessary for determining the appropriate course of treatment. Topics of Discussion Met with pt face [facility] for 20min She gave consent to voluntarily discuss ACP She is aware of her medical situation and states she has been having a lot of conversations with a lot of specialists the last few days. She understands things are not all fixable and she also feels she does not want to do any more aggressive care however she isn't sure how to define those parameters for her and wants some time to think about it. She was very direct that she has more questions and concerns she wants to specifically discuss with me about options for her future care but wants a day to assemble her thoughts. She asked me to come by tomorrow, which I advised I would try however am in outpatient clinic tomorrow. If I do not have time to come over, we have a plan to meet on Tuesday. She is thinking about what she wants to focus/prioritize at this junction and is leaning towards wanting to be home/with family and focus on QOL but she is not sure she feels ready to agree to hospice.
[2023-06-08] MEDS: BUMETANIDE 4 MG in SYRINGE 0 ML IV SCH (15:01)
[2023-06-08] MEDS ORDERED: Nursing to Pharmacy Communication SCH (15:30)
--- NOTE | 2023-06-08 16:49 | Hospitalist Progress Note ---
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 Cholecystectomy clips. Atrophy of the RIGHT kidney with a right-sided nerve ureteral stent. Bilateral renal cysts. Hysterectomy. Diverticulosis, without acute diverticulitis. No small bowel obstruction. No free intraperitoneal air. --S/p Cystoscopy with bilateral retrograde pyelogram, left ureteral dilation, Left Ureteral Stent Placement, Right Ureteral Stent Exchange by Urology on 05/30/23 by -- Blood culture from 05/28: Gram-positive cocci in clusters--Likely Contamination --Repeat Blood Cx: 05/30: Growing yeast, Soniya: Likely transient from urological procedure/instrumentation -- Urine culture 05/28: 3 types of organisms. (Likely contaminant) -- Repeat urine culture 05/30: Soniya --ECHO: Mild concentric LVH. Severe diffuse left ventricular hypokinesis with focal hypokinesis in the basal inferior wall. EF 25 to 30%. Left atrium is mildly dilated. Gradient is normal for this prosthetic aortic valve. No significant prosthetic regurgitation. Severe mitral annular calcification. No evidence of valvular vegetation within the limitations of the imaging modality. Compared to prior echo in December 2022, left ventricular ejection fraction 30% at that time. -- Appreciate urology input, needs follow-up with urology on discharge -- Continue IV ertapenem--last day of treatment 06/10/2023 --IV Caspofungin changed to fluconazole--last day of treatment 06/15/2023 Final recommendations to be followed with ID. Will need 2-week course of antifungal treatment from clearance of blood cultures Persistent leukocytosis (also on prednisone). Thrombocytopenia improving Repeat blood cultures from 06/02/23:no growth Repeat CXR on 06/04 showed no signs of pneumonia, pleural effusion Discussed with ID Dr. Astudillo--recommends to continue IV ertapenem and fluconazole to complete 2 weeks duration Appreciate ID input Persistent leukocytosis, afebrile Continue current management ALONA on CKD stage III Likely ATN Volume overload Baseline creatinine around 1 Cr 1.7 today Hold home diuretics Continue IV Bumex per nephrology Monitor volume status, renal function Avoid nephrotoxic agents as able Appreciate nephrology input Increased Bumex to 4 mg every 8 hours, added dose of metolazone today Nephrology following No significant improvement despite aggressive IV diuresis Palliative care consulted to address goals of care URI --CXR:No acute cardiopulmonary findings. No change in appearance of the chest. -- BioFire positive for RSV No pneumonia on repeat imaging Saturating well on room air Conservative management Added flutter, Mucinex H/O CAD s/p stent H/O systolic and diastolic CHF ECHO as above Troponin elevation likely demand ischemia in setting of worsening renal function, CHF, volume overload Appreciate Cardiology Input Continue Aspirin, Plavix and statin and metoprolol Had pacemaker interrogation PAF Tachybradycardia syndrome SVT with aberrant conduction S/p pacemaker On Metoprolol Not on anticoagulation due to GI bleed Metoprolol succinate dose increased to 25 mg twice a day History of TIA On aspirin and Plavix and statin Obstructive sleep apnea On CPAP nightly History of rheumatoid arthritis Continue Plaquenil and prednisone 5 mg daily Hypothyroidism Continue levothyroxine DM II HbA1c 7.3 Continue insulin/Sliding scale Monitor H/O Hepatocellular carcinoma S/P embolization Currently following with heme-onc Thrombocytopenia Chronic monitor Severe aortic stenosis S/p TAVR DVT Px: Heparin SQ CODE STATUS full code Admission and Anticipated Discharge Date Admission Date: May 29, 2023 Subjective Patient is seen and examined at bedside States feeling lethargic today Had transient chest pain this morning which currently resolved during my encounter Admits to having persistent cough associated with dyspnea Had bowel movement today No other complaints Review of Systems Review of Systems: All systems reviewed & are unremarkable except as noted in Subjective Physical Exam Physical Exam: Physical Exam: Vitals signs as noted above General Appearance:Obese, no apparent distress Head: normocephalic, Atraumatic Eyes: eyelids remains closed, blind Neck: supple, Trachea midline Respiratory/Chest: Decreased breath sounds, basal crackles, rhonchi, no accesso ry muscle use Cardiovascular: S1, S2,+ murmur Abdomen/GI:Soft, non tender, Bowel sounds present Extremities/Musculoskeletal:normal inspection, 2+ Pedal edema Neurologic/Psych:AAOX3, grossly no focal neurological deficits Skin: normal color, warm Results & Data Results & Data Vital Signs (Past 12 Hours) Vital Signs Temp Pulse Pulse Resp BP Pulse Ox O2 Del Method 06/08/23 15:57 60 06/08/23 15:23 36.4 C L 60 17 112/71 92 Room Air 06/08/23 10:43 36.5 C 62 17 90/55 L 93 Room Air 06/08/23 08:00 36.5 C 78 19 108/73 96 Room Air 06/08/23 08:00 60 06/08/23 08:00 Room Air Laboratory Results Short CBC 06/08/23 Range/Units 06:21 WBC 16.66 H (4.8-10.8) K/ul Hgb 9.4 L (12.0-16.0) g/dl Hct 29.5 L (37.0-47.0) % Plt Count 104 L (130-400) K/uL BMP 06/08/23 06:21 Sodium 139 Potassium 3.9 Chloride 101 Carbon Dioxide 28 BUN 77 H Creatinine 1.75 H Glucose 178 H Calcium 8.6 (1) Sepsis Sepsis acute organ dysfunction status: unspecified Sepsis type: sepsis due to unspecified organism Qualified Code(s): A41.9 - Sepsis, unspecified organism
[2023-06-08] MEDS: INSULIN ASPART PER UNIT CHARGE SC SCH (17:07)
[2023-06-08] MEDS: HEPARIN SOD 5,000 UNIT/0.5 ML VIAL SQ SCH (20:28)
[2023-06-08] MEDS: MICONAZOLE NITRATE POWDER 85 GM EXT SCH (21:36)
[2023-06-09 06:13] LABS: ANTI-Xa, UFH(UnfractionatedHep < 0.10 IU/ml (0.3-0.7); Hematocrit (blood only) 29.4 % (37.0-47.0); Hemoglobin 9.1 g/dl (12.0-16.0); Mean Corpuscular Hemoglobin 27.8 pg (25.0-34.0); Mean Corpuscular Volume 89.9 fL (80.0-100.0); Mean Platelet Volume 11.3 fL (9.4-12.4); Platelet Count 106 K/uL (130-400); RDW Coefficient of Variation 20.9 % (11.5-14.5); RDW Standard Deviation 66.8 fL (36.4-46.3); Red Blood Count 3.27 M/uL (4.20-5.40); White Blood Count 13.58 K/ul (4.8-10.8)
[2023-06-09 06:17] LABS: BUN Creatinine Ratio 49.4 (10-20); Calcium 8.8 mg/dl (8.6-10.3); Creatinine Clr Calc Pharmacy 36.3 ml/min; Est GFR (African American) 37.2 ml/min; Est GFR (Non-African American) 32.1 ml/min; Magnesium 2.1 mg/dl (1.7-2.4); Potassium 3.1 mmol/L (3.5-5.1)
[2023-06-09] MEDS: POTASSIUM CHLORIDE CRTAB 20 MEQ TABCR PO ONE (09:54)
--- NOTE | 2023-06-09 13:00 | Cardiology Progress Note ---
Date of Service June 09, 2023 Assessment & Plan (1) Sepsis: (2) Fungemia: (3) Elevated troponin: (4) HFrEF (heart failure with reduced ejection fraction): (5) S/P TAVR (transcatheter aortic valve replacement): (6) Tachy-wilfrido syndrome: (7) Pacemaker: (8) RSV (respiratory syncytial virus infection): Plan 1. Sepsis 2. Fungemia 3. RSV 4. HFrEF 5. S/P TAVR Supportive care as indicated for RSV. Antibiotics and antifungal as per infectious disease. Continue fluconazole. Continue Bumex 2 mg IV TID. Nephrology input appreciated. Monitor fluid balance, daily weight, GFR, and electrolytes. Goal Serum K>4.0 and Serum mag > 2.0. -737ml fluid balance today. Weights do not appear accurate. 6. Tachy-Wilfrido syndrome 7. Pacemaker -Obtain device interrogation today due to event overnight showing a questionable atrial flutter event from [id number] with rates in the 120s 8. Elevated troponin: Continue dual antiplatelet therapy with aspirin and clopidogrel given TAVR and LAD stent- monitor platelet count (stable). Continue metoprolol 25mg BID with close monitoring of Blood pressure, atorvastatin 40 mg daily Transthoracic echocardiogram this admission revealed stable valvular structure and function, aortic valve prosthesis not well-visualized, ongoing severe left ventricular systolic dysfunction with ejection fraction in the range of 25 to 30%. At present she is not a candidate for CONSTANTINE given respiratory status with CHF and RSV. Patient's prognosis is poor and per discussion with primary team, Palliative care has been consulted. Patient was open to hearing more from the palliative team, but wishes to "think about" what she would like to do at this time. Case has been discussed with Dr. Roberts. Further recommendations regarding plan of care as per his assessment. I spent a total of 30 minutes on the date of service in preparation, delivery, documentation of the care provided to the patient excluding any time spent in the performance of separately billed services. RENITA Hill [facility] Admission and Anticipated Discharge Date Admission Date: May 29, 2023 Supervising Physician Co-Signing Physician Notes I have reviewed the advance practitioner's documentation, and I agree with, and take responsibility for the plan of care. Patient seen and examined at the bedside. Urine output improved over the past 24 hours with titration of Bumex to 4 mg 3 times daily. She also received a dose of metolazone yesterday from nephrology. Converted to atrial fibrillation with controlled ventricular response on telemetry. She is not chronically anticoagulated due to bleeding risk. Patient considering palliative care options. PE: VSS. Gen: Obese. Chronically ill, NAD, awake and alert. Heart: Irregular rhythm, normal S1-S2. No murmur. Lungs: Bilateral rhonchi with expiratory wheeze. Extremities: 1+ bilateral pretibial edema. A/P: 73-year-old female with acute on chronic heart failure (LVEF 25-30%), sepsis, and fungemia. Recent events include episodes of paroxysmal supraventricular tachycardia. Paroxysmal atrial fibrillation on telemetry today with controlled ventricular response. Toprol-XL titrated to 25 mg twice daily 06/07/2023. Urine output improved with titration of Bumex. Nephrology input appreciated. Continue 4 mg IV 3 times daily. Follow fluid balance, daily weight, GFR, and electrolytes. Antibiotics/antifungal as per infectious disease. Currently, patient is not a candidate for transesophageal e chocardiogram. Poor prognosis patient considering palliative care options at this time. All questions answered to patient's satisfaction. I spent a total of 30 minutes on the date of service in preparation, delivery, and documentation of the care provided to this patient, excluding any time spent in the performance of separately billed services. Subjective 06/09/23: Patient seen and examined today in follow up. She reports feeling more tired and just not feeling well overall. Denies any chest pain, pressure, palpitations, no change or worsening breathing concerns. Palliative medicine was consulted yesterday and per discussion with nursing staff, patient and family wish to "think about it". Plan to reassess on Tuesday. Review of telemetry demonstrates Pacing 70's. No acute events overnight. Notes, labs/diagnostics, vitals and telemetry reviewed. Review of Systems Review of Systems: All systems reviewed & are unremarkable except as noted in HPI & below Physical Exam Constitutional: + ill appearing and + morbidly obese Neck: normal visual inspection and trachea midline Respiratory: normal respiratory effort, + cough and + audible wheezes; no labored breathing Auscultation: + rhonchi (throughout) and + wheezes (throughout) Cardiovascular: Rate/Rhythm: regular rate and regular rhythm Heart Sounds: normal S1 and normal S2 Vessels: no JVD Extremities: + edema (+2 BLE) Skin: no rashes, warm and dry Psychiatric: Orientation: alert, oriented x 3 and cooperative Affect: + flat affect Results & Data Vital Signs (Past 12 Hours) Vital Signs Temp Pulse Pulse Resp BP Pulse Ox O2 Del Method 06/09/23 11:35 36.8 C 63 18 127/77 96 Room Air 06/09/23 11:06 Room Air 06/09/23 10:52 36.4 C L 75 18 106/61 96 Room Air 06/09/23 07:24 78 06/09/23 07:00 36.3 C L 79 20 115/78 97 Room Air 06/09/23 03:50 36.2 C L 80 20 110/74 93 Room Air Laboratory Results CBC 06/09/23 Range/Units 05:45 WBC 13.58 H (4.8-10.8) K/ul RBC 3.27 L (4.20-5.40) M/uL Hgb 9.1 L (12.0-16.0) g/dl Hct 29.4 L (37.0-47.0) % Plt Count 106 L (130-400) K/uL Comprehensive Metabolic Panel 06/09/23 Range/Units 05:45 Sodium 140 (136-145) mmol/L Potassium 3.1 L D (3.5-5.1) mmol/L Chloride 102 (98-107) mmol/L Carbon Dioxide 30 (21-32) mmol/L BUN 78 H (6-23) mg/dl Creatinine 1.58 H (0.6-1.2) mg/dl Glucose 91 (70-99(Fasting)) mg/dl Calcium 8.8 (8.6-10.3) mg/dl Intake and Output 06/08/23 06/09/23 06/09/23 22:59 06:59 14:59 Intake Total 116.733 / 1137.917 Output Total 1375 / 1875 Balance 116.733 / -737.083 -1375 / -737.083 Intake: IV 116.733 / 957.917 Heparin Sodium/Dextrose 25,000 116.733 / 260.667 units In 500 ml @ 850 UNITS/HR 17 mls/hr IV .Q24H [facility] Rx#: [id number] Output: Urine Amount (Catheter) 1374 Red/Indwelling 1374 (1) Sepsis Sepsis acute organ dysfunction status: unspecified Sepsis type: sepsis due to unspecified organism Qualified Code(s): A41.9 - Sepsis, unspecified organism
--- NOTE | 2023-06-09 15:20 | Hospitalist Progress Note ---
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 Cholecystectomy clips. Atrophy of the RIGHT kidney with a right-sided nerve ureteral stent. Bilateral renal cysts. Hysterectomy. Diverticulosis, without acute diverticulitis. No small bowel obstruction. No free intraperitoneal air. --S/p Cystoscopy with bilateral retrograde pyelogram, left ureteral dilation, Left Ureteral Stent Placement, Right Ureteral Stent Exchange by Urology on 05/30/23 by -- Blood culture from 05/28: Gram-positive cocci in clusters--Likely Contamination --Repeat Blood Cx: 05/30: Growing yeast, Soniya: Likely transient from urological procedure/instrumentation -- Urine culture 05/28: 3 types of organisms. (Likely contaminant) -- Repeat urine culture 05/30: Soniya --ECHO: Mild concentric LVH. Severe diffuse left ventricular hypokinesis with focal hypokinesis in the basal inferior wall. EF 25 to 30%. Left atrium is mildly dilated. Gradient is normal for this prosthetic aortic valve. No significant prosthetic regurgitation. Severe mitral annular calcification. No evidence of valvular vegetation within the limitations of the imaging modality. Compared to prior echo in December 2022, left ventricular ejection fraction 30% at that time. -- Appreciate urology input, needs follow-up with urology on discharge -- Continue IV ertapenem--last day of treatment 06/10/2023 --IV Caspofungin changed to fluconazole--last day of treatment 06/15/2023 Final recommendations to be followed with ID. Leukocytosis, thrombocytopenia improving Repeat blood cultures from 06/02/23:no growth Repeat CXR on 06/04 showed no signs of pneumonia, pleural effusion Discussed with ID Dr. Astudillo--recommends to continue IV ertapenem and fluconazole to complete 2 weeks duration Appreciate ID input Needs follow-up with urology on discharge Poor prognosis ALONA on CKD stage III Likely ATN Volume overload Baseline creatinine around 1 Cr 1.5 today Hold home diuretics Continue IV Bumex per nephrology Monitor volume status, renal function Avoid nephrotoxic agents as able Appreciate nephrology input Increased Bumex to 4 mg every 8 hours, added dose of metolazone today Nephrology following No significant improvement despite aggressive IV diuresis Palliative care consulted to address goals of care Hypokalemia Secondary to IV diuretics Monitor and replete electrolytes as needed URI --CXR:No acute cardiopulmonary findings. No change in appearance of the chest. -- BioFire positive for RSV No pneumonia on repeat imaging Saturating well on room air Conservative management Added flutter, Mucinex, hypertonic saline nebs H/O CAD s/p stent H/O systolic and diastolic CHF ECHO as above Troponin elevation likely demand ischemia in setting of worsening renal function, CHF, volume overload Appreciate Cardiology Input Continue Aspirin, Plavix and statin and metoprolol Had pacemaker interrogation PAF Tachybradycardia syndrome SVT with aberrant conduction S/p pacemaker On Metoprolol Not on anticoagulation due to GI bleed Metoprolol succinate dose increased to 25 mg twice a day History of TIA On aspirin and Plavix and statin Obstructive sleep apnea On CPAP nightly History of rheumatoid arthritis Continue Plaquenil and prednisone 5 mg daily Hypothyroidism Continue levothyroxine DM II HbA1c 7.3 Continue insulin/Sliding scale Monitor H/O Hepatocellular carcinoma S/P embolization Currently following with heme-onc Thrombocytopenia Chronic monitor Severe aortic stenosis S/p TAVR DVT Px: Heparin SQ CODE STATUS Full code for now Palliative care plans to readdress goals of care tomorrow Admission and Anticipated Discharge Date Admission Date: May 29, 2023 Subjective Patient is seen and examined at bedside Continues to have cough, dyspnea Reports soreness of sacral region Poor sleep overnight Discussed with cardiology today No other complaints Review of Systems Review of Systems: All systems reviewed & are unremarkable except as noted in Subjective Physical Exam Physical Exam: Physical Exam: Vitals signs as noted above General Appearance:Obese, no apparent distress Head: normocephalic, Atraumatic Eyes: eyelids remains closed, blind Neck: supple, Trachea midline Respiratory/Chest: Decreased breath sounds, basal crackles, rhonchi, no accessory muscle use Cardiovascular: S1, S2,+ murmur Abdomen/GI:Soft, non tender, Bowel sounds present Extremities/Musculoskeletal:normal inspection, 2+ Pedal edema Neurologic/Psych:AAOX3, grossly no focal neurological deficits Skin: normal color, warm Results & Data Results & Data Vital Signs (Past 12 Hours) Vital Signs Temp Pulse Pulse Resp BP Pulse Ox O2 Del Method 06/09/23 11:35 36.8 C 63 18 127/77 96 Room Air 06/09/23 11:06 Room Air 06/09/23 10:52 36.4 C L 75 18 106/61 96 Room Air 06/09/23 07:24 78 06/09/23 07:00 36.3 C L 79 20 115/78 97 Room Air 06/09/23 03:50 36.2 C L 80 20 110/74 93 Room Air Laboratory Results Short CBC 06/09/23 Range/Units 05:45 WBC 13.58 H (4.8-10.8) K/ul Hgb 9.1 L (12.0-16.0) g/dl Hct 29.4 L (37.0-47.0) % Plt Count 106 L (130-400) K/uL BMP 06/09/23 05:45 Sodium 140 Potassium 3.1 L D Chloride 102 Carbon Dioxide 30 BUN 78 H Creatinine 1.58 H Glucose 91 Calcium 8.8 (1) Sepsis Sepsis acute organ dysfunction status: unspecified Sepsis type: sepsis due to unspecified organism Qualified Code(s): A41.9 - Sepsis, unspecified organism
[2023-06-09] MEDS: SODIUM CHLOR 7% 4 ML NEB NEB SCH (19:46)
[2023-06-09] MEDS: guaiFENesin 600 MG TABCR PO SCH (20:16)
[2023-06-09] MEDS: MELATONIN 3 MG TAB PO PRN (20:21)
[2023-06-09] MEDS: POTASSIUM CHLORIDE 10 MEQ TABCR PO SCH (20:21)
--- NOTE | 2023-06-10 08:29 | Cardiology Progress Note ---
Date of Service June 10, 2023 Assessment & Plan (1) Sepsis: (2) Fungemia: (3) Elevated troponin: (4) HFrEF (heart failure with reduced ejection fraction): (5) S/P TAVR (transcatheter aortic valve replacement): (6) Tachy-wilfrido syndrome: (7) Pacemaker: (8) RSV (respiratory syncytial virus infection): Plan 1. Sepsis 2. Fungemia 3. RSV 4. HFrEF 5. S/P TAVR Supportive care as indicated for RSV. Antibiotics and antifungal as per infectious disease. Continue fluconazole. Continue Bumex 4mg IV BID. Nephrology also on consult Monitor fluid balance, daily weight, GFR, and electrolytes. Goal Serum K>4.0 and Serum mag > 2.0. -650 ml fluid balance today. Weights do not appear accurate. 6. Tachy-Wilfrido syndrome 7. Pacemaker -No acute events since last interrogation 8. Elevated troponin: Continue dual antiplatelet therapy with aspirin and clopidogrel given TAVR and LAD stent- monitor platelet count (stable). Continue metoprolol 25mg BID with close monitoring of Blood pressure, atorvastatin 40 mg daily Transthoracic echocardiogram this admission revealed stable valvular structure and function, aortic valve prosthesis not well-visualized, ongoing severe left ventricular systolic dysfunction with ejection fraction in the range of 25 to 30%. At present she is not a candidate for CONSTANTINE given respiratory status with CHF and RSV. Patient's prognosis is poor and per discussion with primary team, Palliative care has been consulted. Patient was open to hearing more from the palliative team, but wishes to "think about" what she would like to do at this time. They are to be seeing her and family today. Case has been discussed with Dr. Roberts. Further recommendations regarding plan of care as per his assessment. I spent a total of 30 minutes on the date of service in preparation, delivery, documentation of the care provided to the patient excluding any time spent in the performance of separately billed services. RENITA Hill [facility] Admission and Anticipated Discharge Date Admission Date: May 29, 2023 Supervising Physician Co-Signing Physician Notes I have reviewed the advance practitioner's documentation, and I agree with, and take responsibility for the plan of care. Patient seen and examined at the bedside. 73-year-old female with prolonged hospitalization due to sepsis/fungemia, acute RSV infection, acute on chronic heart failure with reduced ejection fraction (LVEF 25-30%) in setting of CKD, and morbid obesity. Fluid balance -2550 cc over past 24 hours. Improved with titration of Bumex to 4 mg 3 times daily 06/08/2023. Episodes of paroxysmal atrial fibrillation and paroxysmal supraventricular tachycardia noted on telemetry. Blood pressure remains borderline hypotensive. ICD interrogation performed during hospitalization confirming PSVT (likely PAT, as well as episodes of paroxysmal atrial fibrillation and flutter. Not chronically anticoagulated due to history of bleeding, hemorrhoidal bleeding, AVMs, thrombocytopenia, for cancer, and fall risk. Patient considering palliative care options. PE: VSS. Gen: Obese. Chronically ill, NAD, awake and alert. Heart: Irregular rhythm, normal S1-S2. No murmur. Lungs: Bilateral rhonchi with expiratory wheeze. Extremities: 1+ bilateral pretibial edema. A/P: 73-year-old female with acute on chronic heart failure (LVEF 25-30%), sepsis, and fungemia. Recent events include episodes of paroxysmal supraventricular tachycardia and paroxysmal atrial fibrillation on telemetry. Toprol-XL titrated to 25 mg twice daily 06/07/2023. Continue Bumex 4 mg IV 3 times daily. Nephrology input appreciated. Follow fluid balance, daily weight, GFR, and electrolytes. Antibiotics/antifungal as per infectious disease. Currently, patient is not a candidate for transesophageal echocardiogram. Poor prognosis. Patient considering palliative care options at this time. Family present today for consultation with palliative care management. I spent a total of 35 minutes on the date of service in preparation, delivery, and documentation of the care provided to this patient, excluding any time spent in the performance of separately billed services. Subjective 06/10/23: Patient seen and examined in follow up today, she is resting in bed. offers no complaints of chest pain, pressure, palpitations. Endorses ongoing shorntess of breath, no worse than before. Ongoing lower extremity edema, with significant decrease since time of admission. -650cc today. no daily trended weights to view Palliative care to see patient today as well. Labs/diagnostics, notes, vital and telemetry reviewed. REviewed of telemetry shows paced with A-fib overnight. no acute events. Review of Systems Review of Systems: All systems reviewed & are unremarkable except as noted in HPI & below Physical Exam Constitutional: + ill appearing and + morbidly obese Neck: normal visual inspection and trachea midline Respiratory: normal respiratory effort, + cough and + audible wheezes; no labored breathing Auscultation: + rhonchi (throughout) and + wheezes (throughout) Cardiovascular: Rate/Rhythm: regular rate and regular rhythm Heart Sounds: normal S1 and normal S2 Vessels: no JVD Extremities: + edema (+2 BLE) Skin: no rashes, warm and dry Psychiatric: Orientation: alert, oriented x 3 and cooperative Affect: + flat affect Results & Data Vital Signs (Past 12 Hours) Vital Signs Temp Pulse Resp BP Pulse Ox O2 Del Method 06/10/23 07:31 36.7 C 60 16 100/41 L 94 Room Air 06/10/23 07:00 102 H 17 96 Room Air 06/10/23 03:22 36.6 C 60 20 95/60 L 94 Room Air 06/09/23 22:48 36.9 C 73 18 90/57 L 92 Room Air Laboratory Results CBC 06/10/23 Range/Units 08:52 WBC 12.23 H (4.8-10.8) K/ul RBC 3.25 L (4.20-5.40) M/uL Hgb 9.1 L (12.0-16.0) g/dl Hct 28.8 L (37.0-47.0) % Plt Count 130 (130-400) K/uL Comprehensive Metabolic Panel 06/10/23 Range/Units 08:52 Sodium 139 (136-145) mmol/L Potassium 3.3 L (3.5-5.1) mmol/L Chloride 99 (98-107) mmol/L Carbon Dioxide 30 (21-32) mmol/L BUN 79 H (6-23) mg/dl Creatinine 1.56 H (0.6-1.2) mg/dl Glucose 106 H (70-99(Fasting)) mg/dl Calcium 8.7 (8.6-10.3) mg/dl Intake and Output 06/09/23 06/10/23 06/10/23 22:59 06:59 14:59 Intake Total 100 / 100 100 / 100 Output Total 650 / 2900 450 / 2900 750 / 750 Balance -650 / -2800 -350 / -2800 -650 / -650 Intake: Oral 100 / 100 100 / 100 Output: Urine Amount (Catheter) 650 / 2900 450 / 2900 750 / 750 Red/Indwelling 650 / 2900 450 / 2900 750 / 750 Other: Weight 101.8 kg Weight Measurement Method [facility] (1) Sepsis Sepsis acute organ dysfunction status: unspecified Sepsis type: sepsis due to unspecified organism Qualified Code(s): A41.9 - Sepsis, unspecified organism
[2023-06-10 09:41] LABS: Hematocrit (blood only) 28.8 % (37.0-47.0); Hemoglobin 9.1 g/dl (12.0-16.0); Mean Corpuscular Hgb Conc 31.6 g/dL (32.0-36.0); Mean Corpuscular Volume 88.6 fL (80.0-100.0); Mean Platelet Volume 11.7 fL (9.4-12.4); Platelet Count 130 K/uL (130-400); RDW Coefficient of Variation 20.3 % (11.5-14.5); RDW Standard Deviation 64.6 fL (36.4-46.3); Red Blood Count 3.25 M/uL (4.20-5.40); White Blood Count 12.23 K/ul (4.8-10.8)
[2023-06-10] MEDS: ERTAPENEM SODIUM 1,000 MG in SYRINGE 0 ML IV SCH (09:49)
[2023-06-10 09:53] LABS: BUN Creatinine Ratio 50.6 (10-20); Calcium 8.7 mg/dl (8.6-10.3); Creatinine Clr Calc Pharmacy 36.6 ml/min; Est GFR (African American) 37.8 ml/min; Est GFR (Non-African American) 32.6 ml/min; Magnesium 2.1 mg/dl (1.7-2.4); Potassium 3.3 mmol/L (3.5-5.1)
--- NOTE | 2023-06-10 11:03 | Pharmacy Report ---
Pharmacy Glycemic Sign Off Nt - Date of Service June 10, 2023 - Assessment & Plan ASSESSMENT: * Pharmacy was consulted by Dr. Gannon on 06/08/23 for glycemic control and to write orders per [facility] inpatient glycemic control protocol. * Major changes made by pharmacy to antidiabetic regimen include: * Starting basal-bolus regimen * Patient has been receiving/requiring 0 units of insulin per day for adequate glycemic control * BSGs ranging 93-143 mg/dL * Regimen has required no adjustments * Do not anticipate further changes in patient status that would quickly deteriorate glycemic control (i.e. patient to be NPO for upcoming procedure, steroids tapering, starting tube feedings, etc). PLAN FOR INPATIENT GLYCEMIC CONTROL: No changes needed to current regimen. * Continue basal insulin with Lantus 0-5 units SC BID * Continue NovoLog per scale ACHS/Q6hrs while NPO * Goal range = 110-140 mg/dl * CF = 35 mg/dl/unit * CR = 1 unit for every 10 g CHO consumed * Pharmacy is signing off of glycemic consult and will no longer be making adjustments to inpatient regimen. Please feel free to re-consult if needed. Thank you.
--- NOTE | 2023-06-10 14:36 | Hospitalist Progress Note ---
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 Cholecystectomy clips. Atrophy of the RIGHT kidney with a right-sided nerve ureteral stent. Bilateral renal cysts. Hysterectomy. Diverticulosis, without acute diverticulitis. No small bowel obstruction. No free intraperitoneal air. --S/p Cystoscopy with bilateral retrograde pyelogram, left ureteral dilation, Left Ureteral Stent Placement, Right Ureteral Stent Exchange by Urology on 05/30/23 by -- Blood culture from 05/28: Gram-positive cocci in clusters--Likely Contamination --Repeat Blood Cx: 05/30: Growing yeast, Soniya: Likely transient from urological procedure/instrumentation -- Urine culture 05/28: 3 types of organisms. (Likely contaminant) -- Repeat urine culture 05/30: Soniya --ECHO: Mild concentric LVH. Severe diffuse left ventricular hypokinesis with focal hypokinesis in the basal inferior wall. EF 25 to 30%. Left atrium is mildly dilated. Gradient is normal for this prosthetic aortic valve. No significant prosthetic regurgitation. Severe mitral annular calcification. No evidence of valvular vegetation within the limitations of the imaging modality. Compared to prior echo in December 2022, left ventricular ejection fraction 30% at that time. -- Appreciate urology input, needs follow-up with urology on discharge -- Continue IV ertapenem--last day of treatment 06/10/2023 --IV Caspofungin changed to fluconazole--last day of treatment 06/15/2023 Final recommendations to be followed with ID. Leukocytosis, thrombocytopenia improving Repeat blood cultures from 06/02/23:no growth Repeat CXR on 06/04 showed no signs of pneumonia, pleural effusion Discussed with ID Dr. Astudillo--recommends to continue IV ertapenem and fluconazole to complete 2 weeks duration Appreciate ID input Needs follow-up with urology on discharge Poor prognosis Addendum: Ertapenem got dropped after dose of 06/07, resuming ertapenem to complete the course. Continue with fluconazole, patient has been afebrile. ALONA on CKD stage III Likely ATN Volume overload Baseline creatinine around 1 Cr 1.5 today Hold home diuretics Continue IV Bumex per nephrology Monitor volume status, renal function Avoid nephrotoxic agents as able Appreciate nephrology input Increased Bumex to 4 mg every 8 hours, added dose of metolazone today Nephrology following No significant improvement despite aggressive IV diuresis Palliative care consulted to address goals of care Addendum: Potassium supplemented, labs in a.m., nephrology and cardiology managing diuresis. Appreciate recommendation. Possible palliative care meeting later in the day today per patient's son at bedside. Hypokalemia Secondary to IV diuretics Monitor and replete electrolytes as needed URI --CXR:No acute cardiopulmonary findings. No change in appearance of the chest. -- BioFire positive for RSV No pneumonia on repeat imaging Saturating well on room air Conservative management Added flutter, Mucinex, hypertonic saline nebs Addendum: Continue supportive care and droplet isolation. H/O CAD s/p stent H/O systolic and diastolic CHF ECHO as above Troponin elevation likely demand ischemia in setting of worsening renal function, CHF, volume overload Appreciate Cardiology Input Continue Aspirin, Plavix and statin and metoprolol Had pacemaker interrogation PAF Tachybradycardia syndrome SVT with aberrant conduction S/p pacemaker On Metoprolol Not on anticoagulation due to GI bleed Metoprolol succinate dose increased to 25 mg twice a day History of TIA On aspirin and Plavix and statin Obstructive sleep apnea On CPAP nightly History of rheumatoid arthritis Continue Plaquenil and prednisone 5 mg daily Hypothyroidism Continue levothyroxine DM II HbA1c 7.3 Continue insulin/Sliding scale Monitor H/O Hepatocellular carcinoma S/P embolization Currently following with heme-onc Thrombocytopenia Chronic monitor Severe aortic stenosis S/p TAVR DVT Px: Heparin SQ CODE STATUS Full code for now Palliative care plans to readdress goals of care tomorrow Addendum: For other chronic medical condition continue prior medications as able. No new acute issues today. No new acute complaints today. Admission and Anticipated Discharge Date Admission Date: May 29, 2023 Subjective Patient was seen and examined at bedside. Patient was lying in bed, on room air, NAD. Patient reports occasional shortness of breath but pulse ox are good, occasional cough, cannot comment on the color of the sputum. Patient reports no chest pain or palpitation. Patient does have ongoing lower extremity edema. Patient's son and grandson at bedside, awaiting for palliative care meeting later in the day today. Physical Exam Physical Exam: General Appearance:Obese, no apparent distress Head: normocephalic, Atraumatic Eyes: eyelids remains closed, blind Neck: supple, Trachea midline Respiratory/Chest: Decreased breath sounds, basal crackles, rhonchi, no accessory muscle use Cardiovascular: S1, S2,+ murmur Abdomen/GI:Soft, non tender, Bowel sounds present Extremities/Musculoskeletal:normal inspection, 2+ Pedal edema Neurologic/Psych:AAOX3, grossly no focal neurological deficits Skin: normal color, warm Results & Data Results & Data Vital Signs (Past 12 Hours) Vital Signs Temp Pulse Resp BP Pulse Ox O2 Del Method 06/10/23 11:05 36.3 C L 60 17 94/45 L 90 Room Air 06/10/23 08:00 Room Air 06/10/23 07:31 36.7 C 60 16 100/41 L 94 Room Air 06/10/23 07:00 102 H 17 96 Room Air 06/10/23 03:22 36.6 C 60 20 95/60 L 94 Room Air (1) Sepsis Sepsis acute organ dysfunction status: unspecified Sepsis type: sepsis due to unspecified organism Qualified Code(s): A41.9 - Sepsis, unspecified organism
[2023-06-10] MEDS: POTASSIUM CHLORIDE CRTAB 20 MEQ TABCR PO STA (15:24)
[2023-06-10] MEDS ORDERED: LORazepam 0.5 MG TAB PO PRN (15:25)
[2023-06-10] MEDS ORDERED: HYDROmorphone HCL 2 MG TAB PO PRN (15:30)
--- NOTE | 2023-06-10 15:35 | Palliative Family Discussion ---
Date of Service June 10, 2023 Patient Directed Conference Time of Meetinpm-245pm Participants: Gayathri Mccabe DNP Patient participation: yes Patient Support System: yes son and grandson Other Healthcare Provider Participation: None Meeting Location: pt bedside Advanced Directive available: No A family meeting was held for ORQUIDEA MCKEON. This meeting was necessary for determining the appropriate course of treatment. She is resting in bed, NAD no resp distress no conversational dyspnea she reports discomfort in BLE esther backs of her legs which are noted to be erythematous in patches c/w cellulitis lungs diminished with crackles abd obese, non tender, +pannus generalized weakness AAOx3 skin pale, cool to touch Pt si legally blind Topics of Discussion Topics of Discussion: 1. Orquidea has been admitted since 05/29/23, this has been a prolonged hospitalization due to sepsis/fungemia, RSV, acute on chronic heart failure with reduced ejection fraction (LVEF 25-30%) in setting of worsening CKD w/ATN + sepsis and obstructive uropathy. S/p Stent on 05/30. Progressively weaker in spite of escalating tx and interventions. Pt states she had discussions with cardiology and nephrology and after some time to think about it all, she has come to understand she does not have a fixable situation. She tells us she is tired, weak and overall suffering. She wants a focus on comfort and would like to be home for her EOL care but is also worried about how family can support this because of limited availability. 2. Her son states pt cannot care for her at home, is too weak and would not be able to manage her physically or medically. He adds that there are not enough caregivers to help manage her at home and he feels she needs to be somewhere that can manage her needs 01/11 and focus on comfort. 3. They inquired about hospice. We discussed the goals of hospice as a patient service and the goals of care; we discussed EOL trajectories and transitions esther the emotional impact of realizing mortality as a concrete reality from prior abstract considerations. Pt was reassured that no matter where they are along this trajectory, they are not alone - their medical team will remain by their side through their journey. Discussed the pros/cons of accepting help when especially weakened and distressed by pain-which would also help provide relief/decrease caregiver burden/strain. I provided education about the hospice benefit: an interdisciplinary program offered by nurses, nurses aides, social workers, chaplains and a medical management specialist for patients with a terminal condition and a life expectancy of less than 6 months. This is covered by Medicare at 100%/no out of pocket expense to patient and all meds/supplies needed by patient for the reason they are on hospice are paid for/covered by hospice. The goal is assure quality of life of the patient in their home setting (home, retirement, inpatient hospice setting) by providing symptoms management, psychosocial and spiritual support. However, they cannot offer 24 hours care and if the family is unable to provide that care, they will have to consider personal care with out of pocket cost vs. retirement placement. We discussed the goals of hospice as a patient service and the goals of care; we discussed EOL trajectories and transitions esther the emotional impact of realizing mortality as a concrete reality from prior abstract considerations. Pt was reassured that no matter where they are along this trajectory, they are not alone - their medical team will remain by their side through their journey. Discussed the pros/cons of acc epting help when especially weakened and distressed by pain-which would also help provide relief/decrease caregiver burden/strain. 4. They would like SNF with hospice. They know she is nearing her dying time and want to focus on QOL and comfort. Other Content of Meetin. Opportunity given for participants to speak and ask questions. 2. Participants were assured of attention to patient comfort. 3. Reassurance provided. 4. Support was provided for informed, good-kortney decisions. 5. Emotions expressed by family were acknowledged and addressed. 6. Follow-up Outpatient: SNF comfort care with hospice 7. Plan of Care: Move to comfort care today, stop non essentials and no more tests, monitoring etc. Will continue Abtx for comfort until a dc plan is confirmed and then can move to oral regimen if able. Son is clear he does not want Abtx stopped until we see if it is helping or nor helping so we agreed to see how she does with it through the weekend. 8. Discussed changes pt may move through in the dying process including but not limited to sleeping more, disorientation when awake, restlessness, diminished senses/inability to respond to stimulus although ability to be aware of them remains intact longer, and changes in body temperatures, skin changes/mottling/cyanosis, respiratory pattern changes, and oral secretions. Family verbalized understanding. The goal is to assure a peaceful . 9. Oxygen at EOL: For patients at the end of life, oxygen delivered by a nasal cannula provides no additional symptomatic benefit for relief of refractory dyspnea in patients with life-limiting illness compared with room air: there's a point at which that the oxygen level gets so low that it's no longer compatible with life. By providing supplemental oxygen, the dying process will be unnecessarily prolonged. Please use less burdensome but more effective strategies such as comfort care meds, oscillating fan, massage, repositioning, etc. (Nallely AP, Tyshawn CF, Marino PA, et al. Effect of palliative oxygen versus room air in relief of breathlessness in patients with refractory dyspnoea: a double-blind, randomised controlled trial. Lancet. 2010;376(0426):676-793. doi:10.1016/L[address]18(03)59699-4) Time Involved in Meeting: I spent 60 minutes overall addressing this case: 5 in medical data review/discussion with referring provider(s) and/or preparation for the visit 10 in direct interaction with the patient [] 30 Advance Care Planning/Goals of Care discussions as detailed above in note (must be >16min) 5 in subsequent review and synthesis of assessment and plan 10 in communicating with other providers regarding the patient's case: nursing, dr can Thank you for allowing us to participate in the ongoing care of this patient. Please don't hesitate to call or page with any additional concerns. Dr. Gayathri Mccabe DNP Director, Palliative Care
[2023-06-10] MEDS: HYDROmorphone HCL 4 MG TAB PO PRN (21:58)
--- NOTE | 2023-06-11 18:36 | Hospitalist Progress Note ---
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, generalized osteoarthritis, open-angle glaucoma, iron deficiency anemia, thrombocytopenia, history of kidney stones who lives at home with her presents with nausea vomiting and diarrhea going for last few days Found to be in sepsis and UTI and kidney stone Multiple comorbid conditions as mentioned below She remains critical but stable as of 06/11/2023 Will continue current aggressive management including blood test and keeping in loop with the family members and updating them regularly Will see if there is any improvement for the next 2 to 3 days before she could be moved for comfort care and/or hospice care All the questions by the family members were answered Sepsis Complicated UTI Lactic acidosis Fungemia H/O ESBL Proteus Thrombocytopenia --CT abd: Partially obstructing stone in the LEFT renal pelvis measures 8 mm. Cholecystectomy clips. Atrophy of the RIGHT kidney with a right-sided nerve ureteral stent. Bilateral renal cysts. Hysterectomy. Diverticulosis, without acute diverticulitis. No small bowel obstruction. No free intraperitoneal air. --S/p Cystoscopy with bilateral retrograde pyelogram, left ureteral dilation, Left Ureteral Stent Placement, Right Ureteral Stent Exchange by Urology on 05/30/23 by -- Blood culture from 05/28: Gram-positive cocci in clusters--Likely Contamination --Repeat Blood Cx: 05/30: Growing yeast, Soniya: Likely transient from urological procedure/instrumentation -- Urine culture 05/28: 3 types of organisms. (Likely contaminant) -- Repeat urine culture 05/30: Soniya --ECHO: Mild concentric LVH. Severe diffuse left ventricular hypokinesis with focal hypokinesis in the basal inferior wall. EF 25 to 30%. Left atrium is mildly dilated. Gradient is normal for this prosthetic aortic valve. No significant prosthetic regurgitation. Severe mitral annular calcification. No evidence of valvular vegetation within the limitations of the imaging modality. Compared to prior echo in December 2022, left ventricular ejection fraction 30% at that time. -- Appreciate urology input, needs follow-up with urology on discharge -- Continue IV ertapenem--last day of treatment 06/10/2023 --IV Caspofungin changed to fluconazole--last day of treatment 06/15/2023 Final recommendations to be followed with ID. Leukocytosis, thrombocytopenia improving Repeat blood cultures from 06/02/23:no growth Repeat CXR on 06/04 showed no signs of pneumonia, pleural effusion Discussed with ID Dr. Astudillo--recommends to continue IV ertapenem and fluconazole to complete 2 weeks duration Appreciate ID input and recommendation Needs follow-up with urology on discharge Patient remains critical but stable Discussed with the family members and answered all of their questions Plan is to continue with the current management aggressively and see how she does for the next 2 to 3 days Family members will be updated regularly/daily ALONA on CKD stage III Likely ATN Volume overload Baseline creatinine around 1 Cr 1.5 today Hold home diuretics Continue IV Bumex per nephrology Monitor volume status, renal function Avoid nephrotoxic agents as able Appreciate nephrology input Increased Bumex to 4 mg every 8 hours, added dose of metolazone today Nephrology following No significant improvement despite aggressive IV diuresis Appreciate palliative care input and recommendation-recommended for comfort care Long discussion with the family members and the patient will be treated aggressively for the next 2 to 3 days to see if there is any improvement before putting her on to comfort care Hypokalemia Secondary to IV diuretics Monitor and replete electrolytes as needed URI --CXR:No acute cardiopulmonary findings. No change in appearance of the chest. -- BioFire positive for RSV No pneumonia on repeat imaging Saturating well on room air Conservative management Added flutter, Mucinex, hypertonic saline nebs Clinically better denies any acute respiratory distress at rest H/O CAD s/p stent H/O systolic and diastolic CHF ECHO as above Troponin elevation likely demand ischemia in setting of worsening renal function, CHF, volume overload Appreciate Cardiology Input Continue Aspirin, Plavix and statin and metoprolol Had pacemaker interrogation Chronic elevation of the troponin but doubt any ACS and that was explained to the family members PAF Tachybradycardia syndrome SVT with aberrant conduction S/p pacemaker On Metoprolol Not on anticoagulation due to GI bleed Metoprolol succinate dose increased to 25 mg twice a day History of TIA On aspirin and Plavix and statin Obstructive sleep apnea On CPAP nightly History of rheumatoid arthritis Continue Plaquenil and prednisone 5 mg daily Hypothyroidism Continue levothyroxine DM II HbA1c 7.3 Continue insulin/Sliding scale Monitor H/O Hepatocellular carcinoma S/P embolization Currently following with heme-onc Thrombocytopenia Chronic monitor Severe aortic stenosis S/p TAVR DVT Px: Heparin SQ CODE STATUS Full code for now Palliative care plans to readdress goals of care tomorrow Admission and Anticipated Discharge Date Admission Date: May 29, 2023 Subjective 06/11/2023 The patient was seen and examined in presence of the family members The patient remains very weak and lethargic and very critical Complains to have nausea and abdominal discomfort/pain but denies any other acute distress Review of Systems Review of Systems: All systems reviewed and are unremarkable except as noted below Physical Exam Physical Exam: Lying in bed without any acute distress Constitutional: well developed, well nourished, + ill appearing and + obese Eyes: PERRL, conjunctivae normal, anicteric sclerae ENMT: external ear and nose normal, oropharynx normal Neck: trachea midline, no thyromegaly Respiratory: no respiratory distress Auscultation: + diminished lung sounds; no crackles Cardiovascular: Rate/Rhythm: regular rate and regular rhythm; not tachycardic Heart Sounds: normal S1, normal S2 and + murmur (2/6 ESM over precordium) Extremities: + edema (Trace to 1+ edema bilaterally) Gastrointestinal (Abdomen): Inspection/Auscultation: + abdomen distended and normal bowel sounds Percussion/Palpation: + abdomen tender (Mildly tender all over) and abdomen soft Musculoskeletal: No acute arthritis involving any joint Skin: Generalized bruising all over the body Neurologic: normal touch/pain/proprioception and moves all extremities; no focal motor deficits Remains extremely weak and lethargic Lymphatic: no cervical or axillary lymphadenopathy Results & Data Results & Data Vital Signs (Past 12 Hours) Vital Signs O2 Del Method 06/11/23 10:32 Room Air Medications Administered Current Inpatient Medications Acetaminophen (Acetaminophen 325 Mg Tab) 650 mg PO Q4H PRN PRN Reason: Pain or Fever Stop: 06/28/23 04:34 Last Admin: 06/10/23 15:42 Dose: 650 mg Acetaminophen (Acetaminophen 500 Mg Tab) 500 mg PO HS [facility] Stop: 06/28/23 20:59 Last Admin: 06/10/23 20:07 Dose: 500 mg Ascorbic Acid (Ascorbic Acid 500 Mg Tab) 500 mg PO DAILY [facility] Stop: 06/28/23 08:59 Last Admin: 06/11/23 08:58 Dose: Not Given Aspirin (Aspirin 81 Mg Chew) 81 mg PO QAM [facility] Stop: 06/28/23 08:59 Last Admin: 06/11/23 08:58 Dose: Not Given Betaxolol HCl (Betaxolol Hcl 0.5% Op 5 Ml Btl) 1 drops OPL BID [facility] Stop: 06/28/23 08:59 Last Admin: 06/11/23 08:59 Dose: 1 drops Clopidogrel Bisulfate (Clopidogrel Bisulfate 75 Mg Tab) 75 mg PO QAM [facility] Stop: 06/28/23 08:59 Last Admin: 06/11/23 08:58 Dose: Not Given Docusate Sodium (Docusate Sodium 100 Mg Cap) 100 mg PO BID [facility] Stop: 07/02/23 08:59 Last Admin: 06/11/23 08:58 Dose: Not Given Ferrous Sulfate (Ferrous Sulfate 325 Mg Tab) 325 mg PO QDL [facility] Stop: 06/28/23 11:29 Last Admin: 06/11/23 12:37 Dose: Not Given Fluconazole (Fluconazole 100 Mg Tab) 300 mg PO Q24H [facility] Stop: 06/16/23 12:59 Last Admin: 06/11/23 12:38 Dose: 300 mg Gabapentin (Gabapentin 300 Mg Cap) 300 mg PO BID [facility] Stop: 06/28/23 08:59 Last Admin: 06/11/23 08:53 Dose: 300 mg Guaifenesin (Guaifenesin 600 Mg Tabcr) 1,200 mg PO Q12 [facility] Stop: 07/09/23 20:59 Last Admin: 06/11/23 08:58 Dose: Not Given Hydromorphone HCl (Hydromorphone Hcl 2 Mg Tab) 2 mg PO Q3H PRN PRN Reason: Moderate Pain (Scale 4, 5, 6) Stop: 06/24/23 15:29 Hydromorphone HCl (Hydromorphone Hcl 4 Mg Tab) 4 mg PO Q3H PRN PRN Reason: Severe Pain (Scale 7, 8, 9,10) Stop: 06/24/23 15:29 Last Admin: 06/10/23 21:58 Dose: 4 mg Hydroxychloroquine Sulfate (Hydroxychloroquine Sulfate 200 Mg Tab) 400 mg PO HS [facility] Stop: 06/28/23 20:59 Last Admin: 06/10/23 20:07 Dose: 400 mg Hyoscyamine (Hyoscyamine Sulfate 0.125 Mg Tab) 0.125 mg SL Q4H PRN PRN Reason: Secretions or Pulm Congestion Stop: 07/10/23 15:24 Ertapenem 1,000 mg/ Syringe 10 mls @ 2 mls/min IV Q24H [facility] Stop: 06/12/23 09:04 Last Admin: 06/11/23 09:12 Dose: 2 mls/min Lorazepam 0.5 mg/ Syringe 0.5 mls @ 2 mls/min IV Q4H PRN; Protocol PRN Reason: Anxiety/Agitation Stop: 07/10/23 15:24 Latanoprost (Latanoprost 0.005% Op Soln 2.5 Ml Btl) 1 drops OPB PM [facility] Stop: 06/28/23 20:59 Last Admin: 06/10/23 20:08 Dose: 1 drops Levothyroxine Sodium (Levothyroxine Sodium 125 Mcg Tablet) 125 mcg PO DAILYBB [facility] Stop: 06/28/23 06:29 Last Admin: 06/11/23 06:38 Dose: 125 mcg Lorazepam (Lorazepam 0.5 Mg Tab) 0.5 mg PO Q4H PRN PRN Reason: Anxiety/Agitation Stop: 07/10/23 15:24 Melatonin (Melatonin 3 Mg Tab) 3 mg PO HS PRN PRN Reason: Sleep Stop: 07/08/23 21:04 Last Admin: 06/10/23 21:58 Dose: 3 mg Metoprolol Succinate (Metoprolol Succ 25mg Ext Rel Tab) 25 mg PO BID [facility] Stop: 07/07/23 20:59 Last Admin: 06/11/23 08:59 Dose: Not Given Miconazole Nitrate (Miconazole Nitrate Powder 85 Gm) 1 appln EXT BID [facility] Stop: 07/08/23 20:59 Last Admin: 06/11/23 09:13 Dose: 1 appln Pantoprazole Sodium (Pantoprazole 40 Mg Tab) 40 mg PO DAILY [facility] Stop: 06/28/23 08:59 Last Admin: 06/11/23 08:57 Dose: 40 mg Polyethylene Glycol (Polyethylene (Miralax) 17 Gm Pack) 17 gm PO DAILY PRN PRN Reason: Constipation Stop: 07/02/23 07:46 Prednisone (Prednisone 5 Mg Tab) 5 mg PO QAM [facility] Stop: 06/28/23 08:59 Last Admin: 06/04/23 08:52 Dose: 5 mg Sertraline HCl (Sertraline Hcl 50 Mg Tablet) 25 mg PO DAILY [facility] Stop: 06/28/23 08:59 Last Admin: 06/11/23 08:54 Dose: 25 mg (1) Sepsis Sepsis acute organ dysfunction status: unspecified Sepsis type: sepsis due to unspecified organism Qualified Code(s): A41.9 - Sepsis, unspecified organism
[2023-06-11] MEDS: HYOSCYAMINE SULFATE 0.125 MG TAB SL PRN (20:26)
[2023-06-11] MEDS: PROMETHAZINE HCL 12.5 MG in SODIUM CHLORIDE 0.9% 50 ML IV PRN (21:32)
[2023-06-12 06:39] LABS: Basophils # (auto) 0.07 K/uL (0.00-0.20); Basophils % (auto) 0.7 %; Eosinophils # (auto) 0.02 K/uL (0.00-0.50); Eosinophils % (auto) 0.2 %; Hematocrit (blood only) 29.3 % (37.0-47.0); Immature Granulocytes % (auto) 0.9 %; Lymphocytes # (auto) 0.78 K/uL (1.20-3.40); Lymphocytes % (auto) 7.3 %; Mean Corpuscular Hgb Conc 30.7 g/dL (32.0-36.0); Mean Platelet Volume 11.2 fL (9.4-12.4); Monocytes # (auto) 1.03 K/uL (0.11-0.59); Monocytes % (auto) 9.6 %; Neutrophils # (auto) 8.72 K/uL (1.40-6.50); Neutrophils % (auto) 81.3 %; Platelet Count 138 K/uL (130-400); RDW Coefficient of Variation 20.5 % (11.5-14.5); RDW Standard Deviation 66.6 fL (36.4-46.3); Red Blood Count 3.22 M/uL (4.20-5.40); White Blood Count 10.72 K/ul (4.8-10.8)
[2023-06-12 07:00] LABS: Anisocytosis Present; Polychromasia 1+; Tear Drop Cells 1+
[2023-06-12 07:17] LABS: Albumin Level 2.6 gm/dl (3.4-5.0); Bilirubin,Total 0.9 mg/dl (0.2-1.0); Calcium 8.2 mg/dl (8.6-10.3); Magnesium 2.1 mg/dl (1.7-2.4); Potassium 3.2 mmol/L (3.5-5.1)
[2023-06-12 07:23] LABS: Albumin Globulin Ratio 0.8 (0.9-2); BUN Creatinine Ratio 43.7 (10-20); Creatinine Clr Calc Pharmacy 28.7 ml/min; Est GFR (African American) 28.2 ml/min; Est GFR (Non-African American) 24.3 ml/min; Globulin 3.4 gm/dl (2.5-4.0); Phosphorus 4.6 mg/dl (2.5-4.9)
[2023-06-12] MEDS: D5W AND NSS 1,000 ML IV SCH (14:39)
--- NOTE | 2023-06-12 16:29 | Hospitalist Progress Note ---
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, generalized osteoarthritis, open-angle glaucoma, iron deficiency anemia, thrombocytopenia, history of kidney stones who lives at home with her presents with nausea vomiting and diarrhea going for last few days Found to be in sepsis and UTI and kidney stone Multiple comorbid conditions as mentioned below She remains critical but stable as of 06/11/2023 Will continue current aggressive management including blood test and keeping in loop with the family members and updating them regularly Will see if there is any improvement for the next 2 to 3 days before she could be moved for comfort care and/or hospice care All the questions by the family members were answered Condition has deteriorated-she has not been able to swallow anything without aspiration, remains generally extremely weak and lethargic, kidney function has been deteriorating, respiratory secretions symptoms are worsening Remains conversant and critical but stable Discussed again with the family members and kept her n.p.o., minimal intravenous hydration and supportive medications for pain, nausea and vomiting and for excessive secretion Prognosis remains extremely poor-below are the progress note since admission Sepsis Complicated UTI Lactic acidosis Fungemia H/O ESBL Proteus Thrombocytopenia --CT abd: Partially obstructing stone in the LEFT renal pelvis measures 8 mm. Cholecystectomy clips. Atrophy of the RIGHT kidney with a right-sided nerve ureteral stent. Bilateral renal cysts. Hysterectomy. Diverticulosis, without acute diverticulitis. No small bowel obstruction. No free intraperitoneal air. --S/p Cystoscopy with bilateral retrograde pyelogram, left ureteral dilation, Left Ureteral Stent Placement, Right Ureteral Stent Exchange by Urology on 05/30/23 by -- Blood culture from 05/28: Gram-positive cocci in clusters--Likely Contaminat ion --Repeat Blood Cx: 05/30: Growing yeast, Soniya: Likely transient from urological procedure/instrumentation -- Urine culture 05/28: 3 types of organisms. (Likely contaminant) -- Repeat urine culture 05/30: Soniya --ECHO: Mild concentric LVH. Severe diffuse left ventricular hypokinesis with focal hypokinesis in the basal inferior wall. EF 25 to 30%. Left atrium is mildly dilated. Gradient is normal for this prosthetic aortic valve. No significant prosthetic regurgitation. Severe mitral annular calcification. No evidence of valvular vegetation within the limitations of the imaging modality. Compared to prior echo in December 2022, left ventricular ejection fraction 30% at that time. -- Appreciate urology input, needs follow-up with urology on discharge -- Continue IV ertapenem--last day of treatment 06/10/2023 --IV Caspofungin changed to fluconazole--last day of treatment 06/15/2023 Final recommendations to be followed with ID. Leukocytosis, thrombocytopenia improving Repeat blood cultures from 06/02/23:no growth Repeat CXR on 06/04 showed no signs of pneumonia, pleural effusion Discussed with ID Dr. Astudillo--recommends to continue IV ertapenem and fluconazole to complete 2 weeks duration Appreciate ID input and recommendation Needs follow-up with urology on discharge Patient remains critical but stable Discussed with the family members and answered all of their questions Plan is to continue with the current management aggressively and see how she does for the next 2 to 3 days Family members will be updated regularly/daily ALONA on CKD stage III Likely ATN Volume overload Baseline creatinine around 1 Cr 1.5 today Hold home diuretics Continue IV Bumex per nephrology Monitor volume status, renal function Avoid nephrotoxic agents as able Appreciate nephrology input Increased Bumex to 4 mg every 8 hours, added dose of metolazone today Nephrology following No significant improvement despite aggressive IV diuresis Appreciate palliative care input and recommendation-recommended for comfort care Long discussion with the family members and the patient will be treated aggressively for the next 2 to 3 days to see if there is any improvement before putting her on to comfort care Hypokalemia Secondary to IV diuretics Monitor and replete electrolytes as needed URI --CXR:No acute cardiopulmonary findings. No change in appearance of the chest. -- BioFire positive for RSV No pneumonia on repeat imaging Saturating well on room air Conservative management Added flutter, Mucinex, hypertonic saline nebs Clinically better denies any acute respiratory distress at rest H/O CAD s/p stent H/O systolic and diastolic CHF ECHO as above Troponin elevation likely demand ischemia in setting of worsening renal function, CHF, volume overload Appreciate Cardiology Input Continue Aspirin, Plavix and statin and metoprolol Had pacemaker interrogation Chronic elevation of the troponin but doubt any ACS and that was explained to the family members PAF Tachybradycardia syndrome SVT with aberrant conduction S/p pacemaker On Metoprolol Not on anticoagulation due to GI bleed Metoprolol succinate dose increased to 25 mg twice a day History of TIA On aspirin and Plavix and statin Obstructive sleep apnea On CPAP nightly History of rheumatoid arthritis Continue Plaquenil and prednisone 5 mg daily Hypothyroidism Continue levothyroxine DM II HbA1c 7.3 Continue insulin/Sliding scale Monitor H/O Hepatocellular carcinoma S/P embolization Currently following with heme-onc Thrombocytopenia Chronic monitor Severe aortic stenosis S/p TAVR DVT Px: Heparin SQ CODE STATUS Full code for now Palliative care plans to readdress goals of care tomorrow Admission and Anticipated Discharge Date Admission Date: May 29, 2023 Subjective 06/11/2023 The patient was seen and examined in presence of the family members The patient remains very weak and lethargic and very critical Complains to have nausea and abdominal discomfort/pain but denies any other acute distress 06/12/2023 The patient was seen and examined in medical floor in presence of the family members Her condition has deteriorated She has not been able to swallow anything without aspiration She remains generally weak and is still communicating normally No acute distress at rest Review of Systems Review of Systems: All systems reviewed and are unremarkable except as noted below Physical Exam Physical Exam: Lying in bed without any acute distress Constitutional: well developed, well nourished, + ill appearing and + obese Eyes: PERRL, conjunctivae normal, anicteric sclerae ENMT: external ear and nose normal, oropharynx normal Neck: trachea midline, no thyromegaly Respiratory: no respiratory distress Auscultation: + diminished lung sounds, + crackles (With collaterals) and + wheezes Cardiovascular: Rate/Rhythm: regular rate and regular rhythm; not tachycardic Heart Sounds: normal S1, normal S2 and + murmur (2/6 ESM over precordium) Extremities: + edema (Trace to 1+ edema bilaterally) Gastrointestinal (Abdomen): Inspection/Auscultation: + abdomen distended and normal bowel sounds Percussion/Palpation: + abdomen tender (Mildly tender all over) and abdomen soft Neurologic: moves all extremities; no focal motor deficits Alert and awake Lymphatic: no cervical or axillary lymphadenopathy Results & Data Results & Data Vital Signs (Past 12 Hours) Vital Signs O2 Del Method 06/12/23 09:00 Room Air Laboratory Results Short CBC 06/12/23 Range/Units 05:52 WBC 10.72 (4.8-10.8) K/ul Hgb 9.0 L (12.0-16.0) g/dl Hct 29.3 L (37.0-47.0) % Plt Count 138 (130-400) K/uL BMP 06/12/23 05:52 Sodium 135 L Potassium 3.2 L Chloride 96 L Carbon Dioxide 34 H BUN 87 H Creatinine 1.99 H D Glucose 83 Calcium 8.2 L Liver Function 06/12/23 Range/Units 05:52 Total Bilirubin 0.9 (0.2-1.0) mg/dl AST 41 H (13-39) U/L ALT 25 (7-52) U/L Alkaline Phosphatase 210 H (34-104) U/L Albumin 2.6 L (3.4-5.0) gm/dl Medications Administered Current Inpatient Medications Betaxolol HCl (Betaxolol Hcl 0.5% Op 5 Ml Btl) 1 drops OPL BID [facility] Stop: 06/28/23 08:59 Last Admin: 06/12/23 09:07 Dose: 1 drops Hyoscyamine (Hyoscyamine Sulfate 0.125 Mg Tab) 0.125 mg SL Q4H PRN PRN Reason: Secretions or Pulm Congestion Stop: 07/10/23 15:24 Last Admin: 06/11/23 20:26 Dose: 0.125 mg Lorazepam 0.5 mg/ Syringe 0.5 mls @ 2 mls/min IV Q4H PRN; Protocol PRN Reason: Anxiety/Agitation Stop: 07/10/23 15:24 Promethazine HCl 12.5 mg/ (Sodium Chloride) 50.5 mls @ 202 mls/hr IV Q6H PRN PRN Reason: Nausea And Vomiting Stop: 07/11/23 20:51 Last Infusion: 06/11/23 21:47 Dose: Infused Dextrose/Sodium Chloride (D5w And Nss) 1,000 mls @ 70 mls/hr IV .[id number] [facility] Stop: 07/12/23 14:14 Last Admin: 06/12/23 14:39 Dose: 70 mls/hr Latanoprost (Latanoprost 0.005% Op Soln 2.5 Ml Btl) 1 drops OPB PM [facility] Stop: 06/28/23 20:59 Last Admin: 06/11/23 19:55 Dose: 1 drops Miconazole Nitrate (Miconazole Nitrate Powder 85 Gm) 1 appln EXT BID [facility] Stop: 07/08/23 20:59 Last Admin: 06/12/23 09:08 Dose: 1 appln Prednisone (Prednisone 5 Mg Tab) 5 mg PO QAM [facility] Stop: 06/28/23 08:59 Last Admin: 06/04/23 08:52 Dose: 5 mg Sertraline HCl (Sertraline Hcl 50 Mg Tablet) 25 mg PO DAILY [facility] Stop: 06/28/23 08:59 Last Admin: 06/12/23 09:07 Dose: 25 mg (1) Sepsis Sepsis acute organ dysfunction status: unspecified Sepsis type: sepsis due to unspecified organism Qualified Code(s): A41.9 - Sepsis, unspecified organism
[2023-06-12] MEDS: LORazepam 0.5 MG in SYRINGE 0.25 ML IV PRN (23:54)
[2023-06-13] MEDS: HYDROmorphone INJ 0.5 MG/0.5 ML SYR IV PRN (10:22)
--- NOTE | 2023-06-13 16:14 | Hospitalist Progress Note ---
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, generalized osteoarthritis, open-angle glaucoma, iron deficiency anemia, thrombocytopenia, history of kidney stones who lives at home with her presents with nausea vomiting and diarrhea going for last few days Found to be in sepsis and UTI and kidney stone Multiple comorbid conditions as mentioned below She remains critical but stable as of 06/11/2023 Will continue current aggressive management including blood test and keeping in loop with the family members and updating them regularly Will see if there is any improvement for the next 2 to 3 days before she could be moved for comfort care and/or hospice care All the questions by the family members were answered Condition has deteriorated-she has not been able to swallow anything without aspiration, remains generally extremely weak and lethargic, kidney function has been deteriorating, respiratory secretions symptoms are worsening Remains conversant and critical but stable Discussed again with the family members and kept her n.p.o., minimal intravenous hydration and supportive medications for pain, nausea and vomiting and for excessive secretion Prognosis remains extremely poor-below are the progress note since admission Condition deteriorated and the patient has been kept comfortable with symptom atic medications-discussed with the family members and will continue to discuss Progress note since admission as below Sepsis Complicated UTI Lactic acidosis Fungemia H/O ESBL Proteus Thrombocytopenia --CT abd: Partially obstructing stone in the LEFT renal pelvis measures 8 mm. Cholecystectomy clips. Atrophy of the RIGHT kidney with a right-sided nerve ureteral stent. Bilateral renal cysts. Hysterectomy. Diverticulosis, without acute diverticulitis. No small bowel obstruction. No free intraperitoneal air. --S/p Cystoscopy with bilateral retrograde pyelogram, left ureteral dilation, Left Ureteral Stent Placement, Right Ureteral Stent Exchange by Urology on 05/30/23 by -- Blood culture from 05/28: Gram-positive cocci in clusters--Likely Contamination --Repeat Blood Cx: 05/30: Growing yeast, Soniya: Likely transient from urological procedure/instrumentation -- Urine culture 05/28: 3 types of organisms. (Likely contaminant) -- Repeat urine culture 05/30: Soniya --ECHO: Mild concentric LVH. Severe diffuse left ventricular hypokinesis with focal hypokinesis in the basal inferior wall. EF 25 to 30%. Left atrium is mildly dilated. Gradient is normal for this prosthetic aortic valve. No significant prosthetic regurgitation. Severe mitral annular calcification. No evidence of valvular vegetation within the limitations of the imaging modality. Compared to prior echo in December 2022, left ventricular ejection fraction 30% at that time. -- Appreciate urology input, needs follow-up with urology on discharge -- Continue IV ertapenem--last day of treatment 06/10/2023 --IV Caspofungin changed to fluconazole--last day of treatment 06/15/2023 Final recommendations to be followed with ID. Leukocytosis, thrombocytopenia improving Repeat blood cultures from 06/02/23:no growth Repeat CXR on 06/04 showed no signs of pneumonia, pleural effusion Discussed with ID Dr. Astudillo--recommends to continue IV ertapenem and fluconazole to complete 2 weeks duration Appreciate ID input and recommendation Needs follow-up with urology on discharge Patient remains critical but stable Discussed with the family members and answered all of their questions Plan is to continue with the current management aggressively and see how she does for the next 2 to 3 days Family members will be updated regularly/daily ALONA on CKD stage III Likely ATN Volume overload Baseline creatinine around 1 Cr 1.5 today Hold home diuretics Continue IV Bumex per nephrology Monitor volume status, renal function Avoid nephrotoxic agents as able Appreciate nephrology input Increased Bumex to 4 mg every 8 hours, added dose of metolazone today Nephrology following No significant improvement despite aggressive IV diuresis Appreciate palliative care input and recommendation-recommended for comfort care Long discussion with the family members and the patient will be treated aggressively for the next 2 to 3 days to see if there is any improvement before putting her on to comfort care Hypokalemia Secondary to IV diuretics Monitor and replete electrolytes as needed URI --CXR:No acute cardiopulmonary findings. No change in appearance of the chest. -- BioFire positive for RSV No pneumonia on repeat imaging Saturating well on room air Conservative management Added flutter, Mucinex, hypertonic saline nebs Clinically better denies any acute respiratory distress at rest H/O CAD s/p stent H/O systolic and diastolic CHF ECHO as above Troponin elevation likely demand ischemia in setting of worsening renal function, CHF, volume overload Appreciate Cardiology Input Continue Aspirin, Plavix and statin and metoprolol Had pacemaker interrogation Chronic elevation of the troponin but doubt any ACS and that was explained to the family members PAF Tachybradycardia syndrome SVT with aberrant conduction S/p pacemaker On Metoprolol Not on anticoagulation due to GI bleed Metoprolol succinate dose increased to 25 mg twice a day History of TIA On aspirin and Plavix and statin Obstructive sleep apnea On CPAP nightly History of rheumatoid arthritis Continue Plaquenil and prednisone 5 mg daily Hypothyroidism Continue levothyroxine DM II HbA1c 7.3 Continue insulin/Sliding scale Monitor H/O Hepatocellular carcinoma S/P embolization Currently following with heme-onc Thrombocytopenia Chronic monitor Severe aortic stenosis S/p TAVR DVT Px: Heparin SQ CODE STATUS Full code for now Palliative care plans to readdress goals of care tomorrow Admission and Anticipated Discharge Date Admission Date: May 29, 2023 Subjective 06/11/2023 The patient was seen and examined in presence of the family members The patient remains very weak and lethargic and very critical Complains to have nausea and abdominal discomfort/pain but denies any other acute distress 06/12/2023 The patient was seen and examined in medical floor in presence of the family members Her condition has deteriorated She has not been able to swallow anything without aspiration She remains generally weak and is still communicating normally No acute distress at rest 06/13/2023 The patient was seen and examined in medical floor in presence of the family members She has been deteriorating Confused at times Asking for more pain medications She will be kept comfortable Review of Systems Review of Systems: All systems reviewed and are unremarkable except as noted below Physical Exam Physical Exam: Lying in bed without any acute distress Constitutional: well developed, well nourished, + ill appearing and + obese Eyes: PERRL, conjunctivae normal, anicteric sclerae ENMT: external ear and nose normal, oropharynx normal Neck: trachea midline, no thyromegaly Respiratory: no respiratory distress Auscultation: + diminished lung sounds, + crackles (With collaterals) and + wheezes Cardiovascular: Rate/Rhythm: regular rate and regular rhythm; not tachycardic Heart Sounds: normal S1, normal S2 and + murmur (2/6 ESM over precordium) Extremities: + edema (Trace to 1+ edema bilaterally) Gastrointestinal (Abdomen): Inspection/Auscultation: + abdomen distended and normal bowel sounds Percussion/Palpation: + abdomen tender (Mildly tender all over) and abdomen soft Neurologic: normal touch/pain/proprioception and moves all extremities; no focal motor deficits Lymphatic: no cervical or axillary lymphadenopathy Results & Data Results & Data Vital Signs (Past 12 Hours) Vital Signs Temp Pulse Resp BP Pulse Ox O2 Del Method 06/13/23 14:22 36.4 C L 62 16 109/66 91 Room Air 06/13/23 08:09 Room Air Medications Administered Current Inpatient Medications Betaxolol HCl (Betaxolol Hcl 0.5% Op 5 Ml Btl) 1 drops OPL BID LIBBY Stop: 06/28/23 08:59 Last Admin: 06/13/23 08:16 Dose: 1 drops Hydromorphone HCl (Hydromorphone Inj 0.5 Mg/0.5 Ml Syr) 0.25 mg IV Q3H PRN PRN Reason: Pain Stop: 06/27/23 09:39 Last Admin: 06/13/23 16:10 Dose: 0.25 mg Hyoscyamine (Hyoscyamine Sulfate 0.125 Mg Tab) 0.125 mg SL Q4H PRN PRN Reason: Secretions or Pulm Congestion Stop: 07/10/23 15:24 Last Admin: 06/13/23 08:41 Dose: 0.125 mg Lorazepam 0.5 mg/ Syringe 0.5 mls @ 2 mls/min IV Q4H PRN; Protocol PRN Reason: Anxiety/Agitation Stop: 07/10/23 15:24 Last Admin: 06/12/23 23:54 Dose: 2 mls/min Promethazine HCl 12.5 mg/ (Sodium Chloride) 50.5 mls @ 202 mls/hr IV Q6H PRN PRN Reason: Nausea And Vomiting Stop: 07/11/23 20:51 Last Infusion: 06/13/23 11:18 Dose: Infused Dextrose/Sodium Chloride (D5w And Nss) 1,000 mls @ 70 mls/hr IV .[id number] LIBBY Stop: 07/12/23 14:14 Last Admin: 06/13/23 05:05 Dose: 70 mls/hr Latanoprost (Latanoprost 0.005% Op Soln 2.5 Ml Btl) 1 drops OPB PM LIBBY Stop: 06/28/23 20:59 Last Admin: 06/12/23 20:06 Dose: 1 drops Miconazole Nitrate (Miconazole Nitrate Powder 85 Gm) 1 appln EXT BID LIBBY Stop: 07/08/23 20:59 Last Admin: 06/13/23 08:16 Dose: 1 appln Prednisone (Prednisone 5 Mg Tab) 5 mg PO QAM LIBBY Stop: 06/28/23 08:59 Last Admin: 06/04/23 08:52 Dose: 5 mg Sertraline HCl (Sertraline Hcl 50 Mg Tablet) 25 mg PO DAILY LIBBY Stop: 06/28/23 08:59 Last Admin: 06/13/23 08:38 Dose: Not Given (1) Sepsis Sepsis acute organ dysfunction status: unspecified Sepsis type: sepsis due to unspecified organism Qualified Code(s): A41.9 - Sepsis, unspecified organism
--- NOTE | 2023-06-14 15:50 | Hospitalist Progress Note ---
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, generalized osteoarthritis, open-angle glaucoma, iron deficiency anemia, thrombocytopenia, history of kidney stones who lives at home with her presents with nausea vomiting and diarrhea going for last few days Found to be in sepsis and UTI and kidney stone Multiple comorbid conditions as mentioned below She remains critical but stable as of 06/11/2023 Will continue current aggressive management including blood test and keeping in loop with the family members and updating them regularly Will see if there is any improvement for the next 2 to 3 days before she could be moved for comfort care and/or hospice care All the questions by the family members were answered Condition has deteriorated-she has not been able to swallow anything without aspiration, remains generally extremely weak and lethargic, kidney function has been deteriorating, respiratory secretions symptoms are worsening Remains conversant and critical but stable Discussed again with the family members and kept her n.p.o., minimal intravenous hydration and supportive medications for pain, nausea and vomiting and for excessive secretion Prognosis remains extremely poor-below are the progress note since admission Condition deteriorated and the patient has been kept comfortable with symptom atic medications-discussed with the family members and will continue to discuss Condition has been deteriorating Remains confused No distress at rest and will give her comfortable Discussed with the family members Progress note since admission as below Sepsis Complicated UTI Lactic acidosis Fungemia H/O ESBL Proteus Thrombocytopenia --CT abd: Partially obstructing stone in the LEFT renal pelvis measures 8 mm. Cholecystectomy clips. Atrophy of the RIGHT kidney with a right-sided nerve ureteral stent. Bilateral renal cysts. Hysterectomy. Diverticulosis, without acute diverticulitis. No small bowel obstruction. No free intraperitoneal air. --S/p Cystoscopy with bilateral retrograde pyelogram, left ureteral dilation, Left Ureteral Stent Placement, Right Ureteral Stent Exchange by Urology on 05/30/23 by -- Blood culture from 05/28: Gram-positive cocci in clusters--Likely Contamination --Repeat Blood Cx: 05/30: Growing yeast, Soniya: Likely transient from urological procedure/instrumentation -- Urine culture 05/28: 3 types of organisms. (Likely contaminant) -- Repeat urine culture 05/30: Soniya --ECHO: Mild concentric LVH. Severe diffuse left ventricular hypokinesis with focal hypokinesis in the basal inferior wall. EF 25 to 30%. Left atrium is mildly dilated. Gradient is normal for this prosthetic aortic valve. No significant prosthetic regurgitation. Severe mitral annular calcification. No evidence of valvular vegetation within the limitations of the imaging modality. Compared to prior echo in December 2022, left ventricular ejection fraction 30% at that time. -- Appreciate urology input, needs follow-up with urology on discharge -- Continue IV ertapenem--last day of treatment 06/10/2023 --IV Caspofungin changed to fluconazole--last day of treatment 06/15/2023 Final recommendations to be followed with ID. Leukocytosis, thrombocytopenia improving Repeat blood cultures from 06/02/23:no growth Repeat CXR on 06/04 showed no signs of pneumonia, pleural effusion Discussed with ID Dr. Astudillo--recommends to continue IV ertapenem and fluconazole to complete 2 weeks duration Appreciate ID input and recommendation Needs follow-up with urology on discharge Patient remains critical but stable Discussed with the family members and answered all of their questions Plan is to continue with the current management aggressively and see how she does for the next 2 to 3 days Family members will be updated regularly/daily ALONA on CKD stage III Likely ATN Volume overload Baseline creatinine around 1 Cr 1.5 today Hold home diuretics Continue IV Bumex per nephrology Monitor volume status, renal function Avoid nephrotoxic agents as able Appreciate nephrology input Increased Bumex to 4 mg every 8 hours, added dose of metolazone today Nephrology following No significant improvement despite aggressive IV diuresis Appreciate palliative care input and recommendation-recommended for comfort care Long discussion with the family members and the patient will be treated aggressively for the next 2 to 3 days to see if there is any improvement before putting her on to comfort care Hypokalemia Secondary to IV diuretics Monitor and replete electrolytes as needed URI --CXR:No acute cardiopulmonary findings. No change in appearance of the chest. -- BioFire positive for RSV No pneumonia on repeat imaging Saturating well on room air Conservative management Added flutter, Mucinex, hypertonic saline nebs Clinically better denies any acute respiratory distress at rest H/O CAD s/p stent H/O systolic and diastolic CHF ECHO as above Troponin elevation likely demand ischemia in setting of worsening renal function, CHF, volume overload Appreciate Cardiology Input Continue Aspirin, Plavix and statin and metoprolol Had pacemaker interrogation Chronic elevation of the troponin but doubt any ACS and that was explained to the family members PAF Tachybradycardia syndrome SVT with aberrant conduction S/p pacemaker On Metoprolol Not on anticoagulation due to GI bleed Metoprolol succinate dose increased to 25 mg twice a day History of TIA On aspirin and Plavix and statin Obstructive sleep apnea On CPAP nightly History of rheumatoid arthritis Continue Plaquenil and prednisone 5 mg daily Hypothyroidism Continue levothyroxine DM II HbA1c 7.3 Continue insulin/Sliding scale Monitor H/O Hepatocellular carcinoma S/P embolization Currently following with heme-onc Thrombocytopenia Chronic monitor Severe aortic stenosis S/p TAVR DVT Px: Heparin SQ CODE STATUS Full code for now Palliative care plans to readdress goals of care tomorrow Admission and Anticipated Discharge Date Admission Date: May 29, 2023 Subjective 06/11/2023 The patient was seen and examined in presence of the family members The patient remains very weak and lethargic and very critical Complains to have nausea and abdominal discomfort/pain but denies any other acute distress 06/12/2023 The patient was seen and examined in medical floor in presence of the family members Her condition has deteriorated She has not been able to swallow anything without aspiration She remains generally weak and is still communicating normally No acute distress at rest 06/13/2023 The patient was seen and examined in medical floor in presence of the family members She has been deteriorating Confused at times Asking for more pain medications She will be kept comfortable 06/14/2023 The patient was seen and examined in medical floor in presence of the family members Her condition has gotten worse She remains confused but is still has been talking sometimes reasonably Not in any acute distress Review of Systems Review of Systems: All systems reviewed and are unremarkable except as noted below Physical Exam Physical Exam: Lying in bed without any acute distress Constitutional: well developed, well nourished, + ill appearing and + obese Eyes: PERRL, conjunctivae normal, anicteric sclerae ENMT: external ear and nose normal, oropharynx normal Neck: trachea midline, no thyromegaly Respiratory: no respiratory distress Auscultation: + diminished lung sounds, + crackles (With collaterals) and + wheezes Cardiovascular: Rate/Rhythm: regular rate and regular rhythm; not tachycardic Heart Sounds: normal S1, normal S2 and + murmur (2/6 ESM over precordium) Extremities: + edema (Trace to 1+ edema bilaterally) Gastrointestinal (Abdomen): Inspection/Auscultation: + abdomen distended and n ormal bowel sounds Percussion/Palpation: + abdomen tender (Mildly tender all over) and abdomen soft Neurologic: normal touch/pain/proprioception and moves all extremities; no focal motor deficits Lymphatic: no cervical or axillary lymphadenopathy (1) Sepsis Sepsis acute organ dysfunction status: unspecified Sepsis type: sepsis due to unspecified organism Qualified Code(s): A41.9 - Sepsis, unspecified organism
[2023-06-14] MEDS: HYDROmorphone INJ 0.5 MG/0.5 ML SYR IV STA (20:12)
[2023-06-15] MEDS: GLYCOPYRROLATE 0.2 MG/ML VIAL IV PRN (03:54)
--- NOTE | 2023-06-15 18:11 | Hospitalist Progress Note ---
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, generalized osteoarthritis, open-angle glaucoma, iron deficiency anemia, thrombocytopenia, history of kidney stones who lives at home with her presents with nausea vomiting and diarrhea going for last few days Found to be in sepsis and UTI and kidney stone Sepsis Complicated UTI Lactic acidosis Fungemia H/O ESBL Proteus Thrombocytopenia ALONA on CKD stage III Likely ATN Volume overload Hypokalemia URI due to RSV H/O CAD s/p stent H/O systolic and diastolic CHF PAF Tachybradycardia syndrome SVT with aberrant conduction S/p pacemaker History of TIA Obstructive sleep apnea History of rheumatoid arthritis Hypothyroidism DM II H/O Hepatocellular carcinoma Thrombocytopenia Severe aortic stenosis S/p TAVR Currently on comfort measures only Palliative care on board Prognosis is guarded Admission and Anticipated Discharge Date Admission Date: May 29, 2023 Subjective Patient is seen and examined at bedside States having generalized pain Poor historian Patient's friend at bedside Currently on comfort measures only Review of Systems Review of Systems: All systems reviewed & are unremarkable except as noted in Subjective Physical Exam Physical Exam: Physical Exam: Vitals signs as noted above General Appearance:Obese, no apparent distress, ill appearing Head: normocephalic, Atraumatic Eyes: eyelids remains closed, blind Neck: supple, Trachea midline Respiratory/Chest: Decreased breath sounds, basal crackles, rhonchi, no accessory muscle use Cardiovascular: S1, S2,+ murmur Abdomen/GI:Soft, non tender, Bowel sounds present Extremities/Musculoskeletal:normal inspection, 2+ Pedal edema Neurologic/Psych:AAOX2, grossly no focal neurological deficits Skin: normal color, warm (1) Sepsis Sepsis acute organ dysfunction status: unspecified Sepsis type: sepsis due to unspecified organism Qualified Code(s): A41.9 - Sepsis, unspecified organism
[2023-06-16] MEDS ORDERED: LORazepam 1 MG in SYRINGE 0.25 ML IV PRN (11:42)
[2023-06-16] MEDS: HYDROmorphone INJ 0.5 MG/0.5 ML SYR IV PRN (14:06)
--- NOTE | 2023-06-16 16:24 | Hospitalist Progress Note ---
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, generalized osteoarthritis, open-angle glaucoma, iron deficiency anemia, thrombocytopenia, history of kidney stones who lives at home with her presents with nausea vomiting and diarrhea going for last few days Found to be in sepsis and UTI and kidney stone Sepsis Complicated UTI Lactic acidosis Fungemia H/O ESBL Proteus Thrombocytopenia ALONA on CKD stage III Likely ATN Volume overload Hypokalemia URI due to RSV H/O CAD s/p stent H/O systolic and diastolic CHF PAF Tachybradycardia syndrome SVT with aberrant conduction S/p pacemaker History of TIA Obstructive sleep apnea History of rheumatoid arthritis Hypothyroidism DM II H/O Hepatocellular carcinoma Thrombocytopenia Severe aortic stenosis S/p TAVR Currently on comfort measures only Palliative care on board Prognosis is guarded Adjust comfort medications as needed CODE STATUS DNI DNR Admission and Anticipated Discharge Date Admission Date: May 29, 2023 Subjective Patient is seen and examined at bedside Lethargic during my encounter Unable to obtain any history Discussed with patient's family at bedside On comfort measures only No distress on exam Review of Systems Review of Systems: Unobtainable due to reduced consciousness Physical Exam Physical Exam: Physical Exam: Vitals signs as noted above General Appearance:Obese, no apparent distress, ill appearing, Lethargic Head: normocephalic, Atraumatic Eyes: eyelids remains closed, blind Neck: supple, Trachea midline Respiratory/Chest: Decreased breath sounds, basal crackles, rhonchi, no access ory muscle use Cardiovascular: S1, S2,+ murmur Abdomen/GI:Soft, non tender, Bowel sounds present Extremities/Musculoskeletal:normal inspection, 2+ Pedal edema Neurologic/Psych: Unable to perform complete neurological exam Skin: normal color, warm Results & Data Results & Data Vital Signs (Past 12 Hours) Vital Signs O2 Del Method 06/16/23 10:26 Room Air (1) Sepsis Sepsis acute organ dysfunction status: unspecified Sepsis type: sepsis due to unspecified organism Qualified Code(s): A41.9 - Sepsis, unspecified organism
[2023-06-16] MEDS: LORazepam 1 MG in SYRINGE 0.5 ML IV PRN (23:37)
--- NOTE | 2023-06-17 04:36 | Death Pronouncement Note ---
Date of Service June 17, 2023 Pronouncement Note Admission Date May 29, 2023 Date and Time of Date of : 06/17/23 Time of : 04:45 Summary Discharge summary and certificate to be completed by Dr. Steiner. Additional Data Confirmation of : no pulse, no respirations, no heart sounds and pupils fixed and dilated Attending physician: Gideon Steiner MD
--- NOTE | 2023-06-17 07:33 | Discharge Summary ---
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 Patient complaining of dry mouth. Some mild headache. Currently no chest pain. States gets short of breath on exertion. Patient is legally blind. Has some mild pain on micturating. Mild abdominal discomfort. Temp spike in the ER. She states she ambulates with a walker at home. Currently blood pressure is okay. Past medical history. As mentioned above Past surgical history. Appendectomy. Bilateral carpal tunnel surgery. Cataract surgery. Colonoscopy. Cystoscopy. Left and right heart catheterization. S/p pacemaker. Cystoscopy and stent placement. IR biopsy. IR embolization. Resection of right thyroid lobe. Cholecystectomy. S/p TAVR. Total hysterectomy. Social history. . No smoking. No alcohol use. No drug use. Family history. Father had diabetes. Triglycerides. Peripheral vascular disease. CAD. Mother had CABG and multiple MIs. Diabetes brother has diabetes.. Son has arthritis Admission Exam Per Admitting Provider General- Not in acute distress. Head- atraumatic Eyes- Legally blind. ENT- oropharynx dry Neck- supple, no JVD Lungs- clear to auscultation no wheezing or crackles. Heart- regular rhythm; no murmur, no gallop. Abdomen- normal bowel sounds, soft, nontender, no distension. Extremities- b/l lower extremity present with superficial wounds in shins. No erythema seen. Neuro- alert, oriented no facial palsy; no dysarthria; moves extremities. Skin- warm & dry Principal Diagnosis Sepsis Complicated UTI Lactic acidosis Fungemia H/O ESBL Proteus Thrombocytopenia ALONA on CKD stage III Likely ATN Volume overload Hypokalemia URI due to RSV H/O CAD s/p stent H/O systolic and diastolic CHF PAF Tachybradycardia syndrome SVT with aberrant conduction S/p pacemaker History of TIA Obstructive sleep apnea History of rheumatoid arthritis Hypothyroidism DM II H/O Hepatocellular carcinoma Thrombocytopenia Severe aortic stenosis S/p TAVR Discharge Data Allergies Allergy/AdvReac Type Severity Reaction Status Date / Time cephalexin Allergy Severe Anaphylaxis Verified 05/29/23 02:41 Cephalosporins Allergy Severe Anaphylaxis Verified 05/29/23 02:41 Sulfa (Sulfonamide Allergy Intermediate Hives Verified 05/29/23 02:41 Antibiotics) sulfamethoxazole Allergy Intermediate Hives Verified 05/29/23 02:41 [From Bactrim] trimethoprim [From Bactrim] Allergy Intermediate Hives Verified 05/29/23 02:41 butorphanol AdvReac Intermediate Rapid heart Verified 05/29/23 02:41 ciprofloxacin AdvReac Intermediate Nausea Verified 05/29/23 02:41 Consultations 05/28/23 23:06 ED Decision to Admit Stat 05/29/23 08:00 Consult Urology Routine 05/29/23 08:28 Consult Nephrology Routine 05/31/23 07:54 Consult Cardiology Routine 05/31/23 18:17 Consult Infectious Diseases Routine 06/08/23 11:57 Consult Palliative Care Routine Procedures Performed Operation Date: 05/30/23 07:00 Actual Procedures p Cystoscopy, Left Ureteral Stent Placement, Right Ureteral Stent Exchange - Ernie Johansen, DO Ordered Studies 05/28/23 22:03 CT abd pelvis wo con Stat 05/29/23 04:46 US venous doppler LE BI Routine 05/30/23 12:30 FL retrograde includes kub Routine 06/05/23 16:02 CT Abd and Pelvis [CT abd pelvis wo con] Urgent Laboratory Results WBC 10.72 K/ul (4.8-10.8) 06/12/23 05:52 RBC 3.22 M/uL (4.20-5.40) L 06/12/23 05:52 Hgb 9.0 g/dl (12.0-16.0) L 06/12/23 05:52 POC Hgb 12.2 g/dl (12.0-16.0) 05/28/23 22:00 Hct 29.3 % (37.0-47.0) L 06/12/23 05:52 POC Hct 36 % (37-47) L 05/28/23 22:00 MCV 91.0 fL (80.0-100.0) 06/12/23 05:52 MCH 28.0 pg (25.0-34.0) 06/12/23 05:52 MCHC 30.7 g/dL (32.0-36.0) L 06/12/23 05:52 RDW Std Deviation 66.6 fL (36.4-46.3) H 06/12/23 05:52 RDW Coeff of Juani 20.5 % (11.5-14.5) H 06/12/23 05:52 Plt Count 138 K/uL (130-400) 06/12/23 05:52 MPV 11.2 fL (9.4-12.4) 06/12/23 05:52 Immature Gran % (Auto) 0.9 % 06/12/23 05:52 Neut % (Auto) 81.3 % 06/12/23 05:52 Lymph % (Auto) 7.3 % 06/12/23 05:52 [place] % (Auto) 9.6 % 06/12/23 05:52 Eos % (Auto) 0.2 % 06/12/23 05:52 Baso % (Auto) 0.7 % 06/12/23 05:52 Neut # (Auto) 8.72 K/uL (1.40-6.50) H 06/12/23 05:52 Lymph # (Auto) 0.78 K/uL (1.20-3.40) L 06/12/23 05:52 [place] # (Auto) 1.03 K/uL (0.11-0.59) H 06/12/23 05:52 Eos # (Auto) 0.02 K/uL (0.00-0.50) 06/12/23 05:52 Baso # (Auto) 0.07 K/uL (0.00-0.20) 06/12/23 05:52 Immature Gran # (Auto) 0.10 K/uL (0.01-0.20) 06/12/23 05:52 Absolute Nucleated RBC 0.02 K/uL (0.00-0.12) 06/02/23 06:03 Nucleated RBC % (auto) 0.2 % 06/02/23 06:03 Polychromasia 1+ 06/12/23 05:52 Anisocytosis Present 06/12/23 05:52 Tear Drop Cells 1+ 06/12/23 05:52 Ovalocytes 1+ 05/28/23 21:54 Echinocytes 1+ 05/29/23 06:51 APTT 32 Seconds (21-31) H 06/07/23 06:29 PTT Ratio 1.1 06/07/23 06:29 Heparin Anti-Xa, Unfract < 0.10 IU/ml (0.3-0.7) L 06/09/23 05:45 POC Sodium 133 mmol/L (135-144) L 05/28/23 22:00 Sodium 135 mmol/L (136-145) L 06/12/23 05:52 POC Potassium 4.3 mmol/L (3.3-5.0) 05/28/23 22:00 Potassium 3.2 mmol/L (3.5-5.1) L 06/12/23 05:52 POC Chloride 99 mmol/L (101-112) L 05/28/23 22:00 Chloride 96 mmol/L (98-107) L 06/12/23 05:52 Carbon Dioxide 34 mmol/L (21-32) H 06/12/23 05:52 POC Total CO2 22 mmol/L (24-31) L 05/28/23 22:00 Anion Gap 5 (3-11) 06/12/23 05:52 POC Anion Gap 17.0 mmol/L (16-25) 05/28/23 22:00 POC BUN 53 mg/dl (7-18) H 05/28/23 22:00 BUN 87 mg/dl (6-23) H 06/12/23 05:52 Creatinine 1.99 mg/dl (0.6-1.2) H D 06/12/23 05:52 POC Creatinine 1.9 mg/dl (0.6-1.3) H 05/28/23 22:00 Est Cr Clr Drug Dosing 28.7 ml/min 06/12/23 05:52 Est GFR ( Amer) 28.2 ml/min 06/12/23 05:52 Est GFR (Non-Af Amer) 24.3 ml/min 06/12/23 05:52 BUN/Creatinine Ratio 43.7 (10-20) H 06/12/23 05:52 Glucose 83 mg/dl (70-99(Fasting)) 06/12/23 05:52 POC Glucose 114 mg/dl (70-99) H 06/10/23 11:30 POC Glucose (other) 147 mg/dl (70-99) H 05/28/23 22:00 Estimat Average Glucose 163 mg/dl 05/29/23 06:51 Hemoglobin A1c 7.3 % (4.5-5.6) H 05/29/23 06:51 Lactate 2.1 mmol/L (0.4-2.0) H* 05/29/23 06:56 Calcium 8.2 mg/dl (8.6-10.3) L 06/12/23 05:52 POC Ioniz Calcium [place] 1.12 mmol/l (1.12-1.32) 05/28/23 22:00 Phosphorus 4.6 mg/dl (2.5-4.9) 06/12/23 05:52 Magnesium 2.1 mg/dl (1.7-2.4) 06/12/23 05:52 Total Bilirubin 0.9 mg/dl (0.2-1.0) 06/12/23 05:52 Direct Bilirubin 0.9 mg/dl (0-0.2) H 05/28/23 21:54 AST 41 U/L (13-39) H 06/12/23 05:52 ALT 25 U/L (7-52) 06/12/23 05:52 Alkaline Phosphatase 210 U/L (34-104) H 06/12/23 05:52 Troponin I High Sens 68.0 pg/ml (0-14) H* 06/07/23 06:29 Total Protein 6.0 gm/dl (6.0-8.3) 06/12/23 05:52 Albumin 2.6 gm/dl (3.4-5.0) L 06/12/23 05:52 Globulin 3.4 gm/dl (2.5-4.0) 06/12/23 05:52 Albumin/Globulin Ratio 0.8 (0.9-2) L 06/12/23 05:52 Lipase 44 U/L (11-82) 06/06/23 07:48 Procalcitonin 24.00 ng/ml (0-0.5) H 05/30/23 03:34 Urine Color Yellow 05/28/23 23:18 Urine Appearance Cloudy (Clear) A 05/28/23 23:18 Urine pH 5.5 (4.5-7.5) 05/28/23 23:18 Ur Specific [place] 1.010 (1.000-1.030) 05/28/23 23:18 Urine Protein Negative (Negative) 05/28/23 23:18 Urine Glucose (UA) Negative (Negative) 05/28/23 23:18 Urine Ketones Negative (Negative) 05/28/23 23:18 Urine Blood 1+ (Negative) H 05/28/23 23:18 Urine Nitrite Positive (Negative) A 05/28/23 23:18 Urine Bilirubin Negative (Negative) 05/28/23 23:18 Urine Urobilinogen Negative (Negative) 05/28/23 23:18 Ur Leukocyte Esterase 3+ (Negative) H 05/28/23 23:18 Urine WBC (Auto) >30 /hpf (0-5) H 05/28/23 23:18 Urine RBC (Auto) 0-4 /hpf (0-4) 05/28/23 23:18 U Hyaline Cast (Auto) 10-30 /lpf (0-5) H 05/28/23 23:18 U Epithel Cells (Auto) 20-30 /lpf (0-5) H 05/28/23 23:18 Urine Bacteria (Auto) Negative (Negative) 05/28/23 23:18 Urine Yeast Budding (None Prsent) A 05/28/23 23:18 Nasal Screen MRSA (PCR) Negative (Negative) 05/31/23 19:45 Adenovirus (PCR) Not Detected (NotDetected) 05/31/23 10:30 B. pertussis DNA (PCR) Not Detected (NotDetected) 05/31/23 10:30 B.parapertussis DNA PCR Not Detected (NotDetected) 05/31/23 10:30 Soniya albicans (PCR) DETECTED (NotDetected) A 05/30/23 09:40 C. pneumoniae DNA (PCR) Not Detected (NotDetected) 05/31/23 10:30 Coronavirus OC43 (PCR) Not Detected (NotDetected) 05/31/23 10:30 Coronavirus HKU1 (PCR) Not Detected (NotDetected) 05/31/23 10:30 Coronavirus 229E (PCR) Not Detected (NotDetected) 05/31/23 10:30 SARS-CoV-2 (PCR) Not Detected (NotDetected) 05/31/23 10:30 Coronavirus NL63 (PCR) Not Detected (NotDetected) 05/31/23 10:30 Human Metapneumovir PCR Not Detected (NotDetected) 05/31/23 10:30 Influenza Type A (PCR) Not Detected (NotDetected) 05/31/23 10:30 Influenza Type B (PCR) Not Detected (NotDetected) 05/31/23 10:30 M. pneumoniae (PCR) Not Detected (NotDetected) 05/31/23 10:30 Parainfluenza 1 (PCR) Not Detected (NotDetected) 05/31/23 10:30 Parainfluenza 2 (PCR) Not Detected (NotDetected) 05/31/23 10:30 Parainfluenza 3 (PCR) Not Detected (NotDetected) 05/31/23 10:30 Parainfluenza 4 (PCR) Not Detected (NotDetected) 05/31/23 10:30 RSV (PCR) DETECTED (NotDetected) A 05/31/23 10:30 Entero/Rhino (PCR) Not Detected (NotDetected) 05/31/23 10:30 Bld Cult ID Panel PCR See PCR Comment (NotDetected) 05/30/23 09:40 Impressions Venous Doppler Study 05/29/23 04:46 BILATERAL LOWER EXTREMITY VENOUS DOPPLER CLINICAL HISTORY: b/l lower ext edema. dvt? COMPARISON STUDY: Bilateral lower extremity venous ultrasound November 14, 2011. TECHNIQUE: Sonography of the deep venous system of the bilateral lower extremities was performed. Compression and augmentation were evaluated. FINDINGS: The bilateral common femoral, superficial femoral and popliteal veins were compressible. Augmentation was normal. Flow was shown within the deep calf vessels although calf vessels were suboptimally assessed due to wounds and dressings. IMPRESSION: No evidence of deep venous thrombus within the bilateral lower extremities although calf vessels suboptimally assessed. ACT 112: Negative or not required by law. Electronically signed by: Aj Reza M.D. 05/29/2023 7:32 AM Retrograde Pyelogram 05/30/23 12:30 FL retrograde includes kub CLINICAL HISTORY: LEFT STENT PLACENEMTN - RIGHT STENT EXCHANGE COMPARISON STUDY: CT 05/28/2023 FLUOROSCOPY TIME: 145.2 seconds FLUOROSCOPY IMAGES: 5 EXPOSURE DOSE: 68.30 mGy FINDINGS: Right upper quadrant surgical clips. Study is limited secondary to patient body habitus and dilated air-filled loops of large bowel. Bilateral ureteral stents are present which are likely in satisfactory positioning. A catheter projects over the midline pelvis. IMPRESSION: Fluoroscopic assistance as above. ACT 112: Negative or not required by law. Electronically signed by: Luis Enrique Yarbrough M.D. 05/30/2023 2:39 PM KUB X-Ray 06/02/23 07:48 KUB CLINICAL HISTORY: Constipation. COMPARISON STUDY: CT of the abdomen and pelvis May 28, 2023. FINDINGS: There are cholecystectomy clips, Red catheter and bilateral ureteral stents. Prominent gas-filled small bowel loops are present. There is also gas within portions of the colon. The amount of stool is within normal limits. No urinary calculi are identified by radiography. No evidence for free air on supine exam. IMPRESSION: 1. Prominent gas-filled loops of small bowel without convincing evidence for a small bowel obstruction. 2. Amount of stool within normal limits. 3. Bilateral ureteral stents in place. ACT 112: Negative or not required by law. Electronically signed by: Aj Reza M.D. 06/02/2023 9:05 AM Chest X-Ray 06/04/23 09:13 SINGLE VIEW CHEST CLINICAL HISTORY: Leukocytosis. FINDINGS: An AP, portable, upright chest radiograph is compared to study dated 05/28/2023. A 2-lead cardiac pacemaker is unchanged in position. There is evidence of previous cardiac valve surgery. The heart is enlarged noting atherosclerotic calcification of the thoracic aorta. The pulmonary vasculature is noncongestive. Chronic interstitial thickening is similar to previous. There is bibasilar scarring/atelectasis. No airspace consolidation or large pleural effusion is identified. No pneumothorax is seen. The skeletal structures are osteopenic. The bony thorax is grossly intact. Calcific tendinopathy is noted in the left shoulder. IMPRESSION: 1. Cardiomegaly and cardiac pacemaker without radiographic evidence of congestive failure. 2. No airspace consolidation or large pleural effusion is identified. ACT 112: Negative or not required by law. Electronically signed by: Familia Morales M.D. 06/04/2023 9:38 AM Abdomen/Pelvis CT 06/05/23 16:[address] WITHOUT CONTRAST CT DOSE: 1394.82 mGy.cm HISTORY: Generalized abdominal pain. TECHNIQUE: Multiaxial CT images of the abdomen and pelvis were performed without contrast. A dose lowering technique was utilized adhering to the principles of ALARA. COMPARISON STUDY: Abdomen and pelvis CT 05/28/2023. FINDINGS: There are small patchy bibasilar airspace opacities which are new compared to the prior study. This likely represents a pneumonia. No pneumoperitoneum. No pneumatosis. There is an old mild inferior endplate compression deformity at L3, unchanged. Degenerative changes again noted within the lumbar spine. No acute fractures. Old, healed bilateral anterior rib fractures again noted. The heart remains enlarged. Pacemaker wires and an aortic valve prosthesis are again noted. Trace right pleural effusion. Moderate to severe body wall edema most pronounced on the left. Moderate size fat-containing umbilical hernia, unchanged. Heterogeneous appearance to the anterior segment right hepatic lobe again noted. This may represent posttreatment changes related to the previously described right hepatic lobe lesion. Prior cholecystectomy. Trace ascites. The unenhanced spleen and adrenal glands are unremarkable. Mild edema adjacent to the pancreatic tail. Otherwise, the pancreas is unremarkable. No retroperitoneal lymphadenopathy. Calcified plaque within the normal caliber abdominal aorta. No pelvic lymphadenopathy. There is a Red catheter within the decompressed bladder. This likely accounts for the gas within the bladder lumen. Atrophic and malrotated right kidney again noted. Punctate focus of gas within the right renal collecting system is likely due to the right ureteral stent. The right renal stent has been slightly pulled back and now is located within the right renal pelvis. This remains in good position. A left ureteral stent is also in good position. There is a 9 mm stone within the left upper pole infundibulum resulting in mild hydronephrosis of the left upper pole collecting system. This remains unchanged. Prior hysterectomy. Mild pelvic floor collapse. Mild perirectal edema. Suboptimal evaluation for bowel pathology due to the lack of intravenous and oral contrast. However, there are no dilated loops of bowel to suggest an obstruction. There are a few jejunal diverticula again noted. No definite bowel wall thickening. IMPRESSION: 1. New small patchy bibasilar airspace opacities which likely represents a pneumonia. 2. Trace right pleural effusion. 3. Moderate to severe body wall edema. This has progressed in the interval. 4. Trace ascites. 5. No definite bowel wall thickening or obstruction. 6. Mild edema adjacent to the pancreatic tail. This is likely due to the patient's diffuse edematous state. A distal pancreatitis is considered less likely but not entirely excluded. Recommend correlation with pancreatic enzymes. 7. No significant change in the 9 mm obstructing stone within the left upper pole infundibulum resulting in mild hydronephrosis of the left upper pole collecting system. 8. Bilateral ureteral stents appear and good position. 9. Additional findings as described above. ACT 112: Negative or not required by law. Electronically signed by: Nathan Bonilla M.D. 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, generalized osteoarthritis, open-angle glaucoma, iron deficiency anemia, thrombocytopenia, history of kidney stones who lives at home with her presents with nausea vomiting and diarrhea going for last few days Found to be in sepsis and UTI and kidney stone Sepsis Complicated UTI Lactic acidosis Fungemia H/O ESBL Proteus Thrombocytopenia ALONA on CKD stage III Likely ATN Volume overload Hypokalemia URI due to RSV H/O CAD s/p stent H/O systolic and diastolic CHF PAF Tachybradycardia syndrome SVT with aberrant conduction S/p pacemaker History of TIA Obstructive sleep apnea History of rheumatoid arthritis Hypothyroidism DM II H/O Hepatocellular carcinoma Thrombocytopenia Severe aortic stenosis S/p TAVR Currently on comfort measures only Palliative care on board Prognosis is guarded Adjust comfort medications as needed Patient while on comfort measures on 06/17/2023 at 4:45 AM. I did not examine the patient on 06/17/23 CODE STATUS DNI DNR Total Time Total Time Spent Total Time Spent (In Minutes): 25 minutes Discharge Plan Discharge Items Patient Disposition: Other Date/Time: 06/17/23 04:45
== END 2023-06-17 09:30 | disposition expired | DRG 853 ==
LOC: ED 21:08 → EDINP 05-29 04:06 → SUATTDRO 05-29 04:06 → EDINP 05-30 12:25 → 2N 05-30 12:36 → 2S 06-05 21:40 → 3E 06-10 21:11